=== PATIENT | female | born 1955 | race Caucasian/White ===

== ENCOUNTER → 2017-11-23 10:13 | Outpatient (CLI) | payer MEDICARE, SELFPAY ==
[2017-11-23 09:35] VITALS: BP 130/82; BMI 28.7
[2017-11-23 12:22] LABS: Hemoglobin A1c 5.8 % (4.2-6.3)
== END ==
PROVIDERS: Family Provider Internal Medicine; PCP Internal Medicine; Visit Provider Nurse Practitioner Family
DX: R73.9 Hyperglycemia, unspecified (principal)
CPT/HCPCS: 36415; 83036

== ENCOUNTER → 2017-11-25 12:10 | Outpatient (CLI) | payer MEDICARE, SELFPAY ==
[2017-11-23 09:35] VITALS: BP 130/82; BMI 28.7
--- NOTE | 2017-11-25 12:12 | US_ITS ---
STUDY: SUPERFICIAL ULTRASOUND - RIGHT FLANK. REASON FOR EXAM: Female, 62 years old. Palpable abnormality in the right flank. TECHNIQUE: A superficial ultrasound was performed with real-time and static gn-scale imaging. COMPARISON: None. FINDINGS: There is a 1.5 cm x 1.1 cm x 0.8 cm slightly echogenic well-defined nodule deep to the subcutaneous fat corresponding to the palpable abnormality. This most likely represents a small lipoma. US/Other Unlisted US Procedure IMPRESSION: The palpable abnormality most likely corresponds to a small lipoma. Electronically Signed: Tai Montana MD at 13:10 EST Tel [phone], Service support ,
== END ==
PROVIDERS: Family Provider Internal Medicine; PCP Internal Medicine; Visit Provider Nurse Practitioner Family
DX: R19.00 Intra-abdominal and pelvic swelling, mass and lump, unspecified site (principal)
CPT/HCPCS: 76999

== ENCOUNTER → 2018-01-20 09:34 | Outpatient (CLI) | payer MEDICARE, SELFPAY ==
--- NOTE | 2018-01-20 09:36 | CDU_ITS ---
Reason For Study: Carotid stenosis Rt. Velocities/BP Lt. Velocities/BP Prox CCA 69.2/14.7 cm/sec. Prox CCA 66.8/18.2 cm/sec. Mid CCA 66.8/19.3 cm/sec. Mid CCA 65.1/17.6 cm/sec. Dist CCA 55.1/15.2 cm/sec. Dist CCA 56.9/20.5 cm/sec. Prox ICA 63.3/19.9 cm/sec. Prox ICA 58.6/22.9 cm/sec. Mid ICA 57.0/20.7 cm/sec. Mid ICA 79.7/30.5 cm/sec. Dist ICA 45.2/19.1 cm/sec. Dist ICA 79.2/18.2 cm/sec. Rt. ICA/CCA = .95. Lt. ICA/CCA = 1.2. Prox ECA 87.3/14.5 cm/sec. Prox ECA 119.0/18.9 cm/sec. Rt. Vert. 49.8/16.4 cm/sec. Lt. Vert. 45.1/15.2 cm/sec. Right Extracranial There is intimal thickening but no significant atherosclerotic plaque noted in the right common carotid artery. There is heterogeneous, irregular atherosclerotic plaque noted in the right internal carotid artery. There is intimal thickening but no significant atherosclerotic plaque noted in the right external carotid artery. Antegrade flow is noted in the right vertebral artery. Left Extracranial There is intimal thickening but no significant atherosclerotic plaque noted in the left common carotid artery. There is heterogeneous, irregular atherosclerotic plaque noted in the left internal carotid artery. There is heterogeneous, irregular atherosclerotic plaque noted in the left external carotid artery. Antegrade flow is noted in the left vertebral artery. Procedure Carotid Duplex 36826. Exam performed in department. Interpretation Summary Mild (<50%) stenosis right extracranial internal carotid. Mild (<50%) stenosis left extracranial internal carotid. Flow within the vertebral arteries is antegrade bilaterally. Ordering Physician: REMI DESAI Referring Physician: Mayra Fallon Performed By: Tiki Shah RVT
--- NOTE | 2018-01-20 09:36 | ECHOCS_ITS ---
Reason For Study: CAD/ASHD Procedure This was a 2D Doppler, Color Flow transthoracic echocardiogram. Exam performed in department. Left Ventricle Moderate eccentric left ventricular hypertrophy. The estimated ejection fraction is 70 %. Stage 1 diastolic dysfunction. No regional wall motion abnormalities noted. Right Ventricle Normal size and thickness. ICD or pacer leads identified within the right ventricle. Normal systolic function. Atria Normal left atrium. Normal right atrium. Normal atrial septum. Mitral Valve The mitral valve is structurally normal. No prolapse or stenosis seen. Trivial mitral valve insufficiency. Tricuspid Valve Normal tricuspid valve. Mild (1+) tricuspid valve insufficiency. Right ventricular systolic pressure estimated to be 28 mmHg. Aortic Valve Peak aortic valve gradient 21 mmHg. Mean aortic valve gradient 12 mmHg. Bioprosthetic aortic valve. Pulmonic Valve Normal pulmonic valve. Trivial pulmonic valve insufficiency. Great Vessels Mildly dilated aortic root. Mild atherosclerosis of the aortic arch. Normal inferior vena cava. Inferior vena cava collapse with sniff. Pericardium/Pleural No pericardial effusion. Medication 22 gauge I.V. with prn adaptor inserted into right arm. Diluted definity 2ml given slow IV push to enhance endocardial definition. MMode/2D Measurements & Calculations LVIDd: 3.5 cm IVSd: 1.4 cm LVOT diam: 2.0 cm LVIDs: 2.1 cm LVPWd: 1.5 cm LVOT area: 3.0 cm2 RVDd: 2.8 cm FS: 38.3 % Ao root diam: 3.0 cm LAV(MOD-bp): 33.5 ml LA A4 area: 13.8 cm2 LAV(MOD-bp) Indexed: 20.6 ml/m2 LAV(MOD-sp2): 36.1 ml LAV(MOD-sp4): 31.4 ml RA A4 area: 9.0 cm2 Time Measurements MV dec time: 0.39 sec Doppler Measurements & Calculations MV E max les: 68.5 cm/sec Lat Peak E' Les: 9.2 cm/sec Med Peak E' Les: 5.0 cm/sec MV A max les: 101.9 cm/sec E/E' lat: 7.4 E/E' med: 13.6 MV E/A: 0.67 Ao V2 max: 224.5 cm/sec LV V1 max: 78.4 cm/sec SV(LVOT): 58.9 ml Ao max P.5 mmHg LV V1 max P.5 mmHg Ao V2 mean: 166.8 cm/sec LV V1 mean P.5 mmHg Ao mean P.4 mmHg LV V1 mean: 58.1 cm/sec Ao V2 VTI: 53.0 cm LV V1 VTI: 19.6 cm MINDI(I,D): 1.1 cm2 MINDI(V,D): 1.0 cm2 PA V2 max: 92.3 cm/sec TR max les: 243.4 cm/sec TR max P.7 mmHg Interpretation Summary The estimated ejection fraction is 70 %. Stage 1 diastolic dysfunction. Trivial mitral valve insufficiency. Mild (1+) tricuspid valve insufficiency. Right ventricular systolic pressure estimated to be 28 mmHg. Normal appearing bioprosthetic AVR with normal gradients. Compared to echo report dated 02/05/2011, no appreciable changes noted. Resting intracavitary gradient of 25 mm Hg. The study was technically difficult. Contrast injection was performed. Ordering Physician: REMI DESAI Referring Physician: LION SUAREZ Performed By: Taya Winter RDCS
== END ==
PROVIDERS: Family Provider Internal Medicine; PCP Internal Medicine; Visit Provider Internal Medicine Interventional Cardiology
DX: I25.10 Atherosclerotic heart disease of native coronary artery without angina pectoris (principal); E78.5 Hyperlipidemia, unspecified; I11.0 Hypertensive heart disease with heart failure; I50.9 Heart failure, unspecified; I65.23 Occlusion and stenosis of bilateral carotid arteries; I35.0 Nonrheumatic aortic (valve) stenosis; Z95.810 Presence of automatic (implantable) cardiac defibrillator
CPT/HCPCS: 93306; 93880; Q9957; A4216; C8929

== ENCOUNTER → 2018-06-27 09:28 | Outpatient (CLI) | payer MEDICARE, SELFPAY ==
[2018-06-27 10:25] LABS: Absolute Lymphocyte Count 2.72 X10^3/ul (0.83-4.51); Absolute Neutrophil Count 5.3 X10^3/uL (2.0-7.7); Basophil# 0.01 X10^3/uL; Basophil% 0.1 % (0-1); Eosinophil# 0.05 X10^3/uL; Eosinophils% 0.6 % (0-5); Hematocrit 42.2 % (37-47); Hemoglobin 13.8 g/dl (12.0-15.0); Lymphocyte # 2.72 X10^3/ul (4.0); Lymphocyte % 30.9 % (19-41); Mean Corp Hgb Conc 32.7 g/gl (32-36); Mean Corpuscular Hgb 28.5 pg (27.0-32.0); Mean Platelet Vol. 9.8 fl (6.2-12.0); Monocyte# 0.65 X10^3/uL; Monocyte% 7.4 % (0-10); Neutrophil # 5.34 X10^3/uL (2.7-7.7); Neutrophil % 60.8 % (47-70); Platelet Count 324 K/mm3 (150-450); RBC Distribution Width CV 13.6 % (11.6-14.6); RBC Distribution Width SD 43.2 fl (35.1-43.9); Red Blood Count 4.85 M/mm3 (4.2-5.4); White Blood Count 8.8 K/mm3 (4.4-11.0)
[2018-06-27 10:39] LABS: POSITIVE COUNT NO; POSITIVE DIFFERENTIAL NO; POSITIVE MORPHOLOGY NO
[2018-06-27 10:43] LABS: ALB/GLOB Ratio 1.2 RATIO (0.9-2.4); AST(SGOT) 10 U/L (15-37); Alanine Aminotransfer ALT/SGPT 19 U/L (13-56); Albumin, Serum 4.1 g/dL (3.2-5.0); Alkaline Phosphatase 75 U/L (45-117); Anion Gap 13 (5-15); BUN 16 mg/dL (7-18); BUN/Creat Ratio 20.6 RATIO (10-20); Calcium,Total 8.4 mg/dL (8.5-10.1); Chloride 99 mmol/L (98-107); Cholesterol 157 mg/dL (200); Creatinine, Serum 0.78 mg/dL (0.55-1.02); EST Glomerular Filtration Rate 79 mL/min (>60); Est Glom Filt Rate - Afr Amer 96 mL/min (>60); Globulin 3.3 g/dL (2.2-4.2); Glucose 112 mg/dL (74-106); High Density Lipoprotein 57 mg/dL; Potassium 3.3 mmol/L (3.5-5.1); Protein, Total 7.4 g/dL (6.4-8.2); Sodium Level 143 mmol/L (136-145); Triglycerides 164 mg/dL; Very Low Density Lipoprotein 33 mg/dL (5-40)
== END ==
PROVIDERS: Family Provider Internal Medicine; PCP Internal Medicine; Visit Provider Internal Medicine
DX: I25.10 Atherosclerotic heart disease of native coronary artery without angina pectoris (principal); I10 Essential (primary) hypertension
CPT/HCPCS: 36415; 80053; 80061; 85025

== ENCOUNTER → 2018-07-15 08:53 | Outpatient (CLI) | payer MEDICARE, SELFPAY ==
[2018-07-15 10:11] LABS: Anion Gap 8 (5-15); BUN 11 mg/dL (7-18); BUN/Creat Ratio 13.3 RATIO (10-20); Calcium,Total 8.6 mg/dL (8.5-10.1); Chloride 103 mmol/L (98-107); Creatinine, Serum 0.83 mg/dL (0.55-1.02); EST Glomerular Filtration Rate 74 mL/min (>60); Est Glom Filt Rate - Afr Amer 89 mL/min (>60); Glucose 124 mg/dL (74-106); Potassium 4.4 mmol/L (3.5-5.1); Sodium Level 142 mmol/L (136-145)
[2018-07-15 10:19] LABS: Hemoglobin A1c 6.2 % (4.2-6.3)
== END ==
PROVIDERS: Family Provider Internal Medicine; PCP Internal Medicine; Referring Provider Internal Medicine; Visit Provider Internal Medicine
DX: I10 Essential (primary) hypertension (principal); E87.6 Hypokalemia; R73.03 Prediabetes
CPT/HCPCS: 36415; 80048; 83036

== ENCOUNTER → 2018-12-12 09:02 | Outpatient (CLI) | payer MEDICARE, SELFPAY ==
[2018-11-14 09:52] VITALS: BMI 29.0
[2018-12-12 10:26] LABS: Anion Gap 7 (5-15); BUN 13 mg/dL (7-18); BUN/Creat Ratio 14.2 RATIO (10-20); Calcium,Total 8.7 mg/dL (8.5-10.1); Chloride 102 mmol/L (98-107); Creatinine, Serum 0.91 mg/dL (0.55-1.02); EST Glomerular Filtration Rate 66 mL/min (>60); Est Glom Filt Rate - Afr Amer 80 mL/min (>60); Glucose 105 mg/dL (74-106); Potassium 4.2 mmol/L (3.5-5.1); Sodium Level 136 mmol/L (136-145)
== END ==
PROVIDERS: Family Provider Internal Medicine; PCP Internal Medicine; Referring Provider Internal Medicine; Visit Provider Internal Medicine
DX: I10 Essential (primary) hypertension (principal)
CPT/HCPCS: 36415; 80048

== ENCOUNTER → 2018-12-19 09:55 | Outpatient (CLI) | payer MEDICARE, SELFPAY ==
[2018-12-14 13:50] VITALS: BMI 29.0
--- NOTE | 2018-12-19 09:59 | RAD_ITS ---
STUDY: X-RAY - LEFT SHOULDER REASON FOR EXAM: Female, 63 years old. Pain. TECHNIQUE: 4 view(s) of the shoulder. COMPARISON: None. FINDINGS: There is mild degenerative arthrosis of the glenohumeral articulation. There are degenerative changes of the acromioclavicular joint. Normal acromion. Normal humeral head and visualized proximal humerus. The soft tissue structures are unremarkable. There are sternotomy wires in place. There is a cardiac pacer device in place. RAD/Shoulder min 2 Views IMPRESSION: Degenerative changes. Electronically Signed: Caro Orosco MD at 20:54 EST Tel , Service support ,
== END ==
PROVIDERS: Family Provider Internal Medicine; PCP Internal Medicine; Referring Provider Internal Medicine; Visit Provider Internal Medicine
DX: M25.512 Pain in left shoulder (principal)
CPT/HCPCS: 73030

== ENCOUNTER 2019-01-03 08:30 | Outpatient (RCR) | payer MEDICARE, SELFPAY ==
[2018-12-14 13:50] VITALS: BMI 29.0
--- NOTE | 2018-12-27 09:32 | HP.PTEVAL_ITS ---
Patient's Visit Information ZORA MATUTE is a 63 year old F referred to Physical Therapy by Mayra Fallon MD with a diagnosis of PAIN LEFT SHOULDER,OTHER SHOULDER LESION. Date of Evaluation: 12/27/18 Physical Therapist: Miki Rooney PT, Cert MDT, OCS - Visit Plan Frequency: 2x /Week Duration: 8WEEKS Plan: PACEMAKER -NO ESTIM. INTIATED ROM-AROM/PROM/AROM/MANUAL THERAPY MOBS G-H JOINT GR 1-3 - Subjective Findings: This 63 y/o female presents to physical therapy with left soulder pain. Patient has had shoulder pain for 4 months incidous onset no mechanism of injury. Patient left shoulder pain grossly ache ocassionally ache. Patient affects ability to raise arm OH above 90 degrees impairs self hygine,housework . Patient symptoms refer to lateral deltoid. Patient pain affects sleeping. Denies parathesia/tingling. Seen DR x-rays OA. Provide MEDS. Patient no trama. Patient pain affects QOL and function.Patient has multiple comorbities to include PRECAUTION: PACEMAKER. SOCAIL: single. VOCATION: disablity - Pain Left Shoulder Pain Intensity (Out of 10): 7 Pain Intensity Range: 10 - Objective POSTURE: mild foward posture. PALPATION: tender AC. NEURO: intact. AROM: shoulder flexion 85 degrees,abduction 80 degrees with substitution. PROM: shoulder flexion /abd 95 degrees,ER 45 degrees,IR 60 degrees. ACCESSORY MOTION: MOD capsuar tightness. SCAPULAR-HUMERAL RYTHUM: < one to one. MMT: RTC 4-/5 pain with supraspiantous,deltoid 3/5 - Special Tests L Shoulder External Rotation Lag Test - RC Tear: Negative L Shoulder Supine Impingement Test - RC Tear: Negative L Shoulder Lift Off Test - Subscapular Tear: Negative L Shoulder Drop Sign - IS Test: Negative L Shoulder Empty Can - SS: Negative L Shoulder Belly Press - SupScap: Positive L Shoulder Neer - Impingement: Positive L Shoulder Harrison Jose - Impingement: Positive L Shoulder Shrug Sign - OA/Adhesive Capsulitis: Positive - Goals Goal 1:: Patient to be Independant with HEP Goal Time Frame: 6-8 Weeks Goal 2:: Patient to decrease shoulder pain by 50% or greater to improve function. Goal Time Frame: 6-8 Weeks Goal 3:: Patient to improve AROM shoulder flexion /abduction 140 degrees,ER 80 degrees for ADL'S above 90 degrees. Goal Time Frame: 6-8 Weeks Goal 4:: Patient to increase strength RTC 4/5 ,AND DELTOID 4-/5 to improve function Goal Time Frame: 6-8 Weeks Goal 5:: Patient to improve DASH quick score 5-8 points to improve QOL. Goal Time Frame: 6-8 Weeks - Rehabilitation Potential Physical Therapy Diagnosis: This patient has multiple comorbities cardiac with pacemaker along with poor ROM shoulder,decrease strength,pain impairs activities above 90 for ADL'S Rehabilitation Potential: Good - Anticipated Interventions Patient/Client Instruction: Educate patient on: Condition, Plan of Care For the Purpose of:: To decrease pain, To increase ROM, To improve muscle performance and motor function, To improve ability to perform ADL's, To increase tolerance to activity/condition/position, To improve performance and independence with ADL's, To improve ability of physical actions for h ome/community/work/leisure, To improve health of tissue, To decrease soft tissue restriction, To increase flexibility/ROM, To improve ability to perform tasks related to life management Therapeutic Exercise to Include: Strength training, Postural training, Flexibilty training, Passive ROM, Active ROM, Scapular Strength/Stabilization Comment: SHOULDER For the Purpose of:: To decrease pain, To increase ROM, To increase oxygenation perfusion, To improve ability to perform ADL's, To increase tolerance to activity/condition/position, To improve ability of physical actions for home/community/work/leisure, To improve health of tissue, To decrease soft tissue restriction, To assume or resume ADL's, To improve ability to perform tasks related to life management, To improve tolerance to ADL's Manual Therapy Techniques to Include: Mobilization, Passive ROM Comment: G-H GRADE1-3 For the Purpose of:: To decrease pain, To increase ROM, To improve nutrient delivery to tissue, To increase oxygenation perfusion, To improve health of tissue, To decrease soft tissue restriction, To increase flexibility/ROM Cryotherapy (ice pack, ice massage): Yes Thermo therapy (hot pack): Yes Ultrasound (thermal/non thermal): Yes For the Purpose of:: To decrease pain, To decrease swelling/inflammation, To increase ROM, To improve nutrient delivery to tissue, To increase oxygenation perfusion, To improve health of tissue, To decrease soft tissue restriction Thank you for the opportunity to evaluate your patient. For Medicare and Medicare HMO plans, please review the plan of care and approve it. It will need to be FAXED BACK to us at [phone] for Medicare purposes. For Medicare only, by signing this I certify the plan of care. Please let me know if there are questions or concerns regarding this plan of care. Physician Signature: Date:
--- NOTE | 2019-06-13 12:34 | HP.PT.NRP ---
HP - Discharge Summary (1) - Patient Information ZORA MATUTE was seen in my office for initial evaluation on 12/27/18. The following Plan of Care was established for this patient: Initial Frequency: 2x /Week Initial Duration: 8WEEKS - Anticipated Interventions Patient/Client Instruction: Educate patient on: Condition, Plan of Care For the Purpose of:: To decrease pain, To increase ROM, To improve muscle performance and motor function, To improve ability to perform ADL's, To increase tolerance to activity/condition/position, To improve performance and independence with ADL's, To improve ability of physical actions for home/community/work/leisure, To improve health of tissue, To decrease soft tissue restriction, To increase flexibility/ROM, To improve ability to perform tasks related to life management Therapeutic Exercise to Include: Strength training, Postural training, Flexibilty training, Passive ROM, Active ROM, Scapular Strength/Stabilization For the Purpose of:: To decrease pain, To increase ROM, To increase oxygenation perfusion, To improve ability to perform ADL's, To increase tolerance to activity/condition/position, To improve ability of physical actions for home/community/work/leisure, To improve health of tissue, To decrease soft tissue restriction, To assume or resume ADL's, To improve ability to perform tasks related to life management, To improve tolerance to ADL's Manual Therapy Techniques to Include: Mobilization, Passive ROM Comment: G-H GRADE1-3 For the Purpose of:: To decrease pain, To increase ROM, To improve nutrient delivery to tissue, To increase oxygenation perfusion, To improve health of tissue, To decrease soft tissue restriction, To increase flexibility/ROM Cryotherapy (ice pack, ice massage): Yes Thermo therapy (hot pack): Yes Ultrasound (thermal/non thermal): Yes For the Purpose of:: To decrease pain, To decrease swelling/inflammation, To increase ROM, To improve nutrient delivery to tissue, To increase oxygenation perfusion, To improve health of tissue, To decrease soft tissue restriction This patient was last seen in our office 01/03/19. Pertinent comments regarding their Physical therapy will appear below: Patient was seen for PT for left shoulder pain focusing on HEP for ROM ,patient progressed well,thus is d/c. At this point I will be discontinuing this patient from physical therapy. I would be happy to see this patient again in the future if found appropriate by the physician. Thank you! Miki Androsik, PT, Cert MDT, OCS
== END 2019-01-03 19:00 | disposition home or self-care (01) ==
LOC: PT 08:30
PROVIDERS: Family Provider Internal Medicine; PCP Internal Medicine; Referring Provider Internal Medicine; Visit Provider Internal Medicine
DX: M25.512 Pain in left shoulder (principal); M75.80 Other shoulder lesions, unspecified shoulder
CPT/HCPCS: 97110; 97140; 97162

== ENCOUNTER → 2019-01-31 08:41 | Outpatient (CLI) | payer MEDICARE, SELFPAY ==
[2018-12-14 13:50] VITALS: BMI 29.0
[2019-01-31 13:17] LABS: Anion Gap 3 (5-15); BUN 25 mg/dL (7-18); BUN/Creat Ratio 17.7 RATIO (10-20); Calcium,Total 8.5 mg/dL (8.5-10.1); Chloride 101 mmol/L (98-107); Creatinine, Serum 1.41 mg/dL (0.55-1.02); EST Glomerular Filtration Rate 40 mL/min (>60); Est Glom Filt Rate - Afr Amer 48 mL/min (>60); Glucose 96 mg/dL (74-106); Potassium 4.2 mmol/L (3.5-5.1); Sodium Level 134 mmol/L (136-145)
== END ==
PROVIDERS: Family Provider Internal Medicine; PCP Internal Medicine; Visit Provider Internal Medicine
DX: I10 Essential (primary) hypertension (principal); Z51.81 Encounter for therapeutic drug level monitoring
CPT/HCPCS: 36415; 80048

== ENCOUNTER → 2019-02-13 | Outpatient (CLI) | payer MEDICARE, SELFPAY ==
[2019-02-13 09:30] VITALS: BMI 29.0
[2019-02-13 13:01] LABS: Anion Gap 8 (5-15); BUN 26 mg/dL (7-18); BUN/Creat Ratio 15.6 RATIO (10-20); Chloride 99 mmol/L (98-107); Creatinine, Serum 1.67 mg/dL (0.55-1.02); EST Glomerular Filtration Rate 33 mL/min (>60); Est Glom Filt Rate - Afr Amer 40 mL/min (>60); Glucose 114 mg/dL (74-106); Sodium Level 135 mmol/L (136-145)
== END | disposition home or self-care (01) ==
LOC: BIMLAB 09:44
PROVIDERS: Family Provider Internal Medicine; PCP Internal Medicine; Visit Provider Internal Medicine
DX: N17.9 Acute kidney failure, unspecified (principal)
CPT/HCPCS: 36415; 80048

== ENCOUNTER → 2019-02-15 | Outpatient (CLI) | payer MEDICARE, SELFPAY ==
[2019-02-13 09:49] VITALS: BMI 29.0
[2019-02-15 12:00] LABS: Mucous, Urine 0 SEEN /hpf (<or=2+); Red Blood Cells-Urine 0 SEEN /hpf (0-5)
[2019-02-15 14:15] LABS: Color, Urine Yellow (Yellow); Glucose, Dipstick Normal (Normal); Ketone-Dipstick Negative (Negative); Leukocyte Esterase-Dipstick 25 /ul (Negative); Nitrite-Dipstick Negative (Negative); Occult Blood-Urine Negative /ul (Negative); Protein-Dipstick 15 mg/dl (Negative); Urine Bilirubin Dipstick Negative (Negative); Urine Clarity Sl. Cloudy (Clear); Urine Urobilinogen 1 mg/dl (Normal); Urine pH 6.5 (5.0 - 8.0)
[2019-02-15 14:25] LABS: Bacteria 1+ /hpf (None Seen); Squamous Epithelial Cells - UA 0-5 SEEN /hpf (5-10); White Blood Cells 0-5 SEEN /hpf (0-5)
[2019-02-15 14:38] LABS: Microalbumin,Random Urine 19.4 mg/L (NO RANGE EST.); Microalbumin:Creatinine Ratio 18.3 mg/g CRE (<30 mg/g CRE); Urine Sodium 48 mmol/L (Not Establ.)
[2019-02-15 14:39] LABS: Anion Gap 4 (5-15); BUN 18 mg/dL (7-18); BUN/Creat Ratio 14.5 RATIO (10-20); Calcium,Total 9.1 mg/dL (8.5-10.1); Chloride 100 mmol/L (98-107); Creatinine, Serum 1.24 mg/dL (0.55-1.02); EST Glomerular Filtration Rate 46 mL/min (>60); Est Glom Filt Rate - Afr Amer 56 mL/min (>60); Glucose 79 mg/dL (74-106); Potassium 3.9 mmol/L (3.5-5.1); Sodium Level 135 mmol/L (136-145)
== END | disposition home or self-care (01) ==
LOC: BIMLAB 11:59
PROVIDERS: Nurse Practitioner Family; Family Provider Internal Medicine; PCP Internal Medicine; Visit Provider Internal Medicine
DX: I10 Essential (primary) hypertension (principal); N17.9 Acute kidney failure, unspecified
CPT/HCPCS: 36415; 80048; 81001; 82043; 82570; 84300

== ENCOUNTER → 2019-02-24 | Outpatient (CLI) | payer MEDICARE, SELFPAY ==
[2019-02-13 09:49] VITALS: BMI 29.0
--- NOTE | 2019-02-24 08:41 | RDU_ITS ---
Reason For Study: GARRICK, HTN Right Renal Artery Left Renal Artery Right renal artery ostium 115/35 Left renal artery ostium 118/23 RSV/EDV. PSV/EDV. Right renal artery proximal 114/25 Left renal artery proximal PSV/EDV PSV/EDV. 207/67 . Right renal artery mid 125/32 Left renal artery mid 238/73 PSV/EDV. PSV/EDV . Right renal artery distal 102/29 Left renal artery distal 68/19 PSV/EDV. PSV/EDV. Right RAR 2.5. Left RAR 4.76. Right Renal Parenchyma Left Renal Parenchyma Upper Pole Medula 23/9 PSV/EDV. Left upper pole medulla 20/6 Right upper pole medulla EDR 0.39 . PSV/EDV . Right upper pole medulla R.I. Left upper pole medulla EDR 0.30 . 0.62 . Left upper pole medulla R.I. 0.68 . Upper [place] Cortx 17/6 PSV/EDV. UP Cortex 15/5 PSV/EDV. Right upper pole cortex EDR 0.35 . Left upper pole cortex EDR 0.33 . Right upper pole cortex R.I. 0.67 . Left upper pole cortex R.I. 0.65 . Right lower Pole medulla 30/10 Left lower Pole medulla 16/6 PSV/EDV . PSV/EDV . Right lower pole medulla EDR 0.33 . Left lower pole medulla EDR 0.38 . Right lower pole medulla R.I. Left lower pole medulla R.I. 0.61 . 0.67 . Lower Pole Cortx 15/6 PSV/EDV. Lower Pole Cortex 19/6 PSV/EDV. Left lower pole cortex EDR 0.40 . Right lower pole cortex EDR 0.32 . Left lower pole cortex R.I. 0.62 . Right lower pole cortex R.I. 0.66 . Left Renal Hilar Right Renal Hilar LT Hilar avg 64/18 PSV/EDV . Right Hilar avg 39/14 PSV/EDV. Left hilar acceleration time 90 Right hilar acceleration time 70 m/sec. m/sec. Left Renal Dimensions Right Renal Dimensions Left kidney size 10.66 cm . Right kidney size 10.07 cm . Left cortical dimension 1.31 cm . Right cortical dimension 1.26 cm . Aorta Proximal abdominal aorta 1.43cm x 1.49 cm . Proximal abdominal aorta peak systolic velocity is 50 cm/sec . Distal abdominal aorta 1.23cm x 1.23 cm . Distal abdominal aorta peak systolic velocity is 64 cm/sec . Interpretation Summary <60% stenosis right renal artery Right renal length 10.07cm 60-99% stenosis left renal artery Left renal length 10.66cm Normal aorta 1.43 x 1.49cm with normal flow rate. Normal renal resistivity indices suggesting normal renal parenchymal function--clinical correlation would be appropriate Ordering Physician: Mayra Fallon Referring Physician: Mayra Fallon Performed By: Essie Viera, RDCS, RVT
== END | disposition home or self-care (01) ==
LOC: CVS 08:40
PROVIDERS: Family Provider Internal Medicine; PCP Internal Medicine; Referring Provider Internal Medicine; Visit Provider Internal Medicine
DX: I10 Essential (primary) hypertension (principal); N17.9 Acute kidney failure, unspecified
CPT/HCPCS: 93975

== ENCOUNTER → 2019-03-17 | Outpatient (CLI) | payer MEDICARE, SELFPAY ==
[2019-02-13 09:49] VITALS: BMI 29.0
[2019-03-17 13:02] LABS: Anion Gap 9 (5-15); BUN 22 mg/dL (7-18); BUN/Creat Ratio 16.9 RATIO (10-20); Calcium,Total 8.9 mg/dL (8.5-10.1); Chloride 94 mmol/L (98-107); EST Glomerular Filtration Rate 44 mL/min (>60); Est Glom Filt Rate - Afr Amer 53 mL/min (>60); Glucose 111 mg/dL (74-106); Potassium 4.9 mmol/L (3.5-5.1); Sodium Level 131 mmol/L (136-145)
== END | disposition home or self-care (01) ==
LOC: BIMLAB 08:50
PROVIDERS: Family Provider Internal Medicine; PCP Internal Medicine; Visit Provider Internal Medicine
DX: N17.9 Acute kidney failure, unspecified (principal)
CPT/HCPCS: 36415; 80048

== ENCOUNTER → 2019-04-04 | Outpatient (CLI) | payer MEDICARE, SELFPAY ==
[2019-02-13 09:49] VITALS: BMI 29.0
[2019-04-04 12:34] LABS: Anion Gap 8 (5-15); BUN 25 mg/dL (7-18); BUN/Creat Ratio 16.8 RATIO (10-20); Calcium,Total 8.9 mg/dL (8.5-10.1); Chloride 94 mmol/L (98-107); Creatinine, Serum 1.49 mg/dL (0.55-1.02); EST Glomerular Filtration Rate 37 mL/min (>60); Est Glom Filt Rate - Afr Amer 45 mL/min (>60); Glucose 107 mg/dL (74-106); Potassium 4.9 mmol/L (3.5-5.1); Sodium Level 131 mmol/L (136-145)
== END | disposition home or self-care (01) ==
LOC: BIMLAB 08:46
PROVIDERS: Family Provider Internal Medicine; PCP Internal Medicine; Visit Provider Family Medicine
DX: R73.03 Prediabetes (principal)
CPT/HCPCS: 36415; 80048

== ENCOUNTER → 2019-05-17 | Outpatient (CLI) | payer MEDICARE, SELFPAY ==
[2019-05-17 13:19] VITALS: BMI 28.1
[2019-05-18 09:11] LABS: Bacteria 0 SEEN /hpf (None Seen); Mucous, Urine 0 SEEN /hpf (<or=2+); Red Blood Cells-Urine 0 SEEN /hpf (0-5)
[2019-05-18 12:52] LABS: Color, Urine Yellow (Yellow); Glucose, Dipstick Normal (Normal); Ketone-Dipstick Negative (Negative); Leukocyte Esterase-Dipstick Negative /ul (Negative); Nitrite-Dipstick Negative (Negative); Occult Blood-Urine Negative /ul (Negative); Protein-Dipstick Negative (Negative); Urine Bilirubin Dipstick Negative (Negative); Urine Clarity Clear (Clear); Urine Urobilinogen Normal (Normal); Urine pH 6.5 (5.0 - 8.0)
[2019-05-18 13:01] LABS: White Blood Cells 0-5 SEEN /hpf (0-5)
[2019-05-18 13:02] LABS: Squamous Epithelial Cells - UA 0-5 SEEN /hpf (5-10)
== END | disposition home or self-care (01) ==
LOC: BIMLAB 05-18 09:09
PROVIDERS: Family Provider Internal Medicine; PCP Internal Medicine; Visit Provider Nurse Practitioner Family
DX: M54.9 Dorsalgia, unspecified (principal)
CPT/HCPCS: 81001

== ENCOUNTER → 2019-05-23 | Outpatient (CLI) | payer MEDICARE, SELFPAY ==
[2019-05-23 09:51] VITALS: BMI 28.1
[2019-05-23 12:44] LABS: Hemoglobin A1c 5.7 % (4.2-6.3)
[2019-05-23 12:45] LABS: Anion Gap 8 (5-15); BUN 14 mg/dL (7-18); BUN/Creat Ratio 12.7 RATIO (10-20); Chloride 98 mmol/L (98-107); EST Glomerular Filtration Rate 53 mL/min (>60); Est Glom Filt Rate - Afr Amer 64 mL/min (>60); Glucose 88 mg/dL (74-106); Potassium 4.4 mmol/L (3.5-5.1); Sodium Level 133 mmol/L (136-145)
== END | disposition home or self-care (01) ==
LOC: BIMLAB 10:12
PROVIDERS: Nurse Practitioner Family; PCP Internal Medicine; Visit Provider Internal Medicine
DX: I10 Essential (primary) hypertension (principal); R73.03 Prediabetes
CPT/HCPCS: 36415; 80048; 83036

== ENCOUNTER → 2019-06-20 | Outpatient (CLI) | payer MEDICARE, SELFPAY ==
[2019-06-20 11:12] VITALS: BMI 27.5
[2019-06-20 12:35] LABS: Anion Gap 5 (5-15); BUN 23 mg/dL (7-18); BUN/Creat Ratio 17.8 RATIO (10-20); Calcium,Total 9.5 mg/dL (8.5-10.1); Chloride 98 mmol/L (98-107); Creatinine, Serum 1.29 mg/dL (0.55-1.02); EST Glomerular Filtration Rate 44 mL/min (>60); Est Glom Filt Rate - Afr Amer 53 mL/min (>60); Glucose 97 mg/dL (74-106); Potassium 4.4 mmol/L (3.5-5.1); Sodium Level 132 mmol/L (136-145)
== END | disposition home or self-care (01) ==
LOC: BIMLAB 11:23
PROVIDERS: PCP Internal Medicine; Visit Provider Internal Medicine
DX: I10 Essential (primary) hypertension (principal)
CPT/HCPCS: 36415; 80048

== ENCOUNTER → 2019-12-22 09:08 | Outpatient (CLI) | payer MEDICARE, MEDICAID, SELFPAY ==
[2019-12-22 08:57] VITALS: BMI 26.9
[2019-12-22 12:36] LABS: ALB/GLOB Ratio 1.1 RATIO (0.9-2.4); AST(SGOT) 15 U/L (15-37); Alanine Aminotransfer ALT/SGPT 19 U/L (13-56); Albumin, Serum 3.9 g/dL (3.2-5.0); Alkaline Phosphatase 79 U/L (45-117); Anion Gap 5 (5-15); BUN 14 mg/dL (7-18); BUN/Creat Ratio 14.2 RATIO (10-20); Calcium,Total 8.8 mg/dL (8.5-10.1); Chloride 106 mmol/L (98-107); Cholesterol 148 mg/dL (200); Creatinine, Serum 0.98 mg/dL (0.55-1.02); EST Glomerular Filtration Rate 60 mL/min (>60); Est Glom Filt Rate - Afr Amer 73 mL/min (>60); Globulin 3.5 g/dL (2.2-4.2); Glucose 94 mg/dL (74-106); High Density Lipoprotein 48 mg/dL; Potassium 4.1 mmol/L (3.5-5.1); Protein, Total 7.4 g/dL (6.4-8.2); Sodium Level 140 mmol/L (136-145); Triglycerides 143 mg/dL; Very Low Density Lipoprotein 29 mg/dL (5-40)
[2019-12-22 12:38] LABS: Absolute Lymphocyte Count 1.22 X10^3/uL (0.83-4.51); Absolute Neutrophil Count 3.3 X10^3/uL (2.0-7.7); Basophil# 0.03 X10^3/uL; Basophil% 0.6 % (0-1); Eosinophil# 0.14 X10^3/uL; Eosinophils% 2.8 % (0-5); Hematocrit 39.8 % (37-47); Hemoglobin 12.9 g/dL (12.0-15.0); Lymphocyte # 1.22 X10^3/ul (4.0); Lymphocyte % 24.1 % (19-41); Mean Corp Hgb Conc 32.4 g/dL (32-36); Mean Corpuscular Hgb 28.4 pg (27.0-32.0); Mean Corpuscular Volume 87.5 fL (81-99); Monocyte# 0.38 X10^3/uL; Monocyte% 7.5 % (0-10); NRBC Flagged by Analyzer 0 % (0-5); Neutrophil # 3.28 X10^3/uL (2.7-7.7); Neutrophil % 64.8 % (47-70); Platelet Count 254 K/mm3 (150-450); RBC Distribution Width CV 13.4 % (11.6-14.6); RBC Distribution Width SD 42.5 fl (35.1-43.9); Red Blood Count 4.55 M/mm3 (4.2-5.4); White Blood Count 5.1 K/mm3 (4.4-11.0)
== END ==
PROVIDERS: PCP Internal Medicine; Referring Provider Internal Medicine; Visit Provider Internal Medicine
DX: I10 Essential (primary) hypertension (principal); E78.5 Hyperlipidemia, unspecified; I25.10 Atherosclerotic heart disease of native coronary artery without angina pectoris; R73.03 Prediabetes
CPT/HCPCS: 36415; 80053; 80061; 83036; 85025

== ENCOUNTER → 2021-05-19 14:12 | Outpatient (CLI) | payer MEDICARE, SELFPAY ==
[2021-05-19 13:54] VITALS: BMI 26.9
[2021-05-19 15:06] LABS: Absolute Neutrophil Count 4.3 X10^3/uL (2.0-7.7); Basophil# 0.05 X10^3/uL; Basophil% 0.8 % (0-1); Eosinophil# 0.12 X10^3/uL; Eosinophils% 1.9 % (0-5); Hematocrit 39.2 % (37-47); Hemoglobin 12.9 g/dL (12.0-15.0); Lymphocyte % 24.8 % (19-41); Mean Corp Hgb Conc 32.9 g/dL (32-36); Mean Corpuscular Hgb 28.1 pg (27.0-32.0); Mean Corpuscular Volume 85.4 fL (81-99); Mean Platelet Vol. 9.7 fl (6.2-12.0); Monocyte# 0.39 X10^3/uL; NRBC Flagged by Analyzer 0 % (0-5); Neutrophil # 4.29 X10^3/uL (2.7-7.7); Neutrophil % 66.3 % (47-70); Platelet Count 251 K/mm3 (150-450); RBC Distribution Width CV 12.9 % (11.6-14.6); RBC Distribution Width SD 40.4 fl (35.1-43.9); Red Blood Count 4.59 M/mm3 (4.2-5.4); White Blood Count 6.5 K/mm3 (4.4-11.0)
[2021-05-19 16:02] LABS: ALB/GLOB Ratio 1.1 RATIO (0.9-2.4); AST(SGOT) 14 U/L (15-37); Alanine Aminotransfer ALT/SGPT 22 U/L (13-56); Alkaline Phosphatase 82 U/L (45-117); Anion Gap 4 (5-15); BUN 17 mg/dL (7-18); BUN/Creat Ratio 15.6 RATIO (10-20); Calcium,Total 8.3 mg/dL (8.5-10.1); Chloride 105 mmol/L (98-107); Cholesterol 158 mg/dL (200); Creatinine, Serum 1.09 mg/dL (0.55-1.02); EST Glomerular Filtration Rate 53 mL/min (>60); Est Glom Filt Rate - Afr Amer 64 mL/min (>60); Globulin 3.5 g/dL (2.2-4.2); Glucose 97 mg/dL (74-106); High Density Lipoprotein 44 mg/dL; Potassium 3.5 mmol/L (3.5-5.1); Protein, Total 7.5 g/dL (6.4-8.2); Sodium Level 137 mmol/L (136-145); Triglycerides 234 mg/dL; Very Low Density Lipoprotein 47 mg/dL (5-40)
== END ==
PROVIDERS: PCP Internal Medicine; Visit Provider Internal Medicine
DX: I10 Essential (primary) hypertension (principal)
CPT/HCPCS: 36415; 80053; 80061; 85025

== ENCOUNTER 2021-11-24 13:59 | Outpatient (CLI) | payer MEDICARE, MEDICAID, SELFPAY ==
[2021-11-24 15:15] LABS: Anion Gap 5 (5-15); BUN 14 mg/dL (7-18); BUN/Creat Ratio 12.1 RATIO (10-20); Calcium,Total 8.8 mg/dL (8.5-10.1); Chloride 103 mmol/L (98-107); Creatinine, Serum 1.16 mg/dL (0.55-1.02); EST Glomerular Filtration Rate 49 mL/min (>60); Est Glom Filt Rate - Afr Amer 60 mL/min (>60); Glucose 91 mg/dL (74-106); Potassium 3.9 mmol/L (3.5-5.1); Sodium Level 138 mmol/L (136-145)
[2021-11-24 15:18] LABS: Hemoglobin A1c 5.8 % (3.8-5.6)
== END 2021-11-24 23:59 | disposition home or self-care (01) ==
LOC: BIMLAB 14:00
PROVIDERS: PCP Internal Medicine; Referring Provider Internal Medicine; Visit Provider Internal Medicine
DX: I10 Essential (primary) hypertension (principal); R73.03 Prediabetes
CPT/HCPCS: 36415; 80048; 83036

== ENCOUNTER → 2022-05-27 | Outpatient (CLI) | payer MEDICARE, MEDICAID, SELFPAY ==
[2022-05-27 12:08] LABS: Absolute Lymphocyte Count 1.33 X10^3/uL (0.83-4.51); Absolute Neutrophil Count 4.2 X10^3/uL (2.0-7.7); Basophil# 0.06 X10^3/uL; Eosinophil# 0.14 X10^3/uL; Eosinophils% 2.3 % (0-5); Hematocrit 42.9 % (37-47); Hemoglobin 14.5 g/dL (12.0-15.0); Lymphocyte # 1.33 X10^3/ul (0.83-4.51); Lymphocyte % 21.4 % (19-41); Mean Corp Hgb Conc 33.8 g/dL (32-36); Mean Corpuscular Hgb 29.7 pg (27.0-32.0); Mean Corpuscular Volume 87.7 fL (81-99); Mean Platelet Vol. 9.7 fl (6.2-12.0); Monocyte# 0.42 X10^3/uL; Monocyte% 6.8 % (0-10); NRBC Flagged by Analyzer 0 % (0-5); Neutrophil # 4.24 X10^3/uL (2.7-7.7); Neutrophil % 68.2 % (47-70); Platelet Count 279 K/mm3 (150-450); RBC Distribution Width CV 13.1 % (11.6-14.6); RBC Distribution Width SD 42.1 fl (35.1-43.9); Red Blood Count 4.89 M/mm3 (4.2-5.4); White Blood Count 6.2 K/mm3 (4.4-11.0)
[2022-05-27 12:35] LABS: Hemoglobin A1c 5.9 % (3.8-5.6)
[2022-05-27 12:40] LABS: ALB/GLOB Ratio 1.2 RATIO (0.9-2.4); AST(SGOT) 15 U/L (15-37); Alanine Aminotransfer ALT/SGPT 22 U/L (13-56); Albumin, Serum 4.2 g/dL (3.2-5.0); Alkaline Phosphatase 77 U/L (45-117); Anion Gap 3 (5-15); BUN 18 mg/dL (7-18); BUN/Creat Ratio 16.1 RATIO (10-20); Calcium,Total 9.6 mg/dL (8.5-10.1); Chloride 102 mmol/L (98-107); Cholesterol 157 mg/dL (200); Creatinine, Serum 1.12 mg/dL (0.55-1.02); EST Glomerular Filtration Rate 51 mL/min (>60); Est Glom Filt Rate - Afr Amer 62 mL/min (>60); Globulin 3.6 g/dL (2.2-4.2); Glucose 108 mg/dL (74-106); High Density Lipoprotein 52 mg/dL; Potassium 4.9 mmol/L (3.5-5.1); Protein, Total 7.8 g/dL (6.4-8.2); Sodium Level 138 mmol/L (136-145); Triglycerides 195 mg/dL; Very Low Density Lipoprotein 39 mg/dL (5-40)
== END | disposition home or self-care (01) ==
LOC: BIMLAB 09:55
PROVIDERS: PCP Internal Medicine; Referring Provider Internal Medicine; Visit Provider Internal Medicine
DX: I10 Essential (primary) hypertension (principal); R73.03 Prediabetes
CPT/HCPCS: 36415; 80053; 80061; 83036; 85025

== ENCOUNTER → 2022-07-07 | Outpatient (CLI) | payer MEDICARE, MEDICAID, SELFPAY | END | disposition home or self-care (01) | LOC: LABSPEC 14:03 | PROVIDERS: PCP Internal Medicine; Visit Provider Nurse Practitioner Family | DX: U07.1 COVID-19 (principal); J02.9 Acute pharyngitis, unspecified | CPT/HCPCS: 87635; U0003; U0005 ==

== ENCOUNTER → 2022-12-25 | Outpatient (CLI) | payer MEDICARE, MEDICAID, SELFPAY ==
[2022-12-25 12:26] LABS: Absolute Lymphocyte Count 1.11 X10^3/uL (0.83-4.51); Absolute Neutrophil Count 3.8 X10^3/uL (2.0-7.7); Basophil# 0.06 X10^3/uL; Basophil% 1.1 % (0-1); Eosinophil# 0.16 X10^3/uL; Eosinophils% 2.9 % (0-5); Hematocrit 41.3 % (37-47); Hemoglobin 13.5 g/dL (12.0-15.0); Lymphocyte # 1.11 X10^3/ul (0.83-4.51); Lymphocyte % 20.3 % (19-41); Mean Corp Hgb Conc 32.7 g/dL (32-36); Mean Corpuscular Hgb 28.9 pg (27.0-32.0); Mean Corpuscular Volume 88.4 fL (81-99); Mean Platelet Vol. 9.9 fl (6.2-12.0); Monocyte# 0.34 X10^3/uL; Monocyte% 6.2 % (0-10); NRBC Flagged by Analyzer 0 % (0-5); Neutrophil # 3.79 X10^3/uL (2.7-7.7); Neutrophil % 69.1 % (47-70); Platelet Count 265 K/mm3 (150-450); RBC Distribution Width CV 13.5 % (11.6-14.6); RBC Distribution Width SD 43.8 fl (35.1-43.9); Red Blood Count 4.67 M/mm3 (4.2-5.4); White Blood Count 5.5 K/mm3 (4.4-11.0)
[2022-12-25 13:12] LABS: ALB/GLOB Ratio 1.2 RATIO (0.9-2.4); AST(SGOT) 21 U/L (15-37); Alanine Aminotransfer ALT/SGPT 27 U/L (13-56); Albumin, Serum 4.1 g/dL (3.2-5.0); Alkaline Phosphatase 85 U/L (45-117); Anion Gap 10 (5-15); BUN 13 mg/dL (7-18); BUN/Creat Ratio 11.6 RATIO (10-20); Calcium,Total 9.2 mg/dL (8.5-10.1); Chloride 101 mmol/L (98-107); Creatinine, Serum 1.12 mg/dL (0.55-1.02); EST Glomerular Filtration Rate 51 mL/min (>60); Est Glom Filt Rate - Afr Amer 62 mL/min (>60); Globulin 3.4 g/dL (2.2-4.2); Glucose 112 mg/dL (74-106); Potassium 4.3 mmol/L (3.5-5.1); Protein, Total 7.5 g/dL (6.4-8.2); Sodium Level 139 mmol/L (136-145); T4 Free Direct 0.86 ng/dL (0.76-1.46); Thyroid Stim Hormone (TSH) 1.67 uIU/mL (0.358-3.74)
== END | disposition home or self-care (01) ==
LOC: BIMLAB 08:58
PROVIDERS: PCP Internal Medicine; Referring Provider Internal Medicine; Visit Provider Internal Medicine
DX: I10 Essential (primary) hypertension (principal); R19.7 Diarrhea, unspecified
CPT/HCPCS: 36415; 80053; 84439; 84443; 85025

== ENCOUNTER → 2023-08-13 | Outpatient (CLI) | payer MEDICARE, MEDICAID, SELFPAY ==
[2023-08-13 12:14] LABS: Absolute Lymphocyte Count 1.13 X10^3/uL (0.83-4.51); Absolute Neutrophil Count 3.3 X10^3/uL (2.0-7.7); Basophil# 0.03 X10^3/uL; Basophil% 0.6 % (0-1); Eosinophil# 0.14 X10^3/uL; Eosinophils% 2.8 % (0-5); Hematocrit 40.7 % (37-47); Hemoglobin 12.9 g/dL (12.0-15.0); Lymphocyte # 1.13 X10^3/ul (0.83-4.51); Lymphocyte % 22.8 % (19-41); Mean Corp Hgb Conc 31.7 g/dL (32-36); Mean Corpuscular Hgb 28.4 pg (27.0-32.0); Mean Corpuscular Volume 89.6 fL (81-99); Mean Platelet Vol. 9.9 fl (6.2-12.0); Monocyte# 0.36 X10^3/uL; Monocyte% 7.3 % (0-10); NRBC Flagged by Analyzer 0 % (0-5); Neutrophil # 3.29 X10^3/uL (2.7-7.7); Neutrophil % 66.3 % (47-70); Platelet Count 258 K/mm3 (150-450); RBC Distribution Width CV 13.6 % (11.6-14.6); RBC Distribution Width SD 44.4 fl (35.1-43.9); Red Blood Count 4.54 M/mm3 (4.2-5.4)
[2023-08-13 12:51] LABS: ALB/GLOB Ratio 1.1 RATIO (0.9-2.4); AST(SGOT) 13 U/L (15-37); Alanine Aminotransfer ALT/SGPT 21 U/L (13-56); Albumin, Serum 3.9 g/dL (3.2-5.0); Alkaline Phosphatase 95 U/L (45-117); Anion Gap 5 (5-15); BUN 17 mg/dL (7-18); BUN/Creat Ratio 15.3 RATIO (10-20); Calcium,Total 8.6 mg/dL (8.5-10.1); Chloride 103 mmol/L (98-107); Cholesterol 140 mg/dL (200); Creatinine, Serum 1.11 mg/dL (0.55-1.02); EST Glomerular Filtration Rate 52 mL/min (>60); Est Glom Filt Rate - Afr Amer 63 mL/min (>60); Globulin 3.7 g/dL (2.2-4.2); Glucose 128 mg/dL (74-106); High Density Lipoprotein 44 mg/dL; Potassium 4.2 mmol/L (3.5-5.1); Protein, Total 7.6 g/dL (6.4-8.2); Sodium Level 137 mmol/L (136-145); Triglycerides 196 mg/dL; Very Low Density Lipoprotein 39 mg/dL (5-40)
== END | disposition home or self-care (01) ==
LOC: BIMLAB 09:31
PROVIDERS: PCP Internal Medicine; Referring Provider Internal Medicine; Visit Provider Internal Medicine
DX: I10 Essential (primary) hypertension (principal)
CPT/HCPCS: 36415; 80053; 80061; 85025

== ENCOUNTER 2023-11-25 08:58 | Outpatient (CLI) | payer MEDICARE, MEDICAID, SELFPAY ==
--- NOTE | 2023-11-25 08:59 | BI_ITS ---
MAMMOGRAPHY - BILATERAL DIAGNOSTIC REASON FOR EXAM: Female, 68 years old. Incidental finding of a right breast nodule on the CT scan of the chest. PERTINENT HISTORY: Sister with breast cancer. Mother with breast cancer. Sister with breast cancer. TECHNIQUE: Digital bilateral breast harsh (3D mammographic acquisition) in the CC and MLO projections. 2-D mediolateral oblique (MLO) and craniocaudad (CC) views of both breasts were obtained. An exaggerated craniocaudad view of the right breast was submitted as well. CAD: Full Field Digital Mammography with Computer Added Detection was performed. COMPARISON: No comparison mammograms available at this time. If any prior films become available, an addendum to this report can be generated. FINDINGS: Breast Composition: There are scattered areas of fibroglandular density. There is a 5.6 mm x 4.7 mm well-defined nodule in the deep central slightly lateral aspect of the right breast. Correlation with ultrasound is recommended. Fat-containing lymph nodes are seen in the right axilla. A battery pack of a pacemaker device is seen in the left axilla. No other significant abnormalities are identified. BI/DIAG MAMM W/CAD, BILAT IMPRESSION: 5.6 mm x 4.7 mm well-defined nodule in the deep central slightly lateral aspect of the right breast. Correlation with ultrasound is recommended. ASSESSMENT CATEGORY: BIRADS Category 0: Incomplete. Need additional imaging evaluation. A letter regarding these results will be sent to the patient by the facility within 30 days. Approximately 10% of breast cancers are not detected by mammography. A normal mammogram should not delay biopsy of a clinically suspicious abnormality. Electronically Signed: Tai Montana MD at 10:07 EST ,
--- NOTE | 2023-11-25 08:59 | US_ITS ---
STUDY: ULTRASOUND BREAST - RIGHT REASON FOR EXAM: Female, 68 years old. Right breast mass. TECHNIQUE: Axial and longitudinal images of the RIGHT breast were performed with a high resolution ultrasound transducer. # OF IMAGES: 70 COMPARISON: Comparison is made with prior mammogram done earlier in the day. FINDINGS: RIGHT Breast: There is a 2.4 cm x 1.9 cm x 1.4 cm hypoechoic irregular mass with posterior shadowing at the 7:00 position of the breast at 7 cm from nipple. There is also evidence of a 7 mm x 5 mm x 6 mm hypoechoic solid mass at the 7:00 position breast at 9 cm from the nipple. Several right axillary lymph nodes are seen. The largest measures 1.7 cm x 2.1 cm x 1.9 cm. This is heterogeneous in appearance. Biopsy recommended. US/Breast Limited Unilateral IMPRESSION: Suspicious right axillary lymph node. Suspicious nodular densities in the right breast as described. LADC recommended. ASSESSMENT CATEGORY: BIRADS Category 4: Suspicious - Biopsy Should Be Considered. A letter regarding these results will be sent to the patient by the facility within 30 days. Electronically Signed: Tai Montana MD at 15:00 EST ,
== END 2023-11-25 23:59 | disposition home or self-care (01) ==
LOC: OPUS 08:59
PROVIDERS: PCP Internal Medicine; Referring Provider Internal Medicine; Visit Provider Internal Medicine
DX: N63.13 Unspecified lump in the right breast, lower outer quadrant (principal); R59.0 Localized enlarged lymph nodes; R93.89 Abnormal findings on diagnostic imaging of other specified body structures; Z80.3 Family history of malignant neoplasm of breast
CPT/HCPCS: 76642; 77066

== ENCOUNTER → 2023-12-08 | Outpatient (CLI) | payer MEDICARE, MEDICAID, SELFPAY ==
--- NOTE | 2023-12-08 | IMM_PTH ---
PATHOLOGY RESULTS PATIENT: ZORA MATUTE LOC: [facility] U#:[id number] AGE/SX: 68/F ROOM: RE12/08/[address]: Dr. Cordelia Wolf MD : 1955 BED: DIS: 12/08/2023 SPEC #: [id number] RECD: 12/10/23 13:26 STATUS: TK REQ #: [id number] LOGAN: 12/08/23 00:[address]: Cordelia Wolf DEPT: IMMUNOHISTOCHEMISTRY RECD BY: Yessica Cage ENTERED: 12/10/23 13:29 SP TYPE: IMMUNO OTHR DR: Dr. Mayra Fallon MD Tissues: Right breast, NOS Axillary lymph node, NOS Right breast, NOS Procedures: CK8 (initial) CALPONIN-1 (add) CK5-6 (add) E-CAD (add) ER (add) HER2 BROOKE (add) KI-67 (add) MAMM (add) P53 (add) DE (add) Pankeratin (add) GATA3 (add) P40 (add) [facility] [address] [address] SPECIMEN INFORMATION: Tissue Source: A - Right breast mass, 8 o'clock, 7.0 cm from nipple, B - Right lymph node tissue, C - Right breast mass, 7 o'clock, 7.0 cm from nipple Clinical Info: Likely cancer with lymph node mets Specimen Number: [id number] A-C CPT code: 35046 x3, 60226 x16, 40214 x6 METHODOLOGY: Deparaffinized sections of prefer/formalin-fixed tissue or PAP/DQ stained slides are incubated with monoclonal/polyclonal antibodies/oligonucleotide probes. Localization is made via biotin free immunoperoxidase method. Appropriate controls are performed and reacted as expected. Results on target cell population are indicated in the following table: RESULTS: ANTIBODY / CLONE RESULT Block A E-Cad (ECH-6) positive CK8 (53tslsD87) positive Calponin-1 (YX277L) negative CK5-6 (D5 & 1684) negative P40 (BC28) negative P53 (DO-7) negative (null pattern) Ki-67 (30-9) positive, low, ~10% MORPHOMETRIC ANALYSIS ER (clone 6F11) 0% DE (clone 16/1E2) 0% Her-2Neu (clone CB11) 3+ Block B AE1-3 (AE1/AE3/PCK26) positive CK8 (63aeqgT03) positive GATA3 (L50-823) positive Mammaglobin (31A5) positive E-Cad (ECH-6) positive Block C E-Cad (ECH-6) positive CK8 (41eoheN48) positive Calponin-1 (HZ602I) negative CK5-6 (D5 & 1684) negative P40 (BC28) negative P53 (DO-7) negative (null pattern) Ki-67 (30-9) positive, low, ~20% MORPHOMETRIC ANALYSIS ER (clone 6F11) 20%, weak intensity DE (clone 16/1E2) 0 Her-2Neu (clone CB11) 3+ The prognostic test for HER2 is performed on formalin-fixed paraffin embedded tissue. A 3+ (positive) staining pattern is defined as intense, homogeneous, complete, circumferential membranous staining in >10% of contiguous tumor cells. A similar weak (2+) staining pattern is interpreted as equivocal. WENDY follow-up testing is recommended for all equivocal cases. Positivity/negativity for ER/DE is reported if > or < 1% of the tumor cells are immuno- reactive, respectively. The ASCO/CAP criteria is used for scoring. Reference: Journal of Clinical Oncology, 2013; 31:0420-5836 & 2010; 16:7365-7947. Ischemic time: Less than one hour. Duration of fixation: 28.5 Hrs; Sample Adequate: Yes. These assays have not been validated on decalcified tissues. Results should be interpreted with caution given the likelihood of false negativity on decalcified specimens or fixation greater than 72 hours. Alternative testing methods (FISH/dualISH for Her2; gene expression for ER) are recommended, if applicable. Please notify the laboratory if additional testing is required. These tests were developed and their performance characteristics determined by [facility]. They may not have been cleared or approved by the U.S. Food and Drug Administration. The FDA has determined that such clearance or approval is not necessary. The above immunohistochemical/dualISH markers are ordered and reviewed by the Pathologist. INTERPRETATION: A. Right breast mass, 8 o'clock, 7.0 cm from nipple, core biopsy: Invasive ductal carcinoma. Negative for estrogen receptors (unfavorable prognostic indicator). Negative for progesterone receptors (unfavorable prognostic indicator). Positive for overexpression of QIZ4tvl. B. Right lymph node tissue, core biopsy: Metastatic carcinoma (ductal carcinoma) consistent with breast primary. C. Right breast mass, 7 o'clock, 7.0 cm from nipple, core biopsy: Invasive ductal carcinoma. Positive for estrogen receptors (favorable prognostic indicator). Negative for progesterone receptors (unfavorable prognostic indicator). Positive for overexpression of EGO6pss. SJ:campbell 12/13/2023
--- NOTE | 2023-12-08 12:45 | BRBX_PTH ---
PATHOLOGY RESULTS PATIENT: ZORA MATUTE LOC: [facility] U#:[id number] AGE/SX: 68/F ROOM: RE12/08/[address]: Dr. Cordelia Wolf MD : 1955 BED: DIS: 12/08/2023 SPEC #: [id number] RECD: 12/09/23 07:07 STATUS: TK WEINER #: [id number] LOGAN: 12/08/23 12:[address]: Cordelia Wolf DEPT: SURGICAL PATHOLOGY RECD BY: Miri Page ENTERED: 12/09/23 07:10 SP TYPE: BREAST BX OTHR DR: Dr. Mayra Fallon MD Tissues: Breast, NOS LYMPH NODE BIOPSY Breast, NOS Procedures: Surgery Specimen Level IV HEADER OPERATION: Biopsy right breast mass x2 PRE-OP DIAGNOSIS: Likely cancer with lymph node mets TISSUE SUBMITTED: A - Right breast mass 7.0 cm from nipple, 8 o'clock, B - Right lymph node tissue, C - Right breast mass 7.0 cm from nipple, 7 o'clock MICROSCOPIC DIAGNOSIS A. Right breast mass, 8 o'clock, 7.0 cm from nipple, core biopsy: Invasive ductal carcinoma, nuclear grade 2 (1.0 cm in greatest length). See comment. B. Right lymph node tissue, core biopsy: Metastatic carcinoma (ductal carcinoma), consistent with breast primary. See comment. C. Right breast mass, 7 o'clock, 7.0 cm from nipple, core biopsy: Invasive ductal carcinoma, nuclear grade 2 (0.6 cm in greatest length). See comment. SJ:[email or web address] 12/10/2023 COMMENT A & C. Immunohistochemistry ([id number]) supports the above diagnosis. ER/NE/[id number] studies are being performed on sections of tumor and the results from this study will be reported separately ([id number]). B. Immunohistochemistry ([id number]) supports the above diagnosis. The tumor measures 0.4 cm in greatest length. Most of the tissue consists of inflamed fibrous tissue. No obvious lymph node tissue is identified. Case has been reviewed in consultation with Dr. Rai who concurs with the above diagnosis. IDC:AM MICROSCOPIC DESCRIPTION Slides are reviewed. GROSS DESCRIPTION A - Received in fixative is one container labeled with the patient's name and designated right breast 8 o'clock, 7.0 cm from nipple. The specimen consists of two elongated pieces of delacruz-yellow fibroadipose tissue measuring in aggregate 1.5 x 0.2 x 0.1 cm. The specimen is totally submitted in one cassette. B - Received in saline is one container labeled with the patient's name and designated right lymph node tissue. The specimen consists of multiple elongated fragments of delacruz soft tissue measuring in aggregate 1.5 x 1.0 x 0.1 cm. The entire specimen is submitted in one cassette. C - Received in fixative is one container labeled with the patient's name and designated right breast 7 cm from nipple, 7 o'clock. The specimen consists of multiple elongated fragments of delacruz-yellow fibroadipose measuring in aggregate 0.8 x 0.2 x 0.1 cm. The specimen is totally submitted in one cassette. / SJ:campbell 12/09/2023 TC:0 Ischemic Time: 1 minute Fixation Time: 28.5 hours CPT: 18323 x3
--- OUTSIDE RECORDS SUMMARY | 2023-12-08 17:34 | XMS RPT_ITS | CCD ---
Author Name Unknown Address [address] [place] [address] Organization [facility] Care Team Providers Care Marker Maker Name Role Phone MAYRA FALLON MD Primary Care Physician (01 14) Mayra Fallon MD Primary Care Provider 1(01 14) MAYRA FALLON Primary Care Unavailable KEYANNA SANCHEZ Referring Unavailable MAYRA FALLON Primary Care Unavailable Malgorzata Appiah Unavailable Unavailable MAYRA FALLON MD Primary Care Unavailab elma TURNER MD, DR SHERMAN Attending MAYRA Delaney MD Primary Care Unavailab REMI Agrawal MD Attending Unavailable MAYRA FALLON MD Primary Care Unavailab elma TURNER MD, DR SHERMAN Attending MAYRA Delaney MD Primary Care Unavailab VANESSA Estes MD Consulting Unavaillakshmi MARCOS MD, JUAN F Zepeda Attending Unavailable MAYRA FALLON MD Primary Care Unavailab SUERSH Rutledge MD Consulting Unavailable REMI PATEL MD Attending Unavailable PRIYA BANKS Attending U MAYRA Bettencourt MD Primary Care Unavailab MAYRA Jones MD Primary Care Unavailab elma PATEL MD, REMI Ibrahim Attending Unavailable Mayra Fallon MD Primary Care Prov ider Remi Patel MD Unavailable Ruel Lozano MD Unavailable RUEL LOZANO Referring Unavailable MAYRA FALLON Primary Care Unav ailable RUEL LOZANO Attending Unavailable MAYRA FALLON Primary Care Unav ailable RUEL LOZANO Admitting Unavailable RUEL LOZANO Attending Unavailable MAYRA FALLON Primary Care Unav ailable Medications Current Medications Medication Drug Class(es) Dates Sig (Normalized) Sig (Original) amLODIPine 10 mg oral tablet (9 sources) Dihydropyridine [employer] Haylee Start: 10-18-2023 take 1 tablet by mouth once daily amLODIPine (Norvasc) 10 mg tablet Take 1 tablet (10 mg) by mouth once daily. 0 10/18/2023 Active Completed/Discontinued Medications Medication Drug Class(es) Dates Sig (Normalized) Sig (Original) COMPOUNDED PRESCRIPTION (1 source) COMPOUNDED PRESC RIPTION Allergy injections once per week. Sees [facility]. 0 Active Problems Active Problems Problem Classification Problem Date Documented Da te Episodic/Chronic Aortic; peripheral; and visceral artery aneurysms (6 sources) Aneurysm; Translations: [Abdominal aneurysm without mention of rupture] Onset: 11-09-2008 11-09-2008 Chronic Cardiac dysrhythmias (20 sources) Atrial fibrillation; Translations: [Cardiac arrhythmia] Onset: 08-15-2013 06-04-2020 Chronic Past or Other Problems Problem Classification Problem Date Documented Da te Episodic/Chronic Congestive heart failure; nonhypertensive (8 sources) Congestive heart failure; Translations: [Heart failure, unspecified] Onset: 12-01-2023 Resolved: 12-01-2023 06-04-2020 Chronic Results Test Name Value Interpretation Reference Range Facil ity Vital Signs Date Time Vital Sign Value Performing Clinician Facility 12-02-2023 14:41-0500 Body height 152.4 cm Ruel Lozano MD Work Phone: [facility] 12-02-2023 14:41-0500 Body mass index (BMI) [Ratio] 29.88 kg/m2 Ruel Lozano MD Work Phone: [facility] 12-02-2023 14:41-0500 Body weight 69.4 kg Ruel Lozano MD Work Phone: [facility] 12-02-2023 14:41-0500 Diastolic blood pressure 73 mm[Hg] Ruel Lozano MD Work Phone: [facility] 12-02-2023 14:41-0500 Heart rate 60 /min Ruel Lozano MD Work Phone: [facility] 12-02-2023 14:41-0500 SaO2% (BldA) [Mass fraction] 94 % Ruel Lozano MD Work Phone: [facility] 12-02-2023 14:41-0500 Systolic blood pressure 125 mm[Hg] Ruel Lozano MD Work Phone: [facility] 07-05-2023 14:48-0400 Diastolic Blood Pressure Non-Invasive 76 1 JUAN F MARCOS MD [address] 07-05-2023 14:48-0400 Heart rate 60 /min JUAN F MARCOS MD [address] [place] [address] 07-05-2023 14:48-0400 Respiratory rate 16 /min JUAN F MARCOS MD [address] 07-05-2023 14:48-0400 Systolic Blood Pressure Non-Invasive 136 1 JUAN F MARCOS MD [address] 07-05-2023 14:20-0400 Respiratory rate 16 /min JUAN F MARCOS MD [address] 07-05-2023 13:48-0400 Diastolic Blood Pressure Non-Invasive 68 1 JUAN F MARCOS MD [address] 07-05-2023 13:48-0400 Heart rate 62 /min JUAN F MARCOS MD [address] 07-05-2023 13:48-0400 Respiratory rate 16 /min JUAN F MARCOS MD [facility] 07-05-2023 13:48-0400 Systolic Blood Pressure Non-Invasive 152 1 JUAN F MARCOS MD [address] [place] [address] 07-05-2023 13:35-0400 Diastolic Blood Pressure Non-Invasive 69 1 JUAN F MARCOS MD [address] [place] [address] 07-05-2023 13:35-0400 Heart rate 60 /min JUAN F MARCOS MD [address] [place] [address] 07-05-2023 13:35-0400 Systolic Blood Pressure Non-Invasive 176 1 JUAN F MARCOS MD [address] [place] [address] 07-05-2023 13:30-0400 Heart rate 60 /min JUAN F MARCOS MD [address] [place] [address] 07-05-2023 13:25-0400 Heart rate 60 /min JUAN F MARCOS MD [address] [place] [address] 07-05-2023 13:10-0400 Respiratory Rate - Anes 0 br/min JUAN F MARCOS MD [address] [place] [address] 07-05-2023 13:05-0400 Body temperature 97.52 [degF] JUAN F MARCOS MD [address] [place] [address] 07-05-2023 13:05-0400 Respiratory Rate - Anes 0 br/min JUAN F MARCOS MD [address] [place] [address] 07-05-2023 08:53-0400 Body weight 29.49 kg/m2 JUAN F MARCOS MD [address] [place] [address] 07-05-2023 08:44-0400 Body height 152.4 cm JUAN F MARCOS MD [address] [place] [address] 07-05-2023 08:44-0400 Body temperature 97.7 [degF] JUAN F MARCOS MD [address] [place] [address] 07-05-2023 08:44-0400 Body weight 68.5 kg JUAN F MARCOS MD [address] [place] [address] 07-05-2023 08:44-0400 Body weight 29.49 kg/m2 JUAN F MARCOS MD [facility] 07-05-2023 08:44-0400 Heart rate 58 /min JUAN F MARCOS MD [facility] 11-12-2022 11:49-0500 Body temperature 97.81 [degF] Keyanna Praisler-Wood GRADING MACHINE FEEDER.MANAGER PUBLIC Work Phone: [facility] 11-12-2022 11:49-0500 Body weight 67.77 kg Keyanna Praisler-Wood GRADING MACHINE FEEDER.MANAGER PUBLIC Work Phone: [facility] 11-12-2022 11:49-0500 Diastolic blood pressure 74 mm[Hg] Keyanna Praisler-Wood GRADING MACHINE FEEDER.MANAGER PUBLIC Work Phone: [facility] 11-12-2022 11:49-0500 Heart rate 60 /min Keyanna Praisler-Wood GRADING MACHINE FEEDER.MANAGER PUBLIC Work Phone: [facility] 11-12-2022 11:49-0500 Respiratory rate 18 /min Keyanna Praisler-Wood GRADING MACHINE FEEDER.MANAGER PUBLIC Work Phone: [facility] 11-12-2022 11:49-0500 SaO2% (BldA) [Mass fraction] 96 % Keyanna Praisler-Wood GRADING MACHINE FEEDER.MANAGER PUBLIC Work Phone: [facility] 11-12-2022 11:49-0500 Systolic blood pressure 124 mm[Hg] Keyanna Praisler-Wood GRADING MACHINE FEEDER.MANAGER PUBLIC Work Phone: [facility] Encounters Encounter Date Encounter Type Care Provider Facility Start: 12-04-2023 Evaluation and management of inpatient RUEL LOZANO [facility] Start: 12-02-2023 End: 12-03-2023 ambulatory RUEL LOZNAO [facility] Start: 12-02-2023 End: 12-02-2023 Office outpatient new 60 minutes Ruel Lozano MD Work Phone: [facility] [place] Procedures Date Procedure Procedure Detail Performing Clinician Start: 11-29-2023 CARD ECHOCARDIOGRAM NON BILL OUTSIDE STUDY ONLY RUEL LOZANO Start: 11-29-2023 History of coronary artery bypass grafting Status post coronary artery bypass grafting Ruel Lozano MD Work Phone: Start: 05-27-[address] TURNER MD Plan of Treatment Date Care Activity Detail Author Start: 01-17-2024 Subsequent hospital visit by physician 01/17/2024 Hospital Encounter [facility] [place] [address] [place] [address] [place] [address] [place] [address] [facility] [place] Start: 08-28-2023 Pneumococcal Vaccine: 65+ Years (2 - PCV) Pneumococcal Vaccine: 65+ Years (2 - PCV) [facility] Start: 10-18-2022 ADVANCE DIRECTIVE DISCUSSION ADVANCE DIRECTIVE DISCUSSION [facility] Start: 10-18-2022 DEPRESSION ASSESSMENT DEPRESSION ASSESSMENT [facility] Start: 06-02-2022 LIPID SCREEN LIPID SCREEN [facility] Start: 12-18-2021 COVID-19 VACCINE (4 - Booster for Pfizer series) COVID-19 VACCINE (4 - Booster for Pfizer series) [facility] Start: 03-23-2021 DTaP/Tdap/Td Vaccines (1 - Tdap) DTaP/Tdap/Td Vaccines (1 - Tdap) [facility] Start: 03-23-2021 Urine microalbumin profile DTAP,TDAP,TD (1 - Tdap) [facility] Start: 04-27-2019 DIABETES SCREEN DIABETES SCREEN [facility] Start: 2019 BONE DENSITY BONE DENSITY [facility] Start: 06-02-2018 Hepatitis B surface antibody level LDL CHOLESTEROL [facility] Start: 10-30-2017 Mammography MAMMOGRAM [facility] Start: 08-19-2013 PNEUMOCOCCAL: 65+ (2 - PCV) PNEUMOCOCCAL: 65+ (2 - PCV) [facility] Start: 01-27-2004 SHINGRIX VACCINE (1 of 2) SHINGRIX VACCINE (1 of 2) [facility] Start: 01-27-2004 Zoster Vaccines (1 of 2) Zoster Vaccines (1 of 2) [facility] Start: 1999 COLOGUARD (FIT-DNA) COLOGUARD (FIT-DNA) [facility] Start: 1999 Colonoscopy COLONOSCOPY [facility] Start: 1999 COLORECTAL CANCER SCREENING COLORECTAL CANCER SCREENING [facility] Start: [address] COLONOGRAPHY [facility] Start: 1999 FECAL OCCULT BLOOD FECAL OCCULT BLOOD [facility] Start: 1999 SIGMOIDOSCOPY SIGMOIDOSCOPY [facility] Start: 1994 Screening for malignant neoplasm of breast Mammogram [facility] Start: 01-27-1972 ANNUAL PCP TEAM CHRONIC DISEASE VISIT ANNUAL PCP TEAM CHRONIC DISEASE VISIT [facility] Start: 01-27-1972 Diabetes mellitus screening Diabetes Screening [facility] Start: 01-27-1972 HEPATITIS C SCREENING HEPATITIS C SCREENING [facility] Start: 01-27-1972 Hepatitis C screening Hepatitis C Screening [facility] Start: 1954 Lipid panel Lipid Panel [facility] Start: 1954 Medicare Annual Wellness Visit Medicare Annual Wellness Visit (AWV) [facility] Start: 1954 Screening for malignant neoplasm of colon [facility] Start: 1954 Screening for osteoporosis Bone Density Scan [facility] Rplcmt prost aortic valve open xcp homogrf/stent Replacement Aortic Valve and Aortic Root and Ascending Aorta Coronary artery disease of [place] artery of [place] heart with stable angina pectoris (CMS/HCC) [facility] [place] Immunizations Immunization Date Immunization Notes Care Provider Bhavik valerio 03-22-2021 tetanus and diphther ia toxoids, adsorbed, preservative free, for adult use (5 Lf of tetanus toxoid and 2 Lf of diphtheria toxoid) Keyanna Sanchez APRN.MANAGER PUBLIC Work Phone: [facility] Work Phone: 09-21-2016 influenza, injectabl e, quadrivalent, contains preservative Keyanna Sanchez APRN.MANAGER PUBLIC Work Phone: [facility] 08-22-2015 influenza, injectabl e, quadrivalent, contains preservative Keyanna Sanchez GRADING MACHINE FEEDER.MANAGER PUBLIC Work Phone: [facility] Work Phone: 08-15-2014 influenza, seasonal, injectable Keyanna Sanchez GRADING MACHINE FEEDER.MANAGER PUBLIC Work Phone: [facility] Work Phone: 08-15-2013 influenza virus vacc ine, unspecified formulation Keyanna Sanchez GRADING MACHINE FEEDER.MANAGER PUBLIC Work Phone: [facility] Work Phone: 08-19-2012 pneumococcal polysaccharide vaccine, 23 valent Keyanna Sanchez GRADING MACHINE FEEDER.MANAGER PUBLIC Work Phone: [facility] Work Phone: 07-18-2010 influenza virus vacc ine, unspecified formulation Keyanna Sanchez GRADING MACHINE FEEDER.MANAGER PUBLIC Work Phone: [facility] 07-15-2009 influenza virus vacc ine, unspecified formulation Keyanna Sanchez GRADING MACHINE FEEDER.MANAGER PUBLIC Work Phone: [facility] Work Phone: Payers Date Payer Category Payer Medicaid [employer] [id number] 2014-Present [phone] [address] [place] [id number] Medicaid [id number] 2014 Medicare [employer] MY[employer] MEDICARE [id number] 2014-Present [phone] [address] [place] [address] Medicare [id number] 2014 Medicare [id number] 2014 Unknown [employer] [place] [employer] [place] [id number] 2014-Present [address] [place] [address] [id number] 2014 Unknown [id number] 1954 Unknown [id number] 1954 Unknown [id number] 1954 Unknown [id number] 1954 Unknown [id number] 1954 Unknown [id number] 1954 Unknown [id number] 1954 Unknown [id number] 1954 Unknown [id number] 1954 Unknown [id number] 1954 Unknown [id number] 1954 Unknown [id number] Social History Date Type Detail Facility Start: 06-07-2020 End: 10-01-2023 Ex-smoker (finding) [facility] Sex Assigned At Female [facility] End: 02-18-2005 History of tobacco use Current smoker [facility] End: 02-18-2005 History of tobacco use Cigarette Smoker [facility] Start: 11-12-2022 End: 12-02-2023 Tobacco use and exposure Smokeless tobacco non-user [facility] Start: 11-12-2022 Alcohol intake Current non-dr 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 (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) [facility] Start: 1955 Sex Assigned At Not on file [facility] Start: 12-02-2023 Tobacco smoking status NHIS Never smoked tobacco [facility] Work Phone: Start: 12-02-2023 Alcohol intake Lifetime non-d isabella (finding) [facility] Work Phone: Start: 12-02-2023 History of Social function [facility] Work Phone: Start: 12-02-2023 Tobacco use panel [facility] Work Phone: Start: 11-22-2023 End: 12-02-2023 Exposure to SARS-CoV-2 (event) Not sure [facility] NEGATED: Highlighted rowStart: NINF History of tobacco use Passive smoker [facility] Work Phone: Functional Status Date Assessment Result Facility 07-05-2023 Functional Status Identification band [facility] 07-05-2023 Functional Status Room check performed [facility] 07-05-2023 Functional Status [facility] Mental Status Date Assessment Result Facility 07-05-2023 Mental Status Oriented x 4 [facility] 07-05-2023 Mental Status [facility] Clinical Notes 07-09-2014 to 12-02-2023 Patricia Emerson RN - 12/02/2023 2:00 PM EST Note Date & Type Note Facility 12-02-2023 History of Present illness Narrative Referral from Dr. Patel. Lizbeth comes to discuss treatment recommendations for perivalvular aortic valve insufficiency, cad status post cabg, dilated ascending aorta s/p repair abdominal aortic aneurysm. Past history of a fib, status post AICD, hld, htn, carotid aso past Cva. Experiencing dyspnea. Patricia Emerson RN documented in this encounter [facility] Work Phone: 11-04-2023 Note ORIGINAL EXAMINATION: CTA OF THE CHEST11/04/2023 3:56 pm CTA CHEST WITH CONTRAST TECHNIQUE: CTA of the chest was performed after the administration of intravenous contrast. Multiplanar reformatted images are provided for review. MIP images are provided for review. Automated exposure control, iterative reconstruction, and/or weight based adjustment of the mA/kV was utilized to reduce the radiation dose to as low as reasonably achievable. CTA of the thorax was acquired in the axial plane. Coronal and sagittal reformatted images were reviewed. Three dimensional reconstructions were created on a separate workstation. COMPARISON: None HISTORY: ORDERING SYSTEM PROVIDED HISTORY: Reason for Exam: Acending aortic anerysm. FINDINGS: There is aneurysmal dilatation of the ascending thoracic aorta measuring 4.9 cm in diameter. The remainder of the thoracic aorta has a normal caliber. There is no dissection. Aortic and coronary arterial calcifications are present. A prosthetic aortic valve is in place. There is no pericardial effusion. There are a couple of nodular densities in the posterior right breast measuring 1.2 x 0.9 cm (series 4, image 127) and 2.1 x 1.7 cm (image 136). There is an enlarged 2.2 cm right axillary lymph node. There is no mediastinal, hilar, or left axillary lymphadenopathy. There is no lung mass, nodule, or consolidation. The airways are unremarkable. There is no pleural effusion. There is a small sliding hiatal hernia. There is no acute abnormality in the imaged portion of the abdomen. There are no suspicious osseous lesions. IMPRESSION: 4.9 cm ascending aortic aneurysm. Nodular soft tissue densities in the right breast are concerning for neoplasm. Right axillary lymphadenopathy is concerning for metastatic disease. Interpreted by: Isaac Gonzalez Preliminary Report By: Isaac Gonzalez Electronically signed By Isaac Gonzalez Dictated Date: 11/04/2023 5:14:00 PM Prelim Date: 11/04/2023 5:21:23 PM Sign Date: 11/04/2023 5:21:23 PM [facility] + Plan note Future Appointments Appointment Date:10/29/2023 08:00:00 AM Scheduled Provider: Location:Echo Appointment Type:CV JOSHUA w/o Anesthesia Appointment Date:10/29/2023 09:00:00 AM Scheduled Provider: Location:Heart Lab Appointment Type:CV Procedure - Heart Lab/Hybrid OR Appointment Date:11/09/2023 02:30:00 PM Scheduled Provider: Location:[facility] Appointment Type:CV OV Appointment Date:12/22/2023 01:00:00 PM Scheduled Provider: Location:[facility] Appointment Type:CV Remote Procedure HM Appointment Date:09/05/2024 01:00:00 PM Scheduled Provider: Location:[facility] Appointment Type:CV Office Procedure ICD Appointment Date:09/05/2024 01:00:00 PM Scheduled Provider:JUD MALONEY Location:[facility] Appointment Type:CV OV [facility] 07-05-2023 Discharge summary Date of Service 07/05/2023 Discharge Diagnosis ICD generator battery depletion. Hospital Course This is a 68-year-old female with past medical history significant for ischemic cardiomyopathy status post cardiac resynchronization ICD that was noted to be at end of service. She underwent successful ICD generator replacement tolerating the procedure well. The patient will be discharged home to follow as an outpatient. Allergies NKA Procedures ICD generator replacement. 07/05/2023. Consults No qualifying data available. Physical Exam Vitals and Measurements T: 36.4 C (Skin) TMIN: 36.4 C (Skin) TMAX: 36.5 C (Oral) HR: 60 RR: 16 BP: 136/76 SpO2: 92% HT: 152.4 cm WT: 68.5 kg BMI: 29.49 Weight Dosing Weight: 68.5 kg (07/05/23) Physical Exam: General: well appearing, no acute distress Respiratory: normal chest wall expansion, CTA B, no r/r/w, no rubs Cardiovascular: RRR, no m/r/g, Normal S1 and S2 Abdomen: Soft, non-tender, non-distended, normal bowel sounds in all quadrants, no hepatosplenomegaly, no tympany Integumentary: warm, dry, and pink, with no rash, purpura, or petechia Neurological: 2+ patellar reflexes, Cranial Nerves II-XII grossly intact, no tics, normal sensation to pressure and light touch Code Status No qualifying data available. Admission Date 07/05/2023 Discharge Date 07/05/2023 Medications New Prescription amoxicillin-clavulanate (Augmentin 500 mg-125 mg oral tablet)1 tab(s) by mouth every 12 hours for 10 Days. Refills: 0. Unchanged amLODIPine (Norvasc 5 mg oral tablet)1 tab(s) by mouth two (2) times a day. Refills: 11. aspirin (aspirin 81 mg oral delayed release tablet)1 tab(s) by mouth every day. lisinopril (lisinopril 20 mg oral tablet)1 tab(s) by mouth every day. Refills: 11. melatonin (Melatonin 10 mg oral capsule)1 cap by mouth daily at bedtime as needed for insomnia. multivitamin with minerals (Calcium 600+D Plus Minerals oral tablet, chewable)2 tab(s) Chewed once a day. nitroGLYcerin (nitroglycerin 0.4 mg sublingual tablet)1 tab(s) under the tongue every 5 minutes. pantoprazole (Protonix 40 mg oral enteric coated tablet)1 tab(s) by mouth once a day. rosuvastatin (rosuvastatin 20 mg oral tablet)1 tab(s) by mouth every day. sertraline (sertraline 50 mg oral tablet)2 tab(s) by mouth every day. sotalol (Betapace 120 mg oral tablet)1 tab(s) by mouth two (2) times a day. traZODone (trazodone 100 mg oral tablet)0.5 tab(s) by mouth daily at bedtime. Follow Up Follow Up with JUAN F MARCOS MD When 09/22/2023 11:30 AM EST Why: This is your hospital follow up in the [facility]. Where: [address] [facility] [address] [place] [address]- [phone] Follow Up with JUAN F MARCOS MD When 07/23/2023 10:30 AM EDT Why: This is your incision check in the [facility]. Where: [address] [facility] [address] [place] [address]- [phone] Follow Up Appointments No qualifying data available. Follow Up Labs/Studies Discharge Labs No Follow-up Labs Discharge Studies No Follow-up Studies Discharge Diet No qualifying data available. Discharge Activity No qualifying data available. Condition on Discharge Good Discharge Disposition Home Digitally Signed by JUAN F MARCOS MD on 07/05/2023 04:32 PM [facility] 07-05-2023 Hospital Discharge instructions Patient Education 07/05/2023 14:10:09 Moderate Conscious Sedation, Adult, Care After Moderate Conscious Sedation, Adult, Care After These instructions provide you with information about caring for yourself after your procedure. Your health care provider may also give you more specific instructions. Your treatment has been planned according to current medical practices, but problems sometimes occur. Call your health care provider if you have any problems or questions after your procedure. What can I expect after the procedure? After your procedure, it is common: To feel sleepy for several hours. To feel clumsy and have poor balance for several hours. To have poor judgment for several hours. To vomit if you eat too soon. Follow these instructions at home: For at least 24 hours after the procedure: Do not: ?Participate in activities where you could fall or become injured. ?Drive. ?Use heavy machinery. ?Drink alcohol. ?Take sleeping pills or medicines that cause drowsiness. ?Make important decisions or sign legal documents. ?Take care of children on your own. Rest. Eating and drinking Follow the diet recommended by your health care provider. If you vomit: ?Drink water, juice, or soup when you can drink without vomiting. ?Make sure you have little or no nausea before eating solid foods. General instructions Have a responsible adult stay with you until you are awake and alert. Take [id number] and prescription medicines only as told by your health care provider. If you smoke, do not smoke without supervision. Keep all follow-up visits as told by your health care provider. This is important. Contact a health care provider if: You keep feeling nauseous or you keep vomiting. You feel light-headed. You develop a rash. You have a fever. Get help right away if: You have trouble breathing. This information is not intended to replace advice given to you by your health care provider. Make sure you discuss any questions you have with your health care provider. Document Released: 07/25/2014 Document Revised: 09/16/2018 Document Reviewed: 01/23/2017 [employer] Patient Education 2020 [employer]. 07/05/2023 14:10:05 3- Pacemaker/ICD generator replacement (07/2018) (CUSTOM) PACEMAKER/ICD GENERATOR REPLACEMENT Discharge Instructions WOUND CARE DO NOT place any ointments, creams, powders or lotions on the incision. Call your pacemaker/ICD doctor s office immediately if you have: ?Increased redness ?Drainage from the incision ?Opening of the incision ?Increased pain, warmth or swelling on or around the site ?Increased temperature above 100.5 Call if you experience dizziness, palpitations or a fast or slow heart rate If an Aquacel Ag surgical dressing has been applied: ?You may take a shower as long as the dressing is sealed well to your skin. ?You may remove the bandage in 7 days: To do this, press down on your skin with one hand and carefully lift an edge of the bandage with your other hand. Stretch the dressing to break the adhesive seal and gently pull it off. ?If the bandage becomes loose or falls off in less than 5 days, you will not be able to take any showers or baths. You must keep the incision dry for the first 5 days after your procedure. DO NOT clean the incision with any soap, water, peroxide or alcohol. Leave it dry and uncovered for 5 days, then you may shower using soap and water. Wear loose fitting clothes over the incisional site to avoid irritation until it is healed. If you do not have a dressing: DO NOT shower or get the incision wet for 5 days. DO NOT clean the incision with any soap, water, peroxide or alcohol. Leave it dry and uncovered for 5 days, then you may shower using soap and water. Wear loose fitting clothes over the incisional site to avoid irritation until it is healed. MEDICATIONS Take antibiotics before dental work as prescribed by your physician (if prescribed) Take medications as directed until prescription is finished Avoid alcohol while taking medications You may take Tylenol (acetaminophen) for incisional pain or discomfort. ACTIVITY Avoid activity that requires pushing or pulling for the first week. Please move your operation side arm freely after the first week. Document Released: 10/04/2006 Document Revised: 09/20/2013 Document Reviewed: 10/05/2014 ExitCare Patient Information 2015 [employer], [employer]. This information is not intended to replace advice given to you by your health care provider. Make sure you discuss any questions you have with your health care provider. Follow Up Care 06/14/2023 14:53:25 With:JUAN F MARCOS MD Address: [address] [place] [address]- [phone] When:07/23/2023 10:30:00 Comments:This is your [facility] check in the [facility]. With:JUAN F MARCOS MD Address: [address] [place] [address]- [phone] When:09/22/2023 11:30:00 Comments:This is your hospital follow up in the [facility]. [facility] 07-05-2023 Note ORIGINAL EXAMINATION: ONE XRAY VIEW OF THE CHEST 07/05/2023 2:28 pm COMPARISON: 07/20/2012 HISTORY: ORDERING SYSTEM PROVIDED HISTORY: Reason for Exam: Evaluate for pneumothorax/lead position post pacer/ICD insertion FINDINGS: The cardiomediastinal silhouette appears normal. The aorta is atherosclerotic. Prosthetic cardiac valve noted. Median sternotomy wires are present. The AICD leads project over the right atrium and right ventricle but exact lead placement cannot be confirmed on a single view. No focal consolidation, large effusion, vascular congestion, or pneumothorax is identified. IMPRESSION: No postprocedural pneumothorax. Interpreted by: Bere Valentin MD Preliminary Report By: Bere Valentin MD Electronically signed By Bere Valentin MD Dictated Date: 07/05/2023 3:04:44 PM Prelim Date: 07/05/2023 3:05:45 PM Sign Date: 07/05/2023 3:05:45 PM Ordering Provider: [facility] 07-05-2023 Summary of episode note Discharge Instructions Thank you for allowing [facility] to assist you with your healthcare needs. The following is important discharge information regarding your hospital visit. Your Care Team MAYRA FALLON MD What to do next Scheduled Follow-Up Appointments Appointment Type When With Where Contact InformationCV Incision Check 07/23/2023 10:30 AM EDT [facility] OV 09/06/2023 08:45 AM JUD LONG [facility] OV 09/06/2023 09:00 AM EST JOCELINE SKY PA-C [facility] CV Office Procedure ICD 09/22/2023 11:30 AM EST [facility] Follow Up Appointments Follow Up with JUAN F MARCOS MD When 09/22/2023 11:30 AM EST Why: This is your hospital follow up in the [facility]. Where: [address] [facility] [address]- [phone] Follow Up with JUAN F MARCOS MD When 07/23/2023 10:30 AM EDT Why: This is your incision check in the [facility]. Where: [address] [place] [address]- [phone] Allergies NKA Medications Please ask your primary doctor or pharmacist before taking any other medication not listed, including over the counter drugs, herbal medications, vitamins and or supplements as they may interact with your home medications. What How Much When Instructions Last Dose New amoxicillin-clavulanate (Augmentin 500 mg-125 mg oral tablet) 1 tab(s) by mouth Every 12 hours Duration: 10 Days Pickup at [facility] Unchanged amLODIPine (Norvasc 5 mg oral tablet) 1 tab(s) by mouth Two (2) times a day Unchanged aspirin (aspirin 81 mg oral delayed release tablet) 1 tab(s) by mouth Every day Unchanged lisinopril (lisinopril 20 mg oral tablet) 1 tab(s) by mouth Every day Unchanged melatonin (Melatonin 10 mg oral capsule) 1 cap by mouth Daily at bedtime as needed for for insomnia Unchanged multivitamin with minerals (Calcium 600+D Plus Minerals oral tablet, chewable) 2 tab(s) Chewed Once a day Unchanged nitroGLYcerin (nitroglycerin 0.4 mg sublingual tablet) 1 tab(s) under the tongue Every 5 minutes Unchanged pantoprazole (Protonix 40 mg oral enteric coated tablet) 1 tab(s) by mouth Once a day Unchanged rosuvastatin (rosuvastatin 20 mg oral tablet) 1 tab(s) by mouth Every day Unchanged sertraline (sertraline 50 mg oral tablet) 2 tab(s) by mouth Every day Unchanged sotalol (Betapace 120 mg oral tablet) 1 tab(s) by mouth Two (2) times a day Unchanged traZODone (trazodone 100 mg oral tablet) 0.5 tab(s) by mouth Daily at bedtime Pharmacy Information [facility]: [address] [place], [place] [id number] [phone] Please take this list to your next doctor s visit. Bring all medications you take, including over the counter medications, herbals and other supplements with you to your doctor s visit. Patients and families are reminded to discard old lists and to update any records with all medication providers or retail pharmacies. Medication Leaflets amoxicillin and clavulanate potassium (am OK i ZENAIDA in KLAV ue JEROD ate candy TAS ee um) Augmentin What is the most important information I should know about amoxicillin and clavulanate potassium? You should not use this medicine if you have severe kidney disease, if you have had liver problems or jaundice while taking amoxicillin and clavulanate potassium, or if you are allergic to any penicillin or cephalosporin antibiotic, such as Amoxil, Ceftin, Cefzil, Moxatag, Omnicef, and others. What is amoxicillin and clavulanate potassium? Amoxicillin is a penicillin antibiotic. Clavulanate potassium helps prevent certain bacteria from becoming resistant to amoxicillin. Amoxicillin and clavulanate potassium is a combination medicine used to treat many different infections caused by bacteria, such as sinusitis, pneumonia, ear infections, bronchitis, urinary tract infections, and infections of the skin. Amoxicillin and clavulanate potassium may also be used for purposes not listed in this medication guide. What should I discuss with my healthcare provider before taking amoxicillin and clavulanate potassium? You should not use this medicine if you are allergic to it, or if: you have severe kidney disease (or if you are on dialysis); you have had liver problems or jaundice while taking amoxicillin and clavulanate potassium; or you are allergic to any penicillin or cephalosporin antibiotic, such as Amoxil, Ceftin, Cefzil, Moxatag, Omnicef, and others. Tell your doctor if you have ever had: liver disease (hepatitis or jaundice); kidney disease; or mononucleosis. The liquid or chewable tablet may contain phenylalanine. Tell your doctor if you have phenylketonuria (PKU). Tell your doctor if you are or . Amoxicillin and clavulanate potassium can make control pills less effective. Ask your doctor about using a non-hormonal control (condom, diaphragm, cervical cap, or contraceptive sponge) to prevent . Do not give this medicine to a child without medical advice. How should I take amoxicillin and clavulanate potassium? Follow all directions on your prescription label and read all medication guides or instruction sheets. Use the medicine exactly as directed. Amoxicillin and clavulanate potassium may work best if you take it at the start of a meal. Take the medicine every 12 hours. Do not crush or chew the extended-release tablet. Swallow the pill whole, or break the pill in half and take both halves one at a time. Tell your doctor if you have trouble swallowing a whole or half pill. You must chew the chewable tablet before you swallow it. Shake the oral suspension (liquid) before you measure a dose. Use the dosing syringe provided, or use a medicine dose-measuring device (not a kitchen spoon). This medicine can affect the results of certain medical tests. Tell any doctor who treats you that you are using amoxicillin and clavulanate potassium. Use this medicine for the full prescribed length of time, even if your symptoms quickly improve. Skipping doses can increase your risk of infection that is resistant to medication. Amoxicillin and clavulanate potassium will not treat a viral infection such as the flu or a common cold. Store the tablets at room temperature away from moisture and heat. Store the liquid in the refrigerator. Throw away any unused liquid after 10 days. What happens if I miss a dose? Take the medicine as soon as you can, but skip the missed dose if it is almost time for your next dose. Do not take two doses at one time. What happens if I overdose? Seek emergency medical attention or call the Poison Help line at . Overdose can cause nausea, vomiting, stomach pain, diarrhea, skin rash, drowsiness, hyperactivity, and decreased urination. What should I avoid while taking amoxicillin and clavulanate potassium? Avoid taking this medicine together with or just after eating a high-fat meal. This will make it harder for your body to absorb the medication. Antibiotic medicines can cause diarrhea, which may be a sign of a new infection. If you have diarrhea that is watery or bloody, call your doctor before using anti-diarrhea medicine. What are the possible side effects of amoxicillin and clavulanate potassium? Get emergency medical help if you have signs of an allergic reaction (hives, difficult breathing, swelling in your face or throat) or a severe skin reaction (fever, sore throat, burning eyes, skin pain, red or purple skin rash with blistering and peeling). Stop using amoxicillin and clavulanate potassium and seek medical treatment if you have a serious drug reaction that can affect many parts of your body. Symptoms may include skin rash, fever, swollen glands, muscle aches, severe weakness, unusual bruising, or yellowing of your skin or eyes. Call your doctor at once if you have: severe stomach pain, diarrhea that is watery or bloody (even if it occurs months after your last dose); pale or yellowed skin, dark colored urine, fever, confusion or weakness; loss of appetite, upper stomach pain; little or no urination; or easy bruising or bleeding. Common side effects may include: nausea, vomiting; diarrhea; rash, itching; vaginal itching or discharge; or diaper rash. This is not a complete list of side effects and others may occur. Call your doctor for medical advice about side effects. You may report side effects to FDA at 7-543-MEE-4422. What other drugs will affect amoxicillin and clavulanate potassium? Tell your doctor about all your other medicines, especially: allopurinol; probenecid; or a blood thinner--warfarin, Coumadin, Jantoven. This list is not complete. Other drugs may affect amoxicillin and clavulanate potassium, including prescription and keye-tmf-nelurnm medicines, vitamins, and herbal products. Not all possible drug interactions are listed here. Where can I get more information? Your doctor or pharmacist can provide more information about amoxicillin and clavulanate potassium. Remember, keep this and all other medicines out of the reach of children, never share your medicines with others, and use this medication only for the indication prescribed. Every effort has been made to ensure that the information provided by [employer] is accurate, up-to-date, and complete, but no guarantee is made to that effect. Drug information contained herein may be time sensitive. [employer] information has been compiled for use by healthcare practitioners and consumers in the [place] and therefore [employer] does not warrant that uses outside of the [place] are appropriate, unless specifically indicated otherwise. [employer] drug information does not endorse drugs, diagnose patients or recommend therapy. [employer] drug information is an informational resource designed to assist licensed healthcare practitioners in caring for their patients and/or to serve consumers viewing this service as a supplement to, and not a substitute for, the expertise, skill, knowledge and judgment of healthcare practitioners. The absence of a warning for a given drug or drug combination in no way should be construed to indicate that the drug or drug combination is safe, effective or appropriate for any given patient. [employer] does not assume any responsibility for any aspect of healthcare administered with the aid of information [employer] provides. The information contained herein is not intended to cover all possible uses, directions, precautions, warnings, drug interactions, allergic reactions, or adverse effects. If you have questions about the drugs you are taking, check with your doctor, nurse or pharmacist. Copyright 5041-2896 [employer] Version: 14.. Revision Date: 07/24/2022. Education Materials Moderate Conscious Sedation, Adult, Care After These instructions provide you with information about caring for yourself after your procedure. Your health care provider may also give you more specific instructions. Your treatment has been planned according to current medical practices, but problems sometimes occur. Call your health care provider if you have any problems or questions after your procedure. What can I expect after the procedure? After your procedure, it is common: To feel sleepy for several hours. To feel clumsy and have poor balance for several hours. To have poor judgment for several hours. To vomit if you eat too soon. Follow these instructions at home: For at least 24 hours after the procedure: Do not: ? Participate in activities where you could fall or become injured. ? Drive. ? Use heavy machinery. ? Drink alcohol. ? Take sleeping pills or medicines that cause drowsiness. ? Make important decisions or sign legal documents. ? Take care of children on your own. Rest. Eating and drinking Follow the diet recommended by your health care provider. If you vomit: ? Drink water, juice, or soup when you can drink without vomiting. ? Make sure you have little or no nausea before eating solid foods. General instructions Have a responsible adult stay with you until you are awake and alert. Take pnjn-nxf-exjkhrh and prescription medicines only as told by your health care provider. If you smoke, do not smoke without supervision. Keep all follow-up visits as told by your health care provider. This is important. Contact a health care provider if: You keep feeling nauseous or you keep vomiting. You feel light-headed. You develop a rash. You have a fever. Get help right away if: You have trouble breathing. This information is not intended to replace advice given to you by your health care provider. Make sure you discuss any questions you have with your health care provider. Document Released: 07/25/2014 Document Revised: 09/16/2018 Document Reviewed: 01/23/2017 [employer] Patient Education 2020 [employer] PACEMAKER/ICD GENERATOR REPLACEMENT Discharge Instructions WOUND CARE DO NOT place any ointments, creams, powders or lotions on the incision. Call your pacemaker/ICD doctor s office immediately if you have: ? Increased redness ? Drainage from the incision ? Opening of the incision ? Increased pain, warmth or swelling on or around the site ? Increased temperature above 100.5 Call if you experience dizziness, palpitations or a fast or slow heart rate If an Aquacel Ag surgical dressing has been applied: ? You may take a shower as long as the dressing is sealed well to your skin. ? You may remove the bandage in 7 days: To do this, press down on your skin with one hand and carefully lift an edge of the bandage with your other hand. Stretch the dressing to break the adhesive seal and gently pull it off. ? If the bandage becomes loose or falls off in less than 5 days, you will not be able to take any showers or baths. You must keep the incision dry for the first 5 days after your procedure. DO NOT clean the incision with any soap, water, peroxide or alcohol. Leave it dry and uncovered for 5 days, then you may shower using soap and water. Wear loose fitting clothes over the incisional site to avoid irritation until it is healed. If you do not have a dressing: DO NOT shower or get the incision wet for 5 days. DO NOT clean the incision with any soap, water, peroxide or alcohol. Leave it dry and uncovered for 5 days, then you may shower using soap and water. Wear loose fitting clothes over the incisional site to avoid irritation until it is healed. MEDICATIONS Take antibiotics before dental work as prescribed by your physician (if prescribed) Take medications as directed until prescription is finished Avoid alcohol while taking medications You may take Tylenol (acetaminophen) for incisional pain or discomfort. ACTIVITY Avoid activity that requires pushing or pulling for the first week. Please move your operation side arm freely after the first week. Document Released: 10/04/2006 Document Revised: 09/20/2013 Document Reviewed: 10/05/2014 ExitCare Patient Information 2015 [employer]. This information is not intended to replace advice given to you by your health care provider. Make sure you discuss any questions you have with your health care provider. Additional Information VACCINATE! IT SAVES LIVES! Members of the community who have not yet received the COVID-19 vaccine and would like to receive it can visit one of [facility] vaccine clinics. There are many vaccine clinic locations within the [facility]. For locations and available times, please visit https://[email or web address].o ido.gov/. It is important to note that some COVID mobile vaccine clinics are held outdoors and may be canceled in rainy or stormy conditions. To learn more about pediatric vaccinations (ages 5-11), we invite you to visit the [facility] webpage. [email or web address] To learn more about the COVID-19 vaccine, we invite you to visit the CDC website for a list of frequently asked questions.https://www.cdc.gov/co ronavirus/2019-ncov/vaccines/faq .html [facility] Patient Portal Access Instructions: Stay connected with your healthcare team and access your personal medical information anytime with the [facility] Patient Portal. Please follow the directions below to create your [facility] account: 1.Access the email account you provided upon registration to the hospital/physician office.2.Look for an invitation email from [facility].3.Open the email and access the invitation link: Accept Invitation to [facility].4.Fill in the required monson to create your account. To access your account, visit [email or web address], [email or web address]. Click the blue button labeled Access Patient Portal and then log in with the username and password that you created in the steps above. You will be able to view your test results, lab results, a summary of your visits, upcoming appointments and more. There is also a convenient messaging option where you can send secure messages to your provider. In addition, you will have the ability to download any documents or summaries to your computer and/or send the information securely to a physician. Remember that your healthcare information is confidential, so carefully consider who you will allow to register on the [facility] Patient Portal for access to your information. You can also access the [facility] Patient Portal on the [employer] emre. Simply click on Patient Portal and then log into your account. If you would like to receive a full copy of your medical records, please contact the [facility] Medical Records Department by calling [phone], Wednesday through Wednesday between 8 a.m. and 4:30 p.m. HOW TO SAFELY DISPOSE OF PRESCRIPTION MEDICATIONS Please use one of the following methods to safely dispose of your unused medications. 1.Use a drug disposal kit: the drug disposal pouch allows you to safely discard your old and unused drugs. Ask your nurse to give you one when you are discharged.2.Visit a local take-back location: Many local pharmacies and police departments have programs that collect old and unwanted prescription drugs. Call your local pharmacy or go to http://[employer]/8Y1Hz9d to find one close to you.3.Make use of household items: Use cat litter or old coffee grounds to dispose medications if other options are not available. Mix your drugs with these household products, seal them in an airtight container and throw it into the garbage. Call [facility]: [phone] to be sure your drugs can be disposed of in this way. Some medicines may require a different approach.4.Never flush your medications down the toilet. IF YOU HAVE BEEN PRESCRIBED AN OPIOID FOR PAIN If you have been prescribed an opioid (such as hydrocodone, oxycodone or morphine), it is critical to understand the possible side effects and risks of opioid pain medications. Even when taken as directed, opioids can have several side effects including: Tolerance, meaning you might need to take more of a medication for the same pain relief. Nausea, vomiting and/or constipation. Sleepiness, dizziness, dry mouth, confusion, depression or itching. Physical dependence, meaning you have withdrawal symptoms when a medication is stopped, can develop within a few days. KNOW YOUR RESPONSIBILITIES It is important to know exactly how much and how often to take the opioid pain medications you are prescribed. Never take opioids in higher amounts or more often than prescribed. Do not combine opioids with alcohol or other drugs that cause drowsiness, such as benzodiazepines, also known as benzos, including diazepam and alprazolam, muscle relaxants or sleep aids. Never sell or share prescription opioids. This is illegal. Store opioids in a secure place and out of reach of others (including children, family, friends and visitors). The last page of this document has been signed and retained as a CHART COPY. Signatures Patient Education Materials Moderate Conscious Sedation, Adult, Care After 3- Pacemaker/ICD generator replacement (07/2018) (CUSTOM) Medication Leaflets amoxicillin and clavulanate potassium My discharge plan and instructions have been reviewed and explained to me and I,LIZBETH NIXON understand my current condition and have read and understand these discharge instructions. I have received a written copy of the plan/instructions. If I have questions, I am aware that I should contact my doctor. Patient/Home Visitor [employer] Signature: Date/Time: Relationship to Patient: Witness Name/Signature: Date/Time: [facility] 09-18-2023 Anesthesiology Consult note Patient: LIZBETH NIXON Age: 68 years Sex: Female : 1955 Associated Diagnoses: None Author: VANESSA BETTENCOURT MD Preoperative Information Greater than 8 hours Anesthesia history Patient's history: negative. Family's history: negative. Review of Systems Ear/Nose/Mouth/Throat: See Problem List. Respiratory: See Problem List. Cardiovascular: See Problem List. Gastrointestinal: See Problem List. Genitourinary: See Problem List. Endocrine: See Problem List. Musculoskeletal: See Problem List. Integumentary: See Problem List. Neurologic: See Problem List. Health Status Allergies: Allergic Reactions (Selected) NKA, Allergies (1) ActiveReaction NKANone Documented Current medications: (Selected) Inpatient Medications Ordered NS 1,000 mL: 20 mL/hr, Intravenous vancomycin IVPB: 1,250 mg, 250 mL, 200 mL/hr, IV Piggyback, PREOP pharm Prescriptions Prescribed Norvasc 5 mg oral tablet: 5 mg, 1 tab(s), Oral, BID, 60 tab(s), 11 Refill(s) lisinopril 20 mg oral tablet: 20 mg, 1 tab(s), Oral, Daily, 30 tab(s), 11 Refill(s) Documented Medications Documented Betapace 120 mg oral tablet: 120 mg, 1 tab(s), Oral, BID Calcium 600+D Plus Minerals oral tablet, chewable: 2 tab(s), Chewed, qDay, 0 Refill(s) Melatonin 10 mg oral capsule: 10 mg, 1 cap(s), Oral, qHS, PRN: for insomnia, 90 cap(s), 0 Refill(s) Protonix 40 mg oral enteric coated tablet: 40 mg, 1 tab(s), Oral, qDay, 60 tab(s), 0 Refill(s) aspirin 81 mg oral delayed release tablet: 81 mg, 1 tab(s), Oral, Daily, 0 Refill(s) nitroglycerin 0.4 mg sublingual tablet: 0.4 mg, 1 tab(s), Sublingual, q5min rosuvastatin 20 mg oral tablet: 20 mg, 1 tab(s), Oral, Daily, 0 Refill(s) sertraline 50 mg oral tablet: 100 mg, 2 tab(s), Oral, Daily, 0 Refill(s) trazodone 100 mg oral tablet: 50 mg, 0.5 tab(s), Oral, qHS, 0 Refill(s), Medications (2) Active Scheduled: (1) vancomycin PMX 1,250 mg 250 mL, IV Piggyback, PREOP pharm Continuous: (1) NS (0.9% nacl) 1,000 mL 1,000 mL, Intravenous, 20 mL/hr PRN: (0) Problem list: 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.) / SNOMED CT 527060427 / Confirmed AFIB / SNOMED CT 48263101 / Confirmed AICD (AUTOMATIC CARDIOVERTER/DEFIBRILLATOR) PRESENT / SNOMED CT 7248312683 / Confirmed BILATERAL CAROTID ARTERY STENOSIS / SNOMED CT 569230588459212 / Confirmed ARRHYTHMIA / SNOMED CT 8063088226 / Confirmed OTHER CHEST PAIN / SNOMED CT 57220099 / Confirmed CONGESTIVE HEART FAILURE / SNOMED CT 26026200 / Confirmed CAD IN [place] ARTERY / SNOMED CT 4514111336 / Confirmed HYPERTENSION, UNSPECIFIED / SNOMED CT 75076222 / Confirmed GERD (GASTROESOPHAGEAL REFLUX DISEASE) / SNOMED CT 219735153 / Confirmed S/P aortic valve replacement / SNOMED CT 6800044740 / Confirmed MIXED HYPERLIPIDEMIA / SNOMED CT 348110469 / Confirmed VT / SNOMED CT 947826812 / Confirmed TIA / SNOMED CT 941113639 / Confirmed Canceled: AORTIC STENOSIS / SNOMED CT 978940612, Active Problems (17) AFIB AICD (AUTOMATIC CARDIOVERTER/DEFIBRILLATOR) PRESENT ARRHYTHMIA BILATERAL CAROTID ARTERY STENOSIS CAD IN [place] ARTERY cardiac catheterization CONGESTIVE HEART FAILURE CVA (436.) GERD (GASTROESOPHAGEAL REFLUX DISEASE) HYPERTENSION, UNSPECIFIED MIXED HYPERLIPIDEMIA OTHER CHEST PAIN pre PTCA PTCA with stent S/P aortic valve replacement TIA VT Histories Past Medical History: No active or resolved past medical history items have been selected or recorded. Family History: Cancer Mother Sister Heart attack Father Coronary artery disease Father Sister Procedure history: Stress testing using pharmacologic-induced stress ([id number]) on 10/22/2022 at 67 Years. Echocardiogram ([id number]) on 10/01/2022 at 67 Years. Comments: 10/24/2022 13:48 Lisa Woody MA (ABR-OE) Summary: 1. Left ventricle: The cavity size is normal. Wall thickness is increased. Basal Septal Left Ventricular Hypertrophy Systolic function is normal. The estimated ejection fraction is 65-70%. Wall motion is normal; there are no regional wall motion abnormalities. Diastolic dysfunction is present. 2. Ventricular septum: Thickness is severely increased. 3. Aortic valve: A bioprosthetic valve is present. There is mild regurgitation. Aortic valve peak velocity 3.3 m/s, aortic valve mean pressure gradient 24 mmHg, acceleration time possibly greater than 100 ms. 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 4. Aortic root: The aortic root is dilated @ 4.2 cm. 5. Mitral valve: The annulus is mildly calcified. 6. Right ventricle: Systolic function is reduced. Recommendations: 1. As compared to the last echocardiogram aortic valve velocity appears to be higher and acceleration time appears to be >100 ms consider further evaluation for prosthetic aortic valve stenosis. 2. Severe left ventricular hypertrophy is noted. Consider appropriate differential diagnosis. Cardiac catheterisation ([id number]) in 2011 at 57 Years. Comments: 06/07/2020 8:57 Lsia Ward MA (ABR-OE) 03-30-11; 09-23-10 ptca/stent to follow; 03-10-10 Implantable defibrillator ([id number]) in 2010 at 56 Years. Comments: 06/07/2020 8:56 Lisa Ward MA (ABR-OE) FINAL DEVICE SETTINGS: Souleymane parameters are DDDR, 60-120 with an AV delay of 400/230 milliseconds. Tachy parameters are set as a two zone device. For heart rates between 140 to 180 beats per minute the patient will be treated with anti- tachy pacing, followed by 17 joules, followed by 26 joules, followed by 41 joules x 4. For heart rates above 180 the patient will be treated with 26 joules, followed by 36 joules, followed by 41 joules x 6. SYSTEM IMPLANTED: The pulse generator is a [employer] Teligen, model E110, serial #[id number]. The RA lead is a Guidant, model 4470, serial #[id number]. The RV lead is a Guidant, model 0184, serial #[id number]. PROCEDURES PERFORMED: Dual chamber ICD implantation. PTCA - Percutaneous transluminal coronary angioplasty ([id number]) on 09/23/2010 at 55 Years. Comments: 06/07/2020 8:54 Lisa Ward MA (ABR-OE) PERCUTANEOUS TRANSLUMINAL CORONARY ANGIOPLASTY AND STENT OF THE DISTAL RIGHT CORONARY ARTERY Balloons/Stents: 2.0 and 3.0 [place] balloon catheter; two 2.75 Promus stents one 15 mm in length and one 20 mm in length deployed in the right coronary artery----04-07-10-PERCUTANEOUS TRANSLUMINAL CORONARY ANGIOPLASTY AND STENT OF THE OSTIAL LEFT CIRCUMFLEX ARTERY 3.0 X 8 mm length Promus stent ----03-14-10-Please note that this was a very complex lesion secondary to the takeoff of the right coronary artery that was implanted very close to the prosthetic aorticvalve at the time of her surgical procedure 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 PROCEDURE(S) PERFORMED: PERCUTANEOUS TRANSLUMINAL CORONARY ANGIOPLASTY AND STENT OF THE RIGHT CORONARY ARTERY Catheters: 6 [place] JR4, 3 DRC, and AR1 guide catheters were used; the AR1 guide catheter was the catheter that set best and was the one used for the procedure; 0.014 inch s'port, Whisper and soft Asahi wire were used. Soft Asahi wire was the wire that was successful in getting able to canalize thevessel for placement of the wire and also for delivery of balloons and stents. Balloons: 2.5 [place] balloon catheter; 2.75 [place] Quantum balloon catheter and 2.5 X 15 mm length Promus stent CABG (Coronary artery bypass grafting) planned ([id number]) in 2004 at 50 Years. Comments: 06/07/2020 8:55 Lisa Ward MA (ABR-OE) In 2004 she had coronary artery bypass grafting, including FULLER to the LAD, SVG to the diagonal andSVG to the obtuse marginal. Also an aortic valve replacement using a Bovine bioprosthesis was done.A descending thoracic aortic aneurysm repair was also performed. All three of these procedures weredone during the same hospitalization at [facility] in 2004. The patient had intraoperative ventricular fibrillation, postoperative congestive heart failure with LVEF of 15%, requiring intra-aortic balloon pump. Thoracic aortic aneurysm without rupture ([id number]) in 2004 at 50 Years. Comments: 06/07/2020 8:57 Lisa Ward MA (ABR-OE) A descending thoracic aortic aneurysm repair was also performed. Tonsillectomy ([id number]). Hysterectomy ([id number]). AVR - Aortic valve replacement ([id number]). Comments: 06/07/2020 8:55 EDT - Lisa Tai MA (ABR-OE) aortic valve replacement using a Bovine bioprosthesis was done Social History Social & Psychosocial Habits Alcohol Comment: none - 06/07/2020 09:05 - Lisa Tai MA (ABR-OE) 07/05/2023 Use: Past Substance Abuse 07/05/2023 Use: Never Tobacco 07/05/2023 Tobacco Use: Former smoker, quit more Nutrition/Health 07/05/2023 Caffeine intake amount: tea - 3-4 cups/day . Physical Examination Vital Signs(last 24 hrs) Last Charted Temp Oral36.5 DegC (JUL 05 08:44) Resp Rate 18 br/min (JUL 05:44) SBPH 178mmHg (JUL 05 08:44) DBP84 mmHg (JUL 05 08:44) BMI29.49 (JUL 05 08:53) General: Alert and oriented. Airway: Normal temporomandibular joint mobility, Normal mouth, Normal throat, Normal neck range of motion, Trachea midline. Mallampati classification: II (soft palate, fauces, uvula visible). Head: Normocephalic. Dentition Evaluation: No teeth. Neck: Supple. Respiratory: Lungs are clear to auscultation, Respirations are non-labored. Cardiovascular: Normal rate, No murmur. Heart Sounds: Normal. Neurologic: Alert, Oriented. Review / Management Results review: Labs (Last four charted values) WBC 5.0(JUL 05) Hgb 13.3(JUL 05) Hct 39.2(JUL 05) Plt 258(JUL 05) PT 11.1(JUL 05) INR 1.0(JUL 05) . Assessment and Plan [place] Society of Anesthesiologists (ASA) physical status classification: Class III. Anesthetic Preoperative Plan Premedication: intravenous. Anesthetic technique: MAC. Induction: intravenously. Maintenance airway: Mask. Special techniques: Warming device. Special Monitoring. Postoperative pain management: Per surgeon. Risks discussed: nausea, vomiting, headache, sore throat, dental injury, hypotension, allergic reaction, serious complications, Heart Problems, Lung Problems, Stroke, Intraoperative Recall, . Informed consent: signed by patient. Notes: After completion of focused history and physical examination, anesthetic options with their inherent risks and benefits were discussed. Common minor and rare but serious or potentially life-threatening complications were included in this discussion(Specific items discussed: nausea, sore throat, dysphagia, heart problems, lung problems, strokes, heart attacks, intraoperative recall and ). All of the patient's questions were answered. The patient verbalizes understanding of the agreed upon anesthetic plan and agrees to proceed.. Beta Haylee: Beta Haylee Taken Within 24 Hrs. Digitally Signed by VANESSA BETTECNOURT MD on 07/05/2023 09:55 AM [id number]* Exam Date Time Procedure Performing Provider Status 05/27/23 11:06 AM Echocardiogram, Adult ([facility]OH) Auth (Verified) [facility] 2023 NoteHNO ID: [id number] Author: RT Irish(R) Service: ? Author Type: Software Engineer Mobile Type: Progress Notes Filed: 11/12/2022 12:41 PM Note Text: Radiology Service Progress Note PATIENT NAME: Lizbeth Nixon DATE OF SERVICE: November 12, 2022 TIME: 12:24 PM PATIENT IDENTITY VERIFICATION COMPLETED USING TWO (2) IDENTIFIERS: Name and Date of confirmed by patient verbally. FALL SCREENING: Has the patient had 2 falls in the last year or 1 fall with injury or currently using an Ambulatory Assistive Device (Walker, Cane, Wheelchair, Crutches, etc.)? No PATIENT GENDER DATA: Female. status: : No status: NO. PATIENT RELEVANT IMPLANT DATA REVIEWED: Yes RADIOLOGY DEPARTMENT: General X-ray: Exam(s) Completed: Upper Extremity X-Ray(s): Fingers/Thumb, left middle/3rd finger PERIPHERAL IV DATA: Not applicable SIGNED BY: RT Irish(R) November 12, 2022 12:24 [facility]2023 NoteHNO ID: [id number] Author: Keyanna Sanchez APRN.MANAGER PUBLIC Service: ? Author Type: Nurse Practitioner Type: Progress Notes Filed: 11/12/2022 5:47 PM Note Text: Subjective Lizbeth Nixon is a 67 year old female who presents for sudden onset, aching, 7/10 L middle finger pain. Notes that she went to bed last night with no pain or swelling of her finger and when she woke up her middle finger was swollen and hurt. Pain is made worse with movement and palpation of finger and is relieved with elevation of hand. Associated symptoms include swelling of the L middle finger and discolorations. Denies N/T, itching, rash, warmth or redness of affected area. Patient wears rings but denies any new rings. Denies recent or known trauma, or history of OA, RA. Review of Systems Constitutional: Negative for chills and fever. HENT: Negative for congestion and sore throat. Eyes: Negative for pain and discharge. Respiratory: Negative for cough. Cardiovascular: Negative for chest pain. Gastrointestinal: Negative for diarrhea, nausea and vomiting. Musculoskeletal: Positive for joint pain (L middle finger). Negative for falls. Skin: Negative for itching and rash. Neurological: Negative for tingling, sensory change and weakness. PAST MEDICAL HISTORY Diagnosis Date Acute, but ill-defined, cerebrovascular disease CAD (coronary artery disease) Congestive heart failure, unspecified Essential hypertension, benign Insomnia Other and unspecified hyperlipidemia PMH - PAST MEDICAL HISTORY OF 2004 aortic valve replacement, bioprosthetic Stroke (HCC) 2005,2006 PAST SURGICAL HISTORY Procedure Laterality Date BX BREAST PERC VACUUM/ROTN 07/25/07 LEFT CORONARY ARTERY BYP W/VEIN AND ARTERY GRAFT 3 VEIN 07-06-05 CABG, three grafts PAST SURGICAL HISTORY OF 03-31-11 ICD placement at [place] PAST SURGICAL HISTORY OF 03-30-11 Heart cath at [place] PERC TRANSL COR ANGIO 03-14-10,10,09-23-10 Percutaneous Transluminal Coronary Angio-2 stents [facility],PERC,DURING BREAST BX 07/25/07 LEFT RPLCMT PROST AORTIC VALVE OPEN XCP HOMOGRF/STENT 07-06-05 Aortic valve replacement SIMPLE INTRACRANIAL ARYSM CAROTID CIRCULATION 07-06-05 TONSILLECTOMY PRIMARY/SECONDARY Tonsillectomy TOTAL ABDOMINAL HYSTERECT W/WO RMVL TUBE OVARY 1992 Hysterectomy, JOSE (non-ca) ALLERGIES Patient has no known allergies. MEDICATIONS sertraline (ZOLOFT) 50 mg tablet Take 50 mg by mouth once daily. traZODone (DESYREL) 50 mg tablet Take 50 mg by mouth daily at bedtime. clopidogrel (PLAVIX) 75 mg tablet TAKE 1 TABLET BY MOUTH EVERY DAY amLODIPine (NORVASC) 10 mg tablet Take 1 tablet by mouth once daily. Melatonin 5 mg cap Take by mouth. aspirin, enteric coated (ECOTRIN LOW STRENGTH) 81 mg EC tablet Take 1 tablet by mouth once daily. ramelteon (ROZEREM) 8 mg tablet Take 1 tablet by mouth daily at bedtime. pantoprazole DR (PROTONIX) 40 mg tablet Take 1 tablet by mouth daily before breakfast. Take on empty stomach, 1/2 hr before meal. COMPOUNDED PRESCRIPTION Allergy injections once per week. Sees Cristina ENT. lisinopril (ZESTRIL, PRINIVIL) 40 mg tablet Take 1 tablet by mouth once daily. sotalol (BETAPACE) 120 mg tablet Take 1 tablet by mouth twice daily. nitroglycerin sublingual (NITROQUICK) 0.4 mg SL tablet Dissolve 1 tablet under the tongue as needed. IF NO PAIN RELIEF, CALL 911 spironolactone (ALDACTONE) 25 mg tablet Take 25 mg by mouth once daily. (Patient not taking: Reported on 11/12/2022) rosuvastatin (CRESTOR) 20 mg tablet Take 1 tablet by mouth daily at bedtime. (Patient not taking: Reported on 12/26/2018 ) cyclobenzaprine (FLEXERIL) 10 mg tablet Take 1 tablet by mouth three times daily as needed. (Patient not taking: Reported on 11/12/2022) hydrochlorothiazide (HYDRODIURIL, ESIDRIX) 25 mg tablet Take 1 tablet by mouth once daily. (Patient not taking: Reported on 11/12/2022) FAMILY HISTORY Problem Relation Age of Onset Cancer Mother lung Heart Mother Stroke Mother Heart Father Hypertension Father Breast Cancer Sister Cancer Sister lung Social History Tobacco Use Smoking status: Former Types: Cigarettes Quit date: 02/18/2005 Years since quittin.7 Smokeless tobacco: Never Substance Use Topics Alcohol use: No Drug use: No Objective BP 124/74 Pulse 60 Temp 36.6 ?C (97.8 ?F) (Tympanic) Resp 18 Wt 67.8 kg (149 lb 6.4 oz) SpO2 96% BMI 29.18 kg/m? Physical Exam Vitals reviewed. Constitutional: General: She is not in acute distress. Appearance: Normal appearance. Cardiovascular: Rate and Rhythm: Normal rate and regular rhythm. Pulses: Normal pulses. Heart sounds: Murmur heard. Pulmonary: Effort: Pulmonary effort is normal. Breath sounds: Normal breath sounds. Musculoskeletal: Right hand: Normal. Left hand: Swelling (from the MCP to DIP of the middle finger), tenderness (palmar side PIP, MCP) and bony tenderness (3rd metacarpal base an (more content not included)...[facility]2023 Instructions* Patient Instructions* Keyanna Sanchez APRN.CNP - 11/12/2022 1:19 PM EST ASSESSMENT/PLAN: 1. Pain of left middle finger - ICD9: 729.5, ICD10: M79.645 - XR DIGIT GENERAL 3V FRONTAL/LAT/OBL LEFT Radiologist FINDINGS: No acute fractures or subluxations are noted. The joint spaces are grossly preserved. The mineralization of the bones is normal. There is no significant soft tissue swelling. IMPRESSION: No acute radiographic abnormalities seen in the third digit. [employer]: ANDRESSA Transcribe Date/Time: Nov 12 2022 1:10P Dictated by : CICI RIVERA MD - suspect gout vs. Tendonitis - prednisone as prescribed - rest, ice, elevate - Follow-up with your PCP in 3-5 days if symptoms have not improved or sooner if symptoms worsen - Discussed red flags and need for immediate medical evaluation if any occur. - Discussed supportive care treatment with fluids, rest and analgesia. - Discussed expected course of illness Keyanna Sanchez APRN.CNP [facility] of Present illness Narrative* Keyanna Sanchez APRN.CNP - 11/12/2022 12:07 PM EST Subjective Lizbethbraxton Nixon is a 67 year old female who presents for sudden onset, aching, 7/10 L middle finger pain. Notes that she went to bed last night with no pain or swelling of her finger and when she woke up her middle finger was swollen and hurt. Pain is made worse with movement and palpation of finger and is relieved with elevation of hand. Associated symptoms include swelling of the L middle finger and discolorations. Denies N/T, itching, rash, warmth or redness of affected area. Patient wears rings but denies any new rings. Denies recent or known trauma, or history of OA, RA. Review of Systems Constitutional: Negative for chills and fever. HENT: Negative for congestion and sore throat. Eyes: Negative for pain and discharge. Respiratory: Negative for cough. Cardiovascular: Negative for chest pain. Gastrointestinal: Negative for diarrhea, nausea and vomiting. Musculoskeletal: Positive for joint pain (L middle finger). Negative for falls. Skin: Negative for itching and rash. Neurological: Negative for tingling, sensory change and weakness. PAST MEDICAL HISTORY Diagnosis Date Acute, but ill-defined, cerebrovascular disease CAD (coronary artery disease) Congestive heart failure, unspecified Essential hypertension, benign Insomnia Other and unspecified hyperlipidemia PMH - PAST MEDICAL HISTORY OF 2004 aortic valve replacement, bioprosthetic Stroke (HCC) 2005,2006 PAST SURGICAL HISTORY Procedure Laterality Date BX BREAST PERC VACUUM/ROTN 07/25/07 LEFT CORONARY ARTERY BYP W/VEIN & ARTERY GRAFT 3 VEIN 07-06-05 CABG, three grafts PAST SURGICAL HISTORY OF 03-31-11 ICD placement at [place] PAST SURGICAL HISTORY OF 03-30-11 Heart cath at [place] PERC TRANSL COR ANGIO 10,04-07-10,09-23-10 Percutaneous Transluminal Coronary Angio-2 stents [facility],PERC,DURING BREAST BX 07/25/07 LEFT RPLCMT PROST AORTIC VALVE OPEN XCP HOMOGRF/STENT 07-06-05 Aortic valve replacement SIMPLE INTRACRANIAL ARYSM CAROTID CIRCULATION 07-06-05 TONSILLECTOMY PRIMARY/SECONDARY <AGE 11 1969 Tonsillectomy TOTAL ABDOMINAL HYSTERECT W/WO RMVL TUBE OVARY 1992 Hysterectomy, JOSE (non-ca) ALLERGIES Patient has no known allergies. MEDICATIONS sertraline (ZOLOFT) 50 mg tablet Take 50 mg by mouth once daily. traZODone (DESYREL) 50 mg tablet Take 50 mg by mouth daily at bedtime. clopidogrel (PLAVIX) 75 mg tablet TAKE 1 TABLET BY MOUTH EVERY DAY amLODIPine (NORVASC) 10 mg tablet Take 1 tablet by mouth once daily. Melatonin 5 mg cap Take by mouth. aspirin, enteric coated (ECOTRIN LOW STRENGTH) 81 mg EC tablet Take 1 tablet by mouth once daily. ramelteon (ROZEREM) 8 mg tablet Take 1 tablet by mouth daily at bedtime. pantoprazole DR (PROTONIX) 40 mg tablet Take 1 tablet by mouth daily before breakfast. Take on empty stomach, 1/2 hr before meal. COMPOUNDED PRESCRIPTION Allergy injections once per week. Sees Cristina ENT. lisinopril (ZESTRIL, PRINIVIL) 40 mg tablet Take 1 tablet by mouth once daily. sotalol (BETAPACE) 120 mg tablet Take 1 tablet by mouth twice daily. nitroglycerin sublingual (NITROQUICK) 0.4 mg SL tablet Dissolve 1 tablet under the tongue as needed. IF NO PAIN RELIEF, CALL 911 spironolactone (ALDACTONE) 25 mg tablet Take 25 mg by mouth once daily. (Patient not taking: Reported on 11/12/2022) rosuvastatin (CRESTOR) 20 mg tablet Take 1 tablet by mouth daily at bedtime. (Patient not taking: Reported on 12/26/2018 ) cyclobenzaprine (FLEXERIL) 10 mg tablet Take 1 tablet by mouth three times daily as needed. (Patient not taking: Reported on 11/12/2022) hydrochlorothiazide (HYDRODIURIL, ESIDRIX) 25 mg tablet Take 1 tablet by mouth once daily. (Patientnot taking: Reported on 11/12/2022) FAMILY HISTORY Problem Relation Age of Onset Cancer Mother lung Heart Mother Stroke Mother Heart Father Hypertension Father Breast Cancer Sister Cancer Sister lung Social History Tobacco Use Smoking status: Former Types: Cigarettes Quit date: 02/18/2005 Years since quittin.7 Smokeless tobacco: Never Substance Use Topics Alcohol use: No Drug use: No Objective BP 124/74 Pulse 60 Temp 36.6 C (97.8 F) (Tympanic) Resp 18 Wt 67.8 kg (149 lb 6.4 oz) SpO2 96% BMI 29.18 kg/m Physical Exam Vitals reviewed. Constitutional: General: She is not in acute distress. Appearance: Normal appearance. Cardiovascular: Rate and Rhythm: Normal rate and regular rhythm. Pulses: Normal pulses. Heart sounds: Murmur heard. Pulmonary: Effort: Pulmonary effort is normal. Breath sounds: Normal breath sounds. Musculoskeletal: Right hand: Normal. Left hand: Swelling (from the MCP to DIP of the middle finger), tenderness (palmar side PIP, MCP) and bony tenderness (3rd metacarpal base and body) present. No lacerations. Decreased range of motion(middle finger). Decreased strength (middle finger) of finger abduction (middle finger). Normal sensation. Normal capillary refill. Normal pulse. Skin: General: Skin is warm and dry. Capillary Refill: Capillary refill takes less than 2 seconds. Findings: Bruising (L middle finger PIP) present. No erythema or rash. Neurological: General: No focal deficit present. Mental Status: She is alert and oriented to person, place, and time. Sensory: No sensory deficit. ASSESSMENT/PLAN: 1. Pain of left middle finger - ICD9: 729.5, ICD10: M79.645 - XR DIGIT GENERAL 3V FRONTAL/LAT/OBL LEFT Radiologist FINDINGS: No acute fractures or subluxations are noted. The joint spaces are grossly preserved. The mineralization of the bones is normal. There is no significant soft tissue swelling. IMPRESSION: No acute radiographic abnormalities seen in the third digit. [employer]: ANDRESSA Transcribe Date/Time: Nov 12 2022 1:10P Dictated by : CICI RIVERA MD - suspect gout vs. Tendonitis - prednisone as prescribed - rest, ice, elevate - Follow-up with your PCP in 3-5 days if symptoms have not improved or sooner if symptoms worsen - Discussed red flags and need for immediate medical evaluation if any occur. - Discussed supportive care treatment with fluids, rest and analgesia. - Discussed expected course of illness Ladonna Barron APRN- student TEACHING PROVIDER (Physician/PA/GRADING MACHINE FEEDER) NOTE OF PERSONAL INVOLVEMENT IN CARE: I have personally seen and examined the patient and performed the medical decision-making components. I have reviewed the Advanced Practice Registered Nurse (GRADING MACHINE FEEDER) Student's documentation and verified the findings in the note as written. Any additions or changes are noted in bold/italics. Signature: Keyanna Sanchez Date: 11/12/2022 Time: 5:46 PM Keyanna Sanchez APRN.MANAGER PUBLIC [facility] History of Past illness Narrative* Problem Noted Date Resolved Date Thoracic or lumbosacral neuritis or radiculitis, unspecified 07/09/2014 10/30/2016 Low back pain 06/28/2014 10/30/2016 Allergic rhinitis 03/17/2011 10/30/2016 Calcaneal spur 07/19/2009 10/30/2016 Plantar fasciitis 07/15/2009 10/30/2016 Sciatica 11/29/2007 12/30/2007 HYPERTENSION ACCELERATED, MALIGNANT 07/02/2007 07/22/2016 documented as of this encounter (statuses as of 11/12/2022) [facility] Future Appointments Appointment Date:10/23/2021 02:15:00 PM Scheduled Provider: Location:[facility] Appointment Type:CV Remote Procedure HM Appointment Date:03/05/2022 10:45:00 AM Scheduled Provider: Location:[facility] Appointment Type:CV OV [facility] Evaluation + Plan note Future Appointments Appointment Date:10/07/2022 08:45:00 AM Scheduled Provider: Location:[facility] Appointment Type:NM Myocardial Spect Rest/Stress Sherly Appointment Date:11/02/2022 02:30:00 PM Scheduled Provider: Location:[facility] Appointment Type:CV OV Appointment Date:12/18/2022 09:45:00 AM Scheduled Provider: Location:[facility] Appointment Type:CV Remote Procedure HM Appointment Date:01/07/2023 11:00:00 AM Scheduled Provider: Location:[facility] Appointment Type:CV Procedure - AOH Echo Appointment Date:01/14/2023 11:00:00 AM Scheduled Provider: Location:[facility] Appointment Type:CV OV Future Scheduled Tests Laboratory* Magnesium Level 09/21/22 * Thyroid Stimulating Hormone 09/21/22 * Complete Blood Count 09/21/22 * Lipid Profile 04/16/22 * Lipid Profile 09/21/22 * Complete Metabolic Panel 09/21/22 * N-Terminal proBNP 09/21/22 Radiology* NM Myocardial Spect Rest/Stress 10/07/22 [facility] Evaluation + Plan note Future Appointments Appointment Date:11/02/2022 02:30:00 PM Scheduled Provider: Location:[facility] Appointment Type:CV OV Appointment Date:12/18/2022 09:15:00 AM Scheduled Provider: Location:[facility] Appointment Type:CV Remote Procedure HM Appointment Date:01/07/2023 11:00:00 AM Scheduled Provider: Location:[facility] Appointment Type:CV Procedure - AOH Echo Appointment Date:01/14/2023 11:00:00 AM Scheduled Provider: Location:[facility] Appointment Type:CV OV Future Scheduled Tests Laboratory* Lipid Profile 04/16/22 [facility] Evaluation + Plan note Future Appointments Appointment Date:06/14/2023 01:45:00 PM Scheduled Provider:JOCELINE SKY PA-C Location:[facility] Appointment Type:CV OV Appointment Date:06/14/2023 02:30:00 PM Scheduled Provider:JUD MALONEY Location:[facility] Appointment Type:CV OV [facility] Evaluation + Plan note Future Appointments Appointment Date:07/23/2023 10:30:00 AM Scheduled Provider: Location:[facility] Appointment Type:CV Incision Check Appointment Date:09/06/2023 08:45:00 AM Scheduled Provider:JUD MALONEY Location:[facility] Appointment Type:CV OV Appointment Date:09/06/2023 09:00:00 AM Scheduled Provider:JOCELINE SKY PA-C Location:[facility] Appointment Type:CV OV Appointment Date:09/22/2023 11:30:00 AM Scheduled Provider: Location:[facility] Appointment Type:CV Office Procedure ICD Diagnostic Tests Pending * Blood Gas Panel (poc) 07/05/23 * Sodium (poc) 07/05/23 * Potassium (poc) 07/05/23 * Chloride (poc) 07/05/23 * Ca Ionized (poc) 07/05/23 * Hemoglobin (poc) 07/05/23 * Hematocrit (poc) 07/05/23 * Glucose (poc) 07/05/23 * Blood Gas Panel (poc) 07/05/23 * Sodium (poc) 07/05/23 * Potassium (poc) 07/05/23 * Chloride (poc) 07/05/23 * Ca Ionized (poc) 07/05/23 * Hemoglobin (poc) 07/05/23 * Hematocrit (poc) 07/05/23 * Blood Gas Panel (poc) 07/05/23 * Sodium (poc) 07/05/23 * Potassium (poc) 07/05/23 * Chloride (poc) 07/05/23 * Ca Ionized (poc) 07/05/23 * Hemoglobin (poc) 07/05/23 * Hematocrit (poc) 07/05/23 * Glucose (poc) 07/05/23 * Glucose (poc) 07/05/23 * Blood Gas Panel (poc) 07/05/23 * Sodium (poc) 07/05/23 * Potassium (poc) 07/05/23 * Chloride (poc) 07/05/23 * Ca Ionized (poc) 07/05/23 * Hemoglobin (poc) 07/05/23 * Hematocrit (poc) 07/05/23 * Glucose (poc) 07/05/23 * Blood Gas Panel (poc) 07/05/23 * Sodium (poc) 07/05/23 * Potassium (poc) 07/05/23 * Chloride (poc) 07/05/23 * Ca Ionized (poc) 07/05/23 * Hemoglobin (poc) 07/05/23 * Hematocrit (poc) 07/05/23 * Glucose (poc) 07/05/23 [facility] Evaluation + Plan note Future Appointments Appointment Date:11/09/2023 02:30:00 PM Scheduled Provider: Location:[facility] Appointment Type:CV OV Appointment Date:12/22/2023 01:00:00 PM Scheduled Provider: Location:[facility] Appointment Type:CV Remote Procedure HM Appointment Date:09/05/2024 01:00:00 PM Scheduled Provider: Location:[facility] Appointment Type:CV Office Procedure ICD Appointment Date:09/05/2024 01:00:00 PM Scheduled Provider:JUD MALONEY Location:[facility] Appointment Type:CV OV Future Scheduled Tests Radiology* CT Angiography Chest w/ Contrast 11/01/23 [facility] Evaluation note* Diagnosis Pain of left middle finger- Primary [facility] this encounter [facility] Diagnosis Aortic valve insufficiency, etiology of cardiac valve disease unspecified Ascending aorta dilation (CMS/HCC) Thoracic aneurysm without mention of rupture Coronary artery disease involving [place]over[place] coronary artery of cloverdale heart with other form of angina pectoris (CMS/HCC) Coronary artery disease of [place] artery of [place] heart with stable angina pectoris (CMS/HCC)- Primary documented in this encounter [facility] Work Phone: Hospital course Narrative No data available for this section [facility] Hospital Discharge instructions No data available for this section [facility] Progress note No data available for this section [facility] Reason for referral (narrative)* Diagnostic Procedure Only (Urgent) - Closed Specialty Diagnoses / Procedures Referred By Contac t Referred To Contact XR IMAGING Diagnoses Pain of left middle finger Procedures XR DIGIT GENERAL 3V FRONTAL/LAT/OBL LEFT RADEX FINGR MINIMUM 2 VIEWS Keyanna Sanchez APRN.CNP [address] [place] [address] Xr Imaging Referral ID Status Reason Start Date Expiration Date V isits Requested Visits Authorized [id number] Closed Auto-Generate d Referral 11/12/2022 12/12/2023 1 1 [facility] Summary Purpose Family History No Family History Records Found No data available for this section No data available for this section No data available for this section No data available for this section No Family History Records FoundNo Family History Records Found Advance Directives No Advanced Directives Records FoundNo Advanced Directives Records FoundNo Advanced Directives Records Found Additional Source Comments Care Team (unrecognized sect ion and content) Care Team Personnel Name: JUAN F MARCOS MD Position: P4 Physician - Cardiology Member Role: General Partner Address: Address: [address] [facility] [address] [facility] [place] [address]- Name: MAYRA FALLON MD Member Role: Primary Care Physician Address: Address: [address] [place] [id number]- [place] Care Team Related Persons Name: ARIANNE BEDOYA Care Team Personnel Name: JUAN F MARCOS MD Position: P4 Physician - Cardiology Member Role: General Partner Address: Address: [address] [facility] [address] [place] [address]- Name: MAYRA FALLON MD Member Role: Primary Care Physician Address: Address: [address] [place] [address]- Care Team Related Persons Name: ARIANNE BEDOYA Source Comments (unrecognize d section and content) In the event this informatio n is protected by the Federal Confidentiality of Alcohol and Drug Abuse Patient Records regulations: The Federal rules restrict any use of the information to criminally investigate or prosecute any alcohol or drug abuse patient.[facility] Reason for Visit (unrecogniz ed section and content) Care Teams (unrecognized sec tion and content) Marker Maker Relationship Specialty Start Date End Date Mayra Fallon MD [address] [facility] [place] [address] PCP - General 07/12/19 Remi Patel MD [address] [facility] [address] [place] [address] Referring Physician Interventional Cardiology 11/30/23 [place] [id number] Department [place] [address] Surgeon Cardiothoracic Surgery 11/30/23 INFORMATION SOURCE (unrecogn ized section and content) DATE CREATED AUTHOR AUTHOR'S ORGANIZ ATION 11/12/2023 [facility] ([place]) DATE CREATED AUTHOR AUTHOR'S ORGANNIRMAL ATION 12/06/2023 [facility] FOR RECORDS PERTAINING TO PATIENTS WHO ARE OR HAVE BEEN ENROLLED IN A CHEMICAL DEPENDENCY/SUBSTANCEABUSE PROGRAM, SOME INFORMATION MAY BE OMITTED. This clinical summary was aggregated from multiple sources. Caution should be exercised in using it in the provision of clinical care. This summary normalizes information from multiple sources, and as a consequence, information in this document may materially change the coding, format and clinical context of patient data. In addition, data may be omitted in some cases. CLINICAL DECISIONS SHOULD BE BASED ON THE PRIMARY CLINICAL RECORDS. [facility]. provides no warranty or guarantee of the accuracy or completeness of information in this document.
== END | disposition home or self-care (01) ==
LOC: LABSPEC 13:47
PROVIDERS: PCP Internal Medicine; Referring Provider Surgery; Visit Provider Surgery
DX: C50.511 Malignant neoplasm of lower-outer quadrant of right female breast (principal)
CPT/HCPCS: 88305; 88341; 88342

== ENCOUNTER → 2024-01-24 | Outpatient (CLI) | payer MEDICARE, MEDICAID, SELFPAY ==
--- NOTE | 2024-01-24 17:46 | CT_ITS ---
INDICATION: R/O S.C. COMPRESSION -- IV CONTRAST EXAMINATION: CT THORACIC SPINE - CT Spine Thoracic W/ Contrast Injection. Abnormal PET scan. History of left breast carcinoma. TECHNIQUE: Helically acquired images were obtained of the thoracic spine. 2D reformats were reviewed. A radiation dose optimization technique was used for this scan. IV Contrast dosage and agent: 100 mL of Isovue 300. COMPARISON: Comparison is made with PET scan of the body dated January 11, 2024. FINDINGS: VERTEBRAE: Heterogeneous appearance of the pedicle on the right side of the T8 vertebral body. This corresponds to the abnormal uptake in the PET scan. VERTEBRAL ALIGNMENT: Unremarkable. There is preservation of the normal thoracic kyphosis. DISCS: Multilevel disc space narrowing and spondylosis. VISUALIZED THORAX: Atherosclerotic plaque formation of the thoracic aorta. Coronary artery calcification. CT/Spine Thoracic WITH Contrast IMPRESSION: Heterogeneous appearance of the right pedicle of the T8 vertebra corresponding to the findings on the recent PET scan. Electronically Signed: Tai Montana MD at 9:00 EDT ,
--- NOTE | 2024-01-24 17:46 | CT_ITS ---
STUDY: CT CERVICAL SPINE WITH CONTRAST REASON FOR EXAM: Female, 68 years old. R/O S.C. COMPRESSION -- IV CONTRAST. History of a left breast cancer. RADIATION DOSAGE (If Supplied By Facility): CTDIvol = ( 20.30 ) mGy, DLP = ( 1040.18 ) mGycm TECHNIQUE: High resolution transaxial imaging was performed following intravenous administration of IV 100mL Isovue-300. Sagittal and coronal images were reconstructed. Individualized dose optimization techniques were used for this CT. COMPARISON: Comparison is made with prior PET scan dated January 11, 2024. FINDINGS: There is evidence of irregularity involving the midportion of the anterior ring of the C1 vertebrae corresponding to the PET scan findings. There are degenerative changes of the anterior atlantoaxial articulation. Normal odontoid process. There is straightening of the normal cervical lordosis. C2-3: Facet joint osteoarthritis and hypertrophy worse on the right side. Mild right neural foraminal stenosis. C3-4: Facet joint osteoarthritis and hypertrophy worse on the right side. No significant stenosis seen. C4-5: Normal endplates. Normal disc height and morphology. Normal central canal and intervertebral neuroforamina. C5-6: Moderate degree of disc space narrowing. Spondylosis. Uncovertebral arthrosis. Mild degree of bilateral neural foraminal stenosis. C6-7: Moderate degree of disc space narrowing. Spondylosis. Uncovertebral arthrosis. No significant neural foraminal stenosis seen. C7-T1: Normal endplates. Normal disc height and morphology. Normal central canal and intervertebral neuroforamina. Normal visualized soft tissue structures. CT/Spine Cervical WITH Contrast IMPRESSION: Multilevel degenerative changes, as described above. Irregularity involving the midportion of the anterior ring of the C1 vertebra corresponding to the PET scan findings. Metastatic deposit should be ruled out. Electronically Signed: Tai Montana MD at 8:54 EDT ,
== END | disposition home or self-care (01) ==
LOC: CT 17:40
PROVIDERS: PCP Internal Medicine; Referring Provider Internal Medicine Hematology & Oncology; Visit Provider Internal Medicine Hematology & Oncology
DX: C50.919 Malignant neoplasm of unspecified site of unspecified female breast (principal)
CPT/HCPCS: 72126; 72129; Q9967

== ENCOUNTER → 2024-03-06 | Outpatient (CLI) | payer MEDICARE, MEDICAID, SELFPAY ==
[2024-03-06 10:49] LABS: Bacteria 0 SEEN /hpf (None Seen); Mucous, Urine 0 SEEN /hpf (<or=2+); Red Blood Cells-Urine 0 SEEN /hpf (0-5); White Blood Cells 0 SEEN /hpf (0-5)
[2024-03-06 12:49] LABS: Color, Urine Straw (Yellow); Glucose, Dipstick Normal (Normal); Ketone-Dipstick Negative (Negative); Leukocyte Esterase-Dipstick 25 /ul (Negative); Nitrite-Dipstick Negative (Negative); Occult Blood-Urine Negative /ul (Negative); Protein-Dipstick 15 mg/dl (Negative); Urine Bilirubin Dipstick Negative (Negative); Urine Clarity Sl. Cloudy (Clear); Urine Urobilinogen Normal (Normal)
[2024-03-06 13:01] LABS: Squamous Epithelial Cells - UA 0-5 SEEN /hpf (5-10)
== END | disposition home or self-care (01) ==
LOC: LABSPEC 10:48
PROVIDERS: PCP Internal Medicine; Visit Provider Internal Medicine
DX: R39.15 Urgency of urination (principal)
CPT/HCPCS: 81001; 87086

== ENCOUNTER 2024-04-29 11:21 | Emergency (ER) | payer MEDICARE, MEDICAID, SELFPAY ==
[2024-04-29 11:23] VITALS: BP 125/99; PULSE 83; RESP 16; TEMP 36.6; O2SAT 92; BMI 28.9
[2024-04-29 11:33] VITALS: BP 125/99; PULSE 82; RESP 14; TEMP 36.6; O2SAT 92
--- NOTE | 2024-04-29 11:38 | EX.ED.DYSGE1 ---
HPI <GEORGIANA Donovan - Last Filed: 04/29/24 14:15> History of Present Illness Chief Complaint: Other, Pain/Inj Narrative Narrative: Patient is a 69-year-old female with history of breast cancer who is currently receiving treatment at [facility], last chemotherapy was greater than 2 weeks ago. Patient also has high blood pressure, atrial valve replacement, defibrillator, pacemaker, CAD who presents to the emergency department with right-sided shoulder blade pain. Patient states that started 4 days ago, she states she is now having difficulty lifting her arms, moving her neck, there is significant pain on palpation. She denies any fever chills nausea or vomiting. She states the pain is unbearable, she been using Tylenol at home is not helping. She denies any shortness of breath or chest pain. [facility] <GEORGIANA Donovan - Last Filed: 04/29/24 14:15> [facility] Medical History (Updated 04/29/24 @ 14:13 by GEORGIANA Donovan) Urinary urgency Metastasis to bone Regional lymph node metastasis present Invasive ductal carcinoma of breast Aortic valve regurgitation due to aortic dilation Breast nodule Abnormal findings on imaging test Breast mass, right Skin mole Left knee pain Anxiety and depression Diarrhea Major depressive disorder, recurrent Health care maintenance Flu vaccine need Skin tags, multiple acquired Left hand pain History of cyst of breast History of stroke Heart valve problem GERD (gastroesophageal reflux disease) Hyperlipemia Hypertension Home Medications ?Medication ?Instructions ?Recorded ?Last Taken ?Type aspirin 81 mg chewable tablet 81 mg PO ONCE 11/23/17 Unknown History melatonin 10 mg capsule 10 mg PO HS PRN 11/23/17 Unknown History calcium carbonate 600 mg PO BID 06/30/18 Unknown History cholecalciferol (vitamin D3) 50 2,000 unit PO DAILY 06/30/18 Unknown History mcg (2,000 unit) capsule nitroglycerin 0.4 mg sublingual See Rx Instructions .Route 06/03/23 Unknown Rx tablet .COMPLEX #75 tabs lisinopril 40 mg tablet 40 mg PO QDAY #90 tabs 09/22/23 Unknown Rx sertraline 100 mg tablet 100 mg PO QDAY #90 tabs 11/01/23 Unknown Rx amlodipine 10 mg tablet 10 mg PO QDAY #90 tabs 11/15/23 Unknown Rx mphiddhn-wxc-muhes acid 0.4 1 tab PO DAILY 11/24/23 Unknown History mg-lycopene 300 mcg-lutein 250 mcg tablet (Complete Multivitamin Adult 50 Plus) trazodone 100 mg tablet 100 mg PO QHS PRN insomnia #90 tabs 01/10/24 Unknown Rx pantoprazole 40 mg tablet,delayed 40 mg PO QDAY #90 tabs 03/03/24 Unknown Rx release rosuvastatin 20 mg tablet 20 mg PO DAILY #90 tabs 03/03/24 Unknown Rx sotalol 120 mg tablet (Betapace) 120 mg PO Q12H #180 tabs 03/03/24 Unknown Rx oxycodone-acetaminophen 5 mg-325 1 tab PO Q8H PRN pain 3 days #10 04/29/24 Unknown Rx mg tablet (Percocet) tabs Allergy/AdvReac Type Severity Reaction Status Date / Time No Known Allergies Allergy Verified 04/29/24 11:23 Family History Mother CVA (cerebral vascular accident) Breast cancer, Onset Age: 35 Father Heart disease Sister Breast cancer, Onset Age: 50 Heart disease Hypertension Cancer lung Surgical History History of hysterectomy Cardiac defibrillator in place 4 stents cardiac rythem pacemaker triple bypass, valve replacement, nad aneurysm repair History of tonsillectomy Social History Smoking Status: Former smoker Tobacco: How many years used: 20 how long ago did patient quit smokin alcohol intake: never substance use type: does not use what type of physical activity do you participate in: none ROS <GEORGIANA Donovan - Last Filed: 04/29/24 14:15> ROS ED ROS Narrative Constitutional: Negative for fever, chills, weight loss, weakness Eyes: Negative for vision loss, vision change, double vision ENT: Negative for any sore throat, ear pain, congestion Cardiovascular: Negative for any chest pain, tightness, palpitations Respiratory: Negative for any cough, sputum production, hemoptysis, dyspnea, dyspnea on exertion, orthopnea Gastrointestinal: Negative for any abdominal pain, nausea, vomiting, diarrhea, constipation, blood in stool, blood in vomit : Negative for any urinary frequency, dysuria, retention, blood in urine Muscle skeletal: Negative for any neck pain. Positive for right upper back pain, right shoulder blade pain Neurological: Negative for any headache, syncope, dizziness Skin: Negative for any rashes, itching, abrasions, lacerations Psychiatric: Negative for any depression, anxiety, stress, suicidal ideation, homicidal ideation Hematologic: Negative for any excessive bruising, easy bleeding EXAM <GEORGIANA Donovan - Last Filed: 04/29/24 14:15> Physical Exam Narrative Exam Narrative: Vital signs reviewed. HEET: Head normocephalic atraumatic, TMs clear bilaterally. Posterior pharynx is clear, moist mucous membranes. Nares clear bilaterally. Neck: Supple with no lymphadenopathy or tenderness. No signs of meningismus. Patient has no midline spinal tenderness, patient does have pain with flexion or extension and goes right to her right shoulder blade. Cardiac: Regular rate and rhythm no murmurs gallops or rubs, equal peripheral pulses bilaterally. Respiratory: Lungs clear to auscultation bilaterally. No chest tenderness. Abdomen: Soft, nontender, nondistended. No abdominal bruit or pulsatile masses. No hepatosplenomegaly Extremities: No peripheral edema, no signs of gross trauma or deformity. Active full range of motion of all extremities. Neuro: Cranial nerves II through XII intact, no focal neurological deficits. Skin: Clean dry and intact with no rash, purpura, petechiae, vesicles or pustules. Backs/flank: No CVA tenderness, no midline spinal tenderness, no deformity. Pain to the right trapezius muscle goes right to the superior right shoulder blade that is more midline. There is significant pain on palpation. Psych: Normal mood and affect. No SI, HI or acute psychosis. Const Vital Signs: 04/29/24 11:23 04/29/24 11:33 04/29/24 11:47 Temperature 97.8 F 97.8 F Temperature Source Temporal Temporal Pulse Rate 83 82 Respiratory Rate 16 14 Respiratory Effort Normal Non-Labored Respiratory Pattern Normal Blood Pressure 125/99 H 125/99 H Blood Pressure Mean 107 107 Pulse Ox 92 92 Oxygen Delivery Method Room Air Room Air 04/29/24 13:45 04/29/24 13:45 04/29/24 14:37 Temperature 97.1 F L 96 F L Temperature Source Temporal Pulse Rate 69 69 69 Respiratory Rate 12 12 14 Respiratory Effort Respiratory Pattern Blood Pressure 123/57 H 123/57 H 121/61 H Blood Pressure Mean 79 79 81 Pulse Ox 100 100 95 Oxygen Delivery Method Room Air Room Air <Estrada Watkins MD - Last Filed: 04/29/24 15:03> Physical Exam Const Vital Signs: 04/29/24 11:23 04/29/24 11:33 04/29/24 11:47 Temperature 97.8 F 97.8 F Temperature Source Temporal Temporal Pulse Rate 83 82 Respiratory Rate 16 14 Respiratory Effort Normal Non-Labored Respiratory Pattern Normal Blood Pressure 125/99 H 125/99 H Blood Pressure Mean 107 107 Pulse Ox 92 92 Oxygen Delivery Method Room Air Room Air 04/29/24 13:45 04/29/24 13:45 04/29/24 14:37 Temperature 97.1 F L 96 F L Temperature Source Temporal Pulse Rate 69 69 69 Respiratory Rate 12 12 14 Respiratory Effort Respiratory Pattern Blood Pressure 123/57 H 123/57 H 121/61 H Blood Pressure Mean 79 79 81 Pulse Ox 100 100 95 Oxygen Delivery Method Room Air Room Air MDM <GEORGIANA Donovan - Last Filed: 04/29/24 14:15> [facility] Lab Data Labs: Laboratory Results - last 24 hr 04/29/24 13:00 WBC 13.2 H RBC 3.85 L Hgb 10.8 L Hct 33.0 L MCV 85.7 MCH 28.1 MCHC 32.7 RDW Std Deviation 41.1 RDW Coeff of Margareth 14.2 Plt Count 329 MPV 10.2 Immature Gran % (Auto) 1.600 H Neut % (Auto) 77.7 H Lymph % (Auto) 7.1 L Turner % (Auto) 13.1 H Eos % (Auto) 0.1 Baso % (Auto) 0.4 Absolute Neuts (auto) 10.2 H Absolute Lymphs (auto) 0.93 Nucleated RBC % 0 Differential Comment SCANNED Diff Path Review May foll Sodium 131 L Potassium 4.1 Chloride 98 Carbon Dioxide 28.0 Anion Gap 5 BUN 13 Creatinine 0.93 Estim Creat Clear Calc 48.14 Est GFR (MDRD) Af Amer 77 Est GFR (MDRD) Non-Af 63 BUN/Creatinine Ratio 14.0 Glucose 115 H Calcium 8.9 Treatment and Re-Evaluation :: Differential diagnosis includes however is not limited to: Cervical strain, muscle spasm, spinal abscess, metastasis of cancer, Patient appears to be in mild distress secondary to pain in the right side of her neck, right shoulder blade. Patient's vital signs are stable, patient is appearing nontoxic. Physical examination is grossly with more muscle skeletal like presentation, patient does agree. Patient will be treated with IM morphine, oral Zofran. Patient be reevaluated. On reevaluation, the patient did not have any improvement after the IM dose of morphine. Patient received basic laboratory values including CBC, BMP, I will provide the patient with IV Dilaudid. Patient again will be reevaluated. On reevaluation, the patient was feeling much improved after the IV Dilaudid. Laboratory values showed a slight leukocytosis with a white blood count 13.2, hemoglobin 10.8, patient is usually between 14 and 13. Patient is 2 weeks postchemotherapy. Patient's chemistries showed a slight hyponatremia with sodium of 131, remainder was unremarkable. On reevaluation, the patient had much better range of motion, patient was given IV fluids. Patient be given a prescription for Percocet for home. She will need to follow-up closely outpatient. She is happy with the plan of care, instructed return for any worsening symptoms. Stable for discharge. <Estrada Watkins MD - Last Filed: 04/29/24 15:03> [facility] Narrative Medical decision making narrative: Dr. Watkins: I have personally performed a face to face assessment of the patient and have reviewed the KATHY Note. I performed a substantive portion of the visit including all aspects of the following. My celestin findings include: History is right trapezial pain, generalized weakness. No fall or injury. History of breast carcinoma on chemotherapy. Exam is afebrile. Vital signs noted. Positive reproducible right trapezial pain more posteriorly. Neurovascular intact distally right arm. Medical Decision Making: Patient given intramuscular morphine initially. Given her weakness, she states she had diarrhea recently. Check labs. White count slightly elevated at 13.2 in review of her laboratory work which I think is nonspecific, hemoglobin 10.8, platelet count normal at 329. Sodium is low at 131 with normal chloride of 98 and potassium normal at 4.1. Glucose appropriately elevated at 115 with normal anion gap of 5. IV Dilaudid. I do not feel she needs imaging. She feels improved after IV fluids. She will be written for analgesic and narcotic form. Follow-up primary care. Discharge. Other additions or changes: [None] History & Record Review Discussion w/independent historian: Patient Lab Data Attestation: I reviewed the patient's lab results. Labs: Laboratory Results - last 24 hr 04/29/24 13:00 WBC 13.2 H RBC 3.85 L Hgb 10.8 L Hct 33.0 L MCV 85.7 MCH 28.1 MCHC 32.7 RDW Std Deviation 41.1 RDW Coeff of Margareth 14.2 Plt Count 329 MPV 10.2 Immature Gran % (Auto) 1.600 H Neut % (Auto) 77.7 H Lymph % (Auto) 7.1 L Turner % (Auto) 13.1 H Eos % (Auto) 0.1 Baso % (Auto) 0.4 Absolute Neuts (auto) 10.2 H Absolute Lymphs (auto) 0.93 Nucleated RBC % 0 Differential Comment SCANNED Diff Path Review May foll Sodium 131 L Potassium 4.1 Chloride 98 Carbon Dioxide 28.0 Anion Gap 5 BUN 13 Creatinine 0.93 Estim Creat Clear Calc 48.14 Est GFR (MDRD) Af Amer 77 Est GFR (MDRD) Non-Af 63 BUN/Creatinine Ratio 14.0 Glucose 115 H Calcium 8.9 Discharge Plan Triage Chief Complaint: Other, Pain/Inj Other Complaint: Fatigue ED Midlevel Provider: Sriram Watts ED Provider: Estrada Watkins Dx/Rx/DC Orders Clinical Impression: Sprain of right trapezoid ligament, History of breast cancer, Acute hyponatremia Instructions: Treating?Strains and Sprains, ED Hyponatremia Prescriptions: New oxycodone-acetaminophen [Percocet] 5-325 mg tablet 1 tab PO Q8H PRN (Reason: pain) 3 Days Qty: 10 0RF No Action aspirin 81 mg tablet,chewable 81 mg PO ONCE melatonin 10 mg capsule 10 mg PO HS PRN calcium carbonate 600 mg calcium (1,500 mg) tablet 600 mg PO BID cholecalciferol (vitamin D3) 2,000 unit capsule 2,000 unit PO DAILY Complete MV Adult 50 Plus 0.4 mg-300 mcg- 250 mcg tablet 1 tab PO DAILY nitroglycerin 0.4 mg tablet, sublingual See Rx Instructions .ROUTE .COMPLEX Qty: 75 1RF Dose Instruction: DISSOLVE 1 TABLET UNDER TONGUE EVERY 5 MINUTES NEEDED FOR CHEST PAIN Rx Instructions: DISSOLVE 1 TABLET UNDER TONGUE EVERY 5 MINUTES NEEDED FOR CHEST PAIN lisinopril 40 mg tablet 40 mg PO QDAY Qty: 90 3RF sertraline 100 mg tablet 100 mg PO QDAY Qty: 90 2RF amlodipine 10 mg tablet 10 mg PO QDAY Qty: 90 3RF trazodone 100 mg tablet 100 mg PO QHS PRN (Reason: insomnia) Qty: 90 1RF sotalol [Betapace] 120 mg tablet 120 mg PO Q12H Qty: 180 3RF rosuvastatin 20 mg tablet 20 mg PO DAILY Qty: 90 3RF Rx Instructions: TAKE 1 TABLET BY MOUTH ONCE DAILY pantoprazole 40 mg tablet,delayed release (DR/EC) 40 mg PO QDAY Qty: 90 3RF Primary Care Provider: Mayra Fallon Referrals: Mayra Fallon MD [Primary Care Provider] - Activity Restrictions/Additional Instructions: Please use the Percocet as needed, continue to ice, heat, perform gentle stretching. Return for any worsening symptoms. Your sodium was 131 today, your white blood cell count was 13, follow-up outpatient. Print Language: Divehi Disposition Disposition: Home, Self Care Discharge Date/Time: 04/29/24 14:38
[2024-04-29] MEDS: Ondansetron ODT 4 MG Tablet PO (11:41)
[2024-04-29] MEDS: Morphine 4 MG/ML Syringe IM (11:41)
[2024-04-29] MEDS: HYDROmorphone 0.5 MG/0.5 ML SYRINGE IV (12:59)
[2024-04-29 13:14] LABS: Absolute Lymphocyte Count 0.93 X10^3/uL (0.83-4.51); Absolute Neutrophil Count 10.2 X10^3/uL (2.0-7.7); Basophil# 0.05 X10^3/uL; Basophil% 0.4 % (0-1); Eosinophil# 0.01 X10^3/uL; Eosinophils% 0.1 % (0-5); Hemoglobin 10.8 g/dL (12.0-15.0); Lymphocyte # 0.93 X10^3/ul (0.83-4.51); Lymphocyte % 7.1 % (19-41); Mean Corp Hgb Conc 32.7 g/dL (32-36); Mean Corpuscular Hgb 28.1 pg (27.0-32.0); Mean Corpuscular Volume 85.7 fL (81-99); Mean Platelet Vol. 10.2 fl (6.2-12.0); Monocyte# 1.72 X10^3/uL; Monocyte% 13.1 % (0-10); NRBC Flagged by Analyzer 0 % (0-5); Neutrophil # 10.23 X10^3/uL (2.7-7.7); Neutrophil % 77.7 % (47-70); POSITIVE DIFFERENTIAL YES; Platelet Count 329 K/mm3 (150-450); RBC Distribution Width CV 14.2 % (11.6-14.6); RBC Distribution Width SD 41.1 fl (35.1-43.9); Red Blood Count 3.85 M/mm3 (4.2-5.4); White Blood Count 13.2 K/mm3 (4.4-11.0)
[2024-04-29 13:15] LABS: Differential Indicated SCAN CRITERIA MET
[2024-04-29 13:21] LABS: Anion Gap 5 (5-15); BUN 13 mg/dL (7-18); Calcium,Total 8.9 mg/dL (8.5-10.1); Chloride 98 mmol/L (98-107); Creatinine, Serum 0.93 mg/dL (0.55-1.02); EST Glomerular Filtration Rate 63 mL/min (>60); Est Glom Filt Rate - Afr Amer 77 mL/min (>60); Estimated Creatinine Clearance 48.14 ml/min; Glucose 115 mg/dL (74-106); Potassium 4.1 mmol/L (3.5-5.1); Sodium Level 131 mmol/L (136-145)
[2024-04-29 13:36] LABS: Differential Comment SCANNED
[2024-04-29 13:45] VITALS: BP 123/57; PULSE 69; RESP 12; TEMP 36.2; O2SAT 100
[2024-04-29] MEDS: 0.9% Normal Saline (1000mL) 1,000 ML 999 ML IV (13:47)
--- NOTE | 2024-04-29 13:48 | ED.RN ---
Dr. Watkins confirms to give this patient his ordered dose of 1000ml; at same time of his order, Sriram Araiza ordered 500ml. [address] dennis
[2024-04-29 14:37] VITALS: BP 121/61; PULSE 69; RESP 14; TEMP 35.5; O2SAT 95
[2024-05-01 14:59] LABS: Pathologist Review Reviewed
== END 2024-04-29 14:38 | disposition home or self-care (01) ==
PROVIDERS: Nurse Practitioner; Emergency Provider Emergency Medicine; PCP Internal Medicine; Visit Provider Emergency Medicine
DX: R53.83 Other fatigue (principal); C50.919 Malignant neoplasm of unspecified site of unspecified female breast; I25.10 Atherosclerotic heart disease of native coronary artery without angina pectoris; M25.511 Pain in right shoulder; R53.1 Weakness; Z87.891 Personal history of nicotine dependence; E78.5 Hyperlipidemia, unspecified; I10 Essential (primary) hypertension; Z95.2 Presence of prosthetic heart valve; Z95.810 Presence of automatic (implantable) cardiac defibrillator; K21.9 Gastro-esophageal reflux disease without esophagitis
CPT/HCPCS: 80048; 85025; 96361; 96372; 96374; 99282; J7030

== ENCOUNTER 2024-06-04 09:05 | Inpatient (IN) | payer MEDICARE, MEDICAID, SELFPAY ==
[2024-06-04] VITALS (15 sets, daily range): BP systolic 79–124; BP diastolic 52–68; PULSE 99–144; RESP 16–28; TEMP 37–37.3; O2SAT 94–98
--- NOTE | 2024-06-04 09:31 | EKG12_ITS ---
Test Reason : Blood Pressure : / mmHG Vent. Rate : 106 BPM Atrial Rate : 106 BPM P-R Int : 184 ms QRS Dur : 096 ms QT Int : 380 ms P-R-T Axes : 077 -06 131 degrees QTc Int : 504 ms Sinus tachy[address] Nonspecific ST-T changes Abnormal ECG Confirmed by GHANSHYAM MURILLO, ЕЛЕНА ([id number]), fashion editor THAI LEE ([id number]) on 06/09/2024 6:48:17 AM Referred By: Confirmed By:UMAIR MORRISSEY MD
[2024-06-04] MEDS: 0.9% Normal Saline (1000mL) 1,000 ML 1000 ML IV (10:14)
--- NOTE | 2024-06-04 10:17 | EX.ED.DYSGE1 ---
HPI History of Present Illness Chief Complaint: Weakness Informant: patient Narrative Narrative: Patient is a 69-year-old female with history of metastatic breast cancer, currently undergoing chemotherapy (last chemo was 4 days ago), aortic valve repair with a prosthetic valve, coronary artery disease, hypertension, hyperlipidemia and GERD presenting with generalized weakness and not feeling good. She notes she has been feeling of the past few days. Is been lightheaded. Denies any associated fever. Denies any chest pain, shortness breath or cough. Denies any swelling of her legs. Denies any nausea vomiting, abdominal pain or change in her bowel movements. Does not report any blood in her stool. Denies any urinary symptoms. Thinks this might be associated with her chemo and her white blood cells being low but is not sure. Came in for further evaluation. States that she is due to have her aortic valve replaced routinely at some point. Notes she has had some mild rhinorrhea last few days. Lives at home with a friend but denies any sick contacts. [facility] Medical History Urinary urgency Metastasis to bone Regional lymph node metastasis present Invasive ductal carcinoma of breast Aortic valve regurgitation due to aortic dilation Breast nodule Abnormal findings on imaging test Breast mass, right Skin mole Left knee pain Anxiety and depression Diarrhea Major depressive disorder, recurrent Health care maintenance Flu vaccine need Skin tags, multiple acquired Left hand pain History of cyst of breast History of stroke Heart valve problem GERD (gastroesophageal reflux disease) Hyperlipemia Hypertension Home Medications ?Medication ?Instructions ?Recorded ?Last Taken ?Type aspirin 81 mg chewable tablet 81 mg PO DAILY 11/23/17 06/03/24 History melatonin 10 mg capsule 10 mg PO HS PRN sleep 11/23/17 06/03/24 History calcium carbonate 600 mg PO BID 06/30/18 06/03/24 History amlodipine 10 mg tablet 10 mg PO QDAY #90 tabs 05/11/24 06/03/24 Rx cyclobenzaprine 10 mg tablet 10 mg PO BID PRN muscle spasm #90 05/11/24 06/03/24 Rx tabs lisinopril 40 mg tablet 40 mg PO QDAY #90 tabs 05/11/24 06/03/24 Rx nitroglycerin 0.4 mg sublingual See Rx Instructions .Route 05/11/24 Unknown Rx tablet .COMPLEX #75 tabs pantoprazole 40 mg tablet,delayed 40 mg PO QDAY #90 tabs 05/11/24 06/03/24 Rx release rosuvastatin 20 mg tablet 20 mg PO DAILY #90 tabs 05/11/24 06/03/24 Rx sertraline 100 mg tablet 100 mg PO QDAY #90 tabs 05/11/24 06/03/24 Rx sotalol 120 mg tablet (Betapace) 120 mg PO Q12H #90 tabs 05/11/24 06/03/24 Rx trazodone 100 mg tablet 100 mg PO QHS PRN insomnia #90 tabs 05/11/24 06/03/24 Rx chlorhexidine gluconate 0.12 % 15 ml PO BID 06/04/24 Unknown History mouthwash clopidogrel 75 mg tablet 75 mg PO DAILY 06/04/24 06/03/24 History filgrastim-aafi 300 mcg/0.5 mL 300 mcg subcut DAILY CHEMO 06/04/24 06/03/24 History subcutaneous syringe (Nivestym) lidocaine-prilocaine 2.5 %-2.5 % 1 applic topical X1 06/04/24 06/03/24 History topical cream loratadine 10 mg tablet 10 mg PO DAILY 06/04/24 Unknown History olanzapine 2.5 mg tablet 2.5 mg PO QHS 06/04/24 06/03/24 History Allergy/AdvReac Type Severity Reaction Status Date / Time No Known Allergies Allergy Verified 06/04/24 09:08 Family History Mother CVA (cerebral vascular accident) Breast cancer, Onset Age: 35 Father Heart disease Sister Breast cancer, Onset Age: 50 Heart disease Hypertension Cancer lung Surgical History History of hysterectomy Cardiac defibrillator in place 4 stents cardiac rythem pacemaker triple bypass, valve replacement, nad aneurysm repair History of tonsillectomy Social History Smoking Status: Former smoker Tobacco: How many years used: 20 how long ago did patient quit smokin alcohol intake: never substance use type: does not use what type of physical activity do you participate in: none ROS ROS ED Constitutional Constitutional ED: Reports other Details: fatigue ; Denies chills or fever(s) ENT ENT ED: Reports rhinorrhea; Denies sore throat Cardiovascular Cardiovascular: Denies chest pain Respiratory/Chest Respiratory/Chest: Denies cough Gastrointestinal Gastrointestinal: Denies abdominal pain, constipation, diarrhea, nausea or vomiting Genitourinary Genitourinary ED: Denies dysuria or hematuria Musculoskeletal Musculoskeletal: Denies arthralgias or myalgias Integumentary Denies rash Neurologic Neurologic: Reports weakness; Denies headache(s) Hematologic/Lymphatic Hematologic/Lymphatic: Denies easy bruising EXAM Physical Exam Const Vital Signs: 06/04/24 09:09 06/04/24 09:09 06/04/24 09:14 Temperature 98.8 F 98.8 F Temperature Source Oral Oral Pulse Rate 120 H 118 H Respiratory Rate 18 16 Respiratory Effort Normal Respiratory Pattern Normal Blood Pressure 96/52 L 96/52 L Blood Pressure Mean 66 66 Blood Pressure Source Blood Pressure Position Blood Pressure Location Pulse Ox 96 95 Oxygen Delivery Method Room Air Room Air 06/04/24 09:30 06/04/24 11:05 06/04/24 13:00 Temperature Temperature Source Pulse Rate 112 H 115 H Respiratory Rate 18 18 Respiratory Effort Respiratory Pattern Blood Pressure 110/60 93/59 L 79/56 L Blood Pressure Mean 76 70 63 Blood Pressure Source Blood Pressure Position Blood Pressure Location Pulse Ox 96 96 Oxygen Delivery Method Room Air Room Air 06/04/24 13:27 06/04/24 13:42 06/04/24 14:42 Temperature 98.6 F 98.9 F 98.9 F Temperature Source Oral Oral Oral Pulse Rate 101 H 103 H 102 H Respiratory Rate 19 H 18 16 Respiratory Effort Respiratory Pattern Blood Pressure 100/65 102/59 L 94/68 Blood Pressure Mean 76 73 76 Blood Pressure Source Monitor Monitor Monitor Blood Pressure Position Semi-Fowlers Supine Blood Pressure Location Left Arm Left Arm Pulse Ox 96 98 96 Oxygen Delivery Method Room Air Room Air Room Air 06/04/24 15:39 Temperature 98.9 F Temperature Source Oral Pulse Rate 99 Respiratory Rate 24 H Respiratory Effort Respiratory Pattern Blood Pressure 104/59 L Blood Pressure Mean 74 Blood Pressure Source Monitor Blood Pressure Position Semi-Fowlers Blood Pressure Location Left Arm Pulse Ox 97 Oxygen Delivery Method Room Air Positive well nourished Constitutional Narrative: ill appearing General Appearance ED: NAD and pallor HEENT Reports moist mucous membranes Eyes PERRL and EOMs intact bilaterally General Eye ED: Negative for scleral icterus Neck supple Chest Wall inspection of chest normal Resp normal respiratory effort and clear to auscultation bilaterally Cardio regular rhythm Rate: tachycardic GI normal to inspection, nondistended, normoactive bowel sounds and non-tender GI Narrative: No stool in the rectal vault appreciated however because the sample was sent and negative for Hemoccult. Auscultation: normoactive bowel sounds Palpation: soft; Negative for tender Back/Spine no CVA tenderness Extremity normal to inspection Extremity Narrative: Tender palpation of the left proximal thigh. Patient states she been laying on it. No obvious deformity. Pain with attempted range of motion of the hip but more so from palpation of the thigh. Compartments himself's are soft. General Extremety ED: Negative for edema General Extremity: Negative for edema Neuro oriented x3 Sensorium / Orientation: alert Motor Exam: general weakness Psych mental status grossly normal Skin no rashes or lesions noted General Skin Exam: pallor MDM MDM MDM Narrative Medical decision making narrative: Patient evaluated for generalized weakness. She appears nontoxic but ill. Vital signs significant for soft blood pressure and tachycardic. No acute hypoxia. She would not complain of any particular symptoms just feeling weak. Differential includes neutropenic fever, infection, COVID-19, dehydration as well as decompensated cardiac process. Patient is given IV fluids in the ER. Will obtain a broad workup looking for cause of her symptoms and give IV fluids in the meantime. Clinically does not appear fluid overloaded. I do not appreciate any crackles in her lungs or edema. No obvious focal infectious symptoms on physical exam. EKG does show a strain pattern. High-sensitivity troponin is significantly elevated 771. Patient has multiple laboratory values including pancytopenia now with a hemoglobin of 6.9 and platelets of 18,000. I suspect this is chemo related. Her sister is now at the bedside who has her prior labs from 05/30 which showed hemoglobin of 7.8 and platelets of 155. Patient also has worsening hyponatremia with a sodium of 126 (was 133 5 days ago). Case initially discussed with her qualified craft worker electrician, Dr. Jung. We were able to determine that patient had her aortic valve replaced in 2004. See that she is now following with for all of her needs including chemotherapy. He is happy to see her in consult but questions if she would be better served at . She is thrombocytopenic with so we will defer any anticoagulation or antiplatelet therapy at this time. He agrees with likely this is a NSTEMI secondary to anemia and strain pattern and not an acute coronary syndrome. Patient is ordered 2 units of packed red blood cells as I suspect the anemia is worsening the NSTEMI. Spoke with the patient's oncologist, Dr. Vargas at . He accepts the patient up at main [facility]. Will discuss the case as well with cardiology to see if they would like her in the CVICU versus on the hematologic service. Shortly after the patient's blood was started patient had an episode of chest discomfort and lightheadedness. She was noticed to have a tachyarrhythmia on telemetry with demand pacing present. This subsequently resolved. Repeat EKG obtained which at this time actually showed improvement of her T wave changes. Spoke with cardiology who feels that admission to the heme-onc service is appropriate. Patient is excepted and wait on a bed. Is given fluid bolus as she started to have soft blood pressures again before the blood is started. Heart rate is improving and blood pressure is responding. Hemoccult obtained and pending with no obvious blood or melena on digital rectal exam. Patient is noted to have significant pain of her thighs. She states she has been laying around a lot. Will obtain an x-ray given that she denies any fall or trauma and also add on a CK level. CK level is significantly elevated at 904 which is consistent with rhabdomyolysis. I do not suspect compartment syndrome at this time. Patient is declining pain medicine. Repeat ice his knee troponin is still elevated but downtrending which is reassuring. Lab Data Attestation: I reviewed the patient's lab results. Labs: Laboratory Results - last 24 hr 06/04/24 06/04/24 06/04/24 10:14 11:11 11:40 WBC 10.6 RBC 2.33 L Hgb 6.9 L Hct 20.6 L MCV 88.4 MCH 29.6 MCHC 33.5 RDW Std Deviation 54.7 H RDW Coeff of Margareth 18.4 H Plt Count 18 L* MPV 10.7 Neut % (Auto) Not Reportable Absolute Neuts (auto) 10.6 H Absolute Lymphs (auto) 0.00 L Total Counted 100 Neutrophils % (Manual) 100 H Diff Path Review May foll Hypersegmented Neuts 1+ H Platelet Estimate MKD DEC Hypochromasia 1+ Anisocytosis 1+ Sodium 126 L Potassium 4.7 Chloride 93 L Carbon Dioxide 24.0 Anion Gap 9 BUN 41 H Creatinine 1.14 H Est GFR (MDRD) Af Amer 61 Est GFR (MDRD) Non-Af 50 L BUN/Creatinine Ratio 36.0 H Glucose 140 H Lactic Acid 1.2 Calcium 7.8 L Total Bilirubin 1.80 H AST 92 H ALT 116 H Alkaline Phosphatase 143 H Total Creatine Kinase Troponin I High Sens 771 H* B-Natriuretic Peptide 638.7 H Total Protein 6.0 L Albumin 2.6 L Globulin 3.4 Albumin/Globulin Ratio 0.8 L Urine Color Yellow Urine Clarity Sl. Cloudy Urine pH 5.0 Ur Specific [place] 1.020 Urine Protein 30 H Urine Glucose (UA) Normal Urine Ketones Negative Urine Occult Blood 250 H Urine Nitrite Negative Urine Bilirubin Negative Urine Urobilinogen 1 H Ur Leukocyte Esterase Negative Urine RBC 0 SEEN Urine WBC 0 SEEN Ur Squamous Epith Cells 0-5 SEEN Urine Bacteria 0 SEEN Fine Granular Casts 0-5 SEEN Urine Mucus 0 SEEN Blood Type B POSITIVE Antibody Screen NEGATIVE Crossmatch See Detail 06/04/24 12:45 WBC RBC Hgb Hct MCV MCH MCHC RDW Std Deviation RDW Coeff of Margareth Plt Count MPV Neut % (Auto) Absolute Neuts (auto) Absolute Lymphs (auto) Total Counted Neutrophils % (Manual) Diff Path Review Hypersegmented Neuts Platelet Estimate Hypochromasia Anisocytosis Sodium Potassium Chloride Carbon Dioxide Anion Gap BUN Creatinine Est GFR (MDRD) Af Amer Est GFR (MDRD) Non-Af BUN/Creatinine Ratio Glucose Lactic Acid Calcium Total Bilirubin AST ALT Alkaline Phosphatase Total Creatine Kinase 904 H Troponin I High Sens 686 H* B-Natriuretic Peptide Total Protein Albumin Globulin Albumin/Globulin Ratio Urine Color Urine Clarity Urine pH Ur Specific [place] Urine Protein Urine Glucose (UA) Urine Ketones Urine Occult Blood Urine Nitrite Urine Bilirubin Urine Urobilinogen Ur Leukocyte Esterase Urine RBC Urine WBC Ur Squamous Epith Cells Urine Bacteria Fine Granular Casts Urine Mucus Blood Type Antibody Screen Crossmatch Radiography Diagnostic Testing: Clinical Impression(s) from Imaging Studies Chest X-Ray 06/04/24 10:20 IMPRESSION: Stable chest with no acute or active cardiopulmonary disease. Electronically Signed: Toby Plata MD at 10:56 EDT Reading Location ID and State: [address] [place] [address] , Service support , Rhythm Strip Rhythm Strip: Sinus Tach Rate: 120 Ectopy: None EKG Initial EKG: Attestation: I personally reviewed and interpreted this EKG as follows: Interpretation: Sinus Tachycardia Comments: Sinus tachycardia at a rate of 120 bpm Normal axis Normal intervals No voltage criteria for LVH Slight ST depressions in 2, 1 and aVL as well as V4 through V6 with no reciprocal changes. Prior EKG tracings: not available for review Prior: No Prior Follow-up EKG: Attestation: I personally reviewed and interpreted this EKG as follows: Interpretation: Sinus Tachycardia Comments: Sinus tachycardia rate of 106 bpm with Normal axis Improvement of ST depressions in the lateral leads but T wave inversion still present Management Discussion w/another healthcare provider: Denitrator Operator Critical Care Time Critical Care Time: Yes Critical care time (excluding procedures): 30-74 minutes (55), Discussing w/Patient &/or Family/University Archivist, Discussing w/Consultants (Cardiology, hematology) and Arranging Admission or Transfer (Transferred to ) Discharge Plan Triage Chief Complaint: Weakness ED Provider: Angelica Ingram Dx/Rx/DC Orders Clinical Impression: Symptomatic anemia, Thrombocytopenia, Rhabdomyolysis, Debility, Non-ST elevation MA (NSTEMI) Prescriptions: No Action aspirin 81 mg tablet,chewable 81 mg PO DAILY melatonin 10 mg capsule 10 mg PO HS PRN (Reason: sleep) calcium carbonate 600 mg calcium (1,500 mg) tablet 600 mg PO BID rosuvastatin 20 mg tablet 20 mg PO DAILY Qty: 90 3RF Rx Instructions: TAKE 1 TABLET BY MOUTH ONCE DAILY pantoprazole 40 mg tablet,delayed release (DR/EC) 40 mg PO QDAY Qty: 90 3RF trazodone 100 mg tablet 100 mg PO QHS PRN (Reason: insomnia) Qty: 90 1RF sertraline 100 mg tablet 100 mg PO QDAY Qty: 90 2RF lisinopril 40 mg tablet 40 mg PO QDAY Qty: 90 3RF nitroglycerin 0.4 mg tablet, sublingual See Rx Instructions .ROUTE .COMPLEX Qty: 75 1RF Dose Instruction: DISSOLVE 1 TABLET UNDER TONGUE EVERY 5 MINUTES NEEDED FOR CHEST PAIN Rx Instructions: DISSOLVE 1 TABLET UNDER TONGUE EVERY 5 MINUTES NEEDED FOR CHEST PAIN amlodipine 10 mg tablet 10 mg PO QDAY Qty: 90 3RF sotalol [Betapace] 120 mg tablet 120 mg PO Q12H Qty: 90 3RF cyclobenzaprine 10 mg tablet 10 mg PO BID PRN (Reason: muscle spasm) Qty: 90 0RF Nivestym 300 mcg/0.5 mL syringe 300 mcg subcut DAILY Rx Instructions: //INJECT SUBCUTANEOUSLY FOR 4 DAYS STARTING 24 HOURS AFTER EACH CHEMO, LAST DOSE 06/03/24 WHICH WAS DOSE #3 olanzapine 2.5 mg tablet 2.5 mg PO QHS loratadine 10 mg tablet 10 mg PO DAILY Rx Instructions: TAKE DAY OF CHEMO, AND 5 DAYS AFTER lidocaine-prilocaine 2.5-2.5 % cream 1 applic topical X1 chlorhexidine gluconate 0.12 % mouthwash 15 ml PO BID Rx Instructions: TAKE NIGHT BEFORE AND MORNING OF SURGERY SCHEDULED IN JULY clopidogrel 75 mg tablet 75 mg PO DAILY Primary Care Provider: Mayra Fallon Referrals: Mayra Fallon MD [Primary Care Provider] - Print Language: Ukrainian Disposition Disposition: Acute Care Hospital Discharge Location: [facility]
--- NOTE | 2024-06-04 10:20 | RAD_ITS ---
STUDY: X-RAY CHEST REASON FOR EXAM: Female, 69 years old. Weakness. TECHNIQUE: Single frontal view of the chest. COMPARISON: February 16, 2012 FINDINGS: Right internal jugular catheter with tip projected over the mid-SVC. Stable cardiomegaly, sternotomy wires, changes of coronary artery bypass grafting, aortic tortuosity with calcification and prominent central pulmonary arteries Stable dual-lead cardiac pacer. No abnormality of the visualized soft tissue structures of the upper abdomen. RAD/Chest 1 View (Portable) IMPRESSION: Stable chest with no acute or active cardiopulmonary disease. Electronically Signed: Toby Plata MD at 10:56 EDT ,
[2024-06-04 10:27] LABS: Hematocrit 20.6 % (37-47); Hemoglobin 6.9 g/dL (12.0-15.0); Mean Corp Hgb Conc 33.5 g/dL (32-36); Mean Corpuscular Hgb 29.6 pg (27.0-32.0); Mean Corpuscular Volume 88.4 fL (81-99); Mean Platelet Vol. 10.7 fl (6.2-12.0); POSITIVE COUNT YES; POSITIVE DIFFERENTIAL YES; POSITIVE MORPHOLOGY YES; Platelet Count 18 K/mm3 (150-450); RBC Distribution Width CV 18.4 % (11.6-14.6); RBC Distribution Width SD 54.7 fl (35.1-43.9); Red Blood Count 2.33 M/mm3 (4.2-5.4); White Blood Count 10.6 K/mm3 (4.4-11.0)
[2024-06-04 10:48] LABS: Lactic Acid 1.2 mmol/L (0.4-1.9)
[2024-06-04 10:51] LABS: ALB/GLOB Ratio 0.8 RATIO (0.9-2.4); AST(SGOT) 92 U/L (15-37); Alanine Aminotransfer ALT/SGPT 116 U/L (13-56); Albumin, Serum 2.6 g/dL (3.2-5.0); Alkaline Phosphatase 143 U/L (45-117); Anion Gap 9 (5-15); BUN 41 mg/dL (7-18); Calcium,Total 7.8 mg/dL (8.5-10.1); Chloride 93 mmol/L (98-107); Creatinine, Serum 1.14 mg/dL (0.55-1.02); EST Glomerular Filtration Rate 50 mL/min (>60); Est Glom Filt Rate - Afr Amer 61 mL/min (>60); Globulin 3.4 g/dL (2.2-4.2); Glucose 140 mg/dL (74-106); Potassium 4.7 mmol/L (3.5-5.1); Sodium Level 126 mmol/L (136-145); Troponin-I HS 771 pg/mL (3.0-54.0)
[2024-06-04 10:59] LABS: BNP,B-Type NATRIURETIC PEPTIDE 638.7 pg/mL (0-100)
[2024-06-04 11:01] LABS: Differential Indicated MANUAL DIFF
[2024-06-04 11:03] LABS: Neutrophil-Segmented 100 % (47-70); Total Cells Counted 100 (MANUAL DIFF)
[2024-06-04 11:04] LABS: Anisocytosis 1+; Hypersegmented Neutrophils 1+; Hypochromasia 1+; Platelet Estimate MKD DEC (ADEQ)
[2024-06-04 11:05] LABS: Absolute Neutrophil Count 10.6 X10^3/uL (2.0-7.7)
[2024-06-04 11:15] LABS: Bacteria 0 SEEN /hpf (None Seen); Mucous, Urine 0 SEEN /hpf (<or=2+); Red Blood Cells-Urine 0 SEEN /hpf (0-5); White Blood Cells 0 SEEN /hpf (0-5)
[2024-06-04 11:16] LABS: Color, Urine Yellow (Yellow); Glucose, Dipstick Normal (Normal); Ketone-Dipstick Negative (Negative); Leukocyte Esterase-Dipstick Negative /ul (Negative); Nitrite-Dipstick Negative (Negative); Occult Blood-Urine 250 /ul (Negative); Protein-Dipstick 30 mg/dl (Negative); Urine Bilirubin Dipstick Negative (Negative); Urine Clarity Sl. Cloudy (Clear); Urine Urobilinogen 1 mg/dl (Normal)
[2024-06-04 11:23] LABS: Fine Granular Cast- Urine 0-5 SEEN /lpf (0-5); Squamous Epithelial Cells - UA 0-5 SEEN /hpf (5-10)
--- NOTE | 2024-06-04 11:28 | NURSING ---
This RN went into to get blood administration consent signed and blood band filled out and pts family had concerns about a blood transfusion with her need for the heart valve replacement. Dr. Ingram notified.
[2024-06-04] MEDS: 0.9% Normal Saline (1000mL) 1,000 ML 100 ML IV (12:34)
[2024-06-04] MEDS: 0.9% Normal Saline (500mL Bag) 500 ML 999 ML IV (12:59)
--- NOTE | 2024-06-04 14:00 | EKG12_ITS ---
Test Reason : Blood Pressure : / mmHG Vent. Rate : 120 BPM Atrial Rate : 120 BPM P-R Int : 154 ms QRS Dur : 094 ms QT Int : 340 ms P-R-T Axes : 012 -01 156 degrees QTc Int : 480 ms Sinus tachycardia Minimal voltage criteria for LVH, may be normal variant ( [place] product ) ST & T wave abnormality, consider inferolateral ischemia Abnormal ECG Confirmed by GHANSHYAM MURILLO, ЕЛЕНА ([id number]), editorial manager THAI LEE ([id number]) on 06/09/2024 6:48:31 AM Referred By: Confirmed By:UMAIR MORRISSEY MD
[2024-06-04 14:16] LABS: Troponin-I HS 686 pg/mL (3.0-54.0)
--- NOTE | 2024-06-04 16:15 | RAD_ITS ---
EXAM: XR LEFT HIP WITH PELVIS WHEN PERFORMED, 2 OR 3 VIEWS CLINICAL INDICATION: pain TECHNIQUE: Two or three views of the left hip with pelvis when performed. COMPARISON: No relevant prior studies available. FINDINGS: BONES/JOINTS: Unremarkable. No displaced fracture. No destructive or sclerotic lesions. Note that overlapping bowel shadows may however obscure fine detail. Sacroiliac joint is unremarkable. No widening of the pubic symphysis. The articular structures are unremarkable. SOFT TISSUES: Unremarkable. No soft tissue swelling or gas. RAD/HIP, UNI W/ Pelvis 2-3 Views IMPRESSION: No evidence of displaced pelvic or hip fracture. Electronically Signed: Axel Haque MD at 16:43 EDT ,
[2024-06-04 16:22] LABS: CPK Total, Creatine Kinase 904 U/L (26-192)
[2024-06-04] MEDS: fentaNYL 100 MCG/2 ML Ampul 50 MCG IV (16:50)
--- NOTE | 2024-06-04 17:33 | ED.RN ---
CALLED [facility] FOR UPDATE: WAITING ON BED @[id number]
--- NOTE | 2024-06-04 20:36 | ED.RN ---
patients family member in [facility] asking when we will admit her to [facility]. patient and family member informed our hospital policy is 6 hours from the time the transfer hospital accepted the patient. family informed the clock started at 5 pm and at 11 we will admit here if she still does not have a bed at
--- NOTE | 2024-06-04 23:40 | HP.PCM.HOS_ITS ---
[facility] - General General Date of Admission: 06/04/24 Date of Service: 06/04/24 Chief Complaint: Generalized weakness HPI Narrative ZORA NIXON, is a 69 F with a past medical history of essential hypertension, hyperlipidemia, history of tobacco abuse (quit 2004), history of invasive ductal breast cancer; metastatic to lymph nodes and bone on chemotherapy (last chemo ~5 days ago), history of CAD and aortic valve regurgitation due to aortic dilatation; s/p CABG x 3 with aortic valve replacement and aneurysm repair plus four subsequent coronary artery stents, history of arrhythmia; s/p PPM/AICD, history of CVA, borderline DM-2, depression with anxiety, history of hysterectomy, history of trigger finger of the Left hand, GERD, osteopenia and osteoarthritis; with cervicalgia who presents to [facility] ER complaining of generalized weakness. Ms. Nixon actually was initially evaluated in the ER at 10:17 AM on June 04, [address] Angelica Ingram with patient having lightheadedness, generalized weakness and not feeling well overall in addition to runny nose over the past few days. Her laboratory testing revealed significant anemia with hemoglobin of 6.9 g/dL present on admission complicated by critical thrombocytopenia with platelet count of 18K present on admission both suspected to be due to adverse drug reaction chemotherapy compounded by elevated troponin of 771 pg/mL consistent with suspected non-STEMI type II due to acute cardiac strain related to acutely increased demand from severe anemia causing elevated BNP of 683.7 pg/mL suspicious for acute CHF along with mild hyponatremia of 126 mmol/L present on admission and elevated total CK of 904 units/L consistent with suspected early rhabdomyolysis in addition to mild hyperbilirubinemia of 1.8 mg/dL with a mildly elevated LFTs. She was then transfused with 2 units of packed red blood cells in addition to maintenance IV fluids as she waited for a bed at a tertiary care center with no bed available at this time resulting in hospitalist service being contacted to admit this patient until such time a bed becomes available. She was then admitted to the PCU for ongoing care for a stay that is expected to extend beyond 2 midnights. [facility] Medical History (Updated 06/05/24 @ 04:[address] Leo Bello, ) Chronic pain Atrial fibrillation ICD (implantable cardioverter-defibrillator) in place Urinary urgency Metastasis to bone Regional lymph node metastasis present Invasive ductal carcinoma of breast Aortic valve regurgitation due to aortic dilation Breast nodule Abnormal findings on imaging test Breast mass, right Skin mole Left knee pain Anxiety and depression Diarrhea Major depressive disorder, recurrent Health care maintenance Flu vaccine need Skin tags, multiple acquired Left hand pain History of cyst of breast History of stroke Heart valve problem GERD (gastroesophageal reflux disease) Hyperlipemia Hypertension Home Medications ?Medication ?Instructions ?Recorded ?Last Taken ?Type aspirin 81 mg chewable tablet 81 mg PO DAILY 11/23/17 06/03/24 History melatonin 10 mg capsule 10 mg PO HS PRN sleep 11/23/17 06/03/24 History calcium carbonate 600 mg PO BID 06/30/18 06/03/24 History amlodipine 10 mg tablet 10 mg PO QDAY #90 tabs 05/11/24 06/03/24 Rx cyclobenzaprine 10 mg tablet 10 mg PO BID PRN muscle spasm #90 05/11/24 06/03/24 Rx tabs lisinopril 40 mg tablet 40 mg PO QDAY #90 tabs 05/11/24 06/03/24 Rx nitroglycerin 0.4 mg sublingual See Rx Instructions .Route 05/11/24 Unknown Rx tablet .COMPLEX #75 tabs pantoprazole 40 mg tablet,delayed 40 mg PO QDAY #90 tabs 05/11/24 06/03/24 Rx release rosuvastatin 20 mg tablet 20 mg PO DAILY #90 tabs 05/11/24 06/03/24 Rx sertraline 100 mg tablet 100 mg PO QDAY #90 tabs 05/11/24 06/03/24 Rx sotalol 120 mg tablet (Betapace) 120 mg PO Q12H #90 tabs 05/11/24 06/03/24 Rx trazodone 100 mg tablet 100 mg PO QHS PRN insomnia #90 tabs 05/11/24 06/03/24 Rx chlorhexidine gluconate 0.12 % 15 ml PO BID 06/04/24 Unknown History mouthwash clopidogrel 75 mg tablet 75 mg PO DAILY 06/04/24 06/03/24 History filgrastim-aafi 300 mcg/0.5 mL 300 mcg subcut DAILY CHEMO 06/04/24 06/03/24 History subcutaneous syringe (Nivestym) lidocaine-prilocaine 2.5 %-2.5 % 1 applic topical X1 06/04/24 06/03/24 History topical cream loratadine 10 mg tablet 10 mg PO DAILY 06/04/24 Unknown History olanzapine 2.5 mg tablet 2.5 mg PO QHS 06/04/24 06/03/24 History Allergy/AdvReac Type Severity Reaction Status Date / Time No Known Allergies Allergy Verified 06/04/24 09:08 Family History Mother CVA (cerebral vascular accident) Breast cancer, Onset Age: 35 Father Heart disease Sister Breast cancer, Onset Age: 50 Heart disease Hypertension Cancer lung Surgical History (Updated 06/05/24 @ 01:[address] Leo Bello DO) History of hysterectomy Cardiac defibrillator in place 4 stents cardiac rythem pacemaker triple bypass, valve replacement, nad aneurysm repair History of tonsillectomy Social History Smoking Status: Former smoker Tobacco: How many years used: 20 how long ago did patient quit smokin alcohol intake: never substance use type: does not use what type of physical activity do you participate in: none ROS ROS Narrative Review of systems: General: Patient admits to fatigue and generalized weakness but denies fever, chills or weight loss. HENT: Patient admits to runny nose but she denies headache, denies sore throat. EYES: Denies changes in vision or discharge from eyes. Resp: Denies cough, denies shortness of breath Cardiac: Denies chest pain, palpitations or heart racing. GI: Denies abdominal pain, denies changes in bowel, denies nausea or vomiting. : Denies changes in urination Extremity: Denies swelling Musculoskeletal: Feels somewhat generally weak and unwell but denies arthralgias or myalgias. Neuro: Patient admits to generalized weakness but denies headache, focal neurologic weakness or paresthesias. Heme: Denies any bleeding or bruising Skin: Denies rashes Psychiatric: No complaints voiced related to uncontrolled depression or anxiety. Endocrine: No polyuria, polydipsia or polyphagia. The rest of the 14 point ROS was negative except for positives in HPI. Vital Signs Vital Signs Vital Signs: 06/04/24 09:09 06/04/24 09:09 06/04/24 09:14 Temperature 98.8 F 98.8 F Temperature Source Oral Oral Pulse Rate 120 H 118 H Respiratory Rate 18 16 Respiratory Effort Normal Respiratory Pattern Normal Blood Pressure 96/52 L 96/52 L Blood Pressure Mean 66 66 Blood Pressure Source Blood Pressure Position Blood Pressure Location Pulse Ox 96 95 Oxygen Delivery Method Room Air Room Air 06/04/24 09:30 06/04/24 11:05 06/04/24 13:00 Temperature Temperature Source Pulse Rate 112 H 115 H Respiratory Rate 18 18 Respiratory Effort Respiratory Pattern Blood Pressure 110/60 93/59 L 79/56 L Blood Pressure Mean 76 70 63 Blood Pressure Source Blood Pressure Position Blood Pressure Location Pulse Ox 96 96 Oxygen Delivery Method Room Air Room Air 06/04/24 13:27 06/04/24 13:42 06/04/24 14:42 Temperature 98.6 F 98.9 F 98.9 F Temperature Source Oral Oral Oral Pulse Rate 101 H 103 H 102 H Respiratory Rate 19 H 18 16 Respiratory Effort Respiratory Pattern Blood Pressure 100/65 102/59 L 94/68 Blood Pressure Mean 76 73 76 Blood Pressure Source Monitor Monitor Monitor Blood Pressure Position Semi-Fowlers Supine Blood Pressure Location Left Arm Left Arm Pulse Ox 96 98 96 Oxygen Delivery Method Room Air Room Air Room Air 06/04/24 15:39 06/04/24 16:34 06/04/24 16:49 Temperature 98.9 F 98.9 F 99.1 F Temperature Source Oral Oral Temporal Pulse Rate 99 104 H 115 H Respiratory Rate 24 H 18 22 H Respiratory Effort Respiratory Pattern Blood Pressure 104/59 L 124/66 H 124/66 H Blood Pressure Mean 74 85 85 Blood Pressure Source Monitor Monitor Monitor Blood Pressure Position Semi-Fowlers Semi-Fowlers Blood Pressure Location Left Arm Left Arm Pulse Ox 97 95 95 Oxygen Delivery Method Room Air Room Air Room Air 06/04/24 17:49 06/04/24 18:47 06/04/24 19:00 Temperature 98.9 F 98.9 F Temperature Source Temporal Temporal Pulse Rate 114 H 120 H 144 H Respiratory Rate 24 H 20 H 28 H Respiratory Effort Respiratory Pattern Blood Pressure 115/64 115/59 L 121/62 H Blood Pressure Mean 81 77 81 Blood Pressure Source Monitor Monitor Blood Pressure Position Semi-Fowlers Semi-Fowlers Blood Pressure Location Left Arm Left Arm Pulse Ox 94 97 97 Oxygen Delivery Method Room Air Room Air 06/04/24 21:00 06/04/24 23:00 Temperature Temperature Source Pulse Rate 133 H 137 H Respiratory Rate 18 Respiratory Effort Respiratory Pattern Blood Pressure 114/63 105/53 L Blood Pressure Mean 80 70 Blood Pressure Source Blood Pressure Position Blood Pressure Location Pulse Ox 98 Oxygen Delivery Method Physical Exam Const alert, oriented x3 and no apparent distress General Appearance: cooperative HEENT normocephalic, head/scalp atraumatic, hearing grossly normal bilaterally and moist oral mucous membranes Eyes PERRL and EOMs intact bilaterally Neck no lymphadenopathy and supple Resp normal respiratory effort, no retractions, no use of accessory muscles and clear to auscultation bilaterally Cardio regular rate and regular rhythm GI normal to inspection, nondistended, normoactive bowel sounds, soft to palpation, non-tender and non-distended Extremity normal to inspection Extremity Narrative: Patient has tenderness to palpation of the proximal Left thigh with limited range of motion but compartments are soft. Skin Skin Narrative: Patient has signs of pallor but no evidence of rash, abscess or jaundice. Neuro oriented x3, CN's II-XII intact bilaterally, moves all extremities and no focal motor deficits Sensorium / Orientation: awake, alert, oriented to person, oriented to place and oriented to time Speech: speech normal Psych affect normal Results Medical Records Data Attestation: I reviewed the patient's medical records Lab / Micro Data Attestation: I reviewed the patient's lab results. 06/05/24 01:06 06/05/24 01:06 Labs: Laboratory Results - last 24 hr 06/04/24 10:14: WBC 10.6, RBC 2.33 L, Hgb 6.9 L, Hct 20.6 L, MCV 88.4, MCH 29.6, MCHC 33.5, RDW Std Deviation 54.7 H, RDW Coeff of Marg[place] 18.4 H, Plt Count 18 L*, MPV 10.7, Neut % (Auto) Not Reportable, Absolute Neuts (auto) 10.6 H, Absolute Lymphs (auto) 0.00 L, Total Counted 100, Neutrophils % (Manual) 100 H, Diff Path Review February, Hypersegmented Neuts 1+ H, Platelet Estimate MKD DEC, Hypochromasia 1+, Anisocytosis 1+, Sodium 126 L, Potassium 4.7, Chloride 93 L, Carbon Dioxide 24.0, Anion Gap 9, BUN 41 H, Creatinine 1.14 H, Est GFR (MDRD) Af Amer 61, Est GFR (MDRD) Non-Af 50 L, BUN/Creatinine Ratio 36.0 H, Glucose 140 H, Lactic Acid 1.2, Calcium 7.8 L, Total Bilirubin 1.80 H, AST 92 H, ALT 116 H, A lkaline Phosphatase 143 H, Troponin I High Sens 771 H*, B-Natriuretic Peptide 638.7 H, Total Protein 6.0 L, Albumin 2.6 L, Globulin 3.4, Albumin/Globulin Ratio 0.8 L 06/04/24 11:11: Urine Color Yellow, Urine Clarity Sl. Cloudy, Urine pH 5.0, Ur Specific [place] 1.020, Urine Protein 30 H, Urine Glucose (UA) Normal, Urine Ketones Negative, Urine Occult Blood 250 H, Urine Nitrite Negative, Urine Bilirubin Negative, Urine Urobilinogen 1 H, Ur Leukocyte Esterase Negative, Urine RBC 0 SEEN, Urine WBC 0 SEEN, Ur Squamous Epith Cells 0-5 SEEN, Urine Bacteria 0 SEEN, Fine Granular Casts 0-5 SEEN, Urine Mucus 0 SEEN 06/04/24 11:40: Blood Type B POSITIVE, Antibody Screen NEGATIVE, Crossmatch See Detail 06/04/24 12:45: Total Creatine Kinase 904 H, Troponin I High Sens 686 H* Micro: Microbiology 06/04/24 15:30 Stool Stool Occult Blood (MARBELLA) - Final Occult Blood Positive 06/04/24 10:33 Mucosa - Nose SARS-CoV-2, Influenza & RSV (PCR) - Final Rhythm Strip Rhythm Strip: Sinus Tach Rate: 120 Ectopy: None Imaging Radiology Impression Chest X-Ray 06/04/24 10:20 IMPRESSION: Stable chest with no acute or active cardiopulmonary disease. Electronically Signed: Toby Plata MD at 10:56 EDT , Hip/Pelvis X-Ray 06/04/24 16:15 IMPRESSION: No evidence of displaced pelvic or hip fracture. Electronically Signed: Axel Haque MD at 16:43 EDT , Assessment & Plan Assessment/Plan (1) Severe anemia: (2) Thrombocytopenia: (3) Adverse drug reaction: QUALIFIERS: Encounter type: initial encounter Qualified Code(s): T50.905A - Adverse effect of unspecified drugs, medicaments and biological substances, initial encounter (4) Non-ST elevation DE (NSTEMI): (5) CAD (coronary artery disease): QUALIFIERS: Associated angina: without angina Coronary Disease- Associated Artery/Lesion type: unspecified vessel or lesion type [place] vs. transplanted heart: [place] heart Qualified Code(s): I25.10 - Atherosclerotic heart disease of [place] coronary artery without angina pectoris (6) History of coronary artery bypass graft x 3: (7) Aortic valve regurgitation due to aortic dilation: (8) Hyponatremia: (9) Rhabdomyolysis: QUALIFIERS: Rhabdomyolysis type: non-traumatic Qualified Code(s): M62.82 - Rhabdomyolysis (10) Invasive ductal carcinoma of breast: QUALIFIERS: Laterality: right Qualified Code(s): C50.911 - Malignant neoplasm of unspecified site of right female breast (11) Hyperbilirubinemia: PLAN: Plan 1. Significant anemia with hemoglobin of 6.9 g/dL present on admission requiring transfusion - Admit to PCU until such time a bed becomes available at her tertiary care center. Recheck CBC to ensure improvement. Check iron studies, B12 and folate to evaluate for other potential reversible causes of anemia with no active signs of bleeding noted. Hemoglobin now improved to 9.3 g/dL after 2U PRBC's. 2. Critical thrombocytopenia with platelet count of 18K present on admission complicating #1 - Recheck of patient's platelet count has dropped to 7K with STAT transfusion of platelets ordered. 3. Adverse drug reaction chemotherapy likely causing marrow suppression leading to #1 & #2 - Hold chemotherapy until patient's anemia and thrombocytopenia have resolved. 4. Elevated troponin of 771 pg/mL consistent with suspected non-STEMI type II due to acute cardiac strain related to acutely increased demand from severe anemia causing elevated BNP of 683.7 pg/mL suspicious for acute CHF arising from #1 - #3 in the setting of a known history of CAD and aortic valve regurgitation due to aortic dilatation; s/p CABG x 3 with aortic valve replacement and aneurysm repair plus four subsequent coronary artery stents - Recheck troponin and BNP after transfusion to see if Lasix and/or repeated transfusion will be needed. Hold antiplatelets until platelet count and hemoglobin are normalized. 5. Mild hyperbilirubinemia of 1.8 mg/dL with a mildly elevated LFTs adding to the pathology of #1 - #4 - Check CT scan of the abdomen and pelvis to assess for possible pathologic changes. Check hepatitis profile. Check CMP daily to ensure continued stability. Minimize any potentially hepatotoxic agents. 6. Mild hyponatremia of 126 mmol/L present on admission adding to the complexity of #1 - #5 - Give normal saline IV fluid and recheck BMP to ensure improvement with serum sodium now increased to 127 mmol/L. 7. Total CK of 904 units/L consistent with suspected early nontraumatic rhabdomyolysis - Volume resuscitate and recheck total CK in a.m. to follow trend. 8. History of invasive ductal breast cancer; metastatic to lymph nodes and bone on chemotherapy (last chemo ~5 days ago) - Noted. Hold chemotherapy until above issues have been rectified. 9. Essential hypertension - Hold scheduled antihypertensives until further notice. 10. Hyperlipidemia - Resume statin and check Lipid Profile in light of #4. 11. History of tobacco abuse (quit 2004) - Noted. 12. History of arrhythmia; s/p PPM/AICD - Noted. 13. History of CVA - Noted. 14. Borderline DM-2 - Check HgbA1c to confirm status. 15. Depression with anxiety - Continue home regimen as previous. 16. History of hysterectomy - Noted. 17. History of trigger finger of the Left hand - Noted. 18. GERD - Give Protonix 40 mg IV BID in light of #1. Hemoccult stools. 19. Osteopenia - Stable. 20. Osteoarthritis; with cervicalgia - Give Tylenol prn. 21. DVT prophylaxis - Due to her critical thrombocytopenia outlined in #2 she will not be treated with heparin, heparinoids or even SCD's. Total time: Approximately 75 minutes. Charges/Coding Visit Charges Inpatient E&M: 22622 Init Hosp L3
[2024-06-05] VITALS (16 sets, daily range): BP systolic 83–114; BP diastolic 44–87; PULSE 72–119; RESP 16–26; TEMP 36.1–36.8; O2SAT 94–99; BMI 28.8; BMI 29.0; BMI 29.5
[2024-06-05 01:28] LABS: Hematocrit 27.2 % (37-47); Hemoglobin 9.3 g/dL (12.0-15.0); Mean Corp Hgb Conc 34.2 g/dL (32-36); Mean Corpuscular Hgb 28.4 pg (27.0-32.0); Mean Corpuscular Volume 83.2 fL (81-99); POSITIVE COUNT YES; POSITIVE DIFFERENTIAL YES; POSITIVE MORPHOLOGY YES; RBC Distribution Width SD 42.9 fl (35.1-43.9); Red Blood Count 3.27 M/mm3 (4.2-5.4); White Blood Count 4.8 K/mm3 (4.4-11.0)
[2024-06-05 01:38] LABS: Differential Indicated MANUAL DIFF
[2024-06-05 01:39] LABS: Platelet Count 7 K/mm3 (150-450)
[2024-06-05 01:44] LABS: Phosphorus 2.7 mg/dL (2.5-4.9)
[2024-06-05 01:45] LABS: ALB/GLOB Ratio 0.8 RATIO (0.9-2.4); AST(SGOT) 59 U/L (15-37); Alanine Aminotransfer ALT/SGPT 75 U/L (13-56); Albumin, Serum 2.4 g/dL (3.2-5.0); Alkaline Phosphatase 127 U/L (45-117); Anion Gap 8 (5-15); BUN 31 mg/dL (7-18); BUN/Creat Ratio 39.6 RATIO (10-20); Calcium,Total 7.7 mg/dL (8.5-10.1); Chloride 98 mmol/L (98-107); Creatinine, Serum 0.78 mg/dL (0.55-1.02); EST Glomerular Filtration Rate 77 mL/min (>60); Est Glom Filt Rate - Afr Amer 93 mL/min (>60); Globulin 3.1 g/dL (2.2-4.2); Glucose 131 mg/dL (74-106); Magnesium 1.9 mg/dL (1.6-2.6); Potassium 4.4 mmol/L (3.5-5.1); Protein, Total 5.5 g/dL (6.4-8.2); Sodium Level 127 mmol/L (136-145)
[2024-06-05 02:09] LABS: CPK Total, Creatine Kinase 1339 U/L (26-192)
[2024-06-05 02:17] LABS: BNP,B-Type NATRIURETIC PEPTIDE 1045.4 pg/mL (0-100)
[2024-06-05 02:19] LABS: Lymphocyte 4 % (19-41); Monocyte 1 % (0-10); Neutrophil-Segmented 95 % (47-70); Total Cells Counted 100 (MANUAL DIFF)
[2024-06-05 02:20] LABS: Platelet Estimate MKD DEC (ADEQ)
[2024-06-05 02:21] LABS: Anisocytosis 1+; Ovalocyte 1+
[2024-06-05 02:22] LABS: Absolute Lymphocyte Count 0.19 X10^3/uL (0.83-4.51); Absolute Neutrophil Count 4.5 X10^3/uL (2.0-7.7)
[2024-06-05] MEDS: 0.9% Normal Saline (1000mL) 1,000 ML 100 ML IV (02:56)
[2024-06-05] MEDS: Pantoprazole Sodium 40 MG in 0.9% Normal Saline (100mL MB+) 100 ML 330 MG IV ×3 (02:56→22:02)
[2024-06-05 03:02] LABS: Ferritin 1858 ng/mL (8-252); Iron 134 ug/dL (50-170); Iron Binding Capacity,Total 303 ug/dL (250-450); PERCENT IRON SATURATION 44.2 % (15.0-55.0)
[2024-06-05] MEDS: 0.9% Saline Lock 10 ML Syringe IV ×2 (03:28→15:57)
[2024-06-05] MEDS: Morphine 2 MG/ML Syringe IV (03:28)
--- NOTE | 2024-06-05 04:54 | CT_ITS ---
ACR Level 3 findings have been noted. An addendum which confirms receipt of the report will follow. EXAM: CT ABDOMEN AND PELVIS WITHOUT AND WITH INTRAVENOUS CONTRAST CLINICAL INDICATION: Hyperbilirubinemia and LFT''s increased. TECHNIQUE: Helically acquired images were obtained of the abdomen and pelvis without and with intravenous contrast. This CT exam was performed using one or more of the following dose reduction techniques: automated exposure control, adjustment of the mA and/or kV according to patient size, and/or use of iterative reconstruction technique. CONTRAST: IV 100mL Isovue-370 RADIATION DOSE: CTDIvol = 13.27 mGy, DLP = 2016.94 mGy-cm COMPARISON: PET/CT 01/11/2024 FINDINGS: LOWER THORAX: Unremarkable. Lung bases are clear. No cardiomegaly. No significant pericardial effusion. ABDOMEN: LIVER: Unremarkable. Homogeneous. No focal mass. GALLBLADDER AND BILE DUCTS: Small stone in the gallbladder. No gallbladder distention or wall edema. No intra- or extrahepatic biliary ductal dilation. PANCREAS: Unremarkable. No focal cystic or solid mass. SPLEEN: Unremarkable. Normal size without focal cystic or solid mass. ADRENALS: Unremarkable. No nodules. KIDNEYS AND URETERS: Unremarkable. Normal renal size and position. No hydronephrosis. STOMACH AND BOWEL: Unremarkable. No stomach or bowel distention. No focal inflammatory change. PELVIS: APPENDIX: The appendix is normal. BLADDER: Unremarkable. REPRODUCTIVE: Unremarkable as visualized. No mass. ABDOMEN and PELVIS: INTRAPERITONEAL SPACE: Unremarkable. No ascites or other fluid collection. No free air. BONES/JOINTS: Degenerative changes of the spine. No suspicious lytic or blastic abnormality. SOFT TISSUES: There is mild enlargement and increased density of the left psoas muscle with mild adjacent stranding in the retroperitoneum. It measures up to 4.3 x 3.7 cm in cross-section compared with 3.5 x 2.4 cm on the normal, right side. No discrete abdominal or pelvic wall hernia. VASCULATURE: Moderate atherosclerotic changes of the abdominal aorta but no dissection or dilation. LYMPH NODES: Unremarkable. No enlarged lymph nodes. CT/CT Abd/Pelvis W/WO Contrast IMPRESSION: 1. There is mild enlargement and increased density of the left psoas muscle with mild adjacent stranding in the retroperitoneum. This likely indicates a mild intramuscular hematoma. Correlate for coagulopathy or other predisposing factors. 2. No other acute abnormalities in the abdomen/pelvis. 3. Small stone in the gallbladder. Electronically Signed: Donald Rodriges MD at 6:40 EDT ,
--- NOTE | 2024-06-05 07:08 | PN.HOSP_ITS ---
Reason for Visit Reason for Visit: Diagnoses Malignant neoplasm of unspecified site of right female breast (06/05/24) Anemia, unspecified (06/05/24) Thrombocytopenia, unspecified (06/05/24) Other disorders of bilirubin metabolism (06/05/24) Hypo-osmolality and hyponatremia (06/05/24) Non-ST elevation (NSTEMI) myocardial infarction (06/05/24) Atherosclerotic heart disease of [place] coronary artery without angina pectoris (06/05/24) Nonrheumatic aortic (valve) insufficiency (06/05/24) Aortic ectasia, unspecified site (06/05/24) Rhabdomyolysis (06/05/24) Adverse effect of unspecified drugs, medicaments and biological substances, initial encounter (06/05/24) Presence of aortocoronary bypass graft (06/05/24) Subjective Subjective Patient since presentation with no acute events, still awaiting platelet transfusion, status post PRBC transfusion, hemoglobin has been stable fortunately. Patient notes lumbar discomfort as well as left lower extremity lateral thigh discomfort primarily with palpation attempts. Patient denies any lightheadedness or dizziness. Discussed plan of care which included awaiting transfer but until then involvement of surgery as well as GI with discussed positive guaiac with possible GI bleed component in addition to developing hematoma as etiology for acute on chronic anemia to which patient is amenable. Patient denies fevers, chills, nausea, emesis, abdominal pain, chest pain or dyspnea. Objective Data Objective Data Vital Signs: Vital Signs Temp Pulse Resp BP Pulse Ox O2 Del Method 98.3 F 111 H 18 114/70 97 Room Air 06/05/24 03:30 06/05/24 03:30 06/05/24 03:30 06/05/24 03:30 06/05/24 03:30 06/05/24 03:46 Oxygen Delivery Method Room Air Weight: 147 lb 11.355 oz Body Mass Index (BMI) 29.0 Intake & Output: Intake and Output for Last 24 Hours 06/03/24 06/04/24 06/05/24 23:59 23:59 23:59 Intake Total 2502 / 2502 110 / 110 Balance 2502 / 2502 110 / 110 Lab / Micro Data 06/05/24 13:30 06/05/24 01:06 Labs: Laboratory Results - last 24 hr 06/04/24 10:14: WBC 10.6, RBC 2.33 L, Hgb 6.9 L, Hct 20.6 L, MCV 88.4, MCH 29.6, MCHC 33.5, RDW Std Deviation 54.7 H, RDW Coeff of Margareth 18.4 H, Plt Count 18 L*, MPV 10.7, Neut % (Auto) Not Reportable, Absolute Neuts (auto) 10.6 H, Absolute Lymphs (auto) 0.00 L, Total Counted 100, Neutrophils % (Manual) 100 H, Diff Path Review February, Hypersegmented Neuts 1+ H, Platelet Estimate MKD DEC, Hypochromasia 1+, Anisocytosis 1+, Sodium 126 L, Potassium 4.7, Chloride 93 L, Carbon Dioxide 24.0, Anion Gap 9, BUN 41 H, Creatinine 1.14 H, Est GFR (MDRD) Af Amer 61, Est GFR (MDRD) Non-Af 50 L, BUN/Creatinine Ratio 36.0 H, Glucose 140 H, Lactic Acid 1.2, Calcium 7.8 L, Total Bilirubin 1.80 H, AST 92 H, ALT 116 H, A lkaline Phosphatase 143 H, Troponin I High Sens 771 H*, B-Natriuretic Peptide 638.7 H, Total Protein 6.0 L, Albumin 2.6 L, Globulin 3.4, Albumin/Globulin Ratio 0.8 L 06/04/24 11:11: Urine Color Yellow, Urine Clarity Sl. Cloudy, Urine pH 5.0, Ur Specific Gra[place] 1.020, Urine Protein 30 H, Urine Glucose (UA) Normal, Urine Ketones Negative, Urine Occult Blood 250 H, Urine Nitrite Negative, Urine Bilirubin Negative, Urine Urobilinogen 1 H, Ur Leukocyte Esterase Negative, Urine RBC 0 SEEN, Urine WBC 0 SEEN, Ur Squamous Epith Cells 0-5 SEEN, Urine Bacteria 0 SEEN, Fine Granular Casts 0-5 SEEN, Urine Mucus 0 SEEN 06/04/24 11:40: Blood Type B POSITIVE, Antibody Screen NEGATIVE, Crossmatch See Detail 06/04/24 12:45: Total Creatine Kinase 904 H, Troponin I High Sens 686 H* 06/05/24 01:06: WBC 4.8, RBC 3.27 L, Hgb 9.3 L, Hct 27.2 L, MCV 83.2 D, MCH 28.4, MCHC 34.2, RDW Std Deviation 42.9, RDW Coeff of Margareth 16.0 H, Plt Count 7 L* , Neut % (Auto) Not Reportable, Absolute Neuts (auto) 4.5, Absolute Lymphs (auto) 0.19 L, Total Counted 100, Neutrophils % (Manual) 95 H, Lymphocytes % (Manual) 4 L, Monocytes % (Manual) 1, Diff Path Review February, Platelet Estimate MKD DEC, Anisocytosis 1+, Ovalocytes 1+, D-Dimer Quant (PE/DVT) 2.50 H* , Sodium 127 L, Potassium 4.4, Chloride 98, Carbon Dioxide 21.0, Anion Gap 8, B UN 31 H, Creatinine 0.78, Est GFR (MDRD) Af Amer 93, Est GFR (MDRD) Non-Af 77, B UN/Creatinine Ratio 39.6 H, Glucose 131 H, Calcium 7.7 L, Phosphorus 2.7, Magnesium 1.9, Iron 134, TIBC 303, Iron Saturation 44.2, Ferritin 1858 H, Total Bilirubin 3.60 H, AST 59 H, ALT 75 H, Alkaline Phosphatase 127 H, Total Creatine Kinase 1339 H, B-Natriuretic Peptide 1045.4 H, Total Protein 5.5 L, Albumin 2.4 L, Globulin 3.1, Albumin/Globulin Ratio 0.8 L, Folate 5.50 Micro: Microbiology 06/04/24 15:30 Stool Stool Occult Blood (MARBELLA) - Final Occult Blood Positive 06/04/24 10:33 Mucosa - Nose SARS-CoV-2, Influenza & RSV (PCR) - Final Radiography Diagnostic Testing: Radiology Impression Chest X-Ray 06/04/24 10:20 IMPRESSION: Stable chest with no acute or active cardiopulmonary disease. Electronically Signed: Toby Plata MD at 10:56 EDT , Hip/Pelvis X-Ray 06/04/24 16:15 IMPRESSION: No evidence of displaced pelvic or hip fracture. Electronically Signed: Axel Haque MD at 16:43 EDT , Abdomen/Pelvis CT 06/05/24 04:54 IMPRESSION: 1. There is mild enlargement and increased density of the left psoas muscle with mild adjacent stranding in the retroperitoneum. This likely indicates a mild intramuscular hematoma. Correlate for coagulopathy or other predisposing factors. 2. No other acute abnormalities in the abdomen/pelvis. 3. Small stone in the gallbladder. Electronically Signed: Donald Rodriges MD at 6:40 EDT Reading Location ID and State: [facility] / ID Tel , Service support , ADDENDUM: 06/05/24 0653 IMPRESSION: 1. There is mild enlargement and increased density of the left psoas muscle with mild adjacent stranding in the retroperitoneum. This likely indicates a mild intramuscular hematoma. Correlate for coagulopathy or other predisposing factors. 2. No other acute abnormalities in the abdomen/pelvis. 3. Small stone in the gallbladder. N.B. : Renay Park RN, confirmed on 06/05/2024 06:46:59 (ET) that the healthcare facility has received the radiology report. Electronically Signed: Donald Rodriges MD at 6:40 EDT Reading Location ID and State: [facility] / ID Tel , Service support , Rhythm Strip Rhythm Strip: Sinus Tach Rate: 120 Ectopy: None Physical Exam Narrative Physical Examination: General: Awake, alert, oriented x 3 and cooperative, seated upright in the PCU bed, fatigued, notes discomfort primarily to the left lateral thigh at this time. Skin: Normal color, normal turgor, no icterus, no cyanosis except occasional staged ecchymoses, abrasion. HEENT: AT/NC, EOMI, PERRLA, mildly dry MM. Lungs: Mildly diminished, greater bases, proper effort, no rales, ronchi or wheezing. Heart: Regular rate and rhythm; no gallop, rub audible. Abdomen: Soft, obese, NTTP, ND, hyperactive BS. Extremities: No cyanosis, no clubbing, mild peripheral edema, discomfort to palpation left lateral thigh but no obvious induration, discoloration, soft to touch. Neurological: Patient awake, alert, oriented as noted, cognitive function intact; pupils equally reactive to light and accommodation, cranial nerves gross normal, moving all 4 extremities although limited given discomfort to left lower extremity but primarily with touch, strength moderately to severely globally decreased. Psychiatric: Affect appears fatigued, no acute evidence of depressive or anxiety feelings. Assessment & Plan Assessment/Plan (1) Nontraumatic psoas hematoma: PLAN: Plan The patient is a 69 yo F w/ PMHx: CKD stage III unclear subtype, HTN, HLD, Former tobacco use, Invasive ductal breast cancer metastatic to lymph nodes and bone on chemotherapy, CAD s/p CABG x 3 and PCI x 4, Valvular Heart Disease s/p AV replacement and also aneurysm repair, s/p PPM/AICD, Hx CVA, Borderline Diabetes mellitus type II, Anxiety and Depression, GERD who presents to the [facility] ED on 06/04/24 with history of generalized weakness and fatigue. #1. Acute on chronic normocytic anemia, likely multifactorial in addition to acute nontraumatic retroperitoneal bleed with intramuscular hematoma noted on CT imaging complicated by underlying severe acute thrombocytopenia possibly secondary to underlying chemotherapy and possible concurrent Acute GI bleed: Admission hemoglobin 6.9, prior to this 04/29/2024 hemoglobin 10.8 with baseline previous primarily 12-, MCV normocytic range, admission platelet 18, decrease now to 7 with prior to this 04/29/2024 329 possibly secondary to underlying chemotherapy, guaiac returned positive, admitted to PCU, maintained on monitor, administered 2 unit PRBC with improvement of hemoglobin to 9.3, CT abdomen and pelvis with mild enlargement increased density left psoas muscle with mild adjacent stranding in the retroperitoneum likely secondary to a mild intramuscular hematoma, small stone in the gallbladder and unfortunately inability to obtain platelets now complicated by noted retroperitoneal bleed and potentially GI bleed with positive guiac as noted, maintain on clears with IV Protonix with cycling of H&H, GI consulted. Patient awaiting transfer to tertiary facility, in the interim to be cautious will request surgery evaluation and consider ICU transfer if any clinical deterioration #2. Acute NSTEMI in the setting of CAD s/p CABG and PCI, likely secondary to demand secondary to acute presentation as noted with severe anemia: EKG in ED w/ no acute evidence of ischemia, CXR w/ no overt overload. Trop elevated, 771 upon presentation with BNP mildly elevated 683.7. Continue closely monitor given PRBC administration, judicious IV Lasix usage especially given bleed and concern for potential deterioration, given severe thrombocytopenia holding all antiplatelet therapy, continued on sotalol, lisinopril as well as statin therapy held. Magnesium 1.9. Will continue to cycle cardiac enzymes, echocardiogram requested although as noted awaiting tertiary facility transition. Cardiology had discussed case with ED upon her presentation. Will consider re-consultation if necessary, currently enzymes trending down and unable to be anticoagulated/take antiplt. #3. Acute Hyperbilirubinemia, transaminitis: Admission CMP with total bilirubin 1.80, AST/ALT 92/116, repeat 06/05/2024 CMP with total bilirubin 3.60, AST/ALT 59/75, alk phos 127, suspect likely involves with possibly #1, CT abdomen pelvis with no overt finding in the liver, GI consulted and will evaluation. #4. Acute Rhabdomyolysis: Admission TCK 904, increased to 1339, will continue judicious hydration given underlying history be cautious continue to trend TCK, renal function, liver function and monitor urine output. #5. Hyponatremia, possible hypovolemic component but unclear: Admission Na 126, continue judicious hydration, will continue to trend CMP and if not improving or worsens will investigate further, continue evaluation and treatment as noted above. #6. Chronic Kidney Disease Stage III, unclear subtype per GFR trending noted previously: Admission BUN/Cr 41/1.14, baseline renal function 0.7-1.1 repeat BMP in AM. #7. Invasive ductal breast cancer with metastasis to lymph nodes and bone: On chemotherapy, reportedly last chemotherapy 5 days prior to presentation which unfortunately may be related with above as noted #1, admission magnesium and phosphorus levels normal. #8. Valvular heart disease with concurrent history aneurysm: Status post bioprosthetic AVR and aneurysmal repair, 01/20/2018 echocardiogram with EF 70%, stage I diastolic dysfunction, trivial MVI, mild TVI, RVSP 28 mmHg, normal- appearing bioprosthetic AVR with normal gradients. BNP elevated, pending repeat echocardiogram given NSTEMI as noted above. Judicious hydration to be cautious in the interim. #9. Anxiety and depression: Given hyperbilirubinemia/transaminitis will hold zyprexa, sertraline and trazodone. #10. History CVA: Holding antiplts, cautiously continue HTN regimen as BP allows, holding statin. #11. Cardiac arrhythmia, PAF suspected: Status post PPM/AICD, continue sotalol. #12. Hyperlipidemia: Holding statin therapy given hyperbilirubinemia and transaminitis, resume once approved. #13. Hypertension: Given presentation and concerns for low normal pressure, acute on chronic anemia will hold oral regimen, add back as needed. #14. Former tobacco use: Encourage continued tobacco cessation. #15. DVT prophylaxis: SCDs. #16. CODE status: Patient AZEEM is her Sister Zuly and living will is currently in place. Discussed CODE status at length including difference between FULL code, DNR-CCA and DNR-CC status. Following discussions about the differences in these status, requested Full Code status. Advanced Care Planning Face to Face Time: 16 minutes. Charges/Coding Visit Charges Inpatient E&M: 42432 Subs Hosp L3 Procedures Hospitalists Procedures: 58672 Advncd Care Plan 30 Min
[2024-06-05 08:43] LABS: Vitamin B12 1430 pg/mL (211-911)
--- NOTE | 2024-06-05 09:33 | EX.PCM.CON.S ---
Assessment & Plan Assessment/Plan (1) Nontraumatic psoas hematoma: PLAN: I am seeing this patient in conjunction with Dr. Wolf. She will independently evaluate this patient. Patient is a 69 y/o F who was diagnosed with metastatic breast cancer in November and has been undergoing conjunctive chemotherapy and radiation at in [place]. Patient had progressively become weak over the weekend and had an increase in lower extremity pain. Patient has multiple other medical issues that are ongoing at this time. Patient came in anemic and has already received 2 units of PRBC. Her platelets are significantly decreased from the chemotherapy. Patient is currently awaiting a platelet transfusion at this time. There is concern for an upper GI bleed. Her troponin levels area elevated. Her BNP is 1045.4. She is currently awaiting transfer to [facility], however no beds are available. General surgery was consulted after a left psoas hematoma was identified on CT scan of the ab/pel. I have explained the finding to the patient, who voices understanding, however would like me to reach out to her sister, Zuly. I have spoke with Zuly and explained the current finding of the psoas hematoma. I have explained to the patient that conservative measures will be taken at this time. Patient is currently asymptomatic. No surgical intention is being recommended at this facility as she is too high risk secondary to all her other comorbidities. Additional imaging may be indicated during her hospitalization to monitor the progress/expansion of the hematoma. Patient seems anxious and overwhelmed upon examination. Patient has had the opportunity to ask and have questions answered. Thank you for allowing us to participate in this patient's care. HPI Consult Data Date of Consult: 06/05/24 HPI Narrative Reason for Consultation: Left lateral psoas intramuscular hematoma HPI Narrative: ZORA MATUTE, is a 69 F who presents with generalized weakness. Patient is a poor historian. She notes she was recently diagnosed with metastatic breast cancer in November of this year. She has been receiving chemotherapy treatment at [facility]. She notes her most recent treatment was last Wednesday. Patient states she is on a daily 81 mg. She relates a significant cardiac history. She is scheduled to have a valve replacement in July at [facility]. She notes along with the weakness that she is having increasing pain in the left lateral and right posterior thigh lower extremities. She is unsure why this may be occurring. She denies any side effects from her chemotherapy previously. She states her leg pain started 5 days ago. Patient states she is scheduled to undergo chemotherapy and radiation prior to proceeding with breast surgery. She denies any abdominal pain. She denies any change in bowel habits, nausea, vomiting. She notes lack of appetite. [facility] Medical History (Updated 06/05/24 @ 14:05 by Malgorzata HURD, PAAdairC) Chronic pain Atrial fibrillation ICD (implantable cardioverter-defibrillator) in place Urinary urgency Metastasis to bone Regional lymph node metastasis present Invasive ductal carcinoma of breast Aortic valve regurgitation due to aortic dilation Breast nodule Abnormal findings on imaging test Breast mass, right Skin mole Left knee pain Anxiety and depression Diarrhea Major depressive disorder, recurrent Health care maintenance Flu vaccine need Skin tags, multiple acquired Left hand pain History of cyst of breast History of stroke Heart valve problem GERD (gastroesophageal reflux disease) Hyperlipemia Hypertension Home Medications ?Medication ?Instructions ?Recorded ?Last Taken ?Type aspirin 81 mg chewable tablet 81 mg PO DAILY 11/23/17 06/03/24 History melatonin 10 mg capsule 10 mg PO HS PRN sleep 11/23/17 06/03/24 History calcium carbonate 600 mg PO BID 06/30/18 06/03/24 History amlodipine 10 mg tablet 10 mg PO QDAY #90 tabs 05/11/24 06/03/24 Rx cyclobenzaprine 10 mg tablet 10 mg PO BID PRN muscle spasm #90 05/11/24 06/03/24 Rx tabs lisinopril 40 mg tablet 40 mg PO QDAY #90 tabs 05/11/24 06/03/24 Rx nitroglycerin 0.4 mg sublingual See Rx Instructions .Route 05/11/24 Unknown Rx tablet .COMPLEX #75 tabs pantoprazole 40 mg tablet,delayed 40 mg PO QDAY #90 tabs 05/11/24 06/03/24 Rx release rosuvastatin 20 mg tablet 20 mg PO DAILY #90 tabs 05/11/24 06/03/24 Rx sertraline 100 mg tablet 100 mg PO QDAY #90 tabs 05/11/24 06/03/24 Rx sotalol 120 mg tablet (Betapace) 120 mg PO Q12H #90 tabs 05/11/24 06/03/24 Rx trazodone 100 mg tablet 100 mg PO QHS PRN insomnia #90 tabs 05/11/24 06/03/24 Rx chlorhexidine gluconate 0.12 % 15 ml PO BID 06/04/24 Unknown History mouthwash clopidogrel 75 mg tablet 75 mg PO DAILY 06/04/24 06/03/24 History filgrastim-aafi 300 mcg/0.5 mL 300 mcg subcut DAILY CHEMO 06/04/24 06/03/24 History subcutaneous syringe (Nivestym) lidocaine-prilocaine 2.5 %-2.5 % 1 applic topical X1 06/04/24 06/03/24 History topical cream loratadine 10 mg tablet 10 mg PO DAILY 06/04/24 Unknown History olanzapine 2.5 mg tablet 2.5 mg PO QHS 06/04/24 06/03/24 History Allergy/AdvReac Type Severity Reaction Status Date / Time No Known Allergies Allergy Verified 06/04/24 09:08 Family History Mother CVA (cerebral vascular accident) Breast cancer, Onset Age: 35 Father Heart disease Sister Breast cancer, Onset Age: 50 Heart disease Hypertension Cancer lung Surgical History (Updated 06/05/24 @ 01:[address] Leo Bello DO) History of hysterectomy Cardiac defibrillator in place 4 stents cardiac rythem pacemaker triple bypass, valve replacement, nad aneurysm repair History of tonsillectomy Social History Smoking Status: Former smoker Tobacco: How many years used: 20 how long ago did patient quit smokin alcohol intake: never substance use type: does not use what type of physical activity do you participate in: none ROS Constitutional Constitutional: Reports fatigue, malaise and poor appetite Eyes Eyes: Reports systems reviewed and no addt'l complaints, except as documented ENT HEENT: Reports systems reviewed and no addt'l complaints, except as documented Cardiovascular Cardiovascular: Reports systems reviewed and no addt'l complaints, except as documented Respiratory/Chest Respiratory/Chest: Reports systems reviewed and no addt'l complaints, except as documented Gastrointestinal Gastrointestinal: Reports systems reviewed and no addt'l complaints, except as documented Genitourinary Genitourinary: Reports systems reviewed and no addt'l complaints, except as documented Musculoskeletal Musculoskeletal: Reports systems reviewed and no addt'l complaints, except as documented Integumentary Integumentary: Reports systems reviewed and no addt'l complaints, except as documented Neurologic Neurologic: Reports systems reviewed and no addt'l complaints, except as documented Psychiatric Psychiatric: Reports systems reviewed and no addt'l complaints, except as documented Endocrine Endocrinology: Reports systems reviewed and no addt'l complaints, except as documented Hematologic/Lymphatic Hematologic/Lymphatic: Reports systems reviewed and no addt'l complaints, except as documented Allergic/Immunologic Allergic/Immunologic: Reports systems reviewed and no addt'l complaints, except as documented Physical Exam Const alert, oriented x3 and no apparent distress HEENT normocephalic and head/scalp atraumatic Eyes PERRL Neck full ROM Lymph Lymphatic: no lymphadenopathy noted Resp normal respiratory effort and clear to auscultation bilaterally Cardio regular rhythm Rate: tachycardic GI GI Narrative: Abdomen- soft, distended, Non-tender. Hypoactive bowel sounds. no CVA tenderness Back/Spine no CVA tenderness Extremity normal to inspection Skin no rashes or lesions noted Neuro no focal motor deficits and no sensory deficits noted Psych Mood & Affect: anxious Lab / Micro Data 06/05/24 13:30 06/05/24 01:06 Labs: Laboratory Results - last 24 hr 06/04/24 10:14: WBC 10.6, RBC 2.33 L, Hgb 6.9 L, Hct 20.6 L, MCV 88.4, MCH 29.6, MCHC 33.5, RDW Std Deviation 54.7 H, RDW Coeff of Margareth 18.4 H, Plt Count 18 L*, MPV 10.7, Neut % (Auto) Not Reportable, Absolute Neuts (auto) 10.6 H, Absolute Lymphs (auto) 0.00 L, Total Counted 100, Neutrophils % (Manual) 100 H, Diff Path Review May , Hypersegmented Neuts 1+ H, Platelet Estimate MKD DEC, Hypochromasia 1+, Anisocytosis 1+, Sodium 126 L, Potassium 4.7, Chloride 93 L, Carbon Dioxide 24.0, Anion Gap 9, BUN 41 H, Creatinine 1.14 H, Est GFR (MDRD) Af Amer 61, Est GFR (MDRD) Non-Af 50 L, BUN/Creatinine Ratio 36.0 H, Glucose 140 H, Lactic Acid 1.2, Calcium 7.8 L, Total Bilirubin 1.80 H, AST 92 H, ALT 116 H, Alkaline Phosphatase 143 H, Troponin I High Sens 771 H*, B-Natriuretic Peptide 638.7 H, Total Protein 6.0 L, Albumin 2.6 L, Globulin 3.4, Albumin/Globulin Ratio 0.8 L 06/04/24 11:11: Urine Color Yellow, Urine Clarity Sl. Cloudy, Urine pH 5.0, Ur Specific [place] 1.020, Urine Protein 30 H, Urine Glucose (UA) Normal, Urine Ketones Negative, Urine Occult Blood 250 H, Urine Nitrite Negative, Urine Bilirubin Negative, Urine Urobilinogen 1 H, Ur Leukocyte Esterase Negative, Urine RBC 0 SEEN, Urine WBC 0 SEEN, Ur Squamous Epith Cells 0-5 SEEN, Urine Bacteria 0 SEEN, Fine Granular Casts 0-5 SEEN, Urine Mucus 0 SEEN 06/04/24 11:40: Blood Type B POSITIVE, Antibody Screen NEGATIVE, Crossmatch See Detail 06/04/24 12:45: Total Creatine Kinase 904 H, Troponin I High Sens 686 H* 06/05/24 01:06: WBC 4.8, RBC 3.27 L, Hgb 9.3 L, Hct 27.2 L, MCV 83.2 D, MCH 28.4, MCHC 34.2, RDW Std Deviation 42.9, RDW Coeff of Margareth 16.0 H, Plt Count 7 L*, Neut % (Auto) Not Reportable, Absolute Neuts (auto) 4.5, Absolute Lymphs (auto) 0.19 L, Total Counted 100, Neutrophils % (Manual) 95 H, Lymphocytes % (Manual) 4 L, Monocytes % (Manual) 1, Diff Path Review February alex, Platelet Estimate MKD DEC, Anisocytosis 1+, Ovalocytes 1+, D-Dimer Quant (PE/DVT) 2.50 H*, Sodium 127 L, Potassium 4.4, Chloride 98, Carbon Dioxide 21.0, Anion Gap 8, BUN 31 H, Creatinine 0.78, Est GFR (MDRD) Af Amer 93, Est GFR (MDRD) Non-Af 77, BUN/Creatinine Ratio 39.6 H, Glucose 131 H, Calcium 7.7 L, Phosphorus 2.7, Magnesium 1.9, Iron 134, TIBC 303, Iron Saturation 44.2, Ferritin 1858 H, Total Bilirubin 3.60 H, AST 59 H, ALT 75 H, Alkaline Phosphatase 127 H, Total Creatine Kinase 1339 H, B-Natriuretic Peptide 1045.4 H, Total Protein 5.5 L, Albumin 2.4 L, Globulin 3.1, Albumin/Globulin Ratio 0.8 L, Vitamin B12 1430 H, Folate 5.50 Micro: Microbiology 06/04/24 15:30 Stool Stool Occult Blood (MARBELLA) - Final Occult Blood Positive 06/04/24 10:33 Mucosa - Nose SARS-CoV-2, Influenza & RSV (PCR) - Final Rhythm Strip Rhythm Strip: Sinus Tach Rate: 120 Ectopy: None Imaging Radiology Impression Chest X-Ray 06/04/24 10:20 IMPRESSION: Stable chest with no acute or active cardiopulmonary disease. Electronically Signed: Toby Plata MD at 10:56 EDT , Hip/Pelvis X-Ray 06/04/24 16:15 IMPRESSION: No evidence of displaced pelvic or hip fracture. Electronically Signed: Axel Haque MD at 16:43 EDT , Abdomen/Pelvis CT 06/05/24 04:54 IMPRESSION: 1. There is mild enlargement and increased density of the left psoas muscle with mild adjacent stranding in the retroperitoneum. This likely indicates a mild intramuscular hematoma. Correlate for coagulopathy or other predisposing factors. 2. No other acute abnormalities in the abdomen/pelvis. 3. Small stone in the gallbladder. Electronically Signed: Donald Rodriges MD at 6:40 EDT , ADDENDUM: 06/05/24 0653 IMPRESSION: 1. There is mild enlargement and increased density of the left psoas muscle with mild adjacent stranding in the retroperitoneum. This likely indicates a mild intramuscular hematoma. Correlate for coagulopathy or other predisposing factors. 2. No other acute abnormalities in the abdomen/pelvis. 3. Small stone in the gallbladder. N.B. : Renay Park RN, confirmed on 06/05/2024 06:46:59 (ET) that the healthcare facility has received the radiology report. Electronically Signed: Donald Rodriges MD at 6:40 EDT , Charges/Coding Visit Charges Office Visits / Consults: [id number] IP Consult L3
[2024-06-05 10:28] LABS: Hematocrit 25.2 % (37-47); Hemoglobin 8.7 g/dL (12.0-15.0); POSITIVE COUNT YES
[2024-06-05 10:33] LABS: Pathologist Review Reviewed
[2024-06-05] MEDS: Sotalol Hydrochloride 80 MG Tablet 120 MG PO ×2 (10:42→21:58)
[2024-06-05 13:37] LABS: Hematocrit 25.4 % (37-47); Hemoglobin 8.6 g/dL (12.0-15.0); POSITIVE COUNT YES
[2024-06-05] MEDS: Acetaminophen 325 MG Tablet 650 MG PO (13:58)
--- NOTE | 2024-06-05 15:17 | CASEMGMT ---
sand analyst: Call received from Dorothea Blackburn Location Worker who is available to assist with discharge planning needs once determined. Bere can be reached at [phone]. Evan Recinos RN [facility]
--- NOTE | 2024-06-05 17:38 | EX.PCM.CON.G ---
HPI Consult Data Date of Consult: 06/06/24 HPI Narrative Reason for Consultation: Increased LFTs, anemia and heme positive stools HPI Narrative: ZORA MATUTE, is a 69-year-old female with history of metastatic breast cancer, currently undergoing chemotherapy (last chemo was 5 days ago), aortic valve repair with a prosthetic valve, coronary artery disease, hypertension, hyperlipidemia and GERD presenting with generalized weakness and not feeling good. She notes she has been feeling of the past few days. She has been experiencing lightheadedness. She denies any associated fever, chest pain, shortness breath or cough. She also denies any swelling of her legs. She denies any nausea vomiting, abdominal pain or change in her bowel movements. Does not report any blood in her stool. Denies any urinary symptoms. Thinks this might be associated with her chemo and her white blood cells being low but is not sure. Came in for further evaluation. States that she is due to have her aortic valve replaced routinely at some point. Notes she has had some mild rhinorrhea last few days. Lives at home with a friend but denies any sick contacts. She has a medical history of essential hypertension, hyperlipidemia, history of tobacco abuse (quit 2004), history of invasive ductal breast cancer; metastatic to lymph nodes and bone on chemotherapy (last chemo ~5 days ago), history of CAD and aortic valve regurgitation due to aortic dilatation; s/p CABG x 3 with aortic valve replacement and aneurysm repair plus four subsequent coronary artery stents, history of arrhythmia; s/p PPM/AICD, history of CVA, borderline DM-2, depression with anxiety, history of hysterectomy, history of trigger finger of the Left hand, GERD, osteopenia and osteoarthritis Her laboratory testing revealed significant anemia with hemoglobin of 6.9 g/dL present on admission complicated by critical thrombocytopenia with platelet count of 18K which are currently down to 7k. It was suspected to be due to adverse drug reaction chemotherapy compounded by elevated troponin of 771 pg/mL consistent with suspected non-STEMI type II due to acute cardiac strain related to acutely increased demand from severe anemia. CK of 904 units/L consistent with suspected early rhabdomyolysis in addition to mild hyperbilirubinemia of 1.8 mg/dL with a mildly elevated LFTs. She was then transfused with 2 units of packed red blood cells in addition to maintenance IV fluids as she waited for a bed at a tertiary care center [facility] Medical History (Updated 06/05/24 @ 14:05 by Malgorzata HURD PASantana) Chronic pain Atrial fibrillation ICD (implantable cardioverter-defibrillator) in place Urinary urgency Metastasis to bone Regional lymph node metastasis present Invasive ductal carcinoma of breast Aortic valve regurgitation due to aortic dilation Breast nodule Abnormal findings on imaging test Breast mass, right Skin mole Left knee pain Anxiety and depression Diarrhea Major depressive disorder, recurrent Health care maintenance Flu vaccine need Skin tags, multiple acquired Left hand pain History of cyst of breast History of stroke Heart valve problem GERD (gastroesophageal reflux disease) Hyperlipemia Hypertension Home Medications ?Medication ?Instructions ?Recorded ?Last Taken ?Type aspirin 81 mg chewable tablet 81 mg PO DAILY 11/23/17 06/03/24 History melatonin 10 mg capsule 10 mg PO HS PRN sleep 11/23/17 06/03/24 History calcium carbonate 600 mg PO BID 06/30/18 06/03/24 History amlodipine 10 mg tablet 10 mg PO QDAY #90 tabs 05/11/24 06/03/24 Rx cyclobenzaprine 10 mg tablet 10 mg PO BID PRN muscle spasm #90 05/11/24 06/03/24 Rx tabs lisinopril 40 mg tablet 40 mg PO QDAY #90 tabs 05/11/24 06/03/24 Rx nitroglycerin 0.4 mg sublingual See Rx Instructions .Route 05/11/24 Unknown Rx tablet .COMPLEX #75 tabs pantoprazole 40 mg tablet,delayed 40 mg PO QDAY #90 tabs 05/11/24 06/03/24 Rx release rosuvastatin 20 mg tablet 20 mg PO DAILY #90 tabs 05/11/24 06/03/24 Rx sertraline 100 mg tablet 100 mg PO QDAY #90 tabs 05/11/24 06/03/24 Rx sotalol 120 mg tablet (Betapace) 120 mg PO Q12H #90 tabs 05/11/24 06/03/24 Rx trazodone 100 mg tablet 100 mg PO QHS PRN insomnia #90 tabs 05/11/24 06/03/24 Rx chlorhexidine gluconate 0.12 % 15 ml PO BID 06/04/24 Unknown History mouthwash clopidogrel 75 mg tablet 75 mg PO DAILY 06/04/24 06/03/24 History filgrastim-aafi 300 mcg/0.5 mL 300 mcg subcut DAILY CHEMO 06/04/24 06/03/24 History subcutaneous syringe (Nivestym) lidocaine-prilocaine 2.5 %-2.5 % 1 applic topical X1 06/04/24 06/03/24 History topical cream loratadine 10 mg tablet 10 mg PO DAILY 06/04/24 Unknown History olanzapine 2.5 mg tablet 2.5 mg PO QHS 06/04/24 06/03/24 History Allergy/AdvReac Type Severity Reaction Status Date / Time No Known Allergies Allergy Verified 06/04/24 09:08 Family History Mother CVA (cerebral vascular accident) Breast cancer, Onset Age: 35 Father Heart disease Sister Breast cancer, Onset Age: 50 Heart disease Hypertension Cancer lung Surgical History (Updated 06/05/24 @ 01:[address] Leo Bello DO) History of hysterectomy Cardiac defibrillator in place 4 stents cardiac rythem pacemaker triple bypass, valve replacement, nad aneurysm repair History of tonsillectomy Social History Smoking Status: Former smoker Tobacco: How many years used: 20 how long ago did patient quit smokin alcohol intake: never substance use type: does not use what type of physical activity do you participate in: none ROS Constitutional Constitutional: Reports fatigue, malaise and poor appetite Eyes Eyes: Reports systems reviewed and no addt'l complaints, except as documented ENT HEENT: Reports systems reviewed and no addt'l complaints, except as documented Cardiovascular Cardiovascular: Reports systems reviewed and no addt'l complaints, except as documented Respiratory/Chest Respiratory/Chest: Reports systems reviewed and no addt'l complaints, except as documented Gastrointestinal Gastrointestinal: Reports systems reviewed and no addt'l complaints, except as documented Genitourinary Genitourinary: Reports systems reviewed and no addt'l complaints, except as documented Musculoskeletal Musculoskeletal: Reports systems reviewed and no addt'l complaints, except as documented Integumentary Integumentary: Reports systems reviewed and no addt'l complaints, except as documented Neurologic Neurologic: Reports systems reviewed and no addt'l complaints, except as documented Psychiatric Psychiatric: Reports systems reviewed and no addt'l complaints, except as documented Endocrine Endocrinology: Reports systems reviewed and no addt'l complaints, except as documented Hematologic/Lymphatic Hematologic/Lymphatic: Reports systems reviewed and no addt'l complaints, except as documented Allergic/Immunologic Allergic/Immunologic: Reports systems reviewed and no addt'l complaints, except as documented Physical Exam Const alert, oriented x3 and no apparent distress HEENT normocephalic and head/scalp atraumatic Eyes PERRL Neck full ROM Lymph Lymphatic: no lymphadenopathy noted Resp normal respiratory effort and clear to auscultation bilaterally Cardio regular rhythm Rate: tachycardic GI GI Narrative: Abdomen- soft, distended, Non-tender. Hypoactive bowel sounds. no CVA tenderness Back/Spine no CVA tenderness Extremity normal to inspection Skin no rashes or lesions noted Neuro no focal motor deficits and no sensory deficits noted Psych Mood & Affect: anxious Lab / Micro Data 06/06/24 07:26 06/06/24 07:26 Labs: Laboratory Results - last 24 hr 06/04/24 10:14: Diff Path Review Reviewed 06/04/24 11:40: Crossmatch See Detail 06/05/24 01:06: WBC 4.8, RBC 3.27 L, Hgb 9.3 L, Hct 27.2 L, MCV 83.2 D, MCH 28.4, MCHC 34.2, RDW Std Deviation 42.9, RDW Coeff of Margareth 16.0 H, Plt Count 7 L*, Neut % (Auto) Not Reportable, Absolute Neuts (auto) 4.5, Absolute Lymphs (auto) 0.19 L, Total Counted 100, Neutrophils % (Manual) 95 H, Lymphocytes % (Manual) 4 L, Monocytes % (Manual) 1, Diff Path Review February foll, Platelet Estimate MKD DEC, Anisocytosis 1+, Ovalocytes 1+, D-Dimer Quant (PE/DVT) 2.50 H*, Sodium 127 L, Potassium 4.4, Chloride 98, Carbon Dioxide 21.0, Anion Gap 8, BUN 31 H, Creatinine 0.78, Est GFR (MDRD) Af Amer 93, Est GFR (MDRD) Non-Af 77, BUN/Creatinine Ratio 39.6 H, Glucose 131 H, Calcium 7.7 L, Phosphorus 2.7, Magnesium 1.9, Iron 134, TIBC 303, Iron Saturation 44.2, Ferritin 1858 H, Total Bilirubin 3.60 H, AST 59 H, ALT 75 H, Alkaline Phosphatase 127 H, Total Creatine Kinase 1339 H, B-Natriuretic Peptide 1045.4 H, Total Protein 5.5 L, Albumin 2.4 L, Globulin 3.1, Albumin/Globulin Ratio 0.8 L, Vitamin B12 1430 H, Folate 5.50 06/05/24 10:04: Hgb 8.7 L, Hct 25.2 L 06/05/24 13:30: Hgb 8.6 L, Hct 25.4 L Micro: Microbiology 06/04/24 15:30 Stool Stool Occult Blood (MARBELLA) - Final Occult Blood Positive Rhythm Strip Rhythm Strip: Sinus Tach Rate: 120 Ectopy: None Imaging Radiology Impression Abdomen/Pelvis CT 06/05/24 04:54 IMPRESSION: 1. There is mild enlargement and increased density of the left psoas muscle with mild adjacent stranding in the retroperitoneum. This likely indicates a mild intramuscular hematoma. Correlate for coagulopathy or other predisposing factors. 2. No other acute abnormalities in the abdomen/pelvis. 3. Small stone in the gallbladder. Electronically Signed: Donald Rodriges MD at 6:40 EDT Reading Location ID and State: [facility] / [place] Tel , Service support , ADDENDUM: 06/05/24 0653 IMPRESSION: 1. There is mild enlargement and increased density of the left psoas muscle with mild adjacent stranding in the retroperitoneum. This likely indicates a mild intramuscular hematoma. Correlate for coagulopathy or other predisposing factors. 2. No other acute abnormalities in the abdomen/pelvis. 3. Small stone in the gallbladder. N.B. : Renay Park RN, confirmed on 06/05/2024 06:46:59 (ET) that the healthcare facility has received the radiology report. Electronically Signed: Donald Rodriges MD at 6:40 EDT , Assessment & Plan Assessment/Plan (1) Severe anemia: (2) Thrombocytopenia: (3) Adverse drug reaction: QUALIFIERS: Encounter type: initial encounter Qualified Code(s): T50.905A - Adverse effect of unspecified drugs, medicaments and biological substances, initial encounter (4) Non-ST elevation IN (NSTEMI): (5) CAD (coronary artery disease): QUALIFIERS: Associated angina: without angina Coronary Disease-Associated Artery/Lesion type: unspecified vessel or lesion type [place] vs. transplanted heart: [place] heart Qualified Code(s): I25.10 - Atherosclerotic heart disease of [place] coronary artery without angina pectoris (6) History of coronary artery bypass graft x 3: (7) Aortic valve regurgitation due to aortic dilation: (8) Hyponatremia: (9) Rhabdomyolysis: QUALIFIERS: Rhabdomyolysis type: non-traumatic Qualified Code(s): M62.82 - Rhabdomyolysis (10) Invasive ductal carcinoma of breast: QUALIFIERS: Laterality: right Qualified Code(s): C50.911 - Malignant neoplasm of unspecified site of right female breast (11) Hyperbilirubinemia: PLAN: Plan 69-year-old woman unfortunate past medical history of breast cancer on chemotherapy who presents with fatigue and weakness and discovered to have Significant anemia with hemoglobin of 6.9 g/dL present on admission requiring transfusion. Current hemoglobin is at 8.6. She went up to 9.7 then went down to 8.7 and is currently at 8.6. She is Hemoccult positive. She is not hypotensive or tachycardic at this time. She does not seem to be in any distress. I do not think she needs endoscopic evaluation at this time. Continue to monitor hemoglobin.- Severe thrombocytopenia with platelet count of 18K and currently is down to 7K. No sign of spontaneous bleeding at this time. Guarded prognosis. Awaiting platelets for transfusion. Cholestatic hepatitis with jaundice-I think she most likely has chemotherapy induced liver injury causing cholestatic hepatitis with jaundice. Chemotherapy can cause liver injury,. It affects zone 3 of the liver which is responsible for metabolism of most medications. Typically is diagnosed with a liver biopsy. Since her platelet count is really low I do not think we should do lab work at this time for acute or chronic hepatitis as she is getting transferred. However if her labs keep going up today and tomorrow then we will need to check for worsening liver injury by checking viral studies and autoimmune workup. Hepatic steatosis:?Up to 85% of patients develop liver steatosis, which can indicate disturbed lipid metabolism.?This can lead to higher vulnerability to irreversible damage, especially during repeated chemotherapy.? SOS2:?Another form of chemotherapy-induced liver injury.? Pseudocirrhosis:?Can simulate long-term hepatic damage and cirrhosis.? Hepatic necrosis:?Can occur as a direct result of chemotherapy. Check INR, follow LFTs. She may benefit from N-acetylcysteine if she is going to be here for an extended period of time and if her LFTs keep going up. I will continue to follow. Charges/Coding Visit Charges Inpatient E&M: 83553 Init Hosp L3
[2024-06-05 18:20] LABS: Hematocrit 23.8 % (37-47); Hemoglobin 8.1 g/dL (12.0-15.0)
--- NOTE | 2024-06-05 23:29 | NURSING ---
Nurse to Nurse report given to Marko at with no questions. Pt stated she has talked to her family (a few of them) and updated that she was being transferred to around midnight. No concerns voiced.
[2024-06-06] MEDS: Acetaminophen 325 MG Tablet 650 MG PO (03:21)
[2024-06-06 04:17] VITALS: BP 96/52; PULSE 78; RESP 17; TEMP 36.6; O2SAT 96
[2024-06-06 04:21] VITALS: BMI 29.4
[2024-06-06 06:00] VITALS: BMI 29.4
[2024-06-06 06:47] VITALS: BP 98/58; PULSE 88; RESP 16; TEMP 36.8; O2SAT 94
--- NOTE | 2024-06-06 07:29 | DS.PCM_ITS ---
Providers Date of Admission: 06/05/24 Date of Discharge: 06/06/24 Primary Care Physician: Dr. Mayra Fallon MD Consultations 06/05/24 07:17 Consult: General Surgery Routine Consulting Provider: Dawson Sherman Reason for Consult: Retroperitoneal bleed EMERGENT Consult: No Notified: Yes Date Notified: 06/05/24 Time Notified: 07:17 Method of Notification: Text 06/05/24 07:31 Consult: Gastroenterology Routine Consulting Provider: [facility] Reason for Consult: Acute anemia, multifactorial, component GI bleed EMERGENT Consult: No MD Notified: Yes Date Notified: 06/05/24 Time Notified: 07:31 Method of Notification: Verbal Reason For Visit: SEVERE ANEMIA, CRITICAL THROMBOCYTOPENIA AND Diagnosis Discharge Diagnosis (1) Severe anemia: Status: Acute Code(s): D64.9 - Anemia, unspecified (2) Thrombocytopenia: Status: Acute Code(s): D69.6 - Thrombocytopenia, unspecified (3) Adverse drug reaction: Status: Acute Code(s): T50.905A - Adverse effect of unspecified drugs, medicaments and biological substances, initial encounter Qualifiers: Encounter type: initial encounter Qualified Code(s): T50.905A - Adverse effect of unspecified drugs, medicaments and biological substances, initial encounter (4) Non-ST elevation [place] (NSTEMI): Status: Acute Code(s): I21.4 - Non-ST elevation (NSTEMI) myocardial infarction (5) CAD (coronary artery disease): Status: Chronic Code(s): I25.10 - Atherosclerotic heart disease of [place] coronary artery without angina pectoris Qualifiers: Coronary Disease-Associated Artery/Lesion type: unspecified vessel or lesion type [place] vs. transplanted heart: [place] heart Associated angina: w ithout angina Qualified Code(s): I25.10 - Atherosclerotic heart disease of [place] coronary artery without angina pectoris (6) History of coronary artery bypass graft x 3: Status: Acute Code(s): Z95.1 - Presence of aortocoronary bypass graft (7) Aortic valve regurgitation due to aortic dilation: Status: Acute Code(s): I35.1 - Nonrheumatic aortic (valve) insufficiency; I77.819 - Aortic ectasia, unspecified site (8) Hyponatremia: Status: Acute Code(s): E87.1 - Hypo-osmolality and hyponatremia (9) Rhabdomyolysis: Status: Acute Code(s): M62.82 - Rhabdomyolysis Qualifiers: Rhabdomyolysis type: non-traumatic Qualified Code(s): M62.82 - Rhabdomyolysis (10) Invasive ductal carcinoma of breast: Status: Chronic Code(s): C50.919 - Malignant neoplasm of unspecified site of unspecified female breast Qualifiers: Laterality: right Qualified Code(s): C50.911 - Malignant neoplasm of unspecified site of right female breast (11) Hyperbilirubinemia: Status: Acute Code(s): E80.6 - Other disorders of bilirubin metabolism Plan DISCHARGE DIAGNOSES: #1. Acute on chronic normocytic anemia, likely multifactorial in addition to acute nontraumatic retroperitoneal bleed with intramuscular hematoma noted on CT imaging complicated by underlying severe acute thrombocytopenia possibly secondary to underlying chemotherapy and possible concurrent Acute GI bleed #2. Acute NSTEMI in the setting of CAD s/p CABG and PCI, likely secondary to demand secondary to acute presentation as noted with severe anemia #3. Acute Hyperbilirubinemia, transaminitis #4. Acute Rhabdomyolysis #5. Hyponatremia, possible hypovolemic component but unclear #6. Chronic Kidney Disease Stage III, unclear subtype per GFR trending noted previously #7. Invasive ductal breast cancer with metastasis to lymph nodes and bone #8. Valvular heart disease with concurrent history aneurysm #9. Anxiety and depression #10. History CVA #11. Cardiac arrhythmia, PAF suspected #12. Hyperlipidemia #13. Hypertension #14. Former tobacco use #15. CODE status: Patient AZEEM is her Sister Zuly and living will is currently in place. Full Code status. Medications at Discharge Home Medications aspirin 81 mg chewable tablet 81 mg PO DAILY 11/23/17 melatonin 10 mg capsule 10 mg PO HS PRN sleep 11/23/17 calcium carbonate 600 mg PO BID 06/30/18 amlodipine 10 mg tablet 10 mg PO QDAY #90 tabs 05/11/24 cyclobenzaprine 10 mg tablet 10 mg PO BID PRN muscle spasm #90 tabs 05/11/24 lisinopril 40 mg tablet 40 mg PO QDAY #90 tabs 05/11/24 nitroglycerin 0.4 mg sublingual tablet See Rx Instructions .Route .COMPLEX #75 tabs 05/11/24 pantoprazole 40 mg tablet,delayed release 40 mg PO QDAY #90 tabs 05/11/24 rosuvastatin 20 mg tablet 20 mg PO DAILY #90 tabs 05/11/24 sertraline 100 mg tablet 100 mg PO QDAY #90 tabs 05/11/24 sotalol 120 mg tablet (Betapace) 120 mg PO Q12H #90 tabs 05/11/24 trazodone 100 mg tablet 100 mg PO QHS PRN insomnia #90 tabs 05/11/24 chlorhexidine gluconate 0.12 % mouthwash 15 ml PO BID 06/04/24 clopidogrel 75 mg tablet 75 mg PO DAILY 06/04/24 filgrastim-aafi 300 mcg/0.5 mL subcutaneous syringe (Nivestym) 300 mcg subcut DAILY CHEMO 06/04/24 lidocaine-prilocaine 2.5 %-2.5 % topical cream 1 applic topical X1 06/04/24 loratadine 10 mg tablet 10 mg PO DAILY 06/04/24 olanzapine 2.5 mg tablet 2.5 mg PO QHS 06/04/24 Hospital Course Operations None Procedures 2-D Echocardiogram, Blood transfusion and EKG Summary of Care Provided Minutes Spent on Discharge: 35 Hospital Course: The patient is a 69 yo F w/ PMHx: CKD stage III unclear subtype, HTN, HLD, Former tobacco use, Invasive ductal breast cancer metastatic to lymph nodes and bone on chemotherapy, CAD s/p CABG x 3 and PCI x 4, Valvular Heart Disease s/p AV replacement and also aneurysm repair, s/p PPM/AICD, Hx CVA, Borderline Diabetes mellitus type II, Anxiety and Depression, GERD who presented to the [facility] ED on 06/04/24 with history of generalized weakness and fatigue. Given ED presentation patient transfer initiated to however no beds were initially available thus patient was temporarily admitted until bed obtained. Admission hemoglobin 6.9, prior to this 04/29/2024 hemoglobin 10.8 with baseline previous primarily 09-29, MCV normocytic range, admission platelet 18, decrease now to 7 with prior to this 04/29/2024 329 possibly secondary to underlying chemotherapy, guaiac returned positive, admitted to PCU, maintained on monitor, administered 2 unit PRBC with improvement of hemoglobin to 9.3, CT abdomen and pelvis with mild enlargement increased density left psoas muscle with mild adjacent stranding in the retroperitoneum likely secondary to a mild intramuscular hematoma, small stone in the gallbladder and unfortunately inability to obtain platelets quickly then complicated by noted retroperitoneal bleed and potentially GI bleed with positive guiac as noted. Patient was maintained on clears with IV Protonix with cycling of H&Hs, GI consulted to be cautious also. EKG in ED w/ no acute evidence of ischemia, CXR w/ no overt overload. Trop elevated, 771 upon presentation with BNP mildly elevated 683.7. Continue closely monitor given PRBC administration, judicious IV Lasix usage especially given bleed and concern for potential deterioration, given severe thrombocytopenia holding all antiplatelet therapy, continued on sotalol, lisinopril as well as statin therapy held. Magnesium 1.9. ECHO obtained with noted EF 70% inability to assess diastolic function, no significant valvular abnormalities. Admission CMP with total bilirubin 1.80, AST/ALT 92/116, repeat 06/05/2024 CMP with total bilirubin 3.60, AST/ALT 59/75, alk phos 127, suspected likely involves with possibly #1, CT abdomen pelvis with no overt finding in the liver, GI consulted and will evaluation. Admission TCK 904, increased to 1339, maintained on judicious hydration given underlying history be cautious with continued trending of TCK, renal function, liver function and monitored urine output. Admission Na 126, continued judicious hydration, continued to trend CMP. Once patient obtained bed at , transfer completed with patient in stable condition. Patient transferred with last Hgb check 8.1; however, transferred prior to 07/07/24 AM labs of note. Weight / BMI Weight Weight: 150 lb 9.211 oz Body Mass Index (BMI) 29.4 ABG / Lab / Microbiology Data 06/05/24 18:10 06/05/24 01:06 Laboratory: Laboratory Results - last 24 hr 06/04/24 10:14: Diff Path Review Reviewed 06/05/24 01:06: Vitamin B12 1430 H 06/05/24 10:04: Hgb 8.7 L, Hct 25.2 L 06/05/24 13:30: Hgb 8.6 L, Hct 25.4 L 06/05/24 18:10: Hgb 8.1 L, Hct 23.8 L Microbiology: Microbiology 06/04/24 15:30 Stool Stool Occult Blood (MARBELLA) - Final Occult Blood Positive 06/04/24 10:33 Mucosa - Nose SARS-CoV-2, Influenza & RSV (PCR) - Final Meaningful Use Info Meaningful Use Meaningful Use Diagnoses (Choose all that apply): None applicable Ischemic Stroke Statin Dosing Therapy Reference: STATIN DOSE THERAPY REFERENCE: * Patients > 75 years receive moderate or high dose statin therapy. * Patients 75 years or YOUNGER should receive HIGH intensity statin dose unless contraindicated. You will be required to document reason for non-treatment if statin daily dose does not meet guidelines. HIGH DOSE STATIN THERAPY DAILY Atorvastatin > than or = to 40 mg Rosuvastatin > than or = to 20 mg Amlodipine + Atorvastatin > than or = to 2.5/40 mg Ezetimibe + Simvastatin 10/80 mg Simvastatin 80mg Discharge Plan Admission Admit Date/Time: 06/05/24 01:04 Attending Provider: Tere Price Primary Care Provider: Mayra Fallon Consulting Providers: Leo Bello; Dawson Sherman Discharge Orders/Prescriptions Prescriptions: No Action aspirin 81 mg tablet,chewable 81 mg PO DAILY melatonin 10 mg capsule 10 mg PO HS PRN (Reason: sleep) calcium carbonate 600 mg calcium (1,500 mg) tablet 600 mg PO BID rosuvastatin 20 mg tablet 20 mg PO DAILY Qty: 90 3RF Rx Instructions: TAKE 1 TABLET BY MOUTH ONCE DAILY pantoprazole 40 mg tablet,delayed release (DR/EC) 40 mg PO QDAY Qty: 90 3RF trazodone 100 mg tablet 100 mg PO QHS PRN (Reason: insomnia) Qty: 90 1RF sertraline 100 mg tablet 100 mg PO QDAY Qty: 90 2RF lisinopril 40 mg tablet 40 mg PO QDAY Qty: 90 3RF nitroglycerin 0.4 mg tablet, sublingual See Rx Instructions .ROUTE .COMPLEX Qty: 75 1RF Dose Instruction: DISSOLVE 1 TABLET UNDER TONGUE EVERY 5 MINUTES NEEDED FOR CHEST PAIN Rx Instructions: DISSOLVE 1 TABLET UNDER TONGUE EVERY 5 MINUTES NEEDED FOR CHEST PAIN amlodipine 10 mg tablet 10 mg PO QDAY Qty: 90 3RF sotalol [Betapace] 120 mg tablet 120 mg PO Q12H Qty: 90 3RF cyclobenzaprine 10 mg tablet 10 mg PO BID PRN (Reason: muscle spasm) Qty: 90 0RF Nivestym 300 mcg/0.5 mL syringe 300 mcg subcut DAILY Rx Instructions: //INJECT SUBCUTANEOUSLY FOR 4 DAYS STARTING 24 HOURS AFTER EACH CHEMO, LAST DOSE 06/03/24 WHICH WAS DOSE #3 olanzapine 2.5 mg tablet 2.5 mg PO QHS loratadine 10 mg tablet 10 mg PO DAILY Rx Instructions: TAKE DAY OF CHEMO, AND 5 DAYS AFTER lidocaine-prilocaine 2.5-2.5 % cream 1 applic topical X1 chlorhexidine gluconate 0.12 % mouthwash 15 ml PO BID Rx Instructions: TAKE NIGHT BEFORE AND MORNING OF SURGERY SCHEDULED IN JULY clopidogrel 75 mg tablet 75 mg PO DAILY Referrals / Follow Up: Mayra Fallon MD [Primary Care Provider] - Disposition Disposition (needs filled in before D/C Order can be placed): Acute Care Hospital Charges/Coding Visit Charges Inpatient E&M: 65705 Disch Hosp >30min
--- NOTE | 2024-06-06 07:29 | NURSING ---
nurse to nurse update given to Marko at [facility].
[2024-06-06 08:00] LABS: Absolute Neutrophil Count 3.4 X10^3/uL (2.0-7.7); Basophil# 0.01 X10^3/uL; Basophil% 0.3 % (0-1); Eosinophil# 0.01 X10^3/uL; Eosinophils% 0.3 % (0-5); Hematocrit 22.9 % (37-47); Hemoglobin 7.7 g/dL (12.0-15.0); Lymphocyte % 5.5 % (19-41); Mean Corp Hgb Conc 33.6 g/dL (32-36); Mean Corpuscular Hgb 29.4 pg (27.0-32.0); Mean Corpuscular Volume 87.4 fL (81-99); Mean Platelet Vol. 10.1 fl (6.2-12.0); Monocyte# 0.03 X10^3/uL; Monocyte% 0.8 % (0-10); NRBC Flagged by Analyzer 0 % (0-5); Neutrophil # 3.36 X10^3/uL (2.7-7.7); POSITIVE COUNT YES; POSITIVE DIFFERENTIAL YES; POSITIVE MORPHOLOGY YES; RBC Distribution Width CV 16.4 % (11.6-14.6); RBC Distribution Width SD 48.3 fl (35.1-43.9); Red Blood Count 2.62 M/mm3 (4.2-5.4); White Blood Count 3.7 K/mm3 (4.4-11.0)
[2024-06-06 08:18] LABS: Differential Indicated SCAN CRITERIA MET; Platelet Count 27 K/mm3 (150-450)
[2024-06-06 08:22] LABS: ALB/GLOB Ratio 0.7 RATIO (0.9-2.4); AST(SGOT) 59 U/L (15-37); Alanine Aminotransfer ALT/SGPT 59 U/L (13-56); Albumin, Serum 2.1 g/dL (3.2-5.0); Alkaline Phosphatase 179 U/L (45-117); Anion Gap 8 (5-15); BUN 26 mg/dL (7-18); BUN/Creat Ratio 30.8 RATIO (10-20); Calcium,Total 8.1 mg/dL (8.5-10.1); Chloride 102 mmol/L (98-107); Cholesterol 92 mg/dL (200); Creatinine, Serum 0.84 mg/dL (0.55-1.02); EST Glomerular Filtration Rate 71 mL/min (>60); Est Glom Filt Rate - Afr Amer 86 mL/min (>60); Estimated Creatinine Clearance 53.73 ml/min; Globulin 3.1 g/dL (2.2-4.2); Glucose 98 mg/dL (74-106); High Density Lipoprotein 23 mg/dL; Potassium 3.9 mmol/L (3.5-5.1); Protein, Total 5.2 g/dL (6.4-8.2); Sodium Level 130 mmol/L (136-145); Triglycerides 87 mg/dL; Very Low Density Lipoprotein 17 mg/dL (5-40)
[2024-06-06 08:40] LABS: Pathologist Review Reviewed
[2024-06-06 09:15] LABS: Platelet Estimate MKD DEC (ADEQ)
[2024-06-06 10:09] LABS: HEPATITIS B SURFACE AG Negative (Negative); Hep C Antibodies Non Reactive (Non Reactive); Hepatitis A IgM Antibody Negative (Negative); Hepatitis B Core AB IgM Negative (Negative)
[2024-06-06 11:54] LABS: Pathologist Review Reviewed
== END 2024-06-06 07:23 | disposition short-term general hospital (02) | DRG 811 ==
LOC: ED 18:03 → PCU 06-05 05:06
PROVIDERS: Admitting Provider Internal Medicine; Emergency Provider Emergency Medicine; PCP Internal Medicine; Visit Provider Family Medicine
DX: D64.81 Anemia due to antineoplastic chemotherapy (principal); I21.A1 Myocardial infarction type 2; C79.51 Secondary malignant neoplasm of bone; M62.82 Rhabdomyolysis; C77.9 Secondary and unspecified malignant neoplasm of lymph node, unspecified; E87.1 Hypo-osmolality and hyponatremia; K92.2 Gastrointestinal hemorrhage, unspecified; D62 Acute posthemorrhagic anemia; D69.6 Thrombocytopenia, unspecified; N18.30 Chronic kidney disease, stage 3 unspecified; I35.1 Nonrheumatic aortic (valve) insufficiency; I12.9 Hypertensive chronic kidney disease with stage 1 through stage 4 chronic kidney disease, or unspecified chronic kidney disease; F32.A Depression, unspecified; I48.0 Paroxysmal atrial fibrillation; C50.911 Malignant neoplasm of unspecified site of right female breast; K21.9 Gastro-esophageal reflux disease without esophagitis; I25.10 Atherosclerotic heart disease of native coronary artery without angina pectoris; E78.5 Hyperlipidemia, unspecified; I25.2 Old myocardial infarction; M19.90 Unspecified osteoarthritis, unspecified site; F41.9 Anxiety disorder, unspecified; M85.80 Other specified disorders of bone density and structure, unspecified site; R73.03 Prediabetes; T45.1X5A Adverse effect of antineoplastic and immunosuppressive drugs, initial encounter; R74.01 Elevation of levels of liver transaminase levels; Z95.810 Presence of automatic (implantable) cardiac defibrillator; Z79.82 Long term (current) use of aspirin; Z79.899 Other long term (current) drug therapy; Z79.02 Long term (current) use of antithrombotics/antiplatelets; Z87.891 Personal history of nicotine dependence; Z95.5 Presence of coronary angioplasty implant and graft; Z95.1 Presence of aortocoronary bypass graft; Z86.73 Personal history of transient ischemic attack (TIA), and cerebral infarction without residual deficits
CPT/HCPCS: 36415; 36591; 71045; 73502; 74178; 80053; 80061; 80074; 81001; 82274; 82550; 82607; 82728; 82746; 83540; 83550; 83605; 83735; 83880; 84100; 84484; 85014; 85018; 85025; 85379; 86644; 86850; 86900; 86901; 86920; 86922; 86965; 87040; 87631; 93005; 93306; 94668; 97802; 99285; J7030; J7040; P9016; P9035; P9612; Q9957; Q9967; A4216; C8929

== ENCOUNTER 2024-09-24 14:59 | Emergency (ER) | payer MEDICARE, MEDICAID, SELFPAY ==
[2024-09-24 15:00] VITALS: BP 123/40; PULSE 66; RESP 19; TEMP 36.6; O2SAT 95; BMI 27.5
--- NOTE | 2024-09-24 15:12 | EDS_ITS ---
HPI History of Present Illness Chief Complaint: Upper Extremity Injury [facility] Medical History Nontraumatic psoas hematoma Hyperbilirubinemia Severe anemia Non-ST elevation [place] (NSTEMI) Rhabdomyolysis Thrombocytopenia CAD (coronary artery disease) Chronic pain Atrial fibrillation ICD (implantable cardioverter-defibrillator) in place Urinary urgency Metastasis to bone Regional lymph node metastasis present Invasive ductal carcinoma of breast Aortic valve regurgitation due to aortic dilation Breast nodule Abnormal findings on imaging test Breast mass, right Skin mole Left knee pain Anxiety and depression Diarrhea Major depressive disorder, recurrent Health care maintenance Flu vaccine need Skin tags, multiple acquired Left hand pain History of cyst of breast History of stroke Heart valve problem GERD (gastroesophageal reflux disease) Hyperlipemia Hypertension Home Medications ?Medication ?Instructions ?Recorded ?Last Taken ?Type aspirin 81 mg chewable tablet 81 mg PO DAILY 11/23/17 06/03/24 History melatonin 10 mg capsule 10 mg PO HS PRN sleep 11/23/17 06/03/24 History calcium carbonate 600 mg PO BID 06/30/18 06/03/24 History amlodipine 10 mg tablet 10 mg PO QDAY #90 tabs 05/11/24 06/03/24 Rx cyclobenzaprine 10 mg tablet 10 mg PO BID PRN muscle spasm #90 05/11/24 06/03/24 Rx tabs lisinopril 40 mg tablet 40 mg PO QDAY #90 tabs 05/11/24 06/03/24 Rx nitroglycerin 0.4 mg sublingual See Rx Instructions .Route 05/11/24 Unknown Rx tablet .COMPLEX #75 tabs pantoprazole 40 mg tablet,delayed 40 mg PO QDAY #90 tabs 05/11/24 06/03/24 Rx release rosuvastatin 20 mg tablet 20 mg PO DAILY #90 tabs 05/11/24 06/03/24 Rx sertraline 100 mg tablet 100 mg PO QDAY #90 tabs 05/11/24 06/03/24 Rx sotalol 120 mg tablet (Betapace) 120 mg PO Q12H #90 tabs 05/11/24 06/03/24 Rx trazodone 100 mg tablet 100 mg PO QHS PRN insomnia #90 tabs 05/11/24 06/03/24 Rx clopidogrel 75 mg tablet 75 mg PO DAILY 06/04/24 06/03/24 History olanzapine 2.5 mg tablet 2.5 mg PO QHS 06/04/24 06/03/24 History handicap placard #1 ea 09/01/24 Unknown Rx Allergy/AdvReac Type Severity Reaction Status Date / Time No Known Allergies Allergy Verified 09/01/24 09:42 Family History Mother CVA (cerebral vascular accident) Breast cancer, Onset Age: 35 Father Heart disease Sister Breast cancer, Onset Age: 50 Heart disease Hypertension Cancer lung Surgical History History of coronary artery bypass graft x 3 History of hysterectomy Cardiac defibrillator in place 4 stents cardiac rythem pacemaker triple bypass, valve replacement, nad aneurysm repair History of tonsillectomy Social History Smoking Status: Former smoker Tobacco: How many years used: 20 how long ago did patient quit smokin alcohol intake: never substance use type: does not use what type of physical activity do you participate in: none EXAM Physical Exam Const Vital Signs: 09/24/24 15:00 Temperature 97.9 F Temperature Source Oral Pulse Rate 66 Respiratory Rate 19 H Blood Pressure 123/40 H Blood Pressure Mean 67 Pulse Ox 95 Oxygen Delivery Method Room Air Discharge Plan Triage Chief Complaint: Upper Extremity Injury ED Provider: Juan Jose Lechuga Dx/Rx/DC Orders Prescriptions: No Action aspirin 81 mg tablet,chewable 81 mg PO DAILY melatonin 10 mg capsule 10 mg PO HS PRN (Reason: sleep) calcium carbonate 600 mg calcium (1,500 mg) tablet 600 mg PO BID rosuvastatin 20 mg tablet 20 mg PO DAILY Qty: 90 3RF Rx Instructions: TAKE 1 TABLET BY MOUTH ONCE DAILY pantoprazole 40 mg tablet,delayed release (DR/EC) 40 mg PO QDAY Qty: 90 3RF trazodone 100 mg tablet 100 mg PO QHS PRN (Reason: insomnia) Qty: 90 1RF sertraline 100 mg tablet 100 mg PO QDAY Qty: 90 2RF lisinopril 40 mg tablet 40 mg PO QDAY Qty: 90 3RF nitroglycerin 0.4 mg tablet, sublingual See Rx Instructions .ROUTE .COMPLEX Qty: 75 1RF Dose Instruction: DISSOLVE 1 TABLET UNDER TONGUE EVERY 5 MINUTES NEEDED FOR CHEST PAIN Rx Instructions: DISSOLVE 1 TABLET UNDER TONGUE EVERY 5 MINUTES NEEDED FOR CHEST PAIN amlodipine 10 mg tablet 10 mg PO QDAY Qty: 90 3RF sotalol [Betapace] 120 mg tablet 120 mg PO Q12H Qty: 90 3RF cyclobenzaprine 10 mg tablet 10 mg PO BID PRN (Reason: muscle spasm) Qty: 90 0RF (DME) handicap placard See Rx Instructions .Route .MEDSUPPLY Qty: 1 0RF Rx Instructions: placard for one year olanzapine 2.5 mg tablet 2.5 mg PO QHS clopidogrel 75 mg tablet 75 mg PO DAILY Primary Care Provider: Mayra Fallon Referrals: Mayra Fallon MD [Primary Care Provider] - Print Language: Korean
--- NOTE | 2024-09-24 15:26 | EDS_ITS ---
HPI History of Present Illness Chief Complaint: Upper Extremity Injury Informant: patient Onset/Context/Timing Onset: Today and Hours (1) Activity at onset: sudden Timing: Continuous Quality: Positive for Stabbing Location: Left Chest Worsened By: Nothing Relieved By: - (Palpation) Associated Symptoms: Positive for Lightheadedness; Negative for Nausea, Vomiting, Diaphoresis, Dyspnea, Cough, Fever, Acid Reflux or Palpitations Narrative Narrative: Patient presents with left chest pain that began approximately 1 hour prior to arrival. Patient states the pain is constant. Patient describes the pain as stabbing. Patient states the pain is over the left side of her chest. Patient states it radiates into her left axilla. Patient states nothing makes it worse. Patient states it feels better with palpation. Patient denies any paresthesias or weakness. Patient states she had recent bypass and valve replacement 2 months ago. CVD Risk Factors: Positive for Hypertension, Diabetes, Hypercholesterolemia and Family History 1' </=55; Negative for Smoking PE Risk Factors: Positive for Recent Travel/Surgery and Cancer; Negative for Recent Immobilization or Prior DVT or PE [facility] Medical History Nontraumatic psoas hematoma Hyperbilirubinemia Severe anemia Non-ST elevation MO (NSTEMI) Rhabdomyolysis Thrombocytopenia CAD (coronary artery disease) Chronic pain Atrial fibrillation ICD (implantable cardioverter-defibrillator) in place Urinary urgency Metastasis to bone Regional lymph node metastasis present Invasive ductal carcinoma of breast Aortic valve regurgitation due to aortic dilation Breast nodule Abnormal findings on imaging test Breast mass, right Skin mole Left knee pain Anxiety and depression Diarrhea Major depressive disorder, recurrent Health care maintenance Flu vaccine need Skin tags, multiple acquired Left hand pain History of cyst of breast History of stroke Heart valve problem GERD (gastroesophageal reflux disease) Hyperlipemia Hypertension Home Medications ?Medication ?Instructions ?Recorded ?Last Taken ?Type aspirin 81 mg chewable tablet 81 mg PO DAILY 11/23/17 06/03/24 History melatonin 10 mg capsule 10 mg PO HS PRN sleep 11/23/17 06/03/24 History calcium carbonate 600 mg PO BID 06/30/18 06/03/24 History amlodipine 10 mg tablet 10 mg PO QDAY #90 tabs 05/11/24 06/03/24 Rx cyclobenzaprine 10 mg tablet 10 mg PO BID PRN muscle spasm #90 05/11/24 06/03/24 Rx tabs lisinopril 40 mg tablet 40 mg PO QDAY #90 tabs 05/11/24 06/03/24 Rx nitroglycerin 0.4 mg sublingual See Rx Instructions .Route 05/11/24 Unknown Rx tablet .COMPLEX #75 tabs pantoprazole 40 mg tablet,delayed 40 mg PO QDAY #90 tabs 05/11/24 06/03/24 Rx release rosuvastatin 20 mg tablet 20 mg PO DAILY #90 tabs 05/11/24 06/03/24 Rx sertraline 100 mg tablet 100 mg PO QDAY #90 tabs 05/11/24 06/03/24 Rx sotalol 120 mg tablet (Betapace) 120 mg PO Q12H #90 tabs 05/11/24 06/03/24 Rx trazodone 100 mg tablet 100 mg PO QHS PRN insomnia #90 tabs 05/11/24 06/03/24 Rx clopidogrel 75 mg tablet 75 mg PO DAILY 06/04/24 06/03/24 History olanzapine 2.5 mg tablet 2.5 mg PO QHS 06/04/24 06/03/24 History handicap placard #1 ea 09/01/24 Unknown Rx amoxicillin 875 mg-potassium 875 mg PO Q12H #20 TABLETS 09/24/24 Unknown Rx clavulanate 125 mg tablet Allergy/AdvReac Type Severity Reaction Status Date / Time No Known Allergies Allergy Verified 09/01/24 09:42 Family History Mother CVA (cerebral vascular accident) Breast cancer, Onset Age: 35 Father Heart disease Sister Breast cancer, Onset Age: 50 Heart disease Hypertension Cancer lung Surgical History History of coronary artery bypass graft x 3 History of hysterectomy Cardiac defibrillator in place 4 stents cardiac rythem pacemaker triple bypass, valve replacement, nad aneurysm repair History of tonsillectomy Social History Smoking Status: Former smoker Tobacco: How many years used: 20 how long ago did patient quit smokin alcohol intake: never substance use type: does not use what type of physical activity do you participate in: none ROS ROS ED Constitutional Constitutional ED: Denies chills or fever(s) Eyes Eyes: Denies blurry vision or change in vision ENT ENT ED: Denies rhinorrhea or sore throat Cardiovascular Cardiovascular: Reports chest pain; Denies palpitations Respiratory/Chest Respiratory/Chest: Denies cough or dyspnea Gastrointestinal Gastrointestinal: Denies nausea or vomiting Genitourinary Genitourinary ED: Denies dysuria or hematuria Musculoskeletal Musculoskeletal: Denies back pain or neck pain Integumentary Denies abscess or rash Neurologic Neurologic: Denies headache(s) or weakness Allergic/Immunologic Allergic/Immunologic ED: Denies mouth swelling or urticaria EXAM Physical Exam Const Vital Signs: 09/24/24 15:00 09/24/24 15:50 09/24/24 16:00 Temperature 97.9 F Temperature Source Oral Pulse Rate 66 80 Respiratory Rate 19 H 16 Blood Pressure 123/40 H 128/89 H Blood Pressure Mean 67 100 Pulse Ox 95 95 Oxygen Delivery Method Room Air Room Air 09/24/24 17:00 09/24/24 19:00 09/24/24 19:45 Temperature 98.7 F Temperature Source Pulse Rate 60 64 65 Respiratory Rate 20 H 15 14 Blood Pressure 126/45 H 134/60 H 122/90 H Blood Pressure Mean 68 84 100 Pulse Ox 95 94 94 Oxygen Delivery Method Positive well nourished and well developed General Appearance ED: well developed and NAD HEENT Reports moist mucous membranes Neck supple and no JVD Chest Wall inspection of chest normal and palpation of chest normal Resp normal respiratory effort and clear to auscultation bilaterally Cardio regular rate and regular rhythm GI soft to palpation, non-tender and non-distended Back/Spine no CVA tenderness Extremity normal to inspection General Extremety ED: Negative for edema or tenderness General Extremity: Negative for edema Neuro oriented x3, CN's II-XII intact bilaterally and no sensory deficits noted Sensorium / Orientation: awake and alert Motor Exam: strength 5/5 throughout Psych mental status grossly normal Heart Score History: Slightly/Non-Suspicious ECG: Nonspecific Repolarization Age: >/= 65 years Risk Factors: >/= 3 Risk Factors or History of CAD Troponin: >1 - <3 Normal Limit Score: 6 MDM MDM MDM Narrative Medical decision making narrative: Differential diagnosis includes cardiac dysrhythmia, cardiac ischemia, pneumonia, pulmonary embolism, electrolyte abnormality, musculoskeletal pain, GERD, and anxiety. EKG will be obtained to assess for cardiac dysrhythmia and cardiac ischemia. CT of the chest will be obtained to assess for pulmonary embolism, pneumonia, and pneumothorax. CBC will be obtained to assess for leukocytosis and anemia. Basic metabolic profile will be obtained to assess for electrolyte abnormality and renal function. High-sensitivity troponin will be obtained to assess for cardiac ischemia. 2-hour repeat high-sensitivity troponin will be obtained to assess for ongoing cardiac ischemia. Lab Data Attestation: I reviewed the patient's lab results. Lab results narrative: CBC was reviewed. There is a mild anemia with a hemoglobin of 11.7 and hematocrit of 35.6. Basic metabolic profile was reviewed and was within normal limits. PT with INR and PTT were reviewed and were within normal limits. Initial high-sensitivity troponin was slightly elevated at 113. 2-hour repeat high-sensitivity troponin was reviewed and was 107. This is likely still elevated from the patient's recent surgery. Labs: Laboratory Results - last 24 hr 09/24/24 09/24/24 15:40 18:15 WBC 5.3 RBC 3.87 L Hgb 11.7 L Hct 35.6 L MCV 92.0 MCH 30.2 MCHC 32.9 RDW Std Deviation 44.9 H RDW Coeff of Margareth 13.2 Plt Count 164 MPV 9.1 Immature Gran % (Auto) 0.400 Neut % (Auto) 67.3 Lymph % (Auto) 23.1 [place] % (Auto) 6.2 Eos % (Auto) 2.6 Baso % (Auto) 0.4 Absolute Neuts (auto) 3.6 Absolute Lymphs (auto) 1.23 Nucleated RBC % 0 PT 13.1 INR 1.0 APTT 26.4 Sodium 139 Potassium 3.8 Chloride 102 Carbon Dioxide 32.0 Anion Gap 5 BUN 12 Creatinine 0.96 Estim Creat Clear Calc 45.54 Est GFR (MDRD) Af Amer 74 Est GFR (MDRD) Non-Af 61 BUN/Creatinine Ratio 12.5 Glucose 105 Calcium 8.9 Troponin I High Sens 113 H 107 H Radiography Diagnostic Testing: Clinical Impression(s) from Imaging Studies Chest CTA 09/24/24 15:33 IMPRESSION: 1. No evidence of acute pulmonary artery embolus. 2. There is a mass in the deep aspect of the right breast with associated clips or calcifications perhaps related to prior biopsy. Right axillary lymphadenopathy. Findings correlate with prior PET/CT. 3. Right lower lobe atelectasis or pneumonia and trace left lower lobe airspace disease which may also be atelectasis or pneumonia. 4. Cholelithiasis. No secondary signs of acute cholecystitis. Electronically Signed: King Serrano DO at 16:53 EST , CTA of the chest was obtained. There is no evidence of pulmonary embolism or ao rtic dissection. There is a right lower lobe atelectasis or pneumonia and trace left lower lobe atelectasis versus pneumonia. This was interpreted by the radiologist and was also dependently reviewed by myself. EKG Initial EKG: Attestation: I personally reviewed and interpreted this EKG as follows: Interpretation: No Acute Injury Pattern and Paced Comments: EKG was obtained. On my independent interpretation, shows an atrial paced rhythm with a rate of 60. WI interval was prolonged at 262 ms. QRS interval was normal at 94 ms. QTc interval was slightly prolonged at 526 ms. [place] was -2. There are no acute ST or T wave changes noted. Prior EKG tracings: available for review Prior: Unchanged (06/05/2024) Treatment and Re-Evaluation :: Patient was given aspirin here. Patient felt better on reevaluation. Patient denies any further chest pain. Patient was advised of her findings. Patient was advised that her troponin was slightly elevated but improved on repeat testing. Patient was advised that this is most likely from her recent surgery. Patient states she has an appointment with her emergency communications officer in 3 days. Patient was given a dose of Augmentin here. Patient was given a prescription for Augmentin. Patient was instructed to return if worse in any way. Patient and family understood and were agreeable with the plan. All questions were answered. Discharge Plan Triage Chief Complaint: Upper Extremity Injury ED Provider: Jesus Luu Dx/Rx/DC Orders Clinical Impression: Pneumonia, Chest pain Instructions: ED Pneumonia (Adult) Prescriptions: New amoxicillin-pot clavulanate 875-125 mg tablet 875 mg PO Q12H Qty: 20 0RF No Action aspirin 81 mg tablet,chewable 81 mg PO DAILY melatonin 10 mg capsule 10 mg PO HS PRN (Reason: sleep) calcium carbonate 600 mg calcium (1,500 mg) tablet 600 mg PO BID rosuvastatin 20 mg tablet 20 mg PO DAILY Qty: 90 3RF Rx Instructions: TAKE 1 TABLET BY MOUTH ONCE DAILY pantoprazole 40 mg tablet,delayed release (DR/EC) 40 mg PO QDAY Qty: 90 3RF trazodone 100 mg tablet 100 mg PO QHS PRN (Reason: insomnia) Qty: 90 1RF sertraline 100 mg tablet 100 mg PO QDAY Qty: 90 2RF lisinopril 40 mg tablet 40 mg PO QDAY Qty: 90 3RF nitroglycerin 0.4 mg tablet, sublingual See Rx Instructions .ROUTE .COMPLEX Qty: 75 1RF Dose Instruction: DISSOLVE 1 TABLET UNDER TONGUE EVERY 5 MINUTES NEEDED FOR CHEST PAIN Rx Instructions: DISSOLVE 1 TABLET UNDER TONGUE EVERY 5 MINUTES NEEDED FOR CHEST PAIN amlodipine 10 mg tablet 10 mg PO QDAY Qty: 90 3RF sotalol [Betapace] 120 mg tablet 120 mg PO Q12H Qty: 90 3RF cyclobenzaprine 10 mg tablet 10 mg PO BID PRN (Reason: muscle spasm) Qty: 90 0RF (DME) handicap placard See Rx Instructions .Route .MEDSUPPLY Qty: 1 0RF Rx Instructions: placard for one year olanzapine 2.5 mg tablet 2.5 mg PO QHS clopidogrel 75 mg tablet 75 mg PO DAILY Primary Care Provider: Mayra Fallon Referrals: Myara Fallon MD [Primary Care Provider] - 3-5 Days Print Language: Vietnamese Disposition Disposition: Home, Self Care Discharge Date/Time: 09/24/24 19:50
--- NOTE | 2024-09-24 15:33 | EKG12_ITS ---
Test Reason : GENERAL Blood Pressure : */* mmHG Vent. Rate : 60 BPM Atrial Rate : 60 BPM P-R Int : 262 ms QRS Dur : 94 ms QT Int : 526 ms P-R-T Axes : 70 -2 79 degrees QTcB Int : 526 ms Atrial-paced rhythm with prolonged AV conduction Prolonged QT Abnormal ECG Confirmed by NICHOLAS MURILLO, GEOVANI ([id number]), publication editor THAI LEE ([id number]) on 09/26/2024 8:04:15 AM Referred By: Confirmed By: GEOVANI PETERSON MD
--- NOTE | 2024-09-24 15:33 | CT_ITS ---
EXAM: CT ANGIOGRAPHY CHEST WITHOUT AND WITH INTRAVENOUS CONTRAST CLINICAL INDICATION: Chest pain TECHNIQUE: Helically acquired angiography images were obtained of the chest without and with intravenous contrast. This CT exam was performed using one or more of the following dose reduction techniques: automated exposure control, adjustment of the mA and/or kV according to patient size, and/or use of iterative reconstruction technique. MIP reconstructed images were created and reviewed. CONTRAST: IV 100mL Isovue-370 COMPARISON: PET/CT, 01/11/2024. FINDINGS: PULMONARY ARTERIES: No significant abnormality. Normal in caliber. No evidence of pulmonary embolism. AORTA: Atherosclerosis of the aorta and its branch vessels. Luminal irregularity without aneurysm or dissection. GREAT VESSELS OF AORTIC ARCH: No significant abnormality. Normal in caliber. No evidence of dissection. LUNGS AND PLEURAL SPACES: Right lower lobe atelectasis or pneumonia and trace left lower lobe airspace disease which may also be atelectasis or pneumonia. Likely scarring in the right anterior lung. No mass. No pleural effusion or thickening. HEART: Coronary artery calcifications. Status post CABG. Aortic valve replacement/repair. Heart size is normal. No pericardial effusion. MEDIASTINUM: No significant abnormality. No mediastinal or hilar adenopathy. Esophagus is unremarkable. No hiatal hernia. THYROID: No significant abnormality. No thyroid lesions. BONES/JOINTS: Median sternotomy. No suspicious lytic or blastic abnormality. SOFT TISSUES: There is a mass in the deep aspect of the right breast with associated clips or calcifications perhaps related to prior biopsy. LYMPH NODES: Asymmetrically enlarged right axillary lymphadenopathy. GALLBLADDER AND BILE DUCTS: Cholelithiasis. No secondary signs of acute cholecystitis. TUBES, LINES AND DEVICES: Left-sided cardiac device. Right-sided chest port. CT/CTA Chest W/WO Contrast IMPRESSION: 1. No evidence of acute pulmonary artery embolus. 2. There is a mass in the deep aspect of the right breast with associated clips or calcifications perhaps related to prior biopsy. Right axillary lymphadenopathy. Findings correlate with prior PET/CT. 3. Right lower lobe atelectasis or pneumonia and trace left lower lobe airspace disease which may also be atelectasis or pneumonia. 4. Cholelithiasis. No secondary signs of acute cholecystitis. Electronically Signed: King Serrano at 16:53 EST ,
[2024-09-24] MEDS: Aspirin 81 MG TAB.CHEW 324 MG PO (15:48)
[2024-09-24 15:50] VITALS: O2SAT 95
[2024-09-24 15:54] LABS: Absolute Lymphocyte Count 1.23 X10^3/uL (0.83-4.51); Absolute Neutrophil Count 3.6 X10^3/uL (2.0-7.7); Basophil# 0.02 X10^3/uL; Basophil% 0.4 % (0-1); Eosinophil# 0.14 X10^3/uL; Eosinophils% 2.6 % (0-5); Hematocrit 35.6 % (37-47); Hemoglobin 11.7 g/dL (12.0-15.0); Lymphocyte # 1.23 X10^3/ul (0.83-4.51); Lymphocyte % 23.1 % (19-41); Mean Corp Hgb Conc 32.9 g/dL (32-36); Mean Corpuscular Hgb 30.2 pg (27.0-32.0); Mean Platelet Vol. 9.1 fl (6.2-12.0); Monocyte# 0.33 X10^3/uL; Monocyte% 6.2 % (0-10); NRBC Flagged by Analyzer 0 % (0-5); Neutrophil # 3.59 X10^3/uL (2.7-7.7); Neutrophil % 67.3 % (47-70); Platelet Count 164 K/mm3 (150-450); RBC Distribution Width CV 13.2 % (11.6-14.6); RBC Distribution Width SD 44.9 fl (35.1-43.9); Red Blood Count 3.87 M/mm3 (4.2-5.4); White Blood Count 5.3 K/mm3 (4.4-11.0)
[2024-09-24 16:00] VITALS: BP 128/89; PULSE 80; RESP 16
[2024-09-24 16:00] LABS: Prothrombin Time (Protime)PT. 13.1 SECONDS (11.7-14.9)
[2024-09-24 16:01] LABS: Partial Thromboplast Time 26.4 Seconds (24.1-36.2)
[2024-09-24 16:11] LABS: Anion Gap 5 (5-15); BUN 12 mg/dL (7-18); BUN/Creat Ratio 12.5 RATIO (10-20); Calcium,Total 8.9 mg/dL (8.5-10.1); Chloride 102 mmol/L (98-107); Creatinine, Serum 0.96 mg/dL (0.55-1.02); EST Glomerular Filtration Rate 61 mL/min (>60); Est Glom Filt Rate - Afr Amer 74 mL/min (>60); Estimated Creatinine Clearance 45.54 ml/min; Glucose 105 mg/dL (74-106); Potassium 3.8 mmol/L (3.5-5.1); Sodium Level 139 mmol/L (136-145); Troponin-I HS (w/2H Reflex) 113 pg/mL (3.0-54.0)
[2024-09-24 17:00] VITALS: BP 126/45; PULSE 60; RESP 20; O2SAT 95
[2024-09-24 17:48] LABS: Reflex Troponin-HS? (from REC) Y
[2024-09-24 18:42] LABS: Troponin-I HS 107 pg/mL (3.0-54.0)
[2024-09-24 19:00] VITALS: BP 134/60; PULSE 64; RESP 15; O2SAT 94
[2024-09-24] MEDS: Amox/Clavulanate 875 MG Tablet PO (19:38)
[2024-09-24 19:45] VITALS: BP 122/90; PULSE 65; RESP 14; TEMP 37.1; O2SAT 94
== END 2024-09-24 19:50 | disposition home or self-care (01) ==
PROVIDERS: Emergency Provider Emergency Medicine; PCP Internal Medicine; Visit Provider Emergency Medicine
DX: J18.9 Pneumonia, unspecified organism (principal); I25.10 Atherosclerotic heart disease of native coronary artery without angina pectoris; R07.9 Chest pain, unspecified; I10 Essential (primary) hypertension; E78.5 Hyperlipidemia, unspecified; R79.89 Other specified abnormal findings of blood chemistry; Z87.891 Personal history of nicotine dependence; Z95.1 Presence of aortocoronary bypass graft; Z95.2 Presence of prosthetic heart valve; I25.2 Old myocardial infarction; Z95.810 Presence of automatic (implantable) cardiac defibrillator; Z79.82 Long term (current) use of aspirin; Z79.02 Long term (current) use of antithrombotics/antiplatelets; Z79.899 Other long term (current) drug therapy
CPT/HCPCS: 71275; 80048; 84484; 85025; 85610; 85730; 93005; 99285; Q9967; A4216

== ENCOUNTER 2024-12-08 17:01 | Inpatient (IN) | payer MEDICARE, MEDICAID, SELFPAY ==
[2024-12-08 17:03] VITALS: BP 108/57; PULSE 92; RESP 16; TEMP 36.6; O2SAT 93
--- NOTE | 2024-12-08 20:10 | EKG12_ITS ---
Test Reason : DYSRHYTHMIA Blood Pressure : */* mmHG Vent. Rate : 77 BPM Atrial Rate : 77 BPM P-R Int : 218 ms QRS Dur : 98 ms QT Int : 426 ms P-R-T Axes : 14 14 90 degrees QTcB Int : 482 ms Sinus rhythm with 1st degree A-V block Septal infarct , age undetermined Abnormal ECG Confirmed by Ellis Jung ([id number]), web content editor TIM HENRIQUEZ ([id number]) on 12/11/2024 9:56:36 AM Referred By: Confirmed By: Ellis Jung
--- NOTE | 2024-12-08 20:11 | CT_ITS ---
PROCEDURE: ABDOMEN/PELVIS W IV CONT ONLY REASON FOR EXAM: 69-year-old female, nausea and vomiting, diarrhea. TECHNIQUE: Abdomen and pelvis CT with intravenous contrast. No oral contrast. IV CONTRAST: Isovue-300 COMPARISON: CTA chest 12 824, CT abdomen pelvis 06/05/2024. FINDINGS: Lung bases: Prior median sternotomy, CABG and aortic valve replacement. Partially visualized cardiac pacer wires. The heart is normal in size. Bibasilar atelectasis. Liver: The liver is normal in size without focal hepatic mass. The major portal veins are patent. No biliary ductal dilation. Gallbladder: Stable cholelithiasis without gallbladder wall thickening or pericholecystic fluid. Spleen: Unremarkable. Pancreas: Unremarkable. Adrenals: Unremarkable. Kidneys: No hydronephrosis or nephrolithiasis. Incidental duplicated left renal collecting system. Bladder: Decompressed. Reproductive Organs: Prior hysterectomy. Bowel: Small hiatal hernia. The bowel loops are nondilated. Mild fluid distention of the large bowel loops. No ascites or free air. Normal appendix. Lymph nodes: No suspicious lymph node enlargement. Vasculature: Moderate mixed atherosclerotic plaque throughout the aortoiliac vessels. Bones/soft tissues: Chronic bilateral rib fracture deformities. New sclerotic lesion within the posterior superior iliac crest. Surgical clips/calcifications within the visualized right lower breast. CT/Abdomen/Pelvis W IV Cont ONLY IMPRESSION: 1. No acute abdominopelvic finding. 2. Mild fluid distention of the large bowel loops, which can be seen with enter itis. 3. New sclerotic lesion within the posterior superior iliac crest, likely a milka ign bone island, however given partial visualization of surgical clips/calcifications within the visualized right lowe r breast, correlation with history of breast cancer and prior bone imaging is recommended to evaluate for stability. One or more dose reduction techniques were used (e.g., Automated exposure contr ol, adjustment of the mA and/or kV according to patient size, use of iterative reconstruction technique). Reading Location: [id number]
[2024-12-08 20:15] VITALS: PULSE 78; RESP 23; O2SAT 94
--- NOTE | 2024-12-08 20:36 | EX.ED.DYSGE1 ---
HPI History of Present Illness Chief Complaint: General Illness Narrative Narrative: Chief complaint and HPI: Nausea, vomiting, diarrhea. 69-year-old female with history of metastatic breast cancer on chemotherapy, HTN, CAD on Plavix, HLD presents for evaluation of nausea, vomiting, diarrhea. Patient states that she follows with Dr. Davey with hematology/oncology. She states that she receives chemo every 2 weeks and then is off a week. She does not know what chemotherapy she receives. She states that her second week of chemotherapy was Wednesday and now she will be off for a week. She states since Wednesday she has had nausea, vomiting, diarrhea. All nonbloody. She denies any fever, chills, URI symptoms, chest pain, shortness of breath, abdominal pain, dysuria. She denies any sick contacts. Patient states that she has had decreased p.o. intake secondary to her symptoms. These are not typical chemotherapy symptoms for her. Review of systems: See HPI Medications: As listed on the chart Allergies: As listed on the chart PFSH: Per chart Vital signs: As listed on the chart. Reviewed. Physical exam: Gen: A&O x3, NAD Head: Normocephalic, atraumatic Eyes: No sclera icterus, conjunctiva clear ENT: Dry mucous membranes Neck: Trachea midline, No JVD CV: RRR, no murmurs, no peripheral edema Resp: Lungs CTA BL, no w/r/c GI: Abd soft, non-distended, non-tender, no r/r/g Musc: Full ROM, no deformity Skin: Warm, dry Neuro: Alert, oriented, grossly intact, sensation intact Psych: Cooperative, appropriate mood and affect [facility] Medical History Nontraumatic psoas hematoma Hyperbilirubinemia Severe anemia Non-ST elevation IN (NSTEMI) Rhabdomyolysis Thrombocytopenia CAD (coronary artery disease) Chronic pain Atrial fibrillation ICD (implantable cardioverter-defibrillator) in place Urinary urgency Metastasis to bone Regional lymph node metastasis present Invasive ductal carcinoma of breast Aortic valve regurgitation due to aortic dilation Breast nodule Abnormal findings on imaging test Breast mass, right Skin mole Left knee pain Anxiety and depression Diarrhea Major depressive disorder, recurrent Health care maintenance Flu vaccine need Skin tags, multiple acquired Left hand pain History of cyst of breast History of stroke Heart valve problem GERD (gastroesophageal reflux disease) Hyperlipemia Hypertension Home Medications ?Medication ?Instructions ?Recorded ?Last Taken ?Type aspirin 81 mg chewable tablet 81 mg PO DAILY 11/23/17 06/03/24 History melatonin 10 mg capsule 10 mg PO HS PRN sleep 11/23/17 06/03/24 History calcium carbonate 600 mg PO BID 06/30/18 06/03/24 History amlodipine 10 mg tablet 10 mg PO QDAY #90 tabs 05/11/24 06/03/24 Rx nitroglycerin 0.4 mg sublingual See Rx Instructions .Route 05/11/24 Unknown Rx tablet .COMPLEX #75 tabs rosuvastatin 20 mg tablet 20 mg PO DAILY #90 tabs 05/11/24 06/03/24 Rx sertraline 100 mg tablet 100 mg PO QDAY #90 tabs 05/11/24 06/03/24 Rx trazodone 100 mg tablet 100 mg PO QHS PRN insomnia #90 tabs 05/11/24 06/03/24 Rx handicap placard #1 ea 09/01/24 Unknown Rx cholecalciferol (vitamin D3) 50 50 mcg PO DAILY 12/08/24 Unknown History mcg (2,000 unit) capsule (Vitamin D3) lisinopril 5 mg tablet 5 mg PO DAILY 12/08/24 Unknown History pantoprazole 40 mg tablet,delayed 40 mg PO BID 12/08/24 Unknown History release sotalol 80 mg tablet (Betapace) 80 mg PO DAILY 12/08/24 Unknown History Allergy/AdvReac Type Severity Reaction Status Date / Time No Known Allergies Allergy Verified 12/08/24 17:05 Family History Mother CVA (cerebral vascular accident) Breast cancer, Onset Age: 35 Father Heart disease Sister Breast cancer, Onset Age: 50 Heart disease Hypertension Cancer lung Surgical History History of coronary artery bypass graft x 3 History of hysterectomy Cardiac defibrillator in place 4 stents cardiac rythem pacemaker triple bypass, valve replacement, nad aneurysm repair History of tonsillectomy Social History Smoking Status: Former smoker Tobacco: How many years used: 20 how long ago did patient quit smokin alcohol intake: never substance use type: does not use what type of physical activity do you participate in: none EXAM Physical Exam Const Vital Signs: 12/08/24 17:03 12/08/24 20:15 12/08/24 20:15 Temperature 98 F Temperature Source Oral Pulse Rate 92 78 Respiratory Rate 16 23 H Respiratory Effort Normal Respiratory Pattern Normal Blood Pressure 108/57 L Blood Pressure Mean 74 Pulse Ox 93 94 Oxygen Delivery Method Room Air Room Air 12/08/24 22:30 12/08/24 22:35 12/08/24 23:11 Temperature 98.4 F 98.5 F Temperature Source Oral Pulse Rate 69 71 76 Respiratory Rate 16 20 H 21 H Respiratory Effort Respiratory Pattern Blood Pressure 90/44 L 93/50 L 117/62 Blood Pressure Mean 59 64 80 Pulse Ox 93 91 94 Oxygen Delivery Method Room Air Room Air 12/08/24 23:39 12/09/24 00:00 Temperature 98.4 F 98.5 F Temperature Source Oral Oral Pulse Rate 78 74 Respiratory Rate 16 16 Respiratory Effort Respiratory Pattern Blood Pressure 101/50 L 105/50 L Blood Pressure Mean 67 68 Pulse Ox 93 94 Oxygen Delivery Method Room Air Room Air MDM MDM MDM Narrative Medical decision making narrative: 69-year-old female with history of metastatic breast cancer on chemotherapy, HTN, CAD on Plavix, HLD presents for evaluation of nausea, vomiting, diarrhea. Differential diagnosis includes but is not limited to dehydration, GARRICK, electrolyte abnormality, viral illness, UTI, intra-abdominal infection, chemotherapy side effect. On presentation, vitals are stable. Patient appears clinically dry. NS bolus and Zofran ordered for symptoms. Infectious workup ordered including stool studies. Although patient is not having any abdominal pain she is immunocompromised given her chemotherapy and therefore may not present with typical infectious symptoms of the abdomen therefore CT abdomen pelvis ordered. EKG and chest x-ray reviewed see below. CBC without leukocytosis or leukopenia. Patient has chronic anemia. Patient has thrombocytopenia with a platelet count of 27. No bleeding at this time. Platelets transfusion not needed. Her last platelet count in September was 164. She has had thrombocytopenia in the past due to her chemotherapy. CMP shows dehydration. Patient has hyponatremia of 129. Previous sodium in September was 139. On chart review patient has had hyponatremia in the past. She has mild hypokalemia of 3.4. Renal insufficiency with creatinine of 1.19. Creatinine Ramone was 0.96. No transaminitis. Lactic acid unremarkable. Lipase unremarkable. Troponin elevated at 56. Patient not having any chest pain. No ischemic changes on EKG. On chart review patient's baseline is in the 100s. UA positive for blood but negative for UTI. CT abdomen pelvis shows mild fluid distention of the large bowel loops which can be seen with enteritis. C. difficile negative. Other stool studies pending. COVID, flu, RSV negative. I do not suspect bacterial infection at this time. I suspect that her symptoms are likely secondary to viral etiology versus chemotherapy. Patient will warrant admission. Patient was updated of all the results and confirmed understanding the plan. Patient discussed with hospitalist who accepted admission. EKG: Interpreted by me/EM physician: EKG shows normal sinus rhythm with first-degree AV block. No acute ischemic changes. Heart rate 77 Diagnostic: Interpreted by me/EM physician: Without cardiomegaly, pneumothorax, pneumonia, effusion. Patient's right IJ chest port is in correct placement. Previous surgeries visualized. Impression: 1. Enteritis-viral versus chemotherapy-induced 2. Dehydration secondary to #1 3. Hyponatremia 4. Hypokalemia 5. Renal insufficiency 6. Thrombocytopenia 7. Chronic anemia Lab Data Labs: Laboratory Results - last 24 hr 12/08/24 12/08/24 20:34 23:00 WBC 6.5 RBC 3.05 L Hgb 9.0 L Hct 26.5 L MCV 86.9 MCH 29.5 MCHC 34.0 RDW Std Deviation 42.2 RDW Coeff of Marg[place] 13.3 Plt Count 27 L* MPV 9.9 Immature Gran % (Auto) 1.700 H Neut % (Auto) 90.3 H Lymph % (Auto) 7.3 L [place] % (Auto) 0.5 Eos % (Auto) 0.0 Baso % (Auto) 0.2 Absolute Neuts (auto) 5.9 Absolute Lymphs (auto) 0.48 L Nucleated RBC % 0 Differential Comment SEE COMMENTS Diff Path Review May foll Platelet Estimate MKD DEC RBC Morphology NORM C+C Hypochromasia 1+ Anisocytosis RARE Sodium 129 L Potassium 3.4 L Chloride 95 L Carbon Dioxide 25.0 Anion Gap 9 BUN 21 H Creatinine 1.19 H Est GFR (MDRD) Af Amer 58 L Est GFR (MDRD) Non-Af 48 L BUN/Creatinine Ratio 17.6 Glucose 90 Lactic Acid 0.7 Calcium 8.5 Phosphorus 3.9 Magnesium 2.1 Total Bilirubin 1.30 H AST 16 ALT 22 Alkaline Phosphatase 105 Troponin I High Sens 56 H Total Protein 6.7 Albumin 3.0 L Globulin 3.7 Albumin/Globulin Ratio 0.8 L Lipase 44 L Urine Color Yellow Urine Clarity Clear Urine pH 6.0 Ur Specific [place] 1.010 Urine Protein 30 H Urine Glucose (UA) Normal Urine Ketones Negative Urine Occult Blood 10 H Urine Nitrite Negative Urine Bilirubin Negative Urine Urobilinogen Normal Ur Leukocyte Esterase Negative Urine RBC 0 SEEN Urine WBC 0 SEEN Ur Squamous Epith Cells 0 SEEN Urine Bacteria 0 SEEN Urine Mucus 0 SEEN Radiography Diagnostic Testing: Clinical Impression(s) from Imaging Studies Abdomen/Pelvis CT 12/08/24 20:11 IMPRESSION: 1. No acute abdominopelvic finding. 2. Mild fluid distention of the large bowel loops, which can be seen with enteritis. 3. New sclerotic lesion within the posterior superior iliac crest, likely a benign bone island, however given partial visualization of surgical clips/calcifications within the visualized right lower breast, correlation with history of breast cancer and prior bone imaging is recommended to evaluate for stability. One or more dose reduction techniques were used (e.g., Automated exposure control, adjustment of the mA and/or kV according to patient size, use of iterative reconstruction technique). Reading Location: [facility] Chest X-Ray 12/08/24 21:20 IMPRESSION: NO SIGNIFICANT CHANGE SINCE THE PRIOR EXAM. Reading Location: [facility] Discharge Plan Disposition Disposition: Acute Care Hospital [facility] Discharge Date/Time: 12/09/24 00:17
[2024-12-08 20:47] LABS: Absolute Lymphocyte Count 0.48 X10^3/uL (0.83-4.51); Absolute Neutrophil Count 5.9 X10^3/uL (2.0-7.7); Basophil# 0.01 X10^3/uL; Basophil% 0.2 % (0-1); Hematocrit 26.5 % (37-47); Lymphocyte # 0.48 X10^3/ul (0.83-4.51); Lymphocyte % 7.3 % (19-41); Mean Corpuscular Hgb 29.5 pg (27.0-32.0); Mean Corpuscular Volume 86.9 fL (81-99); Mean Platelet Vol. 9.9 fl (6.2-12.0); Monocyte# 0.03 X10^3/uL; Monocyte% 0.5 % (0-10); NRBC Flagged by Analyzer 0 % (0-5); Neutrophil # 5.91 X10^3/uL (2.7-7.7); Neutrophil % 90.3 % (47-70); POSITIVE COUNT YES; POSITIVE DIFFERENTIAL YES; RBC Distribution Width CV 13.3 % (11.6-14.6); RBC Distribution Width SD 42.2 fl (35.1-43.9); Red Blood Count 3.05 M/mm3 (4.2-5.4); White Blood Count 6.5 K/mm3 (4.4-11.0)
[2024-12-08] MEDS: Ondansetron 4 MG/2 ML Vial IV (20:51)
[2024-12-08] MEDS: 0.9% Normal Saline (1000mL) 1,000 ML 1000 ML IV (20:51)
[2024-12-08 20:56] LABS: Differential Indicated SCAN CRITERIA MET; Platelet Count 27 K/mm3 (150-450)
[2024-12-08 21:07] LABS: ALB/GLOB Ratio 0.8 RATIO (0.9-2.4); AST(SGOT) 16 U/L (15-37); Alanine Aminotransfer ALT/SGPT 22 U/L (13-56); Alkaline Phosphatase 105 U/L (45-117); Anion Gap 9 (5-15); BUN 21 mg/dL (7-18); BUN/Creat Ratio 17.6 RATIO (10-20); Calcium,Total 8.5 mg/dL (8.5-10.1); Chloride 95 mmol/L (98-107); Creatinine, Serum 1.19 mg/dL (0.55-1.02); EST Glomerular Filtration Rate 48 mL/min (>60); Est Glom Filt Rate - Afr Amer 58 mL/min (>60); Globulin 3.7 g/dL (2.2-4.2); Glucose 90 mg/dL (74-106); Lipase 44 U/L (73-393); Potassium 3.4 mmol/L (3.5-5.1); Protein, Total 6.7 g/dL (6.4-8.2); Sodium Level 129 mmol/L (136-145); Troponin-I HS 56 pg/mL (3.0-54.0)
--- NOTE | 2024-12-08 21:20 | RAD_ITS ---
PROCEDURE: CHEST PA AND LATERAL REASON FOR EXAM: 69-year-old female, nausea and vomiting. Currently on chemotherapy. TECHNIQUE: Frontal and lateral views of the chest. COMPARISON: CTA chest 09/24/2024. FINDINGS: Right IJ chest port with tip terminating in the right atrium. Prior median sternotomy, aortic valve replacement and left chest wall ICD. The heart size is normal. The mediastinal contour is unremarkable. Stable right middle lobe atelectasis/volume loss, compatible with radiation fibrosis. No pleural effusion or pneumothorax. Degenerative changes are identified within the thoracic spine. RAD/Chest PA and Lateral IMPRESSION: NO SIGNIFICANT CHANGE SINCE THE PRIOR EXAM. Reading Location: [id number]
[2024-12-08 21:27] LABS: Lactic Acid 0.7 mmol/L (0.4-1.9)
[2024-12-08 21:31] LABS: Anisocytosis RARE; Differential Comment SEE COMMENTS; Hypochromasia 1+; Platelet Estimate MKD DEC (ADEQ); Red Cell Morphology NORM C+C NORMAL (NORM C&C)
[2024-12-08 22:30] VITALS: BP 90/44; PULSE 69; RESP 16; O2SAT 93
[2024-12-08 22:35] VITALS: BP 93/50; PULSE 71; RESP 20; TEMP 36.9; O2SAT 91
[2024-12-08 23:11] VITALS: BP 117/62; PULSE 76; RESP 21; TEMP 36.9; O2SAT 94
--- NOTE | 2024-12-08 23:11 | PCM.HP.STD ---
HPI - General General Date of Admission: 12/08/24 Date of Service: 12/08/24 Chief Complaint: N/V/D HPI Narrative The patient is a 69-year-old female with past medical history CAD status post CABG x 3, valvular heart disease status post AV replacement, anxiety and depression, hypertension, hyperlipidemia, GERD, history CVA, chronic anemia, intermittent chronic thrombocytopenia related with chemotherapy, CKD stage III unclear subtype, invasive ductal breast cancer with metastases to lymph nodes and bone, cardiac arrhythmia with suspected PAF, former tobacco use who presents to the [facility] ED on 12/08/2024 with history of persistent nausea, emesis and diarrhea on continued recent chemotherapy following with hematology/oncology Dr. Davey noted that she has chemotherapy every 2 weeks and then is off for another week but unclear specific type with her second week of chemotherapy the Wednesday prior to current presentation and since then persistent nausea, emesis and diarrhea noted to be nonbloody with no recent URI type symptoms or fever or chills nor any associated abdominal pain, dysuria but given ongoing and persistent with poor oral intake prompted ED evaluation to be cautious. She denies this having occurred previously with her chemotherapy. Workup in the ED included T98, heart rate 92, BP 108/57, respiratory rate 16, 93% on room air with most recent repeat vitals T98.4, heart rate 71, BP 93/50, respiratory rate 20, 91% room air, CBC with WC 6.5, hemoglobin 9, MCV 86.9, platelet 27 with increased immature granulocytes with lymphopenia, CMP with sodium 129, potassium 3.4, chloride 95, BUN/creatinine 21/1.19, GFR 48, lactic acid 0.7, T. bili 1.30 otherwise hepatic profile not marked appearing, lipase 44, troponin initial 56 with chronically elevated troponins noted with last 09/24/2024 troponin 107 at that time, chest x-ray with evidence of a right IJ port with the tip terminating in the right atrium, evidence prior median sternotomy, AV replacement and left chest wall ICD in place with stable right middle lobe atelectasis/volume loss compatible with radiation fibrosis with no acute findings noted, CT abdomen and pelvis with IV contrast only with no acute abdominal pelvic findings, mild fluid distention of the large bowel possibly seen with enteritis, new sclerotic lesion within the posterior superior iliac crest likely a benign bone island however given visualized surgical clip/calcifications within the right lower breast radiologist recommended correlation with history of breast cancer and prior bone imaging to evaluate for stability. In the ED patient ministered 1 L normal saline as well as Zofran 4 mg IV x 1. PFSH Medical History Nontraumatic psoas hematoma Hyperbilirubinemia Severe anemia Non-ST elevation MA (NSTEMI) Rhabdomyolysis Thrombocytopenia CAD (coronary artery disease) Chronic pain Atrial fibrillation ICD (implantable cardioverter-defibrillator) in place Urinary urgency Metastasis to bone Regional lymph node metastasis present Invasive ductal carcinoma of breast Aortic valve regurgitation due to aortic dilation Breast nodule Abnormal findings on imaging test Breast mass, right Skin mole Left knee pain Anxiety and depression Diarrhea Major depressive disorder, recurrent Health care maintenance Flu vaccine need Skin tags, multiple acquired Left hand pain History of cyst of breast History of stroke Heart valve problem GERD (gastroesophageal reflux disease) Hyperlipemia Hypertension Home Medications ?Medication ?Instructions ?Recorded ?Last Taken ?Type aspirin 81 mg chewable tablet 81 mg PO DAILY 11/23/17 06/03/24 History melatonin 10 mg capsule 10 mg PO HS PRN sleep 11/23/17 06/03/24 History calcium carbonate 600 mg PO BID 06/30/18 06/03/24 History amlodipine 10 mg tablet 10 mg PO QDAY #90 tabs 05/11/24 06/03/24 Rx nitroglycerin 0.4 mg sublingual See Rx Instructions .Route 05/11/24 Unknown Rx tablet .COMPLEX #75 tabs rosuvastatin 20 mg tablet 20 mg PO DAILY #90 tabs 05/11/24 06/03/24 Rx sertraline 100 mg tablet 100 mg PO QDAY #90 tabs 05/11/24 06/03/24 Rx trazodone 100 mg tablet 100 mg PO QHS PRN insomnia #90 tabs 05/11/24 06/03/24 Rx handicap placard #1 ea 09/01/24 Unknown Rx cholecalciferol (vitamin D3) 50 50 mcg PO DAILY 12/08/24 Unknown History mcg (2,000 unit) capsule (Vitamin D3) lisinopril 5 mg tablet 5 mg PO DAILY 12/08/24 Unknown History pantoprazole 40 mg tablet,delayed 40 mg PO BID 12/08/24 Unknown History release sotalol 80 mg tablet (Betapace) 80 mg PO DAILY 12/08/24 Unknown History Allergy/AdvReac Type Severity Reaction Status Date / Time No Known Allergies Allergy Verified 12/08/24 17:05 Family History Mother CVA (cerebral vascular accident) Breast cancer, Onset Age: 35 Father Heart disease Sister Breast cancer, Onset Age: 50 Heart disease Hypertension Cancer lung Surgical History History of coronary artery bypass graft x 3 History of hysterectomy Cardiac defibrillator in place 4 stents cardiac rythem pacemaker triple bypass, valve replacement, nad aneurysm repair History of tonsillectomy Social History (Updated 12/09/24 @ 02:[address] Tere Pirce MD) household members: none Smoking Status: Former smoker Tobacco: How many years used: 20 how long ago did patient quit smokin alcohol intake: never substance use type: does not use what type of physical activity do you participate in: none ROS ROS Narrative Admission Review of Systems: CONSTITUTIONAL: No weight loss, fever, chills, + weakness or fatigue. HEENT: Eyes: No visual loss, blurred vision, double vision or yellow sclerae. Ears, Nose, Throat: No hearing loss, sneezing, congestion, runny nose or sore throat. SKIN: No rash or itching, lesions, wounds. CARDIOVASCULAR: No chest pain, chest pressure or chest discomfort, palpitations, edema, orthopnea, syncopal events. RESPIRATORY: No shortness of breath, cough or sputum, wheezing, hemoptysis. GASTROINTESTINAL: + Significantly decreased appetite/anorexia, nausea, vomiting, diarrhea, occasional abdominal cramping. No abdominal pain, melena, BRBPR. GENITOURINARY: No dysuria, frequency, urgency or retention. NEUROLOGICAL: No headache, dizziness, syncope, paralysis, ataxia, numbness or tingling in the extremities, focal weakness, change in bowel or bladder control, seizure. MUSCULOSKELETAL: + muscle, back pain, joint pain or stiffness. HEMATOLOGIC: + Chronic anemia, easy bleeding/bruising. LYMPHATICS: No enlarged nodes. No history of splenectomy. PSYCHIATRIC: + History of anxiety and depression. ENDOCRINOLOGIC: No reports of sweating, cold or heat intolerance. No polyuria or polydipsia. ALLERGIES: No history of asthma, hives, eczema or rhinitis. Vital Signs Vital Signs Vital Signs: 12/08/24 17:03 12/08/24 20:15 12/08/24 20:15 Temperature 98 F Temperature Source Oral Pulse Rate 92 78 Respiratory Rate 16 23 H Respiratory Effort Normal Respiratory Pattern Normal Blood Pressure 108/57 L Blood Pressure Mean 74 Pulse Ox 93 94 Oxygen Delivery Method Room Air Room Air 12/08/24 22:30 12/08/24 22:35 Temperature 98.4 F Temperature Source Oral Pulse Rate 69 71 Respiratory Rate 16 20 H Respiratory Effort Respiratory Pattern Blood Pressure 90/44 L 93/50 L Blood Pressure Mean 59 64 Pulse Ox 93 91 Oxygen Delivery Method Room Air Room Air Physical Exam Narrative Physical Examination: General: Awake, alert, oriented x 3 and cooperative, seated upright in the ED bed, fatigued appearing. Skin: Normal color, normal turgor, no icterus, no cyanosis except occasional stage ecchymoses, abrasions. HEENT: AT/NC, EOMI, PERRLA, dry MM, no carotid bruits or JVD noted. Lungs: Diminished, greater bases, proper effort, no rales, ronchi or wheezing. Heart: Regular rate and rhythm; no gallop, rub audible, + SM. Abdomen: Soft, overweight, NTTP, no marked distention, hyperactive BS, no HSM. Extremities: No cyanosis, clubbing, or edema. Neurological: Patient awake, alert, oriented as noted,cognitive function intact; pupils equally reactive to light and accommodation, cranial nerves gross normal, moving all 4 extremities, no focal deficits, strength moderately globally decreased Psychiatric: Affect appears flat, fatigued, no acute evidence of depressive or anxiety feeling but does have underlying history s. Results Lab / Micro Data 12/08/24 20:34 12/08/24 20:34 Labs: Laboratory Results - last 24 hr 12/08/24 20:34: WBC 6.5, RBC 3.05 L, Hgb 9.0 L, Hct 26.5 L, MCV 86.9, MCH 29.5, MCHC 34.0, RDW Std Deviation 42.2, RDW Coeff of Margareth 13.3, Plt Count 27 L*, MPV 9.9, Immature Gran % (Auto) 1.700 H, Neut % (Auto) 90.3 H, Lymph % (Auto) 7.3 L, [place] % (Auto) 0.5, Eos % (Auto) 0.0, Baso % (Auto) 0.2, Absolute Neuts (auto) 5.9, Absolute Lymphs (auto) 0.48 L, Nucleated RBC % 0, Differential Comment SEE COMMENTS, Diff Path Review May foll, Platelet Estimate MKD DEC, RBC Morphology NORM C+C, Hypochromasia 1+, Anisocytosis RARE, Sodium 129 L, Potassium 3.4 L, Chloride 95 L, Carbon Dioxide 25.0, Anion Gap 9, BUN 21 H, Creatinine 1.19 H, Est GFR (MDRD) Af Amer 58 L, Est GFR (MDRD) Non-Af 48 L, BUN/Creatinine Ratio 17.6, Glucose 90, Lactic Acid 0.7, Calcium 8.5, Total Bilirubin 1.30 H, AST 16, ALT 22, Alkaline Phosphatase 105, Troponin I High Sens 56 H, Total Protein 6.7, Albumin 3.0 L, Globulin 3.7, Albumin/Globulin Ratio 0.8 L, Lipase 44 L Micro: Microbiology 12/08/24 21:00 Stool Clostridioides difficile (PCR) - Final 12/08/24 20:37 Mucosa - Nose SARS-CoV-2, Influenza & RSV (PCR) - Final Imaging Radiology Impression Abdomen/Pelvis CT 12/08/24 20:11 IMPRESSION: 1. No acute abdominopelvic finding. 2. Mild fluid distention of the large bowel loops, which can be seen with enteritis. 3. New sclerotic lesion within the posterior superior iliac crest, likely a benign bone island, however given partial visualization of surgical clips/calcifications within the visualized right lower breast, correlation with history of breast cancer and prior bone imaging is recommended to evaluate for stability. One or more dose reduction techniques were used (e.g., Automated exposure control, adjustment of the mA and/or kV according to patient size, use of iterative reconstruction technique). Reading Location: [facility] Chest X-Ray 12/08/24 21:20 IMPRESSION: NO SIGNIFICANT CHANGE SINCE THE PRIOR EXAM. Reading Location: [facility] Assessment & Plan Assessment/Plan (1) Gastroenteritis: PLAN: Plan The patient is a 69-year-old female with past medical history CAD status post CABG x 3, valvular heart disease status post AV replacement, anxiety and depression, hypertension, hyperlipidemia, GERD, history CVA, chronic anemia, intermittent chronic thrombocytopenia related with chemotherapy, CKD stage III unclear subtype, invasive ductal breast cancer with metastases to lymph nodes and bone, cardiac arrhythmia with suspected PAF, former tobacco use who presents to the [facility] ED on 12/08/2024 with history of persistent nausea, emesis and diarrhea on continued recent chemotherapy following with hematology/oncology Dr. Davey noted that she has chemotherapy every 2 weeks and then is off for another week but unclear specific type with her second week of chemotherapy the Wednesday prior to current presentation and since then persistent nausea, emesis and diarrhea noted to be nonbloody with no recent URI type symptoms or fever or chills nor any associated abdominal pain, dysuria but given ongoing and persistent with poor oral intake prompted ED evaluation to be cautious. #1. Persistent N/V/D, possible acute gastroenteritis however could certainly be chemotherapy induced but uncertain as she has not had this reaction prior: Will admit to medical surgical floor given stable vital signs, pending c diff, stool cx per ED request, will plan repeat a.m. CBC. Will not start antibiotics at this time given unclear source pending stool studies as may be viral gastroenteritis. Anti-emetics, pain regimen PRN. Procalcitonin requested. If enteric/C. difficile with no obvious bacterial source then will initiate loperamide. #2. Hyponatremia, hypochloremia, suspected hypovolemic associated: Admission CMP with sodium 129, chloride 95, will continue judicious hydration, repeat CMP in AM. #3. Acute thrombocytopenia on chronic: Admission platelet 27, previous to this 09/24/2024 had improved to 164, but 06/06/2024 platelets at that time had similarly been 27 likely secondary to ongoing chemotherapy, will continue to closely monitor with repeat CBC in AM. Will temporally hold aspirin therapy. #4. Hypokalemia: Admission K+ 3.4, magnesium level requested, supplementation given, repeat level in AM. #5. Invasive ductal breast cancer with metastasis to lymph nodes and bone: On chemotherapy, last chemotherapy the Wednesday prior to current presentation, will request magnesium and phosphorus levels, follow-up with oncology outpatient although earlier follow-up recommended given current presentation. #6. Chronic normocytic anemia: Admission hemoglobin 9.0, baseline has vacillated, most recent previous to this 09/24/2024 hemoglobin 11.7 at that time but ongoing chemotherapy, will continue to trend CBC. #7. Chronic indeterminate cardiac enzyme: Patient with troponin 56, EKG with sinus rhythm with first-degree AV block with no acute evidence of ischemia, chest x-ray stable with chronic changes with no acute cardiopulmonary findings, will maintain on telemetry to be cautious and given history will cycle enzymes, magnesium level requested. #8. Chronic Kidney Disease Stage III, unclear subtype per GFR trending: Admission BUN/Cr 21/1.19, GFR 48, baseline renal function primarily 0.7-0.9, repeat BMP in AM. #9. CAD: S/p CABG and PCI, temporally holding platelets given significant thrombocytopenia, maintained on sotalol given underlying history of PAF, continued on statin therapy, not on IZZY inhibitor/ARB. #10. Valvular heart disease with concurrent history aneurysm: Status post bioprosthetic AVR and aneurysmal repair, 06/05/2024 echocardiogram with EF 70%, stable appearing aortic valve apparatus. #11. Anxiety and depression: We will continue patient home trazodone and sertraline regimen. #12. History CVA: Temporarily holding antiplatelets given significant thrombocytopenia, temporally holding amlodipine as noted, continued on statin therapy. #13. Cardiac arrhythmia, PAF suspected: Status post PPM/AICD, continue sotalol, not chronically anticoagulated. #14. Hyperlipidemia: We will continue patient on statin therapy. #15. Hypertension: Will temporally hold amlodipine given low normal BP upon presentation likely with GI losses, add back once appropriate. #16. Former tobacco use: Encourage continued tobacco cessation. #17. DVT prophylaxis: SCDs. #18. CODE status: Patient AZEEM is her Sister Zuly and living will is currently in place. Discussed CODE status at length including difference between FULL code, DNR-CCA and DNR-CC status. Following discussions about the differences in these status, requested Full Code status. Advanced Care Planning Face to Face Time: 16 minutes. Charges/Coding Visit Charges Inpatient E&M: 91511 Init Hosp L3 Procedures Hospitalists Procedures: 53162 Advncd Care Plan 30 Min
[2024-12-08 23:18] LABS: Bacteria 0 SEEN /hpf (None Seen); Mucous, Urine 0 SEEN /hpf (<or=2+); Squamous Epithelial Cells - UA 0 SEEN /hpf (5-10); White Blood Cells 0 SEEN /hpf (0-5)
[2024-12-08 23:19] LABS: Color, Urine Yellow (Yellow); Glucose, Dipstick Normal (Normal); Ketone-Dipstick Negative (Negative); Leukocyte Esterase-Dipstick Negative /ul (Negative); Nitrite-Dipstick Negative (Negative); Occult Blood-Urine 10 /ul (Negative); Protein-Dipstick 30 mg/dl (Negative); Urine Bilirubin Dipstick Negative (Negative); Urine Clarity Clear (Clear); Urine Urobilinogen Normal (Normal)
[2024-12-08 23:39] VITALS: BP 101/50; PULSE 78; RESP 16; TEMP 36.9; O2SAT 93
[2024-12-08 23:41] LABS: Red Blood Cells-Urine 0 SEEN /hpf (0-5)
[2024-12-08 23:57] LABS: Magnesium 2.1 mg/dL (1.6-2.6); Phosphorus 3.9 mg/dL (2.5-4.9)
[2024-12-09] VITALS: BP 105/50; PULSE 74; RESP 16; TEMP 36.9; O2SAT 94
[2024-12-09 00:45] VITALS: BMI 25.5
[2024-12-09 01:00] VITALS: BP 108/60; PULSE 74; RESP 18; TEMP 36.7; O2SAT 95
[2024-12-09] MEDS: 0.9% Normal Saline (1000mL) 1,000 ML 100 ML IV (01:06)
[2024-12-09] MEDS: Potassium Chloride Oral Tablet 20 MEQ 40 MEQ PO (01:12)
[2024-12-09] MEDS: Menthol/Lanolin/Calamine/Znox 113 GM Tube 1 APPLIC TOPICAL ×3 (01:38→21:07)
[2024-12-09] MEDS: Pantoprazole Sodium 40 MG in 0.9% Normal Saline (100mL MB+) 100 ML 330 MG IV ×3 (01:38→21:08)
[2024-12-09 02:08] LABS: Troponin-I HS 52 pg/mL (3.0-54.0)
[2024-12-09 03:02] LABS: Procalcitonin 1.49 ng/mL (0.00-0.09)
[2024-12-09 04:00] VITALS: BP 104/58; PULSE 85; RESP 18; TEMP 36.7; O2SAT 95
[2024-12-09 04:37] LABS: Troponin-I HS 53 pg/mL (3.0-54.0)
--- NOTE | 2024-12-09 07:20 | PCM.PN.HOSP ---
Reason for Visit Reason for Visit: Diagnoses Noninfective gastroenteritis and colitis, unspecified (12/08/24) Objective Data Objective Data Vital Signs: Vital Signs Temp Pulse Resp BP Pulse Ox O2 Del Method 98.0 F 85 18 104/58 L 95 Room Air 12/09/24 04:00 12/09/24 04:00 12/09/24 04:00 12/09/24 04:00 12/09/24 04:00 12/09/24 04:00 Oxygen Delivery Method Room Air Weight: 130 lb 1.164 oz Body Mass Index (BMI) 25.5 Intake & Output: Intake and Output for Last 24 Hours 12/07/24 12/08/24 12/09/24 23:59 23:59 23:59 Intake Total 1000 / 1000 450 / 450 Output Total 50 / 50 Balance 1000 / 1000 400 / 400 Lab / Micro Data 12/09/24 07:50 12/09/24 07:50 Labs: Laboratory Results - last 24 hr 12/08/24 20:34: WBC 6.5, RBC 3.05 L, Hgb 9.0 L, Hct 26.5 L, MCV 86.9, MCH 29.5, MCHC 34.0, RDW Std Deviation 42.2, RDW Coeff of Margareth 13.3, Plt Count 27 L*, MPV 9.9, Immature Gran % (Auto) 1.700 H, Neut % (Auto) 90.3 H, Lymph % (Auto) 7.3 L, [place] % (Auto) 0.5, Eos % (Auto) 0.0, Baso % (Auto) 0.2, Absolute Neuts (auto) 5.9, Absolute Lymphs (auto) 0.48 L, Nucleated RBC % 0, Differential Comment SEE COMMENTS, Diff Path Review May foll, Platelet Estimate MKD DEC, RBC Morphology NORM C+C, Hypochromasia 1+, Anisocytosis RARE, Sodium 129 L, Potassium 3.4 L, Chloride 95 L, Carbon Dioxide 25.0, Anion Gap 9, BUN 21 H, Creatinine 1.19 H, Est GFR (MDRD) Af Amer 58 L, Est GFR (MDRD) Non-Af 48 L, BUN/Creatinine Ratio 17.6, Glucose 90, Lactic Acid 0.7, Calcium 8.5, Phosphorus 3.9, Magnesium 2.1, Total Bilirubin 1.30 H, AST 16, ALT 22, Alkaline Phosphatase 105, Troponin I High Sens 56 H, Total Protein 6.7, Albumin 3.0 L, Globulin 3.7, Albumin/Globulin Ratio 0.8 L, Lipase 44 L 12/08/24 23:00: Urine Color Yellow, Urine Clarity Clear, Urine pH 6.0, Ur Specific [place] 1.010, Urine Protein 30 H, Urine Glucose (UA) Normal, Urine Ketones Negative, Urine Occult Blood 10 H, Urine Nitrite Negative, Urine Bilirubin Negative, Urine Urobilinogen Normal, Ur Leukocyte Esterase Negative, Urine RBC 0 SEEN, Urine WBC 0 SEEN, Ur Squamous Epith Cells 0 SEEN, Urine Bacteria 0 SEEN, Urine Mucus 0 SEEN 12/09/24 01:17: Procalcitonin 1.49 H 12/09/24 01:44: Troponin I High Sens 52 12/09/24 03:50: Troponin I High Sens 53 Micro: Microbiology 12/08/24 21:00 Stool Enteric Bacteriology - Final 12/08/24 21:00 Stool Clostridioides difficile (PCR) - Final 12/08/24 20:37 Mucosa - Nose SARS-CoV-2, Influenza & RSV (PCR) - Final Radiography Diagnostic Testing: Radiology Impression Abdomen/Pelvis CT 12/08/24 20:11 IMPRESSION: 1. No acute abdominopelvic finding. 2. Mild fluid distention of the large bowel loops, which can be seen with enteritis. 3. New sclerotic lesion within the posterior superior iliac crest, likely a benign bone island, however given partial visualization of surgical clips/calcifications within the visualized right lower breast, correlation with history of breast cancer and prior bone imaging is recommended to evaluate for stability. One or more dose reduction techniques were used (e.g., Automated exposure control, adjustment of the mA and/or kV according to patient size, use of iterative reconstruction technique). Reading [facility] Chest X-Ray 12/08/24 21:20 IMPRESSION: NO SIGNIFICANT CHANGE SINCE THE PRIOR EXAM. Reading Location: [facility] Physical Exam Narrative Seen and examined. Has diarrhea. Nausea and vomiting better. No fever. She describes diarrhea as clear, watery without blood or mucus. She states she might have 2024 loose bowel movement yesterday. 3 times since morning today. Physical exam General: Alert, Oriented x3, Cooperative HEENT: Atraumatic, PERRLA, EOMI, Normocephalic Oral: Oral mucosa dry. No Gingival or Mucosal Lesions/ Ulcerations Neck: Supple, No JVD, Negative Carotid Bruits Chest wall/Lungs: Air entry diminished in bilateral lung bases. No crepitation/rhonchi Cardiovascular: Regular rate, Regular Rhythm, Normal S1, Normal S2, No M/G/R Abdomen: Bowel Sounds hyperactive, Soft, Non Tender, Non-Distended. : No dysuria. No renal angle tenderness. No suprapubic tenderness. Extremities: No edema, Capillary Refill Less than 3 Seconds Skin: No rashes, No breakdown Musculoskeletal: No Tenderness to Palpation of Joints or Extremities Neurological: Cranial nerves II-XII grossly intact, DTR 2+/4. No acute focal neurological deficit. Psych/Mental Status: Normal Affect, Appropriate. Assessment & Plan Assessment/Plan (1) Gastroenteritis: PLAN: Plan The patient is a 69-year-old female was admitted with complaint of nausea, vomiting and diarrhea after chemo on last 12/06/2024, oncologist, Dr. Davey. The patient had similar reaction after receiving chemo on previous occasion. Denies abdominal pain dysuria. Was diagnosed CA breast about 18 months ago. Her regimen is 3 chemo, first week, 1 chemo second week and off third week 1. Nausea vomiting and diarrhea, gastroenteritis/mucositis from chemotherapy: Patient is being admitted in PCU admit/patient. IV fluid rehydration. Stool for enteric pathogen panel and C. difficile negative. Continue IV fluid rehydration. #2. Hyponatremia, hypochloremia, suspected hypovolemic associated: Admission CMP with sodium 129, chloride 95, continue IV fluid normal saline. #3. Acute thrombocytopenia on chronic: Admission platelet 27, previous to this 09/24/2024 had improved to 164, but 06/06/2024 platelets 27 K, likely secondary to ongoing chemotherapy, hold platelet or other antiplatelet agent. 12/09: Platelet count 24,000. Monitor CBC. #4. Hypokalemia: Admission K+ 3.4,, repeat is normal 4.6. Serum magnesium 2.1. #5. Invasive ductal breast cancer with metastasis to lymph nodes and bone: On chemotherapy, last chemotherapy the Wednesday prior to current presentation, will request magnesium and phosphorus levels, follow-up with oncology outpatient although earlier follow-up recommended given current presentation. #6. Chronic normocytic anemia: Admission hemoglobin 9.0, repeat hemoglobin 9.1 #7. Chronic indeterminate cardiac enzyme: Patient with troponin 56, EKG with sinus rhythm with first-degree AV block with no acute evidence of ischemia, chest x-ray shows chronic changes with no acute cardiopulmonary findings, troponins are indeterminate range 53 and 57. ACS ruled out. #8. Chronic Kidney Disease Stage IIIa: Admission BUN/Cr 21/1.19, GFR 48, baseline renal function primarily 0.7-0.9, monitor kidney, Glucose low, hypoglycemia 66. Continue Accu-Cheks every 6 [place] for hypoglycemia. Patient on hypoglycemia protocol. #9. CAD: S/p CABG and PCI, temporally holding antiplatelet agent given significant thrombocytopenia, maintained on sotalol given underlying history of PAF, continued on statin therapy, not on IZZY inhibitor/ARB. #10. Valvular heart disease with concurrent history aneurysm: Status post bioprosthetic AVR and aneurysmal repair, 06/05/2024 echocardiogram with EF 70%, stable appearing aortic valve apparatus. #11. Anxiety and depression: continue patient home trazodone and sertraline regimen. #12. History CVA: Temporarily holding antiplatelets given significant thrombocytopenia, temporally holding amlodipine as noted, continued on statin therapy. #13. Cardiac arrhythmia, PAF suspected: Status post PPM/AICD, continue sotalol, not chronically anticoagulated. #14. Hyperlipidemia: continue patient on statin therapy. #15. Hypertension: Hold amlodipine #16. Former tobacco use: Encourage continued tobacco cessation. #17. DVT prophylaxis: SCDs. #18. CODE status: Patient AZEEM is her Sister Zuly and living will is currently in place. Discussed CODE status at length including difference between FULL code, DNR-CCA and DNR-CC status. Following discussions about the differences in these status, requested Full Code status. Advanced Care Planning Face to Face Time: 16 minutes. Charges/Coding Visit Charges Inpatient E&M: 15092 Subs Hosp L2
[2024-12-09 08:23] LABS: Absolute Lymphocyte Count 0.38 X10^3/uL (0.83-4.51); Absolute Neutrophil Count 4.1 X10^3/uL (2.0-7.7); Basophil# 0.01 X10^3/uL; Basophil% 0.2 % (0-1); Eosinophil# 0.01 X10^3/uL; Eosinophils% 0.2 % (0-5); Hematocrit 27.9 % (37-47); Hemoglobin 9.1 g/dL (12.0-15.0); Lymphocyte # 0.38 X10^3/ul (0.83-4.51); Lymphocyte % 8.3 % (19-41); Mean Corp Hgb Conc 32.6 g/dL (32-36); Mean Corpuscular Hgb 29.1 pg (27.0-32.0); Mean Corpuscular Volume 89.1 fL (81-99); Mean Platelet Vol. 10.3 fl (6.2-12.0); Monocyte# 0.02 X10^3/uL; Monocyte% 0.4 % (0-10); NRBC Flagged by Analyzer 0 % (0-5); Neutrophil # 4.12 X10^3/uL (2.7-7.7); Neutrophil % 89.6 % (47-70); POSITIVE COUNT YES; POSITIVE DIFFERENTIAL YES; RBC Distribution Width CV 13.4 % (11.6-14.6); RBC Distribution Width SD 44.2 fl (35.1-43.9); Red Blood Count 3.13 M/mm3 (4.2-5.4); White Blood Count 4.6 K/mm3 (4.4-11.0)
[2024-12-09 08:45] LABS: Platelet Count 24 K/mm3 (150-450)
[2024-12-09 09:02] VITALS: BP 112/59; PULSE 81; RESP 16; TEMP 36.9; O2SAT 98
[2024-12-09 09:05] LABS: ALB/GLOB Ratio 0.8 RATIO (0.9-2.4); AST(SGOT) 16 U/L (15-37); Alanine Aminotransfer ALT/SGPT 20 U/L (13-56); Alkaline Phosphatase 111 U/L (45-117); Anion Gap 10 (5-15); BUN 21 mg/dL (7-18); BUN/Creat Ratio 21.8 RATIO (10-20); Calcium,Total 8.7 mg/dL (8.5-10.1); Chloride 104 mmol/L (98-107); Creatinine, Serum 0.96 mg/dL (0.55-1.02); EST Glomerular Filtration Rate 61 mL/min (>60); Est Glom Filt Rate - Afr Amer 73 mL/min (>60); Estimated Creatinine Clearance 43.82 ml/min; Glucose 66 mg/dL (74-106); Potassium 4.6 mmol/L (3.5-5.1); Sodium Level 135 mmol/L (136-145); Troponin-I HS 57 pg/mL (3.0-54.0)
[2024-12-09] MEDS: Sertraline 100 MG Tablet PO (09:10)
[2024-12-09] MEDS: Sotalol Hydrochloride 80 MG Tablet PO (09:10)
[2024-12-09 09:21] LABS: Ovalocyte 1+; Platelet Estimate MKD DEC (ADEQ)
--- NOTE | 2024-12-09 09:41 | CASEMGMT ---
GABRIEL CM in to discuss HERNANDEZ form with patient. RN CM explained HERNANDEZ form, patient voiced understanding. Pt signed form and filed in chart. Pt provided with a copy of signed HERNANDEZ form. Patient had no further questions or concerns at this time.
--- NOTE | 2024-12-09 09:52 | CASEMGMT ---
GABRIEL CM into pt room, Pt states I at baseline and has family support. Denies any DC needs at this time.
[2024-12-09 14:17] VITALS: BP 132/60; PULSE 89; RESP 16; TEMP 36.1; O2SAT 92
[2024-12-09] MEDS: Loperamide 2 MG Capsule PO ×2 (14:22→21:08)
[2024-12-09] MEDS: Acetaminophen 325 MG Tablet 650 MG PO (14:22)
[2024-12-09] MEDS: KCl 20MEQ in D5NS 20 MEQ/1,000 ML IV.SOLN. 100 MEQ IV (16:07)
[2024-12-09 16:27] LABS: Bedside Glucose 94 mg/dL (74-106)
[2024-12-09] MEDS: Lidocaine 5% Patch 1 PATCH TOPICAL (17:33)
[2024-12-09 20:30] VITALS: BP 125/88; PULSE 87; RESP 18; TEMP 37.1; O2SAT 93
[2024-12-09] MEDS: Atorvastatin Calcium 40 MG Tablet PO (21:09)
[2024-12-09] MEDS: traZODone 100 MG Tablet PO (21:12)
[2024-12-09 23:27] LABS: Bedside Glucose 113 mg/dL (74-106)
[2024-12-10] VITALS (10 sets, daily range): BP systolic 113–144; BP diastolic 52–68; PULSE 83–114; RESP 16–18; TEMP 36.7–38.5; O2SAT 87–100; BMI 27.1
[2024-12-10] MEDS: KCl 20MEQ in D5NS 20 MEQ/1,000 ML IV.SOLN. 100 MEQ IV (02:09)
[2024-12-10] MEDS: Acetaminophen 325 MG Tablet 650 MG PO ×2 (03:17→18:05)
[2024-12-10 06:11] LABS: Bedside Glucose 147 mg/dL (74-106)
[2024-12-10] MEDS: Sertraline 100 MG Tablet PO (09:22)
[2024-12-10] MEDS: Sotalol Hydrochloride 80 MG Tablet PO (09:22)
[2024-12-10] MEDS: Pantoprazole Sodium 40 MG in 0.9% Normal Saline (100mL MB+) 100 ML 330 MG IV ×2 (09:24→22:26)
[2024-12-10] MEDS: Piperacil/Tazobactam 3.375 GM in 0.9% Normal Saline (50mL MB+) 50 ML IV ×2 (09:36→14:56)
--- NOTE | 2024-12-10 14:47 | PN.HOSP_ITS ---
Reason for Visit Reason for Visit: Diagnoses Noninfective gastroenteritis and colitis, unspecified (12/10/24) Objective Data Objective Data Vital Signs: Vital Signs Temp Pulse Resp BP Pulse Ox O2 Del Method O2 Flow Rate 98.0 F 83 16 113/52 L 94 Room Air 2 12/10/24 08:35 12/10/24 08:35 12/10/24 08:35 12/10/24 08:35 12/10/24 09:00 12/10/24 09:00 12/10/24 08:35 Oxygen Flow Rate (L/min) 2 Oxygen Delivery Method Room Air Weight: 138 lb 7.205 oz Body Mass Index (BMI) 27.1 Intake & Output: Intake and Output for Last 24 Hours 12/08/24 12/09/24 12/10/24 23:59 23:59 23:59 Intake Total 1000 / 1000 1780 / 2080 2510 / 2510 Output Total 50 / 50 Balance 1000 / 1000 1730 / 2030 2510 / 2510 Lab / Micro Data 12/09/24 07:50 12/09/24 07:50 Labs: Laboratory Results - last 24 hr 12/09/24 16:06: POC Glucose 94 12/09/24 23:10: POC Glucose 113 H 12/10/24 05:53: POC Glucose 147 H Micro: Microbiology 12/08/24 21:00 Stool Enteric Bacteriology - Final 12/08/24 21:00 Stool Clostridioides difficile (PCR) - Final 12/08/24 20:37 Mucosa - Nose SARS-CoV-2, Influenza & RSV (PCR) - Final Physical Exam Narrative Seen and examined. Patient had one-time low-grade fever 100.3 Fahrenheit. Diarrhea slightly better, she had about 6-7 times low-volume. Denies abdominal cramps. She describes diarrhea as clear, watery without blood or mucus. Physical exam General: Alert, Oriented x3, Cooperative HEENT: Atraumatic, PERRLA, EOMI, Normocephalic Oral: Oral mucosa dry. No Gingival or Mucosal Lesions/ Ulcerations Neck: Supple, No JVD, Negative Carotid Bruits Chest wall/Lungs: Air entry diminished in bilateral lung bases. No crepitation/rhonchi Cardiovascular: Regular rate, Regular Rhythm, Normal S1, Normal S2, No M/G/R Abdomen: Bowel Sounds hyperactive, Soft, Non Tender, Non-Distended. : No dysuria. No renal angle tenderness. No suprapubic tenderness. Extremities: No edema, Capillary Refill Less than 3 Seconds Skin: No rashes, No breakdown Musculoskeletal: No Tenderness to Palpation of Joints or Extremities Neurological: Cranial nerves II-XII grossly intact, DTR 2+/4. No acute focal neurological deficit. Psych/Mental Status: Normal Affect, Appropriate. Assessment & Plan Assessment/Plan (1) Gastroenteritis: PLAN: Plan The patient is a 69-year-old female was admitted with complaint of nausea, vomiting and diarrhea after chemo on last 12/06/2024, oncologist, Dr. Davey. The patient had similar reaction after receiving chemo on previous occasion. Denies abdominal pain dysuria. Was diagnosed CA breast about 18 months ago. Her regimen is 3 chemo, first week, 1 chemo second week and off third week 1. Nausea vomiting and diarrhea, gastroenteritis/mucositis from chemotherapy: Patient is being admitted in PCU admit/patient. IV fluid rehydration. Stool for enteric pathogen panel and C. difficile negative. Continue IV fluid rehydration. 12/10: Patient had fever. With suspicion of mucositis and any fever, blood culture ordered. Empirically started on IV Zosyn to cover gram-negative and anaerobes. Enteric pathogen panel and C. difficile are negative. Triple PCR for SARS-CoV-2, flu and RSV are negative #2. Hyponatremia, hypochloremia, suspected hypovolemic associated: Admission CMP with sodium 129, chloride 95, continue IV fluid normal saline. Microbiology Past 72 Hours 12/08/24 21:00 Stool Enteric Bacteriology - Final 12/08/24 21:00 Stool Clostridioides difficile (PCR) - Final 12/08/24 20:37 Mucosa - Nose SARS-CoV-2, Influenza & RSV (PCR) - Final Laboratory Results 12/09/24 16:06: POC Glucose 94 12/09/24 23:10: POC Glucose 113 H 12/10/24 05:53: POC Glucose 147 H #3. Acute thrombocytopenia on chronic: Admission platelet 27, previous to this 09/24/2024 had improved to 164, but 06/06/2024 platelets 27 K, likely secondary to ongoing chemotherapy, hold platelet or other antiplatelet agent. 12/09: Platelet count 24,000. Monitor CBC. #4. Hypokalemia: Admission K+ 3.4,, repeat is normal 4.6. Serum magnesium 2.1. Blood sugars are normal therefore [place]uc[place] discontinued. No hypoglycemia. Patient oral intake increased. #5. Invasive ductal breast cancer with metastasis to lymph nodes and bone: On chemotherapy, last chemotherapy the Wednesday prior to current presentation, will request magnesium and phosphorus levels, follow-up with oncology outpatient although earlier follow-up recommended given current presentation. #6. Chronic normocytic anemia: Admission hemoglobin 9.0, repeat hemoglobin 9.1 #7. Chronic indeterminate cardiac enzyme: Patient with troponin 56, EKG with sinus rhythm with first-degree AV block with no acute evidence of ischemia, chest x-ray shows chronic changes with no acute cardiopulmonary findings, troponins are indeterminate range 53 and 57. ACS ruled out. #8. Chronic Kidney Disease Stage IIIa: Admission BUN/Cr 21/1.19, GFR 48, baseline renal function primarily 0.7-0.9, monitor kidney, Glucose low, hypoglycemia 66. Continue Accu-Cheks every 6 [place] for hypoglycemia. Patient on hypoglycemia protocol. #9. CAD: S/p CABG and PCI, temporally holding antiplatelet agent given significant thrombocytopenia, maintained on sotalol given underlying history of PAF, continued on statin therapy, not on IZZY inhibitor/ARB. #10. Valvular heart disease with concurrent history aneurysm: Status post bioprosthetic AVR and aneurysmal repair, 06/05/2024 echocardiogram with EF 70%, stable appearing aortic valve apparatus. #11. Anxiety and depression: continue patient home trazodone and sertraline regimen. #12. History CVA: Temporarily holding antiplatelets given significant thrombocytopenia, temporally holding amlodipine as noted, continued on statin therapy. #13. Cardiac arrhythmia, PAF suspected: Status post PPM/AICD, continue sotalol, not chronically anticoagulated. #14. Hyperlipidemia: continue patient on statin therapy. #15. Hypertension: Hold amlodipine #16. Former tobacco use: Encourage continued tobacco cessation. #17. DVT prophylaxis: SCDs. #18. CODE status: Patient AZEEM is her Sister Zuly and living will is currently in place. Discussed CODE status at length including difference between FULL code, DNR-CCA and DNR-CC status. Following discussions about the differences in these status, requested Full Code status. Advanced Care Planning Face to Face Time: 16 minutes. Charges/Coding Visit Charges Inpatient E&M: 03155 Subs Hosp L2
[2024-12-10] MEDS: Lidocaine 5% Patch 1 PATCH TOPICAL (14:59)
[2024-12-10 16:24] LABS: Absolute Lymphocyte Count 0.19 X10^3/uL (0.83-4.51); Absolute Neutrophil Count 0.6 X10^3/uL (2.0-7.7); Eosinophil# 0.02 X10^3/uL; Eosinophils% 2.1 % (0-5); Hemoglobin 8.7 g/dL (12.0-15.0); Lymphocyte # 0.19 X10^3/ul (0.83-4.51); Lymphocyte % 19.8 % (19-41); Mean Corp Hgb Conc 33.5 g/dL (32-36); Mean Corpuscular Hgb 29.5 pg (27.0-32.0); Mean Corpuscular Volume 88.1 fL (81-99); Mean Platelet Vol. 9.2 fl (6.2-12.0); Monocyte# 0.01 X10^3/uL; NRBC Flagged by Analyzer 0 % (0-5); Neutrophil # 0.58 X10^3/uL (2.7-7.7); Neutrophil % 60.4 % (47-70); POSITIVE COUNT YES; POSITIVE DIFFERENTIAL YES; POSITIVE MORPHOLOGY YES; RBC Distribution Width CV 13.6 % (11.6-14.6); RBC Distribution Width SD 44.1 fl (35.1-43.9); Red Blood Count 2.95 M/mm3 (4.2-5.4)
[2024-12-10 16:27] LABS: Differential Indicated SCAN CRITERIA MET; Platelet Count 13 K/mm3 (150-450)
[2024-12-10 16:33] LABS: Anion Gap 5 (5-15); BUN 10 mg/dL (7-18); Calcium,Total 8.2 mg/dL (8.5-10.1); Chloride 105 mmol/L (98-107); Creatinine, Serum 0.71 mg/dL (0.55-1.02); EST Glomerular Filtration Rate 86 mL/min (>60); Est Glom Filt Rate - Afr Amer 104 mL/min (>60); Estimated Creatinine Clearance 54.15 ml/min; Glucose 102 mg/dL (74-106); Potassium 3.7 mmol/L (3.5-5.1); Sodium Level 136 mmol/L (136-145)
[2024-12-10] MEDS: TBO-FILGRASTIM 480 MCG/0.8 ML ML SC (17:02)
[2024-12-10 17:04] LABS: Platelet Estimate MOD DEC (ADEQ)
[2024-12-10] MEDS: levoFLOXacin IV 500 MG/100 ML BAG 100 MG IV (18:23)
[2024-12-10] MEDS: Lactobacillis Acidophilus 1 CAP PO ×2 (18:23→22:26)
[2024-12-10] MEDS: metroNIDAZOLE 500 MG/100 ML BAG 100 MG IV (19:57)
[2024-12-10] MEDS: traZODone 100 MG Tablet PO (22:25)
[2024-12-10] MEDS: Atorvastatin Calcium 40 MG Tablet PO (22:25)
[2024-12-11] VITALS (13 sets, daily range): BP systolic 110–150; BP diastolic 57–78; PULSE 83–93; RESP 16–18; TEMP 36.2–37.1; O2SAT 93–100; BMI 27.1
[2024-12-11] MEDS: metroNIDAZOLE 500 MG/100 ML BAG 100 MG IV (05:59)
[2024-12-11 06:51] LABS: Hematocrit 25.1 % (37-47); Hemoglobin 8.3 g/dL (12.0-15.0); Mean Corp Hgb Conc 33.1 g/dL (32-36); Mean Corpuscular Hgb 29.2 pg (27.0-32.0); Mean Corpuscular Volume 88.4 fL (81-99); Mean Platelet Vol. 10.3 fl (6.2-12.0); POSITIVE COUNT YES; POSITIVE DIFFERENTIAL YES; POSITIVE MORPHOLOGY YES; RBC Distribution Width CV 13.5 % (11.6-14.6); RBC Distribution Width SD 44.1 fl (35.1-43.9); Red Blood Count 2.84 M/mm3 (4.2-5.4)
[2024-12-11 07:00] LABS: White Blood Count 1.2 K/mm3 (4.4-11.0)
[2024-12-11 07:01] LABS: Platelet Count 8 K/mm3 (150-450)
[2024-12-11 07:23] LABS: AST(SGOT) 23 U/L (15-37); Alanine Aminotransfer ALT/SGPT 18 U/L (13-56); Albumin, Serum 2.4 g/dL (3.2-5.0); Alkaline Phosphatase 107 U/L (45-117); Anion Gap 7 (5-15); BUN 8 mg/dL (7-18); BUN/Creat Ratio 13.1 RATIO (10-20); Bilirubin, Direct 0.34 mg/dL (0.00-0.30); Calcium,Total 8.4 mg/dL (8.5-10.1); Chloride 104 mmol/L (98-107); Creatinine, Serum 0.61 mg/dL (0.55-1.02); EST Glomerular Filtration Rate 103 mL/min (>60); Est Glom Filt Rate - Afr Amer 124 mL/min (>60); Estimated Creatinine Clearance 54.15 ml/min; Globulin 3.5 g/dL (2.2-4.2); Glucose 86 mg/dL (74-106); Potassium 3.5 mmol/L (3.5-5.1); Protein, Total 5.9 g/dL (6.4-8.2); Sodium Level 136 mmol/L (136-145)
[2024-12-11 07:47] LABS: Absolute Neutrophil Count 0.9 X10^3/uL (2.0-7.7); Eosinophils% 0.9 % (0-5); Neutrophil # 0.86 X10^3/uL (2.7-7.7); Neutrophil % 74.1 % (47-70)
[2024-12-11 07:48] LABS: Absolute Lymphocyte Count 0.22 X10^3/uL (0.83-4.51); Eosinophil# 0.01 X10^3/uL; Lymphocyte # 0.22 X10^3/ul (0.83-4.51); Platelet Estimate MKD DEC (ADEQ); Red Cell Morphology NORM C+C NORMAL (NORM C&C)
[2024-12-11] MEDS: Pantoprazole Sodium 40 MG in 0.9% Normal Saline (100mL MB+) 100 ML 330 MG IV ×2 (08:39→21:37)
[2024-12-11] MEDS: Lactobacillis Acidophilus 1 CAP PO ×4 (08:40→20:49)
[2024-12-11] MEDS: Sotalol Hydrochloride 80 MG Tablet PO (08:41)
[2024-12-11] MEDS: Sertraline 100 MG Tablet PO (08:41)
[2024-12-11] MEDS: 0.9% Normal Saline (100mL Bag) 100 ML 15 ML IV (09:53)
[2024-12-11] MEDS: Piperacil/Tazobactam 3.375 GM in 0.9% Normal Saline (50mL MB+) 50 ML IV ×3 (09:53→21:36)
[2024-12-11] MEDS: Vancomycin HCl 1,500 MG in 0.9% Normal Saline (500mL Bag) 500 ML 250 MG IV (10:47)
--- NOTE | 2024-12-11 11:07 | NURSING ---
per [facility], [facility] not [facility] any [facility]T to be released at this time. They perhaps will have some available around 1300.
--- NOTE | 2024-12-11 11:08 | PCM.CONS.GEN ---
Assessment & Plan Assessment/Plan (1) Neutropenic fever: PLAN: Bcx sent yesterday. Stool panel neg. Port in place. Will change to vanc/zosyn for broader coverage. Will follow, thank you (2) Breast cancer metastasized to axillary lymph node: HPI Consult Data Date of Consult: 12/11/24 HPI Narrative Reason for Consultation: fever HPI Narrative: ZORA MATUTE, is a 69 F with h/o CAD, CABG, AV replacement, metastatic breast cancer on chemo, presented 12/08 to ED with several days n/v/d (starting 12/06). No sick contacts. No mouth sores. No blood in stool. No issues with R chest port. Came to ED, admitted, had neg stool studies. Put on levaquin/flagyl, had fever and chills last night. No abd pain. Full ROS performed and neg except as noted above. [facility] Medical History Nontraumatic psoas hematoma Hyperbilirubinemia Severe anemia Non-ST elevation [place] (NSTEMI) Rhabdomyolysis Thrombocytopenia CAD (coronary artery disease) Chronic pain Atrial fibrillation ICD (implantable cardioverter-defibrillator) in place Urinary urgency Metastasis to bone Regional lymph node metastasis present Invasive ductal carcinoma of breast Aortic valve regurgitation due to aortic dilation Breast nodule Abnormal findings on imaging test Breast mass, right Skin mole Left knee pain Anxiety and depression Diarrhea Major depressive disorder, recurrent Health care maintenance Flu vaccine need Skin tags, multiple acquired Left hand pain History of cyst of breast History of stroke Heart valve problem GERD (gastroesophageal reflux disease) Hyperlipemia Hypertension Home Medications ?Medication ?Instructions ?Recorded ?Last Taken ?Type aspirin 81 mg chewable tablet 81 mg PO DAILY 11/23/17 06/03/24 History melatonin 10 mg capsule 10 mg PO HS PRN sleep 11/23/17 06/03/24 History calcium carbonate 600 mg PO BID 06/30/18 06/03/24 History amlodipine 10 mg tablet 10 mg PO QDAY #90 tabs 05/11/24 06/03/24 Rx nitroglycerin 0.4 mg sublingual See Rx Instructions .Route 05/11/24 Unknown Rx tablet .COMPLEX #75 tabs rosuvastatin 20 mg tablet 20 mg PO DAILY #90 tabs 05/11/24 06/03/24 Rx sertraline 100 mg tablet 100 mg PO QDAY #90 tabs 05/11/24 06/03/24 Rx trazodone 100 mg tablet 100 mg PO QHS PRN insomnia #90 tabs 05/11/24 06/03/24 Rx handicap placard #1 ea 09/01/24 Unknown Rx cholecalciferol (vitamin D3) 50 50 mcg PO DAILY 12/08/24 Unknown History mcg (2,000 unit) capsule (Vitamin D3) lisinopril 5 mg tablet 5 mg PO DAILY 12/08/24 Unknown History pantoprazole 40 mg tablet,delayed 40 mg PO BID 12/08/24 Unknown History release sotalol 80 mg tablet (Betapace) 80 mg PO DAILY 12/08/24 Unknown History Allergy/AdvReac Type Severity Reaction Status Date / Time No Known Allergies Allergy Verified 12/08/24 17:05 Family History Mother CVA (cerebral vascular accident) Breast cancer, Onset Age: 35 Father Heart disease Sister Breast cancer, Onset Age: 50 Heart disease Hypertension Cancer lung Surgical History History of coronary artery bypass graft x 3 History of hysterectomy Cardiac defibrillator in place 4 stents cardiac rythem pacemaker triple bypass, valve replacement, nad aneurysm repair History of tonsillectomy Social History (Updated 12/09/24 @ 02:[address] Tere Price MD) household members: none Smoking Status: Former smoker Tobacco: How many years used: 20 how long ago did patient quit smokin alcohol intake: never substance use type: does not use what type of physical activity do you participate in: none Physical Exam Const alert, oriented x3 and no apparent distress General Appearance: cooperative HEENT normocephalic and head/scalp atraumatic HEENT Narrative: no thrush Eyes PERRL and EOMs intact bilaterally Neck supple and No nodes Resp normal air movement and clear to auscultation bilaterally Cardio regular rate and regular rhythm Heart Sounds: murmur GI soft to palpation, non-tender and non-distended Extremity General Extremity: Negative for edema Skin Skin Narrative: R chest port. Faint lacy rash on RUE. Neuro CN's II-XII intact bilaterally Lab / Micro Data Attestation: I reviewed the patient's lab results. 12/11/24 06:05 12/11/24 06:05 Labs: Laboratory Results - last 24 hr 12/10/24 16:07: WBC 1.0 L*, RBC 2.95 L, Hgb 8.7 L, Hct 26.0 L, MCV 88.1, MCH 29.5, MCHC 33.5, RDW Std Deviation 44.1 H, RDW Coeff of Margareth 13.6, Plt Count 13 L*, MPV 9.2, Immature Gran % (Auto) 16.700 H, Neut % (Auto) 60.4, Lymph % (Auto) 19.8, [place] % (Auto) 1.0, Eos % (Auto) 2.1, Baso % (Auto) 0.0, Absolute Neuts (auto) 0.6 L, Absolute Lymphs (auto) 0.19 L, Nucleated RBC % 0, Diff Path Review February alex, Platelet Estimate MOD DEC, Sodium 136, Potassium 3.7, Chloride 105, Carbon Dioxide 26.0, Anion Gap 5, BUN 10, Creatinine 0.71, Estim Creat Clear Calc 54.15, Est GFR (MDRD) Af Amer 104, Est GFR (MDRD) Non-Af 86, BUN/Creatinine Ratio 14.0, Glucose 102, Calcium 8.2 L 12/11/24 06:05: WBC 1.2 L*, RBC 2.84 L, Hgb 8.3 L, Hct 25.1 L, MCV 88.4, MCH 29.2, MCHC 33.1, RDW Std Deviation 44.1 H, RDW Coeff of Margareth 13.5, Plt Count 8 L*, MPV 10.3, Immature Gran % (Auto) 6.000 H, Neut % (Auto) 74.1 H, Lymph % (Auto) 19.0, [place] % (Auto) 0.0, Eos % (Auto) 0.9, Baso % (Auto) 0.0, Absolute Neuts (auto) 0.9 L, Absolute Lymphs (auto) 0.22 L, Diff Path Review February alex, Platelet Estimate MKD DEC, RBC Morphology NORM C+C, Sodium 136, Potassium 3.5, Chloride 104, Carbon Dioxide 25.0, Anion Gap 7, BUN 8, Creatinine 0.61, Estim Creat Clear Calc 54.15, Est GFR (MDRD) Af Amer 124, Est GFR (MDRD) Non-Af 103, BUN/Creatinine Ratio 13.1, Glucose 86, Calcium 8.4 L, Total Bilirubin 0.80, Direct Bilirubin 0.34 H, AST 23, ALT 18, Alkaline Phosphatase 107, Total Protein 5.9 L, Albumin 2.4 L, Globulin 3.5 12/11/24 08:40: Blood Type B POSITIVE
--- NOTE | 2024-12-11 11:20 | CASEMGMT ---
GABRIEL ULLOA Assessment: Face to Face with pt for initial transition planning/care coordination assessment. GABRIEL ULLOA introduced self and role at [facility], pt voices understanding and consents to assessment. Pt is A&O x4 and answers all questions appropriately at this time. Pt is sitting up in bed in no distress. Care providers, pharmacy, and demographics verified/updated. Strata: 3 Admitting Dx: N/V/D PCP: Leeanne Specialists: Petar, Oncology; Jayro, Cardiology Preferred Pharmacy: [facility] Insurance: [employer], [employer] Prescription Benefit: yes LNOK: Sister, Zuly; Niece, Nubia Living Arrangements: Pt lives with 3 friends in a ranch home ADLs: I at baseline Transportation: Pt drives self and denies concerns with transportation. DME: [facility], W/C HHC/SNF: Denies Hx of. Pt states no concerns with going home at time of dc. GABRIEL ULLOA discussed possible need for O2 at time of DC, provided verbal list of O2 providers. Pt chose [facility] as DME provider of choice if O2 needed at time of DC. GABRIEL ULLOA discussed possible need for IV antibiotics at DC, pt states she has a friend that is able to help if IV antibiotics are needed. Pt states no further concerns/needs. CM to follow. Advised pt to ask CM if any further question/concerns/needs arise, voices understanding. Pt Goal: Home Plan: Home, Follow ID, follow for O2 needs. Carmen RIOS CM
--- NOTE | 2024-12-11 12:09 | PCM.RX.CS ---
Consult Antibiotic Management Pharmacy has been consulted to manage selected antibiotic: Vancomycin Type of Intervention Type of Consult: New start Suspected Infection Suspected Infection: Other (Neutropenic fever) Prior Doses of Antibiotics Prior Doses of Antibiotics Received/Current Regimen: Received 1500mg (~25mg/kg) as initial dose 12.11.24 @1047. Labs Labs: Sodium 136 mmol/L (136-145) 12/11/24 06:05 Potassium 3.5 mmol/L (3.5-5.1) 12/11/24 06:05 Chloride 104 mmol/L (98-107) 12/11/24 06:05 Carbon Dioxide 25.0 mmol/L (21.0-32.0) 12/11/24 06:05 Anion Gap 7 (5-15) 12/11/24 06:05 BUN 8 mg/dL (7-18) 12/11/24 06:05 Creatinine 0.61 mg/dL (0.55-1.02) 12/11/24 06:05 Est GFR (MDRD) Af Amer 124 mL/min (>60) 12/11/24 06:05 Est GFR (MDRD) Non-Af 103 mL/min (>60) 12/11/24 06:05 BUN/Creatinine Ratio 13.1 RATIO (10-20) 12/11/24 06:05 Glucose 86 mg/dL (74-106) 12/11/24 06:05 Microbiology Microbiology: Microbiology 12/08/24 21:00 Stool Enteric Bacteriology - Final 12/08/24 21:00 Stool Clostridioides difficile (PCR) - Final 12/08/24 20:37 Mucosa - Nose SARS-CoV-2, Influenza & RSV (PCR) - Final Dosing Weight Weight used for dosin.8 kg Estimated Creatinine Clearance Estimated Creatinine Clearance: 54 ml/min Goal Trough Goal Trough: 15-20 mcg/mL Pharmacy Plan for Drug Dosing Pharmacy Plan for Drug Dosing: Recommend beginning 500mg iv q12h starting 12hrs after initial 1500mg dose. Trough level before 4th total dose. Pharmacy Service will continue to monitor and adjust dosing as required. Follow-Up Labs Follow-Up Labs: Trough: Vancomycin (12.12.23 @2230)
[2024-12-11 14:06] LABS: Pathologist Review Reviewed
[2024-12-11 14:07] LABS: Pathologist Review Reviewed
--- NOTE | 2024-12-11 14:29 | CHAPLAIN ---
Type of Pastoral Visit _x__ Initial Visit ___ Follow-up Visit ___ On-call Visit ___ General Patient Visit ___ Spiritual Assessment ___ Family Conference ___ Bereavement ___ Rapid Response ___ Code Blue ___ Other (describe below) Pastoral Care Referral From _x__ Patient ___ Family ___ Nurse ___ Physician ___ Water Pump Servicer ___ Box Worker ___ Other (describe below) Sacrament/Intervention _x__ Active listening ___ Anointing ___ Adventist ___ Bereavement ___ Communion ___ Katherine exploration ___ ___ Life review _x__ Prayer ___ Reconciliation ___ Sacrament of Sick _x__ Supportive presence ___ Wedding ___ Other (describe below) Pastoral Comments patient reports on her reason for coming to the hospital and the subsequent discovery of other needs; pt is taking chemo treatments and had heart surgery last fall; pt is asked about her coping and what is helpful in her life; pt reports that she understands that she is not in control of things and that she just lets God handle it; pt reports on her katherine as a resource but is not affiliated with a hindu group; prayer is welcomed for support today
[2024-12-11 15:32] LABS: Pathologist Review Reviewed
[2024-12-11 15:33] LABS: Pathologist Review Reviewed
--- NOTE | 2024-12-11 17:46 | NURSING ---
rate per policy/ rollerclamp. no IVAC
[2024-12-11] MEDS: 0.9% Saline Lock 10 ML Syringe IV (17:48)
--- NOTE | 2024-12-11 18:02 | NURSING ---
roller clamp wide open
[2024-12-11] MEDS: 0.9% Normal Saline (100mL Bag) 100 ML IV (18:05)
--- NOTE | 2024-12-11 18:24 | NURSING ---
PLT done infusing- just flushing tubing with NS flush bag wide open
--- NOTE | 2024-12-11 18:35 | PCM.PN.HOSP ---
Reason for Visit Reason for Visit: Diagnoses Malignant neoplasm of unspecified site of unspecified female breast (12/10/24) Secondary and unspecified malignant neoplasm of axilla and upper limb lymph nodes (12/10/24) Neutropenia, unspecified (12/10/24) Noninfective gastroenteritis and colitis, unspecified (12/10/24) Fever presenting with conditions classified elsewhere (12/10/24) Subjective Subjective Patient was seen and examined today, her platelet count was below 10,000, I talked with oncology today and they recommended transfusion of platelets which I ordered. I also received a text from infectious diseases requesting that antibiotic coverage to be changed to vancomycin and Zosyn. It appears that the patient's oncologist is currently in [place], she is no longer seeing oncology in [place]. Objective Data Objective Data Vital Signs: Vital Signs Temp Pulse Resp BP Pulse Ox O2 Del Method O2 Flow Rate 98.1 F 87 18 133/66 H 98 Nasal Cannula 2 12/11/24 18:23 12/11/24 18:23 12/11/24 18:23 12/11/24 18:23 12/11/24 18:23 12/11/24 18:23 12/11/24 18:23 Oxygen Flow Rate (L/min) 2 Oxygen Delivery Method Nasal Cannula Weight: 62.8 kg Body Mass Index (BMI) 27.1 Intake & Output: Intake and Output for Last 24 Hours 12/09/24 12/10/24 12/11/24 23:59 23:59 23:59 Intake Total 1780 / 2080 2893.33 / 2953.33 1541.33 / 1541.33 Output Total 50 / 50 Balance 1730 / 2029 2893.33 / 2953.33 1541.33 / 1541.33 Lab / Micro Data 12/12/24 05:22 12/12/24 05:22 Labs: Laboratory Results - last 24 hr 12/08/24 20:34: Diff Path Review Reviewed 12/09/24 07:50: Diff Path Review Reviewed 12/10/24 16:07: Diff Path Review Reviewed 12/11/24 06:05: WBC 1.2 L*, RBC 2.84 L, Hgb 8.3 L, Hct 25.1 L, MCV 88.4, MCH 29.2, MCHC 33.1, RDW Std Deviation 44.1 H, RDW Coeff of Margareth 13.5, Plt Count 8 L*, MPV 10.3, Immature Gran % (Auto) 6.000 H, Neut % (Auto) 74.1 H, Lymph % (Auto) 19.0, [place] % (Auto) 0.0, Eos % (Auto) 0.9, Baso % (Auto) 0.0, Absolute Neuts (auto) 0.9 L, Absolute Lymphs (auto) 0.22 L, Diff Path Review Reviewed, Platelet Estimate MKD DEC, RBC Morphology NORM C+C, Sodium 136, Potassium 3.5, Chloride 104, Carbon Dioxide 25.0, Anion Gap 7, BUN 8, Creatinine 0.61, Estim Creat Clear Calc 54.15, Est GFR (MDRD) Af Amer 124, Est GFR (MDRD) Non-Af 103, BUN/Creatinine Ratio 13.1, Glucose 86, Calcium 8.4 L, Total Bilirubin 0.80, Direct Bilirubin 0.34 H, AST 23, ALT 18, Alkaline Phosphatase 107, Total Protein 5.9 L, Albumin 2.4 L, Globulin 3.5 12/11/24 08:40: Blood Type B POSITIVE Micro: Microbiology 12/08/24 21:00 Stool Enteric Bacteriology - Final 12/08/24 21:00 Stool Clostridioides difficile (PCR) - Final 12/08/24 20:37 Mucosa - Nose SARS-CoV-2, Influenza & RSV (PCR) - Final Physical Exam Const alert, oriented x3, no apparent distress and average body habitus General Appearance: cooperative, well kempt and well developed Orientation / Consciousness: awake, oriented to person, oriented to place and oriented to time HEENT normocephalic, head/scalp atraumatic and moist oral mucous membranes Eyes PERRL, EOMs intact bilaterally and conjunctivae normal Neck supple, no JVD, thyroid normal and no carotid bruits General: trachea midline Resp normal respiratory effort, no retractions, no use of accessory muscles and clear to auscultation bilaterally Auscultation: Negative for rales, rhonchi or wheezes Cardio regular rate, regular rhythm, S1 normal heart sound, S2 normal heart sound, no rub and no gallops Cardio Narrative: There is a 2/6 systolic murmur noted at the apex and left sternal border GI normal to inspection, nondistended, normoactive bowel sounds, soft to palpation, non-tender and non-distended Extremity no clubbing, cyanosis or edema Skin no rashes or lesions noted General Skin Exam: no breakdown Neuro oriented x3, CN's II-XII intact bilaterally, moves all extremities, no focal motor deficits and no sensory deficits noted Sensorium / Orientation: awake and alert Speech: speech normal Psych affect normal Assessment & Plan Assessment/Plan (1) Neutropenic fever: PLAN: Plan 1. Neutropenic fever-again patient's antibiotics were adjusted today by infectious diseases, patient was given an infusion of platelets today, CBC will be repeated tomorrow #2 pancytopenia-Labs will be monitored, again patient was given a platelet infusion today #3 metastatic breast cancer-complicates care, management, recovery, and prognosis #4 hypoxia-secondary to atelectasis and radiation fibrosis-continue to monitor pulse ox, it does not appear that the patient has an identifiable pneumonia. Total clinical time spent by myself addressing the patient's medical issues, reviewing all of her data, and collaborating with patient's care team: 35 minutes Charges/Coding Visit Charges Inpatient E&M: 27911 Subs Hosp L2
[2024-12-11] MEDS: Atorvastatin Calcium 40 MG Tablet PO (20:49)
[2024-12-11] MEDS: traZODone 100 MG Tablet PO (20:49)
[2024-12-11] MEDS: Vancomycin IV 500 MG/100 ML BAG 100 MG IV (23:36)
[2024-12-12] VITALS (14 sets, daily range): BP systolic 125–145; BP diastolic 59–63; PULSE 80–96; RESP 14–16; TEMP 36.3–37.3; O2SAT 87–100; BMI 27.1
[2024-12-12 06:12] LABS: Absolute Lymphocyte Count 0.33 X10^3/uL (0.83-4.51); Absolute Neutrophil Count 1.6 X10^3/uL (2.0-7.7); Basophil# 0.03 X10^3/uL; Basophil% 1.5 % (0-1); Eosinophil# 0.01 X10^3/uL; Eosinophils% 0.5 % (0-5); Hemoglobin 8.5 g/dL (12.0-15.0); Lymphocyte # 0.33 X10^3/ul (0.83-4.51); Lymphocyte % 16.9 % (19-41); Mean Corp Hgb Conc 32.7 g/dL (32-36); Mean Corpuscular Volume 88.7 fL (81-99); Mean Platelet Vol. 10.6 fl (6.2-12.0); Monocyte# 0.02 X10^3/uL; NRBC Flagged by Analyzer 0 % (0-5); Neutrophil # 1.55 X10^3/uL (2.7-7.7); Neutrophil % 79.6 % (47-70); POSITIVE COUNT YES; POSITIVE DIFFERENTIAL YES; POSITIVE MORPHOLOGY YES; RBC Distribution Width CV 13.5 % (11.6-14.6); RBC Distribution Width SD 44.3 fl (35.1-43.9); Red Blood Count 2.93 M/mm3 (4.2-5.4)
[2024-12-12] MEDS: Piperacil/Tazobactam 3.375 GM in 0.9% Normal Saline (50mL MB+) 50 ML IV ×3 (06:13→22:26)
[2024-12-12 06:41] LABS: Differential Indicated SCAN CRITERIA MET; Platelet Count 14 K/mm3 (150-450)
[2024-12-12 06:45] LABS: Anion Gap 8 (5-15); BUN 7 mg/dL (7-18); Calcium,Total 8.2 mg/dL (8.5-10.1); Chloride 102 mmol/L (98-107); Creatinine, Serum 0.58 mg/dL (0.55-1.02); EST Glomerular Filtration Rate 109 mL/min (>60); Est Glom Filt Rate - Afr Amer 131 mL/min (>60); Estimated Creatinine Clearance 54.23 ml/min; Glucose 86 mg/dL (74-106); Potassium 3.1 mmol/L (3.5-5.1); Sodium Level 136 mmol/L (136-145)
[2024-12-12 08:08] LABS: Platelet Estimate MKD DEC (ADEQ)
[2024-12-12] MEDS: 0.9% Saline Lock 10 ML Syringe IV (08:44)
[2024-12-12] MEDS: Pantoprazole Sodium 40 MG in 0.9% Normal Saline (100mL MB+) 100 ML 330 MG IV ×2 (08:44→21:55)
[2024-12-12] MEDS: Lactobacillis Acidophilus 1 CAP PO ×4 (08:44→21:49)
[2024-12-12] MEDS: Sertraline 100 MG Tablet PO (08:44)
[2024-12-12] MEDS: Sotalol Hydrochloride 80 MG Tablet PO (08:52)
[2024-12-12] MEDS: Vancomycin IV 500 MG/100 ML BAG 100 MG IV (10:35)
[2024-12-12 11:52] LABS: Pathologist Review Reviewed
[2024-12-12] MEDS: Potassium Chloride Oral Tablet 20 MEQ 40 MEQ PO (14:49)
--- NOTE | 2024-12-12 17:44 | PCM.PN.HOSP ---
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 Patient's platelet count today was 14,000, absolute neutrophil count was 1600. Objective Data Objective Data Vital Signs: Vital Signs Temp Pulse Resp BP Pulse Ox O2 Del Method O2 Flow Rate 98.1 F 80 16 125/59 H 94 Nasal Cannula 2 12/12/24 14:48 12/12/24 14:48 12/12/24 14:48 12/12/24 14:48 12/12/24 15:45 12/12/24 15:45 12/12/24 15:45 Oxygen Flow Rate (L/min) 2 Oxygen Delivery Method Nasal Cannula Weight: 63 kg Body Mass Index (BMI) 27.1 Intake & Output: Intake and Output for Last 24 Hours 12/10/24 12/11/24 12/12/24 23:59 23:59 23:59 Intake Total 2893.33 / 2953.33 2050.00 / 2050.00 1260 / 1260 Balance 2893.33 / 2953.33 2050. / 2050.00 1260 / 1260 Lab / Micro Data 12/12/24 05:22 12/12/24 05:22 Labs: Laboratory Results - last 24 hr 12/12/24 05:22: WBC 2.0 L, RBC 2.93 L, Hgb 8.5 L, Hct 26.0 L, MCV 88.7, MCH 29.0, MCHC 32.7, RDW Std Deviation 44.3 H, RDW Coeff of Margareth 13.5, Plt Count 14 L*, MPV 10.6, Immature Gran % (Auto) 0.500, Neut % (Auto) 79.6 H, Lymph % (Auto) 16.9 L, [place] % (Auto) 1.0, Eos % (Auto) 0.5, Baso % (Auto) 1.5 H, Absolute Neuts (auto) 1.6 L, Absolute Lymphs (auto) 0.33 L, Nucleated RBC % 0, Differential Comment COMMENT, Diff Path Review Reviewed, Platelet Estimate MKD DEC, Sodium 136, Potassium 3.1 L, Chloride 102, Carbon Dioxide 26.0, Anion Gap 8, BUN 7, Creatinine 0.58, Estim Creat Clear Calc 54.23, Est GFR (MDRD) Af Amer 131, Est GFR (MDRD) Non-Af 109, BUN/Creatinine Ratio 12.0, Glucose 86, Calcium 8.2 L Micro: Microbiology 12/08/24 21:00 Stool Ova and Parasites - Final 12/10/24 08:20 Blood Culture (Wb) - Anticubital Right Blood Culture - Preliminary No growth in 48 hours. 12/10/24 08:15 Blood Culture (Wb) - Anticubital Left Blood Culture - Preliminary No growth in 48 hours. 12/08/24 21:00 Stool Enteric Bacteriology - Final 12/08/24 21:00 Stool Clostridioides difficile (PCR) - Final 12/08/24 20:37 Mucosa - Nose SARS-CoV-2, Influenza & RSV (PCR) - Final Physical Exam Narrative alert, oriented x3, no apparent distress and average body habitus General Appearance: cooperative, well kempt and well developed Orientation / Consciousness: awake, oriented to person, oriented to place and oriented to time HEENT normocephalic, head/scalp atraumatic and moist oral mucous membranes Eyes PERRL, EOMs intact bilaterally and conjunctivae normal Neck supple, no JVD, thyroid normal and no carotid bruits General: trachea midline Resp normal respiratory effort, no retractions, no use of accessory muscles and clear to auscultation bilaterally Auscultation: Negative for rales, rhonchi or wheezes Cardio regular rate, regular rhythm, S1 normal heart sound, S2 normal heart sound, no rub and no gallops Cardio Narrative: There is a 2/6 systolic murmur noted at the apex and left sternal border GI normal to inspection, nondistended, normoactive bowel sounds, soft to palpation, non-tender and non-distended Extremity no clubbing, cyanosis or edema Skin no rashes or lesions noted General Skin Exam: no breakdown Neuro oriented x3, CN's II-XII intact bilaterally, moves all extremities, no focal motor deficits and no sensory deficits noted Sensorium / Orientation: awake and alert Speech: speech normal Psych affect normal Assessment & Plan Assessment/Plan (1) Neutropenic fever: PLAN: Plan 1. 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 #5 hypokalemia-patient was given potassium supplementation today, BMP will be rechecked tomorrow Total clinical time spent by myself addressing the patient's medical issues, reviewing all of her data, and collaborating with patient's care team: 35 minutes Charges/Coding Visit Charges Inpatient E&M: 23873 Subs Hosp L2
[2024-12-12] MEDS: Vancomycin Trough/Random Due 1 LAB MC (21:38)
[2024-12-12] MEDS: traZODone 100 MG Tablet PO (21:49)
[2024-12-12] MEDS: Atorvastatin Calcium 40 MG Tablet PO (21:49)
[2024-12-12 23:12] LABS: Vancomycin, Trough Level 7.6 ug/mL (5.0-15.0)
[2024-12-13] VITALS (7 sets, daily range): BP systolic 132–166; BP diastolic 58–72; PULSE 79–101; RESP 16–18; TEMP 36.4–37.3; O2SAT 87–98; BMI 27.1
--- NOTE | 2024-12-13 00:27 | PCM.RX.CS ---
Consult Antibiotic Management Pharmacy has been consulted to manage selected antibiotic: Vancomycin Type of Intervention Type of Consult: Follow-up Labs Labs: Sodium 136 mmol/L (136-145) 12/12/24 05:22 Potassium 3.1 mmol/L (3.5-5.1) L 12/12/24 05:22 Chloride 102 mmol/L (98-107) 12/12/24 05:22 Carbon Dioxide 26.0 mmol/L (21.0-32.0) 12/12/24 05:22 Anion Gap 8 (5-15) 12/12/24 05:22 BUN 7 mg/dL (7-18) 12/12/24 05:22 Creatinine 0.58 mg/dL (0.55-1.02) 12/12/24 05:22 Est GFR (MDRD) Af Amer 131 mL/min (>60) 12/12/24 05:22 Est GFR (MDRD) Non-Af 109 mL/min (>60) 12/12/24 05:22 BUN/Creatinine Ratio 12.0 RATIO (10-20) 12/12/24 05:22 Glucose 86 mg/dL (74-106) 12/12/24 05:22 Vancomycin Trough 7.6 ug/mL (5.0-15.0) 12/12/24 22:38 Microbiology Microbiology: Microbiology 12/08/24 21:00 Stool Ova and Parasites - Final 12/10/24 08:20 Blood Culture (Wb) - Anticubital Right Blood Culture - Preliminary No growth in 48 hours. 12/10/24 08:15 Blood Culture (Wb) - Anticubital Left Blood Culture - Preliminary No growth in 48 hours. 12/08/24 21:00 Stool Enteric Bacteriology - Final 12/08/24 21:00 Stool Clostridioides difficile (PCR) - Final 12/08/24 20:37 Mucosa - Nose SARS-CoV-2, Influenza & RSV (PCR) - Final Goal Trough Goal Trough: 15-20 mcg/mL Pharmacy Plan for Drug Dosing Pharmacy Plan for Drug Dosing: Pharmacy Service will continue to monitor and adjust dosing as required. TROUGH 7.6 @ 12 HOURS. INCREASE TO 1GM Q12H AND FOLLOW UP TROUGH PRIOR TO 4TH DOSE Follow-Up Labs Follow-Up Labs: Trough: Vancomycin Date/Time Labs Ordered Labs to be done on [date and time ordered]: 12/14 @ 1130
[2024-12-13] MEDS: Vancomycin IV 1,000 MG/200 ML BAG 200 MG IV ×2 (01:44→12:00)
[2024-12-13 05:54] LABS: Absolute Lymphocyte Count 0.34 X10^3/uL (0.83-4.51); Absolute Neutrophil Count 1.4 X10^3/uL (2.0-7.7); Basophil# 0.01 X10^3/uL; Basophil% 0.6 % (0-1); Hematocrit 23.3 % (37-47); Hemoglobin 7.8 g/dL (12.0-15.0); Lymphocyte # 0.34 X10^3/ul (0.83-4.51); Mean Corp Hgb Conc 33.5 g/dL (32-36); Mean Corpuscular Hgb 29.5 pg (27.0-32.0); Mean Corpuscular Volume 88.3 fL (81-99); Mean Platelet Vol. 9.3 fl (6.2-12.0); Monocyte# 0.06 X10^3/uL; Monocyte% 3.4 % (0-10); NRBC Flagged by Analyzer 0 % (0-5); Neutrophil # 1.37 X10^3/uL (2.7-7.7); Neutrophil % 76.4 % (47-70); POSITIVE COUNT YES; POSITIVE DIFFERENTIAL YES; POSITIVE MORPHOLOGY YES; RBC Distribution Width CV 13.6 % (11.6-14.6); RBC Distribution Width SD 43.8 fl (35.1-43.9); Red Blood Count 2.64 M/mm3 (4.2-5.4); White Blood Count 1.8 K/mm3 (4.4-11.0)
[2024-12-13 06:02] LABS: Differential Indicated SCAN CRITERIA MET; Platelet Count 7 K/mm3 (150-450)
[2024-12-13] MEDS: Piperacil/Tazobactam 3.375 GM in 0.9% Normal Saline (50mL MB+) 50 ML IV ×2 (06:02→14:21)
[2024-12-13 06:24] LABS: Anion Gap 10 (5-15); BUN 7 mg/dL (4-19); BUN/Creat Ratio 11.6 RATIO (10-20); Calcium 7.8 mg/dL (7.6-11.0); Carbon Dioxide 27.4 mmol/L (22.0-29.0); Chloride 98 mmol/L (96-108); Creatinine, Serum 0.6 mg/dL (0.6-1.0); EST Glomerular Filtration Rate 98 (>60); Estimated Creatinine Clearance 54.19 ml/min; Glucose 96 mg/dL (70-99); Potassium 3.4 mmol/L (3.3-5.1); Sodium Level 136 mmol/L (133-145)
[2024-12-13 07:53] LABS: Platelet Estimate MKD DEC (ADEQ)
[2024-12-13] MEDS: Sotalol Hydrochloride 80 MG Tablet PO (09:28)
[2024-12-13] MEDS: Pantoprazole Sodium 40 MG in 0.9% Normal Saline (100mL MB+) 100 ML 330 MG IV ×2 (09:28→21:51)
[2024-12-13] MEDS: Sertraline 100 MG Tablet PO (09:28)
[2024-12-13] MEDS: Lidocaine 5% Patch 1 PATCH TOPICAL (09:29)
[2024-12-13] MEDS: Lactobacillis Acidophilus 1 CAP PO ×4 (09:29→21:51)
[2024-12-13 13:36] LABS: Pathologist Review Reviewed
--- NOTE | 2024-12-13 14:18 | PCM.PN.ID ---
Physical Exam Narrative Feeling better, no fever, no abd pain, no n/v/d, no cough Const alert and no apparent distress General Appearance: cooperative Resp normal air movement and clear to auscultation bilaterally Cardio regular rate and regular rhythm GI soft to palpation, non-tender and non-distended Skin no rashes or lesions noted ID ID: Route of nutrition/ use of supplements: [] Nutritional Intake: [] IV Site: [] Jay Catheter: [] Assessment & Plan Assessment/Plan (1) Neutropenic fever: PLAN: Stool panel neg. Port in place. On vanc/zosyn. Fever and neutropenia resolved. Ok for home with 3 days po augmentin 875mg bid. Will follow prn (2) Breast cancer metastasized to axillary lymph node:
--- NOTE | 2024-12-13 17:28 | PCM.PN.HOSP ---
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 Patient requires oxygen on ambulation, I have decided to recheck the patient's CBC in the morning to see if she requires more platelets. I talked to her oncologist (Dr. Marcelo Davey) by phone today and went over her medical care with him. Objective Data Objective Data Vital Signs: Vital Signs Temp Pulse Resp BP Pulse Ox O2 Del Method O2 Flow Rate 97.7 F L 79 16 150/62 H 94 Room Air 2 12/13/24 15:46 12/13/24 15:46 12/13/24 15:46 12/13/24 15:46 12/13/24 15:46 12/13/24 15:46 12/13/24 09:00 Oxygen Flow Rate (L/min) 2 Oxygen Delivery Method Room Air Weight: 62.9 kg Body Mass Index (BMI) 27.1 Intake & Output: Intake and Output for Last 24 Hours 12/11/24 12/12/24 12/13/24 23:59 23:59 23:59 Intake Total / 1420 / 1420 850 / 850 Balance 1420 / 1420 850 / 850 Lab / Micro Data 12/13/24 05:44 12/13/24 05:44 Labs: Laboratory Results - last 24 hr 12/12/24 22:38: Vancomycin Trough 7.6 12/13/24 05:44: WBC 1.8 L, RBC 2.64 L, Hgb 7.8 L, Hct 23.3 L, MCV 88.3, MCH 29.5, MCHC 33.5, RDW Std Deviation 43.8, RDW Coeff of Margareth 13.6, Plt Count 7 L*, MPV 9.3, Immature Gran % (Auto) 0.600, Neut % (Auto) 76.4 H, Lymph % (Auto) 19.0, [place] % (Auto) 3.4, Eos % (Auto) 0.0, Baso % (Auto) 0.6, Absolute Neuts (auto) 1.4 L, Absolute Lymphs (auto) 0.34 L, Nucleated RBC % 0, Diff Path Review Reviewed, Platelet Estimate MKD DEC, Sodium 136, Potassium 3.4, Chloride Direct 98, Carbon Dioxide 27.4, Anion Gap 10, BUN 7, Creatinine 0.6, Estim Creat Clear Calc 54.19, Est GFR (MDRD) Non-Af 98, BUN/Creatinine Ratio 11.6, Glucose 96, Calcium 7.8 Micro: Microbiology 12/08/24 21:00 Stool Ova and Parasites - Final 12/10/24 08:20 Blood Culture (Wb) - Anticubital Right Blood Culture - Preliminary No growth in 48 hours. 12/10/24 08:15 Blood Culture (Wb) - Anticubital Left Blood Culture - Preliminary No growth in 48 hours. 12/08/24 21:00 Stool Enteric Bacteriology - Final 12/08/24 21:00 Stool Clostridioides difficile (PCR) - Final 12/08/24 20:37 Mucosa - Nose SARS-CoV-2, Influenza & RSV (PCR) - Final Physical Exam Narrative alert, oriented x3, no apparent distress and average body habitus General Appearance: cooperative, well kempt and well developed Orientation / Consciousness: awake, oriented to person, oriented to place and oriented to time HEENT normocephalic, head/scalp atraumatic and moist oral mucous membranes Eyes PERRL, EOMs intact bilaterally and conjunctivae normal Neck supple, no JVD, thyroid normal and no carotid bruits General: trachea midline Resp normal respiratory effort, no retractions, no use of accessory muscles and clear to auscultation bilaterally Auscultation: Negative for rales, rhonchi or wheezes Cardio regular rate, regular rhythm, S1 normal heart sound, S2 normal heart sound, no rub and no gallops Cardio Narrative: There is a 2/6 systolic murmur noted at the apex and left sternal border GI normal to inspection, nondistended, normoactive bowel sounds, soft to palpation, non-tender and non-distended Extremity no clubbing, cyanosis or edema Skin no rashes or lesions noted General Skin Exam: no breakdown Neuro oriented x3, CN's II-XII intact bilaterally, moves all extremities, no focal motor deficits and no sensory deficits noted Sensorium / Orientation: awake and alert Speech: speech normal Psych affect normal Assessment & Plan Assessment/Plan (1) Neutropenic fever: PLAN: Plan 1. 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 Patient will need a walking pulse oximeter tomorrow #5 hypokalemia-corrected at this time Total clinical time spent by myself addressing the patient's medical issues, reviewing all of her data, and collaborating with patient's care team: 35 minutes Charges/Coding Visit Charges Inpatient E&M: 57576 Subs Hosp L2
[2024-12-13] MEDS: Amox/Clavulanate 875 MG Tablet PO (21:51)
[2024-12-13] MEDS: Atorvastatin Calcium 40 MG Tablet PO (21:51)
[2024-12-13] MEDS: 0.9% Saline Lock 10 ML Syringe IV (21:57)
[2024-12-13] MEDS: traZODone 100 MG Tablet PO (22:00)
[2024-12-14] VITALS (7 sets, daily range): BP systolic 139–158; BP diastolic 65–83; PULSE 87–96; RESP 18; TEMP 36.5–36.9; O2SAT 90–97; BMI 26.3
[2024-12-14 05:13] LABS: Absolute Lymphocyte Count 0.54 X10^3/uL (0.83-4.51); Absolute Neutrophil Count 0.8 X10^3/uL (2.0-7.7); Eosinophil# 0.01 X10^3/uL; Eosinophils% 0.7 % (0-5); Hemoglobin 8.7 g/dL (12.0-15.0); Lymphocyte # 0.54 X10^3/ul (0.83-4.51); Lymphocyte % 37.8 % (19-41); Mean Corp Hgb Conc 33.5 g/dL (32-36); Mean Corpuscular Hgb 28.9 pg (27.0-32.0); Mean Corpuscular Volume 86.4 fL (81-99); Monocyte# 0.09 X10^3/uL; Monocyte% 6.3 % (0-10); NRBC Flagged by Analyzer 0 % (0-5); Neutrophil # 0.78 X10^3/uL (2.7-7.7); Neutrophil % 54.5 % (47-70); POSITIVE COUNT YES; POSITIVE DIFFERENTIAL YES; POSITIVE MORPHOLOGY YES; RBC Distribution Width CV 13.3 % (11.6-14.6); RBC Distribution Width SD 42.4 fl (35.1-43.9); Red Blood Count 3.01 M/mm3 (4.2-5.4)
[2024-12-14 05:23] LABS: Platelet Count 18 K/mm3 (150-450); White Blood Count 1.4 K/mm3 (4.4-11.0)
[2024-12-14] MEDS: Lactobacillis Acidophilus 1 CAP PO ×4 (08:59→21:59)
[2024-12-14] MEDS: Sotalol Hydrochloride 80 MG Tablet PO (08:59)
[2024-12-14] MEDS: Sertraline 100 MG Tablet PO (08:59)
[2024-12-14] MEDS: Pantoprazole Sodium 40 MG in 0.9% Normal Saline (100mL MB+) 100 ML 330 MG IV ×2 (09:00→21:57)
[2024-12-14] MEDS: Ondansetron 4 MG/2 ML Vial IV (09:10)
--- NOTE | 2024-12-14 18:52 | PN.HOSP_ITS ---
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 Davey) did not recommend Granix, recommended checking the patient's CBC tomorrow morning. Patient was not able to take Augmentin because it bothers her stomach. Objective Data Objective Data Vital Signs: Vital Signs Temp Pulse Resp BP Pulse Ox O2 Del Method O2 Flow Rate 97.7 F L 87 18 139/65 H 92 Room Air 2 12/14/24 15:24 12/14/24 15:24 12/14/24 15:24 12/14/24 15:24 12/14/24 15:24 12/14/24 15:24 12/13/24 09:00 Oxygen Flow Rate (L/min) 2 Oxygen Delivery Method Room Air Weight: 61.1 kg Body Mass Index (BMI) 26.3 Intake & Output: Intake and Output for Last 24 Hours 12/12/24 12/13/24 12/14/24 23:59 23:59 23:59 Intake Total 1420 / 1420 1010 / 1010 970 / 970 Balance 1420 / 1420 1010 / 1010 970 / 970 Lab / Micro Data 12/14/24 04:36 12/13/24 05:44 Labs: Laboratory Results - last 24 hr 12/14/24 04:36: WBC 1.4 L*, RBC 3.01 L, Hgb 8.7 L, Hct 26.0 L, MCV 86.4, MCH 28.9, MCHC 33.5, RDW Std Deviation 42.4, RDW Coeff of Margareth 13.3, Plt Count 18 L*, MPV 11.0, Immature Gran % (Auto) 0.700, Neut % (Auto) 54.5, Lymph % (Auto) 37.8, [place] % (Auto) 6.3, Eos % (Auto) 0.7, Baso % (Auto) 0.0, Absolute Neuts (auto) 0.8 L, Absolute Lymphs (auto) 0.54 L, Nucleated RBC % 0, Differential Comment , Diff Path Review May foll Micro: Microbiology 12/08/24 21:00 Stool Ova and Parasites - Final 12/10/24 08:20 Blood Culture (Wb) - Anticubital Right Blood Culture - Preliminary No growth in 48 hours. 12/10/24 08:15 Blood Culture (Wb) - Anticubital Left Blood Culture - Preliminary No growth in 48 hours. 12/08/24 21:00 Stool Enteric Bacteriology - Final 12/08/24 21:00 Stool Clostridioides difficile (PCR) - Final 12/08/24 20:37 Mucosa - Nose SARS-CoV-2, Influenza & RSV (PCR) - Final Physical Exam Narrative alert, oriented x3, no apparent distress and average body habitus General Appearance: cooperative, well kempt and well developed Orientation / Consciousness: awake, oriented to person, oriented to place and oriented to time HEENT normocephalic, head/scalp atraumatic and moist oral mucous membranes Eyes PERRL, EOMs intact bilaterally and conjunctivae normal Neck supple, no JVD, thyroid normal and no carotid bruits General: trachea midline Resp normal respiratory effort, no retractions, no use of accessory muscles and clear to auscultation bilaterally Auscultation: Negative for rales, rhonchi or wheezes Cardio regular rate, regular rhythm, S1 normal heart sound, S2 normal heart sound, no rub and no gallops Cardio Narrative: There is a 2/6 systolic murmur noted at the apex and left sternal border GI normal to inspection, nondistended, normoactive bowel sounds, soft to palpation, non-tender and non-distended Extremity no clubbing, cyanosis or edema Skin no rashes or lesions noted General Skin Exam: no breakdown Neuro oriented x3, CN's II-XII intact bilaterally, moves all extremities, no focal motor deficits and no sensory deficits noted Sensorium / Orientation: awake and alert Speech: speech normal Psych affect normal Assessment & Plan Assessment/Plan (1) Neutropenic fever: PLAN: Plan 1. 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 Patient will need a walking pulse oximeter tomorrow #5 hypokalemia-corrected at this time Total clinical time spent by myself addressing the patient's medical issues, reviewing all of her data, and collaborating with patient's care team: 35 minutes Charges/Coding Visit Charges Inpatient E&M: 48751 Subs Hosp L2
[2024-12-14] MEDS: 0.9% Saline Lock 10 ML Syringe IV (21:57)
[2024-12-14] MEDS: Cefdinir 300 MG Capsule PO (21:59)
[2024-12-14] MEDS: Atorvastatin Calcium 40 MG Tablet PO (21:59)
[2024-12-14] MEDS: traZODone 100 MG Tablet PO (22:01)
[2024-12-15] VITALS (7 sets, daily range): BP systolic 122–149; BP diastolic 45–86; PULSE 80–94; RESP 16–18; TEMP 36.4–36.9; O2SAT 92–96; BMI 26.4
[2024-12-15 05:33] LABS: Absolute Lymphocyte Count 0.58 X10^3/uL (0.83-4.51); Absolute Neutrophil Count 0.4 X10^3/uL (2.0-7.7); Eosinophil# 0.01 X10^3/uL; Eosinophils% 0.8 % (0-5); Hematocrit 25.4 % (37-47); Hemoglobin 8.6 g/dL (12.0-15.0); Lymphocyte # 0.58 X10^3/ul (0.83-4.51); Lymphocyte % 49.2 % (19-41); Mean Corp Hgb Conc 33.9 g/dL (32-36); Mean Corpuscular Hgb 29.2 pg (27.0-32.0); Mean Corpuscular Volume 86.1 fL (81-99); Mean Platelet Vol. 13.6 fl (6.2-12.0); Monocyte# 0.23 X10^3/uL; Monocyte% 19.5 % (0-10); NRBC Flagged by Analyzer 0 % (0-5); Neutrophil # 0.36 X10^3/uL (2.7-7.7); Neutrophil % 30.5 % (47-70); POSITIVE COUNT YES; POSITIVE DIFFERENTIAL YES; POSITIVE MORPHOLOGY YES; RBC Distribution Width CV 13.2 % (11.6-14.6); RBC Distribution Width SD 41.5 fl (35.1-43.9); Red Blood Count 2.95 M/mm3 (4.2-5.4)
[2024-12-15 05:44] LABS: Differential Indicated SCAN CRITERIA MET; Platelet Count 15 K/mm3 (150-450); White Blood Count 1.2 K/mm3 (4.4-11.0)
[2024-12-15] MEDS: Lactobacillis Acidophilus 1 CAP PO ×2 (09:15→13:52)
[2024-12-15] MEDS: Cefdinir 300 MG Capsule PO (09:15)
[2024-12-15] MEDS: Sertraline 100 MG Tablet PO (09:15)
[2024-12-15] MEDS: 0.9% Saline Lock 10 ML Syringe IV (09:15)
[2024-12-15] MEDS: Sotalol Hydrochloride 80 MG Tablet PO (09:15)
[2024-12-15] MEDS: Pantoprazole Sodium 40 MG in 0.9% Normal Saline (100mL MB+) 100 ML 330 MG IV (09:15)
[2024-12-15 09:26] LABS: Pathologist Review Reviewed
[2024-12-15 09:33] LABS: Ovalocyte 1+; Platelet Estimate MKD DEC (ADEQ); Reactive Lymphocyte 2+
[2024-12-15 09:34] LABS: Polychromasia 1+
--- NOTE | 2024-12-15 13:57 | DCINST_ITS ---
Discharge Instructions Diet Discharge Diet: No restrictions DC O2, CPAP, BIPAP needs Home O2 Discharge instructions: No Dressing / Incision Discharge Activity: Return to Normal Activity Weight Bearing Status: Full weight bearing Follow Up Care Test Results: Test results from this visit will be discussed in further detail at your follow- up appointment, if applicable. Discharge Plan Admission Admit Date/Time: 12/10/24 12:12 Primary Reason for Your Visit: Neutropenic fever, pancytopenia Attending Provider: Guillaume Spring Primary Care Provider: Mayra Fallon Consulting Providers: Tere Price; Siva Subramanian; Gerson Renae Instructions Additional Instructions / Restrictions: Follow-up with your oncologist on Wednesday or Wednesday of next week to have a repeat CBC drawn Discharge Orders/Prescriptions Prescriptions: New cefdinir 300 mg Capsule 300 mg PO Q12 Qty: 7 0RF Continued aspirin 81 mg tablet,chewable 81 mg PO DAILY melatonin 10 mg capsule 10 mg PO HS PRN (Reason: sleep) calcium carbonate 600 mg calcium (1,500 mg) tablet 600 mg PO BID rosuvastatin 20 mg tablet 20 mg PO DAILY Qty: 90 3RF Rx Instructions: TAKE 1 TABLET BY MOUTH ONCE DAILY trazodone 100 mg tablet 100 mg PO QHS PRN (Reason: insomnia) Qty: 90 1RF sertraline 100 mg tablet 100 mg PO QDAY Qty: 90 2RF nitroglycerin 0.4 mg tablet, sublingual See Rx Instructions .ROUTE .COMPLEX Qty: 75 1RF Dose Instruction: DISSOLVE 1 TABLET UNDER TONGUE EVERY 5 MINUTES NEEDED FOR CHEST PAIN Rx Instructions: DISSOLVE 1 TABLET UNDER TONGUE EVERY 5 MINUTES NEEDED FOR CHEST PAIN amlodipine 10 mg tablet 10 mg PO QDAY Qty: 90 3RF (DME) handicap placard See Rx Instructions .Route .MEDSUPPLY Qty: 1 0RF Rx Instructions: placard for one year lisinopril 5 mg tablet 5 mg PO DAILY cholecalciferol (vitamin D3) [Vitamin D3] 50 mcg (2,000 unit) capsule 50 mcg PO DAILY sotalol [Betapace] 80 mg tablet 80 mg PO DAILY pantoprazole 40 mg tablet,delayed release (DR/EC) 40 mg PO BID Referrals / Follow Up: Mayra Fallon MD [Primary Care Provider] - Within 2 Weeks Disposition Disposition (needs filled in before D/C Order can be placed): Home, Self Care
--- NOTE | 2024-12-15 14:03 | PCM.DC.SUM ---
Providers Date of Admission: 12/10/24 Date of Discharge: 12/15/24 Primary Care Physician: Dr. Mayra Fallon MD Consultations 12/10/24 16:40 Consult: Infectious Disease Routine Consulting Provider: Siva Subramanian Reason for Consult: low grade fever, 100.3F, 1 TIME, ANC and plt low, had 2 doses of zosyn, D/C EMERGENT Consult: No MD Notified: Yes Date Notified: 12/10/24 Time Notified: 16:40 Method of Notification: Text Reason For Visit: N/V/D Diagnosis Discharge Diagnosis (1) Neutropenic fever: Status: Acute Code(s): D70.9 - Neutropenia, unspecified; R50.81 - Fever presenting with conditions classified elsewhere Plan 1. 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 Patient will need a walking pulse oximeter tomorrow #5 hypokalemia-corrected at this time #6 nausea, vomiting, and diarrhea secondary to chemotherapy Total clinical time spent by myself addressing the patient's medical issues, reviewing all of her data, and collaborating with patient's care team: 35 minutes Medications at Discharge Home Medications aspirin 81 mg chewable tablet 81 mg PO DAILY 11/23/17 melatonin 10 mg capsule 10 mg PO HS PRN sleep 11/23/17 calcium carbonate 600 mg PO BID 06/30/18 amlodipine 10 mg tablet 10 mg PO QDAY #90 tabs 05/11/24 nitroglycerin 0.4 mg sublingual tablet See Rx Instructions .Route .COMPLEX #75 tabs 05/11/24 rosuvastatin 20 mg tablet 20 mg PO DAILY #90 tabs 05/11/24 sertraline 100 mg tablet 100 mg PO QDAY #90 tabs 05/11/24 trazodone 100 mg tablet 100 mg PO QHS PRN insomnia #90 tabs 05/11/24 handicap placard #1 ea 09/01/24 cholecalciferol (vitamin D3) 50 mcg (2,000 unit) capsule (Vitamin D3) 50 mcg PO DAILY 12/08/24 lisinopril 5 mg tablet 5 mg PO DAILY 12/08/24 pantoprazole 40 mg tablet,delayed release 40 mg PO BID 12/08/24 sotalol 80 mg tablet (Betapace) 80 mg PO DAILY 12/08/24 cefdinir 300 mg capsule 300 mg PO Q12 #7 caps 12/15/24 Hospital Course Operations None Procedures None Summary of Care Provided Minutes Spent on Discharge: 31 Hospital Course: This 69-year-old white female was seen in the emergency room at [facility] with complaints of nausea and vomiting and diarrhea. Patient was undergoing chemotherapy for breast cancer. Workup in the emergency room included a CBC which showed a normal white blood cell count, hemoglobin was 9, platelet count was 27,000, sodium was low at 129, potassium was low at 3.4, creatinine was elevated at 1.19 and BUN was elevated at 21. Patient's urinalysis was unremarkable. Patient was admitted to PCU for persistent nausea vomiting and diarrhea, she was treated with IV fluids and labs were monitored. Within 48 hours, patient became pancytopenic and ran a temperature necessitating placing the patient on IV antibiotics. She was also seen in consultation by infectious diseases. Patient underwent platelet transfusions while hospitalized due to low platelet count, I had several discussions with the patient's oncologist who recommended not giving the patient Granix. Patient's symptoms resolved. On 12/15/2024, patient was seen and examined: On examination she appeared in good health and spirits, she does not appear to be in any distress. Vital signs as documented. Skin warm and dry and without overt rashes. Neck without JVD, thyroid appears normal, trachea is midline, neck is supple. Lungs clear, normal air movement was noted. Heart exam notable for regular rhythm, normal sounds and absence of murmurs, rubs or gallops. Abdomen unremarkable and without evidence of organomegaly, masses, or abdominal aortic enlargement, bowel sounds are present in all 4 quadrants, no abdominal tenderness was noted. Extremities nonedematous, no cyanosis was noted, no clubbing was noted. Neuro: Cranial nerves II through XII are grossly intact, no focal motor deficits were noted, sensation to light touch and pinprick is intact, motor exam 5/5 throughout. Psych: Patient is alert and oriented x3, she does not appear anxious or depressed, she does not appear agitated. Patient appeared stable for discharge home on 12/15/2024. Weight / BMI Weight Weight: 61.3 kg Body Mass Index (BMI) 26.4 ABG / Lab / Microbiology Data 12/15/24 04:36 12/13/24 05:44 Laboratory: Laboratory Results - last 24 hr 12/14/24 04:36: Diff Path Review Reviewed 12/15/24 04:36: WBC 1.2 L*, RBC 2.95 L, Hgb 8.6 L, Hct 25.4 L, MCV 86.1, MCH 29.2, MCHC 33.9, RDW Std Deviation 41.5, RDW Coeff of Margareth 13.2, Plt Count 15 L*, MPV 13.6 H, Immature Gran % (Auto) 0.000, Neut % (Auto) 30.5 L, Lymph % (Auto) 49.2 H, [place] % (Auto) 19.5 H, Eos % (Auto) 0.8, Baso % (Auto) 0.0, Absolute Neuts (auto) 0.4 L, Absolute Lymphs (auto) 0.58 L, Nucleated RBC % 0, Diff Path Review May foll, Reactive Lymphocytes 2+, Platelet Estimate MKD DEC, Polychromasia 1+, Ovalocytes 1+ 12/15/24 06:20: Blood Type B POSITIVE Microbiology: Microbiology 12/10/24 08:20 Blood Culture (Wb) - Anticubital Right Blood Culture - Final No growth in 5 days. 12/10/24 08:15 Blood Culture (Wb) - Anticubital Left Blood Culture - Final No growth in 5 days. 12/08/24 21:00 Stool Ova and Parasites - Final 12/08/24 21:00 Stool Enteric Bacteriology - Final 12/08/24 21:00 Stool Clostridioides difficile (PCR) - Final 12/08/24 20:37 Mucosa - Nose SARS-CoV-2, Influenza & RSV (PCR) - Final D/C Instructions Discharge Diet: No restrictions Weight Bearing Status: Full weight bearing DC O2, CPAP, BIPAP Needs Home O2 Discharge instructions: No Meaningful Use Info Meaningful Use Meaningful Use Diagnoses (Choose all that apply): None applicable Ischemic Stroke Statin Dosing Therapy Reference: STATIN DOSE THERAPY REFERENCE: * Patients > 75 years receive moderate or high dose statin therapy. * Patients 75 years or YOUNGER should receive HIGH intensity statin dose unless contraindicated. You will be required to document reason for non-treatment if statin daily dose does not meet guidelines. HIGH DOSE STATIN THERAPY DAILY Atorvastatin > than or = to 40 mg Rosuvastatin > than or = to 20 mg Amlodipine + Atorvastatin > than or = to 2.5/40 mg Ezetimibe + Simvastatin 10/80 mg Simvastatin 80mg Discharge Plan Admission Admit Date/Time: 12/10/24 12:12 Primary Reason for Your Visit: Neutropenic fever, pancytopenia Attending Provider: Guillaume Spring Primary Care Provider: Mayra Fallon Consulting Providers: Tere Price; Siva Subramanian; Gerson Renae Instructions Additional Instructions / Restrictions: Follow-up with your oncologist on Wednesday or Wednesday of next week to have a repeat CBC drawn Discharge Orders/Prescriptions Prescriptions: New cefdinir 300 mg Capsule 300 mg PO Q12 Qty: 7 0RF Continued aspirin 81 mg tablet,chewable 81 mg PO DAILY melatonin 10 mg capsule 10 mg PO HS PRN (Reason: sleep) calcium carbonate 600 mg calcium (1,500 mg) tablet 600 mg PO BID rosuvastatin 20 mg tablet 20 mg PO DAILY Qty: 90 3RF Rx Instructions: TAKE 1 TABLET BY MOUTH ONCE DAILY trazodone 100 mg tablet 100 mg PO QHS PRN (Reason: insomnia) Qty: 90 1RF sertraline 100 mg tablet 100 mg PO QDAY Qty: 90 2RF nitroglycerin 0.4 mg tablet, sublingual See Rx Instructions .ROUTE .COMPLEX Qty: 75 1RF Dose Instruction: DISSOLVE 1 TABLET UNDER TONGUE EVERY 5 MINUTES NEEDED FOR CHEST PAIN Rx Instructions: DISSOLVE 1 TABLET UNDER TONGUE EVERY 5 MINUTES NEEDED FOR CHEST PAIN amlodipine 10 mg tablet 10 mg PO QDAY Qty: 90 3RF (DME) handicap placard See Rx Instructions .Route .MEDSUPPLY Qty: 1 0RF Rx Instructions: placard for one year lisinopril 5 mg tablet 5 mg PO DAILY cholecalciferol (vitamin D3) [Vitamin D3] 50 mcg (2,000 unit) capsule 50 mcg PO DAILY sotalol [Betapace] 80 mg tablet 80 mg PO DAILY pantoprazole 40 mg tablet,delayed release (DR/EC) 40 mg PO BID Referrals / Follow Up: Mayra Fallon MD [Primary Care Provider] - 12/22/24 11:00 am (Appointment is with VANNESSA Ruiz) Disposition Disposition (needs filled in before D/C Order can be placed): Home, Self Care Charges/Coding Visit Charges Inpatient E&M: 35426 Disch Hosp >30min
[2025-01-01 10:35] LABS: Pathologist Review Reviewed
== END 2024-12-15 15:42 | disposition home or self-care (01) | DRG 809 ==
LOC: ED 12-09 00:12 → PCU 12-09 01:20
PROVIDERS: Internal Medicine; Admitting Provider Family Medicine; Emergency Provider Surgery; PCP Internal Medicine; Visit Provider Internal Medicine
DX: D61.810 Antineoplastic chemotherapy induced pancytopenia (principal); K52.1 Toxic gastroenteritis and colitis; E87.1 Hypo-osmolality and hyponatremia; C79.51 Secondary malignant neoplasm of bone; C77.3 Secondary and unspecified malignant neoplasm of axilla and upper limb lymph nodes; J70.1 Chronic and other pulmonary manifestations due to radiation; J98.11 Atelectasis; D70.9 Neutropenia, unspecified; K12.32 Oral mucositis (ulcerative) due to other drugs; I48.0 Paroxysmal atrial fibrillation; E86.0 Dehydration; N18.31 Chronic kidney disease, stage 3a; I12.9 Hypertensive chronic kidney disease with stage 1 through stage 4 chronic kidney disease, or unspecified chronic kidney disease; Z95.3 Presence of xenogenic heart valve; C50.919 Malignant neoplasm of unspecified site of unspecified female breast; E87.6 Hypokalemia; E87.8 Other disorders of electrolyte and fluid balance, not elsewhere classified; E78.5 Hyperlipidemia, unspecified; I25.10 Atherosclerotic heart disease of native coronary artery without angina pectoris; K21.9 Gastro-esophageal reflux disease without esophagitis; R09.02 Hypoxemia; R50.81 Fever presenting with conditions classified elsewhere; G89.29 Other chronic pain; T45.1X5A Adverse effect of antineoplastic and immunosuppressive drugs, initial encounter; Z11.52 Encounter for screening for COVID-19; Z79.82 Long term (current) use of aspirin; Z79.02 Long term (current) use of antithrombotics/antiplatelets; Z87.891 Personal history of nicotine dependence; Z92.21 Personal history of antineoplastic chemotherapy; Z95.1 Presence of aortocoronary bypass graft; Z95.810 Presence of automatic (implantable) cardiac defibrillator; Z86.73 Personal history of transient ischemic attack (TIA), and cerebral infarction without residual deficits
CPT/HCPCS: 36415; 36591; 71046; 74177; 80048; 80053; 80076; 80202; 81001; 82962; 83605; 83690; 83735; 84100; 84145; 84484; 85025; 86900; 86901; 86965; 87040; 87177; 87209; 87493; 87506; 87631; 93005; 94668; 99285; P9035; Q9967; A4216; J1447; J2405

== ENCOUNTER → 2024-12-22 | Outpatient (CLI) | payer MEDICARE, MEDICAID, SELFPAY ==
[2024-12-22 15:40] LABS: Absolute Lymphocyte Count 1.29 X10^3/uL (0.83-4.51); Absolute Neutrophil Count 1.8 X10^3/uL (2.0-7.7); Basophil# 0.01 X10^3/uL; Basophil% 0.3 % (0-1); Eosinophil# 0.08 X10^3/uL; Eosinophils% 2.1 % (0-5); Hemoglobin 10.6 g/dL (12.0-15.0); Lymphocyte # 1.29 X10^3/ul (0.83-4.51); Lymphocyte % 33.7 % (19-41); Mean Corp Hgb Conc 32.1 g/dL (32-36); Mean Corpuscular Volume 90.4 fL (81-99); Mean Platelet Vol. 10.1 fl (6.2-12.0); Monocyte# 0.63 X10^3/uL; Monocyte% 16.4 % (0-10); NRBC Flagged by Analyzer 0 % (0-5); Neutrophil # 1.79 X10^3/uL (2.7-7.7); Neutrophil % 46.7 % (47-70); Platelet Count 266 K/mm3 (150-450); RBC Distribution Width CV 14.5 % (11.6-14.6); RBC Distribution Width SD 45.1 fl (35.1-43.9); Red Blood Count 3.65 M/mm3 (4.2-5.4); White Blood Count 3.8 K/mm3 (4.4-11.0)
[2024-12-22 16:19] LABS: ALB/GLOB Ratio 1.3 RATIO (0.9-2.4); AST(SGOT) 37 U/L (<=31); Alanine Aminotransfer ALT/SGPT 39 U/L (<=34); Albumin, Serum 4.1 g/dL (3.4-4.8); Alkaline Phosphatase 211 U/L (35-104); Anion Gap 12 (5-15); BUN 7 mg/dL (4-19); BUN/Creat Ratio 10.7 RATIO (10-20); Calcium,Total 8.9 mg/dL (7.6-11.0); Carbon Dioxide 29.9 mmol/L (21.0-32.0); Chloride 97 mmol/L (98-108); EST Glomerular Filtration Rate 93 (>60); Globulin 3.2 g/dL (2.2-4.2); Glucose 102 mg/dL (70-99); Potassium 3.6 mmol/L (3.3-5.1); Protein, Total 7.3 g/dL (5.9-8.4); Sodium Level 138 mmol/L (133-145); Total Bilirubin 0.41 mg/dL (0.00-1.30)
== END | disposition home or self-care (01) ==
LOC: BIMLAB 11:51
PROVIDERS: Physician Assistant; PCP Internal Medicine; Referring Provider Internal Medicine; Visit Provider Internal Medicine
DX: D61.818 Other pancytopenia (principal); I10 Essential (primary) hypertension
CPT/HCPCS: 36415; 80053; 85025

== ENCOUNTER → 2025-02-06 | Outpatient (CLI) | payer MEDICARE, MEDICAID, SELFPAY ==
[2025-02-06 16:02] LABS: Hematocrit 29.3 % (37-47); Hemoglobin 9.9 g/dL (12.0-15.0); Mean Corp Hgb Conc 33.8 g/dL (32-36); Mean Corpuscular Hgb 30.8 pg (27.0-32.0); Mean Corpuscular Volume 91.3 fL (81-99); Mean Platelet Vol. 10.1 fl (6.2-12.0); POSITIVE COUNT YES; Platelet Count 91 K/mm3 (150-450); RBC Distribution Width CV 15.2 % (11.6-14.6); RBC Distribution Width SD 51.4 fl (35.1-43.9); Red Blood Count 3.21 M/mm3 (4.2-5.4); White Blood Count 3.3 K/mm3 (4.4-11.0)
[2025-02-06 16:56] LABS: Erythrocyte Sedimentation Rate 19 mm/hr (0-30)
[2025-02-06 17:16] LABS: Scan Indicated on CBC? Y/N YES- FLAGS NOTED
[2025-02-08 14:08] LABS: ANTINUCLEAR ANTIBODIES DIRECT Positive (Negative); Anti-Centromere B Ab <0.2 AI (0.0-0.9); Anti-Chromatin <0.2 AI (0.0-0.9); Anti-Jo <0.2 AI (0.0-0.9); Anti-Scleroderma-70 AB <0.2 AI (0.0-0.9); Anti-dsDNA Ab <1 IU/mL (0-9); RNP Ab <0.2 AI (0.0-0.9); SJOGREN'S Anti-SS-A test 5.3 AI (0.0-0.9); SJOGREN'S Anti-SS-B test 0.4 AI (0.0-0.9); Smith Ab <0.2 AI (0.0-0.9)
[2025-02-08 15:08] LABS: Cytoplasmic Ab (C-ANCA) <1:20 titer (Neg:<1:20); Perinuclear Ab (P-ANCA) <1:20 titer (Neg:<1:20)
== END | disposition home or self-care (01) ==
LOC: BIMLAB 13:44
PROVIDERS: PCP Internal Medicine; Referring Provider Physician Assistant; Visit Provider Physician Assistant
DX: I77.6 Arteritis, unspecified (principal); D61.818 Other pancytopenia
CPT/HCPCS: 36415; 85027; 85652; 86037; 86038; 86140; 86225; 86235

== ENCOUNTER 2025-04-18 16:20 | Emergency (ER) | payer MEDICARE, MEDICAID, SELFPAY ==
[2025-04-18 16:20] VITALS: BP 122/55; PULSE 92; RESP 18; TEMP 36.4; O2SAT 97; BMI 22.8
[2025-04-18 17:11] LABS: Hematocrit 28.0 % (37-47); Hemoglobin 9.6 g/dL (12.0-15.0); Immature Granulocytes Count 0.030 X10^3/uL (0.0-0.0); Mean Corp Hgb Conc 34.3 g/dL (32-36); Mean Corpuscular Volume 92.1 fL (81-99); Mean Platelet Vol. 10.4 fl (6.2-12.0); NRBC Flagged by Analyzer 0 % (0-5); Platelet Count 121 K/mm3 (150-450); RBC Distribution Width CV 14.6 % (11.6-14.6); RBC Distribution Width SD 48.8 fl (35.1-43.9); Red Blood Count 3.04 M/mm3 (4.2-5.4); White Blood Count 7.2 K/mm3 (4.4-11.0)
[2025-04-18 18:06] VITALS: BP 109/54; BP 122/63; BP 127/57; PULSE 64; PULSE 67; PULSE 77
--- NOTE | 2025-04-18 18:06 | CT_ITS ---
PROCEDURE: BRAIN/HEAD WITHOUT CONTRAST 04/18/2025 REASON FOR EXAM: DIZZINESS, HISTORY OF PRIOR CEREBELLAR STROKE TECHNIQUE: BRAIN/HEAD WITHOUT CONTRAST Coronal and Sagittal reconstruction series were provided. One or more dose reduction techniques were used (e.g., Automated exposure control, adjustment of the mA and/or kV according to patient size, use of iterative reconstruction technique. RADIATION DOSE SUMMARY: CTDlvol: 44.99 mGy DLP: 12.98 mGycm COMPARISON: None. FINDINGS: Mild global parenchymal atrophy. Chronic microvascular ischemia. Right occipital lobe encephalomalacia. No evidence of acute hemorrhage or infarction. No extra-axial blood or fluid collections. The paranasal sinuses and mastoid air cells are clear. The calvarial vault and skull base are intact. CT/Brain/Head without Contrast IMPRESSION: No acute intracranial abnormalities. Chronic and ancillary findings as above. Reading Location: [place] [id number]
[2025-04-18 18:07] LABS: AST(SGOT) 48 U/L (<=31); Alanine Aminotransfer ALT/SGPT 40 U/L (<=34); Albumin, Serum 3.7 g/dL (3.4-4.8); Alkaline Phosphatase 180 U/L (35-104); Anion Gap 10 (5-15); BUN 9 mg/dL (4-19); BUN/Creat Ratio 12.5 RATIO (10-20); Calcium,Total 8.6 mg/dL (7.6-11.0); Carbon Dioxide 24.4 mmol/L (21.0-32.0); Chloride 92 mmol/L (98-108); Estimated Creatinine Clearance 46.33 ml/min (50-250); Globulin 2.8 g/dL (2.2-4.2); Glucose 110 mg/dL (70-99); Potassium 3.7 mmol/L (3.3-5.1)
[2025-04-18 18:20] VITALS: BP 133/66; PULSE 67; RESP 21; O2SAT 97
--- NOTE | 2025-04-18 19:29 | EX.ED.DYSGE1 ---
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 She receives chemo every other week. She presents because of dizziness. Without prompting she is instead lightheaded. Upon further questioning there is a component where she feels her balance is off and she does not describe vertigo with her or the room spinning. She does have altered vision left eye due to prior stroke. She stated she was concerned she may have had a TIA. She is not on aspirin. She denies change in her vision from prior. She denies double vision. Presently she has no symptoms. She denies headache. Denies trouble with speech or swallowing. She denies numbness, tingling, weakness in her upper or lower extremities. Patient was seen on February 06 and diagnosed with vasculitis. This was involving the anterior aspect of her lower extremities. There was no obvious rash noted per the PA. Patient was seen April 05 by nurse practitioner Claudia Rubio. She was seen for dizziness. She states it was worse the 2 days prior to her visit and this has been an ongoing issue for months. Review of systems indicated positive for headache under the ENT portion. She documented no blurred vision however patient states this is chronic. No cerebellar testing was done at that time. Discharge summary authored by was admitted November of this year. She was admitted for neutropenic fever. Discharge summary authored by Dr. Guillaume Spring was reviewed. Prior similar symptoms: Yes Recent Illness/Hospitalization: Yes [facility] Medical History Neutropenic fever Gastroenteritis Breast cancer metastasized to axillary lymph node Nontraumatic psoas hematoma Hyperbilirubinemia Severe anemia Non-ST elevation VT (NSTEMI) Rhabdomyolysis Thrombocytopenia CAD (coronary artery disease) Chronic pain Atrial fibrillation ICD (implantable cardioverter-defibrillator) in place Urinary urgency Metastasis to bone Regional lymph node metastasis present Invasive ductal carcinoma of breast Aortic valve regurgitation due to aortic dilation Breast nodule Abnormal findings on imaging test Breast mass, right Skin mole Left knee pain Anxiety and depression Diarrhea Major depressive disorder, recurrent Health care maintenance Flu vaccine need Skin tags, multiple acquired Left hand pain History of cyst of breast History of stroke Heart valve problem GERD (gastroesophageal reflux disease) Hyperlipemia Hypertension Home Medications ?Medication ?Instructions ?Recorded ?Last Taken ?Type aspirin 81 mg chewable tablet 81 mg PO DAILY 11/23/17 06/03/24 History melatonin 10 mg capsule 10 mg PO HS PRN sleep 11/23/17 06/03/24 History calcium carbonate 600 mg PO BID 06/30/18 06/03/24 History amlodipine 10 mg tablet 10 mg PO QDAY #90 tabs 05/11/24 06/03/24 Rx nitroglycerin 0.4 mg sublingual See Rx Instructions .Route 05/11/24 Unknown Rx tablet .COMPLEX #75 tabs rosuvastatin 20 mg tablet 20 mg PO DAILY #90 tabs 05/11/24 06/03/24 Rx sertraline 100 mg tablet 100 mg PO QDAY #90 tabs 05/11/24 06/03/24 Rx handicap placard #1 ea 09/01/24 Unknown Rx cholecalciferol (vitamin D3) 50 50 mcg PO DAILY 12/08/24 Unknown History mcg (2,000 unit) capsule (Vitamin D3) pantoprazole 40 mg tablet,delayed 40 mg PO BID 12/08/24 Unknown History release sotalol 80 mg tablet (Betapace) 80 mg PO DAILY 12/08/24 Unknown History cephalexin 500 mg capsule 500 mg PO Q12H #14 caps 02/06/25 Unknown Rx prednisone 10 mg tablet 10 mg PO DIRECTED #30 tabs 02/06/25 Unknown Rx trazodone 100 mg tablet 100 mg PO QHS PRN insomnia #90 tabs 02/19/25 Unknown Rx lisinopril 40 mg tablet 40 mg PO DAILY 04/18/25 Unknown History Allergy/AdvReac Type Severity Reaction Status Date / Time No Known Allergies Allergy Verified 04/18/25 16:22 Family History Mother CVA (cerebral vascular accident) Breast cancer, Onset Age: 35 Father Heart disease Sister Breast cancer, Onset Age: 50 Heart disease Hypertension Cancer lung Surgical History History of coronary artery bypass graft x 3 History of hysterectomy Cardiac defibrillator in place 4 stents cardiac rythem pacemaker triple bypass, valve replacement, nad aneurysm repair History of tonsillectomy Social History household members: none Smoking Status: Former smoker Tobacco: How many years used: 20 how long ago did patient quit smokin alcohol intake: never substance use type: does not use what type of physical activity do you participate in: none ROS ROS ED Constitutional Constitutional ED: Denies chills, fever(s), subjective, sweats or weight loss Eyes Eyes: Reports blurry vision left (Chronic per patient); Denies change in vision or diplopia ENT ENT ED: Denies ear pain, rhinorrhea or sore throat Cardiovascular Cardiovascular: Denies chest pain, orthopnea, palpitations, paroxysmal nocturnal dyspnea or racing heartbeat Respiratory/Chest Respiratory/Chest: Denies cough, dyspnea, dyspnea on exertion, orthopnea or paroxysmal nocturnal dyspnea Gastrointestinal Gastrointestinal: Reports nausea, vomiting and other Details: Vomited 3 times on Wednesday. No coffee grounds or hematemesis. ; Denies abdominal pain, constipation, diarrhea or melena Genitourinary Genitourinary ED: Denies dysuria, hematuria or urinary frequency Musculoskeletal Musculoskeletal: Denies arthralgias, back pain or myalgias Integumentary Denies abscess, Abrasions or rash Neurologic Neurologic: Denies headache(s), paresthesias or weakness Psychiatric Psychiatric: Denies anxiety or depression Endocrine Endocrinology: Denies cold intolerance or heat intolerance Hematologic/Lymphatic Hematologic/Lymphatic: Reports systems reviewed and no addt'l complaints, except as documented EXAM Physical Exam Const Vital Signs: 04/18/25 16:20 04/18/25 17:20 04/18/25 18:06 Temperature 97.5 F L Temperature Source Temporal Pulse Rate 92 Pulse Rate [Lying] 64 Pulse Rate [Sitting (for 1 minute prior to obtaining)] 67 Pulse Rate [Standing (for 1 minute prior to obtaining)] 77 Respiratory Rate 18 Respiratory Effort Normal Non-Labored Respiratory Depth Normal Respiratory Pattern Normal Blood Pressure 122/55 H Blood Pressure [Lying] 122/63 H Blood Pressure [Sitting (for 1 minute prior to obtaining)] 127/57 H Blood Pressure [Standing (for 1 minute prior to obtaining)] 109/54 L Blood Pressure Mean 77 Blood Pressure Mean [Lying] 82 Blood Pressure Mean [Sitting (for 1 minute prior to obtaining)] 80 Blood Pressure Mean [Standing (for 1 minute prior to obtaining)] 72 Pulse Ox 97 Oxygen Delivery Method Room Air Room Air 04/18/25 18:20 04/18/25 20:16 Temperature Temperature Source Pulse Rate 67 70 Pulse Rate [Lying] Pulse Rate [Sitting (for 1 minute prior to obtaining)] Pulse Rate [Standing (for 1 minute prior to obtaining)] Respiratory Rate 21 H 16 Respiratory Effort Respiratory Depth Respiratory Pattern Blood Pressure 133/66 H 133/63 H Blood Pressure [Lying] Blood Pressure [Sitting (for 1 minute prior to obtaining)] Blood Pressure [Standing (for 1 minute prior to obtaining)] Blood Pressure Mean 88 86 Blood Pressure Mean [Lying] Blood Pressure Mean [Sitting (for 1 minute prior to obtaining)] Blood Pressure Mean [Standing (for 1 minute prior to obtaining)] Pulse Ox 97 98 Oxygen Delivery Method Room Air Room Air Orthostatic vital signs were normal. Positive well nourished and well developed General Appearance ED: well developed and NAD; Negative for cyanotic, diaphoretic or pallor HEENT Reports moist mucous membranes HEENT Narrative: Ears normal. TMs normal. Nares patent. Uvula midline. No deviation tongue or protrusion. Eyes PERRL and EOMs intact bilaterally General Eye ED: Yes pale conjunctiva; Negative for scleral icterus Neck no lymphadenopathy, supple and no JVD Resp normal respiratory effort and clear to auscultation bilaterally Cardio regular rate, regular rhythm, S1 normal heart sound, S2 normal heart sound and no murmurs GI normal to inspection, nondistended, normoactive bowel sounds, non-tender, non-distended and no masses; Negative for hepatosplenomegaly Back/Spine no CVA tenderness Extremity normal to inspection General Extremety ED: Negative for edema or tenderness General Extremity: Negative for edema Neuro oriented x3, CN's II-XII intact bilaterally and no sensory deficits noted Neuro Narrative: There is no dysmetria. There is no nystagmus. She does have blurred vision left eye. Sensorium / Orientation: alert Motor Exam: strength 5/5 throughout Skin no rashes or lesions noted, no wounds and skin turgor normal General Skin Exam: Negative for elasticity normal, jaundice or pallor MDM MDM MDM Narrative Medical decision making narrative: Patient with dizziness for months this may represent orthostatic hypotension, autonomic dysfunction, doubt TIA since and only lasts seconds up to a minute at most. Since patient appears pale will obtain H&H and compare to prior. Lab Data Lab results narrative: CBC reveals an H&H of 9.6 and 28.0. This is approximately her baseline. Electrolyte panel is remarkable for hyponatremia and hypochloremia. Her BUN and creatinine are unremarkable. Glucose is slightly elevated. Prior electrolyte panel was obtained December 22, 2024. That time her sodium was 138. Labs: Laboratory Results - last 24 hr 04/18/25 17:02 WBC 7.2 RBC 3.04 L Hgb 9.6 L Hct 28.0 L MCV 92.1 MCH 31.6 MCHC 34.3 RDW Std Deviation 48.8 H RDW Coeff of Margareth 14.6 Plt Count 121 L MPV 10.4 Immature Gran % (Auto) 0.400 Neut % (Auto) 76.0 H Lymph % (Auto) 17.7 L [place] % (Auto) 4.8 Eos % (Auto) 1.0 Baso % (Auto) 0.1 Absolute Neuts (auto) 5.5 Absolute Lymphs (auto) 1.28 Nucleated RBC % 0 Sodium 127 L Potassium 3.7 Chloride 92 L Carbon Dioxide 24.4 Anion Gap 10 BUN 9 Creatinine 0.73 Estim Creat Clear Calc 46.33 L Est GFR (MDRD) Non-Af 88 BUN/Creatinine Ratio 12.5 Glucose 110 H Calcium 8.6 Total Bilirubin 0.49 AST 48 H ALT 40 H Alkaline Phosphatase 180 H Total Protein 6.5 Albumin 3.7 Globulin 2.8 Albumin/Globulin Ratio 1.3 Radiography Diagnostic Testing: Clinical Impression(s) from Imaging Studies Brain CT 04/18/25 18:06 IMPRESSION: No acute intracranial abnormalities. Chronic and ancillary findings as above. Reading Location: [place] [address] report was read. Treatment and Re-Evaluation :: Patient was informed of her results. Patient was informed the cause of her dizziness is unknown. Since has been going on for months we will discharge to home. Discharge Plan Triage Chief Complaint: Shortness of Breath ED Provider: Benito Jefferson Dx/Rx/DC Orders Clinical Impression: Dizziness, nonspecific, Hypertension, Hyperlipemia, Borderline type 2 diabetes mellitus, Breast mass, right, Light-headedness, Anemia Instructions: ED Dizziness, Uncertain Cause Prescriptions: No Action aspirin 81 mg tablet,chewable 81 mg PO DAILY melatonin 10 mg capsule 10 mg PO HS PRN (Reason: sleep) calcium carbonate 600 mg calcium (1,500 mg) tablet 600 mg PO BID rosuvastatin 20 mg tablet 20 mg PO DAILY Qty: 90 3RF Rx Instructions: TAKE 1 TABLET BY MOUTH ONCE DAILY sertraline 100 mg tablet 100 mg PO QDAY Qty: 90 2RF nitroglycerin 0.4 mg tablet, sublingual See Rx Instructions .ROUTE .COMPLEX Qty: 75 1RF Dose Instruction: DISSOLVE 1 TABLET UNDER TONGUE EVERY 5 MINUTES NEEDED FOR CHEST PAIN Rx Instructions: DISSOLVE 1 TABLET UNDER TONGUE EVERY 5 MINUTES NEEDED FOR CHEST PAIN amlodipine 10 mg tablet 10 mg PO QDAY Qty: 90 3RF (DME) handicap placard See Rx Instructions .Route .MEDSUPPLY Qty: 1 0RF Rx Instructions: placard for one year prednisone 10 mg tablet 10 mg PO DIRECTED Qty: 30 0RF Rx Instructions: see taper instructions: 5 tabs x 2 days, 4 tabs x 2 days, 3 tabs x 2 days, 2 tabs x 2 days, 1 tab x 2 days. cephalexin 500 mg capsule 500 mg PO Q12H Qty: 14 0RF cholecalciferol (vitamin D3) [Vitamin D3] 50 mcg (2,000 unit) capsule 50 mcg PO DAILY sotalol [Betapace] 80 mg tablet 80 mg PO DAILY pantoprazole 40 mg tablet,delayed release (DR/EC) 40 mg PO BID lisinopril 40 mg tablet 40 mg PO DAILY trazodone 100 mg tablet 100 mg PO QHS PRN (Reason: insomnia) Qty: 90 1RF Primary Care Provider: Mayra Fallon Referrals: Mayra Fallon MD [Primary Care Provider] - 1 Week Print Language: Frisian Disposition Disposition: Home, Self Care
[2025-04-18 20:16] VITALS: BP 133/63; PULSE 70; RESP 16; O2SAT 98
[2025-04-18 21:57] VITALS: BP 133/63; PULSE 70; RESP 16; TEMP 36.7; O2SAT 98
== END 2025-04-18 21:57 | disposition home or self-care (01) ==
PROVIDERS: Emergency Provider Emergency Medicine; PCP Internal Medicine; Referring Provider Emergency Medicine; Visit Provider Emergency Medicine
DX: R42 Dizziness and giddiness (principal); R06.02 Shortness of breath; I25.10 Atherosclerotic heart disease of native coronary artery without angina pectoris; N63.10 Unspecified lump in the right breast, unspecified quadrant; I10 Essential (primary) hypertension; E78.5 Hyperlipidemia, unspecified; D69.6 Thrombocytopenia, unspecified; D64.9 Anemia, unspecified; R73.03 Prediabetes; I69.398 Other sequelae of cerebral infarction; H53.8 Other visual disturbances; E87.8 Other disorders of electrolyte and fluid balance, not elsewhere classified; E87.1 Hypo-osmolality and hyponatremia; Z79.82 Long term (current) use of aspirin; Z79.899 Other long term (current) drug therapy; Z87.891 Personal history of nicotine dependence; Z85.3 Personal history of malignant neoplasm of breast; Z95.810 Presence of automatic (implantable) cardiac defibrillator; Z95.1 Presence of aortocoronary bypass graft
CPT/HCPCS: 36591; 70450; 80053; 85025; 99285; A4216

== ENCOUNTER 2025-08-27 13:36 | Inpatient (IN) | payer MEDICARE, MEDICAID, SELFPAY ==
[2025-08-27] VITALS (35 sets, daily range): BP systolic 104–165; BP diastolic 54–130; PULSE 62–82; RESP 16–28; TEMP 36.1–36.8; O2SAT 66–98; BMI 23.4; BMI 22.6
--- NOTE | 2025-08-27 14:03 | RAD_ITS ---
PROCEDURE: CHEST 1 VIEW (PORTABLE) 08/27/2025 REASON FOR EXAM: DYSPNEA TECHNIQUE: Frontal view of the chest. COMPARISON: 12/08/24 FINDINGS: Right chest port, left chest pacer, cardiac valve repairs, and median sternotomy wires. Mild pulmonary edema. no focal consolidation. Trace right base effusion. No pneumothorax, Stable mild cardiomegaly. No acute fractures. RAD/Chest 1 View (Portable) IMPRESSION: Mild pulmonary edema. no focal consolidation. Trace right base effusion. Mild cardiomegaly. Reading Location: [facility]
--- NOTE | 2025-08-27 14:03 | EKG12_ITS ---
Test Reason : Blood Pressure : */* mmHG Vent. Rate : 63 BPM Atrial Rate : 258 BPM P-R Int : * ms QRS Dur : 96 ms QT Int : 460 ms P-R-T Axes : -4 5 96 degrees QTcB Int : 470 ms Normal sinus rhythm Cannot rule out Septal infarct , age undetermined Abnormal ECG Confirmed by Ellis Jung ([id number]), acquisition editor TIM HENRIQUEZ ([id number]) on 08/29/2025 10:50:08 AM Referred By: Confirmed By: Ellis Jung
--- NOTE | 2025-08-27 14:04 | EX.ED.DYSGE1 ---
HPI History of Present Illness Chief Complaint: Chest Pain Detail of Chief Complaint: Shortness of breath Informant: patient Narrative Narrative: Patient presents to the emergency department complaint shortness of breath that started last evening. She describes some chest heaviness and pressure when she lays flat. Denies fever or cough. She has history of prior CABG and history of coronary artery disease. Currently being treated for metastatic breast cancer and her last chemo was about 2 weeks ago. She has history of A-fib and is currently not anticoagulated. No history of PE or DVT. [facility] Medical History Breast cancer Anorexia Neutropenic fever Gastroenteritis Breast cancer metastasized to axillary lymph node Nontraumatic psoas hematoma Hyperbilirubinemia Severe anemia Non-ST elevation OR (NSTEMI) Rhabdomyolysis Thrombocytopenia CAD (coronary artery disease) Chronic pain Atrial fibrillation ICD (implantable cardioverter-defibrillator) in place Urinary urgency Metastasis to bone Regional lymph node metastasis present Invasive ductal carcinoma of breast Aortic valve regurgitation due to aortic dilation Breast nodule Abnormal findings on imaging test Breast mass, right Skin mole Left knee pain Anxiety and depression Diarrhea Major depressive disorder, recurrent Health care maintenance Flu vaccine need Skin tags, multiple acquired Left hand pain History of cyst of breast History of stroke Heart valve problem GERD (gastroesophageal reflux disease) Hyperlipemia Hypertension Home Medications ?Medication ?Instructions ?Recorded ?Last Taken ?Type aspirin 81 mg chewable tablet 81 mg PO DAILY 11/23/17 08/27/25 History melatonin 10 mg capsule 10 mg PO HS PRN sleep 11/23/17 08/26/25 History calcium carbonate 600 mg PO BID 06/30/18 08/27/25 History nitroglycerin 0.4 mg sublingual See Rx Instructions .Route 05/11/24 Unknown Rx tablet .COMPLEX #75 tabs handicap placard #1 ea 09/01/24 Unknown Rx cholecalciferol (vitamin D3) 50 50 mcg PO DAILY 12/08/24 08/27/25 History mcg (2,000 unit) capsule (Vitamin D3) sotalol 80 mg tablet (Betapace) 80 mg PO DAILY 12/08/24 08/27/25 History sertraline 100 mg tablet 100 mg PO QDAY #90 tabs 04/30/25 08/27/25 Rx amlodipine 10 mg tablet 10 mg PO QDAY #90 tabs 05/07/25 08/27/25 Rx rosuvastatin 20 mg tablet 20 mg PO DAILY #90 tabs 05/07/25 08/26/25 Rx Handicap Placard #1 ea 07/13/25 Unknown Rx trazodone 100 mg tablet 100 mg PO QHS PRN insomnia #90 tabs 07/30/25 08/26/25 Rx cyclobenzaprine 10 mg tablet 10 mg PO Q12H PRN PRN muscle spasm 08/27/25 Unknown History lisinopril 5 mg tablet 5 mg PO DAILY 08/27/25 08/27/25 History pantoprazole 40 mg tablet,delayed 40 mg PO DAILY 08/27/25 08/27/25 History release Allergy/AdvReac Type Severity Reaction Status Date / Time No Known Allergies Allergy Verified 08/27/25 13:38 Family History Mother CVA (cerebral vascular accident) Breast cancer, Onset Age: 35 Father Heart disease Sister Breast cancer, Onset Age: 50 Heart disease Hypertension Cancer lung Surgical History History of coronary artery bypass graft x 3 History of hysterectomy Cardiac defibrillator in place 4 stents cardiac rythem pacemaker triple bypass, valve replacement, nad aneurysm repair History of tonsillectomy Social History household members: none Smoking Status: Former smoker Tobacco: How many years used: 20 how long ago did patient quit smokin alcohol intake: never substance use type: does not use what type of physical activity do you participate in: none ROS ROS ED Review of Systems ROS Unobtainable: other Constitutional Constitutional ED: Reports lethargy; Denies chills, fever(s), sweats or weight loss Eyes Eyes: Denies blurry vision, change in vision or diplopia ENT ENT ED: Denies rhinorrhea or sore throat Cardiovascular Cardiovascular: Reports chest pain, orthopnea and racing heartbeat Respiratory/Chest Respiratory/Chest: Reports cough, dyspnea, dyspnea on exertion and orthopnea; Denies sputum Gastrointestinal Gastrointestinal: Denies abdominal pain, diarrhea, nausea or vomiting Genitourinary Genitourinary ED: Denies dysuria, hematuria or urinary frequency Musculoskeletal Musculoskeletal: Denies arthralgias, back pain, myalgias or neck pain Integumentary Denies abscess, Abrasions or rash Neurologic Neurologic: Denies headache(s) or weakness Psychiatric Psychiatric: Denies anxiety, depression or suicidal thoughts Endocrine Endocrinology: Denies polydipsia, polyphagia or polyuria Hematologic/Lymphatic Hematologic/Lymphatic: Denies easy bleeding, easy bruising or lymphadenopathy Allergic/Immunologic Allergic/Immunologic ED: Denies mouth swelling, tongue swelling or urticaria EXAM Physical Exam Const Vital Signs: 08/27/25 13:39 08/27/25 13:43 08/27/25 13:51 Temperature 96.9 F L Temperature Source Temporal Pulse Rate 82 Respiratory Rate 24 H Respiratory Effort Short of Breath Labored Respiratory Pattern Blood Pressure 156/72 H Blood Pressure Mean 100 Pulse Ox 66 98 Oxygen Delivery Method Room Air Nasal Cannula Oxygen Flow Rate (L/min) 4 08/27/25 14:08 08/27/25 14:10 08/27/25 14:10 Temperature Temperature Source Pulse Rate 67 Respiratory Rate 16 Respiratory Effort Respiratory Pattern Normal Blood Pressure Blood Pressure Mean Pulse Ox 95 98 Oxygen Delivery Method Nasal Cannula Nasal Cannula Oxygen Flow Rate (L/min) 3 2 08/27/25 14:12 08/27/25 14:30 08/27/25 14:30 Temperature Temperature Source Pulse Rate 76 70 Respiratory Rate 20 H 16 Respiratory Effort Respiratory Pattern Blood Pressure 106/71 141/93 H 136/75 H Blood Pressure Mean 82 109 92 Pulse Ox 93 92 93 Oxygen Delivery Method Nasal Cannula Oxygen Flow Rate (L/min) 3 08/27/25 14:45 08/27/25 15:00 08/27/25 15:15 Temperature Temperature Source Pulse Rate Respiratory Rate Respiratory Effort Respiratory Pattern Blood Pressure 141/93 H 104/78 Blood Pressure Mean 107 86 Pulse Ox 91 93 91 Oxygen Delivery Method Oxygen Flow Rate (L/min) 08/27/25 15:30 08/27/25 15:45 08/27/25 15:52 Temperature Temperature Source Pulse Rate Respiratory Rate Respiratory Effort Respiratory Pattern Blood Pressure 137/54 H Blood Pressure Mean 79 Pulse Ox 93 94 95 Oxygen Delivery Method Oxygen Flow Rate (L/min) 08/27/25 16:00 Temperature Temperature Source Pulse Rate 62 Respiratory Rate 17 Respiratory Effort Respiratory Pattern Blood Pressure 142/61 H Blood Pressure Mean 85 Pulse Ox 91 Oxygen Delivery Method Oxygen Flow Rate (L/min) Positive well nourished and well developed General Appearance ED: well developed and NAD HEENT Reports TM's clear and moist mucous membranes normocephalic and atraumatic; Negative for trauma or tenderness Tympanic Membrane ED: Yes TM's clear Eyes PERRL and EOMs intact bilaterally General Eye ED: Negative for pale conjunctiva or scleral icterus Neck no lymphadenopathy, supple and no JVD General: Negative for tenderness Chest Wall inspection of chest normal and palpation of chest normal Chest: Negative for tenderness Resp No normal respiratory effort and No clear to auscultation bilaterally Resp Narrative: Mild tachypnea. Slightly diminished breath sounds bilaterally with some faint expiratory wheezes bilaterally. Effort and Inspection: Negative for respiratory distress or pain with movement Auscultation: Negative for rhonchi, wheezes or diminished lung sounds Cardio regular rate, regular rhythm, S1 normal heart sound, S2 normal heart sound and no murmurs Peripheral Pulses: pulses 2+ throughout GI normal to inspection, nondistended, normoactive bowel sounds, soft to palpation, non-tender, non-distended and no masses Back/Spine no CVA tenderness and no thoracic nor lumbar tenderness Extremity normal to inspection General Extremety ED: Negative for edema General Extremity: Negative for edema Neuro oriented x3, CN's II-XII intact bilaterally, no sensory deficits noted and gait normal Sensorium / Orientation: awake, alert, oriented to person, oriented to place and oriented to time Motor Exam: strength 5/5 throughout and strength abnormal Psych mental status grossly normal Skin no rashes or lesions noted and no wounds MDM MDM MDM Narrative Medical decision making narrative: Patient presents for chest pain and shortness of breath with hypoxemia. She has history of cancer. In the differential would be pneumonia versus PE versus acute coronary syndrome or other. EKG obtained arrival showed a atrial flutter with variable block with rate of 63 bpm. CBC with differential obtained showed a white count of 5.1 with hemoglobin 9.3 and platelet count of 143. Chemistries unremarkable. Troponin was normal at 6. BT ENGRAVER PANTOGRAPH was normal at 546. D-dimer was elevated at 2.28. CTA of chest was ordered to rule out PE. Care of patient turned over to evening physician awaiting CTA results and final disposition. Patient was feeling markedly improved on oxygen. Lab Data Attestation: I reviewed the patient's lab results. Labs: Laboratory Results - last 24 hr 11/10/25 11/10/25 11/10/25 13:49 13:49 14:35 WBC Cancelled 5.1 Corrected WBC Cancelled RBC Cancelled 2.74 L Hgb Cancelled 9.3 L Hct Cancelled 28.1 L MCV Cancelled 102.6 H MCH Cancelled 33.9 H MCHC Cancelled 33.1 RDW Std Deviation Cancelled 66.5 H RDW Coeff of Margareth Cancelled 17.5 H Plt Count Cancelled 143 L MPV Cancelled 10.1 Immature Gran % (Auto) Cancelled 0.200 Neut % (Auto) Cancelled 69.3 Lymph % (Auto) Cancelled 19.7 [place] % (Auto) Cancelled 9.0 Eos % (Auto) Cancelled 1.4 Baso % (Auto) Cancelled 0.4 Absolute Neuts (auto) Cancelled 3.6 Absolute Lymphs (auto) Cancelled 1.01 Total Counted Cancelled Neutrophils % (Manual) Cancelled Band Neutrophils % Cancelled Lymphocytes % (Manual) Cancelled Monocytes % (Manual) Cancelled Eosinophils % (Manual) Cancelled Basophils % (Manual) Cancelled Metamyelocytes % Cancelled Myelocytes % Cancelled Promyelocytes % Cancelled Blast Cells % Cancelled Plasma Cell % (Manual) Cancelled Other Cells % Cancelled Nucleated RBC % Cancelled 0 Nucleated RBCs/100 WBC Cancelled Differential Comment Cancelled Diff Path Review Cancelled Hypersegmented Neuts Cancelled Atypical Lymphocytes Cancelled Reactive Lymphocytes Cancelled Smudge Cells Cancelled Toxic Granulation Cancelled Toxic Vacuolation Cancelled Dohle Bodies Cancelled Nancy Rods Cancelled Platelet Estimate Cancelled Plt Morphology Comment Cancelled RBC Morphology Cancelled Cancelled Polychromasia Cancelled Hypochromasia Cancelled Basophilic Stippling Cancelled Anisocytosis Cancelled 1+ Microcytosis Cancelled Macrocytosis Cancelled Spherocytes Cancelled Sickle Cells Cancelled Target Cells Cancelled Tear Drop Cells Cancelled Ovalocytes Cancelled Stomatocytes Cancelled Tenorio-Braman Bodies Cancelled [place] Cells Cancelled Bite Cells Cancelled Crenated Cell Cancelled Acanthocytes (Spur) Cancelled Rouleaux Cancelled Schistocytes Cancelled D-Dimer Quant (PE/DVT) Cancelled Sodium 135 Potassium 4.3 Chloride 99 Carbon Dioxide 26.4 Anion Gap 10 BUN 14 Creatinine 0.76 Estim Creat Clear Calc 46.33 L Est GFR (MDRD) Non-Af 84 BUN/Creatinine Ratio 18.5 Glucose 113 H Calcium 8.5 Troponin T High Sens 6 Troponin T Hi Sens 2 Hr NT pro BNP II 546 08/27/25 08/27/25 14:40 16:01 WBC Corrected WBC RBC Hgb Hct MCV MCH MCHC RDW Std Deviation RDW Coeff of Margareth Plt Count MPV Immature Gran % (Auto) Neut % (Auto) Lymph % (Auto) [place] % (Auto) Eos % (Auto) Baso % (Auto) Absolute Neuts (auto) Absolute Lymphs (auto) Total Counted Neutrophils % (Manual) Band Neutrophils % Lymphocytes % (Manual) Monocytes % (Manual) Eosinophils % (Manual) Basophils % (Manual) Metamyelocytes % Myelocytes % Promyelocytes % Blast Cells % Plasma Cell % (Manual) Other Cells % Nucleated RBC % Nucleated RBCs/100 WBC Differential Comment Diff Path Review Hypersegmented Neuts Atypical Lymphocytes Reactive Lymphocytes Smudge Cells Toxic Granulation Toxic Vacuolation Dohle Bodies Nancy Rods Platelet Estimate Plt Morphology Comment RBC Morphology Polychromasia Hypochromasia Basophilic Stippling Anisocytosis Microcytosis Macrocytosis Spherocytes Sickle Cells Target Cells Tear Drop Cells Ovalocytes Stomatocytes Tenorio-Braman Bodies [place] Cells Bite Cells Crenated Cell Acanthocytes (Spur) Rouleaux Schistocytes D-Dimer Quant (PE/DVT) 2.28 H* Sodium Potassium Chloride Carbon Dioxide Anion Gap BUN Creatinine Estim Creat Clear Calc Est GFR (MDRD) Non-Af BUN/Creatinine Ratio Glucose Calcium Troponin T High Sens Troponin T Hi Sens 2 Hr 9 NT pro BNP II Radiography Diagnostic Testing: Clinical Impression(s) from Imaging Studies Chest X-Ray 08/27/25 14:03 IMPRESSION: Mild pulmonary edema. no focal consolidation. Trace right base effusion. Mild cardiomegaly. Reading Location: [facility] Discharge Plan Triage Chief Complaint: Chest Pain ED Provider: Giacomo Worley Dx/Rx/DC Orders Clinical Impression: Chest pain, Hypoxemia Prescriptions: No Action aspirin 81 mg tablet,chewable 81 mg PO DAILY melatonin 10 mg capsule 10 mg PO HS PRN (Reason: sleep) calcium carbonate 600 mg calcium (1,500 mg) tablet 600 mg PO BID nitroglycerin 0.4 mg tablet, sublingual See Rx Instructions .ROUTE .COMPLEX Qty: 75 1RF Dose Instruction: DISSOLVE 1 TABLET UNDER TONGUE EVERY 5 MINUTES NEEDED FOR CHEST PAIN Rx Instructions: DISSOLVE 1 TABLET UNDER TONGUE EVERY 5 MINUTES NEEDED FOR CHEST PAIN (DME) handicap placard See Rx Instructions .Route .MEDSUPPLY Qty: 1 0RF Rx Instructions: placard for one year cholecalciferol (vitamin D3) [Vitamin D3] 50 mcg (2,000 unit) capsule 50 mcg PO DAILY sotalol [Betapace] 80 mg tablet 80 mg PO DAILY cyclobenzaprine 10 mg tablet 10 mg PO Q12H PRN PRN (Reason: muscle spasm) lisinopril 5 mg tablet 5 mg PO DAILY pantoprazole 40 mg tablet,delayed release (DR/EC) 40 mg PO DAILY sertraline 100 mg tablet 100 mg PO QDAY Qty: 90 1RF amlodipine 10 mg tablet 10 mg PO QDAY Qty: 90 1RF rosuvastatin 20 mg tablet 20 mg PO DAILY Qty: 90 1RF Rx Instructions: TAKE 1 TABLET BY MOUTH ONCE DAILY (DME) Handicap Placard See Rx Instructions .ROUTE .MEDSUPPLY Qty: 1 0RF Rx Instructions: As directed, length of time 10 years trazodone 100 mg tablet 100 mg PO QHS PRN (Reason: insomnia) Qty: 90 1RF Primary Care Provider: Mayra Fallon Referrals: Mayra Fallon MD [Primary Care Provider, Internal Medicine] Print Language: [place]
[2025-08-27 14:53] LABS: Anion Gap 10 (5-15); BUN 14 mg/dL (4-19); BUN/Creat Ratio 18.5 RATIO (10-20); Calcium,Total 8.5 mg/dL (7.6-11.0); Carbon Dioxide 26.4 mmol/L (21.0-32.0); Chloride 99 mmol/L (98-108); Estimated Creatinine Clearance 46.33 ml/min (50-250); Glucose 113 mg/dL (70-99); Potassium 4.3 mmol/L (3.3-5.1); Troponin T High Sensitivity 6 ng/L (<=14)
[2025-08-27 15:07] LABS: Hematocrit 28.1 % (37-47); Hemoglobin 9.3 g/dL (12.0-15.0); Immature Granulocytes Count 0.010 X10^3/uL (0.0-0.0); Mean Corp Hgb Conc 33.1 g/dL (32-36); Mean Corpuscular Volume 102.6 fL (81-99); Mean Platelet Vol. 10.1 fl (6.2-12.0); NRBC Flagged by Analyzer 0 % (0-5); POSITIVE MORPHOLOGY YES; Platelet Count 143 K/mm3 (150-450); RBC Distribution Width CV 17.5 % (11.6-14.6); RBC Distribution Width SD 66.5 fl (35.1-43.9); Red Blood Count 2.74 M/mm3 (4.2-5.4); White Blood Count 5.1 K/mm3 (4.4-11.0)
[2025-08-27 15:10] LABS: Differential Indicated SCAN CRITERIA MET
[2025-08-27 15:36] LABS: Anisocytosis 1+
[2025-08-27 15:58] LABS: Pro- Brain NATRIURETIC PEPTIDE 546 pg/mL (<=900)
[2025-08-27 16:20] LABS: D-Dimer Quantitative (DVT/PE) 2.28 FEU/ug/m (0.27-0.49)
[2025-08-27 16:30] LABS: Troponin T High Sens 2 HR 9 ng/L (<=14)
--- NOTE | 2025-08-27 17:00 | CT_ITS ---
PROCEDURE: CTA CHEST W/WO CONTRAST 08/27/2025 REASON FOR EXAM: CHEST PAIN, DYSPNEA TECHNIQUE: Procedure Code: [id number] Modality: CT Procedure: CTA CHEST W/WO CONTRAST Multiplanar Sagittal and Coronal images were obtained. CONTRAST: 100 mL of Isovue 370 One or more dose reduction techniques were used (e.g., Automated exposure control, adjustment of the mA and/or kV according to patient size, use of iterative reconstruction technique). RADIATION DOSE SUMMARY: DLP: 798 mGycm COMPARISON: 09/24/24 CTA chest FINDINGS: PULMONARY ARTERIES: No evidence of pulmonary embolism. LUNGS AND PLEURA: Moderate pulmonary edema and moderate bibasilar pleural effusions. Bibasilar consolidations may reflect compressive atelectasis vs pneumonia. No mass or nodule. No pneumothorax. MEDIASTINUM: Mediastinal lymphadenopathy measuring up to 2.8 x 1.9 cm at the retroaortic region. The heart shows no acute findings. Extensive coronary atherosclerosis. The aorta shows no acute findings. Extensive thoracic aortic atherosclerosis. the pulmonary trunk, and branches of the vessels in the mediastinum are within normal limits. SUPRACLAVICULAR AND AXILLARY: No abnormalities seen in these regions. No mass or significant lymphadenopathy. UPPER ABDOMEN: The visualized upper abdomen is unremarkable. BONES AND SOFT TISSUES: The ribs are unremarkable. Median sternotomy wires. T3 and T8 vertebral body sclerotic lesions may reflect osseous metastatic disease or hematopoietic disease. Flatted to likely stable size of right breast mass measuring 3.4 x 0.8 cm with central calcification. CT/CTA Chest W/WO Contrast IMPRESSION: No acute pulmonary emboli. Moderate pulmonary edema and moderate bibasilar pleural effusions. Bibasilar c onsolidations may reflect compressive atelectasis vs pneumonia. T3 and T8 vertebral body sclerotic lesions may reflect osseous metastatic disea se or hematopoietic disease, increased compared to 09/24/24. Flatted to likely stable size of right breast mass measuring 3.4 x 0.8 cm with central calcification. Mediastinal lymphadenopathy. Reading Location: [facility]
[2025-08-27 19:30] LABS: Troponin T High Sens 4 HR 7 ng/L (<=14)
--- NOTE | 2025-08-27 20:14 | PCM.HP.STD ---
[facility] - General General Date of Admission: 08/27/25 Date of Service: 08/27/25 Chief Complaint: Shortness of breath HPI Narrative ZORA MATUTE, is a 70 F who presents to the emergency room with chief complaint of shortness of breath that began last evening. Patient has significant past medical history of breast cancer and history of CABG with history of coronary artery disease. Patient is being treated for her metastatic breast cancer and her last chemotherapy was 2 weeks ago. She also has a history of atrial fibrillation and is not currently being anticoagulated. Patient was hypoxic on room air with an oxygen saturation in the 60s and is currently satting in the low to mid 90s at 3 L of nasal cannula. Laboratory studies reveal sodium 135 potassium 4.3, chloride 99, bicarb 26.4, BUN 14, creatinine 0.76, glucose 113, white blood cell count 5.1, hemoglobin 9.3, hematocrit 28.1, platelets 143, D-dimer 2.28 and BN TP 546, troponin 9, 7. CT angiogram of chest is negative for PE but shows bilateral pleural effusions. Right breast mass persists at 3.4 cm x 0.8 cm along with T3 and T8 sclerotic lesions that are possibly metastatic disease. Patient now denies any chest pain and is resting comfortably but requiring oxygen to maintain her saturation greater than 90% and therefore will be admitted for further management of her hypoxia. [facility] Medical History Breast cancer Anorexia Neutropenic fever Gastroenteritis Breast cancer metastasized to axillary lymph node Nontraumatic psoas hematoma Hyperbilirubinemia Severe anemia Non-ST elevation [place] (NSTEMI) Rhabdomyolysis Thrombocytopenia CAD (coronary artery disease) Chronic pain Atrial fibrillation ICD (implantable cardioverter-defibrillator) in place Urinary urgency Metastasis to bone Regional lymph node metastasis present Invasive ductal carcinoma of breast Aortic valve regurgitation due to aortic dilation Breast nodule Abnormal findings on imaging test Breast mass, right Skin mole Left knee pain Anxiety and depression Diarrhea Major depressive disorder, recurrent Health care maintenance Flu vaccine need Skin tags, multiple acquired Left hand pain History of cyst of breast History of stroke Heart valve problem GERD (gastroesophageal reflux disease) Hyperlipemia Hypertension Home Medications ?Medication ?Instructions ?Recorded ?Last Taken ?Type aspirin 81 mg chewable tablet 81 mg PO DAILY 11/23/17 08/27/25 History melatonin 10 mg capsule 10 mg PO HS PRN sleep 11/23/17 08/26/25 History calcium carbonate 600 mg PO BID 06/30/18 08/27/25 History nitroglycerin 0.4 mg sublingual See Rx Instructions .Route 05/11/24 Unknown Rx tablet .COMPLEX #75 tabs handicap placard #1 ea 09/01/24 Unknown Rx cholecalciferol (vitamin D3) 50 50 mcg PO DAILY 12/08/24 08/27/25 History mcg (2,000 unit) capsule (Vitamin D3) sotalol 80 mg tablet (Betapace) 80 mg PO DAILY 12/08/24 08/27/25 History sertraline 100 mg tablet 100 mg PO QDAY #90 tabs 04/30/25 08/27/25 Rx amlodipine 10 mg tablet 10 mg PO QDAY #90 tabs 05/07/25 08/27/25 Rx rosuvastatin 20 mg tablet 20 mg PO DAILY #90 tabs 05/07/25 08/26/25 Rx Handicap Placard #1 ea 07/13/25 Unknown Rx trazodone 100 mg tablet 100 mg PO QHS PRN insomnia #90 tabs 07/30/25 08/26/25 Rx cyclobenzaprine 10 mg tablet 10 mg PO Q12H PRN PRN muscle spasm 08/27/25 Unknown History lisinopril 5 mg tablet 5 mg PO DAILY 08/27/25 08/27/25 History pantoprazole 40 mg tablet,delayed 40 mg PO DAILY 08/27/25 08/27/25 History release Allergy/AdvReac Type Severity Reaction Status Date / Time No Known Allergies Allergy Verified 08/27/25 13:38 Family History Mother CVA (cerebral vascular accident) Breast cancer, Onset Age: 35 Father Heart disease Sister Breast cancer, Onset Age: 50 Heart disease Hypertension Cancer lung Surgical History History of coronary artery bypass graft x 3 History of hysterectomy Cardiac defibrillator in place 4 stents cardiac rythem pacemaker triple bypass, valve replacement, nad aneurysm repair History of tonsillectomy Social History household members: none Smoking Status: Former smoker Tobacco: How many years used: 20 how long ago did patient quit smokin alcohol intake: never substance use type: does not use what type of physical activity do you participate in: none ROS Constitutional Constitutional: Reports weakness; Denies chills or fever(s) Eyes Eyes: Denies blurry vision ENT HEENT: Denies abnormal hearing, epistaxis or headache(s) Cardiovascular Cardiovascular: Denies chest pain, edema or palpitations Respiratory/Chest Respiratory/Chest: Reports shortness of breath at rest; Denies wheezing Gastrointestinal Gastrointestinal: Denies abdominal pain, diarrhea, nausea or vomiting Genitourinary Genitourinary: Denies dysuria Musculoskeletal Musculoskeletal: Denies back pain Integumentary Integumentary: Denies dry skin, jaundice, rash or wounds Neurologic Neurologic: Denies abnormal gait Psychiatric Psychiatric: Denies anxiety Hematologic/Lymphatic Hematologic/Lymphatic: Reports anemia Vital Signs Vital Signs Vital Signs: 08/27/25 13:39 08/27/25 13:43 08/27/25 13:51 Temperature 96.9 F L Temperature Source Temporal Pulse Rate 82 Respiratory Rate 24 H Respiratory Effort Short of Breath Labored Respiratory Pattern Blood Pressure 156/72 H Blood Pressure Mean 100 Pulse Ox 66 98 Oxygen Delivery Method Room Air Nasal Cannula Oxygen Flow Rate (L/min) 4 08/27/25 14:08 08/27/25 14:10 08/27/25 14:10 Temperature Temperature Source Pulse Rate 67 Respiratory Rate 16 Respiratory Effort Respiratory Pattern Normal Blood Pressure Blood Pressure Mean Pulse Ox 95 98 Oxygen Delivery Method Nasal Cannula Nasal Cannula Oxygen Flow Rate (L/min) 3 2 08/27/25 14:12 08/27/25 14:30 08/27/25 14:30 Temperature Temperature Source Pulse Rate 76 70 Respiratory Rate 20 H 16 Respiratory Effort Respiratory Pattern Blood Pressure 106/71 141/93 H 136/75 H Blood Pressure Mean 82 109 92 Pulse Ox 93 92 93 Oxygen Delivery Method Nasal Cannula Oxygen Flow Rate (L/min) 3 08/27/25 14:45 08/27/25 15:00 08/27/25 15:15 Temperature Temperature Source Pulse Rate Respiratory Rate Respiratory Effort Respiratory Pattern Blood Pressure 141/93 H 104/78 Blood Pressure Mean 107 86 Pulse Ox 91 93 91 Oxygen Delivery Method Oxygen Flow Rate (L/min) 08/27/25 15:30 08/27/25 15:45 08/27/25 15:52 Temperature Temperature Source Pulse Rate Respiratory Rate Respiratory Effort Respiratory Pattern Blood Pressure 137/54 H Blood Pressure Mean 79 Pulse Ox 93 94 95 Oxygen Delivery Method Oxygen Flow Rate (L/min) 08/27/25 16:00 08/27/25 16:15 08/27/25 16:30 Temperature Temperature Source Pulse Rate 62 Respiratory Rate 17 Respiratory Effort Respiratory Pattern Blood Pressure 142/61 H 151/57 H 150/108 H Blood Pressure Mean 85 86 122 Pulse Ox 91 91 94 Oxygen Delivery Method Oxygen Flow Rate (L/min) 08/27/25 16:45 08/27/25 16:45 08/27/25 17:00 Temperature Temperature Source Pulse Rate Respiratory Rate Respiratory Effort Respiratory Pattern Blood Pressure 146/65 H 146/65 H 133/115 H Blood Pressure Mean 89 89 123 Pulse Ox 91 96 Oxygen Delivery Method Oxygen Flow Rate (L/min) 08/27/25 17:00 08/27/25 17:15 08/27/25 17:30 Temperature Temperature Source Pulse Rate 63 Respiratory Rate 16 Respiratory Effort Respiratory Pattern Blood Pressure 133/115 H 132/67 H 130/87 H Blood Pressure Mean 123 79 101 Pulse Ox 86 93 Oxygen Delivery Method Oxygen Flow Rate (L/min) 08/27/25 17:30 08/27/25 17:45 08/27/25 18:00 Temperature Temperature Source Pulse Rate 66 Respiratory Rate 23 H Respiratory Effort Respiratory Pattern Blood Pressure 130/87 H 147/130 H 147/97 H Blood Pressure Mean 102 137 113 Pulse Ox 93 94 92 Oxygen Delivery Method Oxygen Flow Rate (L/min) 08/27/25 18:00 08/27/25 18:15 08/27/25 18:27 Temperature Temperature Source Pulse Rate 68 68 Respiratory Rate 17 19 H Respiratory Effort Respiratory Pattern Blood Pressure 147/97 H Blood Pressure Mean 114 Pulse Ox 92 85 92 Oxygen Delivery Method Oxygen Flow Rate (L/min) 08/27/25 18:30 08/27/25 18:45 08/27/25 19:00 Temperature Temperature Source Pulse Rate 66 65 76 Respiratory Rate 22 H 19 H 28 H Respiratory Effort Respiratory Pattern Blood Pressure 165/70 H 165/70 H Blood Pressure Mean 97 101 Pulse Ox 92 90 94 Oxygen Delivery Method Oxygen Flow Rate (L/min) 08/27/25 19:15 08/27/25 19:30 08/27/25 19:30 Temperature Temperature Source Pulse Rate 68 77 Respiratory Rate 22 H 23 H Respiratory Effort Respiratory Pattern Blood Pressure 151/63 H 156/87 H Blood Pressure Mean 88 110 Pulse Ox 93 Oxygen Delivery Method Oxygen Flow Rate (L/min) 08/27/25 19:45 08/27/25 20:00 08/27/25 20:04 Temperature 98.3 F Temperature Source Pulse Rate 70 68 68 Respiratory Rate 21 H 25 H 25 H Respiratory Effort Respiratory Pattern Blood Pressure 153/81 H 153/81 H Blood Pressure Mean 97 105 Pulse Ox 92 91 91 Oxygen Delivery Method Oxygen Flow Rate (L/min) Weight Weight: 116 lb Body Mass Index (BMI) 23.4 Physical Exam Const oriented x3 General Appearance: cooperative and well developed HEENT normocephalic and head/scalp atraumatic Eyes PERRL and EOMs intact bilaterally Neck no lymphadenopathy Lymph Lymphatic: no lymphadenopathy noted Resp normal respiratory effort, normal air movement and clear to auscultation bilaterally Auscultation: Negative for rales, rhonchi or wheezes Cardio regular rate, regular rhythm, S1 normal heart sound, S2 normal heart sound and no murmurs Rhythm: Negative for abnormal rhythm GI normal to inspection, nondistended, normoactive bowel sounds Extremity normal capillary refill General Extremity: Negative for edema Skin General Skin Exam: no breakdown Neuro no focal motor deficits and no sensory deficits noted Psych thought process normal, cooperative and affect normal Results Lab / Micro Data 08/27/25 14:35 08/27/25 13:49 Labs: Laboratory Results - last 24 hr 08/27/25 13:49: WBC Cancelled, Corrected WBC Cancelled, RBC Cancelled, Hgb Cancelled, Hct Cancelled, MCV Cancelled, MCH Cancelled, MCHC Cancelled, RDW Std Deviation Cancelled, RDW Coeff of Margareth Cancelled, Plt Count Cancelled, MPV Cancelled, Immature Gran % (Auto) Cancelled, Neut % (Auto) Cancelled, Lymph % (Auto) Cancelled, [place] % (Auto) Cancelled, Eos % (Auto) Cancelled, Baso % (Auto) Cancelled, Absolute Neuts (auto) Cancelled, Absolute Lymphs (auto) Cancelled, Total Counted Cancelled, Neutrophils % (Manual) Cancelled, Band Neutrophils % Cancelled, Lymphocytes % (Manual) Cancelled, Monocytes % (Manual) Cancelled, Eosinophils % (Manual) Cancelled, Basophils % (Manual) Cancelled, Metamyelocytes % Cancelled, Myelocytes % Cancelled, Promyelocytes % Cancelled, Blast Cells % Cancelled, Plasma Cell % (Manual) Cancelled, Other Cells % Cancelled, Nucleated RBC % Cancelled, Nucleated RBCs/100 WBC Cancelled, Differential Comment Cancelled, Diff Path Review Cancelled, Hypersegmented Neuts Cancelled, Atypical Lymphocytes Cancelled, Reactive Lymphocytes Cancelled, Smudge Cells Cancelled, Toxic Granulation Cancelled, Toxic Vacuolation Cancelled, Dohle Bodies Cancelled, Nancy Rods Cancelled, Platelet Estimate Cancelled, Plt Morphology Comment Cancelled, RBC Morphology Cancelled 08/27/25 13:49: RBC Morphology Cancelled, Polychromasia Cancelled, Hypochromasia Cancelled, Basophilic Stippling Cancelled, Anisocytosis Cancelled, Microcytosis Cancelled, Macrocytosis Cancelled, Spherocytes Cancelled, Sickle Cells Cancelled, Target Cells Cancelled, Tear Drop Cells Cancelled, Ovalocytes Cancelled, Stomatocytes Cancelled, [place] Bodies Cancelled, [place] Cells Cancelled, Bite Cells Cancelled, Crenated Cell Cancelled, Acanthocytes (Spur) Cancelled, Rouleaux Cancelled, Schistocytes Cancelled, D-Dimer Quant (PE/DVT) Cancelled, Sodium 135, Potassium 4.3, Chloride 99, Carbon Dioxide 26.4, Anion Gap 10, BUN 14, Creatinine 0.76, Estim Creat Clear Calc 46.33 L, Est GFR (MDRD) Non-Af 84, BUN/Creatinine Ratio 18.5, Glucose 113 H, Calcium 8.5, Troponin T High Sens 6, NT pro BNP II 546 08/27/25 14:35: WBC 5.1, RBC 2.74 L, Hgb 9.3 L, Hct 28.1 L, MCV 102.6 H, MCH 33.9 H, MCHC 33.1, RDW Std Deviation 66.5 H, RDW Coeff of Margareth 17.5 H, Plt Count 143 L, MPV 10.1, Immature Gran % (Auto) 0.200, Neut % (Auto) 69.3, Lymph % (Auto) 19.7, [place] % (Auto) 9.0, Eos % (Auto) 1.4, Baso % (Auto) 0.4, Absolute Neuts (auto) 3.6, Absolute Lymphs (auto) 1.01, Nucleated RBC % 0, Anisocytosis 1+ 08/27/25 14:40: D-Dimer Quant (PE/DVT) 2.28 H* 08/27/25 16:01: Troponin T Hi Sens 2 Hr 9 08/27/25 18:44: Troponin T Hi Sens 4Hr 7 Imaging Radiology Impression Chest X-Ray 08/27/25 14:03 IMPRESSION: Mild pulmonary edema. no focal consolidation. Trace right base effusion. Mild cardiomegaly. Reading Location: [facility] Chest CTA 08/27/25 17:00 IMPRESSION: No acute pulmonary emboli. Moderate pulmonary edema and moderate bibasilar pleural effusions. Bibasilar consolidations may reflect compressive atelectasis vs pneumonia. T3 and T8 vertebral body sclerotic lesions may reflect osseous metastatic disease or hematopoietic disease, increased compared to 09/24/24. Flatted to likely stable size of right breast mass measuring 3.4 x 0.8 cm with central calcification. Mediastinal lymphadenopathy. Reading Location: [facility] Assessment & Plan Assessment/Plan (1) Hypoxemia: (2) Breast cancer: QUALIFIERS: Breast location: unspecified site of breast Estrogen receptor status: unspecified Patient sex: female Laterality: unspecified laterality Qualified Code(s): C50.919 - Malignant neoplasm of unspecified site of unspecified female breast (3) Fatigue: QUALIFIERS: Fatigue type: unspecified Qualified Code(s): R53.83 - Other fatigue (4) History of open heart surgery: PLAN: Plan 1. Hypoxemia?admit patient to progressive care unit, maintain oxygen saturation on nasal cannula to above 90%. Possibilities for pleural effusions include malignancy and/or congestive heart failure. Will continue Lasix initiated in the emergency room. Will order echocardiogram to evaluate cardiac function and and ascertain ejection fraction. Tomorrow will attempt to try to wean oxygen down as patient can tolerate. Repeat CBC BMP in the a.m. 2. Breast cancer?patient has ongoing chemotherapy every 2 weeks from oncology 3. CODE STATUS?full verified with patient 4. DVT prophylaxis?low molecular weight heparin Charges/Coding Visit Charges Inpatient E&M: 69176 Init Hosp L2
--- OUTSIDE RECORDS SUMMARY | 2025-08-27 20:38 | XMS RPT_ITS | CCD ---
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 Daniela Fallon Primary Care Provider 1(33 0) Dr. Daniela Fallon Attending Provider 1(330)2 Dr. Daniela Fallon Referring Provider 1(330)2 Dr. Daniela Fallon Primary Care Provider 1(33 0) Dr. Daniela Fallon Attending Provider 1(330)2 Dr. Daniela Fallon Referring Provider 1(330)2 Dr. Daniela Fallon Primary Care Provider 1(33 0) Dr. Daniela Fallon Attending Provider 1(330)2 Dr. Daniela Fallon Referring Provider 1(330)2 Kath TILE AND MARBLE INSTALLER, TILE AND MARBLE INSTALLER-C Guillaume Attending Provider 1(330) Daniela Fallon MD Primary Care Provider 1(01 14) DANIELA FALLON Primary Care Unavailable KEYANNA SANCHEZ Referring Unavailable DANIELA FALLON Primary Care Unavailable Dr. Daniela Fallon Primary Care Provider 1(33 0) Dr. Daniela Fallon Referring Provider 1(330)2 Kath TILE AND MARBLE INSTALLER, TILE AND MARBLE INSTALLER-C Guillaume Attending Provider 1(330) Dr. Daniela Fallon Attending Provider 1(330)2 Mlagorzata Appiah Unavailable Unavailable Dr. Daniela Fallon Primary Care Provider 1(33 0) Leeanne, Dr. Nunez Attending Provider 1(330)2 Leeanne, Dr. Nunez Referring Provider 1(330)2 Leeanne, Dr. Nunez Primary Care Provider 1(33 0) Dr. Daniela Fallon Attending Provider 1(330)2 Leeanne, Dr. uNnez Referring Provider 1(330)2 Daniela Fallon MD Primary Care Prov ider Jorge MURILLO, Remi Lipscomb Unavailable Ruel Lozano MD Unavailable Dr. Daniela Fallon Primary Care Provider 1(33 0) Leeanne, Dr. Nunez Attending Provider 1(330)2 Leeanne, Dr. Nunez Referring Provider 1(330)2 [facility] Attending Provider Dr. Julianna Diaz Attending Provider Marcelo Davey MD Unavailable ROBBIE TURNER MD, DR SHERMAN Attending [facility] DANIELA FALLON MD Primary Care Unavailab REMI Agrawal MD Attending Unavailable DANIELA FALLON MD Primary Care Unavailab elma VÁSQUEZ MD, SURESH Consulting Unavailable JUAN F MARCOS MD Attending Unavailable DANIELA AFLLON MD Primary Care Unavailab VANESSA Estes MD Consulting Unavailabl e DR LANE OSBORN MD Attending [facility] Work Phone: NM Whole body Bone Viewson 0 02-23-2024 No evidence of osseo us metastatic disease. Degenerative changes as described above. I personally reviewed the images/study and I agree with the findings as stated. This study was interpreted at [facility], [place], [place]. MACRO: None Signed by: Luis Manuel Parrish 02/23/2024 3:29 PM Dictation workstation: [id number] MMODAL Interpreted By: Luis Manuel Koch and Bartolomei Aguilar Christopher STUDY: NM BONE WHOLE BODY; 02/23/2024 12:52 pm INDICATION: Signs/Symptoms:abnorma lity noted on PET in neck. h/o breast cancer. evaluate for metastatic dz. COMPARISON: CT spine thoracic 01/24/2024. ACCESSION NUMBER(S): [id number] ORDERING CLINICIAN: MARCELO DAVEY TECHNIQUE: DIVISION OF NUCLEAR MEDICINE BONE SCAN, WHOLE BODY plus REGIONAL VIEWS The patient received an intravenous dose of 27.5 mCi of Tc-99m MDP. Anterior and posterior images of the skeleton from skull vertex to feet were then acquired. Additional regional skeletal images were also obtained. FINDINGS: There is no focal increased radiotracer uptake to suggest osseous metastatic disease. Expected, excreted activity is noted in the kidneys and bladder. Increased radiotracer uptake is seen in the bilateral hands/elbow/knee/ankle s, most consistent with an arthritic/degenerative pattern. MMODAL Luis Manuel Parrish MD - 02/23/2024 Interpreted By: Luis Manuel Parrish and Bartolomei Aguilar Christopher STUDY: NM BONE WHOLE BODY; 02/23/2024 12:52 pm INDICATION: Signs/Symptoms:abnorma lity noted on PET in neck. h/o breast cancer. evaluate for metastatic dz. COMPARISON: CT spine thoracic 01/24/2024. ACCESSION NUMBER(S): [id number] ORDERING CLINICIAN: MARCELO DAVEY TECHNIQUE: DIVISION OF NUCLEAR MEDICINE BONE SCAN, WHOLE BODY plus REGIONAL VIEWS The patient received an intravenous dose of 27.5 mCi of Tc-99m MDP. Anterior and posterior images of the skeleton from skull vertex to feet were then acquired. Additional regional skeletal images were also obtained. FINDINGS: There is no focal increased radiotracer uptake to suggest osseous metastatic disease. Expected, excreted activity is noted in the kidneys and bladder. Increased radiotracer uptake is seen in the bilateral hands/elbow/knee/ankle s, most consistent with an arthritic/degenerative pattern. IMPRESSION: No evidence of osseous metastatic disease. Degenerative changes as described above. I personally reviewed the images/study and I agree with the findings as stated. This study was interpreted at [facility], [place], [place]. MACRO: None Signed by: Luis Manuel Parrish 02/23/2024 3:29 PM Dictation workstation: [id number] [facility] Work Phone: Radiology Study observation (narrative) [facility] Work Phone: NM Whole body Bone ViewsOrde red By: Luis Manuel Parrish on 02-23-2024 [facility] Work Phone: US Guidance for localization of Breast - righton 02-22-2024 Status post ultrasou nd guided core needle biopsy of a right breast mass followed by tissue marker placement. Pathology is pending. POST PROCEDURE MAMMOGRAM FOR MARKER PLACEMENT. MACRO: None Signed by: Rosalee Estevez 02/22/2024 11:00 AM Dictation workstation: [id number] [facility] Interpreted By: Rosalee Estevez, STUDY: BI US GUIDED BREAST LOCALIZATION AND BIOPSY RIGHT; 02/22/2024 9:20 am ACCESSION NUMBER(S): [id number] ORDERING CLINICIAN: AMLGORZATA CLIFFORD INDICATION: Patient presents for an ultrasound-guided biopsy of a right breast mass FINDINGS: PREPROCEDURAL CONSULTATION: The history and physical exam pertinent to the procedure were reviewed and no updates were made. The procedure was explained to the patient including the risks, benefits, and alternatives. Medications were discussed, including any prior use of blood thinning medications by the patient. Patient allergies were reviewed. The risks, including but not limited to infection and bleeding, were reviewed by the performing physician and the patient agreed to undergo the procedure. Prior to the procedure, an audible timeout was done to verify patient identification, site and type of procedure. Dr. Estevez, a radiology nurse and an medical technologist clinical were present. PROCEDURE: Scanning of the right breast redemonstrated the mass of concern in the 6 o'clock position, 4 cm from the nipple. The right breast was marked under ultrasound guidance and cleansed. 20 mL of buffered 1% lidocaine was injected subcutaneously and then into the deeper tissues surrounding the mass. A small incision was made. 1 tissue core specimen was then obtained with a 12-gauge spring-loaded biopsy needle. The needle was bent due to the stiffness of the mass and the sample was limited. An additional 12 gauge spring-loaded biopsy needle was used. 1 tissue core specimen was obtained. The needle was bent due the stiffness of the mass in the sample was limited. An additional 14 gauge spring-loaded biopsy needle was used and a sample was not able to be obtained. Decision was made to use a [employer] 9 gauge vacuum assisted device. 2 samples were obtained and there was minimal (less than 10 mL) bleeding. A barrel Hydromark tissue marker was then placed into the biopsy site. Hemostasis was achieved with manual compression. The patient tolerated the procedure without difficulty. The postbiopsy mammogram was not obtained given the deep location. The patient experienced no complications during the procedure. Home-going/follow-up instructions were reviewed with the patient before she left the department. [facility] Rosalee Estevez M D - 02/22/2024 Interpreted By: Rosalee Estevez, STUDY: BI US GUIDED BREAST LOCALIZATION AND BIOPSY RIGHT; 02/22/2024 9:20 am ACCESSION NUMBER(S): [id number] ORDERING CLINICIAN: MALGORZATA CLIFFORD INDICATION: Patient presents for an ultrasound-guided biopsy of a right breast mass FINDINGS: PREPROCEDURAL CONSULTATION: The history and physical exam pertinent to the procedure were reviewed and no updates were made. The procedure was explained to the patient including the risks, benefits, and alternatives. Medications were discussed, including any prior use of blood thinning medications by the patient. Patient allergies were reviewed. The risks, including but not limited to infection and bleeding, were reviewed by the performing physician and the patient agreed to undergo the procedure. Prior to the procedure, an audible timeout was done to verify patient identification, site and type of procedure. Dr. Estevez, a radiology nurse and an medical technologist clinical were present. PROCEDURE: Scanning of the right breast redemonstrated the mass of concern in the 6 o'clock position, 4 cm from the nipple. The right breast was marked under ultrasound guidance and cleansed. 20 mL of buffered 1% lidocaine was injected subcutaneously and then into the deeper tissues surrounding the mass. A small incision was made. 1 tissue core specimen was then obtained with a 12-gauge spring-loaded biopsy needle. The needle was bent due to the stiffness of the mass and the sample was limited. An additional 12 gauge spring-loaded biopsy needle was used. 1 tissue core specimen was obtained. The needle was bent due the stiffness of the mass in the sample was limited. An additional 14 gauge spring-loaded biopsy needle was used and a sample was not able to be obtained. Decision was made to use a [employer] 9 gauge vacuum assisted device. 2 samples were obtained and there was minimal (less than 10 mL) bleeding. A barrel Hydromark tissue marker was then placed into the biopsy site. Hemostasis was achieved with manual compression. The patient tolerated the procedure without difficulty. The postbiopsy mammogram was not obtained given the deep location. The patient experienced no complications during the procedure. Home-going/follow-up instructions were reviewed with the patient before she left the department. IMPRESSION: Status post ultrasound guided core needle biopsy of a right breast mass followed by tissue marker placement. Pathology is pending. POST PROCEDURE MAMMOGRAM FOR MARKER PLACEMENT. MACRO: None Signed by: Rosalee Estevez 02/22/2024 11:00 AM Dictation workstation: [id number] [facility] Work Phone: Radiology Study observation (narrative) [facility] Work Phone: US Guidance for localization of Breast - rightOrdered By: Rosalee Estevez on 02-22-2024 [facility] Work Phone: TRANSTHORACIC ECHO (TTE) [facility] ITEDon 02-11-2024 TRANSTHORACIC ECHO (TTE) LIMITED [facility] [address], [address], [place] [address] TRANSTHORACIC ECHOCARDIOGRAM REPORT Patient Name: LIZBETH Lewis Physician: [id number] Vikram Schofield MD Study Date: 02/11/2024 Ordering Provider: [id number] MARCELO DAVEY MRN/PID: [id number] Fellow: Nurse: Date of /Age: 401/26/1955 / 69 years 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 CPT Code: Echo Limited-38675; Myocardial Strain Imaging-33559; Doppler Limited-13576 Study Detail: The following Echo studies were performed: 2D, M-Mode, Doppler and color flow. PHYSICIAN INTERPRETATION: Left Ventricle: The left ventricular systolic function is mildly decreased, with an estimated ejection fraction of 45-50%. There is global hypokinesis of the left ventricle with minor regional variations. The left ventricular cavity size is normal. There is moderate concentric left ventricular hypertrophy. Left Ventricular Global Longitudinal Strain - -12.4 %. Left ventricular diastolic filling was not assessed. Left Atrium: The left atrium was not assessed. Right Ventricle: The right ventricle is normal in size. There is low normal right ventricular systolic function. A device is visualized in the right ventricle. Right Atrium: The right atrium is upper limits of normal in size. There is a device visualized in the right atrium. Aortic Valve: The aortic valve appears abnormal. There is moderate aortic valve cusp calcification. There is moderate aortic valve thickening. There is mild aortic valve regurgitation. Aortic valve appears degenerative. Gradients were not assed with current study. Consider repeat evaluation for thorough evaluation. Mitral Valve: The mitral valve is mildly thickened. There is mild mitral annular calcification. There is trace mitral valve regurgitation. Tricuspid Valve: The tricuspid valve is structurally normal. There is trace tricuspid regurgitation. Pulmonic Valve: The pulmonic valve is structurally normal. There is trace pulmonic valve regurgitation. Pericardium: There is a trivial pericardial effusion. Aorta: The aortic root is normal. There is mild dilatation of the ascending aorta. There is no dilatation of the aortic root. In comparison to the previous echocardiogram(s): There are no prior studies on this patient for comparison purposes. CONCLUSIONS: 1. Left ventricular systolic function is mildly decreased with a 45-50% estimated ejection fraction. 2. There is global hypokinesis of the left ventricle with minor regional variations. 3. Left Ventricular Global Longitudinal Strain - -12.4 %. 4. There is moderate concentric left ventricular hypertrophy. 5. There is low normal right ventricular systolic function. 6. Aortic valve appears abnormal. 7. Aortic valve appears degenerative. Gradients were not assed with current study. Consider repeat evaluation for thorough evaluation. 8. Mild aortic valve regurgitation. QUANTITATIVE DATA SUMMARY: 2D MEASUREMENTS: Normal Ranges: IVSd: 1.90 cm (0.6-1.1cm) LVPWd: 1.70 cm (0.6-1.1cm) LVIDd: 3.60 cm (3.9-5.9cm) LVIDs: 2.10 cm LV Mass Index: 163.5 g/m2 LV % FS 41.7 % AORTA MEASUREMENTS: Normal Ranges: Asc Ao, d: 3.70 cm (2.1-3.4cm) LV SYSTOLIC FUNCTION BY 2D PLANIMETRY (MOD): Normal Ranges: EF-A4C View: 49.9 % (>=55%) EF-A2C View: 42.8 % EF-Biplane: 46.4 % Global Longitudinal Strain (GLS): -12.4 % [id number] Vikram Schofield MD Electronically signed on 02/13/2024 at 8:16:41 PM Final Normal [facility] CBC W Auto Differential pane l (Bld)on 02-09-2024 Basophils (Bld) [#/Vol] 0.06 10*3/uL [facility] Basophils/100 WBC (Bld) 0.8 % 0.0 - 2.0 % [facility] Eosinophils (Bld) [#/Vol] 0.20 10*3/uL [facility] Eosinophils/100 WBC (Bld) 2.8 % 0.0 - 6.0 % [facility] Erythrocyte distribution width (RBC) [Ratio] 13.1 % 11.5 - 14.5 % [facility] Hematocrit (Bld) [Volume fraction] 44.7 % 36.0 - 46.0 % [facility] Hemoglobin (Bld) [Mass/Vol] 14.5 g/dL 12.0 - 16.0 g/dL [facility] Immature granulocytes (Bld) [#/Vol] 0.02 10*3/uL [facility] Immature granulocytes/100 WBC (Bld) 0.3 % 0.0 - 0.9 % [facility] Comment on above: Immature Granulocyte Count (IG) includes promyelocytes, myelocytes and metamyelocytes but does not include bands. Percent differential counts (%) should be interpreted in the context of the absolute cell counts (cells/UL). Lymphocytes (Bld) [#/Vol] 1.63 10*3/uL [facility] Lymphocytes/100 WBC (Bld) 22.6 % 13 .0 - 44.0 % [facility] MCH (RBC) [Entitic mass] 28.3 pg 26. 0 - 34.0 pg [facility] MCHC (RBC) [Mass/Vol] 32.4 g/dL 32.0 - 36.0 g/dL [facility] MCV (RBC) [Entitic vol] 87 fL 80 - 100 fL [facility] Monocytes (Bld) [#/Vol] 0.39 10*3/uL [facility] Monocytes/100 WBC (Bld) 5.4 % 2.0 - 10.0 % [facility] Neutrophils (Bld) [#/Vol] 4.90 10*3/uL [facility] Comment on above: Percent differential counts (%) should be interpreted in the context of the absolute cell counts (cells/uL). Neutrophils/100 WBC (Bld) 68.1 % 40 .0 - 80.0 % [facility] Nucleated RBC/100 WBC (Bld) [Ratio] 0.0 % [facility] Platelets (Bld) [#/Vol] 279 10*3/uL [facility] RBC (Bld) [#/Vol] 5.12 10*6/uL [facility] WBC (Bld) [#/Vol] 7.2 10*3/uL [facility] Comprehensive metabolic 2000 panelon 02-09-2024 Albumin BCP dye [Mass/Vol] 5.2 g/dL High 3.4 - 5.0 g/dL [facility] ALP [Catalytic activity/Vol] 90 U/L 33 - 136 U/L [facility] ALT With P-5'-P [Catalytic activity/Vol] 11 U/L 7 - 45 U/L [facility] Comment on above: Patients treated wit h Sulfasalazine may generate falsely decreased results for ALT. Anion gap [Moles/Vol] 15 mmol/L 10 - 2 0 mmol/L [facility] AST With P-5'-P [Catalytic activity/Vol] 14 U/L 9 - 39 U/L [facility] Bilirubin [Mass/Vol] 0.6 mg/dL 0.0 - 1 .2 mg/dL [facility] Calcium [Mass/Vol] 9.6 mg/dL 8.6 - 10. 3 mg/dL [facility] Chloride [Moles/Vol] 98 mmol/L 98 - 10 7 mmol/L [facility] CO2 [Moles/Vol] 32 mmol/L 21 - 32 mmol/L [facility] Creatinine [Mass/Vol] 1.06 mg/dL High 0.50 - 1.05 mg/dL [facility] GFR/1.73 sq M.predicted among non-blacks MDRD (S/P/Bld) [Vol rate/Area] 57 mL/min/{1.73_m2} Low - PINF [facility] Comment on above: Calculations of jose a mated GFR are performed using the 2020 CKD-EPI Study Refit equation without the race variable for the IDMS-Traceable creatinine methods. https://jasn.asnjournals.org/content//ASN.20 15126731 Glucose [Mass/Vol] 102 mg/dL High 74 - 99 mg/dL [facility] Interpretation and review of laboratory results Abnormal [facility] Potassium [Moles/Vol] 4.9 mmol/L 3.5 - 5.3 mmol/L [facility] Protein [Mass/Vol] 8.0 g/dL 6.4 - 8.2 g/dL [facility] Sodium [Moles/Vol] 140 mmol/L 136 - 145 mmol/L [facility] Urea nitrogen [Mass/Vol] 18 mg/dL 6 - 23 mg/d L [facility] DBT Breast - bilateral diagn osticon 02-09-2024 Radiology Study observation (narrative) [facility] Work Phone: No Panel InformationOrdered By: Eugenia Bob on 02-09-2024 Interpretation and review of laboratory results Abnormal [facility] Work Phone: [facility] Work Phone: No Panel Informationon 02-08 1. Biopsy-proven malignant right breast masses at 7 o'clock and 8 o'clock positions associated with biopsy-proven malignant right axillary lymphadenopathy. The dominant mass likely abuts the chest wall musculature although evaluation of possible muscular involvement is limited on this exam. 2. Additional right breast mass at 6 o'clock position is highly suggestive of an additional focus of disease. Ultrasound-guided biopsy is recommended to confirm extent of disease. 3. No mammographic or targeted sonographic evidence of malignancy in the left breast. Dr. Eugenia Bob discussed the findings and recommendations with the patient and her referring breast surgical oncologist, Dr. Clifford at the time of the exam. A pre-procedure form was filled out. BI-RADS CATEGORY: BI-RADS CATEGORY: 5 Highly Suggestive of Malignancy. Recommendation: Surgical Consultation and Biopsy. Recommended Date: Immediate. Laterality: Right. For any future breast imaging appointments, please call [phone] MACRO: None Signed by: Eugenia Bob 02/09/2024 10:18 PM Dictation workstation: [id number] [facility]AL Interpreted By: Eugenia Bob, STUDY: BI MAMMO BILATERAL DIAGNOSTIC TOMOSYNTHESIS; BI US BREAST LIMITED BILATERAL; 02/09/2024 2:47 pm; 02/09/2024 3:29 pm ACCESSION NUMBER(S): [id number]; [id number] ORDERING CLINICIAN: MALGORZATA CLIFFORD INDICATION: Recent diagnosis of multifocal invasive ductal carcinoma at outside facility. Patient with right breast masses and abnormal right axillary lymph nodes noted on chest CT angiography performed as part of workup for open heart surgery. Patient underwent ultrasound-guided biopsy of a mass at 8 o'clock, 7 cm from the nipple and a mass at 7 o'clock, 7 cm from the nipple both showing invasive ductal carcinoma and a right axillary lymph node biopsy showing metastatic lymphadenopathy. Patient has a strong family history of breast cancer with mother and sister diagnosed with breast cancer. COMPARISON: PET-CT dated 01/11/2024, mammogram 11/25/2023. FINDINGS: MAMMOGRAPHY: 2D and tomosynthesis images were reviewed at 1 mm slice thickness. Per technologist, best possible images were obtained. Visualization of the left axilla is limited due to overlying cardiac device. Density: There are areas of scattered fibroglandular tissue. There is an small oval mass associated with a ribbon shaped biopsy marker clip in lower outer right breast at posterior depth best seen on the MLO view. The mass is not well visualized on the CC view due to posterior location. This corresponds with the smaller most lateral mass seen on outside facility PET-CT and reported biopsy-proven malignancy at 7 o'clock, 7 cm from the nipple. The dominant biopsy-proven malignant mass in the right breast seen on PET-CT and reported biopsied mass at 8 o'clock, 7 cm from the nipple is not visualized mammographically due to posterior location. An additional FDG avid mass in central lower right breast at posterior depth seen on PET-CT and the mass seen on today's ultrasound exam at 6 o'clock is not visualized mammographically. A focal asymmetry with questionable architectural distortion was initially questioned in upper-outer quadrant of the left breast at middle depth which resolved on additional mammographic views. A biopsy tissue marker is seen in upper outer left breast at posterior depth. No suspicious masses or calcifications are identified in the left breast. ULTRASOUND: Targeted ultrasound with elastography was performed by a registered wireline supervisor in the bilateral breast and right axilla. There is an irregular spiculated hypoechoic mass with anti parallel orientation and posterior shadowing containing echogenic foci of calcifications and associated with a biopsy clip in the right breast at 8 o'clock, 7 cm from the nipple measuring 2.6 x 1.7 x 2.1 cm. The mass is stiff on elastography and likely abuts the chest wall musculature, although muscular involvement can not be evaluated due to posterior location and shadowing from the mass. This finding corresponds with the dominant mass on PET-CT and biopsy-proven malignancy. Approximately 1.2 cm from the dominant mass, and located more superficially, there is an additional irregular spiculated hypoechoic mass in anti parallel orientation associated with a biopsy clip at 7 o'clock, 7 cm from the nipple measuring 0.8 x 0.7 x 0.6 cm. No internal vascularity is identified. The mass is soft on elastography. This corresponds with the mass seen on mammogram and the smallest most lateral mass seen on PET-CT and biopsy-proven malignancy. There is an additional irregular spiculated hypoechoic stiff mass in the right breast at 5-6 o'clock position, 4 cm from the nipple, measuring 1.5 x 0.9 x 1.3 cm. The mass is located in the posterior depth in likely abuts the chest wall, although possible chest wall involvement can not be accurately evaluated. This mass is located approximately 3.5 cm medial to the dominant mass and corresponds to the most medial mass seen on PET-CT. This mass is not visualized mammographically due to posterior location. On PET-CT, these 3 masses span an area of approximately 8.5 cm in transverse dimension. On scanning of the upper-outer quadrant of the left breast, no focal sonographic abnormalities are identified to correspond with the questioned focal asymmetry. On scanning of the right axilla, a 1.3 x 1.3 x 1.2 cm abnormal rounded level I axillary lymph node is identified with irregular borders and effaced fatty hilum containing a biopsy clip, corresponding to biopsy-proven metastatic lymphadenopathy. Three additional abnormal level II and II right axillary lymph nodes with irregular borders are identified in the right axilla. [facility] Eugenia Bob MD - 02/09/2024 Interpreted By: Eugenia Bob, STUDY: BI MAMMO BILATERAL DIAGNOSTIC TOMOSYNTHESIS; BI US BREAST LIMITED BILATERAL; 02/09/2024 2:47 pm; 02/09/2024 3:29 pm ACCESSION NUMBER(S): [id number]; [id number] ORDERING CLINICIAN: MALGORZATA CLIFFORD INDICATION: Recent diagnosis of multifocal invasive ductal carcinoma at outside facility. Patient with right breast masses and abnormal right axillary lymph nodes noted on chest CT angiography performed as part of workup for open heart surgery. Patient underwent ultrasound-guided biopsy of a mass at 8 o'clock, 7 cm from the nipple and a mass at 7 o'clock, 7 cm from the nipple both showing invasive ductal carcinoma and a right axillary lymph node biopsy showing metastatic lymphadenopathy. Patient has a strong family history of breast cancer with mother and sister diagnosed with breast cancer. COMPARISON: PET-CT dated 01/11/2024, mammogram 11/25/2023. FINDINGS: MAMMOGRAPHY: 2D and tomosynthesis images were reviewed at 1 mm slice thickness. Per technologist, best possible images were obtained. Visualization of the left axilla is limited due to overlying cardiac device. Density: There are areas of scattered fibroglandular tissue. There is an small oval mass associated with a ribbon shaped biopsy marker clip in lower outer right breast at posterior depth best seen on the MLO view. The mass is not well visualized on the CC view due to posterior location. This corresponds with the smaller most lateral mass seen on outside facility PET-CT and reported biopsy-proven malignancy at 7 o'clock, 7 cm from the nipple. The dominant biopsy-proven malignant mass in the right breast seen on PET-CT and reported biopsied mass at 8 o'clock, 7 cm from the nipple is not visualized mammographically due to posterior location. An additional FDG avid mass in central lower right breast at posterior depth seen on PET-CT and the mass seen on today's ultrasound exam at 6 o'clock is not visualized mammographically. A focal asymmetry with questionable architectural distortion was initially questioned in upper-outer quadrant of the left breast at middle depth which resolved on additional mammographic views. A biopsy tissue marker is seen in upper outer left breast at posterior depth. No suspicious masses or calcifications are identified in the left breast. ULTRASOUND: Targeted ultrasound with elastography was performed by a registered wireline supervisor in the bilateral breast and right axilla. There is an irregular spiculated hypoechoic mass with anti parallel orientation and posterior shadowing containing echogenic foci of calcifications and associated with a biopsy clip in the right breast at 8 o'clock, 7 cm from the nipple measuring 2.6 x 1.7 x 2.1 cm. The mass is stiff on elastography and likely abuts the chest wall musculature, although muscular involvement can not be evaluated due to posterior location and shadowing from the mass. This finding corresponds with the dominant mass on PET-CT and biopsy-proven malignancy. Approximately 1.2 cm from the dominant mass, and located more superficially, there is an additional irregular spiculated hypoechoic mass in anti parallel orientation associated with a biopsy clip at 7 o'clock, 7 cm from the nipple measuring 0.8 x 0.7 x 0.6 cm. No internal vascularity is identified. The mass is soft on elastography. This corresponds with the mass seen on mammogram and the smallest most lateral mass seen on PET-CT and biopsy-proven malignancy. There is an additional irregular spiculated hypoechoic stiff mass in the right breast at 5-6 o'clock position, 4 cm from the nipple, measuring 1.5 x 0.9 x 1.3 cm. The mass is located in the posterior depth in likely abuts the chest wall, although possible chest wall involvement can not be accurately evaluated. This mass is located approximately 3.5 cm medial to the dominant mass and corresponds to the most medial mass seen on PET-CT. This mass is not visualized mammographically due to posterior location. On PET-CT, these 3 masses span an area of approximately 8.5 cm in transverse dimension. On scanning of the upper-outer quadrant of the left breast, no focal sonographic abnormalities are identified to correspond with the questioned focal asymmetry. On scanning of the right axilla, a 1.3 x 1.3 x 1.2 cm abnormal rounded level I axillary lymph node is identified with irregular borders and effaced fatty hilum containing a biopsy clip, corresponding to biopsy-proven metastatic lymphadenopathy. Three additional abnormal level II and II right axillary lymph nodes with irregular borders are identified in the right axilla. IMPRESSION: 1. Biopsy-proven malignant right breast masses at 7 o'clock and 8 o'clock positions associated with biopsy-proven malignant right (more content not included)... [facility] Work Phone: Interpretation and review of laboratory results Normal [facility] PT Coag (PPP) [Time]on 02-08 INR Coag (PPP) [Relative time] 1.0 {INR} 0.9 - 1.1 [facility] Protime-INRon 02-09-2024 PT Coag (PPP) [Time] 11.0 s [facility] US Breast - bilateral limite don 02-09-2024 Radiology Study observation (narrative) [facility] Work Phone: aPTTon 02-09-2024 aPTT Coag (PPP) [Time] 33 s [facility] aPTT Coag (PPP) [Time]on The APTT is no longe r used for monitoring Unfractionated Heparin Therapy. For monitoring Heparin Therapy, use the Heparin Assay. [facility] Absolute lymphocyte countOrd ered By: Julianna Diaz on 01-04-2024 Lymphocytes Auto (Unsp spec) [#/Vol] 1.56 10*3/uL 0.83-4.51 [facility] Automated lymphocyte count a s percentage of total leukocytesOrdered By: Julianna oJe on 01-04-2024 Lymphocytes/100 WBC Auto (Unsp spec) 23.4 % 19-41 [facility] Basophil percentageOrdered B y: Josesitoblanca Diaz on 01-04-2024 Basophils/100 WBC (Bld) 0.6 % 0-1 [facility] Bilirubin [Mass/Vol] 0.50 mg/dL 0.20-1.00 [facility] Comment on above: For patients on eltr ombopag therapy, use of Dimension Windber TBIL is not recommended. Chloride [Moles/Vol] 101 mmol/L 98-107 [facility] Eosinophils/100 WBC (Bld) 2.4 % 0-5 [facility] Glucose [Mass/Vol] 93 mg/dL 74-106 [facility] Hemoglobin (Bld) [Mass/Vol] 13.0 g/dL 12.0-15.0 [facility] Monocytes/100 WBC (Bld) 6.4 % 0-10 W [facility] Neutrophils (Bld) [#/Vol] 4.5 10*3/uL 2.0-7.7 [facility] Neutrophils/100 WBC (Bld) 66.9 % 47-70 [facility] Potassium [Moles/Vol] 4.1 mmol/L 3.5-5.1 [facility] Protein [Mass/Vol] 8.4 g/dL 6.4-8.2 [facility] Sodium [Moles/Vol] 140 mmol/L 136-145 [facility] WBC (Bld) [#/Vol] 6.7 10*3/uL 4.4-11.0 [facility] Determination of erythrocyte mean corpuscular volume (MCV)Ordered By: Josesitoblanca Diaz on 01-04-2024 MCV (RBC) [Entitic vol] 87.7 fL 81-99 [facility] Erythrocyte distribution wid th ratioOrdered By: Julianna Diaz on 01-04-2024 Erythrocyte distribution width (RBC) [Ratio] 13.3 % 11.6-14.6 [facility] Erythrocyte distribution wid th standard deviationOrdered By: [facility] Diaz on 01-04-2024 Erythrocyte distribution width (RBC) [Entitic vol] 42.5 fL 35.1-43.9 [facility] Hematocrit Auto (Bld) [Volum e fraction]Ordered By: [facility] Diaz on 01-04-2024 Hematocrit (Bld) [Volume fraction] 40.8 % 37-47 [facility] Immature granulocytes/100 WB C Auto (Bld)Ordered By: [facility] Joe on 01-04-2024 Immature granulocytes/100 WBC (Bld) 0.300 % 0.0-0.9 [facility] Comment on above: IG% - Immature Granu locytes (promyelocytes, myelocytes and metamyelocytes) > 1% indicates that a LEFT SHIFT is Present. Laboratory - Chemistry and C hemistry - challengeOrdered By: [facility] Joe on 01-04-2024 Albumin/Globulin [Mass ratio] 1.1 {ratio} 0.9-2.4 [facility] ALP [Catalytic activity/Vol] 97 U/L 45-117 [facility] ALT [Catalytic activity/Vol] 22 U/L 13-56 [facility] CO2 [Moles/Vol] 33.0 mmol/L 21.0-32.0 [facility] Globulin (S) [Mass/Vol] 4.0 g/dL 2.2-4.2 [facility] Urea nitrogen/Creatinine [Mass ratio] 11.9 mg/mg 10-20 [facility] Laboratory - Hematology and Cell countsOrdered By: [facility] Joe on 01-04-2024 MCH (RBC) [Entitic mass] 28.0 pg 27.0-32.0 [facility] MCHC (RBC) [Mass/Vol] 31.9 g/dL 32-36 [facility] Nucleated RBC/100 WBC (Bld) [Ratio] 0 % 0-5 [facility] Platelet mean volume (Bld) [Entitic vol] 9.5 fL 6.2-12.0 [facility] Platelets (Bld) [#/Vol] 258 10*3/uL 150-450 [facility] No Panel InformationOrdered By: Julianna Diaz on 01-04-2024 Miscellaneous Test Comment SEE SCANNED REPORT [facility] Estimated GFR (MDRD) Amer 64 mL/min >60 [facility] Comment on above: GFR Calc Estimated GFR (MDRD) Non-Af Amer 53 mL/min >60 [facility] Comment on above: Non- GFR Calc RBC Auto (Bld) [#/Vol]Ordere d By: Julianna Diaz on 01-04-2024 RBC (Bld) [#/Vol] 4.65 10*6/uL 4.2-5.4 [facility] Serum or plasma calcium robert urement (mass/volume)Ordered By: Julianna Diaz on 01-04-2024 Calcium [Mass/Vol] 8.9 mg/dL 8.5-10.1 [facility] Serum or plasma creatinine m easurement (mass/volume)Ordered By: Julianna Diaz on 01-04-2024 Creatinine [Mass/Vol] 1.09 mg/dL 0.55-1.02 [facility] Comment on above: The validity of the calculated GFR & GFRAA in patients over 70 years has not been determined. Clinical correlation is essential. Serum or plasma urea nitroge n measurement (mass/volume)Ordered By: Julianna Diaz on 01-04-2024 Urea nitrogen [Mass/Vol] 13 mg/dL 7-18 [facility] Thin prep Papanicolaou smear with manual screeningOrdered By: Julianna Diaz on 01-04-2024 Thin prep Papanicolaou smear with manual screening 4.4 g/dL 3.2-5.0 [facility] Thin prep Papanicolaou smear with manual screening 16 U/L 15-37 [facility] Thin prep Papanicolaou smear with manual screening 6 5-15 [facility] Laboratory - Hematology and Cell countson 11-24-2023 HbA1c (Bld) [Mass fraction] 5.9 % 4.2-6.3 [facility] [address] ANGIOGRAPHY CHEST W/CONTR Holly 11-04-2023 CT ANGIOGRAPHY CHEST W/CONTRAST ORIGINAL EXAMINATION: CTA OF THE CHEST11/04/2023 3:56 [...] Date: 11/04/2023 5:21:23 PM Ordering Provider: REMI Shah [facility] ([place]) .Auto Diffon 10-26-2023 Basophil, Absolute 0.1 10 3/mcL Normal 0.0-0.2 [facility] ([place]) Comment on above: Performed By: #### P RO, ADIFF, CBC, ANEU, GFR, BMP #### [address] [place], [place] [address] Basophils/100 WBC (Bld) 1.2 % Normal 0.0-2.5 [facility] ([place]) Comment on above: Performed By: #### P RO, ADIFF, CBC, ANEU, GFR, BMP #### [address] [address] Eosinophil, Absolute 0.1 10 3/mcL Normal 0.0-0.4 [facility] ([place]) Comment on above: Performed By: #### P RO, ADIFF, CBC, ANEU, GFR, BMP #### [address] [address] Eosinophils/100 WBC (Bld) 2.4 % Normal 0.0-7.0 [facility] ([place] Comment on above: Performed By: #### P RO, ADIFF, CBC, ANEU, GFR, BMP #### [address] [address] Lymphocyte, Absolute 1.3 10 3/mcL Normal 0.8-3.9 [facility] ([place] Comment on above: Performed By: #### P RO, ADIFF, CBC, ANEU, GFR, BMP #### [address] [address] Lymphocytes/100 WBC (Bld) 22.1 % Normal 10.0-50.0 [facility] ([place] Comment on above: Performed By: #### P RO, ADIFF, CBC, ANEU, GFR, BMP #### [address] [address] Monocyte, Absolute 0.3 10 3/mcL Normal 0.2-1.0 [facility] ([place] Comment on above: Performed By: #### P RO, ADIFF, CBC, ANEU, GFR, BMP #### [address] [address] Monocytes/100 WBC (Bld) 5.8 % Normal 1.7-13.0 A [facility] ([place]) Comment on above: Performed By: #### P RO, ADIFF, CBC, ANEU, GFR, BMP #### [address] [address] Neutrophils/100 WBC (Bld) 68.5 % Normal 37.0-80.0 [facility] ([place] Comment on above: Performed By: #### P RO, ADIFF, CBC, ANEU, GFR, BMP #### [address] [address] .GFRon 10-26-2023 GFR 62 ml/min/1.73sqm Normal [facility] ([place]) Comment on above: Result Comment: GFR Population mean for , Non- Americans Ages 20-29 = 116 mL/min/1.73 sq.m. Ages 30-39 = 107 mL/min/1.73 sq.m. Ages 40-49 = 99 mL/min/1.73 sq.m. Ages 50-59 = 93 mL/min/1.73 sq.m. Ages 60-69 = 85 mL/min/1.73 sq.m. Ages 70+ = 75 mL/min/1.73 sq.m. Chronic Kidney Disease: Less than 60 mL/min/1.73 square meters End Stage Renal Disease: Less than 15 mL/min/1.73 square meters Performed By: #### G FR, PRO, CMP, ADIFF, ANEU, CBC #### [address] [address] GFR Non- 51 ml/min/1.73sqm Normal [facility] ([place] Comment on above: Result Comment: GFR Population mean for , Non- Americans Ages 20-29 = 116 mL/min/1.73 sq.m. Ages 30-39 = 107 mL/min/1.73 sq.m. Ages 40-49 = 99 mL/min/1.73 sq.m. Ages 50-59 = 93 mL/min/1.73 sq.m. Ages 60-69 = 85 mL/min/1.73 sq.m. Ages 70+ = 75 mL/min/1.73 sq.m. Chronic Kidney Disease: Less than 60 mL/min/1.73 square meters End Stage Renal Disease: Less than 15 mL/min/1.73 square meters Performed By: #### G FR, PRO, CMP, ADIFF, ANEU, CBC #### [address] [address] .NEUABSon 10-26-2023 Neutrophil, Absolute 4.1 10 3/mcL Normal 2.9-6.2 [facility] ([place]) Comment on above: Performed By: #### P RO, ADIFF, CBC, ANEU, GFR, BMP #### [address] [address] BMPon 10-26-2023 BUN/Creatinine Ratio 13 ratio Normal 7-27 [facility] ([place] Comment on above: Performed By: #### P RO, ADIFF, CBC, ANEU, GFR, BMP #### [address] [address] Calcium [Mass/Vol] 8.6 mg/dL Normal 8.4-10.2 [facility] ([place]) Comment on above: Performed By: #### P RO, ADIFF, CBC, ANEU, GFR, BMP #### [address] [address] Chloride [Moles/Vol] 103 mmol/L Normal 98-107 [facility] ([place] Comment on above: Performed By: #### P RO, ADIFF, CBC, ANEU, GFR, BMP #### [address] [address] CO2 [Moles/Vol] 32 mmol/L High 23-31 [facility] ([place] Comment on above: Performed By: #### P RO, ADIFF, CBC, ANEU, GFR, BMP #### [address] [address] Creatinine [Mass/Vol] 1.07 mg/dL High 0.55-1.02 [facility] ([place] Comment on above: Performed By: #### P RO, ADIFF, CBC, ANEU, GFR, BMP #### [address] [address] Electrolyte Balance 8.0 mEq/L Normal 4.0-15.0 [facility] ([place]) Comment on above: Performed By: #### P RO, ADIFF, CBC, ANEU, GFR, BMP #### [address] [address] Glucose [Mass/Vol] 120 mg/dL High 80-115 [facility] ([place] Comment on above: Performed By: #### P RO, ADIFF, CBC, ANEU, GFR, BMP #### [address] [address] Potassium [Moles/Vol] 4.5 mmol/L Normal 3.5-5.1 [facility] ([place] Comment on above: Performed By: #### P RO, ADIFF, CBC, ANEU, GFR, BMP #### [address] [address] Sodium [Moles/Vol] 143 mmol/L Normal 136-145 [facility] ([place] Comment on above: Performed By: #### P RO, ADIFF, CBC, ANEU, GFR, BMP #### [address] [address] Urea nitrogen [Mass/Vol] 14 mg/dL Normal 7-18 [facility] ([place] Comment on above: Performed By: #### P RO, ADIFF, CBC, ANEU, GFR, BMP #### [address] [address] CBCon 10-26-2023 Erythrocyte distribution width (RBC) [Ratio] 13.6 % Normal 11.5-14.5 [facility] ([place] Comment on above: Performed By: #### P RO, ADIFF, CBC, ANEU, GFR, BMP #### [address] [address] Hematocrit (Bld) [Volume fraction] 39.1 % Normal 37.0-47.0 [facility] ([place] Comment on above: Performed By: #### P RO, ADIFF, CBC, ANEU, GFR, BMP #### [address] [address] Hgb 13.3 G/dL Normal 12.0-16.0 [facility] ([place] Comment on above: Performed By: #### P RO, ADIFF, CBC, ANEU, GFR, BMP #### [address] [address] MCH (RBC) [Entitic mass] 29.1 pg Normal 27.0-31.2 [facility] ([place] Comment on above: Performed By: #### P RO, ADIFF, CBC, ANEU, GFR, BMP #### [address] [address] MCHC 34.0 G/dL Normal 33.0-37.0 [facility] ([place] Comment on above: Performed By: #### P RO, ADIFF, CBC, ANEU, GFR, BMP #### [place] [address] MCV (RBC) [Entitic vol] 85.6 fL Normal 80.0-94.0 A [facility] ([place]) Comment on above: Performed By: #### P RO, ADIFF, CBC, ANEU, GFR, BMP #### [place] [address] Platelet 245 10 3/mcL Normal 130-400 [facility] ([place] Comment on above: Performed By: #### P RO, ADIFF, CBC, ANEU, GFR, BMP #### [place] [address] Platelet mean volume (Bld) [Entitic vol] 7.8 fL Normal 7.4-10.4 [facility] ([place] Comment on above: Performed By: #### P RO, ADIFF, CBC, ANEU, GFR, BMP #### [place] [id number] RBC 4.57 10 6/mcL Normal 4.20-5.40 [facility] ([place] Comment on above: Performed By: #### P RO, ADIFF, CBC, ANEU, GFR, BMP #### [place] [phone] WBC 6.0 10 3/mcL Normal 4.6-10.8 [facility] ([place] Comment on above: Performed By: #### P RO, ADIFF, CBC, ANEU, GFR, BMP #### [place] [phone] LABORATORYOrdered By: SYSTEM SYSTEM on 10-26-2023 Basophil, Absolute 0.1 103/mcL Normal 0.0 - 0.2 10^3/mcL AO Workflow SS Basophils/100 WBC (Bld) 1.2 % Normal 0.0 - 2.5 % AO Workflow SS Calcium [Mass/Vol] 8.6 mg/dL Normal 8.4 - 10. 2 mg/dL AO ADM SS Chloride [Moles/Vol] 103 mmol/L Normal 98 - 10 7 mmol/L AO ADM SS CO2 [Moles/Vol] 32 mmol/L High 23 - 31 mmol/L AO ADM SS Creatinine [Mass/Vol] 1.07 mg/dL High 0.55 - 1.02 mg/dL AO ADM SS Electrolyte Balance 8.0 mEq/L Normal 4.0 - 15 .0 mEq/L AO ADM SS Eosinophil, Absolute 0.1 103/mcL Normal 0.0 - 0 .4 10^3/mcL AO Workflow SS Eosinophils/100 WBC (Bld) 2.4 % Normal 0.0 - 7.0 % AO Workflow SS Erythrocyte distribution width (RBC) [Ratio] 13.6 % Normal 11.5 - 14.5 % AO Workflow SS GFR/1.73 sq M.predicted among blacks MDRD (S/P/Bld) [Vol rate/Area] 62 ml/min/1.73sqm Invalid Interpretation Code AO Chemistry S Comment on above: Interpretive Data: GFR Population mean for , Non- Americans Ages 20-29 = 116 mL/min/1.73 sq.m. Ages 30-39 = 107 mL/min/1.73 sq.m. Ages 40-49 = 99 mL/min/1.73 sq.m. Ages 50-59 = 93 mL/min/1.73 sq.m. Ages 60-69 = 85 mL/min/1.73 sq.m. Ages 70+ = 75 mL/min/1.73 sq.m. Chronic Kidney Disease: Less than 60 mL/min/1.73 square meters End Stage Renal Disease: Less than 15 mL/min/1.73 square meters GFR/1.73 sq M.predicted among non-blacks MDRD (S/P/Bld) [Vol rate/Area] 51 ml/min/1.73sqm Invalid Interpretation Code AO Chemistry S Comment on above: Interpretive Data: GFR Population mean for , Non- Americans Ages 20-29 = 116 mL/min/1.73 sq.m. Ages 30-39 = 107 mL/min/1.73 sq.m. Ages 40-49 = 99 mL/min/1.73 sq.m. Ages 50-59 = 93 mL/min/1.73 sq.m. Ages 60-69 = 85 mL/min/1.73 sq.m. Ages 70+ = 75 mL/min/1.73 sq.m. Chronic Kidney Disease: Less than 60 mL/min/1.73 square meters End Stage Renal Disease: Less than 15 mL/min/1.73 square meters Glucose [Mass/Vol] 120 mg/dL High 80 - 115 mg/dL AO ADM SS Hematocrit (Bld) [Volume fraction] 39.1 % Normal 37.0 - 47.0 % AO Workflow SS Hemoglobin (Bld) [Mass/Vol] 13.3 G/dL Normal 12.0 - 16.0 G/dL AO Workflow SS Lymphocyte, Absolute 1.3 103/mcL Normal 0.8 - 3 .9 10^3/mcL AO Workflow SS Lymphocytes/100 WBC (Bld) 22.1 % Normal 10 .0 - 50.0 % AO Workflow SS MCH (RBC) [Entitic mass] 29.1 pg Normal 27. 0 - 31.2 pg AO Workflow SS MCHC 34.0 G/dL Normal 33.0 - 37.0 G/dL AO Workflow SS MCV (RBC) [Entitic vol] 85.6 fL Normal 80.0 - 94.0 fL AO Workflow SS Monocyte, Absolute 0.3 103/mcL Normal 0.2 - 1.0 10^3/mcL AO Workflow SS Monocytes/100 WBC (Bld) 5.8 % Normal 1.7 - 13.0 % AO Workflow SS Neutrophil, Absolute 4.1 103/mcL Normal 2.9 - 6 .2 10^3/mcL AO Workflow SS Neutrophils/100 WBC (Bld) 68.5 % Normal 37 .0 - 80.0 % AO Workflow SS Platelet mean volume (Bld) [Entitic vol] 7.8 fL Normal 7.4 - 10.4 fL AO Workflow SS Platelets (Bld) [#/Vol] 245 103/mcL Normal 130 - 400 10^3/mcL AO Workflow SS Potassium [Moles/Vol] 4.5 mmol/L Normal 3.5 - 5.1 mmol/L AO ADM SS RBC (Bld) [#/Vol] 4.57 106/mcL Normal 4.20 - 5.4 0 10^6/mcL AO Workflow SS Sodium [Moles/Vol] 143 mmol/L Normal 136 - 145 mmol/L AO ADM SS Urea nitrogen [Mass/Vol] 14 mg/dL Normal 7 - 18 mg/d L AO ADM SS Urea nitrogen/Creatinine [Mass ratio] 13 ratio Normal 7 - 27 ratio AO ADM SS WBC (Bld) [#/Vol] 6.0 103/mcL Normal 4.6 - 10.8 10^3/mcL AO Workflow SS LABORATORYOrdered By: David Kan on 10-26-2023 INR Coag (PPP) [Relative time] 0.9 {INR} Invalid Interpretation Code AO [facility] SS Comment on above: Interpretive Data: Melecio mchugh [employer] (CHEST, 1991, 102:[id number]) recommended therapeutic range for oral anticoagulant therapy is: LOW RISK: Prophylaxis of venous thrombosis INR: 2.0-3.0 Treatment of pulmonary embolism 2.0-3.0 Prevention of systemic embolism 2.0-3.0 HIGH RISK: Mechanical prosthetic valves 2.5-3.5 PT Coag (PPP) [Time] 10.5 s Normal 9.0 - 1 4.2 seconds AO [facility] SS PROon 10-26-2023 PT Coag (PPP) [Time] 10.5 s Normal 9.0-14.2 [facility] ([place]) Comment on above: Performed By: #### G FR, PRO, CMP, ADIFF, ANEU, CBC #### [address] [address] PT International Ratio 0.9 Normal [facility] ([place]) Comment on above: Result Comment: [employer] (CHEST, 1991, 102:[id number]) recommended therapeutic range for oral anticoagulant therapy is: LOW RISK: Prophylaxis of venous thrombosis INR: 2.0-3.0 Treatment of pulmonary embolism 2.0-3.0 Prevention of systemic embolism 2.0-3.0 HIGH RISK: Mechanical prosthetic valves 2.5-3.5 Performed By: #### G FR, PRO, CMP, ADIFF, ANEU, CBC #### [place] [address] Absolute lymphocyte countOrd ered By: Daniela Fallon on 08-13-2023 Lymphocytes Auto (Unsp spec) [#/Vol] 1.13 10*3/uL 0.83-4.51 [facility] Basophil percentageOrdered B y: Daniela Fallon on 08-13-2023 Basophils/100 WBC (Bld) 0.6 % 0-1 W [facility] Bilirubin [Mass/Vol] 1.00 mg/dL 0.20-1.00 [facility] Comment on above: For patients on eltr ombopag therapy, use of Dimension Windber TBIL is not recommended. Chloride [Moles/Vol] 103 mmol/L 98-107 [facility] Cholesterol [Mass/Vol] 140 mg/dL <200 [facility] Comment on above: <200 mg/dL Desirable 200-240 mg/dL Borderline >240 mg/dL High Risk Eosinophils/100 WBC (Bld) 2.8 % 0-5 [facility] Glucose [Mass/Vol] 128 mg/dL 74-106 [facility] Comment on above: Fasting Glucose resu lt greater than or equal to 126 mg/dL suggests DIABETES MELLITUS per A.D.A. criteria. Neutrophils (Bld) [#/Vol] 3.3 10*3/uL 2.0-7.7 [facility] Neutrophils/100 WBC (Bld) 66.3 % 47-70 [facility] Potassium [Moles/Vol] 4.2 mmol/L 3.5-5.1 [facility] Protein [Mass/Vol] 7.6 g/dL 6.4-8.2 [facility] Sodium [Moles/Vol] 137 mmol/L 136-145 [facility] Triglyceride [Mass/Vol] 196 mg/dL <199 [facility] Comment on above: The drugs N-Acetylcy steine and Metamizole may falsely depress this assay.Serum Triglycerides Reference Interval Normal <150 mg/dL Borderline high 150 - 199 mg/dL High 200 - 499 mg/dL Very High > or = 500 mg/dL WBC (Bld) [#/Vol] 5.0 10*3/uL 4.4-11.0 [facility] Blood erythrocytes count (nu mber/volume)Ordered By: Daniela Fallon on 08-13-2023 RBC (Bld) [#/Vol] 4.54 10*6/uL 4.2-5.4 [facility] Blood hemoglobin measurement (mass/volume)Ordered By: Daniela Fallon on 08-13-2023 Hemoglobin (Bld) [Mass/Vol] 12.9 g/dL 12.0-15.0 [facility] Blood lymphocytes/100 leukoc ytesOrdered By: [facility] Fallon on 08-13-2023 Lymphocytes/100 WBC (Bld) 22.8 % 19-41 [facility] Blood monocytes/100 leukocyt esOrdered By: sallymarthaderik Fallon on 08-13-2023 Monocytes/100 WBC (Bld) 7.3 % 0-10 [facility] Blood platelet mean volumeOr dered By: Daniela Fallon on 08-13-2023 Platelet mean volume (Bld) [Entitic vol] 9.9 fL 6.2-12.0 [facility] Determination of erythrocyte mean corpuscular volume (MCV)Ordered By: Daniela Fallon on 08-13-2023 MCV (RBC) [Entitic vol] 89.6 fL 81-99 [facility] Hematocrit Auto (Bld) [Volum e fraction]Ordered By: Daniela Fallon on 08-13-2023 Hematocrit (Bld) [Volume fraction] 40.7 % 37-47 [facility] Laboratory - Chemistry and C hemistry - challengeOrdered By: vicki Fallon on 08-13-2023 ALP [Catalytic activity/Vol] 95 U/L 45-117 [facility] ALT [Catalytic activity/Vol] 21 U/L 13-56 [facility] CO2 [Moles/Vol] 29.0 mmol/L 21.0-32.0 [facility] Globulin (S) [Mass/Vol] 3.7 g/dL 2.2-4.2 [facility] Urea nitrogen/Creatinine [Mass ratio] 15.3 mg/mg 10-20 [facility] Laboratory - Hematology and Cell countsOrdered By: Daniela Fallon on 08-13-2023 Erythrocyte distribution width (RBC) [Entitic vol] 44.4 fL 35.1-43.9 [facility] Erythrocyte distribution width (RBC) [Ratio] 13.6 % 11.6-14.6 [facility] Immature granulocytes/100 WBC (Bld) 0.200 % 0.0-0.9 [facility] Comment on above: IG% - Immature Granu locytes (promyelocytes, myelocytes and metamyelocytes) > 1% indicates that a LEFT SHIFT is Present. MCH (RBC) [Entitic mass] 28.4 pg 27.0-32.0 [facility] Nucleated RBC/100 WBC (Bld) [Ratio] 0 % 0-5 [facility] Laboratory - Hematology and Cell countson 08-13-2023 HbA1c (Bld) [Mass fraction] 5.8 % 4.2-6.3 [facility] MCHC Auto (RBC) [Mass/Vol]Or dered By: Daniela Fallon on 08-13-2023 MCHC (RBC) [Mass/Vol] 31.7 g/dL 32-36 [facility] No Panel InformationOrdered By: Daniela Fallon on 08-13-2023 Estimated GFR (MDRD) Amer 63 mL/min >60 [facility] Comment on above: GFR Calc Estimated GFR (MDRD) Non-Af Amer 52 mL/min >60 [facility] Comment on above: Non- GFR Calc Platelets bldOrdered By: Moncho Fallon on 08-13-2023 Platelets (Bld) [#/Vol] 258 10*3/uL 150-450 [facility] Serum or plasma albumin robert urement (mass/volume)Ordered By: Daniela Fallon on 08-13-2023 Albumin [Mass/Vol] 3.9 g/dL 3.2-5.0 [facility] Serum or plasma albumin/glob ulin mass ratioOrdered By: Daniela Fallon on 08-13-2023 Albumin/Globulin [Mass ratio] 1.1 {ratio} 0.9-2.4 [facility] Serum or plasma calcium robert urement (mass/volume)Ordered By: Daniela Fallon on 08-13-2023 Calcium [Mass/Vol] 8.6 mg/dL 8.5-10.1 [facility] Serum or plasma cholesterol in HDL measurement (mass/volume)Ordered By: Daniela Fallon on 08-13-2023 Cholesterol in HDL [Mass/Vol] 44 mg/dL >40 [facility] Comment on above: The drugs N-Acetylcy steine and Metamizole may falsely depress this assay. Reference Range HDL <40 mg/dL Low HDL Cholesterol HDL >or= 60 mg/dL High HDL Cholesterol Serum or plasma cholesterol in VLDL measurement (mass/volume)Ordered By: Daniela Fallon on 08-13-2023 Cholesterol in VLDL [Mass/Vol] 39 mg/dL 5-40 [facility] Serum or plasma creatinine m easurement (mass/volume)Ordered By: Daniela Fallon on 08-13-2023 Creatinine [Mass/Vol] 1.11 mg/dL 0.55-1.02 [facility] Comment on above: The validity of the calculated GFR & GFRAA in patients over 70 years has not been determined. Clinical correlation is essential. Serum or plasma low density lipoprotein (LDL) cholesterol measurement (mass/volume)Ordered By: Daniela Fallon on 08-13-2023 Cholesterol in LDL [Mass/Vol] 57 mg/dL 0-130 [facility] Serum or plasma urea nitroge n measurement (mass/volume)Ordered By: Daniela Fallon on 08-13-2023 Urea nitrogen [Mass/Vol] 17 mg/dL 7-18 [facility] Thin prep Papanicolaou smear with manual screeningOrdered By: Daniela Fallon on 08-13-2023 Thin prep Papanicolaou smear with manual screening 13 U/L 15-37 [facility] Thin prep Papanicolaou smear with manual screening 5 5-15 [facility] .Auto Diffon 07-05-2023 Basophil, Absolute 0.0 10 3/mcL Normal 0.0-0.3 [facility] ([place]) Comment on above: Performed By: #### G FR, PRO, CMP, ADIFF, ANEU, CBC #### [address] [address] Basophils/100 WBC (Bld) 0.9 % Normal 0.0-2.5 A [facility] ([place]) Comment on above: Performed By: #### G FR, PRO, CMP, ADIFF, ANEU, CBC #### [address] [address] Eosinophil, Absolute 0.1 10 3/mcL Normal 0.0-0.7 [facility] ([place]) Comment on above: Performed By: #### G FR, PRO, CMP, ADIFF, ANEU, CBC #### [address] [address] Eosinophils/100 WBC (Bld) 2.6 % Normal 0.0-6.0 [facility] ([place]) Comment on above: Performed By: #### G FR, PRO, CMP, ADIFF, ANEU, CBC #### [address] [address] Lymphocyte, Absolute 1.1 10 3/mcL Normal 0.9-4.3 [facility] ([place]) Comment on above: Performed By: #### G FR, PRO, CMP, ADIFF, ANEU, CBC #### [address] [address] Lymphocytes/100 WBC (Bld) 22.3 % Normal 20.0-40.0 [facility] ([place] Comment on above: Performed By: #### G FR, PRO, CMP, ADIFF, ANEU, CBC #### [address] [address] Monocyte, Absolute 0.3 10 3/mcL Normal 0.1-1.4 [facility] ([place]) Comment on above: Performed By: #### G FR, PRO, CMP, ADIFF, ANEU, CBC #### [address] [address] Monocytes/100 WBC (Bld) 6.4 % Normal 2.0-13.0 A [facility] ([place]) Comment on above: Performed By: #### G FR, PRO, CMP, ADIFF, ANEU, CBC #### [address] [address] Neutrophils/100 WBC (Bld) 67.8 % Normal 50.0-75.0 [facility] ([place] Comment on above: Performed By: #### G FR, PRO, CMP, ADIFF, ANEU, CBC #### [address] [address] .GFRon 07-05-2023 GFR >60 Normal [facility] ([place]) Comment on above: Result Comment: GFR Population mean for , Non- Americans Ages 20-29 = 116 mL/min/1.73 sq.m. Ages 30-39 = 107 mL/min/1.73 sq.m. Ages 40-49 = 99 mL/min/1.73 sq.m. Ages 50-59 = 93 mL/min/1.73 sq.m. Ages 60-69 = 85 mL/min/1.73 sq.m. Ages 70+ = 75 mL/min/1.73 sq.m. Chronic Kidney Disease: Less than 60 mL/min/1.73 square meters End Stage Renal Disease: Less than 15 mL/min/1.73 square meters Performed By: #### G FR, PRO, CMP, ADIFF, ANEU, CBC #### [address] [address] GFR Non- 58 ml/min/1.73sqm Normal [facility] ([place]) Comment on above: Result Comment: GFR Population mean for , Non- Americans Ages 20-29 = 116 mL/min/1.73 sq.m. Ages 30-39 = 107 mL/min/1.73 sq.m. Ages 40-49 = 99 mL/min/1.73 sq.m. Ages 50-59 = 93 mL/min/1.73 sq.m. Ages 60-69 = 85 mL/min/1.73 sq.m. Ages 70+ = 75 mL/min/1.73 sq.m. Chronic Kidney Disease: Less than 60 mL/min/1.73 square meters End Stage Renal Disease: Less than 15 mL/min/1.73 square meters Performed By: #### G FR, PRO, CMP, ADIFF, ANEU, CBC #### [place] [id number] .NEUABSon 07-05-2023 Neutrophil, Absolute 3.4 10 3/mcL Normal 2.3-8.1 [facility] ([place]) Comment on above: Performed By: #### G FR, PRO, CMP, ADIFF, ANEU, CBC #### [place] [id number] CBCon 07-05-2023 Erythrocyte distribution width (RBC) [Ratio] 13.8 % Normal 11.5-15.5 [facility] ([place] Comment on above: Performed By: #### G FR, PRO, CMP, ADIFF, ANEU, CBC #### [place] [address] Hematocrit (Bld) [Volume fraction] 39.2 % Normal 34.0-46.0 [facility] ([place] Comment on above: Performed By: #### G FR, PRO, CMP, ADIFF, ANEU, CBC #### [place] [address] Hgb 13.3 G/dL Normal 12.0-16.0 [facility] ([place] Comment on above: Performed By: #### G FR, PRO, CMP, ADIFF, ANEU, CBC #### [place] [address] MCH (RBC) [Entitic mass] 29.3 pg Normal 27.0-33.0 [facility] ([place] Comment on above: Performed By: #### G FR, PRO, CMP, ADIFF, ANEU, CBC #### [place] [address] MCHC 33.9 G/dL Normal 32.0-36.0 [facility] ([place] Comment on above: Performed By: #### G FR, PRO, CMP, ADIFF, ANEU, CBC #### [place] [address] MCV (RBC) [Entitic vol] 86.4 fL Normal 80.0-99.0 A [facility] ([place]) Comment on above: Performed By: #### G FR, PRO, CMP, ADIFF, ANEU, CBC #### [place] [address] Platelet 258 10 3/mcL Normal 150-450 [facility] ([place] Comment on above: Performed By: #### G FR, PRO, CMP, ADIFF, ANEU, CBC #### [place] [address] Platelet mean volume (Bld) [Entitic vol] 7.8 fL Normal 6.6-10.5 [facility] ([place] Comment on above: Performed By: #### G FR, PRO, CMP, ADIFF, ANEU, CBC #### [place] [id number] RBC 4.54 10 6/mcL Normal 4.10-5.30 [facility] ([place] Comment on above: Performed By: #### G FR, PRO, CMP, ADIFF, ANEU, CBC #### [place] [address] WBC 5.0 10 3/mcL Normal 4.5-10.8 [facility] ([place] Comment on above: Performed By: #### G FR, PRO, CMP, ADIFF, ANEU, CBC #### [place] [address] CMPon 07-05-2023 Albumin Level 4.4 G/dL Normal 3.2-4.8 [facility] ([place] Comment on above: Performed By: #### G FR, PRO, CMP, ADIFF, ANEU, CBC #### [place] [address] Albumin/Globulin [Mass ratio] 1.5 {ratio} Normal 0.9-1.6 [facility] ([place] Comment on above: Performed By: #### G FR, PRO, CMP, ADIFF, ANEU, CBC #### [place] [address] ALP [Catalytic activity/Vol] 96 U/L Normal 38-126 [facility] ([place] Comment on above: Performed By: #### G FR, PRO, CMP, ADIFF, ANEU, CBC #### [address] [address] ALT [Catalytic activity/Vol] 13 U/L Normal 10-49 [facility] ([place] Comment on above: Performed By: #### G FR, PRO, CMP, ADIFF, ANEU, CBC #### [address] [address] AST [Catalytic activity/Vol] 14 U/L Normal 8-34 [facility] ([place] Comment on above: Performed By: #### G FR, PRO, CMP, ADIFF, ANEU, CBC #### [address] [address] Bili Total 0.50 mg/dL Normal 0.20-1.20 [facility] ([place]) Comment on above: Result Comment: Use of this assay is not recommended for patients undergoing treatment with eltrombopag due to the potential for falsely elevated results. Performed By: #### G FR, PRO, CMP, ADIFF, ANEU, CBC #### [place] [id number] BUN/Creatinine Ratio 15.8 ratio Normal 10.0-22.0 [facility] ([place]) Comment on above: Performed By: #### G FR, PRO, CMP, ADIFF, ANEU, CBC #### [address] [address] Calcium [Mass/Vol] 9.2 mg/dL Normal 8.7-10.4 [facility] ([place]) Comment on above: Performed By: #### G FR, PRO, CMP, ADIFF, ANEU, CBC #### [address] [address] Chloride [Moles/Vol] 103 mmol/L Normal 98-110 [facility] ([place]) Comment on above: Performed By: #### G FR, PRO, CMP, ADIFF, ANEU, CBC #### [address] [address] CO2 [Moles/Vol] 29 mmol/L Normal 22-32 [facility] ([place] Comment on above: Performed By: #### G FR, PRO, CMP, ADIFF, ANEU, CBC #### [address] [address] Creatinine [Mass/Vol] 0.95 mg/dL Normal 0.50-1.20 [facility] ([place]) Comment on above: Performed By: #### G FR, PRO, CMP, ADIFF, ANEU, CBC #### [address] [address] Electrolyte Balance 8.0 mEq/L Normal 4.0-15.0 [facility] ([place]) Comment on above: Performed By: #### G FR, PRO, CMP, ADIFF, ANEU, CBC #### [place] [id number] Globulin 2.9 G/dL Normal 1.5-3.8 [facility] ([place] Comment on above: Performed By: #### G FR, PRO, CMP, ADIFF, ANEU, CBC #### [place] [id number] Glucose [Mass/Vol] 116 mg/dL High 82-115 [facility] ([place] Comment on above: Performed By: #### G FR, PRO, CMP, ADIFF, ANEU, CBC #### [place] [id number] Potassium [Moles/Vol] 4.3 mmol/L Normal 3.5-5.0 [facility] ([place]) Comment on above: Result Comment: Spec imen slightly hemolyzed. Performed By: #### G FR, PRO, CMP, ADIFF, ANEU, CBC #### [place] [id number] Sodium [Moles/Vol] 140 mmol/L Normal 136-145 [facility] ([place] Comment on above: Performed By: #### G FR, PRO, CMP, ADIFF, ANEU, CBC #### [place] [id number] Total Protein 7.3 G/dL Normal 5.7-8.2 [facility] ([place]) Comment on above: Result Comment: No te - New Reference Range in effect 20 Performed By: #### G FR, PRO, CMP, ADIFF, ANEU, CBC #### [place] [id number] [place] [address] Urea nitrogen [Mass/Vol] 15.0 mg/dL Normal 8.0-22.0 [facility] ([place] Comment on above: Performed By: #### G FR, PRO, CMP, ADIFF, ANEU, CBC #### [place] [id number] [place] [address] LABORATORYOrdered By: SYSTEM SYSTEM on 07-05-2023 Albumin BCP dye [Mass/Vol] 4.4 G/dL Invalid Interpretation Code 3.2 - 4.8 G/dL ADM SS Albumin/Globulin [Mass ratio] 1.5 {ratio} Invalid Interpretation Code 0.9 - 1.6 ratio AH ADM SS ALP [Catalytic activity/Vol] 96 U/L Invalid Interpretation Code 38 - 126 U/L AH ADM SS ALT No additional P-5'-P [Catalytic activity/Vol] 13 U/L Invalid Interpretation Code 10 - 49 U/L AH ADM SS AST [Catalytic activity/Vol] 14 U/L Invalid Interpretation Code 8 - 34 U/L AH ADM SS Basophils (Bld) [#/Vol] 0.0 103/mcL Invalid Interpretation Code 0.0 - 0.3 10^3/mcL AH Workflow SS Basophils/100 WBC (Bld) 0.9 % Invalid Interpretation Code 0.0 - 2.5 % Workflow SS Bilirubin [Mass/Vol] 0.50 mg/dL Invalid Interpretation Code 0.20 - 1.20 mg/dL AH ADM SS Comment on above: Interpretive Data: U se of this assay is not recommended for patients undergoing treatment with eltrombopag due to the potential for falsely elevated results. Calcium [Mass/Vol] 9.2 mg/dL Invalid Interpretation Code 8.7 - 10.4 mg/dL AH ADM SS Chloride [Moles/Vol] 103 mmol/L Invalid Interpretation Code 98 - 110 mEq/L AH ADM SS CO2 [Moles/Vol] 29 mmol/L Invalid Interpretation Code 22 - 32 mEq/L AH ADM SS Creatinine [Mass/Vol] 0.95 mg/dL Invalid Interpretation Code 0.50 - 1.20 mg/dL AH ADM SS Electrolyte Balance 8.0 mEq/L Invalid Interpretation Code 4.0 - 15.0 mEq/L AH ADM SS Eosinophils (Bld) [#/Vol] 0.1 103/mcL Invali d Interpretation Code 0.0 - 0.7 10^3/mcL Workflow SS Eosinophils/100 WBC (Bld) 2.6 % Invali d Interpretation Code 0.0 - 6.0 % Workflow SS Erythrocyte distribution width (RBC) [Ratio] 13.8 % Invalid Interpretation Code 11.5 - 15.5 % Workflow SS GFR/1.73 sq M.predicted among blacks MDRD (S/P/Bld) [Vol rate/Area] ml/min/1.73sqm Invalid Interpretation Code Chemistry S Comment on above: Interpretive Data: GFR Population mean for , Non- Americans Ages 20-29 = 116 mL/min/1.73 sq.m. Ages 30-39 = 107 mL/min/1.73 sq.m. Ages 40-49 = 99 mL/min/1.73 sq.m. Ages 50-59 = 93 mL/min/1.73 sq.m. Ages 60-69 = 85 mL/min/1.73 sq.m. Ages 70+ = 75 mL/min/1.73 sq.m. Chronic Kidney Disease: Less than 60 mL/min/1.73 square meters End Stage Renal Disease: Less than 15 mL/min/1.73 square meters GFR/1.73 sq M.predicted among non-blacks MDRD (S/P/Bld) [Vol rate/Area] 58 ml/min/1.73sqm Invalid Interpretation Code Chemistry S Comment on above: Interpretive Data: GFR Population mean for , Non- Americans Ages 20-29 = 116 mL/min/1.73 sq.m. Ages 30-39 = 107 mL/min/1.73 sq.m. Ages 40-49 = 99 mL/min/1.73 sq.m. Ages 50-59 = 93 mL/min/1.73 sq.m. Ages 60-69 = 85 mL/min/1.73 sq.m. Ages 70+ = 75 mL/min/1.73 sq.m. Chronic Kidney Disease: Less than 60 mL/min/1.73 square meters End Stage Renal Disease: Less than 15 mL/min/1.73 square meters Globulin 2.9 G/dL Invalid Interpretation Code 1.5 - 3.8 G/dL ADM SS Glucose [Mass/Vol] 116 mg/dL Invalid Interpretation Code 82 - 115 mg/dL ADM SS Hematocrit (Bld) [Volume fraction] 39.2 % Invalid Interpretation Code 34.0 - 46.0 % AH Workflow SS Hemoglobin (Bld) [Mass/Vol] 13.3 G/dL Invalid Interpretation Code 12.0 - 16.0 G/dL AH Workflow SS Lymphocytes (Bld) [#/Vol] 1.1 103/mcL Invali d Interpretation Code 0.9 - 4.3 10^3/mcL AH Workflow SS Lymphocytes/100 WBC (Bld) 22.3 % Invali d Interpretation Code 20.0 - 40.0 % AH Workflow SS MCH (RBC) [Entitic mass] 29.3 pg Invalid Interpretation Code 27.0 - 33.0 pg AH Workflow SS MCHC 33.9 G/dL Invalid Interpretation Code 32.0 - 36.0 G/dL AH Workflow SS MCV (RBC) [Entitic vol] 86.4 fL Invalid Interpretation Code 80.0 - 99.0 fL AH Workflow SS Monocytes (Bld) [#/Vol] 0.3 103/mcL Invalid Interpretation Code 0.1 - 1.4 10^3/mcL Workflow SS Monocytes/100 WBC (Bld) 6.4 % Invalid Interpretation Code 2.0 - 13.0 % AH Workflow SS Neutrophils (Bld) [#/Vol] 3.4 103/mcL Invali d Interpretation Code 2.3 - 8.1 10^3/mcL Workflow SS Neutrophils/100 WBC (Bld) 67.8 % Invali d Interpretation Code 50.0 - 75.0 % Workflow SS Platelet mean volume (Bld) [Entitic vol] 7.8 fL Invalid Interpretation Code 6.6 - 10.5 fL Workflow SS Platelets (Bld) [#/Vol] 258 103/mcL Invalid Interpretation Code 150 - 450 10^3/mcL Workflow SS Potassium [Moles/Vol] 4.3 mmol/L Invalid Interpretation Code 3.5 - 5.0 mEq/L ADM SS Comment on above: Result Comment: Spec imen slightly hemolyzed. Protein [Mass/Vol] 7.3 G/dL Invalid Interpretation Code 5.7 - 8.2 G/dL ADM SS Comment on above: Interpretive Data: * *Note - New Reference Range in effect 20 RBC (Bld) [#/Vol] 4.54 106/mcL Invalid Interpretation Code 4.10 - 5.30 10^6/mcL AH Workflow SS Sodium [Moles/Vol] 140 mmol/L Invalid Interpretation Code 136 - 145 mEq/L AH ADM SS Urea nitrogen [Mass/Vol] 15.0 mg/dL Invalid Interpretation Code 8.0 - 22.0 mg/dL AH ADM SS Urea nitrogen/Creatinine [Mass ratio] 15.8 ratio Invalid Interpretation Code 10.0 - 22.0 ratio AH ADM SS WBC (Bld) [#/Vol] 5.0 103/mcL Invalid Interpretation Code 4.5 - 10.8 10^3/mcL Workflow SS LABORATORYOrdered By: Mele Acosta on 07-05-2023 PT Coag (PPP) [Time] 11.1 s Invalid Interpretation Code 9.0 - 14.2 seconds [facility] Comment on above: Interpretive Data: E ffective 05/01/08, Protime results may be affected by some antibiotics (i.e. Ciprofloxacin, Azithromycin, Bactrim) which may potentiate the action of oral anticoagulants, with further increases in Protime/INR. PT International Ratio 1.0 ratio Invalid Interpretation Code HemMS[facility] Comment on above: Interpretive Data: Melecio mchugh [employer] (CHEST, 1991, 102:[id number]) recommended therapeutic range for oral anticoagulant therapy is: LOW RISK: Prophylaxis of venous thrombosis INR: 2.0-3.0 Treatment of pulmonary embolism 2.0-3.0 Prevention of systemic embolism 2.0-3.0 HIGH RISK: Mechanical prosthetic valves 2.5-3.5 PROon 07-05-2023 INR Coag (PPP) [Relative time] 1.0 {INR} Normal [facility] ([place]) Comment on above: Result Comment: [employer] (CHEST, 1991, [id number]) recommended therapeutic range for oral anticoagulant therapy is: LOW RISK: Prophylaxis of venous thrombosis INR: 2.0-3.0 Treatment of pulmonary embolism 2.0-3.0 Prevention of systemic embolism 2.0-3.0 HIGH RISK: Mechanical prosthetic valves 2.5-3.5 Performed By: #### G FR, PRO, CMP, ADIFF, ANEU, CBC #### [facility] [address] [place] [address] PT Coag (PPP) [Time] 11.1 s Normal 9.0-14.2 [facility] ([place]) Comment on above: Result Comment: Effe ctive 05/01/08, Protime results may be affected by some antibiotics (i.e. Ciprofloxacin, Azithromycin, Bactrim) which may potentiate the action of oral anticoagulants, with further increases in Protime/INR. Performed By: #### G FR, PRO, CMP, ADIFF, ANEU, CBC #### [facility] [address] [place] [id number] XR CHEST 1 VIEWon 07-05-2023 XR CHEST 1 VIEW ORIGINAL EXAMINATION: ONE XRAY VIEW OF THE [...] 07/05/2023 3:05:45 PM Ordering Provider: JUAN F Shah [facility] ([place]) Absolute lymphocyte countOrd ered By: Dr. Fallon on 12-25-2022 Lymphocytes Auto (Unsp spec) [#/Vol] 1.11 10*3/uL 0.83-4.51 [facility] Basophil percentageOrdered B y: Dr. Fallon on 12-25-2022 Basophils/100 WBC (Bld) 1.1 % 0-1 [facility] Bilirubin [Mass/Vol] 0.50 mg/dL 0.20-1.00 [facility] Comment on above: For patients on eltr ombopag therapy, use of Dimension [employer] TBIL is not recommended. Chloride [Moles/Vol] 101 mmol/L 98-107 [facility] Eosinophils/100 WBC (Bld) 2.9 % 0-5 [facility] Glucose [Mass/Vol] 112 mg/dL 74-106 [facility] Comment on above: Fasting Glucose resu lt from 100 to 125 mg/dL suggests IMPAIRED HOMEOSTASIS per A.D.A. criteria. Neutrophils (Bld) [#/Vol] 3.8 10*3/uL 2.0-7.7 [facility] Neutrophils/100 WBC (Bld) 69.1 % 47-70 [facility] Potassium [Moles/Vol] 4.3 mmol/L 3.5-5.1 [facility] Protein [Mass/Vol] 7.5 g/dL 6.4-8.2 [facility] Sodium [Moles/Vol] 139 mmol/L 136-145 [facility] WBC (Bld) [#/Vol] 5.5 10*3/uL 4.4-11.0 [facility] Blood erythrocytes count (nu mber/volume)Ordered By: Dr. Fallon on 12-25-2022 RBC (Bld) [#/Vol] 4.67 10*6/uL 4.2-5.4 [facility] Blood hemoglobin measurement (mass/volume)Ordered By: Dr. Fallon on 12-25-2022 Hemoglobin (Bld) [Mass/Vol] 13.5 g/dL 12.0-15.0 [facility] Blood lymphocytes/100 leukoc ytesOrdered By: Dr. Fallon on 12-25-2022 Lymphocytes/100 WBC (Bld) 20.3 % 19-41 [facility] Blood monocytes/100 leukocyt esOrdered By: Dr. Fallon on 12-25-2022 Monocytes/100 WBC (Bld) 6.2 % 0-[address] [facility] Blood platelet mean volumeOr dered By: Dr. Fallon on 12-25-2022 Platelet mean volume (Bld) [Entitic vol] 9.9 fL 6.2-12.0 [facility] Determination of erythrocyte mean corpuscular volume (MCV)Ordered By: Dr. Fallon on 12-25-2022 MCV (RBC) [Entitic vol] 88.4 fL 81-99 [facility] Hematocrit Auto (Bld) [Volum e fraction]Ordered By: Dr. Fallon on 12-25-2022 Hematocrit (Bld) [Volume fraction] 41.3 % 37-47 [facility] Laboratory - Chemistry and C hemistry - challengeOrdered By: Dr. Fallon on 12-25-2022 ALP [Catalytic activity/Vol] 85 U/L 45-117 [facility] ALT [Catalytic activity/Vol] 27 U/L 13-56 [facility] CO2 [Moles/Vol] 28.0 mmol/L 21.0-32.0 [facility] Free T4 [Mass/Vol] 0.86 ng/dL 0.76-1.46 [facility] Globulin (S) [Mass/Vol] 3.4 g/dL 2.2-4.2 [facility] Urea nitrogen/Creatinine [Mass ratio] 11.6 mg/mg 10-20 [facility] Laboratory - Hematology and Cell countsOrdered By: Dr. Fallon on 12-25-2022 Erythrocyte distribution width (RBC) [Entitic vol] 43.8 fL 35.1-43.9 [facility] Erythrocyte distribution width (RBC) [Ratio] 13.5 % 11.6-14.6 [facility] Immature granulocytes/100 WBC (Bld) 0.400 % 0.0-0.9 [facility] Comment on above: IG% - Immature Granu locytes (promyelocytes, myelocytes and metamyelocytes) > 1% indicates that a LEFT SHIFT is Present. MCH (RBC) [Entitic mass] 28.9 pg 27.0-32.0 [facility] Nucleated RBC/100 WBC (Bld) [Ratio] 0 % 0-5 [facility] Laboratory - Hematology and Cell countson 12-25-2022 HbA1c (Bld) [Mass fraction] 5.6 % 4.2-6.3 [facility] MCHC Auto (RBC) [Mass/Vol]Or dered By: Dr. Fallon on 12-25-2022 MCHC (RBC) [Mass/Vol] 32.7 g/dL 32-36 [facility] No Panel InformationOrdered By: Dr. Fallon on 12-25-2022 Estimated GFR (MDRD) Amer 62 mL/min >60 [facility] Comment on above: GFR Calc Estimated GFR (MDRD) Non-Af Amer 51 mL/min >60 [facility] Comment on above: Non- GFR Calc Thyroid Stimulating Hormone (TSH) 1.67 uIU/mL 0.358-3.74 [facility] Platelets bldOrdered By: Dr. Fallon on 12-25-2022 Platelets (Bld) [#/Vol] 265 10*3/uL 150-450 [facility] Serum or plasma albumin robert urement (mass/volume)Ordered By: Dr. Fallon on 12-25-2022 Albumin [Mass/Vol] 4.1 g/dL 3.2-5.0 [facility] Serum or plasma albumin/glob ulin mass ratioOrdered By: Dr. Fallon on 12-25-2022 Albumin/Globulin [Mass ratio] 1.2 {ratio} 0.9-2.4 [facility] Serum or plasma calcium robert urement (mass/volume)Ordered By: Dr. Fallon on 12-25-2022 Calcium [Mass/Vol] 9.2 mg/dL 8.5-10.1 [facility] Serum or plasma creatinine m easurement (mass/volume)Ordered By: Dr. Fallon on 12-25-2022 Creatinine [Mass/Vol] 1.12 mg/dL 0.55-1.02 [facility] Comment on above: The validity of the calculated GFR & GFRAA in patients over 70 years has not been determined. Clinical correlation is essential. Serum or plasma urea nitroge n measurement (mass/volume)Ordered By: Dr. Fallon on 12-25-2022 Urea nitrogen [Mass/Vol] 13 mg/dL 7-18 [facility] Thin prep Papanicolaou smear with manual screeningOrdered By: Dr. Fallon on 12-25-2022 Thin prep Papanicolaou smear with manual screening 21 U/L 15-37 [facility] Thin prep Papanicolaou smear with manual screening 10 5-15 [facility] CNOVon 11-12-2022 CNOV Office Visit (WSTR ) LIZBETH NIXON ([id number]) 1955 F Date Time Provider Department 11/12/22 11:45 AM KEYANNA SANCHEZ RUST During your visit today, we recorded the following information about you: Temperature Pulse Respiration Blood pressure 97.8 degrees 60/minute 18/minute 124/74 Weight 67.8 kg Keyanna Sanchez APRN.C[employer]OM STOCK MAKER 11/12/2022 5:47 PM Signed Subjective Lizbeth Zepeda Hussain is a 67 year old female who [...] SURGICAL HISTORY OF 03-31-11 ICD placement at [place] PAST SURGICAL HISTORY OF 03-30-11 Heart cath at [place] PERC TRANSL COR ANGIO 03-14-10,04-07-10, 0 Percutaneous Transluminal Coronary Angio-2 stents PLCMT LOCALZTN CLIP,PERC,DURING BREAST BX 07/25/07 LEFT RPLCMT [...] regular rhythm. Pulses: Normal pulses. Heart sounds: Mu (more content not included)... Normal [facility] XR DIGIT 3V FRONTAL/LAT/OBL LTon 11-12-2022 XR DIGIT 3V FRONTAL/LAT/OBL LT * * *Final Report* * * DATE OF EXAM: Nov 12 2022 12:40PM [id number] - XR DIGIT 3V FRONTAL/LAT/OBL LT / PROCEDURE REASON: Pain of left middle finger * * * * Physician Interpretation * * * * EXAM TITLE: XR DIGIT 3V FRONTAL/LAT/OBL LT EXAM DATE/TIME: 11/12/2022 12:40 PM COMPARISON: None. CLINICAL INDICATION/HISTORY: Pain. TECHNIQUE: PA, lateral and oblique views of the third digit of the left hand are presented. FINDINGS: No acute fractures or subluxations are noted. The joint spaces are grossly preserved. The mineralization of the bones is normal. There is no significant soft tissue swelling. IMPRESSION: No acute radiographic abnormalities seen in the third digit. Paintless Dent Repair Technician: ANDRESSA Transcribe Date/Time: Nov 12 2022 1:10P Dictated by : CICI RIVERA MD This examination was interpreted and the report reviewed and electronically signed by: CICI RIVERA MD on Nov 12 2022 1:12PM EST [id number] Normal [facility] XR DIGIT GENERAL 3V FRONTAL/ LAT/OBL LEFTon 11-12-2022 [facility] XR Finger - left AP and Late ral and obliqueon 11-12-2022 IMPRESSION: No acute radiographic abnormalities seen in the third digit. Paintless Dent Repair Technician: ANDRESSA Transcribe Date/Time: Nov 12 2022 1:10P Dictated by : CICI RIVERA MD This examination was interpreted and the report reviewed and electronically signed by: CICI RIVERA MD on Nov 12 2022 1:12PM [facility] DIVISION OF RADIOLOGY * * *Final Report* * * DATE OF EXAM: Nov 12 2022 12:40PM [id number] [id number] - XR DIGIT 3V FRONTAL/LAT/OBL LT / PROCEDURE REASON: Pain of left middle finger * * * * Physician Interpretation * * * * EXAM TITLE: XR DIGIT 3V FRONTAL/LAT/OBL LT EXAM DATE/TIME: 11/12/2022 12:40 PM COMPARISON: None. CLINICAL INDICATION/HISTORY: Pain. TECHNIQUE: PA, lateral and oblique views of the third digit of the left hand are presented. FINDINGS: No acute fractures or subluxations are noted. The joint spaces are grossly preserved. The mineralization of the bones is normal. There is no significant soft tissue swelling. DIVISION [facility] RADIOLOGY [facility] * * *Final Report* * * DATE OF EXAM: Nov 12 2022 12:40PM [id number] [id number] - XR DIGIT 3V FRONTAL/LAT/OBL LT / PROCEDURE REASON: Pain of left middle finger * * * * Physician Interpretation * * * * EXAM TITLE: XR DIGIT 3V FRONTAL/LAT/OBL LT EXAM DATE/TIME: 11/12/2022 12:40 PM COMPARISON: None. CLINICAL INDICATION/HISTORY: Pain. TECHNIQUE: PA, lateral and oblique views of the third digit of the left hand are presented. FINDINGS: No acute fractures or subluxations are noted. The joint spaces are grossly preserved. The mineralization of the bones is normal. There is no significant soft tissue swelling. IMPRESSION IMPRESSION: No acute radiographic abnormalities seen in the third digit. Paintless Dent Repair Technician: ANDRESSA Transcribe Date/Time: Nov 12 2022 1:10P Dictated by : CICI RIVERA MD This examination was interpreted and the report reviewed and electronically signed by: CICI RIVERA MD on Nov 12 2022 1:12PM EST [facility] Radiology Study observation (narrative) Opal traore [facility] XR Finger - left AP and Late ral and obliqueOrdered By: Ccf Provider on 11-12-2022 [facility] LABORATORYOrdered By: SYSTEM SYSTEM on 10-22-2022 Albumin BCP dye [Mass/Vol] 4.8 G/dL Invalid Interpretation Code 3.4 - 4.8 G/dL AO ADM SS Albumin/Globulin [Mass ratio] 1.4 {ratio} Invalid Interpretation Code 1.1 - 2.5 ratio AO ADM SS ALP [Catalytic activity/Vol] 92 U/L Invalid Interpretation Code 40 - 135 U/L AO ADM SS ALT With P-5'-P [Catalytic activity/Vol] 25 U/L Invalid Interpretation Code 14 - 59 U/L AO ADM SS AST With P-5'-P [Catalytic activity/Vol] 19 U/L Invalid Interpretation Code 10 - 40 U/L AO ADM SS Bilirubin [Mass/Vol] 0.7 mg/dL Invalid Interpretation Code 0.2 - 1.0 mg/dL AO ADM SS Calcium [Mass/Vol] 9.9 mg/dL Invalid Interpretation Code 8.4 - 10.2 mg/dL AO ADM SS Chloride [Moles/Vol] 100 mmol/L Invalid Interpretation Code 98 - 107 mmol/L AO ADM SS CO2 [Moles/Vol] 31 mmol/L Invalid Interpretation Code 23 - 31 mmol/L AO ADM SS Creatinine [Mass/Vol] 1.02 mg/dL Invalid Interpretation Code 0.55 - 1.02 mg/dL AO ADM SS Electrolyte Balance 8.0 mEq/L Invalid Interpretation Code 4.0 - 15.0 mEq/L AO ADM SS GFR 65 ml/min/1.73sqm Invalid Interpretation Code AO Chemistry S GFR Non- 54 ml/min/1.73sqm Inval id Interpretation Code AO Chemistry S Globulin 3.4 G/dL Invalid Interpretation Code AO ADM SS Glucose [Mass/Vol] 99 mg/dL Invalid Interpretation Code 80 - 115 mg/dL AO ADM SS Magnesium [Mass/Vol] 2.4 mg/dL Invalid Interpretation Code 1.8 - 2.4 mg/dL AO ADM SS Natriuretic peptide.B prohormone N-Terminal [Mass/Vol] 338 pg/mL Invalid Interpretation Code 0 - 125 pg/mL AO ADM SS Potassium [Moles/Vol] 5.1 mmol/L Invalid Interpretation Code 3.5 - 5.1 mmol/L AO ADM SS Protein [Mass/Vol] 8.2 G/dL Invalid Interpretation Code 6.4 - 8.2 G/dL AO ADM SS Sodium [Moles/Vol] 139 mmol/L Invalid Interpretation Code 136 - 145 mmol/L AO ADM SS TSH Qn 1.17 m[IU]/L Invalid Interpretation Code 0.36 - 3.74 mcIU/mL AO ADM SS Urea nitrogen [Mass/Vol] 16 mg/dL Invalid Interpretation Code 7 - 18 mg/dL AO ADM SS Urea nitrogen/Creatinine [Mass ratio] 16 ratio Invalid Interpretation Code 7 - 27 ratio AO ADM SS LABORATORYOrdered By: Ericka Harper on 10-22-2022 Basophil, Absolute 0.0 103/mcL Invalid Interpretation Code 0.0 - 0.2 10^3/mcL AO Workflow SS Basophils/100 WBC (Bld) 0.7 % Invalid Interpretation Code 0.0 - 2.5 % AO Workflow SS Eosinophil, Absolute 0.1 103/mcL Invalid Interpretation Code 0.0 - 0.4 10^3/mcL AO Workflow SS Eosinophils/100 WBC (Bld) 2.2 % Invali d Interpretation Code 0.0 - 7.0 % AO Workflow SS Erythrocyte distribution width (RBC) [Ratio] 13.7 % Invalid Interpretation Code 11.5 - 14.5 % AO Workflow SS Hematocrit (Bld) [Volume fraction] 43.3 % Invalid Interpretation Code 37.0 - 47.0 % AO Workflow SS Hemoglobin (Bld) [Mass/Vol] 14.6 G/dL Invalid Interpretation Code 12.0 - 16.0 G/dL AO Workflow SS Lymphocyte, Absolute 1.2 103/mcL Invalid Interpretation Code 0.8 - 3.9 10^3/mcL AO Workflow SS Lymphocytes/100 WBC (Bld) 22.9 % Invali d Interpretation Code 10.0 - 50.0 % AO Workflow SS MCH (RBC) [Entitic mass] 28.8 pg Invalid Interpretation Code 27.0 - 31.2 pg AO Workflow SS MCHC 33.6 G/dL Invalid Interpretation Code 33.0 - 37.0 G/dL AO Workflow SS MCV (RBC) [Entitic vol] 85.7 fL Invalid Interpretation Code 80.0 - 94.0 fL AO Workflow SS Monocyte, Absolute 0.3 103/mcL Invalid Interpretation Code 0.2 - 1.0 10^3/mcL AO Workflow SS Monocytes/100 WBC (Bld) 5.7 % Invalid Interpretation Code 1.7 - 13.0 % AO Workflow SS Neutrophil, Absolute 3.6 103/mcL Invalid Interpretation Code 2.9 - 6.2 10^3/mcL AO Workflow SS Neutrophils/100 WBC (Bld) 68.5 % Invali d Interpretation Code 37.0 - 80.0 % AO Workflow SS Platelet mean volume (Bld) [Entitic vol] 7.7 fL Invalid Interpretation Code 7.4 - 10.4 fL AO Workflow SS Platelets (Bld) [#/Vol] 281 103/mcL Invalid Interpretation Code 130 - 400 10^3/mcL AO Workflow SS RBC (Bld) [#/Vol] 5.05 106/mcL Invalid Interpretation Code 4.20 - 5.40 10^6/mcL AO Workflow SS WBC (Bld) [#/Vol] 5.3 103/mcL Invalid Interpretation Code 4.6 - 10.8 10^3/mcL AO Workflow SS LABORATORYOrdered By: Julia Farr on 10-22-2022 Cholesterol [Mass/Vol] 190 mg/dL Invalid Interpretation Code 0 - 200 mg/dL AO ADM SS Cholesterol in HDL [Mass/Vol] 52 mg/dL Invalid Interpretation Code 40 - 60 mg/dL AO ADM SS Cholesterol in LDL [Mass/Vol] 96 mg/dL Invalid Interpretation Code 0 - 130 mg/dL AO ADM SS Triglyceride [Mass/Vol] 211 mg/dL Invalid Interpretation Code 0 - 150 mg/dL AO ADM SS Laboratory - Microbiology an d Antimicrobial susceptibilityon 07-07-2022 SARS-CoV-2 (COVID-19) RNA JULISSA+probe Ql (Unsp spec) Detected Not Detect [facility] Work Phone: Comment on above: Normal Reference Ran ge: Not DetectedMethod:(RT-PCR) real-time reverse transcriptase PCRLuminex ELSY Instrument*The Food and Drug Administration (FDA) has issued an Emergency Use Authorization (EAU) for the ELSY SARS-CoV-2 Assay for the rapid detection of the virus that causes COVID-19. This test has been validated, but the FDAs independent review of this validation is pending.*Negative results do not preclude infection and should not be used as the sole basis for treatment or patient management. Optimum specimen types and timing for peak viral levels during infections caused by SARS-CoV-2 have not been determined. Collection of multiple specimens from the same patient may be necessary to detect the virus. The possibility of a false negative result should be considered if the patient has clinical presentation or has had recent exposure. Absolute lymphocyte counton 05-27-2022 Lymphocytes Auto (Unsp spec) [#/Vol] 1.33 10*3/uL 0.83-4.51 [facility] Work Phone: Basophil percentageon 2021 Basophils/100 WBC (Bld) 1.0 % 0-1 [facility] Work Phone: Bilirubin [Mass/Vol] 0.70 mg/dL 0.20-1.00 [facility] Work Phone: Comment on above: For patients on eltr ombopag therapy, use of Dimension Windber TBIL is not recommended. Chloride [Moles/Vol] 102 mmol/L 98-107 [facility] Work Phone: Cholesterol [Mass/Vol] 157 mg/dL <200 [facility] Work Phone: Comment on above: <200 mg/dL Desirable 200-240 mg/dL Borderline >240 mg/dL High Risk Eosinophils/100 WBC (Bld) 2.3 % 0-5 [facility] Work Phone: Glucose [Mass/Vol] 108 mg/dL 74-106 [facility] Work Phone: Comment on above: Fasting Glucose resu lt from 100 to 125 mg/dL suggests IMPAIRED HOMEOSTASIS per A.D.A. criteria. Neutrophils (Bld) [#/Vol] 4.2 10*3/uL 2.0-7.7 [facility] Work Phone: [phone] Neutrophils/100 WBC (Bld) 68.2 % 47-70 [facility] Work Phone: Potassium [Moles/Vol] 4.9 mmol/L 3.5-5.1 [facility] Work Phone: Protein [Mass/Vol] 7.8 g/dL 6.4-8.2 [facility] Work Phone: Sodium [Moles/Vol] 138 mmol/L 136-145 [facility] Work Phone: Triglyceride [Mass/Vol] 195 mg/dL <199 [facility] Work Phone: Comment on above: The drugs N-Acetylcy steine and Metamizole may falsely depress this assay.Serum Triglycerides Reference Interval Normal <150 mg/dL Borderline high 150 - 199 mg/dL High 200 - 499 mg/dL Very High > or = 500 mg/dL WBC (Bld) [#/Vol] 6.2 10*3/uL 4.4-11.0 [facility] Work Phone: Blood erythrocytes count (nu mber/volume)on 05-27-2022 RBC (Bld) [#/Vol] 4.89 10*6/uL 4.2-5.4 [facility] Work Phone: Blood hemoglobin measurement (mass/volume)on 05-27-2022 Hemoglobin (Bld) [Mass/Vol] 14.5 g/dL 12.0-15.0 [facility] Work Phone: Blood lymphocytes/100 leukoc yteson 05-27-2022 Lymphocytes/100 WBC (Bld) 21.4 % 19-41 [facility] Work Phone: Blood monocytes/100 leukocyt eson 05-27-2022 Monocytes/100 WBC (Bld) 6.8 % 0-10 [facility] Work Phone: Blood platelet mean volumeon 05-27-2022 Platelet mean volume (Bld) [Entitic vol] 9.7 fL 6.2-12.0 [facility] Work Phone: Determination of erythrocyte mean corpuscular volume (MCV)on 05-27-2022 MCV (RBC) [Entitic vol] 87.7 fL 81-99 [facility] Work Phone: Hematocrit Auto (Bld) [Volum e fraction]on 05-27-2022 Hematocrit (Bld) [Volume fraction] 42.9 % 37-47 [facility] Work Phone: Laboratory - Chemistry and C hemistry - challengeon 05-27-2022 ALP [Catalytic activity/Vol] 77 U/L 45-117 [facility] Work Phone: ALT [Catalytic activity/Vol] 22 U/L 13-56 [facility] Work Phone: CO2 [Moles/Vol] 33.0 mmol/L 21.0-32.0 [facility] Work Phone: Globulin (S) [Mass/Vol] 3.6 g/dL 2.2-4.2 [facility] Work Phone: Urea nitrogen/Creatinine [Mass ratio] 16.1 mg/mg 10-20 [facility] Work Phone: Laboratory - Hematology and Cell countson 05-27-2022 Erythrocyte distribution width (RBC) [Entitic vol] 42.1 fL 35.1-43.9 [facility] Work Phone: Erythrocyte distribution width (RBC) [Ratio] 13.1 % 11.6-14.6 [facility] Work Phone: Immature granulocytes/100 WBC (Bld) 0.300 % 0.0-0.9 [facility] Work Phone: Comment on above: IG% - Immature Granu locytes (promyelocytes, myelocytes and metamyelocytes) > 1% indicates that a LEFT SHIFT is Present. MCH (RBC) [Entitic mass] 29.7 pg 27.0-32.0 [facility] Work Phone: Nucleated RBC/100 WBC (Bld) [Ratio] 0 % 0-5 [facility] Work Phone: MCHC Auto (RBC) [Mass/Vol]on 05-27-2022 MCHC (RBC) [Mass/Vol] 33.8 g/dL 32-36 [facility] Work Phone: No Panel Informationon 05-27 Estimated GFR (MDRD) Amer 62 mL/min >60 [facility] Work Phone: Comment on above: GFR Calc Estimated GFR (MDRD) Non-Af Amer 51 mL/min >60 [facility] Work Phone: Comment on above: Non- GFR Calc Platelets bldon 05-27-2022 Platelets (Bld) [#/Vol] 279 10*3/uL 150-450 [facility] Work Phone: Serum or plasma albumin robert urement (mass/volume)on 05-27-2022 Albumin [Mass/Vol] 4.2 g/dL 3.2-5.0 [facility] Work Phone: Serum or plasma albumin/glob ulin mass ratioon 05-27-2022 Albumin/Globulin [Mass ratio] 1.2 {ratio} 0.9-2.4 [facility] Work Phone: Serum or plasma calcium robert urement (mass/volume)on 05-27-2022 Calcium [Mass/Vol] 9.6 mg/dL 8.5-10.1 [facility] Work Phone: Serum or plasma cholesterol in HDL measurement (mass/volume)on 05-27-2022 Cholesterol in HDL [Mass/Vol] 52 mg/dL >40 [facility] Work Phone: Comment on above: The drugs N-Acetylcy steine and Metamizole may falsely depress this assay. Reference Range HDL <40 mg/dL Low HDL Cholesterol HDL >or= 60 mg/dL High HDL Cholesterol Serum or plasma cholesterol in VLDL measurement (mass/volume)on 05-27-2022 Cholesterol in VLDL [Mass/Vol] 39 mg/dL 5-40 [facility] Work Phone: Serum or plasma creatinine m easurement (mass/volume)on 05-27-2022 Creatinine [Mass/Vol] 1.12 mg/dL 0.55-1.02 [facility] Work Phone: Comment on above: The validity of the calculated GFR & GFRAA in patients over 70 years has not been determined. Clinical correlation is essential. Serum or plasma low density lipoprotein (LDL) cholesterol measurement (mass/volume)on 05-27-2022 Cholesterol in LDL [Mass/Vol] 66 mg/dL 0-130 [facility] Work Phone: Serum or plasma urea nitroge n measurement (mass/volume)on 05-27-2022 Urea nitrogen [Mass/Vol] 18 mg/dL 7-18 [facility] Work Phone: Thin prep Papanicolaou smear with manual screeningon 05-27-2022 Thin prep Papanicolaou smear with manual screening 15 U/L 15-37 [facility] Work Phone: Thin prep Papanicolaou smear with manual screening 3 5-15 [facility] Work Phone: Whole blood hemoglobin A1c/t otal hemoglobin ratio (mass fraction)on 05-27-2022 HbA1c (Bld) [Mass fraction] 5.9 % 3.8-5.6 [facility] Work Phone: Comment on above: Normal < 5.7 % Predi abetic 5.7 - 6.4 % Diabetic >or= 6.5 % Please note range changes. Laboratory - Hematology and Cell countson 02-24-2022 HbA1c (Bld) [Mass fraction] 5.8 % 4.2-6.3 [facility] Work Phone: Basophil percentageon 2021 Chloride [Moles/Vol] 103 mmol/L 98-[address] [facility] Work Phone: Glucose [Mass/Vol] 91 mg/dL 74-106 [facility] Work Phone: Potassium [Moles/Vol] 3.9 mmol/L 3.5-5.1 [facility] Work Phone: Sodium [Moles/Vol] 138 mmol/L 136-145 [facility] Work [facility]: Laboratory - Chemistry and C hemistry - challengeon 11-24-2021 CO2 [Moles/Vol] 30.0 mmol/L 21.0-32.0 [facility] Work Phone: Urea nitrogen/Creatinine [Mass ratio] 12.1 mg/mg 10-20 [facility] Work Phone: No Panel Informationon 11-24 Estimated GFR (MDRD) Amer 60 mL/min >60 [facility] Work Phone: Comment on above: GFR Calc Estimated GFR (MDRD) Non-Af Amer 49 mL/min >60 [facility] Work Phone: Comment on above: Non- GFR Calc Serum or plasma calcium robert urement (mass/volume)on 11-24-2021 Calcium [Mass/Vol] 8.8 mg/dL 8.5-10.1 [facility] Work Phone: Serum or plasma creatinine m easurement (mass/volume)on 11-24-2021 Creatinine [Mass/Vol] 1.16 mg/dL 0.55-1.02 [facility] Work Phone: Comment on above: The validity of the calculated GFR & GFRAA in patients over 70 years has not been determined. Clinical correlation is essential. Serum or plasma urea nitroge n measurement (mass/volume)on 11-24-2021 Urea nitrogen [Mass/Vol] 14 mg/dL 7-18 [facility] Work Phone: Thin prep Papanicolaou smear with manual screeningon 11-24-2021 Thin prep Papanicolaou smear with manual screening 5 5-15 [facility] Work Phone: Whole blood hemoglobin A1c/t otal hemoglobin ratio (mass fraction)on 11-24-2021 HbA1c (Bld) [Mass fraction] 5.8 % 3.8-5.6 [facility] Work Phone: Comment on above: Normal < 5.7 % Predi abetic 5.7 - 6.4 % Diabetic >or= 6.5 % Please note range changes. LABORATORYOrdered By: Jose Zheng on 09-26-2021 Basophil, Absolute 0.00 103/mcL Invalid Interpretation Code 0.00 - 0.19 10^3/mcL AO Auto Heme SS Basophils/100 WBC (Bld) 0.6 % Invalid Interpretation Code 0.0 - 2.5 % AO Auto Heme SS Calcium [Mass/Vol] 9.4 mg/dL Invalid Interpretation Code 8.4 - 10.2 mg/dL AO ADM SS Chloride [Moles/Vol] 101 mmol/L Invalid Interpretation Code 98 - 107 mmol/L AO ADM SS CO2 [Moles/Vol] 32 mmol/L Invalid Interpretation Code 23 - 31 mmol/L AO ADM SS Creatinine [Mass/Vol] 1.07 mg/dL Invalid Interpretation Code 0.55 - 1.02 mg/dL AO ADM SS Electrolyte Balance 9.0 mEq/L Invalid Interpretation Code AO ADM SS Eosinophil, Absolute 0.10 103/mcL Invalid Interpretation Code 0.00 - 0.40 10^3/mcL AO Auto Heme SS Eosinophils/100 WBC (Bld) 1.9 % Invali d Interpretation Code 0.0 - 7.0 % AO Auto Heme SS Erythrocyte distribution width (RBC) [Ratio] 13.8 % Invalid Interpretation Code 11.5 - 14.5 % AO Auto Heme SS Glucose [Mass/Vol] 103 mg/dL Invalid Interpretation Code 80 - 115 mg/dL AO ADM SS Hematocrit (Bld) [Volume fraction] 39.2 % Invalid Interpretation Code 37.0 - 47.0 % AO Auto Heme SS Hemoglobin (Bld) [Mass/Vol] 13.2 G/dL Invalid Interpretation Code 12.0 - 16.0 G/dL AO Auto Heme SS Lymphocyte, Absolute 1.60 103/mcL Invalid Interpretation Code 0.77 - 3.85 10^3/mcL AO Auto Heme SS Lymphocytes/100 WBC (Bld) 27.6 % Invali d Interpretation Code 10.0 - 50.0 % AO Auto Heme SS Magnesium [Mass/Vol] 2.2 mg/dL Invalid Interpretation Code 1.8 - 2.4 mg/dL AO ADM SS MCH (RBC) [Entitic mass] 29.0 pg Invalid Interpretation Code 27.0 - 31.2 pg AO Auto Heme SS MCHC (RBC) [Mass/Vol] 33.7 G/dL Invalid Interpretation Code 33.0 - 37.0 G/dL AO Auto Heme SS MCV (RBC) [Entitic vol] 86.1 fL Invalid Interpretation Code 80.0 - 94.0 fL AO Auto Heme SS Monocyte, Absolute 0.30 103/mcL Invalid Interpretation Code 0.15 - 1.00 10^3/mcL AO Auto Heme SS Monocytes/100 WBC (Bld) 5.3 % Invalid Interpretation Code 1.7 - 13.0 % AO Auto Heme SS Neutrophil, Absolute 3.80 103/mcL Invalid Interpretation Code 2.85 - 6.16 10^3/mcL AO Auto Heme SS Neutrophils/100 WBC (Bld) 64.6 % Invali d Interpretation Code 37.0 - 80.0 % AO Auto Heme SS Platelet mean volume (Bld) [Entitic vol] 8.0 fL Invalid Interpretation Code 7.4 - 10.4 fL AO Auto Heme SS Platelets (Bld) [#/Vol] 286 103/mcL Invalid Interpretation Code 130 - 400 10^3/mcL AO Auto Heme SS Potassium [Moles/Vol] 4.2 mmol/L Invalid Interpretation Code 3.5 - 5.1 mmol/L AO ADM SS RBC (Bld) [#/Vol] 4.55 106/mcL Invalid Interpretation Code 4.20 - 5.40 10^6/mcL AO Auto Heme SS Sodium [Moles/Vol] 142 mmol/L Invalid Interpretation Code 136 - 145 mmol/L AO ADM SS TSH Qn 1.05 m[IU]/L Invalid Interpretation Code 0.36 - 3.74 mcIU/mL AO ADM SS Urea nitrogen [Mass/Vol] 15 mg/dL Invalid Interpretation Code 7 - 18 mg/dL AO ADM SS Urea nitrogen/Creatinine [Mass ratio] 14 ratio Invalid Interpretation Code 7 - 27 ratio AO ADM SS WBC (Bld) [#/Vol] 5.90 103/mcL Invalid Interpretation Code 4.60 - 10.80 10^3/mcL AO Auto Heme SS LABORATORYOrdered By: SYSTEM SYSTEM on 09-26-2021 GFR 62 ml/min/1.73sqm Invalid Interpretation Code AO Chemistry S GFR Non- 51 ml/min/1.73sqm Inval id Interpretation Code AO Chemistry S Laboratory - Hematology and Cell countson 08-18-2021 HbA1c (Bld) [Mass fraction] 5.9 % [facility] Work Phone: Vital Signs Date Time Vital Sign Value Performing Clinician Facility 08-07-2025 14:52-0400 Body height 152.[address] Daniela Fallon MD Work Phone: [facility] 08-07-2025 14:52-0400 Body mass index (BMI) [Ratio] 22 kg/m2 Dr. Daniela Fallon MD Work Phone: [facility] 08-07-2025 14:52-0400 Body temperature 97 [degF] Dr. Daniela Fallon MD Work Phone: [facility] 08-07-2025 14:52-0400 Body weight 51.[address] Daniela Fallon MD Work Phone: [facility] 08-07-2025 14:52-0400 Heart rate 65 /min Dr. Daniela Fallon MD Work Phone: [facility] 08-07-2025 14:52-0400 Respiratory rate 16 /min Dr. Daniela Fallon MD Work Phone: [facility] 08-07-2025 14:52-0400 SaO2% (BldA) [Mass fraction] 92 % Dr. Daniela Fallon MD Work Phone: [facility] 07-31-2025 11:27-0400 Body mass index (BMI) [Ratio] 21.87 kg/m2 Neli Cox [employer] PROJECTIONIST-[employer]ER Work Phone: [facility] 07-31-2025 11:27-0400 Body temperature 96.8 [degF] Neli Cox [employer] PROJECTIONIST-[employer]ER Work Phone: [facility] 07-31-2025 11:27-0400 Body weight 50 kg Neli Cox [employer] PROJECTIONIST-[employer] Work Phone: [facility] 07-31-2025 11:27-0400 Diastolic blood pressure 68 mm[Hg] Neli Cox [employer]URE PROJECTIONIST-[employer]KER Work Phone: [facility] 07-31-2025 11:27-0400 Heart rate 60 /min Neli Cox [employer] PROJECTIONIST-[employer] Work Phone: [facility] 07-31-2025 11:27-0400 Respiratory rate 19 /min Neli Cox [employer] PROJECTIONIST-[employer] Work Phone: [facility] 07-31-2025 11:27-0400 SaO2% (BldA) [Mass fraction] 95 % Neli Cox [employer] PROJECTIONIST-[employer] Work Phone: [facility] 07-31-2025 11:27-0400 Systolic blood pressure 147 mm[Hg] Neli Cox [employer]URE PROJECTIONIST-[employer]ER Work Phone: [facility] 07-13-2025 10:04-0400 Body height 152.[address] Daniela Fallon MD Work Phone: [facility] 07-13-2025 10:04-0400 Body mass index (BMI) [Ratio] 22.1 kg/m2 Dr. Daniela Fallon MD Work Phone: [facility] 07-13-2025 10:04-0400 Body temperature 96.5 [degF] Dr. Daniela Fallon MD Work Phone: [facility] 07-13-2025 10:04-0400 Body weight 51.[address] Daniela Fallon MD Work Phone: [facility] 07-13-2025 10:04-0400 Diastolic blood pressure 72 mm[Hg] Dr. Daniela Fallon MD Work Phone: [facility] 07-13-2025 10:04-0400 Heart rate 78 /min Dr. Daniela Fallon MD Work Phone: [facility] 07-13-2025 10:04-0400 Respiratory rate 16 /min Dr. Daniela Fallon MD Work Phone: [facility] 07-13-2025 10:04-0400 SaO2% (BldA) [Mass fraction] 94 % Dr. Daniela Fallon MD Work Phone: [facility] 07-13-2025 10:04-0400 Systolic blood pressure 128 mm[Hg] Dr. Daniela Fallon MD Work Phone: [facility] 06-27-2025 09:54-0400 Body mass index (BMI) [Ratio] 22.88 kg/m2 Marcelo Davey MD Work Phone: [facility] 06-27-2025 09:54-0400 Body temperature 97.81 [degF] Marcelo Davey MD Work Phone: [facility] 06-27-2025 09:54-0400 Body weight 52.3 kg Marcelo Davey MD Work Phone: [facility] 06-27-2025 09:54-0400 Diastolic blood pressure 67 mm[Hg] Marcelo Davey MD Work Phone: [facility] 06-27-2025 09:54-0400 Heart rate 68 /min Marcelo Davey MD Work Phone: [facility] 06-27-2025 09:54-0400 Respiratory rate 18 /min Marcelo Davey MD Work Phone: [facility] 06-27-2025 09:54-0400 SaO2% (BldA) [Mass fraction] 97 % Marcelo Davey MD Work Phone: [facility] 06-27-2025 09:54-0400 Systolic blood pressure 148 mm[Hg] Marcelo Davey MD Work Phone: [facility] 05-16-2025 09:16-0400 Body mass index (BMI) [Ratio] 22.82 kg/m2 Neli Cox APRN-C[employer]OM STOCK MAKER Work Phone: [facility] 05-16-2025 09:16-0400 Body temperature 97.5 [degF] Neli Cox APRN-C[employer]OM ST[employer] MAKER Work Phone: [facility] 05-16-2025 09:16-0400 Body weight 52.16 kg Neli Cox [employer] PROJECTIONIST-[employer]ER Work Phone: [facility] 05-16-2025 09:16-0400 Diastolic blood pressure 73 mm[Hg] Neli Cox [employer] PROJECTIONIST-[employer] Work Phone: [facility] 05-16-2025 09:16-0400 Heart rate 64 /min Neli Cox [employer] PROJECTIONIST-[employer] Work Phone: [facility] 05-16-2025 09:16-0400 SaO2% (BldA) [Mass fraction] 94 % Neli Cox [employer] PROJECTIONIST-[employer] Work Phone: [facility] 05-16-2025 09:16-0400 Systolic blood pressure 133 mm[Hg] Neli Cox [employer] PROJECTIONIST-[employer]ER Work Phone: [facility] 05-03-2025 09:35-0400 Body mass index (BMI) [Ratio] 22.94 kg/m2 Yany Page [employer] PROJECTIONIST-[employer]KER Work Phone: [facility] 05-03-2025 09:35-0400 Body temperature 97.3 [degF] Yany Page [employer] PROJECTIONIST-[employer]ER Work Phone: [facility] 05-03-2025 09:35-0400 Body weight 52.44 kg Yany Page [employer] PROJECTIONIST-[employer]ER Work Phone: [facility] 05-03-2025 09:35-0400 Diastolic blood pressure 64 mm[Hg] Yany Page [employer] PROJECTIONIST-[employer]ER Work Phone: [facility] 05-03-2025 09:35-0400 Heart rate 71 /min Yany Page [employer] PROJECTIONIST-[employer] Work Phone: [facility] 05-03-2025 09:35-0400 Respiratory rate 16 /min Yany Page [employer] PROJECTIONIST-[employer]ER Work Phone: [facility] 05-03-2025 09:35-0400 SaO2% (BldA) [Mass fraction] 96 % Yany Page [employer] PROJECTIONIST-[employer]ER Work Phone: [facility] 05-03-2025 09:35-0400 Systolic blood pressure 122 mm[Hg] Yany Page [employer]URE PROJECTIONIST-[employer]KER Work Phone: [facility] 04-18-2025 21:57-0400 Body temperature 98 [degF] Dr. Daniela Fallon MD Work Phone: [facility] 04-18-2025 21:57-0400 Diastolic blood pressure 63 mm[Hg] Dr. Daniela Fallon MD Work Phone: [facility] 04-18-2025 21:57-0400 Heart rate 70 /min Dr. Daniela Fallon MD Work Phone: [facility] 04-18-2025 21:57-0400 Respiratory rate 16 /min Dr. Daniela Fallon MD Work Phone: [facility] 04-18-2025 21:57-0400 SaO2% (BldA) [Mass fraction] 98 % Dr. Daniela Fallon MD Work Phone: [facility] 04-18-2025 21:57-0400 Systolic blood pressure 133 mm[Hg] Dr. Daniela Fallon MD Work Phone: [facility] 04-18-2025 16:20-0400 Body height 152.[address] Daniela Fallon MD Work Phone: [facility] 04-18-2025 16:20-0400 Body mass index (BMI) [Ratio] 22.8 kg/m2 Dr. Daniela Fallon MD Work Phone: [facility] 04-18-2025 16:20-0400 Body weight 53.[address] Daniela Fallon MD Work Phone: [facility] 04-05-2025 14:27-0400 Body height 152.[address] Daniela Fallon MD Work Phone: [facility] 04-05-2025 14:27-0400 Body mass index (BMI) [Ratio] 23.6 kg/m2 Dr. Daniela Fallon MD Work Phone: [facility] 04-05-2025 14:27-0400 Body temperature 96.6 [degF] Dr. Daniela Fallon MD Work Phone: [facility] 04-05-2025 14:27-0400 Body weight 54.[address] Daniela Fallon MD Work Phone: [facility] 04-05-2025 14:27-0400 Diastolic blood pressure 58 mm[Hg] Dr. Daniela Fallon MD Work Phone: [facility] 04-05-2025 14:27-0400 Heart rate 81 /min Dr. Daniela Fallon MD Work Phone: [facility] 04-05-2025 14:27-0400 Respiratory rate 12 /min Dr. Daniela Fallon MD Work Phone: [facility] 04-05-2025 14:27-0400 SaO2% (BldA) [Mass fraction] 95 % Dr. Daniela Fallon MD Work Phone: [facility] 04-05-2025 14:27-0400 Systolic blood pressure 104 mm[Hg] Dr. Daniela Fallon MD Work Phone: [facility] 03-28-2025 10:23-0400 Body height 151.9 cm Marcelo Davey MD Work Phone: [facility] 03-28-2025 10:23-0400 Body mass index (BMI) [Ratio] 23.45 kg/m2 Marcelo Davey MD Work Phone: [facility] 03-28-2025 10:23-0400 Body temperature 97.2 [degF] Marcelo Davey MD Work Phone: [facility] 03-28-2025 10:23-0400 Body weight 54.1 kg Marcelo Davey MD Work Phone: [facility] 03-28-2025 10:23-0400 Diastolic blood pressure 69 mm[Hg] Marcelo Davey MD Work Phone: [facility] 03-28-2025 10:23-0400 Heart rate 61 /min Marcelo aDvey MD Work Phone: [facility] 03-28-2025 10:23-0400 SaO2% (BldA) [Mass fraction] 94 % Marcelo Davey MD Work Phone: [facility] 03-28-2025 10:23-0400 Systolic blood pressure 157 mm[Hg] Marcelo Davey MD Work Phone: [facility] 02-14-2025 10:30-0400 Body mass index (BMI) [Ratio] 25.04 kg/m2 Neli Cox [employer] PROJECTIONIST-[employer]KER Work Phone: [facility] 02-14-2025 10:30-0400 Body temperature 97.5 [degF] Neli Cox [employer] PROJECTIONIST-[employer] Work Phone: [facility] 02-14-2025 10:30-0400 Body weight 57.24 kg Neli Cox [employer] PROJECTIONIST-[employer] Work Phone: [facility] 02-14-2025 10:30-0400 Diastolic blood pressure 75 mm[Hg] Neli oCx [employer] PROJECTIONIST-[employer]KER Work Phone: [facility] 02-14-2025 10:30-0400 Heart rate 62 /min Neli Cox [employer] PROJECTIONIST-[employer] Work Phone: [facility] 02-14-2025 10:30-0400 SaO2% (BldA) [Mass fraction] 96 % Neli Cox APRN-CUSTOM STOCK MAKER Work Phone: [facility] 02-14-2025 10:30-0400 Systolic blood pressure 135 mm[Hg] Neli Cox [employer] PROJECTIONIST-[employer] Work Phone: [facility] 02-06-2025 13:04-0400 Body height 152.[address] Daniela Fallon MD Work Phone: [facility] 02-06-2025 13:04-0400 Body mass index (BMI) [Ratio] 24.4 kg/m2 Dr. Daniela Fallon MD Work Phone: [facility] 02-06-2025 13:04-0400 Body temperature 97.6 [degF] Dr. Daniela Fallon MD Work Phone: [facility] 02-06-2025 13:04-0400 Body weight 56.[address] Daniela Fallon MD Work Phone: [facility] 02-06-2025 13:04-0400 Diastolic blood pressure 62 mm[Hg] Dr. Daniela Fallon MD Work Phone: [facility] 02-06-2025 13:04-0400 Heart rate 74 /min Dr. Daniela Fallon MD Work Phone: [facility] 02-06-2025 13:04-0400 Respiratory rate 14 /min Dr. Daniela Fallon MD Work Phone: [facility] 02-06-2025 13:04-0400 SaO2% (BldA) [Mass fraction] 96 % Dr. Daniela Fallon MD Work Phone: [facility] 02-06-2025 13:04-0400 Systolic blood pressure 114 mm[Hg] Dr. Daniela Fallon MD Work Phone: [facility] 01-03-2025 08:58-0400 Body mass index (BMI) [Ratio] 24 kg/m2 Marcelo Davey MD Work Phone: [facility] 01-03-2025 08:58-0400 Body temperature 96.8 [degF] Marcelo Davey MD Work Phone: [facility] 01-03-2025 08:58-0400 Body weight 55.95 kg Marcelo Davey MD Work Phone: [facility] 01-03-2025 08:58-0400 Diastolic blood pressure 67 mm[Hg] Marcelo Davey MD Work Phone: [facility] 01-03-2025 08:58-0400 Heart rate 64 /min Marcelo Davey MD Work Phone: [facility] 01-03-2025 08:58-0400 SaO2% (BldA) [Mass fraction] 95 % Marcelo Davey MD Work Phone: [facility] 01-03-2025 08:58-0400 Systolic blood pressure 138 mm[Hg] Marcelo Davey MD Work Phone: [facility] 12-22-2024 10:43-0500 Body height 152.[address] Daniela Fallon MD Work Phone: [facility] 12-22-2024 10:43-0500 Body mass index (BMI) [Ratio] 25.2 kg/m2 Dr. Daniela Fallon MD Work Phone: [facility] 12-22-2024 10:43-0500 Body temperature 97.5 [degF] Dr. Daniela Fallon MD Work Phone: [facility] 12-22-2024 10:43-0500 Body weight 58.[address] Daniela Fallon MD Work Phone: [facility] 12-22-2024 10:43-0500 Diastolic blood pressure 64 mm[Hg] Dr. Daniela Fallon MD Work Phone: [facility] 12-22-2024 10:43-0500 Heart rate 67 /min Dr. Daniela Fallon MD Work Phone: [facility] 12-22-2024 10:43-0500 Respiratory rate 12 /min Dr. Daniela Fallon MD Work Phone: [facility] 12-22-2024 10:43-0500 SaO2% (BldA) [Mass fraction] 92 % Dr. Daniela Fallon MD Work Phone: [facility] 12-22-2024 10:43-0500 Systolic blood pressure 118 mm[Hg] Dr. Daniela Fallon MD Work Phone: [facility] 12-15-2024 13:43-0500 Body temperature 97.6 [degF] Dr. Daniela Fallon MD Work Phone: [facility] 12-15-2024 13:43-0500 Diastolic blood pressure 45 mm[Hg] Dr. Daniela Fallon MD Work Phone: [facility] 12-15-2024 13:43-0500 Heart rate 80 /min Dr. Daniela Fallon MD Work Phone: [facility] 12-15-2024 13:43-0500 Respiratory rate 16 /min Dr. Daniela Fallon MD Work Phone: [facility] 12-15-2024 13:43-0500 SaO2% (BldA) [Mass fraction] 96 % Dr. Daniela Fallon MD Work Phone: [facility] 12-15-2024 13:43-0500 Systolic blood pressure 149 mm[Hg] Dr. Daniela Fallon MD Work Phone: [facility] 12-15-2024 03:51-0500 Body mass index (BMI) [Ratio] 26.4 kg/m2 Dr. Daniela Fallon MD Work Phone: [facility] 12-15-2024 03:51-0500 Body weight 61.[address] Daniela Fallon MD Work Phone: [facility] 12-13-2024 09:00-0500 Inhaled oxygen flow rate 2 L/min Dr. Daniela Fallon MD Work Phone: [facility] 09-27-2024 11:23-0500 Body mass index (BMI) [Ratio] 26.56 kg/m2 Cindy Bae MD Work Phone: [facility] 09-27-2024 11:23-0500 Body temperature 95.5 [degF] Cindy Bae MD Work Phone: [facility] 09-27-2024 11:23-0500 Body weight 61.69 kg Cindy Bae MD Work Phone: [facility] 09-27-2024 11:23-0500 Diastolic blood pressure 74 mm[Hg] Cindy Bae MD Work Phone: [facility] 09-27-2024 11:23-0500 Heart rate 59 /min Cindy Bae MD Work Phone: [facility] 09-27-2024 11:23-0500 Respiratory rate 18 /min Cindy Bae MD Work Phone: [facility] 09-27-2024 11:23-0500 SaO2% (BldA) [Mass fraction] 95 % Cindy Bae MD Work Phone: [facility] 09-27-2024 11:23-0500 Systolic blood pressure 121 mm[Hg] Cindy Bae MD Work Phone: [facility] 09-24-2024 19:45-0500 Body temperature 98.7 [degF] Dr. Daniela Fallon MD Work Phone: [facility] 09-24-2024 19:45-0500 Diastolic blood pressure 90 mm[Hg] Dr. Daniela Fallon MD Work Phone: [facility] 09-24-2024 19:45-0500 Heart rate 65 /min Dr. Daniela Fallon MD Work Phone: [facility] 09-24-2024 19:45-0500 Respiratory rate 14 /min Dr. Daniela Fallon MD Work Phone: [facility] 09-24-2024 19:45-0500 SaO2% (BldA) [Mass fraction] 94 % Dr. Daniela Fallon MD Work Phone: [facility] 09-24-2024 19:45-0500 Systolic blood pressure 122 mm[Hg] Dr. Daniela Fallon MD Work Phone: [facility] 09-24-2024 15:00-0500 Body mass index (BMI) [Ratio] 27.5 kg/m2 Dr. Daniela Fallon MD Work Phone: [facility] 09-24-2024 15:00-0500 Body weight [address] Daniela Fallon MD Work Phone: [facility] 09-20-2024 10:29-0500 Body mass index (BMI) [Ratio] 26.16 kg/m2 Marcelo Davey MD Work Phone: [facility] 09-20-2024 10:29-0500 Body temperature 97.81 [degF] Marcelo Davey MD Work Phone: [facility] 09-20-2024 10:29-0500 Body weight 60.75 kg Marcelo Davey MD Work Phone: [facility] 09-20-2024 10:29-0500 Diastolic blood pressure 73 mm[Hg] Marcelo Davey MD Work Phone: [facility] 09-20-2024 10:29-0500 Heart rate 69 /min Marcelo Davey MD Work Phone: [facility] 09-20-2024 10:29-0500 Systolic blood pressure 145 mm[Hg] Marcelo Davey MD Work Phone: [facility] 08-09-2024 10:00-0400 Body temperature 95.5 [degF] Ruel Lozano MD Work Phone: [facility] 08-09-2024 10:00-0400 Diastolic blood pressure 67 mm[Hg] Ruel Lozano MD Work Phone: [facility] 08-09-2024 10:00-0400 Heart rate 84 /min Ruel Lozano MD Work Phone: [facility] 08-09-2024 10:00-0400 Respiratory rate 17 /min Ruel Lozano MD Work Phone: [facility] 08-09-2024 10:00-0400 SaO2% (BldA) [Mass fraction] 95 % Ruel Lozano MD Work Phone: [facility] 08-09-2024 10:00-0400 Systolic blood pressure 134 mm[Hg] Ruel Lozano MD Work Phone: [facility] 08-09-2024 01:10-0400 Body mass index (BMI) [Ratio] 26.74 kg/m2 Ruel Lozano MD Work Phone: [facility] 08-09-2024 01:10-0400 Body weight 62.1 kg Ruel Lozano MD Work Phone: [facility] 08-03-2024 15:14-0400 Body temperature 37 Ruel Lozano MD Work Phone: [facility] 08-03-2024 15:14-0400 SaO2% (BldA) [Mass fraction] 99 % Ruel Lozano MD Work Phone: [facility] 08-03-2024 04:53-0400 Body temperature 37 Ruel Lozano MD Work Phone: [facility] 08-03-2024 04:53-0400 SaO2% (BldA) [Mass fraction] 100 % Ruel Lozano MD Work Phone: [facility] 08-03-2024 03:34-0400 Body temperature 37 Ruel Lozano MD Work Phone: [facility] 08-03-2024 03:34-0400 SaO2% (BldA) [Mass fraction] 100 % Ruel Lozano MD Work Phone: [facility] 08-02-2024 17:16-0400 Body temperature 37 Ruel Lozano MD Work Phone: [facility] 08-02-2024 17:16-0400 SaO2% (BldA) [Mass fraction] 99 % Ruel Lozano MD Work Phone: [facility] 08-02-2024 15:06-0400 Body temperature 37 Ruel Lozano MD Work Phone: [facility] 08-02-2024 15:06-0400 SaO2% (BldA) [Mass fraction] 99 % Ruel Lozano MD Work Phone: [facility] 08-02-2024 12:29-0400 Body temperature 37 Ruel Lozano MD Work Phone: [facility] 08-02-2024 12:29-0400 SaO2% (BldA) [Mass fraction] 97 % Ruel Lozano MD Work Phone: [facility] 08-02-2024 11:10-0400 Body temperature 37 Ruel Lozano MD Work Phone: [facility] 08-02-2024 11:10-0400 SaO2% (BldA) [Mass fraction] 99 % Ruel Lozano MD Work Phone: [facility] 08-02-2024 10:19-0400 Body temperature 37 Ruel Lozano MD Work Phone: [facility] 08-02-2024 10:19-0400 SaO2% (BldA) [Mass fraction] 98 % Ruel Lozano MD Work Phone: [facility] 08-02-2024 08:31-0400 Body temperature 37 Ruel Lozano MD Work Phone: [facility] 08-02-2024 08:31-0400 SaO2% (BldA) [Mass fraction] 99 % Ruel Lozano MD Work Phone: [facility] 08-02-2024 06:28-0400 Body temperature 37 Ruel Lozano MD Work Phone: [facility] 08-02-2024 06:28-0400 SaO2% (BldA) [Mass fraction] 94 % Ruel Lozano MD Work Phone: [facility] 08-02-2024 06:20-0400 Body temperature 37 Ruel Lozano MD Work Phone: [facility] 08-02-2024 06:18-0400 Body temperature 37 Ruel Lozano MD Work Phone: [facility] 08-02-2024 00:44-0400 Body temperature 37 Ruel Lozano MD Work Phone: [facility] 08-02-2024 00:28-0400 Body temperature 37 Ruel Lozano MD Work Phone: [facility] 08-02-2024 00:28-0400 SaO2% (BldA) [Mass fraction] 95 % Ruel Lozano MD Work Phone: [facility] 08-01-2024 23:01-0400 Body temperature 37 Ruel Lozano MD Work Phone: [facility] 08-01-2024 23:01-0400 SaO2% (BldA) [Mass fraction] 95 % Ruel Lozano MD Work Phone: [facility] 08-01-2024 21:09-0400 Body temperature 37 Ruel Lozano MD Work Phone: [facility] 08-01-2024 21:09-0400 SaO2% (BldA) [Mass fraction] 97 % Ruel Lozano MD Work Phone: [facility] 08-01-2024 18:06-0400 Body temperature 37 Ruel Lozano MD Work Phone: [facility] 08-01-2024 18:06-0400 SaO2% (BldA) [Mass fraction] 97 % Ruel Lozano MD Work Phone: [facility] 08-01-2024 17:36-0400 Body temperature 37 Ruel Lozano MD Work Phone: [facility] 08-01-2024 17:36-0400 SaO2% (BldA) [Mass fraction] 95 % Ruel Lozano MD Work Phone: [facility] 08-01-2024 15:02-0400 Body temperature 37 Ruel Lozano MD Work Phone: [facility] 08-01-2024 15:02-0400 SaO2% (BldA) [Mass fraction] 100 % Ruel Lozano MD Work Phone: [facility] 08-01-2024 13:18-0400 Body temperature 37.0 [facility] Comment on above: NOTE: Patient Results are Not Corrected for Temperature 08-01-2024 13:18-0400 SaO2% (BldA) [Mass fraction] 100 % [facility] 08-01-2024 05:50-0400 Body height 152.4 cm Ruel Lozano MD Work Phone: [facility] 07-07-2024 10:45-0400 Body height 152.4 cm Ruel Lozano MD Work Phone: [facility] 07-07-2024 10:45-0400 Body mass index (BMI) [Ratio] 28.28 kg/m2 Ruel Lozano MD Work Phone: [facility] 07-07-2024 10:45-0400 Body weight 65.68 kg Ruel Lozano MD Work Phone: [facility] 07-07-2024 10:45-0400 Diastolic blood pressure 81 mm[Hg] Ruel Lozano MD Work Phone: [facility] 07-07-2024 10:45-0400 Heart rate 67 /min Ruel Lozano MD Work Phone: [facility] 07-07-2024 10:45-0400 SaO2% (BldA) [Mass fraction] 93 % Ruel Lozano MD Work Phone: [facility] 07-07-2024 10:45-0400 Systolic blood pressure 142 mm[Hg] Reul Lozano MD Work Phone: [facility] 06-28-2024 11:50-0400 Body mass index (BMI) [Ratio] 27.8 kg/m2 Cindy Bae MD Work Phone: [facility] 06-28-2024 11:50-0400 Body temperature 97.2 [degF] Cindy Bae MD Work Phone: [facility] 06-28-2024 11:50-0400 Body weight 64.82 kg Cindy Bae MD Work Phone: [facility] 06-28-2024 11:50-0400 Diastolic blood pressure 73 mm[Hg] Cindy Bae MD Work Phone: [facility] 06-28-2024 11:50-0400 Heart rate 67 /min Cindy Bae MD Work Phone: [facility] 06-28-2024 11:50-0400 Respiratory rate 16 /min Cindy Bae MD Work Phone: [facility] 06-28-2024 11:50-0400 SaO2% (BldA) [Mass fraction] 97 % Cindy Bae MD Work Phone: [facility] 06-28-2024 11:50-0400 Systolic blood pressure 122 mm[Hg] Cindy Bae MD Work Phone: [facility] 06-28-2024 10:25-0400 Body mass index (BMI) [Ratio] 27.85 kg/m2 Marcelo Davey MD Work Phone: [facility] 06-28-2024 10:25-0400 Body temperature 97.9 [degF] Marcelo Davey MD Work Phone: [facility] 06-28-2024 10:25-0400 Body weight 64.95 kg Marcelo Davey MD Work Phone: [facility] 06-28-2024 10:25-0400 Diastolic blood pressure 72 mm[Hg] Marcelo Davey MD Work Phone: [facility] 06-28-2024 10:25-0400 Heart rate 63 /min Marcelo Davey MD Work Phone: [facility] 06-28-2024 10:25-0400 Systolic blood pressure 115 mm[Hg] Marcelo Davey MD Work Phone: [facility] 04-30-2024 19:56-0400 Diastolic blood pressure 64 mm[Hg] Tk Nicole MD Work Phone: [facility] 04-30-2024 19:56-0400 Heart rate 63 /min Tk Nicole MD Work Phone: [facility] 04-30-2024 19:56-0400 Respiratory rate 16 /min Tk Nicole MD Work Phone: [facility] 04-30-2024 19:56-0400 SaO2% (BldA) [Mass fraction] 96 % Tk Nicole MD Work Phone: [facility] 04-30-2024 19:56-0400 Systolic blood pressure 143 mm[Hg] Tk Nicole MD Work Phone: [facility] 04-30-2024 13:22-0400 Body height 152.4 cm Tk Nicole MD Work Phone: [facility] 04-30-2024 13:22-0400 Body mass index (BMI) [Ratio] 28.51 kg/m2 Tk Nicole MD Work Phone: [facility] 04-30-2024 13:22-0400 Body temperature 98.2 [degF] Tk Nicole MD Work Phone: [facility] 04-30-2024 13:22-0400 Body weight 66.22 kg Tk Nicole MD Work Phone: [facility] 04-19-2024 09:13-0400 Body mass index (BMI) [Ratio] 29.29 kg/m2 Neli Cox [employer] PROJECTIONIST-[employer] Work Phone: [facility] 04-19-2024 09:13-0400 Body weight 68.3 kg Neli Cox [employer] PROJECTIONIST-[employer] Work Phone: [facility] 04-19-2024 09:13-0400 Diastolic blood pressure 59 mm[Hg] Neli Cox [employer] PROJECTIONIST-[employer] Work Phone: [facility] 04-19-2024 09:13-0400 Heart rate 60 /min Neli Cox [employer] PROJECTIONIST-[employer] Work Phone: [facility] 04-19-2024 09:13-0400 Systolic blood pressure 128 mm[Hg] Neli Cox [employer] PROJECTIONIST-[employer] Work Phone: [facility] 03-29-2024 10:09-0400 Body mass index (BMI) [Ratio] 29.72 kg/m2 Marcelo Davey MD Work Phone: [facility] 03-29-2024 10:09-0400 Body temperature 97.7 [degF] Marcelo Davey MD Work Phone: [facility] 03-29-2024 10:09-0400 Body weight 69.31 kg Marcelo Davey MD Work Phone: [facility] 03-29-2024 10:09-0400 Diastolic blood pressure 75 mm[Hg] Marcelo Davey MD Work Phone: [facility] 03-29-2024 10:09-0400 Heart rate 60 /min Marcelo Davey MD Work Phone: [facility] 03-29-2024 10:09-0400 SaO2% (BldA) [Mass fraction] 94 % Marcelo Davey MD Work Phone: [facility] 03-29-2024 10:09-0400 Systolic blood pressure 160 mm[Hg] Marcelo Davey MD Work Phone: [facility] 03-08-2024 13:28-0400 Diastolic blood pressure 78 mm[Hg] Cindy Bae MD Work Phone: [facility] 03-08-2024 13:28-0400 Heart rate 95 /min Cindy Bae MD Work Phone: [facility] 03-08-2024 13:28-0400 Systolic blood pressure 136 mm[Hg] Cindy Bae MD Work Phone: [facility] 03-08-2024 11:35-0400 Body mass index (BMI) [Ratio] 29.76 kg/m2 Marcelo Davey MD Work Phone: [facility] 03-08-2024 11:35-0400 Body weight 69.4 kg Marcelo Davey MD Work Phone: [facility] 03-08-2024 11:35-0400 Diastolic blood pressure 78 mm[Hg] Marcelo Davey MD Work Phone: [facility] 03-08-2024 11:35-0400 Heart rate 62 /min Marcelo Davey MD Work Phone: [facility] 03-08-2024 11:35-0400 Systolic blood pressure 136 mm[Hg] Marcelo Davey MD Work Phone: [facility] 03-02-2024 12:15-0400 Diastolic blood pressure 76 mm[Hg] [address] 03-02-2024 12:15-0400 Heart rate 61 /min [address] 03-02-2024 12:15-0400 Respiratory rate 16 /min [address] 03-02-2024 12:15-0400 SaO2% (BldA) [Mass fraction] 93 % [address] 03-02-2024 12:15-0400 Systolic blood pressure 133 mm[Hg] [address] 03-02-2024 11:25-0400 Body temperature 97.9 [degF] [address] 02-09-2024 11:35-0400 Body height 152.7 cm Marcelo Davey MD Work Phone: [facility] 02-09-2024 11:35-0400 Body mass index (BMI) [Ratio] 29.88 kg/m2 Marcelo Davey MD Work Phone: [facility] 02-09-2024 11:35-0400 Body temperature 98.01 [degF] Marcelo Davey MD Work Phone: [facility] 02-09-2024 11:35-0400 Body weight 69.67 kg Marcelo Davey MD Work Phone: [facility] 02-09-2024 11:35-0400 Diastolic blood pressure 78 mm[Hg] Marcelo Davey MD Work Phone: [facility] 02-09-2024 11:35-0400 Heart rate 60 /min Marcelo Davey MD Work Phone: [facility] 02-09-2024 11:35-0400 SaO2% (BldA) [Mass fraction] 95 % Marcelo Davey MD Work Phone: [facility] 02-09-2024 11:35-0400 Systolic blood pressure 150 mm[Hg] Marcelo Davey MD Work Phone: [facility] 02-09-2024 11:30-0400 Body height 152.7 cm Malgorzata Clifford MD Work Phone: [facility] 02-09-2024 11:30-0400 Body mass index (BMI) [Ratio] 29.88 kg/m2 Malgorzata Clifford MD Work Phone: [facility] 02-09-2024 11:30-0400 Body temperature 98.01 [degF] Malogrzata Clifford MD Work Phone: [facility] 02-09-2024 11:30-0400 Body weight 69.67 kg Malgorzata Clifford MD Work Phone: [facility] 02-09-2024 11:30-0400 Diastolic blood pressure 78 mm[Hg] Malgorzata Clifford MD Work Phone: [facility] 02-09-2024 11:30-0400 Heart rate 60 /min Malgorzata Clifford MD Work Phone: [facility] 02-09-2024 11:30-0400 SaO2% (BldA) [Mass fraction] 95 % Malgorzata Clifford MD Work Phone: [facility] 02-09-2024 11:30-0400 Systolic blood pressure 150 mm[Hg] Malgorzata Clifford MD Work Phone: [facility] 01-27-2024 11:26-0400 Body weight 69.[address] Daniela Fallon Work Phone: [facility] 01-04-2024 12:54-0400 Body height 152.[address] Daniela Fallon Work Phone: [facility] 01-04-2024 12:54-0400 Body mass index (BMI) [Ratio] 30.3 kg/m2 Dr. Daniela Fallon Work Phone: [facility] 01-04-2024 12:54-0400 Body temperature 97.9 [degF] Dr. Daniela Fallon Work Phone: [facility] 01-04-2024 12:54-0400 Body weight 70.[address] Daniela Fallon Work Phone: [facility] 01-04-2024 12:54-0400 Diastolic blood pressure 75 mm[Hg] Dr. Daniela Fallon Work Phone: [facility] 01-04-2024 12:54-0400 Heart rate 59 /min Dr. Daniela Fallon Work Phone: [facility] 01-04-2024 12:54-0400 Respiratory rate 18 /min Dr. Daniela Fallon Work Phone: [facility] 01-04-2024 12:54-0400 SaO2% (BldA) [Mass fraction] 95 % Dr. Daniela Fallno Work Phone: [facility] 01-04-2024 12:54-0400 Systolic blood pressure 137 mm[Hg] Dr. Daniela Fallon Work Phone: [facility] 12-08-2023 12:32-0500 Body temperature 97 [degF] Dr. Daniela Fallon Work Phone: [facility] 12-08-2023 12:32-0500 Diastolic blood pressure 69 mm[Hg] Dr. Daniela Fallon Work Phone: [facility] 12-08-2023 12:32-0500 Heart rate 60 /min Dr. Daniela Fallon Work Phone: [facility] 12-08-2023 12:32-0500 Respiratory rate 17 /min Dr. Daniela Fallon Work Phone: [facility] 12-08-2023 12:32-0500 SaO2% (BldA) [Mass fraction] 95 % Dr. Daniela Fallon Work Phone: [facility] 12-08-2023 12:32-0500 Systolic blood pressure 141 mm[Hg] Dr. Daniela Fallon Work Phone: [facility] 12-02-2023 14:41-0500 Body height 152.4 cm Ruel Lozano MD Work Phone: [facility] 12-02-2023 14:41-0500 Body mass index (BMI) [Ratio] 29.88 kg/m2 Ruel Lozano MD Work Phone: [facility] 12-02-2023 14:41-0500 Body weight 69.4 kg Ruel Lozano MD Work Phone: [facility] 12-02-2023 14:41-0500 Diastolic blood pressure 73 mm[Hg] Ruel Lozano MD Work Phone: [facility] 12-02-2023 14:41-0500 Heart rate 60 /min uRel Lozano MD Work Phone: [facility] 12-02-2023 14:41-0500 SaO2% (BldA) [Mass fraction] 94 % Ruel Lozano MD Work Phone: [facility] 12-02-2023 14:41-0500 Systolic blood pressure 125 mm[Hg] Ruel Lozano MD Work Phone: [facility] 11-24-2023 08:01-0500 Body height 152.[address] Daniela Fallon Work Phone: [facility] 11-24-2023 08:01-0500 Body mass index (BMI) [Ratio] 29.7 kg/m2 Dr. Daniela Fallon Work Phone: [facility] 11-24-2023 08:01-0500 Body temperature 97.8 [degF] Dr. Daniela Fallon Work Phone: [facility] 11-24-2023 08:01-0500 Body weight 68.[address] Daniela Fallon Work Phone: [facility] 11-24-2023 08:01-0500 Diastolic blood pressure 90 mm[Hg] Dr. Daniela Fallon Work Phone: [facility] 11-24-2023 08:01-0500 Heart rate 68 /min Dr. Daniela Fallon Work Phone: [facility] 11-24-2023 08:01-0500 SaO2% (BldA) [Mass fraction] 98 % Dr. Daniela Fallon Work Phone: [facility] 11-24-2023 08:01-0500 Systolic blood pressure 144 mm[Hg] Dr. Daniela Fallon Work Phone: [facility] 08-13-2023 09:14-0400 Body height 152.[address] Daniela Fallon Work Phone: [facility] 08-13-2023 09:14-0400 Body mass index (BMI) [Ratio] 29.9 kg/m2 Dr. Daniela Fallon Work Phone: [facility] 08-13-2023 09:14-0400 Body temperature 98.2 [degF] Dr. Daniela Fallon Work Phone: [facility] 08-13-2023 09:14-0400 Body weight 69.[address] Daniela Fallon Work Phone: [facility] 08-13-2023 09:14-0400 Diastolic blood pressure 84 mm[Hg] Dr. Daniela Fallon Work Phone: [facility] 08-13-2023 09:14-0400 Heart rate 69 /min Dr. Daniela Fallon Work Phone: [facility] 08-13-2023 09:14-0400 Respiratory rate 16 /min Dr. Daniela Fallon Work Phone: [facility] 08-13-2023 09:14-0400 SaO2% (BldA) [Mass fraction] 96 % Dr. Daniela Fallon Work Phone: [facility] 08-13-2023 09:14-0400 Systolic blood pressure 130 mm[Hg] Dr. Daniela Fallon Work Phone: [facility] 07-05-2023 14:48-0400 Diastolic Blood Pressure Non-Invasive 76 1 JUAN F MARCOS MD [address] [place] [address] 07-05-2023 14:48-0400 Heart rate 60 /min JUAN F MARCOS MD [address] [place] [address] 07-05-2023 14:48-0400 Respiratory rate 16 /min JUAN F MARCOS MD [address] [place] [address] 07-05-2023 14:48-0400 Systolic Blood Pressure Non-Invasive 136 1 JUAN F MARCOS MD [address] [place] [address] 07-05-2023 14:20-0400 Respiratory rate 16 /min JUAN F MARCOS MD [address] [place] [address] 07-05-2023 13:48-0400 Diastolic Blood Pressure Non-Invasive 68 1 JUAN F MARCOS MD [address] [place] [address] 07-05-2023 13:48-0400 Heart rate 62 /min JUAN F MARCOS MD [address] [place] [address] 07-05-2023 13:48-0400 Respiratory rate 16 /min JUAN F MARCOS MD [address] [place] [address] 07-05-2023 13:48-0400 Systolic Blood Pressure Non-Invasive 152 1 JUAN F MARCOS MD [address] [place] [address] 07-05-2023 13:35-0400 Diastolic Blood Pressure Non-Invasive 69 1 JUAN F MARCOS MD [address] [place] [address] 07-05-2023 13:35-0400 Heart rate 60 /min JUAN F MARCOS MD [address] [place] [address] 07-05-2023 13:35-0400 Systolic Blood Pressure Non-Invasive 176 1 JUAN F MARCOS MD [address] [place] [address] 07-05-2023 13:30-0400 Heart rate 60 /min JUAN F AMRCOS MD [address] [place] [address] 07-05-2023 13:25-0400 Heart rate 60 /min JUAN F MARCOS MD [address] [place] [address] 07-05-2023 13:10-0400 Respiratory Rate - Anes 0 br/min JUAN F MARCOS MD [address] [place] [address] 07-05-2023 13:05-0400 Body temperature 97.52 [degF] JUAN F MARCOS MD [address] [place] [address] 07-05-2023 13:05-0400 Respiratory Rate - Anes 0 br/min JUAN F MARCOS MD [address] [place] [address] 07-05-2023 08:53-0400 Body weight 29.49 kg/m2 JUAN F MARCOS MD [address] [place] [address] 07-05-2023 08:44-0400 Body height 152.4 cm JUAN F MARCOS MD [address] [place] [address] 07-05-2023 08:44-0400 Body temperature 97.7 [degF] JUAN F MARCOS MD [address] [place] [address] 07-05-2023 08:44-0400 Body weight 68.5 kg JUAN F MARCOS MD [facility] 07-05-2023 08:44-0400 Body weight 29.49 kg/m2 JUAN F MARCOS MD [facility] 07-05-2023 08:44-0400 Heart rate 58 /min JUAN F MARCOS MD [facility] 12-25-2022 08:37-0500 Body height 152.[address] Daniela Fallon Work Phone: [facility] 12-25-2022 08:37-0500 Body mass index (BMI) [Ratio] 28.3 kg/m2 Dr. Daniela Fallon Work Phone: [facility] 12-25-2022 08:37-0500 Body temperature 96.5 [degF] Dr. Daniela Fallon Work Phone: [facility] 12-25-2022 08:37-0500 Body weight 65.[address] Daniela Fallon Work Phone: [facility] 12-25-2022 08:37-0500 Diastolic blood pressure 84 mm[Hg] Dr. Daniela Fallon Work Phone: [facility] 12-25-2022 08:37-0500 Heart rate 96 /min Dr. Daniela Fallon Work Phone: [facility] 12-25-2022 08:37-0500 Respiratory rate 16 /min Dr. Daniela Fallon Work Phone: [facility] 12-25-2022 08:37-0500 SaO2% (BldA) [Mass fraction] 96 % Dr. Daniela Fallon Work Phone: [facility] 12-25-2022 08:37-0500 Systolic blood pressure 130 mm[Hg] Dr. Daniela Fallon Work Phone: [facility] 11-12-2022 11:49-0500 Body temperature 97.81 [degF] Keyanna Praisler-Wood [employer]URE PROJECTIONIST.CUSTOM STOCK MAKER Work Phone: [facility] 11-12-2022 11:49-0500 Body weight 67.77 kg Keyanna Praisler-Wood [employer]URE PROJECTIONIST.CUSTOM STOCK MAKER Work Phone: [facility] 11-12-2022 11:49-0500 Diastolic blood pressure 74 mm[Hg] Keyanna Praisler-Wood [employer]URE PROJECTIONIST.CUSTOM STOCK MAKER Work Phone: [facility] 11-12-2022 11:49-0500 Heart rate 60 /min Keyanna Praisler-Wood [employer]URE PROJECTIONIST.CUSTOM STOCK MAKER Work Phone: [facility] 11-12-2022 11:49-0500 Respiratory rate 18 /min Keyanna Praisler-Wood [employer]URE PROJECTIONIST.CUSTOM STOCK MAKER Work Phone: [facility] 11-12-2022 11:49-0500 SaO2% (BldA) [Mass fraction] 96 % Keyanna Praisler-Wood [employer]URE PROJECTIONIST.CUSTOM STOCK MAKER Work Phone: [facility] 11-12-2022 11:49-0500 Systolic blood pressure 124 mm[Hg] Keyanna Praisler-Wood [employer]URE PROJECTIONIST.CUSTOM STOCK MAKER Work Phone: [facility] 10-27-2022 08:51-0500 Body mass index (BMI) [Ratio] 28.1 kg/m2 Dr. Daniela Fallon Work Phone: [facility] 10-27-2022 08:51-0500 Body temperature 98.1 [degF] Dr. Daniela Fallon Work Phone: [facility] 10-27-2022 08:51-0500 Body weight 65.[address] Daniela Fallon Work Phone: [facility] 10-27-2022 08:51-0500 Diastolic blood pressure 72 mm[Hg] Dr. Daniela Fallon Work Phone: [facility] 10-27-2022 08:51-0500 Heart rate 71 /min Dr. Daniela Fallon Work Phone: [facility] 10-27-2022 08:51-0500 Respiratory rate 16 /min Dr. Daniela Fallon Work Phone: [facility] 10-27-2022 08:51-0500 SaO2% (BldA) [Mass fraction] 96 % Dr. Daniela Fallon Work Phone: [facility] 10-27-2022 08:51-0500 Systolic blood pressure 120 mm[Hg] Dr. Daniela Fallon Work Phone: [facility] 09-15-2022 08:22-0500 Body temperature 96.1 [degF] Dr. Daniela Fallon Work Phone: [facility] 09-15-2022 08:22-0500 Body weight 66.[address] Daniela Fallon Work Phone: [facility] 09-15-2022 08:22-0500 Diastolic blood pressure 88 mm[Hg] Dr. Daniela Fallon Work Phone: [facility] 09-15-2022 08:22-0500 Heart rate 66 /min Dr. Daniela Fallon Work Phone: [facility] 09-15-2022 08:22-0500 Respiratory rate 18 /min Dr. Daniela Fallon Work Phone: [facility] 09-15-2022 08:22-0500 SaO2% (BldA) [Mass fraction] 96 % Dr. Daniela Fallon Work Phone: [facility] 09-15-2022 08:22-0500 Systolic blood pressure 138 mm[Hg] Dr. Daniela Fallon Work Phone: [facility] 07-07-2022 13:15-0400 Body height 152.[address] Daniela Fallon Work Phone: [facility] Work Phone: 07-07-2022 13:15-0400 Body temperature 95.6 [degF] Dr. Daniela Fallon Work Phone: [facility] Work Phone: 07-07-2022 13:15-0400 Diastolic blood pressure 80 mm[Hg] Dr. Daniela Fallon Work Phone: [facility] Work Phone: 07-07-2022 13:15-0400 Heart rate 89 /min Dr. Daniela Fallon Work Phone: [facility] Work Phone: 07-07-2022 13:15-0400 Respiratory rate 18 /min Dr. Daniela Fallon Work Phone: [facility] Work Phone: 07-07-2022 13:15-0400 SaO2% (BldA) [Mass fraction] 96 % Dr. Daniela Fallon Work Phone: [facility] Work Phone: 07-07-2022 13:15-0400 Systolic blood pressure 144 mm[Hg] Dr. Daniela Fallon Work Phone: [facility] Work Phone: 05-27-2022 09:23-0400 Body height 152.[address] Daniela Fallon Work Phone: [facility] Work Phone: 05-27-2022 09:23-0400 Body mass index (BMI) [Ratio] 28.7 kg/m2 Dr. Daniela Fallon Work Phone: [facility] Work Phone: 05-27-2022 09:23-0400 Body temperature 96.6 [degF] Dr. Daniela Fallon Work Phone: [facility] Work Phone: 05-27-2022 09:23-0400 Body weight 66.[address] Daniela Fallon Work Phone: [facility] Work Phone: 05-27-2022 09:23-0400 Diastolic blood pressure 70 mm[Hg] Dr. Daniela Fallon Work Phone: [facility] Work Phone: 05-27-2022 09:23-0400 Heart rate 68 /min Dr. Daniela Fallon Work Phone: [facility] Work Phone: 05-27-2022 09:23-0400 Respiratory rate 18 /min Dr. Daniela Fallon Work Phone: [facility] Work Phone: 05-27-2022 09:23-0400 SaO2% (BldA) [Mass fraction] 96 % Dr. Daniela Fallon Work Phone: [facility] Work Phone: 05-27-2022 09:23-0400 Systolic blood pressure 110 mm[Hg] Dr. Daniela Fallon Work Phone: [facility] Work Phone: 02-24-2022 09:46-0400 Body mass index (BMI) [Ratio] 29.7 kg/m2 Dr. Daniela Fallon Work Phone: [facility] Work Phone: 02-24-2022 09:46-0400 Body temperature 97.9 [degF] Dr. Daniela Fallon Work Phone: [facility] Work Phone: 02-24-2022 09:46-0400 Body weight 68.[address] Daniela Fallon Work Phone: [facility] Work Phone: 02-24-2022 09:46-0400 Diastolic blood pressure 78 mm[Hg] Dr. Daniela Fallon Work Phone: [facility] Work Phone: 02-24-2022 09:46-0400 Heart rate 60 /min Dr. Daniela Fallon Work Phone: [facility] Work Phone: 02-24-2022 09:46-0400 Respiratory rate 14 /min Dr. Daniela Fallon Work Phone: [facility] Work Phone: 02-24-2022 09:46-0400 SaO2% (BldA) [Mass fraction] 96 % Dr. Daniela Fallon Work Phone: [facility] Work Phone: 02-24-2022 09:46-0400 Systolic blood pressure 142 mm[Hg] Dr. Daniela Fallon Work Phone: [facility] Work Phone: 11-24-2021 13:44-0500 Body height 152.[address] Daniela Fallon Work Phone: [facility] Work Phone: 11-24-2021 13:44-0500 Body mass index (BMI) [Ratio] 29.7 kg/m2 Dr. Daniela Fallon Work Phone: [facility] Work Phone: 11-24-2021 13:44-0500 Body temperature 95.4 [degF] Dr. Daniela Fallon Work Phone: [facility] Work Phone: 11-24-2021 13:44-0500 Body weight 68.[address] Daniela Fallon Work Phone: [facility] Work Phone: 11-24-2021 13:44-0500 Diastolic blood pressure 86 mm[Hg] Dr. Daniela Fallon Work Phone: [facility] Work Phone: 11-24-2021 13:44-0500 Heart rate 78 /min Dr. Daniela Fallon Work Phone: [facility] Work Phone: 11-24-2021 13:44-0500 Respiratory rate 16 /min Dr. Daniela Fallon Work Phone: [facility] Work Phone: 11-24-2021 13:44-0500 SaO2% (BldA) [Mass fraction] 95 % Dr. Daniela Fallon Work Phone: [facility] Work Phone: 11-24-2021 13:44-0500 Systolic blood pressure 130 mm[Hg] Dr. Daniela Fallon Work Phone: [facility] Work Phone: 08-18-2021 15:14-0400 Body temperature 97.8 [degF] Dr. Daniela Fallon Work Phone: [facility] Work Phone: 08-18-2021 15:14-0400 Body weight 69.[address] Daniela Fallon Work Phone: [facility] Work Phone: 08-18-2021 15:14-0400 Diastolic blood pressure 98 mm[Hg] Dr. Daniela Fallon Work Phone: [facility] Work Phone: 08-18-2021 15:14-0400 Heart rate 77 /min Dr. Daniela Fallon Work Phone: [facility] Work Phone: 08-18-2021 15:14-0400 Respiratory rate 16 /min Dr. Daniela Fallon Work Phone: [facility] Work Phone: 08-18-2021 15:14-0400 SaO2% (BldA) [Mass fraction] 97 % Dr. Daniela Fallon Work Phone: [facility] Work Phone: 08-18-2021 15:14-0400 Systolic blood pressure 152 mm[Hg] Dr. Daniela Fallon Work Phone: [facility] Work Phone: 05-19-2021 14:54-0400 Body mass index (BMI) [Ratio] 26.9 kg/m2 Dr. Daniela Fallon Work Phone: [facility] Work Phone: Encounters Encounter Date Encounter Type Care Provider Facility Start: 08-10-2025 End: 08-10-2025 ambulatory [facility] Start: 08-09-2025 End: 08-09-2025 ambulatory [facility] Start: 08-07-2025 End: 08-07-2025 Patient encounter procedure Claudia STONER -[facility] Work Phone: Start: 08-07-2025 End: 08[facility] Start: 07-31-2025 End: 07-31-2025 Office outpatient visit 40 minutes Neli Cox [employer] PROJECTIONIST-CUSTOM STOCK MAKER Work Phone: [facility] Comment on above: Malignant neoplasm o f lower-outer quadrant of right breast of female, estrogen receptor negative; Encounter for antineoplastic chemotherapy; Chemotherapy-induced neutropenia; Chemotherapy-induced nausea; Chemotherapy-induced fatigue; Malignant neoplasm of areola of breast in female, estrogen receptor negative, unspecified laterality (Multi); Poor balance; Abnormality of gait and mobility; Difficulty maintaining weight loss Start: 07-31-2025 End: 07-31-2025 ambulatory NELI COX [facility] Start: 07-18-2025 End: 07-18-2025 ambulatory [facility] Start: 07-17-2025 End: 07-17-2025 ambulatory [facility] Start: 07-16-2025 ambulatory DANIELA FALLON MD F acility:[facility] Start: 07-13-2025 End: 07-13-[address] Daniela Fallon MD -[facility] Work Phone: Start: 07-13-2025 End: 07-13-[address] Daniela Fallon MD Work Phone: -[facility] Start: 06-28-2025 End: 06-28-2025 ambulatory [facility] Start: 06-27-2025 End: 06-27-2025 ambulatory [facility] Start: 06-27-2025 End: 06-27-2025 Office outpatient visit 40 minutes Marcelo Davey MD Work Phone: [facility] Comment on above: Malignant neoplasm o f areola of breast in female, estrogen receptor negative, unspecified laterality (Primary Dx); Chemotherapy-induced nausea; Malignant neoplasm of lower-outer quadrant of right breast of female, estrogen receptor negative; Encounter for antineoplastic chemotherapy; Chemotherapy-induced fatigue Start: 06-26-2025 End: 06-26-2025 ambulatory [facility] Start: 06-21-2025 End: 06-21-2025 Subsequent hospital visit by physician Jennyfer Sanches 1 [facility] Comment on above: Malignant neoplasm o f lower-outer quadrant of right breast of female, estrogen receptor negative; Encounter for antineoplastic chemotherapy; Malignant neoplasm of areola of breast in female, estrogen receptor negative, unspecified laterality Start: 06-21-2025 End: 06-21-2025 ambulatory NELI COX [facility] Start: 06-20-2025 End: 06-20-2025 ambulatory NELI COX [facility] Start: 06-06-2025 End: 06-06-2025 ambulatory [facility] Start: 06-05-2025 End: 06-05-2025 ambulatory [facility] Start: 05-17-2025 End: 05-17-2025 ambulatory [facility] Start: 05-16-2025 End: 05-16-2025 ambulatory NELI Nagel [facility] Start: 05-16-2025 End: 05-16-2025 Office outpatient visit 40 minutes Neli R Kenny [employer]URE PROJECTIONIST-C[employer]OM STOCK MAKER Work Phone: [facility] Comment on above: Chemotherapy-induced nausea; Malignant neoplasm of lower-outer quadrant of right breast of female, estrogen receptor negative; Encounter for antineoplastic chemotherapy; Chemotherapy-induced fatigue; Malignant neoplasm of areola of breast in female, estrogen receptor negative, unspecified laterality Start: 05-15-2025 End: 05-15-2025 ambulatory NELI COX [facility] Start: 05-03-2025 End: 05-03-2025 Office outpatient new 30 minutes Yany Page [employer]URE PROJECTIONIST-CUSTOM STOCK MAKER Work Phone: [facility] Comment on above: Encounter for monito ring cardiotoxic drug therapy (Primary Dx) Start: 05-03-2025 End: 05-03-2025 ambulatory YANY PAGE [facility] Start: 04-26-2025 End: 04-26-2025 Subsequent hospital visit by physician [facility] Comment on above: Malignant neoplasm o f areola of breast in female, estrogen receptor negative, unspecified laterality; Status post administration of cardiotoxic chemotherapy; Aortic valve stenosis, etiology of cardiac valve disease unspecified Start: 04-26-2025 End: 04-26-2025 ambulatory [facility] Start: 04-25-2025 End: 04-25-2025 [facility] Start: 04-24-2025 End: 04-24-2025 ambulatory MARCELO Ibrahim [facility] Start: 04-18-2025 End: 04-18-2025 Emergency department patient visit Dr. Daniela Fallon MD Work Phone: -Emergency Department Work Phone: Start: 04-05-2025 End: 04-05-2025 Patient encounter procedure Claudia Rubio [employer] -[facility] Work Phone: Start: 04-05-2025 End: 04-05-[address] Daniela Fallon MD Work Phone: [facility] Work Phone: Start: 04-04-2025 End: 04-04-2025 ambulatory MARCELO Ibrahim [facility] Start: 04-03-2025 End: 04-03-2025 ambulatory NELI Nagel [facility] Start: 03-28-2025 End: 03-28-2025 ambulatory MARCELO [facility] Start: 03-28-2025 End: 03-28-2025 Office outpatient visit 40 minutes Marcelo Davey MD Work Phone: [facility] Comment on above: Malignant neoplasm o f areola of breast in female, estrogen receptor negative, unspecified laterality (Primary Dx); Malignant neoplasm of lower-outer quadrant of right breast of female, estrogen receptor negative; Encounter for antineoplastic chemotherapy Start: 03-21-2025 End: 03-21-2025 Subsequent hospital visit by physician Jennyfer Sanches 1 [facility] Comment on above: Malignant neoplasm o f areola of breast in female, estrogen receptor negative, unspecified laterality; Malignant neoplasm of lower-outer quadrant of right breast of female, estrogen receptor negative; Encounter for antineoplastic chemotherapy Start: 03-21-2025 End: 03-21-2025 ambulatory NELI Nagel [facility] Start: 03-20-2025 End: 03-20-2025 ambulatory [facility] Start: 03-14-2025 End: 03-14-2025 [facility] Start: 03-08-2025 End: 03-08-2025 ambulatory NELI Robe KENNY [facility] Start: 02-21-2025 End: 02-21-2025 ambulatory [facility] Start: 02-20-2025 End: 02-20-2025 ambulatory NELI R COX [facility] Start: 02-14-2025 End: 02-14-2025 Office outpatient visit 40 minutes Nelialyce Cox [employer]URE PROJECTIONIST-CUSTOM STOCK MAKER Work Phone: [facility] Comment on above: Malignant neoplasm o f areola of breast in female, estrogen receptor negative, unspecified laterality; Malignant neoplasm of lower-outer quadrant of right breast of female, estrogen receptor negative; Encounter for antineoplastic chemotherapy Start: 02-14-2025 End: 02-14-2025 ambulatory NELI COX [facility] Start: 02-06-2025 End: 02-06-2025 Patient encounter procedure Aaron HURD [facility] Work Phone: Start: 02-06-2025 End: 02-06-[address] Daniela Fallon MD Work Phone: [facility] Work Phone: Start: 02-06-2025 End: 02-06-2025 ambulatory Aaron HURD Facility:[facility] Start: 01-31-2025 End: 01-31-2025 ambulatory [facility] Start: 01-29-2025 End: 01-29-2025 ambulatory [facility] Start: 01-10-2025 End: 01-10-2025 ambulatory [facility] Start: 01-08-2025 End: 01-08-2025 ambulatory [facility] Start: 01-03-2025 End: 01-03-2025 Office outpatient visit 40 minutes Marcelo Davey MD Work Phone: [facility] Comment on above: Malignant neoplasm o f areola of breast in female, estrogen receptor negative, unspecified laterality (Primary Dx); Status post administration of cardiotoxic chemotherapy; Aortic valve stenosis, etiology of cardiac valve disease unspecified Start: 01-03-2025 End: 01-03-2025 ambulatory MARCELO Ibrahim PETAR [facility] Start: 01-01-2025 End: 01-01-2025 ambulatory NELI Nagel [facility] Start: 12-22-2024 End: 12-22-[address] Daniela Fallon MD Work Phone: [facility] Work Phone: Start: 12-22-2024 End: 12-22-[address] Daniela Fallon MD -Laboratory, [place] Start: 12-22-2024 End: 12-22-2024 Patient encounter procedure Aaron HURD [facility] Work Phone: Start: 12-22-2024 End: 12-22-2024 ambulatory [facility] Start: 12-22-2024 End: 12-22-2024 ambulatory [facility] Facility:[facility] Start: 12-18-2024 End: 12-18-2024 ambulatory [facility] Start: 12-15-2024 Non-patient / Non-visit Dr. Migdalia Spring [facility] Work Phone: Start: 12-14-2024 Non-patient / Non-visit Dr. Migdalia Spring [facility] Work Phone: Start: 12-13-2024 Non-patient / Non-visit Dr. Migdalia Spring [facility] Work Phone: Start: 12-12-2024 Non-patient / Non-visit Dr. Migdalia Spring [facility] Work Phone: Start: 12-11-2024 Non-patient / Non-visit Dr. Migdalia Spring [facility] Work Phone: Start: 12-10-2024 Non-patient / Non-visit Dr. Gerson Renae MD [facility] Work Phone: Start: 12-10-2024 ambulatory Tere Price Facility :[facility] Start: 12-10-2024 End: 12-15-2024 Evaluation and management of inpatient Dr. Guillaume [facility] Work Phone: Start: 12-09-2024 Non-patient / Non-visit Dr. Gerson Renae MD -[facility] Work Phone: Start: 12-08-2024 ambulatory Tere Nick [place] [facility] Start: 12-08-2024 Non-patient / Non-visit Dr. Tere Price MD [facility] Work Phone: Start: 12-06-2024 End: 12-06-2024 ambulatory MARCELO [facility] Start: 12-05-2024 End: 12-05-2024 [facility] Start: 11-30-2024 End: 11-30-2024 ambulatory [facility] Start: 11-29-2024 End: 11-29-2024 ambulatory [facility] Start: 11-29-2024 End: 11-29-2024 ambulatory [facility] Start: 11-08-2024 End: 11-08-2024 Office outpatient visit 40 minutes Marcelo Davey MD Work Phone: [facility] Comment on above: Carcinoma of breast, estrogen receptor positive, stage 3, unspecified laterality (Multi) (Primary Dx); Malignant neoplasm of lower-outer quadrant of right breast of female, estrogen receptor negative Start: 11-08-2024 End: 11-08-2024 ambulatory [facility] Start: 10-30-2024 End: 10-30-2024 ambulatory [facility] Start: 10-26-2024 End: 10-26-2024 Subsequent hospital visit by physician Frankie Grewal Mobile Admin [facility] Comment on above: Arrived Start: 10-26-2024 End: 10-26-2024 [facility] Start: 10-12-2024 End: 10-12-2024 [facility] Start: 10-09-2024 End: 10-09-2024 [facility] Start: 09-27-2024 End: 09-27-2024 Office outpatient visit 40 minutes Cindy Bae MD Work Phone: [facility] Comment on above: Status post coronary artery bypass grafting (Primary Dx); Cardiomyopathy, ischemic; Chronic diastolic heart failure; Aortic valve stenosis, etiology of cardiac valve disease unspecified Start: 09-27-2024 End: 09-27-2024 ambulatory [facility] Start: 09-24-2024 End: 09-24-2024 Emergency department patient visit Dr. Jesus Luu DO -Emergency Department Work Phone: Start: 09-20-2024 End: 09-20-2024 Subsequent hospital visit by physician Frankie Grande 2 [facility] Comment on above: Carcinoma of breast, estrogen receptor positive, stage 3, unspecified laterality (Multi); Malignant neoplasm of lower-outer quadrant of right breast of female, estrogen receptor negative Start: 09-20-2024 End: 09-20-2024 [facility] Start: 09-20-2024 End: 09-20-2024 Office outpatient visit 40 minutes Marcelo Davey MD Work Phone: [facility] Comment on above: Carcinoma of breast, estrogen receptor positive, stage 3, unspecified laterality (Multi) (Primary Dx); Malignant neoplasm of lower-outer quadrant of right breast of female, estrogen receptor negative Start: 09-20-2024 End: 09-20-2024 [facility] Start: 09-19-2024 End: 09-19-2024 Subsequent hospital visit by physician Med Echo/Stress [facility] Comment on above: Status post aortic v alve replacement Start: 09-19-2024 End: 09-19-2024 ambulatory RUEL LOZANO [facility] Start: 09-04-2024 End: 09-04-2024 ambulatory DANIELA FALLON [facility] Start: 09-01-2024 End: 09-01-2024 ambulatory Aaron HURD Facility:[facility] Start: 08-01-2024 End: 08-01-2024 Subsequent hospital visit by physician Frankie Malave Or Anest[facility] Comment on above: Arrived Start: 08-01-2024 End: 08-09-2024 Evaluation and management of inpatient Ruel Lozano MD Work Phone: [facility] [place] 3 Start: 07-26-2024 End: 07-26-2024 Patient encounter status [facility] Work Phone: Start: 07-26-2024 End: 07-26-2024 Subsequent hospital visit by physician Mando Lopez [facility] Comment on above: Aneurysm of ascendin g aorta without rupture ([facility]-HCC); Paroxysmal atrial fibrillation (Multi); Bilateral carotid artery stenosis; Other specified symptoms and signs involving the circulatory and respiratory systems; Encounter for other preprocedural examination Start: 07-26-2024 End: 07-26-2024 ambulatory [facility] Start: 07-26-2024 End: 07-26-2024 Encounter for other preprocedural examination [facility] Start: 07-17-2024 End: 07-17-2024 Subsequent hospital visit by physician Outside Study [facility] Comment on above: Arrived Start: 07-07-2024 End: 07-07-2024 Office outpatient visit 25 minutes Ruel Lozano MD Work Phone: [facility] Comment on above: Aortic valve stenosi s, etiology of cardiac valve disease unspecified; Aneurysm of ascending aorta without rupture ([facility]-HCC); Coronary artery disease of [place] artery of [place] heart with stable angina pectoris ([facility]-HCC) Start: 07-03-2024 End: 07-03-2024 Subsequent hospital visit by physician Outside Study [facility] Comment on above: Arrived Start: 06-28-2024 End: 06-28-2024 Office outpatient visit 40 minutes Cindy Bae MD Work Phone: [facility] Comment on above: Cardiomyopathy, isch emic; Chronic diastolic heart failure (Multi); Aortic valve stenosis, etiology of cardiac valve disease unspecified Start: 06-28-2024 End: 06-28-2024 Office outpatient visit 40 minutes Marcelo Davey MD Work Phone: [facility] Comment on above: Aortic valve disorde r (Primary Dx); Carcinoma of breast, estrogen receptor positive, stage 3, unspecified laterality (Multi); Malignant neoplasm of lower-outer quadrant of right breast of female, estrogen receptor negative (Multi); Encounter for antineoplastic chemotherapy; Chemotherapy-induced fatigue Start: 06-12-2024 End: 06-12-2024 Office outpatient visit 15 minutes Neli Cox [employer]ION PI[employer]URE PROJECTIONIST-CUSTOM STOCK MAKER Work Phone: [facility] Comment on above: Aortic valve disorde r (Primary Dx); Neck pain; Carcinoma of breast, estrogen receptor positive, stage 3, unspecified laterality (Multi); Malignant neoplasm of lower-outer quadrant of right breast of female, estrogen receptor negative (Multi) Start: 05-29-2024 End: 05-29-2024 Subsequent hospital visit by physician Outside Study [facility] Comment on above: Arrived Start: 04-30-2024 End: 04-30-2024 Emergency department patient visit Tk Nicole MD Work Phone: [facility] Comment on above: Neck pain (Primary D x) Start: 04-19-2024 End: 04-19-2024 Office outpatient visit 40 minutes Neli Cox MOTION PICTURE PROJECTIONIST-CUSTOM STOCK MAKER Work Phone: [facility] Comment on above: Malignant neoplasm o f lower-outer quadrant of right breast of female, estrogen receptor negative (Multi) (Primary Dx); Encounter for antineoplastic chemotherapy; Carcinoma of breast, estrogen receptor positive, stage 3, unspecified laterality (Multi); Chemotherapy-induced neutropenia (CMS-HCC); Chemotherapy-induced nausea; Chemotherapy-induced fatigue Start: 04-19-2024 End: 04-19-2024 Subsequent hospital visit by physician adwoa X-Ray 2 [facility] Comment on above: ICD (implantable car dioverter-defibrillator) in place Start: 03-29-2024 End: 03-29-2024 Office outpatient visit 40 minutes Marcelo Davey MD Work Phone: [facility] Comment on above: Carcinoma of breast, estrogen receptor positive, stage 3, unspecified laterality (Multi) (Primary Dx); Ascending aorta dilation (CMS-HCC); Aortic valve disorder; Encounter for antineoplastic chemotherapy Start: 03-20-2024 End: 03-20-2024 ambulatory CINDY BAE Facility:B Start: 03-20-2024 End: 03-20-2024 Patient encounter procedure CINDY BAE [facility] Start: 03-17-2024 End: 03-17-2024 Subsequent hospital visit by physician Bhavesh Echo/Stress [facility] Comment on above: Cardiomyopathy, isch emic; Chronic diastolic heart failure (Multi); Aortic valve stenosis, etiology of cardiac valve disease unspecified Start: 03-14-2024 End: 03-14-2024 Subsequent hospital visit by physician [facility] Breast Ultrasound [address] [facility] Comment on above: Malignant neoplasm o f lower-outer quadrant of right breast of female, estrogen receptor negative (Multi) Malignant neoplasm o f lower-outer quadrant of right female breast (Multi); Estrogen receptor negative status (ER-) Start: 03-08-2024 End: 03-08-2024 Office outpatient new 60 minutes Cindy Bae MD Work Phone: [facility] Comment on above: Cardiomyopathy, isch emic (Primary Dx); Chronic diastolic heart failure (Multi); Aortic valve stenosis, etiology of cardiac valve disease unspecified; Aneurysm of ascending aorta without rupture ([facility]-HCC); Other cardiomyopathy (Multi) Start: 03-08-2024 End: 03-08-2024 Office outpatient visit 40 minutes Marcelo Davey MD Work Phone: [facility] Comment on above: Aortic valve stenosi s, etiology of cardiac valve disease unspecified (Primary Dx); Carcinoma of breast, estrogen receptor positive, stage 3, unspecified laterality (Multi); Other specified disorders of breast; Encounter for monitoring cardiotoxic drug therapy; Cardiotoxicity (Multi) Start: 03-02-2024 End: 03-02-2024 Subsequent hospital visit by physician Gokul Navarrete MD Work Phone: [facility] Comment on above: Carcinoma of breast, estrogen receptor positive, stage 3, unspecified laterality (Multi) Start: 02-23-2024 End: 02-23-2024 Subsequent hospital visit by physician Frankie Grew[address] [facility] Comment on above: Arrived Carcinoma of breast, estrogen receptor positive, stage 3, unspecified laterality (Multi) Start: 02-22-2024 End: 02-22-2024 Subsequent hospital visit by physician Frankie Grande 5 [facility] Comment on above: Malignant neoplasm o f lower-outer quadrant of right breast of female, estrogen receptor negative (Multi) (Primary Dx); Abnormal mammogram Start: 02-11-2024 End: 02-11-2024 Subsequent hospital visit by physician Mando Ureña [facility] Comment on above: Carcinoma of breast, estrogen receptor positive, stage 3, unspecified laterality (Multi); Cardiotoxicity (Multi) Start: 02-11-2024 End: 02-11-2024 ambulatory MARCELO Ibrahim DAVEY [facility] Start: 02-09-2024 End: 02-09-2024 Subsequent hospital visit by physician Frankie Burger Breast Ultrasound 5 [facility] Comment on above: Invasive ductal carc inoma of breast, female, right (Multi); Malignant neoplasm of overlapping sites of right female breast (Multi) Start: 02-09-2024 End: 02-09-2024 Subsequent hospital visit by physician Frankie Grande 5 [facility] Comment on above: Invasive ductal carc inoma of breast, female, right (Multi); Malignant neoplasm of overlapping sites of right female breast (Multi) Start: 02-09-2024 End: 02-09-2024 Office outpatient new 60 minutes Malgorzata Clifford MD Work Phone: [facility] Comment on above: Abnormal mammogram Carcinoma of breast, estrogen receptor positive, stage 3, unspecified laterality (Multi) (Primary Dx); Other specified disorders of breast; Encounter for monitoring cardiotoxic drug therapy; Cardiotoxicity (Multi); Aortic valve disorder Start: 02-07-2024 End: 02-07-2024 Subsequent hospital visit by physician Rad External Film [facility] Comment on above: Arrived Start: 01-24-2024 End: 01-24-[address] Daniela Fallon Work Phone: [facility] Work Phone: Start: 01-24-2024 End: 01-24-[address] Daniela Fallon Work Phone: [facility] Work Phone: Start: 01-11-[address] Mandi Fallon Work Phone: [facility] Start: 01-04-2024 End: 01-04-[address] Daniela Fallon Work Phone: [facility] Work Phone: Start: 12-24-2023 End: 12-24-2023 ambulatory RUEL LOZANO MD Facility:B Start: 12-24-2023 End: 12-24-2023 Patient encounter procedure RUEL LOZANO MD [facility] Start: 12-20-2023 Non-patient / Non-visit Dr. Cedric Fallon Work Phone: [facility] Start: 12-08-2023 End: 12-08-[address] Daniela Fallon Work Phone: [facility]Labor[facility], Specimen Work Phone: Start: 12-08-2023 End: 12-08-[address] Daniela Fallon Work Phone: [facility] Work Phone: Start: 12-02-2023 End: 12-02-2023 Office outpatient new 60 minutes Ruel Lozano MD Work Phone: [facility] Comment on above: Aortic valve insuffi ciency, etiology of cardiac valve disease unspecified; Ascending aorta dilation (CMS/HCC); Coronary artery disease involving [place] coronary artery of [place] heart with other form of angina pectoris (CMS/HCC) Start: 11-25-2023 End: 11-25-[address] Daniela Fallon Work Phone: [facility] Work Phone: Start: 11-25-2023 End: 11-25-[address] Daniela Fallon Work Phone: [facility] Work Phone: Start: 11-24-2023 End: 11-24-[address] Daniela Fallon Work Phone: [facility] Work Phone: Start: 11-04-2023 End: 11-04-2023 ambulatory REMI DESAI MD Facility:B Start: 11-04-2023 End: 11-04-2023 Patient encounter procedure REMI DESAI MD [facility] Start: 10-29-2023 End: 10-29-2023 ambulatory REMI DESAI MD Facility:A Start: 10-26-[address] TURNER MD Facility:A Start: 10-26-2023 End: 10-26-[address] TURNER MD Facility:B Start: 10-26-2023 End: 10-26-[address] TURNER MD [facility] Start: 08-13-2023 End: 08-13-[address] Daniela Fallon Work Phone: [facility] Work Phone: Start: 08-13-2023 End: 08-13-[address] Daniela Fallon Work Phone: [facility] Work Phone: Start: 07-05-2023 End: 07-05-2023 ambulatory JUAN F MARCOS MD Facility:A Start: 07-05-2023 End: 07-05-2023 SAME DAY STAY JUAN F MARCOS MD [facility] Start: 05-27-2023 End: 05-27-2023 ambulatory REMI DESAI MD Facility:B Start: 05-27-2023 End: 05-27-2023 Patient encounter procedure REMI DESAI MD [facility] Start: 12-25-2022 End: 12-25-[address] Daniela Fallon Work Phone: [facility] Work Phone: Start: 12-25-2022 End: 12-25-[address] Daniela Fallon Work Phone: [facility] Start: 11-12-2022 End: 11-12-2022 ambulatory DANIELA FALLON Facility:[facility] Start: 11-12-2022 End: 11-12-2022 Subsequent hospital visit by physician Ginny [facility] Work Phone: Radiology Comment on above: Pain of left middle finger [M79.645] Start: 11-12-2022 End: 11-12-2022 Patient encounter procedure Keyanna BhaktaTeddy PRASAD Work Phone: [facility] Comment on above: Pain of left middle finger (Primary Dx) Start: 10-27-2022 End: 10-27-[address] Daniela Fallon Work Phone: [facility] Start: 10-22-2022 End: 10-22-2022 Patient encounter procedure JOCELINE TINEO PA-C [facility] Start: 10-01-2022 End: 10-01-2022 Patient encounter procedure JOCELINE TINEO PA-C [facility] Start: 09-15-2022 End: 09-15-[address] Daniela Fallon Work Phone: [facility] Start: 08-28-[address] Kd Fallon Work Phone: [facility] Start: 07-07-2022 End: 07-07-[address] Daniela Fallon Work Phone: [facility] Work Phone: Start: 07-07-2022 End: 07-07-[address] Daniela Fallon Work Phone: [facility] Start: 05-27-2022 End: 05-27-[address] Daniela Fallon Work Phone: [facility] Start: 02-24-2022 End: 02-24-[address] Daniela Fallon Work Phone: [facility] Start: 11-24-2021 End: 11-24-[address] Daniela Fallon Work Phone: [facility] Start: 09-26-2021 End: 09-26-2021 Patient encounter procedure JOCELINE TINEO PA-C [facility] Start: 08-18-2021 End: 08-18-[address] Daniela Fallon Work Phone: [facility] Procedures Date Procedure Procedure Detail Performing Clinician Start: 04-18-2025 CT of head without contrast Dr. Daniela Fallon MD Work Phone: Start: 04-18-[address] Daniela Fallon MD Work Phone: Start: 02-06-[address] Daniela Flalon MD Work Phone: Start: 02-06-[address] Daniela bonds MD Work Phone: Comment on above: The atypical pANCA pattern has been obse rved in asignificant percentage of patients with ulcerative colitis,primary sclerosing cholangitis and autoimmune hepatitis.Performed at: [address] [id number] Director: Lizandro Borrego PhD, Phone: [phone] Start: 02-06-2025 Antibody to centromere measurement Dr. Daniela Fallon MD Work Phone: Start: 02-06-2025 Antibody to extractable nuclear antigen measurement Dr. Daniela Fallon MD Work Phone: Start: 02-06-2025 Antibody to MAYDA-[address] Daniela Fallon MD Work Phone: Start: 02-06-2025 Antibody to lupus La protein measurement Dr. Daniela Fallon MD Work Phone: Start: 02-06-2025 Antibody to SS-A measurement Dr. Daniela Fallon MD Work Phone: Start: 02-06-[address] Daniela damico MD Work Phone: Start: 02-06-2025 [employer] antibody measurement Dr. Daniela damico MD Work Phone: Start: 12-15-[address] Daniela Fallon MD Work Phone: Start: 12-13-[address] Daniela Fallon MD Work Phone: Start: 12-12-2024 Measurement of renal function Dr. Daniela Fallon MD Work Phone: Comment on above: GFR Calc Start: 12-10-[address] Daniela Fallon MD Work Phone: Start: 12-08-2024 End: 12-08-2024 Urnls dip stick/tablet reagent auto microscopy Dr. Daniela Fallon MD Work Phone: Start: 12-08-2024 X-ray of chest, PA and lateral views Dr. Daniela Fallon MD Work Phone: Start: 12-08-2024 Assay of phosphorus inorganic Dr. Daniela Fallon MD Work Phone: Start: 12-08-2024 Computed tomography of abdomen and pelvis with intravenous contrast Dr. Daniela Fallon MD Work Phone: Start: 12-08-[address] Daniela Fallon MD Work Phone: Start: 12-08-[address] Daniela Fallon MD Work Phone: Start: 12-08-[address] [place] parasites identification [address]. Daniela Fallon MD Work Phone: Start: 12-08-2024 SARS-CoV-2, Influenza & RSV (PCR) Dr. Daniela Fallon MD Work Phone: Start: 10-26-[address] attenuation skull base mid-thigh Marcelo Davey MD Work Phone: Start: 09-27-2024 Ecg routine ecg w/least 12 lds trcg only w/o i&r Cindy Bae MD Work Phone: Start: 09-24-2024 CT angiography of chest with contrast Dr. Daniela Fallon MD Work Phone: Start: 09-20-2024 Us breast uni real time with image limited Marcelo Davey MD Work Phone: Start: 09-20-2024 End: 09-20-2024 Digital breast tomosynthesis unilateral Marcelo Davey MD Work Phone: Start: 08-09-2024 Renal function panel Awa Dang MOTION PICTURE PROJECTIONIST-C TILE AND MARBLE INSTALLER Work Phone: Start: 08-08-2024 Renal function panel Daniela Adames Val adams MOTION PICTURE PROJECTIONIST-CUSTOM STOCK MAKER Work Phone: Start: 08-08-2024 Glucose quantitative blood xcpt reagent strip Ruel Lozano MD Work Phone: Start: 08-08-2024 End: 08-08-2024 Renal function panel Awa Dang MOTION PICTURE PROJECTIONIST-C TILE AND MARBLE INSTALLER Work Phone: Start: 08-08-2024 PULSE OXIMETRY, SPOT Awa Dang MOTION PICTURE PROJECTIONIST-C TILE AND MARBLE INSTALLER Work Phone: Start: 08-08-2024 Glucose quantitative blood xcpt reagent strip Ruel Lozano MD Work Phone: Start: 08-08-2024 Radiologic exam swallow function contrast study Awa Dang MOTION PICTURE PROJECTIONIST-CUSTOM STOCK MAKER Work Phone: Start: 08-08-2024 PULSE OXIMETRY, SPOT Awa C Zeager MOTION PICTURE PROJECTIONIST-C TILE AND MARBLE INSTALLER Work Phone: Start: 08-08-2024 Glucose quantitative blood xcpt reagent strip Ruel Lozano MD Work Phone: Start: 08-08-2024 Glucose quantitative blood xcpt reagent strip Ruel Lozano MD Work Phone: Start: 08-08-2024 PULSE OXIMETRY, SPOT Awa C Zeager MOTION PICTURE PROJECTIONIST-C TILE AND MARBLE INSTALLER Work Phone: Start: 08-08-2024 Glucose quantitative blood xcpt reagent strip Ruel Lozano MD Work Phone: Start: 08-08-2024 PULSE OXIMETRY, SPOT Awa C Zeager MOTION PICTURE PROJECTIONIST-C TILE AND MARBLE INSTALLER Work Phone: Start: 08-07-2024 PULSE OXIMETRY, SPOT Awa C Zeager MOTION PICTURE PROJECTIONIST-C TILE AND MARBLE INSTALLER Work Phone: Start: 08-07-2024 Glucose quantitative blood xcpt reagent strip Ruel Lozano MD Work Phone: Start: 08-07-2024 PULSE OXIMETRY, SPOT Awa C Zeager MOTION PICTURE PROJECTIONIST-C TILE AND MARBLE INSTALLER Work Phone: Start: 08-07-2024 Renal function panel Awa C Zeager MOTION PICTURE PROJECTIONIST-C TILE AND MARBLE INSTALLER Work Phone: Start: 08-07-2024 Echo tthrc r-t 2d w/wom-mode compl spec&colr d Daniela Campbell MOTION PICTURE PROJECTIONIST-CUSTOM STOCK MAKER Work Phone: Start: 08-07-2024 Glucose quantitative blood xcpt reagent strip Ruel Lozano MD Work Phone: Start: 08-07-2024 PULSE OXIMETRY, SPOT Awa C Zeager MOTION PICTURE PROJECTIONIST-C TILE AND MARBLE INSTALLER Work Phone: Start: 08-07-2024 Glucose quantitative blood xcpt reagent strip Ruel Lozano MD Work Phone: Start: 08-07-2024 PULSE OXIMETRY, SPOT Awa C Zeager MOTION PICTURE PROJECTIONIST-C TILE AND MARBLE INSTALLER Work Phone: Start: 08-07-2024 Renal function panel Awa C Zeager MOTION PICTURE PROJECTIONIST-C TILE AND MARBLE INSTALLER Work Phone: Start: 08-07-2024 Radiologic exam chest single view Awa Zhou Zeager MOTION PICTURE PROJECTIONIST-CUSTOM STOCK MAKER Work Phone: Start: 08-07-2024 PULSE OXIMETRY, SPOT Awa C Zeager MOTION PICTURE PROJECTIONIST-C TILE AND MARBLE INSTALLER Work Phone: Start: 08-07-2024 Glucose quantitative blood xcpt reagent strip Ruel Lozano MD Work Phone: Start: 08-07-2024 PULSE OXIMETRY, SPOT Awa C Zeager MOTION PICTURE PROJECTIONIST-C TILE AND MARBLE INSTALLER Work Phone: Start: 08-06-2024 PULSE OXIMETRY, SPOT Awa C Zeager MOTION PICTURE PROJECTIONIST-C TILE AND MARBLE INSTALLER Work Phone: Start: 08-06-2024 AIRWAY CLEARANCE TECHNIQUES Awa C Zeager MOTION PICTURE PROJECTIONIST-CUSTOM STOCK MAKER Work Phone: Start: 08-06-2024 Glucose quantitative blood xcpt reagent strip Ruel Lozano MD Work Phone: Start: 08-06-2024 Glucose quantitative blood xcpt reagent strip Ruel Lozano MD Work Phone: Start: 08-06-2024 Glucose quantitative blood xcpt reagent strip Ruel Lozano MD Work Phone: Start: 08-06-2024 Renal function panel Awa Epperson Zeager MOTION PICTURE PROJECTIONIST-C TILE AND MARBLE INSTALLER Work Phone: Start: 08-06-2024 Radiologic exam chest 2 views Daniela Barrowduane Campbell MOTION PICTURE PROJECTIONIST-CUSTOM STOCK MAKER Work Phone: Start: 08-06-2024 PULSE OXIMETRY, SPOT Awa C Zeager MOTION PICTURE PROJECTIONIST-C TILE AND MARBLE INSTALLER Work Phone: Start: 08-06-2024 PULSE OXIMETRY, SPOT Awa C Zeager MOTION PICTURE PROJECTIONIST-C TILE AND MARBLE INSTALLER Work Phone: Start: 08-05-2024 Glucose quantitative blood xcpt reagent strip Ruel Lozano MD Work Phone: Start: 08-05-2024 PULSE OXIMETRY, SPOT Awa C Zeager MOTION PICTURE PROJECTIONIST-C TILE AND MARBLE INSTALLER Work Phone: Start: 08-05-2024 AIRWAY CLEARANCE TECHNIQUES Awa C Zeager MOTION PICTURE PROJECTIONIST-CUSTOM STOCK MAKER Work Phone: Start: 08-05-2024 Glucose quantitative blood xcpt reagent strip Ruel Lozano MD Work Phone: Start: 08-05-2024 PULSE OXIMETRY, SPOT Awa C Zeager MOTION PICTURE PROJECTIONIST-C TILE AND MARBLE INSTALLER Work Phone: Start: 08-05-2024 Glucose quantitative blood xcpt reagent strip Ruel Lozano MD Work Phone: Start: 08-05-2024 PULSE OXIMETRY, SPOT Awa C Zeager MOTION PICTURE PROJECTIONIST-C TILE AND MARBLE INSTALLER Work Phone: Start: 08-05-2024 PULSE OXIMETRY, SPOT Awa C Zeager MOTION PICTURE PROJECTIONIST-C TILE AND MARBLE INSTALLER Work Phone: Start: 08-05-2024 AIRWAY CLEARANCE TECHNIQUES Awa C Zeager MOTION PICTURE PROJECTIONIST-CUSTOM STOCK MAKER Work Phone: Start: 08-05-2024 Renal function panel Awa C Zeager MOTION PICTURE PROJECTIONIST-C TILE AND MARBLE INSTALLER Work Phone: Start: 08-05-2024 Radiologic exam chest single view Awa C Zeager MOTION PICTURE PROJECTIONIST-CUSTOM STOCK MAKER Work Phone: Start: 08-05-2024 PULSE OXIMETRY, SPOT Awa C Zeager MOTION PICTURE PROJECTIONIST-C TILE AND MARBLE INSTALLER Work Phone: Start: 08-05-2024 PULSE OXIMETRY, SPOT Awa C Zeager MOTION PICTURE PROJECTIONIST-C TILE AND MARBLE INSTALLER Work Phone: Start: 08-04-2024 Glucose quantitative blood xcpt reagent strip Ruel Lozano MD Work Phone: Start: 08-04-2024 Glucose quantitative blood xcpt reagent strip Ruel Lozano MD Work Phone: Start: 08-04-2024 PULSE OXIMETRY, SPOT Awa C Zeager MOTION PICTURE PROJECTIONIST-C TILE AND MARBLE INSTALLER Work Phone: Start: 08-04-2024 AIRWAY CLEARANCE TECHNIQUES Awa Zhou Laurence MOTION PICTURE PROJECTIONIST-CUSTOM STOCK MAKER Work Phone: Start: 08-04-2024 PULSE OXIMETRY, SPOT Awa Epperson Laurence MOTION PICTURE PROJECTIONIST-C TILE AND MARBLE INSTALLER Work Phone: Start: 08-04-2024 Glucose quantitative blood xcpt reagent strip Ruel Lozano MD Work Phone: Start: 08-04-2024 Glucose quantitative blood xcpt reagent strip Ruel Lozano MD Work Phone: Start: 08-04-2024 Blood typing serologic rh (d) Kerry R Head MOTION PICTURE PROJECTIONIST-CUSTOM STOCK MAKER Work Phone: Start: 08-04-2024 Glucose quantitative blood xcpt reagent strip Ruel Lozano MD Work Phone: Start: 08-04-2024 AIRWAY CLEARANCE TECHNIQUES Awa Zhou Laurence MOTION PICTURE PROJECTIONIST-CUSTOM STOCK MAKER Work Phone: Start: 08-04-2024 Glucose quantitative blood xcpt reagent strip Ruel Lozano MD Work Phone: Start: 08-04-2024 Radiologic exam chest single view Awa Dang MOTION PICTURE PROJECTIONIST-CUSTOM STOCK MAKER Work Phone: Start: 08-04-2024 Renal function panel Maggie Hanna MOTION PICTURE PROJECTIONIST-CUSTOM STOCK MAKER Work Phone: Start: 08-04-2024 Glucose quantitative blood xcpt reagent strip Ruel Lozano MD Work Phone: Start: 08-03-2024 Glucose quantitative blood xcpt reagent strip Ruel Lozano MD Work Phone: Start: 08-03-2024 Glucose quantitative blood xcpt reagent strip Ruel Lozano MD Work Phone: Start: 08-03-2024 Chloride bld Maggie Hanna MOTION PICTURE PROJECTIONIST-CUSTOM STOCK MAKER Work Phone: Start: 08-03-2024 Glucose quantitative blood xcpt reagent strip Ruel Lozano MD Work Phone: Start: 08-03-2024 Radiologic exam abdomen 1 view Maggie D Bouchahine MOTION PICTURE PROJECTIONIST-CUSTOM STOCK MAKER Work Phone: Start: 08-03-2024 Radiologic exam chest single view Awa Dang MOTION PICTURE PROJECTIONIST-CUSTOM STOCK MAKER Work Phone: Start: 08-03-2024 Glucose quantitative blood xcpt reagent strip Ruel Lozano MD Work Phone: Start: 08-03-2024 Chloride louisa dockery MD Work Phone: Start: 08-03-2024 End: 08-03-2024 Renal function panel Maggie Sloanahine MOTION PICTURE PROJECTIONIST-CUSTOM STOCK MAKER Work Phone: Start: 08-03-2024 Glucose quantitative blood xcpt reagent strip Ruel Lozano MD Work Phone: Start: 08-02-2024 Glucose quantitative blood xcpt reagent strip Ruel Lozano MD Work Phone: Start: 08-02-2024 End: 08-02-2024 Chloride bld Maggie D Bouchahine MOTION PICTURE PROJECTIONIST-CUSTOM STOCK MAKER Work Phone: Start: 08-02-2024 Radiologic exam chest single view Raquel Jurado PA-C Work Phone: Start: 08-02-2024 End: 08-02-2024 Chloride louisa dockery MD Work Phone: Start: 08-02-2024 End: 08-02-2024 Chloride bld Maggie D Bouchahine MOTION PICTURE PROJECTIONIST-CUSTOM STOCK MAKER Work Phone: Start: 08-02-2024 Chloride bld Maggie D Bouchahine MOTION PICTURE PROJECTIONIST-CUSTOM STOCK MAKER Work Phone: Start: 08-02-2024 End: 08-02-2024 Chloride bld Maggie D Bouchahine MOTION PICTURE PROJECTIONIST-CUSTOM STOCK MAKER Work Phone: Start: 08-02-2024 End: 08-02-2024 Chloride louisa dockery MD Work Phone: Start: 08-02-2024 Radiologic exam chest single view Robert Herring MD Work Phone: Start: 08-02-2024 Ecg routine ecg w/least 12 lds trcg only w/o i&r Maggie D Bouchahine MOTION PICTURE PROJECTIONIST-CUSTOM STOCK MAKER Work Phone: Start: 08-02-2024 End: 08-02-2024 Renal function panel Robert angel MD Work Phone: Start: 08-01-2024 EXTUBATION Isaac Vicente MD Work Phone: Start: 08-01-2024 Chloride bld Maggie D Bouchahine MOTION PICTURE PROJECTIONIST-CUSTOM STOCK MAKER Work Phone: Start: 08-01-2024 Chloride bld Maggie D Bouchahine MOTION PICTURE PROJECTIONIST-CUSTOM STOCK MAKER Work Phone: Start: 08-01-2024 Glucose quantitative blood xcpt reagent strip Ruel Lozano MD Work Phone: Start: 08-01-2024 End: 08-01-2024 Chloride bld Maggie D Bouchahine MOTION PICTURE PROJECTIONIST-CUSTOM STOCK MAKER Work Phone: Start: 08-01-2024 Radiologic exam chest single view Maggie D Bouchahine MOTION PICTURE PROJECTIONIST-CUSTOM STOCK MAKER Work Phone: Start: 08-01-2024 Tamera-px dev eval & prog sing/dual/multi lead dfb Maggie D Bouchahine MOTION PICTURE PROJECTIONIST-CUSTOM STOCK MAKER Work Phone: Start: 08-01-2024 End: 08-01-2024 Chloride bld Maggie D Bouchahine MOTION PICTURE PROJECTIONIST-CUSTOM STOCK MAKER Work Phone: Start: 08-01-2024 PULSE OXIMETRY, CONTINUOUS Maggie D Bouchahine MOTION PICTURE PROJECTIONIST-CUSTOM STOCK MAKER Work Phone: Start: 08-01-2024 End: 08-01-2024 Coagulation time activated Interface Unspecifiedprovider Work Phone: Start: 08-01-2024 End: 08-01-2024 Coagulation time activated Interface Unspecifiedprovider Work Phone: Start: 08-01-2024 End: 08-01-2024 TRANSFUSE RED BLOOD CELLS Erik Kumar Start: 08-01-2024 End: 08-01-2024 Coagulation time activated Interface Unspecifiedprovider Work Phone: Start: 08-01-2024 PREPARE PLASMA Leticia Pressley CAA Work Phone: Start: 08-01-2024 PREPARE PLATELETS Leticia Dockery Lapmeagan CAA Work Phone: Start: 08-01-2024 End: 08-01-2024 Coagulation time activated Interface Unspecifiedprovider Work Phone: Start: 08-01-2024 Tamera-px dev eval & prog sing/dual/multi lead dfb Damon Khan MD Work Phone: Start: 08-01-2024 End: 08-01-2024 Coagulation time activated Interface Unspecifiedprovider Work Phone: Start: 08-01-2024 PREPARE RBC Leticia ROONEY Work Phone: Start: 08-01-2024 ANESTHESIA INTRAOPERATIVE JIM Tyrone Thomas MD Work Phone: Start: 08-01-2024 End: 08-01-2024 As-aort grf w/card byp f/aortic ds oth/thn dsj Ruel Lozano MD Work Phone: Start: 08-01-2024 End: 08-01-2024 Rplcmt prost aortic valve open xcp homogrf/stent Ruel Lozano MD Work Phone: Start: 08-01-2024 Blood typing serologic rh (d) Ruel Lozano MD Work Phone: Start: 07-26-2024 Duplex scan extracranial art compl bi study Mojairoiva Mendoza MOTION PICTURE PROJECTIONIST-CUSTOM STOCK MAKER Work Phone: Start: 07-17-2024 CARD ECHOCARDIOGRAM NON BILL OUTSIDE STUDY ONLY Ruel Lozano MD Work Phone: Start: 07-17-2024 CATH AND OR EP TEST NON BILL OUTSIDE STUDY ONLY Ruel Lozano MD Work Phone: Start: 07-03-2024 CARD ECHOCARDIOGRAM NON BILL OUTSIDE STUDY ONLY Ruel Lozano MD Work Phone: Start: 07-03-2024 CATH AND OR EP TEST NON BILL OUTSIDE STUDY ONLY Ruel Lozano MD Work Phone: Start: 05-29-2024 CATH AND OR EP TEST NON BILL OUTSIDE STUDY ONLY Ruel Lozano MD Work Phone: Start: 04-30-2024 Ct cervical spine w/o contrast material Tk Nicole MD Work Phone: Start: 04-30-2024 Comprehensive metabolic panel Tk Nicole MD Work Phone: Start: 03-14-2024 Diagnostic mammography computer-aided detcj uni Malgorzata Clifford MD Work Phone: Start: 03-14-2024 End: 03-14-2024 Perq breast loc device placemt each les us image Malgorzata Clifford MD Work Phone: Start: 03-08-2024 Ecg routine ecg w/least 12 lds trcg only w/o i&r Cindy Bae MD Work Phone: Start: 03-02-2024 Guidance for placement of CV catheter with port in Chest Marcelo Davey MD Work Phone: Start: 03-02-2024 PULSE OXIMETRY, SPOT Jamison Leon APRN-CUSTOM STOCK MAKER, DNP Work Phone: Start: 02-23-2024 Bone &/joint imaging whole body Marcelo Davey MD Work Phone: Start: 02-22-2024 Bx breast w/device 1st lesion ultrasound guid Malgorzata Clifford MD Work Phone: Start: 02-11-2024 TRANSTHORACIC ECHO (TTE) LIMITED MARCELO DAVEY Start: 02-09-2024 Ultrasound elastography ea addl taget lesion Malgorzata Clifford MD Work Phone: Start: 02-09-2024 End: 02-09-2024 Diagnostic mammography computer-aided detcj bi Malgorzata Clifford MD Work Phone: Start: 01-24-2024 Computerized axial tomography of cervical spine with contrast Dr. Daniela Fallon Work Phone: Start: 01-24-2024 CT of thoracic spine with contrast Dr. Daniela Fallon Work Phone: Start: 01-11-2024 Positron emission tomography with computed tomography Dr. Daniela Fallon Work Phone: Start: 11-29-2023 History of coronary artery bypass grafting Status post coronary artery bypass grafting Ruel Lozano MD Work Phone: Start: 11-25-[address] Daniela mchugh Work Phone: Start: 11-25-[address] Daniela Fallon Work Phone: Start: 05-27-[address] CLAROS MD Comment on above: Summary: 1. Left ventricle: The cavity size is normal. Wall thickness is mildly increased. Basal Septal Left Ventricular Hypertrophy Mild Mid Cavitary Obstruction Present Systolic function is normal. The estimated ejection fraction is 55-60%. Wall motion is normal; there are no regional wall motion abnormalities. Grade II diastolic dysfunction. 2. Ventricular septum: Thickness is severely increased. at basal septum 2.1cm 3. Aortic valve: A bioprosthetic valve is present. Cusp separation is reduced. Concerining for aortic valve stenosis. There is mild regurgitation. The mean systolic gradient is 22 mm Hg. The LVOT to aortic valve VTI ratio is 0.28. The valve area by VTI is 0.8 cm . AT most likely >100. 4. Ascending aorta: The proximal ascending aorta is moderately dilated and 45.0 mm diameter. 5. Mitral valve: The annulus is mildly to moderately calcified. 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 Left atrium: The atrium is mildly dilated. 7. Right ventricle: Systolic function is mildly reduced. The RV systolic pressure by Doppler is 35 mm Hg. 8. Right atrium: The estimated right atrial pressure is 3 mm Hg. Recommendations: Suggest JIM. Start: 11-12-2022 Radex fingr minimum 2 views Keyanna Sanchez APRN.CUSTOM STOCK MAKER Work Phone: Start: 10-22-2022 Cardiovascular stress test using pharmacologic stress agent REMI DESAI MD Start: 10-01-2022 Echocardiography REMI DESAI MD Comment on above: Summary: 1. Left ventricle: The cavity size [...] hypertrophy is noted. Consider appropriate differential diagnosis. Start: 05-27-2017 Lipid 1996 panel - Serum or Plasma Rad Film Start: 10-30-2016 Mammography Keyanna Sanchez APRN.CUSTOM STOCK MAKER Work Phone: Start: 10-18-2011 Cardiac catheterization JOCELINE TINEO PA-C Comment on above: 03-30-11; 09-23-10 ptca/stent to follow; Start: 10-18-2010 Implantable defibrillator, device (physical object) JOCELINE TINEO PA-C Comment on above: FINAL DEVICE SETTINGS: Souleymane parameters are DDDR, 60-120 with an AV delay of 400/230 milliseconds. Tachy parameters are set as a two zone device. For heart rates between 140 to 180 beats per minute the patient will be treated with anti-tachy pacing, followed by 17 joules, followed by 26 joules, followed by 41 joules x 4. For heart rates above 180 the patient will be treated with 26 joules, followed by 36 joules, followed by 41 joules x 6. SYSTEM IMPLANTED: The pulse generator is a [employer] Teligen, model E110, serial #[id number]. The RA lead is a Guidant, model 4470, serial #[id number]. The RV lead is a Guidant, model 0184, serial #[id number]. PROCEDURES PERFORMED: Dual chamber ICD implantation. 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 PROCEDURE(S) PERFORMED: PERCUTANEOUS TRANSLUMINAL CORONARY ANGIOPLASTY AND STENT OF THE RIGHT CORONARY ARTERY Catheters: 6 Thai JR4, 3 DRC, and AR1 guide catheters were used; the AR1 guide catheter was the catheter that set best and was the one used for the procedure; 0.014 inch s'port, Whisper and soft Asahi wire were used. Soft Asahi wire was the wire that was successful in getting able to canalize the vessel for placement of the wire and also for delivery of balloons and stents. Balloons: 2.5 Jessamine balloon catheter; 2.75 NC Quantum balloon catheter and 2.5 X 15 mm length Promus stent Start: 10-18-2004 Coronary artery bypass graft operation planned [employer] PA-C Comment on above: In 2004 she had coronary artery bypass g rafting, including FULLER to the LAD, SVG to the diagonal and SVG to the obtuse marginal. Also an aortic valve replacement using a Bovine bioprosthesis was done. A descending thoracic aortic aneurysm repair was also performed. All three of these procedures were done during the same hospitalization at [facility] in 2004. The patient had intraoperative ventricular fibrillation, postoperative congestive heart failure with LVEF of 15%, requiring intra-aortic balloon pump. Start: 10-18-2004 Thoracic aortic aneurysm without rupture (disorder) [employer] PA-C Comment on above: A descending thoracic aortic aneurysm re pair was also performed. History of coronary artery bypass grafting Ruel Lozano MD Work Phone: History of coronary artery bypass grafting S/P CABG (coronary artery bypass graft) Ruel Lozano MD Work Phone: History of coronary artery bypass grafting Status post coronary artery bypass grafting Cindy Bae MD Work Phone: History of coronary artery bypass grafting History of coronary artery bypass graft x 3 Dr. Daniela Fallon MD Work Phone: Hysterectomy [facility] Repair of aortic ane urysm using bifurcation graft REMI DESAI MD Replacement of aorti c valve [employer] PA-C Comment on above: aortic valve replacement using a Bovine bioprosthesis was done Tonsillectomy [employer] PA- C Plan of Treatment Date Care Activity Detail Author Start: 2029 RSV Vaccine (1 - 1-dose 75+ series) RSV Vaccine (1 - 1-dose 75+ series) [facility] Start: 07-17-2026 Creatinine measurement Creatinine Level [facility] Start: 07-17-2026 Diabetes mellitus screening Diabetes Screening [facility] Start: 07-17-2026 Potassium measurement Potassium Level [facility] Start: 06-26-2026 Creatinine measurement Creatinine Level [facility] Start: 06-26-2026 Diabetes mellitus screening Diabetes Screening [facility] Start: 06-26-2026 Potassium measurement Potassium Level [facility] Start: 06-05-2026 Creatinine measurement Creatinine Level [facility] Start: 06-05-2026 Diabetes mellitus screening Diabetes Screening [facility] Start: 06-05-2026 Potassium measurement Potassium Level [facility] Start: 05-15-2026 Creatinine measurement Creatinine Level [facility] Start: 05-15-2026 Diabetes mellitus screening Diabetes Screening [facility] Start: 05-15-2026 Potassium measurement Potassium Level [facility] Start: 04-26-2026 Echocardiography Echocardiogram [facility] Start: 04-24-2026 Creatinine measurement Creatinine Level [facility] Start: 04-24-2026 Diabetes mellitus screening Diabetes Screening [facility] Start: 04-24-2026 Potassium measurement Potassium Level [facility] Start: 03-08-2026 Creatinine measurement Creatinine Level [facility] Start: 03-08-2026 Potassium measurement Potassium Level [facility] Start: 01-29-2026 Creatinine measurement Creatinine Level [facility] Start: 01-29-2026 Potassium measurement Potassium Level [facility] Start: 01-01-2026 Creatinine measurement Creatinine Level [facility] Start: 01-01-2026 Potassium measurement Potassium Level [facility] Start: 10-09-2025 Creatinine measurement Creatinine Level [facility] Start: 10-09-2025 Potassium measurement Potassium Level [facility] Start: 09-20-2025 Screening for malignant neoplasm of breast Mammogram [facility] Start: 09-20-2025 End: 09-20-2025 ambulatory 09/20/2025 9:00 AM EST Infusion [facility] [address] [place] [id number] [facility] Start: 09-19-2025 End: 09-19-2026 Cancer Ag 27-29 [Units/volume] in Serum or Plasma Cancer Antigen 27-29 Lab Routine Malignant neoplasm of areola of breast in female, estrogen receptor negative, unspecified laterality (Multi) Expected: 09/19/2025, Expires: 09/19/2026 [facility] Work Phone: Comment on above: Expected: 09/19/2025, Expires: Start: 09-19-2025 End: 09-19-2026 CBC W Auto Differential panel - Blood CBC and Auto Differential Lab Routine Malignant neoplasm of areola of breast in female, estrogen receptor negative, unspecified laterality (Multi) Expected: 09/19/2025, Expires: 09/19/2026 [facility] Work Phone: Comment on above: Expected: 09/19/2025, Expires: Start: 09-19-2025 End: 09-19-2026 Comprehensive metabolic 2000 panel - Serum or Plasma Comprehensive Metabolic Panel Lab Routine Malignant neoplasm of areola of breast in female, estrogen receptor negative, unspecified laterality (Multi) Expected: 09/19/2025, Expires: 09/19/2026 [facility] Work Phone: Comment on above: Expected: 09/19/2025, Expires: Start: 09-19-2025 Echocardiography Echocardiogram [facility] Start: 09-19-2025 End: 09-19-2025 Patient encounter procedure 09/19/2025 11:00 AM EST Office Visit [facility] [address] [place] [id number] [place] [address] [place], [place] [id number] [facility] Start: 09-17-2025 End: 09-17-2025 ambulatory 09/17/2025 2:30 PM EST Infusion [facility] [address] [place] [id number] [facility] Start: 09-11-2025 End: 09-11-2025 Patient encounter procedure 09/11/2025 1:30 PM EST Appointment [facility] [address] [place] [address] [facility] Start: 09-11-2025 End: 09-11-2025 Patient encounter procedure 09/11/2025 10:45 AM EST Appointment [facility] [address] [place] [address] [facility] Start: 09-10-2025 End: 07-31-2026 CT Chest and Abdomen and Pelvis W contrast IV CT chest abdomen pelvis w IV contrast Imaging Routine Malignant neoplasm of lower-outer quadrant of right breast of female, estrogen receptor negative Encounter for antineoplastic chemotherapy Malignant neoplasm of areola of breast in female, estrogen receptor negative, unspecified laterality (Multi) Difficulty maintaining weight loss Expected: 09/10/2025, Expires: 07/31/2026 [facility] Work Phone: Comment on above: Expected: 09/10/2025, Expires: Start: 09-10-2025 End: 07-31-2026 CT Neck W contrast IV CT soft tissue neck w IV contrast Imaging Routine Malignant neoplasm of lower-outer quadrant of right breast of female, estrogen receptor negative Encounter for antineoplastic chemotherapy Malignant neoplasm of areola of breast in female, estrogen receptor negative, unspecified laterality (Multi) Difficulty maintaining weight loss Expected: 09/10/2025, Expires: 07/31/2026 [facility] Work Phone: Comment on above: Expected: 09/10/2025, Expires: Start: 08-29-2025 End: 08-29-2026 Cancer Ag 27-29 [Units/volume] in Serum or Plasma Cancer Antigen 27-29 Lab Routine Malignant neoplasm of areola of breast in female, estrogen receptor negative, unspecified laterality (Multi) Expected: 08/29/2025, Expires: 08/29/2026 [facility] Work Phone: Comment on above: Expected: 08/29/2025, Expires: Start: 08-29-2025 End: 08-29-2026 CBC W Auto Differential panel - Blood CBC and Auto Differential Lab Routine Malignant neoplasm of areola of breast in female, estrogen receptor negative, unspecified laterality (Multi) Expected: 08/29/2025, Expires: 08/29/2026 [facility] Service Area Work Phone: Comment on above: Expected: 08/29/2025, Expires: Start: 08-29-2025 End: 08-29-2026 Comprehensive metabolic 2000 panel - Serum or Plasma Comprehensive Metabolic Panel Lab Routine Malignant neoplasm of areola of breast in female, estrogen receptor negative, unspecified laterality (Multi) Expected: 08/29/2025, Expires: 08/29/2026 [facility] Work Phone: Comment on above: Expected: 08/29/2025, Expires: Start: 08-29-2025 End: 08-29-2025 ambulatory 08/29/2025 9:00 AM EST Infusion [facility] [address] [facility] [address] [place] [address] [facility] Start: 08-28-2025 End: 08-28-2025 ambulatory 08/28/2025 1:00 PM EST Infusion [facility] [address] [facility] [address] [place] [address] [facility] Start: 08-16-2025 Creatinine measurement Creatinine Level [facility] Start: 08-16-2025 Potassium measurement Potassium Level [facility] Start: 08-10-2025 End: 08-10-2025 ambulatory 08/10/2025 10:30 AM EDT Infusion [facility] [address] [place] [address] [facility] Start: 08-09-2025 End: 08-09-2026 Cancer Ag 27-29 [Units/volume] in Serum or Plasma Cancer Antigen 27-29 Lab Routine Malignant neoplasm of areola of breast in female, estrogen receptor negative, unspecified laterality Expected: 08/09/2025, Expires: 08/09/2026 [facility] Work Phone: Comment on above: Expected: 08/09/2025, Expires: Start: 08-09-2025 End: 08-09-2026 CBC W Auto Differential panel - Blood CBC and Auto Differential Lab Routine Malignant neoplasm of areola of breast in female, estrogen receptor negative, unspecified laterality Expected: 08/09/2025, Expires: 08/09/2026 [facility] Work Phone: Comment on above: Expected: 08/09/2025, Expires: Start: 08-09-2025 End: 08-09-2026 Comprehensive metabolic 2000 panel - Serum or Plasma Comprehensive Metabolic Panel Lab Routine Malignant neoplasm of areola of breast in female, estrogen receptor negative, unspecified laterality Expected: 08/09/2025, Expires: 08/09/2026 [facility] Work Phone: Comment on above: Expected: 08/09/2025, Expires: Start: 08-09-2025 Creatinine measurement [facility] Start: 08-09-2025 Potassium measurement [facility] Start: 08-09-2025 End: 08-09-2025 Patient encounter procedure [facility] Start: 08-08-2025 Diabetes mellitus screening [facility] Start: 08-08-2025 End: 08-08-2025 Patient encounter procedure 08/08/2025 8:00 AM EDT Office Visit [facility] [address] [facility] [address] [place] [address] Neli Cox, MOTION PICTURE PROJECTIONIST-CUSTOM STOCK MAKER [address] [place] [address] [facility] Start: 08-07-2025 Echocardiography Echocardiogram [facility] Start: 08-07-2025 [facility] Start: 08-07-2025 End: 08-07-2025 ambulatory 08/07/2025 1:00 PM EDT Infusion [facility] [address] [facility] [address] [place] [address] [facility] Start: 08-03-2025 End: 05-03-2027 US Heart Transthoracic Transthoracic Echo Limited Echocardiography Routine Encounter for monitoring cardiotoxic drug therapy Expected: 08/03/2025 (Approximate), Expires: 05/03/2027 [facility] Service Area Work Phone: Comment on above: Expected: 08/03/2025 (Approximate), Expi res: 05/03/2027 Start: 08-03-2025 End: 08-03-2025 Patient encounter procedure 08/03/2025 9:00 AM EDT Appointment [facility] [address] [address] [facility] Start: 08-02-2025 Diabetes mellitus screening Diabetes Screening [facility] Start: 08-01-2025 Creatinine measurement Creatinine Level [facility] Start: 08-01-2025 Hemoglobin A1c measurement [facility] Start: 08-01-2025 Potassium measurement Potassium Level [facility] Start: 07-31-2025 End: 07-31-2026 MR Brain WO and W contrast IV MR brain w and wo IV contrast Imaging STAT Malignant neoplasm of lower-outer quadrant of right breast of female, estrogen receptor negative Poor balance Abnormality of gait and mobility Expected: 07/31/2025, Expires: 07/31/2026 [facility] Work Phone: Comment on above: Expected: 07/31/2025, Expires: Start: 07-24-2025 Creatinine measurement Creatinine Level [facility] Start: 07-24-2025 Potassium measurement Potassium Level [facility] Start: 07-19-2025 End: 07-19-2026 Cancer Ag 27-29 [Units/volume] in Serum or Plasma Cancer Antigen 27-29 Lab Routine Malignant neoplasm of areola of breast in female, estrogen receptor negative, unspecified laterality Expected: 07/19/2025, Expires: 07/19/2026 [facility] Work Phone: Comment on above: Expected: 07/19/2025, Expires: Start: 07-19-2025 End: 07-19-2026 CBC W Auto Differential panel - Blood CBC and Auto Differential Lab Routine Malignant neoplasm of areola of breast in female, estrogen receptor negative, unspecified laterality Expected: 07/19/2025, Expires: 07/19/2026 [facility] Service Area Work Phone: Comment on above: Expected: 07/19/2025, Expires: Start: 07-19-2025 End: 07-19-2026 Comprehensive metabolic 2000 panel - Serum or Plasma Comprehensive Metabolic Panel Lab Routine Malignant neoplasm of areola of breast in female, estrogen receptor negative, unspecified laterality Expected: 07/19/2025, Expires: 07/19/2026 [facility] Work Phone: Comment on above: Expected: 07/19/2025, Expires: Start: 07-04-2025 End: 07-04-2025 Patient encounter procedure 07/04/2025 10:00 AM EDT Office Visit [facility] [address] [place] [phone] Vira Azul, MOTION PICTURE PROJECTIONIST-CUSTOM STOCK MAKER [address] [place], [place] [id number] [facility] Start: 06-28-2025 End: 06-28-2026 Cancer Ag 27-29 [Units/volume] in Serum or Plasma Cancer Antigen 27-29 Lab Routine Malignant neoplasm of areola of breast in female, estrogen receptor negative, unspecified laterality Expected: 06/28/2025, Expires: 06/28/2026 [facility] Work Phone: Comment on above: Expected: 06/28/2025, Expires: Start: 06-28-2025 End: 06-28-2026 CBC W Auto Differential panel - Blood CBC and Auto Differential Lab Routine Malignant neoplasm of areola of breast in female, estrogen receptor negative, unspecified laterality Expected: 06/28/2025, Expires: 06/28/2026 [facility] Work Phone: Comment on above: Expected: 06/28/2025, Expires: Start: 06-28-2025 End: 06-28-2026 Comprehensive metabolic 2000 panel - Serum or Plasma Comprehensive Metabolic Panel Lab Routine Malignant neoplasm of areola of breast in female, estrogen receptor negative, unspecified laterality Expected: 06/28/2025, Expires: 06/28/2026 [facility] Work Phone: Comment on above: Expected: 06/28/2025, Expires: Start: 06-28-2025 End: 06-28-2025 ambulatory 06/28/2025 9:00 AM EDT Infusion [facility] [address] [facility] [address] [place] [address] [facility] Start: 06-27-2025 End: 06-27-2025 Patient encounter procedure 06/27/2025 9:40 AM EDT Office Visit [facility] [address] [facility] [address] [place] [phone] [place] [address] [place], [place] [phone] [facility] Start: 06-26-2025 End: 06-26-2025 ambulatory 06/26/2025 3:00 PM EDT Infusion [facility] [address] [facility] [address] [place] [phone] [facility] Start: 06-23-2025 Creatinine measurement Creatinine Level [facility] Start: 06-23-2025 Potassium measurement Potassium Level [facility] Start: 06-21-2025 End: 05-16-2026 CT Chest and Abdomen and Pelvis W contrast IV [facility] Work Phone: Comment on above: Expected: 06/21/2025 (Approximate), Expi res: 05/16/2026 Once for 1 Occurrenc es starting 06/21/2025 until 06/21/2025 Start: 06-18-2025 Influenza vaccination [facility] Start: 06-08-2025 Creatinine measurement Creatinine Level [facility] Start: 06-08-2025 Potassium measurement Potassium Level [facility] Start: 06-06-2025 End: 06-06-2026 Cancer Ag 27-29 [Units/volume] in Serum or Plasma Cancer Antigen 27-29 Lab Routine Malignant neoplasm of areola of breast in female, estrogen receptor negative, unspecified laterality Expected: 06/06/2025, Expires: 06/06/2026 [facility] Work Phone: Comment on above: Expected: 06/06/2025, Expires: Start: 06-06-2025 End: 06-06-2026 CBC W Auto Differential panel - Blood CBC and Auto Differential Lab Routine Malignant neoplasm of areola of breast in female, estrogen receptor negative, unspecified laterality Expected: 06/06/2025, Expires: 06/06/2026 [facility] Service Area Work Phone: Comment on above: Expected: 06/06/2025, Expires: Start: 06-06-2025 End: 06-06-2026 Comprehensive metabolic 2000 panel - Serum or Plasma Comprehensive Metabolic Panel Lab Routine Malignant neoplasm of areola of breast in female, estrogen receptor negative, unspecified laterality Expected: 06/06/2025, Expires: 06/06/2026 [facility] Work Phone: Comment on above: Expected: 06/06/2025, Expires: Start: 05-23-2025 Creatinine measurement Creatinine Level [facility] Start: 05-23-2025 Potassium measurement Potassium Level [facility] Start: 05-17-2025 End: 05-17-2025 ambulatory 05/17/2025 9:00 AM EDT Infusion [facility] [address] [facility] [address] [place] [address] [facility] Start: 05-16-2025 End: 05-16-2025 Patient encounter procedure 05/16/2025 9:00 AM EDT Office Visit [facility] [address] [place] [phone] Neli Cox, MOTION PICTURE PROJECTIONIST-CUSTOM STOCK MAKER [address] [place] [address] [facility] Start: 05-15-2025 End: 05-15-2025 ambulatory 05/15/2025 2:30 PM EDT Infusion [facility] [address] [place] [address] [facility] Start: 05-03-2025 End: 05-03-2025 Patient encounter procedure 05/03/2025 9:30 AM EDT Office Visit [facility] [address] [place] [phone] Yany Page, MOTION PICTURE PROJECTIONIST-CUSTOM STOCK MAKER [address] Department of Medicine-Cardiovascular Medicine/[place] [address] [facility] Start: 04-30-2025 Creatinine measurement Creatinine Level [facility] Start: 04-30-2025 Potassium measurement Potassium Level [facility] Start: 04-25-2025 End: 04-25-2026 Cancer Ag 27-29 [Units/volume] in Serum or Plasma Cancer Antigen 27-29 Lab Routine Malignant neoplasm of areola of breast in female, estrogen receptor negative, unspecified laterality Expected: 04/25/2025, Expires: 04/25/2026 [facility] Service Area Work Phone: Comment on above: Expected: 04/25/2025, Expires: Start: 04-25-2025 End: 04-25-2026 CBC W Auto Differential panel - Blood CBC and Auto Differential Lab Routine Malignant neoplasm of areola of breast in female, estrogen receptor negative, unspecified laterality Expected: 04/25/2025, Expires: 04/25/2026 [facility] Work Phone: Comment on above: Expected: 04/25/2025, Expires: Start: 04-25-2025 End: 04-25-2026 Comprehensive metabolic 2000 panel - Serum or Plasma Comprehensive Metabolic Panel Lab Routine Malignant neoplasm of areola of breast in female, estrogen receptor negative, unspecified laterality Expected: 04/25/2025, Expires: 04/25/2026 [facility] Work Phone: Comment on above: Expected: 04/25/2025, Expires: Start: 04-25-2025 End: 04-25-2025 ambulatory 04/25/2025 9:00 AM EDT Infusion [facility] [address] [facility] [address] [place] [phone] [facility] Start: 04-24-2025 End: 04-24-2025 ambulatory 04/24/2025 1:30 PM EDT Infusion [facility] [address] [facility] [address] [place] [phone] [facility] Start: 04-19-2025 Creatinine measurement Creatinine Level [facility] Start: 04-19-2025 Potassium measurement Potassium Level [facility] Start: 04-18-2025 [facility] Start: 04-18-2025 End: 04-18-2025 Patient encounter procedure 04/18/2025 10:30 AM EDT Office Visit [facility] [address] [place] [phone] [place] [address] [place] [address] [facility] Start: 04-05-2025 End: 04-05-2025 Patient encounter procedure 04/05/2025 9:00 AM EDT Appointment [facility] [address] [place] [phone] [facility] Start: 04-04-2025 End: 04-04-2026 Cancer Ag 27-29 [Units/volume] in Serum or Plasma Cancer Antigen 27-29 Lab Routine Malignant neoplasm of areola of breast in female, estrogen receptor negative, unspecified laterality Expected: 04/04/2025, Expires: 04/04/2026 [facility] Work Phone: Comment on above: Expected: 04/04/2025, Expires: Start: 04-04-2025 End: 04-04-2026 CBC W Auto Differential panel - Blood CBC and Auto Differential Lab Routine Malignant neoplasm of areola of breast in female, estrogen receptor negative, unspecified laterality Expected: 04/04/2025, Expires: 04/04/2026 [facility] Work Phone: Comment on above: Expected: 04/04/2025, Expires: Start: 04-04-2025 End: 04-04-2026 Comprehensive metabolic 2000 panel - Serum or Plasma Comprehensive Metabolic Panel Lab Routine Malignant neoplasm of areola of breast in female, estrogen receptor negative, unspecified laterality Expected: 04/04/2025, Expires: 04/04/2026 [facility] Work Phone: Comment on above: Expected: 04/04/2025, Expires: Start: 04-04-2025 End: 04-04-2025 ambulatory 04/04/2025 9:00 AM EDT Infusion [facility] [address] [facility] [address] [place] [phone] [facility] Start: 04-03-2025 End: 04-03-2025 ambulatory 04/03/2025 10:00 AM EDT Infusion [facility] [address] [facility] [address] [place] [address] [facility] Start: 03-29-2025 Creatinine measurement Creatinine Level [facility] Start: 03-29-2025 Potassium measurement Potassium Level [facility] Start: 03-28-2025 End: 03-28-2025 Patient encounter procedure 03/28/2025 10:20 AM EDT Office Visit [facility] [address] [place] [phone] [place] [address] [place] [address] [facility] Start: 03-21-2025 End: 02-14-2026 CT Chest and Abdomen and Pelvis W contrast IV [facility] Work Phone: Comment on above: Expected: 03/21/2025 (Approximate), Expi res: 02/14/2026 Once for 1 Occurrenc es starting 03/21/2025 until 03/21/2025 Start: 03-17-2025 Echocardiography Echocardiogram [facility] Start: 03-14-2025 End: 03-14-2026 Cancer Ag 27-29 [Units/volume] in Serum or Plasma Cancer Antigen 27-29 Lab Routine Malignant neoplasm of areola of breast in female, estrogen receptor negative, unspecified laterality Expected: 03/14/2025, Expires: 03/14/2026 [facility] Work Phone: Comment on above: Expected: 03/14/2025, Expires: 6 Start: 03-14-2025 End: 03-14-2026 CBC W Auto Differential panel - Blood CBC and Auto Differential Lab Routine Malignant neoplasm of areola of breast in female, estrogen receptor negative, unspecified laterality Expected: 03/14/2025, Expires: 03/14/2026 [facility] Work Phone: Comment on above: Expected: 03/14/2025, Expires: Start: 03-14-2025 End: 03-14-2026 Comprehensive metabolic 2000 panel - Serum or Plasma Comprehensive Metabolic Panel Lab Routine Malignant neoplasm of areola of breast in female, estrogen receptor negative, unspecified laterality Expected: 03/14/2025, Expires: 03/14/2026 [facility] Work Phone: Comment on above: Expected: 03/14/2025, Expires: Start: 03-08-2025 End: 03-08-2025 Patient encounter procedure 03/08/2025 11:30 AM EDT Office Visit [facility] [address] [place] [address] Yany Page, MOTION PICTURE PROJECTIONIST-CUSTOM STOCK MAKER [address] [address] Department of Medicine-Cardiovascular Medicine/[place] [address] [facility] Start: 02-27-2025 End: 02-27-2025 Patient encounter procedure 02/27/2025 9:00 AM EDT Appointment [facility] [address] [place] [phone] [facility] Start: 02-21-2025 End: 02-21-2026 Cancer Ag 27-29 [Units/volume] in Serum or Plasma Cancer Antigen 27-29 Lab Routine Malignant neoplasm of areola of breast in female, estrogen receptor negative, unspecified laterality Expected: 02/21/2025, Expires: 02/21/2026 [facility] Work Phone: Comment on above: Expected: 02/21/2025, Expires: Start: 02-21-2025 End: 02-21-2026 CBC W Auto Differential panel - Blood CBC and Auto Differential Lab Routine Malignant neoplasm of areola of breast in female, estrogen receptor negative, unspecified laterality Expected: 02/21/2025, Expires: 02/21/2026 [facility] Work Phone: Comment on above: Expected: 02/21/2025, Expires: Start: 02-21-2025 End: 02-21-2026 Comprehensive metabolic 2000 panel - Serum or Plasma Comprehensive Metabolic Panel Lab Routine Malignant neoplasm of areola of breast in female, estrogen receptor negative, unspecified laterality Expected: 02/21/2025, Expires: 02/21/2026 [facility] Service Area Work Phone: Comment on above: Expected: 02/21/2025, Expires: Start: 02-14-2025 End: 02-14-2025 Patient encounter procedure 02/14/2025 10:30 AM EDT Office Visit [facility] [address] [place] [phone] Neli Cox, MOTION PICTURE PROJECTIONIST-CUSTOM STOCK MAKER [address] [place] [address] [facility] Start: 02-10-2025 Echocardiography Echocardiogram [facility] Start: 02-08-2025 Creatinine measurement Creatinine Level [facility] Start: 02-08-2025 Potassium measurement Potassium Level [facility] Start: 02-08-2025 Screening for malignant neoplasm of breast [facility] Start: 01-31-2025 End: 01-31-2025 ambulatory 01/31/2025 9:00 AM EDT Infusion [facility] [address] [place] [phone] [facility] Start: 01-29-2025 End: 01-29-2025 ambulatory 01/29/2025 10:00 AM EDT Infusion [facility] [address] [facility] [address] [place] [address] [facility] Start: 01-25-2025 End: 01-04-2027 Onco-Echo Limited (Strain And 3D) Onco-Echo Limited (Strain And 3D) Echocardiography Routine Malignant neoplasm of areola of breast in female, estrogen receptor negative, unspecified laterality Status post administration of cardiotoxic chemotherapy Aortic valve stenosis, etiology of cardiac valve disease unspecified Expected: 01/25/2025 (Approximate), Expires: 01/04/2027 [facility] Work Phone: Comment on above: Expected: 01/25/2025 (Approximate), Expi res: 01/04/2027 Start: 01-10-2025 End: 01-10-2025 ambulatory 01/10/2025 10:30 AM EDT Infusion [facility] [address] [facility] [address] [place] [address] [facility] Start: 01-09-2025 End: 01-09-2026 CBC W Auto Differential panel - Blood CBC and Auto Differential Lab Routine Malignant neoplasm of areola of breast in female, estrogen receptor negative, unspecified laterality Expected: 01/09/2025, Expires: 01/09/2026 [facility] Service Area Work Phone: Comment on above: Expected: 01/09/2025, Expires: Start: 01-09-2025 End: 01-09-2026 Comprehensive metabolic 2000 panel - Serum or Plasma Comprehensive Metabolic Panel Lab Routine Malignant neoplasm of areola of breast in female, estrogen receptor negative, unspecified laterality Expected: 01/09/2025, Expires: 01/09/2026 [facility] Work Phone: Comment on above: Expected: 01/09/2025, Expires: Start: 01-08-2025 End: 01-08-2025 ambulatory 01/08/2025 3:30 PM EDT Infusion [facility] [address] [facility] [address] [place] [address] [facility] Start: 12-30-2024 Creatinine measurement Creatinine Level [facility] Start: 12-30-2024 Potassium measurement Potassium Level [facility] Start: 12-21-2024 End: 12-21-2024 Patient encounter procedure [facility] Start: 12-19-2024 End: 12-19-2025 CBC W Auto Differential panel - Blood CBC and Auto Differential Lab Routine Carcinoma of breast, estrogen receptor positive, stage 3, unspecified laterality (Multi) Expected: 12/19/2024, Expires: 12/19/2025 [facility] Work Phone: Comment on above: Expected: 12/19/2024, Expires: Start: 12-19-2024 End: 12-19-2024 Patient encounter procedure 12/19/2024 9:00 AM EST Appointment [facility] [address] [place] [address] [facility] Start: 12-15-2024 Patient discharge [facility] Start: 12-15-2024 Administration of blood product [facility] Start: 12-14-2024 Incentive spirometry [facility] Start: 12-14-2024 [facility] Start: 12-13-2024 End: 12-13-2024 Patient encounter procedure 12/13/2024 10:40 AM EST Office Visit [facility] [address] [place] [address] [place] [address] [place] [address] [facility] Start: 12-13-2024 Administration of blood product [facility] Start: 12-13-2024 Administration of blood product [facility] Start: 12-11-2024 Venous catheter care management [facility] Start: 12-11-2024 Following clinical pathway protocol [facility] Start: 12-11-2024 Transfusion of blood product [facility] Start: 12-11-2024 End: 12-11-2024 Administration of blood product [facility] Start: 12-10-2024 [facility] Start: 12-10-2024 Consultation [facility] Start: 12-10-2024 [facility] Start: 12-10-2024 Admission procedure [facility] Start: 12-09-2024 End: 12-09-2024 [facility] Start: 12-09-2024 Care regimes management [facility] Start: 12-09-2024 Notification of physician [facility] Start: 12-09-2024 Application of intermittent pneumatic compression device [facility] Start: 12-09-2024 Assessment of risk of venous thromboembolism [facility] Start: 12-09-2024 Inhalation therapy procedure [facility] Start: 12-09-2024 Insertion of catheter into peripheral vein [facility] Start: 12-09-2024 Introduction of urinary catheter [facility] Start: 12-09-2024 Measuring intake and output [facility] Start: 12-09-2024 Oxygen therapy [facility] Start: 12-09-2024 Providing care according to standard [facility] Start: 12-09-2024 Provision of activity privileges [facility] Start: 12-09-2024 Referral to service [facility] Start: 12-09-2024 [facility] Start: 12-08-2024 Admission procedure [facility] Start: 11-28-2024 End: 11-28-2025 CBC W Auto Differential panel - Blood CBC and Auto Differential Lab Routine Carcinoma of breast, estrogen receptor positive, stage 3, unspecified laterality (Multi) Expected: 11/28/2024, Expires: 11/28/2025 [facility] Service Area Work Phone: Comment on above: Expected: 11/28/2024, Expires: Start: 11-28-2024 End: 11-28-2024 ambulatory 11/28/2024 1:00 PM EST Infusion [facility] [address] [facility] [address] [place] [address] [facility] Start: 11-28-2024 End: 11-28-2024 Patient encounter procedure 11/28/2024 9:00 AM EST Appointment [facility] [address] [facility] [address] [place] [address] [facility] Start: 11-24-2024 End: 11-24-2024 Patient encounter procedure 11/24/2024 10:00 AM EST Office Visit [facility] [place] [address] [place] [address] [place] [address] Department [place] [address] [facility] Start: 11-01-2024 End: 11-01-2024 Patient encounter procedure 11/01/2024 10:00 AM EST Office Visit [facility] [address] [place] [address] [place] [address] [place] [address] [facility] Start: 10-30-2024 End: 10-30-2024 ambulatory 10/30/2024 2:00 PM EST Infusion [facility] [address] [place] [address] [facility] Start: 10-12-2024 End: 10-12-2024 Patient encounter procedure [facility] Start: 10-09-2024 End: 10-09-2024 ambulatory 10/09/2024 10:30 AM EST Infusion [facility] [address] [place] [phone] [facility] Start: 10-04-2024 End: 10-04-2025 Hepatitis B virus core Ab [Presence] in Serum Hepatitis B Core Antibody, Total Lab Routine Carcinoma of breast, estrogen receptor positive, stage 3, unspecified laterality (Multi) Expected: 10/04/2024, Expires: 10/04/2025 [facility] Work Phone: Comment on above: Expected: 10/04/2024, Expires: Start: 10-04-2024 End: 10-04-2025 Hepatitis B virus surface Ab [Units/volume] in Serum Hepatitis B surface antibody Lab Routine Carcinoma of breast, estrogen receptor positive, stage 3, unspecified laterality (Multi) Expected: 10/04/2024, Expires: 10/04/2025 [facility] Work Phone: Comment on above: Expected: 10/04/2024, Expires: Start: 10-04-2024 End: 10-04-2025 Hepatitis B virus surface Ag [Presence] in Serum or Plasma by Immunoassay Hepatitis B surface antigen Lab Routine Carcinoma of breast, estrogen receptor positive, stage 3, unspecified laterality (Multi) Expected: 10/04/2024, Expires: 10/04/2025 [facility] Work Phone: Comment on above: Expected: 10/04/2024, Expires: 5 Start: 09-29-2024 End: 09-29-[address] [facility] [place] Start: 09-27-2024 End: 12-26-2024 Onco-Echo Limited (Strain and 3D) Onco-Echo Limited (Strain and 3D) Echocardiography Routine Cardiomyopathy, ischemic Chronic diastolic heart failure Aortic valve stenosis, etiology of cardiac valve disease unspecified Status post coronary artery bypass grafting Expected: 09/27/2024, Expires: 12/26/2024 [facility] Service Area Work Phone: Comment on above: Expected: 09/27/2024, Expires: Start: 09-27-2024 End: 09-27-2024 ambulatory [facility] Start: 09-27-2024 End: 09-27-2024 Patient encounter procedure 09/27/2024 11:45 AM EST Office Visit [facility] [address] [place] [address] Cindy Bae MD [address] [place] [address] [address] Level, [address] [place] [address] [facility] Start: 09-24-2024 [facility] Start: 09-24-2024 [facility] Start: 09-20-2024 End: 09-20-2025 PET+CT Bone from skull base to mid-thigh W 18F-NaF IV NM PET CT bone skull base to mid thigh Imaging Routine Carcinoma of breast, estrogen receptor positive, stage 3, unspecified laterality (Multi) Malignant neoplasm of lower-outer quadrant of right breast of female, estrogen receptor negative Expected: 09/20/2024, Expires: 09/20/2025 [facility] Area Work Phone: Comment on above: Expected: 09/20/2024, Expires: Start: 09-20-2024 End: 09-20-2024 ambulatory [facility] Start: 09-20-2024 End: 09-20-2024 Patient encounter procedure 09/20/2024 10:20 AM EST Office Visit [facility] [address] [place] [address] [place] [address] [place] [address] [facility] Start: 09-04-2024 End: 09-04-[address] [facility] [place] Start: 08-15-2024 End: 09-08-2024 CBC panel - Blood by Automated count [facility] Work Phone: Start: 08-15-2024 End: 08-08-2025 Magnesium [Mass/volume] in Serum or Plasma [facility] Work Phone: Start: 08-15-2024 End: 09-08-2024 Renal function 2000 panel - Serum or Plasma [facility] Work Phone: Start: 08-01-2024 End: 08-01-2024 Admission to same day surgery center 08/01/2024 6:45 AM EDT - 08/01/2024 3:[address] [facility] [address] [place] [address] [place] [address] Department [place] [address] Mitral Valve Replacement/CABG [95036 (CPT )] [facility] [place] Comment on above: Mitral Valve Replacement/CABG [10231 (CP T )] Start: 08-01-2024 End: 08-01-2024 As-aort grf w/card byp f/aortic ds oth/thn dsj Repair Ascending Aorta Aneurysm of ascending [place] without rupture [place] 08/01/2024 6:45 AM EDT Virtual [facility] [place] Start: 08-01-2024 End: 08-01-2024 Coronary artery byp w/vein & artery graft 1 vein Mitral Valve Replacement/CABG Aneurysm of ascending aorta without rupture [place] 08/01/2024 6:45 AM EDT Virtual [facility] [place] Start: 08-01-2024 End: 08-01-2024 Rplcmt prost aortic valve open xcp homogrf/stent Replacement Aortic Valve Aneurysm of ascending aorta without rupture [place] 08/01/2024 6:45 AM EDT Virtual [facility] [place] Start: 08-01-2024 Subsequent hospital visit by physician 08/01/2024 5:15 AM EDT Hospital Encounter [facility] [address] [place] [address] [place] [address] Department [place] [address] [facility] [place] Start: 07-24-2024 End: 07-24-2024 Admission to establishment 07/24/2024 8:30 AM EDT Pre-Admission Testing [facility] [address] [place] [address] [facility] Start: 07-17-2024 End: 07-17-2024 Clinical Support 07/17/2024 11:30 AM EDT Clinical Support [facility] [address] [place] [address] [facility] Start: 07-12-2024 End: 07-12-2024 ambulatory 07/12/2024 9:00 AM EDT Infusion [facility] [address] [place] [phone] [facility] Start: 07-11-2024 End: 07-11-2024 ambulatory 07/11/2024 2:00 PM EDT Infusion [facility] [address] [place] [phone] [facility] Start: 07-07-2024 End: 07-07-2024 Patient encounter procedure 07/07/2024 10:30 AM EDT Office Visit [facility] [place] [address] [place] [address] [place] [address] [place] [address] Department [place] [address] [facility] Start: 07-06-2024 End: 07-06-2024 Patient encounter procedure 07/06/2024 1:20 PM EDT Office Visit [facility] [address] [facility] [address] [place] [address] [place] [address] [place] [address] [facility] Start: 07-05-2024 End: 07-05-2024 ambulatory 07/05/2024 9:00 AM EDT Infusion [facility] [address] [place] [phone] [facility] Start: 07-04-2024 End: 07-04-2024 ambulatory 07/04/2024 2:00 PM EDT Infusion [facility] [address] [place] [address] [facility] Start: 06-28-2024 End: 06-28-2024 Patient encounter procedure 06/28/2024 11:45 AM EDT Office Visit [facility] [address] [place] [phone] Cindy Bae MD [address], [address] [place] [address] [facility] Start: 06-28-2024 End: 06-28-2024 Patient encounter procedure 06/28/2024 10:40 AM EDT Office Visit [facility] [address] [facility] [address] [place] [address] [place] [address] [place] [address] [facility] Start: 06-21-2024 End: 06-21-2024 ambulatory 06/21/2024 9:00 AM EDT Infusion [facility] [address] [facility] [address] [place] [address] [facility] Start: 06-21-2024 End: 06-21-2024 Home visit 06/21/2024 9:00 AM EDT Home Care Visit [facility] [address] [place] [address] Celia Dang, PT [facility] Start: 06-20-2024 End: 06-20-2024 ambulatory 06/20/2024 3:00 PM EDT Infusion [facility] [address] [facility] [address] [place] [address] [facility] Start: 06-18-2024 Covid-19 Vaccine ( season) Covid-19 Vaccine () [facility] Start: 06-18-2024 COVID-19 Vaccine () COVID-19 Vaccine () [facility] Start: 06-18-2024 COVID-19 Vaccine () COVID-19 Vaccine () [facility] Start: 06-18-2024 Influenza vaccination [facility] Start: 06-18-2024 [facility] Start: 06-15-2024 End: 06-12-2025 CBC W Auto Differential panel - Blood CBC and Auto Differential Lab Routine Carcinoma of breast, estrogen receptor positive, stage 3, unspecified laterality (Multi) Malignant neoplasm of lower-outer quadrant of right breast of female, estrogen receptor negative (Multi) Expected: 06/15/2024 (Approximate), Expires: 06/12/2025 [facility] Work Phone: Comment on above: Expected: 06/15/2024 (Approximate), Expi res: 06/12/2025 Start: 06-15-2024 End: 06-12-2025 Comprehensive metabolic 2000 panel - Serum or Plasma Comprehensive Metabolic Panel Lab Routine Carcinoma of breast, estrogen receptor positive, stage 3, unspecified laterality (Multi) Malignant neoplasm of lower-outer quadrant of right breast of female, estrogen receptor negative (Multi) Expected: 06/15/2024 (Approximate), Expires: 06/12/2025 [facility] Service Area Work Phone: Comment on above: Expected: 06/15/2024 (Approximate), Expi res: 06/12/2025 Start: 06-14-2024 End: 06-14-2025 Basic metabolic 2000 panel - Serum or Plasma Basic Metabolic Panel Lab Routine Carcinoma of breast, estrogen receptor positive, stage 3, unspecified laterality (Multi) Expected: 06/14/2024, Expires: 06/14/2025 [facility] Work Phone: Comment on above: Expected: 06/14/2024, Expires: Start: 06-14-2024 End: 06-14-2025 CBC W Auto Differential panel - Blood CBC and Auto Differential Lab Routine Carcinoma of breast, estrogen receptor positive, stage 3, unspecified laterality (Multi) Expected: 06/14/2024, Expires: 06/14/2025 [facility] Work Phone: Comment on above: Expected: 06/14/2024, Expires: Start: 06-14-2024 End: 06-14-2024 ambulatory 06/14/2024 9:00 AM EDT Infusion [facility] [address] [facility] [address] [place] [address] [facility] Start: 06-14-2024 End: 06-14-2024 Home visit 06/14/2024 9:00 AM EDT Home Care Visit [facility] [address] [place] [address] Leo Nelson PTA [facility] Start: 06-13-2024 End: 06-13-2024 ambulatory 06/13/2024 2:00 PM EDT Infusion [facility] [address] [facility] [address] [place] [address] [facility] Start: 06-07-2024 End: 06-07-2025 CBC W Auto Differential panel - Blood CBC and Auto Differential Lab Routine Carcinoma of breast, estrogen receptor positive, stage 3, unspecified laterality (Multi) Expected: 06/07/2024, Expires: 06/07/2025 [facility] Work Phone: Comment on above: Expected: 06/07/2024, Expires: Start: 06-07-2024 End: 06-07-2025 Comprehensive metabolic 2000 panel - Serum or Plasma Comprehensive metabolic panel Lab Routine Carcinoma of breast, estrogen receptor positive, stage 3, unspecified laterality (Multi) Expected: 06/07/2024, Expires: 06/07/2025 [facility] Work Phone: Comment on above: Expected: 06/07/2024, Expires: Start: 06-07-2024 End: 06-07-2024 ambulatory 06/07/2024 9:30 AM EDT Infusion [facility] [address] [place] [address] [facility] Start: 06-07-2024 End: 06-07-2024 Patient encounter procedure 06/07/2024 8:30 AM EDT Office Visit [facility] [address] [place] [address] Neli Cox, MOTION PICTURE PROJECTIONIST-CUSTOM STOCK MAKER [address] [place] [address] [facility] Start: 06-06-2024 End: 06-06-2024 Patient encounter procedure 06/06/2024 11:00 AM EDT Office Visit [facility] [address] [place] [address] Neli Cox, MOTION PICTURE PROJECTIONIST-CUSTOM STOCK MAKER [address] [place] [address] [facility] Start: 05-31-2024 End: 05-31-2024 ambulatory 05/31/2024 9:00 AM EDT Infusion [facility] [address] [facility] [address] [place] [address] [facility] Start: 05-30-2024 End: 05-30-2024 ambulatory 05/30/2024 2:00 PM EDT Infusion [facility] [address] [facility] [address] [place] [address] [facility] Start: 05-24-2024 End: 05-24-2025 Basic metabolic 2000 panel - Serum or Plasma Basic Metabolic Panel Lab Routine Carcinoma of breast, estrogen receptor positive, stage 3, unspecified laterality (Multi) Expected: 05/24/2024, Expires: 05/24/2025 [facility] Work Phone: Comment on above: Expected: 05/24/2024, Expires: Start: 05-24-2024 End: 05-24-2025 CBC W Auto Differential panel - Blood CBC and Auto Differential Lab Routine Carcinoma of breast, estrogen receptor positive, stage 3, unspecified laterality (Multi) Expected: 05/24/2024, Expires: 05/24/2025 [facility] Work Phone: Comment on above: Expected: 05/24/2024, Expires: Start: 05-24-2024 End: 05-24-2024 ambulatory 05/24/2024 9:00 AM EDT Infusion [facility] [address] [facility] [address] [place] [address] [facility] Start: 05-23-2024 End: 05-23-2024 ambulatory 05/23/2024 2:00 PM EDT Infusion [facility] [address] [facility] [address] [place] [address] [facility] Start: 05-17-2024 End: 05-17-2025 CBC W Auto Differential panel - Blood CBC and Auto Differential Lab Routine Carcinoma of breast, estrogen receptor positive, stage 3, unspecified laterality (Multi) Expected: 05/17/2024, Expires: 05/17/2025 [facility] Service Area Work Phone: Comment on above: Expected: 05/17/2024, Expires: Start: 05-17-2024 End: 05-17-2025 Comprehensive metabolic 2000 panel - Serum or Plasma Comprehensive metabolic panel Lab Routine Carcinoma of breast, estrogen receptor positive, stage 3, unspecified laterality (Multi) Expected: 05/17/2024, Expires: 05/17/2025 [facility] Work Phone: Comment on above: Expected: 05/17/2024, Expires: Start: 05-17-2024 End: 05-17-2024 Telemedicine consultation with patient 05/17/2024 10:00 AM EDT Telemedicine [facility] [address] [place] [address] [place] [address] [place] [address] [facility] Start: 05-17-2024 End: 05-17-2024 ambulatory 05/17/2024 9:00 AM EDT Infusion [facility] [address] [facility] 5 [place] [address] [facility] Start: 05-16-2024 End: 05-16-2024 Patient encounter procedure 05/16/2024 9:30 AM EDT Office Visit [facility] [address] [facility] [address] [place] [address] [place] [address] [facility] Department of [place] [address] [facility] Start: 05-10-2024 End: 05-10-2024 ambulatory 05/10/2024 9:00 AM EDT Infusion [facility] [address] [facility] 5 [place] [address] [facility] Start: 05-09-2024 End: 05-09-2024 ambulatory 05/09/2024 2:00 PM EDT Infusion [facility] [address] [facility] 5 [place] [address] [facility] Start: 05-03-2024 End: 05-03-2024 ambulatory 05/03/2024 9:00 AM EDT Infusion [facility] [address] [facility] 5 [place] [address] [facility] Start: 05-02-2024 End: 05-02-2024 ambulatory 05/02/2024 3:30 PM EDT Infusion [facility] [address] [facility] 5 [place] [address] [facility] Start: 04-26-2024 End: 04-26-2025 Basic metabolic 2000 panel - Serum or Plasma Basic Metabolic Panel Lab Routine Carcinoma of breast, estrogen receptor positive, stage 3, unspecified laterality (Multi) Expected: 04/26/2024, Expires: 04/26/2025 [facility] Work Phone: Comment on above: Expected: 04/26/2024, Expires: Start: 04-26-2024 End: 04-26-2025 CBC W Auto Differential panel - Blood CBC and Auto Differential Lab Routine Carcinoma of breast, estrogen receptor positive, stage 3, unspecified laterality (Multi) Expected: 04/26/2024, Expires: 04/26/2025 [facility] Work Phone: Comment on above: Expected: 04/26/2024, Expires: Start: 04-26-2024 End: 04-26-2025 Comprehensive metabolic 2000 panel - Serum or Plasma Comprehensive metabolic panel Lab Routine Carcinoma of breast, estrogen receptor positive, stage 3, unspecified laterality (Multi) Expected: 04/26/2024, Expires: 04/26/2025 [facility] Work Phone: Comment on above: Expected: 04/26/2024, Expires: Start: 04-26-2024 End: 04-26-2024 ambulatory 04/26/2024 9:00 AM EDT Infusion [facility] [address] [address] [facility] Start: 04-25-2024 End: 04-19-2025 CBC W Auto Differential panel - Blood CBC and Auto Differential Lab Routine Malignant neoplasm of lower-outer quadrant of right breast of female, estrogen receptor negative (Multi) Expected: 04/25/2024 (Approximate), Expires: 04/19/2025 [facility] Work Phone: Comment on above: Expected: 04/25/2024 (Approximate), Expi res: 04/19/2025 Start: 04-25-2024 End: 04-19-2025 Comprehensive metabolic 2000 panel - Serum or Plasma Comprehensive Metabolic Panel Lab Routine Malignant neoplasm of lower-outer quadrant of right breast of female, estrogen receptor negative (Multi) Expected: 04/25/2024 (Approximate), Expires: 04/19/2025 [facility] Work Phone: Comment on above: Expected: 04/25/2024 (Approximate), Expi res: 04/19/2025 Start: 04-21-2024 End: 04-21-2024 ambulatory 04/21/2024 2:00 PM EDT Infusion [facility] [address] [place] [phone] [facility] Start: 04-21-2024 End: 04-19-2025 CBC W Auto Differential panel - Blood CBC and Auto Differential Lab STAT Malignant neoplasm of lower-outer quadrant of right breast of female, estrogen receptor negative (Multi) Expected: 04/21/2024 (Approximate), Expires: 04/19/2025 [facility] Work Phone: Comment on above: Expected: 04/21/2024 (Approximate), Expi res: 04/19/2025 Start: 04-19-2024 End: 04-19-2025 CBC W Auto Differential panel - Blood CBC and Auto Differential Lab Routine Carcinoma of breast, estrogen receptor positive, stage 3, unspecified laterality (Multi) Expected: 04/19/2024, Expires: 04/19/2025 [facility] Service Area Work Phone: Comment on above: Expected: 04/19/2024, Expires: Start: 04-19-2024 End: 04-19-2025 Comprehensive metabolic 2000 panel - Serum or Plasma Comprehensive metabolic panel Lab Routine Carcinoma of breast, estrogen receptor positive, stage 3, unspecified laterality (Multi) Expected: 04/19/2024, Expires: 04/19/2025 [facility] Work Phone: Comment on above: Expected: 04/19/2024, Expires: Start: 04-19-2024 End: 04-19-2024 ambulatory 04/19/2024 11:00 AM EDT Infusion [facility] [address] [place] [address] [facility] Start: 04-19-2024 End: 04-19-2024 Patient encounter procedure 04/19/2024 9:30 AM EDT Office Visit [facility] [address] [place] [address] Neli Cox, MOTION PI[employer]URE PROJECTIONIST-CUSTOM STOCK MAKER [address] [place] [address] [facility] Start: 04-12-2024 End: 04-12-2024 Patient encounter procedure 04/12/2024 9:45 AM EDT Office Visit [facility] [address] [place] [address] Cindy Bae MD [address] [place], [place] [address], [address] [place] [address] [facility] Start: 04-05-2024 End: 04-05-2024 ambulatory 04/05/2024 1:00 PM EDT Infusion [facility] [address] [place] [address] [facility] Start: 03-24-2024 End: 03-24-2024 Patient encounter procedure 03/24/2024 1:30 PM EDT Appointment [facility] [address] [place] [address] [facility] Start: 03-17-2024 End: 03-17-2024 Patient encounter procedure 03/17/2024 1:00 PM EDT Appointment [facility] [address] [place] [address] [facility] Start: 03-14-2024 End: 03-14-[address] [facility] Start: 03-08-2024 End: 03-08-2025 Natriuretic peptide B [Mass/volume] in Blood B-Type Natriuretic Peptide Lab Routine Cardiomyopathy, ischemic Other cardiomyopathy (Multi) Expected: 03/08/2024 (Approximate), Expires: 03/08/2025 [facility] Service Area Work Phone: Comment on above: Expected: 03/08/2024 (Approximate), Expi res: 03/08/2025 Start: 03-08-2024 End: 03-08-2025 Troponin I.cardiac panel - Serum or Plasma by High sensitivity method Troponin I, High Sensitivity Lab Routine Cardiomyopathy, ischemic Expected: 03/08/2024 (Approximate), Expires: 03/08/2025 [facility] Work Phone: Comment on above: Expected: 03/08/2024 (Approximate), Expi res: 03/08/2025 Start: 03-08-2024 End: 03-08-2025 [facility] Transthoracic Transthoracic Echo (TTE) Complete Echocardiography Routine Cardiomyopathy, ischemic Chronic diastolic heart failure (Multi) Aortic valve stenosis, etiology of cardiac valve disease unspecified Expected: 03/08/2024, Expires: 03/08/2025 [facility] Work Phone: Comment on above: Expected: 03/08/2024, Expires: Start: 03-08-2024 End: 03-08-2024 Patient encounter procedure [facility] Start: 03-02-2024 End: 03-02-2024 Patient encounter procedure [facility] Start: 02-23-2024 End: 02-23-2024 Patient encounter procedure [facility] Start: 02-22-2024 End: 02-22-2024 Patient encounter procedure [facility] Start: 02-11-2024 End: 02-11-2024 Patient encounter procedure 02/11/2024 11:00 AM EDT Appointment [facility] [address] [place] [address] [facility] Start: 02-09-2024 End: 02-08-2025 Guidance for placement of CV catheter with port in Chest IR CVC port placement Imaging STAT Carcinoma of breast, estrogen receptor positive, stage 3, unspecified laterality (Multi) Expected: 02/09/2024 (Approximate), Expires: 02/08/2025 [facility] Work Phone: Comment on above: Expected: 02/09/2024 (Approximate), Expi res: 02/08/2025 Start: 02-09-2024 End: 04-10-2025 MG Guidance for needle localization of Breast - right BI breast right core needle biopsy Imaging Routine Abnormal mammogram Expected: 02/09/2024, Expires: 04/10/2025 [facility] Service Area Work Phone: Comment on above: Expected: 02/09/2024, Expires: Start: 02-09-2024 End: 02-08-2025 NM Whole body Bone Views NM bone whole body Imaging Routine Carcinoma of breast, estrogen receptor positive, stage 3, unspecified laterality (Multi) Expected: 02/09/2024 (Approximate), Expires: 02/08/2025 [facility] Work Phone: Comment on above: Expected: 02/09/2024 (Approximate), Expi res: 02/08/2025 Start: 02-09-2024 End: 02-08-2026 US Heart Transthoracic Transthoracic Echo Limited Echocardiography STAT Carcinoma of breast, estrogen receptor positive, stage 3, unspecified laterality (Multi) Cardiotoxicity (Multi) Expected: 02/09/2024 (Approximate), Expires: 02/08/2026 [facility] Area Work Phone: Comment on above: Expected: 02/09/2024 (Approximate), Expi res: 02/08/2026 Start: 02-09-2024 End: 02-09-2024 Patient encounter procedure [facility] Start: 01-22-2024 COVID-19 Vaccine () COVID-19 Vaccine () [facility] Start: 01-17-2024 Subsequent hospital visit by physician 01/17/[address] [facility] [place] [address] [place] [address] [place] [address] Department of Surgery-Cardiac [place] [id number] [facility] [place] Start: 12-20-2023 Patient referral [facility] Work Phone: Start: 12-09-2023 Patient referral [facility] Work Phone: Start: 12-03-2023 Patient referral [facility] Work Phone: Start: 11-17-2023 COVID-19 Vaccine () COVID-19 Vaccine () [facility] Start: 10-18-2023 Advance Directive Discussion Advance Directive Discussion [facility] Start: 10-13-2023 COVID-19 Vaccine (2 - Pfizer risk series) COVID-19 Vaccine (2 - Pfizer risk series) [facility] Start: 08-28-2023 Pneumococcal Vaccine: 65+ (2 of 2 - PCV) Pneumococcal Vaccine: 65+ (2 of 2 - PCV) [facility] Start: 08-28-2023 Pneumococcal Vaccine: 65+ Years (2 - PCV) Pneumococcal Vaccine: 65+ Years (2 - PCV) [facility] Start: 08-28-2023 Pneumococcal Vaccine: 65+ Years (2 of 2 - PCV) Pneumococcal Vaccine: 65+ Years (2 of 2 - PCV) [facility] Start: 10-18-2022 ADVANCE DIRECTIVE DISCUSSION ADVANCE DIRECTIVE DISCUSSION [facility] Start: 10-18-2022 DEPRESSION ASSESSMENT DEPRESSION ASSESSMENT [facility] Start: 06-02-2022 LIPID SCREEN LIPID SCREEN [facility] Start: 05-27-2022 Lipid panel [facility] Start: 12-18-2021 COVID-19 VACCINE (4 - Booster for Pfizer series) COVID-19 VACCINE (4 - Booster for Pfizer series) [facility] Start: 03-23-2021 DTaP/Tdap/Td Vaccines (1 - Tdap) DTaP/Tdap/Td Vaccines (1 - Tdap) [facility] Start: 03-23-2021 Urine microalbumin profile [facility] Start: 03-23-2021 [facility] Start: 04-27-2019 DIABETES SCREEN DIABETES SCREEN [facility] Start: 04-27-2019 Diabetes Screening Diabetes Screening [facility] Start: 2019 BONE DENSITY BONE DENSITY [facility] Start: 2019 Screening for osteoporosis [facility] Start: 06-02-2018 Hepatitis B surface antibody level LDL CHOLESTEROL [facility] Start: 05-27-2018 Hepatitis B surface antibody level LDL Cholesterol [facility] Start: 10-30-2017 Mammography MAMMOGRAM [facility] Start: 10-30-2017 Screening for malignant neoplasm of breast Mammogram Screening [facility] Start: 2014 RSV High Risk: (Elderly (60+) or Population) (1 - Risk 60-74 years 1-dose series) RSV High Risk: (Elderly (60+) or Population) (1 - Risk 60-74 years 1-dose series) [facility] Start: 2014 RSV patients and/or patients aged 60+ years (1 - 1-dose 60+ series) RSV patients and/or patients aged 60+ years (1 - 1-dose 60+ series) [facility] Start: 2014 [facility] Start: 08-19-2013 PNEUMOCOCCAL: 65+ (2 - PCV) PNEUMOCOCCAL: 65+ (2 - PCV) [facility] Start: 01-27-2004 SHINGRIX VACCINE (1 of 2) SHINGRIX VACCINE (1 of 2) [facility] Start: 01-27-2004 Zoster Vaccines (1 of 2) Zoster Vaccines (1 of 2) [facility] Start: 1999 COLOGUARD (FIT-DNA) COLOGUARD (FIT-DNA) [facility] Start: 1999 Colonoscopy COLONOSCOPY [facility] Start: 1999 COLORECTAL CANCER SCREENING COLORECTAL CANCER SCREENING [facility] Start: [address] COLONOGRAPHY [facility] Start: 1999 FECAL OCCULT BLOOD FECAL OCCULT BLOOD [facility] Start: 1999 Screening for malignant neoplasm of colon [facility] Start: 1999 SIGMOIDOSCOPY SIGMOIDOSCOPY [facility] Start: 1994 Screening for malignant neoplasm of breast Mammogram [facility] Start: 1973 Zoster Vaccines (1 of 2) Zoster Vaccines (1 of 2) [facility] Start: 1973 [facility] Start: 01-27-1972 ANNUAL PCP TEAM CHRONIC DISEASE VISIT ANNUAL PCP TEAM CHRONIC DISEASE VISIT [facility] Start: 01-27-1972 Anxiety Screening Anxiety Screening [facility] Start: 01-27-1972 Depression Screening Depression Screening [facility] Start: 01-27-1972 Diabetes mellitus screening Diabetes Screening [facility] Start: 01-27-1972 HEPATITIS C SCREENING HEPATITIS C SCREENING [facility] Start: 01-27-1972 Hepatitis C screening [facility] Start: 1955 MMR Vaccines (1 of 1 - Standard series) MMR Vaccines (1 of 1 - Standard series) [facility] Start: 1954 Annual wellness visit [facility] Start: 1954 Echocardiography Echocardiogram [facility] Start: 1954 Hemoglobin A1c measurement Diabetes: [facility] Start: 1954 Lipid panel Lipid Panel [facility] Start: 1954 Medicare Annual Wellness Visit [facility] Start: 1954 Screening for malignant neoplasm of colon [facility] Start: 1954 Screening for osteoporosis [facility] Airway Clearance Techniques Device/modality: EzPap [facility] Work Phone: Cardiac device check - Inpatient [facility] Work Phone: Cardiac device check - Surgery [facility] Work Phone: CBC panel - Blood by Automated count [facility] Work Phone: Complete blood count [facility] End: 08-01-2024 Determination of physical activity tolerance [facility] Work Phone: Electrocardiogram 12 -lead PRN for arrhythmia [facility] Work Phone: End: 08-04-2024 Encourage deep breathing and coughing [facility] Work Phone: End: 08-04-2024 Incentive spirometry Instruct [facility] Work Phone: Lactoferrin [Presenc e] in Stool by Immunoassay [facility] Magnesium [Mass/volu me] in Serum or Plasma [facility] Work Phone: Patient Education [facility] Work Phone: Patient referral [facility] Work Phone: Positron emission tomography with computed tomography [facility] Protein measurement [facility] Pulse oximetry, spot [facility] Work Phone: Renal function 2000 panel - Serum or Plasma [facility] Work Phone: RF videography Hypop harynx and Esophagus Views for swallowing function W speech and W barium contrast PO [facility] Work Phone: Rplcmt prost aortic valve open xcp homogrf/stent Replacement Aortic Valve and Aortic Root and Ascending Aorta Coronary artery disease of [place] artery of [place] heart with stable angina pectoris ([facility] [place] End: 02-07-2024 Study Interpretation of outside study [facility] Service [facility] Work Phone: Comment on above: Once for 1 Occurrences starting 02/07/20 until 02/07/2024 Surgical pathology study [facility] Work Phone: Comment on above: Release Upon Ordering for 1 Occurrences starting 02/22/2024, 1 completed Surgical pathology study [facility] Work Phone: End: 08-04-2024 Urinalysis complete panel - Urine [facility] Work Phone: End: 02-11-[address] [facility] Work Phone: Comment on above: Once for 1 Occurrences starting 02/11/20 until 02/11/2024 End: 03-17-[address] [facility] Work Phone: Comment on above: Once for 1 Occurrences starting 03/17/20 until 03/17/2024 End: 09-19-2024 Heart Transthoracic [facility] Area Work Phone: Comment on above: Once for 1 Occurrences starting 09/19/20 24 until 09/19/2024 End: 04-26-2025 US Heart Transthoracic [facility] Service Area Work Phone: Comment on above: Once for 1 Occurrences starting 04/26/20 25 until 04/26/2025 End: 04-19-2024 XR Chest 2 Views [facility] Work Phone: Comment on above: Once for 1 Occurrences starting 04/19/20 24 until 04/19/2024 Immunizations Immunization Date Immunization Notes Care Provider Fa [facility] 07-13-2025 Seasonal trivalent influenza vaccine, adjuvanted, preservative free Dr. Daniela Fallon MD Work Phone: [facility] 09-22-2023 Flu vaccine, quadrivalent, high-dose, preservative free, age 65y+ (FLUZONE) Neli Cox MOTION PICTURE PROJECTIONIST-CUSTOM STOCK MAKER Work Phone: [facility] Work Phone: 09-22-2023 influenza virus vacc ine, unspecified formulation Neli Cox MOTION PICTURE PROJECTIONIST-CUSTOM STOCK MAKER Work Phone: [facility] Work Phone: 08-28-2022 influenza, injectabl e, quadrivalent, preservative free Dr. Daniela Fallon Work Phone: [facility] 08-28-2022 influenza, seasonal, injectable Dr. Daniela Fallon Work Phone: [facility] 08-28-2022 pneumococcal polysaccharide vaccine, [address] Daniela Fallon Work Phone: [facility] 08-28-2022 influenza virus vacc ine, unspecified formulation Xr [place] Work Phone: [facility] 10-23-2021 Covid (Pfizer) Dr. Daniela Fallon Work Phone: [facility] 03-22-2021 tetanus and diphther ia toxoids, adsorbed, preservative free, for adult use (5 Lf of tetanus toxoid and 2 Lf of diphtheria toxoid) Keyanna Sanchez APRN.CUSTOM STOCK MAKER Work Phone: [facility] Work Phone: 03-20-2021 Covid (Pfizer) Dr. Daniela Fallon Work Phone: [facility] 02-27-2021 Covid (Pfizer) Dr. Daniela Fallon Work Phone: [facility] 07-16-2020 Fluad Quad [id number](65yr up)(PF) 60 mcg (15 mcg x 4)/0.5mL IM syringe (flu vac Dr. Daniela Fallon Work Phone: [facility] Work Phone: 07-16-2020 influenza, injectabl e, quadrivalent, preservative free Dr. Daniela Fallon Work Phone: [facility] 07-16-2020 influenza, seasonal, injectable Dr. Daniela Fallon Work Phone: [facility] 07-16-2020 influenza, seasonal, injectable, preservative free Dr. Daniela Fallon Work Phone: [facility] Work Phone: 09-22-2019 pneumococcal conjuga te vaccine, [address] Daniela Fallon Work Phone: [facility] 09-22-2019 pneumococcal vaccine , unspecified formulation Dr. Daniela Fallon Work Phone: [facility] Work Phone: 06-27-2019 influenza, high dose seasonal, preservative-free Neli Cox MOTION PICTURE PROJECTIONIST-CUSTOM STOCK MAKER Work Phone: [facility] Work Phone: 08-26-2017 influenza, injectabl e, madin tayler canine kidney, preservative free Neli Cox MOTION PICTURE PROJECTIONIST-CUSTOM STOCK MAKER Work Phone: [facility] Work Phone: 09-21-2016 influenza, injectabl e, quadrivalent, contains preservative Keyanna Richardson-Osmel MOTION PICTURE PROJECTIONIST.[facility] Work Phone: [facility] 08-22-2015 influenza, injectabl e, quadrivalent, contains preservative Keyanna Richardson-Osmel MOTION PICTURE PROJECTIONIST.[facility] Work Phone: [facility] Work Phone: 08-15-2014 influenza, seasonal, injectable Keyanna Prajohnnie-Osmel MOTION PICTURE PROJECTIONIST.[facility] Work Phone: [facility] Work Phone: 08-15-2013 influenza virus vacc ine, unspecified formulation Keyanna Sanchez MOTION PICTURE PROJECTIONIST.[facility] Work Phone: [facility] Work Phone: 08-19-2012 pneumococcal polysaccharide vaccine, 23 valent Keyanna Sanchez MOTION PICTURE PROJECTIONIST.[facility] Work Phone: [facility] Work Phone: 07-18-2010 influenza virus vacc ine, unspecified formulation Keyanna Sanchez MOTION PICTURE PROJECTIONIST.[facility] Work Phone: [facility] 07-15-2009 influenza virus vacc ine, unspecified formulation Keyanna Sanchez MOTION PICTURE PROJECTIONIST.[facility] Work Phone: [facility] Work Phone: Payers Date Payer Category Payer Self-pay [id number] 2014 Medicaid [employer] [facility] [place] [id number] 2014-Present [phone] [address] [place] [address] Medicaid [id number] 2014 Medicare [employer] ARE [facility] [id number] 2014-Present [phone] [address] [place] [address] Medicare [id number] 2014 Dual Eligibility Medicare/Medicaid Organization [id number] 2014 Unknown [id number]. 1.13.647.2 .7.3.435777.315 2014 Unknown [id number] 2007 Unknown [id number] 1954 Unknown [id number] 2.0.1.136989.3.579.2 .1954 Unknown [id number] 2.840.1.441380.3.579.2 1954 Unknown [id number] .840.1.431351.3.579.2 1954 Unknown [id number] .840.1.214371.3.579.2 1954 Unknown [id number] .0.1.377775.3.579.2 .1954 Unknown [id number] 2.840.1.635695.3.579.2 .1954 Unknown [id number] 2.16840.1.673162.3.579.2 1954 Unknown [id number] 2.840.1.050326.3.579.2 .1954 Unknown [id number] 2.840.1.582175.3.579.2 1954 Unknown [id number] 2.16.840.1.211676.3.579.2 .1246 1954 Unknown [id number] 2.16.840.1.407024.3.579.2 .1246 1954 Unknown [id number] 2.16.840.1.342232.3.579.2 .1241 1954 Unknown [id number] 2.16.840.1.826969.3.579.2 .1241 1954 Unknown [id number] 2.16.840.1.198557.3.579.2 .1244 1954 Unknown [id number] 2..840.1.009598.3.579.2 .1244 1954 Unknown [id number] 2..840.1.997887.3.579.2 .1244 1954 Unknown [id number] 2.840.1.665001.3.579.2 .1244 1954 Unknown [id number] 2..840.1.767340.3.579.2 .1244 1954 Unknown [id number] 2.16.840.1.345653.3.579.2 .1244 1954 Unknown [id number] 2.840.1.029019.3.579.2 .1244 1954 Unknown [id number] 2.16.840.1.278024.3.579.2 .1244 1954 Unknown [id number] 2.16.840.1.489884.3.579.2 .1244 1954 Unknown [id number] 2.16.840.1.874140.3.579.2 .1244 1954 Unknown [id number] 2.16.840.1.434985.3.579.2 .1244 1954 Unknown [id number] 2.16.840.1.799690.3.579.2 .1244 1954 Unknown [id number] 2.16.840.1.214775.3.579.2 .1244 1954 Unknown [id number] 2.16.840.1.121723.3.579.2 .1244 1954 Unknown [id number] 2.16.840.1.220236.3.579.2 .1244 1954 Unknown [id number] 2.16.840.1.382415.3.579.2 .1244 1954 Unknown [id number] 2.840.1.865222.3.579.2 .1244 1954 Unknown [id number] 2.840.1.996326.3.579.2 .1244 1954 Unknown [id number] 2.840.1.338410.3.579.2 .1244 1954 Unknown [id number] 2.840.1.895609.3.579.2 .1244 1954 Unknown [id number] 2.840.1.040302.3.579.2 .1244 1954 Unknown [id number] 2.840.1.404268.3.579.2 .1244 1954 Unknown [id number] 2.840.1.492587.3.579.2 .1244 1954 Unknown [id number] 2.840.1.461060.3.579.2 .1244 1954 Unknown [id number] 2.840.1.643567.3.579.2 .1244 1954 Unknown [id number] 2.16840.1.190417.3.579.2 .1244 1954 Unknown [id number] 2.16840.1.090363.3.579.2 .1244 1954 Unknown [id number] 2.16.840.1.554001.3.579.2 .1244 1954 Unknown [id number] 2.16.840.1.471880.3.579.2 .1244 1954 Unknown [id number] 2.16.840.1.350902.3.579.2 .1244 1954 Unknown [id number] 2.16.840.1.348217.3.579.2 .1244 1954 Unknown [id number] 2.16.840.1.865677.3.579.2 .1244 1954 Unknown [id number] 2.16.840.1.884295.3.579.2 .1244 1954 Unknown [id number] 2.840.1.007427.3.579.2 .1244 1954 Unknown [id number] 2.16840.1.888938.3.579.2 .1244 1954 Unknown [id number] 2.840.1.597649.3.579.2 .1244 1954 Unknown [id number] 2.16.840.1.699864.3.579.2 .1244 1954 Unknown [id number] 2.840.1.795025.3.579.2 .1244 1954 Unknown [id number] 2.16.840.1.983311.3.579.2 .1244 1954 Unknown [id number] 2.16840.1.514090.3.579.2 .1244 1954 Unknown [id number] 2.16840.1.905756.3.579.2 .1244 1954 Unknown [id number] 2.16.840.1.319931.3.579.2 .1244 1954 Unknown [id number] 2..840.1.263177.3.579.2 .1244 1954 Unknown [id number] 2..840.1.863860.3.579.2 .1244 1954 Unknown [id number] 2.840.1.946426.3.579.2 .1244 1954 Unknown [id number] 2.840.1.971763.3.579.2 .1244 1954 Unknown [id number] 2.840.1.882540.3.579.2 .1244 1954 Unknown [id number] 2.840.1.378026.3.579.2 .1244 1954 Unknown [id number] 2.0.1.396087.3.579.2 .1244 1954 Unknown [id number] 2.840.1.834950.3.579.2 .1244 1954 Unknown [id number] 2.840.1.415047.3.579.2 .1244 1954 Unknown [id number] 2.840.1.873033.3.579.2 .1245 Unknown [id number] 2.840.1.742751.3.579.2 .462 Unknown [id number] 2.840.1.411679.3.579.2 .462 Unknown [id number] 2.840.1.222857.3.579.2 .462 Unknown [id number] 2.840.1.245394.3.579.2 .462 Unknown [id number] 2.840.1.832347.3.579.2 .462 Unknown [id number] 2.840.1.559112.3.579.2 .462 Unknown [id number] 2.16.840.1.863576.3.579.2 .462 Unknown [id number] 2.16.840.1.958322.3.579.2 .462 Unknown [id number] 2.16.840.1.423760.3.579.2 .462 Unknown [id number] 2.16.840.1.407888.3.579.2 .462 Unknown [id number] 2.16.840.1.571107.3.579.2 .462 Unknown [id number] 2.16.840.1.115447.3.579.2 .462 Unknown [id number] 2.16.840.1.794059.3.579.2 .462 Unknown [id number] 2.16.840.1.882792.3.579.2 .462 Unknown [id number] 2.16.840.1.662703.3.579.2 .462 Unknown [id number] 2.16.840.1.515613.3.579.2 .462 Unknown [id number] 2.16.840.1.093413.3.579.2 .462 Unknown [id number] 2.16.840.1.260496.3.579.2 .462 Unknown [id number] 2.16.840.1.476846.3.579.2 .462 Social History Date Type Detail Facility Start: 06-07-2020 End: 04-18-2025 Ex-smoker (finding) [facility] Start: 1955 Sex Assigned At Female [facility] Start: 11-24-2021 End: 01-04-2024 Tobacco smoking status NYIS Unknown if ever smoked [facility] Start: 04-02-2021 None [facility] Start: 04-02-2021 Non-smoker [facility] Start: 10-18-1972 End: 02-18-2005 History of tobacco use Current smoker [facility] Start: 10-18-1972 End: 02-18-2005 History of tobacco use Cigarette Smoker [facility] Start: 11-12-2022 End: 04-30-2025 Tobacco use and exposure Smokeless tobacco non-user 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 Start: 1955 Sex Assigned At Not on file [facility] Start: 12-02-2023 Tobacco smoking status NHIS Never smoked tobacco [facility] Work Phone: Start: 12-02-2023 End: 02-14-2025 Alcohol intake Lifetime non-drinker (finding) [facility] Work Phone: Start: 12-02-2023 End: 08-04-2024 History of Social function [facility] Start: 12-02-2023 End: 08-04-2024 Tobacco use panel [facility] Start: 11-22-2023 End: 03-28-2025 Exposure to SARS-CoV-2 (event) Not sure [facility] Start: 09-11-2022 National Score (1-100), lower number is lower risk Not on file [facility] How often do you feel lonely or isolated from those around you [[facility] Assessment] Never [facility] Work Phone: In the past 12 months, was there a time when you were not able to pay the mortgage or rent on time? No [facility] Work Phone: Start: 01-02-2025 End: 02-09-2025 Sex Female (finding) [facility] Start: 05-03-2025 End: 06-27-2025 Alcoholic beverage intake Ex-drinker (finding) [facility] Work Phone: Start: 04-30-2025 Alcohol Comment Occasionally o n holidays [facility] Work Phone: NEGATED: Highlighted rowStart: NINF History of tobacco use Passive smoker [facility] Work Phone: Medical Equipment Procedure Code Equipment Code Equipment Origin al Text Equipment Identifier Dates [id number] Start: 01-17-2024 [id number] Start: 08-01-2024 Graft, Vascular, Impregnated, Woven, Gelweave, 8 Mm X 15 Cm - [id number] Start: 08-01-2024 [id number] Start: 08-01-2024 [id number] Start: 08-01-2024 Goals Date Patient Goal Desired Activity /State Functional Status Date Assessment Result Facility 07-31-2025 [facility] Work Phone: 07-31-2025 Functional status 147/68 [facility] Work Phone: 07-31-2025 Vital signs 60 07/31/2025 11 :27 AM Johnny Toscano MA [facility] Work Phone: 05-16-2025 Patient Health Questionnaire 2 item (PHQ-2) [Reported] [facility] Work Phone: 02-14-2025 Patient Health Questionnaire 2 item (PHQ-2) [Reported] [facility] Work Phone: 12-15-2024 Functional status [facility] Work Phone: 07-05-2023 Functional Status Identification band [facility] 07-05-2023 Functional Status Room check performed [facility] 07-05-2023 Functional Status [facility] Mental Status Date Assessment Result Facility 12-15-2024 Cognitive function Voice/Name [facility] Work Phone: 07-05-2023 Mental Status Oriented x 4 [facility] 07-05-2023 Mental Status [facility] Clinical Notes 07-09-2014 to 08-07-2025 Note Date & Type Note Facility 08-07-2025 Progress note [facility] 08-07-2025 Progress note Note Date/Time August 07, 2025 4:12pm [facility] Internal Medicine [address] [address] [place] [address] OFFICE VISIT Date of Service: 08/07/25 MR#: [id number] Acct: [id number] Name: LIZBETH NIXON Rep #: [id number] : 1955 Provider: GEORGIANA Rubio Age/Sex: 70/F [place] [facility] Status: Signed Intake Vital Signs 07/13/25 10:04 08/07/25 14:52 Height 5 ft 5 ft Weight: 113 lb 4 oz 113 lb BMI 22.1 22.0 BP 128/72 H Blood Pressure Location Lt brachial Position Sitting Respiration 16 16 Pulse 78 65 Pulse Source Monitor Monitor Temp 96.5 F L 97 F L Temp Source Temporal Temporal Pulse Oximetry (%) 94 92 Oxygen Delivery Method room air room air Intake Visit Reasons: Fall Chief Complaint: fu from fall House Worker General Required: No Accompanied by: Self Is patient in pain?: No Allergies No Known Allergies Allergy (Verified 08/07/25 14:48) Medications ?Medication ?Instructions ?Recorded ?Confirmed ?Type aspirin 81 mg chewable tablet 81 mg PO DAILY 11/23/17 08/07/25 History melatonin 10 mg capsule 10 mg PO HS PRN sleep 08/07/25 History calcium carbonate 600 mg PO BID 06/30/1808/07 History nitroglycerin 0.4 mg sublingual See Rx Instructions .R oute 05/11/24 08/07/25 Rx tablet .COMPLEX #75 tabs handicap placard #1 ea 09/01/24 08/07/25 Rx cholecalciferol (vitamin D3) 50 50 mcg PO DAILY 08/07/25 History mcg (2,000 unit) capsule (Vitamin D3) sotalol 80 mg tablet (Betapace) 80 mg PO DAILY 5 08/07/25 History sertraline 100 mg tablet 100 mg PO QDAY #90 tabs 04/1708/07/25 Rx amlodipine 10 mg tablet 10 mg PO QDAY #90 tabs 05/0708/07/25 Rx lisinopril 40 mg tablet 40 mg PO DAILY #90 tabs 04/1808/07/25 Rx pantoprazole 40 mg tablet,delayed 40 mg PO BID #180 ta bs 05/07/25 08/07/25 Rx release rosuvastatin 20 mg tablet 20 mg PO DAILY #90 tabs 04/1808/07/25 Rx Handicap Placard #1 ea 07/13/25 08/07/25 Rx trazodone 100 mg tablet 100 mg PO QHS PRN insomnia # 90 tabs 07/30/25 08/07/25 Rx mupirocin 2 % topical ointment 1 applic topical BID #1 5 grams 08/07/25 08/07/25 Rx (Centany) Have you fallen in the past year?: Yes Nurse's Note: left and right arm skin tears stings at times PFSH Medical History Breast cancer Anorexia Neutropenic fever Gastroenteritis Breast cancer metastasized to axillary lymph node Nontraumatic psoas hematoma Hyperbilirubinemia Severe anemia Non-ST elevation DE (NSTEMI) Rhabdomyolysis Thrombocytopenia CAD (coronary artery disease) Chronic pain Atrial fibrillation ICD (implantable cardioverter-defibrillator) in place Urinary urgency Metastasis to bone Regional lymph node metastasis present Invasive ductal carcinoma of breast Aortic valve regurgitation due to aortic dilation Breast nodule Abnormal findings on imaging test Breast mass, right Skin mole Left knee pain Anxiety and depression Diarrhea Major depressive disorder, recurrent Health care maintenance Flu vaccine need Skin tags, multiple acquired Left hand pain History of cyst of breast History of stroke Heart valve problem GERD (gastroesophageal reflux disease) Hyperlipemia Hypertension Surgical History History of coronary artery bypass graft x 3 History of hysterectomy Cardiac defibrillator in place 4 stents cardiac rythem pacemaker triple bypass, valve replacement, nad aneurysm repair History of tonsillectomy Family History Mother CVA (cerebral vascular accident) Breast cancer, Onset Age: 35 Father Heart disease Sister Breast cancer, Onset Age: 50 Heart disease Hypertension Cancer lung Social History household members: none Smoking Status: Former smoker Tobacco: How many years used: 20 how long ago did patient quit smokin alcohol intake: never substance use type: does not use what type of physical activity do you participate in: none HPI HPI Chief Complaint: fu from fall Details: LIZBETH NIXON, is a 70 F who presents to the office today for evaluation of skin tears after fall. Patient states a couple days ago she fell when she tripped over a bag of dog food. She denies lightheadedness or dizziness or unsteady footing as cause of fall. She states she reached out as she was falling and herskin on her arms which is very thin developed skin tears on both forearms. She has been using Neosporin as well as gauze and Ejnnifer wrap dressings. She states she has a friend that is a JOURNAL BOX INSPECTOR that comes and checks on them. She has had no fever or chills. Denies any drainage from wounds states her friend tried as best as possible to flatten the skin back out to cover the tears. She denies any excessive bleeding from these wounds. ROS Const Constitutional: No body ache, excessive sweating, fatigue, fever(s), frequent falls, headache(s), snoring, weakness, weight change, sleep problems or change in appetite Eyes Eyes: No blurry vision, change in vision, eye pain or Light sensitivity ENT ENT: No abnormal hearing, ear or mastoid pain, tinnitus, nasal congestion, headache(s), neck pain or sore throat Resp Respiratory: No cough, shortness of breath, snoring or wheezing Cardio Cardiology: No chest pain at rest, chest pain with exertion, excessive sweating,shortness of breath, dyspnea on exertion, lightheadedness, orthopnea or palpitations Gastro GI: No abdominal pain, change in bowel habits, constipation, cramping, diarrhea,nausea/dyspepsia or vomiting Genitourinary-Female: No burning urination, painful urination, urinary incontinence, urinary frequency, blood in urine, abnormal periods or pelvic pain Musc Musculoskeletal: No abnormal gait, joint pain, back pain, limited range of motion, neck pain, numbness, stiffness, tingling or Arthritis Skin Skin: No dry skin, redness, lesions, itchy eyes, rash or wounds Neuro Neurology: No abnormal gait, abnormal hearing, abnormal speech, dizziness, weakness, frequent falls, headache(s), memory loss, numbness or tingling Psych Psychiatric: No anxiety, No change in appetite, No depression, No memory loss and No Thoughts of harming yourself/Others Endo Endocrine: No cold intolerance, excessive sweating, fatigue, flushing, heat intolerance, increased thirst/drinking, increased hunger or weight change Aller/Imm Allergy/Immunologic: No itchy eyes, seasonal allergy symptoms, hives or wheezing Jose/Lymp Hematologic/Lymphatic: No easy bleeding, easy bruising or enlarged lymph nodes Exam Const General: cooperative, no acute distress and well developed Nutritional Appearance: well nourished Orientation: alert and oriented x3 HENMT Head: normal to inspection and normocephalic Eyes General: appearance normal, both eyes and all related structures Neck Neck: normal visual inspection and trachea midline Chest Chest palpation & inspection: normal inspection of the chest Resp Effort & Inspection: normal respiratory effort, able to speak in complete sentences and symmetric chest movement Auscultation: Bilateral: Clear to Auscultation Cardio Palpation: normal PMI Rate: regular rate Rhythm: regular rhythm Heart Sounds: S1 normal and S2 normal Skin Trauma: laceration left forearm Other: Patient with multiple skin tears to bilateral forearms with various degree of open areas of skin. 1 area on the right upper forearm with small amount of bleeding. No increased redness warmth or edema to areas noted. No purulent drainage noted areas of skin appear pink and healing. Neuro General: patient alert and patient oriented x3 Cognition: normal cognition Speech: speech normal Extrem General: normal to inspection and capillary refill normal Coding Level of Care Code Established Pt Off vis,est,level 2 Patient Type Established History Expanded Problem Focused Exam Expanded Problem Focused Medical Decision Making Low Complexity Diagnoses Skin tear of forearm without complication, unspecified laterality, initial encounter S51.819A Encounter type: initial encounter Laterality: unspecified laterality Time Spent (min) 25 Assessment and Plan Assessment and Plan (1) Skin tear of forearm without complication: Status: Acute Qualifiers: Encounter type: initial encounter Laterality: unspecified laterality Qualified Code(s): S51.819A - Laceration without foreign body of unspecified forearm, initial encounter Plan: Bilateral skin tears discussed wound care and signs symptoms of infection to watch for. Did apply nonstick dressing and will use antibiotic ointment coveredwith gauze to allow healing return to office for any concerns. Medications: New mupirocin 2% (Centany) 1 applic topical BID 15 grams 0RF Plan Details Follow Up: As needed Clinical Quality Measures Falls Risk Screening/Assistive Devices Have you fallen in the past year?: Yes 08/09/25 1120 <Electronically signed by Claudia doll TILE AND MARBLE INSTALLER-C> Date _ Claudia Rubio TILE AND MARBLE INSTALLER-C Cosigner Signature: Date (if applicable) CC: ~ [employer] Work Phone: [phone] 344-748610-14-2025 History of Present illness Narrative* Neli Cox, NEFTAL[employer]-CUSTOM STOCK MAKER - 07/31/2025 11:30 AM EDT Images from the original note were not included. Breast Medical Oncology Clinic Location: [facility] BREAST CANCER DIAGNOSIS Malignant neoplasm of lower-outer quadrant of right breast of female, estrogen receptor negative, Clinical: Stage IIB (cT2(m), cN1(f), cM0, G3, ER-, WV-, HER2+) Malignant neoplasm of lower-outer quadrant of right breast of female, estrogen receptor negative, Pathologic: Stage IV (cM1, ER-, WV-, HER2+) ONCOLOGIC HISTORY S/p 3 cycles of dose reduced gemcitabine/carboplatin days 1 and 8 q21 days from 03/30/24 to 05/31/24 Trastuzumab single agent 10/09/24 and 10/30/24 : Incidentally found breast cancer after chest CT for heart surgery work up (she has aortic valve disease) found breast mass and axillary adenopathy in the right breast. Biopsy of both revealed HER2+, ER/WV- breast cancer. Other outside staging workup raised the possibility of oligo bone metastases however the data was unconvincing. Outside PET/CT vaguely showed two areas in the upper spine but MRI suggests that this could be degenerative disease. Bone scan was definitely negative for bone mets. Cardio-oncology advised against Her2 mAB therapy as she has little cardiac reserve until able to complete aortic valve repair first. Was on gem/carbo with clinical response in breast March-May 2024 She came back post cardiac surgery on 08/02/24. Restaging at that time revealed re-growth ofbreast mass and more obvious FDG uptake in spine. Cleared by Cards for gemcitabine/trastuzumab/pertuzumab CURRENT THERAPY Gemcitabine/trastuzumab/pertuzumab since 11/30/24, changed to day 1 only after Cycle One which was aday 1 and Day 8 due profound neutropenia and thrombocytopenia HISTORY OF PRESENT ILLNESS Lizbeth Nixon is a 70 y.o. woman with IV breast cancer here for treatment follow up. Today I have reviewed with the patient I will be conducting a clinical physical breast exam. Patient has declined a second medical professional today during the exam as a chapperone. She is accompanied today by alex Caruso. She has continued on current regimen every 3 weeks. She continues to cancel and refuse supportive oncology referral. She continues to struggle with poor appetite and weight gain struggles. No nausea or vomiting and normal bowels and denies any diarrhea but reports drive to eat and taste is poor. She works to on adequate hydration but is unsure if she is getting 2 liters per day but likely closer to 48 oz. She reports more fatigue this past week, lasted a few days (48oz) after her last treatment. She additionally struggles with gait and some worsening of balance issues. She denies any severe headaches.She continues with ADL's . She reports baseline Left eye vision issues due to prior strokes and denies any issues in the right eye. She reports she is sleeping well. She denies any chest pain or breathing issues, no exertional sob or cough. She denies any new or unexplained bone aches or pains She denies any skin lesions or masses, oral sores lesions or infections. She denies any pains in the right breast- no masses. Review of Systems ROS 14 points performed, See HPI for exceptions Past Medical History: has a past medical history of Anxiety, Aortic valve insufficiency, Arrhythmia, Arthritis, Ascending aorta dilatation, Ascending aorta dilation, Breast cancer (Multi), Cerebral vascular accident (Multi), CHF (congestive heart failure) (Multi), Congestive heart failure (Multi) (0 12/01/2023), Coronary artery disease, Depression, Dizziness, GERD (gastroesophageal reflux disease),HOCM (hypertrophic obstructive cardiomyopathy) (Multi) (12/01/2023), transfusion of platelets, Hyperlipidemia, Hypertension, Illness, unspecified (05/13/2024), Irregular heart beat, Joint pain, Occlusion and stenosis of bilateral carotid arteries (12/01/2023), Old myocardial infarction, Other chestpain (12/01/2023), Presence of combination internal cardiac defibrillator (ICD) and pacemaker, Rhabdomyolysis (06/05/2024), Shortness of breath, Thrombocytopenia (06/05/2024), TIA (transient ischemic attack), Urgency of urination (03/15/2024), and Vision loss. Surgical History: has a past surgical history that includes Other surgical history (07/20/2019); Other surgical history (07/24/2019); Tonsillectomy; Hysterectomy; Cardiac catheterization; Coronary stent placement; Breast biopsy; Coronary artery bypass graft (2004); Insert / replace / remove pacemaker (2010); Aortic valve replacement (2004); Cardiac valve replacement; and Abdominal aortic aneurysmrepair (2004). Social History: reports that she quit smoking about 20 years ago. Her smoking use included cigarettes. She started smoking about 52 years ago. She has a 64 pack-year smoking history. She has never been exposed to tobacco smoke. She has never used smokeless tobacco. She reports that she does not currently use alcohol. She reports that she does not use drugs. Family History: Family History Problem Relation Name Age of Onset Breast cancer Mother Cancer Mother colon and breast Heart disease Father Breast cancer Sister Cancer Sister breast Family Oncology History: Cancer-related family history includes Breast cancer in her mother and sister; Cancer in her mother and sister. OBJECTIVE VS / Pain: BP 147/68 (BP Location: Right arm, Patient Position: Sitting, BP Cuff Size: Small infant) Pulse 60 Temp 36 C (96.8 F) (Temporal) Resp 19 Wt 50 kg (110 lb 3.7 oz) LMP (LMP Unknown) SpO2 95% BMI 21.87 kg/m BSA: 1.45 meters squared Pain Scale: 2 Performance Status: The ECOG performance scale today is ECO- Restricted in physically strenuous activity. Carries out light duty. Physical Exam Constitutional: thin, awake/alert/oriented x4, no distress, alert and cooperative EYES: Sclera clear ENMT: mucous membranes moist, no apparent injury, no lesions seen Head/Neck: Neck supple, no apparent injury, thyroid without mass or tenderness, No JVD, trachea midline, no bruits Respiratory / Thoracic: Patent airways, clear to all lobes, normal breath sounds with good chest expansion, thorax symmetric. Cardiovascular: Regular, rate and rhythm, Audible aortic valve replacement., 2+ equal pulses of theextremities, normal auscultated S 1and S 2. Palpable AICD/ Pacer Left upper chest wall GI: Nondistended, soft, non-tender, no rebound tenderness or guarding, no masses palpable, no organomegaly, +BS, no bruits Musculoskeletal: ROM intact, no joint swelling, no spinal tenderness Extremities: normal extremities, no cyanosis edema, contusions or wounds, no clubbing Neurological: alert and oriented x4, intact senses, motor, response and reflexes, normal strength Breast: No palpable masses in bilateral breasts Lymphatic: No cervical, supraclavicular, infraclavicular or axillary lymphadenopathy Psychological: Appropriate and talkative mood and behavior Skin: Warm and dry, no lesions, no rashes, no jaundice Diagnostic Results TRANSTHORACIC ECHOCARDIOGRAM REPORT Patient Name: LIZBETH Lewis Physician: [id number] Crow Feldman MD Study Date: 04/26/2025 Ordering Provider: [id number] MARCELO DAVEY MRN/PID: [id number] Fellow: Nurse: Date of /Age: 401/26/1955 [employer] Pay Technician: ALEJANDRA Hurley RDCS Gender assigned at F Additional Staff: : Height: 149.86 cm Admit Date: Weight: 52.16 kg Admission Status: Observation - STAT BSA / BMI: 1.46 m2 / 23.23 kg/m2 Blood Pressure: 98/44 mmHg Department Location: [facility] Study Type: TRANSTHORACIC ECHO (TTE) LIMITED Diagnosis/ICD: Nonrheumatic aortic (valve) stenosis-I35.0 Indication: S/p cardiotoxic chemotherapy CPT Code: Echo Limited-96306; Doppler Limited-63591; Color Doppler-56403 Patient History: Pertinent History: #21 Avalus Ultra AVR and #28 Hemiarch graft; A-fib, HLD, HTN, 2V CABG, aortic stenosis, breast CA, chemotherapy, ischemic cardiomyopathy. Study Detail: The following Echo studies were performed: 2D, M-Mode, Doppler and color flow. PHYSICIAN INTERPRETATION: Left Ventricle: Left ventricular ejection fraction is normal by visual estimate at 60-65%. There are no regional left ventricular wall motion abnormalities. The left ventricular cavity size is normal. There is normal septal and normal posterior left ventricular wall thickness. There is left ventricular concentric remodeling. Spectral Doppler shows a Grade II (pseudonormal pattern) of left ventricular diastolic filling with an elevated left atrial pressure. Left Atrium: The left atrium is mildly dilated. Right Ventricle: The right ventricle is normal in size. There is normal right ventricular global systolic function. Right Atrium: The right atrium is normal in size. Aortic Valve: There is a prosthetic aortic valve present. The aortic valve area by VTI is 1.18 cm with a peak velocity of 1.99 m/s. The peak and mean gradients are 14 mmHg and 10 mmHg, respectively with a dimensionless index of 0.63. There is no evidence of aortic valve regurgitation. Well seated bioprosthetic AVR with a peak gradient of 16mmHg. Mitral Valve: The mitral valve is normal in structure. There is trace to mild mitral valve regurgitation. The E Vmax is 1.31 m/s. Tricuspid Valve: The tricuspid valve is structurally normal. There is moderate tricuspid regurgitation. The Doppler estimated right ventricular systolic pressure (RVSP) is mildly elevated at 34 mmHg. Pulmonic Valve: The pulmonic valve is structurally normal. There is mild pulmonic valve regurgitation. Pericardium: There is no pericardial effusion noted. Aorta: The aortic root is normal. CONCLUSIONS: 1. Left ventricular ejection fraction is normal by visual estimate at 60-65%. 2. Spectral Doppler shows a Grade II (pseudonormal pattern) of left ventricular diastolic filling with an elevated left atrial pressure. 3. The left atrium is mildly dilated. 4. Moderate tricuspid regurgitation visualized. 5. The Doppler estimated RVSP is mildly elevated at 34 mmHg. 6. Well seated bioprosthetic AVR with a peak gradient of 16mmHg. === 06/21/25 === CT CHEST ABDOMEN PELVIS W IV CONTRAST - Impression - BREAST CANCER RESTAGING SCAN: 1. When compared to prior CT from 03/21/2025, no evidence of new or worsening metastatic disease. Otherwise, multiple prominent right axillary and right retropectoral lymph nodes, which are similar to prior CT, which demonstrated hypermetabolic activity and appears slightly larger in size on PET from 10/26/2024. Stable appearance of soft tissue density within the right deep lateral breast soft tissues, with a biopsy clip in place, corresponding to hypermetabolic lesion seen on prior PET. 2. Multiple sclerotic lesions are again seen within the ribs and predominantly thoracic vertebral bodies, left iliac wing, as described above, which appear less sclerotic when compared to CT from 03/21/2025, which demonstrated hypermetabolic activity on recent PET. A PET-CT can be obtained for better evaluation of extent of osseous metastatic disease. 3. Slightly worsened subpleural nodularity within the naqpb-luuizsz-klej-left lower lobes, could represent interstitial changes. No suspicious lung nodules. Recommend continued attention on follow-up. 4. Cholelithiasis, with stable mild intra and extrahepatic biliary dilatation. Recommend correlation with LFTs. I personally reviewed the images/study and I agree with the findings as stated. This study was interpreted at [facility], [place], [place]. MACRO: None Signed by: Esteban Andrade 06/23/2025 2:33 PM Dictation workstation: [id number] LABORATORY/PATHOLOGY DATA Infusion on 07/17/2025 Component Date Value Ref Range Status WBC 07/17/2025 4.7 4.4 - 11.3 x10*3/uL Final RBC 07/17/2025 2.94 (L) 4.00 - 5.20 x10*6/uL Final Hemoglobin 07/17/2025 9.7 (L) 12.0 - 16.0 g/dL Final Hematocrit 07/17/2025 29.5 (L) 36.0 - 46.0 % Final MCV 07/17/2025 100 80 - 100 fL Final MCH 07/17/2025 33.0 26.0 - 34.0 pg Final MCHC 07/17/2025 32.9 32.0 - 36.0 g/dL Final RDW 07/17/2025 16.2 (H) 11.5 - 14.5 % Final Platelets 07/17/2025 140 (L) 150 - 450 x10*3/uL Final Neutrophils % 07/17/2025 64.5 40.0 - 80.0 % Final Immature Granulocytes %, Automated 07/17/2025 0.4 0.0 - 0.9 % Final Lymphocytes % 07/17/2025 23.8 13.0 - 44.0 % Final Monocytes % 07/17/2025 9.4 2.0 - 10.0 % Final Eosinophils % 07/17/2025 1.7 0.0 - 6.0 % Final Basophils % 07/17/2025 0.2 0.0 - 2.0 % Final Neutrophils Absolute 07/17/2025 3.00 1.60 - 5.50 x10*3/uL Final Immature Granulocytes Absolute, Au* 07/17/2025 0.02 0.00 - 0.50 x10*3/uL Final Lymphocytes Absolute 07/17/2025 1.11 0.80 - 3.00 x10*3/uL Final Monocytes Absolute 07/17/2025 0.44 0.05 - 0.80 x10*3/uL Final Eosinophils Absolute 07/17/2025 0.08 0.00 - 0.40 x10*3/uL Final Basophils Absolute 07/17/2025 0.01 0.00 - 0.10 x10*3/uL Final Glucose 07/17/2025 147 (H) 74 - 99 mg/dL Final Sodium 07/17/2025 140 136 - 145 mmol/L Final Potassium 07/17/2025 3.2 (L) 3.5 - 5.3 mmol/L Final Chloride 07/17/2025 102 98 - 107 mmol/L Final Bicarbonate 07/17/2025 31 21 - 32 mmol/L Final Anion Gap 07/17/2025 10 10 - 20 mmol/L Final Urea Nitrogen 07/17/2025 13 6 - 23 mg/dL Final Creatinine 07/17/2025 0.70 0.50 - 1.05 mg/dL Final eGFR 07/17/2025 >90 >60 mL/min/1.73m*2 Final Calcium 07/17/2025 8.0 (L) 8.6 - 10.6 mg/dL Final Albumin 07/17/2025 3.6 3.4 - 5.0 g/dL Final Alkaline Phosphatase 07/17/2025 121 33 - 136 U/L Final Total Protein 07/17/2025 5.8 (L) 6.4 - 8.2 g/dL Final AST 07/17/2025 21 9 - 39 U/L Final Bilirubin, Total 07/17/2025 0.7 0.0 - 1.2 mg/dL Final ALT 07/17/2025 12 7 - 45 U/L Final CA 27.29 07/17/2025 30.5 0.0 - 38.6 U/mL Final Infusion on 06/26/2025 Component Date Value Ref Range Status WBC 06/26/2025 5.2 4.4 - 11.3 x10*3/uL Final RBC 06/26/2025 3.13 (L) 4.00 - 5.20 x10*6/uL Final Hemoglobin 06/26/2025 10.1 (L) 12.0 - 16.0 g/dL Final Hematocrit 06/26/2025 31.3 (L) 36.0 - 46.0 % Final MCV 06/26/2025 100 80 - 100 fL Final MCH 06/26/2025 32.3 26.0 - 34.0 pg Final MCHC 06/26/2025 32.3 32.0 - 36.0 g/dL Final RDW 06/26/2025 16.6 (H) 11.5 - 14.5 % Final Platelets 06/26/2025 164 150 - 450 x10*3/uL Final Neutrophils % 06/26/2025 63.0 40.0 - 80.0 % Final Immature Granulocytes %, Automated 06/26/2025 0.2 0.0 - 0.9 % Final Lymphocytes % 06/26/2025 25.9 13.0 - 44.0 % Final Monocytes % 06/26/2025 8.6 2.0 - 10.0 % Final Eosinophils % 06/26/2025 1.7 0.0 - 6.0 % Final Basophils % 06/26/2025 0.6 0.0 - 2.0 % Final Neutrophils Absolute 06/26/2025 3.29 1.60 - 5.50 x10*3/uL Final Immature Granulocytes Absolute, Au* 06/26/2025 0.01 0.00 - 0.50 x10*3/uL Final Lymphocytes Absolute 06/26/2025 1.35 0.80 - 3.00 x10*3/uL Final Monocytes Absolute 06/26/2025 0.45 0.05 - 0.80 x10*3/uL Final Eosinophils Absolute 06/26/2025 0.09 0.00 - 0.40 x10*3/uL Final Basophils Absolute 06/26/2025 0.03 0.00 - 0.10 x10*3/uL Final Glucose 06/26/2025 100 (H) 74 - 99 mg/dL Final Sodium 06/26/2025 139 136 - 145 mmol/L Final Potassium 06/26/2025 3.7 3.5 - 5.3 mmol/L Final Chloride 06/26/2025 103 98 - 107 mmol/L Final Bicarbonate 06/26/2025 30 21 - 32 mmol/L Final Anion Gap 06/26/2025 10 10 - 20 mmol/L Final Urea Nitrogen 06/26/2025 12 6 - 23 mg/dL Final Creatinine 06/26/2025 0.71 0.50 - 1.05 mg/dL Final eGFR 06/26/2025 >90 >60 mL/min/1.73m*2 Final Calcium 06/26/2025 8.2 (L) 8.6 - 10.6 mg/dL Final Albumin 06/26/2025 3.6 3.4 - 5.0 g/dL Final Alkaline Phosphatase 06/26/2025 113 33 - 136 U/L Final Total Protein 06/26/2025 6.0 (L) 6.4 - 8.2 g/dL Final AST 06/26/2025 23 9 - 39 U/L Final Bilirubin, Total 06/26/2025 0.5 0.0 - 1.2 mg/dL Final ALT 06/26/2025 14 7 - 45 U/L Final CA 27.29 06/26/2025 35.8 0.0 - 38.6 U/mL Final IMPRESSION/PLAN [id number] HER2+/ER-/WV- right sided breast cancer. Jun 2025 CT scans show stable disease. RTC in 6-7wks with Dr Marcelo Davey with repeat staging CT scans Has established with onco cardiology- Yany Page CNP. No clinical symptoms of heart failure. Due to HER2+ IV and worsening of ambulation and balance, orders placed for stat brain MRI. We have reviewed once resulted I will reach out with results. No evidence of any drug related intolerances or toxicities. Will continue with current regimen. Decreased appetite/wt loss. Family asking for appetite stimulator. Continued lengthy discussion to complte referral with supportive oncology, active orders and can be scheduled by family. At least 46 minutes of direct consultation was spent with the patient today reviewing her cancer care plan, cancer features, educating and answering questions regarding ongoing follow up, greater than 50% in counseling and coordination of care Thank you for the opportunity to be involved your care. We discussed the clinical significance of diagnosis, goals of care and treatment plan in detail. Please do not hesitate to reach out with any questions. Neli Cox MSN, MOTION PICTURE PROJECTIONIST, SENIOR QUALITY ASSURANCE SPECIALIST-C [facility] Division of Medical Oncology- Breast Collaborating Physician Dr. Marcelo Davey [facility] [place] [address] Available via Secure Chat Confidential Peer Review Document- Pantographer Privilege Privileged Pursuant to [place] Revised Code Section 2305.24, .25, .251 & .252 documented in this [facility] Work Phone: [phone]) 192-773510-14-2025 Instructions* Patient Instructions* WILEY Carlson - 07/31/2025 11:30 AM EDT Please complete referral to supportive oncology team- We placed this referral March 2025 due to weight loss and poor appetite issues Given worsening of balance and mobility with Metastatic breast cancer we will proceed with Brain MRI Dr Marcelo Davey follow up with repeat Scans 6-7 weeks Onco cardiology follow up 08/09/25 with repeat ECHO 08/03/25 Please call [phone] with any questions or concerns prior to your next office visit. documented in this [facility] Work Phone: 1(677) 426-742009-26-2025 Evaluation note* Diagnosis Onset Date Resolution Status Admit Date Anorexia acute June 9:50am Flu vaccine need acute Septembe r 2024 9:50am Anxiety and depression chronic Se ptember 2024 9:50am Breast cancer chronic June 192024 9:50am Hyperlipemia chronic July 132024 9:50am Hypertension chronic July 132024 9:50am Insomnia chronic June 9:50am Skin tear of forearm without complication acute August 07 2:45pm [facility] Work Phone: 1(314) 387-693509-26-2025 [facility] Internal Medicine [address] [place] [address] OFFICE VISIT Date of Service: 07/13/25 MR#: [id number] Acct: [id number] Name: LIZBETH NIXON Rep #: [id number] : 1955 Provider: Dr. 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 General Required: No Accompanied by: Self Is patient in pain?: No Allergies No Known Allergies Allergy (Verified 07/13/25 10:01) Medications ?Medication ?Instructions ?Recorded ?Confirmed ?Type aspirin 81 mg chewable tablet 81 mg PO DAILY 11/23/17 07/13/25 History melatonin 10 mg capsule 10 mg PO HS PRN sleep 07/13/25 History calcium carbonate 600 mg PO BID 06/30/1807/13 History nitroglycerin 0.4 mg sublingual See Rx Instructions .R oute 05/11/24 07/13/25 Rx tablet .COMPLEX #75 tabs handicap placard #1 ea 09/01/24 07/13/25 Rx cholecalciferol (vitamin D3) 50 50 mcg PO DAILY 07/13/25 History mcg (2,000 unit) capsule (Vitamin D3) sotalol 80 mg tablet (Betapace) 80 mg PO DAILY 5 07/13/25 History trazodone 100 mg tablet 100 mg PO QHS PRN insomnia # 90 tabs 02/19/25 07/13/25 Rx sertraline 100 mg tablet 100 mg PO QDAY #90 tabs 04/1707/13/25 Rx amlodipine 10 mg tablet 10 mg PO QDAY #90 tabs 05/0707/13/25 Rx lisinopril 40 mg tablet 40 mg PO DAILY #90 tabs 04/1807/13/25 Rx pantoprazole 40 mg tablet,delayed 40 mg PO BID #180 ta bs 05/07/25 07/13/25 Rx release rosuvastatin 20 mg tablet 20 mg PO DAILY #90 tabs 04/1807/13/25 Rx Have you fallen in the past year?: No Nurse's Note: yearly visit flu shot request [facility] Medical History (Updated 07/13/25 @ 11:[address] Daniela Fallon MD) Breast cancer Anorexia Neutropenic fever Gastroenteritis Breast cancer metastasized to axillary lymph node Nontraumatic psoas hematoma Hyperbilirubinemia Severe anemia Non-ST elevation DE (NSTEMI) Rhabdomyolysis Thrombocytopenia CAD (coronary artery disease) Chronic pain Atrial fibrillation ICD (implantable cardioverter-defibrillator) in place Urinary urgency Metastasis to bone Regional lymph node metastasis present Invasive ductal carcinoma of breast Aortic valve regurgitation due to aortic dilation Breast nodule Abnormal findings on imaging test Breast mass, right Skin mole Left knee pain Anxiety and depression Diarrhea Major depressive disorder, recurrent Health care maintenance Flu vaccine need Skin tags, multiple acquired Left hand pain History of cyst of breast History of stroke Heart valve problem GERD (gastroesophageal reflux disease) Hyperlipemia Hypertension Surgical History History of coronary artery bypass graft x 3 History of hysterectomy Cardiac defibrillator in place 4 stents cardiac rythem pacemaker triple bypass, valve replacement, nad aneurysm repair History of tonsillectomy Family History Mother CVA (cerebral vascular accident) Breast cancer, Onset Age: 35 Father Heart disease Sister Breast cancer, Onset Age: 50 Heart disease Hypertension Cancer lung Social History household members: none Smoking Status: Former smoker Tobacco: How many years used: 20 how long ago did patient quit smokin alcohol intake: never substance use type: does not use what type of physical activity do you participate in: none HPI HPI Chief Complaint: Follow-up chronic conditions Details: LIZBETH NIXON, is a 70-year-old female presenting for follow-up of her chronic conditions. The patient is undergoing chemotherapy for breast cancer which has metastasized to the bone. Following which, has had significant weight loss over the past year, with her Body Mass Index (BMI) decreasing from 30 to 22. The patient attributed her weight loss to chemotherapy-induced reduced appetite and taste changes, which make most foods unpalatable. She had an appointment scheduled [facility] but had to cancel due to illness. Sheplans to reschedule In terms of mood, the patient experiences intermittent depression but feels thather current dose ofZoloft is beneficial. She is also on trazodone 100 mg nightly as needed which she takes for insomnia as well. For the most part, it is somewhat helpful. Has some periods of difficulty initiating sleep. History of hypertension, blood pressure today at 128/72 mmHg. Taking amlodipineand lisinopril as prescribed. She continues follow-up with her court bailiff andoncology-court bailiff as well. No chest pain, palpitations or significant shortness of breath reported at this time. Other chronic medical conditions are stable. Attestation: Documentation on this patient encounter was supported using ambient scribe technology/ voice AI technology. The patient consented to recording for the purpose of documenting the encounter. Provider reviewed content of the generatednote prior to signature. ROS Const Constitutional: No body ache, excessive sweating, fatigue, fever(s), frequent falls, headache(s), snoring, weakness, weight change, sleep problems or change in appetite Eyes Eyes: No blurry vision, change in vision, discharge, vision loss, dry eyes, eye pain or Light sensitivity ENT ENT: No abnormal hearing, ear or mastoid pain, tinnitus, nasal congestion, headache(s), neck pain or sore throat Resp Respiratory: No cough, shortness of breath, snoring or wheezing Cardio Cardiology: No chest pain at rest, chest pain with exertion, excessive sweating,shortness of breath, dyspnea on exertion, lightheadedness, orthopnea or palpitations Gastro GI: No abdominal pain, change in bowel habits, constipation, cramping, diarrhea,nausea/dyspepsia orvomiting Genitourinary-Female: No burning urination, painful urination, urinary incontinence, urinary frequency, blood in urine, abnormal periods or pelvic pain Musc Musculoskeletal: No abnormal gait, joint pain, back pain, limited range of motion, neck pain, numbness, stiffness, tingling or Arthritis Skin Skin: No dry skin, redness, lesions, itchy eyes, rash or wounds Neuro Neurology: No abnormal gait, abnormal hearing, abnormal speech, dizziness, weakness, frequent falls, headache(s), memory loss, numbness or tingling Psych Psychiatric: No anxiety, No change in appetite, No depression, No memory loss and No Thoughts of harming yourself/Others Endo Endocrine: No cold intolerance, excessive sweating, fatigue, flushing, heat intolerance, increased thirst/drinking, increased hunger or weight change Aller/Imm Allergy/Immunologic: No itchy eyes, seasonal allergy symptoms, hives or wheezing Jose/Lymp Hematologic/Lymphatic: No easy bleeding, easy bruising or enlarged lymph nodes Exam Const General: cooperative, comfortable and no acute distress Orientation: alert, awake and oriented x3 HENMT Head: normal to inspection, normocephalic and atraumatic Ears: hearing grossly normal bilaterally Neck Neck: normal visual inspection, full ROM and supple Resp Effort & Inspection: normal respiratory effort and able to speak in complete sentences Auscultation: Bilateral: Clear to Auscultation Cardio Rate: regular rate Rhythm: regular rhythm Heart Sounds: S1 normal, S2 normal and murmur GI Palpation: soft (Nontender, no palpable organomegaly.) Neuro General: patient alert, patient awake, patient oriented x3, moves all extremities and CN's II-XI intact bilaterally Extrem General: no clubbing, cyanosis or edema Psych Appearance: grossly normal Mental Status: mental status grossly normal Mood: congruent mood Affect: normal affect Immunizations Fluad 65yr up(PF)45 mcg(15 mcgx3)/0.5 mL intramuscular syringe Performing Provider: Daniela Fallon MD Performing Location: [facility] Administered by: Cami Cardoso on 07/13/25 10:23 Dose Route Admin Location Dispensed Lot Number Expiration Date Pack age NDC NDC [employer] 45 mcg IM Right Arm (SQ) 0.5 mL [id number] 02/12/26 [id number] [employer]. VIS Given Date VIS Provided VIS Publication Date 07/13/25 Single Vaccine 24 Eligibility Eligibility Date Funding Source Not Applicable Administration Comments: injection given sesar patient tolerated well Coding Level of Care Code Off vis,est,level 4 Diagnoses Anorexia R63.0 Malignant neoplasm of female breast, unspecified estrogen receptor status, unspecified laterality, unspecified site of breast C50.919 Breast location: unspecified site of breast Estrogen receptor status: unspecified Patient sex: female Laterality: unspecified laterality Anxiety and depression F41.9; F32.A Insomnia, unspecified type G47.00 Insomnia type: unspecified Primary hypertension I10 Hypertension type: primary hypertension Hyperlipemia E78.5 Flu vaccine need Z23 Assessment and Plan Assessment and Plan (1) Anorexia: Status: Acute Plan: While her BMI is within range, she is down from a BMI of 30 and does endorse poor appetite. Plans to reschedule with the dietitian, I agree with this. Discussed the use of protein supplements like Ensure or Premier to provide additional calories and nutrients. Suggested trying different supplement types to find a palatable option. (2) Breast cancer: Status: Chronic Qualifiers: Breast location: unspecified site of breast Estrogen receptor status: unspecified Patient sex: female Laterality: unspecified laterality Qualified Code(s): C50.919 - Malignant neoplasm of unspecifiedsite of unspecified female breast Plan: Metastatic. Following up with oncology/radiation oncology. Continue current management. Will reviewrecords. (3) Anxiety and depression: Status: Chronic Plan: Overall, doing okay on Zoloft at current dose. Continue Zoloft 100 mg daily. (4) Insomnia: Status: Chronic Qualifiers: Insomnia type: unspecified Qualified Code(s): G47.00 - Insomnia, unspecified Plan: Continue trazodone as needed. Sleep hygiene and other supportive measures are also recommended. (5) Hypertension: Status: Chronic Qualifiers: Hypertension type: primary hypertension Qualified Code(s): I10 - Essential (primary) hypertension Plan: Good control. Blood pressure today as above. Continue amlodipine 10 mg daily, lisinopril 40 mg daily, dietary and lifestyle modifications. (6) Hyperlipemia: Status: Chronic Plan: Continue rosuvastatin 20 mg daily, dietary and lifestyle modifications. (7) Flu vaccine need: Status: Acute Plan: Flu vaccine given. This note was generated with Tivraation software. It may contain incorrectwords, spelling, and punctuation that were not noted in checking the note beforesigning. Orders: Orders Influenza Immunization Today Z23 - Encounter for immunization Patient Instructions: - Reschedule your dietitian appointment and discuss nutritional options. - Try various protein supplements with your meals and see what you like. - Continue using amlodipine and lisinopril as prescribed for blood pressure management. - Take Zoloft and trazodone as discussed; monitor your mood and sleep quality. - Keep all healthcare follow-ups, including cardiology and oncology appointments. - Seek medical attention if you experience any concerning symptoms such as severe weight loss, worsening mood, or new or worsening numbness. Clinical Quality Measures Falls Risk Screening/Assistive Devices Have you fallen in the past year?: No 07/13/25 1311 yvonne MURILLO> Date _ Daniela Fallon MD Cosigner Signature: Date (if applicable) CC: ~ [facility]09-10-2025 History of Present illness Narrative* Marcelo Davey MD - 06/27/2025 9:40 AM EDT Images from the original note were not included. Breast Medical Oncology Clinic Location: [facility] BREAST CANCER DIAGNOSIS Malignant neoplasm of lower-outer quadrant of right breast of female, estrogen receptor negative, Clinical: Stage IIB (cT2(m), cN1(f), cM0, G3, ER-, WV-, HER2+) Malignant neoplasm of lower-outer quadrant of right breast of female, estrogen receptor negative, Pathologic: Stage IV (cM1, ER-, WV-, HER2+) ONCOLOGIC HISTORY S/p 3 cycles of dose reduced gemcitabine/carboplatin days 1 and 8 q21 days from 03/30/24 to 05/31/24 Trastuzumab single agent 10/09/24 and 10/30/24 CURRENT THERAPY Gemcitabine/trastuzumab/pertuzumab since 11/30/24 HISTORY OF PRESENT ILLNESS Lizbeth Nixon is a 70 y.o. woman with incidentally found breast cancer after chest CT for heart surgery work up (she has aortic valve disease) found breast mass and axillary adenopathy in the right breast. Biopsy of both revealed HER2+, ER/WV- breast cancer. Other outside staging workup raised the possibility of oligo bone metastases however the data was unconvincing. Outside PET/CT vaguely showed two areas in the upper spine but MRI suggests that this could be degenerative disease. Bone scan was definitely negative for bone mets. Cardio- oncology advised against Her2 mAB therapy as she has little cardiac reserve and will need to have aortic valve repair first. She has been on gem/carbo with clinical response in breast. She came back post cardiac surgery on 08/02/24. Restaging at that timerevealed re-growth of breast mass and more obvious FDG uptake in spine. After cleared by cardiology patient received gemcitabine/trastuzumab/pertuzumab on 11/30/24. CT scans show response. No issues after we eliminated day 8 gemcitabine. Since last visit gaining some weight. CT scans show stable disease. Review of Systems Constitutional: Positive for appetite change and fatigue. Negative for chills, diaphoresis and unexpected weight change (wt loss). HENT: Negative. Negative for hearing loss and lump/mass. Eyes: Negative. Negative for eye problems and icterus. Respiratory: Negative. Negative for chest tightness, cough, hemoptysis, shortness of breath and wheezing. Cardiovascular: Negative. Negative for chest pain, leg swelling and palpitations. Gastrointestinal: Negative for abdominal distention, abdominal pain, blood in stool, constipation, diarrhea and nausea. Endocrine: Negative for hot flashes. Genitourinary: Negative for bladder incontinence, difficulty urinating, dyspareunia, dysuria, frequency and hematuria. Musculoskeletal: Positive for arthralgias and back pain. Negative for gait problem and myalgias. Skin: Negative for rash. Neurological: Negative for dizziness, extremity weakness, gait problem, headaches, numbness and seizures. Hematological: Negative for adenopathy. Does not bruise/bleed easily. Psychiatric/Behavioral: Negative for confusion, depression and sleep disturbance. The patient is not nervous/anxious. All other systems reviewed and are negative. Past Medical History: has a past medical history of Anxiety, Aortic valve insufficiency, Arrhythmia, Arthritis, Ascending aorta dilatation, Ascending aorta dilation, Breast cancer, Cerebral vascular accident (Multi), CHF (congestive heart failure), Congestive heart failure (12/01/2023), Coronary art franklin disease, Depression, Dizziness, GERD (gastroesophageal reflux disease), HOCM (hypertrophic obstructive cardiomyopathy) (Multi) (12/01/2023), transfusion of platelets, Hyperlipidemia, Hypertension, Illness, unspecified (05/13/2024), Irregular heart beat, Joint pain, Occlusion and stenosis of bilateral carotid arteries (12/01/2023), Old myocardial infarction, Other chest pain (12/01/2023), Presence of combination internal cardiac defibrillator (ICD) and pacemaker, Rhabdomyolysis (06/05/2024),Shortness of breath, Thrombocytopenia (06/05/2024), TIA (transient ischemic attack), Urgency of urination (03/15/2024), and Vision loss. Surgical History: has a past surgical history that includes Other surgical history (07/20/2019); Other surgical history (07/24/2019); Tonsillectomy; Hysterectomy; Cardiac catheterization; Coronary stent placement; Breast biopsy; Coronary artery bypass graft (2004); Insert / replace / remove pacemaker (2010); Aortic valve replacement (2004); Cardiac valve replacement; and Abdominal aortic aneurysmrepair (2004). Social History: reports that she quit smoking about 20 years ago. Her smoking use included cigarettes. She started smoking about 52 years ago. She has a 64 pack-year smoking history. She has never been exposed to tobacco smoke. She has never used smokeless tobacco. She reports that she does not currently use alcohol. She reports that she does not use drugs. Family History: Family History Problem Relation Name Age of Onset Breast cancer Mother Cancer Mother colon and breast Heart disease Father Breast cancer Sister Cancer Sister breast Family Oncology History: Cancer-related family history includes Breast cancer in her mother and sister; Cancer in her mother and sister. OBJECTIVE VS / Pain: BP 148/67 (BP Location: Right arm, Patient Position: Sitting, BP Cuff Size: Adult) Pulse 68 Temp 36.6 C (97.8 F) (Temporal) Resp 18 Wt 52.3 kg (115 lb 4.8 oz) LMP (LMP Unknown) SpO2 97% BMI 22.88 kg/m BSA: 1.48 meters squared Pain Scale: 2 Performance Status: The ECOG performance scale today is ECO- Restricted in physically strenuous activity. Carries out light duty. Physical Exam Vitals reviewed. Constitutional: General: She is not in acute distress. Appearance: She is not ill-appearing, toxic-appearing or diaphoretic. HENT: Nose: No congestion or rhinorrhea. Mouth/Throat: Pharynx: No posterior oropharyngeal erythema. Cardiovascular: Rate and Rhythm: Normal rate and regular rhythm. Pulses: Normal pulses. Heart sounds: Normal heart sounds. No murmur (+loud aortic murmur) heard. No gallop. Pulmonary: Breath sounds: Normal breath sounds. Abdominal: General: There is no distension. Palpations: There is no mass. Tenderness: There is no abdominal tenderness. Musculoskeletal: General: No swelling. Cervical back: No rigidity. Right lower leg: No edema. Left lower leg: No edema. Lymphadenopathy: Cervical: No cervical adenopathy. Skin: General: Skin is warm. Coloration: Skin is not cyanotic. Findings: No bruising, ecchymosis or erythema. Neurological: General: No focal deficit present. Mental Status: She is oriented to person, place, and time. Cranial Nerves: Cranial nerves 2-12 are intact. Motor: Motor function is intact. Psychiatric: Attention and Perception: Attention and perception normal. Mood and Affect: Mood and affect normal. Behavior: Behavior normal. Thought Content: Thought content normal. Judgment: Judgment normal. Diagnostic Results TRANSTHORACIC ECHOCARDIOGRAM REPORT Patient Name: LIZBETH NIXON Reading Physician: [id number] Crow Feldman MD Study Date: 04/26/2025 Ordering Provider: [id number] MARCELO DAVEY MRN/PID: [id number] Fellow: Nurse: Date of /Age: 401/26/1955 [employer] Pay Technician: Frandy ismon RDCS, RCS Gender assigned at F Additional Staff: : Height: 149.86 cm Admit Date: Weight: 52.16 kg Admission Status: Observation - STAT BSA / BMI: 1.46 m2 / 23.23 kg/m2 Blood Pressure: 98/44 mmHg Department Location: [facility] Study Type: TRANSTHORACIC ECHO (TTE) LIMITED Diagnosis/ICD: Nonrheumatic aortic (valve) stenosis-I35.0 Indication: S/p cardiotoxic chemotherapy CPT Code: Echo Limited-70258; Doppler Limited-77033; Color Doppler-50381 Patient History: Pertinent History: #21 Avalus Ultra AVR and #28 Hemiarch graft; A-fib, HLD, HTN, 2V CABG, aortic stenosis, breast CA, chemotherapy, ischemic cardiomyopathy. Study Detail: The following Echo studies were performed: 2D, M-Mode, Doppler and color flow. PHYSICIAN INTERPRETATION: Left Ventricle: Left ventricular ejection fraction is normal by visual estimate at 60-65%. There are no regional left ventricular wall motion abnormalities. The left ventricular cavity size is normal. There is normal septal and normal posterior left ventricular wall thickness. There is left ventricular concentric remodeling. Spectral Doppler shows a Grade II (pseudonormal pattern) of left ventricular diastolic filling with an elevated left atrial pressure. Left Atrium: The left atrium is mildly dilated. Right Ventricle: The right ventricle is normal in size. There is normal right ventricular global systolic function. Right Atrium: The right atrium is normal in size. Aortic Valve: There is a prosthetic aortic valve present. The aortic valve area by VTI is 1.18 cm with a peak velocity of 1.99 m/s. The peak and mean gradients are 14 mmHg and 10 mmHg, respectively with a dimensionless index of 0.63. There is no evidence of aortic valve regurgitation. Well seated bioprosthetic AVR with a peak gradient of 16mmHg. Mitral Valve: The mitral valve is normal in structure. There is trace to mild mitral valve regurgitation. The E Vmax is 1.31 m/s. Tricuspid Valve: The tricuspid valve is structurally normal. There is moderate tricuspid regurgitation. The Doppler estimated right ventricular systolic pressure (RVSP) is mildly elevated at 34 mmHg. Pulmonic Valve: The pulmonic valve is structurally normal. There is mild pulmonic valve regurgitation. Pericardium: There is no pericardial effusion noted. Aorta: The aortic root is normal. CONCLUSIONS: 1. Left ventricular ejection fraction is normal by visual estimate at 60-65%. 2. Spectral Doppler shows a Grade II (pseudonormal pattern) of left ventricular diastolic filling with an elevated left atrial pressure. 3. The left atrium is mildly dilated. 4. Moderate tricuspid regurgitation visualized. 5. The Doppler estimated RVSP is mildly elevated at 34 mmHg. 6. Well seated bioprosthetic AVR with a peak gradient of 16mmHg. === 06/21/25 === CT CHEST ABDOMEN PELVIS W IV CONTRAST - Impression - BREAST CANCER RESTAGING SCAN: 1. When compared to prior CT from 03/21/2025, no evidence of new or worsening metastatic disease. Otherwise, multiple prominent right axillary and right retropectoral lymph nodes, which are similar to prior CT, which demonstrated hypermetabolic activity and appears slightly larger in size on PET from 10/26/2024. Stable appearance of soft tissue density within the right deep lateral breast soft tissues, with a biopsy clip in place, corresponding to hypermetabolic lesion seen on prior PET. 2. Multiple sclerotic lesions are again seen within the ribs and predominantly thoracic vertebral bodies, left iliac wing, as described above, which appear less sclerotic when compared to CT from 03/21/2025, which demonstrated hypermetabolic activity on recent PET. A PET-CT can be obtained for better evaluation of extent of osseous metastatic disease. 3. Slightly worsened subpleural nodularity within the xppst-kejjgvm-hzyn-left lower lobes, could represent interstitial changes. No suspicious lung nodules. Recommend continued attention on follow-up. 4. Cholelithiasis, with stable mild intra and extrahepatic biliary dilatation. Recommend correlation with LFTs. I personally reviewed the images/study and I agree with the findings as stated. This study was interpreted at [facility], [place], [place]. MACRO: None Signed by: Esteban Andrade 06/23/2025 2:33 PM Dictation workstation: [id number] LABORATORY/PATHOLOGY DATA Infusion on 06/26/2025 Component Date Value Ref Range Status WBC 06/26/2025 5.2 4.4 - 11.3 x10*3/uL Final RBC 06/26/2025 3.13 (L) 4.00 - 5.20 x10*6/uL Final Hemoglobin 06/26/2025 10.1 (L) 12.0 - 16.0 g/dL Final Hematocrit 06/26/2025 31.3 (L) 36.0 - 46.0 % Final MCV 06/26/2025 100 80 - 100 fL Final MCH 06/26/2025 32.3 26.0 - 34.0 pg Final MCHC 06/26/2025 32.3 32.0 - 36.0 g/dL Final RDW 06/26/2025 16.6 (H) 11.5 - 14.5 % Final Platelets 06/26/2025 164 150 - 450 x10*3/uL Final Neutrophils % 06/26/2025 63.0 40.0 - 80.0 % Final Immature Granulocytes %, Automated 06/26/2025 0.2 0.0 - 0.9 % Final Lymphocytes % 06/26/2025 25.9 13.0 - 44.0 % Final Monocytes % 06/26/2025 8.6 2.0 - 10.0 % Final Eosinophils % 06/26/2025 1.7 0.0 - 6.0 % Final Basophils % 06/26/2025 0.6 0.0 - 2.0 % Final Neutrophils Absolute 06/26/2025 3.29 1.60 - 5.50 x10*3/uL Final Immature Granulocytes Absolute, Au* 06/26/2025 0.01 0.00 - 0.50 x10*3/uL Final Lymphocytes Absolute 06/26/2025 1.35 0.80 - 3.00 x10*3/uL Final Monocytes Absolute 06/26/2025 0.45 0.05 - 0.80 x10*3/uL Final Eosinophils Absolute 06/26/2025 0.09 0.00 - 0.40 x10*3/uL Final Basophils Absolute 06/26/2025 0.03 0.00 - 0.10 x10*3/uL Final Glucose 06/26/2025 100 (H) 74 - 99 mg/dL Final Sodium 06/26/2025 139 136 - 145 mmol/L Final Potassium 06/26/2025 3.7 3.5 - 5.3 mmol/L Final Chloride 06/26/2025 103 98 - 107 mmol/L Final Bicarbonate 06/26/2025 30 21 - 32 mmol/L Final Anion Gap 06/26/2025 10 10 - 20 mmol/L Final Urea Nitrogen 06/26/2025 12 6 - 23 mg/dL Final Creatinine 06/26/2025 0.71 0.50 - 1.05 mg/dL Final eGFR 06/26/2025 >90 >60 mL/min/1.73m*2 Final Calcium 06/26/2025 8.2 (L) 8.6 - 10.6 mg/dL Final Albumin 06/26/2025 3.6 3.4 - 5.0 g/dL Final Alkaline Phosphatase 06/26/2025 113 33 - 136 U/L Final Total Protein 06/26/2025 6.0 (L) 6.4 - 8.2 g/dL Final AST 06/26/2025 23 9 - 39 U/L Final Bilirubin, Total 06/26/2025 0.5 0.0 - 1.2 mg/dL Final ALT 06/26/2025 14 7 - 45 U/L Final CA 27.29 06/26/2025 35.8 0.0 - 38.6 U/mL Final Infusion on 06/05/2025 Component Date Value Ref Range Status WBC 06/05/2025 4.4 4.4 - 11.3 x10*3/uL Final nRBC 06/05/2025 Final RBC 06/05/2025 3.25 (L) 4.00 - 5.20 x10*6/uL Final Hemoglobin 06/05/2025 10.4 (L) 12.0 - 16.0 g/dL Final Hematocrit 06/05/2025 32.0 (L) 36.0 - 46.0 % Final MCV 06/05/2025 99 80 - 100 fL Final MCH 06/05/2025 32.0 26.0 - 34.0 pg Final MCHC 06/05/2025 32.5 32.0 - 36.0 g/dL Final RDW 06/05/2025 17.1 (H) 11.5 - 14.5 % Final Platelets 06/05/2025 193 150 - 450 x10*3/uL Final Neutrophils % 06/05/2025 59.7 40.0 - 80.0 % Final Immature Granulocytes %, Automated 06/05/2025 0.2 0.0 - 0.9 % Final Lymphocytes % 06/05/2025 26.1 13.0 - 44.0 % Final Monocytes % 06/05/2025 11.7 2.0 - 10.0 % Final Eosinophils % 06/05/2025 2.1 0.0 - 6.0 % Final Basophils % 06/05/2025 0.2 0.0 - 2.0 % Final Neutrophils Absolute 06/05/2025 2.60 1.60 - 5.50 x10*3/uL Final Immature Granulocytes Absolute, Au* 06/05/2025 0.01 0.00 - 0.50 x10*3/uL Final Lymphocytes Absolute 06/05/2025 1.14 0.80 - 3.00 x10*3/uL Final Monocytes Absolute 06/05/2025 0.51 0.05 - 0.80 x10*3/uL Final Eosinophils Absolute 06/05/2025 0.09 0.00 - 0.40 x10*3/uL Final Basophils Absolute 06/05/2025 0.01 0.00 - 0.10 x10*3/uL Final Glucose 06/05/2025 91 74 - 99 mg/dL Final Sodium 06/05/2025 139 136 - 145 mmol/L Final Potassium 06/05/2025 4.5 3.5 - 5.3 mmol/L Final Chloride 06/05/2025 101 98 - 107 mmol/L Final Bicarbonate 06/05/2025 29 21 - 32 mmol/L Final Anion Gap 06/05/2025 14 10 - 20 mmol/L Final Urea Nitrogen 06/05/2025 12 6 - 23 mg/dL Final Creatinine 06/05/2025 0.76 0.50 - 1.05 mg/dL Final eGFR 06/05/2025 84 >60 mL/min/1.73m*2 Final Calcium 06/05/2025 8.4 (L) 8.6 - 10.6 mg/dL Final Albumin 06/05/2025 3.6 3.4 - 5.0 g/dL Final Alkaline Phosphatase 06/05/2025 129 33 - 136 U/L Final Total Protein 06/05/2025 6.2 (L) 6.4 - 8.2 g/dL Final AST 06/05/2025 29 9 - 39 U/L Final Bilirubin, Total 06/05/2025 0.6 0.0 - 1.2 mg/dL Final ALT 06/05/2025 21 7 - 45 U/L Final CA 27.29 06/05/2025 50.9 (H) 0.0 - 38.6 U/mL Final IMPRESSION/PLAN [id number] HER2+/ER-/WV- right sided breast cancer. CT scans show stable disease. RTC in 6 wks with neli and [address] scans Decreased appetite/wt loss. Family asking for appetite stimulator. Will refer to supportive oncology I personally spent over half of a total 35 minutes face to face with the patient and family in counseling and discussion and/or coordination of care as described above. Marcelo Davey MD Director of Breast Cancer Medical Oncology Research Program [facility] [employer] environmental communications specialist [address] [place] [address] [email or web address] documented in this [facility] Work Phone: [phone]) 589-402109-10-2025 Instructions* Patient Instructions* Pearl Mason RN - 06/27/2025 9:40 AM EDT Please call us at [phone] then follow the prompts. You may also contact your nurse or doctor with non-urgent issues by sending a MyChart message. Reminders Medicine refills: call or send a MyChart message to request medicine refills at least 5 to 7 days before you run out. Labs: You will need labs drawn with a nurse, through your mediport. See My Chart for appointment details. 6 wk follow-up with Neli Durbin chemo/herceptin/perjeta Repeat CT scans in [address] Davey documented in this [facility] Work Phone: 1(380) 938-347407-30-2025 History of Present illness Narrative* Neli Cox APRN-CUSTOM STOCK MAKER - 05/16/2025 9:00 AM EDT Images from the original note were not included. Breast Medical Oncology Clinic Location: [facility] BREAST CANCER DIAGNOSIS Malignant neoplasm of lower-outer quadrant of right breast of female, estrogen receptor negative, Clinical: Stage IIB (cT2(m), cN1(f), cM0, G3, ER-, WV-, HER2+) Malignant neoplasm of lower-outer quadrant of right breast of female, estrogen receptor negative, Pathologic: Stage IV (cM1, ER-, WV-, HER2+) ONCOLOGIC HISTORY Dose reduced gemcitabine/carboplatin days 1 and 8 q21 days from 03/30/24 to 05/31/24 Trastuzumab single agent 10/09/24 and 10/30/24 : Incidentally found breast cancer after chest CT for heart surgery work up (she has aortic valve disease) found breast mass and axillary adenopathy in the right breast. Biopsy of both revealed HER2+, ER/WV- breast cancer. Other outside staging workup raised the possibility of oligo bone metastases however the data was unconvincing. Outside PET/CT vaguely showed two areas in the upper spine but MRI suggests that this could be degenerative disease. Bone scan was definitely negative for bone mets. Cardio-oncology advised against Her2 mAB therapy as she has little cardiac reserve until able to complete aortic valve repair first. Was on gem/carbo with clinical response in breast March-May 2024 She came back post cardiac surgery on 08/02/24. Restaging at that time revealed re-growth ofbreast mass and more obvious FDG uptake in spine. Cleared by Cards for gemcitabine/trastuzumab/pertuzumab CURRENT THERAPY Gemcitabine/trastuzumab/pertuzumab since , changed to day 1 only after Cycle One which was a day 1 and Day 8 due profound neutropenia and thrombocytopenia HISTORY OF PRESENT ILLNESS Lizbeth Nixon is a 70 y.o. woman with IV breast cancer here for treatment follow up. Today I have reviewed with the patient I will be conducting a clinical physical breast exam. Patient has declined a second medical professional today during the exam as a chapperone. She is accompanied today by samuel Delacruz. She has continued on current regimen every 3 weeks. She feels well and feels this treatment is tolerable. She reports fatigue is stable and is manageable. She is able to complete ADL's . She reports she is sleeping well. She reports continued lower appetite but weight has stabilized at 111-112 LBS.No nausea or vomiting and normal bowels and denies any diarrhea She denies any chest pain or breathing issues, no exertional sob or cough. She denies any vision changes but is very sun sensitive. She denies any headache issues, dizziness.She reports baseline issue with intermittent balance issues. She denies any falls. She denies any new or unexplained bone aches or pains She denies any skin lesions or masses, oral sores lesions or infections. She denies any pains in the right breast- no masses. Review of Systems ROS 14 points performed, See HPI for exceptions Past Medical History: has a past medical history of Anxiety, Aortic valve insufficiency, Arrhythmia, Arthritis, Ascending aorta dilatation, Ascending aorta dilation, Breast cancer, Cerebral vascular accident (Multi), CHF (congestive heart failure), Congestive heart failure (12/01/2023), Coronary art franklin disease, Depression, Dizziness, GERD (gastroesophageal reflux disease), HOCM (hypertrophic obstructive cardiomyopathy) (Multi) (12/01/2023), transfusion of platelets, Hyperlipidemia, Hypertension, Illness, unspecified (05/13/2024), Irregular heart beat, Joint pain, Occlusion and stenosis of bilateral carotid arteries (12/01/2023), Old myocardial infarction, Other chest pain (12/01/2023), Presence of combination internal cardiac defibrillator (ICD) and pacemaker, Rhabdomyolysis (06/05/2024),Shortness of breath, Thrombocytopenia (06/05/2024), TIA (transient ischemic attack), Urgency of urination (03/15/2024), and Vision loss. Surgical History: has a past surgical history that includes Other surgical history (07/20/2019); Other surgical history (07/24/2019); Tonsillectomy; Hysterectomy; Cardiac catheterization; Coronary stent placement; Breast biopsy; Coronary artery bypass graft (2004); Insert / replace / remove pacemaker (2010); Aortic valve replacement (2004); Cardiac valve replacement; and Abdominal aortic aneurysmrepair (2004). Social History: reports that she quit smoking about 20 years ago. Her smoking use included cigarettes. She started smoking about 52 years ago. She has a 64 pack-year smoking history. She has never been exposed to tobacco smoke. She has never used smokeless tobacco. She reports that she does not currently use alcohol. She reports that she does not use drugs. Family History: Family History Problem Relation Name Age of Onset Breast cancer Mother Cancer Mother colon and breast Heart disease Father Breast cancer Sister Cancer Sister breast Family Oncology History: Cancer-related family history includes Breast cancer in her mother and sister; Cancer in her mother and sister. OBJECTIVE VS / Pain: BP 133/73 (BP Location: Right arm, Patient Position: Sitting, BP Cuff Size: Small adult) Pulse 64 Temp 36.4 C (97.5 F) (Temporal) Wt 52.2 kg (115 lb) LMP (LMP Unknown) SpO2 94% BMI 22.82 kg/m BSA: 1.48 meters squared Pain Scale: 0 Performance Status: The ECOG performance scale today is ECO- Restricted in physically strenuous activity. Carries out light duty. Physical Exam Constitutional: Well developed, awake/alert/oriented x4, no distress, alert and cooperative EYES: Sclera clear ENMT: mucous membranes moist, no apparent injury, no lesions seen Head/Neck: Neck supple, no apparent injury, thyroid without mass or tenderness, No JVD, trachea midline, no bruits Respiratory / Thoracic: Patent airways, clear to all lobes, normal breath sounds with good chest expansion, thorax symmetric. Cardiovascular: Regular, rate and rhythm, Audible aortic valve replacement., 2+ equal pulses of theextremities, normal auscultated S 1and S 2. Palpable AICD/ Pacer Left upper chest wall GI: Nondistended, soft, non-tender, no rebound tenderness or guarding, no masses palpable, no organomegaly, +BS, no bruits Musculoskeletal: ROM intact, no joint swelling, normal strength, no spinal tenderness Extremities: normal extremities, no cyanosis edema, contusions or wounds, no clubbing Neurological: alert and oriented x4, intact senses, motor, response and reflexes, normal strength Breast: No palpable masses in bilateral breasts Lymphatic: No cervical, supraclavicular, infraclavicular or axillary lymphadenopathy Psychological: Appropriate and talkative mood and behavior Skin: Warm and dry, no lesions, no rashes, no jaundice Diagnostic Results === 03/21/25 === CT CHEST ABDOMEN PELVIS W IV CONTRAST - Impression - CHEST: 1. No new or worsening metastatic disease is detected. 2. Previously seen hypermetabolic right axillary adenopathy is less conspicuous on the current examination, however direct comparison is limited due to differences in modalities. 3. Soft tissue density within the right deep lateral breast soft tissues measuring up to 3.4 x 1.2 cm appears to correlate to region of previously seen hypermetabolic focus on comparison exam 10/26/2024. Repeat PET-CT may be obtained for assessment of the metabolic activity within this lesion. Redemonstration of similar appearing osseous metastatic disease. ABDOMEN-PELVIS: 1. No new subdiaphragmatic metastatic disease. Signed by: Renny Reveles 03/22/2025 10:56 AM Dictation workstation: [id number] TRANSTHORACIC ECHOCARDIOGRAM REPORT Patient Name: LIZBETH Lewis Physician: [id number] Crow Feldman MD Study Date: 04/26/2025 Ordering Provider: [id number] MARCELO DAVEY MRN/PID: [id number] Fellow: Nurse: Date of /Age: 401/26/1955 / [employer] Pay Technician: Frnady Leova years RDCS, RCS Gender assigned at F Additional Staff: : Height: 149.86 cm Admit Date: Weight: 52.16 kg Admission Status: Observation - STAT BSA / BMI: 1.46 m2 / 23.23 kg/m2 Blood Pressure: 98/44 mmHg Department Location: [facility] Study Type: TRANSTHORACIC ECHO (TTE) LIMITED Diagnosis/ICD: Nonrheumatic aortic (valve) stenosis-I35.0 Indication: S/p cardiotoxic chemotherapy CPT Code: Echo Limited-04252; Doppler Limited-31534; Color Doppler-59215 Patient History: Pertinent History: #21 Avalus Ultra AVR and #28 Hemiarch graft; A-fib, HLD, HTN, 2V CABG, aortic stenosis, breast CA, chemotherapy, ischemic cardiomyopathy. Study Detail: The following Echo studies were performed: 2D, M-Mode, Doppler and color flow. PHYSICIAN INTERPRETATION: Left Ventricle: Left ventricular ejection fraction is normal by visual estimate at 60-65%. There are no regional left ventricular wall motion abnormalities. The left ventricular cavity size is normal. There is normal septal and normal posterior left ventricular wall thickness. There is left ventricular concentric remodeling. Spectral Doppler shows a Grade II (pseudonormal pattern) of left ventricular diastolic filling with an elevated left atrial pressure. Left Atrium: The left atrium is mildly dilated. Right Ventricle: The right ventricle is normal in size. There is normal right ventricular global systolic function. Right Atrium: The right atrium is normal in size. Aortic Valve: There is a prosthetic aortic valve present. The aortic valve area by VTI is 1.18 cm with a peak velocity of 1.99 m/s. The peak and mean gradients are 14 mmHg and 10 mmHg, respectively with a dimensionless index of 0.63. There is no evidence of aortic valve regurgitation. Well seated bioprosthetic AVR with a peak gradient of 16mmHg. Mitral Valve: The mitral valve is normal in structure. There is trace to mild mitral valve regurgitation. The E Vmax is 1.31 m/s. Tricuspid Valve: The tricuspid valve is structurally normal. There is moderate tricuspid regurgitation. The Doppler estimated right ventricular systolic pressure (RVSP) is mildly elevated at 34 mmHg. Pulmonic Valve: The pulmonic valve is structurally normal. There is mild pulmonic valve regurgitation. Pericardium: There is no pericardial effusion noted. Aorta: The aortic root is normal. CONCLUSIONS: 1. Left ventricular ejection fraction is normal by visual estimate at 60-65%. 2. Spectral Doppler shows a Grade II (pseudonormal pattern) of left ventricular diastolic filling with an elevated left atrial pressure. 3. The left atrium is mildly dilated. 4. Moderate tricuspid regurgitation visualized. 5. The Doppler estimated RVSP is mildly elevated at 34 mmHg. 6. Well seated bioprosthetic AVR with a peak gradient of 16mmHg. LABORATORY/PATHOLOGY DATA Lab Results Component Value Date WBC 4.5 05/15/2025 HGB 9.3 (L) 05/15/2025 HCT 28.6 (L) 05/15/2025 MCV 97 05/15/2025 PLT 213 05/15/2025 Chemistry Lab Results Component Value Date/Time NA 134 (L) 04/24/2025 1340 K 3.9 04/24/2025 1340 CL 97 (L) 04/24/2025 1340 CO2 30 04/24/2025 1340 BUN 13 04/24/2025 1340 CREATININE 0.66 04/24/2025 1340 Lab Results Component Value Date/Time CALCIUM 8.2 (L) 04/24/2025 1340 ALKPHOS 126 04/24/2025 1340 AST 26 04/24/2025 1340 ALT 21 04/24/2025 1340 BILITOT 0.4 04/24/2025 1340 Lab Results Component Value Date LABCA2 27.0 04/24/2025 LABCA2 28.4 04/03/2025 LABCA2 28.9 03/08/2025 LABCA2 28.3 02/20/2025 LABCA2 37.3 01/01/2025 IMPRESSION/PLAN [id number] HER2+/ER-/WV- right sided breast cancer. Post aortic valve repair surgery she is a candidate for her2 therapy. Previously discussed with Dr Bae in onco cards who has recommended that it is safe to proceed but she would require Q3 month echos. Insurance denied q3 month echos. Has established with onco cardiology- Yany Page CNP. No clinical symptoms of heart failure. No evidence of any drug related intolerances or toxicities. She is doing well and has good energy without any concerning side effects. Will continue with current regimen. March 2025 CT scans show response to treatment. RTC in 6 wks with repeat restaging CT and Davey Visit. Decreased appetite/wt loss. Family asking for appetite stimulator. Have again referred to supportive oncology March 2025 and patient has not completed referral. Thorough discussion today expectation of completing this referral. Weight has stabilized At least 30 minutes of direct consultation was spent with the patient today reviewing her cancer care plan, cancer features, educating and answering questions regarding ongoing follow up, greater than 50% in counseling and coordination of care Thank you for the opportunity to be involved your care. We discussed the clinical significance of diagnosis, goals of care and treatment plan in detail. Please do not hesitate to reach out with any questions. Neli Cox MSN, MOTION PICTURE PROJECTIONIST, SENIOR QUALITY ASSURANCE SPECIALIST-C [facility] Division of Medical Oncology- Breast Collaborating Physician Dr. Marcelo Davey [facility] [place] [address] Available via Secure Chat Confidential Peer Review Document- Pantographer Privilege Privileged Pursuant to [place] Revised Code Section 2305.24, .25, .251 & .252 [facility] Work Phone: 1([phone]) 252-445707-30-2025 Instructions* Patient Instructions* WILEY Carlson - 05/16/2025 9:00 AM EDT Please complete referral to supportive oncology team- We placed this referral March 2025 due to weight loss and poor appetite issues Dr Marcelo Davey follow up with repeat Scans in 6 weeks on 06/27/25 Labs are stable to complete treatment tomorrow 05/17/25. Please schedule treatments 06/06- and 06/[address] Davey visit Onco cardiology follow up 08/09/25 with repeat ECHO 08/03/25 Please call [phone] with any questions or concerns prior to your next office visit. [facility] Work Phone: [phone]) [phone] History of Present illness Narrative* WILEY Pimentel - 05/03/2025 9:30 AM EDT CARDIO-ONCOLOGY PROGRESS NOTE Name: Lizbeth Nixon : 1955 Date of Service: 05/03/25 Medical Oncologist: Marcelo Davey MD CHIEF COMPLAINT: Lizbeth Nixon is a 70 y.o. female who presents to clinic for continued monitoring while on cardiotoxic chemotherapy. New patient visit for me today HPI: Oncology History: -03/30-05/31/24: 3 cycles carbo/gem for ER/WV-, HER2+ B breast cancer metastatic to bone -11/30/24-present: [place]/[facility] Cardiology History: -2004: Single-vessel CABG with bioprosthetic aortic valve replacement, aortic aneurysm repair -2010: AICD placement -08/03/24: CABG x 2, redo aortic valve replacement, ascending aorta replacement INTERVAL HISTORY: -No dizziness, lightheadedness, presyncope -No dyspnea, orthopnea, PND -No CP or palpitations -No edema -Appetite poor, losing weight. Oncology team aware ROS: -Negative except as described in interval history PROBLEM LIST: Problem List[1] PAST SURGICAL HISTORY: Surgical History[2] MEDICATIONS: Medications Ordered Prior to Encounter[3] ALLERGIES: Allergies[4] SOCIAL HISTORY: Social History[5] FAMILY HISTORY: Family History[6] VITAL SIGNS: BP 122/64 Pulse 71 Temp 36.3 C (97.3 F) (Temporal) Resp 16 Wt 52.4 kg (115 lb 9.6 oz) LMP(LMP Unknown) SpO2 96% BMI 22.94 kg/m Body mass index is 22.94 kg/m . LABS: Lab Results Component Value Date GLUCOSE 87 04/24/2025 CALCIUM 8.2 (L) 04/24/2025 NA 134 (L) 04/24/2025 K 3.9 04/24/2025 CO2 30 04/24/2025 CL 97 (L) 04/24/2025 BUN 13 04/24/2025 CREATININE 0.66 04/24/2025 Lab Results Component Value Date WBC 4.5 04/24/2025 HGB 9.8 (L) 04/24/2025 HCT 29.4 (L) 04/24/2025 MCV 96 04/24/2025 PLT 203 04/24/2025 No results found for: CHOL No results found for: HDL No results found for: LDLCALC No results found for: TRIG No components found for: CHOLHDL ECHO: EKG: No results found. However, due to the size of the patient record, not all encounters were searched.Please check Results Review for a complete set of results. PHYSICAL EXAM: General: Well-developed, well-nourished, NAD Skin: No rash, jaundice, or lesions HEENT: Normocephalic, atraumatic. Sclerae anicteric. MMMI Cardiovascular: HRRR. No murmur, gallop, or rub. No cyanosis or clubbing. No JVD. No edema Lungs: CTAB Musculoskeletal: Full ROM grossly intact Neurological: A&O x 4 Psychiatric: Mood and affect appropriate ASSESSMENT/PLAN: #ICM #Encounter for monitoring cardiotoxic cancer treatment -Echocardiogram last week shows preserved LVEF 60-65%, moderate TR, well-seated AVR -Patient warm and dry on exam -Repeat echo in 3 months #S/p ICD -Sotalol management per EP at OSH. Records not visible in EMR #CAD: #S/p CABG -Continue rosuvastatin 20 mg daily, ASA 81 mg daily #HTN: -Well-controlled on amlodipine 10 mg daily, lisinopril 5 mg daily #Metastatic breast cancer: -Stable disease per recent imaging -Management per Dr. Davey 40 minutes spent on [id number] and [id number]-face patient care Yany Page, MOTION PICTURE PROJECTIONIST-CUSTOM STOCK MAKER [1] Patient Active Problem List Diagnosis Implantable cardioverter-defibrillator (ICD) in situ Gastroesophageal reflux disease History of aortic valve replacement Status post coronary artery bypass grafting Ascending aorta dilation Atrial fibrillation (Multi) Dyspnea on exertion Heart valve disease Arteriosclerosis of coronary artery Congestive heart failure Hypertrophic obstructive cardiomyopathy (Multi) Mixed hyperlipidemia Insomnia Lumbar spondylosis Cardiac arrhythmia Aneurysm of abdominal vessel Abnormal radiographic examination History of cerebrovascular accident Cerebrovascular accident (CVA) (Multi) Hypertension Chest pain Coronary artery disease of [place] artery of [place] heart with stable angina pectoris Malignant neoplasm of lower-outer quadrant of right breast of female, estrogen receptor negative Breast cancer in female Acute pharyngitis Aortic valve stenosis Axillary lymphadenopathy Diarrhea Headache Inflammatory dermatosis Knee pain Mass of breast Mixed anxiety depressive disorder Osteoarthritis Osteopenia Pain of hand Shoulder pain Thumb pain Pigmented skin lesion Prediabetes Recurrent major depressive disorder Regional lymph node metastasis present (Multi) Bilateral carotid artery stenosis Acute ill-defined cerebrovascular disease Urgency of urination Encounter for antineoplastic chemotherapy Chemotherapy-induced neutropenia Chemotherapy-induced nausea Chemotherapy-induced fatigue Encounter for antineoplastic chemotherapy Anemia Aneurysm of ascending aorta without rupture Ascending aortic aneurysm, unspecified whether ruptured [2] Past Surgical History: Procedure Laterality Date ABDOMINAL AORTIC ANEURYSM REPAIR 2005 AORTIC VALVE REPLACEMENT 2005 BREAST BIOPSY CARDIAC CATHETERIZATION CARDIAC VALVE REPLACEMENT CORONARY ARTERY BYPASS GRAFT 2004 CORONARY STENT PLACEMENT x4 HYSTERECTOMY INSERT / REPLACE / REMOVE PACEMAKER 2010 OTHER SURGICAL HISTORY 07/20/2019 Cardioverter defibrillator insertion OTHER SURGICAL HISTORY 07/24/2019 Arterial stent placement TONSILLECTOMY [3] Current Outpatient Medications on File Prior to Visit Medication Sig Dispense Refill acetaminophen (Tylenol) 325 mg tablet Take 2 tablets (650 mg) by mouth every 6 hours if needed (formild to moderate pain). amLODIPine (Norvasc) 10 mg tablet Take 1 tablet (10 mg) by mouth early in the morning.. aspirin 81 mg EC tablet Take 1 tablet (81 mg) by mouth once daily. calcium carbonate 600 mg calcium (1,500 mg) tablet Take 600 mg by mouth once daily. cyclobenzaprine (Flexeril) 10 mg tablet Take 1 tablet (10 mg) by mouth every 12 hours. 30 tablet 1 lidocaine-prilocaine (Emla) 2.5-2.5 % cream Apply 1 Application topically 1 time if needed. lisinopril 5 mg tablet Take 1 tablet (5 mg) by mouth early in the morning.. melatonin 10 mg tablet Take 1 tablet (10 mg) by mouth as needed at bedtime. multivitamin with minerals tablet Take 1 tablet by mouth once daily. OLANZapine (ZyPREXA) 2.5 mg tablet Take 1 tablet (2.5 mg) by mouth once daily at bedtime. 30 tablet1 ondansetron (Zofran) 8 mg tablet Take 1 tablet (8 mg) by mouth every 8 hours if needed. pantoprazole (ProtoNix) 40 mg EC tablet Take 1 tablet (40 mg) by mouth once daily in the morning. Take before meals. rosuvastatin (Crestor) 20 mg tablet Take 1 tablet (20 mg) by mouth once daily. sertraline (Zoloft) 100 mg tablet Take 1 tablet (100 mg) by mouth once daily. sotalol (Betapace) 80 mg tablet Take 1 tablet (80 mg) by mouth every 12 hours. traZODone (Desyrel) 100 mg tablet Take 1 tablet (100 mg) by mouth as needed at bedtime for sleep. No current facility-administered medications on file prior to visit. [4] Allergies Allergen Reactions Grass Pollen Other House Dust Mite Other [5] Social History Tobacco Use Smoking status: Former Current packs/day: 0.00 Average packs/day: 2.0 packs/day for 32.0 years (64.0 ttl pk-yrs) Types: Cigarettes Start date: 10/18/1972 Quit date: 2004 Years since quittin.5 Passive exposure: Never Smokeless tobacco: Never Vaping Use Vaping status: Never Used Substance Use Topics Alcohol use: Not Currently Comment: Occasionally on holidays Drug use: Never [6] Family History Problem Relation Name Age of Onset Breast cancer Mother Cancer Mother colon and breast Heart disease Father Breast cancer Sister Cancer Sister breast documented in this [facility] Work Phone: [phone] 176-743107-17-2025 Instructions* Patient Instructions* WILEY Pimentel - 05/03/2025 9:30 AM EDT It was a pleasure meeting you today. Here is our plan: --Repeat echocardiogram and return visit in 3 months documented in this [facility] Work Phone: 1(101) 581-788807-02-2025 Discharge summary [facility] Medical Records Department [address] [place] [address] Emergency Department Summary 04/18/25 MR#: [id number] Acct: [id number] Name: LIZBETH NIXON Rep #:[id number] : 1955 70 From: Benito Jefferson MD PCP: Dr. Daniela Fallon MD Status:R EG ER Location: ED HPI History of Present Illness Chief Complaint: Shortness of Breath Detail of Chief Complaint: Patient is here because of dizziness which she defines as lightheadedness Informant: patient Onset/Context/Timing Onset: Today and Month(s) Context: Sudden Onset Timing: Intermittent (Up to a minute) Quality: Lightheadedness and unsteadiness Location: Uncertain Current Severity: Gone Maximum Severity: Moderate Worsened by: Nothing specific Relieved by: Nothing Associated Symptoms Associated Symptoms: Patient had 2 prior strokes that affected the vision of theleft eye Narrative Narrative: Patient is a 70-year-old woman with history of breast cancer. She receives chemo every other week. She presents because of dizziness. Without prompting she is instead lightheaded. Upon further questioning there is a component whereshe feels her balance is off and she does not describe vertigo with her or the room spinning. She does have altered vision left eye due to prior stroke. She stated she was concerned she may have had a TIA. She is not on aspirin. She denies change in her vision from prior. She denies double vision. Presently she has no symptoms. She denies headache. Denies trouble with speech or swallowing. She denies numbness, tingling, weakness in her upper or lower extremities. Patient was seen on February 06 and diagnosed with vasculitis. This was involving the anterior aspect of her lower extremities. There was no obvious rash noted per the PA. Patient was seen April 05 by nurse practitioner Claudia Rubio. She was seen for dizziness. She states it was worse the 2 days prior to her visit and this has been an ongoing issue for months. [employer] systems indicated positive for headache under the ENT portion. She documented no blurred vision however patient states this is chronic. No cerebellar testing was done at that time. Discharge summary authored by was admitted November of this year. She was admitted for neutropenic fever. Dischargesummary authored by Dr. Guillaume Spring was reviewed. Prior similar symptoms: Yes Recent Illness/Hospitalization: [facility] Medical History Neutropenic fever Gastroenteritis Breast cancer metastasized to axillary lymph node Nontraumatic psoas hematoma Hyperbilirubinemia Severe anemia Non-ST elevation DE (NSTEMI) Rhabdomyolysis Thrombocytopenia CAD (coronary artery disease) Chronic pain Atrial fibrillation ICD (implantable cardioverter-defibrillator) in place Urinary urgency Metastasis to bone Regional lymph node metastasis present Invasive ductal carcinoma of breast Aortic valve regurgitation due to aortic dilation Breast nodule Abnormal findings on imaging test Breast mass, right Skin mole Left knee pain Anxiety and depression Diarrhea Major depressive disorder, recurrent Health care maintenance Flu vaccine need Skin tags, multiple acquired Left hand pain History of cyst of breast History of stroke Heart valve problem GERD (gastroesophageal reflux disease) Hyperlipemia Hypertension Home Medications ?Medication ?Instructions ?Recorded ?Last Taken ?Type aspirin 81 mg chewable tablet 81 mg PO DAILY 11/23/17 06/03/24 History melatonin 10 mg capsule 10 mg PO HS PRN sleep 06/03/24 History calcium carbonate 600 mg PO BID 06/30/1806/03 History amlodipine 10 mg tablet 10 mg PO QDAY #90 tabs 05/1106/03/24 Rx nitroglycerin 0.4 mg sublingual See Rx Instructions .R oute 05/11/24 Unknown Rx tablet .COMPLEX #75 tabs rosuvastatin 20 mg tablet 20 mg PO DAILY #90 tabs 04/1806/03/24 Rx sertraline 100 mg tablet 100 mg PO QDAY #90 tabs 04/1806/03/24 Rx handicap placard #1 ea 09/01/24 Unknown Rx cholecalciferol (vitamin D3) 50 50 mcg PO DAILY Unknown History mcg (2,000 unit) capsule (Vitamin D3) pantoprazole 40 mg tablet,delayed 40 mg PO BID 5 Unknown History release sotalol 80 mg tablet (Betapace) 80 mg PO DAILY 5 Unknown History cephalexin 500 mg capsule 500 mg PO Q12H #14 caps 01/17 12/12 Unknown Rx prednisone 10 mg tablet 10 mg PO DIRECTED #30 tab s 02/06/25 Unknown Rx trazodone 100 mg tablet 100 mg PO QHS PRN insomnia # 90 tabs 02/19/25 Unknown Rx lisinopril 40 mg tablet 40 mg PO DAILY 04/18/25 Unkn own History Allergy/AdvReac Type Severity Reaction Status Date / Time No Known Allergies Allergy Verified 04/18/25 16:22 Family History Mother CVA (cerebral vascular accident) Breast cancer, Onset Age: 35 Father Heart disease Sister Breast cancer, Onset Age: 50 Heart disease Hypertension Cancer lung Surgical History History of coronary artery bypass graft x 3 History of hysterectomy Cardiac defibrillator in place 4 stents cardiac rythem pacemaker triple bypass, valve replacement, nad aneurysm repair History of tonsillectomy Social History household members: none Smoking Status: Former smoker Tobacco: How many years used: 20 how long ago did patient quit smokin alcohol intake: never substance use type: does not use what type of physical activity do you participate in: none ROS ROS ED Constitutional Constitutional ED: Denies chills, fever(s), subjective, sweats or weight loss Eyes Eyes: Reports blurry vision left (Chronic per patient); Denies change in vision or diplopia ENT ENT ED: Denies ear pain, rhinorrhea or sore throat Cardiovascular Cardiovascular: Denies chest pain, orthopnea, palpitations, paroxysmal nocturnaldyspnea or racing heartbeat Respiratory/Chest Respiratory/Chest: Denies cough, dyspnea, dyspnea on exertion, orthopnea or paroxysmal nocturnal dyspnea Gastrointestinal Gastrointestinal: Reports nausea, vomiting and other Details: Vomited 3 times onSunday. No coffee grounds or hematemesis. ; Denies abdominal pain, constipation, diarrhea or melena Genitourinary Genitourinary ED: Denies dysuria, hematuria or urinary frequency Musculoskeletal Musculoskeletal: Denies arthralgias, back pain or myalgias Integumentary Denies abscess, Abrasions or rash Neurologic Neurologic: Denies headache(s), paresthesias or weakness Psychiatric Psychiatric: Denies anxiety or depression Endocrine Endocrinology: Denies cold intolerance or heat intolerance Hematologic/Lymphatic Hematologic/Lymphatic: Reports systems reviewed and no addt'l complaints, exceptas documented EXAM Physical Exam Const Vital Signs: 04/18/25 16:20 04/18/25 17:20 04/18/25 18:06 Temperature 97.5 F L Temperature Source Temporal Pulse Rate 92 Pulse Rate [Lying] 64 Pulse Rate [Sitting (for 1 minute prior to obtaining)] 67 Pulse Rate [Standing (for 1 minute prior to obtaining)] 77 Respiratory Rate 18 Respiratory Effort Normal Non-Labored Respiratory Depth Normal Respiratory Pattern Normal Blood Pressure 122/55 H Blood Pressure [Lying] 122/63 H Blood Pressure [Sitting (for 1 minute prior to obtaining)] 127/57 H Blood Pressure [Standing (for 1 minute prior to obtaining)] 109/54 L Blood Pressure Mean 77 Blood Pressure Mean [Lying] 82 Blood Pressure Mean [Sitting (for 1 minute prior to obtaining)] 80 Blood Pressure Mean [Standing (for 1 minute prior to obtaining)] 72 Pulse Ox 97 Oxygen Delivery Method Room Air Room Air 04/18/25 18:20 04/18/25 20:16 Temperature Temperature Source Pulse Rate 67 70 Pulse Rate [Lying] Pulse Rate [Sitting (for 1 minute prior to obtaining)] Pulse Rate [Standing (for 1 minute prior to obtaining)] Respiratory Rate 21 H 16 Respiratory Effort Respiratory Depth Respiratory Pattern Blood Pressure 133/66 H 133/63 H Blood Pressure [Lying] Blood Pressure [Sitting (for 1 minute prior to obtaining)] Blood Pressure [Standing (for 1 minute prior to obtaining)] Blood Pressure Mean 88 86 Blood Pressure Mean [Lying] Blood Pressure Mean [Sitting (for 1 minute prior to obtaining)] Blood Pressure Mean [Standing (for 1 minute prior to obtaining)] Pulse Ox 97 98 Oxygen Delivery Method Room Air Room Air Orthostatic vital signs were normal. Positive well nourished and well developed General Appearance ED: well developed and NAD; Negative for cyanotic, diaphoretic or pallor HEENT Reports moist mucous membranes HEENT Narrative: Ears normal. TMs normal. Nares patent. Uvula midline. No deviation tongue orprotrusion. Eyes PERRL and EOMs intact bilaterally General Eye ED: Yes pale conjunctiva; Negative for scleral icterus Neck no lymphadenopathy, supple and no JVD Resp normal respiratory effort and clear to auscultation bilaterally Cardio regular rate, regular rhythm, S1 normal heart sound, S2 normal heart sound and no murmurs GI normal to inspection, nondistended, normoactive bowel sounds, non-tender, non- distended and no masses; Negative for hepatosplenomegaly Back/Spine no CVA tenderness Extremity normal to inspection General Extremety ED: Negative for edema or tenderness General Extremity: Negative for edema Neuro oriented x3, CN's II-XII intact bilaterally and no sensory deficits noted Neuro Narrative: There is no dysmetria. There is no nystagmus. She does have blurred vision left eye. Sensorium / Orientation: alert Motor Exam: strength 5/5 throughout Skin no rashes or lesions noted, no wounds and skin turgor normal General Skin Exam: Negative for elasticity normal, jaundice or pallor MDM MDM MDM Narrative Medical decision making narrative: Patient with dizziness for months this may represent orthostatic hypotension, autonomic dysfunction, doubt TIA since and only lasts seconds up to a minute at most. Since patient appears pale will obtain H&H and compare to prior. Lab Data Lab results narrative: CBC reveals an H&H of 9.6 and 28.0. This is approximately her baseline. Electrolyte panel is remarkable for hyponatremia and hypochloremia. Her BUN andcreatinine are unremarkable. Glucose is slightly elevated. Prior electrolyte panel was obtained December 22, 2024. That time her sodium was 138. Labs: Laboratory Results - last 24 hr 04/18/25 17:02 WBC 7.2 RBC 3.04 L Hgb 9.6 L Hct 28.0 L MCV 92.1 MCH 31.6 MCHC 34.3 RDW Std Deviation 48.8 H RDW Coeff of Margareth 14.6 Plt Count 121 L MPV 10.4 Immature Gran % (Auto) 0.400 Neut % (Auto) 76.0 H Lymph % (Auto) 17.7 L [place] % (Auto) 4.8 Eos % (Auto) 1.0 Baso % (Auto) 0.1 Absolute Neuts (auto) 5.5 Absolute Lymphs (auto) 1.28 Nucleated RBC % 0 Sodium 127 L Potassium 3.7 Chloride 92 L Carbon Dioxide 24.4 Anion Gap 10 BUN 9 Creatinine 0.73 Estim Creat Clear Calc 46.33 L Est GFR (MDRD) Non-Af 88 BUN/Creatinine Ratio 12.5 Glucose 110 H Calcium 8.6 Total Bilirubin 0.49 AST 48 H ALT 40 H Alkaline Phosphatase 180 H Total Protein 6.5 Albumin 3.7 Globulin 2.8 Albumin/Globulin Ratio 1.3 Radiography Diagnostic Testing: Clinical Impression(s) from Imaging Studies Brain CT 04/18/25 18:06 IMPRESSION: No acute intracranial abnormalities. Chronic and ancillary findings as above. Reading Location: [place] [address] report was read. Treatment and Re-Evaluation :: Patient was informed of her results. Patient was informed the cause of her dizziness is unknown. Since has been going on for months we will discharge to home. Discharge Plan Triage Chief Complaint: Shortness of Breath ED Provider: Benito Jefferson Dx/Rx/DC Orders Clinical Impression: Dizziness, nonspecific, Hypertension, Hyperlipemia, Borderline type 2 diabetes mellitus, Breast mass, right, Light-headedness, Anemia Instructions: ED Dizziness, Uncertain Cause Prescriptions: No Action aspirin 81 mg tablet,chewable 81 mg PO DAILY melatonin 10 mg capsule 10 mg PO HS PRN (Reason: sleep) calcium carbonate 600 mg calcium (1,500 mg) tablet 600 mg PO BID rosuvastatin 20 mg tablet 20 mg PO DAILY Qty: 90 3RF Rx Instructions: TAKE 1 TABLET BY MOUTH ONCE DAILY sertraline 100 mg tablet 100 mg PO QDAY Qty: 90 2RF nitroglycerin 0.4 mg tablet, sublingual See Rx Instructions .ROUTE .COMPLEX Qty: 75 1RF Dose Instruction: DISSOLVE 1 TABLET UNDER TONGUE EVERY 5 MINUTES NEEDED FOR CHEST PAIN Rx Instructions: DISSOLVE 1 TABLET UNDER TONGUE EVERY 5 MINUTES NEEDED FOR CHEST PAIN amlodipine 10 mg tablet 10 mg PO QDAY Qty: 90 3RF (DME) handicap placard See Rx Instructions .Route .MEDSUPPLY Qty: 1 0RF Rx Instructions: placard for one year prednisone 10 mg tablet 10 mg PO DIRECTED Qty: 30 0RF Rx Instructions: see taper instructions: 5 tabs x 2 days, 4 tabs x 2 days, 3 tabs x 2 days, 2 tabs x 2 days, 1 tab x2 days. cephalexin 500 mg capsule 500 mg PO Q12H Qty: 14 0RF cholecalciferol (vitamin D3) [Vitamin D3] 50 mcg (2,000 unit) capsule 50 mcg PO DAILY sotalol [Betapace] 80 mg tablet 80 mg PO DAILY pantoprazole 40 mg tablet,delayed release (DR/EC) 40 mg PO BID lisinopril 40 mg tablet 40 mg PO DAILY trazodone 100 mg tablet 100 mg PO QHS PRN (Reason: insomnia) Qty: 90 1RF Primary Care Provider: Daniela Fallon Referrals: Daniela Fallon MD [Primary Care Provider] - 1 Week Print Language: Yoruba Disposition Disposition: Home, Self Care What to do if you have Problems For any increased pain, shortness of breath, bleeding, nausea or vomiting, chestpain, or any unexpected problems, contact your Primary Care Provider. Call [facility] ([phone]) or report tothe closest Emergency Room. Call 911 if necessary. 04/18/252144 Cosigner Signature (if applicable): CC: Dr. Daniela Fallon MD ~ Signed [facility]07-02-2025 Radiology Diagnostic study note [facility] Imaging Services [address] [place], [place] [address] Brain/Head without Contrast MR#: [id number] Acct: [id number] Name: LIZBETH NIXON Rep #: [id number] : 1955 F 70 From: Prince Mejia MD PCP: Dr. Daniela Fallon MD Status: R ER Study:Brain/Head without Contrast Date of Exa m: 04/18/25 Exam# [id number] Ordering Dr: Adelaide Jefferson MD PROCEDURE: BRAIN/HEAD WITHOUT CONTRAST 04/18/2025 REASON FOR EXAM: DIZZINESS, HISTORY OF PRIOR CEREBELLAR STROKE TECHNIQUE: BRAIN/HEAD WITHOUT CONTRAST Coronal and Sagittal reconstruction series were provided. One or more dose reduction techniques were used (e.g., Automated exposure control, adjustment of the mA and/or kV according to patient size, use of iterative reconstruction technique. RADIATION DOSE SUMMARY: CTDlvol: 44.99 mGy DLP: 12.98 mGycm COMPARISON: None. FINDINGS: Mild global parenchymal atrophy. Chronic microvascular ischemia. Right occipital lobe encephalomalacia. No evidence of acute hemorrhage or infarction. No extra-axial blood or fluid collections. The paranasal sinuses and mastoid air cells are clear. The calvarial vault and skull base are intact. CT/Brain/Head without Contrast IMPRESSION: No acute intracranial abnormalities. Chronic and ancillary findings as above. Reading Location: [id number] CC: Dr. Daniela Fallon MD; Dr. 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 Daniela Fallon MD Status:R EG ER Location: ED HPI History of Present Illness Chief Complaint: Shortness of Breath Detail of Chief Complaint: Patient is here because of dizziness which she defines as lightheadedness Informant: patient Onset/Context/Timing Onset: Today and Month(s) Context: Sudden Onset Timing: Intermittent (Up to a minute) Quality: Lightheadedness and unsteadiness Location: Uncertain Current Severity: Gone Maximum Severity: Moderate Worsened by: Nothing specific Relieved by: Nothing Associated Symptoms Associated Symptoms: Patient had 2 prior strokes that affected the vision of theleft eye Narrative Narrative: Patient is a 70-year-old woman with history of breast cancer. She receives chemo every other week. She presents because of dizziness. Without prompting she is instead lightheaded. Upon further questioning there is a component whereshe feels her balance is off and she does not describe vertigo with her or the room spinning. She does have altered vision left eye due to prior stroke. She stated she was concerned she may have had a TIA. She is not on aspirin. She denies change in her vision from prior. She denies double vision. Presently she has no symptoms. She denies headache. Denies trouble with speech or swallowing. She denies numbness, tingling, weakness in her upper or lower extremities. Patient was seen on February 06 and diagnosed with vasculitis. This was involving the anterior aspect of her lower extremities. There was no obvious rash noted per the PA. Patient was seen April 05 by nurse practitioner Claudia Rubio. She was seen for dizziness. She states it was worse the 2 days prior to her visit and this has been an ongoing issue for months. Review of systems indicated positive for headache under the ENT portion. She documented no blurred vision however patient states this is chronic. No cerebellar testing was done at that time. Discharge summary authored by was admitted November of this year. She was admitted for neutropenic fever. Discharge summary authored by Dr. Guillaume Spring was reviewed. Prior similar symptoms: Yes Recent Illness/Hospitalization: Yes [facility] Medical History Neutropenic fever Gastroenteritis Breast cancer metastasized to axillary lymph node Nontraumatic psoas hematoma Hyperbilirubinemia Severe anemia Non-ST elevation DE (NSTEMI) Rhabdomyolysis Thrombocytopenia CAD (coronary artery disease) Chronic pain Atrial fibrillation ICD (implantable cardioverter-defibrillator) in place Urinary urgency Metastasis to bone Regional lymph node metastasis present Invasive ductal carcinoma of breast Aortic valve regurgitation due to aortic dilation Breast nodule Abnormal findings on imaging test Breast mass, right Skin mole Left knee pain Anxiety and depression Diarrhea Major depressive disorder, recurrent Health care maintenance Flu vaccine need Skin tags, multiple acquired Left hand pain History of cyst of breast History of stroke Heart valve problem GERD (gastroesophageal reflux disease) Hyperlipemia Hypertension Home Medications ?Medication ?Instructions ?Recorded ?Last Taken ?Type aspirin 81 mg chewable tablet 81 mg PO DAILY 11/23/17 06/03/24 History melatonin 10 mg capsule 10 mg PO HS PRN sleep 06/03/24 History calcium carbonate 600 mg PO BID 06/30/1806/03 History amlodipine 10 mg tablet 10 mg PO QDAY #90 tabs 05/1106/03/24 Rx nitroglycerin 0.4 mg sublingual See Rx Instructions .R oute 05/11/24 Unknown Rx tablet .COMPLEX #75 tabs rosuvastatin 20 mg tablet 20 mg PO DAILY #90 tabs 04/1806/03/24 Rx sertraline 100 mg tablet 100 mg PO QDAY #90 tabs 04/1806/03/24 Rx handicap placard #1 ea 09/01/24 Unknown Rx cholecalciferol (vitamin D3) 50 50 mcg PO DAILY Unknown History mcg (2,000 unit) capsule (Vitamin D3) pantoprazole 40 mg tablet,delayed 40 mg PO BID 5 Unknown History release sotalol 80 mg tablet (Betapace) 80 mg PO DAILY 5 Unknown History cephalexin 500 mg capsule 500 mg PO Q12H #14 caps 01/17 12/12 Unknown Rx prednisone 10 mg tablet 10 mg PO DIRECTED #30 tab s 02/06/25 Unknown Rx trazodone 100 mg tablet 100 mg PO QHS PRN insomnia # 90 tabs 02/19/25 Unknown Rx lisinopril 40 mg tablet 40 mg PO DAILY 04/18/25 Unkn own History Allergy/AdvReac Type Severity Reaction Status Date / Time No Known Allergies Allergy Verified 04/18/25 16:22 Family History Mother CVA (cerebral vascular accident) Breast cancer, Onset Age: 35 Father Heart disease Sister Breast cancer, Onset Age: 50 Heart disease Hypertension Cancer lung Surgical History History of coronary artery bypass graft x 3 History of hysterectomy Cardiac defibrillator in place 4 stents cardiac rythem pacemaker triple bypass, valve replacement, nad aneurysm repair History of tonsillectomy Social History household members: none Smoking Status: Former smoker Tobacco: How many years used: 20 how long ago did patient quit smokin alcohol intake: never substance use type: does not use what type of physical activity do you participate in: none ROS ROS ED Constitutional Constitutional ED: Denies chills, fever(s), subjective, sweats or weight loss Eyes Eyes: Reports blurry vision left (Chronic per patient); Denies change in vision or diplopia ENT ENT ED: Denies ear pain, rhinorrhea or sore throat Cardiovascular Cardiovascular: Denies chest pain, orthopnea, palpitations, paroxysmal nocturnaldyspnea or racing heartbeat Respiratory/Chest Respiratory/Chest: Denies cough, dyspnea, dyspnea on exertion, orthopnea or paroxysmal nocturnal dyspnea Gastrointestinal Gastrointestinal: Reports nausea, vomiting and other Details: Vomited 3 times onSunday. No coffee grounds or hematemesis. ; Denies abdominal pain, constipation, diarrhea or melena Genitourinary Genitourinary ED: Denies dysuria, hematuria or urinary frequency Musculoskeletal Musculoskeletal: Denies arthralgias, back pain or myalgias Integumentary Denies abscess, Abrasions or rash Neurologic Neurologic: Denies headache(s), paresthesias or weakness Psychiatric Psychiatric: Denies anxiety or depression Endocrine Endocrinology: Denies cold intolerance or heat intolerance Hematologic/Lymphatic Hematologic/Lymphatic: Reports systems reviewed and no addt'l complaints, exceptas documented EXAM Physical Exam Const Vital Signs: 04/18/25 16:20 04/18/25 17:20 04/18/25 18:06 Temperature 97.5 F L Temperature Source Temporal Pulse Rate 92 Pulse Rate [Lying] 64 Pulse Rate [Sitting (for 1 minute prior to obtaining)] 67 Pulse Rate [Standing (for 1 minute prior to obtaining)] 77 Respiratory Rate 18 Respiratory Effort Normal Non-Labored Respiratory Depth Normal Respiratory Pattern Normal Blood Pressure 122/55 H Blood Pressure [Lying] 122/63 H Blood Pressure [Sitting (for 1 minute prior to obtaining)] 127/57 H Blood Pressure [Standing (for 1 minute prior to obtaining)] 109/54 L Blood Pressure Mean 77 Blood Pressure Mean [Lying] 82 Blood Pressure Mean [Sitting (for 1 minute prior to obtaining)] 80 Blood Pressure Mean [Standing (for 1 minute prior to obtaining)] 72 Pulse Ox 97 Oxygen Delivery Method Room Air Room Air 04/18/25 18:20 04/18/25 20:16 Temperature Temperature Source Pulse Rate 67 70 Pulse Rate [Lying] Pulse Rate [Sitting (for 1 minute prior to obtaining)] Pulse Rate [Standing (for 1 minute prior to obtaining)] Respiratory Rate 21 H 16 Respiratory Effort Respiratory Depth Respiratory Pattern Blood Pressure 133/66 H 133/63 H Blood Pressure [Lying] Blood Pressure [Sitting (for 1 minute prior to obtaining)] Blood Pressure [Standing (for 1 minute prior to obtaining)] Blood Pressure Mean 88 86 Blood Pressure Mean [Lying] Blood Pressure Mean [Sitting (for 1 minute prior to obtaining)] Blood Pressure Mean [Standing (for 1 minute prior to obtaining)] Pulse Ox 97 98 Oxygen Delivery Method Room Air Room Air Orthostatic vital signs were normal. Positive well nourished and well developed General Appearance ED: well developed and NAD; Negative for cyanotic, diaphoretic or pallor HEENT Reports moist mucous membranes HEENT Narrative: Ears normal. TMs normal. Nares patent. Uvula midline. No deviation tongue orprotrusion. Eyes PERRL and EOMs intact bilaterally General Eye ED: Yes pale conjunctiva; Negative for scleral icterus Neck no lymphadenopathy, supple and no JVD Resp normal respiratory effort and clear to auscultation bilaterally Cardio regular rate, regular rhythm, S1 normal heart sound, S2 normal heart sound and no murmurs GI normal to inspection, nondistended, normoactive bowel sounds, non-tender, non-distended and no masses; Negative for hepatosplenomegaly Back/Spine no CVA tenderness Extremity normal to inspection General Extremety ED: Negative for edema or tenderness General Extremity: Negative for edema Neuro oriented x3, CN's II-XII intact bilaterally and no sensory deficits noted Neuro Narrative: There is no dysmetria. There is no nystagmus. She does have blurred vision left eye. Sensorium / Orientation: alert Motor Exam: strength 5/5 throughout Skin no rashes or lesions noted, no wounds and skin turgor normal General Skin Exam: Negative for elasticity normal, jaundice or pallor MDM MDM MDM Narrative Medical decision making narrative: Patient with dizziness for months this may represent orthostatic hypotension, autonomic dysfunction, doubt TIA since and only lasts seconds up to a minute at most. Since patient appears pale will obtain H&H and compare to prior. Lab Data Lab results narrative: CBC reveals an H&H of 9.6 and 28.0. This is approximately her baseline. Electrolyte panel is remarkable for hyponatremia and hypochloremia. Her BUN andcreatinine are unremarkable. Glucose is slightly elevated. Prior electrolyte panel was obtained December 22, 2024. That time her sodium was 138. Labs: Laboratory Results - last 24 hr 04/18/25 17:02 WBC 7.2 RBC 3.04 L Hgb 9.6 L Hct 28.0 L MCV 92.1 MCH 31.6 MCHC 34.3 RDW Std Deviation 48.8 H RDW Coeff of Margareth 14.6 Plt Count 121 L MPV 10.4 Immature Gran % (Auto) 0.400 Neut % (Auto) 76.0 H Lymph % (Auto) 17.7 L [place] % (Auto) 4.8 Eos % (Auto) 1.0 Baso % (Auto) 0.1 Absolute Neuts (auto) 5.5 Absolute Lymphs (auto) 1.28 Nucleated RBC % 0 Sodium 127 L Potassium 3.7 Chloride 92 L Carbon Dioxide 24.4 Anion Gap 10 BUN 9 Creatinine 0.73 Estim Creat Clear Calc 46.33 L Est GFR (MDRD) Non-Af 88 BUN/Creatinine Ratio 12.5 Glucose 110 H Calcium 8.6 Total Bilirubin 0.49 AST 48 H ALT 40 H Alkaline Phosphatase 180 H Total Protein 6.5 Albumin 3.7 Globulin 2.8 Albumin/Globulin Ratio 1.3 Radiography Diagnostic Testing: Clinical Impression(s) from Imaging Studies Brain CT 04/18/25 18:06 IMPRESSION: No acute intracranial abnormalities. Chronic and ancillary findings as above. Reading Location: [place] [address] report was read. Treatment and Re-Evaluation :: Patient was informed of her results. Patient was informed the cause of her dizziness is unknown. Since has been going on for months we will discharge to home. Discharge Plan Triage Chief Complaint: Shortness of Breath ED Provider: Benito Jefferson Dx/Rx/DC Orders Clinical Impression: Dizziness, nonspecific, Hypertension, Hyperlipemia, Borderline type 2 diabetes mellitus, Breast mass, right, Light-headedness, Anemia Instructions: ED Dizziness, Uncertain Cause Prescriptions: No Action aspirin 81 mg tablet,chewable 81 mg PO DAILY melatonin 10 mg capsule 10 mg PO HS PRN (Reason: sleep) calcium carbonate 600 mg calcium (1,500 mg) tablet 600 mg PO BID rosuvastatin 20 mg tablet 20 mg PO DAILY Qty: 90 3RF Rx Instructions: TAKE 1 TABLET BY MOUTH ONCE DAILY sertraline 100 mg tablet 100 mg PO QDAY Qty: 90 2RF nitroglycerin 0.4 mg tablet, sublingual See Rx Instructions .ROUTE .COMPLEX Qty: 75 1RF Dose Instruction: DISSOLVE 1 TABLET UNDER TONGUE EVERY 5 MINUTES NEEDED FOR CHEST PAIN Rx Instructions: DISSOLVE 1 TABLET UNDER TONGUE EVERY 5 MINUTES NEEDED FOR CHEST PAIN amlodipine 10 mg tablet 10 mg PO QDAY Qty: 90 3RF (DME) handicap placard See Rx Instructions .Route .MEDSUPPLY Qty: 1 0RF Rx Instructions: placard for one year prednisone 10 mg tablet 10 mg PO DIRECTED Qty: 30 0RF Rx Instructions: see taper instructions: 5 tabs x 2 days, 4 tabs x 2 days, 3 tabs x 2 days, 2 tabs x 2 days, 1 tab x 2 days. cephalexin 500 mg capsule 500 mg PO Q12H Qty: 14 0RF cholecalciferol (vitamin D3) [Vitamin D3] 50 mcg (2,000 unit) capsule 50 mcg PO DAILY sotalol [Betapace] 80 mg tablet 80 mg PO DAILY pantoprazole 40 mg tablet,delayed release (DR/EC) 40 mg PO BID lisinopril 40 mg tablet 40 mg PO DAILY trazodone 100 mg tablet 100 mg PO QHS PRN (Reason: insomnia) Qty: 90 1RF Primary Care Provider: Daniela Fallon Referrals: Daniela Fallon MD [Primary Care Provider] - 1 Week Print Language: Yoruba Disposition Disposition: Home, Self Care What to do if you have Problems For any increased pain, shortness of breath, bleeding, nausea or vomiting, chestpain, or any unexpected problems, contact your Primary Care Provider. Call [facility] ([phone]) or report to the closest Emergency Room. Call 911 if necessary. 04/18/252144 <Electronically signed by Benito Jefferson MD> Cosigner Signature (if applicable): CC: Dr. Daniela Fallon MD ~ Signed [facility] Work Phone: [phone] 592-784806-19-2025 Evaluation note* Diagnosis Onset Date Resolution Status Admit Date Dizziness acute April 05 2:20pm Fatigue acute April 05 2:20pm Anorexia acute June 9:50am Flu vaccine need acute 2024 9:50am Anxiety and depression chronic Se ptember 2024 9:50am Breast cancer chronic June 192024 9:50am Hyperlipemia chronic July 132024 9:50am Hypertension chronic July 132024 9:50am Insomnia chronic June 9:50am [employer] Work Phone: [phone] 381-249706-11-2025 History of Present illness Narrative* Marcelo Davey MD - 03/28/2025 10:20 AM EDT Images from the original note were not included. [facility] Location: [facility] BREAST CANCER DIAGNOSIS Malignant neoplasm of lower-outer quadrant of right breast of female, estrogen receptor negative, Clinical: Stage IIB (cT2(m), cN1(f), cM0, G3, ER-, WV-, HER2+) Malignant neoplasm of lower-outer quadrant of right breast of female, estrogen receptor negative, Pathologic: Stage IV (cM1, ER-, WV-, HER2+) ONCOLOGIC HISTORY S/p 3 cycles of dose reduced gemcitabine/carboplatin days 1 and 8 q21 days from 03/30/24 to 05/31/24 Trastuzumab single agent 10/09/24 and 10/30/24 CURRENT THERAPY emcitabine/trastuzumab/pertuzumab since 11/30/24 HISTORY OF PRESENT ILLNESS Lizbeth Nixon is a 70 y.o. woman with incidentally found breast cancer after chest CT for heart surgery work up (she has aortic valve disease) found breast mass and axillary adenopathy in the right breast. Biopsy of both revealed HER2+, ER/WV- breast cancer. Other outside staging workup raised the possibility of oligo bone metastases however the data was unconvincing. Outside PET/CT vaguely showed two areas in the upper spine but MRI suggests that this could be degenerative disease. Bone scan was definitely negative for bone mets. Cardio- oncology advised against Her2 mAB therapy as she has little cardiac reserve and will need to have aortic valve repair first. She has been on gem/carbo with clinical response in breast. She came back post cardiac surgery on 08/02/24. Restaging at that timerevealed re-growth of breast mass and more obvious FDG uptake in spine. After cleared by cardiology patient received gemcitabine/trastuzumab/pertuzumab on 11/30/24. CT scans show response. No issues after we eliminated day 8 gemcitabine. Main issue is wt loss and decreasein appetite. Review of Systems Constitutional: Positive for appetite change, fatigue and unexpected weight change (wt loss). Negative for chills and diaphoresis. HENT: Negative. Negative for hearing loss and lump/mass. Eyes: Negative. Negative for eye problems and icterus. Respiratory: Negative. Negative for chest tightness, cough, hemoptysis, shortness of breath and wheezing. Cardiovascular: Negative. Negative for chest pain, leg swelling and palpitations. Gastrointestinal: Negative for abdominal distention, abdominal pain, blood in stool, constipation, diarrhea and nausea. Endocrine: Negative for hot flashes. Genitourinary: Negative for bladder incontinence, difficulty urinating, dyspareunia, dysuria, frequency and hematuria. Musculoskeletal: Positive for arthralgias and back pain. Negative for gait problem and myalgias. Skin: Negative for rash. Neurological: Negative for dizziness, extremity weakness, gait problem, headaches, numbness and seizures. Hematological: Negative for adenopathy. Does not bruise/bleed easily. Psychiatric/Behavioral: Negative for confusion, depression and sleep disturbance. The patient is not nervous/anxious. All other systems reviewed and are negative. Past Medical History: has a past medical history of Anxiety, Aortic valve insufficiency, Arrhythmia, Arthritis, Ascending aorta dilatation, Ascending aorta dilation, Breast cancer, Cerebral vascular accident (Multi), CHF (congestive heart failure), Congestive heart failure (12/01/2023), Coronary art franklin disease, Depression, Dizziness, GERD (gastroesophageal reflux disease), HOCM (hypertrophic obstructive cardiomyopathy) (Multi) (12/01/2023), transfusion of platelets, Hyperlipidemia, Hypertension, Illness, unspecified (05/13/2024), Irregular heart beat, Joint pain, Occlusion and stenosis of bilateral carotid arteries (12/01/2023), Old myocardial infarction, Other chest pain (12/01/2023), Presence of combination internal cardiac defibrillator (ICD) and pacemaker, Rhabdomyolysis (06/05/2024),Shortness of breath, Thrombocytopenia (06/05/2024), TIA (transient ischemic attack), Urgency of urination (03/15/2024), and Vision loss. Surgical History: has a past surgical history that includes Other surgical history (07/20/2019); Other surgical history (07/24/2019); Tonsillectomy; Hysterectomy; Cardiac catheterization; Coronary stent placement; Breast biopsy; Coronary artery bypass graft (2004); Insert / replace / remove pacemaker (2010); Aortic valve replacement (2004); Cardiac valve replacement; and Abdominal aortic aneurysmrepair (2004). Social History: reports that she quit smoking about 20 years ago. Her smoking use included cigarettes. She has never been exposed to tobacco smoke. She has never used smokeless tobacco. She reports that she does not drink alcohol and does not use drugs. Family History: Family History Problem Relation Name Age of Onset Breast cancer Mother Cancer Mother colon and breast Heart disease Father Breast cancer Sister Cancer Sister breast Family Oncology History: Cancer-related family history includes Breast cancer in her mother and sister; Cancer in her mother and sister. OBJECTIVE VS / Pain: BP 157/69 (BP Location: Right arm, Patient Position: Sitting, BP Cuff Size: Small adult) Pulse 61 Temp 36.2 C (97.2 F) (Temporal) Ht 1.519 m (4' 11.8) Wt 54.1 kg (119 lb 4.3 oz) LMP (LMP Unknown) SpO2 94% BMI 23.45 kg/m BSA: 1.51 meters squared Pain Scale: 2 Performance Status: The ECOG performance scale today is ECO- Restricted in physically strenuous activity. Carries out light duty. Physical Exam Vitals reviewed. Constitutional: General: She is not in acute distress. Appearance: She is not ill-appearing, toxic-appearing or diaphoretic. HENT: Nose: No congestion or rhinorrhea. Mouth/Throat: Pharynx: No posterior oropharyngeal erythema. Cardiovascular: Rate and Rhythm: Normal rate and regular rhythm. Pulses: Normal pulses. Heart sounds: Normal heart sounds. No murmur (+loud aortic murmur) heard. No gallop. Pulmonary: Breath sounds: Normal breath sounds. Abdominal: General: There is no distension. Palpations: There is no mass. Tenderness: There is no abdominal tenderness. Musculoskeletal: General: No swelling. Cervical back: No rigidity. Right lower leg: No edema. Left lower leg: No edema. Lymphadenopathy: Cervical: No cervical adenopathy. Skin: General: Skin is warm. Coloration: Skin is not cyanotic. Findings: No bruising, ecchymosis or erythema. Neurological: General: No focal deficit present. Mental Status: She is oriented to person, place, and time. Cranial Nerves: Cranial nerves 2-12 are intact. Motor: Motor function is intact. Psychiatric: Attention and Perception: Attention and perception normal. Mood and Affect: Mood and affect normal. Behavior: Behavior normal. Thought Content: Thought content normal. Judgment: Judgment normal. Diagnostic Results === 03/21/25 === CT CHEST ABDOMEN PELVIS W IV CONTRAST - Impression - CHEST: 1. No new or worsening metastatic disease is detected. 2. Previously seen hypermetabolic right axillary adenopathy is less conspicuous on the current examination, however direct comparison is limited due to differences in modalities. 3. Soft tissue density within the right deep lateral breast soft tissues measuring up to 3.4 x 1.2 cm appears to correlate to region of previously seen hypermetabolic focus on comparison exam 10/26/2024. Repeat PET-CT may be obtained for assessment of the metabolic activity within this lesion. Redemonstration of similar appearing osseous metastatic disease. ABDOMEN-PELVIS: 1. No new subdiaphragmatic metastatic disease. Signed by: Renny Reveles 03/22/2025 10:56 AM Dictation workstation: [id number] [facility], [address] [place] [address], [address] [address] and TRANSTHORACIC ECHOCARDIOGRAM REPORT Patient Name: LIZBETH Zepeda HUSSAIN Lewis Physician: [id number] Vikram Schofield MD Study Date: 09/19/2024 Ordering Provider: [id number] RUEL LOZANO MRN/PID: [id number] Fellow: Nurse: Yany De Jesus RN Date of /Age: 401/26/1955 [employer] Pay Technician: Estefania De La Rosa RDCS years Gender assigned at F Additional Staff: : Height: 152.40 cm Admit Date: Weight: 61.69 kg Admission Status: Outpatient BSA / BMI: 1.58 m2 / 26.56 kg/m2 Blood Pressure: 134/67 mmHg Department Location: [facility] Study Type: TRANSTHORACIC ECHO (TTE) COMPLETE Diagnosis/ICD: Presence of prosthetic heart valve-Z95.2 Indication: AVR CPT Code: Echo Complete w Full Doppler-[id number] Patient History: Pertinent History: A-Fib, Hyperlipidemia and HTN. CABG X 2,,AVR #21mm Avalus ultra (08/01/24),Dilated ascending aorta,Adryan arch graft #28mm,Breast CA,Chemotherapy. Study Detail: The following Echo studies were performed: 2D, M-Mode, Doppler and color flow. Technically challenging study due to body habitus. Definity used as a contrast agent for endocardial border definition. Total contrast used for this procedure was 2 mL via IV push. Patient has a pacemaker. PHYSICIAN INTERPRETATION: Left Ventricle: The left ventricular systolic function is normal, with a visually estimated ejection fraction of 65-70%. There are no regional left ventricular wall motion abnormalities. The left ventricular cavity size is normal. There is moderately increased septal and mildly increased posterior left ventricular wall thickness. There is left ventricular concentric remodeling. Spectral Doppler shows a Grade I (impaired relaxation pattern) of left ventricular diastolic filling with normal left atrial filling pressure. Left Atrium: The left atrium is normal in size. Right Ventricle: The right ventricle is upper limits of normal in size. There is low normal right ventricular systolic function. A device is visualized in the right ventricle. Right Atrium: The right atrium is normal in size. There is a device visualized in the right atrium. Aortic Valve: There is a prosthetic aortic valve present. The aortic valve dimensionless index is 0.71. There is a Medtronic bioprosthetic type aortic valve bioprosthesis with a 21 mm reported size. Echo findings are consistent with normal aortic valve prosthesis structure and function. There is noevidence of aortic valve regurgitation. The peak instantaneous gradient of the aortic valve is 17 mmHg. The mean gradient of the aortic valve is 9 mmHg. Mitral Valve: The mitral valve is mildly thickened. There is mild to moderate mitral annular calcification. There is trace mitral valve regurgitation. Tricuspid Valve: The tricuspid valve is structurally normal. There is mild tricuspid regurgitation.The Doppler estimated RVSP is within normal limits at 27.2 mmHg. Pulmonic Valve: The pulmonic valve is structurally normal. There is mild pulmonic valve regurgitation. Pericardium: Trivial pericardial effusion. Aorta: The aortic root is normal. There is no dilatation of the aortic root. Systemic Veins: The inferior vena cava appears small in size. In comparison to the previous echocardiogram(s): Compared with study dated 08/07/2024, no significant change. CONCLUSIONS: 1. The left ventricular systolic function is normal, with a visually estimated ejection fraction of65-70%. 2. Spectral Doppler shows a Grade I (impaired relaxation pattern) of left ventricular diastolic filling with normal left atrial filling pressure. 3. There is moderately increased septal thickness. 4. Right ventricular systolic pressure is within normal limits. 5. There is a Medtronic bioprosthetic type aortic valve bioprosthesis with a 21 mm reported size. 6. Echo findings are consistent with normal aortic valve prosthesis structure and function. 7. There is low normal right ventricular systolic function. QUANTITATIVE DATA SUMMARY: 2D MEASUREMENTS: Normal Ranges: LAs: 4.67 cm (2.7-4.0cm) IVSd: 1.36 cm (0.6-1.1cm) LVPWd: 1.05 cm (0.6-1.1cm) LVIDd: 3.09 cm (3.9-5.9cm) LVIDs: 2.09 cm LV Mass Index: 72 g/m2 LVEDV Index: 56 ml/m2 LV % FS 32.3 % LA VOLUME: Normal Ranges: LA Vol A4C: 43.1 ml (22+/-6mL/m2) LA Vol A2C: 35.4 ml LA Vol BP: 43.0 ml LA Vol Index A4C: 27.2 ml/m2 LA Vol Index A2C: 22.4 ml/m2 LA Vol Index BP: 27.2 ml/m2 LA Area A4C: 17.0 cm2 LA Area A2C: 14.0 cm2 LA Major Hobson A4C: 5.7 cm LA Major Hobson A2C: 4.7 cm LA Volume Index: 27.0 ml/m2 LA Vol A4C: 41.2 ml LA Vol A2C: 34.7 ml LA Vol Index BSA: 24.0 ml/m2 RA VOLUME BY A/L METHOD: Normal Ranges: RA Vol A4C: 21.8 ml (8.3-19.5ml) RA Vol Index A4C: 13.8 ml/m2 RA Area A4C: 10.0 cm2 RA Major Hobson A4C: 3.9 cm M-MODE MEASUREMENTS: Normal Ranges: Ao Root: 2.60 cm (2.0-3.7cm) LAs: 4.70 cm (2.7-4.0cm) AORTA MEASUREMENTS: Normal Ranges: Asc Ao, d: 3.00 cm (2.1-3.4cm) LV SYSTOLIC FUNCTION BY 2D PLANIMETRY (MOD): Normal Ranges: EF-A4C View: 64 % (>=55%) EF-A2C View: 65 % EF-Biplane: 65 % EF-Visual: 68 % LV EF Reported: 68 % LV DIASTOLIC FUNCTION: Normal Ranges: MV Peak E: 1.01 m/s (0.7-1.2 m/s) MV Peak A: 1.24 m/s (0.42-0.7 m/s) E/A Ratio: 0.81 (1.0-2.2) MV e' 0.074 m/s (>8.0) MV lateral e' 0.10 m/s MV medial e' 0.05 m/s MV A Dur: 161.75 msec E/e' Ratio: 13.73 (<8.0) PulmV Sys Vaughn: 35.06 cm/s PulmV Rios Vaughn: 41.13 cm/s PulmV S/D Vaughn: 0.85 PulmV A Revs Vaughn: 25.89 cm/s PulmV A Revs Dur: 148.43 msec MITRAL VALVE: Normal Ranges: MV DT: 229 msec (150-240msec) AORTIC VALVE: Normal Ranges: AoV Vmax: 2.06 m/s (<=1.7m/s) AoV Peak P.1 mmHg (<20mmHg) AoV Mean P.7 mmHg (1.7-11.5mmHg) LVOT Max Vaughn: 1.34 m/s (<=1.1m/s) AoV VTI: 43.23 cm (18-25cm) LVOT VTI: 30.83 cm LVOT Diameter: 1.82 cm (1.8-2.4cm) AoV Area, VTI: 1.85 cm2 (2.5-5.5cm2) AoV Area,Vmax: 1.68 cm2 (2.5-4.5cm2) AoV Dimensionless Index: 0.71 RIGHT VENTRICLE: RV Basal 3.30 cm RV Mid 2.40 cm RV Major 5.6 cm TAPSE: 12.3 mm RV s' 0.08 m/s TRICUSPID VALVE/RVSP: Normal Ranges: Peak TR Velocity: 2.46 m/s RV Syst Pressure: 27 mmHg (< 30mmHg) IVC Diam: 1.10 cm PULMONIC VALVE: Normal Ranges: PV Accel Time: 89 msec (>120ms) PV Max Vaughn: 1.1 m/s (0.6-0.9m/s) PV Max P.6 mmHg Pulmonary Veins: PulmV A Revs Dur: 148.43 msec PulmV A Revs Vaughn: 25.89 cm/s PulmV Rios Vaughn: 41.13 cm/s PulmV S/D Vaughn: 0.85 PulmV Sys Vaughn: 35.06 cm/s LABORATORY/PATHOLOGY DATA Infusion on 03/08/2025 Component Date Value Ref Range Status Glucose 03/08/2025 98 74 - 99 mg/dL Final Sodium 03/08/2025 139 136 - 145 mmol/L Final Potassium 03/08/2025 3.6 3.5 - 5.3 mmol/L Final Chloride 03/08/2025 102 98 - 107 mmol/L Final Bicarbonate 03/08/2025 31 21 - 32 mmol/L Final Anion Gap 03/08/2025 10 10 - 20 mmol/L Final Urea Nitrogen 03/08/2025 10 6 - 23 mg/dL Final Creatinine 03/08/2025 0.79 0.50 - 1.05 mg/dL Final eGFR 03/08/2025 80 >60 mL/min/1.73m*2 Final Calcium 03/08/2025 8.5 (L) 8.6 - 10.6 mg/dL Final Albumin 03/08/2025 4.1 3.4 - 5.0 g/dL Final Alkaline Phosphatase 03/08/2025 96 33 - 136 U/L Final Total Protein 03/08/2025 6.2 (L) 6.4 - 8.2 g/dL Final AST 03/08/2025 30 9 - 39 U/L Final Bilirubin, Total 03/08/2025 0.4 0.0 - 1.2 mg/dL Final ALT 03/08/2025 31 7 - 45 U/L Final WBC 03/08/2025 4.3 (L) 4.4 - 11.3 x10*3/uL Final nRBC 03/08/2025 Final RBC 03/08/2025 3.16 (L) 4.00 - 5.20 x10*6/uL Final Hemoglobin 03/08/2025 10.2 (L) 12.0 - 16.0 g/dL Final Hematocrit 03/08/2025 30.0 (L) 36.0 - 46.0 % Final MCV 03/08/2025 95 80 - 100 fL Final MCH 03/08/2025 32.3 26.0 - 34.0 pg Final MCHC 03/08/2025 34.0 32.0 - 36.0 g/dL Final RDW 03/08/2025 16.1 (H) 11.5 - 14.5 % Final Platelets 03/08/2025 161 150 - 450 x10*3/uL Final Neutrophils % 03/08/2025 64.7 40.0 - 80.0 % Final Immature Granulocytes %, Automated 03/08/2025 0.0 0.0 - 0.9 % Final Lymphocytes % 03/08/2025 25.2 13.0 - 44.0 % Final Monocytes % 03/08/2025 8.2 2.0 - 10.0 % Final Eosinophils % 03/08/2025 1.9 0.0 - 6.0 % Final Basophils % 03/08/2025 0.0 0.0 - 2.0 % Final Neutrophils Absolute 03/08/2025 2.78 1.60 - 5.50 x10*3/uL Final Immature Granulocytes Absolute, Au* 03/08/2025 0.00 0.00 - 0.50 x10*3/uL Final Lymphocytes Absolute 03/08/2025 1.08 0.80 - 3.00 x10*3/uL Final Monocytes Absolute 03/08/2025 0.35 0.05 - 0.80 x10*3/uL Final Eosinophils Absolute 03/08/2025 0.08 0.00 - 0.40 x10*3/uL Final Basophils Absolute 03/08/2025 0.00 0.00 - 0.10 x10*3/uL Final CA 27.29 03/08/2025 28.9 0.0 - 38.6 U/mL Final Infusion on 02/20/2025 Component Date Value Ref Range Status Glucose 02/20/2025 90 74 - 99 mg/dL Final Sodium 02/20/2025 139 136 - 145 mmol/L Final Potassium 02/20/2025 3.9 3.5 - 5.3 mmol/L Final Chloride 02/20/2025 102 98 - 107 mmol/L Final Bicarbonate 02/20/2025 29 21 - 32 mmol/L Final Anion Gap 02/20/2025 12 10 - 20 mmol/L Final Urea Nitrogen 02/20/2025 10 6 - 23 mg/dL Final Creatinine 02/20/2025 0.82 0.50 - 1.05 mg/dL Final eGFR 02/20/2025 77 >60 mL/min/1.73m*2 Final Calcium 02/20/2025 8.4 (L) 8.6 - 10.6 mg/dL Final Albumin 02/20/2025 4.1 3.4 - 5.0 g/dL Final Alkaline Phosphatase 02/20/2025 106 33 - 136 U/L Final Total Protein 02/20/2025 6.3 (L) 6.4 - 8.2 g/dL Final AST 02/20/2025 33 9 - 39 U/L Final Bilirubin, Total 02/20/2025 0.5 0.0 - 1.2 mg/dL Final ALT 02/20/2025 30 7 - 45 U/L Final WBC 02/20/2025 4.3 (L) 4.4 - 11.3 x10*3/uL Final nRBC 02/20/2025 Final RBC 02/20/2025 3.48 (L) 4.00 - 5.20 x10*6/uL Final Hemoglobin 02/20/2025 10.7 (L) 12.0 - 16.0 g/dL Final Hematocrit 02/20/2025 32.7 (L) 36.0 - 46.0 % Final MCV 02/20/2025 94 80 - 100 fL Final MCH 02/20/2025 30.7 26.0 - 34.0 pg Final MCHC 02/20/2025 32.7 32.0 - 36.0 g/dL Final RDW 02/20/2025 16.5 (H) 11.5 - 14.5 % Final Platelets 02/20/2025 181 150 - 450 x10*3/uL Final Neutrophils % 02/20/2025 54.6 40.0 - 80.0 % Final Immature Granulocytes %, Automated 02/20/2025 0.2 0.0 - 0.9 % Final Lymphocytes % 02/20/2025 33.3 13.0 - 44.0 % Final Monocytes % 02/20/2025 8.6 2.0 - 10.0 % Final Eosinophils % 02/20/2025 2.8 0.0 - 6.0 % Final Basophils % 02/20/2025 0.5 0.0 - 2.0 % Final Neutrophils Absolute 02/20/2025 2.36 1.60 - 5.50 x10*3/uL Final Immature Granulocytes Absolute, Au* 02/20/2025 0.01 0.00 - 0.50 x10*3/uL Final Lymphocytes Absolute 02/20/2025 1.44 0.80 - 3.00 x10*3/uL Final Monocytes Absolute 02/20/2025 0.37 0.05 - 0.80 x10*3/uL Final Eosinophils Absolute 02/20/2025 0.12 0.00 - 0.40 x10*3/uL Final Basophils Absolute 02/20/2025 0.02 0.00 - 0.10 x10*3/uL Final CA 27.29 02/20/2025 28.3 0.0 - 38.6 U/mL Final Outside pathology report reviewed. IMPRESSION/PLAN [id number] HER2+/ER-/WV- right sided breast cancer. Post aortic valve repair surgery she is a candidate for her2 therapy. I have discussed with Dr Bae who has recommended that it is safe to proceed but she would require Q3 month echos. Insurance denied q3 month echos. Seeing cardiology soon. No clinical symptoms of heart failure. CT scans show response to treatment. RTC in 6 wks Decreased appetite/wt loss. Family asking for appetite stimulator. Will refer to supportive oncology I personally spent over half of a total 35 minutes face to face with the patient and family in counseling and discussion and/or coordination of care as described above. Marcelo Davey MD Director of Breast Cancer Medical Oncology Research Program [facility] environmental communications specialist [facility] [place] [id number] [place] [address] [address], [address] [place] [id number] [email or web address] documented in this [facility] Work Phone: [phone]) 252-823206-11-2025 Instructions* Patient Instructions* Marcelo Davey MD - 03/28/2025 10:20 AM EDT Follow-up in about 6 wks with neli Referral for supportive oncology for appetite improvment Continue present treatments documented in this encounterUn[facility]y Hospital Work Phone: 1(595) 895-741704-30-2025 History of Present illness Narrative* Neli Cox APRN-KATELIN - 02/14/2025 10:30 AM EDT Images from the original note were not included. Breast Medical Oncology Clinic Location: [facility] BREAST CANCER DIAGNOSIS Malignant neoplasm of lower-outer quadrant of right breast of female, estrogen receptor negative, Clinical: Stage IIB (cT2(m), cN1(f), cM0, G3, ER-, WV-, HER2+) Malignant neoplasm of lower-outer quadrant of right breast of female, estrogen receptor negative, Pathologic: Stage IV (cM1, ER-, WV-, HER2+) ONCOLOGIC HISTORY S/p 3 cycles of dose reduced gemcitabine/carboplatin days 1 and 8 q21 days from 03/30/24 to 05/31/24 Trastuzumab single agent 10/09/24 and 10/30/24 Incidentally found breast cancer after chest CT for heart surgery work up (she has aortic valve disease) found breast mass and axillary adenopathy in the right breast. Biopsy of both revealed HER2+, ER/WV- breast cancer. Other outside staging workup raised the possibility of oligo bone metastases however the data was unconvincing. Outside PET/CT vaguely showed two areas in the upper spine but MRIsuggests that this could be degenerative disease. Bone scan was definitely negative for bone mets. Cardio-oncology advised against Her2 mAB therapy as she has little cardiac reserve until able to complete aortic valve repair first. Was on gem/carbo with clinical response in breast March-May 2024 Shecame back post cardiac surgery on 08/02/24. Restaging at that time revealed re-growth of breast mass and more obvious FDG uptake in spine. Cleared by Cards for gemcitabine/trastuzumab/pertuzumab CURRENT THERAPY gemcitabine/trastuzumab/pertuzumab since 11/30/24 HISTORY OF PRESENT ILLNESS Lizbeth Nixon is a 70 y.o. woman with IV breast cancer here for treatment follow up. Today I have reviewed with the patient I will be conducting a clinical physical breast exam. Patient has declined a second medical professional today during the exam as a chapperone. She is accompanied today by alex Caruso. She has continued on current regimen every 3 weeks. She feels well and feels this treatment is tolerable. She reports fatigue is stable and is manageable. She is able to complete ADL's . She reports she is sleeping well. She reports stable appetite and weight. No nausea and normal bowels. She denies any chest pain or breathing issues, no exertional sob or cough. She denies any vision changes or headache issues, dizziness. She reports baseline issue with intermittent balance issues. She denies any falls. She denies any new or unexplained bone aches or pains She denies any skin lesions or masses, oral sores lesions or infections. She denies any pains in the right breast- no masses. She denies any issues with sleep Review of Systems ROS 14 points performed, See HPI for exceptions Past Medical History: has a past medical history of Anxiety, Aortic valve insufficiency, Arrhythmia, Arthritis, Ascending aorta dilatation, Ascending aorta dilation, Breast cancer (Multi), Cerebral vascular accident (Multi), CHF (congestive heart failure), Congestive heart failure (12/01/2023), Coronary artery disease, Depression, Dizziness, GERD (gastroesophageal reflux disease), HOCM (hypertrophic obstructive cardiomyopathy) (Multi) (12/01/2023), transfusion of platelets, Hyperlipidemia, Hypertension, Illness, unspecified (05/13/2024), Irregular heart beat, Joint pain, Occlusion and stenosis of bilateral carotid arteries (12/01/2023), Old myocardial infarction, Other chest pain (12/01/2023), Presence of combination internal cardiac defibrillator (ICD) and pacemaker, Rhabdomyolysis (06/05/2024), Shortness of breath, Thrombocytopenia (CMS-HCC) (06/05/2024), TIA (transient ischemic attack), Urgency of urination (03/15/2024), and Vision loss. Surgical History: has a past surgical history that includes Other surgical history (07/20/2019); Other surgical history (07/24/2019); Tonsillectomy; Hysterectomy; Cardiac catheterization; Coronary stent placement; Breast biopsy; Coronary artery bypass graft (2004); Insert / replace / remove pacemaker (2010); Aortic valve replacement (2004); Cardiac valve replacement; and Abdominal aortic aneurysmrepair (2004). Social History: reports that she quit smoking about 20 years ago. Her smoking use included cigarettes. She has never been exposed to tobacco smoke. She has never used smokeless tobacco. She reports that she does not drink alcohol and does not use drugs. Family History: Family History Problem Relation Name Age of Onset Breast cancer Mother Cancer Mother colon and breast Heart disease Father Breast cancer Sister Cancer Sister breast Family Oncology History: Cancer-related family history includes Breast cancer in her mother and sister; Cancer in her mother and sister. OBJECTIVE VS / Pain: BP 135/75 (BP Location: Right arm, Patient Position: Sitting, BP Cuff Size: Small adult) Pulse 62 Temp 36.4 C (97.5 F) (Temporal) Wt 57.2 kg (126 lb 3.2 oz) LMP (LMP Unknown) SpO2 96% BMI 25.04 kg/m BSA: 1.55 meters squared Pain Scale: 2 Performance Status: The ECOG performance scale today is ECO- Restricted in physically strenuous activity. Carries out light duty. Physical Exam Constitutional: Well developed, awake/alert/oriented x4, no distress, alert and cooperative EYES: Sclera clear ENMT: mucous membranes moist, no apparent injury, no lesions seen Head/Neck: Neck supple, no apparent injury, thyroid without mass or tenderness, No JVD, trachea midline, no bruits Respiratory / Thoracic: Patent airways, clear to all lobes, normal breath sounds with good chest expansion, thorax symmetric. Cardiovascular: Regular, rate and rhythm, Audible aortic valve replacement., 2+ equal pulses of theextremities, normal auscultated S 1and S 2. Palpable AICD/ Pacer Left upper chest wall GI: Nondistended, soft, non-tender, no rebound tenderness or guarding, no masses palpable, no organomegaly, +BS, no bruits Musculoskeletal: ROM intact, no joint swelling, normal strength, no spinal tenderness Extremities: normal extremities, no cyanosis edema, contusions or wounds, no clubbing Neurological: alert and oriented x4, intact senses, motor, response and reflexes, normal strength Breast: No palpable masses in bilateral breasts Lymphatic: No cervical, supraclavicular, infraclavicular or axillary lymphadenopathy Psychological: Appropriate and talkative mood and behavior Skin: Warm and dry, no lesions, no rashes, no jaundice Diagnostic Results [facility], [address] [place] [address], [address], [place] [address] and TRANSTHORACIC ECHOCARDIOGRAM REPORT Patient Name: LIZBETH Lewis Physician: [id number] Vikram Schofield MD Study Date: 09/19/2024 Ordering Provider: [id number] RUEL LOZANO MRN/PID: [id number] Fellow: Nurse: Yany De Jesus RN Date of /Age: 401/26/1955 [employer] Pay Technician: Estefania De La Rosa RDCS years Gender assigned at Additional Staff: : Height: 152.40 cm Admit Date: Weight: 61.69 kg Admission Status: Outpatient BSA / BMI: 1.58 m2 / 26.56 kg/m2 Blood Pressure: 134/67 mmHg Department Location: [facility] Study Type: TRANSTHORACIC ECHO (TTE) COMPLETE Diagnosis/ICD: Presence of prosthetic heart valve-Z95.2 Indication: AVR CPT Code: Echo Complete w Full Doppler-19095 Patient History: Pertinent History: A-Fib, Hyperlipidemia and HTN. CABG X 2,,AVR #21mm Avalus ultra (08/01/24),Dilated ascending aorta,Adryan arch graft #28mm,Breast CA,Chemotherapy. Study Detail: The following Echo studies were performed: 2D, M-Mode, Doppler and color flow. Technically challenging study due to body habitus. Definity used as a contrast agent for endocardial border definition. Total contrast used for this procedure was 2 mL via IV push. Patient has a pacemaker. PHYSICIAN INTERPRETATION: Left Ventricle: The left ventricular systolic function is normal, with a visually estimated ejection fraction of 65-70%. There are no regional left ventricular wall motion abnormalities. The left ventricular cavity size is normal. There is moderately increased septal and mildly increased posterior left ventricular wall thickness. There is left ventricular concentric remodeling. Spectral Doppler shows a Grade I (impaired relaxation pattern) of left ventricular diastolic filling with normal left atrial filling pressure. Left Atrium: The left atrium is normal in size. Right Ventricle: The right ventricle is upper limits of normal in size. There is low normal right ventricular systolic function. A device is visualized in the right ventricle. Right Atrium: The right atrium is normal in size. There is a device visualized in the right atrium. Aortic Valve: There is a prosthetic aortic valve present. The aortic valve dimensionless index is 0.71. There is a Medtronic bioprosthetic type aortic valve bioprosthesis with a 21 mm reported size. Echo findings are consistent with normal aortic valve prosthesis structure and function. There is noevidence of aortic valve regurgitation. The peak instantaneous gradient of the aortic valve is 17 mmHg. The mean gradient of the aortic valve is 9 mmHg. Mitral Valve: The mitral valve is mildly thickened. There is mild to moderate mitral annular calcification. There is trace mitral valve regurgitation. Tricuspid Valve: The tricuspid valve is structurally normal. There is mild tricuspid regurgitation.The Doppler estimated RVSP is within normal limits at 27.2 mmHg. Pulmonic Valve: The pulmonic valve is structurally normal. There is mild pulmonic valve regurgitation. Pericardium: Trivial pericardial effusion. Aorta: The aortic root is normal. There is no dilatation of the aortic root. Systemic Veins: The inferior vena cava appears small in size. In comparison to the previous echocardiogram(s): Compared with study dated 08/07/2024, no significant change. CONCLUSIONS: 1. The left ventricular systolic function is normal, with a visually estimated ejection fraction of65-70%. 2. Spectral Doppler shows a Grade I (impaired relaxation pattern) of left ventricular diastolic filling with normal left atrial filling pressure. 3. There is moderately increased septal thickness. 4. Right ventricular systolic pressure is within normal limits. 5. There is a Medtronic bioprosthetic type aortic valve bioprosthesis with a 21 mm reported size. 6. Echo findings are consistent with normal aortic valve prosthesis structure and function. 7. There is low normal right ventricular systolic function. QUANTITATIVE DATA SUMMARY: 2D MEASUREMENTS: Normal Ranges: LAs: 4.67 cm (2.7-4.0cm) IVSd: 1.36 cm (0.6-1.1cm) LVPWd: 1.05 cm (0.6-1.1cm) LVIDd: 3.09 cm (3.9-5.9cm) LVIDs: 2.09 cm LV Mass Index: 72 g/m2 LVEDV Index: 56 ml/m2 LV % FS 32.3 % LA VOLUME: Normal Ranges: LA Vol A4C: 43.1 ml (22+/-6mL/m2) LA Vol A2C: 35.4 ml LA Vol BP: 43.0 ml LA Vol Index A4C: 27.2 ml/m2 LA Vol Index A2C: 22.4 ml/m2 LA Vol Index BP: 27.2 ml/m2 LA Area A4C: 17.0 cm2 LA Area A2C: 14.0 cm2 LA Major Hobson A4C: 5.7 cm LA Major Hobson A2C: 4.7 cm LA Volume Index: 27.0 ml/m2 LA Vol A4C: 41.2 ml LA Vol A2C: 34.7 ml LA Vol Index BSA: 24.0 ml/m2 RA VOLUME BY A/L METHOD: Normal Ranges: RA Vol A4C: 21.8 ml (8.3-19.5ml) RA Vol Index A4C: 13.8 ml/m2 RA Area A4C: 10.0 cm2 RA Major Hobson A4C: 3.9 cm M-MODE MEASUREMENTS: Normal Ranges: Ao Root: 2.60 cm (2.0-3.7cm) LAs: 4.70 cm (2.7-4.0cm) AORTA MEASUREMENTS: Normal Ranges: Asc Ao, d: 3.00 cm (2.1-3.4cm) LV SYSTOLIC FUNCTION BY 2D PLANIMETRY (MOD): Normal Ranges: EF-A4C View: 64 % (>=55%) EF-A2C View: 65 % EF-Biplane: 65 % EF-Visual: 68 % LV EF Reported: 68 % LV DIASTOLIC FUNCTION: Normal Ranges: MV Peak E: 1.01 m/s (0.7-1.2 m/s) MV Peak A: 1.24 m/s (0.42-0.7 m/s) E/A Ratio: 0.81 (1.0-2.2) MV e' 0.074 m/s (>8.0) MV lateral e' 0.10 m/s MV medial e' 0.05 m/s MV A Dur: 161.75 msec E/e' Ratio: 13.73 (<8.0) PulmV Sys Vaughn: 35.06 cm/s PulmV Rios Vaughn: 41.13 cm/s PulmV S/D Vaughn: 0.85 PulmV A Revs Vaughn: 25.89 cm/s PulmV A Revs Dur: 148.43 msec MITRAL VALVE: Normal Ranges: MV DT: 229 msec (150-240msec) AORTIC VALVE: Normal Ranges: AoV Vmax: 2.06 m/s (<=1.7m/s) AoV Peak P.1 mmHg (<20mmHg) AoV Mean P.7 mmHg (1.7-11.5mmHg) LVOT Max Vaughn: 1.34 m/s (<=1.1m/s) AoV VTI: 43.23 cm (18-25cm) LVOT VTI: 30.83 cm LVOT Diameter: 1.82 cm (1.8-2.4cm) AoV Area, VTI: 1.85 cm2 (2.5-5.5cm2) AoV Area,Vmax: 1.68 cm2 (2.5-4.5cm2) AoV Dimensionless Index: 0.71 RIGHT VENTRICLE: RV Basal 3.30 cm RV Mid 2.40 cm RV Major 5.6 cm TAPSE: 12.3 mm RV s' 0.08 m/s TRICUSPID VALVE/RVSP: Normal Ranges: Peak TR Velocity: 2.46 m/s RV Syst Pressure: 27 mmHg (< 30mmHg) IVC Diam: 1.10 cm PULMONIC VALVE: Normal Ranges: PV Accel Time: 89 msec (>120ms) PV Max Vaughn: 1.1 m/s (0.6-0.9m/s) PV Max P.6 mmHg Pulmonary Veins: PulmV A Revs Dur: 148.43 msec PulmV A Revs Vaughn: 25.89 cm/s PulmV Rios Vaughn: 41.13 cm/s PulmV S/D Vaughn: 0.85 PulmV Sys Vaughn: 35.06 cm/s I MAMMO RIGHT DIAGNOSTIC TOMOSYNTHESIS; BI US BREAST LIMITED RIGHT; 09/20/2024 1:50 pm; 09/20/2024 2:16 pm ACCESSION NUMBER(S): [id number]; [id number] ORDERING CLINICIAN: MARCELO DAVEY INDICATION: Multifocal right breast cancer with preoperative chemotherapy terminated May 2024. Mag seed placement within 3 right breast masses and right axillary lymph node performed 03/14/2024. Preoperative evaluation. ,C50.919 Malignant neoplasm of unspecified site of unspecified female breast,Z17.0 Estrogen receptor positive status (ER+),C50.511 Malignant neoplasm of lower-outer quadrant of right female breast,Z17.1 Estrogen receptor negative status (ER-) COMPARISON: Right mammograms 03/14/2024, 02/09/2024, 11/25/2023. Right breast ultrasound 02/09/2024 with Mag seed placement 03/14/2024 FINDINGS: MAMMOGRAPHY: 2D and tomosynthesis images were reviewed at 1 mm slice thickness. Density: There are scattered areas of fibroglandular density. A partially visualized mass with associated tissue marker and Mag seed is identified in the deep central right breast at the level of the pectoralis muscle, seen only on the MLO view. No suspicious masses or calcifications are identified. The 3 biopsy-proven sites of malignancy are posteriorly located and not included in the mammographic field of view. A MediPort overlies the right axilla. A single low-lying prominent axillary lymph node is visualized. Additional benign-appearing right axillary lymph nodes are visualized. ULTRASOUND: Targeted ultrasound was performed of the lower outer right breast and right axilla by a registered wireline supervisor with elastography. The biopsy-proven malignancy at the 8 o'clock position of the right breast 7 cm from the nipple measures 1.7 x 1.5 x 1.6 cm (previously 2.1 x 2.4 by 1.8 cm). There is an internal biopsy clip and Mag seed. The biopsy-proven malignancy at the 7 o'clock position of the right breast 7 cm from the nipple measures 0.7 x 0.6 x 0.5 cm (previously 0.8 x 0.7 x 0.6 cm). The associated Mag seed is not well seen. The biopsy-proven malignancy at the 6 o'clock position 4 cm from the nipple measures 1.2 x 0.8 x 0.9 cm (previously 1.5 x 0.9 x 1.3 cm). The associated tissue marker and Mag seed are visualized. Biopsied right axillary lymph node remains stable when accounting for differences in scanning, measuring 1.3 by 1.6 x 1.3 cm. The associated tissue marker and Mag seed are visualized. There is a hypoechoic tract extending to the skin surface consistent with post biopsy change. IMPRESSION: Multifocal breast cancer with either interval decrease in size or stability compared with pre biopsy imaging 02/09/2024. Mag seed placement has already been performed. BI-RADS CATEGORY: BI-RADS CATEGORY: 6 Known Biopsy-Proven Malignancy. Recommendation: Immediate Follow-up. Recommended Date: Immediate. Laterality: Right. For any future breast imaging appointments, please call [phone] ([phone]). LABORATORY/PATHOLOGY DATA Infusion on 01/29/2025 Component Date Value Ref Range Status Glucose 01/29/2025 93 74 - 99 mg/dL Final Sodium 01/29/2025 141 136 - 145 mmol/L Final Potassium 01/29/2025 3.7 3.5 - 5.3 mmol/L Final Chloride 01/29/2025 101 98 - 107 mmol/L Final Bicarbonate 01/29/2025 31 21 - 32 mmol/L Final Anion Gap 01/29/2025 13 10 - 20 mmol/L Final Urea Nitrogen 01/29/2025 12 6 - 23 mg/dL Final Creatinine 01/29/2025 0.75 0.50 - 1.05 mg/dL Final eGFR 01/29/2025 85 >60 mL/min/1.73m*2 Final Calcium 01/29/2025 8.8 8.6 - 10.6 mg/dL Final Albumin 01/29/2025 4.3 3.4 - 5.0 g/dL Final Alkaline Phosphatase 01/29/2025 99 33 - 136 U/L Final Total Protein 01/29/2025 6.6 6.4 - 8.2 g/dL Final AST 01/29/2025 24 9 - 39 U/L Final Bilirubin, Total 01/29/2025 0.4 0.0 - 1.2 mg/dL Final ALT 01/29/2025 19 7 - 45 U/L Final WBC 01/29/2025 3.4 (L) 4.4 - 11.3 x10*3/uL Final nRBC 01/29/2025 Final RBC 01/29/2025 3.61 (L) 4.00 - 5.20 x10*6/uL Final Hemoglobin 01/29/2025 10.9 (L) 12.0 - 16.0 g/dL Final Hematocrit 01/29/2025 33.2 (L) 36.0 - 46.0 % Final MCV 01/29/2025 92 80 - 100 fL Final MCH 01/29/2025 30.2 26.0 - 34.0 pg Final MCHC 01/29/2025 32.8 32.0 - 36.0 g/dL Final RDW 01/29/2025 16.7 (H) 11.5 - 14.5 % Final Platelets 01/29/2025 178 150 - 450 x10*3/uL Final Neutrophils % 01/29/2025 53.9 40.0 - 80.0 % Final Immature Granulocytes %, Automated 01/29/2025 0.3 0.0 - 0.9 % Final Lymphocytes % 01/29/2025 32.8 13.0 - 44.0 % Final Monocytes % 01/29/2025 8.3 2.0 - 10.0 % Final Eosinophils % 01/29/2025 4.4 0.0 - 6.0 % Final Basophils % 01/29/2025 0.3 0.0 - 2.0 % Final Neutrophils Absolute 01/29/2025 1.82 1.60 - 5.50 x10*3/uL Final Immature Granulocytes Absolute, Au* 01/29/2025 0.01 0.00 - 0.50 x10*3/uL Final Lymphocytes Absolute 01/29/2025 1.11 0.80 - 3.00 x10*3/uL Final Monocytes Absolute 01/29/2025 0.28 0.05 - 0.80 x10*3/uL Final Eosinophils Absolute 01/29/2025 0.15 0.00 - 0.40 x10*3/uL Final Basophils Absolute 01/29/2025 0.01 0.00 - 0.10 x10*3/uL Final Infusion on 01/08/2025 Component Date Value Ref Range Status WBC 01/08/2025 4.9 4.4 - 11.3 x10*3/uL Final nRBC 01/08/2025 Final RBC 01/08/2025 3.48 (L) 4.00 - 5.20 x10*6/uL Final Hemoglobin 01/08/2025 10.4 (L) 12.0 - 16.0 g/dL Final Hematocrit 01/08/2025 31.8 (L) 36.0 - 46.0 % Final MCV 01/08/2025 91 80 - 100 fL Final MCH 01/08/2025 29.9 26.0 - 34.0 pg Final MCHC 01/08/2025 32.7 32.0 - 36.0 g/dL Final RDW 01/08/2025 15.6 (H) 11.5 - 14.5 % Final Platelets 01/08/2025 157 150 - 450 x10*3/uL Final Neutrophils % 01/08/2025 58.6 40.0 - 80.0 % Final Immature Granulocytes %, Automated 01/08/2025 0.2 0.0 - 0.9 % Final Lymphocytes % 01/08/2025 30.7 13.0 - 44.0 % Final Monocytes % 01/08/2025 7.2 2.0 - 10.0 % Final Eosinophils % 01/08/2025 2.9 0.0 - 6.0 % Final Basophils % 01/08/2025 0.4 0.0 - 2.0 % Final Neutrophils Absolute 01/08/2025 2.85 1.20 - 7.70 x10*3/uL Final Immature Granulocytes Absolute, Au* 01/08/2025 0.01 0.00 - 0.70 x10*3/uL Final Lymphocytes Absolute 01/08/2025 1.49 1.20 - 4.80 x10*3/uL Final Monocytes Absolute 01/08/2025 0.35 0.10 - 1.00 x10*3/uL Final Eosinophils Absolute 01/08/2025 0.14 0.00 - 0.70 x10*3/uL Final Basophils Absolute 01/08/2025 0.02 0.00 - 0.10 x10*3/uL Final Glucose 01/08/2025 83 74 - 99 mg/dL Final Sodium 01/08/2025 139 136 - 145 mmol/L Final Potassium 01/08/2025 3.9 3.5 - 5.3 mmol/L Final Chloride 01/08/2025 100 98 - 107 mmol/L Final Bicarbonate 01/08/2025 27 21 - 32 mmol/L Final Anion Gap 01/08/2025 16 10 - 20 mmol/L Final Urea Nitrogen 01/08/2025 10 6 - 23 mg/dL Final Creatinine 01/08/2025 0.82 0.50 - 1.05 mg/dL Final eGFR 01/08/2025 77 >60 mL/min/1.73m*2 Final Calcium 01/08/2025 8.5 (L) 8.6 - 10.6 mg/dL Final Albumin 01/08/2025 4.2 3.4 - 5.0 g/dL Final Alkaline Phosphatase 01/08/2025 115 33 - 136 U/L Final Total Protein 01/08/2025 6.7 6.4 - 8.2 g/dL Final AST 01/08/2025 17 9 - 39 U/L Final Bilirubin, Total 01/08/2025 0.4 0.0 - 1.2 mg/dL Final ALT 01/08/2025 14 7 - 45 U/L Final Outside pathology report reviewed. IMPRESSION/PLAN [id number] HER2+/ER-/WV- right sided breast cancer. Post aortic valve repair surgery she is a candidate for her2 therapy. Previous discussion with Dr Bae who has recommended that it is safe to proceed but she would require Q3 month echos. Given the severe thrombocytopenia/neutropenia with day 1 and 8 gemcitabine did eliminate day 8 and give dosereduced gemcitabine only on day 1 with trastuzumab/pertuzumab. No evidence of any drug related intolerances or toxicities. She is doing well and has good energy without any concerning side effects. Will continue with current regimen. Planned repeat ECHO scheduled for 02/27/25. RTC in 5-[address] Order placed for Scan, port apts 1-2 days prior to each treatment and prior to restaging CT. Follow up with Dr Marcelo Davey 03/28/25 At least 30 minutes of direct consultation was spent with the patient today reviewing her cancer care plan, cancer features, educating and answering questions regarding ongoing follow up, greater than 50% in counseling and coordination of care Thank you for the opportunity to be involved your care. We discussed the clinical significance of diagnosis, goals of care and treatment plan in detail. Please do not hesitate to reach out with any questions. Neli Cox MSN, MOTION PICTURE PROJECTIONIST, SENIOR QUALITY ASSURANCE SPECIALIST-C [facility] Division of Medical Oncology- Breast Collaborating Physician Dr. Marcelo Davey Team [facility] [place] [address] Available via Secure Chat Confidential Peer Review Document- Pantographer Privilege Privileged Pursuant to [place] Revised Code Section 2305.24, .25, .251 & .252 documented in this [facility] Work Phone: [phone]) 311-360404-30-2025 Instructions* Patient Instructions* WILEY Carlson - 02/14/2025 10:30 AM EDT Planned repeat ECHO scheduled for 02/27/25 and Onco cardiology follow up 03/08/25 with Elizabeth Page CNP Continue treatment every 3 weeks- Week of 02/19, 03/12, April 02. I have added port apts prior to each therapy RTC in 5-6 weeks with restaging CT- complete this Early March 23 or after with follow up Dr Davey on 03/28/25. Please call [phone] with any questions or concerns prior to your next office visit. documented in this [facility] Work Phone: [phone] 607-931803-19-2025 History of Present illness Narrative* Marcelo Davey MD - 01/03/2025 9:20 AM EDT Images from the original note were not included. Breast [facility] Oncology Clinic Location: Virtual BREAST CANCER DIAGNOSIS Malignant neoplasm of lower-outer quadrant of right breast of female, estrogen receptor negative, Clinical: Stage IIB (cT2(m), cN1(f), cM0, G3, ER-, WV-, HER2+) Malignant neoplasm of lower-outer quadrant of right breast of female, estrogen receptor negative, Pathologic: Stage IV (cM1, ER-, WV-, HER2+) ONCOLOGIC HISTORY S/p 3 cycles of dose reduced gemcitabine/carboplatin days 1 and 8 q21 days from 03/30/24 to 05/31/24 Trastuzumab single agent 10/09/24 and 10/30/24 CURRENT THERAPY emcitabine/trastuzumab/pertuzumab since 11/30/24 HISTORY OF PRESENT ILLNESS Lizbeth Nixon is a 69 y.o. woman with incidentally found breast cancer after chest CT for heart surgery work up (she has aortic valve disease) found breast mass and axillary adenopathy in the right breast. Biopsy of both revealed HER2+, ER/WV- breast cancer. Other outside staging workup raised the possibility of oligo bone metastases however the data was unconvincing. Outside PET/CT vaguely showed two areas in the upper spine but MRI suggests that this could be degenerative disease. Bone scan was definitely negative for bone mets. Cardio- oncology advised against Her2 mAB therapy as she has little cardiac reserve and will need to have aortic valve repair first. She has been on gem/carbo with clinical response in breast. She came back post cardiac surgery on 08/02/24. Restaging at that timerevealed re-growth of breast mass and more obvious FDG uptake in spine. After cleared by cardiology patient received gemcitabine/trastuzumab/pertuzumab on 11/30/24. She ended up in hospital about 2 wks ago with profound neutropenia and thrombocytopenia. She's back to baseline now and feels well. Review of Systems Constitutional: Positive for fatigue. Negative for appetite change, chills and diaphoresis. HENT: Negative. Negative for hearing loss and lump/mass. Eyes: Negative. Negative for eye problems and icterus. Respiratory: Negative. Negative for chest tightness, cough, hemoptysis, shortness of breath and wheezing. Cardiovascular: Negative. Negative for chest pain, leg swelling and palpitations. Gastrointestinal: Negative for abdominal distention, abdominal pain, blood in stool, constipation, diarrhea and nausea. Endocrine: Negative for hot flashes. Genitourinary: Negative for bladder incontinence, difficulty urinating, dyspareunia, dysuria, frequency and hematuria. Musculoskeletal: Positive for arthralgias and back pain. Negative for gait problem and myalgias. Skin: Negative for rash. Neurological: Negative for dizziness, extremity weakness, gait problem, headaches, numbness and seizures. Hematological: Negative for adenopathy. Does not bruise/bleed easily. Psychiatric/Behavioral: Negative for confusion, depression and sleep disturbance. The patient is not nervous/anxious. All other systems reviewed and are negative. Past Medical History: has a past medical history of Anxiety, Aortic valve insufficiency, Arrhythmia, Arthritis, Ascending aorta dilatation (CMS-HCC), Ascending aorta dilation (CMS-HCC), Breast cancer(Multi), Cerebral vascular accident (Multi), CHF (congestive heart failure), Congestive heart failure (12/01/2023), Coronary artery disease, Depression, Dizziness, GERD (gastroesophageal reflux disease), HOCM (hypertrophic obstructive cardiomyopathy) (Multi) (12/01/2023), transfusion of platelets, Hyperlipidemia, Hypertension, Illness, unspecified (05/13/2024), Irregular heart beat, Joint pain, Occlusion and stenosis of bilateral carotid arteries (12/01/2023), Old myocardial infarction, Other chest pain (12/01/2023), Presence of combination internal cardiac defibrillator (ICD) and pacemaker, Rhabdomyolysis (06/05/2024), Shortness of breath, Thrombocytopenia (CMS-HCC) (06/05/2024), TIA (transient ischemic attack), Urgency of urination (03/15/2024), and Vision loss. Surgical History: has a past surgical history that includes Other surgical history (07/20/2019); Other surgical history (07/24/2019); Tonsillectomy; Hysterectomy; Cardiac catheterization; Coronary stent placement; Breast biopsy; Coronary artery bypass graft (2004); Insert / replace / remove pacemaker (2010); Aortic valve replacement (2004); Cardiac valve replacement; and Abdominal aortic aneurysmrepair (2004). Social History: reports that she quit smoking about 20 years ago. Her smoking use included cigarettes. She has never been exposed to tobacco smoke. She has never used smokeless tobacco. She reports that she does not drink alcohol and does not use drugs. Family History: Family History Problem Relation Name Age of Onset Breast cancer Mother Cancer Mother colon and breast Heart disease Father Breast cancer Sister Cancer Sister breast Family Oncology History: Cancer-related family history includes Breast cancer in her mother and sister; Cancer in her mother and sister. OBJECTIVE VS / Pain: BP 138/67 (BP Location: Right arm, Patient Position: Sitting, BP Cuff Size: Adult) Pulse 64 Temp 36 C (96.8 F) (Temporal) Wt 56 kg (123 lb 5.6 oz) LMP (LMP Unknown) SpO2 95% BMI 24.00 kg/m BSA: 1.54 meters squared Pain Scale: 2 Performance Status: The ECOG performance scale today is ECO- Restricted in physically strenuous activity. Carries out light duty. Physical Exam Vitals reviewed. Cardiovascular: Rate and Rhythm: Normal rate. Heart sounds: No murmur (+loud aortic murmur) heard. Neurological: General: No focal deficit present. Mental Status: She is oriented to person, place, and time. Diagnostic Results [facility], [address] [place] [address], [address], [place], [place] [address] and TRANSTHORACIC ECHOCARDIOGRAM REPORT Patient Name: LIZBETH Lewis Physician: [id number] Vikram Schofield MD Study Date: 09/19/2024 Ordering Provider: [id number] RUEL LOZANO MRN/PID: [id number] Fellow: Nurse: Yany De Jesus RN Date of /Age: 401/26/1955 [employer] Pay Technician: Estefania De La Rosa RDCS years Gender assigned at F Additional Staff: : Height: 152.40 cm Admit Date: Weight: 61.69 kg Admission Status: Outpatient BSA / BMI: 1.58 m2 / 26.56 kg/m2 Blood Pressure: 134/67 mmHg Department Location: [facility] Study Type: TRANSTHORACIC ECHO (TTE) COMPLETE Diagnosis/ICD: Presence of prosthetic heart valve-Z95.2 Indication: AVR CPT Code: Echo Complete w Full Doppler-[id number] Patient History: Pertinent History: A-Fib, Hyperlipidemia and HTN. CABG X 2,,AVR #21mm Avalus ultra (08/01/24),Dilated ascending aorta,Adryan arch graft #28mm,Breast CA,Chemotherapy. Study Detail: The following Echo studies were performed: 2D, M-Mode, Doppler and color flow. Technically challenging study due to body habitus. Definity used as a contrast agent for endocardial border definition. Total contrast used for this procedure was 2 mL via IV push. Patient has a pacemaker. PHYSICIAN INTERPRETATION: Left Ventricle: The left ventricular systolic function is normal, with a visually estimated ejection fraction of 65-70%. There are no regional left ventricular wall motion abnormalities. The left ventricular cavity size is normal. There is moderately increased septal and mildly increased posterior left ventricular wall thickness. There is left ventricular concentric remodeling. Spectral Doppler shows a Grade I (impaired relaxation pattern) of left ventricular diastolic filling with normal left atrial filling pressure. Left Atrium: The left atrium is normal in size. Right Ventricle: The right ventricle is upper limits of normal in size. There is low normal right ventricular systolic function. A device is visualized in the right ventricle. Right Atrium: The right atrium is normal in size. There is a device visualized in the right atrium. Aortic Valve: There is a prosthetic aortic valve present. The aortic valve dimensionless index is 0.71. There is a Medtronic bioprosthetic type aortic valve bioprosthesis with a 21 mm reported size. Echo findings are consistent with normal aortic valve prosthesis structure and function. There is noevidence of aortic valve regurgitation. The peak instantaneous gradient of the aortic valve is 17 mmHg. The mean gradient of the aortic valve is 9 mmHg. Mitral Valve: The mitral valve is mildly thickened. There is mild to moderate mitral annular calcification. There is trace mitral valve regurgitation. Tricuspid Valve: The tricuspid valve is structurally normal. There is mild tricuspid regurgitation.The Doppler estimated RVSP is within normal limits at 27.2 mmHg. Pulmonic Valve: The pulmonic valve is structurally normal. There is mild pulmonic valve regurgitation. Pericardium: Trivial pericardial effusion. Aorta: The aortic root is normal. There is no dilatation of the aortic root. Systemic Veins: The inferior vena cava appears small in size. In comparison to the previous echocardiogram(s): Compared with study dated 08/07/2024, no significant change. CONCLUSIONS: 1. The left ventricular systolic function is normal, with a visually estimated ejection fraction of65-70%. 2. Spectral Doppler shows a Grade I (impaired relaxation pattern) of left ventricular diastolic filling with normal left atrial filling pressure. 3. There is moderately increased septal thickness. 4. Right ventricular systolic pressure is within normal limits. 5. There is a Medtronic bioprosthetic type aortic valve bioprosthesis with a 21 mm reported size. 6. Echo findings are consistent with normal aortic valve prosthesis structure and function. 7. There is low normal right ventricular systolic function. QUANTITATIVE DATA SUMMARY: 2D MEASUREMENTS: Normal Ranges: LAs: 4.67 cm (2.7-4.0cm) IVSd: 1.36 cm (0.6-1.1cm) LVPWd: 1.05 cm (0.6-1.1cm) LVIDd: 3.09 cm (3.9-5.9cm) LVIDs: 2.09 cm LV Mass Index: 72 g/m2 LVEDV Index: 56 ml/m2 LV % FS 32.3 % LA VOLUME: Normal Ranges: LA Vol A4C: 43.1 ml (22+/-6mL/m2) LA Vol A2C: 35.4 ml LA Vol BP: 43.0 ml LA Vol Index A4C: 27.2 ml/m2 LA Vol Index A2C: 22.4 ml/m2 LA Vol Index BP: 27.2 ml/m2 LA Area A4C: 17.0 cm2 LA Area A2C: 14.0 cm2 LA Major Hobson A4C: 5.7 cm LA Major Hobson A2C: 4.7 cm LA Volume Index: 27.0 ml/m2 LA Vol A4C: 41.2 ml LA Vol A2C: 34.7 ml LA Vol Index BSA: 24.0 ml/m2 RA VOLUME BY A/L METHOD: Normal Ranges: RA Vol A4C: 21.8 ml (8.3-19.5ml) RA Vol Index A4C: 13.8 ml/m2 RA Area A4C: 10.0 cm2 RA Major Hobson A4C: 3.9 cm M-MODE MEASUREMENTS: Normal Ranges: Ao Root: 2.60 cm (2.0-3.7cm) LAs: 4.70 cm (2.7-4.0cm) AORTA MEASUREMENTS: Normal Ranges: Asc Ao, d: 3.00 cm (2.1-3.4cm) LV SYSTOLIC FUNCTION BY 2D PLANIMETRY (MOD): Normal Ranges: EF-A4C View: 64 % (>=55%) EF-A2C View: 65 % EF-Biplane: 65 % EF-Visual: 68 % LV EF Reported: 68 % LV DIASTOLIC FUNCTION: Normal Ranges: MV Peak E: 1.01 m/s (0.7-1.2 m/s) MV Peak A: 1.24 m/s (0.42-0.7 m/s) E/A Ratio: 0.81 (1.0-2.2) MV e' 0.074 m/s (>8.0) MV lateral e' 0.10 m/s MV medial e' 0.05 m/s MV A Dur: 161.75 msec E/e' Ratio: 13.73 (<8.0) PulmV Sys Vaughn: 35.06 cm/s PulmV Rios Vaughn: 41.13 cm/s PulmV S/D Vaughn: 0.85 PulmV A Revs Vaughn: 25.89 cm/s PulmV A Revs Dur: 148.43 msec MITRAL VALVE: Normal Ranges: MV DT: 229 msec (150-240msec) AORTIC VALVE: Normal Ranges: AoV Vmax: 2.06 m/s (<=1.7m/s) AoV Peak P.1 mmHg (<20mmHg) AoV Mean P.7 mmHg (1.7-11.5mmHg) LVOT Max Vaughn: 1.34 m/s (<=1.1m/s) AoV VTI: 43.23 cm (18-25cm) LVOT VTI: 30.83 cm LVOT Diameter: 1.82 cm (1.8-2.4cm) AoV Area, VTI: 1.85 cm2 (2.5-5.5cm2) AoV Area,Vmax: 1.68 cm2 (2.5-4.5cm2) AoV Dimensionless Index: 0.71 RIGHT VENTRICLE: RV Basal 3.30 cm RV Mid 2.40 cm RV Major 5.6 cm TAPSE: 12.3 mm RV s' 0.08 m/s TRICUSPID VALVE/RVSP: Normal Ranges: Peak TR Velocity: 2.46 m/s RV Syst Pressure: 27 mmHg (< 30mmHg) IVC Diam: 1.10 cm PULMONIC VALVE: Normal Ranges: PV Accel Time: 89 msec (>120ms) PV Max Vaughn: 1.1 m/s (0.6-0.9m/s) PV Max P.6 mmHg Pulmonary Veins: PulmV A Revs Dur: 148.43 msec PulmV A Revs Vaughn: 25.89 cm/s PulmV Rios Vaughn: 41.13 cm/s PulmV S/D Vaughn: 0.85 PulmV Sys Vaughn: 35.06 cm/s I MAMMO RIGHT DIAGNOSTIC TOMOSYNTHESIS; BI US BREAST LIMITED RIGHT; 09/20/2024 1:50 pm; 09/20/2024 2:16 pm ACCESSION NUMBER(S): [id number]; [id number] ORDERING CLINICIAN: MARCELO DAVEY INDICATION: Multifocal right breast cancer with preoperative chemotherapy terminated May 2024. Mag seed placement within 3 right breast masses and right axillary lymph node performed 03/14/2024. Preoperative evaluation. ,C50.919 Malignant neoplasm of unspecified site of unspecified female breast,Z17.0 Estrogen receptor positive status (ER+),C50.511 Malignant neoplasm of lower-outer quadrant of right female breast,Z17.1 Estrogen receptor negative status (ER-) COMPARISON: Right mammograms 03/14/2024, 02/09/2024, 11/25/2023. Right breast ultrasound 02/09/2024 with Mag seed placement 03/14/2024 FINDINGS: MAMMOGRAPHY: 2D and tomosynthesis images were reviewed at 1 mm slice thickness. Density: There are scattered areas of fibroglandular density. A partially visualized mass with associated tissue marker and Mag seed is identified in the deep central right breast at the level of the pectoralis muscle, seen only on the MLO view. No suspicious masses or calcifications are identified. The 3 biopsy-proven sites of malignancy are posteriorly located and not included in the mammographic field of view. A MediPort overlies the right axilla. A single low-lying prominent axillary lymph node is visualized. Additional benign-appearing right axillary lymph nodes are visualized. ULTRASOUND: Targeted ultrasound was performed of the lower outer right breast and right axilla by a registered wireline supervisor with elastography. The biopsy-proven malignancy at the 8 o'clock position of the right breast 7 cm from the nipple measures 1.7 x 1.5 x 1.6 cm (previously 2.1 x 2.4 by 1.8 cm). There is an internal biopsy clip and Mag seed. The biopsy-proven malignancy at the 7 o'clock position of the right breast 7 cm from the nipple measures 0.7 x 0.6 x 0.5 cm (previously 0.8 x 0.7 x 0.6 cm). The associated Mag seed is not well seen. The biopsy-proven malignancy at the 6 o'clock position 4 cm from the nipple measures 1.2 x 0.8 x 0.9 cm (previously 1.5 x 0.9 x 1.3 cm). The associated tissue marker and Mag seed are visualized. Biopsied right axillary lymph node remains stable when accounting for differences in scanning, measuring 1.3 by 1.6 x 1.3 cm. The associated tissue marker and Mag seed are visualized. There is a hypoechoic tract extending to the skin surface consistent with post biopsy change. IMPRESSION: Multifocal breast cancer with either interval decrease in size or stability compared with pre biopsy imaging 02/09/2024. Mag seed placement has already been performed. BI-RADS CATEGORY: BI-RADS CATEGORY: 6 Known Biopsy-Proven Malignancy. Recommendation: Immediate Follow-up. Recommended Date: Immediate. Laterality: Right. For any future breast imaging appointments, please call [phone] ([phone]). LABORATORY/PATHOLOGY DATA Lab on 01/01/2025 Component Date Value Ref Range Status ABO TYPE 01/01/2025 B Final Rh TYPE 01/01/2025 POS Final ANTIBODY SCREEN 01/01/2025 NEG Final Glucose 01/01/2025 102 (H) 74 - 99 mg/dL Final Sodium 01/01/2025 136 136 - 145 mmol/L Final Potassium 01/01/2025 4.2 3.5 - 5.3 mmol/L Final Chloride 01/01/2025 95 (L) 98 - 107 mmol/L Final Bicarbonate 01/01/2025 30 21 - 32 mmol/L Final Anion Gap 01/01/2025 15 10 - 20 mmol/L Final Urea Nitrogen 01/01/2025 8 6 - 23 mg/dL Final Creatinine 01/01/2025 0.85 0.50 - 1.05 mg/dL Final eGFR 01/01/2025 74 >60 mL/min/1.73m*2 Final Calcium 01/01/2025 9.4 8.6 - 10.6 mg/dL Final Albumin 01/01/2025 4.7 3.4 - 5.0 g/dL Final Alkaline Phosphatase 01/01/2025 158 (H) 33 - 136 U/L Final Total Protein 01/01/2025 7.5 6.4 - 8.2 g/dL Final AST 01/01/2025 24 9 - 39 U/L Final Bilirubin, Total 01/01/2025 0.5 0.0 - 1.2 mg/dL Final ALT 01/01/2025 19 7 - 45 U/L Final WBC 01/01/2025 5.6 4.4 - 11.3 x10*3/uL Final nRBC 01/01/2025 Final RBC 01/01/2025 4.17 4.00 - 5.20 x10*6/uL Final Hemoglobin 01/01/2025 12.2 12.0 - 16.0 g/dL Final Hematocrit 01/01/2025 37.8 36.0 - 46.0 % Final MCV 01/01/2025 91 80 - 100 fL Final MCH 01/01/2025 29.3 26.0 - 34.0 pg Final MCHC 01/01/2025 32.3 32.0 - 36.0 g/dL Final RDW 01/01/2025 15.5 (H) 11.5 - 14.5 % Final Platelets 01/01/2025 206 150 - 450 x10*3/uL Final Neutrophils % 01/01/2025 65.5 40.0 - 80.0 % Final Immature Granulocytes %, Automated 01/01/2025 0.4 0.0 - 0.9 % Final Lymphocytes % 01/01/2025 22.4 13.0 - 44.0 % Final Monocytes % 01/01/2025 9.4 2.0 - 10.0 % Final Eosinophils % 01/01/2025 1.8 0.0 - 6.0 % Final Basophils % 01/01/2025 0.5 0.0 - 2.0 % Final Neutrophils Absolute 01/01/2025 3.69 1.20 - 7.70 x10*3/uL Final Immature Granulocytes Absolute, Au* 01/01/2025 0.02 0.00 - 0.70 x10*3/uL Final Lymphocytes Absolute 01/01/2025 1.26 1.20 - 4.80 x10*3/uL Final Monocytes Absolute 01/01/2025 0.53 0.10 - 1.00 x10*3/uL Final Eosinophils Absolute 01/01/2025 0.10 0.00 - 0.70 x10*3/uL Final Basophils Absolute 01/01/2025 0.03 0.00 - 0.10 x10*3/uL Final CA 27.29 01/01/2025 37.3 0.0 - 38.6 U/mL Final Lab on 12/18/2024 Component Date Value Ref Range Status WBC 12/18/2024 2.2 (L) 4.4 - 11.3 x10*3/uL Final nRBC 12/18/2024 Final RBC 12/18/2024 3.39 (L) 4.00 - 5.20 x10*6/uL Final Hemoglobin 12/18/2024 9.9 (L) 12.0 - 16.0 g/dL Final Hematocrit 12/18/2024 30.0 (L) 36.0 - 46.0 % Final MCV 12/18/2024 89 80 - 100 fL Final MCH 12/18/2024 29.2 26.0 - 34.0 pg Final MCHC 12/18/2024 33.0 32.0 - 36.0 g/dL Final RDW 12/18/2024 13.4 11.5 - 14.5 % Final Platelets 12/18/2024 95 (L) 150 - 450 x10*3/uL Final Neutrophils % 12/18/2024 19.5 40.0 - 80.0 % Final Immature Granulocytes %, Automated 12/18/2024 0.9 0.0 - 0.9 % Final Lymphocytes % 12/18/2024 46.5 13.0 - 44.0 % Final Monocytes % 12/18/2024 32.1 2.0 - 10.0 % Final Eosinophils % 12/18/2024 0.5 0.0 - 6.0 % Final Basophils % 12/18/2024 0.5 0.0 - 2.0 % Final Neutrophils Absolute 12/18/2024 0.42 (L) 1.20 - 7.70 x10*3/uL Final Immature Granulocytes Absolute, Au* 12/18/2024 0.02 0.00 - 0.70 x10*3/uL Final Lymphocytes Absolute 12/18/2024 1.00 (L) 1.20 - 4.80 x10*3/uL Final Monocytes Absolute 12/18/2024 0.69 0.10 - 1.00 x10*3/uL Final Eosinophils Absolute 12/18/2024 0.01 0.00 - 0.70 x10*3/uL Final Basophils Absolute 12/18/2024 0.01 0.00 - 0.10 x10*3/uL Final Lab on 12/05/2024 Component Date Value Ref Range Status WBC 12/05/2024 5.2 4.4 - 11.3 x10*3/uL Final nRBC 12/05/2024 Final RBC 12/05/2024 4.28 4.00 - 5.20 x10*6/uL Final Hemoglobin 12/05/2024 12.5 12.0 - 16.0 g/dL Final Hematocrit 12/05/2024 38.2 36.0 - 46.0 % Final MCV 12/05/2024 89 80 - 100 fL Final MCH 12/05/2024 29.2 26.0 - 34.0 pg Final MCHC 12/05/2024 32.7 32.0 - 36.0 g/dL Final RDW 12/05/2024 13.4 11.5 - 14.5 % Final Platelets 12/05/2024 91 (L) 150 - 450 x10*3/uL Final Neutrophils % 12/05/2024 74.9 40.0 - 80.0 % Final Immature Granulocytes %, Automated 12/05/2024 0.2 0.0 - 0.9 % Final Lymphocytes % 12/05/2024 22.1 13.0 - 44.0 % Final Monocytes % 12/05/2024 1.3 2.0 - 10.0 % Final Eosinophils % 12/05/2024 1.3 0.0 - 6.0 % Final Basophils % 12/05/2024 0.2 0.0 - 2.0 % Final Neutrophils Absolute 12/05/2024 3.92 1.20 - 7.70 x10*3/uL Final Immature Granulocytes Absolute, Au* 12/05/2024 0.01 0.00 - 0.70 x10*3/uL Final Lymphocytes Absolute 12/05/2024 1.16 (L) 1.20 - 4.80 x10*3/uL Final Monocytes Absolute 12/05/2024 0.07 (L) 0.10 - 1.00 x10*3/uL Final Eosinophils Absolute 12/05/2024 0.07 0.00 - 0.70 x10*3/uL Final Basophils Absolute 12/05/2024 0.01 0.00 - 0.10 x10*3/uL Final Infusion on 11/30/2024 Component Date Value Ref Range Status Glucose 11/30/2024 66 (L) 74 - 99 mg/dL Final Sodium 11/30/2024 141 136 - 145 mmol/L Final Potassium 11/30/2024 3.9 3.5 - 5.3 mmol/L Final Chloride 11/30/2024 101 98 - 107 mmol/L Final Bicarbonate 11/30/2024 30 21 - 32 mmol/L Final Anion Gap 11/30/2024 14 10 - 20 mmol/L Final Urea Nitrogen 11/30/2024 15 6 - 23 mg/dL Final Creatinine 11/30/2024 0.89 0.50 - 1.05 mg/dL Final eGFR 11/30/2024 70 >60 mL/min/1.73m*2 Final Calcium 11/30/2024 8.8 8.6 - 10.6 mg/dL Final Albumin 11/30/2024 4.5 3.4 - 5.0 g/dL Final Alkaline Phosphatase 11/30/2024 96 33 - 136 U/L Final Total Protein 11/30/2024 6.9 6.4 - 8.2 g/dL Final AST 11/30/2024 16 9 - 39 U/L Final Bilirubin, Total 11/30/2024 0.4 0.0 - 1.2 mg/dL Final ALT 11/30/2024 10 7 - 45 U/L Final Lab on 11/29/2024 Component Date Value Ref Range Status WBC 11/29/2024 4.3 (L) 4.4 - 11.3 x10*3/uL Final nRBC 11/29/2024 0.0 0.0 - 0.0 /100 WBCs Final RBC 11/29/2024 4.34 4.00 - 5.20 x10*6/uL Final Hemoglobin 11/29/2024 12.6 12.0 - 16.0 g/dL Final Hematocrit 11/29/2024 38.8 36.0 - 46.0 % Final MCV 11/29/2024 89 80 - 100 fL Final MCH 11/29/2024 29.0 26.0 - 34.0 pg Final MCHC 11/29/2024 32.5 32.0 - 36.0 g/dL Final RDW 11/29/2024 13.6 11.5 - 14.5 % Final Platelets 11/29/2024 135 (L) 150 - 450 x10*3/uL Final Neutrophils % 11/29/2024 63.4 40.0 - 80.0 % Final Immature Granulocytes %, Automated 11/29/2024 0.2 0.0 - 0.9 % Final Lymphocytes % 11/29/2024 27.0 13.0 - 44.0 % Final Monocytes % 11/29/2024 6.1 2.0 - 10.0 % Final Eosinophils % 11/29/2024 2.6 0.0 - 6.0 % Final Basophils % 11/29/2024 0.7 0.0 - 2.0 % Final Neutrophils Absolute 11/29/2024 2.72 1.20 - 7.70 x10*3/uL Final Immature Granulocytes Absolute, Au* 11/29/2024 0.01 0.00 - 0.70 x10*3/uL Final Lymphocytes Absolute 11/29/2024 1.16 (L) 1.20 - 4.80 x10*3/uL Final Monocytes Absolute 11/29/2024 0.26 0.10 - 1.00 x10*3/uL Final Eosinophils Absolute 11/29/2024 0.11 0.00 - 0.70 x10*3/uL Final Basophils Absolute 11/29/2024 0.03 0.00 - 0.10 x10*3/uL Final Outside pathology report reviewed. IMPRESSION/PLAN [id number] HER2+/ER-/WV- right sided breast cancer. Post aortic valve repair surgery she is a candidate for her2 therapy. I have discussed with Dr Bae who has recommended that it is safe to proceed but she would require Q3 month echos. Given the severe thrombocytopenia/neutropenia with day 1 and 8gemcitabine will eliminate day 8 and give dose reduced gemcitabine only on day 1 with trastuzumab/pertuzumab. RTC in 6 wks with neli cox. Plan on repeating CT scans in 9-12 wks from now. [facility] schedule repeat echocardiogram I personally spent over half of a total 35 minutes face to face with the patient and family in counseling and discussion and/or coordination of care as described above. Marcelo Davey MD Director of Breast Cancer Medical Oncology Research Program [facility] environmental communications specialist [facility] [address], [address] [place] [address] [email or web address] documented in this [facility] Work Phone: 1(418) 856-632603-19-2025 Instructions* Patient Instructions* Pearl Mason RN - 01/03/2025 9:20 AM EDT Please call us at [phone] option 5 then option 2 with any questions or concerns. You may also contact your nurse or doctor with non-urgent issues by sending a MyChart message. Reminders Medicine refills: call or send a MyChart message to request medicine refills at least 5 to 7 days before you run out. Labs: You will need labs drawn with a nurse, through your mediport. See My Chart for appointment details. 1-2 days prior to treatment at [place] [facility] doing Day 1 of treatments of the chemotherapy. We to schedule C3 for 01-09-2025 and C4 for 01-30-2025 with PORT labs 1-3 days prior documented in this [facility] Work Phone: [phone]) 311-186603-07-2025 Evaluation note* Diagnosis Onset Date Resolution Status Admit Date Pancytopenia acute December 22 10:37am Nausea and vomiting resolved December 22, 2024 10:37am Vasculitis acute February 06 12:52pm Dizziness acute April 05 2:20pm Fatigue acute April 05 2:20pm [facility] Work Phone: 1(164) 348-857202-28-2025 [facility] Medical Records Department [address] [place] [address] Discharge Summary 12/15/24 1403 MR#: [id number] Acct: [id number] Name: LIZBETH NIXON Rep #: [id number] : 1955 69 From: Guillaume Spring DO PCP: Dr. Daniela Fallon MD Status:DIS IN Location: [facility] [id number] Providers Date of Admission: 12/10/24 Date of Discharge: 12/15/24 Primary Care Physician: Dr. Daniela Fallon MD Consultations 12/10/24 16:40 Consult: Infectious Disease Routine Consulting Provider: Siva Subramanian Reason for Consult: low grade fever, 100.3F, 1 TIME, ANC and plt low, had 2 doses of zosyn, D/C EMERGENT Consult: No MD Notified: Yes Date Notified: 12/10/24 Time Notified: 16:40 Method of Notification: Text Reason For Visit: N/V/D Diagnosis Discharge Diagnosis (1) Neutropenic fever: Status: Acute Code(s): D70.9 - Neutropenia, unspecified; R50.81 - Fever presenting with conditions classified elsewhere Plan 1. 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 Patient will need a walking pulse oximeter tomorrow #5 hypokalemia-corrected at this time #6 nausea, vomiting, and diarrhea secondary to chemotherapy Total clinical time spent by myself addressing the patient's medical issues, reviewing all of her data, and collaborating with patient's care team: 35 minutes Medications at Discharge Home Medications aspirin 81 mg chewable tablet 81 mg PO DAILY 11/23/17 melatonin 10 mg capsule 10 mg PO HS PRN sleep 11/23/17 calcium carbonate 600 mg PO BID 06/30/18 amlodipine 10 mg tablet 10 mg PO QDAY #90 tabs 05/11/24 nitroglycerin 0.4 mg sublingual tablet See Rx Instructions .Route .COMPLEX #75 tabs 05/11/24 rosuvastatin 20 mg tablet 20 mg PO DAILY #90 tabs 05/11/24 sertraline 100 mg tablet 100 mg PO QDAY #90 tabs 05/11/24 trazodone 100 mg tablet 100 mg PO QHS PRN insomnia #90 tabs 05/11/24 handicap placard #1 ea 09/01/24 cholecalciferol (vitamin D3) 50 mcg (2,000 unit) capsule (Vitamin D3) 50 mcg PO DAILY 12/08/24 lisinopril 5 mg tablet 5 mg PO DAILY 12/08/24 pantoprazole 40 mg tablet,delayed release 40 mg PO BID 12/08/24 sotalol 80 mg tablet (Betapace) 80 mg PO DAILY 12/08/24 cefdinir 300 mg capsule 300 mg PO Q12 #7 caps 12/15/24 Hospital Course Operations None Procedures None Summary of Care Provided Minutes Spent on Discharge: 31 Hospital Course: This 69-year-old white female was seen in the emergency room at [facility] with complaints of nausea and vomiting and diarrhea. Patient was undergoing chemotherapy for breast cancer. Workup in the emergency room included a CBC which showed a normal white blood cell count, hemoglobin was 9, platelet count was 27,000, sodium was low at 129, potassium was low at 3.4, creatinine was elevated at 1.19 and BUN was elevated at 21. Patient's urinalysis was unremarkable. Patient was admitted to PCU for persistent nausea vomiting and diarrhea, she was treated with IV fluids and labs were monitored. Within 48 hours, patient became pancytopenic and ran a temperature necessitating placing the patient on IV antibiotics. She was also seen in consultation by infectious diseases. Patient underwent platelet transfusions while hospitalized due to low platelet count, I had several discussions with the patient's oncologist who recommended not giving the patient Granix. Patient's symptoms resolved. On 12/15/2024, patient was seen and examined: On examination she appeared in good health and spirits, she does not appear to be in any distress. Vital signs as documented. Skin warm and dry and without overt rashes. Neck without JVD, thyroid appears normal, trachea is midline, neck is supple. Lungs clear, normal air movement was noted. Heart exam notable for regular rhythm, normal sounds and absence of murmurs, rubs or gallops. Abdomen unremarkable and without evidence of organomegaly, masses, or abdominal aortic enlargement, bowel sounds are present in all 4 quadrants, no abdominal tenderness was noted. Extremities nonedematous, no cyanosis was noted, no clubbing was noted. Neuro: Cranial nerves II through XII are grossly intact, no focal motor deficits were noted, sensation to light touch and pinprick is intact, motor exam 5/5 throughout. Psych: Patient is alert and oriented x3, she does not appear anxious or depressed, she does not appear agitated. Patient appeared stable for discharge home on 12/15/2024. Weight / BMI Weight Weight: 61.3 kg Body Mass Index (BMI) 26.4 ABG (more content not included)...[facility]02-23-2025 Evaluation note* Diagnosis Onset Date Resolution Status Admit Date Breast cancer metastasized t o axillary lymph node inactive November 12:12pm Gastroenteritis inactive December 10, 2024 12:12pm Neutropenic fever inactive 2024 12:12pm Pancytopenia acute December 22 10:37am Nausea and vomiting resolved December 22, 2024 10:37am [facility] Work Phone: 1(851) 140-897502-23-2025 Evaluation note* Diagnosis Onset Date Resolution Status Admit Date Breast cancer metastasized t o axillary lymph node inactive November 12:12pm Gastroenteritis inactive December 10, 2024 12:12pm Neutropenic fever inactive 2024 12:12pm Pancytopenia acute December 22 10:37am Nausea and vomiting resolved December 22, 2024 10:37am Vasculitis acute February 06 12:52pm [facility] Work Phone: 1(305) 690-652101-22-2025 History of Present illness Narrative* Marcelo Davey MD - 11/08/2024 9:20 AM EST Images from the original note were not included. Breast [facility] Oncology Clinic Location: Virtual BREAST CANCER DIAGNOSIS Malignant neoplasm of lower-outer quadrant of right breast of female, estrogen receptor negative, Clinical: Stage IIB (cT2(m), cN1(f), cM0, G3, ER-, WV-, HER2+) Malignant neoplasm of lower-outer quadrant of right breast of female, estrogen receptor negative, Pathologic: Stage IV (cM1, ER-, WV-, HER2+) S/p 3 cycles of dose reduced gemcitabine/carboplatin days 1 and 8 q21 days CURRENT THERAPY Trastuzumab q3 wks HISTORY OF PRESENT ILLNESS Lizbeth Nixon is a 69 y.o. woman with incidentally found breast cancer after chest CT for heart surgery work up (she has aortic valve disease) found breast mass and axillary adenopathy in the right breast. Biopsy of both revealed HER2+, ER/WV- breast cancer. Other outside staging workup raised the possibility of oligo bone metastases however the data was unconvincing. Outside PET/CT vaguely showed two areas in the upper spine but MRI suggests that this could be degenerative disease. Bone scan was definitely negative for bone mets. Cardio- oncology advised against Her2 mAB therapy as she has little cardiac reserve and will need to have aortic valve repair first. She has been on gem/carbo with clinical response in breast. She had cardiac surgery on 08/02/24. Doing amazingly well post-surgery and is abck to her functional baseline. Feels as if mass in breast is a bit bigger. We recently repeated PET/CT scan which definitively shows active disease not only in the breast but in the spine. So she has stage IV HER2+ breast cancer. Tolerating trastuzumab well. Back pain is same as always. No worsening. Review of Systems Constitutional: Positive for fatigue. Negative for appetite change, chills and diaphoresis. HENT: Negative. Negative for hearing loss and lump/mass. Eyes: Negative. Negative for eye problems and icterus. Respiratory: Negative. Negative for chest tightness, cough, hemoptysis, shortness of breath and wheezing. Cardiovascular: Negative. Negative for chest pain, leg swelling and palpitations. Gastrointestinal: Negative for abdominal distention, abdominal pain, blood in stool, constipation, diarrhea and nausea. Endocrine: Negative for hot flashes. Genitourinary: Negative for bladder incontinence, difficulty urinating, dyspareunia, dysuria, frequency and hematuria. Musculoskeletal: Positive for arthralgias and back pain. Negative for gait problem and myalgias. Skin: Negative for rash. Neurological: Negative for dizziness, extremity weakness, gait problem, headaches, numbness and seizures. Hematological: Negative for adenopathy. Does not bruise/bleed easily. Psychiatric/Behavioral: Negative for confusion, depression and sleep disturbance. The patient is not nervous/anxious. All other systems reviewed and are negative. Past Medical History: has a past medical history of Anxiety, Aortic valve insufficiency, Arrhythmia, Arthritis, Ascending aorta dilatation (CMS-HCC), Ascending aorta dilation (CMS-HCC), Breast cancer(Multi), Cerebral vascular accident (Multi), CHF (congestive heart failure), Congestive heart failure (12/01/2023), Coronary artery disease, Depression, Dizziness, GERD (gastroesophageal reflux disease), HOCM (hypertrophic obstructive cardiomyopathy) (Multi) (12/01/2023), transfusion of platelets, Hyperlipidemia, Hypertension, Irregular heart beat, Joint pain, Occlusion and stenosis of bilateral carotid arteries (12/01/2023), Old myocardial infarction, Other chest pain (12/01/2023), Presence ofcombination internal cardiac defibrillator (ICD) and pacemaker, Shortness of breath, TIA (transientischemic attack), and Vision loss. Surgical History: has a past surgical history that includes Other surgical history (07/20/2019); Other surgical history (07/24/2019); Tonsillectomy; Hysterectomy; Cardiac catheterization; Coronary stent placement; Breast biopsy; Coronary artery bypass graft (2004); Insert / replace / remove pacemaker (2010); Aortic valve replacement (2004); Cardiac valve replacement; and Abdominal aortic aneurysmrepair (2004). Social History: reports that she quit smoking about 20 years ago. Her smoking use included cigarettes. She has never been exposed to tobacco smoke. She has never used smokeless tobacco. She reports that she does not drink alcohol and does not use drugs. Family History: Family History Problem Relation Name Age of Onset Breast cancer Mother Cancer Mother colon and breast Heart disease Father Breast cancer Sister Cancer Sister breast Family Oncology History: Cancer-related family history includes Breast cancer in her mother and sister; Cancer in her mother and sister. OBJECTIVE VS / Pain: LMP (LMP Unknown) BSA: There is no height or weight on file to calculate BSA. Pain Scale: 2 Performance Status: The ECOG performance scale today is ECO- Restricted in physically strenuous activity. Carries out light duty. Physical Exam Vitals reviewed. Cardiovascular: Rate and Rhythm: Normal rate. Heart sounds: No murmur (+loud aortic murmur) heard. Neurological: General: No focal deficit present. Mental Status: She is alert and oriented to person, place, and time. Cranial Nerves: No cranial nerve deficit. Diagnostic Results [facility], [address] [place] [address], [address], [place], [place] [address] and TRANSTHORACIC ECHOCARDIOGRAM REPORT Patient Name: LIZBETH NIXON Reading Physician: [id number] Virkam Schofield MD Study Date: 09/19/2024 Ordering Provider: [id number] RUEL LOZANO MRN/PID: [id number] Fellow: Nurse: Yany De Jesus RN Date of /Age: 401/26/1955 [employer] Pay Technician: Estefania De La Rosa RDCS years Gender assigned at F Additional Staff: : Height: 152.40 cm Admit Date: Weight: 61.69 kg Admission Status: Outpatient BSA / BMI: 1.58 m2 / 26.56 kg/m2 Blood Pressure: 134/67 mmHg Department Location: [facility] Study Type: TRANSTHORACIC ECHO (TTE) COMPLETE Diagnosis/ICD: Presence of prosthetic heart valve-Z95.2 Indication: AVR CPT Code: Echo Complete w Full Doppler-[id number] Patient History: Pertinent History: A-Fib, Hyperlipidemia and HTN. CABG X 2,,AVR #21mm Avalus ultra (08/01/24),Dilated ascending aorta,Adryan arch graft #28mm,Breast CA,Chemotherapy. Study Detail: The following Echo studies were performed: 2D, M-Mode, Doppler and color flow. Technically challenging study due to body habitus. Definity used as a contrast agent for endocardial border definition. Total contrast used for this procedure was 2 mL via IV push. Patient has a pacemaker. PHYSICIAN INTERPRETATION: Left Ventricle: The left ventricular systolic function is normal, with a visually estimated ejection fraction of 65-70%. There are no regional left ventricular wall motion abnormalities. The left ventricular cavity size is normal. There is moderately increased septal and mildly increased posterior left ventricular wall thickness. There is left ventricular concentric remodeling. Spectral Doppler shows a Grade I (impaired relaxation pattern) of left ventricular diastolic filling with normal left atrial filling pressure. Left Atrium: The left atrium is normal in size. Right Ventricle: The right ventricle is upper limits of normal in size. There is low normal right ventricular systolic function. A device is visualized in the right ventricle. Right Atrium: The right atrium is normal in size. There is a device visualized in the right atrium. Aortic Valve: There is a prosthetic aortic valve present. The aortic valve dimensionless index is 0.71. There is a Medtronic bioprosthetic type aortic valve bioprosthesis with a 21 mm reported size. Echo findings are consistent with normal aortic valve prosthesis structure and function. There is noevidence of aortic valve regurgitation. The peak instantaneous gradient of the aortic valve is 17 mmHg. The mean gradient of the aortic valve is 9 mmHg. Mitral Valve: The mitral valve is mildly thickened. There is mild to moderate mitral annular calcification. There is trace mitral valve regurgitation. Tricuspid Valve: The tricuspid valve is structurally normal. There is mild tricuspid regurgitation.The Doppler estimated RVSP is within normal limits at 27.2 mmHg. Pulmonic Valve: The pulmonic valve is structurally normal. There is mild pulmonic valve regurgitation. Pericardium: Trivial pericardial effusion. Aorta: The aortic root is normal. There is no dilatation of the aortic root. Systemic Veins: The inferior vena cava appears small in size. In comparison to the previous echocardiogram(s): Compared with study dated 08/07/2024, no significant change. CONCLUSIONS: 1. The left ventricular systolic function is normal, with a visually estimated ejection fraction of65-70%. 2. Spectral Doppler shows a Grade I (impaired relaxation pattern) of left ventricular diastolic filling with normal left atrial filling pressure. 3. There is moderately increased septal thickness. 4. Right ventricular systolic pressure is within normal limits. 5. There is a Medtronic bioprosthetic type aortic valve bioprosthesis with a 21 mm reported size. 6. Echo findings are consistent with normal aortic valve prosthesis structure and function. 7. There is low normal right ventricular systolic function. QUANTITATIVE DATA SUMMARY: 2D MEASUREMENTS: Normal Ranges: LAs: 4.67 cm (2.7-4.0cm) IVSd: 1.36 cm (0.6-1.1cm) LVPWd: 1.05 cm (0.6-1.1cm) LVIDd: 3.09 cm (3.9-5.9cm) LVIDs: 2.09 cm LV Mass Index: 72 g/m2 LVEDV Index: 56 ml/m2 LV % FS 32.3 % LA VOLUME: Normal Ranges: LA Vol A4C: 43.1 ml (22+/-6mL/m2) LA Vol A2C: 35.4 ml LA Vol BP: 43.0 ml LA Vol Index A4C: 27.2 ml/m2 LA Vol Index A2C: 22.4 ml/m2 LA Vol Index BP: 27.2 ml/m2 LA Area A4C: 17.0 cm2 LA Area A2C: 14.0 cm2 LA Major Hobson A4C: 5.7 cm LA Major Hobson A2C: 4.7 cm LA Volume Index: 27.0 ml/m2 LA Vol A4C: 41.2 ml LA Vol A2C: 34.7 ml LA Vol Index BSA: 24.0 ml/m2 RA VOLUME BY A/L METHOD: Normal Ranges: RA Vol A4C: 21.8 ml (8.3-19.5ml) RA Vol Index A4C: 13.8 ml/m2 RA Area A4C: 10.0 cm2 RA Major Hobson A4C: 3.9 cm M-MODE MEASUREMENTS: Normal Ranges: Ao Root: 2.60 cm (2.0-3.7cm) LAs: 4.70 cm (2.7-4.0cm) AORTA MEASUREMENTS: Normal Ranges: Asc Ao, d: 3.00 cm (2.1-3.4cm) LV SYSTOLIC FUNCTION BY 2D PLANIMETRY (MOD): Normal Ranges: EF-A4C View: 64 % (>=55%) EF-A2C View: 65 % EF-Biplane: 65 % EF-Visual: 68 % LV EF Reported: 68 % LV DIASTOLIC FUNCTION: Normal Ranges: MV Peak E: 1.01 m/s (0.7-1.2 m/s) MV Peak A: 1.24 m/s (0.42-0.7 m/s) E/A Ratio: 0.81 (1.0-2.2) MV e' 0.074 m/s (>8.0) MV lateral e' 0.10 m/s MV medial e' 0.05 m/s MV A Dur: 161.75 msec E/e' Ratio: 13.73 (<8.0) PulmV Sys Vaughn: 35.06 cm/s PulmV Rios Vaughn: 41.13 cm/s PulmV S/D Vaughn: 0.85 PulmV A Revs Vaughn: 25.89 cm/s PulmV A Revs Dur: 148.43 msec MITRAL VALVE: Normal Ranges: MV DT: 229 msec (150-240msec) AORTIC VALVE: Normal Ranges: AoV Vmax: 2.06 m/s (<=1.7m/s) AoV Peak P.1 mmHg (<20mmHg) AoV Mean P.7 mmHg (1.7-11.5mmHg) LVOT Max Vaughn: 1.34 m/s (<=1.1m/s) AoV VTI: 43.23 cm (18-25cm) LVOT VTI: 30.83 cm LVOT Diameter: 1.82 cm (1.8-2.4cm) AoV Area, VTI: 1.85 cm2 (2.5-5.5cm2) AoV Area,Vmax: 1.68 cm2 (2.5-4.5cm2) AoV Dimensionless Index: 0.71 RIGHT VENTRICLE: RV Basal 3.30 cm RV Mid 2.40 cm RV Major 5.6 cm TAPSE: 12.3 mm RV s' 0.08 m/s TRICUSPID VALVE/RVSP: Normal Ranges: Peak TR Velocity: 2.46 m/s RV Syst Pressure: 27 mmHg (< 30mmHg) IVC Diam: 1.10 cm PULMONIC VALVE: Normal Ranges: PV Accel Time: 89 msec (>120ms) PV Max Vaughn: 1.1 m/s (0.6-0.9m/s) PV Max P.6 mmHg Pulmonary Veins: PulmV A Revs Dur: 148.43 msec PulmV A Revs Vaughn: 25.89 cm/s PulmV Rios Vaughn: 41.13 cm/s PulmV S/D Vaughn: 0.85 PulmV Sys Vaughn: 35.06 cm/s I MAMMO RIGHT DIAGNOSTIC TOMOSYNTHESIS; BI US BREAST LIMITED RIGHT; 09/20/2024 1:50 pm; 09/20/2024 2:16 pm ACCESSION NUMBER(S): [id number]; [id number] ORDERING CLINICIAN: MARCELO DAVEY INDICATION: Multifocal right breast cancer with preoperative chemotherapy terminated May 2024. Mag seed placement within 3 right breast masses and right axillary lymph node performed 03/14/2024. Preoperative evaluation. ,C50.919 Malignant neoplasm of unspecified site of unspecified female breast,Z17.0 Estrogen receptor positive status (ER+),C50.511 Malignant neoplasm of lower-outer quadrant of right female breast,Z17.1 Estrogen receptor negative status (ER-) COMPARISON: Right mammograms 03/14/2024, 02/09/2024, 11/25/2023. Right breast ultrasound 02/09/2024 with Mag seed placement 03/14/2024 FINDINGS: MAMMOGRAPHY: 2D and tomosynthesis images were reviewed at 1 mm slice thickness. Density: There are scattered areas of fibroglandular density. A partially visualized mass with associated tissue marker and Mag seed is identified in the deep central right breast at the level of the pectoralis muscle, seen only on the MLO view. No suspicious masses or calcifications are identified. The 3 biopsy-proven sites of malignancy are posteriorly located and not included in the mammographic field of view. A MediPort overlies the right axilla. A single low-lying prominent axillary lymph node is visualized. Additional benign-appearing right axillary lymph nodes are visualized. ULTRASOUND: Targeted ultrasound was performed of the lower outer right breast and right axilla by a registered wireline supervisor with elastography. The biopsy-proven malignancy at the 8 o'clock position of the right breast 7 cm from the nipple measures 1.7 x 1.5 x 1.6 cm (previously 2.1 x 2.4 by 1.8 cm). There is an internal biopsy clip and Mag seed. The biopsy-proven malignancy at the 7 o'clock position of the right breast 7 cm from the nipple measures 0.7 x 0.6 x 0.5 cm (previously 0.8 x 0.7 x 0.6 cm). The associated Mag seed is not well seen. The biopsy-proven malignancy at the 6 o'clock position 4 cm from the nipple measures 1.2 x 0.8 x 0.9 cm (previously 1.5 x 0.9 x 1.3 cm). The associated tissue marker and Mag seed are visualized. Biopsied right axillary lymph node remains stable when accounting for differences in scanning, measuring 1.3 by 1.6 x 1.3 cm. The associated tissue marker and Mag seed are visualized. There is a hypoechoic tract extending to the skin surface consistent with post biopsy change. IMPRESSION: Multifocal breast cancer with either interval decrease in size or stability compared with pre biopsy imaging 02/09/2024. Mag seed placement has already been performed. BI-RADS CATEGORY: BI-RADS CATEGORY: 6 Known Biopsy-Proven Malignancy. Recommendation: Immediate Follow-up. Recommended Date: Immediate. Laterality: Right. For any future breast imaging appointments, please call [phone]). === 10/12/24 === NM PET CT SKULL BASE TO MID THIGH - Impression - 1. Multiple mildly hypermetabolic soft tissue masses within the right breast, compatible with patient's known breast cancer. 2. Numerous mildly hypermetabolic right axillary and subpectoral lymph nodes, compatible with known nesha metastases. 3. Numerous hypermetabolic activity throughout the axial skeleton as detailed above, consistent with osseous metastatic disease. 4. No FDG avid lymphadenopathy within the abdomen or pelvis. I personally reviewed the images/study and I agree with the findings as stated by Dr. Devonte Major M.D. This study was interpreted at [place], [place]. MACRO: None. Signed by: Luis Manuel Parrish 10/26/2024 2:52 PM Dictation workstation: [id number] LABORATORY/PATHOLOGY DATA Infusion on 10/09/2024 Component Date Value Ref Range Status Glucose 10/09/2024 85 74 - 99 mg/dL Final Sodium 10/09/2024 141 136 - 145 mmol/L Final Potassium 10/09/2024 3.7 3.5 - 5.3 mmol/L Final Chloride 10/09/2024 103 98 - 107 mmol/L Final Bicarbonate 10/09/2024 30 21 - 32 mmol/L Final Anion Gap 10/09/2024 12 10 - 20 mmol/L Final Urea Nitrogen 10/09/2024 11 6 - 23 mg/dL Final Creatinine 10/09/2024 0.83 0.50 - 1.05 mg/dL Final eGFR 10/09/2024 76 >60 mL/min/1.73m*2 Final Calcium 10/09/2024 8.9 8.6 - 10.6 mg/dL Final Hepatitis B Surface AG 10/09/2024 Nonreactive Nonreactive Final Hepatitis B Core AB- Total 10/09/2024 Nonreactive Nonreactive Final Hepatitis B Surface AB 10/09/2024 59.8 (H) <10.0 mIU/mL Final Outside pathology report reviewed. IMPRESSION/PLAN [id number] HER2+/ER-/WV- right sided breast cancer. Post aortic valve repair surgery she is a candidate for trastuzumab. I have discussed with Dr Bae who has recommended that it is safe to proceed but she would require Q3 month echos. Breast cancer appears stable based on breast imaging from today. We discussed the clinical significance of diagnosis, goals of care and treatment plan in detail. Given she has definitive metastatic disease in spine, surgery is not an option. Will add pertuzumab and gemcitabine to trastuzumab as 1st line metastatic therapy. Will repeat PET/CT after 3 cycles. I personally spent over half of a total 35 minutes virtually with the patient in counseling and discussion and/or coordination of care as described above. Marcelo Davey MD Director of Breast Cancer Medical Oncology Research Program [facility] environmental communications specialist [facility] [address], [address] [place] [address] [email or web address] documented in this [facility] Work Phone: 1(266) 439-904612-11-2024 History of Present illness Narrative* Cindy Bae MD - 09/27/2024 11:45 AM EST Images from the original note were not included. Subjective Lizbethbraxton Nixon is a 69 y.o. female Cancer Diagnosis: Breast Treatment: Plan for Cumulative Dose: Radiation: Risk Factors: Aortic valve insufficiency, arrythmia, CVA, CHF, HOCM, HTN, HLD, DE, CADs/p CABG/Stent, Pacer TIA Social Hx: Former Smoker Family Hx: Father heart disease Echo 02/11/2024 EF 45-50% Briefly patient is a 69-year-old female with a medical history of dual-chamber [employer] ICD (implanted 2010), generator replacement June 2023. Coronary artery disease status post CABG, aortic valve replacement and aortic aneurysm repair. There is an echocardiogram from outside hospital dated May 27, 2023 showing preserved left ventricular ejection fraction 55-60%, with severe LVH. There is concern for bioprosthetic aortic valve stenosis with mean systolic gradient 22 mmHg, dimensionless index 0.28 and calculated effective orifice area 0.8 cm . CTA showed dilated aorta at 4.9 cm. Cardiac catheterization (unclear date) noted in her outside court bailiff chart with documented all grafts down except FULLER- LAD, in-stent restenosisof RCA and markedly enlarged aorta. From the standpoint of her cancer-she has right-sided breast cancer with possible use of HER2/harman inhibitors. Cardiac history is as follows: -Ischemic heart disease: Status post CABG in 2004. One-vessel CABG performed with aortic valve replacement (bioprosthetic)/aortic aneurysm repair. Likely underlying bicuspid aortic valve -Aortic aneurysm/aortic valve replacement as detailed above. Most recent CTA October 2023 notes dimensions of 4.9 cm. Most recent echocardiogram as scanned in above -Status post ICD as primary prevention. Was shocked post ICD placement and has been on sotalol since. Underwent replacement of ascending aorta, redo aortic valve replacement, CABG x 2 with vein graft-PDA, vein [id number] SVG with Dr. Lozano August 03, 2024. Now that her cardiac disease has been treated the intent is to pursue HER2/harman targeted therapy with trastuzumab. Most recent echocardiogram September 19, 2024 shows preserved biventricular function and stable hemodynamics of the aortic valve. Evaluated at the emergency room for cough/shortness of breath. Diagnosed with pneumonia and discharged on Augmentin. Since then symptoms are somewhat better but she still has a dry cough at night Review of Systems A comprehensive review of systems was negative. Past Medical History: Diagnosis Date Anxiety Aortic valve insufficiency perivalvular aortic valve insufficiency- scheduled for surgery with Dr. Lozano. Arrhythmia Ventricular tachycardia Arthritis Ascending aorta dilatation (CMS-HCC) 05/2024-Dilated ascending aorta measuring up to 4.8 cm within the mid ascending aorta Ascending aorta dilation (CMS-HCC) s/p repair abdominal aortic aneurysm Breast cancer (Multi) Right Breast-S/p 3 cycles of gem/carbo with clinical response in breast Cerebral vascular accident (Multi) CVA x2-no deficits CHF (congestive heart failure) Congestive heart failure 12/01/2023 diastolic LVEF 70% BY 02/2012 STRESS NYHA CLASS II Coronary artery disease s/p CABG x3 Depression Dizziness GERD (gastroesophageal reflux disease) controlled with protonix HOCM (hypertrophic obstructive cardiomyopathy) (Multi) 12/01/2023 Hx of transfusion of platelets Transfused 05/2024 Hyperlipidemia Hypertension Irregular heart beat A-Fib s/p AICD Joint pain Occlusion and stenosis of bilateral carotid arteries 12/01/2023 Old myocardial infarction Other chest pain 12/01/2023 Presence of combination internal cardiac defibrillator (ICD) and pacemaker 03/2024 Last device check--generator replacement 06/2023 Shortness of breath ROBERT TIA (transient ischemic attack) Vision loss CVA in left eye, wears glasses Past Surgical History: Procedure Laterality Date ABDOMINAL AORTIC ANEURYSM REPAIR 2004 AORTIC VALVE REPLACEMENT 2004 BREAST BIOPSY CARDIAC CATHETERIZATION CARDIAC VALVE REPLACEMENT CORONARY ARTERY BYPASS GRAFT 2004 CORONARY STENT PLACEMENT x4 HYSTERECTOMY INSERT / REPLACE / REMOVE PACEMAKER 2010 OTHER SURGICAL HISTORY 07/20/2019 Cardioverter defibrillator insertion OTHER SURGICAL HISTORY 07/24/2019 Arterial stent placement TONSILLECTOMY Allergies Allergen Reactions Grass Pollen Other House Dust Mite Other Family History Problem Relation Name Age of Onset Breast cancer Mother Cancer Mother colon and breast Heart disease Father Breast cancer Sister Cancer Sister breast Objective Visit Vitals BP 121/74 (BP Location: Right arm, Patient Position: Sitting, BP Cuff Size: Adult) Pulse 59 Temp 35.3 C (95.5 F) (Core) Resp 18 Wt 61.7 kg (136 lb) LMP (LMP Unknown) SpO2 95% BMI 26.56 kg/m OB Status Postmenopausal Smoking Status Former BSA 1.62 m General: awake, alert and oriented. No acute distress. Skin: Skin is warm, dry and intact without rashes or lesions. Appropriate color for ethnicity. Nailbeds pink with no cyanosis or clubbing HEENT: normocephalic, atraumatic; conjunctivae are clear without exudates or hemorrhage. Sclera is non-icteric. Eyelids are normal in appearance without swelling or lesions. Hearing intact. Nares arepatent bilaterally. Moist mucous membranes. Cardiovascular: Regular. Harsh systolic murmur; no gallops, or rubs are auscultated. S1 and S2 are heard and are of normal intensity. No JVD, no carotid bruits Respiratory: Thorax symmetric. CTAB, breath sounds vesicular. No crackles, wheezes or ronchi. Gastrointestinal: soft, non-distended, BS + x 4 Genitourinary: exam deferred Musculoskeletal: moves all extremities Extremities: pulses palpable bilaterally; no swelling or erythema; no edema Neurological: alert & oriented x 3; no focal deficits Psychiatric: appropriate mood and affect Current Outpatient Medications Medication Instructions acetaminophen (TYLENOL) 650 mg, oral, Every 6 hours PRN amLODIPine (Norvasc) 10 mg tablet 1 tablet, Daily (629) aspirin 81 mg, Daily RT calcium carbonate 600 mg, Daily cyclobenzaprine (FLEXERIL) 10 mg, oral, 3 times daily PRN docusate sodium (COLACE) 100 mg, oral, 2 times daily PRN lidocaine-prilocaine (Emla) 2.5-2.5 % cream 1 Application, Once PRN Procedure lisinopril 40 mg tablet 1 tablet, Daily (629) melatonin 10 mg, Nightly PRN metoprolol tartrate (LOPRESSOR) 50 mg, oral, 2 times daily multivitamin with minerals tablet 1 tablet, oral, Daily OLANZapine (ZYPREXA) 2.5 mg, oral, Nightly ondansetron (ZOFRAN) 8 mg, Every 8 hours PRN pantoprazole (PROTONIX) 40 mg, Daily before breakfast polyethylene glycol (GLYCOLAX, MIRALAX) 17 g, oral, Daily PRN rosuvastatin (CRESTOR) 20 mg, Daily sertraline (ZOLOFT) 100 mg, Daily traZODone (DESYREL) 100 mg, Nightly PRN Lab Review Lab Results Component Value Date HGB 8.9 (L) 08/16/2024 HGB 9.8 (L) 08/09/2024 HGB 10.1 (L) 08/08/2024 PLT 172 08/16/2024 WBC 6.9 08/16/2024 NA 137 08/16/2024 K 5.3 08/16/2024 CREATININE 0.86 08/16/2024 CREATININE 0.65 08/09/2024 CREATININE 0.67 08/08/2024 BUN 16 08/16/2024 CALCIUM 8.2 (L) 08/16/2024 INR 1.5 (H) 08/01/2024 BNP 799 (H) 06/06/2024 TROPHS 45 (H) 03/08/2024 Assessment/Plan Cardiac issues are as follows: Ischemic cardiomyopathy with normal ejection fraction -Current medical therapy includes lisinopril 5 mg, sotalol 120 mg twice daily -On aspirin 81 mg, rosuvastatin 20 mg -Most recent cardiac catheterization notes patent FULLER-LAD. Bioprosthetic valve stenosis/regurgitation -Is now status post bioprosthetic valve replacement with most recent echocardiogram showing stable hemodynamics of the bioprosthetic aortic valve -Underwent ascending aortic replacement with Dr. Lozano on 08/03/2024 Intent to use cardiotoxic chemotherapy -Plan is to do HER2/harman targeted therapy History of ICD placement with prior ventricular tachycardia -Currently on sotalol 120 mg twice daily Plan: -While she is on HER2/harman targeted therapy will recommend surveillance echocardiograms every 3 months. Okay to start treatment at this point appears warm and dry on exam -Continue aspirin/statin given history of ischemic cardiomyopathy -QTc in clinic today appears to be 500 ms. Follows with EP at [place]. Recommend checking with themabout recommendations with sotalol dosing -Will refer to cardiac rehab given recent valvular replacement. -RTC 3 months w/ echo Cindy Bae MD Advanced Heart Failure/Transplant Cardiology Cardio-Oncology [facility] Work Phone: 1(711) 348-536412-11-2024 Instructions* Patient Instructions* Katrin Rodriguez RN - 09/27/2024 11:45 AM EST Cardiac rehab referral Echo and follow up with Yany Page CNP in 3 months [facility] Work Phone: 1(965) 539-576512-04-2024 History of Present illness Narrative* Marcelo Davey MD - 09/20/2024 10:20 AM EST Images from the original note were not included. Breast [facility] Oncology Clinic Location: Virtual BREAST CANCER DIAGNOSIS Malignant neoplasm of lower-outer quadrant of right breast of female, estrogen receptor negative, Clinical: Stage IIB (cT2(m), cN1(f), cM0, G3, ER-, WV-, HER2+) CURRENT THERAPY S/p 3 cycles of dose reduced gemcitabine/carboplatin days 1 and 8 q21 days HISTORY OF PRESENT ILLNESS Lizbeth Nixon is a 69 y.o. woman with incidentally found breast cancer after chest CT for heart surgery work up (she has aortic valve disease) found breast mass and axillary adenopathy in the right breast. Biopsy of both revealed HER2+, ER/WV- breast cancer. Other outside staging workup raised the possibility of oligo bone metastases however the data was unconvincing. Outside PET/CT vaguely showed two areas in the upper spine but MRI suggests that this could be degenerative disease. Bone scan was definitely negative for bone mets. Cardio- oncology advised against Her2 mAB therapy as she has little cardiac reserve and will need to have aortic valve repair first. She has been on gem/carbo with clinical response in breast. She comes back post cardiac surgery which was on 08/02/24. Doing amazingly well post-surgery and isabck to her functional baseline. Feels as if mass in breast is a bit bigger. She feels what seems to her to be 2 different masses now. Review of Systems Constitutional: Positive for fatigue. Negative for appetite change, chills and diaphoresis. HENT: Negative. Negative for hearing loss and lump/mass. Eyes: Negative. Negative for eye problems and icterus. Respiratory: Negative. Negative for chest tightness, cough, hemoptysis, shortness of breath and wheezing. Cardiovascular: Negative. Negative for chest pain, leg swelling and palpitations. Gastrointestinal: Negative for abdominal distention, abdominal pain, blood in stool, constipation, diarrhea and nausea. Endocrine: Negative for hot flashes. Genitourinary: Negative for bladder incontinence, difficulty urinating, dyspareunia, dysuria, frequency and hematuria. Musculoskeletal: Positive for arthralgias and back pain. Negative for gait problem and myalgias. Skin: Negative for rash. Neurological: Negative for dizziness, extremity weakness, gait problem, headaches, numbness and seizures. Hematological: Negative for adenopathy. Does not bruise/bleed easily. Psychiatric/Behavioral: Negative for confusion, depression and sleep disturbance. The patient is not nervous/anxious. All other systems reviewed and are negative. Past Medical History: has a past medical history of Anxiety, Aortic valve insufficiency, Arrhythmia, Arthritis, Ascending aorta dilatation (CMS-HCC), Ascending aorta dilation (CMS-HCC), Breast cancer(Multi), Cerebral vascular accident (Multi), CHF (congestive heart failure), Congestive heart failure (12/01/2023), Coronary artery disease, Depression, Dizziness, GERD (gastroesophageal reflux disease), HOCM (hypertrophic obstructive cardiomyopathy) (Multi) (12/01/2023), transfusion of platelets, Hyperlipidemia, Hypertension, Irregular heart beat, Joint pain, Occlusion and stenosis of bilateral carotid arteries (12/01/2023), Old myocardial infarction, Other chest pain (12/01/2023), Presence ofcombination internal cardiac defibrillator (ICD) and pacemaker, Shortness of breath, TIA (transientischemic attack), and Vision loss. Surgical History: has a past surgical history that includes Other surgical history (07/20/2019); Other surgical history (07/24/2019); Tonsillectomy; Hysterectomy; Cardiac catheterization; Coronary stent placement; Breast biopsy; Coronary artery bypass graft (2004); Insert / replace / remove pacemaker (2010); Aortic valve replacement (2004); Cardiac valve replacement; and Abdominal aortic aneurysmrepair (2004). Social History: reports that she quit smoking about 19 years ago. Her smoking use included cigarettes. She has never been exposed to tobacco smoke. She has never used smokeless tobacco. She reports that she does not drink alcohol and does not use drugs. Family History: Family History Problem Relation Name Age of Onset Breast cancer Mother Cancer Mother colon and breast Heart disease Father Breast cancer Sister Cancer Sister breast Family Oncology History: Cancer-related family history includes Breast cancer in her mother and sister; Cancer in her mother and sister. OBJECTIVE VS / Pain: BP 145/73 (BP Location: Right arm, Patient Position: Sitting, BP Cuff Size: Small adult) Pulse 69 Temp 36.6 C (97.8 F) (Temporal) Wt 60.7 kg (133 lb 14.9 oz) LMP (LMP Unknown) BMI 26.16 kg/m BSA: 1.6 meters squared Pain Scale: 2 Performance Status: The ECOG performance scale today is ECO- Restricted in physically strenuous activity. Carries out light duty. Physical Exam Vitals reviewed. Cardiovascular: Rate and Rhythm: Normal rate. Heart sounds: No murmur (+loud aortic murmur) heard. Neurological: General: No focal deficit present. Mental Status: She is oriented to person, place, and time. Diagnostic Results [facility], [address], [address], [place], [place] [address] and TRANSTHORACIC ECHOCARDIOGRAM REPORT Patient Name: LIZBETH NIXON Reading Physician: [id number] Vikram Schofield MD Study Date: 09/19/2024 Ordering Provider: [id number] RUEL LOZANO MRN/PID: [id number] Fellow: Nurse: Yany De Jesus RN Date of /Age: 401/26/1955 [employer] Pay Technician: Estefania De La Rosa RDCS years Gender assigned at F Additional Staff: : Height: 152.40 cm Admit Date: Weight: 61.69 kg Admission Status: Outpatient BSA / BMI: 1.58 m2 / 26.56 kg/m2 Blood Pressure: 134/67 mmHg Department Location: [facility] Study Type: TRANSTHORACIC ECHO (TTE) COMPLETE Diagnosis/ICD: Presence of prosthetic heart valve-Z95.2 Indication: AVR CPT Code: Echo Complete w Full Doppler-[id number] Patient History: Pertinent History: A-Fib, Hyperlipidemia and HTN. CABG X 2,,AVR #21mm Avalus ultra (08/01/24),Dilated ascending aorta,Adryan arch graft #28mm,Breast CA,Chemotherapy. Study Detail: The following Echo studies were performed: 2D, M-Mode, Doppler and color flow. Technically challenging study due to body habitus. Definity used as a contrast agent for endocardial border definition. Total contrast used for this procedure was 2 mL via IV push. Patient has a pacemaker. PHYSICIAN INTERPRETATION: Left Ventricle: The left ventricular systolic function is normal, with a visually estimated ejection fraction of 65-70%. There are no regional left ventricular wall motion abnormalities. The left ventricular cavity size is normal. There is moderately increased septal and mildly increased posterior left ventricular wall thickness. There is left ventricular concentric remodeling. Spectral Doppler shows a Grade I (impaired relaxation pattern) of left ventricular diastolic filling with normal left atrial filling pressure. Left Atrium: The left atrium is normal in size. Right Ventricle: The right ventricle is upper limits of normal in size. There is low normal right ventricular systolic function. A device is visualized in the right ventricle. Right Atrium: The right atrium is normal in size. There is a device visualized in the right atrium. Aortic Valve: There is a prosthetic aortic valve present. The aortic valve dimensionless index is 0.71. There is a Medtronic bioprosthetic type aortic valve bioprosthesis with a 21 mm reported size. Echo findings are consistent with normal aortic valve prosthesis structure and function. There is noevidence of aortic valve regurgitation. The peak instantaneous gradient of the aortic valve is 17 mmHg. The mean gradient of the aortic valve is 9 mmHg. Mitral Valve: The mitral valve is mildly thickened. There is mild to moderate mitral annular calcification. There is trace mitral valve regurgitation. Tricuspid Valve: The tricuspid valve is structurally normal. There is mild tricuspid regurgitation.The Doppler estimated RVSP is within normal limits at 27.2 mmHg. Pulmonic Valve: The pulmonic valve is structurally normal. There is mild pulmonic valve regurgitation. Pericardium: Trivial pericardial effusion. Aorta: The aortic root is normal. There is no dilatation of the aortic root. Systemic Veins: The inferior vena cava appears small in size. In comparison to the previous echocardiogram(s): Compared with study dated 08/07/2024, no significant change. CONCLUSIONS: 1. The left ventricular systolic function is normal, with a visually estimated ejection fraction of65-70%. 2. Spectral Doppler shows a Grade I (impaired relaxation pattern) of left ventricular diastolic filling with normal left atrial filling pressure. 3. There is moderately increased septal thickness. 4. Right ventricular systolic pressure is within normal limits. 5. There is a Medtronic bioprosthetic type aortic valve bioprosthesis with a 21 mm reported size. 6. Echo findings are consistent with normal aortic valve prosthesis structure and function. 7. There is low normal right ventricular systolic function. QUANTITATIVE DATA SUMMARY: 2D MEASUREMENTS: Normal Ranges: LAs: 4.67 cm (2.7-4.0cm) IVSd: 1.36 cm (0.6-1.1cm) LVPWd: 1.05 cm (0.6-1.1cm) LVIDd: 3.09 cm (3.9-5.9cm) LVIDs: 2.09 cm LV Mass Index: 72 g/m2 LVEDV Index: 56 ml/m2 LV % FS 32.3 % LA VOLUME: Normal Ranges: LA Vol A4C: 43.1 ml (22+/-6mL/m2) LA Vol A2C: 35.4 ml LA Vol BP: 43.0 ml LA Vol Index A4C: 27.2 ml/m2 LA Vol Index A2C: 22.4 ml/m2 LA Vol Index BP: 27.2 ml/m2 LA Area A4C: 17.0 cm2 LA Area A2C: 14.0 cm2 LA Major Hobson A4C: 5.7 cm LA Major Hobson A2C: 4.7 cm LA Volume Index: 27.0 ml/m2 LA Vol A4C: 41.2 ml LA Vol A2C: 34.7 ml LA Vol Index BSA: 24.0 ml/m2 RA VOLUME BY A/L METHOD: Normal Ranges: RA Vol A4C: 21.8 ml (8.3-19.5ml) RA Vol Index A4C: 13.8 ml/m2 RA Area A4C: 10.0 cm2 RA Major Hobson A4C: 3.9 cm M-MODE MEASUREMENTS: Normal Ranges: Ao Root: 2.60 cm (2.0-3.7cm) LAs: 4.70 cm (2.7-4.0cm) AORTA MEASUREMENTS: Normal Ranges: Asc Ao, d: 3.00 cm (2.1-3.4cm) LV SYSTOLIC FUNCTION BY 2D PLANIMETRY (MOD): Normal Ranges: EF-A4C View: 64 % (>=55%) EF-A2C View: 65 % EF-Biplane: 65 % EF-Visual: 68 % LV EF Reported: 68 % LV DIASTOLIC FUNCTION: Normal Ranges: MV Peak E: 1.01 m/s (0.7-1.2 m/s) MV Peak A: 1.24 m/s (0.42-0.7 m/s) E/A Ratio: 0.81 (1.0-2.2) MV e' 0.074 m/s (>8.0) MV lateral e' 0.10 m/s MV medial e' 0.05 m/s MV A Dur: 161.75 msec E/e' Ratio: 13.73 (<8.0) PulmV Sys Vaughn: 35.06 cm/s PulmV Rios Vaughn: 41.13 cm/s PulmV S/D Vaughn: 0.85 PulmV A Revs Vaughn: 25.89 cm/s PulmV A Revs Dur: 148.43 msec MITRAL VALVE: Normal Ranges: MV DT: 229 msec (150-240msec) AORTIC VALVE: Normal Ranges: AoV Vmax: 2.06 m/s (<=1.7m/s) AoV Peak P.1 mmHg (<20mmHg) AoV Mean P.7 mmHg (1.7-11.5mmHg) LVOT Max Vaughn: 1.34 m/s (<=1.1m/s) AoV VTI: 43.23 cm (18-25cm) LVOT VTI: 30.83 cm LVOT Diameter: 1.82 cm (1.8-2.4cm) AoV Area, VTI: 1.85 cm2 (2.5-5.5cm2) AoV Area,Vmax: 1.68 cm2 (2.5-4.5cm2) AoV Dimensionless Index: 0.71 RIGHT VENTRICLE: RV Basal 3.30 cm RV Mid 2.40 cm RV Major 5.6 cm TAPSE: 12.3 mm RV s' 0.08 m/s TRICUSPID VALVE/RVSP: Normal Ranges: Peak TR Velocity: 2.46 m/s RV Syst Pressure: 27 mmHg (< 30mmHg) IVC Diam: 1.10 cm PULMONIC VALVE: Normal Ranges: PV Accel Time: 89 msec (>120ms) PV Max Vaughn: 1.1 m/s (0.6-0.9m/s) PV Max P.6 mmHg Pulmonary Veins: PulmV A Revs Dur: 148.43 msec PulmV A Revs Vaughn: 25.89 cm/s PulmV Rios Vaughn: 41.13 cm/s PulmV S/D Vaughn: 0.85 PulmV Sys Vaughn: 35.06 cm/s I MAMMO RIGHT DIAGNOSTIC TOMOSYNTHESIS; BI US BREAST LIMITED RIGHT; 09/20/2024 1:50 pm; 09/20/2024 2:16 pm ACCESSION NUMBER(S): [id number]; [id number] ORDERING CLINICIAN: MARCELO DAVEY INDICATION: Multifocal right breast cancer with preoperative chemotherapy terminated May 2024. Mag seed placement within 3 right breast masses and right axillary lymph node performed 03/14/2024. Preoperative evaluation. ,C50.919 Malignant neoplasm of unspecified site of unspecified female breast,Z17.0 Estrogen receptor positive status (ER+),C50.511 Malignant neoplasm of lower-outer quadrant of right female breast,Z17.1 Estrogen receptor negative status (ER-) COMPARISON: Right mammograms 03/14/2024, 02/09/2024, 11/25/2023. Right breast ultrasound 02/09/2024 with Mag seed placement 03/14/2024 FINDINGS: MAMMOGRAPHY: 2D and tomosynthesis images were reviewed at 1 mm slice thickness. Density: There are scattered areas of fibroglandular density. A partially visualized mass with associated tissue marker and Mag seed is identified in the deep central right breast at the level of the pectoralis muscle, seen only on the MLO view. No suspicious masses or calcifications are identified. The 3 biopsy-proven sites of malignancy are posteriorly located and not included in the mammographic field of view. A MediPort overlies the right axilla. A single low-lying prominent axillary lymph node is visualized. Additional benign-appearing right axillary lymph nodes are visualized. ULTRASOUND: Targeted ultrasound was performed of the lower outer right breast and right axilla by a registered wireline supervisor with elastography. The biopsy-proven malignancy at the 8 o'clock position of the right breast 7 cm from the nipple measures 1.7 x 1.5 x 1.6 cm (previously 2.1 x 2.4 by 1.8 cm). There is an internal biopsy clip and Mag seed. The biopsy-proven malignancy at the 7 o'clock position of the right breast 7 cm from the nipple measures 0.7 x 0.6 x 0.5 cm (previously 0.8 x 0.7 x 0.6 cm). The associated Mag seed is not well seen. The biopsy-proven malignancy at the 6 o'clock position 4 cm from the nipple measures 1.2 x 0.8 x 0.9 cm (previously 1.5 x 0.9 x 1.3 cm). The associated tissue marker and Mag seed are visualized. Biopsied right axillary lymph node remains stable when accounting for differences in scanning, measuring 1.3 by 1.6 x 1.3 cm. The associated tissue marker and Mag seed are visualized. There is a hypoechoic tract extending to the skin surface consistent with post biopsy change. IMPRESSION: Multifocal breast cancer with either interval decrease in size or stability compared with pre biopsy imaging 02/09/2024. Mag seed placement has already been performed. BI-RADS CATEGORY: BI-RADS CATEGORY: 6 Known Biopsy-Proven Malignancy. Recommendation: Immediate Follow-up. Recommended Date: Immediate. Laterality: Right. For any future breast imaging appointments, please call [phone] ([phone]). LABORATORY/PATHOLOGY DATA Hospital Outpatient Visit on 09/19/2024 Component Date Value Ref Range Status AV pk vaughn 09/19/2024 2.06 m/s Final AV mn grad 09/19/2024 9 mmHg Final LVOT diam 09/19/2024 1.82 cm Final MV E/A ratio 09/19/2024 0.81 Final LA vol index A/L 09/19/2024 27.2 ml/m2 Final Tricuspid annular plane systolic e* 09/19/2024 1.2 cm Final LV EF 09/19/2024 68 % Final RV free wall pk S' 09/19/2024 8.00 cm/s Final LVIDd 09/19/2024 3.09 cm Final RVSP 09/19/2024 27.2 mmHg Final Aortic Valve Area by Continuity of* 09/19/2024 1.85 cm2 Final Aortic Valve Area by Continuity of* 09/19/2024 1.68 cm2 Final AV pk grad 09/19/2024 17 mmHg Final LV A4C EF 09/19/2024 63.5 Final Lab on 08/16/2024 Component Date Value Ref Range Status WBC 08/16/2024 6.9 4.4 - 11.3 x10*3/uL Final nRBC 08/16/2024 Final RBC 08/16/2024 2.79 (L) 4.00 - 5.20 x10*6/uL Final Hemoglobin 08/16/2024 8.9 (L) 12.0 - 16.0 g/dL Final Hematocrit 08/16/2024 26.8 (L) 36.0 - 46.0 % Final MCV 08/16/2024 96 80 - 100 fL Final MCH 08/16/2024 31.9 26.0 - 34.0 pg Final MCHC 08/16/2024 33.2 32.0 - 36.0 g/dL Final RDW 08/16/2024 13.4 11.5 - 14.5 % Final Platelets 08/16/2024 172 150 - 450 x10*3/uL Final Glucose 08/16/2024 99 74 - 99 mg/dL Final Sodium 08/16/2024 137 136 - 145 mmol/L Final Potassium 08/16/2024 5.3 3.5 - 5.3 mmol/L Final Chloride 08/16/2024 99 98 - 107 mmol/L Final Bicarbonate 08/16/2024 27 21 - 32 mmol/L Final Anion Gap 08/16/2024 16 10 - 20 mmol/L Final Urea Nitrogen 08/16/2024 16 6 - 23 mg/dL Final Creatinine 08/16/2024 0.86 0.50 - 1.05 mg/dL Final eGFR 08/16/2024 73 >60 mL/min/1.73m*2 Final Calcium 08/16/2024 8.2 (L) 8.6 - 10.6 mg/dL Final Phosphorus 08/16/2024 4.1 2.5 - 4.9 mg/dL Final Albumin 08/16/2024 3.8 3.4 - 5.0 g/dL Final Magnesium 08/16/2024 2.44 (H) 1.60 - 2.40 mg/dL Final Outside pathology report reviewed. IMPRESSION/PLAN [id number] HER2+/ER-/WV- right sided breast cancer. Post aortic valve repair surgery she is a candidate for trastuzumab. I have discussed with Dr Bae who has recommended that it is safe to proceed but she would require Q3 month echos. Breast cancer appears stable based on breast imaging from today. We discussed the clinical significance of diagnosis, goals of care and treatment plan in detail. Plan is to re-stage the patient with a PET/CT given prior abnormalities noted on CT. I will plan on starting her on neoadjuvant trastuzumab in the next 2-3 wks and will get her reconnected with Dr Wagoner breast surgery if she doesn't have any evidence of distant metastases. I personally spent over half of a total 35 minutes face to face with the patient in counseling and discussion and/or coordination of care as described above. Marcelo Davey MD Director of Breast Cancer Medical Oncology Research Program [facility] environmental communications specialist [address] [place] [address] [email or web address] documented in this encounterUnCorey Hospital Work Phone: 1(168) 799-227812-04-2024 Instructions* Patient Instructions* Pearl Mason RN - 09/20/2024 10:20 AM EST Please call us at [phone] option 5 then option 2 with any questions or concerns. Please get mammogram, breast ultrasound, and pet ct first. Herceptin to start in the next 2 weeks. Follow up with Dr. Davey November 01 [facility] labs and flush to be schedule as soon as possible documented in this encounterUnCorey Hospital Work Phone: 1(852) 936-308010-23-2024 History of Present illness Narrative* Rosa Rey RN - 08/09/2024 12:14 PM EDT 08/09/24 1213 Discharge Planning Expected Discharge Disposition Home H ([facility]) [facility] was notified of patient's plan to discharge home today. They confirmed start of care in 24-48 hours. * Yeny Barrera PTA - 08/09/2024 11:58 AM EDT Physical Therapy Therapy Communication Note Patient Name: Lizbeth Nixon Department: [place] [address] Room: [address] [place] [address] Today's Date: 08/09/2024 Discipline: Physical Therapy Missed Visit Reason: Missed Visit Reason: Patient refused (Pt declining therapy at this time. Plan for D/C to home later today, pt reports no PT concerns prior to D/C) Missed Time: Attempt 1155 Comment: Cosigned by Sonya Queen, PT at 08/09/2024 12:07 PM EDT * Awa Dang, MOTION PICTURE PROJECTIONIST-CUSTOM STOCK MAKER - 08/09/2024 10:26 AM EDT CARDIAC SURGERY DAILY PROGRESS NOTE Lizbeth Nixon is a 69 year old female with a PMH significant for CABG and AVR in 2004, hysterectomy, breast cancer s/p chemo (mediport), 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 She presents s/p redo sternotomy, CABG x 2 (SVG-PDA and SVG-SVG previous graft), AVR bioprosthetic and ascending Aorta/Adryan- Arch w/ Dr. Lozano on 08/01. 08/01/2024 OPERATION: by Ruel Lozano REDO Replacement Aortic Valve w/21mm Avalus Ultra, REDO Cabg x 2 w/Right Saphenous Vein, Open Saphenous Vein [place], SVG - PDA, SVG to left sided SVG, REDO Median Sternotomy, Right Femoral Arterial and Venous Exploration Replacement of Ascending Aorta w/28mm x 8mm Ante-Roberto Gelweave, Hypothermic Circulatory Arrest, Retrograde Cereberal Perfusion Echo Pre/Post: normal BIV, moderate LVH Chest Tubes/Drains: RPL, LPL, MS Temporary wires location/setting: V wires CTICU course: uneventful Transferred to the floor 08/04 Interval History: No issues overnight SUBJECTIVE: Tolerating diet. Happy to be going home. Objective BP 134/67 Pulse 84 Temp 35.3 C (95.5 F) Resp 17 Ht 1.524 m (5') Wt 62.1 kg (136 lb 14.4 oz) LMP (LMP Unknown) SpO2 95% BMI 26.74 kg/m 0-10 (Numeric) Pain Score: 7 3 Day Weight Change: -0.816 kg (-1 lb 12.8 oz) per day Intake and Output Intake/Output Summary (Last 24 hours) at 08/09/2024 1026 Last data filed at 08/09/2024 1000 Gross per 24 hour Intake 240 ml Output 176 ml Net 64 ml Physical Exam Physical Exam Vitals and nursing note reviewed. Constitutional: Comments: Awake no distress, alert and cooperative. Up in chair HENT: Head: Normocephalic. Comments: no apparent injury, no lesions seen Mouth/Throat: Mouth: Mucous membranes are moist. Eyes: Conjunctiva/sclera: Conjunctivae normal. Neck: Comments: trachea midline Cardiovascular: Rate and Rhythm: Normal rate and regular rhythm. Pulses: Normal pulses. Comments: NSR Rate 70s-80s Epicardial wires pulled 08/08 Pulmonary: Effort: Pulmonary effort is normal. Comments: diminished Room air Sternum stable Abdominal: General: Bowel sounds are normal. Palpations: Abdomen is soft. Comments: + postop BM Genitourinary: Comments: Voids independently Musculoskeletal: General: Normal range of motion. Cervical back: Neck supple. Skin: General: Skin is warm and dry. Capillary Refill: Capillary refill takes less than 2 seconds. Comments: Midsternal, GALE, well approx. w/ derma miller, NO s/s infection erythema, oozing or hematoma Neurological: General: No focal deficit present. Mental Status: She is alert and oriented to person, place, and time. Psychiatric: Mood and Affect: Mood normal. Behavior: Behavior normal. Medications Scheduled medications acetaminophen, 650 mg, oral, q6h aspirin, 81 mg, oral, Daily atorvastatin, 80 mg, oral, Nightly furosemide, 20 mg, oral, Daily heparin (porcine), 5,000 Units, subcutaneous, q8h iron polysaccharides, 150 mg, oral, Daily lidocaine, 2 patch, transdermal, Daily lisinopril, 2.5 mg, oral, Daily melatonin, 10 mg, oral, Nightly metoprolol tartrate, 50 mg, oral, BID multivitamin with minerals, 1 tablet, oral, Daily pantoprazole, 40 mg, oral, Daily before breakfast polyethylene glycol, 17 g, oral, BID sennosides-docusate sodium, 2 tablet, oral, BID sertraline, 100 mg, oral, Daily Continuous medications PRN medications PRN medications: diclofenac sodium, naloxone, [DISCONTINUED] ondansetron OR ondansetron, oxyCODONE, oxygen Labs Results for orders placed or performed during the hospital encounter of 08/01/24 (from the past 24 hours) POCT GLUCOSE Result Value Ref Range POCT Glucose 103 (H) 74 - 99 mg/dL POCT GLUCOSE Result Value Ref Range POCT Glucose 94 74 - 99 mg/dL POCT GLUCOSE Result Value Ref Range POCT Glucose 142 (H) 74 - 99 mg/dL Magnesium Result Value Ref Range Magnesium 2.22 1.60 - 2.40 mg/dL CBC Result Value Ref Range WBC 8.0 4.4 - 11.3 x10*3/uL nRBC 0.0 0.0 - 0.0 /100 WBCs RBC 3.14 (L) 4.00 - 5.20 x10*6/uL Hemoglobin 10.1 (L) 12.0 - 16.0 g/dL Hematocrit 30.2 (L) 36.0 - 46.0 % MCV 96 80 - 100 fL MCH 32.2 26.0 - 34.0 pg MCHC 33.4 32.0 - 36.0 g/dL RDW 13.5 11.5 - 14.5 % Platelets 128 (L) 150 - 450 x10*3/uL Renal Function Panel Result Value Ref Range Glucose 100 (H) 74 - 99 mg/dL Sodium 133 (L) 136 - 145 mmol/L Potassium 5.3 3.5 - 5.3 mmol/L Chloride 94 (L) 98 - 107 mmol/L Bicarbonate 29 21 - 32 mmol/L Anion Gap 15 10 - 20 mmol/L Urea Nitrogen 19 6 - 23 mg/dL Creatinine 0.62 0.50 - 1.05 mg/dL eGFR >90 >60 mL/min/1.73m*2 Calcium 9.3 8.6 - 10.6 mg/dL Phosphorus 5.3 (H) 2.5 - 4.9 mg/dL Albumin 4.1 3.4 - 5.0 g/dL POCT GLUCOSE Result Value Ref Range POCT Glucose 137 (H) 74 - 99 mg/dL Renal function panel Result Value Ref Range Glucose 110 (H) 74 - 99 mg/dL Sodium 134 (L) 136 - 145 mmol/L Potassium 4.3 3.5 - 5.3 mmol/L Chloride 91 (L) 98 - 107 mmol/L Bicarbonate 32 21 - 32 mmol/L Anion Gap 15 10 - 20 mmol/L Urea Nitrogen 18 6 - 23 mg/dL Creatinine 0.67 0.50 - 1.05 mg/dL eGFR >90 >60 mL/min/1.73m*2 Calcium 9.4 8.6 - 10.6 mg/dL Phosphorus 5.6 (H) 2.5 - 4.9 mg/dL Albumin 4.2 3.4 - 5.0 g/dL Magnesium Result Value Ref Range Magnesium 2.23 1.60 - 2.40 mg/dL CBC Result Value Ref Range WBC 7.4 4.4 - 11.3 x10*3/uL nRBC 0.0 0.0 - 0.0 /100 WBCs RBC 3.13 (L) 4.00 - 5.20 x10*6/uL Hemoglobin 9.8 (L) 12.0 - 16.0 g/dL Hematocrit 28.8 (L) 36.0 - 46.0 % MCV 92 80 - 100 fL MCH 31.3 26.0 - 34.0 pg MCHC 34.0 32.0 - 36.0 g/dL RDW 13.5 11.5 - 14.5 % Platelets 140 (L) 150 - 450 x10*3/uL Renal Function Panel Result Value Ref Range Glucose 76 74 - 99 mg/dL Sodium 134 (L) 136 - 145 mmol/L Potassium 4.2 3.5 - 5.3 mmol/L Chloride 92 (L) 98 - 107 mmol/L Bicarbonate 30 21 - 32 mmol/L Anion Gap 16 10 - 20 mmol/L Urea Nitrogen 19 6 - 23 mg/dL Creatinine 0.65 0.50 - 1.05 mg/dL eGFR >90 >60 mL/min/1.73m*2 Calcium 9.0 8.6 - 10.6 mg/dL Phosphorus 5.7 (H) 2.5 - 4.9 mg/dL Albumin 3.8 3.4 - 5.0 g/dL IMAGING/ DIAGNOSTIC TESTING: I have personally reviewed the following test result(s): TRANSTHORACIC ECHOCARDIOGRAM REPORT 08/07/24 CONCLUSIONS: 1. Poorly visualized anatomical structures due to suboptimal image quality. 2. Left ventricular ejection fraction is normal, by visual estimate at 70-75%. 3. Spectral Doppler shows a pseudonormal pattern of left ventricular diastolic filling. 4. There are elevated left atrial and left ventricular end diastolic pressures. 5. Abnormal septal motion consistent with post-operative status. 6. There are intracavitary gradients due to hyperdynamic LV. 7. Unable to determine right ventricular systolic function. 8. The left atrium is mild to moderately dilated. 9. Normal gradients for a prosthetic aortic valve. 10. There is a bioprosthetic aortic valve. 11. Compared with study dated 08/01/2024, no significant change. XR chest 2 views 08/06/2024 Impression 1. Nzner-wjwywze-tpea-left basilar opacities which most likely represent atelectasis. 2. Small right and probable trace left pleural effusions. No pneumothorax. 3. Medical devices as above. IMPRESSION & PLAN: POD # 8 s/p Redo sternotomy, CABG x 2 (SVG-PDA and SVG-SVG previous graft), AVR, Ascending aorta and adryan arch replacement 08/[address] Lozano - Increase activity/ ambulation; PT/OT - Encourage IS, C/DB; respiratory therapy; wean O2 as brittany - Cardiac rehab referral - Continue cardiac meds: ASA, BB, statin - Pain and anticonstipation meds - 2v CXR 08/06 - Postop echo completed 08/07 - Removed epicardial wires 08/08 - Tele until discharge - Optimize nutrition and electrolytes Rhythm: home sotalol 120 mg BID AICD/PPM. Hcx of ventricular tachycardia and persistent AFIB - Tele: SR 70s-80s - Continue BB - PPM DDDr 60-120; device interrogated on on 08/04 back on Home setting - Adjust medications as tolerated - holdng home sotalol Acute Blood Loss Anemia Recent Labs 08/09/24 0628 08/08/24 1223 08/07/24 0656 08/06/24 0744 08/05/24 0628 08/04/24 0238 08/03/24 1500 HGB 9.8* 10.1* 9.4* 9.7* 9.5* 9.1* 10.1* HCT 28.8* 30.2* 28.0* 30.4* 29.8* 26.9* 30.9* - MV, PO Iron x1mo - Daily labs, transfuse as indicated Thrombocytopenia- improved Recent Labs 08/09/24 0628 08/08/24 1223 08/07/24 0656 08/06/24 0744 08/05/24 0628 08/04/2423708/03/24 1500 PLT 140* 128* 93* 81* 66* 52* 58* - Etiology likely postop/CPB related - Continue to trend with daily CBCs Volume/Electrolyte Status: Preop wt Weight: 65.1 kg (143 lb 8.3 oz) Chronic diastolic heart failurewith EF 70 % , HOCM Vitals: 08/09/24 0110 Weight: 62.1 kg (136 lb 14.4 oz) - Weight: 62.1, 63.4, 64, 64.5, 64.5 kg - Adjust diuresis as needed for postop cardiac surgery hypervolemia - Replete electrolytes for hypokalemia/hypomagnesemia/hypophosphatemia as needed K replaced - Daily weights and strict I&Os - Daily RFP while admitted Leukocytosis- resolved Recent Labs 08/09/24 0628 08/08/24 1223 08/07/24 0656 08/06/24 0744 08/05/24 0628 08/04/2423708/03/24 1500 WBC 7.4 8.0 6.1 5.6 5.8 8.5 12.1* Temp (36hrs), Av.1 C (97 F), Min:35.3 C (95.5 F), Max:36.9 C (98.4 F) - aggressive pulmonary hygiene - monitor for s/s infection - likely atelectasis/ postoperative in etiology - daily CBC to follow Post op dysphagia - Speech consulted - dobhoff placed in ICU - NPO, Continue TF as tolerated - 7-10 ice chips/hr. allowed after oral care for safe swallow stimulation, pleasure and to reduce build-up of colonized bacteria within the oropharynx. 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); Bilateral carotid stenosis - Serial neuro and pain assessments - continue ASA Hypertension: home meds norvasc 10mg daily, lisinopril 40mg daily Systolic (24hrs), Av , Min:122 , Max:150 - continue BB - resumed low dose lisinopril 08/05; increase as tolerated Hyperlipidemia: home rosuvastatin 20mg daily No results found for: CHOL, HDL, VLDL, TRIG, NHDL -continue statin -follow up lipid panel with PCP/ cardio as appropriate GERD: home pantoprazole 40mg daily - Cont PPI - Avoid taking pills on an empty stomach - Eat small frequent meals - eat sitting up in the chair - avoid acidic foods Anxiety/Depression: home sertraline 100mg daily, trazodone 100mg at bedtime for sleep, olanzapine 2.5 mg daily at bedtime - continue home medications - offer support - sleep/ wake cycle hygiene - control pain with PRN meds - Continue home sertraline 100 mg daily - Hold home olanzapine, trazodone, OA - PT/OT - Hot and cold packs - Acetaminophen - No NSAIDs for 3 months after cardiac surgery; if NSAIDs needed after 3 months, clear use with court bailiff before starting OARRS reviewed on 08/07/2024 Recent scripts: 05/17/24, Medication: Oxycodone-Acetaminophen 5-325 , Qty: 20, Days supply: 7, prescribed by Amber MURILLO 05/13/24, Medication: Oxycodone-Acetaminophen 5-325 , Qty: 9, Days supply: 30, prescribed by [facility] 04/30/24, Medication: Oxycodone-Acetaminophen 5-325 , Qty: 10, Days supply: 4, prescribed by Jesus Luu VTE Prophylaxis: SCDs/TEDs, ambulation, SQ heparin Code Status: Full Code Dispo - PT/OT recs Home - Would benefit from homecare RN for cardiac surgery carepath - Anticipate discharge today 08/09 - Will continue to assess discharge needs WILEY Reynolds Cardiac Surgery [facility] Team 08/09/2024 10:26 AM * Georgette AlmeidaPT - 08/08/2024 2:54 PM EDT Physical Therapy Therapy Communication Note Patient Name: Lizbeth Nixon Department: [place] [address] Room: [address] [place] [address] Today's Date: 08/08/2024 Discipline: Physical Therapy Missed Visit Reason: Missed Visit Reason: (1452- Pt on bed rest for 1 hour following removal of epicardial wires. Will re-attempt as appropriate.) Missed Time: Attempt Cosigned by Kailey Glasgow PT at 08/08/2024 2:55 PM EDT * Shawna Casanova, WATER LEAK REPAIRER - 08/08/2024 9:23 AM EDT Speech-Language Pathology Inpatient Modified Barium Swallow Study Patient Name: Lizbeth Nixon : 1955 Today's Date: 08/08/24 Start Time: 0815 Stop Time: 0845 Time Calculation (min): 30 Modified Barium Swallow Study completed. Informed verbal consent obtained prior to completion of exam. Trials of thin liquids, mildly thick liquids, puree and regular solids were given. WATER LEAK REPAIRER: Shawna Casanova WATER LEAK REPAIRER Contact info: [employer] Reason for Referral: C/f aspiration/oropharyngeal dysphagia Patient Hx: This is a 69 year old female with a PMH significant for CABG and AVR in 2004, hysterectomy, breast cancer s/p chemo (mediport), 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 She presents s/p redo sternotomy, CABG x 2 and AVR bioprosthetic w/ Dr. Lozano. Respiratory Status: room air Current diet: NPO w/ alternate means nutrition/hydration Pain: Pain Scale: 0-10 Rating: no pain reported DIET RECOMMENDATIONS: Regular diet/Thin liquids -upright at 90 degrees for all PO intake -maintain upright position for at least 20-30 minutes post PO intake -small bites/single sips -slow rate of oral intake -pills via pt preference -if pt demonstrates any change/decline in medical/mental/respiratory status please make NPO and alert WATER LEAK REPAIRER WATER LEAK REPAIRER PLAN: Skilled WATER LEAK REPAIRER Services: No further skilled WATER LEAK REPAIRER intervention is warranted for dysphagia at this time. Discussed POC: patient Discussed Risks/Benefits: Yes Patient/Caregiver Agreeable: Yes Short term goals established: Pt will tolerate least restrictive diet with no overt clinical s/s aspiration 100% of the time. Start Date: 08/03/24 End Date: 08/17/24 Status: Discontinued Education Provided: Results and recommendations per MBSS, with video review; recommendations and POC at this time. Verbal understanding and agreement given on all accounts. Treatment Provided Today: WATER LEAK REPAIRER provided extensive education and training to pt/pt family regarding anatomy/physiology of swallow function, risk factors of aspiration/aspiration pna & how to mitigate factors, diet modifications, and the use of compensatory swallow strategies to promote pt safety upon PO intake. Additional Medical Consults Suggested: N/A Mechanics of the Swallow Summary: ORAL PHASE: Lip Closure - Intact Tongue Control During Bolus Hold - Intact Bolus prep/mastication - Intact Bolus transport/lingual motion - Intact Oral residue - Intact PHARYNGEAL PHASE: Initiation of pharyngeal swallow - Intact Soft palate elevation - Intact Laryngeal elevation - Intact Anterior hyoid excursion - Intact Epiglottic movement - Intact Laryngeal vestibule closure - Intact Pharyngeal stripping wave - Intact Pharyngoesophageal segment opening - Intact Tongue base retraction - Intact Pharyngeal residue - Intact ESOPHAGEAL PHASE: Esophageal clearance - Not tested WATER LEAK REPAIRER Impressions with Severity Rating: Pt with functional/age appropriate oropharyngeal swallow function. Adequate bolus formation, control and A-P transit across consistencies tested. Timely swallow onset with adequate laryngeal elevation/anterior pull visualized throughout exam. Inconsistent trace transient penetration viewed with thin and mildly thick liquids. Penetrated material fully clears the laryngeal vestibule with the remainder of the swallow; suspect penetration is functional/age- appropriate for this patient. No significant amounts of pharyngeal residue viewed across tested consistencies. WATER LEAK REPAIRER recommends initiation of Regular diet/Thin liquids. See additional PO intake guidelines outlined above. If pt demonstrates any change/decline in medical/mental/respiratory status please make NPO and alert WATER LEAK REPAIRER. No need for continued skilled WATER LEAK REPAIRER services at this time. Will complete order and sign off. MD and nursing aware. Please re-consult when/if indicated. Extensive education/treatment provided to pt after exam complete re: review of images in PACS, diet recommendations/safe swallow guidelines and dysphagia POC. OUTCOME MEASURES: Functional Oral Intake Scale Functional Oral Intake Scale: Level 7 total oral diet with no restrictions Rosenbek's Penetration Aspiration Scale Thin Liquids: 2. PENETRATION that CLEARS - contrast enter airway, above vocal cords, no residue [place] Thick Liquids: 2. PENETRATION that CLEARS - contrast enter airway, above vocal cords, no residue Puree: 1. NO ASPIRATION & NO PENETRATION - no aspiration, contrast does not enter airway Solids: 1. NO ASPIRATION & NO PENETRATION - no aspiration, contrast does not enter airway * Daniela Campbell, NEFTALI-CUSTOM STOCK MAKER - 08/08/2024 8:27 AM EDT CARDIAC SURGERY DAILY PROGRESS NOTE Lizbeth Nixon is a 69 year old female with a PMH significant for CABG and AVR in 2004, hysterectomy, breast cancer s/p chemo (mediport), 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 She presents s/p redo sternotomy, CABG x 2 (SVG-PDA and SVG-SVG previous graft), AVR bioprosthetic and ascending Aorta/Adryan- Arch w/ Dr. Lozano on 08/01. 08/01/2024 OPERATION: by Ruel Lozano REDO Replacement Aortic Valve w/21mm Avalus Ultra, REDO Cabg x 2 w/Right Saphenous Vein, Open Saphenous Vein [place], SVG - PDA, SVG to left sided SVG, REDO Median Sternotomy, Right Femoral Arterial and Venous Exploration Replacement of Ascending Aorta w/28mm x 8mm Ante-Roberto Gelweave, Hypothermic Circulatory Arrest, Retrograde Cereberal Perfusion Echo Pre/Post: normal BIV, moderate LVH Chest Tubes/Drains: RPL, LPL, MS Temporary wires location/setting: V wires CTICU course: uneventful Transferred to the floor 08/04 Interval History: No issues overnight SUBJECTIVE: Feeling very good asking about when she cn go home Objective BP 136/62 (BP Location: Right arm, Patient Position: Sitting) Pulse 85 Temp 36.9 C (98.4 F) (Temporal) Resp 18 Ht 1.524 m (5') Wt 63.4 kg (139 lb 11.2 oz) LMP (LMP Unknown) SpO2 93% BMI 27.28 kg/m 0-10 (Numeric) Pain Score: 0 - No pain [place]-Major FACES Pain Rating: Hurts little more 3 Day Weight Change: -0.544 kg (-1 lb 3.2 oz) per day Intake and Output Intake/Output Summary (Last 24 hours) at 08/08/2024 0827 Last data filed at 08/07/2024 2304 Gross per 24 hour Intake 400 ml Output -- Net 400 ml Physical Exam Physical Exam Vitals and nursing note reviewed. Constitutional: Comments: Awake no distress, alert and cooperative. Laying in bed HENT: Head: Comments: no apparent injury, no lesions seen Mouth/Throat: Mouth: Mucous membranes are dry. Eyes: Conjunctiva/sclera: Conjunctivae normal. Neck: Comments: trachea midline Cardiovascular: Rate and Rhythm: Normal rate and regular rhythm. Pulses: Normal pulses. Comments: NSR Rate 70 AV pacer wires capped Pulmonary: Effort: Pulmonary effort is normal. Comments: diminished breath sounds bilaterally on the bases Oxygen On 2 LNC Sternum stable Abdominal: General: Bowel sounds are normal. Palpations: Abdomen is soft. Comments: + postop BM Genitourinary: Comments: Voids independently Musculoskeletal: General: Normal range of motion. Cervical back: Neck supple. Comments: GARCÍA, deconditioning Skin: General: Skin is warm and dry. Capillary Refill: Capillary refill takes less than 2 seconds. Comments: Midsternal, CAPTAIN/AIRLINE PILOT, well approx. w/ derma miller, NO s/s infection erythema, oozing or hematoma Neurological: General: No focal deficit present. Mental Status: She is alert and oriented to person, place, and time. Psychiatric: Mood and Affect: Mood normal. Behavior: Behavior normal. Medications Scheduled medications acetaminophen, 650 mg, oral, q6h aspirin, 81 mg, oral, Daily atorvastatin, 80 mg, oral, Nightly heparin (porcine), 5,000 Units, subcutaneous, q8h insulin lispro, 0-10 Units, subcutaneous, TID iron polysaccharides, 150 mg, oral, Daily lidocaine, 2 patch, transdermal, Daily lisinopril, 2.5 mg, oral, Daily melatonin, 10 mg, oral, Nightly metoprolol tartrate, 50 mg, oral, BID multivitamin with minerals, 1 tablet, oral, Daily pantoprazole, 40 mg, oral, Daily before breakfast polyethylene glycol, 17 g, oral, BID sennosides-docusate sodium, 2 tablet, oral, BID sertraline, 100 mg, oral, Daily Continuous medications PRN medications PRN medications: dextrose, dextrose, diclofenac sodium, glucagon, glucagon, naloxone, [DISCONTINUED] ondansetron OR ondansetron, oxyCODONE, oxygen Labs Results for orders placed or performed during the hospital encounter of 08/01/24 (from the past 24 hours) POCT GLUCOSE Result Value Ref Range POCT Glucose 123 (H) 74 - 99 mg/dL POCT GLUCOSE Result Value Ref Range POCT Glucose 124 (H) 74 - 99 mg/dL Transthoracic Echo (TTE) Complete Result Value Ref Range AV pk vaughn 2.13 m/s AV mn grad 9.0 mmHg LVOT diam 1.70 cm MV E/A ratio 0.87 LV EF 73 % LVIDd 4.10 cm RVSP 33.0 mmHg Aortic Valve Area by Continuity of VTI 1.45 cm2 Aortic Valve Area by Continuity of Peak Velocity 1.33 cm2 AV pk grad 18.1 mmHg LV A4C EF 59.6 Renal Function Panel Result Value Ref Range Glucose 129 (H) 74 - 99 mg/dL Sodium 132 (L) 136 - 145 mmol/L Potassium 4.5 3.5 - 5.3 mmol/L Chloride 93 (L) 98 - 107 mmol/L Bicarbonate 31 21 - 32 mmol/L Anion Gap 13 10 - 20 mmol/L Urea Nitrogen 19 6 - 23 mg/dL Creatinine 0.63 0.50 - 1.05 mg/dL eGFR >90 >60 mL/min/1.73m*2 Calcium 9.0 8.6 - 10.6 mg/dL Phosphorus 4.9 2.5 - 4.9 mg/dL Albumin 4.0 3.4 - 5.0 g/dL POCT GLUCOSE Result Value Ref Range POCT Glucose 126 (H) 74 - 99 mg/dL POCT GLUCOSE Result Value Ref Range POCT Glucose 134 (H) 74 - 99 mg/dL POCT GLUCOSE Result Value Ref Range POCT Glucose 121 (H) 74 - 99 mg/dL POCT GLUCOSE Result Value Ref Range POCT Glucose 147 (H) 74 - 99 mg/dL TRANSTHORACIC ECHOCARDIOGRAM REPORT 08/07/24 IMAGING/ DIAGNOSTIC TESTING: PHYSICIAN INTERPRETATION: Left Ventricle: Left ventricular ejection fraction is normal, by visual estimate at 70-75%. There are no regional left ventricular wall motion abnormalities. The left ventricular cavity size is normal. Abnormal (paradoxical) septal motion consistent with post-operative status. Spectral Doppler shows a pseudonormal pattern of left ventricular diastolic filling. There are elevated left atrial and left ventricular end diastolic pressures. There are intracavitary gradients due to hyperdynamic LV. Left Atrium: The left atrium is mild to moderately dilated. Right Ventricle: The right ventricle is normal in size. Unable to determine right ventricular systolic function. Right Atrium: The right atrium was not well visualized. Aortic Valve: There is a prosthetic aortic valve present. The aortic valve dimensionless index is 0.64. There is a bioprosthetic aortic valve. There is no evidence of aortic valve regurgitation. The peak instantaneous gradient of the aortic valve is 18.1 mmHg. The mean gradient of the aortic valve is 9.0 mmHg. Normal gradients for a prosthetic aortic valve. Mitral Valve: The mitral valve is normal in structure. There is mild mitral annular calcification. There is trace mitral valve regurgitation. Tricuspid Valve: The tricuspid valve is structurally normal. There is trace tricuspid regurgitation. Pulmonic Valve: The pulmonic valve is structurally normal. There is physiologic pulmonic valve regurgitation. Pericardium: Trivial pericardial effusion. Aorta: The aortic root is normal. In comparison to the previous echocardiogram(s): Compared with study dated 08/01/2024, no significant change. CONCLUSIONS: 1. Poorly visualized anatomical structures due to suboptimal image quality. 2. Left ventricular ejection fraction is normal, by visual estimate at 70-75%. 3. Spectral Doppler shows a pseudonormal pattern of left ventricular diastolic filling. 4. There are elevated left atrial and left ventricular end diastolic pressures. 5. Abnormal septal motion consistent with post-operative status. 6. There are intracavitary gradients due to hyperdynamic LV. 7. Unable to determine right ventricular systolic function. 8. The left atrium is mild to moderately dilated. 9. Normal gradients for a prosthetic aortic valve. 10. There is a bioprosthetic aortic valve. 11. Compared with study dated 08/01/2024, no significant change. I have personally reviewed the following test result(s): XR chest 2 views 08/06/2024 Impression 1. Qsjrm-kufvtty-fbyc-left basilar opacities which most likely represent atelectasis. 2. Small right and probable trace left pleural effusions. No pneumothorax. 3. Medical devices as above. IMPRESSION & PLAN: POD # 6 s/p Redo sternotomy, CABG x 2 (SVG-PDA and SVG-SVG previous graft), AVR, Ascending aorta and adryan arch replacement 08/[address] Lozano - Increase activity/ ambulation; PT/OT - Encourage IS, C/DB; respiratory therapy; wean O2 as brittany - Cardiac rehab referral - Continue cardiac meds: ASA, BB, statin - Pain and anticonstipation meds - 2v CXR 08/06 - Postop echo completed 08/07 - Remove epicardial wires prior to discharge - Tele until discharge - Optimize nutrition and electrolytes Rhythm: home sotalol 120 mg BID AICD/PPM. Hcx of ventricular tachycardia and persistent AFIB - Tele: SR 70s-80s - Continue BB - PPM DDDr 60-120; device interrogated on on 08/04 back on Home setting - Adjust medications as tolerated - holdng home sotalol Acute Blood Loss Anemia Recent Labs 08/07/24 0656 08/06/24 0744 08/05/24 0628 08/04/24 0238 08/03/24 1500 08/03/24 0258 08/02/24 1221 HGB 9.4* 9.7* 9.5* 9.1* 10.1* 9.0* 10.6* HCT 28.0* 30.4* 29.8* 26.9* 30.9* 25.5* 30.7* - MV, PO Iron x1mo - Daily labs, transfuse as indicated Thrombocytopenia- improving Recent Labs 08/07/24 0656 08/06/24 0744 08/05/24 0628 08/04/24 0238 08/03/24 1500 08/03/24 0258 08/02/24 1221 PLT 93* 81* 66* 52* 58* 44* 62* - Etiology likely postop/CPB related - Continue to trend with daily CBCs Volume/Electrolyte Status: Preop wt Weight: 65.1 kg (143 lb 8.3 oz) Chronic diastolic heart failurewith EF 70 % , HOCM Vitals: 08/08/24 0503 Weight: 63.4 kg (139 lb 11.2 oz) - Weight: 63.4, 64, 64.5, 64.5 kg - Adjust diuresis as needed for postop cardiac surgery hypervolemia - Replete electrolytes for hypokalemia/hypomagnesemia/hypophosphatemia as needed K replaced - Daily weights and strict I&Os - Daily RFP while admitted Leukocytosis Recent Labs 08/07/24 0656 08/06/24 0744 08/05/24 0628 08/04/24 0238 08/03/24 1500 08/03/24 0258 08/02/24 1221 WBC 6.1 5.6 5.8 8.5 12.1* 10.6 18.5* Temp (36hrs), Av.5 C (97.7 F), Min:36.1 C (97 F), Max:36.9 C (98.4 F) - aggressive pulmonary hygiene - monitor for s/s infection - likely atelectasis/ postoperative in etiology - daily CBC to follow Post op dysphagia - Speech consulted - dobhoff placed in ICU - NPO, Continue TF as tolerated - 7-10 ice chips/hr. allowed after oral care for safe swallow stimulation, pleasure and to reduce build-up of colonized bacteria within the oropharynx. 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 ( wears glasses); Bilateral carotid stenosis - Serial neuro and pain assessments - continue ASA Hypertension: home meds norvasc 10mg daily, lisinopril 40mg daily Systolic (24hrs), Av , Min:128 , Max:137 - continue BB - resumed low dose lisinopril 08/05 Hyperlipidemia: home rosuvastatin 20mg daily No results found for: CHOL, HDL, VLDL, TRIG, NHDL -continue statin -follow up lipid panel with PCP/ cardio as appropriate GERD: home pantoprazole 40mg daily - Cont PPI - Avoid taking pills on an empty stomach - Eat small frequent meals - eat sitting up in the chair - avoid acidic foods Anxiety/Depression: home sertraline 100mg daily, trazodone 100mg at bedtime for sleep, olanzapine 2.5 mg daily at bedtime - continue home medications - offer support - sleep/ wake cycle hygiene - control pain with PRN meds - Continue home sertraline 100 mg daily - Hold home olanzapine, trazodone, OA - PT/OT - Hot and cold packs - Acetaminophen - No NSAIDs for 3 months after cardiac surgery; if NSAIDs needed after 3 months, clear use with court bailiff before starting OAR[place] reviewed on 08/07/2024 Recent scripts: 05/17/24, Medication: Oxycodone-Acetaminophen 5-325 , Qty: 20, Days supply: 7, prescribed by Amber MURILLO 05/13/24, Medication: Oxycodone-Acetaminophen 5-325 , Qty: 9, Days supply: 30, prescribed by [facility] 04/30/24, Medication: Oxycodone-Acetaminophen 5-325 , Qty: 10, Days supply: 4, prescribed by Jesus Luu VTE Prophylaxis: SCDs/TEDs, ambulation, SQ heparin Code Status: Full Code Dispo - PT/OT recs Home - Would benefit from homecare RN for cardiac surgery carepath - Anticipate discharge. 08/09. - Will continue to assess discharge needs WILEY Cyr Cardiac Surgery [facility] Team 08/08/2024 8:27 AM * Rosa Rey RN - 08/07/2024 1:20 PM EDT 08/07/24 1320 Discharge Planning Expected Discharge Disposition Home H ([facility]) Does the patient need discharge transport arranged? No Met with patient and introduced myself as Volcanologist and member of the discharge planning team. Pt is s/p redo AVR and redo CABG x2. She plans to return home at time of discharge with 3 friends. She prefers to use [facility]. Pending swallow eval tomorrow. outpatient coordinator will continue to follow for home going needs. 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 She presents s/p redo sternotomy, CABG x 2 (SVG-PDA and SVG-SVG previous graft), AVR bioprosthetic and ascending Aorta/Adryan- Arch w/ Dr. Lozano on 08/01. 08/01/2024 OPERATION: by Ruel Lozano REDO Replacement Aortic Valve w/21mm Avalus Ultra, REDO Cabg x 2 w/Right Saphenous Vein, Open Saphenous Vein [place], SVG - PDA, SVG to left sided SVG, REDO Median Sternotomy, Right Femoral Arterial and Venous Exploration Replacement of Ascending Aorta w/28mm x 8mm Ante-Roberto Gelweave, Hypothermic Circulatory Arrest, Retrograde Cereberal Perfusion Echo Pre/Post: normal BIV, moderate LVH Chest Tubes/Drains: RPL, LPL, MS Temporary wires location/setting: V wires CTICU course: uneventful Transferred to the floor 08/04 Interval History: No issues overnight SUBJECTIVE: Asking about when dobhoff can be removed Objective BP 131/64 (BP Location: Right arm, Patient Position: Sitting) Pulse 95 Temp 36.6 C (97.9 F) (Temporal) Resp 18 Ht 1.524 m (5') Wt 64 kg (141 lb) LMP (LMP Unknown) SpO2 94% BMI 27.54 kg/m 0-10 (Numeric) Pain Score: 8 3 Day Weight Change: Unable to Calculate Intake and Output Intake/Output Summary (Last 24 hours) at 08/07/2024 1255 Last data filed at 08/07/2024 0601 Gross per 24 hour Intake 1150 ml Output 0 ml Net 1150 ml Physical Exam Physical Exam Vitals and nursing note reviewed. Constitutional: Comments: Awake no distress, alert and cooperative. Laying in bed HENT: Head: Comments: no apparent injury, no lesions seen Mouth/Throat: Mouth: Mucous membranes are dry. Eyes: Conjunctiva/sclera: Conjunctivae normal. Neck: Comments: trachea midline Cardiovascular: Rate and Rhythm: Normal rate and regular rhythm. Pulses: Normal pulses. Comments: NSR Rate 70 AV pacer wires capped Pulmonary: Effort: Pulmonary effort is normal. Comments: diminished breath sounds bilaterally on the bases Oxygen On 2 LNC Sternum stable Abdominal: General: Bowel sounds are normal. Palpations: Abdomen is soft. Comments: + postop BM Genitourinary: Comments: Voids independently Musculoskeletal: General: Normal range of motion. Cervical back: Neck supple. Comments: GARCÍA, deconditioning Skin: General: Skin is warm and dry. Capillary Refill: Capillary refill takes less than 2 seconds. Comments: Midsternal, GALE, well approx. w/ derma miller, NO s/s infection erythema, oozing or hematoma Neurological: General: No focal deficit present. Mental Status: She is alert and oriented to person, place, and time. Psychiatric: Mood and Affect: Mood normal. Behavior: Behavior normal. Medications Scheduled medications acetaminophen, 650 mg, oral, q6h aspirin, 81 mg, oral, Daily atorvastatin, 80 mg, oral, Nightly heparin (porcine), 5,000 Units, subcutaneous, q8h insulin lispro, 0-10 Units, subcutaneous, TID lidocaine, 2 patch, transdermal, Daily lisinopril, 2.5 mg, oral, Daily melatonin, 10 mg, oral, Nightly metoprolol tartrate, 50 mg, oral, BID pantoprazole, 40 mg, oral, Daily before breakfast polyethylene glycol, 17 g, oral, BID sennosides-docusate sodium, 2 tablet, oral, BID sertraline, 100 mg, oral, Daily Continuous medications PRN medications PRN medications: dextrose, dextrose, glucagon, glucagon, naloxone, [DISCONTINUED] ondansetron OR ondansetron, oxyCODONE, oxygen Labs Results for orders placed or performed during the hospital encounter of 08/01/24 (from the past 24 hours) POCT GLUCOSE Result Value Ref Range POCT Glucose 127 (H) 74 - 99 mg/dL POCT GLUCOSE Result Value Ref Range POCT Glucose 123 (H) 74 - 99 mg/dL Magnesium Result Value Ref Range Magnesium 2.04 1.60 - 2.40 mg/dL CBC Result Value Ref Range WBC 6.1 4.4 - 11.3 x10*3/uL nRBC 0.0 0.0 - 0.0 /100 WBCs RBC 3.03 (L) 4.00 - 5.20 x10*6/uL Hemoglobin 9.4 (L) 12.0 - 16.0 g/dL Hematocrit 28.0 (L) 36.0 - 46.0 % MCV 92 80 - 100 fL MCH 31.0 26.0 - 34.0 pg MCHC 33.6 32.0 - 36.0 g/dL RDW 13.7 11.5 - 14.5 % Platelets 93 (L) 150 - 450 x10*3/uL Renal Function Panel Result Value Ref Range Glucose 127 (H) 74 - 99 mg/dL Sodium 134 (L) 136 - 145 mmol/L Potassium 5.8 (H) 3.5 - 5.3 mmol/L Chloride 95 (L) 98 - 107 mmol/L Bicarbonate 33 (H) 21 - 32 mmol/L Anion Gap 12 10 - 20 mmol/L Urea Nitrogen 20 6 - 23 mg/dL Creatinine 0.69 0.50 - 1.05 mg/dL eGFR >90 >60 mL/min/1.73m*2 Calcium 9.0 8.6 - 10.6 mg/dL Phosphorus 5.4 (H) 2.5 - 4.9 mg/dL Albumin 3.8 3.4 - 5.0 g/dL POCT GLUCOSE Result Value Ref Range POCT Glucose 123 (H) 74 - 99 mg/dL POCT GLUCOSE Result Value Ref Range POCT Glucose 124 (H) 74 - 99 mg/dL IMAGING/ DIAGNOSTIC TESTING: I have personally reviewed the following test result(s): XR chest 2 views 08/06/2024 Impression 1. Odyav-ntzekyl-feem-left basilar opacities which most likely represent atelectasis. 2. Small right and probable trace left pleural effusions. No pneumothorax. 3. Medical devices as above. IMPRESSION & PLAN: POD # 6 s/p Redo sternotomy, CABG x 2 (SVG-PDA and SVG-SVG previous graft), AVR, Ascending aorta and adryan arch replacement 08/[address] Lozano - Increase activity/ ambulation; PT/OT - Encourage IS, C/DB; respiratory therapy; wean O2 as brittany - Cardiac rehab referral - Continue cardiac meds: ASA, BB, statin - Pain and anticonstipation meds - 2v CXR 08/06 - Postop echo ordered and pending - Remove epicardial wires prior to discharge - Tele until discharge - Optimize nutrition and electrolytes Rhythm: home sotalol 120 mg BID AICD/PPM. Hcx of ventricular tachycardia and persistent AFIB - Tele: SR 70s-80s - Continue BB - PPM DDDr 60-120; device requested interrogation on 08/05 to confirm back to home setting prior todischarge - Adjust medications as tolerated - holdng home sotalol Acute Blood Loss Anemia Recent Labs 08/07/24 0656 08/06/24 0744 08/05/24 0628 08/04/24 0238 08/03/24 1500 08/03/24 0258 08/02/24 1221 HGB 9.4* 9.7* 9.5* 9.1* 10.1* 9.0* 10.6* HCT 28.0* 30.4* 29.8* 26.9* 30.9* 25.5* 30.7* - MV, PO Iron x1mo - Daily labs, transfuse as indicated Thrombocytopenia- improving Recent Labs 08/07/24 0656 08/06/24 0744 08/05/24 0628 08/04/24 0238 08/03/24 1500 08/03/24 0258 08/02/24 1221 PLT 93* 81* 66* 52* 58* 44* 62* - Etiology likely postop/CPB related - Continue to trend with daily CBCs Volume/Electrolyte Status: Preop wt Weight: 65.1 kg (143 lb 8.3 oz) Chronic diastolic heart failurewith EF 70 % , HOCM Vitals: 08/07/24 0201 Weight: 64 kg (141 lb) - Weight: 64, 64.5, 64.5 kg - Adjust diuresis as needed for postop cardiac surgery hypervolemia - Replete electrolytes for hypokalemia/hypomagnesemia/hypophosphatemia as needed K replaced - Daily weights and strict I&Os - Daily RFP while admitted Leukocytosis Recent Labs 08/07/24 0656 08/06/24 0744 08/05/24 0628 08/04/24 0238 08/03/24 1500 08/03/24 0258 08/02/24 1221 WBC 6.1 5.6 5.8 8.5 12.1* 10.6 18.5* Temp (36hrs), Av.2 C (97.2 F), Min:35.9 C (96.6 F), Max:36.6 C (97.9 F) - aggressive pulmonary hygiene - monitor for s/s infection - likely atelectasis/ postoperative in etiology - daily CBC to follow Post op dysphagia - Speech consulted - dobhoff placed in ICU - NPO, Continue TF as tolerated - 7-10 ice chips/hr. allowed after oral care for safe swallow stimulation, pleasure and to reduce build-up of colonized bacteria within the oropharynx. - SSI every 6 hrs for TF Hx breast cancer s/p 3cycles of gem/carbo with clinical response 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 ( wears glasses); Bilateral carotid stenosis - Serial neuro and pain assessments - continue ASA Hypertension: home meds norvasc 10mg daily, lisinopril 40mg daily Systolic (24hrs), Av , Min:131 , Max:155 - continue BB - resumed low dose lisinopril 08/05 Hyperlipidemia: home rosuvastatin 20mg daily No results found for: CHOL, HDL, VLDL, TRIG, NHDL -continue statin -follow up lipid panel with PCP/ cardio as appropriate GERD: home pantoprazole 40mg daily - Cont PPI - Avoid taking pills on an empty stomach - Eat small frequent meals - eat sitting up in the chair - avoid acidic foods Anxiety/Depression: home sertraline 100mg daily, trazodone 100mg at bedtime for sleep, olanzapine 2.5 mg daily at bedtime - continue home medications - offer support - sleep/ wake cycle hygiene - control pain with PRN meds - Continue home sertraline 100 mg daily - Hold home olanzapine, trazodone, OA - PT/OT - Hot and cold packs - Acetaminophen - No NSAIDs for 3 months after cardiac surgery; if NSAIDs needed after 3 months, clear use with court bailiff before starting OAR[place] reviewed on 08/07/2024 Recent scripts: 05/17/24, Medication: Oxycodone-Acetaminophen 5-325 , Qty: 20, Days supply: 7, prescribed by Amber MURILLO 05/13/24, Medication: Oxycodone-Acetaminophen 5-325 , Qty: 9, Days supply: 30, prescribed by [facility] 04/30/24, Medication: Oxycodone-Acetaminophen 5-325 , Qty: 10, Days supply: 4, prescribed by Jesus Luu VTE Prophylaxis: SCDs/TEDs, ambulation, SQ heparin Code Status: Full Code Dispo - PT/OT recs Home - Would benefit from homecare RN for cardiac surgery carepath - Anticipate discharge mid to end of week pending [employer] evaluation/ dobhoff plan, weaning O2, postop imaging, device check - Will continue to assess discharge needs WILEY Reynolds Cardiac Surgery 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 She presents s/p redo sternotomy, CABG x 2 (SVG-PDA and SVG-SVG previous graft), AVR bioprosthetic and ascending Aorta/Adryan- Arch w/ Dr. Lozano on 08/01. 08/01/2024 OPERATION: by Ruel Lozano REDO Replacement Aortic Valve w/21mm Avalus Ultra, REDO Cabg x 2 w/Right Saphenous Vein, Open Saphenous Vein [place], SVG - PDA, SVG to left sided SVG, REDO Median Sternotomy, Right Femoral Arterial and Venous Exploration Replacement of Ascending Aorta w/28mm x 8mm Ante-Roberto Gelweave, Hypothermic Circulatory Arrest, Retrograde Cereberal Perfusion Echo Pre/Post: normal BIV, moderate LVH Chest Tubes/Drains: RPL, LPL, MS Temporary wires location/setting: V wires CTICU course: uneventful Transferred to the floor 08/04 Interval History: No issues overnight SUBJECTIVE: Pain , feeling tired Objective BP 152/70 (BP Location: Left arm, Patient Position: Lying) Pulse 76 Temp 36.2 C (97.2 F) (Temporal) Resp 17 Ht 1.524 m (5') Wt 64.5 kg (142 lb 4.8 oz) LMP (LMP Unknown) SpO2 97% BMI 27.79 kg/m 0-10 (Numeric) Pain Score: 8 3 Day Weight Change: Unable to Calculate Intake and Output Intake/Output Summary (Last 24 hours) at 08/06/2024 1418 Last data filed at 08/05/2024 2100 Gross per 24 hour Intake 520 ml Output -- Net 520 ml Physical Exam Physical Exam Vitals and nursing note reviewed. Constitutional: Appearance: Normal appearance. Comments: Awake no distress, alert and cooperative. Laying in bed HENT: Head: Normocephalic and atraumatic. Comments: no apparent injury, no lesions seen Eyes: Conjunctiva/sclera: Conjunctivae normal. Neck: Comments: trachea midline Cardiovascular: Rate and Rhythm: Normal rate and regular rhythm. Pulses: Normal pulses. Heart sounds: Normal heart sounds. Comments: NSR Rate 70 AV pacer wires capped Pulmonary: Effort: Pulmonary effort is normal. Comments: diminished breath sounds bilaterally on the bases Oxygen On 2 LNC Sternum stable Abdominal: General: Bowel sounds are normal. Palpations: Abdomen is soft. Comments: Hypoactive BS, +BM Genitourinary: Comments: Voids independently Musculoskeletal: General: Normal range of motion. Cervical back: Neck supple. Comments: GARCÍA, deconditioning Skin: General: Skin is warm and dry. Capillary Refill: Capillary refill takes less than 2 seconds. Comments: Midsternal, GALE, well approx. w/ derma miller, NO s/s infection erythema, oozing or hematoma Neurological: General: No focal deficit present. Mental Status: She is alert and oriented to person, place, and time. Psychiatric: Mood and Affect: Mood normal. Behavior: Behavior normal. Medications Scheduled medications acetaminophen, 650 mg, oral, q6h aspirin, 81 mg, oral, Daily atorvastatin, 80 mg, oral, Nightly heparin (porcine), 5,000 Units, subcutaneous, q8h insulin lispro, 0-10 Units, subcutaneous, TID lidocaine, 2 patch, transdermal, Daily lisinopril, 2.5 mg, oral, Daily melatonin, 10 mg, oral, Nightly metoprolol tartrate, 50 mg, oral, BID pantoprazole, 40 mg, oral, Daily before breakfast polyethylene glycol, 17 g, oral, BID sennosides-docusate sodium, 2 tablet, oral, BID sertraline, 100 mg, oral, Daily Continuous medications PRN medications PRN medications: dextrose, dextrose, glucagon, glucagon, naloxone, [DISCONTINUED] ondansetron OR ondansetron, oxyCODONE, oxygen Labs Results for orders placed or performed during the hospital encounter of 08/01/24 (from the past 24 hours) POCT GLUCOSE Result Value Ref Range POCT Glucose 128 (H) 74 - 99 mg/dL POCT GLUCOSE Result Value Ref Range POCT Glucose 98 74 - 99 mg/dL Magnesium Result Value Ref Range Magnesium 2.08 1.60 - 2.40 mg/dL CBC Result Value Ref Range WBC 5.6 4.4 - 11.3 x10*3/uL nRBC 0.0 0.0 - 0.0 /100 WBCs RBC 3.04 (L) 4.00 - 5.20 x10*6/uL Hemoglobin 9.7 (L) 12.0 - 16.0 g/dL Hematocrit 30.4 (L) 36.0 - 46.0 % MCV 100 80 - 100 fL MCH 31.9 26.0 - 34.0 pg MCHC 31.9 (L) 32.0 - 36.0 g/dL RDW 14.3 11.5 - 14.5 % Platelets 81 (L) 150 - 450 x10*3/uL Renal Function Panel Result Value Ref Range Glucose 96 74 - 99 mg/dL Sodium 136 136 - 145 mmol/L Potassium 5.1 3.5 - 5.3 mmol/L Chloride 99 98 - 107 mmol/L Bicarbonate 31 21 - 32 mmol/L Anion Gap 11 10 - 20 mmol/L Urea Nitrogen 23 6 - 23 mg/dL Creatinine 0.69 0.50 - 1.05 mg/dL eGFR >90 >60 mL/min/1.73m*2 Calcium 8.8 8.6 - 10.6 mg/dL Phosphorus 4.2 2.5 - 4.9 mg/dL Albumin 3.8 3.4 - 5.0 g/dL POCT GLUCOSE Result Value Ref Range POCT Glucose 111 (H) 74 - 99 mg/dL POCT GLUCOSE Result Value Ref Range POCT Glucose 116 (H) 74 - 99 mg/dL IMAGING/ DIAGNOSTIC TESTING: I have personally reviewed the following test result(s): XR CHEST 1 VIEW; 08/05/2024 4:55 am FINDINGS: AP radiograph of the chest was provided. Left chest wall pacer/ICD device and lead tips are in similar position. Enteric tube tip projects over the proximal duodenum. Right chest wall medication port catheter tip projects over the right atrium. Status post median sternotomy with aortic valve replacement. Interval removal of the bilateral chest tubes and mediastinal drain. CARDIOMEDIASTINAL SILHOUETTE: Cardiomediastinal silhouette is stable in size and configuration. Prominent calcifications in the aortic arch. LUNGS: Low lung volumes with perihilar bronchovascular crowding and linear bibasilar opacities that are most consistent with atelectasis. Trace blunting of the right costophrenic angle. Left costophrenic angle is not well evaluated secondary to ICD device. No evidence of pneumothorax. ABDOMEN: No remarkable upper abdominal findings. BONES: No acute osseous changes. IMPRESSION: 1. Low lung volumes with bibasilar atelectasis and small right pleural effusion. No evidence of pneumothorax status post chest tube removal. 2. Additional medical devices as above. IMPRESSION & PLAN: POD # 5 s/p Redo sternotomy, CABG x 2 (SVG-PDA and SVG-SVG previous graft), AVR, Ascending aorta and adryan arch replacement 08/[address] Lozano - Increase activity/ ambulation; PT/OT - Encourage IS, C/DB; respiratory therapy; wean O2 as brittany - Cardiac rehab referral - Continue cardiac meds: ASA, BB, statin - Pain and anticonstipation meds - 2v CXR 08/06 - Postop echo ordered on 08/05 - CUT epicardial wires prior to discharge - Tele until discharge - Optimize nutrition and electrolytes Rhythm AICD/PPM. Hcx of ventricular tachycardia and persistent AFIB - Tele: NSR - Continue BB - PPM DDDr 60-120. ; device requested interrogation on 08/05 - Adjust medications as tolerated Acute Blood Loss Anemia Recent Labs 08/06/24 0744 08/05/24 0628 08/04/24 0238 08/03/24 1500 08/03/24 0258 08/02/24 1221 08/02/24 0004 HGB 9.7* 9.5* 9.1* 10.1* 9.0* 10.6* 11.3* HCT 30.4* 29.8* 26.9* 30.9* 25.5* 30.7* 30.6* - MV, PO Iron x1mo - Daily labs, transfuse as indicated Thrombocytopenia Recent Labs 08/06/24 0744 08/05/24 0628 08/04/24 0238 08/03/24 1500 08/03/24 0258 08/02/24 1221 08/02/24 0004 PLT 81* 66* 52* 58* 44* 62* 141* - Etiology likely postop/CPB related - Continue to trend with daily CBCs Volume/Electrolyte Status: Preop wt Weight: 65.1 kg (143 lb 8.3 oz) Acute on chronic diastolic heart failure with EF 70 % , HCOM -Follow up with HF team after discharge -consider evaluation for LifeVest Vitals: 08/06/24 0412 Weight: 64.5 kg (142 lb 4.8 oz) - Weight: 64.5, 64.5 kg - Adjust diuresis as needed for postop cardiac surgery hypervolemia - Replete electrolytes for hypokalemia/hypomagnesemia/hypophosphatemia as needed K replaced - Daily weights and strict I&Os - Daily RFP while admitted Leukocytosis Recent Labs 08/06/24 0744 08/05/24 0628 08/04/24 0238 08/03/24 1500 08/03/24 0258 08/02/24 1221 08/02/24 0004 WBC 5.6 5.8 8.5 12.1* 10.6 18.5* 14.7* Temp (36hrs), Av.9 C (96.7 F), Min:35.8 C (96.4 F), Max:36.2 C (97.2 F) - aggressive pulmonary hygiene - monitor for s/s infection - likely atelectasis/ postoperative in etiology - daily CBC to follow Post op dysphagia - Speech consulted - Copack in placed - NPO, Continue to advance TFs as tolerated -5-7 ice chips/hr allowed after oral care for safe swallow stimulation, pleasure and to reduce build-up of colonized bacteria within the oropharynx - SSI every 6 hrs for TF Breats cancer s/p 3cycles of gem/carbo with clinical response 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 ( wears glasses) Bilateral carotid stenosis - Serial neuro and pain assessments - continue ASA Hypertension Systolic (24hrs), Av , Min:120 , Max:152 - continue BB -Consider ACEis/ ARBS once bp stable Hyperlipidemia: No results found for: CHOL, HDL, VLDL, TRIG, NHDL -continue statin -follow up lipid panel with PCP/ cardio as appropriate GERD - Cont PPI - Avoid taking pills on an empty stomach - Eat small frequent meals - eat sitting up in the chair - avoid acidic foods Anxiety/Depression - continue home medications - offer support - sleep/ wake cycle hygiene - control pain with PRN meds - Continue home sertraline 100 mg daily - Hold home olanzapine, trazodone, OA - PT/OT - Hot and cold packs - Acetaminophen - No NSAIDs for 3 months after cardiac surgery; if NSAIDs needed after 3 months, clear use with court bailiff before starting OARRS reviewed on 05/17/2024 Rx summary: 0 narcotics, 0 buprenorphine, 0 sedatives, 0 stimulants Recent scripts: Date: 05/17/24, Medication: Oxycodone-Acetaminophen 5-325 , Qty: 20, Days supply: 7, prescribed by Marcelo Davey MD VTE Prophylaxis: SCDs/TEDs, ambulation, SQ heparin Code Status: Full Code Dispo - PT/OT recs Home - Would benefit from homecare RN for cardiac surgery carepath - Anticipate discharge Not ready - Will continue to assess discharge needs WILEY Cyr Cardiac Surgery 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 She presents s/p redo sternotomy, CABG x 2 (SVG-PDA and SVG-SVG previous graft), AVR bioprosthetic and ascending Aorta/Adryan- Arch w/ Dr. Lozano on 08/01. 08/03/2024 OPERATION: by Ruel Lozano REDO Replacement Aortic Valve w/21mm Avalus Ultra, REDO Cabg x 2 w/Right Saphenous Vein, Open Saphenous Vein [place], SVG - PDA, SVG to left sided SVG, REDO Median Sternotomy, Right Femoral Arterial and Venous Exploration Replacement of Ascending Aorta w/28mm x 8mm Ante-Roberto Gelweave, Hypothermic Circulatory Arrest, Retrograde Cereberal Perfusion Echo Pre/Post: normal BIV, moderate LVH Chest Tubes/Drains: RPL, LPL, MS Temporary wires location/setting: V wires CTICU course: uneventful Transferred to the floor 08/04 Interval History: No issues overnight SUBJECTIVE: Pain , feeling tired Objective BP 138/62 (BP Location: Right arm, Patient Position: Lying) Pulse 85 Temp 36.2 C (97.2 F) (Temporal) Resp 19 Ht 1.524 m (5') Wt 64.5 kg (142 lb 4.8 oz) LMP (LMP Unknown) SpO2 96% BMI 27.79 kg/m 0-10 (Numeric) Pain Score: 2 3 Day Weight Change: Unable to Calculate Intake and Output Intake/Output Summary (Last 24 hours) at 08/05/2024 0831 Last data filed at 08/04/2024 2100 Gross per 24 hour Intake 280 ml Output 860 ml Net -580 ml Physical Exam Physical Exam Vitals and nursing note reviewed. Constitutional: Appearance: Normal appearance. Comments: Awake no distress, alert and cooperative. Laying in bed HENT: Head: Normocephalic and atraumatic. Comments: no apparent injury, no lesions seen Eyes: Conjunctiva/sclera: Conjunctivae normal. Neck: Comments: trachea midline Cardiovascular: Rate and Rhythm: Normal rate and regular rhythm. Pulses: Normal pulses. Heart sounds: Normal heart sounds. Comments: NSR Rate 70 AV pacer wires capped Pulmonary: Effort: Pulmonary effort is normal. Comments: diminished breath sounds bilaterally on the bases Oxygen On 2 LNC Sternum stable Abdominal: General: Bowel sounds are normal. Palpations: Abdomen is soft. Comments: Hypoactive BS, +BM Genitourinary: Comments: Voids independently Musculoskeletal: General: Normal range of motion. Cervical back: Neck supple. Comments: GARCÍA, deconditioning Skin: General: Skin is warm and dry. Capillary Refill: Capillary refill takes less than 2 seconds. Comments: Midsternal, CAPTAIN/AIRLINE PILOT, well approx. w/ derma miller, NO s/s infection erythema, oozing or hematoma Neurological: General: No focal deficit present. Mental Status: She is alert and oriented to person, place, and time. Psychiatric: Mood and Affect: Mood normal. Behavior: Behavior normal. Medications Scheduled medications acetaminophen, 650 mg, oral, q6h aspirin, 81 mg, oral, Daily atorvastatin, 80 mg, oral, Nightly heparin (porcine), 5,000 Units, subcutaneous, q8h insulin lispro, 0-5 Units, subcutaneous, q6h lidocaine, 1 patch, transdermal, Daily melatonin, 10 mg, oral, Nightly metoprolol tartrate, 25 mg, oral, BID pantoprazole, 40 mg, oral, Daily before breakfast polyethylene glycol, 17 g, oral, BID sennosides-docusate sodium, 2 tablet, oral, BID sertraline, 100 mg, oral, Daily Continuous medications PRN medications PRN medications: dextrose OR glucagon, hydrALAZINE, [Held by provider] HYDROmorphone, naloxone,[DISCONTINUED] ondansetron OR ondansetron, oxyCODONE, oxygen Labs Results for orders placed or performed during the hospital encounter of 08/01/24 (from the past 24 hours) Type and screen Result Value Ref Range ABO TYPE B Rh TYPE POS ANTIBODY SCREEN NEG POCT GLUCOSE Result Value Ref Range POCT Glucose 111 (H) 74 - 99 mg/dL POCT GLUCOSE Result Value Ref Range POCT Glucose 115 (H) 74 - 99 mg/dL POCT GLUCOSE Result Value Ref Range POCT Glucose 127 (H) 74 - 99 mg/dL POCT GLUCOSE Result Value Ref Range POCT Glucose 145 (H) 74 - 99 mg/dL Magnesium Result Value Ref Range Magnesium 2.02 1.60 - 2.40 mg/dL CBC Result Value Ref Range WBC 5.8 4.4 - 11.3 x10*3/uL nRBC 0.0 0.0 - 0.0 /100 WBCs RBC 3.07 (L) 4.00 - 5.20 x10*6/uL Hemoglobin 9.5 (L) 12.0 - 16.0 g/dL Hematocrit 29.8 (L) 36.0 - 46.0 % MCV 97 80 - 100 fL MCH 30.9 26.0 - 34.0 pg MCHC 31.9 (L) 32.0 - 36.0 g/dL RDW 14.7 (H) 11.5 - 14.5 % Platelets 66 (L) 150 - 450 x10*3/uL Renal Function Panel Result Value Ref Range Glucose 145 (H) 74 - 99 mg/dL Sodium 139 136 - 145 mmol/L Potassium 3.5 3.5 - 5.3 mmol/L Chloride 97 (L) 98 - 107 mmol/L Bicarbonate 31 21 - 32 mmol/L Anion Gap 15 10 - 20 mmol/L Urea Nitrogen 26 (H) 6 - 23 mg/dL Creatinine 0.63 0.50 - 1.05 mg/dL eGFR >90 >60 mL/min/1.73m*2 Calcium 8.6 8.6 - 10.6 mg/dL Phosphorus 3.4 2.5 - 4.9 mg/dL Albumin 3.4 3.4 - 5.0 g/dL IMAGING/ DIAGNOSTIC TESTING: I have personally reviewed the following test result(s): XR CHEST 1 VIEW; 08/05/2024 4:55 am FINDINGS: AP radiograph of the chest was provided. Left chest wall pacer/ICD device and lead tips are in similar position. Enteric tube tip projects over the proximal duodenum. Right chest wall medication port catheter tip projects over the right atrium. Status post median sternotomy with aortic valve replacement. Interval removal of the bilateral chest tubes and mediastinal drain. CARDIOMEDIASTINAL SILHOUETTE: Cardiomediastinal silhouette is stable in size and configuration. Prominent calcifications in the aortic arch. LUNGS: Low lung volumes with perihilar bronchovascular crowding and linear bibasilar opacities that are most consistent with atelectasis. Trace blunting of the right costophrenic angle. Left costophrenic angle is not well evaluated secondary to ICD device. No evidence of pneumothorax. ABDOMEN: No remarkable upper abdominal findings. BONES: No acute osseous changes. IMPRESSION: 1. Low lung volumes with bibasilar atelectasis and small right pleural effusion. No evidence of pneumothorax status post chest tube removal. 2. Additional medical devices as above. IMPRESSION & PLAN: POD # 2 s/p Redo sternotomy, CABG x 2 (SVG-PDA and SVG-SVG previous graft), AVR, Ascending aorta and adryan arch replacement 08/[address] Lozano - Increase activity/ ambulation; PT/OT - Encourage IS, C/DB; respiratory therapy; wean O2 as brittany - Cardiac rehab referral - Continue cardiac meds: ASA, BB, statin - Pain and anticonstipation meds - 2v CXR 08/06 - Postop echo ordered on 08/05 - CUT epicardial wires prior to discharge - Tele until discharge - Optimize nutrition and electrolytes Rhythm AICD/PPM. Hcx of ventricular tachycardia and persistent AFIB - Tele: NSR - Continue BB - PPM DDDr 60-120. ; device requested interrogation on 08/05 - Adjust medications as tolerated Acute Blood Loss Anemia Recent Labs 08/05/24 0628 08/04/24 0238 08/03/24 1500 08/03/24 0258 08/02/24 1221 08/02/24 0004 08/01/24 1452 HGB 9.5* 9.1* 10.1* 9.0* 10.6* 11.3* 11.9* HCT 29.8* 26.9* 30.9* 25.5* 30.7* 30.6* 33.3* - MV, PO Iron x1mo - Daily labs, transfuse as indicated Thrombocytopenia Recent Labs 08/05/2462708/04/24 0238 08/03/24 1500 08/03/24 0258 08/02/24 1221 08/02/24 0004 08/01/24 1452 PLT 66* 52* 58* 44* 62* 141* 51* - Etiology likely postop/CPB related - Continue to trend with daily CBCs Volume/Electrolyte Status: Preop wt Weight: 65.1 kg (143 lb 8.3 oz) Acute on chronic diastolic heart failure with EF 70 % , HCOM -Follow up with HF team after discharge -consider evaluation for LifeVest Vitals: 08/05/24 0317 Weight: 64.5 kg (142 lb 4.8 oz) - Weight: 64.5 kg - Adjust diuresis as needed for postop cardiac surgery hypervolemia - Replete electrolytes for hypokalemia/hypomagnesemia/hypophosphatemia as needed K replaced - Daily weights and strict I&Os - Daily RFP while admitted Leukocytosis Recent Labs 08/05/24 0628 08/04/24 0238 08/03/24 1500 08/03/24 0258 08/02/24 1221 08/02/24 0004 08/01/24 1452 WBC 5.8 8.5 12.1* 10.6 18.5* 14.7* 12.7* Temp (36hrs), Av.3 C (97.4 F), Min:36 C (96.8 F), Max:36.8 C (98.2 F) - aggressive pulmonary hygiene - monitor for s/s infection - likely atelectasis/ postoperative in etiology - daily CBC to follow Post op dysphagia - Speech consulted - Copack in placed - NPO, Continue to advance TFs as tolerated -5-7 ice chips/hr allowed after oral care for safe swallow stimulation, pleasure and to reduce build-up of colonized bacteria within the oropharynx - SSI every 6 hrs for TF Breats cancer s/p 3cycles of gem/carbo with clinical response 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 ( wears glasses) Bilateral carotid stenosis - Serial neuro and pain assessments - continue ASA Hypertension Systolic (24hrs), Av , Min:100 , Max:145 - continue BB -Consider ACEis/ ARBS once bp stable Hyperlipidemia: No results found for: CHOL, HDL, VLDL, TRIG, NHDL -continue statin -follow up lipid panel with PCP/ cardio as appropriate GERD - Cont PPI - Avoid taking pills on an empty stomach - Eat small frequent meals - eat sitting up in the chair - avoid acidic foods Anxiety/Depression - continue home medications - offer support - sleep/ wake cycle hygiene - control pain with PRN meds - Continue home sertraline 100 mg daily - Hold home olanzapine, trazodone, OA - PT/OT - Hot and cold packs - Acetaminophen - No NSAIDs for 3 months after cardiac surgery; if NSAIDs needed after 3 months, clear use with court bailiff before starting OARRS reviewed on 05/17/2024 Rx summary: 0 narcotics, 0 buprenorphine, 0 sedatives, 0 stimulants Recent scripts: Date: 05/17/24, Medication: Oxycodone-Acetaminophen 5-325 , Qty: 20, Days supply: 7, prescribed by Marcelo Davey MD VTE Prophylaxis: SCDs/TEDs, ambulation, SQ heparin Code Status: Full Code Dispo - PT/OT recs Home - Would benefit from homecare RN for cardiac surgery carepath - Anticipate discharge Not ready - Will continue to assess discharge needs WILEY Cyr Cardiac Surgery [facility]ATH[facility] Team 08/05/2024 8:31 AM * PARUL Perez - 08/04/2024 12:53 PM EDT 08/04/24 1246 Discharge Planning Living Arrangements Family members (Lives in home of friend Carole Em with her adult daughter, Jasmin. Two other tenants (room rental)who are friend: Jamie Tian (age 38) and Christopher Perez (age 24)) Support Systems Children;Friends/neighbors Assistance Needed IPTA / no ADs - has a walker if needed / drives / retired Type of Residence Private residence Number of Stairs to Enter Residence 0 Number of Stairs Within Residence 0 Do you have animals or pets at home? Yes Type of Animals or Pets 4 dogs Who is requesting discharge planning? Provider Home or Post Acute Services In home services Type of Home Care Services Home nursing visits;Home OT;Home PT Expected Discharge Disposition Home H ([address]) Does the patient need discharge transport arranged? No Financial Resource Strain How hard is it for you to pay for the very basics like food, housing, medical care, and heating? Not hard Housing Stability In the last 12 months, was there a time when you were not able to pay the mortgage or rent on time?N In the past 12 months, how many times have you moved where you were living? 0 At any time in the past 12 months, were you homeless or living in a senior living (including now)? N Transportation Needs In the past 12 months, has lack of transportation kept you from medical appointments or from getting medications? no In the past 12 months, has lack of transportation kept you from meetings, work, or from getting things needed for daily living? No Patient Choice Provider Choice list and CMS website (https://medicare.gov/care-compare#search) for post-acute Quality and Resource Measure Data were provided and reviewed with: Patient Patient / Family choosing to utilize agency / facility established prior to hospitalization No Met with patient for DC/SDOH assessments. Verified EPIc info of address / PCP / and pharmacy. Reviewed [facility] loc as a service, right to choice and list to choose. Patient wants [facility] agency arranged frompast admit in May which is [facility]. Vanesa Alvarado (PARUL, GROVE WORKER) * MARTHA Mcmahan - 08/04/2024 10:57 AM EDT Speech-Language Pathology Adult Inpatient Swallow Treatment Patient Name: Lizbeth Nixon Today's Date: 08/04/2024 Start Time: 820 Stop Time: 0853 Time Calculation (min): 32 Impression: Swallow treatment completed to determine readiness for PO intake. Pt with similar clinical presentation when compared to initial evaluation completed 08/03. DHT in place. Decreased O2 requirement. Continued weak wet nonproductive volitional cough. Pt stated she has not been given ice chips as per WATER LEAK REPAIRER recommendation. Pt unable to complete 3oz. Water challenge to r/o silent aspiration 2/2 frequent pausing, inability to coordinate breathing/swallowing, weak wet nonproductive coughing and increasedwork of breathing. WATER LEAK REPAIRER and pt discussed desire for PO intake, pt reported even if I could eat I wouldn't b/c nothing tastes right. She reported understanding for the need of alternate means nutrition/hydration. WATER LEAK REPAIRER will continue to follow up to determine readiness for PO intake vs need for instrumental swallow assessment. Pt in agreement with dysphagia POC. WATER LEAK REPAIRER continues to recommend NPO with frequent aggressive oral care. 7-10 ice chips/hr. allowed after oral care for safe swallow stimulation, pleasure and to reduce build-up of colonized bacteria within the oropharynx. Nursing aware of recommendations. Recommendations: NPO with frequent aggressive oral care -7-10 ice chips/hr. allowed after oral care for safe swallow stimulation, pleasure and to reduce build-up of colonized bacteria within the oropharynx. Goal: Pt will tolerate least restrictive diet with no overt clinical s/s aspiration 100% of the time. Start Date: 08/03/24 End Date: 08/17/24 Status: Progressing Plan: WATER LEAK REPAIRER Services Indicated: Yes Frequency: 2x week Discussed POC with patient WATER LEAK REPAIRER - OK to Discharge Pain: 0-10 0 = No pain. Inpatient Education: Extensive education provided to patient regarding current swallow function, recommendations/results, and POC. Consultations/Referrals/Coordination of Services: N/A * Geovanny Bolton MD - 08/04/2024 10:38 AM EDT Lizbeth Nixon is a 69 y.o. female on day 3 of admission presenting with Aneurysm of ascending aortawithout rupture ([facility]). Subjective Patient discussed in morning handover, patient examined and chart reviewed. Meds, labs and radiology reviewed during rapid and full interdisciplinary rounds this morning. Surgeon: Marta DOS: 08/01 Procedure: Redo-sternotomy, CABG x 2 (SVG-PDA and SVG-SVG previous graft), AVR bioprosthetic and ascending Aorta/Adryan- Arch. Airway: grade I - full view of glottis EF: 55-60% with normal RV function FULL CODE Is patient candidate for Emergency Re-sternotomy? Yes; Exp POD #10 - August 11 2024 HPI: Followed as an outpatient. Patient endorsed progressive shortness of breath and dizziness. 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 Furthermore, patient is undergoing treatment for breast cancer and they are unable to continue her therapy until hercardiac issues are addressed. PMH: CABG and AVR in 2004 Afib s/p PPM and AICD CVA x 2 w/o deficits, carotid stenosis Dyslipidemia HOCM/LVH HTN Hysterectomy Breast cancer s/p chemo (mediport), GERD Post-op: - Failed bedside swallow assessment. WATER LEAK REPAIRER recommends PO with ice chips. Dobhoff placed Overnight: No new issues overnight. Objective Last Recorded Vitals Blood pressure 127/58, pulse 74, temperature 36 C (96.8 F), temperature source Temporal, resp. rate15, height 1.524 m (5'), weight 65.1 kg (143 lb 8.3 oz), SpO2 97%. Intake/Output last 3 Shifts: I/O last 3 completed shifts: In: 1225.7 (18.8 mL/kg) [I.V.:26.2 (0.4 mL/kg); NG/GT:330; IV Piggyback:869.5] Out: 3783 (58.1 mL/kg) [Urine:3353 (1.4 mL/kg/hr); Chest Tube:430] Weight: 65.1 kg Physical Exam Eyes: Pupils: Pupils are equal, round, and reactive to light. Cardiovascular: Rate and Rhythm: Normal rate. Rhythm irregularly irregular. Comments: Lines: Pulmonary: Effort: Pulmonary effort is normal. Breath sounds: Decreased breath sounds (to bases bilaterally) present. Abdominal: Palpations: Abdomen is soft. Tenderness: There is no abdominal tenderness. There is no guarding or rebound. Skin: Comments: No issues at present Neurological: Mental Status: She is alert. Comments: CAM-ICU: negative RASS: 0 Assessment/Plan Principal Problem: Aneurysm of ascending aorta without rupture ([facility]) Active Problems: Ascending aortic aneurysm, unspecified whether ruptured ([facility]) ICU Liberation Bundle: A-Analgesia: Tylenol and opioids at lowest effective dose B-SBT: passed and extubated C-RASS Target: 0 D-CAM: negative E-Mobilization Plan: OOBTC and ambulate today F - Family Last Update: to be update by the team Daily Checklist: HOB > 30 degrees: extubated Feeding: p.o. intake Thromboprophylaxis: Heparin and SCDs Ulcer Prophylaxis: PPI Glucose Control: Target 110-180; < 180 achieved; no hypoglycemia Line to removed: discontinue chest tubes and invasive monitoring Bowel Care: Bowel regime ordered De-escalation of Antibiotics: Completed routine anti-microbial prophylaxis Issues/Plan: Thrombocytopenia (existed pre-operative); observation for now. ASA 81mg daily initiated On enteral feeds; will need WATER LEAK REPAIRER follow-up ASA and statin; re-assess other home cardiac med Psych: start home sertraline 100 mg daily; hold home olanzapine, trazodone, flexeril DISPO: transfer to matos today I spent 39 minutes in the professional and overall care of this patient. I have personally identified and managed all complex care issues to prevent aforementioned clinicaldeterioration. Clinical care time is spent at bedside and/or the immediate area and has included, but is not limited to, the review of diagnostic tests, labs, radiographs, serial assessments of hemodynamics, respiratory status, ventilatory management, and family updates. Time spent in procedures and teaching are reported separately. Geovanny Bolton MD * Kerry Bruce, MOTION PICTURE PROJECTIONIST-CUSTOM STOCK MAKER - 08/04/2024 7:01 AM EDT CTICU Progress Note Lizbeth Nixon/[id number] Admit Date: 08/01/2024 Hospital Length of Stay: 3 ICU Length of Stay: 2d 16h CT SURGEON: Dr. Lozano SUBJECTIVE: Tolerating weaning FiO2, down to 2L NC from 6L NC. MEDICATIONS Infusions: Scheduled: acetaminophen, 975 mg, q6h aspirin, 81 mg, Daily atorvastatin, 80 mg, Nightly [Held by provider] heparin, 5,000 Units, q8h insulin lispro, 0-15 Units, q4h lidocaine, 1 patch, Daily metoprolol tartrate, 25 mg, BID oxygen, , Continuous - Inhalation pantoprazole, 40 mg, Daily before breakfast Or pantoprazole, 40 mg, Daily before breakfast polyethylene glycol, 17 g, BID sertraline, 100 mg, Daily PRN: alteplase, 2 mg, PRN calcium gluconate, 1 g, q6h PRN calcium gluconate, 2 g, q6h PRN dextrose, 25 g, q15 min PRN Or glucagon, 1 mg, q15 min PRN hydrALAZINE, 10 mg, q4h PRN [Held by provider] HYDROmorphone, 0.2 mg, q4h PRN magnesium sulfate, 2 g, q6h PRN naloxone, 0.2 mg, q5 min PRN ondansetron, 4 mg, q8h PRN Or ondansetron, 4 mg, q8h PRN oxyCODONE, 5 mg, q6h PRN oxygen, , Continuous PRN - O2/gases potassium chloride, 20 mEq, q6h PRN potassium chloride, 40 mEq, q6h PRN PHYSICAL EXAM: Visit Vitals BP (!) 127/47 Pulse 78 Temp 36.8 C (98.2 F) (Temporal) Resp (!) 27 Ht 1.524 m (5') Wt 65.1 kg (143 lb 8.3 oz) LMP (LMP Unknown) SpO2 90% BMI 28.03 kg/m OB Status Postmenopausal Smoking Status Former BSA 1.66 m Wt Readings from Last 5 Encounters: 08/01/24 65.1 kg (143 lb 8.3 oz) 07/24/24 66.2 kg (145 lb 15.1 oz) 07/07/24 65.7 kg (144 lb 12.8 oz) 06/28/24 64.8 kg (142 lb 14.4 oz) 06/28/24 64.9 kg (143 lb 3 oz) INTAKE/OUTPUT: I/O last 3 completed shifts: In: 1195.7 (18.4 mL/kg) [I.V.:26.2 (0.4 mL/kg); NG/GT:300; IV Piggyback:869.5] Out: 3723 (57.2 mL/kg) [Urine:3293 (1.4 mL/kg/hr); Chest Tube:430] Weight: 65.1 kg Vent settings: FiO2 (%): [40 %-60 %] 44 % Physical Exam: - CONSTITUTION: Critically ill female lying in bed in CTICU on airvo. - NEUROLOGIC: AOx3 and CAM (-). Follows commands and moves all extremities. - CARDIOVASCULAR: NSR rate in 70-80s. VVI @ 50. - RESPIRATORY: 2L NC. Diminished bases, poor inspiratory volumes. RPL, LPL, and MS chest tubes to suction with minimal serosanguinous output and no air leaks noted. - GI: Abdomen soft, distended, nontender. - : Jay in place with clear, yellow urine. - EXTREMITIES: Warm. Radial pulses +2 and DP pulses +1. - SKIN: Warm and clean. All wounds clean and dressed appropriately. - PSYCHIATRIC: Calm and cooperative. Daily Risk Screen Intubated: No Central line: Removing Jay: Removing Invasive Hemodynamics: Most Recent Range Past 24hrs BP (Art) 145/57 Arterial Line BP 1 Min: 94/89 Max: 163/66 MAP(Art) 87 mmHg Arterial Line MAP 1 (mmHg) Min: 66 mmHg Max: 102 mmHg Assessment/Plan Assessment:This is a 69 year old female with a PMH significant for CABG and AVR in 2004, hysterectomy, breast cancer s/p chemo (mediport), 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 She presents s/p redo sternotomy, CABG x 2 (SVG-PDA and SVG-SVG previous graft), AVR bioprosthetic and ascending Aorta/Adryan- Arch w/ Dr. Lozano on 08/01. Plan: NEURO: PMH of Anxiety, CVA x 2 (no deficits). Aox2 and CAM (+). Follows commands and moves all extremities. Acute post operative pain, well controlled. Reportedly sleeping okay. OOB to chair. --> - Serial neuro and pain assessments - Continue extra strength tylenol 975mg q 6hr - Lidocaine patches - PT Consult, OOB to chair as tolerated, chair position if not tolerated - CAM ICU score qshift - Sleep/wake cycle hygiene - Continue home sertraline 100 mg daily - Hold home olanzapine, trazodone, flexeril CV: Patient has a history of HOCM, afib, LVH, HTN, HPL, AVR/CABG 2004 and AICD/PPM. Now s/p Redo sternotomy, CABG x 2 (SVG-PDA and SVG-SVG previous graft), AVR, Ascending aorta and adryan arch replacement with deep hypothermic circulatory arrest with retrograde perfusion w/ Dr. Lozano on 08/01. AICD. PPM DDDr 60-120. Pre/Post EF: normal BIV. V epicardial wires set VVI @ 50. --> - Maintain goal MAP 70-85 - Continue metoprolol 25 mg BID - Maintain epicardial wires set VVI @ 50 - PRN hydral for MAP > 85 - Continue Aspirin 81 mg daily - Continue atorvastatin 80mg daily - Hold home amlodipine, lisinopril, sotalol - See for diuresis PULM: No history of pulmonary disease. Extubated 08/01. 2-4L NC, IS ~ 500 ml. Chest tubes RPL, LPL,MS with serosanguinous output and no air leaks noted. CXR with low lung volumes, small bilateral pleural effusions, atelectasis, and acute non-cardiogenic pulmonary edema. --> - Daily CXR - Wean FiO2 maintaining SpO2 >92% - IS q1h and OOB to chair - Remove Chest tubes to wall suction - Start bronchial hygiene TID GI: PMH of GERD. Failed bedside swallow assessment. WATER LEAK REPAIRER recommends PO with ice chips. Dobhoff placed 08/03. No post op BM. --> - Continue PPI - NPO, Continue to advance TFs as tolerated -5-7 ice chips/hr allowed after oral care for safe swallow stimulation, pleasure and to reduce build-up of colonized bacteria within the oropharynx - Start Colace/senna BID and miralax BID - Suppository : CSA-GARRICK Risk Score low. No history of renal disease, baseline creatinine 1.02. Creatinine stable post-op. Jay in place and making adequate UOP. Last 24 hours -1.5L. --> - Remove jay catheter - Goal -1L -> Lasix 20 mg - RFP daily - Replete electrolytes per CTICU protocol ENDO: No significant PMHx. Stress hyperglycemia appropriately controlled on current regimen. --> - Maintain BG <180 - SSI #1 q 4hr HEME: History of new diagnosis of breast CA. Acute blood loss anemia stable and thrombocytopenia stable ~ 50s. No s/s of bleeding/coagulopathy. --> - CBC daily - Continue aspirin daily - Resume SQH - SCDs for DVT prophylaxis. - Last type and screen: 08/01 -> Send Oncology: -hx of breast cancer s/p 3cycles of gem/carbo with clinical response ID: Afebrile, no current indications of infection. MRSA 07/24 negative.--> - Trend temp q4h - Periop cefazolin x 48hrs Skin: No active skin issues. - preventative Mepilex dressings in place on sacrum and heels - change preventative Mepilex weekly or more frequently as indicated (when moist/soiled) - every shift skin assessment per nursing and weekly ICU skin rounds - moisture barrier to be applied with tamera care - active skin problems addressed with nursing on daily rounds Proph: SCDs PPI SUBQ G: Line Left IJ MAC w Minimac placed 08/01 - Remove Left brachial a-line placed 08/01 - Remove Mediport-not accessed Jay 08/01 - Remove F: Family: will update at bedside postoperatively. A,B,C,D,E,F,G: reviewed I personally spent 40 minutes of critical care time directly and personally managing the patient exclusive of separately billable procedures. Dispo: CTICU care for now, tower 3 this afternoon CTICU TEAM PHONE [phone] * Renay Phelan DO - 08/03/2024 6:30 PM EDT CTICU Attending Note Patient seen, evaluated, and discussed with the KATHY and fellow. I have personally obtained celestin components of the history and physical and have performed my own medical decision making. 69 year old female with history of bicuspid aortic valve and CAD s/p AVR/CABG now s/p redo AVR/CABGx2 with ascending aorta and hemiarch replacement with 15 minutes of circ arrest with Dr. Lozano. Arrived to CTICU on epinephrine and norepinephrine infusions. Reportedly normal biventricular function. Requiring BiPAP post-extubation for hypercarbia and somnolence. Neuro: History of CVA without residual deficit, history of carotid stenosis. Pain control. PT/OT, goal out of bed. Delirium precautions. More awake today. Interactive when prompted. Will aim for greater awakening during daytime to prevent delirium. CV: History of bicuspid AV s/p AVR, CAD s/p CABG, HOCM, afib, hypertension, hyperlipidemia with AVR/CABG in 2004. Now s/p re-do AVR/CABGx2 with asc. aorta replacement and hemiarch under circ arrest x15 minutes. Normal function biventricularly reported. AICD and PPM in place. Epicardial wires VVI backup. Add beta eun low dose today. Pulm: Weaning from BiPAP today; breaks with AirVo as needed and wean FiO2 as tolerated. Monitor closely. Monitor chest tube output - remove when able. : Monitor urine output and optimize electrolytes. Diurese. GI: History of GERD. Failed swallow evaluation, will continue to reassess. Start tube feeds. Heme: Acute blood loss anemia and acute post-op thrombocytopenia in setting of recent thrombocytopenia prior to hospitalization. Monitor for transfusion indications. SCDs for DVT prophylaxis. Aspirin. Holding SQH with thrombocytopenia. ID: Perioperative antibiotics. Stable leukocytosis, likely reactive - monitor. Endo: Glycemic control with SSI. Oncology: History of breast cancer with chemo via right chest mediport. Dispo: Continue CTICU. This critically ill patient continues to be at risk for clinically significant deterioration / failure due to the above mentioned dysfunctional, unstable organ systems. I have personally identified and managed all complex critical care issues to prevent aforementioned clinical deterioration. Critical care time is spent at bedside and/or the immediate area and has included, but is not limited to, the review of diagnostic tests, labs, radiographs, serial assessments of hemodynamics, respiratory status, ventilatory management, review of consult team recommendations, and family updates. Time spent in procedures and teaching are reported separately. Critical Care Time: 32 minutes. * Sonya Queen, PT - 08/03/2024 4:00 PM EDT Physical Therapy Physical Therapy Evaluation & Treatment Patient Name: Lizbeth Nixon Department: [facility] [place] [id number] CR NONV1 Room: Today's Date: 08/03/2024 Time Calculation Start Time: 1307 Stop Time: 1341 Time Calculation (min): 34 min Assessment/Plan PT Assessment PT Assessment Results: Decreased strength, Decreased endurance, Impaired balance, Decreased mobility, Pain Rehab Prognosis: Good Barriers to Discharge: Medical acuity Evaluation/Treatment Tolerance: Patient tolerated treatment well Medical Staff Made Aware: Yes End of Session Communication: Bedside nurse Assessment Comment: Pt performed bed mobility and functional transfers with min A this date; pt will continue to benefit from skilled PT to improve functional mobility. End of Session Patient Position: Up in chair, Alarm off, not on at start of session IP OR SWING BED PT PLAN Inpatient or Swing Bed: Inpatient PT Plan Treatment/Interventions: Bed mobility, Transfer training, Gait training, Balance training, Strengthening, Endurance training, Therapeutic activity, Therapeutic exercise PT Plan: Ongoing PT PT Frequency: 3 times per week PT Discharge Recommendations: Low intensity level of continued care Equipment Recommended upon Discharge: Wheeled walker PT Recommended Transfer Status: Assist x1 PT - OK to Discharge: Yes Subjective General Visit Information: General Reason for Referral: She presents s/p redo sternotomy, CABG x 2 and AVR bioprosthetic w/ Dr. Lozano. 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 Prior to Session Communication: Bedside nurse Patient Position Received: Bed, 3 rail up, Alarm off, not on at start of session Preferred Learning Style: auditory, verbal, visual General Comment: Pt awake and willing to participate in PT evaluation. (Lines: Airvo- 40L, 40% FiO2; A line, jay, 3 chest tubes) Home Living: Home Living Type of Home: House Lives With: Friends Home Adaptive Equipment: None Home Layout: One level Home Access: Ramped entrance Bathroom Shower/Tub: Walk-in shower Bathroom Equipment: Shower chair with back Home Living Comments: Pt lives with multiple friends Prior Level of Function: Prior Function Per Pt/Caregiver Report Level of [place]: Independent with ADLs and functional transfers Receives Help From: Friends ADL Assistance: Independent Homemaking Assistance: Independent Ambulatory Assistance: Independent Vocational: Retired Prior Function Comments: Drives, no falls; pt is the only person who drives at home Precautions: Precautions Hearing/Visual Limitations: Reported that she usually wears glasses Medical Precautions: Cardiac precautions, Fall precautions, Chest tube, Oxygen therapy device and L/min Precautions Comment: MAP 70-85, SpO2>92%; VVI @ 50 Vital Signs 08/03/24 1307 Vital Signs Vitals Session Pre PT Heart Rate 83 Heart Rate Source Monitor SpO2 96 % BP (!) 134/48 BP Method Arterial line Patient Position Lying 08/03/24 1341 Vital Signs Vitals Session Post PT Heart Rate 88 Heart Rate Source Monitor SpO2 91 % BP 138/62 BP Method Arterial line Patient Position Sitting Objective Pain: Pain Assessment Pain Assessment: 0-10 0-10 (Numeric) Pain Score: 4 Pain Type: Surgical pain Pain Location: Chest Pain Interventions: Repositioned, Ambulation/increased activity Response to Interventions: Pt resting in recliner chair at end of session Cognition: Cognition Overall Cognitive Status: Within Functional Limits Orientation Level: Oriented X4 Cognition Comments: Pt CAM (-) and A&Ox4 however presented with some confusion including repeatedly asking who PT was throughout session and perseverating on question of whether she was dying Insight: Mild General Assessments: Activity Tolerance Endurance: Tolerates 10 - 20 min exercise with multiple rests Early Mobility/Exercise Safety Screen: Proceed with mobilization - No exclusion criteria met Activity Tolerance Comments: Vitals stable throughout session Sensation Light Touch: No apparent deficits Strength Strength Comments: Grossly at least 3/5 based on functional mobility; Bilat knee ext 4+/5 Strength Strength Comments: Grossly at least 3/5 based on functional mobility; Bilat knee ext 4+/5 Perception Inattention/Neglect: Appears intact Initiation: Appears intact Motor Planning: Appears intact Perseveration: Perseverates during conversation (Repetitive questioning throughout session of whether she was dying or not) Coordination Movements are Fluid and Coordinated: Yes Postural Control Postural Control: Within Functional Limits Static Sitting Balance Static Sitting-Balance Support: Feet supported, Bilateral upper extremity supported Static Sitting-Level of Assistance: Close supervision Static Standing Balance Static Standing-Balance Support: Bilateral upper extremity supported Static Standing-Level of Assistance: Contact guard Functional Assessments: Bed Mobility Bed Mobility: Yes Bed Mobility 1 Bed Mobility 1: Supine to sitting Level of Assistance 1: Minimum assistance Bed Mobility Comments 1: Min A for trunk elevation to seated Transfers Transfer: Yes Transfer 1 Transfer From 1: Sit to, Stand to Transfer to 1: Stand, Sit Technique 1: Sit to stand, Stand to sit Transfer Level of Assistance 1: Arm in arm assistance, Minimum assistance Trials/Comments 1: Min A for hip elevation to stand and controlled descent to sit Transfers 2 Transfer From 2: Bed to Transfer to 2: Chair with arms Technique 2: Stand pivot Transfer Level of Assistance 2: Minimum assistance, Arm in arm assistance Trials/Comments 2: Min A for balance Ambulation/Gait Training Ambulation/Gait Training Performed: No (Mobility limited due to presence of Airvo) Extremity/Trunk Assessments: Cervical Spine Cervical Spine: Within Functional Limits Lumbar Spine Lumbar Spine : Within Functional Limits RLE RLE : Within Functional Limits LLE LLE : Within Functional Limits Treatments: Therapeutic Activity Therapeutic Activity Performed: Yes Therapeutic Activity 1: Increased time for advanced ICU line management required for functional mobility Therapeutic Activity 2: Pt sat EOB for ~7 minutes with SBA for safety Therapeutic Activity 3: Pt performed incentive spirometer x 5 during session; education provided onsignificance and use Outcome Measures: [facility] Basic Mobility Turning from your back to your side while in a flat bed without using bedrails: A little Moving from lying on your back to sitting on the side of a flat bed without using bedrails: A little Moving to and from bed to chair (including a wheelchair): A little Standing up from a chair using your arms (e.g. wheelchair or bedside chair): A little To walk in hospital room: A lot Climbing 3-5 steps with railing: Total Basic Mobility - Total Score: 15 FSS-ICU Ambulation: Walks <50 feet with any assistance x1 or walks any distance with assistance x2 people Rolling: Minimal assistance (performs 75% or more of task) Sitting: Supervision or set-up only Transfer [id number]: Minimal assistance (performs 75% or more of task) Transfer [id number]: Minimal assistance (performs 75% or more of task) Total Score: 18 Early Mobility/Exercise Safety Screen: Proceed with mobilization - No exclusion criteria met ICU Mobility Scale: Transferring bed to chair [5] Encounter Problems Encounter Problems (Active) Balance Pt will demonstrate improved sitting/standing static/dynamic balance activities without LOB via score of 24/28 on the [place] for increase in safety prior to DC. (Progressing) Start: 08/03/24 Expected End: 08/17/24 Mobility Pt will tolerate >15 minutes of upright standing activity without seated rest breaks with no changes in vital signs for improved functional mobility. (Progressing) Start: 08/03/24 Expected End: 08/17/24 Pt will ambulate >50ft with appropriate form, CGA or less, LRAD, and no LOB for safe DC. (Progressing) Start: 08/03/24 Expected End: 08/17/24 PT Transfers Pt will perform bed mobility and sit<>stand transfers with CGA and use of LRAD to safely DC. (Progressing) Start: 08/03/24 Expected End: 08/17/24 Education Documentation Body Mechanics, taught by Sonya Queen PT at 08/03/2024 3:59 PM. Learner: Patient Readiness: Acceptance Method: Explanation Response: Verbalizes Understanding Precautions, taught by Sonya Queen PT at 08/03/2024 3:59 PM. Learner: Patient Readiness: Acceptance Method: Explanation Response: Verbalizes Understanding Mobility Training, taught by Sonya Queen PT at 08/03/2024 3:59 PM. Learner: Patient Readiness: Acceptance Method: Explanation Response: Verbalizes Understanding Education Comments No comments found. 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 She presents s/p redo sternotomy, CABG x 2 and AVR bioprosthetic w/ Dr. Lozano. Assessment: Clinical bedside swallow evaluation completed. A&Ox4. Unremarkable oral motor examination. Significantly weak wet nonproductive volitional cough demonstrated prior to PO trials. O2 via airvo; baseline no O2 needs. Given ice chips and tsp sips of water with intermittent wet throat clearing noted. Given straw sips with weak wet nonproductive coughing and increased work of breathing. Pt unable to consume consecutive sips via cup or straw despite max cues/attempts; suspect r/t decreased abilityto coordinate breathing/swallowing. No further trials given 2/2 severity/risk of aspiration. WATER LEAK REPAIRER recommends NPO with frequent aggressive oral care. 5-7 ice chips/hr. allowed after oral care for safe swallow stimulation, pleasure and to reduce build-up of colonized bacteria within the oropharynx. Will follow up next date, AM, to determine readiness for PO intake vs need/readiness for instrumental swallow assessment; pending overall improvement in respiratory status. Defer oral medication administration to medical team via risk/benefit analysis. MD and nursing aware of recommendations. Extensive education provided to pt re: swallow function, NPO recommendation and dysphagia POC. Recommendations: NPO with frequent aggressive oral care -5-7 ice chips/hr. allowed after oral care for safe swallow stimulation, pleasure and to reduce build-up of colonized bacteria within the oropharynx. Goal: Pt will tolerate least restrictive diet with no overt clinical s/s aspiration 100% of the time. Start Date: 08/03/24 End Date: 08/17/24 Status: Goal Initiated this date Plan: WATER LEAK REPAIRER Services Indicated: Yes Frequency: 2x week Discussed POC with patient WATER LEAK REPAIRER - OK to Discharge Pain: 0-10 0 = No pain. Inpatient Education: Extensive education provided to patient regarding current swallow function, recommendations/results, and POC. Consultations/Referrals/Coordination of Services: N/A * Raquel Jurado PA-C - 08/03/2024 8:20 AM EDT CTICU Progress Note Lizbeth Nixon/[id number] Admit Date: 08/01/2024 Hospital Length of Stay: 2 ICU Length of Stay: 1d 17h CT SURGEON: SUBJECTIVE: Started on low dose precedex for pain. Respiratory acidosis resolved. MEDICATIONS Infusions: Scheduled: acetaminophen, 1,000 mg, q6h MISHA acetaminophen, 975 mg, q6h aspirin, 81 mg, Daily atorvastatin, 80 mg, Nightly [Held by provider] heparin, 5,000 Units, q8h insulin lispro, 0-15 Units, q4h lidocaine, 1 patch, Daily lidocaine, 1 patch, Daily metoprolol tartrate, 12.5 mg, BID oxygen, , Continuous - Inhalation pantoprazole, 40 mg, Daily before breakfast Or pantoprazole, 40 mg, Daily before breakfast polyethylene glycol, 17 g, BID sertraline, 100 mg, Daily PRN: alteplase, 2 mg, PRN calcium gluconate, 1 g, q6h PRN calcium gluconate, 2 g, q6h PRN dextrose, 25 g, q15 min PRN Or glucagon, 1 mg, q15 min PRN [Held by provider] HYDROmorphone, 0.2 mg, q4h PRN magnesium sulfate, 2 g, q6h PRN naloxone, 0.2 mg, q5 min PRN ondansetron, 4 mg, q8h PRN Or ondansetron, 4 mg, q8h PRN oxyCODONE, 5 mg, q6h PRN potassium chloride, 20 mEq, q6h PRN potassium chloride, 40 mEq, q6h PRN PHYSICAL EXAM: Visit Vitals BP 126/77 Comment: 148/84 Pulse 69 Temp 36.3 C (97.3 F) (Temporal) Resp 13 Ht 1.524 m (5') Wt 65.1 kg (143 lb 8.3 oz) LMP (LMP Unknown) SpO2 98% BMI 28.03 kg/m OB Status Postmenopausal Smoking Status Former BSA 1.66 m Wt Readings from Last 5 Encounters: 08/01/24 65.1 kg (143 lb 8.3 oz) 07/24/24 66.2 kg (145 lb 15.1 oz) 07/07/24 65.7 kg (144 lb 12.8 oz) 06/28/24 64.8 kg (142 lb 14.4 oz) 06/28/24 64.9 kg (143 lb 3 oz) INTAKE/OUTPUT: I/O last 3 completed shifts: In: 2520.6 (38.7 mL/kg) [I.V.:469.5 (7.2 mL/kg); IV Piggyback:2050.1] Out: 4195 (64.4 mL/kg) [Urine:3475 (1.5 mL/kg/hr); Chest Tube:720] Weight: 65.1 kg Vent settings: FiO2 (%): [50 %-70 %] 60 % S RR: [12-18] 18 WV SUP: [7 cm H20] 7 cm H20 Physical Exam: - CONSTITUTION: Critically ill female lying in bed in CTICU on airvo. - NEUROLOGIC: AOx2 and CAM (+). Follows commands and moves all extremities. - CARDIOVASCULAR: NSR rate in 70-80s. MAP in 80-90s. VVI @ 50. - RESPIRATORY: On airvo 60L/60%. Equal rise/fall of chest. RPL, LPL, and MS chest tubes to suction with serosanguinous output and no air leaks noted. - GI: Abdomen soft, distended, nontender. - : Jay in place with clear, yellow urine. - EXTREMITIES: Warm. Radial pulses +2 and DP pulses +1. - SKIN: Warm and clean. All wounds clean and dressed appropriately. - PSYCHIATRIC: Calm and cooperative. Daily Risk Screen Intubated: No Central line: Yes, for parenteral medication administration Jay: Yes, for accurate I/O in critically ill Images: XR CHEST 1 VIEW 08/03/2024 8:32 am IMPRESSION: 1. Left IJ central venous catheter is projecting over the expected location of the superior intercostal vein when correlating with findings on CT from 11/04/2023. Again recommend correlation with function. 2. Unchanged appearance of the lungs with persistent bibasilar pleural effusion and atelectasis/infiltrate. 3. Other medical devices and postsurgical changes as described above. 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 She presents s/p redo sternotomy, CABG x 2 and AVR bioprosthetic w/ Dr. Lozano. Plan: NEURO: PMH of Anxiety, CVA x 2 (no deficits). Aox2 and CAM (+). Follows commands and moves all extremities. Acute post operative pain. Given one time dose of dilaudid and 500mg robaxin for pain. --> - Serial neuro and pain assessments - Continue extra strength tylenol (975mg) - If patient remains more awake and alert and still in pain, then will start PO robaxin - Lidocaine patches - PT Consult, OOB to chair as tolerated, chair position if not tolerated - CAM ICU score qshift - Sleep/wake cycle hygiene - Hold home olanzapine, sertraline, trazodone, flexeril CV: Patient has a history of HOCM, afib, LVH, HTN, HPL, AVR/CABG 2004. Is now status post Redo sternotomy, AVR, Ascending aorta and adryan arch replacement with deep hypothermic circulatory arrest withretrograde perfusion w/ Dr. Lozano. AICD. PPM DDDr 60-120. Pre/Post EF: normal BIV. V epicardial wires set VVI @ 50. Hypertensive this morning with SBP 150-160s.--> - Maintain goal MAP 70-85 - ABG and VBG as needed - Start 12.5mg metoprolol BID - Maintain epicardial wires set VVI @ 50 - PRN hydral for MAP > 85 - Continue ASA - Start atorvastatin 80mg daily - Hold home amlodipine, lisinopril, sotalol PULM: No history of pulmonary disease. Extubated 08/01. Currently on airvo 60L/60% with SpO2 96%. Chest tubes RPL, LPL, MS with serosanguinous output and no air leaks noted. --> - Daily CXR - CPAP PRN - CPAP nightly - Wean FiO2 maintaining SpO2 >92% - Goal to wean off airvo to HFNC - IS q1h and OOB to chair - Chest tubes to wall suction - Plan to remove chest tubes if there is no dump of fluid when OOB tochair GI: PMH of [place]. Failed bedside swallow assessment. WATER LEAK REPAIRER recommends PO with ice chips. Dobhoff placed 08/03. --> - Continue PPI - NPO -5-7 ice chips/hr allowed after oral care for safe swallow stimulation, pleasure and to reduce build-up of colonized bacteria within the oropharynx - Colace/senna BID and miralax BID : CSA-GARRICK Risk Score low. No history of renal disease, baseline creatinine 1.02. Creatinine stable post-op. Jay in place and making adequate UOP. Net - 2.7L for 24hrs. Ordered 20mg lasix. --> - Continue jay catheter for strict I/Os. - Goal UOP 0.5ml/kg/hr - Goal -1L for shift - RFP as clinically indicated - Replete electrolytes per CTICU protocol ENDO: No significant PMHx. Stress hyperglycemia appropriately controlled on current regimen. --> - Maintain BG <180 - Insulin per CTICU protocol HEME: Acute blood loss anemia and thrombocytopenia. Plt started at 144 08/02 and currently 44. No s/s of bleeding/coagulopathy. --> - Monitor drain output volume and characteristics - CBC, coags, and fibrinogen post op and as clinically indicated - Continue ASA - HOLD SQH - SCDs for DVT prophylaxis. - Last type and screen: 08/01 Oncology: -hx of breast cancer s/p 3cycles of gem/carbo with clinical response ID: Afebrile, no current indications of infection. MRSA 07/24 negative.--> - Trend temp q4h - Periop cefazolin x 48hrs Skin: No active skin issues. - preventative Mepilex dressings in place on sacrum and heels - change preventative Mepilex weekly or more frequently as indicated (when moist/soiled) - every shift skin assessment per nursing and weekly ICU skin rounds - moisture barrier to be applied with tamera care - active skin problems addressed with nursing on daily rounds Proph: SCDs PPI G: Line Left IJ MAC w Minimac placed 08/01 - Plan to remove today Left brachial a-line placed 08/01 Mediport-not accessed Jay 08/01 F: Family: will update at bedside postoperatively. A,B,C,D,E,F,G: reviewed I personally spent 40 minutes of critical care time directly and personally managing the patient exclusive of separately billable procedures. Dispo: CTICU care for now. CTICU TEAM PHONE [phone] * Renay Flores [place], - 08/02/2024 7:43 PM EDT CTICU Attending Note Patient seen, evaluated, and discussed with the KATHY and fellow. I have personally obtained celestin components of the history and physical and have performed my own medical decision making. 69 year old female with history of bicuspid aortic valve and CAD s/p AVR/CABG now s/p redo AVR/CABGx2 with ascending aorta and hemiarch replacement with 15 minutes of circ arrest with Dr. Lozano. Arrived to CTICU on epinephrine and norepinephrine infusions. Reportedly normal biventricular function. Requiring BiPAP post-extubation for hypercarbia and somnolence. Neuro: History of CVA without residual deficit, history of carotid stenosis. Pain control. PT/OT, goal out of bed. Delirium precautions. CAM+ today. Somnolent but cooperative when prompted. Will aim for greater awakening during daytime to prevent delirium. CV: History of bicuspid AV s/p AVR, CAD s/p CABG, HOCM, afib, hypertension, hyperlipidemia with AVR/CABG in 2004. Now s/p re-do AVR/CABGx2 with asc. Aorta replacement and hemiarch under circ arrest x15 minutes. Vasoactive infusions weaned off. Normal function biventricularly reported. AICD and PPM in place. Epicardial wires VVI backup. Pulm: Extubated but with hypercarbic respiratory acidosis, BiPAP today; breaks with AirVo as needed. Monitor closely. Monitor chest tube output. : Monitor urine output and optimize electrolytes. Goal even fluid balance to assist with respiratory status. GI: History of GERD. Failed swallow; formal evaluation when appropriate - NPO for now. Heme: Acute blood loss anemia and thrombocytopenia; worsening thrombocytopenia today. Monitor for transfusion indication. SCDs for DVT prophylaxis. Aspirin. Holding SQH with worsening thrombocytopenia today. ID: Perioperative antibiotics. Increasing leukocytosis, possibly reactive - monitor. Endo: Glycemic control with SSI. Oncology: History of breast cancer with chemo via right chest mediport. Dispo: Continue CTICU. This critically ill patient continues to be at risk for clinically significant deterioration / failure due to the above mentioned dysfunctional, unstable organ systems. I have personally identified and managed all complex critical care issues to prevent aforementioned clinical deterioration. Critical care time is spent at bedside and/or the immediate area and has included, but is not limited to, the review of diagnostic tests, labs, radiographs, serial assessments of hemodynamics, respiratory status, ventilatory management, review of consult team recommendations, and family updates. Time spent in procedures and teaching are reported separately. Critical Care Time: 33 minutes. * Mike Smith-OT - 08/02/2024 3:20 PM EDT Occupational Therapy Evaluation Patient Name: Lizbeth Nixon Today's Date: 08/03/2024 Room: Time Calculation Start Time: 1314 Stop Time: 1338 Time Calculation (min): 24 min Assessment IP OT Assessment OT Assessment: Pt willing to engage in OT session. Pt limited by fatigue and weakness. Would benefit from continued skilled therapy to increase endurance and strength for safety and to increase functional potential Prognosis: Good Barriers to Discharge: Other (Comment) (Medical acuity) Evaluation/Treatment Tolerance: Patient limited by fatigue Medical Staff Made Aware: Yes End of Session Communication: Bedside nurse End of Session Patient Position: Bed, 3 rail up, Alarm off, not on at start of session Plan: Inpatient Plan Treatment Interventions: ADL retraining, Functional transfer training, Endurance training, Neuromuscular reeducation, Compensatory technique education OT Frequency: 3 times per week OT Discharge Recommendations: Other (Comment) (TBD on oxygen support needed) Equipment Recommended upon Discharge: Wheeled walker OT Recommended Transfer Status: Moderate assist OT - OK to Discharge: Yes OT Assessment OT Assessment Results: Decreased ADL status, Decreased endurance, Decreased functional mobility, Decreased trunk control for functional activities Prognosis: Good Barriers to Discharge: Other (Comment) (Medical acuity) Evaluation/Treatment Tolerance: Patient limited by fatigue Medical Staff Made Aware: Yes Subjective Current Problem: 1. Ascending [place], unspecified [place] [place] Anesthesia Intraoperative Transesophageal Echocardiogram Anesthesia Intraoperative Transesophageal Echocardiogram 2. 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 Aortic valve stenosis, etiology of cardiac valve disease unspecified Anesthesia Intraoperative Transesophageal Echocardiogram Anesthesia Intraoperative Transesophageal Echocardiogram 4. Nonrheumatic aortic valve stenosis Cardiac device check - Surgery Cardiac device check - Surgery 5. Coronary artery disease of [place] artery of [place] heart [place] stable angina pectoris [place] [place] Cardiac device check - Surgery Cardiac device check - Surgery 6. Implantable cardioverter-defibrillator (ICD) in situ Cardiac device check - Inpatient Cardiac device check - Inpatient 7. Nonrheumatic aortic valve disorder, unspecified Anesthesia Intraoperative Transesophageal Echocardiogram General: Reason for Referral: s/p redo sternotomy, CABG x 2 and AVR bioprosthetic, on BiPAP Past Medical History Relevant to Rehab: CABG and AVR in 2004, hysterectomy, breast cancer s/p chemo(mediport), CVA x 2 w/o deficits, carotid stenosis, afib s/p PPM and AICD Prior to Session Communication: Bedside nurse, Physician Patient Position Received: Bed, 3 rail up, Alarm off, not on at start of session Family/Caregiver Present: No General Comment: Pt with eyes closed at start of session, increased arousal during session. Pt engaged in bed mobility, sitting EOB, and standing with min- mod A x2. Pt asking for a drink d/t dry mouth consistently throughout session, verbalized understanding on limitations. (BiPAP: RR 16, O2 70%. VVI@50) Precautions: Medical Precautions: Fall precautions, Oxygen therapy device and L/min Precautions Comment: MAP 70-85, SpO2>92% Vital Signs: Vital Signs (Past 2hrs) Date/Time Vitals Session Patient Position Pulse Resp SpO2 BP MAP (mmHg) 08/03/24 1200 -- -- 81 19 98 % -- -- 08/03/24 1220 -- -- -- -- 99 % -- -- Pain: Pain Assessment Pain Assessment: 0-10 0-10 (Numeric) Pain Score: 0 - No pain Lines/Tubes/Drains: CVC 08/01/24 Triple lumen Left Internal jugular (Active) Number of days: 2 Introducer 08/01/24 Internal jugular Left (Active) Number of days: 2 Arterial Line 08/01/24 Left Brachial (Active) Number of days: 2 Implantable Port 03/30/24 Right Chest Single lumen port (Active) Number of days: 126 Urethral Catheter Temperature probe 14 Fr. (Active) Number of days: 2 Chest Tube Left Pleural (Active) Number of days: 1 Chest Tube Right Pleural (Active) Number of days: 1 Chest Tube 1 Mediastinal (Active) Number of days: 1 NG/OG/Feeding Tube Right nostril (Active) Number of days: 0 Objective Cognition: Overall Cognitive Status: Within Functional Limits Orientation Level: Oriented X4 Insight: Mild (Pt verbalized understanding to reason for NPO, however, continued to ask) Impulsive: Within functional limits Home Living: Type of Home: House Lives With: Friends (One friend) Home Layout: Able to live on main level with bedroom/bathroom, One level Home Living Comments: Limited information optained from pt d/t fatigue Prior Function: Level of [place]: Independent with ADLs and functional transfers, Independent with homemaking with ambulation Receives Help From: Friends (Friend she lives with) ADL Assistance: Independent Homemaking Assistance: Independent Ambulatory Assistance: Independent IADL History: ADL: Eating Assistance: Minimal Eating Deficit: Setup, Supervision/safety, Increased time to complete Grooming Assistance: Minimal Grooming Deficit: Setup, Supervision/safety, Increased time to complete Bathing Assistance: Moderate Bathing Deficit: Steadying, Setup, Supervision/safety, Increased time to complete , Right lower legincluding foot, Left lower leg including foot UE Dressing Assistance: Minimal UE Dressing Deficit: Steadying, Setup, Verbal cueing, Supervision/safety, Increased time to complete LE Dressing Assistance: Moderate LE Dressing Deficit: Steadying, Verbal cueing, Supervision/safety, Increased time to complete, Tie shoes, Don/doff R sock, Don/doff L sock, Thread RLE into pants, Thread LLE into pants, Thread RLE into underwear, Thread LLE into underwear, Pull up over hips, Fasteners, Don/doff R shoe, Don/doff L shoe Toileting Assistance with Device: Moderate Toileting Deficit: Steadying, Supervison/safety, Increased time to complete, Clothing management up, Clothing management down Activity Tolerance: Endurance: Tolerates 10 - 20 min exercise with multiple rests Early Mobility/Exercise Safety Screen: Proceed with mobilization - No exclusion criteria met Balance: Static Sitting Balance Static Sitting-Balance Support: No upper extremity supported Static Sitting-Level of Assistance: Close supervision Static Sitting-Comment/Number of Minutes: Intermittent CGA for returning to midline, hand placement Bed Mobility/Transfers: Bed Mobility Bed Mobility: Yes Bed Mobility 1 Bed Mobility 1: Supine to sitting Level of Assistance 1: Minimum assistance, Minimal verbal cues Bed Mobility Comments 1: Pt engaged in bed mobility with min A for trunk elevation, cues for initiation Bed Mobility 2 Bed Mobility 2: Sitting to supine Level of Assistance 2: Moderate assistance, +2 Bed Mobility Comments 2: Mod A x2 d/t pt fatigue following activity. Use of draw sheet Functional Mobility Functional Mobility Performed: Yes Functional Mobility 1 Surface 1: Level tile Assistance 1: Minimum assistance, Arm in arm assistance (Min x2) Comments 1: Pt took x3 side steps L to head of bed with min A x2 for arm-in-arm support. Noted dizziness and Transfers Transfer: Yes Transfer 1 Transfer From 1: Sit to, Stand to Transfer to 1: Stand, Sit Technique 1: Sit to stand, Stand to sit Transfer Level of Assistance 1: Moderate assistance, +2 Trials/Comments 1: Mod A for initiation, verbal cues for posture IADL's: Vision: and Vision - Complex Assessment Ocular Range of Motion: Within Functional Limits Sensation: Light Touch: No apparent deficits Strength: Strength Comments: BUE WFL as observed in use during mobility Perception: Inattention/Neglect: Appears intact Coordination: Movements are Fluid and Coordinated: Yes Hand Function: Hand Function Gross Grasp: Functional Extremities: , , , and Outcome Measures: [facility] Daily Activity Putting on and taking off regular lower body clothing: A lot Bathing (including washing, rinsing, drying): A lot Putting on and taking off regular upper body clothing: A little Toileting, which includes using toilet, bedpan or urinal: A lot Taking care of personal grooming such as brushing teeth: A little Eating Meals: A little Daily Activity - Total Score: 15 ICU Mobility Screen Early Mobility/Exercise Safety Screen: Proceed with mobilization - No exclusion criteria met, Education Documentation Body Mechanics, taught by FAUZIA Smith at 08/02/2024 3:32 PM. Learner: Patient Readiness: Acceptance Method: Explanation Response: Verbalizes Understanding Education Comments No comments found. Goals: Encounter Problems Encounter Problems (Active) ADLs Pt will demonstrate increased independence by completing LB dressing seated at EOB with min A Start: 08/02/24 Expected End: 08/16/24 Pt will demonstrate increased independence by completing UB dressing seated at EOB with SBA Start: 08/02/24 Expected End: 08/16/24 COGNITION/SAFETY Pt will complete self-care task using energy conservation strategies with min cues in order to increase ADL independence Start: 08/02/24 Expected End: 08/16/24 EXERCISE/STRENGTHENING Pt will increase endurance to tolerate 15 min of activity with no more than 1 rest break in order to increase ability to engage in ADL completion. Start: 08/02/24 Expected End: 08/16/24 MOBILITY Pt will demonstrate increased independence by completing functional mobility across room for ADL engagement with min A Start: 08/02/24 Expected End: 08/16/24 08/03/24 at 1:08 PM FAUZIA SMITH Rehab Office: [phone] Cosigned by Claudia aRo OT at 08/03/2024 1:43 PM EDT * Claudia Rao OT - 08/02/2024 11:23 AM EDT Occupational Therapy Therapy Communication Note Patient Name: Lzibeth Nixon Department: [facility] [place] [id number] CR NONV1 Room: Today's Date: 08/02/2024 Discipline: Occupational Therapy Missed Visit Reason: Missed Visit Reason: (Pt with increased respiratory needs, currently on Bipap.No OT at this time.) Missed Time: Attempt * Kailey Glasgow, PT - 08/02/2024 11:18 AM EDT Physical Therapy Therapy Communication Note Patient Name: Lizbeth Nixon Department: [place] [id number] CR NONV1 Room: Today's Date: 08/02/2024 Discipline: Physical Therapy Missed Visit Reason: Missed Visit Reason: (1016. Pt with increased respiratory needs. Will reattempt as appropriate.) Missed Time: Attempt Comment: * Raquel Jurado PA-C - 08/02/2024 8:09 AM EDT CTICU Progress Note Lizbeth Zepeda Hussain/[id number] Admit Date: 08/01/2024 Hospital Length of Stay: 1 ICU Length of Stay: 17h CT SURGEON: SUBJECTIVE: Extubated. Respiratory acidosis requiring BiPAP. Increased pain, give one time dose of robaxin. Epi weaned off. Failed swallow. MEDICATIONS Infusions: lactated Ringer's, Last Rate: 20 mL/hr (08/02/24 0700) lactated Ringer's, Last Rate: 5 mL/hr (08/02/24 0700) Scheduled: acetaminophen, 975 mg, q6h albumin human, 12.5 g, Once aspirin, 81 mg, Daily atorvastatin, 80 mg, Nightly calcium gluconate, 1 g, Once calcium gluconate, 1 g, Once ceFAZolin, 2 g, q8h hydrALAZINE, 10 mg, TID HYDROmorphone, 0.2 mg, Once insulin lispro, 0-15 Units, q4h lactated Ringer's, 500 mL, Once lidocaine, 1 patch, Daily oxygen, , Continuous - Inhalation pantoprazole, 40 mg, Daily before breakfast Or pantoprazole, 40 mg, Daily before breakfast polyethylene glycol, 17 g, BID sertraline, 100 mg, Daily PRN: alteplase, 2 mg, PRN calcium gluconate, 1 g, q6h PRN calcium gluconate, 2 g, q6h PRN dextrose, 25 g, q15 min PRN Or glucagon, 1 mg, q15 min PRN HYDROmorphone, 0.2 mg, q4h PRN magnesium sulfate, 2 g, q6h PRN naloxone, 0.2 mg, q5 min PRN ondansetron, 4 mg, q8h PRN Or ondansetron, 4 mg, q8h PRN oxyCODONE, 10 mg, q4h PRN oxyCODONE, 5 mg, q4h PRN potassium chloride, 20 mEq, q6h PRN potassium chloride, 40 mEq, q6h PRN PHYSICAL EXAM: Visit Vitals BP 143/60 Pulse 75 Temp 37.1 C (98.8 F) (Bladder) Resp 13 Ht 1.524 m (5') Wt 65.1 kg (143 lb 8.3 oz) LMP (LMP Unknown) SpO2 94% BMI 28.03 kg/m OB Status Postmenopausal Smoking Status Former BSA 1.66 m Wt Readings from Last 5 Encounters: 08/01/24 65.1 kg (143 lb 8.3 oz) 07/24/24 66.2 kg (145 lb 15.1 oz) 07/07/24 65.7 kg (144 lb 12.8 oz) 06/28/24 64.8 kg (142 lb 14.4 oz) 06/28/24 64.9 kg (143 lb 3 oz) INTAKE/OUTPUT: I/O last 3 completed shifts: In: 6248.1 (96 mL/kg) [I.V.:528.4 (8.1 mL/kg); Blood:1768; IV Piggyback:3951.7] Out: 4155 (63.8 mL/kg) [Urine:3085 (1.3 mL/kg/hr); Blood:500; Chest Tube:570] Weight: 65.1 kg Vent settings: Vent Mode: Pressure support FiO2 (%): [40 %-80 %] 70 % S RR: [12-18] 12 S VT: [380 mL] 380 mL PEEP/CPAP (cm H2O): [5 cm H20-8 cm H20] 5 cm H20 WV SUP: [5 cm H20-8 cm H20] 5 cm H20 MAP (cm H2O): [11-14] 11 Physical Exam: - CONSTITUTION: Critically ill female lying in bed in CTICU on BiPAP. - NEUROLOGIC: AO x1 and CAM (+). Follows commands and moves all extremities. - CARDIOVASCULAR: Paced VVI - RESPIRATORY: On BiPAP 09/21. Respiratory acidosis. Equal rise/fall of chest. - GI: Abdomen soft, distended, nontender. - : Jay in place with clear, yellow urine. - EXTREMITIES: Warm. Radial pulses +2 and DP pulses +1. - SKIN: Warm and clean. All wounds clean and dressed appropriately. - PSYCHIATRIC: Calm and cooperative. Daily Risk Screen Intubated: No Central line: Yes, for parenteral medication administration Jay: Yes, for accurate I/O in critically ill Images: XR CHEST 1 VIEW 08/02/2024 4:51 am IMPRESSION: 1. Similar appearance of increased pulmonary edema with small pleural effusions suggestive of continued volume overload. 2. Medical devices as detailed above. Endotracheal and enteric tubes have been removed in the interim. 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 She presents s/p redo sternotomy, CABG x 2 and AVR bioprosthetic w/ Dr. Lozano. Plan: NEURO: PMH of Anxiety, CVA x 2 (no deficits). Aox2 and CAM (+). Follows commands and moves all extremities. Acute post operative pain for which patient received one time dose of robaxin overnight. --> - Serial neuro and pain assessments - Increase scheduled Tylenol to extra strength (975mg) - PRN oxycodone - PRN dilaudid for pain - Lidocaine patches - PT Consult, OOB to chair as tolerated, chair position if not tolerated - CAM ICU score qshift - Sleep/wake cycle hygiene - Hold home olanzapine, sertraline, trazodone, flexeril CV: Patient has a history of HOCM, afib, LVH, HTN, HPL, AVR/CABG 2004. Is now status post Redo sternotomy, AVR, Ascending aorta and adryan arch replacement with deep hypothermic circulatory arrest withretrograde perfusion w/ Dr. Lozano. AICD. PPM DDDr 60-120. Pre/Post EF: normal BIV. Weaned off epi overnight. V epicardial wires set VVI @ 50. MAP in 80s. Briefly became hypotensive this morning MAP in the 50s and received 500mL LR. --> - Maintain goal MAP 70-85 - ABG and VBG as needed - Volume resuscitate as clinically indicated - Maintain epicardial wires set VVI @ 50 - PRN hydral for MAP > 85 - Continue ASA - Start atorvastatin 80mg daily - Hold home amlodipine, lisinopril, sotalol PULM: No history of pulmonary disease. Extubated overnight. Placed on BiPAP for respiratory acidosis as a result of hypercarbia. Currently BiPAP 70% 09/21. Chest tubes RPL, LPL, MS with serosanguinousoutput and no air leaks noted. --> - Daily CXR - Utilize BiPAP - Wean FiO2 maintaining SpO2 >92%. - IS q1h and OOB to chair - Chest tubes to wall suction. GI: PMH of Gerd. Failed bedside swallow assessment. --> - Continue PPI - NPO - WATER LEAK REPAIRER consult - Colace/senna BID and miralax BID : CSA-GARRICK Risk Score low. No history of renal disease, baseline creatinine 1.02. Creatinine stable post-op. Jay in place and making adequate UOP. --> - Continue jay catheter for strict I/Os. - Goal UOP 0.5ml/kg/hr - RFP as clinically indicated - Replete electrolytes per CTICU protocol ENDO: No significant PMHx. Stress hyperglycemia appropriately controlled on current regimen. --> - Maintain BG <180 - Insulin per CTICU protocol HEME: Acute blood loss anemia and thrombocytopenia. No s/s of bleeding/coagulopathy. --> - Monitor drain output volume and characteristics - CBC, coags, and fibrinogen post op and as clinically indicated - Continue ASA - Start SQH q8h - SCDs for DVT prophylaxis. - Last type and screen: 08/01 Oncology: -hx of breast cancer s/p 3cycles of gem/carbo with clinical response ID: Afebrile, no current indications of infection. MRSA 07/24 negative.--> - Trend temp q4h - Periop cefazolin x 48hrs Skin: No active skin issues. - preventative Mepilex dressings in place on sacrum and heels - change preventative Mepilex weekly or more frequently as indicated (when moist/soiled) - every shift skin assessment per nursing and weekly ICU skin rounds - moisture barrier to be applied with tamera care - active skin problems addressed with nursing on daily rounds Proph: SCDs PPI SQH G: Line Left IJ MAC w Minimac placed 08/01 Left brachial a-line placed 08/01 Mediport-not accessed Jay 08/01 F: Family: will update at bedside postoperatively. A,B,C,D,E,F,G: reviewed I personally spent 40 minutes of critical care time directly and personally managing the patient exclusive of separately billable procedures. Dispo: CTICU care for now. CTICU TEAM PHONE [phone] * Renay Phelan, - 08/01/2024 6:48 PM EDT Patient seen, evaluated, and discussed with the KATHY and fellow. I have personally obtained celestin components of the history and physical and have performed my own medical decision making. 69 year old female with history of bicuspid aortic valve and CAD s/p AVR/CABG now s/p redo AVR/CABGx2 with ascending aorta and hemiarch replacement with 15 minutes of circ arrest with Dr. Lozano. Arrived to CTICU on epinephrine and norepinephrine infusions. Reportedly normal biventricular function. Neuro: Reverse neuromuscular blockade and wean sedation for neuro exam when appropriate. History ofCVA without residual deficit, history of carotid stenosis. Pain control. PT/OT when extubated. Delirium precautions. CV: History of bicuspid AV s/p AVR, CAD s/p CABG, HOCM, afib, hypertension, hyperlipidemia with AVR/CABG in 2004. Now s/p re-do AVR/CABGx2 with asc. Aorta replacement and hemiarch under circ arrest x15 minutes. Arrived on epinephrine and norepinephrine, wean as able. Normal function biventricularlyreported. AICD and PPM in place, device nurse consulted for interrogation. Epicardial wires VVI backup. Pulm: Intubated post-op and on ventilator. Wean to CPAP and extubation as appropriate. Monitor chest tube output. : Monitor urine output and optimize electrolytes. GI: NPO, PPI. History of GERD. Heme: Acute blood loss anemia and thrombocytopenia. Monitor for transfusion indication. SCDs for DVT prophylaxis. Aspirin within 6 hrs per protocol. Anticipate SQH POD1. ID: Perioperative antibiotics. Endo: Glycemic control with SSI. Oncology: History of breast cancer with chemo via right chest mediport. Dispo: Admit to CTICU. This critically ill patient continues to be at risk for clinically significant deterioration / failure due to the above mentioned dysfunctional, unstable organ systems. I have personally identified and managed all complex critical care issues to prevent aforementioned clinical deterioration. Critical care time is spent at bedside and/or the immediate area and has included, but is not limited to, the review of diagnostic tests, labs, radiographs, serial assessments of hemodynamics, respiratory status, ventilatory management, review of consult team recommendations, and family updates. Time spent in procedures and teaching are reported separately. Critical Care Time: 38 minutes. * iMki Weeks RPh - 07/31/2024 4:05 PM EDT Pharmacy Medication History Review Lizbeth Nixon is a 69 y.o. female who is planned to be admitted for Aneurysm of ascending aorta without rupture ([facility] [place] Pharmacy called the patient prior to their scheduled procedure and reviewed the patient's [id number] medications for accuracy. Medications ADDED: none Medications CHANGED: none Medications REMOVED: none Please review updated prior to admission medication list and comments regarding how patient may be taking medications differently by going to Admission tab --> Admission Orders --> Admit Orders/ Review prior to admission medications. Preferred pharmacy and allergies to be confirmed with patient by nursing the day of procedure. Sources used to complete the med history include out patient fill history, OARRS, and patient interview who was a great historian. Below are additional concerns with the patient's LABORATORY IMMUNOLOGIST list. none Miki Weeks RPh Meds Ambulatory [facility] Please reach out via Secure Chat for questions documented in this 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 She presents s/p redo sternotomy, CABG x 2 (SVG-PDA and SVG-SVG previous graft), AVR bioprosthetic and ascending Aorta/Adryan- Arch w/ Dr. Lozano on 08/01. 08/01/2024 OPERATION: by Ruel Lozano REDO Replacement Aortic Valve w/21mm Avalus Ultra, REDO Cabg x 2 w/Right Saphenous Vein, Open Saphenous Vein [place], SVG - PDA, SVG to left sided SVG, REDO Median Sternotomy, Right Femoral Arterial and Venous Exploration Replacement of Ascending Aorta w/28mm x 8mm Ante-Roberto Gelweave, Hypothermic Circulatory Arrest, Retrograde Cereberal Perfusion Echo Pre/Post: normal BIV, moderate LVH Chest Tubes/Drains: RPL, LPL, MS Temporary wires location/setting: V wires CTICU course: uneventful Transferred to the floor 08/04 Floor Course: - Patient was diuresed for fluid volume overload post cardiac surgery; Preop weight: Weight: 65.1 kg (143 lb 8.3 oz)kg, discharge wt: 62.1 kg BP 125/71 (BP Location: Right arm, Patient Position: Sitting) Pulse 87 Temp 36.1 C (97 F) (Temporal) Resp 18 Ht 1.524 m (5') Wt 63.4 kg (139 lb 11.2 oz) LMP (LMP Unknown) SpO2 93% BMI27.28 kg/m - On ASA, statin, BB, by discharge - Epicardial wires pulled on 08/08 - telemetry at discharge SR 70s-80s - PPM DDDr 60-120; device interrogated on on 08/04 back on Home setting Chronic diastolic heart failure with EF 70 % , HOCM Post op dysphagia Speech consulted; 08/08 Passed MBS per Speech Ok to resumed regular diet no restriction; tolerating diet at discharge 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 ( wears glasses); Bilateral carotid stenosis Serial neuro and pain assessments, continue ASA Hypertension: home meds norvasc 10mg daily, lisinopril 40mg daily. Resumed low dose lisinopril 08/05, holding home norvasc Hyperlipidemia: home rosuvastatin 20mg daily GERD: home pantoprazole 40mg daily Anxiety/Depression: home sertraline 100mg daily, trazodone 100mg at bedtime for sleep, olanzapine 2.5 mg daily at bedtime OA PT/OT OARRS reviewed on 08/07/2024 Recent scripts: 05/17/24, Medication: Oxycodone-Acetaminophen 5-325 , Qty: 20, Days supply: 7, prescribed by Amber MURILLO 05/13/24, Medication: Oxycodone-Acetaminophen 5-325 , Qty: 9, Days supply: 30, prescribed by [facility] 04/30/24, Medication: Oxycodone-Acetaminophen 5-325 , Qty: 10, Days supply: 4, prescribed by Jesus Luu - 2v CXR done 08/06 - Postop echo done 08/07 - Cardiac rehab referral was placed - PT recs home and low intensity therapy - Anticipate discharge to home with homecare Discharged on 08/09; POD # 8 s/p Redo sternotomy, CABG x 2 (SVG-PDA and SVG-SVG previous graft), AVR, Ascending aorta and adryan arch replacement 08/[address] Lozano On day of discharge, vital signs were stable and no acute distress was noted. All questions were answered. After VS and labs were reviewed it was determined the patient was stable for discharge. Hospital day of discharge management- spent >30 minutes coordinating the discharge and counseling/educating patient and family regarding discharge instructions. Past Medical History: Diagnosis Date Anxiety Aortic valve insufficiency perivalvular aortic valve insufficiency- scheduled for surgery with Dr. Lozano. Arrhythmia Ventricular tachycardia Arthritis Ascending aorta dilatation (CMS-HCC) 05/2024-Dilated ascending aorta measuring up to 4.8 cm within the mid ascending aorta Ascending aorta dilation (CMS-HCC) s/p repair abdominal aortic aneurysm Breast cancer (Multi) Right Breast-S/p 3 cycles of gem/carbo with clinical response in breast Cerebral vascular accident (Multi) CVA x2-no deficits CHF (congestive heart failure) Congestive heart failure 12/01/2023 diastolic LVEF 70% BY 02/2012 STRESS NYHA CLASS II Coronary artery disease s/p CABG x3 Depression Dizziness GERD (gastroesophageal reflux disease) controlled with protonix HOCM (hypertrophic obstructive cardiomyopathy) (Multi) 12/01/2023 Hx of transfusion of platelets Transfused 05/2024 Hyperlipidemia Hypertension Irregular heart beat A-Fib s/p AICD Joint pain Occlusion and stenosis of bilateral carotid arteries 12/01/2023 Old myocardial infarction Other chest pain 12/01/2023 Presence of combination internal cardiac defibrillator (ICD) and pacemaker 03/2024 Last device check--generator replacement 06/2023 Shortness of breath ROBERT TIA (transient ischemic attack) Vision loss CVA in left eye, wears glasses Surgical History Past Surgical History: Procedure Laterality Date ABDOMINAL AORTIC ANEURYSM REPAIR 2005 AORTIC VALVE REPLACEMENT 2005 BREAST BIOPSY CARDIAC CATHETERIZATION CARDIAC VALVE REPLACEMENT CORONARY ARTERY BYPASS GRAFT 2005 CORONARY STENT PLACEMENT x4 HYSTERECTOMY INSERT / REPLACE / REMOVE PACEMAKER 2010 OTHER SURGICAL HISTORY 07/20/2019 Cardioverter defibrillator insertion OTHER SURGICAL HISTORY 07/24/2019 Arterial stent placement TONSILLECTOMY Prescriptions Prior to Admission Medications Prior to Admission Medication Sig Dispense Refill Last Dose amLODIPine (Norvasc) 10 mg tablet Take 0.5 tablets (5 mg) by mouth once daily. aspirin 81 mg EC tablet Take 1 tablet (81 mg) by mouth once daily. calcium carbonate 600 mg calcium (1,500 mg) tablet Take 600 mg by mouth once daily. chlorhexidine (Hibiclens) 4 % external liquid Use as directed daily preoperatively chlorhexidine (Peridex) 0.12 % solution Swish and spit with 15ml of solution the night before and morning of surgery. Do not swallow. cyclobenzaprine (Flexeril) 10 mg tablet Take 1 tablet (10 mg) by mouth 3 times a day as needed for muscle spasms (Pain). lisinopril 40 mg tablet Take 1 tablet (40 mg) by mouth once daily. melatonin 10 mg tablet Take 1 tablet (10 mg) by mouth as needed at bedtime. pantoprazole (ProtoNix) 40 mg EC tablet Take 1 tablet (40 mg) by mouth once daily in the morning. Take before meals. rosuvastatin (Crestor) 20 mg tablet Take 1 tablet (20 mg) by mouth once daily. sertraline (Zoloft) 100 mg tablet Take 1 tablet (100 mg) by mouth once daily. sotalol (Betapace) 120 mg tablet Take 1 tablet (120 mg) by mouth every 12 hours. traZODone (Desyrel) 100 mg tablet Take 1 tablet (100 mg) by mouth as needed at bedtime for sleep. loratadine (Claritin) 10 mg tablet Take 1 tablet (10 mg) by mouth once daily. To be taken the day of chemotherapy and for 5 days following each infusion nitroglycerin (Nitrostat) 0.[address] 1 tablet (0.4 mg) under the tongue every 5 minutesif needed for chest pain. OLANZapine (ZyPREXA) 2.5 mg tablet Take 1 tablet (2.5 mg) by mouth once daily at bedtime Allergies: Grass pollen and House dust mite Social History Tobacco Use Smoking status: Former Current packs/day: 0.00 Types: Cigarettes Quit date: 2004 Years since quittin. Passive exposure: Never Smokeless tobacco: Never Vaping Use Vaping status: Never Used Substance Use Topics Alcohol use: Never Drug use: Never Pertinent Physical Exam At Time of Discharge Physical Exam Please see progress note of 08/09/2024 for physical exam Home Medications Medication List START taking these medications acetaminophen 325 mg tablet; Commonly known as: Tylenol; Take 2 tablets (650 mg) by mouth every 6 hours if needed (for mild to moderate pain). docusate sodium 100 mg capsule; Commonly known as: Colace; Take 1 capsule (100 mg) by mouth 2 times a day as needed for constipation. iron polysaccharides 150 mg iron capsule; Commonly known as: Nu-Iron,Niferex; Take 1 capsule (150 mg) by mouth once daily. metoprolol tartrate 50 mg tablet; Commonly known as: Lopressor; Take 1 tablet by mouth 2 times a day. multivitamin with minerals tablet; Take 1 tablet by mouth once daily.; Start taking on: August 10, 2024 oxyCODONE-acetaminophen 5-325 mg tablet; Commonly known as: Percocet; Take 1 tablet by mouth every 6 hours if needed for severe pain (7 - 10) for up to 3 days. polyethylene glycol 17 gram packet; Commonly known as: Glycolax, Miralax; Take 17 g by mouth once daily as needed (constipation). CHANGE how you take these medications lisinopril 5 mg tablet; Take 1 tablet (5 mg) by mouth once daily.; Start taking on: August 10, 2024; What changed: medication strength, how much to take CONTINUE taking these medications aspirin 81 mg EC tablet calcium carbonate 600 mg calcium (1,500 mg) tablet cyclobenzaprine 10 mg tablet; Commonly known as: Flexeril; Take 1 tablet (10 mg) by mouth 3 times a day as needed for muscle spasms (Pain). loratadine 10 mg tablet; Commonly known as: Claritin; Take 1 tablet (10 mg) by mouth once daily. To be taken the day of chemotherapy and for 5 days following each infusion melatonin 10 mg tablet OLANZapine 2.5 mg tablet; Commonly known as: ZyPREXA; Take 1 tablet (2.5 mg) by mouth once daily at bedtime. pantoprazole 40 mg EC tablet; Commonly known as: ProtoNix rosuvastatin 20 mg tablet; Commonly known as: Crestor sertraline 100 mg tablet; Commonly known as: Zoloft traZODone 100 mg tablet; Commonly known as: Desyrel STOP taking these medications amLODIPine 10 mg tablet; Commonly known as: Norvasc chlorhexidine 0.12 % solution; Commonly known as: Peridex chlorhexidine 4 % external liquid; Commonly known as: Hibiclens nitroglycerin 0.4 mg SL tablet; Commonly known as: Nitrostat sotalol 120 mg tablet; Commonly known as: Betapace Outpatient Follow-Up Future Appointments Date Time Provider Department Center 09/04/2024 2:00 PM [facility] [place] [id number] NURSE [id number] [facility] 09/20/2024 10:20 AM Marcelo Davey MD [id number] [facility] 09/27/2024 11:45 AM Cindy Bae MD [id number] [facility] 09/29/2024 9:00 AM Ruel Lozano MD [id number] Academic WILEY Reynolds documented in this [facility] Work Phone: [phone] 542-796010-22-2024 Miscellaneous Notes* Significant Event - WILEY Cyr - 08/08/2024 3:20 PM EDT Epicardial Wires 2 ventricular epicardial wires pulled without difficulty. Patient tolerated well. Bedrest for 1 hour with VS as per pacer wire removal guidelines. WILEY Cyr Cardiac Surgery KATHY 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 She presents s/p redo sternotomy, CABG x 2 (SVG-PDA and SVG-SVG previous graft), AVR bioprosthetic and ascending Aorta/Adryan- Arch w/ Dr. Lozano on 08/01. 08/01/2024 OPERATION: by Ruel Lozano REDO Replacement Aortic Valve w/21mm Avalus Ultra, REDO Cabg x 2 w/Right Saphenous Vein, Open Saphenous Vein [place], SVG - PDA, SVG to left sided SVG, REDO Median Sternotomy, Right Femoral Arterial and Venous Exploration Replacement of Ascending Aorta w/28mm x 8mm Ante-Roberto Gelweave, Hypothermic Circulatory Arrest, Retrograde Cereberal Perfusion Echo Pre/Post: normal BIV, moderate LVH Chest Tubes/Drains: RPL, LPL, MS Temporary wires location/setting: V wires CTICU course: uneventful Transferred to the floor 08/04 Floor Course: - Patient was diuresed for fluid volume overload post cardiac surgery; Preop weight: Weight: 65.1 kg (143 lb 8.3 oz)kg, discharge wt: 62.1 kg BP 125/71 (BP Location: Right arm, Patient Position: Sitting) Pulse 87 Temp 36.1 C (97 F) (Temporal) Resp 18 Ht 1.524 m (5') Wt 63.4 kg (139 lb 11.2 oz) LMP (LMP Unknown) SpO2 93% BMI27.28 kg/m - On ASA, statin, BB, by discharge - Epicardial wires pulled on 08/08 - telemetry at discharge SR 70s-80s - PPM DDDr 60-120; device interrogated on on 08/04 back on Home setting Chronic diastolic heart failure with EF 70 % , HOCM Post op dysphagia Speech consulted; 08/08 Passed MBS per Speech Ok to resumed regular diet no restriction; tolerating diet at discharge 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 ( wears glasses); Bilateral carotid stenosis Serial neuro and pain assessments, continue ASA Hypertension: home meds norvasc 10mg daily, lisinopril 40mg daily. Resumed low dose lisinopril 08/05, holding home norvasc Hyperlipidemia: home rosuvastatin 20mg daily GERD: home pantoprazole 40mg daily Anxiety/Depression: home sertraline 100mg daily, trazodone 100mg at bedtime for sleep, olanzapine 2.5 mg daily at bedtime OA PT/OT OARRS reviewed on 08/07/2024 Recent scripts: 05/17/24, Medication: Oxycodone-Acetaminophen 5-325 , Qty: 20, Days supply: 7, prescribed by Amber MURILLO 05/13/24, Medication: Oxycodone-Acetaminophen 5-325 , Qty: 9, Days supply: 30, prescribed by [facility] 04/30/24, Medication: Oxycodone-Acetaminophen 5-325 , Qty: 10, Days supply: 4, prescribed by Jesus Luu - 2v CXR done 08/06 - Postop echo done 08/07 - Cardiac rehab referral was placed - PT recs home and low intensity therapy - Anticipate discharge to home with homecare Discharged on 08/09; POD # 8 s/p Redo sternotomy, CABG x 2 (SVG-PDA and SVG-SVG previous graft), AVR, Ascending aorta and adryan arch replacement 08/[address] Lozano On day of discharge, vital signs were stable and no acute distress was noted. All questions were answered. After VS and labs were reviewed it was determined the patient was stable for discharge. Hospital day of discharge management- spent >30 minutes coordinating the discharge and counseling/educating patient and family regarding discharge instructions. Past Medical History: Diagnosis Date Anxiety Aortic valve insufficiency perivalvular aortic valve insufficiency- scheduled for surgery with Dr. Lozano. Arrhythmia Ventricular tachycardia Arthritis Ascending aorta dilatation (CMS-HCC) 05/2024-Dilated ascending aorta measuring up to 4.8 cm within the mid ascending aorta Ascending aorta dilation ([facility]-HCC) s/p repair abdominal aortic aneurysm Breast cancer (Multi) Right Breast-S/p 3 cycles of gem/carbo with clinical response in breast Cerebral vascular accident (Multi) CVA x2-no deficits CHF (congestive heart failure) Congestive heart failure 12/01/2023 diastolic LVEF 70% BY 02/2012 STRESS NYHA CLASS II Coronary artery disease s/p CABG x3 Depression Dizziness GERD (gastroesophageal reflux disease) controlled with protonix HOCM (hypertrophic obstructive cardiomyopathy) (Multi) 12/01/2023 Hx of transfusion of platelets Transfused 05/2024 Hyperlipidemia Hypertension Irregular heart beat A-Fib s/p AICD Joint pain Occlusion and stenosis of bilateral carotid arteries 12/01/2023 Old myocardial infarction Other chest pain 12/01/2023 Presence of combination internal cardiac defibrillator (ICD) and pacemaker 03/2024 Last device check--generator replacement 06/2023 Shortness of breath ROBERT TIA (transient ischemic attack) Vision loss CVA in left eye, wears glasses Surgical History Past Surgical History: Procedure Laterality Date ABDOMINAL AORTIC ANEURYSM REPAIR 2004 AORTIC VALVE REPLACEMENT 2004 BREAST BIOPSY CARDIAC CATHETERIZATION CARDIAC VALVE REPLACEMENT CORONARY ARTERY BYPASS GRAFT 2004 CORONARY STENT PLACEMENT x4 HYSTERECTOMY INSERT / REPLACE / REMOVE PACEMAKER 2010 OTHER SURGICAL HISTORY 07/20/2019 Cardioverter defibrillator insertion OTHER SURGICAL HISTORY 07/24/2019 Arterial stent placement TONSILLECTOMY Prescriptions Prior to Admission Medications Prior to Admission Medication Sig Dispense Refill Last Dose amLODIPine (Norvasc) 10 mg tablet Take 0.5 tablets (5 mg) by mouth once daily. aspirin 81 mg EC tablet Take 1 tablet (81 mg) by mouth once daily. calcium carbonate 600 mg calcium (1,500 mg) tablet Take 600 mg by mouth once daily. chlorhexidine (Hibiclens) 4 % external liquid Use as directed daily preoperatively chlorhexidine (Peridex) 0.12 % solution Swish and spit with 15ml of solution the night before and morning of surgery. Do not swallow. cyclobenzaprine (Flexeril) 10 mg tablet Take 1 tablet (10 mg) by mouth 3 times a day as needed for muscle spasms (Pain). lisinopril 40 mg tablet Take 1 tablet (40 mg) by mouth once daily. melatonin 10 mg tablet Take 1 tablet (10 mg) by mouth as needed at bedtime. pantoprazole (ProtoNix) 40 mg EC tablet Take 1 tablet (40 mg) by mouth once daily in the morning. Take before meals. rosuvastatin (Crestor) 20 mg tablet Take 1 tablet (20 mg) by mouth once daily. sertraline (Zoloft) 100 mg tablet Take 1 tablet (100 mg) by mouth once daily. sotalol (Betapace) 120 mg tablet Take 1 tablet (120 mg) by mouth every 12 hours. traZODone (Desyrel) 100 mg tablet Take 1 tablet (100 mg) by mouth as needed at bedtime for sleep. loratadine (Claritin) 10 mg tablet Take 1 tablet (10 mg) by mouth once daily. To be taken the day of chemotherapy and for 5 days following each infusion nitroglycerin (Nitrostat) 0.[address] 1 tablet (0.4 mg) under the tongue every 5 minutesif needed for chest pain. OLANZapine (ZyPREXA) 2.5 mg tablet Take 1 tablet (2.5 mg) by mouth once daily at bedtime Allergies: Grass pollen and House dust mite Social History Tobacco Use Smoking status: Former Current packs/day: 0.00 Types: Cigarettes Quit date: 2004 Years since quittin.8 Passive exposure: Never Smokeless tobacco: Never Vaping Use Vaping status: Never Used Substance Use Topics Alcohol use: Never Drug use: Never * Care Plan - Soco Lima RN - 08/08/2024 9:36 AM EDT The patient's goals for the shift include The clinical goals for the shift include pt will remain HDS. * Care Plan - Ghislaine Petersen RN - 08/07/2024 10:26 PM EDT The patient's goals for the shift include rest and pain management. The clinical goals for the shift include Pt will remain HDS throughout shift * Documentation Clarification Note - Raquel Jurado PA-C - 08/06/2024 7:02 AM EDT PATIENT: LIZBETH NIXON : 1955 ADMIT DATE: 08/01/2024 5:28 AM DISCH DATE: RESPONDING PROVIDER #: [id number] PROVIDER RESPONSE TEXT: Acute respiratory acidosis CDI QUERY TEXT: Clarification Instruction: Based on your assessment of the patient and the clinical information, please provide the requested documentation by clicking on the appropriate radio button and enter any additional information if prompted. Question: Is there a diagnosis indicative of the clinical information When answering this query, please exercise your independent professional judgment. The fact that a question is being asked, does not imply that any particular answer is desired or expected. 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 She presents s/p redo sternotomy, CABG x 2 and AVR bioprosthetic w/ Dr. Lozano from 08/02 PN Clinical Indicators: 08/02 attending PN Extubated but with hypercarbic respiratory acidosis, BiPAPtoday; breaks with AirVo as needed 08/02 PN Respiratory acidosis requiring BiPAP. Extubated overnight. Placed on BiPAP for respiratory acidosis as a result of hypercarbia. Currently BiPAP 70% 09/21 08/02 06:20 ABG 7.26, 58, 71, 26.0 08/02 08:21 ABG 7.30, 56, 108, 27.6 08/02 12:20 ABG 7.28, 60, 78, 28.2 Treatment: O2 supplementation with Bipap and Airvo after extubated. Monitor ABG. Monitor respiratory status. Risk Factors: Surgery 08/01. Former smoker. Options provided: -- Acute respiratory acidosis -- Acute Hypercapnic Respiratory Failure -- Acute Pulmonary Insufficiency following surgery which was clinically significant altering or extending post-operative care -- Other - I will add my own diagnosis -- Refer to Clinical Documentation Reviewer Query created by: Elza Pinto on 08/03/2024 6:05 PM Electronically signed by: RAQUEL JURADO PA-C 08/06/2024 7:02 AM * Care Plan - Donald Rdz RN - 08/05/2024 2:54 PM EDT The clinical goals for the shift include Pt will remain Hemodynamically stable and free of falls throughout shift * Care Plan - Ghislaine Petersen RN - 08/05/2024 4:22 AM EDT The patient's goals for the shift include rest. The clinical goals for the shift include Pt will remain HDS throughout shift * Care Plan - Devonte Leonard RN - 08/03/2024 11:38 PM EDT Problem: Skin Goal: Decreased wound size/increased tissue granulation at next dressing change Outcome: Progressing Goal: Participates in plan/prevention/treatment measures Outcome: Progressing Goal: Prevent/manage excess moisture Outcome: Progressing Goal: Prevent/minimize sheer/friction injuries Outcome: Progressing Goal: Promote/optimize nutrition Outcome: Progressing Goal: Promote skin healing Outcome: Progressing * Op Note - Ruel Lozano MD - 08/03/2024 11:53 AM EDT REDO Replacement Aortic Valve w/21mm Avalus Ultra, REDO Cabg x 2 w/Right Saphenous Vein, Open Saphenous Vein [place], SVG - PDA, SVG to left sided SVG, REDO Median Sternotomy, Right Femoral Arterial and Venous Exploration, Replacement of Ascending Aorta w/28mm x 8mm Ante-Roberto Gelweave, Hypothermic Ci rculatory Arrest, Retrograde Cereberal Perfusion Operative Note Date: 08/01/2024 OR Location: [facility] OR Name: Lizbeth Nixon, : 1955, Age: 69 y.o., , Sex: female Diagnosis Pre-op Diagnosis * Aneurysm of ascending aorta without rupture (CMS-HCC) [I71.21] Post-op Diagnosis * Aneurysm of ascending aorta without rupture (CMS-HCC) [I71.21] Procedures REDO Replacement Aortic Valve w/21mm Avalus Ultra, REDO Cabg x 2 w/Right Saphenous Vein, Open Saphenous Vein [place], SVG - PDA, SVG to left sided SVG, REDO Median Sternotomy, Right Femoral Arterial and Venous Exploration [id number] - [place] RPLCMT PROST AORTIC VALVE OPEN XCP HOMOGRF/STENT Replacement of Ascending Aorta w/28mm x 8mm Ante-Roberto Gelweave, Hypothermic Circulatory Arrest, Retrograde Cereberal Perfusion [id number] - [place] -AORT GRF W/CARD BYP F/AORTIC DS OTH/THN DSJ Surgeons * Reul Lozano - Primary Resident/Fellow/Other Electrician Bus: Surgeons and Role: * No surgeons found with a matching role * Procedure Summary Anesthesia: General ASA: IV Anesthesia Staff: Anesthesiologist: Damon Khan MD C-AA: NEVIN Moon Commercial Fisherman: Erik Kumar Estimated Blood Loss: 500 mL Intra-op Medications: Administrations occurring from 0645 to 1540 on 08/01/24: Medication Name Total Dose heparin 1,000 unit/mL injection 1,000 Units sodium chloride 0.9 % irrigation solution 2,000 mL microfibril. collagen hemostat (Ultrafoam) sponge sponge 1 each vancomycin (Vancocin) vial for injection 4 g gentamicin (Garamycin) injection 80 mg albumin human bottle 5% 750 mL calcium chloride 100 mg/mL syringe 1.5 g ceFAZolin (Ancef) vial 1 g 4 g dexmedeTOMIDine 4 mcg/mL in 100 mL NS infusion 172.74 mcg electrolyte-A (Plasmalyte-A) solution Cannot be calculated electrolyte-A (Plasmalyte-A) Cannot be calculated EPINEPHrine (Adrenalin) 4 mg in 0.9% sodium chloride 250 mL (16 mcg/mL) infusion (premix) 0.2 mg EPINEPHrine (Adrenalin) 4 mg in dextrose 5% 250 mL (16 mcg/mL) infusion (premix) 0.07 mg fentaNYL (Sublimaze) injection 50 mcg/mL 300 mcg fibrinogen concentrate (Riastap) injection 1,121 mg heparin injection 1,000 units/mL 26,000 Units insulin regular (HumuLIN R,NovoLIN R) 100 Units in sodium chloride 0.9% 100 mL (1 Units/mL) infusion 3.1 Units insulin regular (HumuLIN R,NovoLIN R) injection 3 Units lactated Ringer's infusion 5.67 mL lactated Ringer's infusion 1.5 mL lidocaine (cardiac) injection 2% prefilled syringe 100 mg lidocaine (Xylocaine) injection 2 % 40 mg magnesium sulfate 50 % injection 2 g mannitol 20 % IV 180 mL methadone (Dolophine) injection 10 mg midazolam PF (Versed) injection 1 mg/mL 2 mg norepinephrine (Levophed) 8 mg in dextrose 5% 250 mL (0.032 mg/mL) infusion (premix) Cannot be calculated norepinephrine (Levophed) 8 mg in sodium chloride 0.9% 250 mL (0.032 mg/mL) infusion (premix) 0.37 mg norepinephrine (Levophed) 16 mcg/mL syringe for Anesthesia 180 mcg phenylephrine (Armando-Synephrine) injection 200 mcg phenylephrine 40 mcg/mL syringe 10 mL 40 mcg propofol (Diprivan) infusion 65.1 mg propofol (Diprivan) injection 10 mg/mL 265.93 mg protamine injection 310 mg rocuronium (ZeMuron) 50 mg/5 mL injection 150 mg sodium bicarbonate injection 1 mEq/mL 150 mEq sugammadex (Bridion) 200 mg/2 mL injection 200 mg tranexamic acid (Cyklokapron) 6,250 mg in sodium chloride 0.9% 312.5 mL (20 mg/mL) infusion 1,976.27 mg vancomycin (Vancocin) 1,000 mg in dextrose 5% 250 mL IV 1 g Intraprocedure I/O Totals None Specimen: ID Type Source Tests Collected by Time 1 : EXPLANTED AORTIC VALVE Tissue HEART VALVE-AORTIC SURGICAL PATHOLOGY EXAM Ruel Lozano MD 08/01/2024 1140 2 : ASCENDING AORTA Tissue AORTA SURGICAL PATHOLOGY EXAM Ruel Lozano MD 08/01/2024 1110 Staff: Carbon Sequestration Plant Manager: Malika Scrub Person: Shakir Carbon Sequestration Plant Manager: Nicole Drains and/or Catheters: Chest Tube Left Pleural (Active) Function -20 cm H2O 08/03/24 0000 Chest Tube Air Leak No 08/03/24 0000 Patency Intervention Tip/tilt 08/03/24 Drainage Description Serosanguineous 08/03/24 Dressing Status Clean;Dry;Occlusive 08/03/24 0400 Site Assessment Clean;Dry;Intact 08/03/24 040 Surrounding Skin Dry;Intact 08/03/24 0000 Output (mL) 0 mL 08/03/24 0700 Chest Tube Right Pleural (Active) Function -20 cm H2O 08/03/24 0000 Chest Tube Air Leak No 08/03/24 Patency Intervention Tip/tilt 08/02/241999 Drainage Description Serosanguineous 08/03/24 Dressing Status Clean;Dry;Occlusive 08/03/24 0400 Site Assessment Clean;Dry;Intact 08/03/24 040 Surrounding Skin Dry;Intact 08/03/24 0000 Output (mL) 20 mL 08/03/24 0700 Chest Tube 1 Mediastinal (Active) Function -20 cm H2O 08/03/24 0000 Chest Tube Air Leak No 08/03/24 0000 Patency Intervention Tip/tilt 08/02/241999 Drainage Description Serosanguineous 08/03/24 Dressing Status Clean;Dry;Occlusive 08/03/24 0400 Site Assessment Clean;Dry;Intact 08/03/24 0400 Surrounding Skin Dry;Intact 08/03/24 0000 Output (mL) 10 mL 08/03/24 0700 Urethral Catheter Temperature probe 14 Fr. (Active) Site Assessment Clean;Skin intact 08/03/24 0015 Collection Container Standard drainage bag 08/02/241999 Securement Method Securing device (Describe) 08/02/241999 Reason for Continuing Urinary Catheterization accurate hourly measurement of urine volume in a critically ill patient that cannot be assessed by other volumes and urine collection strategies 000 Output (mL) 51 mL 08/03/24 1100 [REMOVED] External Urinary Catheter Female (Removed) Tourniquet Times: Implants: Implants Type Name Action Serial No. Implant GRAFT, VASCULAR, IMPREGNATED, WOVEN, GELWEAVE, 8 MM X 15 CM - [id number] - [id number] Used, Not Implanted [id number] Implant PATCH, VASCULAR, MESH, LOW POROSITY, 6 X 6 IN, EPTFE - [id number] Implanted Other Cardiac Implant GRAFT, SNGL BRANCH 28MM - [id number] Implanted [id number] Heart Valve Repair VALVE, AORTIC AVALUS ULTRA, 21MM - [id number] - [id number] Implanted [id number] Other Cardiac Implant PATCH, TACHOSIL, 4.8CM X 4.8CM, ABSORABLE FIBRIN SEALANT - SN/A - [id number] Used, Not Implanted N/A Findings: There were dense pericardial adhesions. The ascending aorta was dilated. The aortic arch was calcified. The bioprosthetic aortic valve leaflets were calcified. The left ventricle and heart were of normal size and demonstrated normal function. The right coronary artery was diffusely diseased however we were able to find a location distally that was suitable for grafting. Indications: Lizbeth Nixon is an 69 y.o. female who is having surgery for Aneurysm of ascending aorta without rupture ([facility] [place]) [I71.21]. The patient has a history of aortic valve replacement and coronary artery bypass grafting. The patient now presents with symptomatic bioprosthetic stenosis and regurgitation, and ascending aortic aneurysm of 5 cm, and coronary artery disease involving her rightcoronary artery. Her previous vein grafts appear on catheterization to be occluded, however she hasa patent left internal thoracic artery to the LAD. The patient was referred for redo aortic valve replacement, replacement of her ascending aorta, and coronary artery bypass grafting. Procedure Details: A redo median sternotomy was performed. Saphenous vein was harvested from her leg. The adhesions along the right side of the heart and aorta were dissected free. The ascending aorta was aneurysmal and the arch. I felt it would be best to cannulate the ascending aorta. The patientwas heparinized. The ascending aorta, SVC, and IVC were individually cannulated for cardiopulmonarybypass and antegrade and retrograde cardioplegia cannulas were placed. The patient was placed on cardiopulmonary bypass and her temperature was cooled to 20 C. When her heart fibrillated aortic cross-clamp was applied just below the aortic cannula and the heart was arrested and protected with cold b lood cardioplegia. The aorta was transected at the sinotubular junction and the old bioprosthetic aortic valve along with all suture and pledget material were carefully removed. The left ventricle and aortic root were then copiously irrigated to remove any debris. At this time the patient had reached 20 C. She was placed in Trendelenburg position and a period of hypothermic circulatory arrest with retrograde cerebral perfusion was begun. The aorta was transected at the underside of the aortic arch. We performed a limited aortic endarterectomy so we could sew graft to the underside of the aortic arch. A 28 mm Gelweave graft was then sewn to the underside of the aortic arch with a running 4-0 Prolene suture. A strip of felt was used as a washer. Theaorticgraftwasthencannulatedforcardiopulmonarybypass systemic perfusion was slowly restarted, aortic arch and head vessels were de-aired, and then the graft was clamped. Systemic perfusion was brought back up to normal and the patient was warmed. Retrograde cerebral perfusion at this time was stopped. The aortic valve was then we replaced with a bovine pericardial aortic valve. It was sutured in place with pledgeted 2-0 sutures. The pledgets were placed on the ventricular side and the valve seated well. The coronary ostia were without ob struction. The Gelweave graft was then sewn to the ascending aorta at the sinotubular junction witha running 4-0 Prolene stitch. A strip of felt was used as a washer. A length of saphenous vein graft was used to bypass the distal right coronary artery. A second length of saphenous vein graft was used to bypass a patent saphenous vein graft going to the left side of the heart. Both distal anastomoses were constructed with running 7-0 suture and prior to completing the anastomoses they were probed and found to be widely patent. The proximal anastomoses of the 2 saphenous vein grafts were then constructed to the ascending aorta with running 6-0 Prolene suture. The heart and ascending aorta were de-aired and aortic cross-clamp was removed. When the patient's heart was completely recovered and thoroughly de-aired, the patient was weaned from cardiopulmonary bypass without difficulty. At this time the patient's temperature was normothermic. Intraoperative transesophageal echocardiography de monstrated similar ventricular function and a well-functioning bovine pericardial aortic valve. Allcannulas were removed and the heparin effect was reversed with protamine. Hemostasis was obtained, mediastinal and pleural chest tubes were placed, right ventricular pacemaker wires were placed on the diaphragmatic surface of the RV, and the wounds were closed in the standard fashion. The patient tolerated the procedure well and was brought to the intensive care unit in stable condition. To sponge counts, instrument counts, and needle counts reported correct by the circulating nurse. The specimen sent to pathology included the ascending aorta and the bioprosthetic aortic valve and the calciumfrom the endarterectomy of the aortic arch. The estimated blood loss was 500 cc. I performed the procedure. Complications: None; patient tolerated the procedure well. Disposition: ICU - intubated and hemodynamically stable. Condition: stable Additional Details: None Attending Attestation: I performed the procedure. Ruel Lozano * Care Plan - Devonte Leonard RN - 08/03/2024 1:42 AM EDT Problem: Skin Goal: Decreased wound size/increased tissue granulation at next dressing change Outcome: Progressing Flowsheets (Taken 08/02/2024 0230) Decreased wound size/increased tissue granulation at next dressing change: Promote sleep for wound healing Protective dressings over bony prominences Goal: Participates in plan/prevention/treatment measures Outcome: Progressing Flowsheets (Taken 08/02/2024 0230) Participates in plan/prevention/treatment measures: Discuss with provider PT/OT consult Increase activity/out of bed for meals Goal: Prevent/manage excess moisture Outcome: Progressing Flowsheets (Taken 08/02/2024229) Prevent/manage excess moisture: Cleanse incontinence/protect with barrier cream Moisturize dry skin Goal: Prevent/minimize sheer/friction injuries Outcome: Progressing Flowsheets (Taken 08/02/2024229) Prevent/minimize sheer/friction injuries: Complete micro-shifts as needed if patient unable. Adjust patient position to relieve pressure points, not a full turn HOB 30 degrees or less Turn/reposition every 2 hours/use positioning/transfer devices Goal: Promote/optimize nutrition Outcome: Progressing Flowsheets (Taken 08/02/2024229) Promote/optimize nutrition: Consume > 50% meals/supplements Discuss with provider if NPO > 2 days Monitor/record intake including meals Offer water/supplements/favorite foods Goal: Promote skin healing Outcome: Progressing Flowsheets (Taken 08/02/2024229) Promote skin healing: Assess skin/pad under line(s)/device(s) Rotate device position/do not position patient on device Turn/reposition every 2 hours/use positioning/transfer devices * Care Plan - Devonte Leonard RN - 08/02/2024 2:31 AM EDT Problem: Skin Goal: Decreased wound size/increased tissue granulation at next dressing change Outcome: Progressing Flowsheets (Taken 08/02/2024229) Decreased wound size/increased tissue granulation at next dressing change: Promote sleep for wound healing Protective dressings over bony prominences Goal: Participates in plan/prevention/treatment measures Outcome: Progressing Flowsheets (Taken 08/02/2024229) Participates in plan/prevention/treatment measures: Discuss with provider PT/OT consult Increase activity/out of bed for meals Goal: Prevent/manage excess moisture Outcome: Progressing Flowsheets (Taken 08/02/2024229) Prevent/manage excess moisture: Cleanse incontinence/protect with barrier cream Moisturize dry skin Goal: Prevent/minimize sheer/friction injuries Outcome: Progressing Flowsheets (Taken 08/02/2024229) Prevent/minimize sheer/friction injuries: Complete micro-shifts as needed if patient unable. Adjust patient position to relieve pressure points, not a full turn HOB 30 degrees or less Turn/reposition every 2 hours/use positioning/transfer devices Goal: Promote/optimize nutrition Outcome: Progressing Flowsheets (Taken 08/02/2024 0230) Promote/optimize nutrition: Consume > 50% meals/supplements Discuss with provider if NPO > 2 days Monitor/record intake including meals Offer water/supplements/favorite foods Goal: Promote skin healing Outcome: Progressing Flowsheets (Taken 08/02/2024 0230) Promote skin healing: Assess skin/pad under line(s)/device(s) Rotate device position/do not position patient on device Turn/reposition every 2 hours/use positioning/transfer devices * Significant Event - Jerrod Epperson RRT - 08/01/2024 10:10 PM EDT 08/01/247 Daily Screen Total RSBI (S) 47.48 Weaning Parameters Weaning Vital Capacity (S) 441 mL Negative Inspiratory Force (NIF) (S) -27 Spontaneous Minute Volume (MV) (S) 5.39 Weaning Tidal Volume (S) 337 mL Respiratory Depth/Rhythm (S) (rr 16) Respiratory Effort (S) Unlabored (RR 16) * Brief Op Note - Ellis Mccrary SA - 08/01/2024 8:36 AM EDT Date: 08/01/2024 OR Location: [facility] OR Name: Lizbeth Nixon, : 1955, Age: 69 y.o., , Sex: female Redo Median Sternotomy Right Femoral Artery and Right Femoral Vein Exploration CABG x 2 with Right Open Saphenous Vein [place] (SVG-PDA and SVG-SVG Left sided Graft from previoussurgery) Aortic Valve Replacement with a 21 mm BIOPROSTHETIC Avalus Ultra Valve Ascending Aorta and Adryan-Arch Replacement with a 28 x 8 mm Gelweave Graft under Deep Hypothermic Circulatory Arrest with Retrograde Cerebral Perfusion Chest Tubes/Drains: Chest tube x 3 (One Left Pleural, One Mediastinal, and One Right Pleural) Temporary Pacing Wires: Ventricular Pacing Wires Placed -Settings: VVI at 80 bpm @ 10 mA Permanent pacer/ICD: Yes -Intra-op/ Postoperative settings: AICD is off Sternotomy performed by: Marta MURILLO Conduit Harvested by: Emmett SHELDON Sternal Wires placed by: Emmett SHELDON Leg/Groin Closure/Cutdown performed by: Emmett SHELDON Cardio Pulmonary Bypass Time: 173 minutes Cross-clamp Time: 132 minutes Circulatory Arrest: Yes Time: 15 minutes Is patient candidate for Emergency Re-sternotomy? Yes -If yes, POD #10 is - August 11 2024 Diagnosis Pre-op Diagnosis * Aneurysm of ascending aorta without rupture (CMS-HCC) [I71.21] Post-op Diagnosis * Aneurysm of ascending aorta without rupture (CMS-HCC) [I71.21] Procedures Replacement Aortic Valve 16738 - [place] RPLCMT PROST AORTIC VALVE OPEN XCP HOMOGRF/STENT Replacement of Ascending Aorta w/28mm x 8mm Ante-Roberto Gelweave, Hypothermic Circulatory Arrest, Retrograde Cereberal Perfusion 66591 - [place] -AORT GRF W/CARD BYP F/AORTIC DS OTH/THN DSJ Surgeons * Ruel Lozano - Primary Resident/Fellow/Other Electrician Bus: Emmett HURD Procedure Summary Anesthesia: Anesthesia type not filed in the log. ASA: IV Anesthesia Staff: Anesthesiologist: Damon Khan MD C-AA: NEVIN Moon Commercial Fisherman: Erik Kumar Estimated Blood Loss: 500 mL Intra-op Medications: Administrations occurring from 0645 to 1540 on 08/01/24: Medication Name Total Dose microfibril. collagen hemostat (Ultrafoam) sponge sponge 1 each vancomycin (Vancocin) vial for injection 4 g gentamicin (Garamycin) injection 80 mg Anesthesia Record Intraprocedure I/O Totals Intake PRBC 700.00 mL Dexmedetomidine 0.00 mL The total shown is the total volume documented since Anesthesia Start was filed. Norepinephrine Drip 0.00 mL The total shown is the total volume documented since Anesthesia Start was filed. Tranexamic Acid 0.00 mL The total shown is the total volume documented since Anesthesia Start was filed. Insulin Drip 0.00 mL The total shown is the total volume documented since Anesthesia Start was filed. Epinephrine Drip 0.00 mL The total shown is the total volume documented since Anesthesia Start was filed. vancomycin (Vancocin) 1,000 mg in dextrose 5% 250 mL IV 270.00 mL Cell Saver 718 mL Total Intake 1688 mL Output Urine 1600 mL Total Output 1600 mL Net Net Volume 88 mL Specimen: ID Type Source Tests Collected by Time 1 : EXPLANTED AORTIC VALVE Tissue HEART VALVE-AORTIC SURGICAL PATHOLOGY EXAM Ruel Lozano MD 08/01/2024 1140 2 : ASCENDING AORTA Tissue AORTA SURGICAL PATHOLOGY EXAM Ruel Lozano MD 08/01/2024 1110 Staff: Carbon Sequestration Plant Manager: Malika Scrub Person: Shakir Carbon Sequestration Plant Manager: Nicole Findings: Aortic Stenosis, CAD, Ascending Aortic Aneurysm Complications: None; patient tolerated the procedure well. Disposition: ICU - intubated and hemodynamically stable. Condition: stable Specimens Collected: ID Type Source Tests Collected by Time 1 : EXPLANTED AORTIC VALVE Tissue HEART VALVE-AORTIC SURGICAL PATHOLOGY EXAM Ruel Lozano MD 08/01/2024 1140 2 : ASCENDING AORTA Tissue AORTA SURGICAL PATHOLOGY EXAM Ruel Lozano MD 08/01/2024 1110 Attending Attestation: I was present and scrubbed for the entire procedure. Ruel Lozano Cosigned by Ruel Lozano MD at 08/03/2024 12:03 PM EDT documented in this [facility] Work Phone: 1(192) 303-874410-22-2024 Hospital Discharge instructions* Discharge Instructions* Daniela Campbell, NEFTALI-CUSTOM STOCK MAKER - 08/08/2024 3:07 PM EDT Don't forget to Keep Your Move in the Tube!! Please refer to the Move in the Tube handout. -- Load bearing activities can be completed if you are staying in the tube. If you are attempting load bearing activities, let pain be your guide with when trying an activity out of the tube . If an activity hurts or is uncomfortable go back to doing it while you stay in the tube . There is no timelimit to stay in the tube . -- Non-load bearing activities, which are your activities of daily living, can be completed with your arms out of the tube as long as you remain pain free. Some activities of daily living examples are dressing, personal care, showering, washing hair, and toilet hygiene. Don't forget to KEEP YOUR MOVE IN THE TUBE and think of a Onelia castillo! IMPORTANT Prevention of Infective Endocarditis (Heart Infections) After Cardiac Surgery: Infective endocarditis occurs when bacteria enters the bloodstream and then attaches to the heart. Patients with a new heart valve, repaired heart valve, or graft used to repair/replace their aorta are at higher risk for developing this because of the prosthetic (man-made) medical material in theirheart. Endocarditis is rare but when you undergo certain medical or dental procedures, as listed below, it can give bacteria an opportunity to enter the blood and cause this type of infection. To prevent this, preventative antibiotics taken before these procedures are required. Antibiotics are always required PRIOR to the following: - Dental work with gingival, periapical, or other gingival perforation (such as tooth extractions, dental abscess drainage, and dental cleanings) - Respiratory procedures with incisions or biopsies - Cardiac or vascular procedures to place or replace prosthetic material (such as heart valves, stents, etc.) Antibiotics are required in the following situations ONLY if an infection is already present: - Skin or soft tissue procedures with infected tissue - Gastrointestinal procedures with GI infections - Urinary or genital procedure with acute genitourinary infections Antibiotic examples you should expect to be prescribed: - Amoxicillin or Ampicillin are usually the first choice - Cephalexin, Clindamycin, or Vancomycin may be used if you are unable to tolerate/allergic to Amoxicillin or Ampicillin - Amoxicillin or Ampicillin (if allergic, use Vancomycin) will cover for enterococcus if you have aknown acute biliary tract infection - Specific antibiotics for a known organism should be used when treating an active infection Please notify your dentist/primary physician/court bailiff PRIOR to these types of procedures to obtain the proper antibiotics and prevent a serious infection in your heart. When in doubt, always ask! Additionally, good oral hygiene (routine brushing, flossing, and dental care) and prompt treatment of other infections (such as UTIs and skin infections) are equally as important to prevent endocarditis!! Additional Post-Operative Instructions: - Remember to use your Incentive spirometer 10x/hr while awake. Remember to cough and deep breath. - No NSAIDs (common kymt-mvf-kcvphex NSAIDs are ibuprofen/Motrin/Advil, naproxen/Naprosyn/Aleve) for 3 months after cardiac surgery; if NSAIDs needed after 3 months, clear use with court bailiff before starting. Your home medications may have changed after surgery. Carefully compare this list with your prescription bottles at home and set aside any medications you are told to not take so you do not confuse them. Do not dispose of any medications until your follow-up, since your doctors may restart some at your follow-up appointments. It is important to bring a complete, current list of your medications to any medical appointments or hospitalizations. For any questions about your discharge, please call the cardiac surgery office at [phone] documented in this [facility] Work Phone: [phone]) 563-847110-17-2024 Consult note* Marlee Guzman RDN, MK - 08/03/2024 1:05 PM EDTAssociated Order(s): IP CONSULT TO NUTRITION SERVICES Nutrition Initial Assessment: Nutrition Assessment Reason for Assessment: Provider consult order, Tube feeding recommendations Patient is a 69 y.o. female s/p redo sternotomy, CABG x 2 and AVR bioprosthetic w/ Dr. Lozano. PMH significant for CABG and AVR in 2004, hysterectomy, breast cancer s/p chemo (mediport), CVA x 2w/o deficits, carotid stenosis, afib s/p PPM and AICD. Nutrition History: Food and Nutrient History: Patient briefly opened eyes upon visit then fell back to sleep. WATER LEAK REPAIRER evaluation 08/03 recommended NPO. Vitamin/Herbal Supplement Use: Calcium Food Allergies: None GI Symptoms: None Oral Problems: Swallowing difficulty Anthropometrics: Height: 152.4 cm (5') Weight: 65.1 kg (143 lb 8.3 oz) BMI (Calculated): 28.03 IBW/kg (Dietitian Calculated): 45.5 kg Percent of IBW: 143 % Adjusted Body Weight (kg): 50 kg Weight History: Wt Readings from Last 101 Encounters: 08/01/24 65.1 kg (143 lb 8.3 oz) 07/24/24 66.2 kg (145 lb 15.1 oz) 07/07/24 65.7 kg (144 lb 12.8 oz) 06/28/24 64.8 kg (142 lb 14.4 oz) 06/28/24 64.9 kg (143 lb 3 oz) 05/31/24 66.4 kg (146 lb 6.2 oz) 05/30/24 66.4 kg (146 lb 6.2 oz) 05/24/24 66.7 kg (147 lb 2.5 oz) 05/23/24 67.2 kg (148 lb 2.4 oz) 05/16/24 66.8 kg (147 lb 4.3 oz) 05/10/24 65.9 kg (145 lb 2.8 oz) 05/09/24 66.9 kg (147 lb 7.8 oz) 05/03/24 67.6 kg (149 lb 0.5 oz) 05/02/24 67.9 kg (149 lb 12.8 oz) 04/30/24 66.2 kg (146 lb) 04/24/24 67.8 kg (149 lb 5.8 oz) 04/19/24 68.3 kg (150 lb 9.2 oz) 05/19/24 67.6 kg (149 lb) 04/05/24 68.6 kg (151 lb 5.5 oz) 03/30/24 69.2 kg (152 lb 7.2 oz) 03/29/24 69.3 kg (152 lb 12.8 oz) 03/08/24 69.4 kg (153 lb) 02/09/24 69.7 kg (153 lb 9.6 oz) 02/09/24 69.7 kg (153 lb 9.6 oz) 12/31/23 68.6 kg (151 lb 3.8 oz) 12/02/23 69.4 kg (153 lb) Weight Change %: Weight History / % Weight Change: 08/01/24) 65.1kg, 06/28/24) 64.9kg, 05/02/24) 67.9kg, 02/09/24) 69.7kg Significant Weight Loss: No Nutrition Focused Physical Exam Findings: Generally adequately nourished appearing. Subcutaneous Fat Loss: Orbital Fat Pads: Well nourished (slightly bulging fat pads) Buccal Fat Pads: Well nourished (full, rounded cheeks) Triceps: Defer (DOUG) Muscle Wasting: Temporalis: Mild-Moderate (slight depression) (mild) Pectoralis (Clavicular Region): Defer (DOUG) Deltoid/Trapezius: Mild-Moderate (slight protrusion of acromion process) (mild) Interosseous: Mild-Moderate (slightly depressed area between thumb and forefinger) Trapezius/Infraspinatus/Supraspinatus (Scapular Region): Defer Quadriceps: Mild-Moderate (mild depression on inner and outer thigh) Gastrocnemius: Defer (SCD'd) Edema: RUE +1 Physical Findings: Hair: (loss) Eyes: (closed) Mouth: (closed) Nails: Negative Skin: Positive (chest tubes) Nutrition Significant Labs: CBC Trend: Results from last 7 days Lab Units 08/03/2425708/02/24122008/02/24 0004 08/01/24 1452 WBC AUTO x10*3/uL 10.6 18.5* 14.7* 12.7* RBC AUTO x10*6/uL 2.81* 3.37* 3.30* 3.88* HEMOGLOBIN g/dL 9.0* 10.6* 11.3* 11.9* HEMATOCRIT % 25.5* 30.7* 30.6* 33.3* MCV fL 91 91 93 86 PLATELETS AUTO x10*3/uL 44* 62* 141* 51* , Renal Lab Trend: Results from last 7 days Lab Units 08/03/24 0258 08/02/24 1221 08/02/24 0004 08/01/24 1452 POTASSIUM mmol/L 3.8 4.5 4.3 4.5 PHOSPHORUS mg/dL 4.1 5.8* 4.8 3.5 SODIUM mmol/L 142 145 145 146* MAGNESIUM mg/dL 2.07 2.52* 2.69* 3.62* EGFR mL/min/1.73m*2 69 65 63 >90 BUN mg/dL 18 15 14 11 CREATININE mg/dL 0.90 0.95 0.97 0.68 Nutrition Specific Medications: Scheduled medications acetaminophen, 975 mg, oral, q6h aspirin, 81 mg, oral, Daily atorvastatin, 80 mg, oral, Nightly [Held by provider] heparin, 5,000 Units, subcutaneous, q8h insulin lispro, 0-15 Units, subcutaneous, q4h lidocaine, 1 patch, transdermal, Daily metoprolol tartrate, 12.5 mg, oral, BID oxygen, , inhalation, Continuous - Inhalation pantoprazole, 40 mg, oral, Daily before breakfast Or pantoprazole, 40 mg, intravenous, Daily before breakfast polyethylene glycol, 17 g, oral, BID sertraline, 100 mg, oral, Daily I/O: ; Dietary Orders (From admission, onward) Start Ordered 08/03/24 1421 Enteral feeding with NPO Isosource 1.5; 10 Diet effective now Question Answer Comment Tube feeding formula: Isosource 1.5 Tube feeding cyclic rate (mL/hr): 08/03/24 1421 08/01/24 1443 Oral nutritional supplements - Nic Until discontinued Comments: Twice a day. Question Answer Comment Deliver with Breakfast Deliver with Lunch Select supplement: Nic 08/01/24 1442 Estimated Needs: Total Energy Estimated Needs (kCal): 1400 kCal Method for Estimating Needs: 28kcal/kg/adj wt Total Protein Estimated Needs (g): 70 g Method for Estimating Needs: 1.35g/kg Nutrition Diagnosis Nutrition Diagnosis Patient has Nutrition Diagnosis: Yes Diagnosis Status (1): New Nutrition Diagnosis 1: Increased nutrient needs Related to (1): increased metabolic demand As Evidenced by (1): surgery Nutrition Interventions/Recommendations Nutrition Prescription: Individualized Nutrition Prescription Provided for : Recommend: 1) For enteral nutrition recommend Isosource 1.5 @ 10-20ml/hr, increase by 10ml every 8hrs as tolerated/per provider discretion to goal of 40ml/hr to provide 1440kcal, 65g protein and 733ml H20. Additional fluid management per ICU service discretion. Nutrition Monitoring and Evaluation Food/Nutrient Related History Monitoring Monitoring and Evaluation Plan: Enteral and parenteral nutrition intake Criteria: Tf tolerance Biochemical Data, Medical Tests and Procedures Monitoring and Evaluation Plan: Electrolyte/renal panel Criteria: WNL Nutrition Focused Physical Findings Monitoring and Evaluation Plan: Skin Criteria: Promote healing Time Spent (min): 60 minutes [facility] Phone: 1(882) 792-956010-17-2024 Procedure note* Raquel Jurado PA-C - 08/03/2024 11:13 AM EDT Small bore feeding tube placed using the Cortrak machine. Tube passed easily and appears ... on Cortrak. No evidence of respiratory compromise. Bridled in place. KUB ordered to confirm placement. [facility] Work Phone: [phone]) 336-292910-15-2024 History and physical note* WILEY Zapata - 08/01/2024 2:46 PM EDT CTICU History & Physical Subjective HPI: This is a 69 year old female with a PMH significant for CABG and AVR in 2004, hysterectomy, breast cancer s/p chemo (mediport), 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 She presents s/p redo sternotomy, CABG x 2 and AVR bioprosthetic w/ Dr. Lozano. Cardiac Testing: TTE: 03/17/2024 CONCLUSIONS: 1. Left ventricular systolic function is normal with a 60-65% estimated ejection fraction. 2. Abnormal septal motion consistent with RV pacemaker. 3. Spectral Doppler shows an impaired relaxation pattern of left ventricular diastolic filling. 4. There is moderate concentric left ventricular hypertrophy. 5. Well seated bioprosthetic AVR with mild AI and moderate to severe bioprosthetic . 6. Mild aortic valve regurgitation. 7. The thoracic aorta is mildly dilated measuring 4cm. Carotid Artery Duplex 07/26/24 CONCLUSIONS: Right Carotid: Findings are consistent with less than 50% stenosis of the right proximal internal carotid artery. Right external carotid artery appears patent with no evidence of stenosis. The right vertebral artery is patent with antegrade flow. There are elevated velocities in the right subclavian artery that are suggestive of disease. Left Carotid: Findings are consistent with less than 50% stenosis of the left proximal internal carotid artery. Left external carotid artery appears patent with no evidence of stenosis. The left vertebral artery is patent with antegrade flow. No evidence of hemodynamically significant stenosis in the left subclavian artery. LHC: Multivessel disease Procedure/Surgeon: Dr. Lozano Redo Median Sternotomy Right Femoral Artery and Right Femoral Vein Exploration CABG x 2 with Right Open Saphenous Vein [place] (SVG-PDA and SVG-SVG [facility] Aortic Valve Replacement with a 21 mm BIOPROSTHETIC Avalus Ultra Valve Ascending Aorta and Adryan-Arch Replacement with a 28 x 8 mm Gelweave Graft under Deep Hypothermic Circulatory Arrest with Retrograde Cerebral Perfusion Frontliner/Anesthesia: Dr. Khan Out of OR Time (document on ventilator card): 1500 OR Course/Issues: No issues CPB time: 173mins Cross clamp time: 132mins Circ arrest time: 15mins Echo Pre/Post: normal BIV, moderate LVH Chest Tubes/Drains: RPL, LPL, MS Temporary wires location/setting: V wires Fluids Crystalloid: 1800cc Colloid: 750cc Cellsaver: 1068cc Products: 2prbc EBL: 500cc UOP: 1600cc Anesthesia Intubation: grade I airway mac 3 Intravenous Access: LIJ cvc, right chest mediport AICD: Yes-turned on after OR PPM: Yes DDDr 60-120 Regional anesthesia: N/A TOF/ reversal given: Yes Antibiotic time: ancef 12:14, vanc 0840 Temperature on admission to ICU: 36.3C Past Medical History: Diagnosis Date Anxiety Aortic valve insufficiency perivalvular aortic valve insufficiency- scheduled for surgery with Dr. Lozano. Arrhythmia Ventricular tachycardia Arthritis Ascending aorta dilatation (CMS-HCC) 05/2024-Dilated ascending aorta measuring up to 4.8 cm within the mid ascending aorta Ascending aorta dilation (CMS-HCC) s/p repair abdominal aortic aneurysm Breast cancer (Multi) Right Breast-S/p 3 cycles of gem/carbo with clinical response in breast Cerebral vascular accident (Multi) CVA x2-no deficits CHF (congestive heart failure) Congestive heart failure 12/01/2023 diastolic LVEF 70% BY 02/2012 STRESS NYHA CLASS II Coronary artery disease s/p CABG x3 Depression Dizziness GERD (gastroesophageal reflux disease) controlled with protonix HOCM (hypertrophic obstructive cardiomyopathy) (Multi) 12/01/2023 Hx of transfusion of platelets Transfused 05/2024 Hyperlipidemia Hypertension Irregular heart beat A-Fib s/p AICD Joint pain Occlusion and stenosis of bilateral carotid arteries 12/01/2023 Old myocardial infarction Other chest pain 12/01/2023 Presence of combination internal cardiac defibrillator (ICD) and pacemaker 03/2024 Last device check--generator replacement 06/2023 Shortness of breath ROBERT TIA (transient ischemic attack) Vision loss CVA in left eye, wears glasses Past Surgical History: Procedure Laterality Date ABDOMINAL AORTIC ANEURYSM REPAIR 2005 AORTIC VALVE REPLACEMENT 2005 BREAST BIOPSY CARDIAC CATHETERIZATION CARDIAC VALVE REPLACEMENT CORONARY ARTERY BYPASS GRAFT 2005 CORONARY STENT PLACEMENT x4 HYSTERECTOMY INSERT / REPLACE / REMOVE PACEMAKER 2010 OTHER SURGICAL HISTORY 07/20/2019 Cardioverter defibrillator insertion OTHER SURGICAL HISTORY 07/24/2019 Arterial stent placement TONSILLECTOMY Medications Prior to Admission Medication Sig Dispense Refill Last Dose amLODIPine (Norvasc) 10 mg tablet Take 0.5 tablets (5 mg) by mouth once daily. 07/31/2024 aspirin 81 mg EC tablet Take 1 tablet (81 mg) by mouth once daily. 07/31/2024 calcium carbonate 600 mg calcium (1,500 mg) tablet Take 600 mg by mouth once daily. Past Week chlorhexidine (Hibiclens) 4 % external liquid Use as directed daily preoperatively 473 mL 0 08/01/2024 chlorhexidine (Peridex) 0.12 % solution Swish and spit with 15ml of solution the night before and morning of surgery. Do not swallow. 15 mL 0 08/01/2024 cyclobenzaprine (Flexeril) 10 mg tablet Take 1 tablet (10 mg) by mouth 3 times a day as needed for muscle spasms (Pain). 30 tablet 1 07/31/2024 lisinopril 40 mg tablet Take 1 tablet (40 mg) by mouth once daily. Past Week melatonin 10 mg tablet Take 1 tablet (10 mg) by mouth as needed at bedtime. 07/31/2024 pantoprazole (ProtoNix) 40 mg EC tablet Take 1 tablet (40 mg) by mouth once daily in the morning. Take before meals. 07/31/2024 rosuvastatin (Crestor) 20 mg tablet Take 1 tablet (20 mg) by mouth once daily. 07/31/2024 sertraline (Zoloft) 100 mg tablet Take 1 tablet (100 mg) by mouth once daily. 07/31/2024 sotalol (Betapace) 120 mg tablet Take 1 tablet (120 mg) by mouth every 12 hours. 07/31/2024 traZODone (Desyrel) 100 mg tablet Take 1 tablet (100 mg) by mouth as needed at bedtime for sleep. 07/31/2024 loratadine (Claritin) 10 mg tablet Take 1 tablet (10 mg) by mouth once daily. To be taken the day of chemotherapy and for 5 days following each infusion 30 tablet 3 nitroglycerin (Nitrostat) 0.[address] 1 tablet (0.4 mg) under the tongue every 5 minutesif needed for chest pain. More than a month OLANZapine (ZyPREXA) 2.5 mg tablet Take 1 tablet (2.5 mg) by mouth once daily at bedtime. 30 tablet1 Grass pollen and House dust mite Social History Tobacco Use Smoking status: Former Current packs/day: 0.00 Types: Cigarettes Quit date: 2004 Years since quittin.8 Passive exposure: Never Smokeless tobacco: Never Vaping Use Vaping status: Never Used Substance Use Topics Alcohol use: Never Drug use: Never Family History Problem Relation Name Age of Onset Cancer Mother colon and breast Heart disease Father Cancer Sister breast Review of Systems: DOUG emerging from anesthesia Objective Vitals: Most Recent: Vitals: 08/01/24 0550 BP: (!) 138/93 Pulse: 84 Resp: 18 Temp: 36 C (96.8 F) SpO2: 94% 24hr Min/Max: Temp Min: 36 C (96.8 F) Max: 36 C (96.8 F) Pulse Min: 84 Max: 84 BP Min: 138/93 Max: 138/93 Resp Min: 18 Max: 18 SpO2 Min: 94 % Max: 94 % I/O: No intake/output data recorded. LDA: CVC 08/01/24 Double lumen Left Internal jugular (Active) Placement Date/Time: 08/01/24 (c) 9948 Hand Hygiene Performed Prior to CVC Insertion: Yes Site Prep: Chlorhexidine Site Prep Agent has Completely Dried Before Insertion: Yes All 5 Sterile Barriers Used (Gloves, Gown, Cap, Mask, Large Sterile Mary... Number of days: 0 Arterial Line 08/01/24 Left Brachial (Active) Placement Date/Time: 08/01/24 (c) 0153 Size: 20 G Orientation: Left Location: Brachial Securement Method: Transparent dressing Patient Tolerance: Tolerated well Number of days: 0 Implantable Port 03/30/24 Right Chest Single lumen port (Active) Placement Date/Time: 03/30/24 1013 Hand Hygiene Completed: Yes Orientation: Right Implantable Port Location: Chest Port Type: Single lumen port Number of days: 124 ETT 7.5 mm (Active) Placement Date/Time: 08/01/24 (c) 0750 Mask Ventilation: Vent by mask + OA or adjuvant +/- NMBA Technique: Direct laryngoscopy ETT Type: ETT - single Single Lumen Tube Size: 7.5 mm Cuffed: Yes Laryngoscope: Haydee Blade Size: 3 Location: O... Number of days: 0 Urethral Catheter Temperature probe 14 Fr. (Active) Placement Date/Time: 08/01/24 0803 Placed by: Tino Contreras Hand Hygiene Completed: Yes Catheter Type: Temperature probe Tube Size (Fr.): 14 Fr. Catheter Balloon Size: 10 mL Urine Returned: Yes Number of days: 0 Physical Exam: - CONSTITUTION: Elderly female in icu bed, intubated and sedated - NEUROLOGIC: Pupils equal and reactive. Doug still sedated - CARDIOVASCULAR: Sinus rhythm 80's. V wires backed up - RESPIRATORY: Crackles, intubated - GI: Soft nondistended - : clear yellow urine in jay - EXTREMITIES: warm, pulses palpable - SKIN: warm - PSYCHIATRIC: DOUG Lab Review:reviewed No lab exists for component: LABALBU Results from last 7 days Lab Units 08/01/24 1417 POCT PH, ARTERIAL pH 7.33* POCT PCO2, ARTERIAL mm Hg 50* POCT PO2, ARTERIAL mm Hg 97* POCT HCO3 CALCULATED, ARTERIAL mmol/L 26.4* POCT BASE EXCESS, ARTERIAL mmol/L -0.1 Most recent labs and imaging reviewed. 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 She presents s/p redo sternotomy, CABG x 2 and AVR bioprosthetic w/ Dr. Lozano. Plan: NEURO: PMH of Anxiety, CVA x 2 (no deficits). Patient is intubated and sedated on propofol infusion. Acute post operative pain. --> - Serial neuro and pain assessments - Continue propofol until NMB reversal, then daily sedation vacation at minimum - NMB reversal when normothermic and hemodynamically stable. - Scheduled Tylenol - PRN oxycodone - PRN dilaudid for pain - PT Consult, OOB to chair as tolerated, chair position if not tolerated - CAM ICU score qshift - Sleep/wake cycle hygiene - Hold home olanzapine, sertraline, trazodone, flexeril CV: Patient has a history of HOCM, afib, LVH, HTN, HPL, AVR/CABG 2004. Is now status post Redo sternotomy, AVR, Ascending aorta and adryan arch replacement with deep hypothermic circulatory arrest withretrograde perfusion w/ Dr. Lozano. AICD. PPM DDDr 60-120. Pre/Post EF: normal BIV. Arrived to CTICUon epi and levo. V epicardial wires set VVI @ 50.--> - Maintain goal MAP 70-85 - Mixed venous and CI Q4H - Volume resuscitate as clinically indicated - Maintain epicardial wires set VVI @ 50 - If CABG is 2/2 STEMI/unstable angina, will receive Plavix POD2 - ASA 6hrs postop - Start statin - Hold home amlodipine, lisinopril, sotalol PULM: No history of pulmonary disease. Currently intubated on ventilator. Chest tubes RPL, LPL, MS.--> - F/u post op CXR - Once reversed, wean ventilator settings towards CPAP & extubation - Wean FiO2 maintaining SpO2 >92%. - IS q1h and OOB to chair when extubated - Chest tubes to wall suction. GI: PMH of Gerd. OG in place.--> - Continue PPI - NPO, will perform bedside swallow eval post extubation - Colace/senna BID and miralax BID : CSA-GARRICK Risk Score low. No history of renal disease, baseline creatinine 1.02. Creatinine stable post-op. Jay in place and making adequate UOP. --> - Continue jay catheter for strict I/Os. - Goal UOP 0.5ml/kg/hr - RFP as clinically indicated - Replete electrolytes per CTICU protocol ENDO: PMH of n/a. A1C pending--> - Maintain BG <180, insulin per CTICU protocol HEME: Acute blood loss anemia and thrombocytopenia.--> - Monitor drain output volume and characteristics - CBC, coags, and fibrinogen post op and as clinically indicated - Start ASA 6hrs post-op for CABG - If CABG is 2/2 STEMI/unstable angina, will receive Plavix POD2 - SQH tomorrow - SCDs for DVT prophylaxis. - Last type and screen: 08/01 Oncology: -hx of breast cancer s/p 3cycles of gem/carbo with clinical response ID: Afebrile, no current indications of infection. MRSA 07/24.--> - Trend temp q4h - Periop cefazolin x 48hrs Skin: No active skin issues. - preventative Mepilex dressings in place on sacrum and heels - change preventative Mepilex weekly or more frequently as indicated (when moist/soiled) - every shift skin assessment per nursing and weekly ICU skin rounds - moisture barrier to be applied with tamera care - active skin problems addressed with nursing on daily rounds Proph: SCDs PPI G: Line Left IJ MAC w [place]ac placed 08/01 Left brachial a-line placed 08/01 Mediport-not accessed Jay 08/01 F: Family: will update at bedside postoperatively. The indications and risks/benefits of non-violent/non self-destructive restraints were discussed. A,B,C,D,E,F,G: reviewed I personally spent 60 minutes of critical care time directly and personally managing the patient exclusive of separately billable procedures. Dispo: CTICU care for now. CTICU TEAM PHONE [phone] * Ruel Lozano MD - 08/01/2024 6:56 AM EDT H&P reviewed. The patient was examined and there are no changes to the H&P. Source Note - WILEY Biggs - 07/24/2024 8:30 AM EDT Images from the original note were not included. CPM/PAT Evaluation Name: Lizbeth Nixon (Lizbeth Nixon) /Age: 401/26/1955/69 y.o. Visit Type: In-Person Chief Complaint: preop eval HPI The patient is a 69 year old female with history of perivalvular aortic valve insufficiency, CAD status post CABG, dilated ascending aorta s/p repair abdominal aortic aneurysm, afib, s/p AICD, hypertension, hyperlipidemia, CVA, carotid artery stenosis. She has noted perivalvular leak on recent imaging as well as multi vessel CAD, dilated aortic root. She notes some ongoing sob. She denies fever, chills, n/v, abdominal pain, chest pain or syncope. She presents today for perioperative evaluation in anticipation Mitral Valve Replacement/CABG, Replacement Aortic Valve Repair, Ascending Aorta on 08/01/[address] Lozano. Past Medical History: Diagnosis Date Anxiety Aortic valve insufficiency perivalvular aortic valve insufficiency- scheduled for surgery with Dr. Lozano. Arrhythmia Ventricular tachycardia Arthritis Ascending aorta dilatation (CMS-HCC) 05/2024-Dilated ascending aorta measuring up to 4.8 cm within the mid ascending aorta Ascending aorta dilation (CMS-HCC) s/p repair abdominal aortic aneurysm Breast cancer (Multi) Right Breast-S/p 3 cycles of gem/carbo with clinical response in breast Cerebral vascular accident (Multi) CVA x2-no deficits CHF (congestive heart failure) Congestive heart failure 12/01/2023 diastolic LVEF 70% BY 02/2012 STRESS NYHA CLASS II Coronary artery disease s/p CABG x3 Depression Dizziness GERD (gastroesophageal reflux disease) controlled with protonix HOCM (hypertrophic obstructive cardiomyopathy) (Multi) 12/01/2023 Hx of transfusion of platelets Transfused 05/2024 Hyperlipidemia Hypertension Irregular heart beat A-Fib s/p AICD Joint pain Occlusion and stenosis of bilateral carotid arteries 12/01/2023 Old myocardial infarction Other chest pain 12/01/2023 Presence of combination internal cardiac defibrillator (ICD) and pacemaker 03/2024 Last device check--generator replacement 06/2023 Shortness of breath ROBERT TIA (transient ischemic attack) Vision loss CVA in left eye, wears glasses Past Surgical History: Procedure Laterality Date ABDOMINAL AORTIC ANEURYSM REPAIR 2004 AORTIC VALVE REPLACEMENT 2004 BREAST BIOPSY CARDIAC CATHETERIZATION CARDIAC VALVE REPLACEMENT CORONARY ARTERY BYPASS GRAFT 2004 CORONARY STENT PLACEMENT x4 HYSTERECTOMY INSERT / REPLACE / REMOVE PACEMAKER 2010 OTHER SURGICAL HISTORY 07/20/2019 Cardioverter defibrillator insertion OTHER SURGICAL HISTORY 07/24/2019 Arterial stent placement TONSILLECTOMY Patient Sexual activity questions deferred to the physician. Family History Problem Relation Name Age of Onset Cancer Mother colon and breast Heart disease Father Cancer Sister breast Allergies Allergen Reactions Grass Pollen Other House Dust Mite Other Prior to Admission medications Medication Sig Start Date End Date Taking? Authorizing Provider amLODIPine (Norvasc) 10 mg tablet Take 0.5 tablets (5 mg) by mouth once daily. 10/18/23 Historical Provider, aspirin 81 mg EC tablet Take 1 tablet (81 mg) by mouth once daily. 01/19/17 Historical Provider, calcium carbonate 600 mg calcium (1,500 mg) tablet Take 600 mg by mouth once daily. 06/30/18 Historical Provider, chlorhexidine (Hibiclens) 4 % external liquid Use as directed daily preoperatively 12/31/23 WILEY Biggs chlorhexidine (Peridex) 0.12 % solution Swish and spit with 15ml of solution the night before and morning of surgery. Do not swallow. 12/31/23 WILEY Biggs cyclobenzaprine (Flexeril) 10 mg tablet Take 1 tablet (10 mg) by mouth 3 times a day as needed for muscle spasms (Pain). 07/04/24 WILYE Carlson lidocaine-prilocaine (Emla) 2.5-2.5 % cream Apply 1 Application topically 1 time for 1 dose. 07/19/24 07/19/24 Marcelo Davey MD lisinopril 40 mg tablet Take 1 tablet (40 mg) by mouth once daily. Historical Provider, loratadine (Claritin) 10 mg tablet Take 1 tablet (10 mg) by mouth once daily. To be taken the day of chemotherapy and for 5 days following each infusion 04/26/24 05/26/24 WILEY Carlson melatonin 10 mg tablet Take 1 tablet (10 mg) by mouth as needed at bedtime. Historical Provider, nitroglycerin (Nitrostat) 0.[address] 1 tablet (0.4 mg) under the tongue every 5 minutesif needed for chest pain. 06/03/23 Historical Provider, OLANZapine (ZyPREXA) 2.5 mg tablet Take 1 tablet (2.5 mg) by mouth once daily at bedtime. 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 Take before meals. Historical Provider, rosuvastatin (Crestor) 20 mg tablet Take 1 tablet (20 mg) by mouth once daily. Historical Provider, sertraline (Zoloft) 100 mg tablet Take 1 tablet (100 mg) by mouth once daily. 11/02/23 Historical Provider, sotalol (Betapace) 120 mg tablet Take 1 tablet (120 mg) by mouth every 12 hours. Historical Provider, traZODone (Desyrel) 100 mg tablet Take 1 tablet (100 mg) by mouth as needed at bedtime for sleep. 11/10/23 Historical Provider, lidocaine-prilocaine (Emla) 2.5-2.5 % cream Apply 1 Application topically 1 time. 03/30/24 07/19/24 Historical Provider, MD LEIVA ROS: Constitutional: neg Neuro/Psych: neg Eyes: neg use of corrective lenses Ears: neg Nose: neg Mouth: neg Throat: neg Neck: Limited ROM neg neck pain neck stiffness Cardio: neg Respiratory: neg Endocrine: neg GI: neg : neg Musculoskeletal: arthralgias myalgias Hematologic: neg Skin: neg Physical Exam Vitals reviewed. Constitutional: Appearance: Normal appearance. HENT: Head: Normocephalic and atraumatic. Nose: Nose normal. Mouth/Throat: Mouth: Mucous membranes are moist. Pharynx: Oropharynx is clear. Eyes: Extraocular Movements: Extraocular movements intact. Conjunctiva/sclera: Conjunctivae normal. Pupils: Pupils are equal, round, and reactive to light. Neck: Comments: Limited ROM Cardiovascular: Rate and Rhythm: Normal rate and regular rhythm. Pulses: Normal pulses. Heart sounds: Normal heart sounds. Pulmonary: Effort: Pulmonary effort is normal. Breath sounds: Normal breath sounds. Musculoskeletal: General: Normal range of motion. Cervical back: Rigidity present. Skin: General: Skin is warm and dry. Neurological: General: No focal deficit present. Mental Status: She is alert and oriented to person, place, and time. Psychiatric: Mood and Affect: Mood normal. Behavior: Behavior normal. PAT AIRWAY: Airway: Mallampati:: III TM distance:: >3 FB Neck ROM:: Limited upper dentures and lower dentures Visit Vitals BP 110/63 Pulse 67 Temp 36 C (96.8 F) Ht 1.524 m (5') Wt 66.2 kg (145 lb 15.1 oz) LMP (LMP Unknown) SpO2 96% BMI 28.50 kg/m OB Status Postmenopausal Smoking Status Former BSA 1.67 m DASI Risk Score Flowsheet Row Pre-Admission Testing from 07/24/[address] [facility] Pre-Admission Testing from 12/31/[address] [facility] Can you take care of yourself (eat, dress, bathe, or use toilet)? 2.75 filed at 07/24/202442 2.75 filed at 12/31/2023 1030 Can you walk indoors, such as around your house? 1.75 filed at 07/24/202442 1.75 filed at 12/31/2023 1030 Can you walk a block or two on level ground? 2.75 filed at 07/24/202442 2.75 filed at 030 Can you climb a flight of stairs or walk up a hill? 5.5 filed at 07/24/202442 5.5 filed at 12/31/2023 1030 Can you run a short distance? 0 filed at 07/24/202442 8 filed at 12/31/2023 1030 Can you do light work around the house like dusting or washing dishes? 2.7 filed at 07/24/2024 49464.7 filed at 12/31/2023 1030 Can you do moderate work around the house like vacuuming, sweeping floors or carrying groceries? 3.5 filed at 07/24/202442 3.5 filed at 12/31/2023 1030 Can you do heavy work around the house like scrubbing floors or lifting and moving heavy furniture?0 filed at 07/24/2024 0842 8 filed at 12/31/2023 1030 Can you do yard work like raking leaves, weeding or pushing a mower? 0 filed at 07/24/2024 0842 0 filed at 12/31/2023 1030 Can you have sexual relations? 5.25 filed at 07/24/2024 0842 0 filed at 12/31/2023 1030 Can you participate in moderate recreational activities like golf, bowling, dancing, doubles tennisor throwing a baseball or football? 0 filed at 07/24/2024 0842 0 filed at 12/31/2023 1030 Can you participate in strenous sports like swimming, singles tennis, football, basketball, or skiing? 0 filed at 07/24/2024 0842 0 filed at 12/31/2023 1030 DASI SCORE 24.2 filed at 07/24/2024 0842 34.95 filed at 12/31/2023 1030 METS Score (Will be calculated only when all the questions are answered) 5.7 filed at 07/24/2024 0842 7 filed at 12/31/2023 1030 Caprini DVT Assessment Flowsheet Row Pre-Admission Testing from 07/24/[address] [facility] Admission (Discharged) from 06/06/20[facility] in [facility] 4 with Aaron Bray MD DVT Score 9 filed at 07/24/2024 0844 5 filed at 06/06/2024 0931 Medical Factors Present cancer, chemotherapy, or previous malignancy filed at 07/24/2024 0844 -- Surgical Factors Major surgery planned, lasting over 3 hours filed at 07/24/2024 0844 -- BMI 30 or less filed at 07/24/2024 0844 30 or less filed at 06/06/2024 0931 RETIRED: Current Status -- Present cancer or chemotherapy filed at 06/06/2024 0931 RETIRED: Age -- 60-75 years filed at 06/06/2024 0931 Modified Frailty Index Flowsheet Row Pre-Admission Testing from 07/24/[address] [facility] Pre-Admission Testing from 12/31/2023 in [facility] Non-independent functional status (problems with dressing, bathing, personal grooming, or cooking) 0 filed at 07/24/2024 0845 0 filed at 12/31/2023 1253 History of diabetes mellitus 0 filed at 07/24/2024 0845 0 filed at 12/31/2023 1253 History of COPD 0 filed at 07/24/2024 0845 0 filed at 12/31/2023 1253 History of CHF 0.0909 filed at 07/24/2024 0845 0.0909 filed at 12/31/2023 1253 History of DE 0.0909 filed at 07/24/2024 0845 0.0909 filed at 12/31/2023 1253 History of Percutaneous Coronary Intervention, Cardiac Surgery, or Angina 0.0909 filed at 07/24/2024 0845 0.0909 filed at 12/31/2023 1253 Hypertension requiring the use of medication 0.0909 filed at 07/24/2024 0845 0.0909 filed at 12/31/2023 1253 Peripheral vascular disease 0 filed at 07/24/2024 0845 0 filed at 12/31/2023 1253 Impaired sensorium (cognitive impairement or loss, clouding, or delirium) 0 filed at 07/24/2024 0845 0 filed at 12/31/2023 1253 TIA or CVA withouy residual deficit 0 filed at 07/24/2024 0845 0 filed at 12/31/2023 1253 Cerebrovascular accident with deficit 0 filed at 07/24/2024 0845 0 filed at 12/31/2023 1253 Modified Frailty Index Calculator .[id number] filed at 07/24/2024 0845 .[id number] filed at 12/31/2023 1253 CHADS2 Stroke Risk Current as of 25 minutes ago 8.5% 3 to 100%: High Risk 2 to < 3%: Medium Risk 0 to < 2%: Low Risk Last Change: This score determines the patient's risk of having a stroke if the patient has atrial fibrillation. Points Metrics 1 Has Congestive Heart Failure: Yes Patients with congestive heart failure get 1 point. Current as of 25 minutes ago 1 Has Hypertension: Yes Patients with hypertension get 1 point. Current as of 25 minutes ago 0 Age: 69 Patients who are 75 years of age or older get 1 point. Current as of 25 minutes ago 0 Has Diabetes: No Patients with diabetes get 1 point. Current as of 25 minutes ago 2 Had Stroke: Yes Had TIA: Yes Had Thromboembolism: No Patients who have had a stroke, TIA, or thromboembolism get 2 points. Current as of 25 minutes ago Revised Cardiac Risk Index Flowsheet Row Pre-Admission Testing from 07/24/[address] [facility] Pre-Admission Testing from 12/31/[address] [facility] High-Risk Surgery (Intraperitoneal, Intrathoracic,Suprainguinal vascular) 1 filed at 07/24/2024 0845 1 filed at 12/31/2023 1252 History of ischemic heart disease (History of DE, History of positive exercuse test, Current chest paint considered due to myocardial ischemia, Use of nitrate therapy, ECG with pathological Q Waves) 1 filed at 07/24/2024 0845 1 filed at 12/31/2023 1252 History of congestive heart failure (pulmonary edemia, bilateral rales or S3 gallop, Paroxysmal nocturnal dyspnea, CXR showing pulmonary vascular redistribution) 1 filed at 07/24/2024 0845 1 filed at12/31/2023 1252 History of cerebrovascular disease (Prior TIA or stroke) 1 filed at 07/24/2024 0845 1 filed at 12/31/2023 1252 Pre-operative insulin treatment 0 filed at 07/24/2024 0845 0 filed at 12/31/2023 1252 Pre-operative creatinine>2 mg/dl 0 filed at 07/24/2024 0845 0 filed at 12/31/2023 1252 Revised Cardiac Risk Calculator 4 filed at 07/24/2024 0845 4 filed at 12/31/2023 1252 Apfel Simplified Score Flowsheet Row Pre-Admission Testing from 07/24/[address] [facility] Pre-Admission Testing from 12/31/[address] [facility] Smoking status 1 filed at 07/24/2024 0845 1 filed at 12/31/2023 1252 History of motion sickness or PONV 0 filed at 07/24/2024 0845 0 filed at 12/31/2023 1252 Use of postoperative opioids 1 filed at 07/24/2024 0845 1 filed at 12/31/2023 1252 Gender - Female 1=Yes filed at 07/24/2024 0845 -- Apfel Simplified Score Calculator 3 filed at 07/24/2024 0845 3 filed at 12/31/2023 1252 Risk Analysis Index Results This Encounter No data found in the last 10 encounters. Stop Bang Score Flowsheet Row Pre-Admission Testing from 07/24/[address] [facility] Pre-Admission Testing from 12/31/[address] [facility] Do you snore loudly? 0 filed at 07/24/2024 0841 0 filed at 12/31/2023 1029 Do you often feel tired or fatigued after your sleep? 0 filed at 07/24/2024 0841 0 filed at 12/31/2023 1029 Has anyone ever observed you stop breathing in your sleep? 0 filed at 07/24/2024 0841 0 filed at 12/31/2023 1029 Do you have or are you being treated for high blood pressure? 1 filed at 07/24/2024 0841 1 filed at12/31/2023 1029 Recent BMI (Calculated) 28.3 filed at 07/24/2024 0841 29.9 filed at 12/31/2023 1029 Is BMI greater than 35 kg/m2? 0=No filed at 07/24/2024 0841 0=No filed at 12/31/2023 1029 Age older than 50 years old? 1=Yes filed at 07/24/2024 0841 1=Yes filed at 12/31/2023 1029 Is your neck circumference greater than 17 inches (Male) or 16 inches (Female)? 0 filed at 07/24/2024 0841 0 filed at 12/31/2023 1029 Gender - Male 0=No filed at 07/24/2024 0841 0=No filed at 12/31/2023 1029 STOP-BANG Total Score 2 filed at 07/24/2024 0841 2 filed at 12/31/2023 1029 Recent Results (from the past 168 hour(s)) CBC and Auto Differential Collection Time: 07/24/24 9:02 AM Result Value Ref Range WBC 5.5 4.4 - 11.3 x10*3/uL nRBC 0.0 0.0 - 0.0 /100 WBCs RBC 3.89 (L) 4.00 - 5.20 x10*6/uL Hemoglobin 12.5 12.0 - 16.0 g/dL Hematocrit 37.5 36.0 - 46.0 % MCV 96 80 - 100 fL MCH 32.1 26.0 - 34.0 pg MCHC 33.3 32.0 - 36.0 g/dL RDW 14.8 (H) 11.5 - 14.5 % Platelets 169 150 - 450 x10*3/uL Neutrophils % 48.4 40.0 - 80.0 % Immature Granulocytes %, Automated 0.2 0.0 - 0.9 % Lymphocytes % 35.2 13.0 - 44.0 % Monocytes % 9.7 2.0 - 10.0 % Eosinophils % 6.0 0.0 - 6.0 % Basophils % 0.5 0.0 - 2.0 % Neutrophils Absolute 2.65 1.20 - 7.70 x10*3/uL Immature Granulocytes Absolute, Automated 0.01 0.00 - 0.70 x10*3/uL Lymphocytes Absolute 1.93 1.20 - 4.80 x10*3/uL Monocytes Absolute 0.53 0.10 - 1.00 x10*3/uL Eosinophils Absolute 0.33 0.00 - 0.70 x10*3/uL Basophils Absolute 0.03 0.00 - 0.10 x10*3/uL Comprehensive Metabolic Panel Collection Time: 07/24/24 9:02 AM Result Value Ref Range Glucose 102 (H) 74 - 99 mg/dL Sodium 140 136 - 145 mmol/L Potassium 4.6 3.5 - 5.3 mmol/L Chloride 100 98 - 107 mmol/L Bicarbonate 32 21 - 32 mmol/L Anion Gap 13 10 - 20 mmol/L Urea Nitrogen 13 6 - 23 mg/dL Creatinine 1.02 0.50 - 1.05 mg/dL eGFR 59 (L) >60 mL/min/1.73m*2 Calcium 9.1 8.6 - 10.6 mg/dL Albumin 4.5 3.4 - 5.0 g/dL Alkaline Phosphatase 94 33 - 136 U/L Total Protein 7.0 6.4 - 8.2 g/dL AST 17 9 - 39 U/L Bilirubin, Total 0.6 0.0 - 1.2 mg/dL ALT 10 7 - 45 U/L Coagulation Screen Collection Time: 07/24/24 9:02 AM Result Value Ref Range Protime 11.2 9.8 - 12.8 seconds INR 1.0 0.9 - 1.1 aPTT 31 27 - 38 seconds Type And Screen Collection Time: 07/24/24 9:02 AM Result Value Ref Range ABO TYPE B Rh TYPE POS ANTIBODY SCREEN NEG Staphylococcus aureus/MRSA colonization, Culture Collection Time: 07/24/24 9:02 AM Specimen: Anterior Nares; Swab Result Value Ref Range Staph/MRSA Screen Culture No Staphylococcus aureus isolated Diagnostic Results Carotid Artery Duplex 07/26/24 CONCLUSIONS: Right Carotid: Findings are consistent with less than 50% stenosis of the right proximal internal carotid artery. Right external carotid artery appears patent with no evidence of stenosis. The right vertebral artery is patent with antegrade flow. There are elevated velocities in the right subclavian artery that are suggestive of disease. Left Carotid: Findings are consistent with less than 50% stenosis of the left proximal internal carotid artery. Left external carotid artery appears patent with no evidence of stenosis. The left vertebral artery is patent with antegrade flow. No evidence of hemodynamically significant stenosis in the left subclavian artery. EKG 06/06/24 Normal sinus rhythm Minimal voltage criteria for LVH, may be normal variant Anterolateral infarct , age undetermined Abnormal ECG TRANSTHORACIC ECHO (TTE) 02/11/24 CONCLUSIONS: 1. Left ventricular systolic function is mildly decreased with a 45-50% estimated ejection fraction. 2. There is global hypokinesis of the left ventricle with minor regional variations. 3. Left Ventricular Global Longitudinal Strain - -12.4 %. 4. There is moderate concentric left ventricular hypertrophy. 5. There is low normal right ventricular systolic function. 6. Aortic valve appears abnormal. 7. Aortic valve appears degenerative. Gradients were not assed with current study. Consider repeat evaluation for thorough evaluation. 8. Mild aortic valve regurgitation. Assessment and Plan: Anesthesia: The patient denies problems with anesthesia in the past such as PONV, prolonged sedation, awareness, dental damage, aspiration, cardiac arrest, difficult intubation, or unexpected hospital admissions. Cardiovascular The patient has history of aortic valve replacement, perivalvular aortic valve insufficiency, CAD s/p CABG 2004 and PCI 2009, dilated ascending aorta s/p repair abdominal aortic aneurysm (MRA angiogram performed May 2024 noted ascending aortic aneurysm with the dimension measuring 4.8 cm), afib,Ischemic cardiomyopathy s/p AICD-dual chamber [employer] ICD implanted in 2010. Please consider evaluation of device on day of surgery. Hypertension, hyperlipidemia, carotid artery stenosis. Currently on aspirin, rosuvastatin- continue as prescribed in the perioperative period, plavix-instructed to hold 7 days prior to surgery. Scheduled with Dr. Lozano on 08/01/24 She is scheduled for cardiac surgery. Preoperative evaluation is complete pending results of labs, urine, nares, carotid duplex. Cardiology Evaluation The patient follows with cardiology, Dr. Cindy Bae. Patient was last seen 06/28/24. Per note Plan: -For the bioprosthetic valve stenosis with concurrent aneurysm: Surgical aortic valve replacement/aneurysm repair appears to be the best course forward. Has an upcoming appointment with CV surgery todiscuss the same -Once her valvular issues have been treated: Can consider further surgery for breast cancer/cardiotoxic chemotherapy -RTC 3 months RCRI The patient meets 3 or more RCRI criteria and therefore is at high risk (15%) for major adverse cardiac complications. METS The patient's functional capacity capacity is greater than 4 METS. LEBRON score which indicates a 0.8% risk of intraoperative or 30-day postoperative MACE (major adverse cardiac event). Pulmonary No significant findings on chart review or clinical presentation and evaluation. The patient is at increased risk of perioperative pulmonary complications secondary to thoracic surgery, advanced age greater than 60. The patient has a stop bang score of 2, which places patient at low risk for having AMAURY. ARISCAT 50, High, 42.1% risk of in-hospital postoperative pulmonary complications PRODIGY 19, high risk of respiratory depression episode. Patient given PI sheet for preoperative deep breathing exercises. Neuro: The patient has history of CVA currently on aspirin therapy. Last duplex study 08/15/14 with 20-39%LICA. Repeat duplex study ordered. The patient is at increased risk for postoperative delirium secondary to age 65 or older, polypharmacy. The patient is at increased risk for perioperative stroke sec ondary to prior CVA/TIA, a-fib, cardiac disease, hypertension , carotid stenosis, increased age, hyperlipidemia, female gender, general anesthesia, operative time >2.5 hours, cardiac or emergency surgery. Handouts for preoperative brain exercises given to patient. HEENT/Airway No diagnoses, significant findings on chart review, clinical presentation, or evaluation. No documented or reported history of airway difficulty. Endocrine No diagnoses or significant findings on chart review or clinical presentation and evaluation. Gastrointestinal The patient has GERD managed on pantoprazole. No current GI complaints. Eat 10- 0, self-perceived oropharyngeal dysphagia scale (0-40) Genitourinary No diagnoses or significant findings on chart review or clinical presentation and evaluation. Renal No renal diagnoses or significant findings on chart review or clinical presentation and evaluation.The patient is scheduled for coronary revascularization surgery which places patient at higher riskof perioperative renal complications. The patient has specific risk factors associated with increased risk of perioperative renal complications related to age greater than 55, hypertension, cerebrovascular disease. DPS 2-3 medium risk for perioperative acute kidney injury. Preventative measures include preoperative hydration. Hematology/Oncology The patient has history of chemotherapy induced anemia, thrombocytopenia s/p transfusion 05/2024, right breast invasive ductal carcinoma multifocal, stage IIB or IV diagnosed 11/25/23 incidentally during work up for heart surgery. This was delayed for treatment with low dose carbo/gem. CBC obtained. Oncology: Dr. Petar RANDOLPH 06/28/24 Per note, she isn't a candidate for standard HER2 therapy as per cardio-oncology and due to recent admission due to chemotherapy despite low dose carbo/gem will suspend chemotherapy for now. She's currently not a candidate for breast surgery given severe aortic stenosis and will need cardiac surgery before breast surgery or her2 therapy. I will see her back in about 4-6 weeks post cardiac surgery. Caprini score 9, high risk of perioperative VTE. Patient instructed to ambulate as soon as possible postoperatively to decrease thromboembolic risk.Initiate mechanical DVT prophylaxis as soon as possible and initiate chemical prophylaxis when deemed safe from a bleeding standpoint post surgery. Transfusion Evaluation A type and screen was obtained given the likelihood for perioperative transfusion of blood or bloodproducts. Plan for repeat T&S 72 hours prior to surgery r/t recent transfusion. Musculoskeletal The patient has joint pain, neck and back. Uses oral analgesics and flexeril. Instructed to hold NSAIDs 7 days prior to surgery. ID No diagnoses or significant findings on chart review or clinical presentation and evaluation. MRSA screening obtained. Prescriptions and instructions given for Hibiclens and Peridex. -Preoperative medication instructions were provided and reviewed with the patient. Any additional testing or evaluation was explained to the patient. NPO Instructions were discussed, and the patient's questions were answered prior to conclusion of this encounter. Patient verbalized understanding ofpreoperative instructions. After Visit Summary [facility]. [facility] [phone]) 707-688609-20-2024 History of Present illness Narrative* Ruel Lozano MD - 07/07/2024 10:30 AM EDT Lizbeth return to discuss treatment recommendations for prosthetic aortic stenosis, dilated ascending aorta and in stent coronary stenosis/ Echo showing aortic valve pk gradient 50.7/31.7 DI 0.26. mri measuring ascending aorta 4.8 also showing cholelithiasis. Last catheterization showed 90% in stent rca stenosis. Undergoing chemotherapy for breast cancer. Past history of 2004 avr cabg, htn, hld, carotid aso, past cva, a fib s/p aicd, tia/cva, repair abdominal aortic aneurysm with bifurcating graft. Patient comes to clinic to discuss treatment options for dilated ascending aorta, paravalvular AI and 8. Prosthetic aortic valve stenosis, and coronary artery disease. Patient is status post coronaryartery bypass grafting in the past. Patient now complains of shortness of breath and dizziness. Echo cardiography demonstrates prosthetic aortic valve stenosis with periprosthetic aortic insufficiency. In addition patient has dilated ascending aorta to 4.9 cm and severe coronary stenosis of her right coronary artery. In addition patient is undergoing treatment for breast cancer and they are unableto continue her therapy until her heart problems are fixed. Recommend redo median sternotomy, redo replacement of aortic valve with tissue valve, replacement of ascending aorta with Gelweave graft, and coronary artery bypass grafting x 1 with reverse saphenous vein graft to the right coronary artery. May need axillary artery cannulation as well as femoral vein cannulation. Risks, benefits, and alternatives discussed with patient, who wishes to proceed. documented in this [facility] Work Phone: [phone]) 434-645609-11-2024 History of Present illness Narrative* Cindy Bae MD - 06/28/2024 11:45 AM EDT Images from the original note were not included. Subjective Lizbeth Nixon is a 69 y.o. female Cancer Diagnosis: Breast Treatment: Plan for Cumulative Dose: Radiation: Risk Factors: Aortic valve insufficiency, arrythmia, CVA, CHF, HOCM, HTN, HLD, DE, CADs/p CABG/Stent, Pacer TIA Social Hx: Former Smoker Family Hx: Father heart disease Echo 02/11/2024 EF 45-50% Briefly patient is a 69-year-old female with a medical history of dual-chamber [employer] ICD (implanted 2010), generator replacement June 2023. Coronary artery disease status post CABG, aortic valve replacement and aortic aneurysm repair. There is an echocardiogram from outside hospital dated May 27, 2023 showing preserved left ventricular ejection fraction 55-60%, with severe LVH. There is concern for bioprosthetic aortic valve stenosis with mean systolic gradient 22 mmHg, dimensionless index 0.28 and calculated effective orifice area 0.8 cm . CTA showed dilated aorta at 4.9 cm. Cardiac catheterization (unclear date) noted in her outside court bailiff chart with documented all grafts down except FULLER- LAD, in-stent restenosisof RCA and markedly enlarged aorta. From the standpoint of her cancer-she has right-sided breast cancer with possible use of HER2/harman inhibitors. Cardiac history is as follows: -Ischemic heart disease: Status post CABG in 2004. One-vessel CABG performed with aortic valve replacement (bioprosthetic)/aortic aneurysm repair. Likely underlying bicuspid aortic valve -Aortic aneurysm/aortic valve replacement as detailed above. Most recent CTA October 2023 notes dimensions of 4.9 cm. Most recent echocardiogram as scanned in above -Status post ICD as primary prevention. Was shocked post ICD placement and has been on sotalol since. Since her last appointment the patient denies any exertional limitations. She does note occasional shortness of breath with exertion and chest heaviness towards the end of the day the changes with changing position. Denies any orthopnea/PND. Does not appear to have any lower extremity edema. Scheduled for open surgical aortic valve replacement +/- aneurysm repair August 01, 2024. Review of Systems A comprehensive review of systems was negative. Past Medical History: Diagnosis Date Anxiety Aortic valve insufficiency perivalvular aortic valve insufficiency- scheduled for surgery with Dr. Lozano. [place]rhythmia [place] [place] s/p repair abdominal aortic aneurysm Breast cancer (Multi) 11/2023 Right Breast- Have not seen the provider yet Cerebral vascular accident (Multi) 2009 no deficits x2 CHF (congestive heart failure) ([facility]) Congestive heart failure ([facility]) 12/01/2023 diastolic LVEF 70% BY 02/2012 STRESS NYHA CLASS II Coronary artery disease s/p cabgx 3 Depression Dizziness GERD (gastroesophageal reflux disease) controlle with protonix HOCM (hypertrophic obstructive cardiomyopathy) (Multi) 12/01/2023 Hyperlipidemia Hypertension Irregular heart beat afib s/p AICD Lumbosacral neuritis 06/28/2014 Occlusion and stenosis of bilateral carotid arteries 12/01/2023 Old myocardial infarction Other chest pain 12/01/2023 Presence of combination internal cardiac defibrillator (ICD) and pacemaker 2010 generator replacement completed 06/2023 Shortness of breath ROBERT TIA (transient ischemic attack) Vision loss stroke in left, wears glasses Past Surgical History: Procedure Laterality Date ABDOMINAL AORTIC ANEURYSM REPAIR 2004 AORTIC VALVE REPLACEMENT 2005 BREAST BIOPSY CARDIAC CATHETERIZATION CARDIAC VALVE REPLACEMENT CORONARY ARTERY BYPASS GRAFT 2004 CORONARY STENT PLACEMENT x4 HYSTERECTOMY INSERT / REPLACE / REMOVE PACEMAKER 2010 OTHER SURGICAL HISTORY 07/20/2019 Cardioverter defibrillator insertion OTHER SURGICAL HISTORY 07/24/2019 Arterial stent placement TONSILLECTOMY Allergies Allergen Reactions Grass Pollen Other House Dust Mite Other Family History Problem Relation Name Age of Onset Cancer Mother colon and breast Heart disease Father Cancer Sister breast Objective Visit Vitals BP 122/73 Pulse 67 Temp 36.2 C (97.2 F) (Core) Resp 16 Wt 64.8 kg (142 lb 14.4 oz) LMP (LMP Unknown) SpO2 97% BMI 27.80 kg/m OB Status Postmenopausal Smoking Status Former BSA 1.66 m General: awake, alert and oriented. No acute distress. Skin: Skin is warm, dry and intact without rashes or lesions. Appropriate color for ethnicity. Nailbeds pink with no cyanosis or clubbing HEENT: normocephalic, atraumatic; conjunctivae are clear without exudates or hemorrhage. Sclera is non-icteric. Eyelids are normal in appearance without swelling or lesions. Hearing intact. Nares arepatent bilaterally. Moist mucous membranes. Cardiovascular: Regular. Harsh systolic murmur; no gallops, or rubs are auscultated. S1 and S2 are heard and are of normal intensity. No JVD, no carotid bruits Respiratory: Thorax symmetric. CTAB, breath sounds vesicular. No crackles, wheezes or ronchi. Gastrointestinal: soft, non-distended, BS + x 4 Genitourinary: exam deferred Musculoskeletal: moves all extremities Extremities: pulses palpable bilaterally; no swelling or erythema; no edema Neurological: alert & oriented x 3; no focal deficits Psychiatric: appropriate mood and affect Current Outpatient Medications Medication Instructions amLODIPine (NORVASC) 5 mg, oral, Daily aspirin 81 mg, oral, Daily RT calcium carbonate 600 mg, oral, Daily chlorhexidine (Hibiclens) 4 % external liquid Use as directed daily preoperatively chlorhexidine (Peridex) 0.12 % solution Swish and spit with 15ml of solution the night before and morning of surgery. Do not swallow. cyclobenzaprine (FLEXERIL) 10 mg, oral, 3 times daily PRN lidocaine-prilocaine (Emla) 2.5-2.5 % cream 1 Application, Topical, Once lisinopril 40 mg, oral, Daily loratadine (CLARITIN) 10 mg, oral, Daily, To be taken the day of chemotherapy and for 5 days following each infusion melatonin 10 mg, oral, Nightly PRN nitroglycerin (NITROSTAT) 0.4 mg, sublingual, Every 5 min PRN OLANZapine (ZYPREXA) 2.5 mg, oral, Nightly ondansetron (ZOFRAN) 8 mg, oral, Every 8 hours PRN pantoprazole (PROTONIX) 40 mg, oral, Daily before breakfast rosuvastatin (CRESTOR) 20 mg, oral, Daily sertraline (ZOLOFT) 100 mg, oral, Daily sotalol (BETAPACE) 120 mg, oral, Every 12 hours traZODone (DESYREL) 100 mg, oral, Nightly PRN Lab Review Lab Results Component Value Date HGB 9.2 (L) 06/23/2024 HGB 8.1 (L) 06/16/2024 HGB 8.0 (L) 06/09/2024 PLT 127 (L) 06/23/2024 WBC 3.9 (L) 06/23/2024 NA 139 06/23/2024 K 4.6 06/23/2024 CREATININE 0.83 06/23/2024 CREATININE 0.74 06/16/2024 CREATININE 0.74 06/16/2024 BUN 14 06/23/2024 CALCIUM 8.7 06/23/2024 INR 1.2 (H) 06/06/2024 BNP 799 (H) 06/06/2024 TROPHS 45 (H) 03/08/2024 Assessment/Plan Cardiac issues are as follows: Ischemic cardiomyopathy with normal ejection fraction -Current medical therapy includes lisinopril 40 mg, sotalol 120 mg twice daily -On aspirin 81 mg, rosuvastatin 20 mg -Most recent cardiac catheterization notes patent FULLER-LAD. Bioprosthetic valve stenosis/regurgitation -Most recent echocardiogram performed February 2024 notes moderate-severe bioprosthetic aortic stenosis/valve stenosis with mild regurgitation. -MRA angiogram performed May 2024 noted ascending aortic aneurysm with the dimension measuring 4.8 cm Intent to use cardiotoxic chemotherapy -Patient has limited reserve. Her underlying obstructive CAD, at least moderate degree of bioprosthetic valve stenosis puts her at very high risk. -at present the risk from cardiotoxicity from trastuzumab appears to be prohibitively high Plan: -For the bioprosthetic valve stenosis with concurrent aneurysm: Surgical aortic valve replacement/aneurysm repair appears to be the best course forward. Has an upcoming appointment with CV surgery todiscuss the same -Once her valvular issues have been treated: Can consider further surgery for breast cancer/cardiotoxic chemotherapy -RTC 3 months Cindy Bae MD Advanced Heart Failure/Transplant Cardiology Cardio-Oncology [facility] documented in this [facility] Work Phone: [phone]) 347-600709-11-2024 Instructions* Patient Instructions* Katrin Rodriguez RN - 06/28/2024 11:45 AM EDT Follow up with Dr. Bae in 3 months documented in this [facility] Work Phone: [phone]) 693-751309-11-2024 History of Present illness Narrative* Marcelo Davey MD - 06/28/2024 10:40 AM EDT Images from the original note were not included. Breast Medical Oncology Clinic Location: Virtual BREAST CANCER DIAGNOSIS Malignant neoplasm of lower-outer quadrant of right breast of female, estrogen receptor negative (Multi), Clinical: Stage IIB (cT2(m), cN1(f), cM0, G3, ER-, WV-, HER2+) CURRENT THERAPY S/p 3 cycles of dose reduced gemcitabine/carboplatin days 1 and 8 q21 days HISTORY OF PRESENT ILLNESS Lizbeth Nixon is a 69 y.o. woman with incidentally found breast cancer after chest CT for heart surgery work up (she has aortic valve disease) found breast mass and axillary adenopathy in the right breast. Biopsy of both revealed HER2+, ER/WV- breast cancer. Other outside staging workup raised the possibility of oligo bone metastases however the data was unconvincing. Outside PET/CT vaguely showed two areas in the upper spine but MRI suggests that this could be degenerative disease. Bone scan was definitely negative for bone mets. Cardio- oncology advised against Her2 mAB therapy as she has little cardiac reserve and will need to have aortic valve repair first. She has been on gem/carbo with clinical response in breast. Here for visit. She was hospitalized for severe anemia and cardiac ischemia. Feeling better now. Scheduled later this week to see cardiology and tentative cardiac surgerynext month. Still with significant fatigue. Review of Systems Constitutional: Positive for fatigue. Negative for appetite change, chills and diaphoresis. HENT: Negative. Negative for hearing loss and lump/mass. Eyes: Negative. Negative for eye problems and icterus. Respiratory: Negative. Negative for chest tightness, cough, hemoptysis, shortness of breath and wheezing. Cardiovascular: Negative. Negative for chest pain, leg swelling and palpitations. Gastrointestinal: Negative for abdominal distention, abdominal pain, blood in stool, constipation, diarrhea and nausea. Endocrine: Negative for hot flashes. Genitourinary: Negative for bladder incontinence, difficulty urinating, dyspareunia, dysuria, frequency and hematuria. Musculoskeletal: Negative for arthralgias, back pain, gait problem and myalgias. Skin: Negative for rash. Neurological: Negative for dizziness, extremity weakness, gait problem, headaches, numbness and seizures. Hematological: Negative for adenopathy. Does not bruise/bleed easily. Psychiatric/Behavioral: Negative for confusion, depression and sleep disturbance. The patient is not nervous/anxious. All other systems reviewed and are negative. Past Medical History: has a past medical history of Anxiety, Aortic valve insufficiency, Arrhythmia, [place] [place]) (11/2023), Cerebral vascular accident ([facility]) (2009), CHF (congestive heart failure) ([facility]), Congestive heart failure ([facility]) (12/01/2023),Coronary artery disease, Depression, Dizziness, GERD (gastroesophageal reflux disease), HOCM (hypertrophic obstructive cardiomyopathy) ([facility]) (12/01/2023), Hyperlipidemia, Hypertension, Irregular heart beat, Lumbosacral neuritis (06/28/2014), Occlusion and stenosis of bilateral carotid arteries (12/01/2023), Old myocardial infarction, Other chest pain (12/01/2023), Presence of combination internal cardiac defibrillator (ICD) and pacemaker (2010), Shortness of breath, TIA (transient ischemic attack), and Vision loss. Surgical History: has a past surgical history that includes Other surgical history (07/20/2019); Other surgical history (07/24/2019); Tonsillectomy; Hysterectomy; Cardiac catheterization; Coronary stent placement; Breast biopsy; Coronary artery bypass graft (2004); Insert / replace / remove pacemaker (2010); Aortic valve replacement (2004); Cardiac valve replacement; and Abdominal aortic aneurysmrepair (2004). Social History: reports that she quit smoking about 19 years ago. Her smoking use included cigarettes. She has never been exposed to tobacco smoke. She has never used smokeless tobacco. She reports that she does not drink alcohol and does not use drugs. Family History: Family History Problem Relation Name Age of Onset Cancer Mother colon and breast Heart disease Father Cancer Sister breast Family Oncology History: Cancer-related family history includes Cancer in her mother and sister. OBJECTIVE VS / Pain: BP 115/72 (BP Location: Right arm, Patient Position: Sitting, BP Cuff Size: Large adult) Pulse 63 Temp 36.6 C (97.9 F) (Temporal) Wt 64.9 kg (143 lb 3 oz) LMP (LMP Unknown) BMI 27.85 kg/m BSA: 1.66 meters squared Pain Scale: 2 Performance Status: The ECOG performance scale today is ECO- Restricted in physically strenuous activity. Carries out light duty. Physical Exam Vitals reviewed. Cardiovascular: Rate and Rhythm: Normal rate. Heart sounds: Murmur (+loud aortic murmur) heard. Neurological: General: No focal deficit present. Mental Status: She is oriented to person, place, and time. Diagnostic Results TRANSTHORACIC ECHOCARDIOGRAM REPORT Patient Name: LIZBETH Lewis Physician: [id number] Vikram Scohfield MD Study Date: 02/11/2024 Ordering Provider: [id number] MARCELO DAVEY MRN/PID: [id number] Fellow: Nurse: Date of /Age: 401/26/1955 / 69 years 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 CPT Code: Echo Limited-73904; Myocardial Strain Imaging-48711; Doppler Limited-46335 Study Detail: The following Echo studies were performed: 2D, M-Mode, Doppler and color flow. PHYSICIAN INTERPRETATION: Left Ventricle: The left ventricular systolic function is mildly decreased, with an estimated ejection fraction of 45-50%. There is global hypokinesis of the left ventricle with minor regional variations. The left ventricular cavity size is normal. There is moderate concentric left ventricular hypertrophy. Left Ventricular Global Longitudinal Strain - -12.4 %. Left ventricular diastolic filling was not assessed. Left Atrium: The left atrium was not assessed. Right Ventricle: The right ventricle is normal in size. There is low normal right ventricular systolic function. A device is visualized in the right ventricle. Right Atrium: The right atrium is upper limits of normal in size. There is a device visualized in the right atrium. Aortic Valve: The aortic valve appears abnormal. There is moderate aortic valve cusp calcification.There is moderate aortic valve thickening. There is mild aortic valve regurgitation. Aortic valve appears degenerative. Gradients were not assed with current study. Consider repeat evaluation for thorough evaluation. Mitral Valve: The mitral valve is mildly thickened. There is mild mitral annular calcification. There is trace mitral valve regurgitation. Tricuspid Valve: The tricuspid valve is structurally normal. There is trace tricuspid regurgitation. Pulmonic Valve: The pulmonic valve is structurally normal. There is trace pulmonic valve regurgitation. Pericardium: There is a trivial pericardial effusion. Aorta: The aortic root is normal. There is mild dilatation of the ascending aorta. There is no dilatation of the aortic root. In comparison to the previous echocardiogram(s): There are no prior studies on this patient for comparison purposes. CONCLUSIONS: 1. Left ventricular systolic function is mildly decreased with a 45-50% estimated ejection fraction. 2. There is global hypokinesis of the left ventricle with minor regional variations. 3. Left Ventricular Global Longitudinal Strain - -12.4 %. 4. There is moderate concentric left ventricular hypertrophy. 5. There is low normal right ventricular systolic function. 6. Aortic valve appears abnormal. 7. Aortic valve appears degenerative. Gradients were not assed with current study. Consider repeat evaluation for thorough evaluation. 8. Mild aortic valve regurgitation. QUANTITATIVE DATA SUMMARY: 2D MEASUREMENTS: Normal Ranges: IVSd: 1.90 cm (0.6-1.1cm) LVPWd: 1.70 cm (0.6-1.1cm) LVIDd: 3.60 cm (3.9-5.9cm) LVIDs: 2.10 cm LV Mass Index: 163.5 g/m2 LV % FS 41.7 % AORTA MEASUREMENTS: Normal Ranges: Asc Ao, d: 3.70 cm (2.1-3.4cm) LV SYSTOLIC FUNCTION BY 2D PLANIMETRY (MOD): Normal Ranges: EF-A4C View: 49.9 % (>=55%) EF-A2C View: 42.8 % EF-Biplane: 46.4 % Global Longitudinal Strain (GLS): -12.4 % === 05/08/24 === NM BONE WHOLE BODY - Impression - No evidence of osseous metastatic disease. Degenerative changes as described above. I personally reviewed the images/study and I agree with the findings as stated. This study was interpreted at [facility], [place], [place]. MACRO: None Signed by: Luis Manuel Parrish 02/23/2024 3:29 PM Dictation workstation: [id number] LABORATORY/PATHOLOGY DATA Lab on 06/23/2024 Component Date Value Ref Range Status Glucose 06/23/2024 115 (H) 74 - 99 mg/dL Final Sodium 06/23/2024 139 136 - 145 mmol/L Final Potassium 06/23/2024 4.6 3.5 - 5.3 mmol/L Final Chloride 06/23/2024 102 98 - 107 mmol/L Final Bicarbonate 06/23/2024 28 21 - 32 mmol/L Final Anion Gap 06/23/2024 14 10 - 20 mmol/L Final Urea Nitrogen 06/23/2024 14 6 - 23 mg/dL Final Creatinine 06/23/2024 0.83 0.50 - 1.05 mg/dL Final eGFR 06/23/2024 76 >60 mL/min/1.73m*2 Final Calcium 06/23/2024 8.7 8.6 - 10.6 mg/dL Final Albumin 06/23/2024 4.2 3.4 - 5.0 g/dL Final Alkaline Phosphatase 06/23/2024 185 (H) 33 - 136 U/L Final Total Protein 06/23/2024 6.6 6.4 - 8.2 g/dL Final AST 06/23/2024 26 9 - 39 U/L Final Bilirubin, Total 06/23/2024 0.8 0.0 - 1.2 mg/dL Final ALT 06/23/2024 23 7 - 45 U/L Final WBC 06/23/2024 3.9 (L) 4.4 - 11.3 x10*3/uL Final nRBC 06/23/2024 Final RBC 06/23/2024 3.00 (L) 4.00 - 5.20 x10*6/uL Final Hemoglobin 06/23/2024 9.2 (L) 12.0 - 16.0 g/dL Final Hematocrit 06/23/2024 28.6 (L) 36.0 - 46.0 % Final MCV 06/23/2024 95 80 - 100 fL Final MCH 06/23/2024 30.7 26.0 - 34.0 pg Final MCHC 06/23/2024 32.2 32.0 - 36.0 g/dL Final RDW 06/23/2024 21.7 (H) 11.5 - 14.5 % Final Platelets 06/23/2024 127 (L) 150 - 450 x10*3/uL Final Neutrophils % 06/23/2024 36.3 40.0 - 80.0 % Final Immature Granulocytes %, Automated 06/23/2024 0.3 0.0 - 0.9 % Final Lymphocytes % 06/23/2024 43.0 13.0 - 44.0 % Final Monocytes % 06/23/2024 19.1 2.0 - 10.0 % Final Eosinophils % 06/23/2024 1.0 0.0 - 6.0 % Final Basophils % 06/23/2024 0.3 0.0 - 2.0 % Final Neutrophils Absolute 06/23/2024 1.43 1.20 - 7.70 x10*3/uL Final Immature Granulocytes Absolute, Au* 06/23/2024 0.01 0.00 - 0.70 x10*3/uL Final Lymphocytes Absolute 06/23/2024 1.69 1.20 - 4.80 x10*3/uL Final Monocytes Absolute 06/23/2024 0.75 0.10 - 1.00 x10*3/uL Final Eosinophils Absolute 06/23/2024 0.04 0.00 - 0.70 x10*3/uL Final Basophils Absolute 06/23/2024 0.01 0.00 - 0.10 x10*3/uL Final Lab on 06/16/2024 Component Date Value Ref Range Status WBC 06/16/2024 3.6 (L) 4.4 - 11.3 x10*3/uL Final nRBC 06/16/2024 Final RBC 06/16/2024 2.69 (L) 4.00 - 5.20 x10*6/uL Final Hemoglobin 06/16/2024 8.1 (L) 12.0 - 16.0 g/dL Final Hematocrit 06/16/2024 24.4 (L) 36.0 - 46.0 % Final MCV 06/16/2024 91 80 - 100 fL Final MCH 06/16/2024 30.1 26.0 - 34.0 pg Final MCHC 06/16/2024 33.2 32.0 - 36.0 g/dL Final RDW 06/16/2024 18.3 (H) 11.5 - 14.5 % Final Platelets 06/16/2024 81 (L) 150 - 450 x10*3/uL Final Immature Granulocytes %, Automated 06/16/2024 4.4 (H) 0.0 - 0.9 % Final Immature Granulocytes Absolute, Au* 06/16/2024 0.16 0.00 - 0.70 x10*3/uL Final Glucose 06/16/2024 85 74 - 99 mg/dL Final Sodium 06/16/2024 139 136 - 145 mmol/L Final Potassium 06/16/2024 4.9 3.5 - 5.3 mmol/L Final Chloride 06/16/2024 99 98 - 107 mmol/L Final Bicarbonate 06/16/2024 32 21 - 32 mmol/L Final Anion Gap 06/16/2024 13 10 - 20 mmol/L Final Urea Nitrogen 06/16/2024 9 6 - 23 mg/dL Final Creatinine 06/16/2024 0.74 0.50 - 1.05 mg/dL Final eGFR 06/16/2024 87 >60 mL/min/1.73m*2 Final Calcium 06/16/2024 8.5 (L) 8.6 - 10.6 mg/dL Final Albumin 06/16/2024 3.8 3.4 - 5.0 g/dL Final Alkaline Phosphatase 06/16/2024 241 (H) 33 - 136 U/L Final Total Protein 06/16/2024 6.2 (L) 6.4 - 8.2 g/dL Final AST 06/16/2024 34 9 - 39 U/L Final Bilirubin, Total 06/16/2024 1.1 0.0 - 1.2 mg/dL Final ALT 06/16/2024 47 (H) 7 - 45 U/L Final Glucose 06/16/2024 85 74 - 99 mg/dL Final Sodium 06/16/2024 139 136 - 145 mmol/L Final Potassium 06/16/2024 4.9 3.5 - 5.3 mmol/L Final Chloride 06/16/2024 99 98 - 107 mmol/L Final Bicarbonate 06/16/2024 32 21 - 32 mmol/L Final Anion Gap 06/16/2024 13 10 - 20 mmol/L Final Urea Nitrogen 06/16/2024 9 6 - 23 mg/dL Final Creatinine 06/16/2024 0.74 0.50 - 1.05 mg/dL Final eGFR 06/16/2024 87 >60 mL/min/1.73m*2 Final Calcium 06/16/2024 8.5 (L) 8.6 - 10.6 mg/dL Final Neutrophils %, Manual 06/16/2024 43.0 40.0 - 80.0 % Final Lymphocytes %, Manual 06/16/2024 23.0 13.0 - 44.0 % Final Monocytes %, Manual 06/16/2024 30.0 2.0 - 10.0 % Final Eosinophils %, Manual 06/16/2024 1.0 0.0 - 6.0 % Final Basophils %, Manual 06/16/2024 0.0 0.0 - 2.0 % Final Atypical Lymphocytes %, Manual 06/16/2024 2.0 0.0 - 2.0 % Final Metamyelocytes %, Manual 06/16/2024 1.0 0.0 - 0.0 % Final Seg Neutrophils Absolute, Manual 06/16/2024 1.55 1.20 - 7.00 x10*3/uL Final Lymphocytes Absolute, Manual 06/16/2024 0.83 (L) 1.20 - 4.80 x10*3/uL Final Monocytes Absolute, Manual 06/16/2024 1.08 (H) 0.10 - 1.00 x10*3/uL Final Eosinophils Absolute, Manual 06/16/2024 0.04 0.00 - 0.70 x10*3/uL Final Basophils Absolute, Manual 06/16/2024 0.00 0.00 - 0.10 x10*3/uL Final Atypical Lymphs Absolute, Manual 06/16/2024 0.07 0.00 - 0.50 x10*3/uL Final Metamyelocytes Absolute, Manual 06/16/2024 0.04 0.00 - 0.00 x10*3/uL Final Total Cells Counted 06/16/2024 100 Final Manual nRBC per 100 Cells 06/16/2024 1.0 (H) 0.0 - 0.0 % Final RBC Morphology 06/16/2024 See Below Final Polychromasia 06/16/2024 Mild Final No results displayed because visit has over 200 results. Infusion on 05/30/2024 Component Date Value Ref Range Status WBC 05/30/2024 10.7 4.4 - 11.3 x10*3/uL Final nRBC 05/30/2024 Final RBC 05/30/2024 2.63 (L) 4.00 - 5.20 x10*6/uL Final Hemoglobin 05/30/2024 7.8 (L) 12.0 - 16.0 g/dL Final Hematocrit 05/30/2024 23.8 (L) 36.0 - 46.0 % Final MCV 05/30/2024 91 80 - 100 fL Final MCH 05/30/2024 29.7 26.0 - 34.0 pg Final MCHC 05/30/2024 32.8 32.0 - 36.0 g/dL Final RDW 05/30/2024 17.2 (H) 11.5 - 14.5 % Final Platelets 05/30/2024 155 150 - 450 x10*3/uL Final Neutrophils % 05/30/2024 86.9 40.0 - 80.0 % Final Immature Granulocytes %, Automated 05/30/2024 0.3 0.0 - 0.9 % Final Lymphocytes % 05/30/2024 8.1 13.0 - 44.0 % Final Monocytes % 05/30/2024 3.5 2.0 - 10.0 % Final Eosinophils % 05/30/2024 1.1 0.0 - 6.0 % Final Basophils % 05/30/2024 0.1 0.0 - 2.0 % Final Neutrophils Absolute 05/30/2024 9.30 (H) 1.20 - 7.70 x10*3/uL Final Immature Granulocytes Absolute, Au* 05/30/2024 0.03 0.00 - 0.70 x10*3/uL Final Lymphocytes Absolute 05/30/2024 0.87 (L) 1.20 - 4.80 x10*3/uL Final Monocytes Absolute 05/30/2024 0.37 0.10 - 1.00 x10*3/uL Final Eosinophils Absolute 05/30/2024 0.12 0.00 - 0.70 x10*3/uL Final Basophils Absolute 05/30/2024 0.01 0.00 - 0.10 x10*3/uL Final Glucose 05/30/2024 109 (H) 74 - 99 mg/dL Final Sodium 05/30/2024 133 (L) 136 - 145 mmol/L Final Potassium 05/30/2024 4.3 3.5 - 5.3 mmol/L Final Chloride 05/30/2024 96 (L) 98 - 107 mmol/L Final Bicarbonate 05/30/2024 32 21 - 32 mmol/L Final Anion Gap 05/30/2024 9 (L) 10 - 20 mmol/L Final Urea Nitrogen 05/30/2024 19 6 - 23 mg/dL Final Creatinine 05/30/2024 1.02 0.50 - 1.05 mg/dL Final eGFR 05/30/2024 59 (L) >60 mL/min/1.73m*2 Final Calcium 05/30/2024 8.0 (L) 8.6 - 10.6 mg/dL Final ABO TYPE 05/30/2024 B Final Rh TYPE 05/30/2024 POS Final ANTIBODY SCREEN 05/30/2024 NEG Final Ferritin 05/30/2024 674 (H) 8 - 150 ng/mL Final Iron 05/30/2024 191 (H) 35 - 150 ug/dL Final UIBC 05/30/2024 161 110 - 370 ug/dL Final TIBC 05/30/2024 352 240 - 445 ug/dL Final % Saturation 05/30/2024 54 (H) 25 - 45 % Final Folate, Serum 05/30/2024 5.0 (L) >5.0 ng/mL Final Vitamin B12 05/30/2024 1,099 (H) 211 - 911 pg/mL Final Infusion on 05/23/2024 Component Date Value Ref Range Status WBC 05/23/2024 3.8 (L) 4.4 - 11.3 x10*3/uL Final nRBC 05/23/2024 Final RBC 05/23/2024 2.70 (L) 4.00 - 5.20 x10*6/uL Final Hemoglobin 05/23/2024 7.9 (L) 12.0 - 16.0 g/dL Final Hematocrit 05/23/2024 24.1 (L) 36.0 - 46.0 % Final MCV 05/23/2024 89 80 - 100 fL Final MCH 05/23/2024 29.3 26.0 - 34.0 pg Final MCHC 05/23/2024 32.8 32.0 - 36.0 g/dL Final RDW 05/23/2024 14.3 11.5 - 14.5 % Final Platelets 05/23/2024 107 (L) 150 - 450 x10*3/uL Final Neutrophils % 05/23/2024 61.2 40.0 - 80.0 % Final Immature Granulocytes %, Automated 05/23/2024 0.3 0.0 - 0.9 % Final Lymphocytes % 05/23/2024 23.2 13.0 - 44.0 % Final Monocytes % 05/23/2024 12.4 2.0 - 10.0 % Final Eosinophils % 05/23/2024 2.4 0.0 - 6.0 % Final Basophils % 05/23/2024 0.5 0.0 - 2.0 % Final Neutrophils Absolute 05/23/2024 2.32 1.20 - 7.70 x10*3/uL Final Immature Granulocytes Absolute, Au* 05/23/2024 0.01 0.00 - 0.70 x10*3/uL Final Lymphocytes Absolute 05/23/2024 0.88 (L) 1.20 - 4.80 x10*3/uL Final Monocytes Absolute 05/23/2024 0.47 0.10 - 1.00 x10*3/uL Final Eosinophils Absolute 05/23/2024 0.09 0.00 - 0.70 x10*3/uL Final Basophils Absolute 05/23/2024 0.02 0.00 - 0.10 x10*3/uL Final Glucose 05/23/2024 107 (H) 74 - 99 mg/dL Final Sodium 05/23/2024 134 (L) 136 - 145 mmol/L Final Potassium 05/23/2024 4.5 3.5 - 5.3 mmol/L Final Chloride 05/23/2024 98 98 - 107 mmol/L Final Bicarbonate 05/23/2024 26 21 - 32 mmol/L Final Anion Gap 05/23/2024 15 10 - 20 mmol/L Final Urea Nitrogen 05/23/2024 20 6 - 23 mg/dL Final Creatinine 05/23/2024 1.01 0.50 - 1.05 mg/dL Final eGFR 05/23/2024 60 (L) >60 mL/min/1.73m*2 Final Calcium 05/23/2024 8.2 (L) 8.6 - 10.6 mg/dL Final Albumin 05/23/2024 3.8 3.4 - 5.0 g/dL Final Alkaline Phosphatase 05/23/2024 133 33 - 136 U/L Final Total Protein 05/23/2024 6.2 (L) 6.4 - 8.2 g/dL Final AST 05/23/2024 29 9 - 39 U/L Final Bilirubin, Total 05/23/2024 0.4 0.0 - 1.2 mg/dL Final ALT 05/23/2024 34 7 - 45 U/L Final Hospital Outpatient Visit on 05/19/2024 Component Date Value Ref Range Status BSA 05/19/2024 1.69 m2 In process Hospital Outpatient Visit on 05/19/2024 Component Date Value Ref Range Status BSA 05/19/2024 1.69 m2 In process Outside pathology report reviewed. IMPRESSION/PLAN [id number] HER2+/ER-/WV- right sided breast cancer. Since she isn't a candidate for standard HER2 therapy as per cardio-oncology and due to recent admission due to chemotherapy despite low dose carbo/gem will suspend chemotherapy for now. She's currently not a candidate for breast surgery given severeaortic stenosis and will need cardiac surgery before breast surgery or her2 therapy. I will see her back in about 4-6 weeks post cardiac surgery. We discussed the clinical significance of diagnosis, goals of care and treatment plan in detail. I personally spent over half of a total 35 minutes face to face with the patient in counseling and discussion and/or coordination of care as described above. Marcelo Davey MD Director of Breast Cancer Medical Oncology Research Program [facility] environmental communications specialist [address] [place] [address] [email or web address] in this [facility] Work Phone: 1(920) 850-448209-11-2024 Instructions* Patient Instructions* Pearl Mason RN - 06/28/2024 10:40 AM EDT Please call us at [phone] option 5 then option 2 with any questions or concerns Follow-up with me after heart surgery, Probably in about 2-3 months No further chemo for now Thanks [facility] Work Phone: 1(408) 421-261308-26-2024 History of Present illness Narrative* Neli Cox APRN-KATELIN - 06/12/2024 2:30 PM EDT Images from the original note were not included. Breast Medical Oncology Clinic Location: Virtual BREAST CANCER DIAGNOSIS Malignant neoplasm of lower-outer quadrant of right breast of female, estrogen receptor negative (Multi), Clinical: Stage IIB (cT2(m), cN1(f), cM0, G3, ER-, WV-, HER2+) Prior THERAPY dose reduced gemcitabine/carboplatin days 1 and 8 q21 days HISTORY OF PRESENT ILLNESS Lizbeth Nixon is a 69 y.o. woman with incidentally found breast cancer after chest CT for heart surgery work up (she has aortic valve disease) found breast mass and axillary adenopathy in the right breast. Biopsy of both revealed HER2+, ER/WV- breast cancer. Other outside staging workup raised the possibility of oligo bone metastases however the data was unconvincing. Outside PET/CT vaguely showed two areas in the upper spine but MRI suggests that this could be degenerative disease. Bone scan was definitely negative for bone mets. Cardio- oncology advised against Her2 mAB therapy as she has little cardiac reserve and will need to have aortic valve repair first. She has been on gem/carbo with clinical response in breast. Here for virtual visit given recent hospitalization. She meets today virtually today to discuss with next steps. Apt held in collaboration with Dr Marcelo Davey. Pt reports feeling well, is wondering if she can have more chemo. She denies any new concerns in the right breast and reports resolve of stabbing pains in the right breast as this has stopped since after the chemo began. She denies any current breathing issues. Reports swelling in feet and ankles which is new since coming home from the hospital. She denies any new fever or chills or illness. Reports chronic neck boneaches. Reports scant dried nasal bleeding with nose wiping. Review of Systems Constitutional: Positive for fatigue. Negative for appetite change, chills and diaphoresis. HENT: Negative. Negative for hearing loss and lump/mass. Eyes: Negative. Negative for eye problems and icterus. Respiratory: Negative. Negative for chest tightness, cough, hemoptysis, shortness of breath and wheezing. Cardiovascular: Negative. Negative for chest pain, leg swelling and palpitations. Gastrointestinal: Negative for abdominal distention, abdominal pain, blood in stool, constipation, diarrhea and nausea. Endocrine: Negative for hot flashes. Genitourinary: Negative for bladder incontinence, difficulty urinating, dyspareunia, dysuria, frequency and hematuria. Musculoskeletal: Negative for arthralgias, back pain, gait problem and myalgias. Skin: Negative for rash. Neurological: Negative for dizziness, extremity weakness, gait problem, headaches, numbness and seizures. Hematological: Negative for adenopathy. Does not bruise/bleed easily. Psychiatric/Behavioral: Negative for confusion, depression and sleep disturbance. The patient is not nervous/anxious. All other systems reviewed and are negative. Past Medical History: has a past medical history of Anxiety, Aortic valve insufficiency, Arrhythmia, Ascending aorta dilation ([facility]), Breast cancer (Multi) (11/2023), Cerebral vascular accident (Multi) (2009), CHF (congestive heart failure) (Multi), Congestive heart failure (Multi) (12/01/2023),Coronary artery disease, Depression, Dizziness, GERD (gastroesophageal reflux disease), HOCM (hypertrophic obstructive cardiomyopathy) (Multi) (12/01/2023), Hyperlipidemia, Hypertension, Irregular heart beat, Lumbosacral neuritis (06/28/2014), Occlusion and stenosis of bilateral carotid arteries (12/01/2023), Old myocardial infarction, Other chest pain (12/01/2023), Presence of combination internal cardiac defibrillator (ICD) and pacemaker (2010), Shortness of breath, TIA (transient ischemic attack), and Vision loss. Surgical History: has a past surgical history that includes Other surgical history (07/20/2019); Other surgical history (07/24/2019); Tonsillectomy; Hysterectomy; Cardiac catheterization; Coronary stent placement; Breast biopsy; Coronary artery bypass graft (2004); Insert / replace / remove pacemaker (2010); Aortic valve replacement (2004); Cardiac valve replacement; and Abdominal aortic aneurysmrepair (2004). Social History: reports that she quit smoking about 19 years ago. Her smoking use included cigarettes. She has never been exposed to tobacco smoke. She has never used smokeless tobacco. She reports that she does not drink alcohol and does not use drugs. Family History: Family History Problem Relation Name Age of Onset Cancer Mother colon and breast Heart disease Father Cancer Sister breast Family Oncology History: Cancer-related family history includes Cancer in her mother and sister. OBJECTIVE VS / Pain: LMP (LMP Unknown) None today with virtual visit BSA: There is no height or weight on file to calculate BSA. Pain Scale: 2 Performance Status: The ECOG performance scale today is ECO- Restricted in physically strenuous activity. Carries out light duty. Physical Exam Vitals reviewed. Neurological: General: No focal deficit present. Mental Status: She is oriented to person, place, and time. Diagnostic Results TRANSTHORACIC ECHOCARDIOGRAM REPORT Patient Name: LIZBETH Lewis Physician: [id number] Vikram Schofield MD Study Date: 02/11/2024 Ordering Provider: [id number] MARCELO DAVEY MRN/PID: [id number] Fellow: Nurse: Date of /Age: 401/26/1955 / 69 years 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 CPT Code: Echo Limited-21911; Myocardial Strain Imaging-23693; Doppler Limited-61210 Study Detail: The following Echo studies were performed: 2D, M-Mode, Doppler and color flow. PHYSICIAN INTERPRETATION: Left Ventricle: The left ventricular systolic function is mildly decreased, with an estimated ejection fraction of 45-50%. There is global hypokinesis of the left ventricle with minor regional variations. The left ventricular cavity size is normal. There is moderate concentric left ventricular hypertrophy. Left Ventricular Global Longitudinal Strain - -12.4 %. Left ventricular diastolic filling was not assessed. Left Atrium: The left atrium was not assessed. Right Ventricle: The right ventricle is normal in size. There is low normal right ventricular systolic function. A device is visualized in the right ventricle. Right Atrium: The right atrium is upper limits of normal in size. There is a device visualized in the right atrium. Aortic Valve: The aortic valve appears abnormal. There is moderate aortic valve cusp calcification.There is moderate aortic valve thickening. There is mild aortic valve regurgitation. Aortic valve appears degenerative. Gradients were not assed with current study. Consider repeat evaluation for thorough evaluation. Mitral Valve: The mitral valve is mildly thickened. There is mild mitral annular calcification. There is trace mitral valve regurgitation. Tricuspid Valve: The tricuspid valve is structurally normal. There is trace tricuspid regurgitation. Pulmonic Valve: The pulmonic valve is structurally normal. There is trace pulmonic valve regurgitation. Pericardium: There is a trivial pericardial effusion. Aorta: The aortic root is normal. There is mild dilatation of the ascending aorta. There is no dilatation of the aortic root. In comparison to the previous echocardiogram(s): There are no prior studies on this patient for comparison purposes. CONCLUSIONS: 1. Left ventricular systolic function is mildly decreased with a 45-50% estimated ejection fraction. 2. There is global hypokinesis of the left ventricle with minor regional variations. 3. Left Ventricular Global Longitudinal Strain - -12.4 %. 4. There is moderate concentric left ventricular hypertrophy. 5. There is low normal right ventricular systolic function. 6. Aortic valve appears abnormal. 7. Aortic valve appears degenerative. Gradients were not assed with current study. Consider repeat evaluation for thorough evaluation. 8. Mild aortic valve regurgitation. QUANTITATIVE DATA SUMMARY: 2D MEASUREMENTS: Normal Ranges: IVSd: 1.90 cm (0.6-1.1cm) LVPWd: 1.70 cm (0.6-1.1cm) LVIDd: 3.60 cm (3.9-5.9cm) LVIDs: 2.10 cm LV Mass Index: 163.5 g/m2 LV % FS 41.7 % AORTA MEASUREMENTS: Normal Ranges: Asc Ao, d: 3.70 cm (2.1-3.4cm) LV SYSTOLIC FUNCTION BY 2D PLANIMETRY (MOD): Normal Ranges: EF-A4C View: 49.9 % (>=55%) EF-A2C View: 42.8 % EF-Biplane: 46.4 % Global Longitudinal Strain (GLS): -12.4 % === 02/23/24 === NM BONE WHOLE BODY - Impression - No evidence of osseous metastatic disease. Degenerative changes as described above. I personally reviewed the images/study and I agree with the findings as stated. This study was interpreted at [facility], [place], [place]. MACRO: None Signed by: Luis Manuel Parrish 02/23/2024 3:29 PM Dictation workstation: [id number] LABORATORY/PATHOLOGY DATA Lab Results Component Value Date WBC 2.4 (L) 06/09/2024 HGB 8.0 (L) 06/09/2024 HCT 23.6 (L) 06/09/2024 MCV 85 06/09/2024 PLT 34 (LL) 06/09/2024 Chemistry Lab Results Component Value Date/Time NA 135 (L) 06/08/2024 0616 K 3.8 06/08/2024 0616 CL 101 06/08/2024 0616 CO2 22 06/08/2024 0616 BUN 27 (H) 06/08/2024 0616 CREATININE 0.76 06/08/2024 0616 Lab Results Component Value Date/Time CALCIUM 7.5 (L) 06/08/2024 0616 ALKPHOS 318 (H) 06/07/20242008 AST 69 (H) 06/07/20242008 ALT 54 (H) 06/07/20242008 BILITOT 1.5 (H) 06/07/20242008 , Outside pathology report reviewed. IMPRESSION/PLAN [id number] HER2+/ER-/WV- right sided breast cancer. Not a candidate for standard HER2 therapy as per cardio-oncology was treated with low dose carbo/gem, clinical response. Is not a candidate for breast surgery given severe aortic stenosis - planned cardiac surgery with Dr Lozano in Fall 2023. Given recent worsening of condition will hold chemo as discussed today with Dr Marcelo Davey. She is agreeable to this plan. Repeat labs later this week towatch anemia and low platelet count. RTC 06/28/24 Dr Marcelo Davey At least 17 minutes of virtual consultation was spent with the patient today reviewing her cancer care plan, educating and answering questions regarding ongoing follow up, greater than 50% in counseling and coordination of care Thank you for the opportunity to be involved your care. We discussed the clinical significance of diagnosis, goals of care and treatment plan in detail. Please do not hesitate to reach out with any questions. Neli Cox MSN, MOTION PICTURE PROJECTIONIST, SENIOR QUALITY ASSURANCE SPECIALIST-C Formerly [facility] Division of Medical Oncology- Breast Collaborating Physician Dr. Marcelo Davey Team Nurse Partners Snehal Holloway, Alex[place] [address] Available via Secure Chat Confidential Peer Review Document- Pantographer Privilege Privileged Pursuant to [place] Revised Code Section 2305.24, .25, .251 & .252 documented in this encounterUn[facility] Work Phone: 1(683) 829-905507-14-2024 Emergency department Note* Sneha Gant RN - 04/30/2024 12:28 PM EDT Pt c/o right neck and shoulder pain/stiffness for the past 5 days. Pt states it hurts to turn her head. Pt states she was evaluated in ED and given pain meds. Pt is currently receiving chemo for breast CA. documented in this encounterUn[facility]y Hospital Work Phone: 1(921) 291-537407-14-2024 Emergency department Triage note* Sneha Gonsales RN - 04/30/2024 12:28 PM EDT Pt c/o right neck and shoulder pain/stiffness for the past 5 days. Pt states it hurts to turn her head. Pt states she was evaluated in ED and given pain meds. Pt is currently receiving chemo for breast CA. [facility] Work Phone: 1(315) 518-761707-03-2024 History of Present illness Narrative* WILEY Carlson - 04/19/2024 9:30 AM EDT Images from the original note were not included. Breast Medical Oncology Clinic Location: [facility] BREAST CANCER DIAGNOSIS Malignant neoplasm of lower-outer quadrant of right breast of female, estrogen receptor negative (Multi), Clinical: Stage IIB (cT2(m), cN1(f), cM0, G3, ER-, WV-, HER2+) CURRENT THERAPY Neoadjuvant gemcitabine/carboplatin days 1 and 8 q21 days initiated 03/30/24 HISTORY OF PRESENT ILLNESS Lizbeth Nixon is a 69 y.o. woman with incidentally found breast cancer after chest CT for heart surgery work up (she has aortic valve disease) found breast mass and axillary adenopathy in the right breast. Biopsy of both revealed HER2+, ER/WV- breast cancer. Other outside staging workup raised the possibility of oligo bone metastases however the data was unconvincing. Outside PET/CT vaguely showed two areas in the upper spine but MRI suggests that this could be degenerative disease. Bone scan was definitely negative for bone mets. Cardio- oncology advised against Her2 mAB therapy as she has little cardiac reserve and will need to have aortic valve repair first. Was initiated on neoadjuvant ge m/carbo 03/30/24. Lizbeth presents today for breast cancer treatment follow up. She reports the chemo is generally going well- has had some nausea which responded well to zofran. She reports some mild constipation and will get good relief with Miralax. She reports a normal appetite and denies any weight loss or taste disturbances. She reports a few days after each infusion she will have a stiff and sore neck- this will last for 3-4 days. She is using ice and rotating tylenol and ibuprofen. She is avoiding driving during these days if her stiff neck. Otherwise She denies any new or unexplained bone aches or pains She denies any chest pain. She reports her baseline shortness of breath feels is worse since starting chemo- is walking daily up to her mail box and this will make her feel winded for 10-15 min and then will resolve with rest. She denies any cough, fever or chills. She denies any vision changes, dizziness or loss of balance, no falls, no neuropathy. She reports astable headache on the days of stiff neck She denies any skin lesions or masses, oral sores lesions or infections. She has not been able to ever feel the right mass so she is unsure if it has changed. She has not been doing oral rinses but does not have an issues with oral cavity soreness. She has baseline issues with sleep prior to her breast cancer dx- has been on nightly melatonin or trazodone for her sleep. She feels her fatigue is stable. Review of systems ROS 14 points performed, See HPI for exceptions Past Medical History: has a past medical history of Anxiety, Aortic valve insufficiency, Arrhythmia, Ascending aorta dilation ([facility]), Breast cancer (Multi) (11/2023), Cerebral vascular accident (Multi) (2009), CHF (congestive heart failure) (Multi), Congestive heart failure (Multi) (12/01/2023),Coronary artery disease, Depression, Dizziness, GERD (gastroesophageal reflux disease), HOCM (hypertrophic obstructive cardiomyopathy) (Multi) (12/01/2023), Hyperlipidemia, Hypertension, Irregular heart beat, Lumbosacral neuritis (06/28/2014), Occlusion and stenosis of bilateral carotid arteries (12/01/2023), Old myocardial infarction, Other chest pain (12/01/2023), Presence of combination internal cardiac defibrillator (ICD) and pacemaker (2010), Shortness of breath, TIA (transient ischemic attack), and Vision loss. Surgical History: has a past surgical history that includes Other surgical history (07/20/2019); Other surgical history (07/24/2019); Tonsillectomy; Hysterectomy; Cardiac catheterization; Coronary stent placement; Breast biopsy; Coronary artery bypass graft (2004); Insert / replace / remove pacemaker (2010); Aortic valve replacement (2004); Cardiac valve replacement; and Abdominal aortic aneurysmrepair (2004). Social History: reports that she quit smoking about 19 years ago. Her smoking use included cigarettes. She has never been exposed to tobacco smoke. She has never used smokeless tobacco. She reports that she does not drink alcohol and does not use drugs. Family History: Family History Problem Relation Name Age of Onset Cancer Mother colon and breast Heart disease Father Cancer Sister breast Family Oncology History: Cancer-related family history includes Cancer in her mother and sister. OBJECTIVE VS / Pain: BP 128/59 (BP Location: Left arm, Patient Position: Sitting, BP Cuff Size: Adult) Pulse 60 Wt 68.3 kg (150 lb 9.2 oz) LMP (LMP Unknown) BMI 29.29 kg/m BSA: 1.7 meters squared Pain Scale: 2 Performance Status: The ECOG performance scale today is ECO- Restricted in physically strenuous activity. Carries out light duty. Physical Exam Constitutional: Well developed, awake/alert/oriented x4, no distress, alert and cooperative EYES: Sclera clear ENMT: mucous membranes moist, no apparent injury, no lesions seen Head/Neck: Neck supple, no apparent injury, thyroid without mass or tenderness, No JVD, trachea midline, no bruits Respiratory / Thoracic: Patent airways, clear to all lobes, normal breath sounds with good chest expansion, thorax symmetric. Cardiovascular: Regular, rate and rhythm, no murmurs, 2+ equal pulses of the extremities, normal auscultated S 1and S 2 GI: Nondistended, soft, non-tender, no rebound tenderness or guarding, no masses palpable, no organomegaly, +BS, no bruits Musculoskeletal: ROM intact, no joint swelling, normal strength, no spinal tenderness Extremities: normal extremities, no cyanosis edema, contusions or wounds, no clubbing Neurological: alert and oriented x4, intact senses, motor, response and reflexes, normal strength Breast: right breast mass 7:00 7cm FN unable to palpate breast mass Lymphatic: No cervical, supraclavicular, infraclavicular or axillary lymphadenopathy Psychological: Appropriate and talkative mood and behavior Skin: Warm and dry, no lesions, no rashes, no jaundice Diagnostic Results TRANSTHORACIC ECHOCARDIOGRAM REPORT Patient Name: LIZBETH Lewis Physician: [id number] Vikram Schofield MD Study Date: 02/11/2024 Ordering Provider: [id number] MARCELO DAVEY MRN/PID: [id number] Fellow: Nurse: Date of /Age: 401/26/1955 / 69 years 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 CPT Code: Echo Limited-96702; Myocardial Strain Imaging-10983; Doppler Limited-19499 Study Detail: The following Echo studies were performed: 2D, M-Mode, Doppler and color flow. PHYSICIAN INTERPRETATION: Left Ventricle: The left ventricular systolic function is mildly decreased, with an estimated ejection fraction of 45-50%. There is global hypokinesis of the left ventricle with minor regional variations. The left ventricular cavity size is normal. There is moderate concentric left ventricular hypertrophy. Left Ventricular Global Longitudinal Strain - -12.4 %. Left ventricular diastolic filling was not assessed. Left Atrium: The left atrium was not assessed. Right Ventricle: The right ventricle is normal in size. There is low normal right ventricular systolic function. A device is visualized in the right ventricle. Right Atrium: The right atrium is upper limits of normal in size. There is a device visualized in the right atrium. Aortic Valve: The aortic valve appears abnormal. There is moderate aortic valve cusp calcification.There is moderate aortic valve thickening. There is mild aortic valve regurgitation. Aortic valve appears degenerative. Gradients were not assed with current study. Consider repeat evaluation for thorough evaluation. Mitral Valve: The mitral valve is mildly thickened. There is mild mitral annular calcification. There is trace mitral valve regurgitation. Tricuspid Valve: The tricuspid valve is structurally normal. There is trace tricuspid regurgitation. Pulmonic Valve: The pulmonic valve is structurally normal. There is trace pulmonic valve regurgitation. Pericardium: There is a trivial pericardial effusion. Aorta: The aortic root is normal. There is mild dilatation of the ascending aorta. There is no dilatation of the aortic root. In comparison to the previous echocardiogram(s): There are no prior studies on this patient for comparison purposes. CONCLUSIONS: 1. Left ventricular systolic function is mildly decreased with a 45-50% estimated ejection fraction. 2. There is global hypokinesis of the left ventricle with minor regional variations. 3. Left Ventricular Global Longitudinal Strain - -12.4 %. 4. There is moderate concentric left ventricular hypertrophy. 5. There is low normal right ventricular systolic function. 6. Aortic valve appears abnormal. 7. Aortic valve appears degenerative. Gradients were not assed with current study. Consider repeat evaluation for thorough evaluation. 8. Mild aortic valve regurgitation. QUANTITATIVE DATA SUMMARY: 2D MEASUREMENTS: Normal Ranges: IVSd: 1.90 cm (0.6-1.1cm) LVPWd: 1.70 cm (0.6-1.1cm) LVIDd: 3.60 cm (3.9-5.9cm) LVIDs: 2.10 cm LV Mass Index: 163.5 g/m2 LV % FS 41.7 % AORTA MEASUREMENTS: Normal Ranges: Asc Ao, d: 3.70 cm (2.1-3.4cm) LV SYSTOLIC FUNCTION BY 2D PLANIMETRY (MOD): Normal Ranges: EF-A4C View: 49.9 % (>=55%) EF-A2C View: 42.8 % EF-Biplane: 46.4 % Global Longitudinal Strain (GLS): -12.4 % === 02/23/24 === NM BONE WHOLE BODY - Impression - No evidence of osseous metastatic disease. Degenerative changes as described above. I personally reviewed the images/study and I agree with the findings as stated. This study was interpreted at [facility], [place], [place]. MACRO: None Signed by: Luis Manuel Parrish 02/23/2024 3:29 PM Dictation workstation: [id number] LABORATORY/PATHOLOGY DATA Lab on 04/19/2024 Component Date Value Ref Range Status WBC 04/19/2024 1.0 (LL) 4.4 - 11.3 x10*3/uL Final nRBC 04/19/2024 0.0 0.0 - 0.0 /100 WBCs Final RBC 04/19/2024 3.83 (L) 4.00 - 5.20 x10*6/uL Final Hemoglobin 04/19/2024 10.7 (L) 12.0 - 16.0 g/dL Final Hematocrit 04/19/2024 33.5 (L) 36.0 - 46.0 % Final MCV 04/19/2024 88 80 - 100 fL Final MCH 04/19/2024 27.9 26.0 - 34.0 pg Final MCHC 04/19/2024 31.9 (L) 32.0 - 36.0 g/dL Final RDW 04/19/2024 12.8 11.5 - 14.5 % Final Platelets 04/19/2024 280 150 - 450 x10*3/uL Final Neutrophils % 04/19/2024 2.8 40.0 - 80.0 % Final Immature Granulocytes %, Automated 04/19/2024 1.0 (H) 0.0 - 0.9 % Final Lymphocytes % 04/19/2024 76.0 13.0 - 44.0 % Final Monocytes % 04/19/2024 18.3 2.0 - 10.0 % Final Eosinophils % 04/19/2024 1.9 0.0 - 6.0 % Final Basophils % 04/19/2024 0.0 0.0 - 2.0 % Final Neutrophils Absolute 04/19/2024 0.03 (L) 1.20 - 7.70 x10*3/uL Final Immature Granulocytes Absolute, Au* 04/19/2024 0.01 0.00 - 0.70 x10*3/uL Final Lymphocytes Absolute 04/19/2024 0.79 (L) 1.20 - 4.80 x10*3/uL Final Monocytes Absolute 04/19/2024 0.19 0.10 - 1.00 x10*3/uL Final Eosinophils Absolute 04/19/2024 0.02 0.00 - 0.70 x10*3/uL Final Basophils Absolute 04/19/2024 0.00 0.00 - 0.10 x10*3/uL Final Glucose 04/19/2024 112 (H) 74 - 99 mg/dL Final Sodium 04/19/2024 138 136 - 145 mmol/L Final Potassium 04/19/2024 4.9 3.5 - 5.3 mmol/L Final Chloride 04/19/2024 100 98 - 107 mmol/L Final Bicarbonate 04/19/2024 30 21 - 32 mmol/L Final Anion Gap 04/19/2024 13 10 - 20 mmol/L Final Urea Nitrogen 04/19/2024 16 6 - 23 mg/dL Final Creatinine 04/19/2024 1.22 (H) 0.50 - 1.05 mg/dL Final eGFR 04/19/2024 48 (L) >60 mL/min/1.73m*2 Final Calcium 04/19/2024 8.9 8.6 - 10.3 mg/dL Final Albumin 04/19/2024 4.0 3.4 - 5.0 g/dL Final Alkaline Phosphatase 04/19/2024 82 33 - 136 U/L Final Total Protein 04/19/2024 6.6 6.4 - 8.2 g/dL Final AST 04/19/2024 33 9 - 39 U/L Final Bilirubin, Total 04/19/2024 0.3 0.0 - 1.2 mg/dL Final ALT 04/19/2024 41 7 - 45 U/L Final Glucose 04/19/2024 112 (H) 74 - 99 mg/dL Final Sodium 04/19/2024 138 136 - 145 mmol/L Final Potassium 04/19/2024 4.9 3.5 - 5.3 mmol/L Final Chloride 04/19/2024 100 98 - 107 mmol/L Final Bicarbonate 04/19/2024 30 21 - 32 mmol/L Final Anion Gap 04/19/2024 13 10 - 20 mmol/L Final Urea Nitrogen 04/19/2024 16 6 - 23 mg/dL Final Creatinine 04/19/2024 1.22 (H) 0.50 - 1.05 mg/dL Final eGFR 04/19/2024 48 (L) >60 mL/min/1.73m*2 Final Calcium 04/19/2024 8.9 8.6 - 10.3 mg/dL Final RBC Morphology 04/19/2024 No significant RBC morphology present Final Infusion on 04/05/2024 Component Date Value Ref Range Status WBC 04/05/2024 2.8 (L) 4.4 - 11.3 x10*3/uL Final nRBC 04/05/2024 Final RBC 04/05/2024 4.18 4.00 - 5.20 x10*6/uL Final Hemoglobin 04/05/2024 11.9 (L) 12.0 - 16.0 g/dL Final Hematocrit 04/05/2024 36.2 36.0 - 46.0 % Final MCV 04/05/2024 87 80 - 100 fL Final MCH 04/05/2024 28.5 26.0 - 34.0 pg Final MCHC 04/05/2024 32.9 32.0 - 36.0 g/dL Final RDW 04/05/2024 12.7 11.5 - 14.5 % Final Platelets 04/05/2024 125 (L) 150 - 450 x10*3/uL Final Neutrophils % 04/05/2024 67.7 40.0 - 80.0 % Final Immature Granulocytes %, Automated 04/05/2024 0.0 0.0 - 0.9 % Final Lymphocytes % 04/05/2024 27.6 13.0 - 44.0 % Final Monocytes % 04/05/2024 1.8 2.0 - 10.0 % Final Eosinophils % 04/05/2024 2.5 0.0 - 6.0 % Final Basophils % 04/05/2024 0.4 0.0 - 2.0 % Final Neutrophils Absolute 04/05/2024 1.89 1.20 - 7.70 x10*3/uL Final Immature Granulocytes Absolute, Au* 04/05/2024 0.00 0.00 - 0.70 x10*3/uL Final Lymphocytes Absolute 04/05/2024 0.77 (L) 1.20 - 4.80 x10*3/uL Final Monocytes Absolute 04/05/2024 0.05 (L) 0.10 - 1.00 x10*3/uL Final Eosinophils Absolute 04/05/2024 0.07 0.00 - 0.70 x10*3/uL Final Basophils Absolute 04/05/2024 0.01 0.00 - 0.10 x10*3/uL Final Glucose 04/05/2024 93 74 - 99 mg/dL Final Sodium 04/05/2024 136 136 - 145 mmol/L Final Potassium 04/05/2024 4.8 3.5 - 5.3 mmol/L Final Chloride 04/05/2024 99 98 - 107 mmol/L Final Bicarbonate 04/05/2024 27 21 - 32 mmol/L Final Anion Gap 04/05/2024 15 10 - 20 mmol/L Final Urea Nitrogen 04/05/2024 24 (H) 6 - 23 mg/dL Final Creatinine 04/05/2024 1.08 (H) 0.50 - 1.05 mg/dL Final eGFR 04/05/2024 55 (L) >60 mL/min/1.73m*2 Final Calcium 04/05/2024 8.7 8.6 - 10.6 mg/dL Final Albumin 04/05/2024 4.5 3.4 - 5.0 g/dL Final Alkaline Phosphatase 04/05/2024 75 33 - 136 U/L Final Total Protein 04/05/2024 6.9 6.4 - 8.2 g/dL Final AST 04/05/2024 15 9 - 39 U/L Final Bilirubin, Total 04/05/2024 0.5 0.0 - 1.2 mg/dL Final ALT 04/05/2024 14 7 - 45 U/L Final Lab on 03/29/2024 Component Date Value Ref Range Status WBC 03/29/2024 5.1 4.4 - 11.3 x10*3/uL Final nRBC 03/29/2024 0.0 0.0 - 0.0 /100 WBCs Final RBC 03/29/2024 4.74 4.00 - 5.20 x10*6/uL Final Hemoglobin 03/29/2024 13.3 12.0 - 16.0 g/dL Final Hematocrit 03/29/2024 42.0 36.0 - 46.0 % Final MCV 03/29/2024 89 80 - 100 fL Final MCH 03/29/2024 28.1 26.0 - 34.0 pg Final MCHC 03/29/2024 31.7 (L) 32.0 - 36.0 g/dL Final RDW 03/29/2024 13.4 11.5 - 14.5 % Final Platelets 03/29/2024 251 150 - 450 x10*3/uL Final Neutrophils % 03/29/2024 60.3 40.0 - 80.0 % Final Immature Granulocytes %, Automated 03/29/2024 0.2 0.0 - 0.9 % Final Lymphocytes % 03/29/2024 29.2 13.0 - 44.0 % Final Monocytes % 03/29/2024 6.4 2.0 - 10.0 % Final Eosinophils % 03/29/2024 3.1 0.0 - 6.0 % Final Basophils % 03/29/2024 0.8 0.0 - 2.0 % Final Neutrophils Absolute 03/29/2024 3.09 1.20 - 7.70 x10*3/uL Final Immature Granulocytes Absolute, Au* 03/29/2024 0.01 0.00 - 0.70 x10*3/uL Final Lymphocytes Absolute 03/29/2024 1.50 1.20 - 4.80 x10*3/uL Final Monocytes Absolute 03/29/2024 0.33 0.10 - 1.00 x10*3/uL Final Eosinophils Absolute 03/29/2024 0.16 0.00 - 0.70 x10*3/uL Final Basophils Absolute 03/29/2024 0.04 0.00 - 0.10 x10*3/uL Final Glucose 03/29/2024 113 (H) 74 - 99 mg/dL Final Sodium 03/29/2024 142 136 - 145 mmol/L Final Potassium 03/29/2024 5.6 (H) 3.5 - 5.3 mmol/L Final Chloride 03/29/2024 104 98 - 107 mmol/L Final Bicarbonate 03/29/2024 31 21 - 32 mmol/L Final Anion Gap 03/29/2024 13 10 - 20 mmol/L Final Urea Nitrogen 03/29/2024 16 6 - 23 mg/dL Final Creatinine 03/29/2024 1.10 (H) 0.50 - 1.05 mg/dL Final eGFR 03/29/2024 54 (L) >60 mL/min/1.73m*2 Final Calcium 03/29/2024 9.2 8.6 - 10.3 mg/dL Final Albumin 03/29/2024 4.8 3.4 - 5.0 g/dL Final Alkaline Phosphatase 03/29/2024 84 33 - 136 U/L Final Total Protein 03/29/2024 7.3 6.4 - 8.2 g/dL Final AST 03/29/2024 17 9 - 39 U/L Final Bilirubin, Total 03/29/2024 0.5 0.0 - 1.2 mg/dL Final ALT 03/29/2024 13 7 - 45 U/L Final Hepatitis B Surface AG 03/29/2024 Nonreactive Nonreactive Final Hepatitis B Surface AB 03/29/2024 60.2 (H) <10.0 mIU/mL Final Glucose 03/29/2024 113 (H) 74 - 99 mg/dL Final Sodium 03/29/2024 142 136 - 145 mmol/L Final Potassium 03/29/2024 5.6 (H) 3.5 - 5.3 mmol/L Final Chloride 03/29/2024 104 98 - 107 mmol/L Final Bicarbonate 03/29/2024 31 21 - 32 mmol/L Final Anion Gap 03/29/2024 13 10 - 20 mmol/L Final Urea Nitrogen 03/29/2024 16 6 - 23 mg/dL Final Creatinine 03/29/2024 1.10 (H) 0.50 - 1.05 mg/dL Final eGFR 03/29/2024 54 (L) >60 mL/min/1.73m*2 Final Calcium 03/29/2024 9.2 8.6 - 10.3 mg/dL Final Hospital Outpatient Visit on 03/17/2024 Component Date Value Ref Range Status AV pk vaughn 03/17/2024 3.56 m/s Final AV mn grad 03/17/2024 31.7 mmHg Final LV Biplane EF 03/17/2024 61 % Final MV avg E/e' ratio 03/17/2024 12.49 Final MV E/A ratio 03/17/2024 0.62 Final LA vol index A/L 03/17/2024 35.5 ml/m2 Final Tricuspid annular plane systolic e* 03/17/2024 1.5 cm Final RV free wall pk S' 03/17/2024 4.34 cm/s Final RVSP 03/17/2024 23.1 mmHg Final AV pk grad 03/17/2024 50.7 mmHg Final LV A4C EF 03/17/2024 60.5 Final Outside pathology report reviewed. IMPRESSION/PLAN [id number] HER2+/ER-/WV- right sided breast cancer. Is not a candidate for standard HER2 therapy as per cardio-oncology. Was initiated on low dose carbo/gem 03/30/24. Not a candidate for breast surgery given severe aortic stenosis and will need cardiacsurgery before breast surgery or her2 therapy. Is tolerating chemotherapy well, no major intolerances with exception Grade 1 fatigue and Grade 1 nausea. Labs today with profound Grade 4 neutropenia. Plan to hold chemo today for 1 week. Orders placed for x1 dose of filgrastim + new plan for self injecting of filgrastim x 4 days post each infusion. Drug education completed with our team nurse Snehal Holloway RN. Planned repeat labs in 48 hrs and prior tonext chemotherapy on 04/26. Reviewed with Dr Marcelo Davey and in agreement with this plan and treatment course. Will plan to alternate 1 virtual visit with 1 regular visit. Next follow up around 05/17/24. We discussed the clinical significance of diagnosis, goals of care and treatment plan in detail. At least 35 minutes of direct consultation was spent with the patient today reviewing her cancer care plan, educating and answering questions regarding ongoing follow up, greater than 50% in counseling and coordination of care Neli Cox MSN, MOTION PICTURE PROJECTIONIST, SENIOR QUALITY ASSURANCE SPECIALIST-C [facility] Division of Medical Oncology- Breast Collaborating Physician Dr. Marcelo Davey Team Nurse Partners Snehal Holloway, Alexs[place] [address] Available via Secure Chat Confidential Peer Review Document- Pantographer Privilege Privileged Pursuant to [place] Revised Code Section 2305.24, .25, .251 & .252 documented in this encounterMercy Hospital Work Phone: [phone]) 517-764307-03-2024 Instructions* Patient Instructions* WILEY Carlson - 04/19/2024 9:30 AM EDT Cycle 2 day 1 today on hold for low white count- will plan to get back on schedule on 04/26 and or day 8 at [place]. Planned C3 on 05/17 and day 8 05/24 at [place]. Virtual please on 05/17. Planned C4 on 06/07 at [place] with in person visit prior, day 8 at [place] on 06/14 Breast surgery follow up with Dr Clifford on 05/16/24 Please call [phone] with any questions or concerns prior to your next office visit. documented in this encounterMercy Hospital Work Phone: 1(298) 857-927006-12-2024 History of Present illness Narrative* Marcelo Davey MD - 03/29/2024 10:40 AM EDT Images from the original note were not included. Breast Medical Oncology Clinic Location: [facility] BREAST CANCER DIAGNOSIS Malignant neoplasm of lower-outer quadrant of right breast of female, estrogen receptor negative (Multi), Clinical: Stage IIB (cT2(m), cN1(f), cM0, G3, ER-, WV-, HER2+) CURRENT THERAPY C1 D minus 1 gemcitabine/carboplatin days 1 and 8 q21 days HISTORY OF PRESENT ILLNESS Lizbeth Nixon is a 69 y.o. woman with incidentally found breast cancer after chest CT for heart surgery work up (she has aortic valve disease) found breast mass and axillary adenopathy in the right breast. Biopsy of both revealed HER2+, ER/WV- breast cancer. Other outside staging workup raised the possibility of oligo bone metastases however the data was unconvincing. Outside PET/CT vaguely showed two areas in the upper spine but MRI suggests that this could be degenerative disease. Bone scan was definitely negative for bone mets. Cardio- oncology advised against Her2 mAB therapy as she has little cardiac reserve and will need to have aortic valve repair first. Here to discuss alternate plans for neoadjuvant gem/carbo given patient high risk for surgery because of heart issue. Review of Systems Constitutional: Positive for fatigue. Negative for appetite change, chills and diaphoresis. HENT: Negative. Negative for hearing loss and lump/mass. Eyes: Negative. Negative for eye problems and icterus. Respiratory: Negative. Negative for chest tightness, cough, hemoptysis, shortness of breath and wheezing. Cardiovascular: Negative. Negative for chest pain, leg swelling and palpitations. Gastrointestinal: Positive for abdominal distention. Negative for abdominal pain, blood in stool, constipation, diarrhea and nausea. Endocrine: Negative for hot flashes. Genitourinary: Negative for bladder incontinence, difficulty urinating, dyspareunia, dysuria, frequency and hematuria. Musculoskeletal: Negative for arthralgias, back pain, gait problem and myalgias. Skin: Negative for rash. Neurological: Negative for dizziness, extremity weakness, gait problem, headaches, numbness and seizures. Hematological: Negative for adenopathy. Does not bruise/bleed easily. Psychiatric/Behavioral: Negative for confusion, depression and sleep disturbance. The patient is not nervous/anxious. All other systems reviewed and are negative. Past Medical History: has a past medical history of Anxiety, Aortic valve insufficiency, Arrhythmia, Ascending aorta dilation ([facility]), Breast cancer (Multi) (11/2023), Cerebral vascular accident (Multi) (2009), CHF (congestive heart failure) (Multi), Congestive heart failure (Multi) (12/01/2023),Coronary artery disease, Depression, Dizziness, GERD (gastroesophageal reflux disease), HOCM (hypertrophic obstructive cardiomyopathy) (Multi) (12/01/2023), Hyperlipidemia, Hypertension, Irregular heart beat, Lumbosacral neuritis (06/28/2014), Occlusion and stenosis of bilateral carotid arteries (12/01/2023), Old myocardial infarction, Other chest pain (12/01/2023), Presence of combination internal cardiac defibrillator (ICD) and pacemaker (2010), Shortness of breath, TIA (transient ischemic attack), and Vision loss. Surgical History: has a past surgical history that includes Other surgical history (07/20/2019); Other surgical history (07/24/2019); Tonsillectomy; Hysterectomy; Cardiac catheterization; Coronary stent placement; Breast biopsy; Coronary artery bypass graft (2004); Insert / replace / remove pacemaker (2010); Aortic valve replacement (2004); Cardiac valve replacement; and Abdominal aortic aneurysmrepair (2004). Social History: reports that she quit smoking about 19 years ago. Her smoking use included cigarettes. She has never been exposed to tobacco smoke. She has never used smokeless tobacco. She reports that she does not drink alcohol and does not use drugs. Family History: Family History Problem Relation Name Age of Onset Cancer Mother colon and breast Heart disease Father Cancer Sister breast Family Oncology History: Cancer-related family history includes Cancer in her mother and sister. OBJECTIVE VS / Pain: BP 160/75 Pulse 60 Temp 36.5 C (97.7 F) Wt 69.3 kg (152 lb 12.8 oz) LMP (LMP Unknown) SpO2 94% BMI 29.72 kg/m BSA: 1.71 meters squared Pain Scale: 2 Performance Status: The ECOG performance scale today is ECO- Restricted in physically strenuous activity. Carries out light duty. Physical Exam Constitutional: General: She is not in acute distress. Appearance: She is not ill-appearing, toxic-appearing or diaphoretic. HENT: Nose: No congestion or rhinorrhea. Mouth/Throat: Pharynx: No posterior oropharyngeal erythema. Cardiovascular: Rate and Rhythm: Normal rate and regular rhythm. Pulses: Normal pulses. Heart sounds: Murmur (systolic murmur c/w aortic stenosis) heard. Systolic murmur is present with a grade of 4/6. No gallop. Pulmonary: Breath sounds: Normal breath sounds. Chest: Abdominal: General: There is no distension. Palpations: There is no mass. Tenderness: There is no abdominal tenderness. Musculoskeletal: General: No swelling. Cervical back: No rigidity. Right lower leg: No edema. Left lower leg: No edema. Lymphadenopathy: Cervical: No cervical adenopathy. Skin: General: Skin is warm. Coloration: Skin is not cyanotic. Findings: No bruising, ecchymosis or erythema. Neurological: General: No focal deficit present. Mental Status: She is oriented to person, place, and time. Cranial Nerves: Cranial nerves 2-12 are intact. Motor: Motor function is intact. Psychiatric: Attention and Perception: Attention and perception normal. Mood and Affect: Mood and affect normal. Behavior: Behavior normal. Thought Content: Thought content normal. Judgment: Judgment normal. 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 CPT Code: Echo Limited-90135; Myocardial Strain Imaging-13981; Doppler Limited-79122 Study Detail: The following Echo studies were performed: 2D, M-Mode, Doppler and color flow. PHYSICIAN INTERPRETATION: Left Ventricle: The left ventricular systolic function is mildly decreased, with an estimated ejection fraction of 45-50%. There is global hypokinesis of the left ventricle with minor regional variations. The left ventricular cavity size is normal. There is moderate concentric left ventricular hypertrophy. Left Ventricular Global Longitudinal Strain - -12.4 %. Left ventricular diastolic filling was not assessed. Left Atrium: The left atrium was not assessed. Right Ventricle: The right ventricle is normal in size. There is low normal right ventricular systolic function. A device is visualized in the right ventricle. Right Atrium: The right atrium is upper limits of normal in size. There is a device visualized in the right atrium. Aortic Valve: The aortic valve appears abnormal. There is moderate aortic valve cusp calcification.There is moderate aortic valve thickening. There is mild aortic valve regurgitation. Aortic valve appears degenerative. Gradients were not assed with current study. Consider repeat evaluation for thorough evaluation. Mitral Valve: The mitral valve is mildly thickened. There is mild mitral annular calcification. There is trace mitral valve regurgitation. Tricuspid Valve: The tricuspid valve is structurally normal. There is trace tricuspid regurgitation. Pulmonic Valve: The pulmonic valve is structurally normal. There is trace pulmonic valve regurgitation. Pericardium: There is a trivial pericardial effusion. Aorta: The aortic root is normal. There is mild dilatation of the ascending aorta. There is no dilatation of the aortic root. In comparison to the previous echocardiogram(s): There are no prior studies on this patient for comparison purposes. CONCLUSIONS: 1. Left ventricular systolic function is mildly decreased with a 45-50% estimated ejection fraction. 2. There is global hypokinesis of the left ventricle with minor regional variations. 3. Left Ventricular Global Longitudinal Strain - -12.4 %. 4. There is moderate concentric left ventricular hypertrophy. 5. There is low normal right ventricular systolic function. 6. Aortic valve appears abnormal. 7. Aortic valve appears degenerative. Gradients were not assed with current study. Consider repeat evaluation for thorough evaluation. 8. Mild aortic valve regurgitation. QUANTITATIVE DATA SUMMARY: 2D MEASUREMENTS: Normal Ranges: IVSd: 1.90 cm (0.6-1.1cm) LVPWd: 1.70 cm (0.6-1.1cm) LVIDd: 3.60 cm (3.9-5.9cm) LVIDs: 2.10 cm LV Mass Index: 163.5 g/m2 LV % FS 41.7 % AORTA MEASUREMENTS: Normal Ranges: Asc Ao, d: 3.70 cm (2.1-3.4cm) LV SYSTOLIC FUNCTION BY 2D PLANIMETRY (MOD): Normal Ranges: EF-A4C View: 49.9 % (>=55%) EF-A2C View: 42.8 % EF-Biplane: 46.4 % Global Longitudinal Strain (GLS): -12.4 % === 02/23/24 === NM BONE WHOLE BODY - Impression - No evidence of osseous metastatic disease. Degenerative changes as described above. I personally reviewed the images/study and I agree with the findings as stated. This study was interpreted at [facility], [place], [place]. MACRO: None Signed by: Luis Manuel Parrish 02/23/2024 3:29 PM Dictation workstation: [id number] LABORATORY/PATHOLOGY DATA Lab on 03/29/2024 Component Date Value Ref Range Status WBC 03/29/2024 5.1 4.4 - 11.3 x10*3/uL Final nRBC 03/29/2024 0.0 0.0 - 0.0 /100 WBCs Final RBC 03/29/2024 4.74 4.00 - 5.20 x10*6/uL Final Hemoglobin 03/29/2024 13.3 12.0 - 16.0 g/dL Final Hematocrit 03/29/2024 42.0 36.0 - 46.0 % Final MCV 03/29/2024 89 80 - 100 fL Final MCH 03/29/2024 28.1 26.0 - 34.0 pg Final MCHC 03/29/2024 31.7 (L) 32.0 - 36.0 g/dL Final RDW 03/29/2024 13.4 11.5 - 14.5 % Final Platelets 03/29/2024 251 150 - 450 x10*3/uL Final Neutrophils % 03/29/2024 60.3 40.0 - 80.0 % Final Immature Granulocytes %, Automated 03/29/2024 0.2 0.0 - 0.9 % Final Lymphocytes % 03/29/2024 29.2 13.0 - 44.0 % Final Monocytes % 03/29/2024 6.4 2.0 - 10.0 % Final Eosinophils % 03/29/2024 3.1 0.0 - 6.0 % Final Basophils % 03/29/2024 0.8 0.0 - 2.0 % Final Neutrophils Absolute 03/29/2024 3.09 1.20 - 7.70 x10*3/uL Final Immature Granulocytes Absolute, Au* 03/29/2024 0.01 0.00 - 0.70 x10*3/uL Final Lymphocytes Absolute 03/29/2024 1.50 1.20 - 4.80 x10*3/uL Final Monocytes Absolute 03/29/2024 0.33 0.10 - 1.00 x10*3/uL Final Eosinophils Absolute 03/29/2024 0.16 0.00 - 0.70 x10*3/uL Final Basophils Absolute 03/29/2024 0.04 0.00 - 0.10 x10*3/uL Final Glucose 03/29/2024 113 (H) 74 - 99 mg/dL Final Sodium 03/29/2024 142 136 - 145 mmol/L Final Potassium 03/29/2024 5.6 (H) 3.5 - 5.3 mmol/L Final Chloride 03/29/2024 104 98 - 107 mmol/L Final Bicarbonate 03/29/2024 31 21 - 32 mmol/L Final Anion Gap 03/29/2024 13 10 - 20 mmol/L Final Urea Nitrogen 03/29/2024 16 6 - 23 mg/dL Final Creatinine 03/29/2024 1.10 (H) 0.50 - 1.05 mg/dL Final eGFR 03/29/2024 54 (L) >60 mL/min/1.73m*2 Final Calcium 03/29/2024 9.2 8.6 - 10.3 mg/dL Final Albumin 03/29/2024 4.8 3.4 - 5.0 g/dL Final Alkaline Phosphatase 03/29/2024 84 33 - 136 U/L Final Total Protein 03/29/2024 7.3 6.4 - 8.2 g/dL Final AST 03/29/2024 17 9 - 39 U/L Final Bilirubin, Total 03/29/2024 0.5 0.0 - 1.2 mg/dL Final ALT 03/29/2024 13 7 - 45 U/L Final Hepatitis B Surface AG 03/29/2024 Nonreactive Nonreactive Final Hepatitis B Surface AB 03/29/2024 60.2 (H) <10.0 mIU/mL Final Glucose 03/29/2024 113 (H) 74 - 99 mg/dL Final Sodium 03/29/2024 142 136 - 145 mmol/L Final Potassium 03/29/2024 5.6 (H) 3.5 - 5.3 mmol/L Final Chloride 03/29/2024 104 98 - 107 mmol/L Final Bicarbonate 03/29/2024 31 21 - 32 mmol/L Final Anion Gap 03/29/2024 13 10 - 20 mmol/L Final Urea Nitrogen 03/29/2024 16 6 - 23 mg/dL Final Creatinine 03/29/2024 1.10 (H) 0.50 - 1.05 mg/dL Final eGFR 03/29/2024 54 (L) >60 mL/min/1.73m*2 Final Calcium 03/29/2024 9.2 8.6 - 10.3 mg/dL Final Hospital Outpatient Visit on 03/17/2024 Component Date Value Ref Range Status AV pk vaughn 03/17/2024 3.56 m/s Final AV mn grad 03/17/2024 31.7 mmHg Final LV Biplane EF 03/17/2024 61 % Final MV avg E/e' ratio 03/17/2024 12.49 Final MV E/A ratio 03/17/2024 0.62 Final LA vol index A/L 03/17/2024 35.5 ml/m2 Final Tricuspid annular plane systolic e* 03/17/2024 1.5 cm Final RV free wall pk S' 03/17/2024 4.34 cm/s Final RVSP 03/17/2024 23.1 mmHg Final AV pk grad 03/17/2024 50.7 mmHg Final LV A4C EF 03/17/2024 60.5 Final Lab on 03/08/2024 Component Date Value Ref Range Status BNP 03/08/2024 100 (H) 0 - 99 pg/mL Final Troponin I, High Sensitivity 03/08/2024 45 (H) 0 - 34 ng/L Final Hospital Outpatient Visit on 02/22/2024 Component Date Value Ref Range Status Case Report 02/22/2024 Final Value:Surgical Pathology Case: [id number] Authorizing Provider: Malgorzata Clifford MD Collected: 02/22/2024 0947 Ordering Location: [facility] Received: 02/22/2024 1527 Center Pathologist: Magda Mariano MD Specimen: BREAST CORE BIOPSY RIGHT, RIGHT BREAST 6:00 4 CM FN FINAL DIAGNOSIS 02/22/2024 Final Value:This result contains rich text formatting which cannot be displayed here. 02/22/2024 Final Value:This result contains rich text formatting which cannot be displayed here. Addendum 02/22/2024 Final Value:This result contains rich text formatting which cannot be displayed here. Clinical History 02/22/2024 Final Value:This result contains rich text formatting which cannot be displayed here. Gross Description 02/22/2024 Final Value:This result contains rich text formatting which cannot be displayed here. Disclaimer 02/22/2024 Final Value:This result contains rich text formatting which cannot be displayed here. Lab Requisition on 02/18/2024 Component Date Value Ref Range Status Case Report 02/18/2024 Final Value:Surgical Pathology Report Case: [id number] Authorizing Provider: Peter Rai DO Collected: 02/18/2024 0834 Ordering Location: [facility] Received: 02/18/2024 0830 [place] Pathologist: Magda Mariano MD Specimens: A) - OUTSIDE BLOCK(S)/SLIDE(S), RIGHT BREAST B) - OUTSIDE SLIDES , PARTS AFTER A, RIGHT LYMPH C) - OUTSIDE SLIDES , PARTS AFTER A, RIGHT BREAST FINAL DIAGNOSIS 02/18/2024 Final Value:This result contains rich text formatting which cannot be displayed here. 02/18/2024 Final Value:This result contains rich text formatting which cannot be displayed here. Disclaimer 02/18/2024 Final Value:This result contains rich text formatting which cannot be displayed here. Gross Description 02/18/2024 Final Value:This result contains rich text formatting which cannot be displayed here. Outside pathology report reviewed. IMPRESSION/PLAN [id number] HER2+/ER-/WV- right sided breast cancer. Since she isn't a candidate for standard HER2 therapy as per cardio-oncology we will give low dose carbo/gem. She's currently not a candidate for breast surgery given severe aortic stenosis and will need cardiac surgery before breast surgery or her2 therapy. Proceed with chemotherapy tomorrow at [place]. RTC in 3 wks to see Neli cox. If does well with chemotherapy we can alternate 1 virtual visit with 1 regular visit. I could potentially see her in 6 wks as a virtual visit. She has been given scripts for zoffran and emla cream We discussed the clinical significance of diagnosis, goals of care and treatment plan in detail. I personally spent over half of a total 60 minutes face to face with the patient in counseling and discussion and/or coordination of care as described above. Marcelo Davey MD Director of Breast Cancer Medical Oncology Research Program [facility] environmental communications specialist [address] [place] [address] [email or web address] documented in this encounterUnCorey Hospital Work Phone: 1(126) 307-441206-12-2024 Instructions* Patient Instructions* Marcelo Davey MD - 03/29/2024 10:40 AM EDT Start chemo tomorrow Follow-up in 3 wks with neli documented in this encounterMercy Hospital Work Phone: 1(411) 165-748605-28-2024 Hospital Discharge instructions* Discharge Instructions* MILDRED Gamboa - 03/14/2024 11:00 AM EDT Post procedure care reviewed with patient, ok to resume normal activity with no restrictions. Patient verbalized understanding and will follow up surgery as planned. Surgery not scheduled at this time per patient . documented in this [facility] Work Phone: 1(614) 134-709105-22-2024 History of Present illness Narrative* Cindy Bae MD - 03/08/2024 1:00 PM EDT Images from the original note were not included. Subjective Lizbeth Nixon is a 69 y.o. female Cancer Diagnosis: Breast Treatment: Plan for Cumulative Dose: Radiation: Risk Factors: Aortic valve insufficiency, arrythmia, CVA, CHF, HOCM, HTN, HLD, DE, CADs/p CABG/Stent, Pacer TIA Social Hx: Former Smoker Family Hx: Father heart disease Echo 02/11/2024 EF 45-50% Briefly patient is a 69-year-old female with a medical history of dual-chamber [employer] ICD (implanted 2010), generator replacement June 2023. Coronary artery disease status post CABG, aortic valve replacement and aortic aneurysm repair. There is an echocardiogram from outside hospital dated May 27, 2023 showing preserved left ventricular ejection fraction 55-60%, with severe LVH. There is concern for bioprosthetic aortic valve stenosis with mean systolic gradient 22 mmHg, dimensionless index 0.28 and calculated effective orifice area 0.8 cm . CTA showed dilated aorta at 4.9 cm. Cardiac catheterization (unclear date) noted in her outside court bailiff chart with documented all grafts down except FULLER- LAD, in-stent restenosisof RCA and markedly enlarged aorta. From the standpoint of her cancer-she has right-sided breast cancer with possible use of HER2/harman inhibitors. Cardiac history is as follows: -Ischemic heart disease: Status post CABG in 2004. One-vessel CABG performed with aortic valve replacement (bioprosthetic)/aortic aneurysm repair. Likely underlying bicuspid aortic valve -Aortic aneurysm/aortic valve replacement as detailed above. Most recent CTA October 2023 notes dimensions of 4.9 cm. Most recent echocardiogram as scanned in above -Status post ICD as primary prevention. Was shocked post ICD placement and has been on sotalol since. EKG performed in clinic today shows atrial paced rhythm with T wave abnormalities suggestive oflateral ischemia. QTc appears prolonged Patient currently does not note any decline in her exercise capacity. Can walk on level ground without any limitations. Denies any chest discomfort or shortness of breath. Denies any orthopnea/PND. Does not appear to have any lower extremity edema Review of Systems A comprehensive review of systems was negative. Past Medical History: Diagnosis Date Anxiety Aortic valve insufficiency perivalvular aortic valve insufficiency- scheduled for surgery with Dr. Lozano. Arrhythmia [place] Ascending aorta dilation ([facility]) s/p repair abdominal aortic aneurysm Breast cancer ([facility]) 11/2023 Right Breast- Have not seen the provider yet Cerebral vascular accident ([facility]) 2009 no deficits x2 CHF (congestive heart failure) ([facility]) Congestive heart failure ([facility]) 12/01/2023 diastolic LVEF 70% BY 02/2012 STRESS NYHA CLASS II Coronary artery disease s/p cabgx 3 Depression Dizziness GERD (gastroesophageal reflux disease) controlle with protonix HOCM (hypertrophic obstructive cardiomyopathy) ([facility]) 12/01/2023 Hyperlipidemia Hypertension Irregular heart beat afib s/p AICD Lumbosacral neuritis 06/28/2014 Occlusion and stenosis of bilateral carotid arteries 12/01/2023 Old myocardial infarction Other chest pain 12/01/2023 Presence of combination internal cardiac defibrillator (ICD) and pacemaker 2010 generator replacement completed 06/2023 Shortness of breath ROBERT TIA (transient ischemic attack) Vision loss stroke in left, wears glasses Past Surgical History: Procedure Laterality Date ABDOMINAL AORTIC ANEURYSM REPAIR 2005 AORTIC VALVE REPLACEMENT 2005 BREAST BIOPSY CARDIAC CATHETERIZATION CARDIAC VALVE REPLACEMENT CORONARY ARTERY BYPASS GRAFT 2005 CORONARY STENT PLACEMENT x4 HYSTERECTOMY INSERT / REPLACE / REMOVE PACEMAKER 2010 OTHER SURGICAL HISTORY 07/20/2019 Cardioverter defibrillator insertion OTHER SURGICAL HISTORY 07/24/2019 Arterial stent placement TONSILLECTOMY Allergies Allergen Reactions Grass Pollen Other House Dust Mite Other Family History Problem Relation Name Age of Onset Cancer Mother colon and breast Heart disease Father Cancer Sister breast Objective Visit Vitals BP 136/78 Pulse 95 LMP (LMP Unknown) OB Status Postmenopausal Smoking Status Former General: awake, alert and oriented. No acute distress. Skin: Skin is warm, dry and intact without rashes or lesions. Appropriate color for ethnicity. Nailbeds pink with no cyanosis or clubbing HEENT: normocephalic, atraumatic; conjunctivae are clear without exudates or hemorrhage. Sclera is non-icteric. Eyelids are normal in appearance without swelling or lesions. Hearing intact. Nares arepatent bilaterally. Moist mucous membranes. Cardiovascular: Regular. Harsh systolic murmur; no gallops, or rubs are auscultated. S1 and S2 are heard and are of normal intensity. No JVD, no carotid bruits Respiratory: Thorax symmetric. CTAB, breath sounds vesicular. No crackles, wheezes or ronchi. Gastrointestinal: soft, non-distended, BS + x 4 Genitourinary: exam deferred Musculoskeletal: moves all extremities Extremities: pulses palpable bilaterally; no swelling or erythema; no edema Neurological: alert & oriented x 3; no focal deficits Psychiatric: appropriate mood and affect Current Outpatient Medications Medication Instructions amLODIPine (NORVASC) 5 mg, oral, Daily aspirin 81 mg, oral, Daily RT calcium carbonate 600 mg calcium (1,500 mg) tablet oral chlorhexidine (Hibiclens) 4 % external liquid Use as directed daily preoperatively chlorhexidine (Peridex) 0.12 % solution Swish and spit with 15ml of solution the night before and morning of surgery. Do not swallow. clopidogrel (PLAVIX) 75 mg, oral, Daily lisinopril 40 mg, oral, Daily melatonin 10 mg, oral, Nightly PRN nitroglycerin (NITROSTAT) 0.4 mg, sublingual, Every 5 min PRN pantoprazole (PROTONIX) 40 mg, oral, Daily before breakfast rosuvastatin (CRESTOR) 20 mg, oral, Daily sertraline (ZOLOFT) 100 mg, oral, Daily sotalol (BETAPACE) 120 mg, oral, Every 12 hours traZODone (DESYREL) 100 mg, oral, Nightly PRN Lab Review Lab Results Component Value Date HGB 14.5 02/09/2024 HGB 13.4 12/31/2023 PLT 279 02/09/2024 WBC 7.2 02/09/2024 NA 140 02/09/2024 K 4.9 02/09/2024 CREATININE 1.06 (H) 02/09/2024 CREATININE 1.12 (H) 12/31/2023 BUN 18 02/09/2024 CALCIUM 9.6 02/09/2024 INR 1.0 02/09/2024 Assessment/Plan Cardiac issues are as follows: Ischemic cardiomyopathy with low normal ejection fraction -Current medical therapy includes lisinopril 40 mg, sotalol 120 mg twice daily -On aspirin 81 mg, rosuvastatin 20 mg -Most recent cardiac catheterization notes patent FULLER-LAD. Bioprosthetic valve stenosis -No complete analysis/interrogation of aortic valve on most recent echocardiogram. Will get a complete transthoracic echocardiogram with Definity to further assess ejection fraction and valvular gradients -Given dimensions of ascending aorta, underlying CAD and at least some degree of bioprosthetic valve stenosis as is evidenced from color Doppler-there is a plan to pursue valve replacement/aneurysm repair and one-vessel CABG in the future Intent to use cardiotoxic chemotherapy -Patient has limited reserve. Her underlying obstructive CAD, at least moderate degree of bioprosthetic valve stenosis puts her at very high risk. -Will get biomarkers (high-sensitivity troponin, BNP) and a complete echocardiogram. However at present the risk from cardiotoxicity from trastuzumab appears to be prohibitively high. Will discuss with oncology further options regarding the same. Plan: -Biomarkers high sensitive troponin/BNP, complete echocardiogram -RTC 6 weeks Cindy Bae MD Advanced Heart Failure/Transplant Cardiology Cardio-Oncology [facility] Work Phone: [phone]) 716-742305-22-2024 Instructions* Patient Instructions* Katrin Rodriguez RN - 03/08/2024 1:00 PM EDT Repeat echocardiogram Labs Follow up in 6 weeks documented in [facility] Work Phone: 1(857) 394-454705-22-2024 History of Present illness Narrative* Marcelo Davey MD - 03/08/2024 11:20 AM EDT Images from the original note were not included. Breast Medical Oncology Clinic Location: [facility] BREAST CANCER DIAGNOSIS Malignant neoplasm of lower-outer quadrant of right breast of female, estrogen receptor negative (Multi), Clinical: Stage IIB (cT2(m), cN1(f), cM0, G3, ER-, WV-, HER2+) HISTORY OF PRESENT ILLNESS Lizbeth Nixon is a 69 y.o. woman with incidentally found breast cancer after chest CT for heart surgery work up (she has aortic valve disease) found breast mass and axillary adenopathy in the right breast. Biopsy of both revealed HER2+, ER/WV- breast cancer. Other outside staging workup raised the possibility of oligo bone metastases however the data isn't very convincing. Outside PET/CT showed two areas in the upper spine but MRI suggests that this could be degenerative disease. Here for follow-up. She's scheduled to see cardiology later today. Bone scan negative for bone mets. No new issues. Had port placed also. Review of Systems Constitutional: Positive for fatigue. Negative for appetite change, chills and diaphoresis. HENT: Negative. Negative for hearing loss and lump/mass. Eyes: Negative. Negative for eye problems and icterus. Respiratory: Negative. Negative for chest tightness, cough, hemoptysis, shortness of breath and wheezing. Cardiovascular: Negative. Negative for chest pain, leg swelling and palpitations. Gastrointestinal: Positive for abdominal distention. Negative for abdominal pain, blood in stool, constipation, diarrhea and nausea. Endocrine: Negative for hot flashes. Genitourinary: Negative for bladder incontinence, difficulty urinating, dyspareunia, dysuria, frequency and hematuria. Musculoskeletal: Negative for arthralgias, back pain, gait problem and myalgias. Skin: Negative for rash. Neurological: Negative for dizziness, extremity weakness, gait problem, headaches, numbness and seizures. Hematological: Negative for adenopathy. Does not bruise/bleed easily. Psychiatric/Behavioral: Negative for confusion, depression and sleep disturbance. The patient is not nervous/anxious. All other systems reviewed and are negative. Past Medical History: has a past medical history of Anxiety, Aortic valve insufficiency, Arrhythmia, Ascending aorta dilation ([facility]), Breast cancer (Multi) (11/2023), Cerebral vascular accident (Multi) (2009), CHF (congestive heart failure) (Multi), Congestive heart failure (Multi) (12/01/2023),Coronary artery disease, Depression, Dizziness, GERD (gastroesophageal reflux disease), HOCM (hypertrophic obstructive cardiomyopathy) (Multi) (12/01/2023), Hyperlipidemia, Hypertension, Irregular heart beat, Lumbosacral neuritis (06/28/2014), Occlusion and stenosis of bilateral carotid arteries (12/01/2023), Old myocardial infarction, Other chest pain (12/01/2023), Presence of combination internal cardiac defibrillator (ICD) and pacemaker (2010), Shortness of breath, TIA (transient ischemic attack), and Vision loss. Surgical History: has a past surgical history that includes Other surgical history (07/20/2019); Other surgical history (07/24/2019); Tonsillectomy; Hysterectomy; Cardiac catheterization; Coronary stent placement; Breast biopsy; Coronary artery bypass graft (2004); Insert / replace / remove pacemaker (2010); Aortic valve replacement (2004); Cardiac valve replacement; and Abdominal aortic aneurysmrepair (2004). Social History: reports that she quit smoking about 19 years ago. Her smoking use included cigarettes. She has never been exposed to tobacco smoke. She has never used smokeless tobacco. She reports that she does not drink alcohol and does not use drugs. Family History: Family History Problem Relation Name Age of Onset Cancer Mother colon and breast Heart disease Father Cancer Sister breast Family Oncology History: Cancer-related family history includes Cancer in her mother and sister. OBJECTIVE VS / Pain: BP 136/78 (BP Location: Left arm, Patient Position: Sitting, BP Cuff Size: Adult) Pulse 62 Wt 69.4 kg (153 lb) LMP (LMP Unknown) BMI 29.76 kg/m BSA: 1.72 meters squared Pain Scale: 2 Performance Status: The ECOG performance scale today is ECO- Restricted in physically strenuous activity. Carries out light duty. Physical Exam Constitutional: General: She is not in acute distress. Appearance: She is not ill-appearing, toxic-appearing or diaphoretic. HENT: Nose: No congestion or rhinorrhea. Mouth/Throat: Pharynx: No posterior oropharyngeal erythema. Cardiovascular: Rate and Rhythm: Normal rate and regular rhythm. Pulses: Normal pulses. Heart sounds: Murmur (systolic murmur c/w aortic stenosis) heard. Systolic murmur is present with a grade of 4/6. No gallop. Pulmonary: Breath sounds: Normal breath sounds. Chest: Abdominal: General: There is no distension. Palpations: There is no mass. Tenderness: There is no abdominal tenderness. Musculoskeletal: General: No swelling. Cervical back: No rigidity. Right lower leg: No edema. Left lower leg: No edema. Lymphadenopathy: Cervical: No cervical adenopathy. Skin: General: Skin is warm. Coloration: Skin is not cyanotic. Findings: No bruising, ecchymosis or erythema. Neurological: General: No focal deficit present. Mental Status: She is oriented to person, place, and time. Cranial Nerves: Cranial nerves 2-12 are intact. Motor: Motor function is intact. Psychiatric: Attention and Perception: Attention and perception normal. Mood and Affect: Mood and affect normal. Behavior: Behavior normal. Thought Content: Thought content normal. Judgment: Judgment normal. 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 CPT Code: Echo Limited-60550; Myocardial Strain Imaging-55951; Doppler Limited-59479 Study Detail: The following Echo studies were performed: 2D, M-Mode, Doppler and color flow. PHYSICIAN INTERPRETATION: Left Ventricle: The left ventricular systolic function is mildly decreased, with an estimated ejection fraction of 45-50%. There is global hypokinesis of the left ventricle with minor regional variations. The left ventricular cavity size is normal. There is moderate concentric left ventricular hypertrophy. Left Ventricular Global Longitudinal Strain - -12.4 %. Left ventricular diastolic filling was not assessed. Left Atrium: The left atrium was not assessed. Right Ventricle: The right ventricle is normal in size. There is low normal right ventricular systolic function. A device is visualized in the right ventricle. Right Atrium: The right atrium is upper limits of normal in size. There is a device visualized in the right atrium. Aortic Valve: The aortic valve appears abnormal. There is moderate aortic valve cusp calcification.There is moderate aortic valve thickening. There is mild aortic valve regurgitation. Aortic valve appears degenerative. Gradients were not assed with current study. Consider repeat evaluation for thorough evaluation. Mitral Valve: The mitral valve is mildly thickened. There is mild mitral annular calcification. There is trace mitral valve regurgitation. Tricuspid Valve: The tricuspid valve is structurally normal. There is trace tricuspid regurgitation. Pulmonic Valve: The pulmonic valve is structurally normal. There is trace pulmonic valve regurgitation. Pericardium: There is a trivial pericardial effusion. Aorta: The aortic root is normal. There is mild dilatation of the ascending aorta. There is no dilatation of the aortic root. In comparison to the previous echocardiogram(s): There are no prior studies on this patient for comparison purposes. CONCLUSIONS: 1. Left ventricular systolic function is mildly decreased with a 45-50% estimated ejection fraction. 2. There is global hypokinesis of the left ventricle with minor regional variations. 3. Left Ventricular Global Longitudinal Strain - -12.4 %. 4. There is moderate concentric left ventricular hypertrophy. 5. There is low normal right ventricular systolic function. 6. Aortic valve appears abnormal. 7. Aortic valve appears degenerative. Gradients were not assed with current study. Consider repeat evaluation for thorough evaluation. 8. Mild aortic valve regurgitation. QUANTITATIVE DATA SUMMARY: 2D MEASUREMENTS: Normal Ranges: IVSd: 1.90 cm (0.6-1.1cm) LVPWd: 1.70 cm (0.6-1.1cm) LVIDd: 3.60 cm (3.9-5.9cm) LVIDs: 2.10 cm LV Mass Index: 163.5 g/m2 LV % FS 41.7 % AORTA MEASUREMENTS: Normal Ranges: Asc Ao, d: 3.70 cm (2.1-3.4cm) LV SYSTOLIC FUNCTION BY 2D PLANIMETRY (MOD): Normal Ranges: EF-A4C View: 49.9 % (>=55%) EF-A2C View: 42.8 % EF-Biplane: 46.4 % Global Longitudinal Strain (GLS): -12.4 % === 02/23/24 === NM BONE WHOLE BODY - Impression - No evidence of osseous metastatic disease. Degenerative changes as described above. I personally reviewed the images/study and I agree with the findings as stated. This study was interpreted at [facility], [place], [place]. MACRO: None Signed by: Luis Manuel Parrish 02/23/2024 3:29 PM Dictation workstation: [id number] LABORATORY/PATHOLOGY DATA Lab on 03/08/2024 Component Date Value Ref Range Status BNP 03/08/2024 100 (H) 0 - 99 pg/mL Final Troponin I, High Sensitivity 03/08/2024 45 (H) 0 - 34 ng/L Final Hospital Outpatient Visit on 02/22/2024 Component Date Value Ref Range Status Case Report 02/22/2024 Final Value:Surgical Pathology Case: [id number] Authorizing Provider: Malgorzata Clifford MD Collected: 02/22/2024 0947 Ordering Location: [facility] Received: 02/22/2024 1527 Center Pathologist: Magda Mariano MD Specimen: BREAST CORE BIOPSY RIGHT, RIGHT BREAST 6:00 4 CM FN FINAL DIAGNOSIS 02/22/2024 Final Value:This result contains rich text formatting which cannot be displayed here. 02/22/2024 Final Value:This result contains rich text formatting which cannot be displayed here. Addendum 02/22/2024 Final Value:This result contains rich text formatting which cannot be displayed here. Clinical History 02/22/2024 Final Value:This result contains rich text formatting which cannot be displayed here. Gross Description 02/22/2024 Final Value:This result contains rich text formatting which cannot be displayed here. Disclaimer 02/22/2024 Final Value:This result contains rich text formatting which cannot be displayed here. Lab Requisition on 02/18/2024 Component Date Value Ref Range Status Case Report 02/18/2024 Final Value:Surgical Pathology Report Case: [id number] Authorizing Provider: Peter Rai DO Collected: 02/18/2024 0834 Ordering Location: [facility] Received: 02/18/2024 0830 Center Pathologist: Magda Mariano MD Specimens: A) - OUTSIDE BLOCK(S)/SLIDE(S), RIGHT BREAST B) - OUTSIDE SLIDES , PARTS AFTER A, RIGHT LYMPH C) - OUTSIDE SLIDES , PARTS AFTER A, RIGHT BREAST FINAL DIAGNOSIS 02/18/2024 Final Value:This result contains rich text formatting which cannot be displayed here. 02/18/2024 Final Value:This result contains rich text formatting which cannot be displayed here. Disclaimer 02/18/2024 Final Value:This result contains rich text formatting which cannot be displayed here. Gross Description 02/18/2024 Final Value:This result contains rich text formatting which cannot be displayed here. Hospital Outpatient Visit on 02/11/2024 Component Date Value Ref Range Status LV Biplane EF 02/11/2024 46 % Final LV GLS 02/11/2024 -12.4 % Final LVIDd 02/11/2024 3.60 cm Final LV A4C EF 02/11/2024 49.9 Final Lab on 02/09/2024 Component Date Value Ref Range Status aPTT 02/09/2024 33 27 - 38 seconds Final Protime 02/09/2024 11.0 9.8 - 12.8 seconds Final INR 02/09/2024 1.0 0.9 - 1.1 Final WBC 02/09/2024 7.2 4.4 - 11.3 x10*3/uL Final nRBC 02/09/2024 0.0 0.0 - 0.0 /100 WBCs Final RBC 02/09/2024 5.12 4.00 - 5.20 x10*6/uL Final Hemoglobin 02/09/2024 14.5 12.0 - 16.0 g/dL Final Hematocrit 02/09/2024 44.7 36.0 - 46.0 % Final MCV 02/09/2024 87 80 - 100 fL Final MCH 02/09/2024 28.3 26.0 - 34.0 pg Final MCHC 02/09/2024 32.4 32.0 - 36.0 g/dL Final RDW 02/09/2024 13.1 11.5 - 14.5 % Final Platelets 02/09/2024 279 150 - 450 x10*3/uL Final Neutrophils % 02/09/2024 68.1 40.0 - 80.0 % Final Immature Granulocytes %, Automated 02/09/2024 0.3 0.0 - 0.9 % Final Lymphocytes % 02/09/2024 22.6 13.0 - 44.0 % Final Monocytes % 02/09/2024 5.4 2.0 - 10.0 % Final Eosinophils % 02/09/2024 2.8 0.0 - 6.0 % Final Basophils % 02/09/2024 0.8 0.0 - 2.0 % Final Neutrophils Absolute 02/09/2024 4.90 1.20 - 7.70 x10*3/uL Final Immature Granulocytes Absolute, Au* 02/09/2024 0.02 0.00 - 0.70 x10*3/uL Final Lymphocytes Absolute 02/09/2024 1.63 1.20 - 4.80 x10*3/uL Final Monocytes Absolute 02/09/2024 0.39 0.10 - 1.00 x10*3/uL Final Eosinophils Absolute 02/09/2024 0.20 0.00 - 0.70 x10*3/uL Final Basophils Absolute 02/09/2024 0.06 0.00 - 0.10 x10*3/uL Final Glucose 02/09/2024 102 (H) 74 - 99 mg/dL Final Sodium 02/09/2024 140 136 - 145 mmol/L Final Potassium 02/09/2024 4.9 3.5 - 5.3 mmol/L Final Chloride 02/09/2024 98 98 - 107 mmol/L Final Bicarbonate 02/09/2024 32 21 - 32 mmol/L Final Anion Gap 02/09/2024 15 10 - 20 mmol/L Final Urea Nitrogen 02/09/2024 18 6 - 23 mg/dL Final Creatinine 02/09/2024 1.06 (H) 0.50 - 1.05 mg/dL Final eGFR 02/09/2024 57 (L) >60 mL/min/1.73m*2 Final Calcium 02/09/2024 9.6 8.6 - 10.3 mg/dL Final Albumin 02/09/2024 5.2 (H) 3.4 - 5.0 g/dL Final Alkaline Phosphatase 02/09/2024 90 33 - 136 U/L Final Total Protein 02/09/2024 8.0 6.4 - 8.2 g/dL Final AST 02/09/2024 14 9 - 39 U/L Final Bilirubin, Total 02/09/2024 0.6 0.0 - 1.2 mg/dL Final ALT 02/09/2024 11 7 - 45 U/L Final Outside pathology report reviewed. IMPRESSION/PLAN [id number] HER2+/ER-/WV- right sided breast cancer. Will await cardiology recs regarding if safe to give her-2 therapy. If not a candidate will give low dose carbo/gem as she's not a candidate for breast surgery given severe aortic stenosis and may need cardiac surgery before breast surgery or her2 therapy. We discussed the clinical significance of diagnosis, goals of care and treatment plan in detail. I personally spent over half of a total 60 minutes face to face with the patient in counseling and discussion and/or coordination of care as described above. Marcelo Davey MD Director of Breast Cancer Medical Oncology Research Program [facility] environmental communications specialist [address], [address] [place] [address] [email or web address] documented in this encounterUnCorey Hospital Work Phone: [phone]) 842-732805-22-2024 Instructions* Patient Instructions* Marcelo Davey MD - 03/08/2024 11:20 AM EDT We will schedule chemo at [place] once we get clearance from the court bailiff documented in this encounterUnCorey Hospital Work Phone: [phone]) 944-673305-16-2024 Hospital Discharge instructions* Discharge Instructions* WILEY Webster, DNP - 03/02/2024 10:48 AM EDT What is a Central Venous Access Port? Patient and Family Education What is a Central Venous Access Port? A central venous access port is a small device made up of 2 parts: ? The port, which is a hollow metal or plastic disk with a rubber center and ? The tube (also called a catheter) that connects to the port. The catheter is threaded through a vein that leads to your heart. A doctor places the port under the skin in the chest near the collarbone, or in the arm. The port feels like a small bump. Once your port site heals it should not hurt. A port provides easy access to a vein. A port is useful if you need frequent intravenous (IV) treatments, medicines, blood tests or blood products. A port can stay in for months or years if it is cared for correctly and working as it should. A port may also be called a Mediport, Power Port or Port-a-cath. Before your Port is Placed: ? If you take any medicine that thins your blood or helps prevent clots, talk with your doctor. Before your port is placed, ask your doctor if your dose of these medicines needs to be changed to help prevent bleeding problems. If your doctor tells you to stop taking these medicines, ask him or her when you should restart them. If your port placement is cancelled, call your doctor and ask if you need to restart your medicine or change your dose. These medicines include, but are not limited to: Warfarin (Coumadin), Lovenox (enoxaparin), Eliquis (apixaban), Plavix (clopidogrel), Pradaxa (dabigatran) and Xarelto (rivaroxaban). ? Do not eat or drink anything 8 hours before your port placement. If you have been told to take certain medicines, take them with a sip of water. ? Take your daily medicines, especially any cardiac (heart), high blood pressure, seizure, and antibiotic medicines. If you take insulin for diabetes, ask your doctor how to adjust your insulin dose the morning of your port placement. Be sure to tell your doctor that you have to fast for 8 hours before the port is placed. ? Talk with your doctor, nurse or dietitian before taking probiotics. Ask if it s safe for you to take them when you have a central line. Some patients should avoid taking certain probiotics because they may increase their chance of getting an infection. The Day your Port is Placed: ? A doctor in Radiology will place your port. The port placement takes about 60 to 90 minutes but plan on being here for 3 to 4 hours. This allows time for your check-in and recovery. ? A staff member will talk with you about the procedure, ask you questions and help answer your questions. For women: Tell your doctor or technologist if there is any chance you are . ? You will be asked to change into a hospital gown for the procedure. You must remove necklaces and earrings because they can get in the way during your port placement. An IV will be placed in your arm and you will be asked to lay on a cart. Once we are ready, we will take you to the procedure room. A family member may stay in our waiting room while your port is placed. In the Procedure Room: You will get medicine through your IV to help you relax. While the port is placed, some people fall asleep and some are awake but feel very relaxed. We will wash the area where the port is being placed with a germ killing solution. This solution helps lower your chances of getting an infection. Next, the doctor injects a numbing medicine into your skin, around the port site. Once your skin is numb, the doctor makes 2 small incisions (cuts) to place the port under your skin. The incisions are closed with skin glue or sutures and paper Band-Aids called steri-strips. A gauze bandage is then placed over the port site. After the Port is Placed: ? You will be taken to the recovery area. We will check your pulse and blood pressure often and check your port site for bleeding and swelling. Some bruising is normal. If you see bleeding, apply pressure with your fingertips and call your nurse right away. If you feel swelling or more pain at the site, call your nurse. ? You may have some soreness where your port is placed but it should improve each day as the site heals. The incisions used to place the port are small and should heal in 10 to 14 days. ? Once healed, you do not need to have a dressing over the site unless the port has a needle in it. If You go Home After Your Port is Placed: ? You must have someone drive you home. We cannot let you drive or travel home alone in a cab or on a bus. Do not drive for 24 hours after your port is placed. ? Someone should stay with you through the night. ? Resume your routine normal diet. You may resume your normal medicines but if you take blood-thinning medicine, ask your doctor when you should start taking it again. ? Rest until morning. ? Lifting your arm on the same side of the mediport should be restricted to 10- 15 pounds or less for 1 week. ? Avoid pushing, pulling, straining, or any strenuous activities. ? You may climb stairs. ? You may return to work when you feel you are ready at any point after surgery. If you are not able to contact your doctor, go to the nearest Emergency Room. Caring for Your Incisions: ? Remove the gauze dressing after 48 hours. You do not need to replace it. Don t try to peel off the surgical glue or steri-strips. Let them fall off on their own, which often happens after 2 weeks. ? Do not let your incisions get wet until they are fully healed, which often takes 10 to 14 days. When you shower, cover your incisions with a dressing made from plastic wrap (like Saran wrap or Glad Press n Seal) or a plastic bag and tape to keep the area dry. After you shower, remove the plastic wrap and pat the incisions dry. Don t swim or soak in a tub or Jacuzzi until your incisions are fully healed. ? Do not get your port site wet if it has a needle in it. Follow the steps above to make sure your port site is covered with plastic wrap or a plastic bag when you shower. ? Look at your incisions each day. Call your doctor right away if you have any of the signs of infection that are listed on the next page. Caring for Your Port: -A trained nurse must use a special non-coring needle, called a Petersen needle, each time they access your port. The needle is placed through your skin and into the rubber center of the port. -You will likely feel slight pricking when your nurse inserts the needle. The needle stays in place for your treatments and can be removed afterwards. -Your port needs to be flushed every 4 to 6 weeks to help prevent blood clots from forming in the catheter. If blood clots form and cause a blockage, your port may need to be removed. Your nurse will flush your port with saline. If needed, they may also flush it with a blood thinning medicine called heparin. -Port flushes are done right before the needle is taken out. Some patients are taught how to do these flushes at home. If you need to flush your port at home, your nurse will show you how. If your port is not being used at least once every 4 to 6 weeks, talk with your doctor or nurse about scheduling port flushes. Sedation: If you received medication for sedation, it will be active in your body for approximately 24 hours. So you may feel a little sleepy. Therefore, for the next 24 hours: ? DO NOT drive a car, operate machinery or power tools. It is recommended that a responsible adult be with you for the first 24 hours. ? DO NOT drink any alcoholic beverages or take any non-prescriptive medications that contain alcohol. ? DO NOT make any important decisions or sign any legal/important documents. When to Call Your Doctor: ? Redness, swelling or drainage near the port or over the port site. ? Drainage from the port site. ? Shake or chills. ? Temperature of 100.4 F (38 C) or higher. ? Pain, warm or soreness at the port site. ? Swelling of your arm, check at the port site. ? Also call if the port has been moved ? If you have any questions about your port. How to Reach your Doctor: Call [phone] with problems or questions This info is a general resource. It is not meant to replace your health care provider s advice. Ask your doctor or health care team any questions. Always follow their instructions. documented in this [facility] Work Phone: [phone] History and physical note* WILEY Webster DNP - 03/02/2024 10:00 AM EDT History Of Present Illness Lizbeth Nixon is a 69 y.o. female presenting with hx of right breast CA, here for mediport placement. PMH includes aortic valve replacement, CAD s/p CABG, ascending aorta dilation, HLD, GERD, CVA Past Medical History She has a past medical history of Anxiety, Aortic valve insufficiency, Arrhythmia, [place] [place] Breast cancer (Multi) (11/2023), Cerebral vascular accident (Multi) (2009), CHF (congestive heart failure) [facility]), Congestive heart failure (Multi) (12/01/2023), Coronary artery disease, Depression, Dizziness, GERD (gastroesophageal reflux disease), HOCM (hypertrophic obstructive cardiomyopathy) ([facility]) (12/01/2023), Hyperlipidemia, Hypertension, Irregular heart beat, Lumbosacral neuritis (06/28/2014), Occlusion and stenosis of bilateral carotid arteries (12/01/2023), Old myocardial infarction, Other chest pain (12/01/2023), Presence of combination internal cardiac defibrillator (ICD) and pacemaker (2010), Shortness of breath, TIA (transient ischemic attack), and Vision loss. Surgical History She has a past surgical history that includes Other surgical history (07/20/2019); Other surgical history (07/24/2019); Tonsillectomy; Hysterectomy; Cardiac catheterization; Coronary stent placement;Breast biopsy; Coronary artery bypass graft (2004); Insert / replace / remove pacemaker (2010); Aortic valve replacement (2004); Cardiac valve replacement; and Abdominal aortic aneurysm repair (2004). Social History She reports that she quit smoking about 19 years ago. Her smoking use included cigarettes. She has never been exposed to tobacco smoke. She has never used smokeless tobacco. She reports that she doesnot drink alcohol and does not use drugs. Family History Family History Problem Relation Name Age of Onset Cancer Mother colon and breast Heart disease Father Cancer Sister breast Allergies Grass pollen and House dust mite Home Medications Current Outpatient Medications on File Prior to Encounter Medication Sig Dispense Refill amLODIPine (Norvasc) 10 mg tablet Take 1 tablet (10 mg) by mouth once daily. aspirin 81 mg EC tablet Take 1 tablet (81 mg) by mouth once daily. calcium carbonate 600 mg calcium (1,500 mg) tablet Take by mouth. clopidogrel (Plavix) 75 mg tablet Take 1 tablet (75 mg) by mouth once daily. lisinopril 40 mg tablet Take 1 tablet (40 mg) by mouth once daily. melatonin 10 mg tablet Take 1 tablet (10 mg) by mouth as needed at bedtime. nitroglycerin (Nitrostat) 0.[address] 1 tablet (0.4 mg) under the tongue every 5 minutesif needed for chest pain. pantoprazole (ProtoNix) 40 mg EC tablet Take 1 tablet (40 mg) by mouth once daily in the morning. Take before meals. rosuvastatin (Crestor) 20 mg tablet Take 1 tablet (20 mg) by mouth once daily. sertraline (Zoloft) 100 mg tablet Take 1 tablet (100 mg) by mouth once daily. sotalol (Betapace) 120 mg tablet Take 1 tablet (120 mg) by mouth every 12 hours. traZODone (Desyrel) 100 mg tablet Take 1 tablet (100 mg) by mouth as needed at bedtime for sleep. chlorhexidine (Hibiclens) 4 % external liquid Use as directed daily preoperatively (Patient not taking: Reported on 03/02/2024) 473 mL 0 chlorhexidine (Peridex) 0.12 % solution Swish and spit with 15ml of solution the night before and morning of surgery. Do not swallow. (Patient not taking: Reported on 02/22/2024) 15 mL 0 No current facility-administered medications on file prior to encounter. Inpatient Medications: Scheduled medications Medication Dose Route Frequency PRN medications Medication Continuous Medications Medication Dose Last Rate sodium chloride 0.9% 75 mL/hr Review of Systems Constitutional: Negative. HENT: Negative. Eyes: Negative. Respiratory: Negative. Cardiovascular: Negative. Gastrointestinal: Negative. Endocrine: Negative. Genitourinary: Negative. Musculoskeletal: Negative. Skin: Negative. Allergic/Immunologic: Negative. Neurological: Negative. Hematological: Negative. Psychiatric/Behavioral: Negative. Physical Exam Constitutional: General: She is awake. She is not in acute distress. Appearance: She is not ill-appearing. Cardiovascular: Rate and Rhythm: Normal rate and regular rhythm. Pulses: Radial pulses are 2+ on the right side and 2+ on the left side. Dorsalis pedis pulses are 1+ on the right side and 1+ on the left side. Heart sounds: Murmur heard. Systolic murmur is present with a grade of 3/6. Pulmonary: Effort: Pulmonary effort is normal. Breath sounds: Normal breath sounds and air entry. Abdominal: General: Bowel sounds are normal. Palpations: Abdomen is soft. Tenderness: There is no abdominal tenderness. Musculoskeletal: Right lower leg: No edema. Left lower leg: No edema. Skin: General: Skin is warm and dry. Neurological: General: No focal deficit present. Mental Status: She is alert and oriented to person, place, and time. GCS: GCS eye subscore is 4. GCS verbal subscore is 5. GCS motor subscore is 6. Psychiatric: Mood and Affect: Mood normal. Behavior: Behavior is cooperative. Sedation Plan ASA 3 Mallampati class: II. Last Recorded Vitals Blood pressure 178/74, pulse 60, temperature 36.6 C (97.9 F), temperature source Temporal, resp. rate 14, SpO2 95%. Vitals from the Past 24 Hours Heart Rate: [60] Temp: [36.6 C (97.9 F)] Resp: [14] BP: (178)/(74) SpO2: [95 %] Relevant Results Labs CBC: Recent Labs 02/09/24 1610 12/31/23 1055 WBC 7.2 5.9 HGB 14.5 13.4 HCT 44.7 41.2 PLT 279 259 MCV 87 86 BMP/CMP: Recent Labs 02/09/24 1610 12/31/23 1055 NA 140 139 K 4.9 4.6 CL 98 100 BUN 18 17 CREATININE 1.06* 1.12* CO2 32 29 CALCIUM 9.6 9.5 PROT 8.0 -- BILITOT 0.6 -- ALKPHOS 90 -- ALT 11 -- AST 14 -- GLUCOSE 102* 98 Lipid Panel: No results for input(s): CHOL, HDL, CHHDL, LDL, VLDL, TRIG, NHDL in the last 57207 hours. Cardiac No lab exists for component: CK, CKMBP Hemoglobin A1C: No results for input(s): HGBA1C in the last 33024 hours. TSH/ Free T4: No results for input(s): TSH, FREET4 in the last 01291 hours. Iron: No results for input(s): FERRITIN, TIBC, IRONSAT, BNP in the last 73059 hours. Coag: ABO: No results found for: ABO Past Cardiology Tests (Last 3 Years): EKG: No results for input(s): ATRRATE, VENTRATE, PRINT, QRSDUR, QTCFRED, QTCCALCB in the last 53291 hours.No results found for this or any previous visit (from the past 4464 hour(s)). Echo: Echocardiogram: No results found for this or any previous visit from the past 1800 days. Ejection Fractions: No results found for: EF Cath: Coronary Angiography: No results found for this or any previous visit from the past 1800 days. Right Heart Cath: No results found for this or any previous visit from the past 1800 days. Stress Test: Nuclear:No results found for this or any previous visit from the past 1800 days. Metabolic Stress: No results found for this or any previous visit from the past 1800 days. Cardiac Imaging: Cardiac Scoring: No results found for this or any previous visit from the past 1800 days. Cardiac MRI: No results found for this or any previous visit from the past 1800 days. Assessment/Plan Assessment/Plan Active Problems: There are no active Hospital Problems. hx of right breast CA -mediport placement with Dr. Navarrete on 03/02/24 I spent 30 minutes in the professional and overall care of this patient. WILEY Webster DNP [facility] Work Phone: [phone] History and physical note* WILEY Webster DNP - 03/02/2024 10:00 AM EDT History Of Present Illness Lizbeth Nixon is a 69 y.o. female presenting with hx of right breast CA, here for mediport placement. PMH includes aortic valve replacement, CAD s/p CABG, ascending aorta dilation, HLD, GERD, CVA Past Medical History She has a past medical history of Anxiety, Aortic valve insufficiency, Arrhythmia, [facility] [place] Breast cancer (Multi) (11/2023), Cerebral vascular accident (Multi) (2009), CHF (congestive heart failure) (Multi), Congestive heart failure (Multi) (12/01/2023), Coronary artery disease, Depression, Dizziness, GERD (gastroesophageal reflux disease), HOCM (hypertrophic obstructive cardiomyopathy) (Multi) (12/01/2023), Hyperlipidemia, Hypertension, Irregular heart beat, Lumbosacral neuritis (06/28/2014), Occlusion and stenosis of bilateral carotid arteries (12/01/2023), Old myocardial infarction, Other chest pain (12/01/2023), Presence of combination internal cardiac defibrillator (ICD) and pacemaker (2010), Shortness of breath, TIA (transient ischemic attack), and Vision loss. Surgical History She has a past surgical history that includes Other surgical history (07/20/2019); Other surgical history (07/24/2019); Tonsillectomy; Hysterectomy; Cardiac catheterization; Coronary stent placement;Breast biopsy; Coronary artery bypass graft (2004); Insert / replace / remove pacemaker (2010); Aortic valve replacement (2004); Cardiac valve replacement; and Abdominal aortic aneurysm repair (2004). Social History She reports that she quit smoking about 19 years ago. Her smoking use included cigarettes. She has never been exposed to tobacco smoke. She has never used smokeless tobacco. She reports that she doesnot drink alcohol and does not use drugs. Family History Family History Problem Relation Name Age of Onset Cancer Mother colon and breast Heart disease Father Cancer Sister breast Allergies Grass pollen and House dust mite Home Medications Current Outpatient Medications on File Prior to Encounter Medication Sig Dispense Refill amLODIPine (Norvasc) 10 mg tablet Take 1 tablet (10 mg) by mouth once daily. aspirin 81 mg EC tablet Take 1 tablet (81 mg) by mouth once daily. calcium carbonate 600 mg calcium (1,500 mg) tablet Take by mouth. clopidogrel (Plavix) 75 mg tablet Take 1 tablet (75 mg) by mouth once daily. lisinopril 40 mg tablet Take 1 tablet (40 mg) by mouth once daily. melatonin 10 mg tablet Take 1 tablet (10 mg) by mouth as needed at bedtime. nitroglycerin (Nitrostat) 0.[address] 1 tablet (0.4 mg) under the tongue every 5 minutesif needed for chest pain. pantoprazole (ProtoNix) 40 mg EC tablet Take 1 tablet (40 mg) by mouth once daily in the morning. Take before meals. rosuvastatin (Crestor) 20 mg tablet Take 1 tablet (20 mg) by mouth once daily. sertraline (Zoloft) 100 mg tablet Take 1 tablet (100 mg) by mouth once daily. sotalol (Betapace) 120 mg tablet Take 1 tablet (120 mg) by mouth every 12 hours. traZODone (Desyrel) 100 mg tablet Take 1 tablet (100 mg) by mouth as needed at bedtime for sleep. chlorhexidine (Hibiclens) 4 % external liquid Use as directed daily preoperatively (Patient not taking: Reported on 03/02/2024) 473 mL 0 chlorhexidine (Peridex) 0.12 % solution Swish and spit with 15ml of solution the night before and morning of surgery. Do not swallow. (Patient not taking: Reported on 02/22/2024) 15 mL 0 No current facility-administered medications on file prior to encounter. Inpatient Medications: Scheduled medications Medication Dose Route Frequency PRN medications Medication Continuous Medications Medication Dose Last Rate sodium chloride 0.9% 75 mL/hr Review of Systems Constitutional: Negative. HENT: Negative. Eyes: Negative. Respiratory: Negative. Cardiovascular: Negative. Gastrointestinal: Negative. Endocrine: Negative. Genitourinary: Negative. Musculoskeletal: Negative. Skin: Negative. Allergic/Immunologic: Negative. Neurological: Negative. Hematological: Negative. Psychiatric/Behavioral: Negative. Physical Exam Constitutional: General: She is awake. She is not in acute distress. Appearance: She is not ill-appearing. Cardiovascular: Rate and Rhythm: Normal rate and regular rhythm. Pulses: Radial pulses are 2+ on the right side and 2+ on the left side. Dorsalis pedis pulses are 1+ on the right side and 1+ on the left side. Heart sounds: Murmur heard. Systolic murmur is present with a grade of 3/6. Pulmonary: Effort: Pulmonary effort is normal. Breath sounds: Normal breath sounds and air entry. Abdominal: General: Bowel sounds are normal. Palpations: Abdomen is soft. Tenderness: There is no abdominal tenderness. Musculoskeletal: Right lower leg: No edema. Left lower leg: No edema. Skin: General: Skin is warm and dry. Neurological: General: No focal deficit present. Mental Status: She is alert and oriented to person, place, and time. GCS: GCS eye subscore is 4. GCS verbal subscore is 5. GCS motor subscore is 6. Psychiatric: Mood and Affect: Mood normal. Behavior: Behavior is cooperative. Sedation Plan ASA 3 Mallampati class: II. Last Recorded Vitals Blood pressure 178/74, pulse 60, temperature 36.6 C (97.9 F), temperature source Temporal, resp. rate 14, SpO2 95%. Vitals from the Past 24 Hours Heart Rate: [60] Temp: [36.6 C (97.9 F)] Resp: [14] BP: (178)/(74) SpO2: [95 %] Relevant Results Labs CBC: Recent Labs 02/09/24 1610 12/31/23 1055 WBC 7.2 5.9 HGB 14.5 13.4 HCT 44.7 41.2 PLT 279 259 MCV 87 86 BMP/CMP: Recent Labs 02/09/24 1610 12/31/23 1055 NA 140 139 K 4.9 4.6 CL 98 100 BUN 18 17 CREATININE 1.06* 1.12* CO2 32 29 CALCIUM 9.6 9.5 PROT 8.0 -- BILITOT 0.6 -- ALKPHOS 90 -- ALT 11 -- AST 14 -- GLUCOSE 102* 98 Lipid Panel: No results for input(s): CHOL, HDL, CHHDL, LDL, VLDL, TRIG, NHDL in the last 41465 hours. Cardiac No lab exists for component: CK, CKMBP Hemoglobin A1C: No results for input(s): HGBA1C in the last 06413 hours. TSH/ Free T4: No results for input(s): TSH, FREET4 in the last 35974 hours. Iron: No results for input(s): FERRITIN, TIBC, IRONSAT, BNP in the last 01636 hours. Coag: ABO: No results found for: ABO Past Cardiology Tests (Last 3 Years): EKG: No results for input(s): ATRRATE, VENTRATE, PRINT, QRSDUR, QTCFRED, QTCCALCB in the last 57837 hours.No results found for this or any previous visit (from the past 4464 hour(s)). Echo: Echocardiogram: No results found for this or any previous visit from the past 1800 days. Ejection Fractions: No results found for: EF Cath: Coronary Angiography: No results found for this or any previous visit from the past 1800 days. Right Heart Cath: No results found for this or any previous visit from the past 1800 days. Stress Test: Nuclear:No results found for this or any previous visit from the past 1800 days. Metabolic Stress: No results found for this or any previous visit from the past 1800 days. Cardiac Imaging: Cardiac Scoring: No results found for this or any previous visit from the past 1800 days. Cardiac MRI: No results found for this or any previous visit from the past 1800 days. Assessment/Plan Assessment/Plan Active Problems: There are no active Hospital Problems. hx of right breast CA -mediport placement with Dr. Navarrete on 03/02/24 I spent 30 minutes in the professional and overall care of this patient. WILEY Webster DNP [facility] Work Phone: [phone] 694-872705-16-2024 Miscellaneous Notes* Post-Procedure Note - Gokul Navarrete MD - 03/02/2024 10:00 AM EDT Interventional Radiology Brief Postprocedure Note Attending: Gokul Navarrete MD Electrician Bus: none Diagnosis: need for IV chemo Description of procedure: Successful placement of a right chest port via the right EJ vein. Right side was selected despite right breast CA due to the left ICD. The port catheter tip position was confirmed with fluoroscopy and the port is ready to use. Anesthesia: Moderate sedation Complications: None Estimated Blood Loss: minimal Medications (Filter: Administrations occurring from 1515 to 1515 on 03/02/24) As of 03/02/24 1515 None No specimens collected See detailed result report with images in PACS. The patient tolerated the procedure well without incident or complication and is in stable condition. [facility] Work Phone: [phone] Note* Post-Procedure Note - Gokul Navarrete MD - 03/02/2024 10:00 AM EDT Interventional Radiology Brief Postprocedure Note Attending: Gokul Navarrete MD Electrician Bus: none Diagnosis: need for IV chemo Description of procedure: Successful placement of a right chest port via the right EJ vein. Right side was selected despite right breast CA due to the left ICD. The port catheter tip position was confirmed with fluoroscopy and the port is ready to use. Anesthesia: Moderate sedation Complications: None Estimated Blood Loss: minimal Medications (Filter: Administrations occurring from 1515 to 1515 on 03/02/24) As of 03/02/24 1515 None No specimens collected See detailed result report with images in PACS. The patient tolerated the procedure well without incident or complication and is in stable condition. [facility] Work Phone: [phone]) 474-640605-07-2024 Hospital Discharge instructions* Discharge Instructions* Sapphire Diaz RN - 02/22/2024 10:54 AM EDT 1040 AFTER THE TEST A steri-strip and bandage will be placed over the incision. You may shower after 24 hours. Remove bandage after 24 hours. Remove bandage after the shower. Leave the steri-strips in place to fall off on their own. If after 1 week the steri- strips are still on, you may remove them. Avoid swimming or soaking in tub for 3 days. You may have mild discomfort at the test site. If needed, you may take Tylenol (Acetaminophen) for pain. Please avoid taking NSAIDs, Motrin, Advil, Aleve, or ibuprofen for 24 hours following the biopsy. After 24 hours you may resume NSAIDSs. If you take aspirin, Plavix, Coumadin, Xarelto or Eliquis please tell us. If these medications werestopped by your provider, please ask them when to resume. You may have some tenderness, bruising or slight bleeding at the site. Please apply ice packs to the site for 15 minutes on and 15 minutes off for a 2 hour minimum. Most people can return to their usual routine after the procedure. Avoid Strenuous activity for 24 hours. Sleep in a bra the night after your biopsy. Continue to do so for comfort. Call your provider if you have any of the following symptoms : Fever Increased pain Increased bleeding Redness Increased swelling Yellowish drainage Your provider will get the biopsy results within 5 - 7 days. Call your provider with any questions. Patient education brochure and pain/comfort measures have been reviewed. Phone number provided to contact [facility] if problems arise. Patient verbalized understanding of home going instructions. DC home in care of sister at 1040 documented in this [facility] Work Phone: [phone]) 752-680104-24-2024 History of Present illness Narrative* Marcelo Davey MD - 02/09/2024 12:00 PM EDT Images from the original note were not included. [facility] Location: [facility] BREAST CANCER DIAGNOSIS Malignant neoplasm of lower-outer quadrant of right breast of female, estrogen receptor negative (Multi), Clinical: Stage IIB (cT2(m), cN1(f), cM0, G3, ER-, WV-, HER2+) HISTORY OF PRESENT ILLNESS Lizbeth Nixon is a 69 y.o. woman with incidentally found breast cancer after chest CT for heart surgery work up (she has aortic valve disease) found breast mass and axillary adenopathy in the right breast. Biopsy of both revealed HER2+, ER/WV- breast cancer. Other outside staging workup raised the possibility of oligo bone metastases however the data isn't very convincing. Outside PET/CT showed two areas in the upper spine but MRI suggests that this could be degenerative disease. Review of Systems Constitutional: Positive for fatigue. Negative for appetite change, chills and diaphoresis. HENT: Negative. Negative for hearing loss and lump/mass. Eyes: Negative. Negative for eye problems and icterus. Respiratory: Negative. Negative for chest tightness, cough, hemoptysis, shortness of breath and wheezing. Cardiovascular: Negative. Negative for chest pain, leg swelling and palpitations. Gastrointestinal: Positive for abdominal distention. Negative for abdominal pain, blood in stool, constipation, diarrhea and nausea. Endocrine: Negative for hot flashes. Genitourinary: Negative for bladder incontinence, difficulty urinating, dyspareunia, dysuria, frequency and hematuria. Musculoskeletal: Negative for arthralgias, back pain, gait problem and myalgias. Skin: Negative for rash. Neurological: Negative for dizziness, extremity weakness, gait problem, headaches, numbness and seizures. Hematological: Negative for adenopathy. Does not bruise/bleed easily. Psychiatric/Behavioral: Negative for confusion, depression and sleep disturbance. The patient is not nervous/anxious. All other systems reviewed and are negative. Past Medical History: has a past medical history of Anxiety, Aortic valve insufficiency, Arrhythmia, [place] [place] (11/2023), Cerebral vascular accident ([facility]) (2009), CHF (congestive heart failure) ([facility]), Congestive heart failure ([facility]) (12/01/2023),Coronary artery disease, Depression, Dizziness, GERD (gastroesophageal reflux disease), HOCM (hypertrophic obstructive cardiomyopathy) ([facility]) (12/01/2023), Hyperlipidemia, Hypertension, Irregular heart beat, Lumbosacral neuritis (06/28/2014), Occlusion and stenosis of bilateral carotid arteries (12/01/2023), Old myocardial infarction, Other chest pain (12/01/2023), Presence of combination internal cardiac defibrillator (ICD) and pacemaker (2010), Shortness of breath, TIA (transient ischemic attack), and Vision loss. Surgical History: has a past surgical history that includes Other surgical history (07/20/2019); Other surgical history (07/24/2019); Tonsillectomy; Hysterectomy; Cardiac catheterization; Coronary stent placement; Breast biopsy; Coronary artery bypass graft; Insert / replace / remove pacemaker (2010); Aortic valve replacement (2004); Cardiac valve replacement; and Abdominal aortic aneurysm repair. Social History: reports that she quit smoking about 19 years ago. Her smoking use included cigarettes. She has never been exposed to tobacco smoke. She has never used smokeless tobacco. She reports that she does not drink alcohol and does not use drugs. Family History: Family History Problem Relation Name Age of Onset Cancer Mother colon and breast Heart disease Father Cancer Sister breast Family Oncology History: Cancer-related family history includes Cancer in her mother and sister. OBJECTIVE VS / Pain: BP 150/78 Pulse 60 Temp 36.7 C (98 F) Ht (S) 1.527 m (5' 0.12) Wt 69.7 kg (153 lb 9.6 oz) LMP (LMP Unknown) SpO2 95% BMI 29.88 kg/m BSA: 1.72 meters squared Pain Scale: 2 Performance Status: The ECOG performance scale today is ECO- Restricted in physically strenuous activity. Carries out light duty. Physical Exam Constitutional: General: She is not in acute distress. Appearance: She is not ill-appearing, toxic-appearing or diaphoretic. HENT: Nose: No congestion or rhinorrhea. Mouth/Throat: Pharynx: No posterior oropharyngeal erythema. Cardiovascular: Rate and Rhythm: Normal rate and regular rhythm. Pulses: Normal pulses. Heart sounds: Murmur (systolic murmur c/w aortic stenosis) heard. Systolic murmur is present with a grade of 4/6. No gallop. Pulmonary: Breath sounds: Normal breath sounds. Chest: Abdominal: General: There is no distension. Palpations: There is no mass. Tenderness: There is no abdominal tenderness. Musculoskeletal: General: No swelling. Cervical back: No rigidity. Right lower leg: No edema. Left lower leg: No edema. Lymphadenopathy: Cervical: No cervical adenopathy. Skin: General: Skin is warm. Coloration: Skin is not cyanotic. Findings: No bruising, ecchymosis or erythema. Neurological: General: No focal deficit present. Mental Status: She is oriented to person, place, and time. Cranial Nerves: Cranial nerves 2-12 are intact. Motor: Motor function is intact. Psychiatric: Attention and Perception: Attention and perception normal. Mood and Affect: Mood and affect normal. Behavior: Behavior normal. Thought Content: Thought content normal. Judgment: Judgment normal. Diagnostic Results BI mammo bilateral diagnostic tomosynthesis 02/09/2024 BI US breast limited bilateral 02/09/2024 Narrative Interpreted By: Eugenia Bob, STUDY: BI MAMMO BILATERAL DIAGNOSTIC TOMOSYNTHESIS; BI US BREAST LIMITED BILATERAL; 02/09/2024 2:47 pm; 02/09/2024 3:29 pm ACCESSION NUMBER(S): [id number]; [id number] ORDERING CLINICIAN: MALGORZATA CLIFFORD INDICATION: Recent diagnosis of multifocal invasive ductal carcinoma at outside facility. Patient with right breast masses and abnormal right axillary lymph nodes noted on chest CT angiography performed as part of workup for open heart surgery. Patient underwent ultrasound-guided biopsy of a mass at 8 o'clock, 7 cm from the nipple and a mass at 7 o'clock, 7 cm from the nipple both showing invasive ductal carcinoma and a right axillary lymph node biopsy showing metastatic lymphadenopathy. Patient has a strong family history of breast cancer with mother and sister diagnosed with breast cancer. COMPARISON: PET-CT dated 01/11/2024, mammogram 11/25/2023. FINDINGS: MAMMOGRAPHY: 2D and tomosynthesis images were reviewed at 1 mm slice thickness. Per technologist, best possible images were obtained. Visualization of the left axilla is limited due to overlying cardiac device. Density: There are areas of scattered fibroglandular tissue. There is an small oval mass associated with a ribbon shaped biopsy marker clip in lower outer right breast at posterior depth best seen on the MLO view. The mass is not well visualized on the CC view due to posterior location. This corresponds with the smaller most lateral mass seen on outside facility PET-CT and reported biopsy-proven malignancy at 7 o'clock, 7 cm from the nipple. The dominant biopsy-proven malignant mass in the right breast seen on PET-CT and reported biopsied mass at 8 o'clock, 7 cm from the nipple is not visualized mammographically due to posterior location. An additional FDG avid mass in central lower right breast at posterior depth seen on PET-CT and the mass seen on today's ultrasound exam at 6 o'clock is not visualized mammographically. A focal asymmetry with questionable architectural distortion was initially questioned in upper-outer quadrant of the left breast at middle depth which resolved on additional mammographic views. A biopsy tissue marker is seen in upper outer left breast at posterior depth. No suspicious masses or calcifications are identified in the left breast. ULTRASOUND: Targeted ultrasound with elastography was performed by a registered wireline supervisor in the bilateral breast and right axilla. There is an irregular spiculated hypoechoic mass with anti parallel orientation and posterior shadowing containing echogenic foci of calcifications and associated with a biopsy clip in the right breast at 8 o'clock, 7 cm from the nipple measuring 2.6 x 1.7 x 2.1 cm. The mass is stiff on elastography and likely abuts the chest wall musculature, although muscular involvement can not be evaluated due to posterior location and shadowing from the mass. This finding corresponds with the dominant mass on PET-CT and biopsy-proven malignancy. Approximately 1.2 cm from the dominant mass, and located more superficially, there is an additional irregular spiculated hypoechoic mass in anti parallel orientation associated with a biopsy clip at 7 o'clock, 7 cm from the nipple measuring 0.8 x 0.7 x 0.6 cm. No internal vascularity is identified. The mass is soft on elastography. This corresponds with the mass seen on mammogram and the smallest most lateral mass seen on PET-CT and biopsy-proven malignancy. There is an additional irregular spiculated hypoechoic stiff mass in the right breast at 5-6 o'clock position, 4 cm from the nipple, measuring 1.5 x 0.9 x 1.3 cm. The mass is located in the posterior depth in likely abuts the chest wall, although possible chest wall involvement can not be accurately evaluated. This mass is located approximately 3.5 cm medial to the dominant mass and corresponds to the most medial mass seen on PET-CT. This mass is not visualized mammographically due to posterior location. On PET-CT, these 3 masses span an area of approximately 8.5 cm in transverse dimension. On scanning of the upper-outer quadrant of the left breast, no focal sonographic abnormalities are identified to correspond with the questioned focal asymmetry. On scanning of the right axilla, a 1.3 x 1.3 x 1.2 cm abnormal rounded level I axillary lymph node is identified with irregular borders and effaced fatty hilum containing a biopsy clip, corresponding to biopsy-proven metastatic lymphadenopathy. Three additional abnormal level II and II right axillary lymph nodes with irregular borders are identified in the right axilla. Impression 1. Biopsy-proven malignant right breast masses at 7 o'clock and 8 o'clock positions associated with biopsy-proven malignant right axillary lymphadenopathy. The dominant mass likely abuts the chest wall musculature although evaluation of possible muscular involvement is limited on this exam. 2. Additional right breast mass at 6 o'clock position is highly suggestive of an additional focus of disease. Ultrasound-guided biopsy is recommended to confirm extent of disease. 3. No mammographic or targeted sonographic evidence of malignancy in the left breast. Dr. Eugenia Bob discussed the findings and recommendations with the patient and her referring breast surgical oncologist, Dr. Clifford at the time of the exam. A pre-procedure form was filled out. BI-RADS CATEGORY: BI-RADS CATEGORY: 5 Highly Suggestive of Malignancy. Recommendation: Surgical Consultation and Biopsy. Recommended Date: Immediate. Laterality: Right. For any future breast imaging appointments, please call [phone] ([phone]). MACRO: None Signed by: Eugenia Bob 02/09/2024 10:18 PM Dictation workstation: [id number] No images are attached to the encounter. LABORATORY/PATHOLOGY DATA Lab on 02/09/2024 Component Date Value Ref Range Status aPTT 02/09/2024 33 27 - 38 seconds Final Protime 02/09/2024 11.0 9.8 - 12.8 seconds Final INR 02/09/2024 1.0 0.9 - 1.1 Final WBC 02/09/2024 7.2 4.4 - 11.3 x10*3/uL Final nRBC 02/09/2024 0.0 0.0 - 0.0 /100 WBCs Final RBC 02/09/2024 5.12 4.00 - 5.20 x10*6/uL Final Hemoglobin 02/09/2024 14.5 12.0 - 16.0 g/dL Final Hematocrit 02/09/2024 44.7 36.0 - 46.0 % Final MCV 02/09/2024 87 80 - 100 fL Final MCH 02/09/2024 28.3 26.0 - 34.0 pg Final MCHC 02/09/2024 32.4 32.0 - 36.0 g/dL Final RDW 02/09/2024 13.1 11.5 - 14.5 % Final Platelets 02/09/2024 279 150 - 450 x10*3/uL Final Neutrophils % 02/09/2024 68.1 40.0 - 80.0 % Final Immature Granulocytes %, Automated 02/09/2024 0.3 0.0 - 0.9 % Final Lymphocytes % 02/09/2024 22.6 13.0 - 44.0 % Final Monocytes % 02/09/2024 5.4 2.0 - 10.0 % Final Eosinophils % 02/09/2024 2.8 0.0 - 6.0 % Final Basophils % 02/09/2024 0.8 0.0 - 2.0 % Final Neutrophils Absolute 02/09/2024 4.90 1.20 - 7.70 x10*3/uL Final Immature Granulocytes Absolute, Au* 02/09/2024 0.02 0.00 - 0.70 x10*3/uL Final Lymphocytes Absolute 02/09/2024 1.63 1.20 - 4.80 x10*3/uL Final Monocytes Absolute 02/09/2024 0.39 0.10 - 1.00 x10*3/uL Final Eosinophils Absolute 02/09/2024 0.20 0.00 - 0.70 x10*3/uL Final Basophils Absolute 02/09/2024 0.06 0.00 - 0.10 x10*3/uL Final Glucose 02/09/2024 102 (H) 74 - 99 mg/dL Final Sodium 02/09/2024 140 136 - 145 mmol/L Final Potassium 02/09/2024 4.9 3.5 - 5.3 mmol/L Final Chloride 02/09/2024 98 98 - 107 mmol/L Final Bicarbonate 02/09/2024 32 21 - 32 mmol/L Final Anion Gap 02/09/2024 15 10 - 20 mmol/L Final Urea Nitrogen 02/09/2024 18 6 - 23 mg/dL Final Creatinine 02/09/2024 1.06 (H) 0.50 - 1.05 mg/dL Final eGFR 02/09/2024 57 (L) >60 mL/min/1.73m*2 Final Calcium 02/09/2024 9.6 8.6 - 10.3 mg/dL Final Albumin 02/09/2024 5.2 (H) 3.4 - 5.0 g/dL Final Alkaline Phosphatase 02/09/2024 90 33 - 136 U/L Final Total Protein 02/09/2024 8.0 6.4 - 8.2 g/dL Final AST 02/09/2024 14 9 - 39 U/L Final Bilirubin, Total 02/09/2024 0.6 0.0 - 1.2 mg/dL Final ALT 02/09/2024 11 7 - 45 U/L Final Pre-Admission Testing on 12/31/2023 Component Date Value Ref Range Status WBC 12/31/2023 5.9 4.4 - 11.3 x10*3/uL Final nRBC 12/31/2023 0.0 0.0 - 0.0 /100 WBCs Final RBC 12/31/2023 4.78 4.00 - 5.20 x10*6/uL Final Hemoglobin 12/31/2023 13.4 12.0 - 16.0 g/dL Final Hematocrit 12/31/2023 41.2 36.0 - 46.0 % Final MCV 12/31/2023 86 80 - 100 fL Final MCH 12/31/2023 28.0 26.0 - 34.0 pg Final MCHC 12/31/2023 32.5 32.0 - 36.0 g/dL Final RDW 12/31/2023 13.0 11.5 - 14.5 % Final Platelets 12/31/2023 259 150 - 450 x10*3/uL Final Glucose 12/31/2023 98 74 - 99 mg/dL Final Sodium 12/31/2023 139 136 - 145 mmol/L Final Potassium 12/31/2023 4.6 3.5 - 5.3 mmol/L Final Chloride 12/31/2023 100 98 - 107 mmol/L Final Bicarbonate 12/31/2023 29 21 - 32 mmol/L Final Anion Gap 12/31/2023 15 10 - 20 mmol/L Final Urea Nitrogen 12/31/2023 17 6 - 23 mg/dL Final Creatinine 12/31/2023 1.12 (H) 0.50 - 1.05 mg/dL Final eGFR 12/31/2023 53 (L) >60 mL/min/1.73m*2 Final Calcium 12/31/2023 9.5 8.6 - 10.6 mg/dL Final ABO TYPE 12/31/2023 B Final Rh TYPE 12/31/2023 POS Final ANTIBODY SCREEN 12/31/2023 NEG Final Protime 12/31/2023 11.1 9.8 - 12.8 seconds Final INR 12/31/2023 1.0 0.9 - 1.1 Final aPTT 12/31/2023 32 27 - 38 seconds Final Staph/MRSA Screen Culture 12/31/2023 No Staphylococcus aureus isolated Final Color, Urine 12/31/2023 Light-Yellow Light-Yellow, Yellow, Dark-Yellow Final Appearance, Urine 12/31/2023 Clear Clear Final Specific [place], Urine 12/31/2023 1.014 1.005 - 1.035 Final pH, Urine 12/31/2023 6.0 5.0, 5.5, 6.0, 6.5, 7.0, 7.5, 8.0 Final Protein, Urine 12/31/2023 NEGATIVE NEGATIVE, 10 (TRACE), 20 (TRACE) mg/dL Final Glucose, Urine 12/31/2023 Normal Normal mg/dL Final Blood, Urine 12/31/2023 NEGATIVE NEGATIVE Final Ketones, Urine 12/31/2023 NEGATIVE NEGATIVE mg/dL Final Bilirubin, Urine 12/31/2023 NEGATIVE NEGATIVE Final Urobilinogen, Urine 12/31/2023 Normal Normal mg/dL Final Nitrite, Urine 12/31/2023 NEGATIVE NEGATIVE Final Leukocyte Esterase, Urine 12/31/2023 NEGATIVE NEGATIVE Final Extra Tube 12/31/2023 Hold for add-ons. Final Outside pathology report reviewed. IMPRESSION/PLAN [id number] HER2+/ER-/WV- right sided breast cancer. We discussed my recommendation to have port placedsince best systemic therapy option would be IV regardless if stage 2 vs stage 4 HER2+ disease. I would like to order bone scan to further evaluate the two areas in upper spine which were + by PET butMRI spine was not very convincing and showed more non-specific results. She has no baseline neuropathy. My plan would be based on bone scan results either curative intent with dose reduced chemo appropriate for her age and PS (docetaxel/carboplatin) with trastuzumab/pertuzumab OR paclitaxel/trastuzumab/pertuzumab if bone scan results are definitive for metastatic disease. Will also order an echoca rdiogram. I will see her back in about 3 wks to start chemotherapy. We discussed the clinical significance of diagnosis, goals of care and treatment plan in detail. I personally spent over half of a total 60 minutes face to face with the patient in counseling and discussion and/or coordination of care as described above. Marcelo Davey MD Director of Breast Cancer Medical Oncology Research Program [facility] environmental communications specialist [facility] [address], [address] [place] [id number] [email or web address] documented in this encounterUnCorey Hospital Work Phone: 1(991) 809-856104-24-2024 Instructions* Patient Instructions* Marcelo Davey MD - 02/09/2024 12:00 PM EDT Bone scan, echocardiogram, port placement, bloodwork I will call you with results and then plan the chemotherapy later documented in this encounterUnCorey Hospital Work Phone: [phone]) 384-624204-24-2024 History of Present illness Narrative* Malgorzata Clifford MD - 02/09/2024 11:30 AM EDT Subjective Diagnosis date: 11/25/2023 right breast invasive ductal carcinoma multifocal, grade 3, ER 0%, WV 0%, HER2 3+, cT2(m)N1, stage IIB or IV Cancer Staging Malignant neoplasm of lower-outer quadrant of right breast of female, estrogen receptor negative (Multi) Staging form: Breast, AJCC 8th Edition - Clinical stage from 11/25/2023: Stage IIB - Signed by Malgorzata Clifford MD on 02/10/2024 cT2 cN1 cM0 Kory grade: G3 ER Status: Negative WV Status: Negative HER2 Status: Positive Lizbeth Nixon is a 69 y.o. female who was self-referred for evaluation of a right breast cancer. She presents to the [facility] for treatment recommendations. This was first discovered onchest CT on work up for heart surgery. She has not had a mammogram in many years. She has a historyof a left excisional biopsy in the . She proceeded to have diagnostic imaging demonstrating at8 and 7 o'clock positions there is a 2.6 and 0.8 cm irregular, nonparallel spiculated masses. Both area underwent US-guided core biopsy revealing a diagnosis of invasive ductal carcinoma. One axillary lymph node also was biopsied and positive. She denies skin changes or nipple discharge. She has a family history of breast cancer in her mom and sister. She had staging scans performed at her referring facility which had concerns for bone only disease and she was given a stage IV diagnosis. She isbeing seen today for a second opinion. BREAST IMAGING: It was difficult to obtain images and reports from the referring center, so images were obtained today after this visit. 02/09/2024 bilateral diagnostic mammogram and targeted US. There is an small oval mass associated with a ribbon shaped biopsy marker clip in lower outer right breast at posterior depth best seen on the MLO view. The mass is not well visualized on the CC view due to posterior location. This corresponds with the smaller most lateral mass seen on outside facility PET-CT and reported biopsy- proven malignancy at 7 o'clock, 7 cm from the nipple. The dominant biopsy-proven malignant mass in the right breast seen on PET-CT and reported biopsied mass at 8 o'clock, 7 cm from the nipple is not visualizedmammographically due to posterior location. An additional FDG avid mass in central lower right breast at posterior depth seen on PET-CT and the mass seen on today's ultrasound exam at 6 o'clock is not visualized mammographically. A focal asymmetry with questionable architectural distortion was initially questioned in upper-outer quadrant of the left breast at middle depth which resolved on additional mammographic views. A biopsy tissue marker is seen in upper outer left breast at posterior depth. No suspicious masses or calcifications are identified in the left breast. ULTRASOUND: Targeted ultrasound with elastography was performed by a registered wireline supervisor in the bilateral breast and right axilla. There is an irregular spiculated hypoechoic mass with anti parallel orientation and posterior shadowing containing echogenic foci of calcifications and associated witha biopsy clip in the right breast at 8 o'clock, 7 cm from the nipple measuring 2.6 cm. The mass is stiff on elastography and likely abuts the chest wall musculature, although muscular involvement cannot be evaluated due to posterior location and shadowing from the mass. This finding corresponds with the dominant mass on PET-CT and biopsy-proven malignancy. Approximately 1.2 cm from the dominant mass, and located more superficially, there is an additional irregular spiculated hypoechoic mass inanti parallel orientation associated with a biopsy clip at 7 o'clock, 7 cm from the nipple measuring 0.8 cm. No internal vascularity is identified. The mass is soft on elastography. This corresponds w ith the mass seen on mammogram and the smallest most lateral mass seen on PET-CT and biopsy-proven malignancy. There is an additional irregular spiculated hypoechoic stiff mass in the right breast at5-6 o'clock position, 4 cm from the nipple, measuring 1.5 cm. The mass is located in the posterior depth in likely abuts the chest wall, although possible chest wall involvement can not be accuratelyevaluated. This mass is located approximately 3.5 cm medial to the dominant mass and corresponds tothe most medial mass seen on PET-CT. This mass is not visualized mammographically due to posterior location. On PET-CT, these 3 masses span an area of approximately 8.5 cm in transverse dimension. Onscanning of the upper-outer quadrant of the left breast, no focal sonographic abnormalities are identified to correspond with the questioned focal asymmetry. On scanning of the right axilla, a 1.3 cmabnormal rounded level I axillary lymph node is identified with irregular borders and effaced fatty hilum containing a biopsy clip, corresponding to biopsy-proven metastatic lymphadenopathy. Three additional abnormal level II and II right axillary lymph nodes with irregular borders are identified in the right axilla. BREAST PROCEDURE: 11/25/23 right breast, 8:00 and 7:00 8cm from nipple, ultrasound-guided core biopsyand axillary lymph node US-biopsy REPRODUCTIVE HEALTH: menarche at 11, post-menopausal LMP at age 34 s/p hyst, , with no hormoneexposure such as control pills or post menopausal estrogen MEDICAL HISTORY: 4.9cm ascending aortic aneurysm, CHF, h/o CAD s/p CABG and sents, atrial fibrillation, pacemaker/defibrillator on left side, h/o CVA without residual deficits, hypertension FAMILY CANCER HISTORY: breast cancer in mom at age 35 and sister at age 50 MEDICAL ONCOLOGY: Dr. Davey RADIATION ONCOLOGY: referral post op if indicated GENETICS: meets NCCN criteria Cancer-related family history includes Cancer in her mother and sister. Review of Systems Constitutional: Negative. HENT: Negative. Eyes: Negative. Respiratory: Negative. Cardiovascular: Negative. Gastrointestinal: Negative. Endocrine: Negative. Genitourinary: Negative. Musculoskeletal: Negative. Skin: Negative. Neurological: Negative. Hematological: Negative. Psychiatric/Behavioral: Negative. Objective Visit Vitals BP 150/78 Pulse 60 Temp 36.7 C (98 F) Ht 1.527 m (5' 0.12) Wt 69.7 kg (153 lb 9.6 oz) LMP (LMP Unknown) SpO2 95% BMI 29.88 kg/m OB Status Postmenopausal Smoking Status Former BSA 1.72 m Breast: Exam performed in sitting and supine positions. cup size: D RIGHT BREAST EXAM: Breast: flattening in the far posterior LOQ with underlying 2cm palpable mass Skin Erythema: no Attachment of Overlying Skin: no Peau d' orange: no Chest Wall Attachment: no Nipple Inversion: no Nipple Discharge: no LEFT BREAST EXAM: Breast: no discrete mass, well healed UIQ excisional biopsy scar, AICD in the upper outer breast Skin Erythema: no Peau d' orange: no Nipple Inversion: no Nipple Discharge: no RIGHT NESHA BASIN EXAM: Axillary: positive, biopsied lymph node is palpable Infraclavicular: negative Supraclavicular: negative LEFT NESHA BASIN EXAM: Axillary: negative Infraclavicular: negative Supraclavicular: negative General: Appears older than stated age. Patient is in no acute distress. HEENT: Conjunctivae are well colored and sclerae nonicteric. Neck is supple, trachea midline. No lymphadenopathy or thyromegaly. Chest: Respiratory rate and effort normal. No cough. CV: regular rate and rhythm. Abdomen: Abdomen is obese, non-tender to palpation. Extremities: Extremities are atraumatic. There is no edema. Full ROM. Neurologic: Neurologically intact. Alert and oriented. Imaging Images from bilateral diagnostic mammogram and ultrasound were reviewed with breast imaging after today's visit and results including need for additional biopsy were discussed with Ms. Nixon. Assessment and Plan The natural history and evolution of breast cancer were discussed with Ms. Nixon and her sisters,including the difference between in-situ and invasive carcinoma, and the distinction between local and systemic disease and local and systemic therapy. For local treatment options, I explained the risks and benefits of breast conservation and mastectomy, including the fact that survival rates are equal with these two approaches. If breast conservation is elected, I explained the need for free margins, the possibility of re-excision to achieve free margins, and the need for post-operative radiotherapy. The approach to nesha staging was also described, including the technique, risks and benefits of sentinel node dissection, the possible need for axillary dissection, and the long-term sequelaeof this procedure including lymphedema risks. With regard to systemic therapy, final recommendationare usually made following receipt of final surgical pathology. After an explanation of the standard sequence of local and systemic therapy, I suggested that Ms. Nixon consider the option of neoadjuvant chemotherapy. The rationale for this, and the risks and benefits were explained in full. Given the size of her tumor, the possibility of reducing tumor size with pre-operative treatment will give her a cosmetic advantage. She was also informed about the importance of the prognostic information that can be obtain ed from neoadjuvant therapy, and the opportunity to downstage her axilla. She is seeing Dr. Davey after this visit to discuss this option. He has also ordered NM bone scan to work up the findings of oligometastatic disease on PET v. Degenerative changes. Ms. Nixon meets NCCN criteria for genetic testing. I discussed the purpose of obtaining this information would be to help us determine the risk of future breast cancers, but it does not tell us anything about the behavior of the cancer she has today. She understands approximately 5-10% of all breast cancers have a genetic component, so the most likely outcome from testing would be negative for a pathogenic variant. This should be informative for her family but does not need to impact our surgical treatment. The indications, risks, and benefits of MRI evaluation were discussed, including the greater sensitivity of MRI at the cost of a high false positive rate, leading to additional imaging procedures andpossible unnecessary biopsy. Unfortunately Ms. Nixon cannot have MRI because of her implanted device. Therefore, we made plans to repeat her diagnostic imaging today to thoroughly assess her right breast for additional disease beyond the two known sites at 7:00 and 8:00. From a surgery standpoint, Ms. Nixon is not a good surgery candidate with her competing co-morbidities. We should try to limit her time under anesthesia and perhaps breast conservation would be a better an excellent candidate for lumpectomy, and this would be her preferred approach. Because we found the third mass at 5-6:00, I am recommending US guided biopsy of that third site so it can be marked in case she has an excellent treatment response to NAC. Referral will be placed to radiation oncology post op. Following this discussion, where all of the patient's questions were answered, we agreed to proceedwith neoadjuvant chemotherapy with Dr. Davey and NM bone scan to confirm stage. If not stage IV, anticipate breast surgery after completion of neoadjuvant chemotherapy. Malgorzata Clifford MD [facility] Work Phone: 1(929) 934-877803-08-2024 Note* Exam Date Time Procedure Performing Provider Status 12/24/23 1:40 PM VL Vein Mapping US/D oppler Both Legs-CV Auth (Verified) [facility] 03-08-2024 Note* Exam Date Time Procedure Performing Provider Status 12/24/23 1:33 PM VL Radial Mapping Study Au th (Verified) [facility] 03-08-2024 Note* Exam Date Time Procedure Performing Provider Status 12/24/23 12:28 PM VL Arterial Dopplers Both Arms/PVR - CV Auth (Verified) [facility] 02-15-2024 History of Present illness Narrative* Patricia Emerson RN - 12/02/2023 2:00 PM EST Referral from Dr. Desai. Lizbeth comes to discuss treatment recommendations for perivalvular aorticvalve insufficiency, cad status post cabg, dilated ascending aorta s/p repair abdominal aortic aneurysm. Past history of a fib, status post AICD, hld, htn, carotid aso past Cva. Experiencing dyspnea.Patricia Emerson RN documented in [facility]Mer[facility] Work Phone: 1(724) 834-620301-18-2024 Note ORIGINAL EXAMINATION: CTA OF THE CHEST11/04/2023 [...] Sign Date: 11/04/2023 5:21:23 PM Ordering Provider: [facility]01-01-2024 Evaluation + Plan note Future Appointments Appointment Date:10/29/2023 08:00:00 AM Scheduled Provider: Location:Echo Appointment Type:CV JIM w/o Anesthesia Appointment Date:10/29/2023 09:00:00 AM Scheduled [...] Provider:JUD MALONEY Location:[facility] Appointment Type:CV OV [facility] 09-18-2023 Discharge summary Date of Service 07/05/2023 Discharge [...] Nerves II-XII grossly intact, no tics, normal sensationto pressure and light touch Code Status No [...] in the [facility]. Where: [address] [facility] [address] [place] [address]- [phone] Follow Up with JUAN F MARCOS MD When 07/23/2023 10:30 AM EDT Why: This is your incision check in the [facility]. Where: [address] [facility] [address] [place] [address]- [phone] Follow Up Appointments No qualifying data available. Follow Up Labs/Studies Discharge Labs No Follow-up Labs Discharge Studies No Follow-up Studies Discharge Diet No qualifying data available. Discharge Activity No qualifying data available. Condition on Discharge Good Discharge Disposition Home Digitally Signed by JUAN F MARCOS MD on 07/05/2023 04:32 PM [id number] Discharge instructions Patient Education 07/05/2023 14:10:09 Moderate Conscious Sedation, Adult, Care After Moderate Conscious Sedation, Adult, Care After These instructions provide you with information about caring for yourself after your procedure. Your health care provider may also give you more specific instructions. Your treatment has been plannedaccording to current medical practices, but problems sometimes [...] until you are awake and alert. Take jwhv-tzm-syhpbjc and prescription medicines only as told by [...] 07/25/2014 Document Revised: 09/16/2018 Document Reviewed: 01/23/2017 [employer] Patient Education 2020 [employer]. 07/05/2023 14:10:05 3- Pacemaker/ICD generator replacement (07/2018) [...] Document Reviewed: 10/05/2014 ExitCare Patient Information 2015 AddressReport. This information is not intended to replace advicegiven to you by your health care provider. Make sure you discuss any questions you have with your health care provider. Follow Up Care 06/14/2023 14:53:25 With:JUAN F MARCOS MD Address: [address] [place] [address] [address] [facility] [place] [address]- [phone] When:07/23/2023 10:30:00 Comments:This is your incision check in the Device Clinic. With:JUAN F MARCOS MD Address: [address] [facility] [address] [place] [address]- [phone] When:09/22/2023 11:30:00 Comments:This is your hospital follow up in the Device Clinic. [facility] 09-18-2023 Note ORIGINAL EXAMINATION: ONE XRAY VIEW OF [...] Sign Date: 07/05/2023 3:05:45 PM Ordering Provider: [facility]09-18-2023 Summary of episode note Discharge Instructions Thank you for allowing [facility] to assist you with your healthcare needs. The following is importantdischarge information regarding your hospital visit. Your Care Team DANIELA FALLON MD What to do next Scheduled Follow-Up Appointments Appointment Type When With Where Contact InformationCV Incision Check 07/23/2023 10:30 AM EDT [facility] CV OV 09/06/2023 08:45 AM JUD LONG [facility] CV OV 09/06/2023 09:00 AM JOCELINE DICKINSON PA-C [facility] CV Office Procedure ICD 09/22/2023 11:30 AM EST [facility] Follow Up Appointments Follow Up with JUAN F MARCOS MD When 09/22/2023 11:30 AM EST Why: This is your hospital follow up in the Device Clinic. Where: [address] [facility] [address] [place] [address]- [phone] Follow Up with JUAN F MARCOS MD When 07/23/2023 10:30 AM EDT Why: This is your incision check in the Device Clinic. Where: [address] [facility] [address] [place] [address]- [phone] Allergies NKA Medications Please ask your primary doctor or pharmacist before taking any other medication not listed, including over the counter drugs, herbal medications, vitamins and or supplements as they may interact withyour home medications. What How Much When Instructions Last Dose New amoxicillin-clavulanate (Augmentin 500 mg-125 mg oraltablet) 1 tab(s) by mouth Every 12 hours Duration: 10 Days Pickup at [facility] Unchanged amLODIPine (Norvasc 5 mg oral [...] by mouth Daily at bedtime Pharmacy Information [facility]: [address] [place] [id number] [phone] Please take this list to your next [...] pill whole, or break the pill in halfand take both halves one at a time. Tell your doctor if you have trouble swallowing a whole or halfpill. You must chew the chewable tablet before [...] body. Symptoms may include skin rash, fever, swollenglands, muscle aches, severe weakness, unusual bruising, or [...] may report side effects to FDA at [phone]-KKC-[phone]. What other drugs will affect amoxicillin and clavulanate potassium? Tell your doctor about all your other medicines, especially: allopurinol; probenecid; or a blood thinner--warfarin, Coumadin, Jantoven. This list is not complete. Other drugs may affect amoxicillin and clavulanate potassium, including prescription and hlal-muh-arwdigm medicines, vitamins, and herbal products. Not all [...] to ensure that the information provided by [employer]. ('[employer]') is accurate, up-to-date, and complete, but no guarantee is made to that effect. Drug information contained herein may be time sensitive. [employer] information has been compiled for use by healthcare practitioners and consumers in the [place] and therefore [employer] does not warrant that uses outside of the [place] are appropriate, unless specifically indicated otherwise. [employer] drug information does not endorse drugs, diagnose patients or recommend therapy. [employer] drug information isan informational resource designed to assist licensed healthcare practitioners in caring for their p atients and/or to serve consumers viewing this service as a supplement to, and not a substitute for, the expertise, skill, knowledge and judgment of healthcare practitioners. The absence of a warningfor a given drug or drug combination in no way should be construed to indicate that the drug or drug combination is safe, effective or appropriate for any given patient. [employer] does not assume any responsibility for any aspect of healthcare administered with the aid of information [employer] provides. The information contained herein is not intended to cover all possible uses, directions, precautions, warnings, drug interactions, allergic reactions, or adverse effects. If you have questions about the drugs you are taking, check with your doctor, nurse or pharmacist. Copyright 3146-2722 [employer]. Version: 14.. Revision Date: 07/24/2022. Education Materials Moderate Conscious Sedation, Adult, Care After These instructions provide you with information about caring for yourself after your procedure. Your health care provider may also give you more specific instructions. Your treatment has been plannedaccording to current medical practices, but problems sometimes [...] until you are awake and alert. Take sysk-ftb-wspaoip and prescription medicines only as told by [...] 07/25/2014 Document Revised: 09/16/2018 Document Reviewed: 01/23/2017 [employer] Patient Education 2020 [employer]. PACEMAKER/ICD GENERATOR REPLACEMENT Discharge Instructions WOUND CARE [...] Stretch the dressing to break the adhesive sealand gently pull it off. ? If the [...] Document Reviewed: 10/05/2014 ExitCare Patient Information 2015 [employer] [facility]. This information is not intended to replace advicegiven to you by your health care provider. Make sure you discuss any questions you have with your health care provider. Additional Information VACCINATE! IT SAVES LIVES! Members of the community who have not yet received the COVID-19 vaccine and would like to receive it can visit one of [facility] vaccine clinics. There are many vaccine clinic locations within the [facility]. For locations and available times, please visit [email or web address].[place].gov/. It is important to note that some COVID mobile vaccine clinics are held outdoors and may be canceled in rainy or stormy conditions. To learn more about pediatric vaccinations (ages 5-11), we invite you to visit the [facility] webpage. [email or web address].[email or web address]/pages/[email or web address]-Ikeqz-Trclmslqiho-Ymvvzunpiy-Rskvo-Uxd stions.htmlTo learn more about the COVID-19 vaccine, we invite you to visit the CDC website for a list of frequently asked questions.https://www.cdc.gov/coronavirus/2019-ncov/vaccines/faq.html [employer] Patient Portal Access Instructions: Stay connected with your healthcare team and access your personal medical information anytime with the [employer] Patient Portal. Please follow the directions below to create your [employer] account: 1.Access the email account you provided upon registration to the hospital/physician office.2.Look for an invitation email from [facility].3.Open the email and access the invitation link: AcceptInvitation to [employer].4.Fill in the required monson to create your account. To access your account, visit [employer]. Click the blue button labeled Access Patient Portal and then log in with the username and password that you created in the steps above. You will be able to view your test results, lab results, a summary of your visits, upcoming appointments and more. There is also a convenient messaging option where you can send secure messages to your p radhavider. In addition, you will have the ability to download any documents or summaries to your computer and/or send the information securely to a physician. Remember that your healthcare information is confidential, so carefully consider who you will allowto register on the [facility] Patient Portal for access to your information. You can also access the [place] One[facility] Patient Portal on the [place] Anywhere kathy. Simply click on Patient Portal and then log into your account. If you would like to receive a full copy of your medical records, please contact the [facility] Medical Records Department by calling [phone], Wednesday through Wednesday between 8 a.m. and 4:30 p.m. HOW TO SAFELY DISPOSE OF PRESCRIPTION MEDICATIONS Please use one of the following methods to safely dispose of your unused medications. 1.Use a drug disposal kit: the drug disposal pouch allows you to safely discard your old and unuseddrugs. Ask your nurse to give you one when you are discharged.2.Visit a local take-back location: Many local pharmacies and police departments have programs that collect old and unwanted prescriptiondrugs. Call your local pharmacy or go to http://[email or web address]/1G7Qs9u to find one close to you.3.Make use of household items: Use cat litter or old coffee grounds to dispose medications if other options arenot available. Mix your drugs with these household products, seal them in an airtight container andthrow it into the garbage. Call [facility]: [phone] to be sure your drugs can be [...] aware that I should contact my doctor. 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/Metal Slitter Signature: Date/Time: Relationship to Patient: Witness Name/Signature: Date/Time: [id number] Note* Exam Date Time Procedure Performing Provider Status 07/05/23 12:00 PM ICD Generator Change Aut h (Verified) [facility] 09-18-2023 Anesthesiology Consult note Patient: LIZBETH NIXON [...] list: 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.) / SNOMED CT 183322332 / Confirmed AFIB / SNOMED CT 10553174 / Confirmed AICD (AUTOMATIC CARDIOVERTER/DEFIBRILLATOR) PRESENT / SNOMED CT 1401273746 / Confirmed BILATERAL CAROTID ARTERY STENOSIS / SNOMED CT 195952738847410 / Confirmed ARRHYTHMIA / SNOMED CT 3008311741 / Confirmed OTHER CHEST PAIN / SNOMED CT 73466562 / Confirmed CONGESTIVE HEART FAILURE / SNOMED CT 51007273 / Confirmed 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 / SNOMED CT 5665337597 / Confirmed HYPERTENSION, UNSPECIFIED / SNOMED CT 05169175 / Confirmed GERD (GASTROESOPHAGEAL REFLUX DISEASE) / SNOMED CT 127691300 / Confirmed S/P aortic valve replacement / SNOMED CT 9881689644 / Confirmed MIXED HYPERLIPIDEMIA / SNOMED CT 801576945 / Confirmed VT / SNOMED CT 746583762 / Confirmed TIA / SNOMED CT 935659923 / Confirmed Canceled: AORTIC STENOSIS / SNOMED CT 185911175, Active Problems (17) AFIB AICD (AUTOMATIC CARDIOVERTER/DEFIBRILLATOR) PRESENT ARRHYTHMIA BILATERAL CAROTID ARTERY STENOSIS 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 Echocardiogram ([id number]) on 10/01/2022 at 67 Years. Comments: 10/24/2022 [...] noted. Consider appropriate differential diagnosis. Cardiac catheterisation ([id number]) in 2011 at 57 Years. Comments: 06/07/2020 8:57 Lisa Ward MA (ABR-OE) 03-30-11; 09-23-10 ptca/stent to follow; 03-10-10 Implantable defibrillator ([id number]) in 2010 at 56 Years. Comments: 06/07/2020 [...] SYSTEM IMPLANTED: The pulse generator is a [employer] Teligen, model E110, serial #[id number]. The RA lead is a Guidant, model 4470, serial #[id number]. The RV lead is a Guidant, model 0184, serial #[id number]. PROCEDURES PERFORMED: Dual chamber ICD implantation. PTCA - Percutaneous transluminal coronary angioplasty ([id number]) on 09/23/2010 at 55 Years. Comments: 06/07/2020 8:54 Lisa Ward MA (ABR-OE) PERCUTANEOUS TRANSLUMINAL CORONARY ANGIOPLASTY AND STENT OF THE DISTAL RIGHT CORONARY ARTERY Balloons/Stents: 2.0 and 3.0 Jessamine balloon catheter; two 2.75 Promus stents one [...] OF THE RIGHT CORONARY ARTERY Catheters: 6 Thai JR4, 3 DRC, and AR1 guide catheters [...] delivery of balloons and stents. Balloons: 2.5 Jessamine balloon catheter; 2.75 NC Quantum balloon catheter and 2.5 X 15 mm length Promus stent CABG (Coronary artery bypass grafting) planned ([id number]) in 2004 at 50 Years. Comments: 06/07/2020 8:55 Lisa Ward MA (ABR-OE) In 2004 she had coronary artery bypass grafting, including FULELR to the LAD, SVG to the diagonal andSVG to the obtuse marginal. Also an aortic valve replacement using a Bovine bioprosthesis was done.A descending thoracic aortic aneurysm repair was also performed. All three of these procedures weredone during the same hospitalization at [facility] in 2004. The patient had intraoperative ventricular fibrillation, postoperative congestive heart failure with LVEF of 15%, requiring intra-aortic balloon pump. Thoracic aortic aneurysm without rupture ([id number]) in 2004 at 50 Years. Comments: 06/07/2020 8:57 Lisa Ward MA (ABR-OE) A descending thoracic aortic aneurysm repair was also performed. Tonsillectomy ([id number]). Hysterectomy ([id number]). AVR - Aortic valve replacement ([id number]). Comments: 06/07/2020 8:55 EDT - Lisa Tai [...] 05 08:44) Resp Rate 18 br/min (JUL 05 08:44) SBPH 178mmHg (JUL 05 08:44) DBP84 mmHg [...] INR 1.0(JUL 05) . Assessment and Plan [place] Society of Anesthesiologists (ASA) physical status classification: [...] anesthetic plan and agrees to proceed.. Beta Eun: Beta Eun Taken Within 24 Hrs. Digitally Signed by VANESSA BETTENCOURT MD on 07/05/2023 09:55 AM [id number] Note* Exam Date Time Procedure Performing Provider Status 05/27/23 11:06 AM Echocardiogram, Adult (AOH) Auth (Verified) [facility] 2023 NoteHNO ID: [id number] Author: RT Irish(R) Service: ? Author Type: Client Service Coordinator Type: Progress Notes Filed: 11/12/2022 12:41 PM [...] BY: RT Irish(R) November 12, 2022 12:24 [facility]2023 NoteHNO ID: [id number] Author: Keyanna Sanchez APRN.CUSTOM STOCK MAKER Service: ? Author Type: Nurse Practitioner Type: [...] SURGICAL HISTORY OF 03-31-11 ICD placement at [place] PAST SURGICAL HISTORY OF 03-30-11 Heart cath at [place] PERC TRANSL COR ANGIO 03-14-10,04-07-10,09-23-10 Percutaneous Transluminal Coronary Angio-2 stents [facility] LOCALZTN CLIP,PERC,DURING BREAST BX 07/25/07 LEFT RPLCMT [...] (3rd metacarpal base an (more content not included)...[facility]2023 Instructions* Patient Instructions* Keyanna Sanchez APRN.CNP [...] radiographic abnormalities seen in the third digit. Paintless Dent Repair Technician: ANDRESSA Transcribe Date/Time: Nov 12 2022 1:10P [...] illness Keyanna Sanchez APRN.CNP documented in this encounterJ[facility] History of Present illness Narrative* Keyanna Sanchez APRN.CNP - 11/12/2022 12:07 PM EST Subjective Lizbeth A Smipascual is a 67 year old female who [...] SURGICAL HISTORY OF 03-31-11 ICD placement at [place] PAST SURGICAL HISTORY OF 03-30-11 Heart cath at [place] PERC TRANSL COR ANGIO 03-14-10,04-07-10,09-23-10 Percutaneous Transluminal Coronary Angio-2 stents [facility] LOCALZTN CLIP,PERC,DURING BREAST BX 07/25/07 LEFT RPLCMT [...] radiographic abnormalities seen in the third digit. Paintless Dent Repair Technician: ANDRESSA Transcribe Date/Time: Nov 12 2022 1:10P [...] illness Ladonna Barron APRN- student TEACHING PROVIDER (Physician/PA/MOTION PICTURE PROJECTIONIST) NOTE OF PERSONAL INVOLVEMENT IN CARE: I have personally seen and examined the patient and performed the medical decision-making components. I have reviewed the Advanced Practice Registered Nurse (MOTION PICTURE PROJECTIONIST) Student's documentation and verified the findings in the note as written. Any additions or changes are noted in bold/italics. Signature: Keyanna Sanchez Date: 11/12/2022 Time: 5:46 PM Keyanna Sanchez APRN.CUSTOM STOCK MAKER documented in this encounterJ.W. [facility]09-22-[facility] History of Past illness Narrative* Problem Noted Date Resolved Date Thoracic or lumbosacral neuritis or radiculitis, unspecified 07/09/2014 10/30/2016 Low back pain 06/28/2014 10/30/2016 Allergic rhinitis 03/17/2011 10/30/2016 Calcaneal spur 07/19/2009 10/30/2016 Plantar fasciitis 07/15/2009 10/30/2016 Sciatica 11/29/2007 12/30/2007 HYPERTENSION ACCELERATED, MALIGNANT 07/02/2007 07/22/2016 documented as of this encounter (statuses as of 11/12/2022) [facility] Future Appointments Appointment Date:10/23/2021 02:15:00 PM Scheduled Provider: Location:[facility] Appointment Type:CV Remote Procedure HM Appointment Date:03/05/2022 10:45:00 AM Scheduled Provider: Location:[facility] Appointment Type:CV OV [facility] Evaluation + Plan note Future Appointments Appointment [...] 09/21/22 Radiology* NM Myocardial Spect Rest/Stress 10/07/22 [facility] [facility] Future Appointments Appointment Date:11/02/2022 02:30:00 PM Scheduled Provider: Location:[facility] Appointment Type:CV OV Appointment Date:12/18/2022 09:15:00 AM Scheduled Provider: Location:[facility] Appointment Type:CV Remote Procedure HM Appointment Date:01/07/2023 11:00:00 AM Scheduled Provider: Location:[facility] Appointment Type:CV Procedure - AOH Echo Appointment Date:01/14/2023 11:00:00 AM Scheduled Provider: Location:[facility] Appointment Type:CV OV Future Scheduled Tests Laboratory* Lipid Profile 04/16/22 [facility] Evaluation + Plan note Future Appointments Appointment Date:06/14/2023 01:45:00 PM Scheduled Provider:JOCELINE TINEO PA-C Location:[facility] Appointment Type:CV OV Appointment Date:06/14/2023 02:30:00 PM Scheduled Provider:JUD MALONEY Location:[facility] Appointment Type:CV OV [facility] Evaluation + Plan note Future Appointments Appointment Date:07/23/2023 10:30:00 AM Scheduled Provider: Location:[facility] Appointment Type:CV Incision Check Appointment Date:09/06/2023 08:45:00 AM Scheduled Provider:JUD MALONEY Location:[facility] Appointment Type:CV OV Appointment Date:09/06/2023 09:00:00 AM Scheduled Provider:JOCELINE TINEO PA-C Location:[facility] Appointment Type:CV OV Appointment [...] Hematocrit (poc) 07/05/23 * Glucose (poc) 07/05/23 [facility] Evaluation + Plan note Future Appointments Appointment [...] Radiology* CT Angiography Chest w/ Contrast 11/01/23 [facility] Evaluation + Plan note Future Appointments Appointment Date:02/10/2024 10:30:00 AM Scheduled Provider: Location:[facility] Appointment Type:CV OV Appointment Date:04/04/2024 03:00:00 PM Scheduled Provider: Location:[facility] Appointment Type:CV Remote Procedure HM Appointment Date:07/10/2024 02:15:00 PM Scheduled Provider: Location:[facility] Appointment Type:CV Remote Procedure HM Appointment Date:09/05/2024 01:00:00 PM Scheduled Provider: Location:[facility] Appointment Type:CV Office Procedure ICD Appointment Date:09/05/2024 01:00:00 PM Scheduled Provider:JUD MALONEY Location:[facility] Appointment Type:CV OV Appointment Date:12/05/2024 02:00:00 PM Scheduled Provider: Location:[facility] Appointment Type:CV Remote Procedure HM Appointment Date:03/06/2025 04:15:00 PM Scheduled Provider: Location:[facility] Appointment Type:CV Remote Procedure HM Appointment Date:06/05/2025 04:15:00 PM Scheduled Provider: Location:[facility] Appointment Type:CV Remote Procedure HM Future Scheduled Tests Radiology* CT Angiography Chest w/ Contrast 11/01/23 [facility] Evaluation + Plan note Future Appointments Appointment Date:04/04/2024 03:00:00 PM Scheduled Provider: Location:[facility] Appointment Type:CV Remote Procedure HM Appointment Date:05/18/2024 10:30:00 AM Scheduled Provider:SOPHIA GANT Location:[facility] Appointment Type:CV OV Appointment Date:07/10/2024 02:15:00 PM Scheduled Provider: Location:[facility] Appointment Type:CV Remote Procedure HM Appointment Date:09/05/2024 01:00:00 PM Scheduled Provider: Location:[facility] Appointment Type:CV Office Procedure ICD Appointment Date:09/05/2024 01:00:00 PM Scheduled Provider:JUD MALONEY Location:[facility] Appointment Type:CV OV Appointment Date:12/05/2024 02:00:00 PM Scheduled Provider: Location:[facility] Appointment Type:CV Remote Procedure HM Appointment Date:03/06/2025 04:15:00 PM Scheduled Provider: Location:[facility] Appointment Type:CV Remote Procedure HM Appointment Date:06/05/2025 04:15:00 PM Scheduled Provider: Location:[facility] Appointment Type:CV Remote Procedure HM Future Scheduled Tests Radiology* CT Angiography Chest w/ Contrast 11/01/23 [facility] Evaluation note* Diagnosis Onset Date Resolution Status Borderline type 2 diabetes mellitus chronic Hyperlipemia chronic Hypertension chronic Insomnia chronic Flu vaccine need acute Borderline type 2 diabetes mellitus chronic CAD (coronary artery disease) chronic Hypertension [facility] Work Phone: Evaluation note* Diagnosis Onset Date Resolution Status Hyperlipemia chronic Hypertension chronic Insomnia chronic Borderline type 2 diabetes mellitus chronic Hyperlipemia chronic Hypertension chronic Insomnia [facility] Work Phone: Evaluation note* Diagnosis Onset Date Resolution Status Borderline type 2 diabetes mellitus chronic Hyperlipemia chronic Hypertension chronic Insomnia chronic Exposure to COVID-19 virus n oneactive Acute pharyngitis noneactive [facility] Work Phone: Evaluation note* Diagnosis Pain of left middle finger- [facility] Onset Date Resolution Status Major depressive disorder, recurrent chronic Major depressive disorder, recurrent chronic Anxiety and depression chron ic Borderline type 2 diabetes mellitus chronic Diarrhea chronic Hypertension chronic Left knee pain [facility] Work Phone: Evaluation note* Diagnosis Onset Date Resolution Status Anxiety and depression chron ic Borderline type 2 diabetes mellitus chronic Hyperlipemia chronic Hypertension chronic Insomnia [facility] Work Phone: Evaluation note* Diagnosis Onset Date Resolution Status Anxiety and depression chron ic Borderline type 2 diabetes mellitus chronic Hyperlipemia chronic Hypertension chronic Insomnia chronic Aortic valve regurgitation due to aortic dilation acute Axillary lymphadenopathy acu te Breast mass, right acute Anxiety and depression chron ic Borderline type 2 diabetes mellitus chronic Hypertension [facility] Work Phone: Evaluation note* Diagnosis Aortic valve insufficiency, etiology of cardiac valve disease unspecified Ascending aorta dilation (CMS/HCC) Thoracic aneurysm without mention of rupture Coronary artery disease involving [place] coronary artery of [place] heart with other form of angina pectoris (CMS/HCC) Coronary artery disease of [place] artery of [place] heart with stable angina pectoris (CMS/HCC)- Primary documented in this encounter [facility] Work Phone: Evaluation note* Diagnosis Onset Date Resolution Status Aortic valve regurgitation due to aortic dilation acute Breast mass, right acute Anxiety and depression chron ic Borderline type 2 diabetes mellitus chronic Hypertension chronic Aortic valve regurgitation due to aortic dilation acute Breast mass, right acute CAD (coronary artery disease) chronic Invasive ductal carcinoma of breast acute Regional lymph node metastasis present acute [facility] Work Phone: Evaluation note* Diagnosis Invasive ductal carcinoma of breast, female, right (Multi) Malignant neoplasm of overlapping sites of right female breast (Multi) documented in this encounter [facility] Work Phone: Evaluation note* Diagnosis Abnormal mammogram Abnormal mammogram, unspecified documented in this encounter [facility] Work Phone: Evaluation note* Diagnosis Carcinoma of breast, estrogen receptor positive, stage 3, unspecified laterality (Multi) Cardiotoxicity (Multi) documented in this encounter [facility] Work Phone: Evaluation note* Diagnosis Carcinoma of breast, estrogen receptor positive, stage 3, unspecified laterality (Multi)- Primary Other specified disorders of breast Encounter for monitoring cardiotoxic drug therapy Cardiotoxicity (Multi) Aortic valve disorder Aortic valve disorders documented in this encounter [facility] Work Phone: Evaluation note* Diagnosis Malignant neoplasm of lower-outer quadrant of right breast of female, estrogen receptor negative (Multi)- Primary Abnormal mammogram Abnormal mammogram, unspecified documented in this encounter [facility] Work Phone: Evaluation note* Diagnosis Carcinoma of breast, estrogen receptor positive, stage 3, unspecified laterality (Multi) documented in this encounter [facility] Work Phone: Evaluation note* Diagnosis Carcinoma of breast, estrogen receptor positive, stage 3, unspecified laterality (Multi) documented in this encounter [facility] Work Phone: Evaluation note* Diagnosis Cardiomyopathy, ischemic- Primary Other specified forms of chronic ischemic heart disease Chronic diastolic heart failure (Multi) Chronic diastolic heart failure Aortic valve stenosis, etiology of cardiac valve disease unspecified Aneurysm of ascending aorta without rupture (CMS-HCC) Other cardiomyopathy (Multi) documented in this encounter [facility] Work Phone: Evaluation note* Diagnosis Aortic valve stenosis, etiology of cardiac valve disease unspecified- Primary Carcinoma of breast, estrogen receptor positive, stage 3, unspecified laterality (Multi) Other specified disorders of breast Encounter for monitoring cardiotoxic drug therapy Cardiotoxicity (Multi) documented in this encounter [facility] Work Phone: Evaluation note* Diagnosis Malignant neoplasm of lower-outer quadrant of right breast of female, estrogen receptor negative (Multi) documented in this encounter [facility] Work Phone: Evaluation note* Diagnosis Malignant neoplasm of lower-outer quadrant of right female breast (Multi) Estrogen receptor negative status (ER-) Estrogen receptor negative status [ER-] documented in this encounter [facility] Work Phone: Evaluation note* Diagnosis Cardiomyopathy, ischemic Other specified forms of chronic ischemic heart disease Chronic diastolic heart failure (Multi) Chronic diastolic heart failure Aortic valve stenosis, etiology of cardiac valve disease unspecified documented in this encounter [facility] Work Phone: Evaluation note* Diagnosis Carcinoma of breast, estrogen receptor positive, stage 3, unspecified laterality (Multi)- Primary Ascending aorta dilation (CMS-HCC) Thoracic aneurysm without mention of rupture Aortic valve disorder Aortic valve disorders Encounter for antineoplastic chemotherapy documented in this encounter [facility] Work Phone: Evaluation note* Diagnosis HYPERTENSION ACCELERATED, MALIGNANT- Primary Essential hypertension, malignant Need for prophylactic vaccination and inoculation against influenza Hyperlipidemia Other and unspecified hyperlipidemia Special screening for malignant neoplasms, colon AORTIC VALVE DISORDER Aortic valve disorders Malignant ventricular arrhythmias Cardiac dysrhythmia, unspecified Pain of left middle finger [facility] Aneurysm of ascending aorta without rupture (CMS-HCC)- Primary Aneurysm of ascending aorta without rupture (CMS-HCC) Paroxysmal atrial fibrillation (Multi) Atrial fibrillation Bilateral carotid artery stenosis Occlusion and stenosis of carotid artery without mention of cerebral infarction Other specified symptoms and signs involving the circulatory and respiratory systems Encounter for other preprocedural examination Aneurysm of ascending aorta without rupture (CMS-HCC) documented in this encounter [facility] Work Phone: Evaluation note* Diagnosis Aneurysm of ascending aorta without rupture (CMS-HCC)- Primary Ascending aortic aneurysm, unspecified whether ruptured (CMS-HCC) Aortic valve stenosis, etiology of cardiac valve disease unspecified 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 Implantable cardioverter-defibrillator (ICD) in situ Nonrheumatic aortic valve disorder, unspecified S/P AVR (aortic valve replacement) Heart valve replaced by other means S/P CABG (coronary artery bypass graft) Postsurgical aortocoronary bypass status S/P AVR Acute postoperative pain Other acute postoperative pain Ascending aortic aneurysm, unspecified whether ruptured ([facility]) documented in this encounter [facility] Work Phone: Evaluation note* Diagnosis Status post aortic valve replacement Heart valve replaced by other means documented in this encounter [facility] Work Phone: Evaluation note* Diagnosis Carcinoma of breast, estrogen receptor positive, stage 3, unspecified laterality (Multi) Malignant neoplasm of lower-outer quadrant of right breast of female, estrogen receptor negative documented in this encounter [facility] Work Phone: Evaluation note* Diagnosis Carcinoma of breast, estrogen receptor positive, stage 3, unspecified laterality (Multi) Malignant neoplasm of lower-outer quadrant of right breast of female, estrogen receptor negative documented in this encounter [facility] Work Phone: Evaluation note* Diagnosis Carcinoma of breast, estrogen receptor positive, stage 3, unspecified laterality (Multi)- Primary Malignant neoplasm of lower-outer quadrant of right breast of female, estrogen receptor negative Carcinoma of breast, estrogen receptor positive, stage 3, unspecified laterality (Multi) Malignant neoplasm of lower-outer quadrant of right breast of female, estrogen receptor negative documented in this encounter [facility] Work Phone: Evaluation note* Diagnosis Malignant neoplasm of lower-outer quadrant of right breast of female, estrogen receptor negative (Multi)- Primary Encounter for antineoplastic chemotherapy Carcinoma of breast, estrogen receptor positive, stage 3, unspecified laterality (Multi) Chemotherapy-induced neutropenia ([facility]) Drug induced neutropenia Chemotherapy-induced nausea Chemotherapy-induced fatigue documented in this encounter [facility] Work Phone: Evaluation note* Diagnosis ICD (implantable cardioverter-defibrillator) in place documented in this encounter [facility] Work Phone: [phone] note* Diagnosis Status post coronary artery bypass grafting- Primary Cardiomyopathy, ischemic Other specified forms of chronic ischemic heart disease Chronic diastolic heart failure Aortic valve stenosis, etiology of cardiac valve disease unspecified documented in this encounter [facility] Work Phone: [phone] note* Diagnosis Neck pain- Primary Cervicalgia documented in this encounter [facility] Work Phone: [phone] note* Diagnosis Aortic valve disorder- Primary Aortic valve disorders Neck pain Cervicalgia Carcinoma of breast, estrogen receptor positive, stage 3, unspecified laterality (Multi) Malignant neoplasm of lower-outer quadrant of right breast of female, estrogen receptor negative (Multi) documented in this encounter [facility] Work Phone: [phone] note* Diagnosis Aneurysm of ascending aorta without rupture (CMS-HCC)- Primary Cardiomyopathy, ischemic Other specified forms of chronic ischemic heart disease Chronic diastolic heart failure (Multi) Chronic diastolic heart failure Aortic valve stenosis, etiology of cardiac valve disease unspecified Aneurysm of ascending aorta without rupture (CMS-HCC) documented in this encounter [facility] Work Phone: [phone] note* Diagnosis Aneurysm of ascending aorta without rupture (CMS-HCC)- Primary Aortic valve disorder- Primary Aortic valve disorders Carcinoma of breast, estrogen receptor positive, stage 3, unspecified laterality (Multi) Malignant neoplasm of lower-outer quadrant of right breast of female, estrogen receptor negative (Multi) Encounter for antineoplastic chemotherapy Chemotherapy-induced fatigue Aneurysm of ascending aorta without rupture (CMS-HCC) documented in this encounter [facility] Work Phone: [phone] note* Diagnosis Aneurysm of ascending aorta without rupture (CMS-HCC)- Primary Aortic valve stenosis, etiology of cardiac valve disease unspecified Aneurysm of ascending aorta without rupture (CMS-HCC) Coronary artery disease of [place] artery of [place] heart with stable angina pectoris (CMS-HCC) Aneurysm of ascending aorta without rupture (CMS-HCC) documented in this encounter [facility] Work Phone: [phone] note* Diagnosis Carcinoma of breast, estrogen receptor positive, stage 3, unspecified laterality (Multi)- Primary Malignant neoplasm of lower-outer quadrant of right breast of female, estrogen receptor negative documented in this encounter [facility] Work Phone: [phone] note* Diagnosis Malignant neoplasm of [place] of breast in female, estrogen receptor negative, unspecified laterality- Primary Status post administration of cardiotoxic chemotherapy Aortic valve stenosis, etiology of cardiac valve disease unspecified documented in this encounter [facility] Work Phone: [phone] note* Diagnosis Malignant neoplasm of are[place] of breast in female, estrogen receptor negative, unspecified laterality Malignant neoplasm of lower-outer quadrant of right breast of female, estrogen receptor negative Encounter for antineoplastic chemotherapy documented in this encounter [facility] Work Phone: [phone] note* Diagnosis Malignant neoplasm of are[place] of breast in female, estrogen receptor negative, unspecified laterality Malignant neoplasm of lower-outer quadrant of right breast of female, estrogen receptor negative Encounter for antineoplastic chemotherapy documented in this encounter [facility] Work Phone: [phone] note* Diagnosis Malignant neoplasm of areola of breast in female, estrogen receptor negative, unspecified laterality- Primary Malignant neoplasm of lower-outer quadrant of right breast of female, estrogen receptor negative Encounter for antineoplastic chemotherapy documented in this encounter [facility] Work Phone: [phone] note* Diagnosis Malignant neoplasm of areola of breast in female, estrogen receptor negative, unspecified laterality Status post administration of cardiotoxic chemotherapy Aortic valve stenosis, etiology of cardiac valve disease unspecified documented in this encounter [facility] Work Phone: [phone] note* Diagnosis Encounter for monitoring cardiotoxic drug therapy- Primary documented in this encounter [facility] Work Phone: [phone] note* Diagnosis Chemotherapy-induced nausea Malignant neoplasm of lower-outer quadrant of right breast of female, estrogen receptor negative Encounter for antineoplastic chemotherapy Chemotherapy-induced fatigue Malignant neoplasm of areola of breast in female, estrogen receptor negative, unspecified laterality documented in this encounter [facility] Work Phone: [phone] note* Diagnosis Malignant neoplasm of lower-outer quadrant of right breast of female, estrogen receptor negative Encounter for antineoplastic chemotherapy Malignant neoplasm of areola of breast in female, estrogen receptor negative, unspecified laterality documented in this encounter [facility] Work Phone: Evaluation note* Diagnosis Malignant neoplasm of areola of breast in female, estrogen receptor negative, unspecified laterality- Primary Chemotherapy-induced nausea Malignant neoplasm of lower-outer quadrant of right breast of female, estrogen receptor negative Encounter for antineoplastic chemotherapy Chemotherapy-induced fatigue documented in this encounter [facility] Work Phone: Evaluation note* Diagnosis Malignant neoplasm of lower-outer quadrant of right breast of female, estrogen receptor negative Encounter for antineoplastic chemotherapy Chemotherapy-induced neutropenia Drug induced neutropenia Chemotherapy-induced nausea Chemotherapy-induced fatigue Malignant neoplasm of areola of breast in female, estrogen receptor negative, unspecified laterality (Multi) Poor balance Abnormality of gait and mobility Difficulty maintaining weight loss documented in this encounter [facility] Work Phone: Hospital course Narrative No data available for this section [facility] Discharge instructions No data available for this section [facility] Discharge instructions* Attachments The following attachments cannot be sent through Care Everywhere. * Neck [facility] ED (Yoruba) [facility] note No data available for this section [facility] Progress note Author Daniela Fallon [facility] Note Date/Time July 13, 2025 10:36am [facility] Internal Medicine [address] [address] [place] [address] OFFICE VISIT Date of Service: 07/13/25 MR#: [id number] Acct: [id number] Name: CHRISTOPHEBraxtonLIZBETH Duane Rep #: [id number] : 1955 Provider: Dr. 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 General Required: No Accompanied by: Self Is patient in pain?: No Allergies No Known Allergies Allergy (Verified 07/13/25 10:01) Medications ?Medication ?Instructions ?Recorded ?Confirmed ?Type aspirin 81 mg chewable tablet 81 mg PO DAILY 11/23/17 07/13/25 History melatonin 10 mg capsule 10 mg PO HS PRN sleep 07/13/25 History calcium carbonate 600 mg PO BID 06/30/1807/13 History nitroglycerin 0.4 mg sublingual See Rx Instructions .R oute 05/11/24 07/13/25 Rx tablet .COMPLEX #75 tabs handicap placard #1 ea 09/01/24 07/13/25 Rx cholecalciferol (vitamin D3) 50 50 mcg PO DAILY 07/13/25 History mcg (2,000 unit) capsule (Vitamin D3) sotalol 80 mg tablet (Betapace) 80 mg PO DAILY 5 07/13/25 History trazodone 100 mg tablet 100 mg PO QHS PRN insomnia # 90 tabs 02/19/25 07/13/25 Rx sertraline 100 mg tablet 100 mg PO QDAY #90 tabs 04/1707/13/25 Rx amlodipine 10 mg tablet 10 mg PO QDAY #90 tabs 05/0707/13/25 Rx lisinopril 40 mg tablet 40 mg PO DAILY #90 tabs 04/1807/13/25 Rx pantoprazole 40 mg tablet,delayed 40 mg PO BID #180 ta bs 05/07/25 07/13/25 Rx release rosuvastatin 20 mg tablet 20 mg PO DAILY #90 tabs 04/1807/13/25 Rx Have you fallen in the past year?: No Nurse's Note: yearly visit flu shot request [facility] Medical History (Updated 07/13/25 @ 11:[address] Daniela Fallon MD) Breast cancer Anorexia Neutropenic fever Gastroenteritis Breast cancer metastasized to axillary lymph node Nontraumatic psoas hematoma Hyperbilirubinemia Severe anemia Non-ST elevation DE (NSTEMI) Rhabdomyolysis Thrombocytopenia CAD (coronary artery disease) Chronic pain Atrial fibrillation ICD (implantable cardioverter-defibrillator) in place Urinary urgency Metastasis to bone Regional lymph node metastasis present Invasive ductal carcinoma of breast Aortic valve regurgitation due to aortic dilation Breast nodule Abnormal findings on imaging test Breast mass, right Skin mole Left knee pain Anxiety and depression Diarrhea Major depressive disorder, recurrent Health care maintenance Flu vaccine need Skin tags, multiple acquired Left hand pain History of cyst of breast History of stroke Heart valve problem GERD (gastroesophageal reflux disease) Hyperlipemia Hypertension Surgical History History of coronary artery bypass graft x 3 History of hysterectomy Cardiac defibrillator in place 4 stents cardiac rythem pacemaker triple bypass, valve replacement, nad aneurysm repair History of tonsillectomy Family History Mother CVA (cerebral vascular accident) Breast cancer, Onset Age: 35 Father Heart disease Sister Breast cancer, Onset Age: 50 Heart disease Hypertension Cancer lung Social History household members: none Smoking Status: Former smoker Tobacco: How many years used: 20 how long ago did patient quit smokin alcohol intake: never substance use type: does not use what type of physical activity do you participate in: none HPI HPI Chief Complaint: Follow-up chronic conditions Details: LIZBETH NIXON, is a 70-year-old female presenting for follow-up of her chronic conditions. The patient is undergoing chemotherapy for breast cancer which has metastasized to the bone. Following which, has had significant weight loss over the past year, with her Body Mass Index (BMI) decreasing from 30 to 22. The patient attributed her weight loss to chemotherapy-induced reduced appetite and taste changes, which make most foods unpalatable. She had an appointment scheduled with a tie inspector at a [facility] but had to cancel due to illness. Sheplans to reschedule In terms of mood, the patient experiences intermittent depression but feels thather current dose of Zoloft is beneficial. She is also on trazodone 100 mg nightly as needed which she takes for insomnia as well. For the most part, it is somewhat helpful. Has some periods of difficulty initiating sleep. History of hypertension, blood pressure today at 128/72 mmHg. Taking amlodipineand lisinopril as prescribed. She continues follow-up with her court bailiff andoncology-court bailiff as well. No chest pain, palpitations or significant shortness of breath reported at this time. Other chronic medical conditions are stable. Attestation: Documentation on this patient encounter was supported using ambient scribe technology/ voice AI technology. The patient consented to recording for the purpose of documenting the encounter. Provider reviewed content of the generatednote prior to signature. ROS Const Constitutional: No body ache, excessive sweating, fatigue, fever(s), frequent falls, headache(s), snoring, weakness, weight change, sleep problems or change in appetite Eyes Eyes: No blurry vision, change in vision, discharge, vision loss, dry eyes, eye pain or Light sensitivity ENT ENT: No abnormal hearing, ear or mastoid pain, tinnitus, nasal congestion, headache(s), neck pain or sore throat Resp Respiratory: No cough, shortness of breath, snoring or wheezing Cardio Cardiology: No chest pain at rest, chest pain with exertion, excessive sweating,shortness of breath, dyspnea on exertion, lightheadedness, orthopnea or palpitations Gastro GI: No abdominal pain, change in bowel habits, constipation, cramping, diarrhea,nausea/dyspepsia or vomiting Genitourinary-Female: No burning urination, painful urination, urinary incontinence, urinary frequency, blood in urine, abnormal periods or pelvic pain Musc Musculoskeletal: No abnormal gait, joint pain, back pain, limited range of motion, neck pain, numbness, stiffness, tingling or Arthritis Skin Skin: No dry skin, redness, lesions, itchy eyes, rash or wounds Neuro Neurology: No abnormal gait, abnormal hearing, abnormal speech, dizziness, weakness, frequent falls, headache(s), memory loss, numbness or tingling Psych Psychiatric: No anxiety, No change in appetite, No depression, No memory loss and No Thoughts of harming yourself/Others Endo Endocrine: No cold intolerance, excessive sweating, fatigue, flushing, heat intolerance, increased thirst/drinking, increased hunger or weight change Aller/Imm Allergy/Immunologic: No itchy eyes, seasonal allergy symptoms, hives or wheezing Jose/Lymp Hematologic/Lymphatic: No easy bleeding, easy bruising or enlarged lymph nodes Exam Const General: cooperative, comfortable and no acute distress Orientation: alert, awake and oriented x3 HENMT Head: normal to inspection, normocephalic and atraumatic Ears: hearing grossly normal bilaterally Neck Neck: normal visual inspection, full ROM and supple Resp Effort & Inspection: normal respiratory effort and able to speak in complete sentences Auscultation: Bilateral: Clear to Auscultation Cardio Rate: regular rate Rhythm: regular rhythm Heart Sounds: S1 normal, S2 normal and murmur GI Palpation: soft (Nontender, no palpable organomegaly.) Neuro General: patient alert, patient awake, patient oriented x3, moves all extremities and CN's II-XI intact bilaterally Extrem General: no clubbing, cyanosis or edema Psych Appearance: grossly normal Mental Status: mental status grossly normal Mood: congruent mood Affect: normal affect Immunizations Fluad 65yr up(PF)45 mcg(15 mcgx3)/0.5 mL intramuscular syringe Performing Provider: Daniela Fallon MD Performing Location: [facility] Administered by: Cami Cardoso on 07/13/25 10:23 Dose Route Admin Location Dispensed Lot Number Expiration Date Pack age NDC NDC [employer] Conservationist 45 mcg IM Right Arm (SQ) 0.5 mL [id number] 02/12/26 [id number] [employer]. VIS Given Date VIS Provided VIS Publication Date 07/13/25 Single Vaccine 24 Eligibility Eligibility Date Funding Source Not Applicable Administration Comments: injection given sesar patient tolerated well Coding Level of Care Code Off vis,est,level 4 Diagnoses Anorexia R63.0 Malignant neoplasm of female breast, unspecified estrogen receptor status, unspecified laterality, unspecified site of breast C50.919 Breast location: unspecified site of breast Estrogen receptor status: unspecified Patient sex: female Laterality: unspecified laterality Anxiety and depression F41.9; F32.A Insomnia, unspecified type G47.00 Insomnia type: unspecified Primary hypertension I10 Hypertension type: primary hypertension Hyperlipemia E78.5 Flu vaccine need Z23 Assessment and Plan Assessment and Plan (1) Anorexia: Status: Acute Plan: While her BMI is within range, she is down from a BMI of 30 and does endorse poor appetite. Plans to reschedule with the dietitian, I agree with this. Discussed the use of protein supplements like Ensure or Premier to provide additional calories and nutrients. Suggested trying different supplement types to find a palatable option. (2) Breast cancer: Status: Chronic Qualifiers: Breast location: unspecified site of breast Estrogen receptor status: unspecified Patient sex: female Laterality: unspecified laterality Qualified Code(s): C50.919 - Malignant neoplasm of unspecified site of unspecified female breast Plan: Metastatic. Following up with oncology/radiation oncology. Continue current management. Will review records. (3) Anxiety and depression: Status: Chronic Plan: Overall, doing okay on Zoloft at current dose. Continue Zoloft 100 mg daily. (4) Insomnia: Status: Chronic Qualifiers: Insomnia type: unspecified Qualified Code(s): G47.00 - Insomnia, unspecified Plan: Continue trazodone as needed. Sleep hygiene and other supportive measures are also recommended. (5) Hypertension: Status: Chronic Qualifiers: Hypertension type: primary hypertension Qualified Code(s): I10 - Essential (primary) hypertension Plan: Good control. Blood pressure today as above. Continue amlodipine 10 mg daily, lisinopril 40 mg daily, dietary and lifestyle modifications. (6) Hyperlipemia: Status: Chronic Plan: Continue rosuvastatin 20 mg daily, dietary and lifestyle modifications. (7) Flu vaccine need: Status: Acute Plan: Flu vaccine given. This note was generated with [employer] dictation software. It may contain incorrectwords, spelling, and punctuation that were not noted in checking the note beforesigning. Orders: Orders Influenza Immunization Today Z23 - Encounter for immunization Patient Instructions: - Reschedule your dietitian appointment and discuss nutritional options. - Try various protein supplements with your meals and see what you like. - Continue using amlodipine and lisinopril as prescribed for blood pressure management. - Take Zoloft and trazodone as discussed; monitor your mood and sleep quality. - Keep all healthcare follow-ups, including cardiology and oncology appointments. - Seek medical attention if you experience any concerning symptoms such as severe weight loss, worsening mood, or new or worsening numbness. Clinical Quality Measures Falls Risk Screening/Assistive Devices Have you fallen in the past year?: No 07/13/25 1311 <Electronically signed by Daniela russell MD> Date _ Daniela Fallon MD Cosigner Signature: Date (if applicable) CC: ~ [facility] Work Phone: [facility] (narrative)* Diagnostic Procedure Only (Urgent) - Closed Specialty Diagnoses / Procedures Referred By Contac t Referred To Contact XR IMAGING Diagnoses Pain of left middle finger Procedures XR DIGIT GENERAL 3V FRONTAL/LAT/OBL LEFT RADEX FINGR MINIMUM 2 VIEWS Keyanna Sanchez APRN.CUSTOM STOCK MAKER [address] [place] [address] Xr Imaging Referral ID Status Reason Start Date Expiration Date V isits Requested Visits Authorized [id number] Closed Auto-Generate d Referral 11/12/2022 12/12/2023 1 1 [facility] for referral (narrative)* Diagnostic Procedure Only (Urgent) - Closed Specialty Diagnoses / Procedures Referred By Contac t Referred To Contact XR IMAGING Diagnoses Pain of left middle finger Procedures XR DIGIT GENERAL 3V FRONTAL/LAT/OBL LEFT RADEX FINGR MINIMUM 2 VIEWS Keyanna Sanchez APRN.CUSTOM STOCK MAKER [address] [place] [address] [place] [address] Referral ID Status Reason Start Date Expiration Date V isits Requested Visits Authorized [id number] Closed Auto-Generate d Referral 11/12/2022 12/12/2023 1 1 [facility] for referral (narrative)* Consultation (Routine) - Authorized Specialty Diagnoses / Procedures Referred By Contac t Referred To Contact Cardiology Diagnoses Cardiomyopathy, ischemic Chronic diastolic heart failure (Multi) Aortic valve stenosis, etiology of cardiac valve disease unspecified Procedures Follow Up In Cardiology Cindy Bae MD [address] [facility], [place] [address] Cindy Bae MD [address], [place] [address] Referral ID Status Reason Start Date Expiration Date V isits Requested Visits Authorized [id number] Authorized 06/28/2024 06/28/2025 1 1 [facility] Work Phone: Reason for referral (narrative)No reason for referral information [facility] Phone: Reason for visit Narrative* Diagnostic Procedure Only (Urgent) - Closed Specialty Diagnoses / Procedures Referred By Contac t Referred To Contact XR IMAGING Diagnoses Pain of left middle finger Procedures XR DIGIT GENERAL 3V FRONTAL/LAT/OBL LEFT RADEX FINGR MINIMUM 2 VIEWS Keyanna Sanchez, NEFTALI.CUSTOM STOCK MAKER [address] [place] [address] [place] [address] Referral ID Status Reason Start Date Expiration Date V isits Requested Visits Authorized [id number] Closed Auto-Generate d Referral 11/12/2022 12/12/2023 1 1 [facility] Auth/Cert Specialty Diagnoses / Procedures Referred By Contac t Referred To Contact Diagnoses Aneurysm of ascending aorta without rupture (CMS-HCC) Aneurysm of ascending aorta without rupture (CMS-HCC) [I71.21] Procedures WV AORTIC ANEURYSM<5CM MAX DIAM CENTERLINE/AXIAL CT WV CORONARY ARTERY BYP W/VEIN & ARTERY GRAFT 1 VEIN WV RPLCMT PROST AORTIC VALVE OPEN XCP HOMOGRF/STENT WV -AORT GRF W/CARD BYP F/AORTIC DS OTH/THN DSJ Mitral Valve Replacement/CABG Replacement Aortic Valve Repair Ascending Aorta [place]uel Lozano [place] [id number] [place] [address] Department [place] [address] Phone: tel: fax: [facility] Ananda BODY [address] [place] [address] fax: Referral ID Status Reason Start Date Expiration Date Visits Re quested Visits Authorized [id number] 1 1 [facility] Work Phone: Reuoqu for visit Narrative* CV Imaging (Routine) - Authorized Specialty Diagnoses / Procedures Referred By Annamarieac t Referred To Contact Cardiology Diagnoses Status post aortic valve replacement Procedures Transthoracic Echo Complete WV ECHO TTHRC R-T 2D W/WOM-MODE COMPL SPEC&COLR D Ruel Lozano [place] [id number] [place] [address] Department [place] [address] Phone: tel: fax: Referral ID Status Reason Start Date Expiration Date Visits Requested Visits Authorized [id number] Authorized Perform Procedure 08/11/2025 1 1 [facility] Work Phone: reason for visit Narrative* Imaging (Routine) - Pending Review Specialty Diagnoses / Procedures Referred By Antonieta t Referred To Contact Radiology Diagnoses Carcinoma of breast, estrogen receptor positive, stage 3, unspecified laterality (Multi) Malignant neoplasm of lower-outer quadrant of right breast of female, estrogen receptor negative Procedures BI mammo right diagnostic tomosynthesis BI mammo right diagnostic [place]o Dave[place] [id number] [place] [address] Phone: tel: fax: Referral ID Status Reason Start Date Expiration Date Visits Requested Visits Authorized [id number] Pending Review Perform Procedure 09/20/2024 09/20/2025 1 1 [facility] Work Phone: reason for visit Narrative* Imaging (Routine) - Authorized Specialty Diagnoses / Procedures Referred By Contac t Referred To Contact Radiology Diagnoses Carcinoma of breast, estrogen receptor positive, stage 3, unspecified laterality (Multi) Malignant neoplasm of lower-outer quadrant of right breast of female, estrogen receptor negative Procedures [place] [address] [place] [address] Phone: tel: fax: Referral ID Status Reason Start Date Expiration Date Visits Requested Visits Authorized [id number] Authorized Perform Procedure 09/20/2024 09/20/2025 1 1 [facility] Work Phone: Renibx for visit Narrative* Imaging (Routine) - Authorized Specialty Diagnoses / Procedures Referred By Annamarieac t Referred To Contact Radiology Diagnoses Carcinoma of breast, estrogen receptor positive, stage 3, unspecified laterality (Multi) Malignant neoplasm of lower-outer quadrant of right breast of female, estrogen receptor negative Procedures NM PET CT bone skull base [place] [address] [place] [address] Phone: tel: fax: Referral ID Status Reason Start Date Expiration Date Visits Requested Visits Authorized [id number] Authorized Perform Procedure 09/20/2024 09/20/2025 3 3 [facility] Work Phone: reason for visit Narrative* Imaging (Routine) - Authorized Specialty Diagnoses / Procedures Referred By Contac t Referred To Contact Radiology Diagnoses Malignant neoplasm of areola of breast in female, estrogen receptor negative, unspecified laterality Malignant neoplasm of lower-outer quadrant of right breast of female, estrogen receptor negative Encounter for antineoplastic chemotherapy Procedures CT chest abdomen pelvis w IV contrast Neli Cox, MOTION PICTURE PROJECTIONIST-CUSTOM STOCK MAKER [address] [place] [address] Phone: tel: fax: Referral ID Status Reason Start Date Expiration Date Visits Requested Visits Authorized [id number] Authorized Perform Procedure 02/14/2025 02/14/2026 1 1 [facility] Work Phone: reason for visit Narrative* CV Imaging (Emergency) - Authorized Specialty Diagnoses / Procedures Referred By Contac t Referred To Contact Cardiology Diagnoses Malignant neoplasm of areola of breast in female, estrogen receptor negative, unspecified laterality Status post administration of cardiotoxic chemotherapy Aortic valve stenosis, etiology of cardiac valve disease unspecified Procedures Transthoracic Echo Limited WV ECHO TRANSTHORC R-T 2D W/WO M-MODE REC F-UP/LMTD WV DOPPLER ECHO COLOR FLOW VELOCITY MAPPING WV DOPPLER ECHO PULSE WAVE W/SPECTRAL F-UP/[place] [address] [place] [address] Phone: tel: fax: Referral ID Status Reason Start Date Expiration Date Visits Requested Visits Authorized [id number] Authorized Perform Procedure 04/25/2025 04/25/2026 1 1 [facility] Work Phone: Reason for visit Narrative* Imaging (Routine) - Authorized Specialty Diagnoses / Procedures Referred By Antonieta flores Referred To Contact Radiology Diagnoses Malignant neoplasm of lower-outer quadrant of right breast of female, estrogen receptor negative Encounter for antineoplastic chemotherapy Malignant neoplasm of areola of breast in female, estrogen receptor negative, unspecified laterality Procedures CT chest abdomen pelvis w IV contrast Neli Cox, MOTION PICTURE PROJECTIONIST-CUSTOM STOCK MAKER [address] [place] [address] Phone: tel: fax: Referral ID Status Reason Start Date Expiration Date Visits Requested Visits Authorized [id number] Authorized Perform Procedure 05/16/2025 05/16/2026 1 1 [facility] Work Phone: Chief Complaint and Reason for Visit Chief Complaint 3 M FU 3 M FU Reason for Visit Borderline type 2 di abetes mellitus Hyperlipemia Hypertension Insomnia Flu vaccine need Borderline type 2 diabetes mellitus CAD (coronary artery disease) Hypertension Chief Complaint 3 M FU 3 M FU Reason for Visit Hyperlipemia Hypertension Insomnia Borderline type 2 diabetes mellitus Hyperlipemia Hypertension Insomnia Chief Complaint 3 M FU SORE THROAT, WANTS SEEN, COVID- Reason for Visit Borderline type 2 di abetes mellitus Hyperlipemia Hypertension Insomnia Exposure to COVID-19 virus Acute pharyngitis Chief Complaint ANXIETY/DEPRESSION 6 wk FU 4 m fu Reason for Visit Major depressive dis order, recurrent Major depressive disorder, recurrent Anxiety and depression Borderline type 2 diabetes mellitus Diarrhea Hypertension Left knee pain Chief Complaint fu Reason for Visit Anxiety and depressi on Borderline type 2 diabetes mellitus Hyperlipemia Hypertension Insomnia Chief Complaint fu 3 M FU R BREAST MASS Reason for Visit Anxiety and depressi on Borderline type 2 diabetes mellitus Hyperlipemia Hypertension Insomnia Aortic valve regurgitation due to aortic dilation Axillary lymphadenopathy Breast mass, right Anxiety and depression Borderline type 2 diabetes mellitus Hypertension Chief Complaint 3 M FU R BREAST MASS Birads 4 R Breast R BREAST MASS & R LYMPH NODE NEW-BREAST CA C50.511 R/O SC COMPRESSION *IV ONLY* Reason for Visit Aortic valve regurgi tation due to aortic dilation Breast mass, right Anxiety and depression Borderline type 2 diabetes mellitus Hypertension Aortic valve regurgitation due to aortic dilation Breast mass, right CAD (coronary artery disease) 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 Chief Complaint Admit Date UPPER EXTREMITY September 24, 2024 2 :59pm General illness December 08, 2024 11:31pm N/V/D December 09, 2024 7:20am N/V/D December 10, 2024 12:12pm N/V/D December 10, 2024 2:47pm N/V/D December 11, 2024 6:35pm N/V/D December 12, 2024 5:44pm N/V/D December 13, 2024 5:28pm N/V/D December 14, 2024 6:52pm N/V/D December 15, 2024 2:03pm [facility] FU December 22, 2024 10:3 7am Reason for Visit Admit Date 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 December 10, 2024 12:12pm Gastroenteritis December 10, 2024 12:12pm Neutropenic fever December 10, 2024 12:12pm Pancytopenia December 22, 2024 10:3 7am Nausea and vomiting December 22, 2024 10:3 7am Chief Complaint Admit Date General illness December 08, 2024 11:31pm N/V/D December 09, 2024 7:20am N/V/D December 10, 2024 12:12pm N/V/D December 10, 2024 2:47pm N/V/D December 11, 2024 6:35pm N/V/D December 12, 2024 5:44pm N/V/D December 13, 2024 5:28pm N/V/D December 14, 2024 6:52pm N/V/D December 15, 2024 2:03pm [facility] FU December 22, 2024 10:3 7am ACUTE - RT LEG SWELLING/BOTH LEGS RED Ap ril 2024 12:52pm Reason for Visit Admit Date 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 December 10, 2024 12:12pm Gastroenteritis December 10, 2024 12:12pm Neutropenic fever December 10, 2024 12:12pm Pancytopenia December 22, 2024 10:3 7am Nausea and vomiting December 22, 2024 10:3 7am Vasculitis February 06, 2025 12: 52pm Chief Complaint Admit Date General illness December 08, 2024 11:31pm N/V/D December 09, 2024 7:20am N/V/D December 10, 2024 12:12pm N/V/D December 10, 2024 2:47pm N/V/D December 11, 2024 6:35pm N/V/D December 12, 2024 5:44pm N/V/D December 13, 2024 5:28pm N/V/D December 14, 2024 6:52pm N/V/D December 15, 2024 2:03pm [facility] December 22, 2024 10:3 7am ACUTE - RT LEG SWELLING/BOTH LEGS RED Ap ril 2024 12:52pm FEVER - NOT FEELING WELL April 05, 2025 2:20pm Chief Complaint Admit Date [facility] FU December 22, 2024 10:3 7am ACUTE - RT LEG SWELLING/BOTH LEGS RED Ap ril 2024 12:52pm FEVER - NOT FEELING WELL April 05, 2025 2:20pm sob April 18, 2025 4:20p m Reason for Visit Admit Date Pancytopenia December 22, 2024 10:3 7am Nausea and vomiting December 22, 2024 10:3 7am Vasculitis February 06, 2025 12: 52pm Dizziness April 05, 2025 2:20 pm Fatigue April 05, 2025 2:20 pm Chief Complaint Admit Date FEVER - NOT FEELING WELL April 05, 2025 2:20pm sob April 18, 2025 4:20p m 1 YR July 13, 2025 9:50am Reason for Visit Admit Date Dizziness April 05, 2025 2:20 pm Fatigue April 05, 2025 2:20 pm Anorexia July 13, 2025 9:50am Flu vaccine need July 13, 2025 9:50am Anxiety and depression July 13, 2 025 9:50am Breast cancer July 13, 2025 9:50am Hyperlipemia July 13, 2025 9:50am Hypertension July 13, 2025 9:50am Insomnia July 13, 2025 9:50am Chief Complaint Admit Date 1 YR July 13, 2025 9:50am Fall August 07, 2025 2 :45pm Reason for Visit Admit Date Anorexia July 13, 2025 9:50am Flu vaccine need July 13, 2025 9:50am Anxiety and depression July 13, 2 025 9:50am Breast cancer July 13, 2025 9:50am Hyperlipemia July 13, 2025 9:50am Hypertension July 13, 2025 9:50am Insomnia July 13, 2025 9:50am Skin tear of forearm without complicatio n August 07, 2025 2:45pm Family History No Family History Records Found Relationship Condition Age at Onset Recorded Date/T lisset mother Cerebrovascular accident (CVA) Unknown Malignant neoplasm of breast Unknown father Cardiac disease Unknown sister Malignant neoplasm of breast Unknown Cardiac disease Unknown Hypertension Unknown Malignant neoplasm Unknown Relationship Condition Age at Onset Recorded Date/T lisset mother Cerebrovascular accident (CVA) Unknown Malignant neoplasm of breast 35 father Cardiac disease Unknown sister Malignant neoplasm of breast 50 Cardiac disease Unknown Hypertension Unknown Malignant neoplasm Unknown Advance Directives No Advanced Directives Records Found Advance Directive Response Recorded Date/ Time Living Will No February 13, 2019 8:49am Power of Medical Accounts Receivable Specialist No February 13 8:49am Advance Directive Response Recorded Date/ Time Living Will No February 13, 2019 9:49am Power of Medical Accounts Receivable Specialist No February 13 9:49am Documents on File Type Date Recorded 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 Healthcare Power of Atty 02/09/2024 pat ient record Documents on File Type Date Recorded 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 Healthcare Power of Atty 02/09/2024 pat ient record Date Activated Date Inactivated Comments 06/06/2024 11:30 AM Question Answer Comments Plan of Care: Code Status Discussion Completed Decision Maker: Patient Date Activated Date Inactivated Comments 08/01/2024 5:56 AM Question Answer Comments Plan of Care: Code Status Discussion Not Compl eted Decision Maker: Provider Rationale: Patient condition does not warra nt discussion Date Activated Date Inactivated Comments 06/06/2024 11:30 AM 08/01/2024 5:56 AM Question Answer Comments Plan of Care: Code Status Discussion Completed Decision Maker: Patient Date Activated Date Inactivated Comments 08/05/2024 3:37 PM Date Activated Date Inactivated Comments 08/01/2024 5:56 AM 08/05/2024 3:37 PM Question Answer Comments Plan of Care: Code Status Discussion Not Compl eted Decision Maker: Provider Rationale: Patient condition does not warra nt discussion Date Activated Date Inactivated Comments 06/06/2024 11:30 AM 08/01/2024 5:56 AM Question Answer Comments Plan of Care: Code Status Discussion Completed Decision Maker: Patient Date Activated Date Inactivated Comments 06/06/2024 11:30 AM Question Answer Comments Plan of Care: Code Status Discussion Completed Decision Maker: Patient Date Activated Date Inactivated Comments 08/05/2024 3:37 PM Date Activated Date Inactivated Comments 08/01/2024 5:56 AM 08/05/2024 3:37 PM Question Answer Comments Plan of Care: Code Status Discussion Not Compl eted Decision Maker: Provider Rationale: Patient condition does not warra nt discussion Date Activated Date Inactivated Comments 06/06/2024 11:30 AM 08/01/2024 5:56 AM Question Answer Comments Plan of Care: Code Status Discussion Completed Decision Maker: Patient Advance Directive Response Recorded Date/ Time Living Will Yes September 24 4:05pm Power of Medical Accounts Receivable Specialist Yes September 24, 2024 4:05pm Name of Medical Power of Medical Accounts Receivable Specialist Zuly Ayers September 24, 2024 4:05pm Living Will Yes December 09 025 1:45am Power of Medical Accounts Receivable Specialist Yes December 09, 2024 1:45am Name of Medical Power of Medical Accounts Receivable Specialist Zuly Ayers si ster December 09, 2024 1:45am Advance Directive Response Recorded Date/ Time Living Will Yes December 09 025 1:45am Do you have a Healthcare Pow er of Medical Accounts Receivable Specialist? Yes December 09, 2024 1:45am Name of Medical Power of Medical Accounts Receivable Specialist Zuly arguello December 09, 2024 1:45am Advance Directive Response Recorded Date/ Time Do you have a Healthcare Power of Medical Accounts Receivable Specialist? No April 18, 2025 5:20pm Summary Purpose Reason for Referral Specialty Diagnoses / Procedures Referred By Contac t Referred To Contact Cardiology Procedures Echocardiogram Non Bill [place] [address] [facility] Department [place] [address] Referral ID Status Reason Start Date Expiration Date Visits Requested Visits Authorized [id number] Pending Review Perform Procedure 07/03/2024 07/03/2025 1 1 Specialty Diagnoses / Procedures Referred By Contac t Referred To Contact [place] [address] [facility] Department of Emergency Medicine [place] [phone] Referral ID Status Reason Start Date Expiration Date V isits Requested Visits Authorized [id number] Pending Review 04/30/2024 04/30/2025 1 1 Specialty Diagnoses / Procedures Referred By Contac t Referred To Contact Family Medicine / Primary Care [place] [address] [facility] [place] [address] Referral ID Status Reason Start Date Expiration Date Visits Requested Visits Authorized [id number] Authorized Specialty Services Required 04/30/2024 04/30/2025 1 1 Specialty Diagnoses / Procedures Referred By Contac t Referred To Contact Radiology Diagnoses ICD (implantable cardioverter-defibrillator) in place Procedures XR chest 2 views Cindy Bae MD [address] [facility], [place] [address] Referral ID Status Reason Start Date Expiration Date Visits Requested Visits Authorized [id number] Authorized Perform Procedure 04/14/2024 04/14/2025 1 1 Specialty Diagnoses / Procedures Referred By Contac t Referred To Contact Diagnoses Malignant neoplasm of lower-outer quadrant of right breast of female, estrogen receptor negative (Multi) Encounter for antineoplastic chemotherapy Carcinoma of breast, estrogen receptor positive, stage 3, unspecified laterality (Multi) Chemotherapy-induced neutropenia (CMS-HCC) Neli Cox, MOTION PICTURE PROJECTIONIST-CUSTOM STOCK MAKER [address] [place] [address] Referral ID Status Reason Start Date Expiration Date V isits Requested Visits Authorized [id number] Pending Review 1 1 Specialty Diagnoses / Procedures Referred By Contac t Referred To Contact Cardiology Diagnoses Aneurysm of ascending aorta without rupture (CMS-HCC) Paroxysmal atrial fibrillation (Multi) Bilateral carotid artery stenosis Procedures Vascular US Carotid Artery Duplex Bilateral Isa Mendoza, MOTION PICTURE PROJECTIONIST-CUSTOM STOCK MAKER [address] [place] [address] Referral ID Status Reason Start Date Expiration Date Visits Requested Visits Authorized [id number] Authorized Perform Procedure 07/24/2024 07/24/2025 1 1 Specialty Diagnoses / Procedures Referred By Contac t Referred To Contact Radiology Diagnoses Malignant neoplasm of lower-outer quadrant of right breast of female, estrogen receptor negative (Multi) Procedures BI US guided breast [place] [address] [facility] Department of [place] [address] Referral ID Status Reason Start Date Expiration Date Visits Requested Visits Authorized [id number] Authorized Perform Procedure 03/02/2024 03/02/2025 1 1 Specialty Diagnoses / Procedures Referred By Contac t Referred To Contact Diagnoses Cardiomyopathy, ischemic Chronic diastolic heart failure (Multi) Aortic valve stenosis, etiology of cardiac valve disease unspecified Aneurysm of ascending aorta without rupture (CMS-HCC) Procedures ECG 12 Lead Cindy Bae MD [address] [facility], [facility] [address] [place] [phone] Referral ID Status Reason Start Date Expiration Date V isits Requested Visits Authorized [id number] Authorized 03/08/2024 03/08/2025 1 1 Specialty Diagnoses / Procedures Referred By Contac t Referred To Contact Cardiology Diagnoses Cardiomyopathy, ischemic Chronic diastolic heart failure (Multi) Aortic valve stenosis, etiology of cardiac valve disease unspecified Procedures Follow Up In Cardiology Cindy Bae MD [address] [facility], [facility] 2 [place] [address] Cindy Bae MD [address] [facility], [facility] [address] [place] [address] Referral ID Status Reason Start Date Expiration Date V isits Requested Visits Authorized [id number] Authorized 03/08/2024 03/08/2025 1 1 Specialty Diagnoses / Procedures Referred By Contac t Referred To Contact Cardiology Diagnoses Cardiomyopathy, ischemic Chronic diastolic heart failure (Multi) Aortic valve stenosis, etiology of cardiac valve disease unspecified Procedures Transthoracic Echo (TTE) Complete [place] ECHO TTHRC R-T 2D W/WOM-MODE COMPL SPEC&COLR D Cindy Bae MD [address] [facility], [facility] [address] [place] [address] Referral ID Status Reason Start Date Expiration Date Visits Requested Visits Authorized [id number] Pending Review Perform Procedure 03/08/2024 03/08/2025 1 1 Specialty Diagnoses / Procedures Referred By Contac t Referred To Contact Radiology Diagnoses Carcinoma of breast, estrogen receptor positive, stage 3, unspecified laterality (Multi) Procedures IR CVC port placement IR CVC port WV INSJ TUNNELED CTR VAD W/SUBQ PORT AGE 5 YR/> [place] [address] [place] [address] Referral ID Status Reason Start Date Expiration Date Visits Requested Visits Authorized [id number] Pending Review Perform Procedure 02/09/2024 02/08/2025 1 1 Specialty Diagnoses / Procedures Referred By Contac t Referred To Contact Radiology Diagnoses Carcinoma of breast, estrogen receptor positive, stage 3, unspecified laterality (Multi) Procedures [place] [address] [place] [address] Referral ID Status Reason Start Date Expiration Date Visits Requested Visits Authorized [id number] Authorized Perform Procedure 02/09/2024 02/08/2025 2 2 Specialty Diagnoses / Procedures Referred By Contac t Referred To Contact Cardiology Diagnoses Carcinoma of breast, estrogen receptor positive, stage 3, unspecified laterality (Multi) Cardiotoxicity (Multi) Procedures Transthoracic Echo Limited WV ECHO TRANSTHORC R-T 2D W/WO M-MODE REC F-UP/LMTD WV DOP ECHOCARD COLOR FLOW VELOCITY MAPPING WV DOP ECHOCARD PULSE WAVE W/SPECTRAL F-UP/[place] [address] [place] [address] Referral ID Status Reason Start Date Expiration Date Visits Requested Visits Authorized [id number] Authorized Perform Procedure 02/09/2024 02/08/2025 1 1 Specialty Diagnoses / Procedures Referred By Contac t Referred To Contact Cardiology Diagnoses Carcinoma of breast, estrogen receptor positive, stage 3, unspecified laterality (Multi) Cardiotoxicity (Multi) Procedures Transthoracic Echo Limited WV ECHO TRANSTHORC R-T 2D W/WO M-MODE REC F-UP/LMTD WV DOP ECHOCARD COLOR FLOW VELOCITY MAPPING WV DOP ECHOCARD PULSE WAVE W/SPECTRAL F-UP/LMTD [facility] [place] [address] [place] [address] Referral ID Status Reason Start Date Expiration Date Visits Requested Visits Authorized [id number] Authorized Perform Procedure 02/09/2024 02/08/2025 1 1 Specialty Diagnoses / Procedures Referred By Antonieta t Referred To Contact Radiology Diagnoses Abnormal mammogram Procedures BI breast right [place] [address] Department [place] [address] Referral ID Status Reason Start Date Expiration Date Visits Requested Visits Authorized [id number] Authorized Perform Procedure 02/09/2024 02/08/2025 1 1 Specialty Diagnoses / Procedures Referred By Contac t Referred To Contact Radiology Diagnoses Invasive ductal carcinoma of breast, female, right (Multi) Malignant neoplasm of overlapping sites of right female breast (Multi) Procedures BI [place] [address] [address] Department of Surgery-Surgical Oncology [place] [phone] Referral ID Status Reason Start Date Expiration Date Visits Requested Visits Authorized [id number] Authorized Perform Procedure 02/09/2024 02/08/2025 1 1 Specialty Diagnoses / Procedures Referred By Contac t Referred To Contact Radiology Procedures BI interpretation [place] [address] [address] Department of [place] [address] Referral ID Status Reason Start Date Expiration Date Visits Requested Visits Authorized [id number] Pending Review Perform Procedure 02/07/2024 02/06/2025 1 1 Additional Source Comments Goals (unrecognized section and content) Goals may be documented in a n alternate section Care Team (unrecognized sect ion and content) Care Team Personnel Name: JUAN F MARCOS MD Position: P4 Physician - Cardiology Member Role: Cleaning Associate Address: Address: [address] [place] [address] Name: DANIELA FALLON MD Member Role: Primary Care Physician Address: Address: [address] [place] [address] Care Team Related Persons Name: ARIANNE BEDOYA Care Team Personnel Name: JUAN F MARCOS MD Position: P4 Physician - Cardiology Member Role: Cleaning Associate Address: Address: [address] [place] [address] Name: DANIELA FALLON MD Member Role: Primary Care Physician Address: Address: [address] [place] [address] Care Team Related Persons Name: ARIANNE BEDOYA Source Comments (unrecognize d section and content) In the event this informatio n is protected by the Federal Confidentiality of Alcohol and Drug Abuse Patient Records regulations: The Federal rules restrict any use of the information to criminally investigate or prosecute any alcohol or drug abuse patient.[facility] the event this information is protected by the Federal Confidentiality of Alcohol and Drug Abuse Patient Records regulations: The Federal rules restrict any use of the information to criminally investigate or prosecute any alcohol or drug abuse patient.[facility] Reason for Visit (unrecogniz ed section and content) Reason Comments Follow-up Specialty Diagnoses / Procedures Referred By Contac t Referred To Contact Diagnoses Carcinoma of breast, estrogen receptor positive, stage 3, unspecified laterality (Multi) [place] [address] [place] [address] [address] Referral ID Status Reason Start Date Expiration Date V isits Requested Visits Authorized [id number] Authorized 03/10/2024 03/10/2025 1 99 Reason Comments left hand middle finger pain Woke up wit h symptoms-no injury Specialty Diagnoses / Procedures Referred By Contac t Referred To Contact Radiology Procedures BI interpretation [place] [address] [address] Department of Surgery-Surgical Oncology [place] [phone] Referral ID Status Reason Start Date Expiration Date Visits Requested Visits Authorized [id number] Pending Review Perform Procedure 02/07/2024 02/06/2025 1 1 Referral ID Status Reason Start Date Expiration Date Visits Requested Visits Authorized [id number] Pending Review Perform Procedure 02/07/2024 02/06/2025 1 1 Specialty Diagnoses / Procedures Referred By Contac t Referred To Contact Radiology Diagnoses Invasive ductal carcinoma of breast, female, right (Multi) Malignant neoplasm of overlapping sites of right female breast (Multi) Procedures BI [place] [address] [address] Department of [place] [address] Referral ID Status Reason Start Date Expiration Date Visits Requested Visits Authorized [id number] Authorized Perform Procedure 02/09/2024 02/08/2025 1 1 Specialty Diagnoses / Procedures Referred By Contac t Referred To Contact Radiology Diagnoses Invasive ductal carcinoma of breast, female, right (Multi) Malignant neoplasm of overlapping sites of right female breast (Multi) Procedures BI mammo bilateral [place] [address] [address] Department [place] [address] Referral ID Status Reason Start Date Expiration Date Visits Requested Visits Authorized [id number] Authorized Perform Procedure 02/09/2024 02/08/2025 1 1 Reason Comments New Patient Visit Specialty Diagnoses / Procedures Referred By Contac t Referred To Contact Cardiology Diagnoses Carcinoma of breast, estrogen receptor positive, stage 3, unspecified laterality (Multi) Cardiotoxicity (Multi) Procedures Transthoracic Echo Limited WV ECHO TRANSTHORC R-T 2D W/WO M-MODE REC F-UP/LMTD WV DOP ECHOCARD COLOR FLOW VELOCITY MAPPING WV DOP ECHOCARD PULSE WAVE W/SPECTRAL F-UP/[place] [address] [place] [address] Referral ID Status Reason Start Date Expiration Date Visits Requested Visits Authorized [id number] Authorized Perform Procedure 02/09/2024 02/08/2025 1 1 Reason Comments New Patient Visit Specialty Diagnoses / Procedures Referred By Contac t Referred To Contact Radiology Diagnoses Abnormal mammogram Procedures BI US guided breast localization and biopsy right BI breast right [place] [address] [facility] [place] [address] Referral ID Status Reason Start Date Expiration Date Visits Requested Visits Authorized [id number] Pending Review Perform Procedure 02/09/2024 02/08/2025 1 1 Specialty Diagnoses / Procedures Referred By Contac t Referred To Contact Radiology Diagnoses Carcinoma of breast, estrogen receptor positive, stage 3, unspecified laterality (Multi) Procedures [place] [address] [place] [address] Referral ID Status Reason Start Date Expiration Date Visits Requested Visits Authorized [id number] Authorized Perform Procedure 02/09/2024 02/08/2025 2 2 Specialty Diagnoses / Procedures Referred By Contac t Referred To Contact Radiology Diagnoses Carcinoma of breast, estrogen receptor positive, stage 3, unspecified laterality (Multi) Procedures IR CVC port placement IR CVC port WV INSJ TUNNELED CTR VAD W/SUBQ PORT AGE 5 YR/> [place] [address] [address] [place] [phone] Referral ID Status Reason Start Date Expiration Date Visits Requested Visits Authorized [id number] Authorized Perform Procedure 02/09/2024 02/08/2025 1 1 Specialty Diagnoses / Procedures Referred By Contac t Referred To Contact Radiology Diagnoses Malignant neoplasm of lower-outer quadrant of right breast of female, estrogen receptor negative (Multi) Procedures BI US guided [place] [address] [address] Department of Surgery-Surgical Oncology [place] [phone] Referral ID Status Reason Start Date Expiration Date Visits Requested Visits Authorized [id number] Authorized Perform Procedure 03/02/2024 03/02/2025 1 1 Specialty Diagnoses / Procedures Referred By Contac t Referred To Contact Radiology Diagnoses Malignant neoplasm of lower-outer quadrant of right female breast (Multi) Estrogen receptor negative status (ER-) Procedures BI breast biopsy [place] [address] [address] Department of [place] [address] Referral ID Status Reason Start Date Expiration Date Visits Requested Visits Authorized [id number] Authorized Perform Procedure 03/07/2024 03/07/2025 1 1 Specialty Diagnoses / Procedures Referred By Contac t Referred To Contact Radiology Diagnoses Malignant neoplasm of lower-outer quadrant of right female breast (Multi) Estrogen receptor negative status (ER-) Procedures BI US guided breast [place] [address] [facility] Department of Surgery-Surgical Oncology [place] [phone] Referral ID Status Reason Start Date Expiration Date Visits Requested Visits Authorized [id number] Authorized Perform Procedure 03/07/2024 03/07/2025 1 1 Specialty Diagnoses / Procedures Referred By Contac t Referred To Contact Cardiology Diagnoses Cardiomyopathy, ischemic Chronic diastolic heart failure (Multi) Aortic valve stenosis, etiology of cardiac valve disease unspecified Procedures Transthoracic Echo (TTE) Complete [place] ECHO TTHRC R-T 2D W/WOM-MODE COMPL SPEC&COLR D Cindy Bae MD [address] [facility], [facility] 2 [place] [phone] Referral ID Status Reason Start Date Expiration Date Visits Requested Visits Authorized [id number] Authorized Perform Procedure 03/08/2024 03/08/2025 1 1 Specialty Diagnoses / Procedures Referred By Contac t Referred To Contact Cardiology Diagnoses Aneurysm of ascending aorta without rupture (CMS-HCC) Paroxysmal atrial fibrillation (Multi) Bilateral carotid artery stenosis Procedures Vascular US Carotid Artery Duplex Bilateral Isa Mendoza, NEFTALI-KATELIN [address] [address] [place] [phone] Referral ID Status Reason Start Date Expiration Date Visits Requested Visits Authorized [id number] Authorized Perform Procedure 07/24/2024 07/24/2025 1 1 Reason Comments Follow-up Specialty Diagnoses / Procedures Referred By Contac t Referred To Contact Radiology Diagnoses ICD (implantable cardioverter-defibrillator) in place Procedures XR chest 2 views Cindy Bae MD [address] [facility], [facility] 2 [place] [address] Referral ID Status Reason Start Date Expiration Date Visits Requested Visits Authorized [id number] Authorized Perform Procedure 04/14/2024 04/14/2025 1 1 Reason Comments Follow-up Specialty Diagnoses / Procedures Referred By Contac t Referred To Contact Cardiology Diagnoses Cardiomyopathy, ischemic Chronic diastolic heart failure Aortic valve stenosis, etiology of cardiac valve disease unspecified Procedures Follow Up In Cardiology Cindy Bae MD [address], [place] [address] Phone: tel: fax: Cindy Bae MD [address], [place] [address] Phone: tel: fax: Referral ID Status Reason Start Date Expiration Date V isits Requested Visits Authorized [id number] Authorized 06/28/2024 06/28/2025 1 1 Reason Comments Neck Pain Reason Comments Follow-up Specialty Diagnoses / Procedures Referred By Contac t Referred To Contact Cardiology Diagnoses Cardiomyopathy, ischemic Chronic diastolic heart failure (Multi) Aortic valve stenosis, etiology of cardiac valve disease unspecified Procedures Follow Up In Cardiology Cindy Bae MD [address] [place], [place] [address] Cindy Bae MD [address] [place], [place] [address] Referral ID Status Reason Start Date Expiration Date V isits Requested Visits Authorized [id number] Authorized 03/08/2024 03/08/2025 1 1 Specialty Diagnoses / Procedures Referred By Contac t Referred To Contact Cardiology Procedures Echocardiogram Non Bill [place] [address] [facility] [place] [address] Referral ID Status Reason Start Date Expiration Date Visits Requested Visits Authorized [id number] Pending Review Perform Procedure 07/03/2024 07/03/2025 1 1 Reason Comments New Patient Visit Consult Referral ID Status Reason Start Date Expiration Date Visits Requested Visits Authorized [id number] Pending Review Perform Procedure 07/17/2024 07/17/2025 1 1 Reason Comments Follow-up Care Teams (unrecognized sec tion and content) Team Status: Active Member Role Status Dates Dr. Daniela Fallon MD Primary Care Provider Active Team Status: Active Member Role Status Dates Dr. Daniela Fallon MD Primary Care Provider Active Start: December 08, 2024 Dr. Krzysztof Leal DO Emergency Provider Activ e Start: December 08, 2024 Dr. Tere Price MD Admit Provider Active St art: December 08, 2024 Dr. Tere Price MD Attending Provider Active Start: December 08, 2024 Dr. Tere Price MD Other Provider Active St art: December 08, 2024 Team Status: Active Member Role Status Dates Dr. Daniela Fallon MD Primary Care Provider Active Start: December 09, 2024 Dr. Krzysztof Leal DO Emergency Provider Activ e Start: December 09, 2024 Dr. Tere Price MD Admit Provider Active St art: December 09, 2024 Dr. Tere Price MD Other Provider Active St art: December 09, 2024 Dr. Gerson Renae MD Attending Provider Active Start: December 09, 2024 Dr. Gerson Renae MD Other Provider Active Sta rt: December 09, 2024 Team Status: Inactive Member Role Status Dates Dr. Daniela Fallon MD Primary Care Provider Active Start: December 10, 2024 End: December 15, 2024 Dr. Krzysztof Leal DO Emergency Provider Activ e Start: December 10, 2024 End: December 15, 2024 Dr. Tere Price MD Admit Provider Active St art: December 10, 2024 End: December 15, 2024 Dr. Tere Pirce MD Other Provider Active St art: December 10, 2024 End: December 15, 2024 Dr. Siva Subramanian MD Other Provider Active Start: December 10, 2024 End: December 15, 2024 Dr. Guillaume [place] DO Attending Provider Active Start: December 10, 2024 End: December 15, 2024 Dr. Gerson Renae MD Other Provider Active Sta rt: December 10, 2024 End: December 15, 2024 Team Status: Active Member Role Status Dates Dr. Daniela Fallon MD Primary Care Provider Active Start: December 10, 2024 Dr. Krzysztof Leal DO Emergency Provider Activ e Start: December 10, 2024 Dr. Tere Price MD Admit Provider Active St art: December 10, 2024 Dr. Tere Price MD Other Provider Active St art: December 10, 2024 Dr. Gerson Renae MD Attending Provider Active Start: December 10, 2024 Dr. Gerson Renae MD Other Provider Active Sta rt: December 10, 2024 Team Status: Active Member Role Status Dates Dr. Daniela Fallon MD Primary Care Provider Active Start: December 11, 2024 Dr. Krzysztof Leal DO Emergency Provider Activ e Start: December 11, 2024 Dr. Tere Price MD Admit Provider Active St art: December 11, 2024 Dr. Tere Price MD Other Provider Active St art: December 11, 2024 Dr. Siva Subramanian MD Other Provider Active Start: December 11, 2024 Dr. Guillaume [place] DO Attending Provider Active Start: December 11, 2024 Dr. Guillaume [place] , Other Provider Active S tart: December 11, 2024 Dr. Gerson Renae MD Other Provider Active Sta rt: December 11, 2024 Team Status: Active Member Role Status Dates Dr. Daniela Fallon MD Primary Care Provider Active Start: December 12, 2024 Dr. Krzysztof Leal DO Emergency Provider Activ e Start: December 12, 2024 Dr. Tere Price MD Admit Provider Active St art: December 12, 2024 Dr. Tere Price MD Other Provider Active St art: December 12, 2024 Dr. Siva Subramanian MD Other Provider Active Start: December 12, 2024 Dr. Guillaume [place] DO Attending Provider Active Start: December 12, 2024 Dr. Guillaume Spring DO Other Provider Active S tart: December 12, 2024 Dr. Gerson Renae MD Other Provider Active Sta rt: December 12, 2024 Team Status: Active Member Role Status Dates Dr. Daniela Fallon MD Primary Care Provider Active Start: December 13, 2024 Dr. Krzysztof Leal DO Emergency Provider Activ e Start: December 13, 2024 Dr. Tere Price MD Admit Provider Active St art: December 13, 2024 Dr. Tere Price MD Other Provider Active St art: December 13, 2024 Dr. Siva Subramanian MD Other Provider Active Start: December 13, 2024 Dr. Guillaume [place] DO Attending Provider Active Start: December 13, 2024 Dr. Guillaume Spring , Other Provider Active S tart: December 13, 2024 Dr. Gerson Renae MD Other Provider Active Sta rt: December 13, 2024 Team Status: Active Member Role Status Dates Dr. Daniela Fallon MD Primary Care Provider Active Start: December 14, 2024 Dr. Krzysztof Leal DO Emergency Provider Activ e Start: December 14, 2024 Dr. Tere Price MD Admit Provider Active St art: December 14, 2024 Dr. Tere Price MD Other Provider Active St art: December 14, 2024 Dr. Siva Subramanian MD Other Provider Active Start: December 14, 2024 Dr. Guillaume Spring DO Attending Provider Active Start: December 14, 2024 Dr. Guillaume Spring DO Other Provider Active S tart: December 14, 2024 Dr. Gerson Renae MD Other Provider Active Sta rt: December 14, 2024 Team Status: Active Member Role Status Dates Dr. Daniela Fallon MD Primary Care Provider Active Start: December 15, 2024 Dr. Krzysztof Leal DO Emergency Provider Activ e Start: December 15, 2024 Dr. Tere Price MD Admit Provider Active St art: December 15, 2024 Dr. Tere Price MD Other Provider Active St art: December 15, 2024 Dr. Siva Subramanian MD Other Provider Active Start: December 15, 2024 Dr. Guillaume Spring DO Attending Provider Active Start: December 15, 2024 Dr. Guillaume Spring DO Other Provider Active S tart: December 15, 2024 Dr. Gerson Renae MD Other Provider Active Sta rt: December 15, 2024 Team Status: Inactive Member Role Status Dates Dr. Daniela Fallon MD Primary Care Provider Active Start: December 22, 2024 End: December 22, 2024 Dr. Daniela Fallon MD Referring Provider Active Start: December 22, 2024 End: December 22, 2024 VANNESSA Willis Attending Provider Active St art: December 22, 2024 End: December 22, 2024 Team Status: Inactive Member Role Status Dates Dr. Daniela Fallon MD Primary Care Provider Active Start: December 22, 2024 End: December 22, 2024 Dr. Daniela Fallon MD Attending Provider Active Start: December 22, 2024 End: December 22, 2024 Dr. Daniela Fallon MD Referring Provider Active Start: December 22, 2024 End: December 22, 2024 Team Status: Inactive Member Role Status Dates Dr. Daniela Fallon MD Primary Care Provider Active Start: February 06, 2025 End: February 06, 2025 Dr. Daniela Fallon MD Referring Provider Active Start: February 06, 2025 End: February 06, 2025 VANNESSA Willis Attending Provider Active St art: February 06, 2025 End: February 06, 2025 Team Status: Inactive Member Role Status Dates Dr. 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 Daniela Fallon MD Primary Care Balta fox, Attending Provider, Referring Provider Active Team Status: Inactive Member Role Status Dates Dr. Daniela Fallon MD Primary Care Provider, Refer ring Provider Active Guillaume Stockton [employer] INST[employer]ER, [employer] INSTALLER-C Attending Provider Active Treating Plant Operator Relationship Specialty Start Date End Date Daniela Fallon MD [address] [facility] [place] [address] PCP - General 07/12/19 Remi Desai MD [address] [facility] [address] [place] [address] Referring Physician Interventional Cardiology 11/30/23 [place] [address] [facility] [place] [address] Surgeon Cardiothoracic Surgery 11/30/23 Team Status: Inactive Member Role Status Dates Dr. Daniela Fallon MD Primary Care Provider, Refer ring Provider Active Dr. Cordelia Wolf MD Attending Provider Active Team Status: Active Member Role Status Dates Dr. Daniela Fallon MD Primary Care Provider Active Dr. Cordelia Wolf MD Attending Provider Active Team Status: Inactive Member Role Status Dates Dr. Daniela Fallon MD Primary Care Provider, Refer ring Provider Active Dr. Julianna Diaz MD Attending Provider Active Team Status: Inactive Member Role Status Dates Dr. Daniela Fallon MD Primary Care Provider Active Dr. Cordelia Wolf MD Attending Provider, Referring Provider Active Team Status: Active Member Role Status Dates Dr. Daniela Fallon MD Primary Care Provider Active Dr. Julianna Diaz MD Attending Provider, Referrin g Provider Active Team Status: Inactive Member Role Status Dates Dr. Daniela Fallon MD Primary Care Provider Active Dr. Julianna Diaz MD Attending Provider, Referrin g Provider Active Treating Plant Operator Relationship Specialty Start Date End Date Daniela Fallon MD [address] [place] [address] [place] [address] PCP - General 07/12/19 Remi Desai MD [address] [facility] [address] [place] [address] Referring Physician Interventional Cardiology 11/30/23 [place] [address] [facility] [place] [address] Surgeon Cardiothoracic Surgery 11/30/23 Treating Plant Operator Relationship Specialty Start Date End Date Daniela Fallon MD [address] [place] [address] [place] [address] PCP - General 07/12/19 Remi Desai MD [address] [facility] [address] [place] [address] Referring Physician Interventional Cardiology 11/30/23 [place] [address] [place] [address] Surgeon Cardiothoracic Surgery 11/30/23 Treating Plant Operator Relationship Specialty Start Date End Date Daniela Fallon MD [address] [place] [address] [place] [address] PCP - General 07/12/19 Remi Desai MD [address] [facility] [address] [place] [address] Referring Physician Interventional Cardiology 11/30/23 [place] [address] [place] [address] Surgeon Cardiothoracic Surgery 11/30/23 [place] [address] [place] [address] Consulting Physician Hematology and Oncology 02/09/24 Treating Plant Operator Relationship Specialty Start Date End Date Daniela Fallon, MD [address] [facility] [place] [address] PCP - General 07/12/19 Remi Desai MD [address] [facility] [address] [place] [address] Referring Physician Interventional Cardiology 11/30/23 [place] [address] Department [place] [address] Surgeon Cardiothoracic Surgery 11/30/23 [place] [address] [place] [address] Consulting Physician Hematology and Oncology 02/09/24 Treating Plant Operator Relationship Specialty Start Date End Date Daniela Fallon MD [address] [facility] Internal Medicine [facility] [place] [address] PCP - General 07/12/19 Remi Desai MD [address] [facility] [address] [place] [address] Referring Physician Interventional Cardiology 11/30/23 [place] [address] Department [place] [address] Surgeon Cardiothoracic Surgery 11/30/23 [place] [address] [place] [address] Consulting Physician Hematology and Oncology 02/09/24 Treating Plant Operator Relationship Specialty Start Date End Date Daniela Fallon MD [address] [facility] Internal Medicine [facility] [place] [address] PCP - General 07/12/19 Remi Desai MD [address] [facility] [address] [place] [address] Referring Physician Interventional Cardiology 11/30/23 [place] [address] Department [place] [address] Surgeon Cardiothoracic Surgery 11/30/23 [place] [address] [place] [address] Consulting Physician Hematology and Oncology 02/09/24 Treating Plant Operator Relationship Specialty Start Date End Date Daniela Fallon MD [address] [facility] Internal Medicine [facility] [place] [address] PCP - General 07/12/19 Remi Desai MD [address] [facility] [address] [place] [address] Referring Physician Interventional Cardiology 11/30/23 [place] [address] Department [place] [address] Surgeon Cardiothoracic Surgery 11/30/23 [place] [address] [place] [address] Consulting Physician Hematology and Oncology 02/09/24 Treating Plant Operator Relationship Specialty Start Date End Date Daniela Fallon MD [address] [facility] Internal Medicine [facility] [address] PCP - General 07/12/19 Remi Desai MD [address] [facility] [address] [place] [address] Referring Physician Interventional Cardiology 11/30/23 [place] [address] Department [place] [address] Surgeon Cardiothoracic Surgery 11/30/23 [place] [address] [place] [address] Consulting Physician Hematology and Oncology 02/09/24 Treating Plant Operator Relationship Specialty Start Date End Date Daniela Fallon MD [address] [facility] Internal Medicine [facility] [address] PCP - General 07/12/19 Remi Desai MD [address] [facility] [address] [place] [address] Referring Physician Interventional Cardiology 11/30/23 [place] [address] Department [place] [address] Surgeon Cardiothoracic Surgery 11/30/23 [place] [address] [place] [address] Consulting Physician Hematology and Oncology 02/09/24 Treating Plant Operator Relationship Specialty Start Date End Date Daniela Fallon MD [facility] Internal Medicine [facility] [place] [address] PCP - General 07/12/19 Remi Desai MD [address] [facility] [address] [place] [address] Referring Physician Interventional Cardiology 11/30/23 [place] [address] Department [place] [address] Surgeon Cardiothoracic Surgery 11/30/23 [place] [address] [place] [address] Consulting Physician Hematology and Oncology 02/09/24 Treating Plant Operator Relationship Specialty Start Date End Date Daniela Fallon MD [facility] Internal Medicine [facility] [place] [address] PCP - General 07/12/19 Remi Desai MD [address] [facility] [address] [place] [address] Referring Physician Interventional Cardiology 11/30/23 [place] [address] Department [place] [address] Surgeon Cardiothoracic Surgery 11/30/23 [place] [address] [place] [address] Consulting Physician Hematology and Oncology 02/09/24 Treating Plant Operator Relationship Specialty Start Date End Date Daniela Fallon MD [address] [facility] Internal Medicine [place] [address] PCP - General 07/12/19 Remi Desai MD [address] [place] [address] Referring Physician Interventional Cardiology 11/30/23 [place] [address] [place] [address] Surgeon Cardiothoracic Surgery 11/30/23 [place] [address] [place] [address] Consulting Physician Hematology and Oncology 02/09/24 Treating Plant Operator Relationship Specialty Start Date End Date Daniela Fallon MD PCP - General Internal Medicine 05/16/19 Treating Plant Operator Relationship Specialty [place] [address] [place] [address] Internal [place] [address] PCP - General 07/12/19 Remi Desai MD [address] [place] [address] Referring Physician Interventional Cardiology 11/30/23 [place] [address] [place] [address] Surgeon Cardiothoracic Surgery 11/30/23 [place] [address] [place] [address] Consulting Physician Hematology and Oncology 02/09/24 Treating Plant Operator Relationship Specialty Start Date End Date Daniela Fallon MD [address] [place] [address] [place] [address] PCP - General 07/12/19 Remi Desai MD [address] [facility] [address] [place] [address] Referring Physician Interventional Cardiology 11/30/23 [place] [address] [facility] Department [place] [address] Surgeon Cardiothoracic Surgery 11/30/23 [place] [address] [place] [address] Consulting Physician Hematology and Oncology 02/09/24 Treating Plant Operator Relationship Specialty Start Date End Date Daniela Fallon MD [address] [place] [address] [place] [address] PCP - General 07/12/19 08/07/24 [place] [address] [place] [address] [place] [address] PCP - General Internal Medicine 08/08/24 Remi Desai MD [address] [facility] [address] [place] [address] Referring Physician Interventional Cardiology 11/30/23 [place] [address] [place] [address] Surgeon Cardiothoracic Surgery 11/30/23 [place] [address] [place] [address] Consulting Physician Hematology and Oncology 02/09/24 Germán Hurst [address] [place] [address] Referring Physician Case Management 08/08/24 [place] [address] [place] [address] Surgeon Cardiothoracic Surgery 08/08/24 Treating Plant Operator Relationship Specialty Start Date End Date Daniela Fallon MD [address] [facility] [place] [address] PCP - General Internal Medicine 08/08/24 Remi Desai MD [address] [facility] [address] [facility] [place] [address] Referring Physician Interventional Cardiology 11/30/23 [place] [address] [place] [address] Surgeon Cardiothoracic Surgery 11/30/23 [place] [address] [place] [address] Consulting Physician Hematology and Oncology 02/09/24 Germán [place] [address] [place] [address] Referring Physician Case Management 08/08/24 [place] [address] [place] [address] Surgeon Cardiothoracic Surgery 08/08/24 Treating Plant Operator Relationship Specialty Start Date End Date Daniela Fallon MD [address] [facility] [place] [address] PCP - General Internal Medicine 08/08/24 Remi Desai MD [address] [facility] [address] [facility] [place] [address] Referring Physician Interventional Cardiology 11/30/23 [place] [address] [place] [address] Surgeon Cardiothoracic Surgery 11/30/23 [place] [address] [place] [address] Consulting Physician Hematology and Oncology 02/09/24 [place] [place] [address] Referring Physician Case Management 08/08/24 [place] [address] [place] [address] Surgeon Cardiothoracic Surgery 08/08/24 Treating Plant Operator Relationship Specialty Start Date End Date Daniela Fallon MD [address] [facility] [place] [address] PCP - General Internal Medicine 08/08/24 Remi Desai MD [address] [facility] [address] [place] [address] Referring Physician Interventional Cardiology 11/30/23 [place] [address] [place] [address] Surgeon Cardiothoracic Surgery 11/30/23 [place] [address] [place] [address] Consulting Physician Hematology and Oncology 02/09/24 Germán Hurst [address] [place] [address] Referring Physician Case Management 08/08/24 [place] [address] Department [place] [address] Surgeon Cardiothoracic Surgery 08/08/24 Treating Plant Operator Relationship Specialty Start Date End Date Daniela Fallon MD [address] [facility] [place] [address] PCP - General Internal Medicine 08/08/24 Remi Desai MD [address] [facility] [address] [place] [address] Referring Physician Interventional Cardiology 11/30/23 [place] [address] Department [place] [address] Surgeon Cardiothoracic Surgery 11/30/23 [place] [address] [place] [address] Consulting Physician Hematology and Oncology 02/09/24 Germán Hurst [address] [place] [address] Referring Physician Case Management 08/08/24 [place] [address] [place] [address] Surgeon Cardiothoracic Surgery 08/08/24 Treating Plant Operator Relationship Specialty Start Date End Date Daniela Fallon MD [address] [place] [address] [place] [address] PCP - General 07/12/19 Remi Desai MD [address] [facility] [address] [facility] [place] [address] Referring Physician Interventional Cardiology 11/30/23 [place] [address] [place] [address] Surgeon Cardiothoracic Surgery 11/30/23 [place] [address] [place] [address] Consulting Physician Hematology and Oncology 02/09/24 Treating Plant Operator Relationship Specialty Start Date End Date Daniela Fallon MD [facility] Internal Medicine [facility] [address] PCP - General 07/12/19 Remi Desai MD [address] [place] [address] Referring Physician Interventional Cardiology 11/30/23 [place] [address] [place] [address] Surgeon Cardiothoracic Surgery 11/30/23 [place] [address] [place] [address] Consulting Physician Hematology and Oncology 02/09/24 Treating Plant Operator Relationship Specialty Start Date End Date Daniela Flalon MD [facility] [place] [address] PCP - General Internal Medicine 08/08/24 Remi Desai MD [address] [place] [address] Referring Physician Interventional Cardiology 11/30/23 [place] [address] [place] [address] Surgeon Cardiothoracic Surgery 11/30/23 [place] [address] [place] [address] Consulting Physician Hematology and Oncology 02/09/24 Germán Hurst [address] [place] [address] Referring Physician Case Management 08/08/24 [place] [address] [facility] Department [place] [address] Surgeon Cardiothoracic Surgery 08/08/24 Treating Plant Operator Relationship Specialty Start Date End Date Daniela Fallon MD [address] [place] [address] PCP - General 07/12/19 Remi Desai MD [address] [facility] [address] [facility] [place] [address] Referring Physician Interventional Cardiology 11/30/23 [place] [address] [facility] [place] [address] Surgeon Cardiothoracic Surgery 11/30/23 [place] [address] [place] [address] Consulting Physician Hematology and Oncology 02/09/24 Treating Plant Operator Relationship Specialty Start Date End Date Daniela Fallon MD [address] [place] [address] Internal [place], [place] [address] PCP - General 07/12/19 Remi Desai MD [address] [facility] [address] [place] [address] Referring Physician Interventional Cardiology 11/30/23 [place] [address] Department [place] [address] Surgeon Cardiothoracic Surgery 11/30/23 [place] [address] [place] [address] Consulting Physician Hematology and Oncology 02/09/24 Treating Plant Operator Relationship Specialty Start Date End Date Daniela Fallon MD [address] [place] [address] PCP - General 07/12/19 Remi Desai MD [address] [facility] [address] [place] [address] Referring Physician Interventional Cardiology 11/30/23 [place] [address] [place] [address] Surgeon Cardiothoracic Surgery 11/30/23 [place] [address] [place] [address] Consulting Physician Hematology and Oncology 02/09/24 Treating Plant Operator Relationship Specialty Start Date End Date Daniela Fallon MD [address] [place] [address] Internal [place], [place] [address] PCP - General 07/12/19 Remi Desai MD [address] [facility] [address] [place] [address] Referring Physician Interventional Cardiology 11/30/23 [place] [address] Department [place] [address] Surgeon Cardiothoracic Surgery 11/30/23 [place] [address] [place] [address] Consulting Physician Hematology and Oncology 02/09/24 Treating Plant Operator Relationship Specialty Start Date End Date Daniela Fallon MD [address] [place] [address] [place] [address] PCP - General 07/12/19 Remi Desai MD [address] [facility] [address] [place] [address] Referring Physician Interventional Cardiology 11/30/23 [place] [address] [place] [address] Surgeon Cardiothoracic Surgery 11/30/23 [place] [address] [place] [address] Consulting Physician Hematology and Oncology 02/09/24 Treating Plant Operator Relationship Specialty Start [place] [address] [place] [address] [facility] [place] [address] PCP - General 07/12/19 Remi Desai MD [address] [facility] [address] [place] [address] Referring Physician Interventional Cardiology 11/30/23 [place] [address] Department [place] [address] Surgeon Cardiothoracic Surgery 11/30/23 [place] [address] [place] [address] Consulting Physician Hematology and Oncology 02/09/24 Treating Plant Operator Relationship Specialty Start Date End Date Daniela Fallon MD [address] [place] [address] [place] [address] PCP - General 07/12/19 Remi Desai MD [address] [facility] [address] [place] [address] Referring Physician Interventional Cardiology 11/30/23 [place] [address] [place] [address] Surgeon Cardiothoracic Surgery 11/30/23 [place] [address] [place] [address] Consulting Physician Hematology and Oncology 02/09/24 Treating Plant Operator Relationship Specialty [place] [address] [place] [address] [place] [address] PCP - General 07/12/19 Remi Desai MD [address] [facility] [address] [place] [address] Referring Physician Interventional Cardiology 11/30/23 [place] [address] Department [place] [address] Surgeon Cardiothoracic Surgery 11/30/23 [place] [address] [place] [address] Consulting Physician Hematology and Oncology 02/09/24 Treating Plant Operator Relationship Specialty Start Date End Date Daniela Fallon MD [address] [place] [address] [place] [address] PCP - General 07/12/19 Remi Desai MD [address] [facility] [address] [place] [address] Referring Physician Interventional Cardiology 11/30/23 [place] [address] [place] [address] Surgeon Cardiothoracic Surgery 11/30/23 [place] [address] [place] [address] Consulting Physician Hematology and Oncology 02/09/24 Treating Plant Operator Relationship Specialty Start Date End Date Daniela Fallon MD [address] [place] [address] Internal [place], [place] [address] PCP - General 07/12/19 Remi Desai MD [address] [facility] [address] [place] [address] Referring Physician Interventional Cardiology 11/30/23 [place] [address] Department [place] [address] Surgeon Cardiothoracic Surgery 11/30/23 [place] [address] [place] [address] Consulting Physician Hematology and Oncology 02/09/24 Treating Plant Operator Relationship Specialty Start Date End Date Daniela Fallon MD [address] [place] [address] [place] [address] PCP - General Internal Medicine 08/08/24 Remi Desai MD [address] [facility] [address] [place] [address] Referring Physician Interventional Cardiology 11/30/23 [place] [address] Department [place] [address] Surgeon Cardiothoracic Surgery 11/30/23 [place] [address] [place] [address] Consulting Physician Hematology and Oncology 02/09/24 Germ[address] Hurst [address] [place] [address] Referring Physician Case Management 08/08/24 [place] [address] Department [place] [address] Surgeon Cardiothoracic Surgery 08/08/24 Treating Plant Operator Relationship Specialty Start Date End Date Daniela Fallon MD [address] [facility] [place] [address] PCP - General Internal Medicine 08/08/24 Remi Desai MD [address] [facility] [address] [facility] [place] [address] Referring Physician Interventional Cardiology 11/30/23 [place] [address] Department [place] [address] Surgeon Cardiothoracic Surgery 11/30/23 [place] [address] [place] [address] Consulting Physician Hematology and Oncology 02/09/24 Germán Hurst [address] [place] [address] Referring Physician Case Management 08/08/24 [place] [address] Department [place] [address] Surgeon Cardiothoracic Surgery 08/08/24 Treating Plant Operator Relationship Specialty Start Date End Date Daniela Fallon MD [address] [facility] [place] [address] PCP - General Internal Medicine 08/08/24 Remi Desai MD [address] [facility] [address] [place] [address] Referring Physician Interventional Cardiology 11/30/23 [place] [address] [place] [address] Surgeon Cardiothoracic Surgery 11/30/23 [place] [address] [place] [address] Consulting Physician Hematology and Oncology 02/09/24 Germán Hurst [address] [place] [address] Referring Physician Case Management 08/08/24 [place] [address] [place] [address] Surgeon Cardiothoracic Surgery 08/08/24 Treating Plant Operator Relationship Specialty Start Date End Date Daniela Fallon MD [address] [place] [address] Internal Medicine [facility] [address] PCP - General Internal Medicine 08/08/24 Remi Desai MD [address] [facility] [address] [place] [address] Referring Physician Interventional Cardiology 11/30/23 [place] [address] Department [place] [address] Surgeon Cardiothoracic Surgery 11/30/23 [place] [address] [place] [address] Consulting Physician Hematology and Oncology 02/09/24 Germán Hurst [address] [place] [address] Referring Physician Case Management 08/08/24 [place] [address] [facility] [place] [address] Surgeon Cardiothoracic Surgery 08/08/24 Team Status: Inactive Member Role Status Dates Dr. Daniela Fallon MD Primary Care Provider Active Start: September 24, 2024 End: September 24, 2024 Dr. Jesus Luu DO Attending Provider Active Start: September 24, 2024 End: September 24, 2024 Dr. Jesus Luu DO Emergency Provider Active Start: September 24, 2024 End: September 24, 2024 Treating Plant Operator Relationship Specialty Start Date End Date Daniela Fallon MD [address] [place] [address] [place] [address] PCP - General Internal Medicine 08/08/24 Remi Desai MD [address] [facility] [address] [facility] [place] [address] Referring Physician Interventional Cardiology 11/30/23 [place] [address] [facility] [place] [address] Surgeon Cardiothoracic Surgery 11/30/23 [place] [address] [place] [address] Consulting Physician Hematology and Oncology 02/09/24 [address] [place] [address] Referring Physician Case Management 08/08/24 [place] [address] [facility] Department [place] [address] Surgeon Cardiothoracic Surgery 08/08/24 Treating Plant Operator Relationship Specialty Start Date End Date Daniela Fallon MD [address] [place] [address] [place] [address] PCP - General Internal Medicine 08/08/24 Remi Desai MD [address] [facility] [address] [facility] [place] [address] Referring Physician Interventional Cardiology 11/30/23 [place] [address] [facility] Department [place] [address] Surgeon Cardiothoracic Surgery 11/30/23 [place] [address] [place] [address] Consulting Physician Hematology and Oncology 02/09/24 [address] [place] [address] Referring Physician Case Management 08/08/24 [place] [address] Department [place] [address] Surgeon Cardiothoracic Surgery 08/08/24 Treating Plant Operator Relationship Specialty Start Date End Date Daniela Fallon MD [address] [facility] Internal Medicine [facility] [place] [address] PCP - General Internal Medicine 08/08/24 Remi Desai MD [address] [facility] [address] [facility] Heart & [place] [address] Referring Physician Interventional Cardiology 11/30/23 [place] [address] [place] [address] Surgeon Cardiothoracic Surgery 11/30/23 [place] [address] [place] [address] Consulting Physician Hematology and Oncology 02/09/24 Germán Hurst [address] [place] [address] Referring Physician Case Management 08/08/24 [place] [address] [place] [address] Surgeon Cardiothoracic Surgery 08/08/24 Team Status: Inactive Member Role Status Dates Dr. Daniela Fallon MD Primary Care Provider Active Start: April 05, 2025 End: April 05, 2025 Dr. Daniela Fallon MD Referring Provider Active Start: April 05, 2025 End: April 05, 2025 GEORGIANA Morgan Attending Provider Active Start: April 05, 2025 End: April 05, 2025 Team Status: Active Member Role/Relationship Status Dates Dr. Daniela Fallon MD Primary Care Provider Active Team Status: Inactive Member Role/Relationship Status Dates Dr. Daniela Fallon MD Primary Care Provider Active Start: December 22, 2024 End: December 22, 2024 Dr. Daniela Fallon MD Referring Provider Active Start: December 22, 2024 End: December 22, 2024 VANNESSA Willis Attending Provider Active St art: December 22, 2024 End: December 22, 2024 Team Status: Inactive Member Role/Relationship Status Dates Dr. Daniela Fallon MD Primary Care Provider Active Start: December 22, 2024 End: December 22, 2024 Dr. Daniela Fallon MD Attending Provider Active Start: December 22, 2024 End: December 22, 2024 Dr. Daniela Fallon MD Referring Provider Active Start: December 22, 2024 End: December 22, 2024 Team Status: Inactive Member Role/Relationship Status Dates Dr. Daniela Fallon MD Primary Care Provider Active Start: February 06, 2025 End: February 06, 2025 Dr. Daniela Fallon MD Referring Provider Active Start: February 06, 2025 End: February 06, 2025 VANNESSA Willis Attending Provider Active St art: February 06, 2025 End: February 06, 2025 Team Status: Inactive Member Role/Relationship Status Dates Dr. Daniela Fallon MD Primary Care Provider Active Start: February 06, 2025 End: February 06, 2025 VANNESSA Willis Attending Provider Active St art: February 06, 2025 End: February 06, 2025 VANNESSA Willis Referring Provider Active St art: February 06, 2025 End: February 06, 2025 Team Status: Inactive Member Role/Relationship Status Dates Dr. Daniela Fallon MD Primary Care Provider Active Start: April 05, 2025 End: April 05, 2025 Dr. Daniela Fallon MD Referring Provider Active Start: April 05, 2025 End: April 05, 2025 GEORGIANA Morgan Attending Provider Active Start: April 05, 2025 End: April 05, 2025 Team Status: Inactive Member Role/Relationship Status Dates Dr. Daniela Fallon MD Primary Care Provider Active Start: April 18, 2025 End: April 18, 2025 Dr. Benito Jefferson MD Referring Provider Active Sta rt: April 18, 2025 End: April 18, 2025 Dr. Benito Jefferson MD Emergency Provider Active Sta rt: April 18, 2025 End: April 18, 2025 Treating Plant Operator Relationship Specialty Start Date End Date Daniela Fallon MD [address] [facility] [place] [address] PCP - General Internal Medicine 08/08/24 Remi Desai MD [address] [facility] [address] [facility] Heart & [place] [address] Referring Physician Interventional Cardiology 11/30/23 [place] [address] [facility] Department [place] [address] Surgeon Cardiothoracic Surgery 11/30/23 [place] [address] [place] [address] Consulting Physician Hematology and Oncology 02/09/24 Germán Hurst [address] [place] [address] Referring Physician Case Management 08/08/24 [place] [address] Department [place] [address] Surgeon Cardiothoracic Surgery 08/08/24 Treating Plant Operator Relationship Specialty Start Date End Date Daniela Fallon MD [address] [facility] Internal [place] [address] PCP - General Internal Medicine 08/08/24 Remi Desai MD [address] [facility] [address] [facility] [place] [address] Referring Physician Interventional Cardiology 11/30/23 [place] [address] Department [place] [address] Surgeon Cardiothoracic Surgery 11/30/23 [place] [address] [place] [address] Consulting Physician Hematology and Oncology 02/09/24 Germán Hurst [address] [place] [address] Referring Physician Case Management 08/08/24 [place] [address] Department [place] [address] Surgeon Cardiothoracic Surgery 08/08/24 Treating Plant Operator Relationship Specialty Start Date End Date Daniela Fallon MD [address] [facility] Internal Medicine [place] [address] PCP - General Internal Medicine 08/08/24 Remi Desai MD [address] [facility] [address] [place] [address] Referring Physician Interventional Cardiology 11/30/23 [place] [address] [place] [address] Surgeon Cardiothoracic Surgery 11/30/23 [place] [address] [place] [address] Consulting Physician Hematology and Oncology 02/09/24 Germán Hurst [address] [place] [address] Referring Physician Case Management 08/08/24 [place] [address] [place] [address] Surgeon Cardiothoracic Surgery 08/08/24 Treating Plant Operator Relationship Specialty Start Date End Date Daniela Fallon MD [address] [place] [address] [place] [address] PCP - General Internal Medicine 08/08/24 Remi Desai MD [address] [facility] [address] [place] [address] Referring Physician Interventional Cardiology 11/30/23 [place] [address] [place] [address] Surgeon Cardiothoracic Surgery 11/30/23 [place] [address] [place] [address] Consulting Physician Hematology and Oncology 02/09/24 Germán Hurst [address] [place] [address] Referring Physician Case Management 08/08/24 [place] [address] [facility] Department [place] [address] Surgeon Cardiothoracic Surgery 08/08/24 Team Status: Active Member Role/Relationship Status Dates Dr. Daniela Fallon MD Primary care physician Activ e Team Status: Inactive Member Role/Relationship Status Dates Dr. Daniela Fallon MD Primary care physician Activ e Start: April 05, 2025 End: April 05, 2025 Dr. Daniela Fallon MD Referring Provider Active Start: April 05, 2025 End: April 05, 2025 Claudia Rubio NP-C Attending physician Active Start: April 05, 2025 End: April 05, 2025 Team Status: Inactive Member Role/Relationship Status Dates Dr. Daniela Fallon MD Primary care physician Activ e Start: April 18, 2025 End: April 18, 2025 Dr. Benito Jefferson MD Attending physician Active St art: April 18, 2025 End: April 18, 2025 Dr. Benito Jefferson MD Referring Provider Active Sta rt: April 18, 2025 End: April 18, 2025 Dr. Benito Jefferson MD Emergency Department Physician Acti ve Start: April 18, 2025 End: April 18, 2025 Team Status: Inactive Member Role/Relationship Status Dates Dr. Daniela Fallon MD Primary care physician Activ e Start: July 13, 2025 End: July 13, 2025 Dr. Daniela Fallon MD Attending physician Active Start: July 13, 2025 End: July 13, 2025 Dr. Daniela Fallon MD Referring Provider Active Start: July 13, 2025 End: July 13, 2025 Treating Plant Operator Relationship Specialty Start Date End Date Daniela Fallon MD [address] [facility] Internal Medicine [facility] [place] [address] PCP - General Internal Medicine 08/08/24 Remi Desai MD [address] [facility] [address] [facility] [place] [address] Referring Physician Interventional Cardiology 11/30/23 [place] [address] Department [place] [address] Surgeon Cardiothoracic Surgery 11/30/23 [place] [address] [place] [address] Consulting Physician Hematology and Oncology 02/09/24 Germán Hurst [address] [place] [address] Referring Physician Case Management 08/08/24 [place] [address] Department [place] [address] Surgeon Cardiothoracic Surgery 08/08/24 Team Status: Inactive Member Role/Relationship Status Dates Dr. Daniela Fallon MD Primary care physician Activ e Start: July 13, 2025 End: July 13, 2025 Dr. Daniela Fallon MD Attending physician Active Start: July 13, 2025 End: July 13, 2025 Dr. Dnaiela Fallon MD Referring Provider Active Start: July 13, 2025 End: July 13, 2025 Team Status: Inactive Member Role/Relationship Status Dates Dr. Daniela Fallon MD Primary care physician Activ e Start: August 07, 2025 End: August 07, 2025 Dr. Daniela Fallon MD Referring Provider Active Start: August 07, 2025 End: August 07, 2025 GEORGIANA Morgan Attending physician Active Start: August 07, 2025 End: August 07, 2025 INFORMATION SOURCE (unrecogn ized section and content) DATE CREATED AUTHOR 11/13/2022 [facility] DATE CREATED AUTHOR AUTHOR'S ORGANIZ ATION 03/21/2024 [facility] DATE CREATED AUTHOR AUTHOR'S ORGANIZ ATION 07/31/2024 [facility] DATE CREATED AUTHOR AUTHOR'S ORGANIZ ATION 08/19/2024 [facility] DATE CREATED AUTHOR AUTHOR'S ORGANIZ ATION 06/25/2025 [facility] DATE CREATED AUTHOR AUTHOR'S ORGANIZ ATION 07/22/2025 [facility] DATE CREATED AUTHOR AUTHOR'S ORGANIZ ATION 08/11/2025 [facility] DATE CREATED AUTHOR AUTHOR'S ORGANIZ ATION 08/26/2025 [facility] Scheduled Active and Recently Administ ered Medications (unrecognized section and content) Medication Order 08/07/2024 08/08/2024 08/09/2024 acetaminophen (Tylenol) tablet 650 mg 650 mg, oral, Every 6 hours, First dose (after last modification) on Wed08/04/24 at 2100, If ordered PRN for pain, nurse is permitted to administer this medication for higher pain scores based on patient preference? Yes 350 (Given - Provider: Ghislaine Petersen RN)919 (Given - Provider: Cyndy Chavez, GABRIEL)144 (Given - Provider: Cyndy Chavez, GABRIEL)2005 (Given - Provider: Ghislaine Petersen RN) 324 (Given - Provider: Ghislaine Petersen RN)0845 (Given - Provider: Soco Lima RN)1543 (Given - Provider: Soco Lima RN)2024 (Given - Provider: Luther Plata RN) 0103 (Given - Provider: Luther Plata RN)0900 (Given - Provider: Bharat Jaquez, GABRIEL)1500 (Due)2100 (Due) aspirin chewable tablet 81 mg 81 mg, oral, Daily, First dose on Wed08/01/24 at 1500, Hold for platelets less than 50,000 0921 (Given - Provider: Cyndy Chavez RN) 0845 (Given - Provider: Soco Lima RN) 0900 (Given - Provider: Bharat Jaquez RN) atorvastatin (Lipitor) tablet 80 mg 80 mg, oral, Nightly, First dose on Wed08/02/24 at 2100 2005 (Given - Provider: Ghislaine Petersen RN) 2024 (Given - Provider: Luthre Plata RN) 2100 (Due) barium sulfate (Varibar [place]) 40 % (w/v) suspension 10 mL (COMPLETED) 10 mL, oral, Once in imaging, Starting on Wed08/08/24 at 0830, For 1 dose 0838 (Given - Provider: Phoenix Martinez) barium sulfate (Varibar Pudding) 40 % (w/v), 30% (w/w) oral paste 30 mL (COMPLETED) 30 mL, oral, Once in imaging, Starting on Wed08/08/24 at 0830, For 1 dose, Administer with oral syringe or spoon. Max cumulative dose of 30 mL. Discard any unused product 21 days after tube opened. 0838 (Given - Provider: [place] Martinez) barium sulfate (Varibar THIN Liquid 81%-Varibar THIN Honey 40%) 1:1 mixture (COMPLETED) 30 mL, oral, Once in imaging, Starting on Wed08/08/24 at 0830, For 1 dose 0837 (Given - Provider: [place] Martinez) furosemide (Lasix) tablet 20 mg 20 mg, oral, Daily, First dose on 10/22/24 at 1530 1543 (Given - Provider: Soco Lima RN) 0900 (Given - Provider: Bharat Jaquez, RN) heparin (porcine) injection 5,000 Units 5,000 Units, subcutaneous, Every 8 hours, First dose on Wed08/04/24 at 1100 0400 (Given - Provider: Ghislaine Petersen RN)1239 (Given - Provider: Cyndy Chavez RN)2006 (Given - Provider: Ghislaine Petersen RN) 0325 (Given - Provider: Ghislaine Petersen RN)1125 (Given - Provider: Soco Lima RN)1846 (Given - Provider: Soco Lima RN) 0140 (Given - Provider: Luther Plata RN)1100 (Due)1900 (Due) iron polysaccharides (Nu-Iron,Niferex) capsule 150 mg 150 mg, oral, Daily, First dose on Wed08/07/24 at 1330 1437 (Given - Provider: Cyndy Chavez RN) 0844 (Given - Provider: Soco Lima RN) 0900 (Given - Provider: Bharat Jaquez RN) lidocaine 4 % patch 2 patch 2 patch, transdermal, Administer over 12 Hours, Daily, First dose on 08/05/24 at 1900, Apply to back. Patch will remain on for 12 hours, then removed for [address] patch directly over any surgical incisions or wounds. 0924 (Medication Applied - Provider: Cyndy Chavez RN)2130 (Medication Removed - Provider: Ghislaine Petersen RN) 0851 (Not Given - Provider: Soco Lima RN - Reason: Patient/family refused) 0912 (Not Given - Provider: Bharat Jaquez, GABRIEL - Reason: Patient/family refused) lisinopril tablet 2.5 mg 2.5 mg, oral, Daily, First dose on 08/05/24 at 0930 0921 (Given - Provider: Cyndy Chavez RN) 0844 (Given - Provider: Soco Lima RN) 0900 (Given - Provider: Bharat Jaquez, GABRIEL) melatonin tablet 10 mg 10 mg, oral, Nightly, First dose (after last modification) on Wed08/04/24 at 2100 2005 (Given - Provider: Ghislaine Petersen RN) 2023 (Given - Provider: Luther Plata RN) 2099 (Due) metoprolol tartrate (Lopressor) tablet 50 mg 50 mg, oral, 2 times daily, First dose (after last modification) on Wed08/05/24 at 2100, Hold for HR < 50 or SBP < 100 0933 (Given - Provider: Cyndy Chavez RN)2005 (Given - Provider: Ghislaine Petersen RN) 0844 (Given - Provider: Soco Lima RN)2023 (Given - Provider: Luther Plata RN) 09 (Given - Provider: Bharat Jaquez RN)2099 (Due) multivitamin with minerals 1 tablet 1 tablet, oral, Daily, First dose on Wed08/07/24 at 1330 1437 (Given - Provider: Cyndy Chavez RN) 0845 (Given - Provider: Soco Lima RN) 0900 (Given - Provider: Bharat Jaquez RN) pantoprazole (ProtoNix) EC tablet 40 mg(Linked Group 1) 40 mg, oral, Daily before breakfast, First dose on Wed08/02/24 at 0700, Do not crush, chew, or split. 0925 (See Alternative - Provider: Cyndy Chavez RN) 0844 (Given - Provider: Soco Lima RN) 0907 (Given - Provider: Bharat Jaquez RN) perflutren lipid microspheres (Definity) injection 1 mL of dilution (COMPLETED) 1 mL of dilution, intravenous, Once in imaging, Starting on Wed08/07/24 at 1436, For 1 dose, CV Medications, Contrast - for use by imaging provider only. Prior to administration, Definity product must be activated. First, bring vial to room temperature. Then, shake vial for 45 seconds. Do not use if the 45 second activation cycle has not been completed. Following activation, the product will appear as a milky white suspension and may be used immediately. If not used within 5 minutes of activation, re-suspend by inverting and shaking the vial for 10 seconds. Discard unused product. Administration: Dilute 1.3 mL of activated DEFINITY with 8.7 mL of normal saline in a 10 mL syringe. Inject 0.5 mL of diluted DEFINITY when notified the images/film are unclear to enhance view of Left Ventricular borders. Repeat 0.5 mL of DEFINITY until clear images are obtained, not to exceed 10 mLs. Once images are obtained or limit of medication is reached, flush line with 10 mL of Normal Saline. 1436 (Given - Provider: Cyndy Chavez RN) polyethylene glycol (Glycolax, Miralax) packet 17 g 17 g, oral, 2 times daily, First dose on Wed08/01/24 at 2100, Bowel Regimen - for prevention of constipation. 0924 (Not Given - Provider: Cyndy Chavez RN - Reason: Patient/family refused)2004 (Given - Provider: Ghislaine Petersen RN) 0850 (Not Given - Provider: Soco Lima RN - Reason: Patient/family refused)2035 (Not Given - Provider: Luther Plata RN - Reason: Patient/family refused) 09 (Not Given - Provider: Bharat Jaquez RN - Reason: Patient/family refused)2100 (Due) sennosides-docusate sodium (Tamera-Colace) 8.6-50 mg per tablet 2 tablet 2 tablet, oral, 2 times daily, First dose on Wed08/04/24 at 0900 0921 (Given - Provider: Cyndy Chavez RN)2004 (Given - Provider: Ghislaine Petersen RN) 0850 (Not Given - Provider: Soco Lima RN - Reason: Patient/family refused)2036 (Not Given - Provider: Luther Plata RN - Reason: Patient/family refused) 0907 (Not Given - Provider: Bharat Jaquez RN - Reason: Patient/family refused)2100 (Due) sertraline (Zoloft) tablet 100 mg 100 mg, oral, Daily, First dose on Wed08/02/24 at 0900 0923 (Given - Provider: Cyndy Chavez RN) 0844 (Given - Provider: Soco Mirkovic, RN) 0900 (Given - Provider: Bharat Jaquez RN) PRN Medication Order 08/07/2024 08/08/2024 08/09/2024 diclofenac sodium (Voltaren) 1 % gel 4 g 4 g, Topical, 4 times daily PRN, pain mild (1-3), first line, Starting on Wed08/07/24 at 1659, Apply to neck/ shoulders 2208 (Given - Provider: Ghislaine Petersen RN) 0325 (Given - Provider: Ghislaine Petersen RN)0854 (Given - Provider: Soco Lima RN)2025 (Given - Provider: Luther Plata RN) naloxone (Narcan) injection 0.2 mg 0.2 mg, intravenous, Every 5 min PRN, respiratory depression, Starting on Wed08/01/24 at 1442, If respiratory rate is less than 8 breaths/minute or patient is difficult to arouse stop any narcotics and contact physician. Administer slow IV push. Repeat as ordered until patient's respiratory rate is greater than 12 breaths/minute. ondansetron (Zofran) injection 4 mg(Linked Group 2) 4 mg, intravenous, Every 8 hours PRN, nausea/vomiting, first line, Starting on Wed08/01/24 at 1442, 1st Line. Give IV if patient is unable to take orally. If inadequate response within 60 minutes, proceed to next-line agent for same PRN reason or contact provider if no further options ordered. When administering via IV Push, administer over 3-5 minutes. oxyCODONE (Roxicodone) immediate release tablet 5 mg 5 mg, oral, Every 6 hours PRN, pain severe (7-10), first line, Starting on Wed08/02/24 at 0951, If ordered PRN for pain, nurse is permitted to administer this medication for higher pain scores based on patient preference? Yes 0448 (Given - Provider: Ghislaine Petersen RN)1051 (Given - Provider: Cyndy Chavez RN)1652 (Given - Provider: Cyndy Chavez RN)2256 (Given - Provider: Ghislaine Petersen RN) 0508 (Given - Provider: Ghislaine Petersen RN)1123 (Not Given - Provider: Soco Lima RN - Reason: Patient/family refused)1125 (Given - Provider: Soco Lima RN)1852 (Given - Provider: Soco Lima RN) 0102 (Given - Provider: Luther Plata RN) oxygen (O2) therapy inhalation, Continuous PRN - O2/gases, other, Starting on Wed08/03/24 at 2102, Device: High Flow Nasal Cannula (HFNC), [facility]: Bubbler/LPM Flow only, Rate in liters per minute: Other, Custom Value: [id number], Keep O2 Sat Above: 92% Linked Groups Order Group 1: pantoprazole (ProtoNix) EC tablet 40 mgJump to med 40 mg, oral, Daily before breakfast, First dose on Wed08/02/24 at 0700, Do not crush, chew, or split. Or pantoprazole (ProtoNix) injection 40 mg (CANCELED) 40 mg, intravenous, Administer over 2 Minutes, Daily before breakfast, First dose on Wed08/02/24 at 0700, Recovery & On Unit, Give if unable to take by mouth. Group 2: ondansetron (Zofran) tablet 4 mg (CANCELED) 4 mg, oral, Every 8 hours PRN, nausea/vomiting, first line, Starting on Wed08/01/24 at 1442, Recovery & On Unit, 1st Line. Use oral route first, if possible. If inadequate response within 60 minutes, proceed to next-line agent for same PRN reason or contact provider if no further options ordered. Or ondansetron (Zofran) injection 4 mgJump to med 4 mg, intravenous, Every 8 hours PRN, nausea/vomiting, first line, Starting on Wed08/01/24 at 1442, 1st Line. Give IV if patient is unable to take orally. If inadequate response within 60 minutes, proceed to next-line agent for same PRN reason or contact provider if no further options ordered. When administering via IV Push, administer over 3-5 minutes. Scheduled Medication Order 04/28/2024 04/29/2024 04/30/2024 morphine injection 4 mg (COMPLETED) 4 mg, intravenous, Once, On Wed04/30/24 at 1405, For 1 dose 1452 (Given - Provid er: Jacqueline Tineo RN) ondansetron (Zofran) injection 4 mg (COMPLETED) 4 mg, intravenous, Once, On 04/30/24 at 1405, For 1 dose, When administering via IV Push, administer over 3-5 minutes. 1452 (Given - Provid er: Jacqueline Tineo RN) orphenadrine (Norflex) injection 30 mg (COMPLETED) 30 mg, intravenous, Once, On 04/30/24 at 1845, For 1 dose 1918 (Given - Provid er: Barbie Moore RN) FOR RECORDS PERTAINING TO PATIENTS WHO ARE [...] BE BASED ON THE PRIMARY CLINICAL RECORDS. [employer] [facility]. provides no warranty or guarantee of the accuracy or completeness of information in this document.
--- OUTSIDE RECORDS SUMMARY | 2025-08-27 20:43 | XMS RPT_ITS | CCD ---
Author Organization [facility] Care Team Providers Care 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 Name Role Phone DANIELA FALLON MD Primary Care Physician ([phone]) Dr. Daniela Fallon Primary Care Provider 1([phone]) Dr. Daniela Fallon Attending Provider [phone])2 Dr. Daniela Fallon Referring Provider [phone])2 Dr. Dnaiela Fallon Primary Care Provider 1(33 0) Dr. Daniela Fallon Attending Provider 1(330)2 Dr. Daniela aFllon Referring Provider 1(330)2 Dr. Daniela Fallon Primary Care Provider 1(33 0) Dr. Daniela Fallon Attending Provider 1(330)2 Dr. Daniela Fallon Referring Provider 1(330)2 Kath RN OFFICE, RN OFFICE-C Guillaume Attending Provider 1(330) Daniela Fallon MD Primary Care Provider 1([phone]) DANIELA FALLON Primary Care Unavailable AUSTIN HALL Referring Unavailable DANIELA FALLON Primary Care Unavailable Dr. Daniela Fallon Primary Care Provider 1(33 0) Dr. Daniela Fallon Referring Provider 1(330)2 Kath RN OFFICE, RN OFFICE-C Guillaume Attending Provider 1(330) Dr. Daniela Fallon Attending Provider 1(330)2 Thai Appiah Unavailable Unavailable Dr. Daniela Fallno Primary Care Provider [phone] Leeanne, Dr. Nunez Attending Provider 1(330)2 Leeanne, Dr. Nunez Referring Provider 1(330)2 Leeanne, Dr. Nunez Primary Care Provider 1(33 0) Dr. Daniela Fallon Attending Provider [phone] Leeanne, Dr. Nunez Referring Provider [phone])2 Daniela Fallon MD Primary Care Prov ider Jorge MURILLO, Jeffrey Lipscomb Unavailable Ruel Lozano MD Unavailable Leeanne, Dr. Nunez Primary Care Provider 1(33 0) Leeanne, Dr. Nunez Attending Provider [phone])2 Leeanne, Dr. Nunez [facility]erring [phone][facility] Dr. Julianna Diaz Attending Provider Marcelo Davey MD Unavailable ROBBIE TURNER MD, DR SHERMAN Attending DANIELA Delaney MD Primary Care Unavailab Nghia MURILLO, JEFFREY Ibrahim Attending Unavailable DANIELA FALLON MD Primary Care Unavailab elma VÁSQUEZ MD, SURESH Consulting Unavailable JUAN F MARCOS MD Attending Unavailable DANIELA FALLON MD Primary Care Unavailab VANESSA Estes MD UnavailDR LANE Garcia MD Attending DANIELA Delaney MD Primary Care Unavailab JEFFREY Agrawal MD Attending Unavailable DANIELA FALLON MD Primary Care Unavailab RUEL Contreras MD Attending Unavailable DANIELA FALLON MD Primary Care Unavailab CAYDEN Piper Attending Unavailable OLEGHE MD, EFEWONGBE B Primary Care Unavailab JEFFREY Agrawal MD Attending Unavailable LEEANNE MURILLO, DANIELA B Primary Care Unavailab elma Fallon MD, Daniela Shields Primary Care Provider MARCELO DAVEY Referring Unavailable OLEGHE, EFEWONGBE KRZYSZTOF Primary Care Unav ailable ALONDRA HAYES Referring Unavailable OLEGHE, EFEWONGBE KRZYSZTOF Primary Care Unav ailable Leeanne MURILLO, Efvicki Krzysztof Primary Care Prov ider Jeffrey Desai MD Unavailable Ruel Lozano MD Unavailable Marcelo Davey MD Unavailable Germán Hurst Unavailable Leeanne MURILLO, Daniela Gallowaydicta Primary Care Prov ider Ruel Lozano MD Unavailable Germán Hurst Unavailable Leeanne MURILLO, Daniela Gallowaydicta Primary Care Prov ider Ruel Lozano MD Unavailable Leeanne MURILLO, Daniela Gallowaydicta Primary Care Prov ider Ruel Lozano MD Unavailable Marcelo Davey MD Unavailable [phone] Leeanne MURILLO, Daniela Gallowaydicta Primary Care Prov ider Ruel Lozano MD Unavailable Dr. Daniela Fallon MD Primary Care Provider Dr. Jesus Luu DO Attending Provider Dr. Jesus Luu DO Emergency Provider Dr. Krzysztof Leal DO Emergency Provider Albert MURILLO, Dr. Tere Nick Admit Provider Albert MURILLO, Dr. Tere Nick Attending Provider Albert MURILLO, Dr. Tere Nick Other Provider Oc MURILLO, Dr. Nieto Attending Provider Oc MURILLO, Dr. Nieto Other Provider Marilynn MURILLO, Dr. Paniagua Other Provider Clementine FU, Dr. Galaviz Attending Provider Clementine FU, Dr. Galaviz Other Provider Leeanne MURILLO, Dr. Nunez Referring Provider [phone] Aaron Grossman Attending Provider Leeanne MURILLO, Dr. Nunez Attending Provider [phone] Leeanne MURILLO, Dr. Nunez Primary Care Provider Aaron Grossman Referring Provider Joanne RN OFFICE-CClaudia Attending Provider Leeanne MURILLO, Dr. Nunez Primary Care Provider Ronny MURILLO, Dr. Oliver Referring Provider Ronny MURILLO, Dr. Oliver Emergency Provider NELI COX Referring Unavailable OLEGHE, EFEWONGBE KRZYSZTOF Primary Care Unav ailable NELI COX R Referring Unavailable OLEGHE, EFEWONGBE KRZYSZTOF Primary Care Unav ailable Leeanne MURILLO, Dr. Nunez Primary Care Physician Leeanne MURILLO, Dr. Nunez Referring Provider [phone] Joanne RN OFFICE-CClaudia Attending Physician Ronny MURILLO, Dr. Oliver Attending Physician Ronny MURILLO, Dr. Oliver Emergency Department Physician Leeanne MURILLO, Dr. Nunez Attending Physician [phone] LEEANNE MURILLO, DANIELA B Primary Care Unavailab elma TINEO PA-C, JOCELINE Ibrahim Attending Unavailable White, Tere L Consulting Unavailable White, Tere L Admitting Unavailable Oleghe, Efewongbe Primary Care Unavailable Guillaume Spring Attending Unavailable Siva Subramanian Consulting Unavailable Oc, Gerson Consulting Unavailable Guillaume Spring Consulting Unavailable Oc, Gerson Attending Unavailable Oleghe, Efewongbe Referring Unavailable Claudia Rubio Attending Unavailable Oleghe, Efewongbe Primary Care Unavailable Oleghe, Efewongbe Referring Unavailable Aaron Grossman Attending Unavailable Oleghe, Efewongbe Primary Care Unavailable Oleghe, Efewongbe Referring Unavailable Aaron Grossman Attending Unavailable Oleghe, Efewongbe Primary Care Unavailable Aaron Grossman Attending Unavailable Oleghe, Efewongbe Primary Care Unavailable Oleghe, Efewongbe Referring Unavailable White, Tere L Admitting Unavailable White, Tere L Consulting Unavailable Oleghe, Efewongbe Primary Care Unavailable Guillaume Spring Attending Unavailable Siva Subramanian Consulting Unavailable Oc, Gerson Consulting Unavailable Jesus Luu Attending Unavailable Oleghe, Efewongbe Primary Care Unavailable Jefferson, Benito Referring Unavailable Jefferson, Benito Attending Unavailable Oleghe, Efewongbe Primary Care Unavailable Aaron Grossman Referring Unavailable Aaron Grossman Attending Unavailable Oleghe, Efewongbe Primary Care Unavailable Oleghe, Efewongbe Referring Unavailable Oleghe, Efewongbe Attending Unavailable Oleghe, Efewongbe Primary Care Unavailable Oleghe, Efewongbe Referring Unavailable Claudia Rubio Attending Unavailable Oleghe, Efewongbe Primary Care Unavailable Oleghe, Efewongbe Referring Unavailable Oleghe, Efewongbe Attending Unavailable Oleghe, Efewongbe Primary Care Unavailable White, Tere L Admitting Unavailable White, Tere L Consulting Unavailable Oleghe, Efewongbe Primary Care Unavailable Oc, Gerson Attending Unavailable Oc, Gerson Consulting Unavailable White, Tere L Attending Unavailable Tarshae , Dr. Nunez Primary Care Physician Dr. Daniela Fallon MD Attending Physician [phone] Dr. Daniela Fallon MD Referring Provider [phone] Joanne RN OFFICE-CClaudia Attending Physician OLEGHE, EFEWONGBE KRZYSZTOF Primary Care Unav ailable RUEL LOZANO Referring Unavailable OLEGHE, EFEWONGBE KRZYSZTOF Primary Care Unav ailable [facility], MARCELO Ibrahim Attending Unavailable DAVEYMARCELO PEREYRA Referring Unavailable OLEGHE, EFEWONGBE KRZYSZTOF Primary Care Unav ailable [facility], MARCELO Ibrahim Referring Unavailable OLEGHE, EFEWONGBE KRZYSZTOF Primary Care Unav ailable [facility], MARCELO Ibrahim Referring Unavailable OLEGHE, EFEWONGBE KRZYSZTOF Primary Care Unav ailable CAYDEN BAE Attending Unavailable CAYDEN BAE Referring Unavailable OLEGHE, EFEWONGBE KRZYSZTOF Primary Care Unav ailable [facility], MARCELO Ibrahim Referring Unavailable OLEGHE, EFEWONGBE KRZYSZTOF Primary Care Unav ailable [facility], MARCELO Ibrahim Referring Unavailable OLEGHE, EFEWONGBE KRZYSZTOF Primary Care Unav ailable [facility], MARCELO Ibrahim Referring Unavailable OLEGHE, EFEWONGBE KRZYSZTOF Primary Care Unav ailable [facility], MARCELO Ibrahim Referring Unavailable OLEGHE, EFEWONGBE KRZYSZTOF Primary Care Unav ailable [facility], MARCELO Ibrahim Attending Unavailable DAVEYMARCELO PEREYRA Referring Unavailable OLEGHE, EFEWONGBE KRZYSZTOF Primary Care Unav ailable OLEGHE, EFEWONGBE KRZYSZTOF Primary Care Unav ailable [facility], MARCELO Ibrahim Referring Unavailable OLEGHE, EFEWONGBE KRZYSZTOF Primary Care Unav ailable [facility], MARCELO Ibrahim Referring Unavailable OLEGHE, EFEWONGBE KRZYSZTOF Primary Care Unav ailable OLEGHE, EFEWONGBE KRZYSZTOF Primary Care Unav ailable [facility], MARCELO Ibrahim Referring Unavailable OLEGHE, EFEWONGBE KRZYSZTOF Primary Care Unav ailable OLEGHE, EFEWONGBE KRZYSZTOF Primary Care Unav ailable OLEGHE, EFEWONGBE KRZYSZTOF Primary Care Unav ailable NELI COX Referring Unavailable OLEGHE, EFEWONGBE KRZYSZTOF Primary Care Unav ailable [facility], MARCELO Ibrahim Attending Unavailable OLEGHE, EFEWONGBE KRZYSZTOF Primary Care Unav ailable [facility], MARCELO Ibrahim Referring Unavailable OLEGHE, EFEWONGBE KRZYSZTOF Primary Care Unav ailable [facility], MARCELO Ibrahim Referring Unavailable OLEGHE, EFEWONGBE KRZYSZTOF Primary Care Unav ailable [facility], MARCELO Ibrahim Referring Unavailable OLEGHE, EFEWONGBE KRZYSZTOF Primary Care Unav ailable [facility], MARCELO Ibrahim Referring Unavailable OLEGHE, EFEWONGBE KRZYSZTOF Primary Care Unav ailable NELI COX R Attending Unavailable DAVEY, MARCELO Ibrahim Referring Unavailable OLEGHE, EFEWONGBE KRZYSZTOF Primary Care Unav ailable NELI COX R Referring Unavailable OLEGHE, EFEWONGBE KRZYSZTOF Primary Care Unav ailable [facility], MARCELO Ibrahim Referring Unavailable OLEGHE, EFEWONGBE KRZYSZTOF Primary Care Unav ailable NELI COX R Referring Unavailable OLEGHE, EFEWONGBE KRZYSZTOF Primary Care Unav ailable [facility], MARCELO Ibrahim Referring Unavailable OLEGHE, EFEWONGBE KRZYSZTOF Primary Care Unav ailable NELI COX R Referring Unavailable OLEGHE, EFEWONGBE KRZYSZTOF Primary Care Unav ailable [facility], MARCELO Ibrahim Attending Unavailable NELI COX R Referring Unavailable OLEGHE, EFEWONGBE KRZYSZTOF Primary Care Unav ailable NELI COX R Referring Unavailable OLEGHE, EFEWONGBE KRZYSZTOF Primary Care Unav ailable [facility], MARCELO Ibrahim Referring Unavailable OLEGHE, EFEWONGBE KRZYSZTOF Primary Care Unav ailable [facility], MARCELO Ibrahim Referring Unavailable OLEGHE, EFEWONGBE KRZYSZTOF Primary Care Unav ailable [facility], MARCELO Ibrahim Referring Unavailable OLEGHE, EFEWONGBE KRZYSZTOF Primary Care Unav ailable [facility], MARCELO Ibrahim Referring Unavailable OLEGHE, EFEWONGBE KRZYSZTOF Primary Care Unav ailable YANY PAGE Attending Unavailable OLEGHE, EFEWONGBE KRZYSZTOF Primary Care Unav ailable NELI COX R Referring Unavailable OLEGHE, EFEWONGBE KRZYSZTOF Primary Care Unav ailable NELI COX Attending Unavailable COOPER, MARCELO Ibrahim Referring Unavailable OLEGHE, EFEWONGBE KRZYSZTOF Primary Care Unav ailable DAVEY, MARCELO Ibrahim Referring Unavailable OLEGHE, EFEWONGBE KRZYSZTOF Primary Care Unav ailable DAVEY, MARCELO Ibrahim Referring Unavailable OLEGHE, EFEWONGBE KRZYSZTOF Primary Care Unav ailable DAVEY, MARCELO Ibrahim Referring Unavailable OLEGHE, EFEWONGBE KRZYSZTOF Primary Care Unav ailable NELI COX Referring Unavailable OLEGHE, EFEWONGBE KRZYSZTOF Primary Care Unav ailable DAVEY, MARCELO Ibrahim Referring Unavailable OLEGHE, EFEWONGBE KRZYSZTOF Primary Care Unav ailable DAVEY, MARCELO Ibrahim Attending Unavailable NELI COX Referring Unavailable OLEGHE, EFEWONGBE KRZYSZTOF Primary Care Unav ailable DAVEY, MARCELO Ibrahim Referring Unavailable OLEGHE, EFEWONGBE KRZYSZTOF Primary Care Unav ailable DAVEY, MARCELO Ibrahim Referring Unavailable OLEGHE, EFEWONGBE KRZYSZTOF Primary Care Unav ailable DAVEY, MARCELO Ibrahim Referring Unavailable OLEGHE, EFEWONGBE KRZYSZTOF Primary Care Unav ailable NELI COX Attending Unavailable OLEGHE, EFEWONGBE KRZYSZTOF Primary Care Unav ailable DAVEY, MARCELO Ibrahim Referring Unavailable OLEGHE, EFEWONGBE KRZYSZTOF Primary Care Unav ailable DAVEY, MARCELO Ibrahim Referring Unavailable OLEGHE, EFEWONGBE KRZYSZTOF Primary Care Unav ailable Allergies Allergy Classification Reported Allergen(s) Allergy Type Date of Onset Reaction(s) Facility Pollen (1 source) Grass pollen Substance Allergy 05-27-2017 Other [facility] (20 sources) Grass pollen; Translations: [GRASS POLLEN] Allergy to substance 05-27-2017 Other [facility] (20 sources) House Dust Mite; Translations: [HOUSE DUST MITE] Allergy to substance 05-27-2017 Other [facility] Work Phone: Medications Current Medications Medication Drug Class(es) Dates Sig (Normalized) Sig (Original) acetaminophen 325 mg oral tablet (20 sources) Start: 08-09-2024 take 2 tablets by mouth every six hours for pain acetaminophen (Tylenol) 325 mg tablet Indications: pain Take 2 tablets (650 mg) by mouth every 6 hours if needed (for mild to moderate pain). 08/09/2024 Active Start: 08-04-2024 take 1 tablet by mouth every s ix hours Start: 08-02-2024 End: 08-03-2024 Start: 08-02-2024 End: 08-04-2024 take 975 mg by mouth every six hours Start: 08-01-2024 End: 08-02-2024 take 1 tablet by mouth every six hours acetaminophen 325 mg / oxyCO DONE hydrochloride 5 mg oral tablet (7 sources) Opioid Agonist Start: 08-09-2024 End: 08-12-2024 Start: 04-30-2024 End: 05-11-2024 Oxycodone-Acetaminophen (Per cocet) 5-325 mg tablet Discontinued 1 {tbl} PO Q8H as needed for pain 10 3 0 April 30, 2024 May 11, 2024 9:58am Sprain of right trapezoid ligament Sprain of other specified parts of right shoulder girdle, initial encounter atorvastatin 80 mg oral tablet (1 source) HMG-CoA Reductase Inhibitor Start: 08-02-2024 Calcium 600+D Plus Minerals oral tablet, chewable (9 sources) Start: 06-11-2020 take 1 tablet by mouth once daily Calcium 600+D Plus Minerals oral tablet, chewable Dose = 2 tab(s), Chewed, qDay, 0 Refill(s) Start Date: 06/11/20 Status: Ordered calcium carbonate 1500 mg oral tablet (20 sources) Start: 06-30-2018 take 1 tablet by mouth once daily calcium carbonate 600 mg calcium (1,500 mg) tablet Take 600 mg by mouth once daily. 06/30/2018 Active Start: 06-30-2018 take 1 tablet by bryson twice daily Calcium Carbonate 600 mg calcium (1,500 mg) tablet Active 600 mg PO TWICE A DAY June 29, 2018 11:00pm Complies with drug therapy cholecalciferol 0.05 mg oral capsule (19 sources) Vitamin D Start: 12-08-2024 take 1 capsule by mouth once daily Cholecalciferol (Vitamin D3) (Vitamin D3) 50 mcg (2,000 unit) capsule Active 50 ug PO DAILY December 08, 2024 12:00am Complies with drug therapy Start: 06-30-2018 End: 06-04-2024 take 1 capsule by mouth once daily Cholecalciferol (Vitamin D3) 2,000 unit capsule Discontinued 2000 U PO DAILY June 29, 2018 11:00pm June 04, 2024 9:46am COMPOUNDED PRESCRIPTION (2 sources) COMPOUNDED PRESC RIPTION Allergy injections once per week. Sees [facility]. Active COMPOUNDED PRESC RIPTION Allergy injections once per week. Sees [facility]. 0 Active Comment on above: Allergy injections o nce per week. Sees [facility]. cyclobenzaprine hydrochloride 10 mg oral tablet (20 sources) Muscle Relaxant Start: 06-25-20 take 1 tablet by mouth every twelve hours for muscle spasms cyclobenzaprine (Flexeril) 10 mg tablet Indications: Neck pain Take 1 tablet (10 mg) by mouth if needed for muscle spasms (every 12 hours). 30 tablet 1 07/23/2025 11:53 AM EDT 06/25/2025 Active Start: 05-31-2025 take 1 tablet by bryson th every twelve hours in the evening for muscle spasms cyclobenzaprine (Flexeril) 10 mg tablet Indications: Neck pain Take 1 tablet (10 mg) by mouth if needed for muscle spasms (every 12 hours). 30 tablet 1 06/12/2025 3:22 PM EDT 05/31/2025 Active Start: 12-27-2024 take 1 tablet by bryson th every twelve hours cyclobenzaprine (Flexeril) 10 mg tablet Indications: Neck pain Take 1 tablet (10 mg) by mouth every 12 hours. 30 tablet 1 12/27/2024 Active Start: 05-17-2024 take 1 tablet by bryson th three times daily as needed for pain cyclobenzaprine (Flexeril) 10 mg tablet Indications: Neck pain Take 1 tablet (10 mg) by mouth 3 times a day as needed for muscle spasms (Pain). 30 tablet 1 07/04/2024 Active Start: 05-11-2024 End: 12-08-2024 take 1 tablet by mouth twice daily as needed for muscle spasms Cyclobenzaprine 10 mg tablet Discontinued 10 mg PO TWICE A DAY as needed for muscle spasm 90 0 May 10, 2024 11:00pm December 08, 2024 11:11pm Start: 04-30-2024 take 1 tablet by bryson th three times daily as needed for pain cyclobenzaprine (Flexeril) 10 mg tablet Indications: Neck pain Take 1 tablet (10 mg) by mouth 3 times a day as needed for muscle spasms (Pain). 10 tablet 04/30/2024 Active Start: 01-28-2017 End: 05-17-2019 take 1 tablet by mouth three times daily as needed for muscle spasms Cyclobenzaprine 10 mg tablet Discontinued 10 mg PO THREE TIMES A DAY as needed for muscle spasm 60 2 November 30, 2018 1:45pm May 17, 2019 12:26pm Comment on above: Take 1 tablet by bryson th three times daily as needed. diclofenac sodium 0.01 mg/mg topical gel (1 source) Nonsteroidal Anti-inflammatory Drug Start: 08-07-2024 docusate sodium 50 mg / sennosides, intermediate 8.6 mg oral tablet (1 source) Start: 08-04-2024 Drug or medicament (substanc e) (5 sources) Start: 08-03-2024 Start: 08-03-2024 End: 08-04-2024 Start: 08-02-2024 End: 08-02-2024 Start: 08-02-2024 End: 08-02-2024 Start: 08-01-2024 End: 08-02-2024 1 ml fentaNYL 0.05 mg/ml injection (1 source) Opioid Agonist Start: 03-02-2024 As needed, Sta rting on Latoya 03/02/24 at 1047, Intraprocedure furosemide 20 mg oral tablet (5 sources) Loop Diuretic Start: 08-08-2024 Start: 08-02-2024 End: 08-04-2024 handicap placard (6 sources) Start: 09-01-[address] Active 0 .Route .MEDSUPPLY 1 0 September 01, 2024 12:00am History of open heart surgery 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 Other specified postprocedural states Malignant neoplasm of unspecified site of unspecified female breast debility placard for one year Start: 09-01-[address] Active 0 .Route .MEDSUPPLY 1 0 September 01, 2024 1:00am History of open heart surgery 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 Other specified postprocedural states Malignant neoplasm of unspecified site of unspecified female breast debility placard for one year Start: 09-01-[address] Active 0 .Route .MEDSUPPLY 1 September 01, 2024 1:00am placard for one year Handicap Placard (2 sources) Start: 07-13-[address] Active 0 .ROUTE .MEDSUPPLY 1 July 12, 2025 11:00pm Other reduced mobility As directed, length of time 10 years Start: 07-13-[address] Active 0 .ROUTE .MEDSUPPLY 1 July 13, 2025 12:00am Other reduced mobility As directed, length of time 10 years heparin (6 sources) Unfractionated Heparin, Anti-coagulant Start: 06-21-2025 500 Units, intra-cat heter, As needed, line care, Starting on Latoya 06/21/25 at 0940 Start: 03-21-2025 End: 03-21-2025 500 Units, intra-catheter, O nce, On Wed03/21/25 at 1000, For 1 dose Start: 08-02-2024 End: 08-04-2024 inject 5000 [IU] by subcutaneous injection every eight hours Start: 05-19-2024 heparin 1,000 unit/mL injection 500 Units Start: 03-02-2024 As needed, Sta rting on Latoya 03/02/24 at 1105, Intraprocedure lidocaine 0.04 mg/mg medicated patch (4 sources) Antiarrhythmic, Amide Local Anesthetic Start: 08-05-2024 Start: 08-02-2024 End: 08-05-2024 Start: 03-02-2024 As needed, Sta rting on Latoya 03/02/24 at 1048, Intraprocedure lisinopril 40 mg oral tablet (20 sources) Angiotensin Converting Enzyme Inhibitor Start: 04-18-2025 End: 05-07-2025 take 1 tablet by mouth once daily Lisinopril 40 mg tablet Active 40 mg PO DAILY 90 May 07, 2025 3:23pm Complies with drug therapy Start: 08-10-2024 End: 08-10-2025 take 1 tablet by mouth once daily Lisinopril 5 mg tablet Discontinued 5 mg PO DAILY December 08, 2024 12:00am April 18, 2025 4:33pm Start: 08-05-2024 Start: 09-21-2022 lisinopril 20 mg oral tablet Dose : 20 mg = 1 tab(s), Oral, Daily, # 30 tab(s), 11 Refill(s), other reason (Rx) Start Date: 09/21/22 Status: Ordered Start: 04-02-2016 End: 12-08-2024 take 1 tablet by mouth once daily Lisinopril 40 mg tablet Discontinued 40 mg PO daily 90 September 22, 2023 5:21pm May 11, 2024 10:26am Start: 07-20-2012 lisinopril 20 mg oral tablet Dose : 20 mg = 1 tab(s), Oral, BID, 0 Refill(s) Start Date: 07/20/12 Status: Ordered Comment on above: Take [facility]. melatonin 5 mg oral tablet (20 sources) Start: 08-04-2024 Start: 11-23-2017 take 1 capsule by mo [facility] at bedtime as needed for sleep Melatonin 10 mg capsule Active 10 mg PO BEDTIME as needed for sleep November 23, 2017 12:00am Complies with drug therapy melatonin 10 mg tablet Take 1 tablet (10 mg) by mouth as needed at bedtime. Active Melatonin 5 mg c ap Take by mouth. Active Comment on above: Take by mouth. 5 ml midazolam 1 mg/ml injection (1 source) Benzodiazepine Start: 03-02-20 As needed, Starting on Latoya 03/02/24 at 1047, Intraprocedure multivitamin with minerals tablet (18 sources) Start: 08-10-20 End: 08-10-20 take 1 tablet by mouth once daily multivitamin with minerals tablet Indications: nutritional support Take 1 tablet by mouth once daily. 08/10/2024 08/10/2025 Active mupirocin 0.02 mg/mg topical ointment (2 sources) RNA Synthetase Inhibitor Antibacterial Start: 08-15-20 Start: 08-07-2025 End: 08-15-2025 Mupirocin (Centany) 2 % oint ment Discontinued 1 NMA TOPICAL TWICE A DAY August 06, 2025 11:00pm August 15, 2025 6:52pm Naloxone (1 source) Opioid Antagonist Start: 08-01-2024 nitroglycerin 0.4 mg sublingual tablet (1 source) Start: 02-16-2012 nitroglycerin 0.4 mg sublingual tablet Dose : 0.4 mg = 1 tab(s), Sublingual, q5min, 0 Refill(s) Start Date: 02/16/12 Status: Ordered ondansetron 8 mg oral tablet (20 sources) Serotonin-3 Receptor Antagonist Start: 08-01-2024 take 4 mg intravenously every eight hours as needed Start: 07-04-2024 End: 05-16-2025 take 1 tablet by mouth every eight hours in the evening for nausea ondansetron (Zofran) 8 mg tablet Indications: Chemotherapy-induced nausea , Malignant neoplasm of lower-outer quadrant of right breast of female, estrogen receptor negative , Encounter for antineoplastic chemotherapy , Chemotherapy-induced fatigue , Malignant neoplasm of areola of breast in female, estrogen receptor negative, unspecified laterality (Multi) Take 1 tablet (8 mg) by mouth every 8 hours if needed for nausea or vomiting. 20 tablet 1 05/28/2025 4:32 PM EDT 05/16/2025 Active Start: 06-07-2024 End: 06-28-2024 take 1 tablet by mouth every eight hours for nausea ondansetron (Zofran) 8 mg tablet Indications: Malignant neoplasm of lower-outer quadrant of right breast of female, estrogen receptor negative (Multi) Take 1 tablet (8 mg) by mouth every 8 hours if needed for nausea or vomiting for up to 21 days. 20 tablet 3 06/07/2024 06/28/2024 Start: 04-30-2024 End: 04-30-2024 4 mg, intravenous, Once, On 04/30/24 at 1405, For 1 dose, When administering via IV Push, administer over 3-5 minutes. Start: 03-29-2024 End: 04-19-2024 take 1 tablet by mouth every eight hours for nausea ondansetron (Zofran) 8 mg tablet Indications: Carcinoma of breast, estrogen receptor positive, stage 3, unspecified laterality (Multi) Take 1 tablet (8 mg) by mouth every 8 hours if needed for nausea or vomiting for up to 21 days. 20 tablet 3 03/29/2024 04/19/2024 Active Start: 09-06-2017 End: 11-23-2017 take 1 tablet by mouth every eight hours as needed for nausea Ondansetron 4 MG tablet Discontinued 4 mg PO EVERY 8 HOURS NEEDED as needed for Nausea September 06, 2017 12:00am November 23, 2017 9:38am oxyCODONE hydrochloride 5 mg oral tablet (2 sources) Opioid Agonist Start: 08-02-2024 take 5 mg by mouth every six hours as needed Start: 08-01-2024 End: 08-02-2024 take 1 tablet by mouth every four hours as needed pantoprazole 40 mg delayed release oral tablet (20 sources) Proton Pump Inhibitor Start: 12-08-2024 End: 05-07-2025 take 1 tablet by mouth twice daily Pantoprazole 40 mg tablet,delayed release (DR/EC) Active 40 mg PO TWICE A DAY 180 1 May 07, 2025 3:23pm Complies with drug therapy Start: 08-02-2024 Start: 11-23-2017 End: 11-23-2017 take 40 mg by mouth once daily in the morning Pantoprazole (Protonix) [address] for susp in packet Discontinued 40 mg PO EVERY MORNING November 23, 2017 12:00am November 23, 2017 12:01pm Start: 10-30-2016 End: 12-08-2024 take 1 tablet by mouth once daily Pantoprazole 40 mg tablet,delayed release (DR/EC) Discontinued 40 mg PO daily 90 3 March 03, 2024 2:53pm May 11, 2024 10:26am Comment on above: Take 1 tablet by bryson th daily before breakfast. Take on empty stomach, 1/2 hr before meal. polyethylene glycol [id number] [id number] mg powder for oral solution (10 sources) Osmotic Laxative Start: 08-01-20 polyethylene glycol (Glycolax, Miralax) 17 gram packet Indications: constipation Take 17 g by mouth once daily as needed (constipation). 08/09/2024 Active polysaccharide iron complex 150 mg oral capsule (2 sources) Start: 08-07-20 End: 09-08-20 microencapsulated potassium chloride 20 meq extended release oral tablet (5 sources) Start: 07-18-20 End: 08-02-20 take 1 tablet by mouth once daily potassium chloride CR (Klor-Con M20) 20 mEq ER tablet Indications: Hypokalemia Take 1 tablet (20 mEq) by mouth once daily for 14 days. Do not crush or chew. 14 tablet 07/19/2025 12:03 PM EDT 07/18/2025 08/02/2025 Active Start: 08-05-2024 End: 08-05-2024 Start: 08-01-2024 End: 08-04-2024 take 20 mEq intravenously every six hours as needed ramelteon 8 mg oral tablet (2 sources) Melatonin Receptor Agonist Start: 11-27-2016 take 1 tablet by mouth once daily at bedtime ramelteon (ROZEREM) 8 mg tablet Take 1 tablet by mouth daily at bedtime. 30 tablet 3 11/27/2016 Active Comment on above: Take 1 tablet by bryson th daily at bedtime. sotalol hydrochloride 80 mg oral tablet (20 sources) Antiarrhythmic Start: 12-08-2024 take 1 tablet by mouth once daily Sotalol (Betapace) 80 mg tablet Active 80 mg PO DAILY December 08, 2024 12:00am Complies with drug therapy Start: 11-28-2024 take 1 tablet by bryson th every twelve hours sotalol (Betapace) 80 mg tablet Take 1 tablet (80 mg) by mouth every 12 hours. 11/28/2024 Active Start: 04-01-2011 End: 12-08-2024 take 1 tablet by mouth every twelve hours Sotalol (Betapace) 120 mg tablet Discontinued 120 mg PO Q12H 180 3 March 03, 2024 2:52pm May 11, 2024 9:58am Start: 04-01-2011 take 1 tablet by bryson th twice daily sotalol (BETAPACE) 120 mg tablet Indications: Essential hypertension, benign Take 1 tablet by mouth twice daily. 60 tablet 11 04/02/2016 Active Comment on above: Take 1 tablet by bryson th twice daily. traZODone hydrochloride 100 mg oral tablet (20 sources) Serotonin Reuptake Inhibitor Start: 11-10-2023 Start: 05-27-2022 End: 08-13-2023 take 1 tablet by mouth at bedtime as needed Trazodone 50 mg tablet Discontinued 50 mg PO AT BEDTIME as needed for insomnia 120 1 July 26, 2023 3:10pm August 13, 2023 8:58am Start: 02-24-2022 End: 05-27-2022 Trazodone 50 mg tablet Disco ntinued 75 mg PO AT BEDTIME as needed for insomnia 120 0 February 24, 2022 9:02am May 27, 2022 9:04am Start: 02-24-2022 End: 05-27-2022 take 75 mg by mouth at bedtime Trazodone Discontinued 75 MG PO AT BEDTIME 120 February 24, 2022 10:02am May 27, 2022 10:04am Start: 11-23-2017 End: 02-24-2022 take 1 tablet by mouth at bedtime as needed Trazodone 50 mg tablet Discontinued 50 mg PO AT BEDTIME as needed for insomnia 90 0 October 14, 2021 2:43pm February 24, 2022 9:02am Start: 02-16-2012 End: 07-30-2025 take 1 tablet by mouth at bedtime as needed Trazodone 100 mg tablet Active 100 mg PO AT BEDTIME as needed for insomnia 90 1 July 30, 2025 3:26pm Complies with drug therapy Comment on above: Take 50 mg by mouth daily at bedtime. (2 sources) Start: 08-10-2024 End: 08-10-2025 Start: 08-07-2024 Completed/Discontinued Medications Medication Drug Class(es) Dates Sig (Normalized) Sig (Original) 20 ml albumin human, intermediate 250 mg/ml injection (2 sources) Human Serum Albumin Start: 08-03-2024 End: 08-03-2024 Start: 08-01-2024 End: 08-01-2024 amLODIPine 10 mg oral tablet (20 sources) Dihydropyridine Calcium Channel Eun Start: 10-18-2023 End: 08-09-2024 Start: 09-03-2021 Norvasc 5 mg o ral tablet Dose : 5 mg = 1 tab(s), Oral, BID, # 60 tab(s), 11 Refill(s), other reason (Rx) Start Date: 09/03/21 Status: Ordered Start: 06-21-2019 End: 08-22-2021 take 1 tablet by mouth once daily Amlodipine 5 mg tablet Discontinued 5 mg PO daily 90 0 April 04, 2021 11:14am August 22, 2021 1:51pm Start: 06-20-2019 End: 06-21-2019 take 5 mg by mouth once daily Amlodipine 10 mg tablet Discontinued 5 mg PO daily 90 June 20, 2019 10:21am June 21, 2019 8:16am Start: 06-20-2019 End: 06-21-2019 take 5 mg by mouth once daily Amlodipine Discontinued 5 MG PO daily 90 June 20, 2019 11:21am June 21, 2019 9:16am Start: 04-09-2017 End: 05-07-2025 take 1 tablet by mouth once daily Amlodipine 10 mg tablet Discontinued 10 mg PO daily 90 November 15, 2023 5:57pm May 11, 2024 10:26am Comment on above: Take 1 tablet by bryson th once daily. amLODIPine 10 mg / atorvastatin 10 mg oral tablet (13 sources) Dihydropyridine Calcium Channel Eun, HMG-CoA Reductase Inhibitor Start: 11-23-2017 End: 11-23-2017 Amlodipine-Atorvastatin 10-10 mg tablet Discontinued 1 {tbl} PO daily November 23, 2017 12:00am November 23, 2017 12:01pm Start: 11-23-2017 End: 11-23-2017 take 1 tablet by mouth once daily Amlodipine-Atorvastatin Discontinued 1 TABLET PO daily November 23, 2017 1:00am November 23, 2017 1:01pm amoxicillin 875 mg / clavulanate 125 mg oral tablet (7 sources) Penicillin-class Antibacterial Start: 09-24-2024 End: 12-08-2024 take 1 tablet by mouth every twelve hours Amoxicillin-Pot Clavulanate 875-125 mg tablet Discontinued 875 mg PO Q12H 20 0 September 24, 2024 12:00am December 08, 2024 11:08pm Start: 07-05-2023 End: 07-15-2023 take 1 tablet by mouth every twelve hours Augmentin 500 mg-125 mg oral tablet 1 tab(s), Oral, q12h, X 10 day(s), # 20 tab(s), 0 Refill(s), 07/15/23 12:56:00 PM EDT, Pharmacy: [facility], 152.4, cm, 07/05/23 8:45:00 EDT, Height, 68.5, kg, 07/05/23 8:45:00 EDT, Dosing Weight Start Date: 07/05/23 Stop Date: 07/15/23 Status: Ordered aspirin 300 mg rectal suppository (20 sources) Platelet Aggregation Inhibitor, Nonsteroidal Anti-inflammatory Drug Start: 08-02-2024 End: 08-02-2024 Start: 06-11-2020 aspirin 81 mg oral delayed release tablet Dose : 81 mg = 1 tab(s), Oral, Daily, 0 Refill(s) Start Date: 06/11/20 Status: Ordered Start: 11-23-2017 take 1 tablet by bryson th once daily Aspirin 81 mg tablet,chewable Active 81 mg PO DAILY November 23, 2017 12:00am Complies with drug therapy Start: 01-19-2017 take 1 tablet by bryson th once daily aspirin 81 mg EC tablet Take 1 tablet (81 mg) by mouth once daily. 01/19/2017 Active Comment on above: Take 1 tablet by bryson th once daily. bisacodyl 10 mg rectal suppository (1 source) Stimulant Laxative Start: 08-04-2024 End: 08-04-2024 Calcium Carb,Lactat-Vitamin D3 200 mg calcium -250 unit tablet (6 sources) Start: 11-23-2017 End: 02-22-2018 Calcium Carb,Lactat-Vitamin D3 200 mg calcium -250 unit tablet Discontinued 2 {tbl} PO EVERY MORNING November 23, 2017 12:00am February 22, 2018 8:25am Start: 11-23-2017 End: 02-22-2018 Calcium Carb,Lactat-Vitamin D3 200 mg calcium -250 unit tablet Discontinued 2 {tbl} PO EVERY MORNING November 23, 2017 1:00am February 22, 2018 9:25am calcium carbonat and lactate 200 mg calcium-vitamin D3 250 unit tablet (7 sources) Start: 11-23-2017 End: 02-22-2018 take 2 tablets by mouth once daily in the morning calcium carbonat and lactate 200 mg calcium-vitamin D3 250 unit tablet Discontinued 2 TABLET PO EVERY MORNING November 23, 2017 9:26am February 22, 2018 8:25am Start: 11-23-2017 End: 02-22-2018 take 2 tablets by mouth once daily in the morning calcium carbonat and lactate 200 mg calcium-vitamin D3 250 unit tablet Discontinued 2 TABLET PO EVERY MORNING November 23, 2017 12:00am February 22, 2018 8:25am Start: 11-23-2017 End: 02-22-2018 take 2 tablets by mouth once daily in the morning calcium carbonat and lactate 200 mg calcium-vitamin D3 250 unit tablet Discontinued 2 TABLET PO EVERY MORNING November 23, 2017 1:00am February 22, 2018 9:25am calcium chloride 0.0014 meq/ml / potassium chloride 0.004 meq/ml / sodium chloride 0.103 meq/ml / sodium lactate 0.028 meq/ml injectable solution (4 sources) Start: 08-01-2024 End: 08-02-2024 50 ml calcium gluconate 20 mg/ml injection (1 source) Start: 08-01-2024 End: 08-04-2024 take 1 g intravenously every six hours as needed ceFAZolin 2000 mg injection (1 source) Cephalosporin Antibacterial Start: 08-01-2024 End: 08-03-2024 take 2 g intravenously every eight hours cefdinir 300 mg oral capsule (6 sources) Cephalosporin Antibacterial Start: 12-15-2024 End: 02-06-2025 take 1 capsule by mouth every twelve hours Cefdinir 300 mg Capsule Discontinued 300 mg PO EVERY 12 HOURS 7 0 December 15, 2024 12:00am February 06, 2025 12:03pm cephalexin 500 mg oral capsule (5 sources) Cephalosporin Antibacterial Start: 02-06-2025 End: 07-13-2025 take 1 capsule by mouth every twelve hours Cephalexin 500 mg capsule Discontinued 500 mg PO Q12H 14 0 February 05, 2025 11:00pm July 13, 2025 9:05am chlorhexidine gluconate 40 mg/ml medicated liquid soap (20 sources) Start: 07-24-2024 End: 08-09-2024 Start: 07-24-2024 chlorhexidine (Hibiclens) 4 % external liquid Indications: Aneurysm of ascending aorta without rupture (CMS-HCC) , Paroxysmal atrial fibrillation (Multi) , Bilateral carotid artery stenosis Use as directed daily preoperatively 473 mL 07/24/2024 Suspended Start: 07-24-2024 chlorhexidine (Peridex) 0.12 % solution Indications: Aneurysm of ascending aorta without rupture (CMS-HCC) , Paroxysmal atrial fibrillation (Multi) , Bilateral carotid artery stenosis Swish and spit with 15ml of solution the night before and morning of surgery. Do not swallow. 15 mL 07/24/2024 Suspended Start: 06-04-2024 End: 09-01-2024 take 1 mL by mouth twice daily Chlorhexidine Gluconate 0.12 % mouthwash Discontinued 15 mL PO TWICE A DAY June 03, 2024 11:00pm September 01, 2024 9:45am TAKE NIGHT BEFORE AND MORNING OF SURGERY SCHEDULED IN JULY Start: 12-31-2023 chlorhexidine (Hibiclens) 4 % external liquid Indications: Status post coronary artery bypass grafting , Preoperative testing Use as directed daily preoperatively 473 mL 12/31/2023 Active Start: 12-31-2023 chlorhexidine (Peridex) 0.12 % solution Indications: Status post coronary artery bypass grafting , Preoperative testing Swish and spit with 15ml of solution the night before and morning of surgery. Do not swallow. 15 mL 12/31/2023 Active ciclopirox 0.0077 mg/mg topi lucas gel (13 sources) Start: 09-22-2019 End: 12-22-2019 Ciclopirox 0.77 % gel Discontinued 1 NMA TOPICAL AT BEDTIME 100 180 1 September 22, 2019 12:00am December 22, 2019 8:54am apply to right thumb nail Start: 09-22-2019 End: 12-22-2019 Ciclopirox Discontinued 1 AP PLIC TOPICAL AT BEDTIME 100 180 September 22, 2019 1:00am December 22, 2019 9:54am apply to right thumb nail clopidogrel 75 mg oral tablet (20 sources) P2Y12 Platelet Inhibitor Start: 06-04-2024 End: 12-08-2024 take 1 tablet by mouth once daily Clopidogrel 75 mg tablet Discontinued 75 mg PO DAILY June 03, 2024 11:00pm December 08, 2024 11:11pm Start: 07-24-2017 End: 09-22-2019 take 1 tablet by mouth once daily Clopidogrel (Plavix) 75 mg tablet Discontinued 75 mg PO daily 90 3 February 13, 2019 3:31pm September 22, 2019 9:23am Comment on above: TAKE 1 TABLET BY BRYSON TH EVERY DAY 100 ml dexmedetomidine 0.004 mg/ml injection (2 sources) Central alpha-2 Adrenergic Agonist Start: End: docusate sodium 100 mg oral capsule (9 sources) Start: End: 01-22-2 025 take 1 capsule by mouth twice daily as needed for constipation docusate sodium (Colace) 100 mg capsule Indications: constipation Take 1 capsule (100 mg) by mouth 2 times a day as needed for constipation. 08/09/2024 11/08/2024 Discontinued (Med List Cleanup) EPINEPHrine (Adrenalin) 4 mg in dextrose 5% 250 mL (16 mcg/mL) infusion (premix) (1 source) Start: End: 0.5 ml filgrastim-aafi 0.6 mg/ml prefilled syringe (13 sources) Leukocyte Growth Factor Start: End: inject 1 dose by subcutaneous injection once daily Filgrastim-Aafi (Nivestym) 300 mcg/0.5 mL syringe Discontinued 300 ug SC DAILY June 03, 2024 11:00pm September 01, 2024 9:46am CHEMO //INJECT SUBCUTANEOUSLY FOR 4 DAYS STARTING 24 HOURS AFTER EACH CHEMO, LAST DOSE 06/03/24 WHICH WAS DOSE #3 Start: 04-19-2024 End: 08-16-2024 Fluad Quad (65yr up)(PF) 60 mcg (15 mcg x 4)/0.5mL IM syringe (flu vac (1 source) Start: 11-24-2021 End: 11-24-2021 Fluad Quad (65yr up)(PF) 60 mcg (15 mcg x 4)/0.5mL IM syringe (flu vac Discontinued 60 MCG IM ONCE 0.5 November 24, 2021 1:41pm November 24, 2021 1:57pm Flucelvax Quad (PF) (flu vac qs 2017(4 yr up)CD(PF)) 60 mcg (15 mcg x (1 source) Start: 07-15-2018 End: 07-15-2018 inject 15 ug by intramuscular injection once Flucelvax Quad (PF) (flu vac qs 2017(4 yr up)CD(PF)) 60 mcg (15 mcg x Discontinued 0.5 ML IM ONCE 1 July 15, 2018 8:29am July 15, 2018 8:49am fludeoxyglucose F-18 injection 12.2 millicurie (1 source) Start: 10-26-2024 End: 10-26-2024 12.2 millicurie, intravenous, Once in imaging, Starting on Latoya 10/26/24 at 1116, For 1 dose, Administer 60 minutes and up to 3 hours prior to imaging unless otherwise indicated. 1 ml hydrALAZINE hydrochloride 20 mg/ml injection (5 sources) Arteriolar Vasodilator Start: 08-03-2024 End: 08-03-2024 Start: 08-01-2024 End: 08-05-2024 take 10 mg intravenously every four hours as needed hydroCHLOROthiazide 12.5 mg oral tablet (20 sources) Thiazide Diuretic Start: 05-23-2019 End: 06-09-2021 take 1 tablet by mouth once daily Hydrochlorothiazide 12.5 mg tablet Discontinued 12.5 mg PO DAILY 90 3 July 10, 2020 2:33pm July 16, 2020 1:44pm Start: 03-20-2019 End: 05-17-2019 Hydrochlorothiazide 25 mg ta blet Discontinued 12.5 mg PO daily 90 March 20, 2019 11:01am May 17, 2019 1:14pm Start: 03-20-2019 End: 05-17-2019 take 12.5 mg by mouth once daily Hydrochlorothiazide Discontinued 12.5 MG PO daily 90 March 20, 2019 12:01pm May 17, 2019 2:14pm Start: 04-02-2016 End: 03-20-2019 take 1 tablet by mouth once daily Hydrochlorothiazide 25 mg tablet Discontinued 25 mg PO daily 90 November 14, 2018 10:15am March 20, 2019 11:01am Comment on above: Take 1 tablet by [facility] once daily. 1 ml HYDROmorphone hydrochlo ride 1 mg/ml cartridge (5 sources) Opioid Agonist Start: 08-03-2024 End: 08-03-2024 Start: 08-03-2024 End: 08-03-2024 Start: 08-02-2024 End: 08-02-2024 Start: 08-02-2024 End: 08-02-2024 Start: 08-01-2024 End: 08-02-2024 insulin lispro 100 unt/ml injectable solution (1 source) Insulin Analog Start: 08-01-2024 End: 08-04-2024 iohexol (OMNIPaque) 350 mg iodine/mL solution 75 mL (2 sources) Start: 06-21-2025 End: 06-21-2025 75 mL, intravenous, Once in imaging, Starting on Latoya 06/21/25 at 0916, For 1 dose Start: 03-21-2025 End: 03-21-2025 75 mL, intravenous, Once in imaging, Starting on Wed03/21/25 at 0930, For 1 dose lidocaine 25 mg/ml / prilocaine 25 mg/ml topical cream (20 sources) Antiarrhythmic, Amide Local Anesthetic Start: 03-30-2024 End: 09-01-2024 Lidocaine-Prilocaine 2.5-2.5 % cream Discontinued 1 NMA TOPICAL ONE TIME June 03, 2024 11:00pm September 01, 2024 9:46am lidocaine with 8.4% sod bicarb (Buffered Xylocaine) 0.9 % (10 mL) injection 10 mL (2 sources) Start: 03-14-2024 End: 03-14-2024 10 mL, subcutaneous, Once, On Wed03/14/24 at 1000, For 1 dose, Intraprocedure Start: 02-22-2024 End: 02-22-2024 10 mL, subcutaneous, Once, O n Wed02/22/24 at 0945, For 1 dose, Intraprocedure loratadine 10 mg oral tablet (13 sources) Start: 06-04-2024 End: 09-01-2024 take 1 tablet by mouth once daily Loratadine 10 mg tablet Discontinued 10 mg PO DAILY June 03, 2024 11:00pm September 01, 2024 9:46am TAKE DAY OF CHEMO, AND 5 DAYS AFTER Start: 04-26-2024 End: 05-26-2024 10 ml methocarbamol 100 mg/m l injection (2 sources) Muscle Relaxant Start: 08-03-2024 End: 08-03-2024 Start: 08-02-2024 End: 08-02-2024 methylPREDNISolone acetate 40 mg/ml injectable suspension (20 sources) Corticosteroid Start: 06-09-2021 End: 06-09-2021 Depo-Medrol (methylprednisolone acetate) 40 mg/mL suspension for injection Discontinued 40 MG INTRAARTIC ONCE 1 June 09, 2021 7:19am June 09, 2021 7:48am Start: 08-05-2020 End: 08-05-2020 Depo-Medrol (methylprednisol one acetate) 40 mg/mL suspension for injection Discontinued 40 MG INTRAARTIC ONCE August 05, 2020 12:10pm August 05, 2020 1:58pm Start: 05-17-2019 End: 05-23-2019 take 1 tablet by mouth once Methylprednisolone (Medrol (Sameer)) 4 mg tablets,dose pack Discontinued 0 PO per package directions May 16, 2019 11:00pm May 23, 2019 8:50am pkg insructions PO PER PKG DIR; Start: 06-24-2018 End: 06-30-2018 take 1 tablet by mouth once Methylprednisolone (Medrol (Sameer)) 4 mg tablets,dose pack Discontinued 0 PO per package directions 07 11June 23, 2018 11:00pm June 30, 2018 1:23pm PO PER PKG DIR metoclopramide 5 mg oral tablet (13 sources) Dopamine-2 Receptor Antagonist Start: 05-17-2019 End: 05-23-2019 take 1 tablet by mouth at bedtime as needed for nausea and vomiting Metoclopramide Hcl (Reglan) 5 mg tablet Discontinued 5 mg PO before meals and at bedtime as needed for nausea and vomiting 30 10 0 May 16, 2019 11:00pm May 25, 2019 11:00pm May 23, 2019 9:04am metoprolol tartrate 50 mg oral tablet (12 sources) beta-Adrenergic Eun Start: 08-05-2024 End: 08-09-2025 take 1 tablet by mouth twice daily metoprolol tartrate (Lopressor) 50 mg tablet Indications: prevention of anginal pain in coronary artery disease Take 1 tablet by mouth 2 times a day. 60 tablet 08/09/2024 11/08/2024 Discontinued (Med List Cleanup) Start: 08-03-2024 End: 08-05-2024 1 ml morphine sulfate 4 mg/ml prefilled syringe (1 source) Opioid Agonist Start: 04-30-2024 End: 04-30-2024 4 mg, intravenous, Once, On 04/30/24 at 1405, For 1 dose Qqfvpzfz-Ehn-Yo-Lycopen- Lutein (Complete Mv Adult 50 Plus) 0.4 mg-300 mcg- 250 mcg tablet (8 sources) Start: 11-24-2023 End: 06-04-2024 Anzpgnis-Sui-Fk-Lycopen-Gabby tein (Complete Mv Adult 50 Plus) 0.4 mg-300 mcg- 250 mcg tablet Discontinued 1 {tbl} PO DAILY November 24, 2023 12:00am June 04, 2024 9:46am Start: 11-24-2023 End: 06-04-2024 Bhrigyie-Cko-Zr-Lycopen-Lute in (Complete Mv Adult 50 Plus) 0.4 mg-300 mcg- 250 mcg tablet Discontinued 1 {tbl} PO DAILY November 24, 2023 1:00am June 04, 2024 10:46am Start: 11-24-2023 take 1 tablet by bryson th once daily Elcenniu-Gzh-Lg-Lycopen-Lutein (Complete Mv Adult 50 Plus) 0.4 mg-300 mcg- 250 mcg tablet Active 1 TABLET PO DAILY November 24, 2023 1:00am Start: 11-24-2023 take 1 tablet by bryson th once daily Oeoguxnz-Xar-Gf-Lycopen-Lutein (Complete Mv Adult 50 Plus) 0.4 mg-300 mcg- 250 mcg tablet Active 1 TABLET PO DAILY November 24, 2023 12:00am Nirmatrelvir-Ritonavir (11 sources) Start: 07-08-2022 End: 08-28-2022 Nirmatrelvir-Ritonavir (Paxl ovid (Eua)) 300 mg (150 mg x 2)-100 mg tablets,dose pack Discontinued 0 PO .COMPLEX 30 0 July 07, 2022 11:00pm August 28, 2022 8:30am take TWO 150 mg tablets of nirmatrelvir with ONE 100 mg tablet of ritonavir twice daily for 5 days PO Start: 07-08-2022 End: 08-28-2022 Nirmatrelvir-Ritonavir (Paxl ovid (Eua)) 300 mg (150 mg x 2)-100 mg tablets,dose pack Discontinued 0 PO .COMPLEX 30 0 July 08, 2022 12:00am August 28, 2022 9:30am take TWO 150 mg tablets of nirmatrelvir with ONE 100 mg tablet of ritonavir twice daily for 5 days PO Start: 07-08-2022 End: 08-28-2022 Nirmatrelvir-Ritonavir (Paxl ovid (Eua)) 300 mg (150 mg x 2)-100 mg tablets,dose pack Discontinued 0 PO .COMPLEX July 07, 2022 11:00pm August 28, 2022 8:30am take TWO 150 mg tablets of nirmatrelvir with ONE 100 mg tablet of ritonavir twice daily for 5 days PO Start: 07-08-2022 End: 08-28-2022 Nirmatrelvir-Ritonavir (Paxl ovid (Eua)) 300 mg (150 mg x 2)-100 mg tablets,dose pack Discontinued 0 PO .COMPLEX July 08, 2022 12:00am August 28, 2022 9:30am take TWO 150 mg tablets of nirmatrelvir with ONE 100 mg tablet of ritonavir twice daily for 5 days PO Start: 07-08-2022 Nirmatrelvir-R itonavir (Paxlovid (Eua)) 300 mg (150 mg x 2)- 100 mg tablets,dose pack Active 0 PO .COMPLEX July 08, 2022 12:00am take TWO 150 mg tablets of nirmatrelvir with ONE 100 mg tablet of ritonavir twice daily for 5 days PO nitroglycerin 0.4 mg sublingual tablet (20 sources) Nitrate Vasodilator Start: 04-02-2016 End: 08-09-2024 Nitroglycerin (Nitrostat) 0.4 mg tablet, sublingual Discontinued 0.4 mg SL Q5M as needed for chest pain 60 3 July 05, 2019 3:18pm November 02, 2019 4:09pm Start: 02-16-2012 End: 05-11-2024 Nitroglycerin 0.4 mg tablet, sublingual Discontinued 0 .ROUTE .COMPLEX 75 1 June 03, 2023 2:09pm May 11, 2024 10:26am DISSOLVE 1 TABLET UNDER TONGUE EVERY 5 MINUTES NEEDED FOR CHEST PAIN Comment on above: Dissolve 1 tablet un chris the tongue as needed. IF NO PAIN RELIEF, CALL 911 OLANZapine 2.5 mg oral tablet (20 sources) Atypical Antipsychotic Start: 05-31-20 End: 05-16-20 take 1 tablet by mouth at bedtime Olanzapine 2.5 mg tablet Discontinued 2.5 mg PO AT BEDTIME June 03, 2024 11:00pm December 08, 2024 11:11pm 2 ml orphenadrine citrate 30 mg/ml injection (1 source) Muscle Relaxant Start: 04-30-20 End: 04-30-20 30 mg, intravenous, Once, On Wed04/30/24 at 1845, For 1 dose perflutren lipid microspheres (Definity) injection 10 mL of dilution (1 source) Start: 09-19-20 End: 09-19-20 10 mL of dilution, intravenous, Once in imaging, Starting on Wed09/19/24 at 1042, For 1 dose, Contrast - for use by imaging provider [...] line with 10 mL of Normal Saline. predniSONE 10 mg oral tablet (6 sources) Start: 02-07-20 End: 07-13-20 Prednisone 10 mg tablet Discontinued 10 mg PO As Directed 30 0 February 05, 2025 11:00pm July 13, 2025 9:06am see taper instructions: 5 tabs x 2 days, 4 tabs x 2 days, 3 tabs x 2 days, 2 tabs x 2 days, 1 tab x 2 days. Start: 11-12-2022 End: 11-21-2022 predniSONE (DELTASONE) 10 mg tablet Indications: Pain of left middle finger Take 4 tabs daily for 3 days, then 2 tabs daily for 3 days, then 1 tab daily for 3 days with food. 21 tablet 0 11/12/2022 11/21/2022 Active Comment on above: Take 4 tabs daily fo r 3 days, then 2 tabs daily for 3 days, then 1 tab daily for 3 days with food. 10 ml propofol 10 mg/ml injection (1 source) General Anesthetic Start: 4 End: 4 rosuvastatin calcium 20 mg oral tablet (20 sources) HMG-CoA Reductase Inhibitor Start: 7 End: 5 take 1 tablet by mouth once daily Rosuvastatin 20 mg tablet Discontinued 20 mg PO DAILY 90 3 March 03, 2024 2:52pm May 11, 2024 10:26am TAKE 1 TABLET BY MOUTH ONCE DAILY Comment on above: Take 1 tablet by bryson th daily at bedtime. sertraline 100 mg oral tablet (20 sources) Serotonin Reuptake Inhibitor Start: 3 End: 5 take 1 tablet by mouth once daily Sertraline 100 mg tablet Discontinued 100 mg PO daily 90 2 November 01, 2023 10:37am May 11, 2024 10:26am Start: 09-15-2022 End: 12-25-2022 take 1 tablet by mouth once daily Sertraline 50 mg tablet Discontinued 50 mg PO daily 30 2 November 02, 2022 1:08pm December 25, 2022 9:11am Comment on above: Take 50 mg by mouth once daily. spironolactone 25 mg oral tablet (20 sources) Aldosterone Antagonist Start: 11-29-2018 End: 05-23-2019 Spironolactone 25 mg tablet Discontinued 12.5 mg PO DAILY 30 1 March 22, 2019 9:55am May 23, 2019 8:59am Start: 11-29-2018 End: 05-23-2019 take 12.5 mg by mouth once daily Spironolactone Discontinued 12.5 MG PO DAILY March 22, 2019 10:55am May 23, 2019 9:59am take 1 tablet by bryson th once daily spironolactone (ALDACTONE) 25 mg tablet Take 25 mg by mouth once daily. Active Comment on above: Take 25 mg by mouth once daily. sucralfate 1000 mg oral tablet (20 sources) Aluminum Complex Start: 06-30-2019 End: 09-22-2019 take 1 tablet by mouth at bedtime Sucralfate 1 gram tablet Discontinued 1 g PO before meals and at bedtime 120 3 June 29, 2019 11:00pm September 22, 2019 9:22am Start: 05-17-2019 End: 06-23-2019 take 1 tablet by mouth at bedtime Sucralfate (Carafate) 1 gram tablet Discontinued 1 g PO before meals and at bedtime 120 30 0 May 22, 2019 11:00pm June 20, 2019 11:00pm June 22, 2019 11:07pm [id number] sodium (Draximage) injection 27.5 millicurie (1 source) Start: 02-23-2024 End: 02-23-2024 27.5 millicurie, intravenous, Once in imaging, Starting on Wed02/23/24 at 0905, For 1 dose, Administer 2 to 4 hours prior to imaging unless otherwise indicated. triamcinolone acetonide 0.94376 mg/mg topical ointment (20 sources) Corticosteroid Start: 06-20-2019 End: 12-22-2019 Triamcinolone Acetonide 0.025 % ointment Discontinued 1 NMA TOPICAL daily as needed June 20, 2019 10:11am December 22, 2019 8:55am Start: 02-22-2018 End: 12-22-2019 Triamcinolone Acetonide 0.02 5 % ointment Discontinued 1 NMA TOPICAL daily 80 2 February 21, 2018 11:00pm June 20, 2019 10:11am (2 sources) Start: 08-08-2024 End: 08-08-2024 Start: 08-08-2024 End: 08-08-2024 (1 source) Start: 08-08-2024 End: 08-08-2024 (1 source) Start: 08-07-2024 End: 08-07-2024 Problems Active Problems Problem Classification Problem Date Documented Da te Episodic/Chronic Acute cerebrovascular disease (10 sources) Cerebrovascular accident; Translations: [Cerebral infarction, unspecified] Onset: 4 12-01-2024 Chronic Acute myocardial infarction (6 sources) Myocardial infarction; Translations: [Non-ST elevation (NSTEMI) myocardial infarction] 06-14-2024 Chronic Allergic reactions (20 sources) Inflammatory dermatosis; Translations: [Dermatitis, unspecified] Onset: 4 02-22-2018 Episodic Anxiety disorders (20 sources) Mixed anxiety and depressive disorder; Translations: [Anxiety disorder, unspecified] Onset: 4 12-25-2022 Chronic Aortic; peripheral; and visceral artery aneurysms (20 sources) Aneurysm; Translations: [Abdominal aneurysm without mention of rupture] Onset: 9 11-09-2008 Chronic Cancer of breast (20 sources) Infiltrating duct carcinoma of breast; Translations: [Malignant neoplasm of unspecified site of unspecified female breast] Onset: 4 01-04-2024 Chronic Cancer of breast (6 sources) History of malignant neoplasm of breast; Translations: [Personal history of malignant neoplasm of breast] 05-07-2024 Episodic Cardiac dysrhythmias (20 sources) Atrial fibrillation; Translations: [Cardiac arrhythmia] Onset: 9 06-04-2020 Chronic Comment on above: recurrent Coagulation and hemorrhagic disorders (16 sources) Thrombocytopenic disorder; Translations: [Thrombocytopenia, unspecified] Onset: 4 Resolved: 5 12-01-2024 Chronic Conditions associated with dizziness or vertigo (11 sources) Dizziness; Translations: [Dizziness and giddiness] 04-05-2025 Episodic Conduction disorders (20 sources) Automatic implantable cardiac defibrillator in situ; Translations: [Presence of automatic (implantable) cardiac defibrillator] Onset: 1 06-04-2020 Chronic Comment on above: Lt dual-ICD [03/31/11 , sds]: GUIDANT TELIGEN E110 serial #[id number]. The RA lead is a Guidant, model 4470, serial #[id number]. The RV lead is a Guidant, model 0184, serial #[id number]. Congestive heart failure; nonhypertensive (20 sources) Congestive heart failure; Translations: [Heart failure, unspecified] Onset: 4 Resolved: 4 06-04-2020 Chronic Comment on above: diastolic LVEF 70% B Y 02/2012 STRESS NYHA CLASS II Coronary atherosclerosis and other heart disease (20 sources) Coronary atherosclerosis; Translations: [Coronary arteriosclerosis] Onset: 5 06-04-2020 Chronic Comment on above: status-post coronary artery bypass graft, status-post stents in 2009 with a staged procedure. On 03/14/2010 she had an angioplasty and stent to a very complex right coronary artery stenosis. The stent deployed was a promos type. On 04/07/2010 she had angioplasty and Promos stent deployed to the left circumflex artery. Distal RCA Promus stenting on 09/23/2010. ---In 2004 she had coronary artery bypass grafting, including FULLER to the LAD, SVG to the diagonal and SVG to the obtuse marginal. Also an aortic valve replacement using a Bovine bioprosthesis was done. A descending thoracic aortic aneurysm repair was also performed. All three of these procedures were done during the same hospitalization at [facility] in 2004. The patient had intraoperative ventricular fibrillation, postoperative congestive heart failure with LVEF of 15%, requiring intra-aortic balloon pump. Deficiency and other anemia (10 sources) Pancytopenia; Translations: [Other pancytopenia] 12-22-2024 Chronic Deficiency and other anemia (1 source) Other pancytopenia; Translations: [Other pancytopenia] Onset: 5 Chronic Deficiency and other anemia (20 sources) Anemia; Translations: [Anemia, unspecified] Onset: 4 06-07-2024 Episodic Diabetes mellitus without complication (20 sources) Prediabetes; Translations: [Prediabetes] Onset: 7 Episodic Diseases of white blood cells (20 sources) Neutropenia due to and following chemotherapy; Translations: [Agranulocytosis secondary to cancer chemotherapy] Onset: 4 04-19-2024 Chronic Disorders of lipid metabolism (20 sources) Mixed hyperlipidemia; Translations: [Hyperlipidemia] Onset: 9 06-04-2020 Chronic Esophageal disorders (20 sources) Gastroesophageal reflux disease; Translations: [Gastro-esophageal reflux disease without esophagitis] Onset: 4 06-04-2020 Chronic Essential hypertension (20 sources) Essential hypertension; Translations: [Hypertensive disorder] Onset: 7 Resolved: 6 06-04-2020 Chronic Fluid and electrolyte disorders (6 sources) Acute hyponatremia; Translations: [Hypo-osmolality and hyponatremia] 05-07-2024 Episodic Genitourinary symptoms and ill-defined conditions (20 sources) Urgent desire to urinate; Translations: [Urgency of urination] Onset: 4 Resolved: 5 04-18-2024 Episodic Headache; including migraine (20 sources) Headache; Translations: [Headache] Onset: 4 10-06-2018 Episodic Heart valve disorders (20 sources) History of aortic valve replacement; Translations: [Aortic valve disorder] Onset: 9 04-16-2022 Chronic Immunizations and screening for infectious disease (18 sources) Needs influenza immunization; Translations: [Encounter for immunization] Onset: 5 Episodic Maintenance chemotherapy; radiotherapy (20 sources) Patient encounter status; Translations: [Encounter for antineoplastic chemotherapy] Onset: 4 Resolved: 5 03-30-2024 Chronic Mood disorders (20 sources) Recurrent major depression; Translations: [Major depressive disorder, recurrent, unspecified] Onset: 4 09-15-2022 Chronic Noninfectious gastroenteritis (11 sources) Gastroenteritis; Translations: [Noninfective gastroenteritis and colitis, unspecified] Onset: 5 12-23-2024 Episodic Nonmalignant breast conditions (20 sources) Breast lump; Translations: [Unspecified lump in unspecified breast] Onset: 4 11-19-2023 Episodic Nonspecific chest pain (20 sources) Chest pain; Translations: [Other chest pain] Onset: 4 Resolved: 4 06-04-2020 Episodic Occlusion or stenosis of precerebral arteries (20 sources) Bilateral carotid artery stenosis; Translations: [Bilateral carotid artery occlusion] Onset: 4 Resolved: 4 06-04-2020 Chronic Open wounds of extremities (2 sources) Tear of skin; Translations: [Laceration without foreign body of unspecified forearm, initial encounter] 08-09-2025 Episodic Osteoarthritis (20 sources) Osteoarthritis; Translations: [Unspecified osteoarthritis, unspecified site] Onset: 4 05-27-2018 Chronic Other aftercare (2 sources) Drug therapy finding; Translations: [Encounter for therapeutic drug level monitoring] 02-09-2024 Episodic Other aftercare (1 source) Long-term current use of drug therapy; Translations: [Encounter for therapeutic drug level monitoring] 05-03-2025 Episodic Other and ill-defined cerebrovascular disease (9 sources) Acute ill-defined cerebrovascular disease Onset: 6 06-04-2020 Chronic Other and ill-defined cerebrovascular disease (20 sources) Cerebrovascular disease; Translations: [Other cerebrovascular disease] Onset: 4 04-18-2024 Chronic Other and unspecified benign neoplasm (20 sources) Pigmented skin lesion ; Translations: [Melanocytic nevi, unspecified] Onset: 3 03-29-2023 Episodic Other bone disease and musculoskeletal deformities (20 sources) Osteopenia; Translations: [Other specified disorders of bone density and structure, unspecified site] Onset: 7 02-22-2018 Episodic Other circulatory disease (8 sources) Vasculitis; Translations: [Arteritis, unspecified] 02-06-2025 Chronic Other circulatory disease (1 source) Arteritis, unspecified; Translations: [Arteritis, unspecified] Onset: 5 Chronic Other circulatory disease (2 sources) Presence of other vascular implants and grafts; Translations: [Presence of other vascular implants and grafts] Onset: 4 Chronic Other circulatory disease (20 sources) History of cerebrovascular accident; Translations: [Personal history of transient ischemic attack (TIA), and cerebral infarction without residual deficits] Onset: 4 11-23-2017 Episodic Other circulatory disease (3 sources) Other specified symptoms and signs involving the circulatory and respiratory systems; Translations: [Other symptoms involving cardiovascular system] Onset: 4 07-26-2024 Episodic Other connective tissue disease (11 sources) Triggering of digit; Translations: [Trigger finger, unspecified finger] 06-09-2021 Episodic Other connective tissue disease (2 sources) Pain in finger; Translations: [Pain in left finger(s)] Episodic Other connective tissue disease (1 source) Pain in left finger(s); Translations: [Pain of left middle finger] Onset: 3 Episodic Other connective tissue disease (16 sources) Rhabdomyolysis; Translations: [Rhabdomyolysis] Onset: 4 Resolved: 5 12-01-2024 Episodic Other connective tissue disease (6 sources) Intramuscular hematoma; Translations: [Nontraumatic hematoma of soft tissue] 06-14-2024 Episodic Other connective tissue disease (2 sources) Pain of left hand; Translations: [Pain in left hand] 05-19-2021 Episodic Other connective tissue disease (2 sources) Pain in right thumb; Translations: [Pain in right finger(s)] 04-22-2018 Episodic Other connective tissue disease (2 sources) Trigger finger of left hand; Translations: [Trigger finger, unspecified finger] 06-09-2021 Episodic Other gastrointestinal disorders (20 sources) Diarrhea; Translations: [Diarrhea, unspecified] Onset: 4 12-25-2022 Episodic Other gastrointestinal disorders (1 source) Diarrhea, unspecified; Translations: [Diarrhea] 12-25-2022 Episodic Other lower respiratory disease (3 sources) Shortness of breath; Translations: [Shortness of breath] Onset: 3 Episodic Other nervous system disorders (1 source) Acute postoperative pain; Translations: [Other acute postprocedural pain] 08-09-2024 Episodic Other nervous system disorders (2 sources) Poor balance; Translations: [Other abnormalities of gait and mobility] 07-31-2025 Episodic Other nervous system disorders (2 sources) Abnormal gait; Translations: [Unspecified abnormalities of gait and mobility] 07-31-2025 Episodic Other nervous system disorders (2 sources) Other abnormalities of gait and mobility; Translations: [Other abnormalities of gait and mobility] Onset: 5 Episodic Other nervous system disorders (2 sources) Unspecified abnormalities of gait and mobility; Translations: [Unspecified abnormalities of gait and mobility] Onset: 5 Episodic Other non-traumatic joint disorders (20 sources) Pain in left knee; Translations: [Left knee pain] Onset: 4 12-25-2022 Episodic Other non-traumatic joint disorders (9 sources) Pain in left shoulder; Translations: [Left shoulder pain] 11-14-2018 Episodic Other non-traumatic joint disorders (20 sources) Pain in right shoulder; Translations: [Right shoulder pain] Onset: 4 06-24-2018 Episodic Other nutritional; endocrine; and metabolic disorders (6 sources) Hyperbilirubinemia; Translations: [Other disorders of bilirubin metabolism] 06-14-2024 Chronic Other nutritional; endocrine; and metabolic disorders (2 sources) Difficulty maintaining weight loss 07-31-2025 Chronic Other nutritional; endocrine; and metabolic disorders (4 sources) Loss of appetite; Translations: [Anorexia] 07-13-2025 Episodic Other screening for suspected conditions (not mental disorders or infectious disease) (18 sources) Radiology result abnormal; Translations: [Abnormal findings on diagnostic imaging of other specified body structures] Onset: 7 11-18-2023 Chronic Other skin disorders (13 sources) H/O: breast problem; Translations: [Personal history of diseases of the skin and subcutaneous tissue] 11-23-2017 Episodic Other skin disorders (13 sources) Multiple skin tags; Translations: [Other hypertrophic disorders of the skin] 05-19-2021 Episodic Tamera-; endo-; and myocarditis; cardiomyopathy (except that caused by tuberculosis or sexually transmitted disease) (20 sources) Heart valve disorder; Translations: [Endocarditis, valve unspecified] Onset: 3 Resolved: 4 11-23-2017 Chronic Pneumonia (except that caused by tuberculosis or sexually transmitted disease) (6 sources) Pneumonia; Translations: [Pneumonia, unspecified organism] 10-02-2024 Episodic Residual codes; unclassified (20 sources) Insomnia; Translations: [Insomnia, unspecified] Onset: 7 10-30-2016 Episodic Residual codes; unclassified (6 sources) Insomnia, unspecified; Translations: [Insomnia, unspecified] Episodic Residual codes; unclassified (4 sources) H/O: chemotherapy; Translations: [Personal history of antineoplastic chemotherapy] 01-04-2025 Episodic Residual codes; unclassified (6 sources) H/O cardiac surgery; Translations: [Other specified postprocedural states] 09-01-2024 Episodic Residual codes; unclassified (1 source) Difficulty maintaining weight loss; Translations: [Other general symptoms and signs] 07-31-2025 Episodic Residual codes; unclassified (2 sources) Other general symptoms and signs; Translations: [Other general symptoms and signs] Onset: 5 Episodic Secondary malignancies (20 sources) Regional lymph node metastasis present ; Translations: [Secondary and unspecified malignant neoplasm of lymph node, unspecified] Onset: 4 01-04-2024 Chronic Secondary malignancies (1 source) Secondary and unspecified malignant neoplasm of lymph node, unspecified; Translations: [Secondary and unspecified malignant neoplasm of lymph nodes, site unspecified] 01-04-2024 Chronic Secondary malignancies (6 sources) Secondary malignant neoplasm of bone; Translations: [Secondary malignant neoplasm of bone] 02-03-2024 Chronic Secondary malignancies (2 sources) Secondary and unspecified malignant neoplasm of axilla and upper limb lymph nodes; Translations: [Secondary and unspecified malignant neoplasm of axilla and upper limb lymph nodes] Onset: 4 Chronic Spondylosis; intervertebral disc disorders; other back problems (20 sources) Lumbar spondylosis; Translations: [Spondylosis without myelopathy or radiculopathy, lumbar region] Onset: 4 06-28-2014 Chronic Spondylosis; intervertebral disc disorders; other back problems (20 sources) Lumbosacral neuritis; Translations: [Radiculopathy, lumbosacral region] Onset: 8 Resolved: 4 06-28-2014 Episodic Sprains and strains (6 sources) Sprain of other specified parts of right shoulder girdle, initial encounter; Translations: [Sprain of right trapezoid ligament] 05-07-2024 Episodic Unclassified (1 source) Aneurysm of the ascending aorta, without rupture (CMS-HCC); Translations: [Aneurysm of the ascending aorta, without rupture (CMS-HCC)] Onset: 4 Unclassified (3 sources) Appointment is with VANNESSA Ruiz Unclassified (2 sources) Long-term current use of drug therapy 05-03-2025 Unclassified (1 source) Aneurysm of the ascending aorta, without rupture; Translations: [Aneurysm of the ascending aorta, without rupture] Onset: 4 Past or Other Problems Problem Classification Problem Date Documented Date Episodic/Chronic Coronary atherosclerosis and other heart disease (2 sources) Presence of aortocoronary bypass graft; Translations: [Presence of aortocoronary bypass graft] Onset: 4 Episodic E Codes: Adverse effects of medical drugs (2 sources) Adverse effect of antineoplastic and immunosuppressive drugs, initial encounter; Translations: [Adverse effect of antineoplastic and immunosuppressive drugs, initial encounter] Onset: 4 Episodic Fever of unknown origin (1 source) Fever presenting with conditions classified elsewhere; Translations: [Fever presenting with conditions classified elsewhere] Onset: 5 Episodic Lymphadenitis (20 sources) Axillary lymphadenopathy; Translations: [Localized enlarged lymph nodes] Onset: 4 11-19-2023 Episodic Malaise and fatigue (20 sources) Fatigue due to chemotherapy; Translations: [Other fatigue] Onset: 4 04-19-2024 Episodic Nausea and vomiting (20 sources) Nausea; Translations: [Nausea] Onset: 4 04-19-2024 Episodic Other aftercare (4 sources) Encounter for therapeutic drug level monitoring; Translations: [Encounter for therapeutic drug level monitoring] Onset: 4 Episodic Other aftercare (2 sources) Other shelter (current) drug therapy; Translations: [Other shelter (current) drug therapy] Onset: 5 Episodic Other connective tissue disease (20 sources) Hand pain; Translations: [Pain in left hand] Onset: 4 05-19-2021 Episodic Other connective tissue disease (20 sources) Pain in thumb ; Translations: [Pain in right finger(s)] Onset: 4 04-22-2018 Episodic Other connective tissue disease (1 source) Plantar fasciitis; Translations: [Plantar fascial fibromatosis] Onset: 9 Resolved: 7 10-30-2016 Episodic Other connective tissue disease (1 source) Calcaneal spur; Translations: [Calcaneal spur, unspecified foot] Onset: 9 Resolved: 7 10-30-2016 Episodic Other lower respiratory disease (20 sources) Dyspnea on exertion; Translations: [Other forms of dyspnea] Onset: 4 11-29-2023 Episodic Other lower respiratory disease (2 sources) Other forms of dyspnea; Translations: [Other forms of dyspnea] Onset: 4 Episodic Other nervous system disorders (20 sources) Disorder of the peripheral nervous system; Translations: [Hereditary and idiopathic neuropathy, unspecified] Onset: 9 Resolved: 4 07-19-2009 Chronic Other non-traumatic joint disorders (18 sources) Shoulder pain; Translations: [Pain in left shoulder] Onset: 4 11-14-2018 Episodic Other screening for suspected conditions (not mental disorders or infectious disease) (20 sources) Mammography abnormal; Translations: [Other abnormal and inconclusive findings on diagnostic imaging of breast] Onset: 7 07-02-2007 Episodic Other upper respiratory disease (1 source) Allergic rhinitis; Translations: [Allergic rhinitis, unspecified] Onset: 1 Resolved: 7 10-30-2016 Chronic Other upper respiratory infections (20 sources) Acute pharyngitis, unspecified; Translations: [Acute pharyngitis] Onset: 4 Episodic Residual codes; unclassified (4 sources) Estrogen receptor negative neoplasm; Translations: [Estrogen receptor negative status [ER-]] Onset: 5 03-14-2024 Episodic Residual codes; unclassified (4 sources) Estrogen receptor positive status [ER+]; Translations: [Estrogen receptor positive status (ER+)] Onset: 4 Episodic Residual codes; unclassified (10 sources) Illness; Translations: [Illness, unspecified] Onset: 4 Resolved: 5 12-01-2024 Episodic Residual codes; unclassified (2 sources) Estrogen receptor negative status [ER-]; Translations: [Estrogen receptor negative status (ER-)] Onset: 5 Episodic Residual codes; unclassified (1 source) Other specified postprocedural states; Translations: [Other specified postprocedural states] Onset: 4 Episodic Residual codes; unclassified (2 sources) Personal history of antineoplastic chemotherapy; Translations: [Personal history of antineoplastic chemotherapy] Onset: 5 Episodic Superficial injury; contusion (1 source) Unspecified superficial injury of unspecified upper arm, initial encounter; Translations: [Unspecified superficial injury of unspecified upper arm, initial encounter] Onset: 5 Episodic Transient cerebral ischemia (20 sources) Transient cerebral ischemia; Translations: [Transient cerebral ischemic attack, unspecified] Onset: 4 Resolved: 4 06-04-2020 Chronic Unclassified (12 sources) 4 stents 05-07-2022 Comment on above: 2009 Unclassified (12 sources) cardiac rythem pacemaker 05-07-2022 Comment on above: 2010 Unclassified (12 sources) triple bypass, valve replacement, nad aneurysm repair 05-07-2022 Comment on above: 2004 Unclassified (20 sources) Onset: 4 Resolved: 5 06-28-2024 Unclassified (1 source) Aneurysm of the ascending aorta, without rupture (CMS-HCC); Translations: [Aneurysm of the ascending aorta, without rupture (CMS-HCC)] Onset: 4 Unclassified (9 sources) Malignant neoplasm of areola of breast in female, estrogen receptor negative, unspecified laterality 01-04-2025 Unclassified (7 sources) Patient encounter status 02-14-2025 Unclassified (1 source) Aneurysm of the ascending aorta, without rupture; Translations: [Aneurysm of the ascending aorta, without rupture] Onset: 5 Results Test Name Value Interpretation Reference Range Facility CBC W Auto Differential pane l (Bld)on 08-09-2025 Basophils (Bld) [#/Vol] 0.01 x10*3/uL Normal 0.00-0.10 [facility] Comment on above: Performed By: #### 5 7021-8 ####RUEL Yi ([id number])[facility] ([facility])[address] [place] [id number] Basophils/100 WBC (Bld) 0.2 % Normal 0.0-2.0 [facility] Comment on above: Performed By: #### 5 7021-8 ####RUEL Yi ([id number])[facility] ([facility])[address] [place] [address] 70185 Eosinophils (Bld) [#/Vol] 0.05 x10*3/uL Normal 0.00-0. 40 [facility] Comment on above: Performed By: #### 5 7021-8 ####RUEL Yi ([id number])[facility] ([facility])[address] [place] [address] [id number] Eosinophils/100 WBC (Bld) 1.0 % Normal 0.0-6.0 [facility] Comment on above: Performed By: #### 5 7021-8 ####RUEL Yi ([id number])[facility] ([facility])[address] [place] [address] 20856 Erythrocyte distribution width (RBC) [Ratio] 16.3 % High 11.5-14.5 [facility] Comment on above: Performed By: #### 5 7021-8 ####RUEL Yi ([id number])[facility] ([facility])[address] [place] [address] Hematocrit (Bld) [Volume fraction] 29.8 % Low 36.0-46.0 [facility] Comment on above: Performed By: #### 5 7021-8 ####RUEL Yi ([id number])[facility] ([facility])[address] [place] [address] Hemoglobin (Bld) [Mass/Vol] 9.7 g/dL Low 12.0-16.0 [facility] Comment on above: Performed By: #### 5 7021-8 ####RUEL Yi ([id number])[facility] ([facility])[address] [place] [address] Immature granulocytes (Bld) [#/Vol] 0.01 x10*3/uL Normal 0.00-0.50 [facility] Comment on above: Performed By: #### 5 7021-8 ####RUEL Yi ([id number])[facility] ([facility])[address] [place] [address] Immature granulocytes/100 WBC (Bld) 0.2 % Normal 0.0-0.9 [facility] Comment on above: Result Comment: Krystle ture Granulocyte Count (IG) includes promyelocytes, myelocytes and metamyelocytes but does not include bands. Percent differential counts (%) should be interpreted in the context of the absolute cell counts (cells/UL). Performed By: #### 5 7021-8 ####RUEL Yi ([id number])[facility] ([facility])[address] [place] [address] Lymphocytes (Bld) [#/Vol] 0.99 x10*3/uL Normal 0.80-3. 00 [facility] Comment on above: Performed By: #### 5 7021-8 ####RUEL Yi ([id number])[facility] ([facility])[address] [place] [address] 26032 Lymphocytes/100 WBC (Bld) 19.6 % Normal 13.0-44.0 [facility] Comment on above: Performed By: #### 5 7021-8 ####RUEL Yi ([id number])[facility] ([facility])[address] [place] [address] [id number] MCH (RBC) [Entitic mass] 33.0 pg Normal 26.0-34.0 [facility] Comment on above: Performed By: #### 5 7021-8 ####RUEL Yi ([id number])[facility] ([facility])[address] [place] [address] 16665 MCHC (RBC) [Mass/Vol] 32.6 g/dL Normal 32.0-36.0 [facility] Comment on above: Performed By: #### 5 7021-8 ####RUEL Yi ([id number])[facility] ([facility])[address] [place] [address] 68961 MCV (RBC) [Entitic vol] 101 fL High 80-100 [facility] Comment on above: Performed By: #### 5 7021-8 ####RUEL Yi ([id number])[facility] ([facility])[address] [place] [address] 99230 Monocytes (Bld) [#/Vol] 0.50 x10*3/uL Normal 0.05-0.80 [facility] Comment on above: Performed By: #### 5 7021-8 ####RUEL Yi ([id number])[facility] ([facility])[address] [place] [address] 23632 Monocytes/100 WBC (Bld) 9.9 % Normal 2.0-10.0 [facility] Comment on above: Performed By: #### 5 7021-8 ####RUEL Yi ([id number])[facility] ([facility])[address] [place] [address] 76004 Neutrophils (Bld) [#/Vol] 3.48 x10*3/uL Normal 1.60-5. 50 [facility] Comment on above: Result Comment: Perc ent differential counts (%) should be interpreted in the context of the absolute cell counts (cells/uL). Performed By: #### 5 7021-8 ####RUEL Yi ([id number])[facility] ([facility])[address] [place] [address] 73926 Neutrophils/100 WBC (Bld) 69.1 % Normal 40.0-80.0 [facility] Comment on above: Performed By: #### 5 7021-8 ####RUEL Yi ([id number])[facility] ([facility])[address] [place] [address] 65675 Platelets (Bld) [#/Vol] 121 x10*3/uL Low 150-450 [facility] Comment on above: Performed By: #### 5 7021-8 ####RUEL Yi ([id number])[facility] ([facility])[address] [place] [address] 83654 RBC (Bld) [#/Vol] 2.94 x10*6/uL Low 4.00-5.20 [facility] Comment on above: Performed By: #### 5 7021-8 ####RUEL Yi ([id number])[facility] ([facility])[address] [place] [address] 97835 WBC (Bld) [#/Vol] 5.0 x10*3/uL Normal 4.4-11.3 [facility] Comment on above: Performed By: #### 5 7021-8 ####RUEL Yi ([id number])[facility] ([facility])[address] [place] [address] 01410 Cancer Ag 27-29on 08-09-2025 Cancer Ag 27-29 Qn 39.2 [arb'U]/mL High 0.0-38.6 [facility] Comment on above: Order Comment: CA 27 .29 testing is performed by chemiluminescent immunoassay using the Entegrion. Values obtained with different analytic methods cannot be used interchangeably.Serum CA 27.29 measurement is intended for use as an aid in monitoring patients previously treated for Stage II or Stage III breast cancer. This assay is not intended for creening or diagnosis of cancer in the general population. The results must not be used as the sole means for clinical diagnosis or patient management decisions. Performed By: #### 1 7842-6 ####DIANE Nick ([id number])[facility] ([facility])[address] [place] [address] Comprehensive metabolic 2000 panelon 08-09-2025 Albumin BCP dye [Mass/Vol] 3.5 g/dL Normal 3.4-5.0 [facility] Comment on above: Performed By: #### 2 4323-8 ####DIANE Nick ([id number])[facility] ([facility])[address] [place] [address] 03006 ALP [Catalytic activity/Vol] 111 U/L Normal 33-136 [facility] Comment on above: Performed By: #### 2 4323-8 ####DIANE Nick ([id number])[facility] ([facility])[address] [place] [address] ALT With P-5'-P [Catalytic activity/Vol] 10 U/L Normal 7-45 [facility] Comment on above: Result Comment: Maria E ents treated with Sulfasalazine may generate falsely decreased results for ALT. Performed By: #### 2 4323-8 ####DIANE Nick ([id number])[facility] ([facility])[address] [place] [address] Anion gap [Moles/Vol] 12 mmol/L Normal 10-20 [facility] Comment on above: Performed By: #### 2 4323-8 ####DIANE Nick ([id number])[facility] ([facility])[address] [place] [address] AST With P-5'-P [Catalytic activity/Vol] 21 U/L Normal 9-39 [facility] Comment on above: Performed By: #### 2 4323-8 ####DIANE Nick ([id number])[facility] ([facility])[address] [place] [address] Bilirubin [Mass/Vol] 0.6 mg/dL Normal 0.0-1.2 [facility] Comment on above: Performed By: #### 2 4323-8 ####DIANE MOCTEZUMA L ([id number])[facility] ([facility])[address] [place] [address] Calcium [Mass/Vol] 8.3 mg/dL Low 8.6-10.6 [facility] Comment on above: Performed By: #### 2 4323-8 ####DIANE MOCTEZUMA L ([id number])[facility] ([facility])[address] [place] [address] Chloride [Moles/Vol] 101 mmol/L Normal 98-107 [facility] Comment on above: Performed By: #### 2 4323-8 ####DIANE MOCTEZUMA L ([id number])[facility] ([facility])[address] [place] [address] CO2 [Moles/Vol] 29 mmol/L Normal 21-32 [facility] Comment on above: Performed By: #### 2 4323-8 ####DIANE MOCTEZUMA L ([id number])[facility] ([facility])[address] [place] [address] Creatinine [Mass/Vol] 0.77 mg/dL Normal 0.50-1.05 [facility] Comment on above: Performed By: #### 2 4323-8 ####DIANE MANDUJANOER L ([id number])[facility] ([facility])[address] [place] [address] Glomerular filtration rate 83 mL/min/1.73m*2 Normal >60 [facility] Comment on above: Result Comment: Calc ulations of estimated GFR are performed using the 2020 CKD-EPI Study Refit equation without the race variable for the IDMS-Traceable creatinine methods.https://jasn.asnjournals.org/content/2 2/ASN.3610558970 Performed By: #### 2 4323-8 ####DIANE Nick ([id number])[facility] ([facility])[address] [place] [address] Glucose [Mass/Vol] 85 mg/dL Normal 74-99 [facility] Comment on above: Performed By: #### 2 4323-8 ####DIANE Nick ([id number])[facility] ([facility])[address] [place] [address] Potassium [Moles/Vol] 4.3 mmol/L Normal 3.5-5.3 [facility] Comment on above: Performed By: #### 2 4323-8 ####DIANE Nick ([id number])[facility] ([facility])[address] [place] [address] Protein [Mass/Vol] 6.0 g/dL Low 6.4-8.2 [facility] Comment on above: Performed By: #### 2 4323-8 ####DIANE Nick ([id number])[facility] ([facility])[address] [place] [address] Sodium [Moles/Vol] 138 mmol/L Normal 136-145 [facility] Comment on above: Performed By: #### 2 4323-8 ####DIANE MOCTEZUMA L ([id number])[facility] ([facility])[address] [place] [address] Urea nitrogen [Mass/Vol] 20 mg/dL Normal 6-23 [facility] Comment on above: Performed By: #### 2 4323-8 ####DIANE MOCTEZUMA L ([id number])[facility] ([facility])[address] [place] [address] Internal Medicine Office Vis david 08-07-2025 Internal Medicine Office Visit [facility] Internal Medicine [address] [place], [place] [address] OFFICE VISIT Date of Service: 08/07/25 MR#: [id number] Acct: [id number] Name: ZORA NIXON Rep #: [id number] : 1955 Provider: GEORGIANA ramirez Age/Sex: 70/F [place] [facility] [place] Status: Signed Intake Vital Signs 07/13/25 10:04 [...] Reasons: Fall Chief Complaint: fu from fall Sinter Feeder Required: No Accompanied by: Self Is patient in pain?: No Allergies No Known Allergies Allergy (Verified 08/07/25 14:48) Medications ???Medication ???Instructions ???Recorded ???Confirmed ???Type aspirin 81 mg chewable tablet 81 mg PO DAILY 11/23/17 08/07/25 H istory melatonin 10 mg capsule 10 mg PO HS PRN sleep 11/23/17 History calcium carbonate 600 mg PO BID 06/30/18 08/07/25 Hi story nitroglycerin 0.4 mg sublingual See Rx Instructions .Route 4 08/07/25 Rx tablet .COMPLEX #75 tabs handicap placard #1 ea 09/01/24 08/07/25 Rx cholecalciferol (vitamin D3) 50 50 mcg PO DAILY 12/08/24 08/07/25 History mcg (2,000 unit) capsule (Vitamin D3) sotalol 80 mg tablet (Betapace) 80 mg PO DAILY 12/08/24 08/07/25 H istory sertraline 100 mg tablet 100 mg PO QDAY #90 tabs 04/30/25 1 Rx amlodipine 10 mg tablet 10 mg PO QDAY #90 tabs 05/07/25 Rx lisinopril 40 mg tablet 40 mg PO DAILY #90 tabs 05/07/25 1 Rx pantoprazole 40 mg tablet,delayed 40 mg PO BID #180 tabs 05/07/25 1 Rx release rosuvastatin 20 mg tablet 20 mg PO DAILY #90 tabs 05/07/25 1 Rx Handicap Placard #1 ea 07/13/25 08/07/25 Rx trazodone 100 mg tablet 100 mg PO QHS PRN insomnia #90 tab s 07/30/25 08/07/25 Rx mupirocin 2 % topical ointment 1 applic topical BID #15 grams 08/07/25 Rx (Centany) Have you fallen in the past year?: Yes Nurse's Note: left and right arm skin tears stings at times [facility] Medical History Breast cancer Anorexia Neutropenic fever Gastroenteritis Breast cancer metastasized to axillary lymph node Nontraumatic psoas hematoma Hyperbilirubinemia Severe anemia Non-ST elevation [place] (NSTEMI) Rhabdomyolysis Thrombocytopenia CAD (coronary artery disease) Chronic pain Atrial fibrillation ICD (implantable cardioverter-defibrill ator) in place Urinary urgency Metastasis to bone [...] HPI Chief Complaint: fu from fall Details: ZORA NIXON, is a 70 F who presents to the office today for evaluation of skin tears after fall. Patient states a couple days ago she fell when she tripped over a bag of dog food. She denies lightheadedness or dizziness or unsteady footing as cause of fall. She states she reached out as she was falling and her skin on her arms which is very thin developed skin tears on both forearms. She has been using Neosporin as well as gauze and Jennifer wrap dressings. She states she has a friend that is a [employer]EL[employer] that comes and checks on them. She has had no fever or chills. Denies any d (more content not included)... Normal [facility] CBC W Auto Differential pane l (Bld)on 07-17-2025 Basophils (Bld) [#/Vol] 0.01 x10*3/uL Normal 0.00-0.10 [facility] Comment on above: Performed By: #### 5 7021-8 ####RUEL Yi ([id number])[facility] ([facility])[address] [place] [address] 97934 Basophils/100 WBC (Bld) 0.2 % Normal 0.0-2.0 [facility] Comment on above: Performed By: #### 5 7021-8 ####RUEL Yi ([id number])[facility] ([facility])[address] [place] [address] 62936 Eosinophils (Bld) [#/Vol] 0.08 x10*3/uL Normal 0.00-0. 40 [facility] Comment on above: Performed By: #### 5 7021-8 ####RUEL Yi ([id number])[facility] ([facility])[address] [place] [address] 75892 Eosinophils/100 WBC (Bld) 1.7 % Normal 0.0-6.0 [facility] Comment on above: Performed By: #### 5 7021-8 ####RUEL Yi ([id number])[facility] ([facility])[address] [place] [address] 11343 Erythrocyte distribution width (RBC) [Ratio] 16.2 % High 11.5-14.5 [facility] Comment on above: Performed By: #### 5 7021-8 ####RUEL Yi ([id number])[facility] ([facility])[address] [place] [address] 86942 Hematocrit (Bld) [Volume fraction] 29.5 % Low 36.0-46.0 [facility] Comment on above: Performed By: #### 5 7021-8 ####RUEL Yi ([id number])[facility] ([facility])[address] [place] [address] Hemoglobin (Bld) [Mass/Vol] 9.7 g/dL Low 12.0-16.0 [facility] Comment on above: Performed By: #### 5 7021-8 ####RUEL Yi ([id number])[facility] ([facility])[address] [place] [address] Immature granulocytes (Bld) [#/Vol] 0.02 x10*3/uL Normal 0.00-0.50 [facility] Comment on above: Performed By: #### 5 7021-8 ####RUEL Yi ([id number])[facility] ([facility])[address] [place] [address] Immature granulocytes/100 WBC (Bld) 0.4 % Normal 0.0-0.9 [facility] Comment on above: Result Comment: Krystle ture Granulocyte Count (IG) includes promyelocytes, myelocytes and metamyelocytes but does not include bands. Percent differential counts (%) should be interpreted in the context of the absolute cell counts (cells/UL). Performed By: #### 5 7021-8 ####RUEL Yi ([id number])[facility] ([facility])[address] [place], [place] [address] Lymphocytes (Bld) [#/Vol] 1.11 x10*3/uL Normal 0.80-3. 00 [facility] Comment on above: Performed By: #### 5 7021-8 ####RUEL Yi ([id number])[facility] ([facility])[address] [place] [address] 37275 Lymphocytes/100 WBC (Bld) 23.8 % Normal 13.0-44.0 [facility] Comment on above: Performed By: #### 5 7021-8 ####RUEL Yi ([id number])[facility] ([facility])[address] [place] [address] 44047 MCH (RBC) [Entitic mass] 33.0 pg Normal 26.0-34.0 [facility] Comment on above: Performed By: #### 5 7021-8 ####RUEL Yi ([id number])[facility] ([facility])[address] [place] [address] 74706 MCHC (RBC) [Mass/Vol] 32.9 g/dL Normal 32.0-36.0 [facility] Comment on above: Performed By: #### 5 7021-8 ####RUEL Yi ([id number])[facility] ([facility])[address] [place] [address] 29104 MCV (RBC) [Entitic vol] 100 fL Normal 80-100 [facility] Comment on above: Performed By: #### 5 7021-8 ####RUEL Yi ([id number])[facility] ([facility])[address] [place] [address] 66335 Monocytes (Bld) [#/Vol] 0.44 x10*3/uL Normal 0.05-0.80 [facility] Comment on above: Performed By: #### 5 7021-8 ####RUEL Yi ([id number])[facility] ([facility])[address] [place] [address] 16448 Monocytes/100 WBC (Bld) 9.4 % Normal 2.0-10.0 [facility] Comment on above: Performed By: #### 5 7021-8 ####RUEL Yi ([id number])[facility] ([facility])[address] [place] [address] 59832 Neutrophils (Bld) [#/Vol] 3.00 x10*3/uL Normal 1.60-5. 50 [facility] Comment on above: Result Comment: Perc ent differential counts (%) should be interpreted in the context of the absolute cell counts (cells/uL). Performed By: #### 5 7021-8 ####RUEL Yi ([id number])[facility] ([facility])[address] [place] [address] 63642 Neutrophils/100 WBC (Bld) 64.5 % Normal 40.0-80.0 [facility] Comment on above: Performed By: #### 5 7021-8 ####RUEL Yi ([id number])[facility] ([facility])[address] [place] [address] 84474 Platelets (Bld) [#/Vol] 140 x10*3/uL Low 150-450 [facility] Comment on above: Performed By: #### 5 7021-8 ####RUEL Yi ([id number])[facility] ([facility])[address] [place] [address] 80533 RBC (Bld) [#/Vol] 2.94 x10*6/uL Low 4.00-5.20 [facility] Comment on above: Performed By: #### 5 7021-8 ####RUEL Yi ([id number])[facility] ([facility])[address] [place] [address] 06430 WBC (Bld) [#/Vol] 4.7 x10*3/uL Normal 4.4-11.3 [facility] Comment on above: Performed By: #### 5 7021-8 ####RUEL Yi ([id number])[facility] ([facility])[address] [place] [address] 76247 Cancer Ag 27-29on 07-17-2025 Cancer Ag 27-29 Qn 30.5 [arb'U]/mL Normal 0.0-38.6 [facility] Comment on above: Order Comment: CA 27 .29 testing is performed by chemiluminescent immunoassay using the Entegrion. Values obtained with different analytic methods cannot be used interchangeably.Serum CA 27.29 measurement is intended for use as an aid in monitoring patients previously treated for Stage II or Stage III breast cancer. This assay is not intended for creening or diagnosis of cancer in the general population. The results must not be used as the sole means for clinical diagnosis or patient management decisions. Performed By: #### 1 7842-6 ####DIANE Nick ([id number])[facility] ([facility])[address] [place] [address] Comprehensive metabolic 2000 panelon 07-17-2025 Albumin BCP dye [Mass/Vol] 3.6 g/dL Normal 3.4-5.0 [facility] Comment on above: Performed By: #### 2 4323-8 ####DIANE Nick ([id number])[facility] ([facility])[address] [place] [address] ALP [Catalytic activity/Vol] 121 U/L Normal 33-136 [facility] Comment on above: Performed By: #### 2 4323-8 ####DIANE Nick ([id number])[facility] ([facility])[address] [place] [address] ALT With P-5'-P [Catalytic activity/Vol] 12 U/L Normal 7-45 [facility] Comment on above: Result Comment: Maria E ents treated with Sulfasalazine may generate falsely decreased results for ALT. Performed By: #### 2 4323-8 ####DIANE Nick ([id number])[facility] ([facility])[address] [place] [address] Anion gap [Moles/Vol] 10 mmol/L Normal 10-20 [facility] Comment on above: Performed By: #### 2 4323-8 ####DIANE Nick ([id number])[facility] ([facility])[address] [place] [address] AST With P-5'-P [Catalytic activity/Vol] 21 U/L Normal 9-39 [facility] Comment on above: Performed By: #### 2 4323-8 ####DIANE MOCTEZUMA L ([id number])[facility] ([facility])[address] [place] [address] Bilirubin [Mass/Vol] 0.7 mg/dL Normal 0.0-1.2 [facility] Comment on above: Performed By: #### 2 4323-8 ####DIANE MOCTEZUMA L ([id number])[facility] ([facility])[address] [place] [address] Calcium [Mass/Vol] 8.0 mg/dL Low 8.6-10.6 [facility] Comment on above: Performed By: #### 2 4323-8 ####DIANE MANDUJANOER L ([id number])[facility] ([facility])[address] [place] [address] Chloride [Moles/Vol] 102 mmol/L Normal 98-107 [facility] Comment on above: Performed By: #### 2 4323-8 ####DIANE MOCTEZUMA L ([id number])[facility] ([facility])[address] [place] [address] CO2 [Moles/Vol] 31 mmol/L Normal 21-32 [facility] Comment on above: Performed By: #### 2 4323-8 ####DIANE CABRALMOTZER L ([id number])[facility] ([facility])[address] [place] [address] Creatinine [Mass/Vol] 0.70 mg/dL Normal 0.50-1.05 [facility] Comment on above: Performed By: #### 2 4323-8 ####DIANE CABRALMOTZER L ([id number])[facility] ([facility])[address] [place] [address] Glomerular filtration rate >90 Normal >60 [facility] Comment on above: Result Comment: Calc ulations of estimated GFR are performed using the 2020 CKD-EPI Study Refit equation without the race variable for the IDMS-Traceable creatinine methods.https://jasn.asnjournals.org/content/early2 2/ASN.8921637763 Performed By: #### 2 4323-8 ####DIANE Nick ([id number])[facility] ([facility])[address] [place] [address] Glucose [Mass/Vol] 147 mg/dL High 74-99 [facility] Comment on above: Performed By: #### 2 4323-8 ####DIANE Nick ([id number])[facility] ([facility])[address] [place] [address] Potassium [Moles/Vol] 3.2 mmol/L Low 3.5-5.3 [facility] Comment on above: Performed By: #### 2 4323-8 ####DIANE Nick ([id number])[facility] ([facility])[address] [place] [address] Protein [Mass/Vol] 5.8 g/dL Low 6.4-8.2 [facility] Comment on above: Performed By: #### 2 4323-8 ####DIANE MOCTEZUMA L ([id number])[facility] ([facility])[address] [place] [address] Sodium [Moles/Vol] 140 mmol/L Normal 136-145 [facility] Comment on above: Performed By: #### 2 4323-8 ####DIANE MOCTEZUMA L ([id number])[facility] ([facility])[address] [place] [address] Urea nitrogen [Mass/Vol] 13 mg/dL Normal 6-23 [facility] Comment on above: Performed By: #### 2 4323-8 ####DIANE MOCTEZUMA L ([id number])[facility] ([facility])[address] [place] [address] Internal Medicine Office Vis david 07-13-2025 Internal Medicine Office Visit [facility] Internal Medicine [address] [place], [place] [address] OFFICE VISIT Date of Service: 07/13/25 MR#: [id number] Acct: [id number] Name: ZORA NIXON Rep #: [id number] : 1955 Provider: Dr. Daniela phillip MD Age/Sex: 70/F [place] [facility] [place] Status: Signed Intake Vital Signs 04/18/25 16:20 [...] 1 YR Chief Complaint: Follow-up chronic conditions Sinter Feeder Required: No Accompanied by: Self Is patient in pain?: No Allergies No Known Allergies Allergy (Verified 07/13/25 10:01) Medications ???Medication ???Instructions ???Recorded ???Confirmed ???Type aspirin 81 mg chewable tablet 81 mg PO DAILY 11/23/17 07/13/25 H istory melatonin 10 mg capsule 10 mg PO HS PRN sleep 11/23/17 History calcium carbonate 600 mg PO BID 06/30/18 07/13/25 Hi story nitroglycerin 0.4 mg sublingual See Rx Instructions .Route 4 07/13/25 Rx tablet .COMPLEX #75 tabs handicap placard #1 ea 09/01/24 07/13/25 Rx cholecalciferol (vitamin D3) 50 50 mcg PO DAILY 12/08/24 07/13/25 History mcg (2,000 unit) capsule (Vitamin D3) sotalol 80 mg tablet (Betapace) 80 mg PO DAILY 12/08/24 07/13/25 H istory trazodone 100 mg tablet 100 mg PO QHS PRN insomnia #90 tab s 02/19/25 07/13/25 Rx sertraline 100 mg tablet 100 mg PO QDAY #90 tabs 04/30/25 0 07/13/25 Rx amlodipine 10 mg tablet 10 mg PO QDAY #90 tabs 05/07/25 Rx lisinopril 40 mg tablet 40 mg PO DAILY #90 tabs 05/07/25 0 07/13/25 Rx pantoprazole 40 mg tablet,delayed 40 mg PO BID #180 tabs 05/07/25 0 07/13/25 Rx release rosuvastatin 20 mg tablet 20 mg PO DAILY #90 tabs 05/07/25 0 07/13/25 Rx Have you fallen in the past year?: No Nurse's Note: yearly visit flu shot request [facility] Medical History (Updated 07/13/25 @ 11:[address] Daniela Fallon MD) Breast cancer Anorexia Neutropenic fever Gastroenteritis Breast cancer metastasized to axillary lymph node Nontraumatic psoas hematoma Hyperbilirubinemia Severe anemia Non-ST elevation [place] (NSTEMI) Rhabdomyolysis Thrombocytopenia CAD (coronary artery disease) Chronic pain Atrial fibrillation ICD (implantable cardioverter-defibrill ator) in place Urinary urgency Metastasis to bone [...] HPI Chief Complaint: Follow-up chronic conditions Details: ZORA NIXON, is a 70-year-old female presenting for [...] She had an appointment scheduled with a risk control product liability director at a [facility] but had to cancel due to illness. She plans to reschedule In terms of mood, the patient experiences intermittent depression but feels that her current dose of Zoloft is beneficial. She is also on trazodone 100 mg nightly as needed wh (more content not included)... Normal [facility] CBC W Auto Differential pane l (Bld)on 06-26-2025 Basophils (Bld) [#/Vol] 0.03 x10*3/uL Normal 0.00-0.10 [facility] Comment on above: Performed By: #### 5 7021-8 ####RUEL Yi ([id number])[facility] ([facility])[address] [place] [address] 33954 Basophils/100 WBC (Bld) 0.6 % Normal 0.0-2.0 [facility] Comment on above: Performed By: #### 5 7021-8 ####RUEL Yi ([id number])[facility] ([facility])[address] [place] [address] 89623 Eosinophils (Bld) [#/Vol] 0.09 x10*3/uL Normal 0.00-0. 40 [facility] Comment on above: Performed By: #### 5 7021-8 ####RUEL Yi ([id number])[facility] ([facility])[address] [place] [address] 00216 Eosinophils/100 WBC (Bld) 1.7 % Normal 0.0-6.0 [facility] Comment on above: Performed By: #### 5 7021-8 ####RUEL Yi ([id number])[facility] ([facility])[address] [place] [address] 25402 Erythrocyte distribution width (RBC) [Ratio] 16.6 % High 11.5-14.5 [facility] Comment on above: Performed By: #### 5 7021-8 ####RUEL Yi ([id number])[facility] ([facility])[address] [place] [address] 92216 Hematocrit (Bld) [Volume fraction] 31.3 % Low 36.0-46.0 [facility] Comment on above: Performed By: #### 5 7021-8 ####RUEL Yi ([id number])[facility] ([facility])[address] [place] [address] 64491 Hemoglobin (Bld) [Mass/Vol] 10.1 g/dL Low 12.0-16.0 [facility] Comment on above: Performed By: #### 5 7021-8 ####RUEL Yi ([id number])[facility] ([facility])[address] [place] [address] 48258 Immature granulocytes (Bld) [#/Vol] 0.01 x10*3/uL Normal 0.00-0.50 [facility] Comment on above: Performed By: #### 5 7021-8 ####RUEL Yi ([id number])[facility] ([facility])[address] [place] [address] 62869 Immature granulocytes/100 WBC (Bld) 0.2 % Normal 0.0-0.9 [facility] Comment on above: Result Comment: Krystle ture Granulocyte Count (IG) includes promyelocytes, myelocytes and metamyelocytes but does not include bands. Percent differential counts (%) should be interpreted in the context of the absolute cell counts (cells/UL). Performed By: #### 5 7021-8 ####RUEL Yi ([id number])[facility] ([facility])[address] [place] [address] 25386 Lymphocytes (Bld) [#/Vol] 1.35 x10*3/uL Normal 0.80-3. 00 [facility] Comment on above: Performed By: #### 5 7021-8 ####RUEL Yi ([id number])[facility] ([facility])[address] [place] [address] 20175 Lymphocytes/100 WBC (Bld) 25.9 % Normal 13.0-44.0 [facility] Comment on above: Performed By: #### 5 7021-8 ####RUEL Yi ([id number])[facility] ([facility])[address] [place] [address] 46382 MCH (RBC) [Entitic mass] 32.3 pg Normal 26.0-34.0 [facility] Comment on above: Performed By: #### 5 7021-8 ####RUEL Yi ([id number])[facility] ([facility])[address] [place] [address] MCHC (RBC) [Mass/Vol] 32.3 g/dL Normal 32.0-36.0 [facility] Comment on above: Performed By: #### 5 7021-8 ####RUEL Yi ([id number])[facility] ([facility])[address] [place] [address] MCV (RBC) [Entitic vol] 100 fL Normal 80-100 [facility] Comment on above: Performed By: #### 5 7021-8 ####RUEL Yi ([id number])[facility] ([facility])[address] [place] [address] 41050 Monocytes (Bld) [#/Vol] 0.45 x10*3/uL Normal 0.05-0.80 [facility] Comment on above: Performed By: #### 5 7021-8 ####RUEL Yi ([id number])[facility] ([facility])[address] [place] [address] 54763 Monocytes/100 WBC (Bld) 8.6 % Normal 2.0-10.0 [facility] Comment on above: Performed By: #### 5 7021-8 ####RUEL Yi ([id number])[facility] ([facility])[address] [place], [place] [id number] Neutrophils (Bld) [#/Vol] 3.29 x10*3/uL Normal 1.60-5. 50 [facility] Comment on above: Result Comment: Perc ent differential counts (%) should be interpreted in the context of the absolute cell counts (cells/uL). Performed By: #### 5 7021-8 ####RUEL Yi ([id number])[facility] ([facility])[address] [place] [address] 42641 Neutrophils/100 WBC (Bld) 63.0 % Normal 40.0-80.0 [facility] Comment on above: Performed By: #### 5 7021-8 ####RUEL iY ([id number])[facility] ([facility])[address] [place] [address] 10924 Platelets (Bld) [#/Vol] 164 x10*3/uL Normal 150-450 [facility] Comment on above: Performed By: #### 5 7021-8 ####RUEL Yi ([id number])[facility] ([facility])[address] [place] [address] 64366 RBC (Bld) [#/Vol] 3.13 x10*6/uL Low 4.00-5.20 [facility] Comment on above: Performed By: #### 5 7021-8 ####RUEL Yi ([id number])[facility] ([facility])[address] [place] [address] 06089 WBC (Bld) [#/Vol] 5.2 x10*3/uL Normal 4.4-11.3 [facility] Comment on above: Performed By: #### 5 7021-8 ####RUEL Yi ([id number])[facility] ([facility])[address] [place] [address] 08706 Cancer Ag 27-29on 06-26-2025 Cancer Ag 27-29 Qn 35.8 [arb'U]/mL Normal 0.0-38.6 [facility] Comment on above: Order Comment: CA 27 .29 testing is performed by chemiluminescent immunoassay using the Entegrion. Values obtained with different analytic methods cannot be used interchangeably.Serum CA 27.29 measurement is intended for use as an aid in monitoring patients previously treated for Stage II or Stage III breast cancer. This assay is not intended for creening or diagnosis of cancer in the general population. The results must not be used as the sole means for clinical diagnosis or patient management decisions. Performed By: #### 1 7842-6 ####DIANE Nick ([id number])[facility] ([facility])[address] [place] [address] Comprehensive metabolic 2000 panelon 06-26-2025 Albumin BCP dye [Mass/Vol] 3.6 g/dL Normal 3.4-5.0 [facility] Comment on above: Performed By: #### 2 4323-8 ####DIANE Nick ([id number])[facility] ([facility])[address] [place] [address] ALP [Catalytic activity/Vol] 113 U/L Normal 33-136 [facility] Comment on above: Performed By: #### 2 4323-8 ####DIANE Nick ([id number])[facility] ([facility])[address] [place] [address] ALT With P-5'-P [Catalytic activity/Vol] 14 U/L Normal 7-45 [facility] Comment on above: Result Comment: Maria E ents treated with Sulfasalazine may generate falsely decreased results for ALT. Performed By: #### 2 4323-8 ####DIANE Nick ([id number])[facility] ([facility])[address] [place] [address] Anion gap [Moles/Vol] 10 mmol/L Normal 10-20 [facility] Comment on above: Performed By: #### 2 4323-8 ####DIAEN Nick ([id number])[facility] ([facility])[address] [place] [address] AST With P-5'-P [Catalytic activity/Vol] 23 U/L Normal 9-39 [facility] Comment on above: Performed By: #### 2 4323-8 ####DIANE Nick ([id number])[facility] ([facility])[address] [place] [address] Bilirubin [Mass/Vol] 0.5 mg/dL Normal 0.0-1.2 [facility] Comment on above: Performed By: #### 2 4323-8 ####DIANE MALLOYTZER L ([id number])[facility] ([facility])[address] [place] [address] Calcium [Mass/Vol] 8.2 mg/dL Low 8.6-10.6 [facility] Comment on above: Performed By: #### 2 4323-8 ####DIANE SCHMOTZER L ([id number])[facility] ([facility])[address] [place] [address] Chloride [Moles/Vol] 103 mmol/L Normal 98-107 [facility] Comment on above: Performed By: #### 2 4323-8 ####DIANE CABRALMOTZER L ([id number])[facility] ([facility])[address] [place] [address] CO2 [Moles/Vol] 30 mmol/L Normal 21-32 [facility] Comment on above: Performed By: #### 2 4323-8 ####DIANE CABRALMOTZER L ([id number])[facility] ([facility])[address] [place] [address] Creatinine [Mass/Vol] 0.71 mg/dL Normal 0.50-1.05 [facility] Comment on above: Performed By: #### 2 4323-8 ####DIANE CABRALMOTZER L ([id number])[facility] ([facility])[address] [place] [address] Glomerular filtration rate >90 Normal >60 [facility] Comment on above: Result Comment: Calc ulations of estimated GFR are performed using the 2020 CKD-EPI Study Refit equation without the race variable for the IDMS-Traceable creatinine methods.https://jasn.asnjournals.org/content/ 2/ASN.0205166069 Performed By: #### 2 4323-8 ####DIANE CABRALMOTZER L ([id number])[facility] ([facility])[address] [place] [address] Glucose [Mass/Vol] 100 mg/dL High 74-99 [facility] Comment on above: Performed By: #### 2 4323-8 ####DIANE Nick ([id number])[facility] ([facility])[address] [place] [address] Potassium [Moles/Vol] 3.7 mmol/L Normal 3.5-5.3 [facility] Comment on above: Performed By: #### 2 4323-8 ####DIANE MOCTEZUMA L ([id number])[facility] ([facility])[address] [place] [address] Protein [Mass/Vol] 6.0 g/dL Low 6.4-8.2 [facility] Comment on above: Performed By: #### 2 4323-8 ####DIANE MOCTEZUMA L ([id number])[facility] ([facility])[address] [place] [address] Sodium [Moles/Vol] 139 mmol/L Normal 136-145 [facility] Comment on above: Performed By: #### 2 4323-8 ####DIANE MOCTEZUMA L ([id number])[facility] ([facility])[address] [place] [address] Urea nitrogen [Mass/Vol] 12 mg/dL Normal 6-23 [facility] Comment on above: Performed By: #### 2 4323-8 ####DIANE MOCTEZUMA L ([id number])[facility] ([facility])[address] [place] [address] CT CHEST ABDOMEN PELVIS W IV CONTRASTon 06-21-2025 CT CHEST ABDOMEN PELVIS W IV CONTRAST Interpreted By: Esteban Andrade and Bera Kaustav STUDY: CT CHEST ABDOMEN PELVIS W IV CONTRAST; 06/21/2025 11:27 am INDICATION: Signs/Symptoms:CT restaging for IV breast cancer. 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 COMPARISON: CT chest abdomen pelvis on 03/21/2025 PET-CT on 10/26/2024 ACCESSION NUMBER(S): [id number] ORDERING CLINICIAN: NELI COX TECHNIQUE: Contiguous axial images of the chest, abdomen, and pelvis were obtained. Coronal and sagittal reformatted images were reconstructed from the axial data. 75 ML of Omnipaque 350 was administered intravenously without immediate complication. FINDINGS: CT CHEST: MEDIASTINUM AND LYMPH NODES: Nonenlarged right axillary lymph nodes, at the site of previously seen hypermetabolic an enlarged right axillary lymph nodes. Few subcentimeter prominent mediastinal lymph nodes, overall similar as compared to prior. For instance a 0.5 cm right upper paratracheal lymph node (series 201, image 27). No enlarged intrathoracic or axillary lymph nodes. No pneumomediastinum. Small hiatal hernia. 8.4 cm paraesophageal lymph node previously measured up to 0.3 cm (series 201, image 67). Small amount of free fluid in the mediastinum, along the anterior mediastinal soft tissue is similar to prior, and likely postsurgical. VESSELS: Normal caliber aorta without dissection. Severe aortic atherosclerosis. Right chest wall MediPort in place. HEART: Mild prominence of the left atrium. Severe coronary artery calcifications/coronar y stents. Aortic valve prosthesis. Minimal pericardial effusion. Left chest pacemaker/AICD in place. LUNG, AIRWAYS, PLEURA: The trachea and central airways are patent. No endobronchial lesions. Mild (fdzky-iuzjuaw-urdb-le ft) subpleural nodularity within bilateral lung bases, which appears new from prior (series 204, image 131). Similar evidence of linear atelectasis/scarring within the right lower lobe. A few 2-3 mm lung nodules within the bilateral lower lobes. For instance, a 0.3 cm nodule within the left lower lobe (series 204, image 136). A 0.2 cm partially calcified lung nodule within the left lower lobe (series 204, image 186). Otherwise, no new or suspicious pulmonary nodules. These do not demonstrate hypermetabolic activity on prior PET. No consolidation, pulmonary edema, pleural effusion or pneumothorax. CHEST WALL SOFT TISSUES: Soft tissue lesion within the right lateral breast, which demonstrated right hypermetabolic activity on prior PET, with a biopsy clip in place, now measures up to 4.0 x 1.1 cm (series 201, image 59), which previously measures up to 4.0 x 1.1 cm). The thyroid gland is unremarkable. Prior median sternotomy. OSSEOUS STRUCTURES: No acute osseous abnormality. Likely chronic deformity of the right posterior 11th rib, which do not demonstrate hypermetabolic activity on recent PET. CT ABDOMEN/PELVIS: ABDOMINAL WALL: There is a small fat containing umbilical hernia. LIVER: The liver is normal in size. Focal fat deposition along the falciform ligament is similar to prior. No definite liver lesions are visualized. Focus of calcification within segment III of the breast (series 201, image 77) BILE DUCTS: There is mild (saysw-innnkwg-kqbm-le ft) intrahepatic biliary dilatation, with mild prominence of the CBD, similar to prior, measuring up to 0.6 cm. GALLBLADDER: Cholelithiasis without evidence of cholecystitis. SPLEEN: No significant abnormality. PANCREAS: No significant abnormality. ADRENALS: No significant abnormality. KIDNEYS, URETERS, BLADDER: The kidneys are mildly lobulated in appearance, otherwise enhance symmetrically. 1.3 cm partially calcified exophytic lesion within the right kidney (series 201, image 105/194), likely represents a calcified cyst. Mild prominence of bilateral collecting systems, without hydroureteronephrosis. No evidence of nephrolithiasis. The urinary bladder is decompressed and limited for evaluation, otherwise unremarkable. REPRODUCTIVE ORGANS: Status post hysterectomy VESSELS: Severe atherosclerotic calcification of the abdominal aorta and branching vessels without aneurysmal dilatation. The IVC is unremarkable. LYMPH NODES/RETROPERITONEUM: Few prominent retroperitoneal as well as pelvic sidewall lymph nodes, overall similar as compared to prior. BOWEL/MESENTERY/PERITO NEUM: Stomach is decompressed and limited for evaluation. No bowel wall thickening or dilatation. Normal appendix. No ascites, free air or fluid collection. No ascites, free air, or fluid collection. MUSCULOSKELETAL: No acute osseous abnormality. Multilevel degenerative changes of the thoracolumbar spine. Sclerotic lesions are again seen within multiple thoracic vertebral ronit (more content not included)... Normal [facility] CBC W Auto Differential pane l (Bld)on 06-05-2025 Basophils (Bld) [#/Vol] 0.01 x10*3/uL Normal 0.00-0.10 [facility] Comment on above: Performed By: #### 5 7021-8 ####RUEL Yi ([id number])[facility] ([facility])[address] [place] [address] 60706 Basophils/100 WBC (Bld) 0.2 % Normal 0.0-2.0 [facility] Comment on above: Performed By: #### 5 7021-8 ####RUEL Yi ([id number])[facility] ([facility])[address] [place] [address] 63702 Eosinophils (Bld) [#/Vol] 0.09 x10*3/uL Normal 0.00-0. 40 [facility] Comment on above: Performed By: #### 7021-8 ####RUEL Yi ([id number])[facility] ([facility])[address] [place] [address] 28197 Eosinophils/100 WBC (Bld) 2.1 % Normal 0.0-6.0 [facility] Comment on above: Performed By: #### 7021-8 ####RUEL Yi ([id number])[facility] ([facility])[address] [place] [address] 07787 Erythrocyte distribution width (RBC) [Ratio] 17.1 % High 11.5-14.5 [facility] Comment on above: Performed By: #### 5 7021-8 ####RUEL Yi ([id number])[facility] ([facility])[address] [place] [address] 54095 Hematocrit (Bld) [Volume fraction] 32.0 % Low 36.0-46.0 [facility] Comment on above: Performed By: #### 5 7021-8 ####RUEL Yi ([id number])[facility] ([facility])[address] [place] [address] 94360 Hemoglobin (Bld) [Mass/Vol] 10.4 g/dL Low 12.0-16.0 [facility] Comment on above: Performed By: #### 5 7021-8 ####RUEL Yi ([id number])[facility] ([facility])[address] [place] [address] 47776 Immature granulocytes (Bld) [#/Vol] 0.01 x10*3/uL Normal 0.00-0.50 [facility] Comment on above: Performed By: #### 5 7021-8 ####RUEL Yi ([id number])[facility] ([facility])[address] [place] [address] 45840 Immature granulocytes/100 WBC (Bld) 0.2 % Normal 0.0-0.9 [facility] Comment on above: Result Comment: Krystle ture Granulocyte Count (IG) includes promyelocytes, myelocytes and metamyelocytes but does not include bands. Percent differential counts (%) should be interpreted in the context of the absolute cell counts (cells/UL). Performed By: #### 5 7021-8 ####RUEL Yi ([id number])[facility] ([facility])[address] [place] [address] 96396 Lymphocytes (Bld) [#/Vol] 1.14 x10*3/uL Normal 0.80-3. 00 [facility] Comment on above: Performed By: #### 5 7021-8 ####RUEL Yi ([id number])[facility] ([facility])[address] [place] [address] 92254 Lymphocytes/100 WBC (Bld) 26.1 % Normal 13.0-44.0 [facility] Comment on above: Performed By: #### 5 7021-8 ####RUEL Yi ([id number])[facility] ([facility])[address] [place] [address] 95207 MCH (RBC) [Entitic mass] 32.0 pg Normal 26.0-34.0 [facility] Comment on above: Performed By: #### 5 7021-8 ####RUEL Yi ([id number])[facility] ([facility])[address] [place] [address] 16135 MCHC (RBC) [Mass/Vol] 32.5 g/dL Normal 32.0-36.0 [facility] Comment on above: Performed By: #### 5 7021-8 ####RUEL Yi ([id number])[facility] ([facility])[address] [place] [address] 50101 MCV (RBC) [Entitic vol] 99 fL Normal 80-100 [facility] Comment on above: Performed By: #### 5 7021-8 ####RUEL Yi ([id number])[facility] ([facility])[address] [place] [address] 33636 Monocytes (Bld) [#/Vol] 0.51 x10*3/uL Normal 0.05-0.80 [facility] Comment on above: Performed By: #### 5 7021-8 ####RUEL Yi ([id number])[facility] ([facility])[address] [place] [address] 17441 Monocytes/100 WBC (Bld) 11.7 % Normal 2.0-10.0 [facility] Comment on above: Performed By: #### 5 7021-8 ####RUEL Yi ([id number])[facility] ([facility])[address] [place] [address] 91465 Neutrophils (Bld) [#/Vol] 2.60 x10*3/uL Normal 1.60-5. 50 [facility] Comment on above: Result Comment: Perc ent differential counts (%) should be interpreted in the context of the absolute cell counts (cells/uL). Performed By: #### 5 7021-8 ####RUEL Yi ([id number])[facility] ([facility])[address] [place] [address] 59468 Neutrophils/100 WBC (Bld) 59.7 % Normal 40.0-80.0 [facility] Comment on above: Performed By: #### 5 7021-8 ####RUEL Yi ([id number])[facility] ([facility])[address] [place] [address] 68470 Nucleated RBC/100 WBC (Bld) [Ratio] Normal [facility] Comment on above: Result Comment: Not Measured Performed By: #### 5 7021-8 ####RUEL Yi ([id number])[facility] ([facility])[address] [place] [address] 96413 Platelets (Bld) [#/Vol] 193 x10*3/uL Normal 150-450 [facility] Comment on above: Performed By: #### 5 7021-8 ####RUEL Yi ([id number])[facility] ([facility])[address] [place] [address] 16622 RBC (Bld) [#/Vol] 3.25 x10*6/uL Low 4.00-5.20 [facility] Comment on above: Performed By: #### 5 7021-8 ####RUEL Yi ([id number])[facility] ([facility])[address] [place] [address] 75065 WBC (Bld) [#/Vol] 4.4 x10*3/uL Normal 4.4-11.3 [facility] Comment on above: Performed By: #### 5 7021-8 ####RUEL Yi ([id number])[facility] ([facility])[address] [place] [address] 88575 Cancer Ag 27-29on 06-05-2025 Cancer Ag 27-29 Qn 50.9 [arb'U]/mL High 0.0-38.6 [facility] Comment on above: Order Comment: CA 27 .29 testing is performed by chemiluminescent immunoassay using the [employer]. Values obtained with different analytic methods cannot be used interchangeably.Serum CA 27.29 measurement is intended for use as an aid in monitoring patients previously treated for Stage II or Stage III breast cancer. This assay is not intended for creening or diagnosis of cancer in the general population. The results must not be used as the sole means for clinical diagnosis or patient management decisions. Performed By: #### 1 7842-6 ####DIANE Nick ([id number])[facility] ([facility])[address] [place] [id number] Comprehensive metabolic 2000 panelon 06-05-2025 Albumin BCP dye [Mass/Vol] 3.6 g/dL Normal 3.4-5.0 [facility] Comment on above: Performed By: #### 2 4323-8 ####DIANE Nick ([id number])[facility] ([facility])[address] [place] [address] ALP [Catalytic activity/Vol] 129 U/L Normal 33-136 [facility] Comment on above: Performed By: #### 2 4323-8 ####DIANE Nick ([id number])[facility] ([facility])[address] [place] [address] ALT With P-5'-P [Catalytic activity/Vol] 21 U/L Normal 7-45 [facility] Comment on above: Result Comment: Maria E ents treated with Sulfasalazine may generate falsely decreased results for ALT. Performed By: #### 2 4323-8 ####DIANE Nick ([id number])[facility] ([facility])[address] [place] [address] Anion gap [Moles/Vol] 14 mmol/L Normal 10-20 [facility] Comment on above: Performed By: #### 2 4323-8 ####DIANE Nick ([id number])[facility] ([facility])[address] [place] [address] AST With P-5'-P [Catalytic activity/Vol] 29 U/L Normal 9-39 [facility] Comment on above: Performed By: #### 2 4323-8 ####DIANE Nick ([id number])[facility] ([facility])[address] [place] [address] Bilirubin [Mass/Vol] 0.6 mg/dL Normal 0.0-1.2 [facility] Comment on above: Performed By: #### 2 4323-8 ####DIANE Nick ([id number])[facility] ([facility])[address] [place] [address] Calcium [Mass/Vol] 8.4 mg/dL Low 8.6-10.6 [facility] Comment on above: Performed By: #### 2 4323-8 ####DIANE MANDUJANOER L ([id number])[facility] ([facility])[address] [place] [address] Chloride [Moles/Vol] 101 mmol/L Normal 98-107 [facility] Comment on above: Performed By: #### 2 4323-8 ####DIANE CABRALMOTZER L ([id number])[facility] ([facility])[address] [place] [address] CO2 [Moles/Vol] 29 mmol/L Normal 21-32 [facility] Comment on above: Performed By: #### 2 4323-8 ####DIANE MALLOYTZER L ([id number])[facility] ([facility])[address] [place] [address] Creatinine [Mass/Vol] 0.76 mg/dL Normal 0.50-1.05 [facility] Comment on above: Performed By: #### 2 4323-8 ####DIANE MALLOYTZER L ([id number])[facility] ([facility])[address] [place] [address] Glomerular filtration rate 84 mL/min/1.73m*2 Normal >60 [facility] Comment on above: Result Comment: Calc ulations of estimated GFR are performed using the 2020 CKD-EPI Study Refit equation without the race variable for the IDMS-Traceable creatinine methods.https://jasn.asnjournals.org/content/2 2/ASN.1204310426 Performed By: #### 2 4323-8 ####DIANE MALLOYTZER L ([id number])[facility] ([facility])[address] [place] [address] Glucose [Mass/Vol] 91 mg/dL Normal 74-99 [facility] Comment on above: Performed By: #### 2 4323-8 ####DIANE CABRALMOTZER L ([id number])[facility] ([facility])[address] [place] [address] Potassium [Moles/Vol] 4.5 mmol/L Normal 3.5-5.3 [facility] Comment on above: Performed By: #### 2 4323-8 ####DIANE Nick ([id number])[facility] ([facility])[address] [place] [address] Protein [Mass/Vol] 6.2 g/dL Low 6.4-8.2 [facility] Comment on above: Performed By: #### 2 4323-8 ####DIANE Nick ([id number])[facility] ([facility])[address] [place] [address] Sodium [Moles/Vol] 139 mmol/L Normal 136-145 [facility] Comment on above: Performed By: #### 2 4323-8 ####DIANE Nick ([id number])[facility] ([facility])[address] [place] [address] Urea nitrogen [Mass/Vol] 12 mg/dL Normal 6-23 [facility] Comment on above: Performed By: #### 2 4323-8 ####DIANE Nick ([id number])[facility] ([facility])[address] [place] [address]99 CBC W Auto Differential pane l (Bld)on 05-15-2025 Basophils (Bld) [#/Vol] 0.01 x10*3/uL Normal 0.00-0.10 [facility] Comment on above: Performed By: #### 5 7021-8 ####RUEL Yi ([id number])[facility] ([facility])[address] [place] [address] Basophils/100 WBC (Bld) 0.2 % Normal 0.0-2.0 [facility] Comment on above: Performed By: #### 5 7021-8 ####RUEL Yi ([id number])[facility] ([facility])[address] [place] [address] Eosinophils (Bld) [#/Vol] 0.08 x10*3/uL Normal 0.00-0. 40 [facility] Comment on above: Performed By: #### 5 7021-8 ####RUEL Yi ([id number])[facility] ([facility])[address] [place] [address]885 Eosinophils/100 WBC (Bld) 1.8 % Normal 0.0-6.0 [facility] Comment on above: Performed By: #### 5 7021-8 ####RUEL Yi ([id number])[facility] ([facility])[address] [place] [address]32 Erythrocyte distribution width (RBC) [Ratio] 16.2 % High 11.5-14.5 [facility] Comment on above: Performed By: #### 5 7021-8 ####RUEL Yi ([id number])[facility] ([facility])[address] [place] [address] 32842 Hematocrit (Bld) [Volume fraction] 28.6 % Low 36.0-46.0 [facility] Comment on above: Performed By: #### 5 7021-8 ####RUEL Yi ([id number])[facility] ([facility])[address] [place] [address] 27080 Hemoglobin (Bld) [Mass/Vol] 9.3 g/dL Low 12.0-16.0 [facility] Comment on above: Performed By: #### 5 7021-8 ####RUEL Yi ([id number])[facility] ([facility])[address] [place] [address] 04011 Immature granulocytes (Bld) [#/Vol] 0.01 x10*3/uL Normal 0.00-0.50 [facility] Comment on above: Performed By: #### 5 7021-8 ####RUEL Yi ([id number])[facility] ([facility])[address] [place] [address] 51601 Immature granulocytes/100 WBC (Bld) 0.2 % Normal 0.0-0.9 [facility] Comment on above: Result Comment: Krystle ture Granulocyte Count (IG) includes promyelocytes, myelocytes and metamyelocytes but does not include bands. Percent differential counts (%) should be interpreted in the context of the absolute cell counts (cells/UL). Performed By: #### 5 7021-8 ####RUEL Yi ([id number])[facility] ([facility])[address] [place] [address] Lymphocytes (Bld) [#/Vol] 0.82 x10*3/uL Normal 0.80-3. 00 [facility] Comment on above: Performed By: #### 5 7021-8 ####RUEL Yi ([id number])[facility] ([facility])[address] [place] [address] Lymphocytes/100 WBC (Bld) 18.1 % Normal 13.0-44.0 [facility] Comment on above: Performed By: #### 5 7021-8 ####RUEL Yi ([id number])[facility] ([facility])[address] [place] [address] 72759 MCH (RBC) [Entitic mass] 31.5 pg Normal 26.0-34.0 [facility] Comment on above: Performed By: #### 5 7021-8 ####RUEL Yi ([id number])[facility] ([facility])[address] [place] [address] 44455 MCHC (RBC) [Mass/Vol] 32.5 g/dL Normal 32.0-36.0 [facility] Comment on above: Performed By: #### 5 7021-8 ####RUEL Yi ([id number])[facility] ([facility])[address] [place] [address] 05740 MCV (RBC) [Entitic vol] 97 fL Normal 80-100 [facility] Comment on above: Performed By: #### 5 7021-8 ####RUEL Yi ([id number])[facility] ([facility])[address] [place] [address] 18764 Monocytes (Bld) [#/Vol] 0.57 x10*3/uL Normal 0.05-0.80 [facility] Comment on above: Performed By: #### 5 7021-8 ####RUEL Yi ([id number])[facility] ([facility])[address] [place] [address] 48563 Monocytes/100 WBC (Bld) 12.6 % Normal 2.0-10.0 [facility] Comment on above: Performed By: #### 5 7021-8 ####RUEL Yi ([id number])[facility] ([facility])[address] [place] [address] 40977 Neutrophils (Bld) [#/Vol] 3.03 x10*3/uL Normal 1.60-5. 50 [facility] Comment on above: Result Comment: Perc ent differential counts (%) should be interpreted in the context of the absolute cell counts (cells/uL). Performed By: #### 5 7021-8 ####RUEL Yi ([id number])[facility] ([facility])[address] [place] [address] 93823 Neutrophils/100 WBC (Bld) 67.1 % Normal 40.0-80.0 [facility] Comment on above: Performed By: #### 5 7021-8 ####RUEL Yi ([id number])[facility] ([facility])[address] [place] [address] 78126 Nucleated RBC/100 WBC (Bld) [Ratio] Normal [facility] Comment on above: Result Comment: Not Measured Performed By: #### 5 7021-8 ####RUEL Yi ([id number])[facility] ([facility])[address] [place] [address] 87185 Platelets (Bld) [#/Vol] 213 x10*3/uL Normal 150-450 [facility] Comment on above: Performed By: #### 5 7021-8 ####RUEL Yi ([id number])[facility] ([facility])[address] [place] [address] 39529 RBC (Bld) [#/Vol] 2.95 x10*6/uL Low 4.00-5.20 [facility] Comment on above: Performed By: #### 5 7021-8 ####RUEL Yi ([id number])[facility] ([facility])[address] [place] [address] 26364 WBC (Bld) [#/Vol] 4.5 x10*3/uL Normal 4.4-11.3 [facility] Comment on above: Performed By: #### 5 7021-8 ####RUEL Yi ([id number])[facility] ([facility])[address] [place] [address] 92463 Cancer Ag 27-29on 05-15-2025 Cancer Ag 27-29 Qn 33.6 [arb'U]/mL Normal 0.0-38.6 [facility] Comment on above: Order Comment: CA 27 .29 testing is performed by chemiluminescent immunoassay using the [employer]te[employer]. Values obtained with different analytic methods cannot be used interchangeably.Serum CA 27.29 measurement is intended for use as an aid in monitoring patients previously treated for Stage II or Stage III breast cancer. This assay is not intended for creening or diagnosis of cancer in the general population. The results must not be used as the sole means for clinical diagnosis or patient management decisions. Performed By: #### 1 7842-6 ####DIANE Nick ([id number])[facility] ([facility])[address] [place] [address] Comprehensive metabolic 2000 panelon 05-15-2025 Albumin BCP dye [Mass/Vol] 3.2 g/dL Low 3.4-5.0 [facility] Comment on above: Performed By: #### 2 4323-8 ####DIANE Nick ([id number])[facility] ([facility])[address] [place] [address] ALP [Catalytic activity/Vol] 160 U/L High 33-136 [facility] Comment on above: Performed By: #### 2 4323-8 ####DIANE Nick ([id number])[facility] ([facility])[address] [place] [address] ALT With P-5'-P [Catalytic activity/Vol] 14 U/L Normal 7-45 [facility] Comment on above: Result Comment: Maria E ents treated with Sulfasalazine may generate falsely decreased results for ALT. Performed By: #### 2 4323-8 ####DIANE Nick ([id number])[facility] ([facility])[address] [place] [address] Anion gap [Moles/Vol] 9 mmol/L Low 10-20 [facility] Comment on above: Performed By: #### 2 4323-8 ####DIANE Nick ([id number])[facility] ([facility])[address] [place] [address] AST With P-5'-P [Catalytic activity/Vol] 18 U/L Normal 9-39 [facility] Comment on above: Performed By: #### 2 4323-8 ####DIANE Nick ([id number])[facility] ([facility])[address]182 [place] [address] Bilirubin [Mass/Vol] 0.5 mg/dL Normal 0.0-1.2 [facility] Comment on above: Performed By: #### 2 4323-8 ####DIANE Nick ([id number])[facility] ([facility])[address] [facility] [address] Calcium [Mass/Vol] 8.0 mg/dL Low 8.6-10.6 [facility] Comment on above: Performed By: #### 2 4323-8 ####DIANE Nick ([id number])[facility] ([facility])[address] [facility] [address] Chloride [Moles/Vol] 98 mmol/L Normal 98-107 [facility] Comment on above: Performed By: #### 2 4323-8 ####DIANE Nick ([id number])[facility] ([facility])[address] [facility] [address] CO2 [Moles/Vol] 31 mmol/L Normal 21-32 [facility] Comment on above: Performed By: #### 2 4323-8 ####DIANE Nick ([id number])[facility] ([facility])[address]42 [place] [address] Creatinine [Mass/Vol] 0.68 mg/dL Normal 0.50-1.05 [facility] Comment on above: Performed By: #### 2 4323-8 ####DIANE MOCTEZUMA L ([id number])[facility] ([facility])[address] [place] [address] Glomerular filtration rate >90 Normal >60 [facility] Comment on above: Result Comment: Calc ulations of estimated GFR are performed using the 2020 CKD-EPI Study Refit equation without the race variable for the IDMS-Traceable creatinine methods.https://jasn.asnjournals.org/content/ 2/ASN.6218642666 Performed By: #### 2 4323-8 ####DIANE MOCTEZUMA L ([id number])[facility] ([facility])[address] [place] [address] Glucose [Mass/Vol] 95 mg/dL Normal 74-99 [facility] Comment on above: Performed By: #### 2 4323-8 ####DIANE MOCTEZUMA L ([id number])[facility] ([facility])[address] [place] [address] Potassium [Moles/Vol] 4.1 mmol/L Normal 3.5-5.3 [facility] Comment on above: Performed By: #### 2 4323-8 ####DIANE MOCTEZUMA L ([id number])[facility] ([facility])[address] [place] [address] Protein [Mass/Vol] 5.8 g/dL Low 6.4-8.2 [facility] Comment on above: Performed By: #### 2 4323-8 ####DIANE MOCTEZUMA L ([id number])[facility] ([facility])[address]70 [place] [address] Sodium [Moles/Vol] 134 mmol/L Low 136-145 [facility] Comment on above: Performed By: #### 2 4323-8 ####DIANE Nick ([id number])[facility] ([facility])[address]70 [place] [address] Urea nitrogen [Mass/Vol] 14 mg/dL Normal 6-23 [facility] Comment on above: Performed By: #### 2 4323-8 ####DIANE Nick ([id number])[facility] ([facility])[address] [place] [address] TRANSTHORACIC ECHO (TTE) HESTER ITEDon 04-26-2025 TRANSTHORACIC ECHO (TTE) LIMITED Normal [facility] CBC W Auto Differential pane l (Bld)on 04-24-2025 Basophils (Bld) [#/Vol] 0.01 x10*3/uL Normal 0.00-0.10 [facility] Comment on above: Performed By: #### 5 7021-8 ####RUEL Yi ([id number])[facility] ([facility])[address] [place] [address]3498 Basophils/100 WBC (Bld) 0.2 % Normal 0.0-2.0 [facility] Comment on above: Performed By: #### 5 7021-8 ####RUEL Yi ([id number])[facility] ([facility])[address] [place] [address] Eosinophils (Bld) [#/Vol] 0.10 x10*3/uL Normal 0.00-0. 40 [facility] Comment on above: Performed By: #### 5 7021-8 ####RUEL Yi ([id number])[facility] ([facility])[address] [place] [address] Eosinophils/100 WBC (Bld) 2.2 % Normal 0.0-6.0 [facility] Comment on above: Performed By: #### 5 7021-8 ####RUEL Yi ([id number])[facility] ([facility])[address] [place] [address] Erythrocyte distribution width (RBC) [Ratio] 15.5 % High 11.5-14.5 [facility] Comment on above: Performed By: #### 5 7021-8 ####RUEL Yi ([id number])[facility] ([facility])[address] [place] [address] Hematocrit (Bld) [Volume fraction] 29.4 % Low 36.0-46.0 [facility] Comment on above: Performed By: #### 5 7021-8 ####RUEL Yi ([id number])[facility] ([facility])[address] [place] [address] Hemoglobin (Bld) [Mass/Vol] 9.8 g/dL Low 12.0-16.0 [facility] Comment on above: Performed By: #### 5 7021-8 ####RUEL Yi ([id number])[facility] ([facility])[address] [place] [address] Immature granulocytes (Bld) [#/Vol] 0.02 x10*3/uL Normal 0.00-0.50 [facility] Comment on above: Performed By: #### 5 7021-8 ####RUEL Yi ([id number])[facility] ([facility])[address] [place] [address] Immature granulocytes/100 WBC (Bld) 0.4 % Normal 0.0-0.9 [facility] Comment on above: Result Comment: Krystle ture Granulocyte Count (IG) includes promyelocytes, myelocytes and metamyelocytes but does not include bands. Percent differential counts (%) should be interpreted in the context of the absolute cell counts (cells/UL). Performed By: #### 5 7021-8 ####RUEL Yi ([id number])[facility] ([facility])[address] [place] [address] Lymphocytes (Bld) [#/Vol] 1.05 x10*3/uL Normal 0.80-3. 00 [facility] Comment on above: Performed By: #### 5 7021-8 ####RUEL Yi ([id number])[facility] ([facility])[address] [place] [address] 11485 Lymphocytes/100 WBC (Bld) 23.4 % Normal 13.0-44.0 [facility] Comment on above: Performed By: #### 5 7021-8 ####RUEL Yi ([id number])[facility] ([facility])[address] [place] [address] 44917 MCH (RBC) [Entitic mass] 32.0 pg Normal 26.0-34.0 [facility] Comment on above: Performed By: #### 5 7021-8 ####RUEL Yi ([id number])[facility] ([facility])[address] [place] [address] 07657 MCHC (RBC) [Mass/Vol] 33.3 g/dL Normal 32.0-36.0 [facility] Comment on above: Performed By: #### 5 7021-8 ####RUEL Yi ([id number])[facility] ([facility])[address] [place] [address] 87021 MCV (RBC) [Entitic vol] 96 fL Normal 80-100 [facility] Comment on above: Performed By: #### 5 7021-8 ####RUEL Yi ([id number])[facility] ([facility])[address] [place] [address] 22371 Monocytes (Bld) [#/Vol] 0.69 x10*3/uL Normal 0.05-0.80 [facility] Comment on above: Performed By: #### 5 7021-8 ####RUEL Yi ([id number])[facility] ([facility])[address] [place] [address] 08975 Monocytes/100 WBC (Bld) 15.4 % Normal 2.0-10.0 [facility] Comment on above: Performed By: #### 5 7021-8 ####RUEL Yi ([id number])[facility] ([facility])[address] [place] [address] 57442 Neutrophils (Bld) [#/Vol] 2.62 x10*3/uL Normal 1.60-5. 50 [facility] Comment on above: Result Comment: Perc ent differential counts (%) should be interpreted in the context of the absolute cell counts (cells/uL). Performed By: #### 5 7021-8 ####RUEL Yi ([id number])[facility] ([facility])[address] [place] [address] 48087 Neutrophils/100 WBC (Bld) 58.4 % Normal 40.0-80.0 [facility] Comment on above: Performed By: #### 5 7021-8 ####RUEL Yi ([id number])[facility] ([facility])[address] [place] [address] 91741 Nucleated RBC/100 WBC (Bld) [Ratio] Normal [facility] Comment on above: Result Comment: Not Measured Performed By: #### 5 7021-8 ####RUEL Yi ([id number])[facility] ([facility])[address] [place] [address] 38813 Platelets (Bld) [#/Vol] 203 x10*3/uL Normal 150-450 [facility] Comment on above: Performed By: #### 5 7021-8 ####RUEL Yi ([id number])[facility] ([facility])[address] [place] [address] 95245 RBC (Bld) [#/Vol] 3.06 x10*6/uL Low 4.00-5.20 [facility] Comment on above: Performed By: #### 5 7021-8 ####RUEL Yi ([id number])[facility] ([facility])[address] [place] [address] 03470 WBC (Bld) [#/Vol] 4.5 x10*3/uL Normal 4.4-11.3 [facility] Comment on above: Performed By: #### 5 7021-8 ####RUEL Yi ([id number])[facility] ([facility])[address] [place] [address] Cancer Ag 27-29on 04-24-2025 Cancer Ag 27-29 Qn 27.0 [arb'U]/mL Normal 0.0-38.6 [facility] Comment on above: Order Comment: CA 27 .29 testing is performed by chemiluminescent immunoassay using the [employer]. Values obtained with different analytic methods cannot be used interchangeably.Serum CA 27.29 measurement is intended for use as an aid in monitoring patients previously treated for Stage II or Stage III breast cancer. This assay is not intended for creening or diagnosis of cancer in the general population. The results must not be used as the sole means for clinical diagnosis or patient management decisions. Performed By: #### 1 7842-6 ####DIANE Nick ([id number])[facility] ([facility])[address] [place] [address] 76107 Comprehensive metabolic 2000 panelon 04-24-2025 Albumin BCP dye [Mass/Vol] 3.6 g/dL Normal 3.4-5.0 [facility] Comment on above: Performed By: #### 2 4323-8 ####DIANE Nick ([id number])[facility] ([facility])[address] [place] [address] 09750 ALP [Catalytic activity/Vol] 126 U/L Normal 33-136 [facility] Comment on above: Performed By: #### 2 4323-8 ####DIANE Nick ([id number])[facility] ([facility])[address] [place] [address] ALT With P-5'-P [Catalytic activity/Vol] 21 U/L Normal 7-45 [facility] Comment on above: Result Comment: Maria E ents treated with Sulfasalazine may generate falsely decreased results for ALT. Performed By: #### 2 4323-8 ####DIANE Nick ([id number])[facility] ([facility])[address] [place] [address] Anion gap [Moles/Vol] 11 mmol/L Normal 10-20 [facility] Comment on above: Performed By: #### 2 4323-8 ####DIANE Nick ([id number])[facility] ([facility])[address] [place] [address] AST With P-5'-P [Catalytic activity/Vol] 26 U/L Normal 9-39 [facility] Comment on above: Performed By: #### 2 4323-8 ####DIANE Nick ([id number])[facility] ([facility])[address]30 [place] [address] Bilirubin [Mass/Vol] 0.4 mg/dL Normal 0.0-1.2 [facility] Comment on above: Performed By: #### 2 4323-8 ####DIANE Nick ([id number])[facility] ([facility])[address]35 [place] [address] Calcium [Mass/Vol] 8.2 mg/dL Low 8.6-10.6 [facility] Comment on above: Performed By: #### 2 4323-8 ####DIANE Nick ([id number])[facility] ([facility])[address] [place] [address] Chloride [Moles/Vol] 97 mmol/L Low 98-107 [facility] Comment on above: Performed By: #### 2 4323-8 ####DIANE MOCTEZUMA L ([id number])[facility] ([facility])[address]84 [place] [address] CO2 [Moles/Vol] 30 mmol/L Normal 21-32 [facility] Comment on above: Performed By: #### 2 4323-8 ####DIANE MOCTEZUMA L ([id number])[facility] ([facility])[address] [place] [address] Creatinine [Mass/Vol] 0.66 mg/dL Normal 0.50-1.05 [facility] Comment on above: Performed By: #### 2 4323-8 ####DIANE MOCTEZUMA L ([id number])[facility] ([facility])[address] [place] [address] GFR/1.73 sq M.predicted MDRD (S/P/Bld) [Vol rate/Area] mL/min/{1.73_m2} Normal >60 [facility] Comment on above: Result Comment: Calc ulations of estimated GFR are performed using the 2020 CKD-EPI Study Refit equation without the race variable for the IDMS-Traceable creatinine methods.https://jasn.asnjournals.org/content/early/ 2/ASN.7083948060 Performed By: #### 2 4323-8 ####DIANE Nick ([id number])[facility] ([facility])[address] [place] [address] Glucose [Mass/Vol] 87 mg/dL Normal 74-99 [facility] Comment on above: Performed By: #### 2 4323-8 ####DIANE MOCTEZUMA L ([id number])[facility] ([facility])[address] [place] [address] Potassium [Moles/Vol] 3.9 mmol/L Normal 3.5-5.3 [facility] Comment on above: Performed By: #### 2 4323-8 ####DIANE CABRALMOTZER L ([id number])[facility] [facility] [place])[address] [place] [address] Protein [Mass/Vol] 6.1 g/dL Low 6.4-8.2 [facility] Comment on above: Performed By: #### 2 4323-8 ####DIANE CABRALMOTZGODFREY L ([id number])[facility] ([facility])[address] [place] [address] Sodium [Moles/Vol] 134 mmol/L Low 136-145 [facility] Comment on above: Performed By: #### 2 4323-8 ####DIANE CABRALMOTZER L ([id number])[facility] ([facility])[address] [place] [address] Urea nitrogen [Mass/Vol] 13 mg/dL Normal 6-23 [facility] Comment on above: Performed By: #### 2 4323-8 ####DIANE Nick ([id number])[facility] ([facility])[address] [place] [address] Absolute lymphocyte countOrd ered By: Benito Jefferson on 04-18-2025 Lymphocytes Auto (Unsp spec) [#/Vol] 1.28 10*3/uL 0.83-4.51 [facility] Absolute neutrophil countOrd ered By: Benito Jefferson on 04-18-2025 Neutrophils (Bld) [#/Vol] 5.5 10*3/uL 2.0-7.7 [facility] Anion gap in Serum or Plasma Ordered By: Benito Jefferson on 04-18-2025 Anion gap [Moles/Vol] 10 mmol/L 5-15 [facility] Automated lymphocyte count a s percentage of total leukocytesOrdered By: Benito Jefferson on 04-18-2025 Lymphocytes/100 WBC Auto (Unsp spec) 17.7 % Low 19-41 [facility] BUN/creatinine ratioOrdered By: Benito Jefferson on 04-18-2025 Urea nitrogen/Creatinine [Mass ratio] 12.5 mg/mg 10-20 [facility] Basophil percentageOrdered B y: Benito Jefferson on 04-18-2025 Basophils/100 WBC (Bld) 0.1 % 0-1 [facility] Bilirubin, totalOrdered By: Benito Jefferson on 04-18-2025 Bilirubin [Mass/Vol] 0.49 mg/dL 0.00-1.30 [facility] Brain/Head without Contrasto n 04-18-2025 Brain/Head without Contrast [facility] [address] [place] [address] Brain/Head without Contrast MR#: [id number] Acct: [id number] Name: ZORA NIXON Rep #: [id number] : 1955 F 70 From: Aaron Mejia MD PCP: Dr. Daniela Fallon MD Status: REG ER Study: Brain/Head without Contrast Date of Exam: 12/12 Exam# [id number] Ordering Dr: Benito Jefferson MD PROCEDURE: BRAIN/HEAD WITHOUT CONTRAST 04/18/2025 [...] and ancillary findings as above. Reading Location: [id number] CC: Dr. Daniela Fallon MD; Dr. Benito Jefferson MD Pick Up: Signed Normal [facility] CBC W/Diff, Automatedon Absolute Lymph 1.28 X10 3/uL Normal 0.83-4.51 [facility] Comment on above: Performed By: #### L 300.3900, L300.4310 #### [facility] [address] [place], [address] Absolute Neut 5.5 X10 3/uL Normal 2.0-7.7 [facility] Comment on above: Performed By: #### L 300.3900, L300.4310 #### [facility] [address] [place], [address] Basophils/100 WBC (Bld) 0.1 % Normal 0-1 [facility] Comment on above: Performed By: #### L 300.3900, L300.4310 #### [facility] [address] [place], [address] Eosinophils/100 WBC (Bld) 1.0 % Normal 0-5 [facility] Comment on above: Performed By: #### L 300.3900, L300.4310 #### [facility] [address] [place], [address] Erythrocyte distribution width (RBC) [Ratio] 14.6 % Normal 11.6-14.6 [facility] Comment on above: Performed By: #### L 300.3900, L300.4310 #### [facility] [address] [place], [address] Hematocrit (Bld) [Volume fraction] 28.0 % Low 37-47 [facility] Comment on above: Performed By: #### L 300.3900, L300.4310 #### [facility] [address] [place], [address] Hemoglobin (Bld) [Mass/Vol] 9.6 g/dL Low 12.0-15.0 [facility] Comment on above: Performed By: #### L 300.3900, L300.4310 #### [facility] [address] [place], [address] IG% 0.400 Normal 0.0-0.9 [facility] Comment on above: Result Comment: IG% - Immature Granulocytes (promyelocytes, myelocytes and metamyelocytes) > 1% indicates that a LEFT SHIFT is Present. Performed By: #### L 300.3900, L300.4310 #### [facility] [address] [place], [address] Lymphocytes/100 WBC (Bld) 17.7 % Low 19-41 [facility] Comment on above: Performed By: #### L 300.3900, L300.4310 #### [facility] [address] [place], [address] MCH (RBC) [Entitic mass] 31.6 pg Normal 27.0-32.0 [facility] Comment on above: Performed By: #### L 300.3900, L300.4310 #### [facility] [address] [place], [address] MCHC (RBC) [Mass/Vol] 34.3 g/dL Normal 32-36 [facility] Comment on above: Performed By: #### L 300.3900, L300.4310 #### [facility] [address] [place], [address] MCV (RBC) [Entitic vol] 92.1 fL Normal 81-99 [facility] Comment on above: Performed By: #### L 300.3900, L300.4310 #### [facility] [address] [place], [address] Monocytes/100 WBC (Bld) 4.8 % Normal 0-10 [facility] Comment on above: Performed By: #### L 300.3900, L300.4310 #### [facility] [address] [place], [address] Neutrophils/100 WBC (Bld) 76.0 % High 47-70 [facility] Comment on above: Performed By: #### L 300.3900, L300.4310 #### [facility] [address] [place], [address] Nucleated RBC (Bld) [#/Vol] 0 10*3/uL Normal 0-5 [facility] Comment on above: Performed By: #### L 300.3900, L300.4310 #### [facility] [address] [place], [address] Platelet mean volume (Bld) [Entitic vol] 10.4 fL Normal 6.2-12.0 [facility] Comment on above: Performed By: #### L 300.3900, L300.4310 #### [facility] [address] [place], [address] Platelets (Bld) [#/Vol] 121 10*3/uL Low 150-450 [facility] Comment on above: Performed By: #### L 300.3900, L300.4310 #### [facility] [address] [place], [address] RBC (Bld) [#/Vol] 3.04 10*6/uL Low 4.2-5.4 [facility] Comment on above: Performed By: #### L 300.3900, L300.4310 #### [facility] [address] [place], [address] RDW SD 48.8 fl High 35.1-43.9 [facility] Comment on above: Performed By: #### L 300.3900, L300.4310 #### [facility] [address] [place], [address] WBC (Bld) [#/Vol] 7.2 10*3/uL Normal 4.4-11.0 [facility] Comment on above: Performed By: #### L 300.3900, L300.4310 #### [facility] [address] [place], [address] Carbon dioxide, total [Moles /volume] in Central venous bloodOrdered By: Benito Jefferson on 04-18-2025 CO2 [Moles/Vol] 24.4 mmol/L 21.0-32.0 [facility] Chloride assayOrdered By: Adelaide Jefferson on 04-18-2025 Chloride [Moles/Vol] 92 mmol/L Low 98-108 [facility] Comprehensive Metabolic Prof ilon 04-18-2025 Albumin [Mass/Vol] 3.7 g/dL Normal 3.4-4.8 [facility] Comment on above: Performed By: #### L 300.3900, L300.4310 #### [facility] [address] [place], [address] Albumin/Globulin [Mass ratio] 1.3 {ratio} Normal 0.9-2.4 [facility] Comment on above: Performed By: #### L 300.3900, L300.4310 #### [facility] [address] [place], [address] ALK PHOS 180 U/L High 35-104 [facility] Comment on above: Performed By: #### L 300.3900, L300.4310 #### [facility] [address] [place], [address] ALT [Catalytic activity/Vol] 40 U/L High <=34 [facility] Comment on above: Performed By: #### L 300.3900, L300.4310 #### [facility] [address] [place], [address] AST [Catalytic activity/Vol] 48 U/L High <=31 [facility] Comment on above: Performed By: #### L 300.3900, L300.4310 #### [facility] [address] [place], [address] Bilirubin [Mass/Vol] 0.49 mg/dL Normal 0.00-1.30 [facility] Comment on above: Performed By: #### L 300.3900, L300.4310 #### [facility] [address] [place], [address] BUN/CRE 12.5 RATIO Normal 10-20 [facility] Comment on above: Performed By: #### L 300.3900, L300.4310 #### [facility] [address] [place], [address] Calcium [Mass/Vol] 8.6 mg/dL Normal 7.6-11.0 [facility] Comment on above: Performed By: #### L 300.3900, L300.4310 #### [facility] [address] [place], [address] Chloride [Moles/Vol] 92 mmol/L Low 98-108 [facility] Comment on above: Performed By: #### L 300.3900, L300.4310 #### [facility] [address] [place], [address] CO2 [Moles/Vol] 24.4 mmol/L Normal 21.0-32.0 [facility] Comment on above: Performed By: #### L 300.3900, L300.4310 #### [facility] [address] [place], [address] Creatinine [Mass/Vol] 0.73 mg/dL Normal 0.70-1.20 [facility] Comment on above: Performed By: #### L 300.3900, L300.4310 #### [facility] [address] [place], [address] ECRCL 46.33 ml/min Low 50-250 [facility] Comment on above: Performed By: #### L 300.3900, L300.4310 #### [facility] [address] [place], [address] GAP 10 Normal 5-15 [facility] Comment on above: Performed By: #### L 300.3900, L300.4310 #### [facility] [address] [place], [address] GFR/1.73 sq M.predicted among non-blacks MDRD (S/P/Bld) [Vol rate/Area] 88 mL/min/{1.73_m2} Normal >60 [facility] Comment on above: Result Comment: mL/m in/1.73m2 CKD-EPI Creatinine Equation (2020) Performed By: #### L 300.3900, L300.4310 #### [facility] [address] [place], [address] Globulin (S) [Mass/Vol] 2.8 g/dL Normal 2.2-4.2 [facility] Comment on above: Performed By: #### L 300.3900, L300.4310 #### [facility] [address] [place], [address] Glucose [Mass/Vol] 110 mg/dL High 70-99 [facility] Comment on above: Performed By: #### L 300.3900, L300.4310 #### [facility] [address] [place], [address] Potassium [Moles/Vol] 3.7 mmol/L Normal 3.3-5.1 [facility] Comment on above: Performed By: #### L 300.3900, L300.4310 #### [facility] [address] [place], [address] Sodium [Moles/Vol] 127 mmol/L Low 133-145 [facility] Comment on above: Performed By: #### L 300.3900, L300.4310 #### [facility] [address] [place], [address] T PROT 6.5 g/dL Normal 5.9-8.4 [facility] Comment on above: Performed By: #### L 300.3900, L300.4310 #### [facility] [address] [place], [address] Urea nitrogen [Mass/Vol] 9 mg/dL Normal 4-19 [facility] Comment on above: Performed By: #### L 300.3900, L300.4310 #### [facility] [address] [place], [address] Emergency Department Summary on 04-18-2025 Emergency Department Summary [facility] Medical Records Department [address] [place] [address] Emergency Department Summary 04/18/25 MR#: [id number] Acct: [id number] Name: ZORA NIXON Rep #: [id number] : 1955 70 From: Benito Jefferson MD PCP: Dr. Daniela Fallon MD Status:REG ER Location: ED HPI History of Present [...] prior strokes that affected the vision of the left eye Narrative Narrative: Patient is a 70-year-old woman with history of breast cancer. She receives chemo every other week. She presents because of dizziness. Without prompting she is instead lightheaded. Upon further questioning there is a component where she feels her balance is off and she [...] was reviewed. 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 node Nontraumatic psoas hematoma Hyperbilirubinemia Severe anemia Non-ST elevation [place] (NSTEMI) Rhabdomyolysis Thrombocytopenia CAD (coronary artery disease) Chronic pain Atrial fibrillation ICD (implantable cardioverter-defibrill ator) in place Urinary urgency Metastasis to bone [...] (gastroesophageal reflux disease) Hyperlipemia Hypertension Home Medications ???Medication ???Instructions ???Recorded ???Last Taken ???Type aspirin 81 mg chewable tablet 81 mg PO DAILY 11/23/17 06/03/24 H istory melatonin 10 mg capsule 10 mg PO HS PRN sleep 11/23/17 History calcium carbonate 600 mg PO BID 06/30/18 06/03/24 Hi story amlodipine 10 mg tablet 10 mg PO QDAY #90 tabs 05/11/24 Rx nitroglycerin 0.4 mg sublingual See Rx Instructions .Route 4 Unknown Rx tablet .COMPLEX #75 tabs rosuvastatin 20 mg tablet 20 mg PO DAILY #90 tabs 05/11/24 0 06/03/24 Rx sertraline 100 mg tablet 100 mg PO QDAY #90 tabs 05/11/24 0 06/03/24 Rx handicap placard #1 ea 09/01/24 Unknown Rx cholecalciferol (vitamin D3) 50 50 mcg PO DAILY 12/08/24 Unknown H istory mcg (2,000 unit) capsule (Vitamin D3) pantoprazole 40 mg tablet,delayed 40 mg PO BID 12/08/24 Unknown His tory release sotalol 80 mg tablet (Betapace) 80 mg PO DAILY 12/08/24 Unknown Hi story cephalexin 500 mg capsule 500 mg PO Q12H #14 caps 02/06/25 U nknown Rx prednisone 10 mg tablet 10 mg PO DIRECTED #30 tabs 01/17 12/12 Unknown Rx trazodone 100 mg tablet 100 mg PO QHS PRN insomnia #90 tab s 02/19/25 Unknown Rx lisinopril 40 mg tablet 40 mg PO DAILY 04/18/25 Unknown Hi story Allergy/AdvReac Type Severity Reaction Status Date / Time No Known Allergies Allergy Verified 04/18/25 16:22 Family History (Reviewed 04/18/25 (more content not included)... Normal [facility] Eosinophil percentageOrdered By: Benito Jefferson on 04-18-2025 Eosinophils/100 WBC (Bld) 1.0 % 0-5 [facility] Erythrocyte distribution wid th ratioOrdered By: Benitorobles Jefferson on 04-18-2025 Erythrocyte distribution width (RBC) [Ratio] 14.6 % 11.6-14.6 [facility] Erythrocyte distribution wid th standard deviationOrdered By: Benitorobles Jefferson on 04-18-2025 Erythrocyte distribution width (RBC) [Ratio] 48.8 fl High 35.1-43.9 [facility] Glomerular filtration rate ( GFR) estimation/1.73 sq m using serum, plasma, or whole bOrdered By: Benitorobles Jefferson on 04-18-2025 GFR/1.73 sq M.predicted among non-blacks MDRD (S/P/Bld) [Vol rate/Area] 88 mL/min/{1.73_m2} >60 [facility] Comment on above: mL/min/1.73m2 CKD-EP I Creatinine Equation (2020) Hematocrit Auto (Bld) [Volum e fraction]Ordered By: Benito Jefferson on 04-18-2025 Hematocrit (Bld) [Volume fraction] 28.0 % Low 37-47 [facility] Hemoglobin measurementOrdere d By: Benito Jefferson on 04-18-2025 Hemoglobin (Bld) [Mass/Vol] 9.6 g/dL Low 12.0-15.0 [facility] Immature granulocytes/100 WB C Auto (Bld)Ordered By: Benito Jefferson on 04-18-2025 Immature granulocytes/100 WBC (Bld) 0.400 % 0.0-0.9 [facility] Comment on above: IG% - Immature Granu locytes (promyelocytes, myelocytes and metamyelocytes) > 1% indicates that a LEFT SHIFT is Present. Laboratory - Chemistry and C hemistry - challengeOrdered By: Benito Jefferson on 04-18-2025 AST [Catalytic activity/Vol] 48 U/L High <32 [facility] MCV (mean corpuscular volume ) determinationOrdered By: Benito Jefferson on 04-18-2025 MCV (RBC) [Entitic vol] 92.1 fL 81-99 [facility] Mean corpuscular hemoglobin (MCH) determinationOrdered By: Benitorobles Jeffesron on 04-18-2025 MCH (RBC) [Entitic mass] 31.6 pg 27.0-32.0 [facility] Mean corpuscular hemoglobin concentration (MCHC) determinationOrdered By: Benitorobles Jefferson on 04-18-2025 MCHC (RBC) [Mass/Vol] 34.3 g/dL 32-36 [facility] Mean platelet volume determi nationOrdered By: Benitorobles Jefferson on 04-18-2025 Platelet mean volume (Bld) [Entitic vol] 10.4 fL 6.2-12.0 [facility] Monocyte percentageOrdered B y: Benito Jefferson on 04-18-2025 Monocytes/100 WBC (Bld) 4.8 % 0-10 [facility] Neutrophil percentageOrdered By: Benitorobles Jefferson on 04-18-2025 Neutrophils/100 WBC (Bld) 76.0 % High 47-70 [facility] Nucleated red blood cell per centageOrdered By: Benitorobles Jefferson on 04-18-2025 Nucleated RBC/100 WBC (Bld) [Ratio] 0 % 0-5 [facility] Platelet countOrdered By: Adelaide Jefferson on 04-18-2025 Platelets (Bld) [#/Vol] 121 10*3/uL Low 150-450 [facility] Potassium measurement (mass/ volume)Ordered By: Benitorobles Jefferson on 04-18-2025 Potassium (Unsp spec) [Mass/Vol] 3.7 mmol/L 3.3-5.1 [facility] RBC Auto (Bld) [#/Vol]Ordere d By: Benitorobles Jefferson on 04-18-2025 RBC (Bld) [#/Vol] 3.04 10*6/uL Low 4.2-5.4 [facility] Serum creatinine measurement (mass/volume)Ordered By: Benito Jefferson on 04-18-2025 Creatinine [Mass/Vol] 0.73 mg/dL 0.70-1.20 [facility] Serum globulin measurementOr dered By: Benito Jefferson on 04-18-2025 Globulin (S) [Mass/Vol] 2.8 g/dL 2.2-4.2 [facility] Serum glucose measurement (m ass/volume)Ordered By: Benito Jefferson on 04-18-2025 Glucose [Mass/Vol] 110 mg/dL High 70-99 [facility] Serum or plasma alanine mohr otransferase (ALT) measurementOrdered By: Benito Jefferson on 04-18-2025 ALT [Catalytic activity/Vol] 40 U/L High <35 [facility] Serum or plasma albumin robert urement (mass/volume)Ordered By: Benito Jefferson on 04-18-2025 Albumin [Mass/Vol] 3.7 g/dL 3.4-4.8 [facility] Serum or plasma albumin/glob ulin mass ratioOrdered By: Benito Jefferson on 04-18-2025 Albumin/Globulin [Mass ratio] 1.3 {ratio} 0.9-2.4 [facility] Serum or plasma alkaline sofía sphatase measurementOrdered By: Benito Jefferson on 04-18-2025 ALP [Catalytic activity/Vol] 180 U/L High 35-104 [facility] Serum or plasma calcium robert urement (mass/volume)Ordered By: Benito Jefferson on 04-18-2025 Calcium [Mass/Vol] 8.6 mg/dL 7.6-11.0 [facility] Serum or plasma urea nitroge n measurement (mass/volume)Ordered By: Benito Jefferson on 04-18-2025 Urea nitrogen [Mass/Vol] 9 mg/dL 4-19 [facility] Sodium levelOrdered By: Benito Jefferson on 04-18-2025 Sodium [Moles/Vol] 127 mmol/L Low 133-145 [facility] Total proteinOrdered By: Benito Jefferson on 04-18-2025 Protein [Mass/Vol] 6.5 g/dL 5.9-8.4 [facility] White blood cell (WBC) count Ordered By: Benito Jefferson on 04-18-2025 WBC (Bld) [#/Vol] 7.2 10*3/uL 4.4-11.0 [facility] Internal Medicine Office Vis iton 04-05-2025 Internal Medicine Office Visit [facility] [address] [place] [address] [place] [address] OFFICE VISIT Date of Service: 04/05/25 MR#: [id number] Acct: [id number] Name: ZORA NIXON Rep #: [id number] : 1955 Provider: GEORGIANA ramirez Age/Sex: 70/F [place] [facility] [place]: Signed Intake Vital Signs 02/06/25 13:04 04/05/25 14:27 Height 5 ft 5 ft Weight: 125 lb 121 lb 4 oz BMI 24.4 23.6 BP 114/62 104/58 L Blood Pressure Location Lt brachial Lt brachial Position Sitting Sitting Respiration 14 12 Pulse 74 81 Pulse Source Monitor Monitor Temp 97.6 F L 96.6 F L Temp Source Temporal Temporal Pulse Oximetry (%) 96 95 Oxygen Delivery Method room air room air Intake Visit Reasons: FEVER - NOT FEELING WELL Chief Complaint: sick Sinter Feeder Required: No Accompanied by: Self Is patient in pain?: No Allergies No Known Allergies Allergy (Verified 04/05/25 14:22) Medications ???Medication ???Instructions ???Recorded ???Confirmed ???Type aspirin 81 mg chewable tablet 81 mg PO DAILY 11/23/17 04/05/25 H istory melatonin 10 mg capsule 10 mg PO HS PRN sleep 11/23/17 History calcium carbonate 600 mg PO BID 06/30/18 04/05/25 Hi story amlodipine 10 mg tablet 10 mg PO QDAY #90 tabs 05/11/24 Rx nitroglycerin 0.4 mg sublingual See Rx Instructions .Route 4 04/05/25 Rx tablet .COMPLEX #75 tabs rosuvastatin 20 mg tablet 20 mg PO DAILY #90 tabs 05/11/24 0 04/05/25 Rx sertraline 100 mg tablet 100 mg PO QDAY #90 tabs 05/11/24 0 04/05/25 Rx handicap plackimberly #1 ea 09/01/24 04/05/25 Rx cholecalciferol (vitamin D3) 50 50 mcg PO DAILY 12/08/24 04/05/25 History mcg (2,000 unit) capsule (Vitamin D3) lisinopril 5 mg tablet 5 mg PO DAILY 12/08/24 04/05/25 Hi story pantoprazole 40 mg tablet,delayed 40 mg PO BID 12/08/24 04/05/25 Hi story release sotalol 80 mg tablet (Betapace) 80 mg PO DAILY 12/08/24 04/05/25 H istory cephalexin 500 mg capsule 500 mg PO Q12H #14 caps 02/06/25 0 04/05/25 Rx prednisone 10 mg tablet 10 mg PO DIRECTED #30 tabs 01/1704/05/25 Rx trazodone 100 mg tablet 100 mg PO QHS PRN insomnia #90 tab s 02/19/25 04/05/25 Rx Have you fallen in the past year?: No PFSH Medical History Neutropenic fever Gastroenteritis Breast cancer metastasized to axillary lymph node Nontraumatic psoas hematoma Hyperbilirubinemia Severe anemia Non-ST elevation [place] (NSTEMI) Rhabdomyolysis Thrombocytopenia CAD (coronary artery disease) Chronic pain Atrial fibrillation ICD (implantable cardioverter-defibrill ator) in place Urinary urgency Metastasis to bone [...] participate in: none HPI HPI Chief Complaint: sick Details: ZORA NIXON, is a 70 F who presents to the office today for complaints of not feeling well. States 2 days ago had a temperature of 99.9 headache stomachache and that her blood pressure has been running low for the last couple of months. States she is also felt woozy and dizzy when moving and changing positions quickly for the last few months. Patient states that today her symptoms have improved she is feeling less of a headache and's her stomachache is resolving. She is concerned about her blood pressure she sees Dr. Ambrosio for cardiology. She had chemo on Wednesday where they did blood work reviewed results on patient's portal and lab results are similar to her previo (more content not included)... Normal [facility] CBC W Auto Differential pane l (Bld)on 04-03-2025 Basophils (Bld) [#/Vol] 0.01 x10*3/uL Normal 0.00-0.10 [facility] Comment on above: Performed By: #### 5 7021-8 ####RUEL Yi ([id number])[facility] ([facility])[address] [place] [address] Basophils/100 WBC (Bld) 0.2 % Normal 0.0-2.0 [facility] Comment on above: Performed By: #### 5 7021-8 ####RUEL Yi ([id number])[facility] ([facility])[address] [place] [address] Eosinophils (Bld) [#/Vol] 0.07 x10*3/uL Normal 0.00-0. 40 [facility] Comment on above: Performed By: #### 5 7021-8 ####RUEL Yi ([id number])[facility] ([facility])[address] [place] [address] Eosinophils/100 WBC (Bld) 1.5 % Normal 0.0-6.0 [facility] Comment on above: Performed By: #### 5 7021-8 ####RUEL Yi ([id number])[facility] ([facility])[address] [place] [address] Erythrocyte distribution width (RBC) [Ratio] 14.8 % High 11.5-14.5 [facility] Comment on above: Performed By: #### 5 7021-8 ####RUEL Yi ([id number])[facility] ([facility])[address] [place] [address] Hematocrit (Bld) [Volume fraction] 32.2 % Low 36.0-46.0 [facility] Comment on above: Performed By: #### 5 7021-8 ####RUEL Yi ([id number])[facility] ([facility])[address] [place] [address] Hemoglobin (Bld) [Mass/Vol] 11.0 g/dL Low 12.0-16.0 [facility] Comment on above: Performed By: #### 5 7021-8 ####RUEL Yi ([id number])[facility] ([facility])[address] [place] [address] Immature granulocytes (Bld) [#/Vol] 0.01 x10*3/uL Normal 0.00-0.50 [facility] Comment on above: Performed By: #### 5 7021-8 ####RUEL Yi ([id number])[facility] ([facility])[address] [place] [address] Immature granulocytes/100 WBC (Bld) 0.2 % Normal 0.0-0.9 [facility] Comment on above: Result Comment: Krystle ture Granulocyte Count (IG) includes promyelocytes, myelocytes and metamyelocytes but does not include bands. Percent differential counts (%) should be interpreted in the context of the absolute cell counts (cells/UL). Performed By: #### 5 7021-8 ####RUEL Yi ([id number])[facility] ([facility])[address] [place] [place] [address] Lymphocytes (Bld) [#/Vol] 0.75 x10*3/uL Low 0.80-3. 00 [facility] Comment on above: Performed By: #### 5 7021-8 ####RUEL Yi ([id number])[facility] ([facility])[address] [place] [address] 51998 Lymphocytes/100 WBC (Bld) 16.5 % Normal 13.0-44.0 [facility] Comment on above: Performed By: #### 5 7021-8 ####RUEL Yi ([id number])[facility] ([facility])[address] [place] [address] 40178 MCH (RBC) [Entitic mass] 32.5 pg Normal 26.0-34.0 [facility] Comment on above: Performed By: #### 5 7021-8 ####RUEL Yi ([id number])[facility] ([facility])[address] [place] [address] 23831 MCHC (RBC) [Mass/Vol] 34.2 g/dL Normal 32.0-36.0 [facility] Comment on above: Performed By: #### 5 7021-8 ####RUEL Yi ([id number])[facility] ([facility])[address] [place] [address] 50229 MCV (RBC) [Entitic vol] 95 fL Normal 80-100 [facility] Comment on above: Performed By: #### 5 7021-8 ####RUEL Yi ([id number])[facility] ([facility])[address] [place] [address] 61056 Monocytes (Bld) [#/Vol] 0.69 x10*3/uL Normal 0.05-0.80 [facility] Comment on above: Performed By: #### 5 7021-8 ####RUEL Yi ([id number])[facility] ([facility])[address] [place] [address] 91266 Monocytes/100 WBC (Bld) 15.2 % Normal 2.0-10.0 [facility] Comment on above: Performed By: #### 5 7021-8 ####RUEL Yi ([id number])[facility] ([facility])[address] [place] [address] Neutrophils (Bld) [#/Vol] 3.02 x10*3/uL Normal 1.60-5. 50 [facility] Comment on above: Result Comment: Perc ent differential counts (%) should be interpreted in the context of the absolute cell counts (cells/uL). Performed By: #### 5 7021-8 ####RUEL Yi ([id number])[facility] ([facility])[address] [place] [address] 95261 Neutrophils/100 WBC (Bld) 66.4 % Normal 40.0-80.0 [facility] Comment on above: Performed By: #### 5 7021-8 ####RUEL Yi ([id number])[facility] ([facility])[address] [place] [address] 03934 Nucleated RBC/100 WBC (Bld) [Ratio] Normal [facility] Comment on above: Result Comment: Not Measured Performed By: #### 5 7021-8 ####RUEL Yi ([id number])[facility] ([facility])[address] [place] [address] 66818 Platelets (Bld) [#/Vol] 146 x10*3/uL Low 150-450 [facility] Comment on above: Performed By: #### 5 7021-8 ####RUEL Yi ([id number])[facility] ([facility])[address] [place] [address] 70808 RBC (Bld) [#/Vol] 3.38 x10*6/uL Low 4.00-5.20 [facility] Comment on above: Performed By: #### 5 7021-8 ####RUEL Yi ([id number])[facility] ([facility])[address] [place] [address] 30542 WBC (Bld) [#/Vol] 4.6 x10*3/uL Normal 4.4-11.3 [facility] Comment on above: Performed By: #### 5 7021-8 ####RUEL Yi ([id number])[facility] ([facility])[address] [place] [address] Cancer Ag 27-29on 04-03-2025 Cancer Ag 27-29 Qn 28.4 [arb'U]/mL Normal 0.0-38.6 [facility] Comment on above: Order Comment: CA 27 .29 testing is performed by chemiluminescent immunoassay using the Entegrion. Values obtained with different analytic methods cannot be used interchangeably.Serum CA 27.29 measurement is intended for use as an aid in monitoring patients previously treated for Stage II or Stage III breast cancer. This assay is not intended for creening or diagnosis of cancer in the general population. The results must not be used as the sole means for clinical diagnosis or patient management decisions. Performed By: #### 1 7842-6 ####DIANE Nick ([id number])[facility] ([facility])[address] [place] [address] Comprehensive metabolic 2000 panelon 04-03-2025 Albumin BCP dye [Mass/Vol] 4.0 g/dL Normal 3.4-5.0 [facility] Comment on above: Performed By: #### 2 4323-8 ####DIANE Nick ([id number])[facility] ([facility])[address] [place] [address] ALP [Catalytic activity/Vol] 134 U/L Normal 33-136 [facility] Comment on above: Performed By: #### 2 4323-8 ####DIANE Nick ([id number])[facility] ([facility])[address] [place] [address] ALT With P-5'-P [Catalytic activity/Vol] 18 U/L Normal 7-45 [facility] Comment on above: Result Comment: Maria E ents treated with Sulfasalazine may generate falsely decreased results for ALT. Performed By: #### 2 4323-8 ####DIANE Nick ([id number])[facility] ([facility])[address] [place] [address] Anion gap [Moles/Vol] 16 mmol/L Normal 10-20 [facility] Comment on above: Performed By: #### 2 4323-8 ####DIANE Nick ([id number])[facility] ([facility])[address] [place] [address] AST With P-5'-P [Catalytic activity/Vol] 20 U/L Normal 9-39 [facility] Comment on above: Performed By: #### 2 4323-8 ####DIANE Nick ([id number])[facility] ([facility])[address] [place] [address] Bilirubin [Mass/Vol] 0.8 mg/dL Normal 0.0-1.2 [facility] Comment on above: Performed By: #### 2 4323-8 ####DIANE Nick ([id number])[facility] ([facility])[address] [place] [address] Calcium [Mass/Vol] 8.8 mg/dL Normal 8.6-10.6 [facility] Comment on above: Performed By: #### 2 4323-8 ####DIANE Nick ([id number])[facility] ([facility])[address] [place] [address] Chloride [Moles/Vol] 97 mmol/L Low 98-107 [facility] Comment on above: Performed By: #### 2 4323-8 ####DIANE MOCTEZUMA L ([id number])[facility] ([facility])[address] [place] [address] CO2 [Moles/Vol] 25 mmol/L Normal 21-32 [facility] Comment on above: Performed By: #### 2 4323-8 ####DIANE MOCTEZUMA L ([id number])[facility] ([facility])[address] [place] [address] Creatinine [Mass/Vol] 0.89 mg/dL Normal 0.50-1.05 [facility] Comment on above: Performed By: #### 2 4323-8 ####DIANE Nick ([id number])[facility] ([facility])[address] [place] [address] Glomerular filtration rate/1.73 sq M.predicted 69 mL/min/1.73m*2 Normal >60 [facility] Comment on above: Result Comment: Calc ulations of estimated GFR are performed using the 2020 CKD-EPI Study Refit equation without the race variable for the IDMS-Traceable creatinine methods.https://jasn.asnjournals.org/content/early/ 2/ASN.9275751871 Performed By: #### 2 4323-8 ####DIANE Nick ([id number])[facility] ([facility])[address] [place] [address] Glucose [Mass/Vol] 104 mg/dL High 74-99 [facility] Comment on above: Performed By: #### 2 4323-8 ####DIANE Nick ([id number])[facility] ([facility])[address] [place] [address] Potassium [Moles/Vol] 4.0 mmol/L Normal 3.5-5.3 [facility] Comment on above: Performed By: #### 2 4323-8 ####DIANE Nick ([id number])[facility] ([facility])[address] [place] [address] Protein [Mass/Vol] 6.4 g/dL Normal 6.4-8.2 [facility] Comment on above: Performed By: #### 2 4323-8 ####DIANE Nick ([id number])[facility] ([facility])[address] [place] [address] Sodium [Moles/Vol] 134 mmol/L Low 136-145 [facility] Comment on above: Performed By: #### 2 4323-8 ####DIANE MALLOYLOYDA Nick ([id number])[facility] ([facility])[address] [place] [address] Urea nitrogen [Mass/Vol] 15 mg/dL Normal 6-23 [facility] Comment on above: Performed By: #### 2 4323-8 ####DIANE CABRALIRMALOYDA Nick ([id number])[facility] ([facility])[address] [place] [address] CT CHEST ABDOMEN PELVIS W IV CONTRASTon 03-21-2025 CT CHEST ABDOMEN PELVIS W IV CONTRAST Interpreted By: Renny Reveles, STUDY: CT CHEST ABDOMEN PELVIS W IV CONTRAST; 03/21/2025 9:40 am INDICATION: Signs/Symptoms:IV breast cancer restaging ct. COMPARISON: PET CT 10/26/2028 ACCESSION NUMBER(S): [id number] ORDERING CLINICIAN: NELI COX TECHNIQUE: CT of the chest, abdomen, and pelvis was performed. Contiguous axial images were obtained at 3 mm slice thickness through the chest, abdomen and pelvis. Coronal and sagittal reconstructions at 3 mm slice thickness were performed. ml of contrast were administered intravenously without immediate complication. FINDINGS: CHEST: LUNG/PLEURA/LARGE AIRWAYS: No endobronchial lesion is seen. No consolidation, pneumothorax, or effusion. Chronic appearing bilateral reticular in parenchymal changes. No new or enlarging pulmonary mass. VESSELS: The thoracic aorta is unremarkable with respect course, caliber, and contour. The main pulmonary artery and its branches are unremarkable with respect course, caliber, and contour Postsurgical changes from median sternotomy for presumed CABG. HEART: Heart size unchanged. 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 Left-sided pulse generator device. Right-sided medication port. No pericardial effusion. MEDIASTINUM AND IRVING: No pathologic enlarged mediastinal lymph nodes by CT criteria. Subcentimeter mediastinal lymph nodes are noted, nonspecific and possibly reactive. Small sliding-type hiatal hernia. CHEST WALL AND LOWER NECK: No acute osseous abnormality. Confluent sclerotic lesions of the T4 and T9 vertebral bodies compatible previously seen metastasis. Multilevel presumed degenerative changes throughout the imaged spine. Within region of previously seen hypermetabolic right axillary lymph nodes, there is no new or enlarging lymph nodes detected there appears to be a metallic clip in the right axilla. Within region of previously seen hypermetabolic lesion of the right lower chest wall anteriorly within the deep lateral breast soft tissues, there is a ovoid soft tissue density measuring up to 3.4 x 1.2 cm containing a central density which may represent a biopsy clip. ABDOMEN: LIVER: No new suspicious lesions. BILE DUCTS: No significant biliary dilitation. GALLBLADDER: Cholelithiasis. PANCREAS: Unremarkable. SPLEEN: Unremarkable. ADRENAL GLANDS: Unremarkable. KIDNEYS AND URETERS: The kidneys enhance symmetrically. No hydroureteronephrosis or nephroureterolithiasis is identified. Partially calcified eccentric lesion of the right kidney lower pole which is not hypermetabolic on comparison exam from 10/26/2024. PELVIS: BLADDER: Decompressed. REPRODUCTIVE ORGANS: No pelvic masses. BOWEL: Fluid levels within the colon which are nonspecific, however may indicate a nonspecific diarrheal illness. No pathologic distension of visualized large or small bowel. Small sliding-type hiatal hernia. VESSELS: There is no aneurysmal dilatation of the abdominal aorta. PERITONEUM/RETROPERITO NEUM/LYMPH NODES: No ascites or free air, no fluid collection. No enlarged mesenteric lymph nodes. BONE AND SOFT TISSUE: No acute osseous abnormality. Multilevel presumed degenerative changes are noted throughout the imaged spine. No acute abnormality of the abdominal wall soft tissues. IMPRESSION: CHEST: 1. No new or worsening metastatic [...] Renny Reveles 03/22/2025 10:56 AM Dictation workstation: [id number] Normal [facility] CBC W Auto Differential pane l (Bld)on 03-08-2025 Basophils (Bld) [#/Vol] 0.00 x10*3/uL Normal 0.00-0.10 [facility] Comment on above: Performed By: #### 5 7021-8 ####RUEL Yi ([id number])[facility] ([facility])[address] [place] [address] 49719 Basophils/100 WBC (Bld) 0.0 % Normal 0.0-2.0 [facility] Comment on above: Performed By: #### 5 7021-8 ####RUEL Yi ([id number])[facility] ([facility])[address] [place] [address] 37360 Eosinophils (Bld) [#/Vol] 0.08 x10*3/uL Normal 0.00-0. 40 [facility] Comment on above: Performed By: #### 5 7021-8 ####RUEL Yi ([id number])[facility] ([facility])[address] [place] [address] 59039 Eosinophils/100 WBC (Bld) 1.9 % Normal 0.0-6.0 [facility] Comment on above: Performed By: #### 7021-8 ####RUEL Yi ([id number])[facility] ([facility])[address] [place] [address] 65925 Erythrocyte distribution width (RBC) [Ratio] 16.1 % High 11.5-14.5 [facility] Comment on above: Performed By: #### 5 7021-8 ####RUEL Yi ([id number])[facility] ([facility])[address] [place] [address] 91169 Hematocrit (Bld) [Volume fraction] 30.0 % Low 36.0-46.0 [facility] Comment on above: Performed By: #### 5 7021-8 ####RUEL Yi ([id number])[facility] ([facility])[address] [place] [address] 77085 Hemoglobin (Bld) [Mass/Vol] 10.2 g/dL Low 12.0-16.0 [facility] Comment on above: Performed By: #### 7021-8 ####RUEL Yi ([id number])[facility] ([facility])[address] [place] [address] 56150 Immature granulocytes (Bld) [#/Vol] 0.00 x10*3/uL Normal 0.00-0.50 [facility] Comment on above: Performed By: #### 5 7021-8 ####RUEL Yi ([id number])[facility] ([facility])[address] [place] [address] 01111 Immature granulocytes/100 WBC (Bld) 0.0 % Normal 0.0-0.9 [facility] Comment on above: Result Comment: Krystle ture Granulocyte Count (IG) includes promyelocytes, myelocytes and metamyelocytes but does not include bands. Percent differential counts (%) should be interpreted in the context of the absolute cell counts (cells/UL). Performed By: #### 5 7021-8 ####RUEL Yi ([id number])[facility] ([facility])[address] [place] [address] 39333 Lymphocytes (Bld) [#/Vol] 1.08 x10*3/uL Normal 0.80-3. 00 [facility] Comment on above: Performed By: #### 5 7021-8 ####RUEL Yi ([id number])[facility] ([facility])[address] [place] [address] 29149 Lymphocytes/100 WBC (Bld) 25.2 % Normal 13.0-44.0 [facility] Comment on above: Performed By: #### 5 7021-8 ####RUEL Yi ([id number])[facility] ([facility])[address] [place] [address] 44205 MCH (RBC) [Entitic mass] 32.3 pg Normal 26.0-34.0 [facility] Comment on above: Performed By: #### 5 7021-8 ####RUEL Yi ([id number])[facility] ([facility])[address] [place] [address] 41949 MCHC (RBC) [Mass/Vol] 34.0 g/dL Normal 32.0-36.0 [facility] Comment on above: Performed By: #### 5 7021-8 ####RUEL Yi ([id number])[facility] ([facility])[address] [place] [address] 46523 MCV (RBC) [Entitic vol] 95 fL Normal 80-100 [facility] Comment on above: Performed By: #### 5 7021-8 ####RUEL Yi ([id number])[facility] ([facility])[address] [place] [address] 78536 Monocytes (Bld) [#/Vol] 0.35 x10*3/uL Normal 0.05-0.80 [facility] Comment on above: Performed By: #### 5 7021-8 ####RUEL Yi ([id number])[facility] ([facility])[address] [place] [address] 86309 Monocytes/100 WBC (Bld) 8.2 % Normal 2.0-10.0 [facility] Comment on above: Performed By: #### 5 7021-8 ####RUEL Yi ([id number])[facility] ([facility])[address] [place] [address] 68366 Neutrophils (Bld) [#/Vol] 2.78 x10*3/uL Normal 1.60-5. 50 [facility] Comment on above: Result Comment: Perc ent differential counts (%) should be interpreted in the context of the absolute cell counts (cells/uL). Performed By: #### 5 7021-8 ####RUEL Yi ([id number])[facility] ([facility])[address] [place] [address] 88828 Neutrophils/100 WBC (Bld) 64.7 % Normal 40.0-80.0 [facility] Comment on above: Performed By: #### 5 7021-8 ####RUEL Yi ([id number])[facility] ([facility])[address] [place] [address] 97519 Nucleated RBC/100 WBC (Bld) [Ratio] Normal [facility] Comment on above: Result Comment: Not Measured Performed By: #### 5 7021-8 ####RUEL Yi ([id number])[facility] ([facility])[address] [place] [address] 09326 Platelets (Bld) [#/Vol] 161 x10*3/uL Normal 150-450 [facility] Comment on above: Performed By: #### 5 7021-8 ####RUEL Yi ([id number])[facility] ([facility])[address] [place] [address] 15606 RBC (Bld) [#/Vol] 3.16 x10*6/uL Low 4.00-5.20 [facility] Comment on above: Performed By: #### 5 7021-8 ####RUEL Yi ([id number])[facility] ([facility])[address] [place] [address] 64622 WBC (Bld) [#/Vol] 4.3 x10*3/uL Low 4.4-11.3 [facility] Comment on above: Performed By: #### 5 7021-8 ####RUEL Yi ([id number])[facility] ([facility])[address] [place] [address] 91348 Cancer Ag 27-29on 03-08-2025 Cancer Ag 27-29 Qn 28.9 [arb'U]/mL Normal 0.0-38.6 [facility] Comment on above: Order Comment: CA 27 .29 testing is performed by chemiluminescent immunoassay using the Entegrion. Values obtained with different analytic methods cannot be used interchangeably.Serum CA 27.29 measurement is intended for use as an aid in monitoring patients previously treated for Stage II or Stage III breast cancer. This assay is not intended for creening or diagnosis of cancer in the general population. The results must not be used as the sole means for clinical diagnosis or patient management decisions. Performed By: #### 1 7842-6 ####DIANE Nick ([id number])[facility] ([facility])[address] [place], [place] [id number] Comprehensive metabolic 2000 panelon 03-08-2025 Albumin BCP dye [Mass/Vol] 4.1 g/dL Normal 3.4-5.0 [facility] Comment on above: Performed By: #### 2 4323-8 ####DIANE Nick ([id number])[facility] ([facility])[address] [place] [address] ALP [Catalytic activity/Vol] 96 U/L Normal 33-136 [facility] Comment on above: Performed By: #### 2 4323-8 ####DIANE Nick ([id number])[facility] ([facility])[address] [place] [address] ALT With P-5'-P [Catalytic activity/Vol] 31 U/L Normal 7-45 [facility] Comment on above: Result Comment: Maria E ents treated with Sulfasalazine may generate falsely decreased results for ALT. Performed By: #### 2 4323-8 ####DIANE Nick ([id number])[facility] ([facility])[address] [place] [address] Anion gap [Moles/Vol] 10 mmol/L Normal 10-20 [facility] Comment on above: Performed By: #### 2 4323-8 ####DIANE Nick ([id number])[facility] ([facility])[address] [place] [address] AST With P-5'-P [Catalytic activity/Vol] 30 U/L Normal 9-39 [facility] Comment on above: Performed By: #### 2 4323-8 ####DIANE Nick ([id number])[facility] ([facility])[address] [place] [address] Bilirubin [Mass/Vol] 0.4 mg/dL Normal 0.0-1.2 [facility] Comment on above: Performed By: #### 2 4323-8 ####DIANE Nick ([id number])[facility] ([facility])[address] [place] [address] Calcium [Mass/Vol] 8.5 mg/dL Low 8.6-10.6 [facility] Comment on above: Performed By: #### 2 4323-8 ####DIANE Nick ([id number])[facility] ([facility])[address] [place] [address] Chloride [Moles/Vol] 102 mmol/L Normal 98-107 [facility] Comment on above: Performed By: #### 2 4323-8 ####DIANE Nick ([id number])[facility] ([facility])[address] [place] [address] CO2 [Moles/Vol] 31 mmol/L Normal 21-32 [facility] Comment on above: Performed By: #### 2 4323-8 ####DIANE Nick ([id number])[facility] ([facility])[address] [place] [address] Creatinine [Mass/Vol] 0.79 mg/dL Normal 0.50-1.05 [facility] Comment on above: Performed By: #### 2 4323-8 ####DIANE Nick ([id number])[facility] ([facility])[address] [place] [address] Glomerular filtration rate/1.73 sq M.predicted 80 mL/min/1.73m*2 Normal >60 [facility] Comment on above: Result Comment: Calc ulations of estimated GFR are performed using the 2020 CKD-EPI Study Refit equation without the race variable for the IDMS-Traceable creatinine methods.https://jasn.asnjournals.org/content/early2 2/ASN.9212326546 Performed By: #### 2 4323-8 ####DIANE Nick ([id number])[facility] ([facility])[address] [place] [address] Glucose [Mass/Vol] 98 mg/dL Normal 74-99 [facility] Comment on above: Performed By: #### 2 4323-8 ####DIANE Nick ([id number])[facility] ([facility])[address] [place] [address] Potassium [Moles/Vol] 3.6 mmol/L Normal 3.5-5.3 [facility] Comment on above: Performed By: #### 2 4323-8 ####DIANE Nick ([id number])[facility] ([facility])[address] [place] [address] Protein [Mass/Vol] 6.2 g/dL Low 6.4-8.2 [facility] Comment on above: Performed By: #### 2 4323-8 ####DIANE MOCTEZUMA L ([id number])[facility] ([facility])[address] [place] [address] Sodium [Moles/Vol] 139 mmol/L Normal 136-145 [facility] Comment on above: Performed By: #### 2 4323-8 ####DIANE MOCTEZUMA L ([id number])[facility] ([facility])[address] [place] [address]78 Urea nitrogen [Mass/Vol] 10 mg/dL Normal 6-23 [facility] Comment on above: Performed By: #### 2 4323-8 ####DIANE MOCTEZUMA L ([id number])[facility] ([facility])[address] [place] [address] CBC W Auto Differential pane l (Bld)on 02-20-2025 Basophils (Bld) [#/Vol] 0.02 x10*3/uL Normal 0.00-0.10 [facility] Comment on above: Performed By: #### 5 7021-8 ####RUEL Yi ([id number])[facility] ([facility])[address] [place] [address] 78023 Basophils/100 WBC (Bld) 0.5 % Normal 0.0-2.0 [facility] Comment on above: Performed By: #### 5 7021-8 ####RUEL Yi ([id number])[facility] ([facility])[address] [place] [address] 01789 Eosinophils (Bld) [#/Vol] 0.12 x10*3/uL Normal 0.00-0. 40 [facility] Comment on above: Performed By: #### 5 7021-8 ####RUEL Yi ([id number])[facility] ([facility])[address] [place] [address] Eosinophils/100 WBC (Bld) 2.8 % Normal 0.0-6.0 [facility] Comment on above: Performed By: #### 5 7021-8 ####RUEL Yi ([id number])[facility] ([facility])[address] [place] [address] Erythrocyte distribution width (RBC) [Ratio] 16.5 % High 11.5-14.5 [facility] Comment on above: Performed By: #### 5 7021-8 ####RUEL Yi ([id number])[facility] ([facility])[address] [place] [address] Hematocrit (Bld) [Volume fraction] 32.7 % Low 36.0-46.0 [facility] Comment on above: Performed By: #### 5 7021-8 ####RUEL Yi ([id number])[facility] ([facility])[address] [place] [address] Hemoglobin (Bld) [Mass/Vol] 10.7 g/dL Low 12.0-16.0 [facility] Comment on above: Performed By: #### 5 7021-8 ####RUEL Yi ([id number])[facility] ([facility])[address] [place] [address] Immature granulocytes (Bld) [#/Vol] 0.01 x10*3/uL Normal 0.00-0.50 [facility] Comment on above: Performed By: #### 5 7021-8 ####RUEL Yi ([id number])[facility] ([facility])[address] [place], [place] [address] Immature granulocytes/100 WBC (Bld) 0.2 % Normal 0.0-0.9 [facility] Comment on above: Result Comment: Krystle ture Granulocyte Count (IG) includes promyelocytes, myelocytes and metamyelocytes but does not include bands. Percent differential counts (%) should be interpreted in the context of the absolute cell counts (cells/UL). Performed By: #### 5 7021-8 ####RUEL Yi ([id number])[facility] ([facility])[address] [place] [address] Lymphocytes (Bld) [#/Vol] 1.44 x10*3/uL Normal 0.80-3. 00 [facility] Comment on above: Performed By: #### 5 7021-8 ####RUEL Yi ([id number])[facility] ([facility])[address] [place] [address] Lymphocytes/100 WBC (Bld) 33.3 % Normal 13.0-44.0 [facility] Comment on above: Performed By: #### 5 7021-8 ####RUEL Yi ([id number])[facility] ([facility])[address] [place] [address] MCH (RBC) [Entitic mass] 30.7 pg Normal 26.0-34.0 [facility] Comment on above: Performed By: #### 5 7021-8 ####RUEL Yi ([id number])[facility] ([facility])[address] [place] [address] 41700 MCHC (RBC) [Mass/Vol] 32.7 g/dL Normal 32.0-36.0 [facility] Comment on above: Performed By: #### 5 7021-8 ####RUEL Yi ([id number])[facility] ([facility])[address] [place] [address] MCV (RBC) [Entitic vol] 94 fL Normal 80-100 [facility] Comment on above: Performed By: #### 5 7021-8 ####RUEL Yi ([id number])[facility] ([facility])[address] [place] [address] Monocytes (Bld) [#/Vol] 0.37 x10*3/uL Normal 0.05-0.80 [facility] Comment on above: Performed By: #### 5 7021-8 ####RUEL Yi ([id number])[facility] ([facility])[address] [place] [address] Monocytes/100 WBC (Bld) 8.6 % Normal 2.0-10.0 [facility] Comment on above: Performed By: #### 5 7021-8 ####RUEL Yi ([id number])[facility] ([facility])[address] [place] [address]252 Neutrophils (Bld) [#/Vol] 2.36 x10*3/uL Normal 1.60-5. 50 [facility] Comment on above: Result Comment: Perc ent differential counts (%) should be interpreted in the context of the absolute cell counts (cells/uL). Performed By: #### 5 7021-8 ####RUEL Yi ([id number])[facility] ([facility])[address] [place] [address] 59229 Neutrophils/100 WBC (Bld) 54.6 % Normal 40.0-80.0 [facility] Comment on above: Performed By: #### 5 7021-8 ####RUEL Yi ([id number])[facility] ([facility])[address] [place] [address] 21739 Nucleated RBC/100 WBC (Bld) [Ratio] Normal [facility] Comment on above: Result Comment: Not Measured Performed By: #### 5 7021-8 ####RUEL Yi ([id number])[facility] ([facility])[address] [place] [address] 32982 Platelets (Bld) [#/Vol] 181 x10*3/uL Normal 150-450 [facility] Comment on above: Performed By: #### 5 7021-8 ####RUEL Yi ([id number])[facility] ([facility])[address] [place] [address] 27992 RBC (Bld) [#/Vol] 3.48 x10*6/uL Low 4.00-5.20 [facility] Comment on above: Performed By: #### 5 7021-8 ####RUEL Yi ([id number])[facility] ([facility])[address] [place] [address] WBC (Bld) [#/Vol] 4.3 x10*3/uL Low 4.4-11.3 [facility] Comment on above: Performed By: #### 5 7021-8 ####RUEL Yi ([id number])[facility] ([facility])[address] [place] [address] Cancer Ag 27-29on 02-20-2025 Cancer Ag 27-29 Qn 28.3 [arb'U]/mL Normal 0.0-38.6 [facility] Comment on above: Order Comment: CA 27 .29 testing is performed by chemiluminescent immunoassay using the Entegrion. Values obtained with different analytic methods cannot be used interchangeably.Serum CA 27.29 measurement is intended for use as an aid in monitoring patients previously treated for Stage II or Stage III breast cancer. This assay is not intended for creening or diagnosis of cancer in the general population. The results must not be used as the sole means for clinical diagnosis or patient management decisions. Performed By: #### 1 7842-6 ####DIANE Nick ([id number])[facility] ([facility])[address] [place] [address] Comprehensive metabolic 2000 panelon 02-20-2025 Albumin BCP dye [Mass/Vol] 4.1 g/dL Normal 3.4-5.0 [facility] Comment on above: Performed By: #### 2 4323-8 ####DIANE Nick ([id number])[facility] ([facility])[address] [place] [address] ALP [Catalytic activity/Vol] 106 U/L Normal 33-136 [facility] Comment on above: Performed By: #### 2 4323-8 ####DIANE Nick ([id number])[facility] ([facility])[address] [place] [address] ALT With P-5'-P [Catalytic activity/Vol] 30 U/L Normal 7-45 [facility] Comment on above: Result Comment: Maria E ents treated with Sulfasalazine may generate falsely decreased results for ALT. Performed By: #### 2 4323-8 ####DIANE Nick ([id number])[facility] ([facility])[address] [place] [address] Anion gap [Moles/Vol] 12 mmol/L Normal 10-20 [facility] Comment on above: Performed By: #### 2 4323-8 ####DIANE Nick ([id number])[facility] ([facility])[address] [place] [address] AST With P-5'-P [Catalytic activity/Vol] 33 U/L Normal 9-39 [facility] Comment on above: Performed By: #### 2 4323-8 ####DIANE Nick ([id number])[facility] ([facility])[address] [place] [address] Bilirubin [Mass/Vol] 0.5 mg/dL Normal 0.0-1.2 [facility] Comment on above: Performed By: #### 2 4323-8 ####DIANE Nick ([id number])[facility] ([facility])[address] [place] [address] Calcium [Mass/Vol] 8.4 mg/dL Low 8.6-10.6 [facility] Comment on above: Performed By: #### 2 4323-8 ####DIANE MOCTEZUMA L ([id number])[facility] ([facility])[address] [place] [address] Chloride [Moles/Vol] 102 mmol/L Normal 98-107 [facility] Comment on above: Performed By: #### 2 4323-8 ####DIANE Nick ([id number])[facility] ([facility])[address] [place] [address] CO2 [Moles/Vol] 29 mmol/L Normal 21-32 [facility] Comment on above: Performed By: #### 2 4323-8 ####DIANE Nick ([id number])[facility] ([facility])[address] [place] [address] Creatinine [Mass/Vol] 0.82 mg/dL Normal 0.50-1.05 [facility] Comment on above: Performed By: #### 2 4323-8 ####DIANE Nick ([id number])[facility] ([facility])[address] [place] [address] Glomerular filtration rate/1.73 sq M.predicted 77 mL/min/1.73m*2 Normal >60 [facility] Comment on above: Result Comment: Calc ulations of estimated GFR are performed using the 2020 CKD-EPI Study Refit equation without the race variable for the IDMS-Traceable creatinine methods.https://jasn.asnjournals.org/content/early2 2/ASN.1724675957 Performed By: #### 2 4323-8 ####DIANE Nick ([id number])[facility] ([facility])[address] [place] [address] Glucose [Mass/Vol] 90 mg/dL Normal 74-99 [facility] Comment on above: Performed By: #### 2 4323-8 ####DIANE Nick ([id number])[facility] ([facility])[address] [place] [address] Potassium [Moles/Vol] 3.9 mmol/L Normal 3.5-5.3 [facility] Comment on above: Performed By: #### 2 4323-8 ####DIANE Nick ([id number])[facility] ([facility])[address] [facility] [address] Protein [Mass/Vol] 6.3 g/dL Low 6.4-8.2 [facility] Comment on above: Performed By: #### 2 4323-8 ####DIANE Nick ([id number])[facility] ([facility])[address] [place] [address] Sodium [Moles/Vol] 139 mmol/L Normal 136-145 [facility] Comment on above: Performed By: #### 2 4323-8 ####DIANE Nick ([id number])[facility] ([facility])[address] [place] [address] Urea nitrogen [Mass/Vol] 10 mg/dL Normal 6-23 [facility] Comment on above: Performed By: #### 2 4323-8 ####DINAE Nick ([id number])[facility] ([facility])[address] [place] [address] CAITLIN w/ Reflex Mult Confirmon 02-08-2025 CAITLIN,DIRECT Positive Abnormal Negative [facility] Comment on above: Performed By: #### L 300.3900, L300.4310 #### [facility] [address] [place], [address] ANTI-CENT B AB <0.2 Normal 0.0-0.9 [facility] Comment on above: Performed By: #### L 300.3900, L300.4310 #### [facility] [address] [place], [address] ANTI-DNA (DS)AB <1 Normal 0-9 [facility] Comment on above: Result Comment: Nega tive <5 Equivocal 5 - 9 Positive >9 Performed By: #### L 300.3900, L300.4310 #### [facility] [address] [place], [address] ANTI-SHADIA-1 <0.2 Normal 0.0-0.9 [facility] Comment on above: Performed By: #### L 300.3900, L300.4310 #### [facility] [address] [place], [address] ANTI-SS-A 5.3 AI High 0.0-0.9 [facility] Comment on above: Performed By: #### L 300.3900, L300.4310 #### [facility] [address] [place], [address] ANTI-SS-B 0.4 AI Normal 0.0-0.9 [facility] Comment on above: Performed By: #### L 300.3900, L300.4310 #### [facility] [address] [place], [address] ANTICHROMATIN <0.2 Normal 0.0-0.9 [facility] Comment on above: Performed By: #### L 300.3900, L300.4310 #### [facility] [address] [place], [address] SOFA COVER INSPECTOR Ab <0.2 Normal 0.0-0.9 [facility] Comment on above: Performed By: #### L 300.3900, L300.4310 #### [facility] [address] [place], [address] CHRISTIAN Ab <0.2 Normal 0.0-0.9 [facility] Comment on above: Performed By: #### L 300.3900, L300.4310 #### [facility] [address] [place], [address] ANCAon 02-08-2025 Atypical pANCA <1:20 Normal Neg:<1:20 [facility] Comment on above: Result Comment: The atypical pANCA pattern has been observed in a significant percentage of patients with ulcerative colitis, primary sclerosing cholangitis and autoimmune hepatitis. Performed at: [facility] [id number] Oncology Nurse Navigator: Lizandro Borrego PhD, Phone: [phone] Performed By: #### L 300.3900, L300.4310 #### [facility] [address] [place], [address] Cytoplasmic Ab <1:20 Normal Neg:<1:20 [facility] Comment on above: Performed By: #### L 300.3900, L300.4310 #### [facility] [address] [place], [place], [address] Perinuclear Ab. <1:20 Normal Neg:<1:20 [facility] Comment on above: Result Comment: The presence of positive fluorescence exhibiting P-ANCA or C-ANCA patterns alone is not specific for the diagnosis of Racheal's Granulomatosis (WG) or microscopic polyangiitis. Decisions about treatment should not be based solely on ANCA IFA results. The International ANCA [employer] Consensus recommends follow up testing of positive sera with both DC- 3 and MPO-ANCA enzyme immunoassays. As many as 5% serum samples are positive only by EIA. Ref. AM J Clin Pathol 1999;111:507-513. Performed By: #### L 300.3900, L300.4310 #### [facility] [address] [place], [place], [address] CAITLIN serumOrdered By: Aaron Herrera on 02-06-2025 Anti-Nuclear Antibody Screen Positive High Negative [facility] Atypical perinuclear antineu trophil cytoplasmic antibodies measurementOrdered By: Aaron Herrear on 02-06-2025 Atypical p-ANCA <1:20 titer Neg:<1:20 [facility] Comment on above: The atypical pANCA p attern has been observed in asignificant percentage of patients with ulcerative colitis,primary sclerosing cholangitis and autoimmune hepatitis.Performed at: - [facility] [id number] Director: Lizandro Borrego PhD, Phone: [phone] CBC-Complete Blood Cnt No Di ffon 02-06-2025 Erythrocyte distribution width (RBC) [Ratio] 15.2 % High 11.6-14.6 [facility] Comment on above: Performed By: #### L 300.3900, L300.4310 #### [facility] [address] [place], [address] Hematocrit (Bld) [Volume fraction] 29.3 % Low 37-47 [facility] Comment on above: Performed By: #### L 300.3900, L300.4310 #### [facility] [address] [place], [address] Hemoglobin (Bld) [Mass/Vol] 9.9 g/dL Low 12.0-15.0 [facility] Comment on above: Performed By: #### L 300.3900, L300.4310 #### [facility] [address] [place], [address] MCH (RBC) [Entitic mass] 30.8 pg Normal 27.0-32.0 [facility] Comment on above: Performed By: #### L 300.3900, L300.4310 #### [facility] [address] [place], [address] MCHC (RBC) [Mass/Vol] 33.8 g/dL Normal 32-36 [facility] Comment on above: Performed By: #### L 300.3900, L300.4310 #### [facility] [address] [place], [address] MCV (RBC) [Entitic vol] 91.3 fL Normal 81-99 [facility] Comment on above: Performed By: #### L 300.3900, L300.4310 #### [facility] [address] [place], [address] Platelet mean volume (Bld) [Entitic vol] 10.1 fL Normal 6.2-12.0 [facility] Comment on above: Performed By: #### L 300.3900, L300.4310 #### [facility] [address] [place], [address] Platelets (Bld) [#/Vol] 91 10*3/uL Low 150-450 [facility] Comment on above: Performed By: #### L 300.3900, L300.4310 #### [facility] [address] [place], [address] RBC (Bld) [#/Vol] 3.21 10*6/uL Low 4.2-5.4 [facility] Comment on above: Performed By: #### L 300.3900, L300.4310 #### [facility] [address] [place], [address] RDW SD 51.4 fl High 35.1-43.9 [facility] Comment on above: Performed By: #### L 300.3900, L300.4310 #### [facility] [address] [place], [address] WBC (Bld) [#/Vol] 3.3 10*3/uL Low 4.4-11.0 [facility] Comment on above: Performed By: #### L 300.3900, L300.4310 #### [facility] [address] [place], [address] CRPon 02-06-2025 C-REACTIVE PROT 102.00 mg/L High 0.0-3.0 [facility] Comment on above: Performed By: #### L 300.3900, L300.4310 #### [facility] [address] [place], [address] CRP [Mass/Vol]Ordered By: Migdalia Herrera on 02-06-2025 C-Reactive Protein Extended Range 102.00 mg/L High 0.0-3.0 [facility] Centromere B antibody assayO rdered By: Aaron Herrera on 02-06-2025 Centromere B Antibody <0.2 AI 0.0-0.9 [facility] Chromatin antibody assayOrde red By: Aaron Herrera on 02-06-2025 Antichromatin Antibodies <0.2 AI 0.0-0.9 [facility] DNA double strand Ab Qn (S)O rdered By: Aaron Herrera on 02-06-2025 Anti-Double Strand DNA Antibody <1 IU/mL 0-9 [facility] Comment on above: Negative <5 Equivoca l 5 - 9 Positive >9 Erythrocyte Sed Rateon 02-06 SED RATE 19 mm/hr Normal 0-30 [facility] Comment on above: Performed By: #### L 300.3900, L300.4310 #### [facility] [address] [place], [place], [address] Erythrocyte distribution wid th (RBC) [Ratio]Ordered By: Aaron Herrera on 02-06-2025 Erythrocyte distribution width (RBC) [Entitic vol] 51.4 fL High 35.1-43.9 [facility] Erythrocyte distribution wid th ratioOrdered By: Aaron Herrera on 02-06-2025 Erythrocyte distribution width (RBC) [Ratio] 15.2 % High 11.6-14.6 [facility] Erythrocyte distribution wid th standard deviationOrdered By: Aaron Herrera on 02-06-2025 Erythrocyte distribution width (RBC) [Ratio] 51.4 fl High 35.1-43.9 [facility] Erythrocyte sedimentation ra teOrdered By: Aaron Herrera on 02-06-2025 ESR (Bld) [Velocity] 19 mm/h 0-30 [facility] Hematocrit Auto (Bld) [Volum e fraction]Ordered By: Aaron Herrera on 02-06-2025 Hematocrit (Bld) [Volume fraction] 29.3 % Low 37-47 [facility] Hemoglobin measurementOrdere d By: Aaron Herrera on 02-06-2025 Hemoglobin (Bld) [Mass/Vol] 9.9 g/dL Low 12.0-15.0 [facility] Internal Medicine Office Vis iton 02-06-2025 Internal Medicine Office Visit [facility] [address] [place], [place] [address] OFFICE VISIT Date of Service: 02/06/25 MR#: [id number] Acct: [id number] Name: ZORA NIXON Rep #: [id number] : 1955 Provider: VANNESSA Ward Age/Sex: 70/F [place] [facility] [place] Status: Signed Intake Vital Signs 12/22/24 10:43 02/06/25 13:04 Height 5 ft 5 ft Weight: 129 lb 8 oz 125 lb BMI 25.2 24.4 BP 118/64 114/62 Blood Pressure Location Lt brachial Lt brachial Position Sitting Sitting Respiration 12 14 Pulse 67 74 Pulse Source Monitor Monitor Temp 97.5 F L 97.6 F L Temp Source Temporal Temporal Pulse Oximetry (%) 92 96 Oxygen Delivery Method room air room air Intake Visit Reasons: ACUTE - RT LEG SWELLING/BOTH LEGS RED [facility]inter Feeder Required: No Is patient in pain?: Yes (RLE) Pain scale (1-10): 5 Allergies No Known Allergies Allergy (Verified 02/06/25 12:52) Medications ???Medication ???Instructions ???Recorded ???Confirmed ???Type aspirin 81 mg chewable tablet 81 mg PO DAILY 11/23/17 02/06/25 H istory melatonin 10 mg capsule 10 mg PO HS PRN sleep 11/23/17 History calcium carbonate 600 mg PO BID 06/30/18 02/06/25 Hi story amlodipine 10 mg tablet 10 mg PO QDAY #90 tabs 05/11/24 Rx nitroglycerin 0.4 mg sublingual See Rx Instructions .Route 4 02/06/25 Rx tablet .COMPLEX #75 tabs rosuvastatin 20 mg tablet 20 mg PO DAILY #90 tabs 05/11/24 0 02/06/25 Rx sertraline 100 mg tablet 100 mg PO QDAY #90 tabs 05/11/24 0 02/06/25 Rx trazodone 100 mg tablet 100 mg PO QHS PRN insomnia #90 tab s 05/11/24 02/06/25 Rx handicap placard #1 ea 09/01/24 02/06/25 Rx cholecalciferol (vitamin D3) 50 50 mcg PO DAILY 12/08/24 02/06/25 History mcg (2,000 unit) capsule (Vitamin D3) lisinopril 5 mg tablet 5 mg PO DAILY 12/08/24 02/06/25 Hi story pantoprazole 40 mg tablet,delayed 40 mg PO BID 12/08/24 02/06/25 Hi story release sotalol 80 mg tablet (Betapace) 80 mg PO DAILY 12/08/24 02/06/25 H istory cephalexin 500 mg capsule 500 mg PO Q12H #14 caps 02/06/25 0 02/06/25 Rx prednisone 10 mg tablet 10 mg PO DIRECTED #30 tabs 01/1702/06/25 Rx Have you fallen in the past year?: No Nurse's Note: RLE redness and swelling, Skin is tight and swollen. Has been going on about a month. States pants touching leg hurts her like needles. It is getting worse since noticing it a month ago. Pt has been elevating legs which helps sometimes. States the LLE is starting to get red. Denies seeping, open wounds, or any injury known to cause it. It is itchy. No pitting edema noted. Pt flinched and pulled away upon examanation described sharp shooting pain and 9/10 pain level. [facility] Medical History Neutropenic fever Gastroenteritis Breast cancer metastasized to axillary lymph node Nontraumatic psoas hematoma Hyperbilirubinemia Severe anemia Non-ST elevation [place] (NSTEMI) Rhabdomyolysis Thrombocytopenia CAD (coronary artery disease) Chronic pain Atrial fibrillation ICD (implantable cardioverter-defibrill ator) in place Urinary urgency Metastasis to bone [...] participate in: none HPI HPI Chief Complaint: [facility] Details: ZORA NIXON, is a 70 F who presents to the office today for right lower extremity redness and swelling. She states that this started (more content not included)... Normal [facility] Shadia-1 antibody assayOrdered B y: Aaron Herrera on 02-06-2025 SHADIA-1 Antibody <0.2 AI 0.0-0.9 [facility] MCV (mean corpuscular volume ) determinationOrdered By: Aaron Herrera on 02-06-2025 MCV (RBC) [Entitic vol] 91.3 fL 81-99 [facility] Mean corpuscular hemoglobin (MCH) determinationOrdered By: Aaron Herrera on 02-06-2025 MCH (RBC) [Entitic mass] 30.8 pg 27.0-32.0 [facility] Mean corpuscular hemoglobin concentration (MCHC) determinationOrdered By: Aaron Herrera on 02-06-2025 MCHC (RBC) [Mass/Vol] 33.8 g/dL 32-36 [facility] Mean platelet volume determi nationOrdered By: Aaron Herrera on 02-06-2025 Platelet mean volume (Bld) [Entitic vol] 10.1 fL 6.2-12.0 [facility] Neutrophil cytoplasmic Ab.cl assic Qn (S)Ordered By: Aaron Herrera on 02-06-2025 Cytoplasmic ANCA (c-ANCA) Antibody <1:20 titer Neg:<1:20 [facility] Neutrophil cytoplasmic Ab.pe rinuclear IF (S) [Titer]Ordered By: Aaron Herrera on 02-06-2025 Perinuclear ANCA (p-ANCA) Antibody <1:20 titer Neg:<1:20 [facility] Comment on above: The presence of posi tive fluorescence exhibiting P-ANCA orC-ANCA patterns alone is not specific for the diagnosis ofWegener's Granulomatosis (WG) or microscopic polyangiitis.Decisions about treatment should not be based solely onANCA IFA results. The International ANCA Group Consensusrecommends follow up testing of positive sera with both DC-3 and MPO-ANCA enzyme immunoassays. As many as 5% serumsamples are positive only by EIA. Ref. AM J Clin Fzvxdh1128;111:507-513. Platelet countOrdered By: Migdalia Herrera on 02-06-2025 Platelets (Bld) [#/Vol] 91 10*3/uL Low 150-450 [facility] RBC Auto (Bld) [#/Vol]Ordere d By: Aaron Herrera on 02-06-2025 RBC (Bld) [#/Vol] 3.21 10*6/uL Low 4.2-5.4 [facility] SOFA COVER INSPECTOR abOrdered By: Aaron simpson on 02-06-2025 SOFA COVER INSPECTOR Antibody <0.2 AI 0.0-0.9 [facility] SCL-70 extractable nuclear A b Qn (S)Ordered By: Aaron Herrera on 02-06-2025 Scl-70 (Scleroderma) Antibody <0.2 AI 0.0-0.9 [facility] Comment on above: Previous reported re sult: TNP AIEdited by: JOY on 02/08/25:1408 AMENDED REPORT 02/08/25 1408 ANTISCLER previously reported as: Test not performed SS-A IgG antibody assayOrder ed By: Aaron Herrera on 02-06-2025 SS-A/Ro IgG Antibody 5.3 AI High 0.0-0.9 [facility] SS-B IgG antibody assayOrder ed By: Aaron Herrera on 02-06-2025 SS-B/La IgG Antibody 0.4 AI 0.0-0.9 [facility] Serum DNA double strand anti body assay (units/volume)Ordered By: Aaron Herrera on 02-06-2025 DNA double strand Ab Qn (S) [IU]/mL 0-9 [facility] Comment on above: Negative <5 Equivoca l 5 - 9 Positive >9 Serum Scl-70 antibody assay (units/volume)Ordered By: Aaron Herrera on 02-06-2025 SCL-70 extractable nuclear Ab Qn (S) <0.2 AI 0.0-0.9 [facility] Comment on above: Previous reported re sult: TNP AIEdited by: JOY on 02/08/25:1408 AMENDED REPORT 02/08/258 ANTISCLER previously reported as: Test not performed Serum classic neutrophil cyt oplasmic antibody assay (units/volume)Ordered By: Aaron Herrera on 02-06-2025 Neutrophil cytoplasmic Ab.classic Qn (S) <1:20 titer Neg:<1:20 [facility] Serum or plasma C reactive p rotein measurement (mass/volume)Ordered By: Aaron Herrera on 02-06-2025 CRP [Mass/Vol] 102.00 mg/L High 0.0-3.0 [facility] Serum perinuclear neutrophil cytoplasmic antibody titer by immunofluorescenceOrdered By: Aaron Herrera on 02-06-2025 Neutrophil cytoplasmic Ab.perinuclear IF (S) [Titer] <1:20 titer Neg:<1:20 [facility] Comment on above: The presence of posi tive fluorescence exhibiting P-ANCA orC-ANCA patterns alone is not specific for the diagnosis ofWegener's Granulomatosis (WG) or microscopic polyangiitis.Decisions about treatment should not be based solely onANCA IFA results. The International ANCA Group Consensusrecommends follow up testing of positive sera with both DC-3 and MPO-ANCA enzyme immunoassays. As many as 5% serumsamples are positive only by EIA. Ref. AM J Clin Ahuvwd3260;111:507-513. Christian antibody assayOrdered By: Aaron Herrera on 02-06-2025 SM Antibody <0.2 AI 0.0-0.9 [facility] White blood cell (WBC) count Ordered By: Aaron Herrera on 02-06-2025 WBC (Bld) [#/Vol] 3.3 10*3/uL Low 4.4-11.0 [facility] CBC W Auto Differential pane l (Bld)on 01-29-2025 Basophils (Bld) [#/Vol] 0.01 x10*3/uL Normal 0.00-0.10 [facility] Comment on above: Performed By: #### 5 7021-8 ####RUEL Yi ([id number])[facility] ([facility])[address] [place] [address] 94906 Basophils/100 WBC (Bld) 0.3 % Normal 0.0-2.0 [facility] Comment on above: Performed By: #### 7021-8 ####RUEL Yi ([id number])[facility] ([facility])[address] [place] [address] 22864 Eosinophils (Bld) [#/Vol] 0.15 x10*3/uL Normal 0.00-0. 40 [facility] Comment on above: Performed By: #### 5 7021-8 ####RUEL Yi ([id number])[facility] ([facility])[address] [place] [address] 70423 Eosinophils/100 WBC (Bld) 4.4 % Normal 0.0-6.0 [facility] Comment on above: Performed By: #### 5 7021-8 ####RUEL Yi ([id number])[facility] ([facility])[address] [place] [address] 20451 Erythrocyte distribution width (RBC) [Ratio] 16.7 % High 11.5-14.5 [facility] Comment on above: Performed By: #### 5 7021-8 ####RUEL Yi ([id number])[facility] ([facility])[address] [place] [address] 47050 Hematocrit (Bld) [Volume fraction] 33.2 % Low 36.0-46.0 [facility] Comment on above: Performed By: #### 5 7021-8 ####RUEL Yi ([id number])[facility] ([facility])[address] [place] [address] 10885 Hemoglobin (Bld) [Mass/Vol] 10.9 g/dL Low 12.0-16.0 [facility] Comment on above: Performed By: #### 7021-8 ####RUEL Yi ([id number])[facility] ([facility])[address] [place] [address] 15025 Immature granulocytes (Bld) [#/Vol] 0.01 x10*3/uL Normal 0.00-0.50 [facility] Comment on above: Performed By: #### 5 7021-8 ####RULE Yi ([id number])[facility] ([facility])[address] [place] [address] 58780 Immature granulocytes/100 WBC (Bld) 0.3 % Normal 0.0-0.9 [facility] Comment on above: Result Comment: Krystle ture Granulocyte Count (IG) includes promyelocytes, myelocytes and metamyelocytes but does not include bands. Percent differential counts (%) should be interpreted in the context of the absolute cell counts (cells/UL). Performed By: #### 5 7021-8 ####RUEL Yi ([id number])[facility] ([facility])[address] [place] [address] 13249 Lymphocytes (Bld) [#/Vol] 1.11 x10*3/uL Normal 0.80-3. 00 [facility] Comment on above: Performed By: #### 5 7021-8 ####RUEL Yi ([id number])[facility] ([facility])[address] [place] [address] 61410 Lymphocytes/100 WBC (Bld) 32.8 % Normal 13.0-44.0 [facility] Comment on above: Performed By: #### 5 7021-8 ####RUEL Yi ([id number])[facility] ([facility])[address] [place] [address] 83092 MCH (RBC) [Entitic mass] 30.2 pg Normal 26.0-34.0 [facility] Comment on above: Performed By: #### 5 7021-8 ####RUEL Yi ([id number])[facility] ([facility])[address] [place] [address] 16154 MCHC (RBC) [Mass/Vol] 32.8 g/dL Normal 32.0-36.0 [facility] Comment on above: Performed By: #### 5 7021-8 ####RUEL Yi ([id number])[facility] ([facility])[address] [place] [address] 32881 MCV (RBC) [Entitic vol] 92 fL Normal 80-100 [facility] Comment on above: Performed By: #### 5 7021-8 ####RUEL Yi ([id number])[facility] ([facility])[address] [place] [address] 67847 Monocytes (Bld) [#/Vol] 0.28 x10*3/uL Normal 0.05-0.80 [facility] Comment on above: Performed By: #### 5 7021-8 ####RUEL Yi ([id number])[facility] ([facility])[address] [place] [address] 74122 Monocytes/100 WBC (Bld) 8.3 % Normal 2.0-10.0 [facility] Comment on above: Performed By: #### 5 7021-8 ####RUEL Yi ([id number])[facility] ([facility])[address] [place] [address] 35145 Neutrophils (Bld) [#/Vol] 1.82 x10*3/uL Normal 1.60-5. 50 [facility] Comment on above: Result Comment: Perc ent differential counts (%) should be interpreted in the context of the absolute cell counts (cells/uL). Performed By: #### 5 7021-8 ####RUEL Yi ([id number])[facility] ([facility])[address] [place] [address] 73199 Neutrophils/100 WBC (Bld) 53.9 % Normal 40.0-80.0 [facility] Comment on above: Performed By: #### 5 7021-8 ####RUEL Yi ([id number])[facility] ([facility])[address] [place] [address] 79931 Nucleated RBC/100 WBC (Bld) [Ratio] Normal [facility] Comment on above: Result Comment: Not Measured Performed By: #### 5 7021-8 ####RUEL Yi ([id number])[facility] ([facility])[address] [place] [address] 19807 Platelets (Bld) [#/Vol] 178 x10*3/uL Normal 150-450 [facility] Comment on above: Performed By: #### 5 7021-8 ####RUEL Yi ([id number])[facility] ([facility])[address] [place] [address] 29173 RBC (Bld) [#/Vol] 3.61 x10*6/uL Low 4.00-5.20 [facility] Comment on above: Performed By: #### 5 7021-8 ####RUEL Yi ([id number])[facility] ([facility])[address] [place] [address] 52207 WBC (Bld) [#/Vol] 3.4 x10*3/uL Low 4.4-11.3 [facility] Comment on above: Performed By: #### 5 7021-8 ####RUEL Yi ([id number])[facility] ([facility])[address] [place] [address] 51809 Comprehensive metabolic 2000 panelon 01-29-2025 Albumin BCP dye [Mass/Vol] 4.3 g/dL Normal 3.4-5.0 [facility] Comment on above: Performed By: #### 2 4323-8 ####DIANE Nick ([id number])[facility] ([facility])[address] [place] [address] ALP [Catalytic activity/Vol] 99 U/L Normal 33-136 [facility] Comment on above: Performed By: #### 2 4323-8 ####DIANE Nick ([id number])[facility] ([facility])[address] [place] [address] ALT With P-5'-P [Catalytic activity/Vol] 19 U/L Normal 7-45 [facility] Comment on above: Result Comment: Maria E ents treated with Sulfasalazine may generate falsely decreased results for ALT. Performed By: #### 2 4323-8 ####DIANE Nick ([id number])[facility] ([facility])[address] [place] [address] Anion gap [Moles/Vol] 13 mmol/L Normal 10-20 [facility] Comment on above: Performed By: #### 2 4323-8 ####DIANE Nick ([id number])[facility] ([facility])[address] [place] [address] AST With P-5'-P [Catalytic activity/Vol] 24 U/L Normal 9-39 [facility] Comment on above: Performed By: #### 2 4323-8 ####DIANE Nick ([id number])[facility] ([facility])[address] [place] [address] Bilirubin [Mass/Vol] 0.4 mg/dL Normal 0.0-1.2 [facility] Comment on above: Performed By: #### 2 4323-8 ####DIANE Nick ([id number])[facility] ([facility])[address] [place] [address] Calcium [Mass/Vol] 8.8 mg/dL Normal 8.6-10.6 [facility] Comment on above: Performed By: #### 2 4323-8 ####DIANE Nick ([id number])[facility] ([facility])[address] [place] [address] Chloride [Moles/Vol] 101 mmol/L Normal 98-107 [facility] Comment on above: Performed By: #### 2 4323-8 ####DIANE Nick ([id number])[facility] ([facility])[address] [place] [address] CO2 [Moles/Vol] 31 mmol/L Normal 21-32 [facility] Comment on above: Performed By: #### 2 4323-8 ####DIANE Nick ([id number])[facility] ([facility])[address] [place] [address] Creatinine [Mass/Vol] 0.75 mg/dL Normal 0.50-1.05 [facility] Comment on above: Performed By: #### 2 4323-8 ####DIANE MOCTEZUMA L ([id number])[facility] ([facility])[address] [place] [address] Glomerular filtration rate/1.73 sq M.predicted 85 mL/min/1.73m*2 Normal >60 [facility] Comment on above: Result Comment: Calc ulations of estimated GFR are performed using the 2020 CKD-EPI Study Refit equation without the race variable for the IDMS-Traceable creatinine methods.https://jasn.asnjournals.org/content/ 2/ASN.5301198506 Performed By: #### 2 4323-8 ####DIANE MOCTEZUMA L ([id number])[facility] ([facility])[address] [place] [address] Glucose [Mass/Vol] 93 mg/dL Normal 74-99 [facility] Comment on above: Performed By: #### 2 4323-8 ####DIANE MOCTEZUMA L ([id number])[facility] ([facility])[address] [place] [address] Potassium [Moles/Vol] 3.7 mmol/L Normal 3.5-5.3 [facility] Comment on above: Performed By: #### 2 4323-8 ####DIANE MOCTEZUMA L ([id number])[facility] ([facility])[address] [place] [address] Protein [Mass/Vol] 6.6 g/dL Normal 6.4-8.2 [facility] Comment on above: Performed By: #### 2 4323-8 ####DIANE MOCTEZUMA L ([id number])[facility] ([facility])[address] [place] [address] Sodium [Moles/Vol] 141 mmol/L Normal 136-145 [facility] Comment on above: Performed By: #### 2 4323-8 ####DIANE Nick ([id number])[facility] ([facility])[address] [place] [address] Urea nitrogen [Mass/Vol] 12 mg/dL Normal 6-23 [facility] Comment on above: Performed By: #### 2 4323-8 ####DIANE Nick ([id number])[facility] ([facility])[address] [place] [address] CBC W Auto Differential pane l (Bld)on 01-08-2025 Basophils (Bld) [#/Vol] 0.02 x10*3/uL Normal 0.00-0.10 [facility] Comment on above: Performed By: #### 5 7021-8 ####RUEL Yi ([id number])[facility] ([facility])[address] [place] [address] 05211 Basophils/100 WBC (Bld) 0.4 % Normal 0.0-2.0 [facility] Comment on above: Performed By: #### 5 7021-8 ####RUEL Yi ([id number])[facility] ([facility])[address] [place] [address] 09285 Eosinophils (Bld) [#/Vol] 0.14 x10*3/uL Normal 0.00-0. 70 [facility] Comment on above: Performed By: #### 5 7021-8 ####RUEL Yi ([id number])[facility] ([facility])[address] [place] [address] 37606 Eosinophils/100 WBC (Bld) 2.9 % Normal 0.0-6.0 [facility] Comment on above: Performed By: #### 5 7021-8 ####RUEL Yi ([id number])[facility] ([facility])[address] [place] [address] 57257 Erythrocyte distribution width (RBC) [Ratio] 15.6 % High 11.5-14.5 [facility] Comment on above: Performed By: #### 5 7021-8 ####RUEL Yi ([id number])[facility] ([facility])[address] [place] [address] Hematocrit (Bld) [Volume fraction] 31.8 % Low 36.0-46.0 [facility] Comment on above: Performed By: #### 5 7021-8 ####RUEL Yi ([id number])[facility] ([facility])[address] [place] [address] Hemoglobin (Bld) [Mass/Vol] 10.4 g/dL Low 12.0-16.0 [facility] Comment on above: Performed By: #### 5 7021-8 ####RUEL Yi ([id number])[facility] ([facility])[address] [place] [address] Immature granulocytes (Bld) [#/Vol] 0.01 x10*3/uL Normal 0.00-0.70 [facility] Comment on above: Performed By: #### 5 7021-8 ####RUEL Yi ([id number])[facility] ([facility])[address] [place] [address] Immature granulocytes/100 WBC (Bld) 0.2 % Normal 0.0-0.9 [facility] Comment on above: Result Comment: Krystle ture Granulocyte Count (IG) includes promyelocytes, myelocytes and metamyelocytes but does not include bands. Percent differential counts (%) should be interpreted in the context of the absolute cell counts (cells/UL). Performed By: #### 5 7021-8 ####RUEL Yi ([id number])[facility] ([facility])[address] [place] [address] Lymphocytes (Bld) [#/Vol] 1.49 x10*3/uL Normal 1.20-4. 80 [facility] Comment on above: Performed By: #### 5 7021-8 ####RUEL Yi ([id number])[facility] ([facility])[address] [place] [address] Lymphocytes/100 WBC (Bld) 30.7 % Normal 13.0-44.0 [facility] Comment on above: Performed By: #### 5 7021-8 ####RUEL Yi ([id number])[facility] ([facility])[address] [place] [address] 37772 MCH (RBC) [Entitic mass] 29.9 pg Normal 26.0-34.0 [facility] Comment on above: Performed By: #### 5 7021-8 ####RUEL Yi ([id number])[facility] ([facility])[address] [place] [address] 97599 MCHC (RBC) [Mass/Vol] 32.7 g/dL Normal 32.0-36.0 [facility] Comment on above: Performed By: #### 5 7021-8 ####RUEL Yi ([id number])[facility] ([facility])[address] [place] [address] 56941 MCV (RBC) [Entitic vol] 91 fL Normal 80-100 [facility] Comment on above: Performed By: #### 5 7021-8 ####RUEL Yi ([id number])[facility] ([facility])[address] [place] [address] 20832 Monocytes (Bld) [#/Vol] 0.35 x10*3/uL Normal 0.10-1.00 [facility] Comment on above: Performed By: #### 5 7021-8 ####RUEL Yi ([id number])[facility] ([facility])[address] [place] [address] 44141 Monocytes/100 WBC (Bld) 7.2 % Normal 2.0-10.0 [facility] Comment on above: Performed By: #### 5 7021-8 ####RUEL Yi ([id number])[facility] ([facility])[address] [place] [address] 41749 Neutrophils (Bld) [#/Vol] 2.85 x10*3/uL Normal 1.20-7. 70 [facility] Comment on above: Result Comment: Perc ent differential counts (%) should be interpreted in the context of the absolute cell counts (cells/uL). Performed By: #### 5 7021-8 ####RUEL Yi ([id number])[facility] ([facility])[address] [place] [address] 60645 Neutrophils/100 WBC (Bld) 58.6 % Normal 40.0-80.0 [facility] Comment on above: Performed By: #### 5 7021-8 ####RUEL Yi ([id number])[facility] ([facility])[address] [place] [address] 45209 Nucleated RBC/100 WBC (Bld) [Ratio] Normal [facility] Comment on above: Result Comment: Not Measured Performed By: #### 5 7021-8 ####RUEL Yi ([id number])[facility] ([facility])[address] [place] [address] 74743 Platelets (Bld) [#/Vol] 157 x10*3/uL Normal 150-450 [facility] Comment on above: Performed By: #### 5 7021-8 ####RUEL Yi ([id number])[facility] ([facility])[address] [place] [address] 04071 RBC (Bld) [#/Vol] 3.48 x10*6/uL Low 4.00-5.20 [facility] Comment on above: Performed By: #### 5 7021-8 ####RUEL Yi ([id number])[facility] ([facility])[address] [place] [address] 40605 WBC (Bld) [#/Vol] 4.9 x10*3/uL Normal 4.4-11.3 [facility] Comment on above: Performed By: #### 5 7021-8 ####RUEL Yi ([id number])[facility] ([facility])[address] [place] [address] 61809 Comprehensive metabolic 2000 panelon 01-08-2025 Albumin BCP dye [Mass/Vol] 4.2 g/dL Normal 3.4-5.0 [facility] Comment on above: Performed By: #### 2 4323-8 ####DIANE Nick ([id number])[facility] ([facility])[address] [place] [address] ALP [Catalytic activity/Vol] 115 U/L Normal 33-136 [facility] Comment on above: Performed By: #### 2 4323-8 ####DIANE Nick ([id number])[facility] ([facility])[address] [place] [address] ALT With P-5'-P [Catalytic activity/Vol] 14 U/L Normal 7-45 [facility] Comment on above: Result Comment: Maria E ents treated with Sulfasalazine may generate falsely decreased results for ALT. Performed By: #### 2 4323-8 ####DIANE Nick ([id number])[facility] ([facility])[address] [place] [address] Anion gap [Moles/Vol] 16 mmol/L Normal 10-20 [facility] Comment on above: Performed By: #### 2 4323-8 ####DIANE Nick ([id number])[facility] ([facility])[address] [place] [address] AST With P-5'-P [Catalytic activity/Vol] 17 U/L Normal 9-39 [facility] Comment on above: Performed By: #### 2 4323-8 ####DIANE Nick ([id number])[facility] ([facility])[address] [place] [address] Bilirubin [Mass/Vol] 0.4 mg/dL Normal 0.0-1.2 [facility] Comment on above: Performed By: #### 2 4323-8 ####DIANE Nick ([id number])[facility] ([facility])[address] [place] [address] Calcium [Mass/Vol] 8.5 mg/dL Low 8.6-10.6 [facility] Comment on above: Performed By: #### 2 4323-8 ####DIANE Nick ([id number])[facility] ([facility])[address] [place] [address] Chloride [Moles/Vol] 100 mmol/L Normal 98-107 [facility] Comment on above: Performed By: #### 2 4323-8 ####DIANE Nick ([id number])[facility] ([facility])[address] [place] [address] CO2 [Moles/Vol] 27 mmol/L Normal 21-32 [facility] Comment on above: Performed By: #### 2 4323-8 ####DIANE Nick ([id number])[facility] ([facility])[address] [place] [address] Creatinine [Mass/Vol] 0.82 mg/dL Normal 0.50-1.05 [facility] Comment on above: Performed By: #### 2 4323-8 ####DIANE Nick ([id number])[facility] ([facility])[address] [place] [address] Glomerular filtration rate/1.73 sq M.predicted 77 mL/min/1.73m*2 Normal >60 [facility] Comment on above: Result Comment: Calc ulations of estimated GFR are performed using the 2020 CKD-EPI Study Refit equation without the race variable for the IDMS-Traceable creatinine methods.https://jasn.asnjournals.org/content/2 2/ASN.5418634697 Performed By: #### 2 4323-8 ####DIANE Nick ([id number])[facility] ([facility])[address] [place] [address] Glucose [Mass/Vol] 83 mg/dL Normal 74-99 [facility] Comment on above: Performed By: #### 2 4323-8 ####DIANE Nick ([id number])[facility] ([facility])[address] [place] [address] Potassium [Moles/Vol] 3.9 mmol/L Normal 3.5-5.3 [facility] Comment on above: Performed By: #### 2 4323-8 ####DIANE Nick ([id number])[facility] ([facility])[address] [place] [address] Protein [Mass/Vol] 6.7 g/dL Normal 6.4-8.2 [facility] Comment on above: Performed By: #### 2 4323-8 ####DIANE Nick ([id number])[facility] ([facility])[address] [place] [address] Sodium [Moles/Vol] 139 mmol/L Normal 136-145 [facility] Comment on above: Performed By: #### 2 4323-8 ####DIANE Nick ([id number])[facility] ([facility])[address] [place] [address] Urea nitrogen [Mass/Vol] 10 mg/dL Normal 6-23 [facility] Comment on above: Performed By: #### 2 4323-8 ####DIANE Nick ([id number])[facility] ([facility])[address] [place] [address] Blood type and Indirect anti body screen panel (Bld)on 01-01-2025 ABO group Nom (Bld) B Normal [facility] Comment on above: Order Comment: Pleas e shipping helper to [facility]. Surgery scheduled for 08/01 Performed By: #### 3 4532-2 ####DIANE Nick ([id number])[facility] ([id number] [place] [address] Blood group antibody screen Ql Negative [facility] Comment on above: Order Comment: Pleas e shipping helper to [facility]. Surgery scheduled for 08/01 Performed By: #### 3 4532-2 ####DIANE Nick ([id number])[facility] ([facility] [place] [address] D Ag Ql (Bld) Positive Normal [facility] Comment on above: Order Comment: Dorcas yi shipping helper to [facility]. Surgery scheduled for 08/01 Performed By: #### 3 4532-2 ####DIANE Nick ([id number])[facility] ([facility])[address] [place] [address] CBC W Auto Differential pane l (Bld)on 01-01-2025 Basophils (Bld) [#/Vol] 0.03 x10*3/uL Normal 0.00-0.10 [facility] Comment on above: Performed By: #### 5 7021-8 ####RUEL Yi ([id number])[facility] ([facility])[address] [place] [address] Basophils/100 WBC (Bld) 0.5 % Normal 0.0-2.0 [facility] Comment on above: Performed By: #### 5 7021-8 ####RUEL Yi ([id number])[facility] ([facility])[address] [place] [address] Eosinophils (Bld) [#/Vol] 0.10 x10*3/uL Normal 0.00-0. 70 [facility] Comment on above: Performed By: #### 5 7021-8 ####RUEL Yi ([id number])[facility] ([facility])[address] [place] [address] Eosinophils/100 WBC (Bld) 1.8 % Normal 0.0-6.0 [facility] Comment on above: Performed By: #### 5 7021-8 ####RUEL Yi ([id number])[facility] ([facility])[address] [place] [address] Erythrocyte distribution width (RBC) [Ratio] 15.5 % High 11.5-14.5 [facility] Comment on above: Performed By: #### 5 7021-8 ####RUEL Yi ([id number])[facility] ([facility])[address] [place] [address] Hematocrit (Bld) [Volume fraction] 37.8 % Normal 36.0-46.0 [facility] Comment on above: Performed By: #### 5 7021-8 ####RUEL Yi ([id number])[facility] ([facility])[address] [place] [address] Hemoglobin (Bld) [Mass/Vol] 12.2 g/dL Normal 12.0-16.0 [facility] Comment on above: Performed By: #### 5 7021-8 ####RUEL Yi ([id number])[facility] ([facility])[address] [place] [address] Immature granulocytes (Bld) [#/Vol] 0.02 x10*3/uL Normal 0.00-0.70 [facility] Comment on above: Performed By: #### 5 7021-8 ####RUEL Yi ([id number])[facility] ([facility])[address] [place] [address] Immature granulocytes/100 WBC (Bld) 0.4 % Normal 0.0-0.9 [facility] Comment on above: Result Comment: Krystle ture Granulocyte Count (IG) includes promyelocytes, myelocytes and metamyelocytes but does not include bands. Percent differential counts (%) should be interpreted in the context of the absolute cell counts (cells/UL). Performed By: #### 5 7021-8 ####RUEL Yi ([id number])[facility] ([facility])[address] [place] [address]143 Lymphocytes (Bld) [#/Vol] 1.26 x10*3/uL Normal 1.20-4. 80 [facility] Comment on above: Performed By: #### 5 7021-8 ####RUEL Yi ([id number])[facility] ([facility])[address] [place] [address]21 Lymphocytes/100 WBC (Bld) 22.4 % Normal 13.0-44.0 [facility] Comment on above: Performed By: #### 5 7021-8 ####RUEL Yi ([id number])[facility] ([facility])[address] [place] [address] 05315 MCH (RBC) [Entitic mass] 29.3 pg Normal 26.0-34.0 [facility] Comment on above: Performed By: #### 5 7021-8 ####RUEL Yi ([id number])[facility] ([facility])[address] [place] [address] 94158 MCHC (RBC) [Mass/Vol] 32.3 g/dL Normal 32.0-36.0 [facility] Comment on above: Performed By: #### 5 7021-8 ####RUEL Yi ([id number])[facility] ([facility])[address] [place] [address] 13589 MCV (RBC) [Entitic vol] 91 fL Normal 80-100 [facility] Comment on above: Performed By: #### 5 7021-8 ####RUEL Yi ([id number])[facility] ([facility])[address] [place] [address] 22758 Monocytes (Bld) [#/Vol] 0.53 x10*3/uL Normal 0.10-1.00 [facility] Comment on above: Performed By: #### 5 7021-8 ####RUEL Yi ([id number])[facility] ([facility])[address] [place] [address] 82706 Monocytes/100 WBC (Bld) 9.4 % Normal 2.0-10.0 [facility] Comment on above: Performed By: #### 5 7021-8 ####RUEL Yi ([id number])[facility] ([facility])[address] [place] [address] 70254 Neutrophils (Bld) [#/Vol] 3.69 x10*3/uL Normal 1.20-7. 70 [facility] Comment on above: Result Comment: Perc ent differential counts (%) should be interpreted in the context of the absolute cell counts (cells/uL). Performed By: #### 5 7021-8 ####RUEL Yi ([id number])[facility] ([facility])[address] [place] [address] Neutrophils/100 WBC (Bld) 65.5 % Normal 40.0-80.0 [facility] Comment on above: Performed By: #### 5 7021-8 ####RUEL Yi ([id number])[facility] ([facility])[address] [place] [address] Nucleated RBC/100 WBC (Bld) [Ratio] Normal [facility] Comment on above: Result Comment: Not Measured Performed By: #### 5 7021-8 ####RUEL Yi ([id number])[facility] ([facility])[address] [place] [address] 89317 Platelets (Bld) [#/Vol] 206 x10*3/uL Normal 150-450 [facility] Comment on above: Performed By: #### 5 7021-8 ####RUEL Yi ([id number])[facility] ([facility])[address] [place] [address] 01477 RBC (Bld) [#/Vol] 4.17 x10*6/uL Normal 4.00-5.20 [facility] Comment on above: Performed By: #### 5 7021-8 ####RUEL Yi ([id number])[facility] ([facility])[address] [place] [address] 22395 WBC (Bld) [#/Vol] 5.6 x10*3/uL Normal 4.4-11.3 [facility] Comment on above: Performed By: #### 5 7021-8 ####RUEL Yi ([id number])[facility] ([facility])[address] [place] [address] CBC W/Diff, Automatedon 03- PATH REV Reviewed Normal [facility] Comment on above: Result Comment: THE PERIPHERAL SMEAR SHOWS A NORMOCHROMIC NORMOCYTIC ANEMIA. THERE IS A MARKEDLY LEUKOPENIA DUE TO DECREASED NEUTROPHILS. PLATELETS ARE SEVERELY DECREASED. Ruel Alaniz MD 01/01/2025 AMENDED REPORT 01/01/25 1034 PATH REV previously reported as: February Performed By: #### L 300.3900, L300.4310 #### [facility] [address] [place], [address] Cancer Ag 27-29on 01-01-2025 Cancer Ag 27-29 Qn 37.3 [arb'U]/mL Normal 0.0-38.6 [facility] Comment on above: Order Comment: CA 27 .29 testing is performed by chemiluminescent immunoassay using the Entegrion. Values obtained with different analytic methods cannot be used interchangeably.Serum CA 27.29 measurement is intended for use as an aid in monitoring patients previously treated for Stage II or Stage III breast cancer. This assay is not intended for creening or diagnosis of cancer in the general population. The results must not be used as the sole means for clinical diagnosis or patient management decisions. Performed By: #### 1 7842-6 ####DIANE Nick ([id number])[facility] ([facility])[address] [place] [address] Comprehensive metabolic 2000 panelon 01-01-2025 Albumin BCP dye [Mass/Vol] 4.7 g/dL Normal 3.4-5.0 [facility] Comment on above: Performed By: #### 2 4323-8 ####DIANE Nick ([id number])[facility] ([facility])[address] [place] [address] ALP [Catalytic activity/Vol] 158 U/L High 33-136 [facility] Comment on above: Performed By: #### 2 4323-8 ####DIANE Nick ([id number])[facility] ([facility])[address] [place] [address] ALT With P-5'-P [Catalytic activity/Vol] 19 U/L Normal 7-45 [facility] Comment on above: Result Comment: Maria E ents treated with Sulfasalazine may generate falsely decreased results for ALT. Performed By: #### 2 4323-8 ####DIANE Nick ([id number])[facility] ([facility])[address] [place] [address] Anion gap [Moles/Vol] 15 mmol/L Normal 10-20 [facility] Comment on above: Performed By: #### 2 4323-8 ####DIANE Nick ([id number])[facility] ([facility])[address] [place] [address] AST With P-5'-P [Catalytic activity/Vol] 24 U/L Normal 9-39 [facility] Comment on above: Performed By: #### 2 4323-8 ####DIANE Nick ([id number])[facility] ([facility])[address] [place] [address] Bilirubin [Mass/Vol] 0.5 mg/dL Normal 0.0-1.2 [facility] Comment on above: Performed By: #### 2 4323-8 ####DIANE Nick ([id number])[facility] ([facility])[address] [place] [address] Calcium [Mass/Vol] 9.4 mg/dL Normal 8.6-10.6 [facility] Comment on above: Performed By: #### 2 4323-8 ####DIANE Nick ([id number])[facility] ([facility])[address] [place] [address] Chloride [Moles/Vol] 95 mmol/L Low 98-107 [facility] Comment on above: Performed By: #### 2 4323-8 ####DIANE Nick ([id number])[facility] ([facility])[address] [place] [address] CO2 [Moles/Vol] 30 mmol/L Normal 21-32 [facility] Comment on above: Performed By: #### 2 4323-8 ####DIANE Nick ([id number])[facility] ([facility])[address] [place] [address] Creatinine [Mass/Vol] 0.85 mg/dL Normal 0.50-1.05 [facility] Comment on above: Performed By: #### 2 4323-8 ####DIANE Nick ([id number])[facility] ([facility])[address] [place] [address] Glomerular filtration rate/1.73 sq M.predicted 74 mL/min/1.73m*2 Normal >60 [facility] Comment on above: Result Comment: Calc ulations of estimated GFR are performed using the 2020 CKD-EPI Study Refit equation without the race variable for the IDMS-Traceable creatinine methods.https://jasn.asnjournals.org/content/ 2/ASN.8160229452 Performed By: #### 2 4323-8 ####DIANE Nick ([id number])[facility] ([facility])[address] [place] [address] Glucose [Mass/Vol] 102 mg/dL High 74-99 [facility] Comment on above: Performed By: #### 2 4323-8 ####DIANE Nick ([id number])[facility] ([facility])[address] [place] [address] Potassium [Moles/Vol] 4.2 mmol/L Normal 3.5-5.3 [facility] Comment on above: Performed By: #### 2 4323-8 ####DIANE MOCTEZUMA L ([id number])[facility] ([facility])[address] [place] [address] Protein [Mass/Vol] 7.5 g/dL Normal 6.4-8.2 [facility] Comment on above: Performed By: #### 2 4323-8 ####DIANE Nick ([id number])[facility] ([facility])[address] [place] [address] Sodium [Moles/Vol] 136 mmol/L Normal 136-145 [facility] Comment on above: Performed By: #### 2 4323-8 ####DIANE Nick ([id number])[facility] ([facility])[address] [place] [address] Urea nitrogen [Mass/Vol] 8 mg/dL Normal 6-23 [facility] Comment on above: Performed By: #### 2 4323-8 ####DIANE Nick ([id number])[facility] ([facility])[address] [place] [address] Absolute lymphocyte countOrd ered By: Aaron Herrera on 12-22-2024 Lymphocytes Auto (Unsp spec) [#/Vol] 1.29 10*3/uL 0.83-4.51 [facility] Absolute neutrophil countOrd ered By: Aaron Herrera on 12-22-2024 Neutrophils (Bld) [#/Vol] 1.8 10*3/uL Low 2.0-7.7 [facility] Anion gap in Serum or Plasma Ordered By: Aaron Herrera on 12-22-2024 Anion gap [Moles/Vol] 12 mmol/L 5-15 [facility] Automated lymphocyte count a s percentage of total leukocytesOrdered By: Aaron Herrera on 12-22-2024 Lymphocytes/100 WBC Auto (Unsp spec) 33.7 % 19-41 [facility] BUN/creatinine ratioOrdered By: Aaron Herrera on 12-22-2024 Urea nitrogen/Creatinine [Mass ratio] 10.7 mg/mg 10-20 [facility] Basophil percentageOrdered B y: Aaron Herrera on 12-22-2024 Basophils/100 WBC (Bld) 0.3 % 0-1 [facility] Bilirubin, totalOrdered By: Aaron Herrera on 12-22-2024 Bilirubin [Mass/Vol] 0.41 mg/dL 0.00-1.30 [facility] CBC W/Diff, Automatedon Absolute Lymph 1.29 X10 3/uL Normal 0.83-4.51 [facility] Comment on above: Performed By: #### L 300.3900, L300.4310 #### [facility] [address] [place], [address] Absolute Neut 1.8 X10 3/uL Low 2.0-7.7 [facility] Comment on above: Performed By: #### L 300.3900, L300.4310 #### [facility] [address] [place], [address] Basophils/100 WBC (Bld) 0.3 % Normal 0-1 [facility] Comment on above: Performed By: #### L 300.3900, L300.4310 #### [facility] [address] [place], [address] Eosinophils/100 WBC (Bld) 2.1 % Normal 0-5 [facility] Comment on above: Performed By: #### L 300.3900, L300.4310 #### [facility] [address] [place], [address] Erythrocyte distribution width (RBC) [Ratio] 14.5 % Normal 11.6-14.6 [facility] Comment on above: Performed By: #### L 300.3900, L300.4310 #### [facility] [address] [place], [address] Hematocrit (Bld) [Volume fraction] 33.0 % Low 37-47 [facility] Comment on above: Performed By: #### L 300.3900, L300.4310 #### [facility] [address] [place], [address] Hemoglobin (Bld) [Mass/Vol] 10.6 g/dL Low 12.0-15.0 [facility] Comment on above: Performed By: #### L 300.3900, L300.4310 #### [facility] [address] [place], [address] IG% 0.800 Normal 0.0-0.9 [facility] Comment on above: Result Comment: IG% - Immature Granulocytes (promyelocytes, myelocytes and metamyelocytes) > 1% indicates that a LEFT SHIFT is Present. Performed By: #### L 300.3900, L300.4310 #### [facility] [address] [place], [address] Lymphocytes/100 WBC (Bld) 33.7 % Normal 19-41 [facility] Comment on above: Performed By: #### L 300.3900, L300.4310 #### [facility] [address] [place], [address] MCH (RBC) [Entitic mass] 29.0 pg Normal 27.0-32.0 [facility] Comment on above: Performed By: #### L 300.3900, L300.4310 #### [facility] [address] [place], [address] MCHC (RBC) [Mass/Vol] 32.1 g/dL Normal 32-36 [facility] Comment on above: Performed By: #### L 300.3900, L300.4310 #### [facility] [address] [place], [address] MCV (RBC) [Entitic vol] 90.4 fL Normal 81-99 [facility] Comment on above: Performed By: #### L 300.3900, L300.4310 #### [facility] [address] [place], [address] Monocytes/100 WBC (Bld) 16.4 % High 0-10 [facility] Comment on above: Performed By: #### L 300.3900, L300.4310 #### [facility] [address] [place], [address] Neutrophils/100 WBC (Bld) 46.7 % Low 47-70 [facility] Comment on above: Performed By: #### L 300.3900, L300.4310 #### [facility] [address] [place], [address] Nucleated RBC (Bld) [#/Vol] 0 10*3/uL Normal 0-5 [facility] Comment on above: Performed By: #### L 300.3900, L300.4310 #### [facility] [address] [place], [address] Platelet mean volume (Bld) [Entitic vol] 10.1 fL Normal 6.2-12.0 [facility] Comment on above: Performed By: #### L 300.3900, L300.4310 #### [facility] [address] [place], [address] Platelets (Bld) [#/Vol] 266 10*3/uL Normal 150-450 [facility] Comment on above: Performed By: #### L 300.3900, L300.4310 #### [facility] [address] [place], [address] RBC (Bld) [#/Vol] 3.65 10*6/uL Low 4.2-5.4 [facility] Comment on above: Performed By: #### L 300.3900, L300.4310 #### [facility] [address] [place], [address] RDW SD 45.1 fl High 35.1-43.9 [facility] Comment on above: Performed By: #### L 300.3900, L300.4310 #### [facility] [address] [place], [address] WBC (Bld) [#/Vol] 3.8 10*3/uL Low 4.4-11.0 [facility] Comment on above: Performed By: #### L 300.3900, L300.4310 #### [facility] [address] [place], [address] Carbon dioxide, total [Moles /volume] in Central venous bloodOrdered By: Aaron Herrera on 12-22-2024 CO2 [Moles/Vol] 29.9 mmol/L 21.0-32.0 [facility] Chloride assayOrdered By: Migdalia ttgiovanni Herrera on 12-22-2024 Chloride [Moles/Vol] 97 mmol/L Low 98-108 [facility] Comprehensive Metabolic Prof ilon 12-22-2024 Albumin [Mass/Vol] 4.1 g/dL Normal 3.4-4.8 [facility] Comment on above: Performed By: #### L 300.3900, L300.4310 #### [facility] [address] [place], [address] Albumin/Globulin [Mass ratio] 1.3 {ratio} Normal 0.9-2.4 [facility] Comment on above: Performed By: #### L 300.3900, L300.4310 #### [facility] [address] [place], [address] ALK PHOS 211 U/L High 35-104 [facility] Comment on above: Performed By: #### L 300.3900, L300.4310 #### [facility] [address] [place], [address] ALT [Catalytic activity/Vol] 39 U/L High <=34 [facility] Comment on above: Performed By: #### L 300.3900, L300.4310 #### [facility] [address] [place], [address] AST [Catalytic activity/Vol] 37 U/L High <=31 [facility] Comment on above: Performed By: #### L 300.3900, L300.4310 #### [facility] [address] [place], [address] Bilirubin [Mass/Vol] 0.41 mg/dL Normal 0.00-1.30 [facility] Comment on above: Performed By: #### L 300.3900, L300.4310 #### [facility] [address] [place], [address] BUN/CRE 10.7 RATIO Normal 10-20 [facility] Comment on above: Performed By: #### L 300.3900, L300.4310 #### [facility] [address] [place], [address] Calcium [Mass/Vol] 8.9 mg/dL Normal 7.6-11.0 [facility] Comment on above: Performed By: #### L 300.3900, L300.4310 #### [facility] [address] [place], [address] Chloride [Moles/Vol] 97 mmol/L Low 98-108 [facility] Comment on above: Performed By: #### L 300.3900, L300.4310 #### [facility] [address] [place], [address] CO2 [Moles/Vol] 29.9 mmol/L Normal 21.0-32.0 [facility] Comment on above: Performed By: #### L 300.3900, L300.4310 #### [facility] [address] [place], [address] Creatinine [Mass/Vol] 0.70 mg/dL Normal 0.70-1.20 [facility] Comment on above: Performed By: #### L 300.3900, L300.4310 #### [facility] [address] [place], [address] GAP 12 Normal 5-15 [facility] Comment on above: Performed By: #### L 300.3900, L300.4310 #### [facility] [address] [place], [address] GFR/1.73 sq M.predicted among non-blacks MDRD (S/P/Bld) [Vol rate/Area] 93 mL/min/{1.73_m2} Normal >60 [facility] Comment on above: Result Comment: mL/m in/1.73m2 CKD-EPI Creatinine Equation (2020) Performed By: #### L 300.3900, L300.4310 #### [facility] [address] [place], [address] Globulin (S) [Mass/Vol] 3.2 g/dL Normal 2.2-4.2 [facility] Comment on above: Performed By: #### L 300.3900, L300.4310 #### [facility] [address] [place], [address] Glucose [Mass/Vol] 102 mg/dL High 70-99 [facility] Comment on above: Performed By: #### L 300.3900, L300.4310 #### [facility] [address] [place], [address] Potassium [Moles/Vol] 3.6 mmol/L Normal 3.3-5.1 [facility] Comment on above: Performed By: #### L 300.3900, L300.4310 #### [facility] [address] [place], [address] Sodium [Moles/Vol] 138 mmol/L Normal 133-145 [facility] Comment on above: Performed By: #### L 300.3900, L300.4310 #### [facility] [address] [place], [address] T PROT 7.3 g/dL Normal 5.9-8.4 [facility] Comment on above: Performed By: #### L 300.3900, L300.4310 #### [facility] [address] [place], [address] Urea nitrogen [Mass/Vol] 7 mg/dL Normal 4-19 [facility] Comment on above: Performed By: #### L 300.3900, L300.4310 #### [facility] [address] [place], [place], [address] Eosinophil percentageOrdered By: Aaron Herrera on 12-22-2024 Eosinophils/100 WBC (Bld) 2.1 % 0-5 [facility] Erythrocyte distribution wid th ratioOrdered By: Aaron Herrera on 12-22-2024 Erythrocyte distribution width (RBC) [Ratio] 14.5 % 11.6-14.6 [facility] Erythrocyte distribution wid th standard deviationOrdered By: Aaron Herrera on 12-22-2024 Erythrocyte distribution width (RBC) [Entitic vol] 45.1 fL High 35.1-43.9 [facility] Erythrocyte distribution width (RBC) [Ratio] 45.1 fl High 35.1-43.9 [facility] GFR/1.73 sq M.predicted franchesca g non-blacks MDRD (S/P/Bld) [Vol rate/Area]Ordered By: Aaron Herrera on 12-22-2024 Estimated GFR (MDRD) Non-Af Amer 93 >60 [facility] Comment on above: mL/min/1.73m2 CKD-EP I Creatinine Equation (2020) Glomerular filtration rate ( GFR) estimation/1.73 sq m using serum, plasma, or whole bOrdered By: Aaron Herrera on 12-22-2024 GFR/1.73 sq M.predicted among non-blacks MDRD (S/P/Bld) [Vol rate/Area] 93 mL/min/{1.73_m2} >60 [facility] Comment on above: mL/min/1.73m2 CKD-EP I Creatinine Equation (2020) Hematocrit Auto (Bld) [Volum e fraction]Ordered By: Aaron Herrera on 12-22-2024 Hematocrit (Bld) [Volume fraction] 33.0 % Low 37-47 [facility] Hemoglobin measurementOrdere d By: Aaron Herrera on 12-22-2024 Hemoglobin (Bld) [Mass/Vol] 10.6 g/dL Low 12.0-15.0 [facility] Immature granulocytes/100 WB C Auto (Bld)Ordered By: Aaron Herrera on 12-22-2024 Immature granulocytes/100 WBC (Bld) 0.800 % 0.0-0.9 [facility] Comment on above: IG% - Immature Granu locytes (promyelocytes, myelocytes and metamyelocytes) > 1% indicates that a LEFT SHIFT is Present. Internal Medicine Office Vis iton 12-22-2024 Internal Medicine Office Visit [facility] [address] [place] [address] [place] [address] OFFICE VISIT Date of Service: 12/22/24 MR#: [id number] Acct: [id number] Name: ZORA NIXON Rep #: [id number] : 1955 Provider: VANNESSA Ward Age/Sex: 69/F [place] [facility] [place]: Signed Intake Vital Signs 12/11/24 16:41 12/22/24 10:43 Height 5 ft 5 ft Weight: 129 lb 8 oz BMI 25.2 BP 118/64 Blood Pressure Location Lt brachial Position Sitting Respiration 12 Pulse 67 Pulse Source Monitor Temp 97.5 F L Temp Source Temporal Pulse Oximetry (%) 92 Oxygen Delivery Method room air Intake Visit Reasons: [facility] FU Chief Complaint: [facility] [employer] Required: No Accompanied by: Self Is patient in pain?: No Allergies No Known Allergies Allergy (Verified 12/22/24 10:42) Medications ???Medication ???Instructions ???Recorded ???Confirmed ???Type aspirin 81 mg chewable tablet 81 mg PO DAILY 11/23/17 12/22/24 H istory melatonin 10 mg capsule 10 mg PO HS PRN sleep 11/23/1705/11 History calcium carbonate 600 mg PO BID 06/30/18 12/22/24 Hi story amlodipine 10 mg tablet 10 mg PO QDAY #90 tabs 05/11/24 Rx nitroglycerin 0.4 mg sublingual See Rx Instructions .Route 4 12/22/24 Rx tablet .COMPLEX #75 tabs rosuvastatin 20 mg tablet 20 mg PO DAILY #90 tabs 05/11/24 0 12/22/24 Rx sertraline 100 mg tablet 100 mg PO QDAY #90 tabs 05/11/24 0 12/22/24 Rx trazodone 100 mg tablet 100 mg PO QHS PRN insomnia #90 tab s 05/11/24 12/22/24 Rx handicap placard #1 ea 09/01/24 12/22/24 Rx cholecalciferol (vitamin D3) 50 50 mcg PO DAILY 12/08/24 12/22/24 History mcg (2,000 unit) capsule (Vitamin D3) lisinopril 5 mg tablet 5 mg PO DAILY 12/08/24 12/22/24 Hi story pantoprazole 40 mg tablet,delayed 40 mg PO BID 12/08/24 12/22/24 Hi story release sotalol 80 mg tablet (Betapace) 80 mg PO DAILY 12/08/24 12/22/24 H istory cefdinir 300 mg capsule 300 mg PO Q12 #7 caps 12/15/2405/11 Rx Have you fallen in the past year?: No PFSH Medical History Nontraumatic psoas hematoma Hyperbilirubinemia Severe anemia Non-ST elevation [place] (NSTEMI) Rhabdomyolysis Thrombocytopenia CAD (coronary artery disease) Chronic pain Atrial fibrillation ICD (implantable cardioverter-defibrill ator) in place Urinary urgency Metastasis to bone [...] participate in: none HPI HPI Chief Complaint[facility] Details: ZORA NIXON, is a 69 F who presents to the office today for hospital f/u. Patient went to the ED due to diarrhea and vomiting. She states that she wasnt even feeling that bad just had those symptoms. She ended up being admitted to the hospital after she developed a pancytopenia as well as a neutropenic fever and therefore they gave her transfusion of platelets and continue to monitor. They continue to give her IV fluids while they monitor her. Patient ended up being in the hospital for a week. During that time she states her symptoms of vomiting and diarrhea resolved. She states that since being home she feels great. She has not had any vomiting or diarrhea since being home. She states that her energy is good. She is eating and drinking good (she states that she doesn't have a great appetite in general). Her bowels again are normal and she is urinating fine. She is sleeping well. She has no concerns or complaints at this time. ROS (more content not included)... Normal [facility] - Chemistry and C hemistry - challengeOrdered By: Aaron Herrera on 12-22-2024 AST [Catalytic activity/Vol] 37 U/L High <32 [facility] Lymphocytes Auto (Unsp spec) [#/Vol]Ordered By: Aaron Herrera on 12-22-2024 Lymphocytes (Bld) [#/Vol] 1.29 10*3/uL 0.83-4.5 1 [facility] Lymphocytes/100 WBC Auto (Un sp spec)Ordered By: Aaron Herrera on 12-22-2024 Lymphocytes/100 WBC (Bld) 33.7 % 19-41 [facility] MCV (mean corpuscular volume ) determinationOrdered By: Aaron Herrera on 12-22-2024 MCV (RBC) [Entitic vol] 90.4 fL 81-99 [facility] Mean corpuscular hemoglobin (MCH) determinationOrdered By: Aaron Herrera on 12-22-2024 MCH (RBC) [Entitic mass] 29.0 pg 27.0-32.0 [facility] Mean corpuscular hemoglobin concentration (MCHC) determinationOrdered By: Aaron Herrera on 12-22-2024 MCHC (RBC) [Mass/Vol] 32.1 g/dL 32-36 [facility] Mean platelet volume determi nationOrdered By: Aaron Herrera on 12-22-2024 Platelet mean volume (Bld) [Entitic vol] 10.1 fL 6.2-12.0 [facility] Monocyte percentageOrdered B y: Aaron Herrera on 12-22-2024 Monocytes/100 WBC (Bld) 16.4 % High 0-10 [facility] Neutrophil percentageOrdered By: Aaron Herrera on 12-22-2024 Neutrophils/100 WBC (Bld) 46.7 % Low 47-70 [facility] Nucleated red blood cell per centageOrdered By: Aaron Herrera on 12-22-2024 Nucleated RBC/100 WBC (Bld) [Ratio] 0 % 0-5 [facility] Platelet countOrdered By: Migdalia Herrera on 12-22-2024 Platelets (Bld) [#/Vol] 266 10*3/uL 150-450 [facility] Potassium (Unsp spec) [Mass/ Vol]Ordered By: Aaron Herrera on 12-22-2024 Potassium [Moles/Vol] 3.6 mmol/L 3.3-5.1 [facility] Potassium measurement (mass/ volume)Ordered By: Aaron Herrera on 12-22-2024 Potassium (Unsp spec) [Mass/Vol] 3.6 mmol/L 3.3-5.1 [facility] RBC Auto (Bld) [#/Vol]Ordere d By: Aaron Herrera on 12-22-2024 RBC (Bld) [#/Vol] 3.65 10*6/uL Low 4.2-5.4 [facility] Serum creatinine measurement (mass/volume)Ordered By: Aaron Herrera on 12-22-2024 Creatinine [Mass/Vol] 0.70 mg/dL 0.70-1.20 [facility] Serum globulin measurementOr dered By: Aaron Herrera on 12-22-2024 Globulin (S) [Mass/Vol] 3.2 g/dL 2.2-4.2 [facility] Serum glucose measurement (m ass/volume)Ordered By: Aaron Herrera on 12-22-2024 Glucose [Mass/Vol] 102 mg/dL High 70-99 [facility] Serum or plasma alanine mohr otransferase (ALT) measurementOrdered By: Aaron Herrera on 12-22-2024 ALT [Catalytic activity/Vol] 39 U/L High <35 [facility] Serum or plasma albumin robert urement (mass/volume)Ordered By: Aaron Herrera on 12-22-2024 Albumin [Mass/Vol] 4.1 g/dL 3.4-4.8 [facility] Serum or plasma albumin/glob ulin mass ratioOrdered By: Aaron Herrera on 12-22-2024 Albumin/Globulin [Mass ratio] 1.3 {ratio} 0.9-2.4 [facility] Serum or plasma alkaline sofía sphatase measurementOrdered By: Aaron Herrera on 12-22-2024 ALP [Catalytic activity/Vol] 211 U/L High 35-104 [facility] Serum or plasma calcium robert urement (mass/volume)Ordered By: Aaron Herrera on 12-22-2024 Calcium [Mass/Vol] 8.9 mg/dL 7.6-11.0 [facility] Serum or plasma urea nitroge n measurement (mass/volume)Ordered By: Aaron Herrera on 12-22-2024 Urea nitrogen [Mass/Vol] 7 mg/dL 4-19 [facility] Sodium levelOrdered By: Jorge Alberto Herrera on 12-22-2024 Sodium [Moles/Vol] 138 mmol/L 133-145 [facility] Total proteinOrdered By: Prince Herrera on 12-22-2024 Protein [Mass/Vol] 7.3 g/dL 5.9-8.4 [facility] White blood cell (WBC) count Ordered By: Aaron Herrera on 12-22-2024 WBC (Bld) [#/Vol] 3.8 10*3/uL Low 4.4-11.0 [facility] CBC W Auto Differential pane l (Bld)on 12-18-2024 Basophils (Bld) [#/Vol] 0.01 x10*3/uL Normal 0.00-0.10 [facility] Comment on above: Performed By: #### 5 7021-8 ####RUEL Yi ([id number])[facility] ([facility])[address] [place] [address]175 Basophils/100 WBC (Bld) 0.5 % Normal 0.0-2.0 [facility] Comment on above: Performed By: #### 5 7021-8 ####RUEL Yi ([id number])[facility] ([facility])[address] [place] [address] 07767 Eosinophils (Bld) [#/Vol] 0.01 x10*3/uL Normal 0.00-0. 70 [facility] Comment on above: Performed By: #### 5 7021-8 ####RUEL Yi ([id number])[facility] ([facility])[address] [place] [address] 55866 Eosinophils/100 WBC (Bld) 0.5 % Normal 0.0-6.0 [facility] Comment on above: Performed By: #### 5 7021-8 ####RUEL Yi ([id number])[facility] ([facility])[address] [place] [address] 06058 Erythrocyte distribution width (RBC) [Ratio] 13.4 % Normal 11.5-14.5 [facility] Comment on above: Performed By: #### 5 7021-8 ####RUEL Yi ([id number])[facility] ([facility])[address] [place] [address] 46282 Hematocrit (Bld) [Volume fraction] 30.0 % Low 36.0-46.0 [facility] Comment on above: Performed By: #### 5 7021-8 ####RUEL iY ([id number])[facility] ([facility])[address] [place] [address] 16344 Hemoglobin (Bld) [Mass/Vol] 9.9 g/dL Low 12.0-16.0 [facility] Comment on above: Performed By: #### 5 7021-8 ####RUEL Yi ([id number])[facility] ([facility])[address] [place] [address] 85222 Immature granulocytes (Bld) [#/Vol] 0.02 x10*3/uL Normal 0.00-0.70 [facility] Comment on above: Performed By: #### 5 7021-8 ####RUEL Yi ([id number])[facility] ([facility])[address] [place] [address] 05060 Immature granulocytes/100 WBC (Bld) 0.9 % Normal 0.0-0.9 [facility] Comment on above: Result Comment: Krystle ture Granulocyte Count (IG) includes promyelocytes, myelocytes and metamyelocytes but does not include bands. Percent differential counts (%) should be interpreted in the context of the absolute cell counts (cells/UL). Performed By: #### 5 7021-8 ####RUEL Yi ([id number])[facility] ([facility])[address] [place] [address] Lymphocytes (Bld) [#/Vol] 1.00 x10*3/uL Low 1.20-4. 80 [facility] Comment on above: Performed By: #### 5 7021-8 ####RUEL Yi ([id number])[facility] ([facility])[address] [place] [address] 78805 Lymphocytes/100 WBC (Bld) 46.5 % Normal 13.0-44.0 [facility] Comment on above: Performed By: #### 5 7021-8 ####RUEL Yi ([id number])[facility] ([facility])[address] [place] [address] 56848 MCH (RBC) [Entitic mass] 29.2 pg Normal 26.0-34.0 [facility] Comment on above: Performed By: #### 5 7021-8 ####RUEL Yi ([id number])[facility] ([facility])[address] [place] [address] 73997 MCHC (RBC) [Mass/Vol] 33.0 g/dL Normal 32.0-36.0 [facility] Comment on above: Performed By: #### 5 7021-8 ####RUEL Yi ([id number])[facility] ([facility])[address] [place] [address] 67777 MCV (RBC) [Entitic vol] 89 fL Normal 80-100 [facility] Comment on above: Performed By: #### 5 7021-8 ####RUEL Yi ([id number])[facility] ([facility])[address] [place] [address] 71545 Monocytes (Bld) [#/Vol] 0.69 x10*3/uL Normal 0.10-1.00 [facility] Comment on above: Performed By: #### 5 7021-8 ####RUEL Yi ([id number])[facility] ([facility])[address] [place] [address] 38370 Monocytes/100 WBC (Bld) 32.1 % Normal 2.0-10.0 [facility] Comment on above: Performed By: #### 5 7021-8 ####RUEL Yi ([id number])[facility] ([facility])[address] [place] [address] 85385 Neutrophils (Bld) [#/Vol] 0.42 x10*3/uL Low 1.20-7. 70 [facility] Comment on above: Result Comment: Perc ent differential counts (%) should be interpreted in the context of the absolute cell counts (cells/uL). Performed By: #### 5 7021-8 ####RUEL Yi ([id number])[facility] ([facility])[address] [place] [address] 73698 Neutrophils/100 WBC (Bld) 19.5 % Normal 40.0-80.0 [facility] Comment on above: Performed By: #### 5 7021-8 ####RUEL Yi ([id number])[facility] ([facility])[address] [place] [address] 85110 Nucleated RBC/100 WBC (Bld) [Ratio] [facility] Comment on above: Result Comment: Not Measured Performed By: #### 5 7021-8 ####RUEL Yi ([id number])[facility] ([facility])[address] [place] [address] 10645 Platelets (Bld) [#/Vol] 95 x10*3/uL Low 150-450 [facility] Comment on above: Performed By: #### 5 7021-8 ####RUEL Yi ([id number])[facility] ([facility])[address] [place] [address] 96897 RBC (Bld) [#/Vol] 3.39 x10*6/uL Low 4.00-5.20 [facility] Comment on above: Performed By: #### 5 7021-8 ####RUEL iY ([id number])[facility] ([facility])[address] [place] [address] WBC (Bld) [#/Vol] 2.2 x10*3/uL Low 4.4-11.3 [facility] Comment on above: Performed By: #### 5 7021-8 ####RUEL iY ([id number])[facility] ([facility])[address] [place] [address] Absolute lymphocyte countOrd ered By: Guillaume Spring on 12-15-2024 Lymphocytes Auto (Unsp spec) [#/Vol] 0.58 10*3/uL Low 0.83-4.51 [facility] Absolute neutrophil countOrd ered By: Guillaume Spring on 12-15-2024 Neutrophils (Bld) [#/Vol] 0.4 10*3/uL Low 2.0-7.7 [facility] Automated lymphocyte count a s percentage of total leukocytesOrdered By: Guillaume Spring on 12-15-2024 Lymphocytes/100 WBC Auto (Unsp spec) 49.2 % High 19-41 [facility] [id number] 12-15-2024 ABO and Rh group Nom (Bld) Blood group B Rh(D) positive Normal [facility] Comment on above: Order Comment: Numbe r of units to be transfused: 1YRY6 pack platelet Performed By: #### L 501.4020 #### [facility] [address] [place], [address] BPPHRon 12-15-2024 PPHR Normal [facility] Comment on above: Result Comment: [id number] BP PPHR TRANSFUSED 12/15/24 1046 Performed By: #### L 501.4020 #### [facility] [address] [place], [address] Basophil percentageOrdered B y: Guillaume Spring on 12-15-2024 Basophils/100 WBC (Bld) 0.0 % 0-1 [facility] Blood polychromasia detectio n by light microscopyOrdered By: Guillaume Spring on 12-15-2024 Polychromasia LM Ql (Bld) 1+ [facility] CBC W/Diff, Automatedon 11-19 PATH REV Reviewed Normal [facility] Comment on above: Result Comment: Panc ytopenia. Leukopenia and neutropenia. Normocytic anemia. MARKED Thrombocytopenia. Clinical correlation necessary. Froy Hager M.D. 12/15/24 AMENDED REPORT 12/15/24925 PATH REV previously reported as: February alex Performed By: #### L 300.3900, L300.4310 #### [facility] [address] [place], [address] Culture, Blood (WB)on 2024 CUB Blood cultures x2, from two different sites No growth in 5 days. Normal [facility] Comment on above: Performed By: #### M 200.1000 ####[facility] [address] [place], [address] Discharge Instructionon 11-19 Discharge Instruction [facility] Medical Records Department [address] [place] [address] Instructions for Home/Discharge Instructions 12/15/24 1357 MR#: [id number] Acct: [id number] Name: ZORA [place] Rep #: [id number] : 1955 69 From: Guillaume Spring DO PCP: Dr. Daniela Fallon MD Status:ADM IN Discharge Instructions Diet Discharge Diet: No restrictions DC O2, CPAP, BIPAP needs Home O2 Discharge instructions: No Dressing / Incision Discharge Activity: Return to Normal Activity Weight Bearing Status: Full weight bearing Follow Up Care Test Results: Test results from this visit will be discussed in further detail at your follow-up appointment, if applicable. Discharge Plan Admission Admit Date/Time: 12/10/24 12:12 Primary Reason for Your Visit: Neutropenic fever, pancytopenia Attending Provider: Guillaume Spring Primary Care Provider: Daniela Fallon Consulting Providers: Tere Price; Siva Subramanian; Gerson Renae Instructions Additional Instructions / Restrictions: Follow-up with your oncologist on Wednesday or Wednesday of next week to have a repeat CBC drawn Discharge Orders/Prescriptions Prescriptions: New cefdinir 300 mg Capsule 300 mg PO Q12 Qty: 7 0RF Continued aspirin 81 mg tablet,chewable 81 mg PO DAILY melatonin 10 mg capsule 10 mg PO HS PRN (Reason: sleep) calcium carbonate 600 mg calcium (1,500 mg) tablet 600 mg PO BID rosuvastatin 20 mg tablet 20 mg PO DAILY Qty: 90 3RF Rx Instructions: TAKE 1 TABLET BY MOUTH ONCE DAILY trazodone 100 mg tablet 100 mg PO QHS PRN (Reason: insomnia) Qty: 90 1RF sertraline 100 mg tablet 100 mg PO [...] 0RF Rx Instructions: placard for one year lisinopril 5 mg tablet 5 mg PO DAILY cholecalciferol (vitamin D3) [Vitamin D3] 50 mcg (2,000 unit) capsule 50 mcg PO DAILY sotalol [Betapace] 80 mg tablet 80 mg PO DAILY pantoprazole 40 mg tablet,delayed release (DR/EC) 40 mg PO BID Referrals / Follow Up: Daniela Fallon MD [Primary Care Provider] - Within 2 Weeks Disposition Disposition (needs filled in before D/C Order can be placed): Home, Self Care 12/15/24 1403 Guillaume Spring DO CC: Dr. Tere Price MD; Dr. Daniela Fallon MD; Dr. Gerson Renae MD; Dr. Siva Subramanian MD Signed Normal [facility] Eosinophil percentageOrdered By: Guillaume Spring on 12-15-2024 Eosinophils/100 WBC (Bld) 0.8 % 0-5 [facility] Erythrocyte distribution wid th ratioOrdered By: Guillaume Spring on 12-15-2024 Erythrocyte distribution width (RBC) [Ratio] 13.2 % 11.6-14.6 [facility] Erythrocyte distribution wid th standard deviationOrdered By: Guillaume Spring on 12-15-2024 Erythrocyte distribution width (RBC) [Entitic vol] 41.5 fL 35.1-43.9 [facility] Erythrocyte distribution width (RBC) [Ratio] 41.5 fl 35.1-43.9 [facility] Hematocrit Auto (Bld) [Volum e fraction]Ordered By: Guillaume Spring on 12-15-2024 Hematocrit (Bld) [Volume fraction] 25.4 % Low 37-47 [facility] Hemoglobin measurementOrdere d By: Guillaume Spring on 12-15-2024 Hemoglobin (Bld) [Mass/Vol] 8.6 g/dL Low 12.0-15.0 [facility] Immature granulocytes/100 WB C Auto (Bld)Ordered By: Guillaume Spring on 12-15-2024 Immature granulocytes/100 WBC (Bld) 0.000 % 0.0-0.9 [facility] Comment on above: IG% - Immature Granu locytes (promyelocytes, myelocytes and metamyelocytes) > 1% indicates that a LEFT SHIFT is Present. Lymphocytes Auto (Unsp spec) [#/Vol]Ordered By: Guillaume Spring on 12-15-2024 Lymphocytes (Bld) [#/Vol] 0.58 10*3/uL Low 0.83-4.5 1 [facility] Lymphocytes/100 WBC Auto (Un sp spec)Ordered By: Guillaume Spring on 12-15-2024 Lymphocytes/100 WBC (Bld) 49.2 % High 19-41 [facility] MCV (mean corpuscular volume ) determinationOrdered By: Guillaume Spring on 12-15-2024 MCV (RBC) [Entitic vol] 86.1 fL 81-99 [facility] Mean corpuscular hemoglobin (MCH) determinationOrdered By: Guillaume Spring on 12-15-2024 MCH (RBC) [Entitic mass] 29.2 pg 27.0-32.0 [facility] Mean corpuscular hemoglobin concentration (MCHC) determinationOrdered By: Guillaume Spring on 12-15-2024 MCHC (RBC) [Mass/Vol] 33.9 g/dL 32-36 [facility] Mean platelet volume determi nationOrdered By: Guillaume Spring on 12-15-2024 Platelet mean volume (Bld) [Entitic vol] 13.6 fL High 6.2-12.0 [facility] Monocyte percentageOrdered B y: Guillaume Spring on 12-15-2024 Monocytes/100 WBC (Bld) 19.5 % High 0-10 [facility] Neutrophil percentageOrdered By: Guillaume Spring on 12-15-2024 Neutrophils/100 WBC (Bld) 30.5 % Low 47-70 [facility] Nucleated red blood cell per centageOrdered By: Guillaume Spring on 12-15-2024 Nucleated RBC/100 WBC (Bld) [Ratio] 0 % 0-5 [facility] Ovalocyte detectionOrdered B y: Guillaume Spring on 12-15-2024 Ovalocytes LM Ql (Bld) 1+ [facility] Ovalocytes LM Ql (Bld)Ordere d By: Guillaume Spring on 12-15-2024 Ovalocytes 1+ [facility] Pathologist review Kyle (Unsp spec) [Interp]Ordered By: Guillaume Spring on 12-15-2024 Differential Pathologist's Review Reviewed [facility] Comment on above: Previous reported re sult: Idania johnson Edited by: VANCE on 01/01/25:1034THE PERIPHERAL SMEAR SHOWS A NORMOCHROMIC NORMOCYTIC ANEMIA. THERE IS A MARKEDLY LEUKOPENIA DUE TO DECREASED NEUTROPHILS. PLATELETS ARE SEVERELY DECREASED.Ruel Alaniz MD 01/01/2025 AMENDED REPORT 01/01/251033 PATH REV previously reported as: Idania johnson Platelet countOrdered By: Migdalia Spring on 12-15-2024 Platelets (Bld) [#/Vol] 15 10*3/uL Low 150-450 [facility] Comment on above: CRITICAL VALUE ANDINO D TO KINGSLEY RIOS ([facility])12/15/24 0544 Aaron Becerra.RESULTS READ BACK BY SAME. Platelet estimateOrdered By: Guillaume Spring on 12-15-2024 Platelets LM Ql (Bld) MKD DEC [facility] Platelets LM Ql (Bld)Ordered By: Guillaume Spring on 12-15-2024 Platelet Estimate MKD DEC [facility] Polychromasia LM Ql (Bld)Ord ered By: Guillaume Spring on 12-15-2024 Polychromasia 1+ [facility] RBC Auto (Bld) [#/Vol]Ordere d By: Guillaume Spring on 12-15-2024 RBC (Bld) [#/Vol] 2.95 10*6/uL Low 4.2-5.4 [facility] Reactive lymphocyte countOrd ered By: Guillaume Spring on 12-15-2024 Reactive Lymphocytes 2+ [facility] Review by pathologistOrdered By: Guillaume Spring on 12-15-2024 Pathologist review Kyle (Unsp spec) [Interp] Reviewed [facility] Comment on above: Previous reported re sult: Idania johnson Edited by: MELONY on 01/01/25:1034THE PERIPHERAL SMEAR SHOWS A NORMOCHROMIC NORMOCYTIC ANEMIA. THERE IS A MARKEDLY LEUKOPENIA DUE TO DECREASED NEUTROPHILS. PLATELETS ARE SEVERELY DECREASED.Ruel Alaniz MD 01/01/2025 AMENDED REPORT 01/01/251033 PATH REV previously reported as: Idania johnson White blood cell (WBC) count Ordered By: Guillaume Spring on 12-15-2024 WBC (Bld) [#/Vol] 1.2 10*3/uL Low 4.4-11.0 [facility] Comment on above: CRITICAL VALUE ANDINO D TO KINGSLEY RIOS (U)12/15/24 0544 Aaron Becerra.RESULTS READ BACK BY SAME. Blood manual differential co mment interpretation (narrative result)Ordered By: Guillaume Spring on 12-14-2024 Manual differential comment Kyle (Bld) [Interp] See comment [facility] Comment on above: MARKED LEUKOCYTOPENI AMARKED THROMBOCYTOPENIA Manual differential comment Kyle (Bld) [Interp]Ordered By: Guillaume Spring on 12-14-2024 Differential Comment See comment [facility] Comment on above: MARKED LEUKOCYTOPENI AMARKED THROMBOCYTOPENIA BUN/creatinine ratioOrdered By: Guillaume Spring on 12-13-2024 Urea nitrogen/Creatinine [Mass ratio] 11.6 mg/mg 10-20 [facility] Basic Metabolic Profile (BMP )on 12-13-2024 Anion gap [Moles/Vol] 10 mmol/L Normal 5-15 [facility] Comment on above: Performed By: #### L 500.2500, L100.0100 #### [facility] [address] [place], [address] BUN/CRE 11.6 RATIO Normal 10-20 [facility] Comment on above: Performed By: #### L 500.2500, L100.0100 #### [facility] [address] [place], [address] Calcium [Mass/Vol] 7.8 mg/dL Normal 7.6-11.0 [facility] Comment on above: Performed By: #### L 500.2500, L100.0100 #### [facility] [address] [place], [address] Chloride [Moles/Vol] 98 mmol/L Normal 96-108 [facility] Comment on above: Performed By: #### L 500.2500, L100.0100 #### [facility] [address] [place], [address] CO2 [Moles/Vol] 27.4 mmol/L Normal 22.0-29.0 [facility] Comment on above: Performed By: #### L 500.2500, L100.0100 #### [facility] [address] [place], [address] Creatinine [Mass/Vol] 0.6 mg/dL Normal 0.6-1.0 [facility] Comment on above: Performed By: #### L 500.2500, L100.0100 #### [facility] [address] [place], [address] ECRCL 54.19 ml/min Normal [facility] Comment on above: Performed By: #### L 500.2500, L100.0100 #### [facility] [address] [place], [address] GFR/1.73 sq M.predicted among non-blacks MDRD (S/P/Bld) [Vol rate/Area] 98 mL/min/{1.73_m2} Normal >60 [facility] Comment on above: Result Comment: mL/m in/1.73m2 CKD-EPI Creatinine Equation (2020) Performed By: #### L 500.2500, L100.0100 #### [facility] [address] [place], [address] Glucose [Mass/Vol] 96 mg/dL Normal 70-99 [facility] Comment on above: Performed By: #### L 500.2500, L100.0100 #### [facility] [address] [place], [address] Potassium [Moles/Vol] 3.4 mmol/L Normal 3.3-5.1 [facility] Comment on above: Performed By: #### L 500.2500, L100.0100 #### [facility] [address] [place], [address] Sodium [Moles/Vol] 136 mmol/L Normal 133-145 [facility] Comment on above: Performed By: #### L 500.2500, L100.0100 #### [facility] [address] [place], [address] Urea nitrogen [Mass/Vol] 7 mg/dL Normal 4-19 [facility] Comment on above: Performed By: #### L 500.2500, L100.0100 #### [facility] [address] [place], [address] CBC W/Diff, Automatedon 11-19 PATH REV Reviewed Normal [facility] Comment on above: Result Comment: Panc ytopenia. Leukopenia and neutropenia. Normocytic anemia. MARKED Thrombocytopenia. Clinical correlation necessary. Froy Hager M.D. 12/13/24 AMENDED REPORT 12/13/24 1336 PATH REV previously reported as: Idania johnson Performed By: #### L 500.2500, L100.0100 #### [facility] [address] [place], [address] Carbon dioxide measurementOr dered By: Guillaume Spring on 12-13-2024 CO2 [Moles/Vol] 27.4 mmol/L 22.0-29.0 [facility] Chloride measurementOrdered By: Guillaume Spring on 12-13-2024 Chloride [Moles/Vol] 98 mmol/L 96-108 [facility] Creatinine [Moles/Vol]Ordere d By: Guillaume Spring on 12-13-2024 Creatinine [Mass/Vol] 0.6 mg/dL 0.6-1.0 [facility] Estimation of creatinine rhiannon aranceOrdered By: Guillaume Spring on 12-13-2024 Estimated Creatinine Clearance Calc 54.19 ml/min [facility] GFR/1.73 sq M.predicted franchesca g non-blacks MDRD (S/P/Bld) [Vol rate/Area]Ordered By: Guillaume Spring on 12-13-2024 Estimated GFR (MDRD) Non-Af Amer 98 >60 [facility] Comment on above: mL/min/1.73m2 CKD-EP I Creatinine Equation (2020) Glomerular filtration rate ( GFR) estimation/1.73 sq m using serum, plasma, or whole bOrdered By: Guillaume Spring on 12-13-2024 GFR/1.73 sq M.predicted among non-blacks MDRD (S/P/Bld) [Vol rate/Area] 98 mL/min/{1.73_m2} >60 [facility] Comment on above: mL/min/1.73m2 CKD-EP I Creatinine Equation (2020) Serum glucose measurement (m ass/volume)Ordered By: Guillaume Spring on 12-13-2024 Glucose [Mass/Vol] 96 mg/dL 70-99 [facility] Serum or plasma anion gap de termination (moles/volume)Ordered By: Guillaume Spring on 12-13-2024 Anion gap [Moles/Vol] 10 mmol/L 5-15 [facility] Serum or plasma calcium robert urement (mass/volume)Ordered By: Guillaume Spring on 12-13-2024 Calcium [Mass/Vol] 7.8 mg/dL 7.6-11.0 [facility] Serum or plasma creatinine m easurement (moles/volume)Ordered By: Guillaume Spring on 12-13-2024 Creatinine [Moles/Vol] 0.6 mg/dL 0.6-1.0 [facility] Serum or plasma potassium me asurementOrdered By: Guillaume Spring on 12-13-2024 Potassium [Moles/Vol] 3.4 mmol/L 3.3-5.1 [facility] Serum or plasma sodium measu rement (moles/volume)Ordered By: Guillaume Spring on 12-13-2024 Sodium [Moles/Vol] 136 mmol/L 133-145 [facility] Serum or plasma urea nitroge n measurement (mass/volume)Ordered By: Guillaume Spring on 12-13-2024 Urea nitrogen [Mass/Vol] 7 mg/dL 4-19 [facility] Basic Metabolic Profile (BMP )on 12-12-2024 BUN/CRE 12.0 RATIO Normal 10-20 [facility] Comment on above: Performed By: #### L 300.3900, L300.4310 #### [facility] [address] [place], [address] CA,Total 8.2 mg/dL Low 8.5-10.1 [facility] Comment on above: Performed By: #### L 300.3900, L300.4310 #### [facility] [address] [place], [address] Chloride [Moles/Vol] 102 mmol/L Normal 98-107 [facility] Comment on above: Performed By: #### L 300.3900, L300.4310 #### [facility] [address] [place], [address] CO2 [Moles/Vol] 26.0 mmol/L Normal 21.0-32.0 [facility] Comment on above: Performed By: #### L 300.3900, L300.4310 #### [facility] [address] [place], [address] Creatinine [Mass/Vol] 0.58 mg/dL Normal 0.55-1.02 [facility] Comment on above: Result Comment: The validity of the calculated GFR GFRAA in patients over 70 years has not been determined. Clinical correlation is essential. Performed By: #### L 300.3900, L300.4310 #### [facility] [address] [place], [address] ECRCL 54.23 ml/min Normal [facility] Comment on above: Performed By: #### L 300.3900, L300.4310 #### [facility] [address] [place], [address] EST GFR - AA 131 mL/min Normal >60 [facility] Comment on above: Result Comment: Afri can Maltese GFR Calc Performed By: #### L 300.3900, L300.4310 #### [facility] [address] [place], [address] GAP 8 Normal 5-15 [facility] Comment on above: Performed By: #### L 300.3900, L300.4310 #### [facility] [address] [place], [address] GFR/1.73 sq M.predicted among non-blacks MDRD (S/P/Bld) [Vol rate/Area] 109 mL/min/{1.73_m2} Normal >60 [facility] Comment on above: Result Comment: Non- GFR Calc Performed By: #### L 300.3900, L300.4310 #### [facility] [address] [place], [address] Glucose [Mass/Vol] 86 mg/dL Normal 74-106 [facility] Comment on above: Performed By: #### L 300.3900, L300.4310 #### [facility] [address] [place], [address] Potassium [Moles/Vol] 3.1 mmol/L Low 3.5-5.1 [facility] Comment on above: Performed By: #### L 300.3900, L300.4310 #### [facility] [address] [place], [address] Sodium [Moles/Vol] 136 mmol/L Normal 136-145 [facility] Comment on above: Performed By: #### L 300.3900, L300.4310 #### [facility] [address] [place], [address] Urea nitrogen [Mass/Vol] 7 mg/dL Normal 7-18 [facility] Comment on above: Performed By: #### L 300.3900, L300.4310 #### [facility] [address] [place], [address] CBC W/Diff, Automatedon 02-2 PATH REV Reviewed Normal [facility] Comment on above: Result Comment: Panc ytopenia. Leukopenia and neutropenia. Normocytic anemia. MARKED Thrombocytopenia. Clinical correlation necessary. Froy Hager M.D. 12/12/24 AMENDED REPORT 12/12/24 1152 PATH REV previously reported as: Idania johnson Performed By: #### L 100.0100 #### [facility] [address] [place], [place], [address] Chloride measurementOrdered By: Gerson Renae on 12-12-2024 Chloride [Moles/Vol] 102 mmol/L 98-107 [facility] Estimated glomerular filtrat ion rate (GFR) AmericanOrdered By: Gerson Renae on 12-12-2024 Estimated GFR (MDRD) Amer 131 mL/min >60 [facility] Comment on above: GFR Calc Ova and Parasites 8623on OP OVA AND PARASITES EXAM, ROUTINE These results were obtained using wet preparation(s) and trichrome stained smear. This test does not include testing for Crytosporidium parvum, Cyclospora, or Microsporidia. One negative specimen does not rule out the possibility of a parasitic infection. TESTING PERFORMED AT [facility]. ORIGINAL REPORT ON FILE IN LAB CONTAINS ADDITIONAL TEST SITE INFORMATION. Ova/Parasite Exam NO OVA, CYSTS, OR PARASITES FOUND. Normal [facility] Comment on above: Performed By: #### M 600.5000 ####[facility] [address] [place], [place], [address] Trough vancomycin levelOrder ed By: Guillaume Spring on 12-12-2024 Vancomycin trough [Mass/Vol] 7.6 ug/mL 5.0-15.0 [facility] Comment on above: Recommended goal tro ugh ranges are generally 10-15 mcg/ml for less severe/complicated infections such as cellulitis or UTI and 15-20 mcg/ml for more severe/complicated infections such as bacteremia/sepsis, osteomyelitis, pneumonia or meningitis. Goal trough ranges should take into account indication, patient-specific factors and organism MARBELLA.VANCOMYCIN STANDARED DRUG THERAPY TROUGH LEVEL: 5.0 - 15.0 mg/L VANCOMYCIN HIGH INTENSITY THERAPY TROUGH LEVEL: 15.0 - 20.0 mg/L High Intensity therapy recommended for serious lifethreatening infections include:- Qantklbrig-Moqypvaulyeb-Nfciuueax (Ventilator/Healtcare Associated)-Sepsis PLEASE CONTACT PHARMACY SERVICES (#[id number]) FOR INTERPRETATIONOF RESULTS. Vancomycin trough [Mass/Vol] Ordered By: Guillaume Spring on 12-12-2024 Vancomycin Level Trough 7.6 ug/mL 5.0-15.0 [facility] Comment on above: Recommended goal tro ugh ranges are generally 10-15 mcg/ml for less severe/complicated infections such as cellulitis or UTI and 15-20 mcg/ml for more severe/complicated infections such as bacteremia/sepsis, osteomyelitis, pneumonia or meningitis. Goal trough ranges should take into account indication, patient-specific factors and organism MARBELLA.VANCOMYCIN STANDARED DRUG THERAPY TROUGH LEVEL: 5.0 - 15.0 mg/L VANCOMYCIN HIGH INTENSITY THERAPY TROUGH LEVEL: 15.0 - 20.0 mg/L High Intensity therapy recommended for serious lifethreatening infections include:- Hdljlqhmvg-Mnukenjnkamu-Xaloyahxr (Ventilator/Healtcare Associated)-Sepsis PLEASE CONTACT PHARMACY SERVICES (#[id number]) FOR INTERPRETATIONOF RESULTS. Vancomycin, Trough Levelon 0 12-12-2024 VANCO, TROUGH 7.6 ug/mL Normal 5.0-15.0 [facility] Comment on above: Order Comment: Comme nts: Trough to be drawn 30 mins prior to scheduled [id number] Result Comment: Gustavo mmended goal trough ranges are generally 10-15 mcg/ml for less severe/complicated infections such as cellulitis or UTI and 15-20 mcg/ml for more severe/complicated infections such as bacteremia/sepsis, osteomyelitis, pneumonia or meningitis. Goal trough ranges should take into account indication, patient-specific factors and organism MARBELLA. VANCOMYCIN STANDARED DRUG THERAPY TROUGH LEVEL: 5.0 - 15.0 mg/L VANCOMYCIN HIGH INTENSITY THERAPY TROUGH LEVEL: 15.0 - 20.0 mg/L High Intensity therapy recommended for serious life threatening infections include: - Meningitis -Endocarditis -Pneumonia (Ventilator/Healtcare Associated) -Sepsis PLEASE CONTACT PHARMACY SERVICES (#[id number]) FOR INTERPRETATION OF RESULTS. Performed By: #### L 300.3900, L300.4310 #### [facility] [address] [place], [address] [id number] 12-11-2024 ABO and Rh group Nom (Bld) Blood group B Rh(D) positive Normal [facility] Comment on above: Order Comment: Numbe r of units to be transfused: 1NRN Performed By: #### B 882-1, BPPHR ####[facility] [address] [place], [address] BPPHRon 12-11-2024 PPHR Normal [facility] Comment on above: Result Comment: [id number] BP PPHR TRANSFUSED 12/13/24 1454 Performed By: #### B PPHR ####[facility] [address] [place], [address] Result Comment: [id number] BP PPHR TRANSFUSED 12/11/24 1728 Performed By: #### B 882-1, BPPHR ####[facility] [address] [place], [address] Basic Metabolic Profile (BMP )on 12-11-2024 BUN/CRE 13.1 RATIO Normal 10-20 [facility] Comment on above: Performed By: #### L 300.3900, L300.4310 #### [facility] [address] [place], [address] CA,Total 8.4 mg/dL Low 8.5-10.1 [facility] Comment on above: Performed By: #### L 300.3900, L300.4310 #### [facility] [address] [place], [address] Chloride [Moles/Vol] 104 mmol/L Normal 98-107 [facility] Comment on above: Performed By: #### L 300.3900, L300.4310 #### [facility] [address] [place], [address] CO2 [Moles/Vol] 25.0 mmol/L Normal 21.0-32.0 [facility] Comment on above: Performed By: #### L 300.3900, L300.4310 #### [facility] [address] [place], [address] Creatinine [Mass/Vol] 0.61 mg/dL Normal 0.55-1.02 [facility] Comment on above: Result Comment: The validity of the calculated GFR GFRAA in patients over 70 years has not been determined. Clinical correlation is essential. Performed By: #### L 300.3900, L300.4310 #### [facility] [address] [place], [address] ECRCL 54.15 ml/min Normal [facility] Comment on above: Performed By: #### L 300.3900, L300.4310 #### [facility] [address] [place], [address] EST GFR - AA 124 mL/min Normal >60 [facility] Comment on above: Result Comment: Afri can Maltese GFR Calc Performed By: #### L 300.3900, L300.4310 #### [facility] [address] [place], [address] GAP 7 Normal 5-15 [facility] Comment on above: Performed By: #### L 300.3900, L300.4310 #### [facility] [address] [place], [address] GFR/1.73 sq M.predicted among non-blacks MDRD (S/P/Bld) [Vol rate/Area] 103 mL/min/{1.73_m2} Normal >60 [facility] Comment on above: Result Comment: Non- GFR Calc Performed By: #### L 300.3900, L300.4310 #### [facility] [address] [place], [address] Glucose [Mass/Vol] 86 mg/dL Normal 74-106 [facility] Comment on above: Performed By: #### L 300.3900, L300.4310 #### [facility] [address] [place], [address] Potassium [Moles/Vol] 3.5 mmol/L Normal 3.5-5.1 [facility] Comment on above: Performed By: #### L 300.3900, L300.4310 #### [facility] [address] [place], [address] Sodium [Moles/Vol] 136 mmol/L Normal 136-145 [facility] Comment on above: Performed By: #### L 300.3900, L300.4310 #### [facility] [address] [place], [address] Urea nitrogen [Mass/Vol] 8 mg/dL Normal 7-18 [facility] Comment on above: Performed By: #### L 300.3900, L300.4310 #### [facility] [address] [place], [address] Bilirubin directOrdered By: Gerson Renae on 12-11-2024 Bilirubin.direct [Mass/Vol] 0.34 mg/dL High 0.00-0.30 [facility] Bilirubin, totalOrdered By: Gerson Renae on 12-11-2024 Bilirubin [Mass/Vol] 0.80 mg/dL 0.20-1.00 [facility] Comment on above: For patients on eltr ombopag therapy, use of Dimension [place] TBIL is not recommended. CBC W/Diff, Automatedon 11-19 PATH REV Reviewed Normal [facility] Comment on above: Result Comment: Panc ytopenia. Leukopenia and neutropenia. Normocytic anemia. MARKED Thrombocytopenia. Clinical correlation necessary. Froy Hager M.D. 12/11/24 AMENDED REPORT 12/11/24 1533 PATH REV previously reported as: February Performed By: #### L 300.3900, L300.4310 #### [facility] [address] [place], [place], [address] PATH REV Reviewed Normal [facility] Comment on above: Result Comment: Panc ytopenia. Leukopenia and neutropenia. Normocytic anemia. MARKED Thrombocytopenia. Clinical correlation necessary. Froy Hager M.D. 12/11/24 AMENDED REPORT 12/11/24 1531 PATH REV previously reported as: February Performed By: #### L 500.2500, L100.0100 #### [facility] [address] [place], [place], [address] PATH REV Reviewed Normal [facility] Comment on above: Result Comment: Norm ocytic anemia. MARKED Thrombocytopenia. Clinical correlation necessary. Froy Hager M.D. 12/11/24 AMENDED REPORT 12/11/24 1407 PATH REV previously reported as: February Performed By: #### L 501.4020, L100.0100, L500.4050 ####[facility] [address] [place], [place], [address] PATH REV Reviewed Normal [facility] Comment on above: Result Comment: Norm ocytic anemia. MARKED Thrombocytopenia. Clinical correlation necessary. Froy Hager M.D. 12/11/24 AMENDED REPORT 12/11/24 1406 PATH REV previously reported as: February Performed By: #### L 501.4020 #### [facility] [address] [place], [place], [address] Consultation - Infectious Dx on 12-11-2024 Consultation - Infectious Dx [facility] Medical Records Department [address] [place] [address] Consultation - Infectious Dx 12/11/24 1108 MR#: [id number] Acct: [id number] Name: ZORA NIXON Rep #: [id number] : 1955 69 From: Siva Subramanian MD PCP: Dr. Daniela Fallon MD Status:ADM IN Location: [place] [address] Assessment Plan Assessment/Plan (1) Neutropenic fever: PLAN: Bcx sent yesterday. Stool panel neg. Port in place. Will change to vanc/zosyn for broader coverage. Will follow, thank you (2) Breast cancer metastasized to axillary lymph node: HPI Consult Data Date of Consult: 12/11/24 HPI Narrative Reason for Consultation: fever HPI Narrative: ZORA NIXON, is a 69 F with h/o CAD, CABG, AV replacement, metastatic breast cancer on chemo, presented 12/08 to ED with several days n/v/d (starting 12/06). No sick contacts. No mouth sores. No blood in stool. No issues with R chest port. Came to ED, admitted, had neg stool studies. Put on levaquin/flagyl, had fever and chills last night. No abd pain. Full ROS performed and neg except as noted above. [facility] Medical History Nontraumatic psoas hematoma Hyperbilirubinemia Severe anemia Non-ST elevation [place] (NSTEMI) Rhabdomyolysis Thrombocytopenia CAD (coronary artery disease) Chronic pain Atrial fibrillation ICD (implantable cardioverter-defibrill ator) in place Urinary urgency Metastasis to bone [...] (gastroesophageal reflux disease) Hyperlipemia Hypertension Home Medications ???Medication ???Instructions ???Recorded ???Last Taken ???Type aspirin 81 mg chewable tablet 81 mg PO DAILY 11/23/1706/03/24 H istory melatonin 10 mg capsule 10 mg PO HS PRN sleep 11/23/17 History calcium carbonate 600 mg PO BID 06/30/18 06/03/24 Hi story amlodipine 10 mg tablet 10 mg PO QDAY #90 tabs 05/11/24 Rx nitroglycerin 0.4 mg sublingual See Rx Instructions .Route 4 Unknown Rx tablet .COMPLEX #75 tabs rosuvastatin 20 mg tablet 20 mg PO DAILY #90 tabs 05/11/24 0 06/03/24 Rx sertraline 100 mg tablet 100 mg PO QDAY #90 tabs 05/11/24 0 06/03/24 Rx trazodone 100 mg tablet 100 mg PO QHS PRN insomnia #90 tab s 05/11/24 06/03/24 Rx handicap placard #1 ea 09/01/24 Unknown Rx cholecalciferol (vitamin D3) 50 50 mcg PO DAILY 12/08/24 Unknown H istory mcg (2,000 unit) capsule (Vitamin D3) lisinopril 5 mg tablet 5 mg PO DAILY 12/08/24 Unknown His tory pantoprazole 40 mg tablet,delayed 40 mg PO BID 12/08/24 Unknown His tory release sotalol 80 mg tablet (Betapace) 80 mg PO DAILY 12/08/24 Unknown Hi story Allergy/AdvReac Type Severity Reaction Status Date / Time No Known Allergies Allergy Verified 12/08/24 17:05 Family History Mother CVA (cerebral vascular accident) Breast cancer, Onset Age: 35 Father Heart disease Sister Breast cancer, Onset Age: 50 Heart disease Hypertension Cancer lung Surgical History History of coronary artery bypass graft x 3 History of hysterectomy Cardiac defibrillator in place 4 stents cardiac rythem pacemaker triple bypass, valve replacement, nad aneurysm repair History of tonsillectomy Social History (Updated 12/09/24 @ 02:[address] Tere Price MD) household members: none Smoking Status: Former smoker Tobacco: How many years used: 20 how long ago did patient quit smokin alcohol intake: never substance use type: does not use what type of physical activity do you participate in: none Physical Exam Const alert, oriented x3 and no apparent distress General Appearance: cooperative HEENT normocephalic and head/scalp atraumatic HEENT Narrative: no thrush Eyes PERRL and EOMs intact bilaterally Neck supple and No nodes Resp normal air movement and clear to auscultation bilaterally Cardio regular rate and regular rhythm Heart Sounds: murmur GI soft to palpation, non-tender and non-distended Extremity General Extremity: Negative for edema Skin Skin Narrative: R chest port. Faint lacy rash on RUE. Neuro CN's II-XII intact bilaterally Lab / Micro Data Attestation: I reviewed the patient's lab results. 12/11/24 06:05 12/11/24 06:05 Labs: Labor (more content not included)... Normal [facility] Erythrocyte morphology asses smentOrdered By: Gerson Renae on 12-11-2024 RBC morphology finding Nom (Bld) NORM C+C NORMAL NORM C&C [facility] - Chemistry and C hemistry - challengeOrdered By: Gerson Renae on 12-11-2024 AST [Catalytic activity/Vol] 23 U/L 15- [facility] Liver Profileon 12-11-2024 Albumin [Mass/Vol] 2.4 g/dL Low 3.2-5.0 [facility] Comment on above: Performed By: #### L 300.3900, L300.4310 #### [facility] [address] [place], [address] ALK P 107 U/L Normal 45-117 [facility] Comment on above: Performed By: #### L 300.3900, L300.4310 #### [facility] [address] [place], [address] ALT [Catalytic activity/Vol] 18 U/L Normal 13-56 [facility] Comment on above: Performed By: #### L 300.3900, L300.4310 #### [facility] [address] [place], [address] AST [Catalytic activity/Vol] 23 U/L Normal 15-37 [facility] Comment on above: Performed By: #### L 300.3900, L300.4310 #### [facility] [address] [place], [address] Bilirubin [Mass/Vol] 0.80 mg/dL Normal 0.20-1.00 [facility] Comment on above: Result Comment: For patients on eltrombopag therapy, use of Dimension [place] TBIL is not recommended. Performed By: #### L 300.3900, L300.4310 #### [facility] [address] [place], [address] Bilirubin.direct [Mass/Vol] 0.34 mg/dL High 0.00-0.30 [facility] Comment on above: Performed By: #### L 300.3900, L300.4310 #### [facility] [address] [place], [address] Globulin (S) [Mass/Vol] 3.5 g/dL Normal 2.2-4.2 [facility] Comment on above: Performed By: #### L 300.3900, L300.4310 #### [facility] [address] [place], [address] T PROT 5.9 g/dL Low 6.4-8.2 [facility] Comment on above: Performed By: #### L 300.3900, L300.4310 #### [facility] [address] [place], [address] RBC morphology finding Nom ( Bld)Ordered By: Gerson Renae on 12-11-2024 Red Blood Cell Morphology NORM C+C NORMAL NORM C&C [facility] Serum globulin measurementOr dered By: Gerson Renae on 12-11-2024 Globulin (S) [Mass/Vol] 3.5 g/dL 2.2-4.2 [facility] Serum or plasma alanine mohr otransferase (ALT) measurementOrdered By: Gerson Renae on 12-11-2024 ALT [Catalytic activity/Vol] 18 U/L 13-56 [facility] Serum or plasma albumin robert urement (mass/volume)Ordered By: Gerson Renae on 12-11-2024 Albumin [Mass/Vol] 2.4 g/dL Low 3.2-5.0 [facility] Serum or plasma alkaline sofía sphatase measurementOrdered By: Gerson Renae on 12-11-2024 ALP [Catalytic activity/Vol] 107 U/L 45-117 [facility] Total proteinOrdered By: Fatoumata Renae on 12-11-2024 Protein [Mass/Vol] 5.9 g/dL Low 6.4-8.2 [facility] Basic Metabolic Profile (BMP )on 12-10-2024 BUN/CRE 14.0 RATIO Normal 10-20 [facility] Comment on above: Performed By: #### L 300.3900, L300.4310 #### [facility] [address] [place], [address] CA,Total 8.2 mg/dL Low 8.5-10.1 [facility] Comment on above: Performed By: #### L 300.3900, L300.4310 #### [facility] [address] [place], [address] Chloride [Moles/Vol] 105 mmol/L Normal 98-107 [facility] Comment on above: Performed By: #### L 300.3900, L300.4310 #### [facility] [address] [place], [address] CO2 [Moles/Vol] 26.0 mmol/L Normal 21.0-32.0 [facility] Comment on above: Performed By: #### L 300.3900, L300.4310 #### [facility] [address] [place], [address] Creatinine [Mass/Vol] 0.71 mg/dL Normal 0.55-1.02 [facility] Comment on above: Result Comment: The validity of the calculated GFR GFRAA in patients over 70 years has not been determined. Clinical correlation is essential. Performed By: #### L 300.3900, L300.4310 #### [facility] [address] [place], [address] ECRCL 54.15 ml/min Normal [facility] Comment on above: Performed By: #### L 300.3900, L300.4310 #### [facility] [address] [place], [address] EST GFR - AA 104 mL/min Normal >60 [facility] Comment on above: Result Comment: Afri can Maltese GFR Calc Performed By: #### L 300.3900, L300.4310 #### [facility] [address] [place], [address] GAP 5 Normal 5-15 [facility] Comment on above: Performed By: #### L 300.3900, L300.4310 #### [facility] [address] [place], [address] GFR/1.73 sq M.predicted among non-blacks MDRD (S/P/Bld) [Vol rate/Area] 86 mL/min/{1.73_m2} Normal >60 [facility] Comment on above: Result Comment: Non- GFR Calc Performed By: #### L 300.3900, L300.4310 #### [facility] [address] [place], [address] Glucose [Mass/Vol] 102 mg/dL Normal 74-106 [facility] Comment on above: Result Comment: Fast ing Glucose result from 100 to 125 mg/dL suggests IMPAIRED HOMEOSTASIS per A.D.A. criteria. Performed By: #### L 300.3900, L300.4310 #### [facility] [address] [place], [address] Potassium [Moles/Vol] 3.7 mmol/L Normal 3.5-5.1 [facility] Comment on above: Performed By: #### L 300.3900, L300.4310 #### [facility] [address] [place], [address] Sodium [Moles/Vol] 136 mmol/L Normal 136-145 [facility] Comment on above: Performed By: #### L 300.3900, L300.4310 #### [facility] [address] [place], [address] Urea nitrogen [Mass/Vol] 10 mg/dL Normal 7-18 [facility] Comment on above: Performed By: #### L 300.3900, L300.4310 #### [facility] [address] [place], [address] Bedside Glucoseon 12-10-2024 FINGERSTICK GLU 147 mg/dL High 74-106 [facility] Comment on above: Result Comment: JOSE GEMENT OF PATIENT CARE PER NURSING PROTOCOL Performed By: #### L 300.3900, L300.4310 #### [facility] [address] [place], [address] Blood cultureOrdered By: Fatoumata Renae on 12-10-2024 Bacteria identified Cx Nom (Bld) No growth in 5 days. [facility] Bacteria identified Cx Nom (Bld) No growth in 5 days. [facility] deOrdered By: Gerson Renae on 12-10-2024 Bedside Glucose (Misc Panel) 147 mg/dL High 74-106 [facility] Comment on above: MANAGEMENT OF PATIEN T CARE PER NURSING PROTOCOL Glucose [Mass/Vol] 147 mg/dL High 74-106 [facility] Comment on above: MANAGEMENT OF PATIEN T CARE PER NURSING PROTOCOL Albumin to globulin ratioOrd ered By: Tere Price on 12-09-2024 Albumin/Globulin [Mass ratio] 0.8 {ratio} Low 0.9-2.4 [facility] Bedside Glucoseon 12-09-2024 FINGERSTICK GLU 113 mg/dL High 74-106 [facility] Comment on above: Result Comment: JOSE GEMENT OF PATIENT CARE PER NURSING PROTOCOL Performed By: #### L 501.080 #### [facility] [address] [place], [address] FINGERSTICK GLU 94 mg/dL Normal 74-106 [facility] Comment on above: Result Comment: JOSE GEMENT OF PATIENT CARE PER NURSING PROTOCOL Performed By: #### L 300.3900, L300.4310 #### [facility] [address] [place], [address] Comprehensive Metabolic Prof ilon 12-09-2024 Albumin [Mass/Vol] 3.0 g/dL Low 3.2-5.0 [facility] Comment on above: Order Comment: Comme nts: SPECIMEN #3'TROP' Serial specimen #1, #2 or #3: 3 Performed By: #### L 501.4020, L100.0100, L500.4050 ####[facility] [address] [place], [address] Albumin/Globulin [Mass ratio] 0.8 {ratio} Low 0.9-2.4 [facility] Comment on above: Order Comment: Comme nts: SPECIMEN #3'TROP' Serial specimen #1, #2 or #3: 3 Performed By: #### L 501.4020, L100.0100, L500.4050 ####[facility] [address] [place], [address] ALK P 111 U/L Normal 45-117 [facility] Comment on above: Order Comment: Comme nts: SPECIMEN #3'TROP' Serial specimen #1, #2 or #3: 3 Performed By: #### L 501.4020, L100.0100, L500.4050 ####[facility] [address] [place], [address] ALT [Catalytic activity/Vol] 20 U/L Normal 13-56 [facility] Comment on above: Order Comment: Comme nts: SPECIMEN #3'TROP' Serial specimen #1, #2 or #3: 3 Performed By: #### L 501.4020, L100.0100, L500.4050 ####[facility] [address] [place], [address] AST [Catalytic activity/Vol] 16 U/L Normal 15-37 [facility] Comment on above: Order Comment: Comme nts: SPECIMEN #3'TROP' Serial specimen #1, #2 or #3: 3 Performed By: #### L 501.4020, L100.0100, L500.4050 ####[facility] [address] [place], [address] Bilirubin [Mass/Vol] 0.60 mg/dL Normal 0.20-1.00 [facility] Comment on above: Order Comment: Comme nts: SPECIMEN #3'TROP' Serial specimen #1, #2 or #3: 3 Result Comment: For patients on eltrombopag therapy, use of Dimension [place] TBIL is not recommended. Performed By: #### L 501.4020, L100.0100, L500.4050 ####[facility] [address] [place], [address] BUN/CRE 21.8 RATIO High 10-20 [facility] Comment on above: Order Comment: Comme nts: SPECIMEN #3'TROP' Serial specimen #1, #2 or #3: 3 Performed By: #### L 501.4020, L100.0100, L500.4050 ####[facility] [address] [place], [address] CA,Total 8.7 mg/dL Normal 8.5-10.1 [facility] Comment on above: Order Comment: Comme nts: SPECIMEN #3'TROP' Serial specimen #1, #2 or #3: 3 Performed By: #### L 501.4020, L100.0100, L500.4050 ####[facility] [address] [place], [address] Chloride [Moles/Vol] 104 mmol/L Normal 98-107 [facility] Comment on above: Order Comment: Comme nts: SPECIMEN #3'TROP' Serial specimen #1, #2 or #3: 3 Performed By: #### L 501.4020, L100.0100, L500.4050 ####[facility] [address] [place], [address] CO2 [Moles/Vol] 21.0 mmol/L Normal 21.0-32.0 [facility] Comment on above: Order Comment: Comme nts: SPECIMEN #3'TROP' Serial specimen #1, #2 or #3: 3 Performed By: #### L 501.4020, L100.0100, L500.4050 ####[facility] [address] [place], [address] Creatinine [Mass/Vol] 0.96 mg/dL Normal 0.55-1.02 [facility] Comment on above: Order Comment: Comme nts: SPECIMEN #3'TROP' Serial specimen #1, #2 or #3: 3 Result Comment: The validity of the calculated GFR GFRAA in patients over 70 years has not been determined. Clinical correlation is essential. Performed By: #### L 501.4020, L100.0100, L500.4050 ####[facility] [address] [place], [address] ECRCL 43.82 ml/min Normal [facility] Comment on above: Order Comment: Comme nts: SPECIMEN #3'TROP' Serial specimen #1, #2 or #3: 3 Performed By: #### L 501.4020, L100.0100, L500.4050 ####[facility] [address] [place], [address] EST GFR - AA 73 mL/min Normal >60 [facility] Comment on above: Order Comment: Comme nts: SPECIMEN #3'TROP' Serial specimen #1, #2 or #3: 3 Result Comment: Afri can Maltese GFR Calc Performed By: #### L 501.4020, L100.0100, L500.4050 ####[facility] [address] [place], [address] GAP 10 Normal 5-15 [facility] Comment on above: Order Comment: Comme nts: SPECIMEN #3'TROP' Serial specimen #1, #2 or #3: 3 Performed By: #### L 501.4020, L100.0100, L500.4050 ####[facility] [address] [place], [address] GFR/1.73 sq M.predicted among non-blacks MDRD (S/P/Bld) [Vol rate/Area] 61 mL/min/{1.73_m2} Normal >60 [facility] Comment on above: Order Comment: Comme nts: SPECIMEN #3'TROP' Serial specimen #1, #2 or #3: 3 Result Comment: Non- GFR Calc Performed By: #### L 501.4020, L100.0100, L500.4050 ####[facility] [address] [place], [address] Globulin (S) [Mass/Vol] 4.0 g/dL Normal 2.2-4.2 [facility] Comment on above: Order Comment: Comme nts: SPECIMEN #3'TROP' Serial specimen #1, #2 or #3: 3 Performed By: #### L 501.4020, L100.0100, L500.4050 ####[facility] [address] [place], [address] Glucose [Mass/Vol] 66 mg/dL Low 74-106 [facility] Comment on above: Order Comment: Comme nts: SPECIMEN #3'TROP' Serial specimen #1, #2 or #3: 3 Performed By: #### L 501.4020, L100.0100, L500.4050 ####[facility] [address] [place], [address] Potassium [Moles/Vol] 4.6 mmol/L Normal 3.5-5.1 [facility] Comment on above: Order Comment: Comme nts: SPECIMEN #3'TROP' Serial specimen #1, #2 or #3: 3 Performed By: #### L 501.4020, L100.0100, L500.4050 ####[facility] [address] [place], [address] Sodium [Moles/Vol] 135 mmol/L Low 136-145 [facility] Comment on above: Order Comment: Comme nts: SPECIMEN #3'TROP' Serial specimen #1, #2 or #3: 3 Performed By: #### L 501.4020, L100.0100, L500.4050 ####[facility] [address] [place], [address] T PROT 7.0 g/dL Normal 6.4-8.2 [facility] Comment on above: Order Comment: Comme nts: SPECIMEN #3'TROP' Serial specimen #1, #2 or #3: 3 Performed By: #### L 501.4020, L100.0100, L500.4050 ####[facility] [address] [place], [address] Urea nitrogen [Mass/Vol] 21 mg/dL High 7-18 [facility] Comment on above: Order Comment: Comme nts: SPECIMEN #3'TROP' Serial specimen #1, #2 or #3: 3 Performed By: #### L 501.4020, L100.0100, L500.4050 ####[facility] [address] [place], [address] ENTERIC PATHOGEN PANEL STOOL on 12-09-2024 EP PANEL New/unexplained onse t of 3 or more stools in past 24 hrs? Y CAMPYLOBACTER Not Detected Norovirus Not Detected Rotavirus Not Detected Salmonella Not Detected Shiga Toxin Not Detected Shigella sp. Not Detected VIBRIO Not Detected Yersinia Not Detected Normal [facility] Comment on above: Performed By: #### M 100.6796, M100.637 ####[facility] [address] [place], [address] L501.4020on 12-09-2024 TROPONIN-I HS 57 pg/mL High 3.0-54.0 [facility] Comment on above: Order Comment: Comme nts: SPECIMEN #3'TROP' Serial specimen #1, #2 or #3: 3 Result Comment: Plea se Note: New Test Units and Gender Specific Reference Ranges. For more information see Policy Stat Procedure [place] High Sensitivity Troponin (TNIH) and attachments. Performed By: #### L 501.4020, L100.0100, L500.4050 ####[facility] [address] [place], [address] TROPONIN-I HS 53 pg/mL Normal 3.0-54.0 [facility] Comment on above: Order Comment: Comme nts: SPECIMEN #2'TROP' Serial specimen #1, #2 or #3: 2 Result Comment: Plea se Note: New Test Units and Gender Specific Reference Ranges. For more information see Policy Stat Procedure [place] High Sensitivity Troponin (TNIH) and attachments. Performed By: #### L 300.3900, L300.4310 #### [facility] [address] [place], [address] TROPONIN-I HS 52 pg/mL Normal 3.0-54.0 [facility] Comment on above: Order Comment: 'TROP ' Serial specimen #1, #2 or #3: 1 Result Comment: Plea se Note: New Test Units and Gender Specific Reference Ranges. For more information see Policy Stat Procedure [place] High Sensitivity Troponin (TNIH) and attachments. Performed By: #### L 501.4020 ####[facility] [address] [place], [address] Procalcitoninon 12-09-2024 Procalcitonin 1.49 ng/mL High 0.00-0.09 [facility] Comment on above: Result Comment: A procalcitonin (PCT) level above 2.0 ng/mL on the first day of ICU admission is associated with a high risk for progression to severe sepsis and/or septic shock. A PCT level below 0.5 ng/mL on the first day of ICU admission is associated with a low risk for progression to severe and/or septic shock. Note: Concentrations <0.5 ng/mL do not exclude an infection on account of localized infections (without systemic signs) which can be associated with such low concentrations, or a systemic infection in its initial stages (<6 hours). Furthermore, increased procalcitonin can occur without infection. PCT concentrations between 0.5 and 2.0 ng/mL should be interpreted taking into account the patient's history. It is recommended to retest PCT within 6-24 hours if any concentrations <2 ng/mL are obtained. Performed By: #### L 500.2500, L100.0100 #### [facility] [address] [place], [address] Procalcitonin [Mass/Vol]Orde red By: Tere Price on 12-09-2024 Procalcitonin 1.49 ng/mL High 0.00-0.09 [facility] Comment on above: A procalcitonin (PCT ) level above 2.0 ng/mL on the first day of ICU admission is associated with a high risk for progression to severe sepsis and/or septic shock. A PCT level below 0.5 ng/mL on the first day of ICU admission is associated with a low risk for progression to severe and/or septic shock. Note: Concentrations <0.5 ng/mL do not exclude an infection on account of localized infections (without systemic signs) which can be associated with such low concentrations, or a systemic infection in its initial stages (<6 hours). Furthermore, increased procalcitonin can occur without infection. PCT concentrations between 0.5 and 2.0 ng/mL should be interpreted taking into account the patient's history. It is recommended to retest PCT within 6-24 hours if any concentrations <2 ng/mL are obtained. Serum procalcitonin measurem entOrdered By: Tere Price on 12-09-2024 Procalcitonin [Mass/Vol] 1.49 ng/mL High 0.00-0.09 [facility] Comment on above: A procalcitonin (PCT ) level above 2.0 ng/mL on the first day of ICU admission is associated with a high risk for progression to severe sepsis and/or septic shock. A PCT level below 0.5 ng/mL on the first day of ICU admission is associated with a low risk for progression to severe and/or septic shock. Note: Concentrations <0.5 ng/mL do not exclude an infection on account of localized infections (without systemic signs) which can be associated with such low concentrations, or a systemic infection in its initial stages (<6 hours). Furthermore, increased procalcitonin can occur without infection. PCT concentrations between 0.5 and 2.0 ng/mL should be interpreted taking into account the patient's history. It is recommended to retest PCT within 6-24 hours if any concentrations <2 ng/mL are obtained. Troponin IOrdered By: Tere Price on 12-09-2024 Troponin I 57 pg/mL High 3.0-54.0 [facility] Comment on above: Please Note: New Lila t Units and Gender Specific Reference Ranges. For more information see Policy Stat Procedure [place] High Sensitivity Troponin (TNIH) and attachments. Troponin I High Sensitivity 57 pg/mL High 3.0-54.0 [facility] Comment on above: Please Note: New Lila t Units and Gender Specific Reference Ranges. For more information see Policy Stat Procedure [place] High Sensitivity Troponin (TNIH) and attachments. 12 Lead EKGon 12-08-2024 12 Lead EKG [facility] [address] [place] [address] 12 Lead EKG 12/08/242018 MR#: [id number] Acct: [id number] Name: ZORA NIXON Rep #: [id number] : 1955 69 From: Ellis Jung MD Attending Dr: Dr. Guillaume Spring, DO Status: A DM IN Ordering Dr: Krzysztof Leal DO Date: 5 Location: [facility] Sex: F C Admitted: 12/10/24 Test Reason : DYSRHYTHMIA Blood Pressure : */* mmHG Vent. Rate : 77 BPM Atrial Rate : 77 BPM P-R Int : 218 ms QRS Dur : 98 ms QT Int : 426 ms P-R-T Axes : 14 14 90 degrees QTcB Int : 482 ms Sinus rhythm with 1st degree A-V block Septal infarct , age undetermined Abnormal ECG Confirmed by Ellis Jung ([id number]), technical editor SNEHAL HENRIQUEZ ([id number]) on 12/11/2024 9:56:36 AM Referred By: Confirmed By: Ellis Jung 12/11/24 0956 Date Ellis Jung MD CC: Dr. Krzysztof Leal DO; Dr. Daniela Fallon MD; Dr. Guillaume Spring DO Signed Normal [facility] Abdomen/Pelvis W IV Cont ONL Yon 12-08-2024 Abdomen/Pelvis W IV Cont ONLY [facility] [address] [place] [address] [id number] Abdomen/Pelvis W IV Cont ONLY MR#: [id number] Acct: [id number] Name: ZORA NIXON Rep #: [id number] : 1955 F 69 From: Tracie Tang nd, MD PCP: Dr. Daniela Fallon MD Status: REG ER Study: Abdomen/Pelvis W IV Cont ONLY Date of Exam: Exam# [id number] Ordering Dr: Krzysztof Leal DO PROCEDURE: ABDOMEN/PELVIS W IV CONT ONLY REASON FOR EXAM: 69-year-old female, nausea and vomiting, diarrhea. TECHNIQUE: Abdomen and pelvis CT with intravenous contrast. No oral contrast. IV CONTRAST: Isovue-300 COMPARISON: CTA chest 12 824, CT abdomen pelvis 06/05/2024. FINDINGS: Lung bases: Prior median sternotomy, CABG and aortic valve replacement. Partially visualized cardiac pacer wires. The heart is normal in size. Bibasilar atelectasis. Liver: The liver is normal in size without focal hepatic mass. The major portal veins are patent. No biliary ductal dilation. Gallbladder: Stable cholelithiasis without gallbladder wall thickening or pericholecystic fluid. Spleen: Unremarkable. Pancreas: Unremarkable. Adrenals: Unremarkable. Kidneys: No hydronephrosis or nephrolithiasis. Incidental duplicated left renal collecting system. Bladder: Decompressed. Reproductive Organs: Prior hysterectomy. Bowel: Small hiatal hernia. The bowel loops are nondilated. Mild fluid distention of the large bowel loops. No ascites or free air. Normal appendix. Lymph nodes: No suspicious lymph node enlargement. Vasculature: Moderate mixed atherosclerotic plaque throughout the aortoiliac vessels. Bones/soft tissues: Chronic bilateral rib fracture deformities. New sclerotic lesion within the posterior superior iliac crest. Surgical clips/calcifications within the visualized right lower breast. CT/Abdomen/Pelvis W IV Cont ONLY IMPRESSION: 1. No acute abdominopelvic finding. 2. Mild fluid distention of the large bowel loops, which can be seen with enteritis. 3. New sclerotic lesion within the posterior superior iliac crest, likely a benign bone island, however given partial visualization of surgical clips/calcifications within the visualized right lower breast, correlation with history of breast cancer and prior bone imaging is recommended to evaluate for stability. One or more dose reduction techniques were used (e.g., Automated exposure control, adjustment of the mA and/or kV according to patient size, use of iterative reconstruction technique). Reading Location: [facility] CC: Dr. Krzysztof Leal DO; Dr. Daniela Fallon MD Pick Up: Signed Normal [facility] Bilirubin Test strip Ql (U)O rdered By: Krzysztof Leal on 12-08-2024 Bilirubin Ql (U) Negative Negative [facility] C. difficile DNA JULISSA+probe Q l (Unsp spec)Ordered By: Krzysztof Leal on 12-08-2024 Clostridioides difficile (PCR) [facility] CDIFF (PCR)on 12-08-2024 CDIFF New/unexplained onse t of 3 or more stools in past 24 hrs? Y A positive C. difficile molecular test does not differentiate between an active C. difficile infection and C. difficile colonization. Use clinical judgement and paired toxin/antigen testing to identify true infection and need for treatment. C diff DNA Spec Ql JULISSA+probe Reference Range: Negative Mophie GeneXpert: polymerase chain reaction (PCR) 027 027 NAP1-B1 Presumptive Negative *for epidemiolologic???use C. Diff PCR Negative- No toxigenic C. Diff Detected Normal [facility] Comment on above: Performed By: #### M 100.6796, M100.637 ####[facility] [address] [place], [address] Chest PA and Lateralon 12-08 Chest PA and Lateral [facility] [address] [place] [address] Chest PA and Lateral MR#: [id number] Acct: [id number] Name: ZORA NIXON Rep #: [id number] : 1955 F 69 From: Tracie Tang nd, MD PCP: Dr. Daniela Fallon MD Status: REG ER Study: Chest PA and Lateral Date of Exam: 12/08/24 Exam# [id number] Ordering Dr: Krzysztof Leal DO PROCEDURE: CHEST PA AND LATERAL REASON FOR EXAM: 69-year-old female, nausea and vomiting. Currently on chemotherapy. TECHNIQUE: Frontal and lateral views of the chest. COMPARISON: CTA chest 09/24/2024. FINDINGS: Right IJ chest port with tip terminating in the right atrium. Prior median sternotomy, aortic valve replacement and left chest wall ICD. The heart size is normal. The mediastinal contour is unremarkable. Stable right middle lobe atelectasis/volume loss, compatible with radiation fibrosis. No pleural effusion or pneumothorax. Degenerative changes are identified within the thoracic spine. RAD/Chest PA and Lateral IMPRESSION: NO SIGNIFICANT CHANGE SINCE THE PRIOR EXAM. Reading Location: [id number] CC: Dr. Krzysztof Leal DO; Dr. Daniela Fallon MD Pick Up: Signed Normal [facility] Clostridium difficile detect ion by polymerase chain reactionOrdered By: Krzysztof Leal on 12-08-2024 C. difficile DNA JULISSA+probe Ql (Unsp spec) [facility] Comprehensive Metabolic Prof ilon 12-08-2024 Albumin [Mass/Vol] 3.0 g/dL Low 3.2-5.0 [facility] Comment on above: Order Comment: 'TROP ' Serial specimen #1, #2 or #3: 1 Performed By: #### L 501.4020 #### [facility] [address] [place], [address] Albumin/Globulin [Mass ratio] 0.8 {ratio} Low 0.9-2.4 [facility] Comment on above: Order Comment: 'TROP ' Serial specimen #1, #2 or #3: 1 Performed By: #### L 501.4020 #### [facility] [address] [place], [address] ALK P 105 U/L Normal 45-117 [facility] Comment on above: Order Comment: 'TROP ' Serial specimen #1, #2 or #3: 1 Performed By: #### L 501.4020 #### [facility] [address] [place], [address] ALT [Catalytic activity/Vol] 22 U/L Normal 13-56 [facility] Comment on above: Order Comment: 'TROP ' Serial specimen #1, #2 or #3: 1 Performed By: #### L 501.4020 #### [facility] [address] [place], [address] AST [Catalytic activity/Vol] 16 U/L Normal 15-37 [facility] Comment on above: Order Comment: 'TROP ' Serial specimen #1, #2 or #3: 1 Performed By: #### L 501.4020 #### [facility] [address] [place], [address] Bilirubin [Mass/Vol] 1.30 mg/dL High 0.20-1.00 [facility] Comment on above: Order Comment: 'TROP ' Serial specimen #1, #2 or #3: 1 Result Comment: For patients on eltrombopag therapy, use of Dimension [place] TBIL is not recommended. Performed By: #### L 501.4020 #### [facility] [address] [place], [address] BUN/CRE 17.6 RATIO Normal 10-20 [facility] Comment on above: Order Comment: 'TROP ' Serial specimen #1, #2 or #3: 1 Performed By: #### L 501.4020 #### [facility] [address] [place], [address] CA,Total 8.5 mg/dL Normal 8.5-10.1 [facility] Comment on above: Order Comment: 'TROP ' Serial specimen #1, #2 or #3: 1 Performed By: #### L 501.4020 #### [facility] [address] [place], [address] Chloride [Moles/Vol] 95 mmol/L Low 98-107 [facility] Comment on above: Order Comment: 'TROP ' Serial specimen #1, #2 or #3: 1 Performed By: #### L 501.4020 #### [facility] [address] [place], [address] CO2 [Moles/Vol] 25.0 mmol/L Normal 21.0-32.0 [facility] Comment on above: Order Comment: 'TROP ' Serial specimen #1, #2 or #3: 1 Performed By: #### L 501.4020 #### [facility] [address] [place], [address] Creatinine [Mass/Vol] 1.19 mg/dL High 0.55-1.02 [facility] Comment on above: Order Comment: 'TROP ' Serial specimen #1, #2 or #3: 1 Result Comment: The validity of the calculated GFR GFRAA in patients over 70 years has not been determined. Clinical correlation is essential. Performed By: #### L 501.4020 #### [facility] [address] [place], [address] EST GFR - AA 58 mL/min Low >60 [facility] Comment on above: Order Comment: 'TROP ' Serial specimen #1, #2 or #3: 1 Result Comment: Afri can Maltese GFR Calc Performed By: #### L 501.4020 #### [facility] [address] [place], [address] GAP 9 Normal 5-15 [facility] Comment on above: Order Comment: 'TROP ' Serial specimen #1, #2 or #3: 1 Performed By: #### L 501.4020 #### [facility] [address] [place], [address] GFR/1.73 sq M.predicted among non-blacks MDRD (S/P/Bld) [Vol rate/Area] 48 mL/min/{1.73_m2} Low >60 [facility] Comment on above: Order Comment: 'TROP ' Serial specimen #1, #2 or #3: 1 Result Comment: Non- GFR Calc Performed By: #### L 501.4020 #### [facility] [address] [place], [address] Globulin (S) [Mass/Vol] 3.7 g/dL Normal 2.2-4.2 [facility] Comment on above: Order Comment: 'TROP ' Serial specimen #1, #2 or #3: 1 Performed By: #### L 501.4020 #### [facility] [address] [place], [address] Glucose [Mass/Vol] 90 mg/dL Normal 74-106 [facility] Comment on above: Order Comment: 'TROP ' Serial specimen #1, #2 or #3: 1 Performed By: #### L 501.4020 #### [facility] [address] [place], [address] Potassium [Moles/Vol] 3.4 mmol/L Low 3.5-5.1 [facility] Comment on above: Order Comment: 'TROP ' Serial specimen #1, #2 or #3: 1 Performed By: #### L 501.4020 #### [facility] [address] [place], [address] Sodium [Moles/Vol] 129 mmol/L Low 136-145 [facility] Comment on above: Order Comment: 'TROP ' Serial specimen #1, #2 or #3: 1 Performed By: #### L 501.4020 #### [facility] [address] [place], [address] T PROT 6.7 g/dL Normal 6.4-8.2 [facility] Comment on above: Order Comment: 'TROP ' Serial specimen #1, #2 or #3: 1 Performed By: #### L 501.4020 #### [facility] [address] [place], [address] Urea nitrogen [Mass/Vol] 21 mg/dL High 7-18 [facility] Comment on above: Order Comment: 'TROP ' Serial specimen #1, #2 or #3: 1 Performed By: #### L 501.4020 #### [facility] [address] [place], [address] Emergency Department Summary on 12-08-2024 Emergency Department Summary [facility] Medical Records Department [address] [place] [address] Emergency Department Summary 12/08/24 MR#: [id number] Acct: [id number] Name: ZORA NIXON Rep #: [id number] : 1955 69 From: Krzysztof Leal DO PCP: Dr. Daniela Fallon MD Status:ADM [facility] Location: [place] [address] HPI History of Present Illness Chief Complaint: General Illness Narrative Narrative: Chief complaint and HPI: Nausea, vomiting, diarrhea. 69-year-old female with history of metastatic breast cancer on chemotherapy, HTN, CAD on Plavix, HLD presents for evaluation of nausea, vomiting, diarrhea. Patient states that she follows with Dr. Davey with hematology/oncology. She states that she receives chemo every 2 weeks and then is off a week. She does not know what chemotherapy she receives. She states that her second week of chemotherapy was Wednesday and now she will be off for a week. She states since Wednesday she has had nausea, vomiting, diarrhea. All nonbloody. She denies any fever, chills, URI symptoms, chest pain, shortness of breath, abdominal pain, dysuria. She denies any sick contacts. Patient states that she has had decreased p.o. intake secondary to her symptoms. These are not typical chemotherapy symptoms for her. Review of systems: See HPI Medications: As listed on the chart Allergies: As listed on the chart PFSH: Per chart Vital signs: As listed on the chart. Reviewed. Physical exam: Gen: A O x3, NAD Head: Normocephalic, atraumatic Eyes: No sclera icterus, conjunctiva clear ENT: Dry mucous membranes Neck: Trachea midline, No JVD CV: RRR, no murmurs, no peripheral edema Resp: Lungs CTA BL, no w/r/c GI: Abd soft, non-distended, non-tender, no r/r/g Musc: Full ROM, no deformity Skin: Warm, dry Neuro: Alert, oriented, grossly intact, sensation intact Psych: Cooperative, appropriate mood and affect [facility] Medical History Nontraumatic psoas hematoma Hyperbilirubinemia Severe anemia Non-ST elevation [place] (NSTEMI) Rhabdomyolysis Thrombocytopenia CAD (coronary artery disease) Chronic pain Atrial fibrillation ICD (implantable cardioverter-defibrill ator) in place Urinary urgency Metastasis to bone [...] (gastroesophageal reflux disease) Hyperlipemia Hypertension Home Medications ???Medication ???Instructions ???Recorded ???Last Taken ???Type aspirin 81 mg chewable tablet 81 mg PO DAILY 18 24 H istory melatonin 10 mg capsule 10 mg PO HS PRN sleep 11/23/17 History calcium carbonate 600 mg PO BID 06/30/18 06/03/24 Hi story amlodipine 10 mg tablet 10 mg PO QDAY #90 tabs 05/11/24 Rx nitroglycerin 0.4 mg sublingual See Rx Instructions .Route 4 Unknown Rx tablet .COMPLEX #75 tabs rosuvastatin 20 mg tablet 20 mg PO DAILY #90 tabs 05/11/24 0 06/03/24 Rx sertraline 100 mg tablet 100 mg PO QDAY #90 tabs 05/11/24 0 06/03/24 Rx trazodone 100 mg tablet 100 mg PO QHS PRN insomnia #90 tab s 05/11/24 06/03/24 Rx handicap placard #1 ea 09/01/24 Unknown Rx cholecalciferol (vitamin D3) 50 50 mcg PO DAILY 12/08/24 Unknown H istory mcg (2,000 unit) capsule (Vitamin D3) lisinopril 5 mg tablet 5 mg PO DAILY 12/08/24 Unknown His tory pantoprazole 40 mg tablet,delayed 40 mg PO BID 12/08/24 Unknown His tory release sotalol 80 mg tablet (Betapace) 80 mg PO DAILY 12/08/24 Unknown Hi story Allergy/AdvReac Type Severity Reaction Status Date / Time No Known Allergies Allergy Verified 12/08/24 17:05 Family History Mother CVA (cerebral vascular accident) Breast cancer, Onset Age: 35 Father Heart disease Sister Breast cancer, Onset Age: 50 Heart disease Hypertension Cancer lung Surgical History History of coronary artery bypass graft x 3 History of hysterectomy Cardiac defibrillator in place 4 stents cardiac rythem pacemaker triple bypass, valve replacement, nad aneurysm repair History of tonsillectomy Social History Smoking Status: Former smoker Tobacco: How many years used: 20 how long ago did patient quit smokin alcohol intake: never substance use type: does not use what ty (more content not included)... Normal [facility] Epithelial cells.squamous LM Ql (Urine sed)Ordered By: Krzysztof Leal on 12-08-2024 Epithelial cells.squamous LM.HPF (Urine sed) [#/Area] 0 /[HPF] 5-10 [facility] Glucose Ql (U)Ordered By: Josse Leal on 12-08-2024 Urine Glucose (UA) Normal mg/dl Normal [facility] H AND P Exam - Hospitaliston 12-08-2024 H&P Exam - Hospitalist [facility] Medical Records Department [address] [place] [address] H P Exam - Hospitalist 12/08/24 2311 MR#: [id number] Acct: [id number] Name: ZORA NIXON Rep #: [id number] : 1955 69 From: Tere Price MD PCP: Dr. Daniela Fallon MD Status:ADM PERLA Location: [place] [address] HPI - General General Date of Admission: 12/08/24 Date of Service: 12/08/24 Chief Complaint: N/V/D HPI Narrative The patient is a 69-year-old female with past medical history CAD status post CABG x 3, valvular heart disease status post AV replacement, anxiety and depression, hypertension, hyperlipidemia, GERD, history CVA, chronic anemia, intermittent chronic thrombocytopenia related with chemotherapy, CKD stage III unclear subtype, invasive ductal breast cancer with metastases to lymph nodes and bone, cardiac arrhythmia with suspected PAF, former tobacco use who presents to the [facility] ED on 12/08/2024 with history of persistent nausea, emesis and diarrhea on continued recent chemotherapy following with hematology/oncology Dr. Davey noted that she has chemotherapy every 2 weeks and then is off for another week but unclear specific type with her second week of chemotherapy the Wednesday prior to current presentation and since then persistent nausea, emesis and diarrhea noted to be nonbloody with no recent URI type symptoms or fever or chills nor any associated abdominal pain, dysuria but given ongoing and persistent with poor oral intake prompted ED evaluation to be cautious. She denies this having occurred previously with her chemotherapy. Workup in the ED included T98, heart rate 92, BP 108/57, respiratory rate 16, 93% on room air with most recent repeat vitals T98.4, heart rate 71, BP 93/50, respiratory rate 20, 91% room air, CBC with WC 6.5, hemoglobin 9, MCV 86.9, platelet 27 with increased immature granulocytes with lymphopenia, CMP with sodium 129, potassium 3.4, chloride 95, BUN/creatinine 21/1.19, GFR 48, lactic acid 0.7, T. bili 1.30 otherwise hepatic profile not marked appearing, lipase 44, troponin initial 56 with chronically elevated troponins noted with last 09/24/2024 troponin 107 at that time, chest x-ray with evidence of a right IJ port with the tip terminating in the right atrium, evidence prior median sternotomy, AV replacement and left chest wall ICD in place with stable right middle lobe atelectasis/volume loss compatible with radiation fibrosis with no acute findings noted, CT abdomen and pelvis with IV contrast only with no acute abdominal pelvic findings, mild fluid distention of the large bowel possibly seen with enteritis, new sclerotic lesion within the posterior superior iliac crest likely a benign bone island however given visualized surgical clip/calcifications within the right lower breast radiologist recommended correlation with history of breast cancer and prior bone imaging to evaluate for stability. In the ED patient ministered 1 L normal saline as well as Zofran 4 mg IV x 1. PFSH Medical History Nontraumatic psoas hematoma Hyperbilirubinemia Severe anemia Non-ST elevation [place] (NSTEMI) Rhabdomyolysis Thrombocytopenia CAD (coronary artery disease) Chronic pain Atrial fibrillation ICD (implantable cardioverter-defibrill ator) in place Urinary urgency Metastasis to bone [...] (gastroesophageal reflux disease) Hyperlipemia Hypertension Home Medications ???Medication ???Instructions ???Recorded ???Last Taken ???Type aspirin 81 mg chewable tablet 81 mg PO DAILY 11/23/17 06/03/24 H istory melatonin 10 mg capsule 10 mg PO HS PRN sleep 11/23/17 History calcium carbonate 600 mg PO BID 06/30/18 06/03/24 Hi story amlodipine 10 mg tablet 10 mg PO QDAY #90 tabs 05/11/24 Rx nitroglycerin 0.4 mg sublingual See Rx Instructions .Route 4 Unknown Rx tablet .COMPLEX #75 tabs rosuvastatin 20 mg tablet 20 mg PO DAILY #90 tabs 05/11/24 0 06/03/24 Rx sertraline 100 mg tablet 100 mg PO QDAY #90 tabs 05/11/24 0 06/03/24 Rx trazodone 100 mg tablet 100 mg PO QHS PRN insomnia #90 tab s 05/11/24 06/03/24 Rx handicap placard #1 ea 09/01/24 Unknown Rx cholecalciferol (vitamin D3) 50 50 mcg PO DAILY 12/08/24 Unknown H istory mcg (2,000 unit) capsule (Vitamin D3) lisinopril 5 mg tablet 5 mg PO DAILY 12/08/24 Unknown His tory carreon (more content not included)... Normal [facility] Hypochromatic red blood cell detectionOrdered By: Krzysztofsuzanna Leal on 12-08-2024 Hypochromia Ql (Bld) 1+ [facility] Hypochromia Ql (Bld)Ordered By: Krzysztof Leal on 12-08-2024 Hypochromasia 1+ [facility] Influenza virus A and B and SARS-CoV-2 (COVID-19) and Respiratory syncytial virus RNAOrdered By: Krzysztof Leal on 12-08-2024 SARS-CoV-2 (COVID-19) RNA JULISSA+probe Ql (Unsp spec) [facility] Ketones Test strip Ql (U)Ord ered By: Krzysztof Leal on 12-08-2024 Ketones Ql (U) Negative Negative [facility] L501.4020on 12-08-2024 TROPONIN-I HS 56 pg/mL High 3.0-54.0 [facility] Comment on above: Order Comment: 'TROP ' Serial specimen #1, #2 or #3: 1 Result Comment: Timoteo gonzalez Note: New Test Units and Gender Specific Reference Ranges. For more information see Policy Stat Procedure [place] High Sensitivity Troponin (TNIH) and attachments. Performed By: #### L 501.4020 #### [facility] [address] [place], [place], [id number] Laboratory - Hematology and Cell countsOrdered By: Krzysztof Leal on 12-08-2024 Anisocytosis Ql (Bld) RARE [facility] Lactic Acidon 12-08-2024 Lactate [Moles/Vol] 0.7 mmol/L Normal 0.4-1.9 [facility] Comment on above: Order Comment: Y Performed By: #### L 501.4020 #### [facility] [address] [place], [place], [id number] Lactic acid measurementOrder ed By: Krzysztof Leal on 12-08-2024 Lactate [Moles/Vol] 0.7 mmol/L 0.4-2.0 [facility] Lipaseon 12-08-2024 Lipase [Catalytic activity/Vol] 44 U/L Low 73-393 [facility] Comment on above: Order Comment: 'TROP ' Serial specimen #1, #2 or #3: 1 Performed By: #### L 501.4020 #### [facility] [address] [facility] [place], [place], [address] Lipase measurementOrdered By : Krzysztof Leal on 12-08-2024 Lipase [Catalytic activity/Vol] 44 U/L Low 73-393 [facility] M100.678on 12-08-2024 M100.678 SARS-CoV-2 (COVID 19 ) Negative INFLUENZA A Negative INFLUENZA B Negative RSV PCR Negative Normal [facility] Comment on above: Performed By: #### L 400.0001, M100.678 ####[facility] [address] [place], [place], [id number] Magnesiumon 12-08-2024 Magnesium [Mass/Vol] 2.1 mg/dL Normal 1.6-2.6 [facility] Comment on above: Order Comment: Comme nts: May add to ED labsComments: may add to ED labs Performed By: #### L 500.2500, L100.0100 #### [facility] [address] [facility] [address] [place], [place], [address] Magnesium measurementOrdered By: Tere Price on 12-08-2024 Magnesium [Mass/Vol] 2.1 mg/dL 1.6-2.6 [facility] Microscopic analysis of urin e for red blood cells (RBC)Ordered By: Krzysztof Leal on 12-08-2024 Microscopic analysis of urine for red blood cells (RBC) 0 SEEN /hpf 0-5 [facility] Urine RBC 0 SEEN /hpf 0-5 [facility] Mucus LM Ql (Urine sed)Order ed By: Krzysztof Leal on 12-08-2024 Mucus Ql (Urine sed) 0 SEEN /hpf [facility] Nitrite Test strip Ql (U)Ord ered By: Krzysztof Leal on 12-08-2024 Nitrite Ql (U) Negative Negative [facility] Ova and parasitesOrdered By: Krzysztof Leal on 12-08-2024 Ova and Parasites [facility] Phosphoruson 12-08-2024 Phosphate [Mass/Vol] 3.9 mg/dL Normal 2.5-4.9 [facility] Comment on above: Order Comment: Comme nts: May add to ED labsComments: may add to ED labs Performed By: #### L 500.2500, L100.0100 #### [facility] [address] [facility] [address] [place], [place], [address] Phosphorus measurementOrdere d By: Tere Price on 12-08-2024 Phosphorus Level 3.9 mg/dL 2.5-4.9 [facility] Protein Test strip Ql (U)Ord ered By: Krzysztof Leal on 12-08-2024 Protein Ql (U) 30 mg/dl High Negative [facility] Squamous epithelial cells de tection in urine sediment by light microscopyOrdered By: Krzysztof Leal on 12-08-2024 Epithelial cells.squamous LM Ql (Urine sed) 0 SEEN /hpf 5-10 [facility] Stool enteric pathogen panel by probe and target amplification methodOrdered By: Krzysztof Leal on 12-08-2024 Enteric Bacteriology [facility] Urinalysis, Completeon 12-08 RBC 0 SEEN Normal 0-5 [facility] Comment on above: Order Comment: CLEAN CATCH Performed By: #### L 400.0001, M100.678 ####[facility] [address] [place], [address] BACTERIA 0 SEEN Normal None Seen [facility] Comment on above: Order Comment: CLEAN CATCH Performed By: #### L 400.0001, M100.678 ####[facility] [address] [place], [address] EPI,SQUAMOUS 0 SEEN Normal 5-10 [facility] Comment on above: Order Comment: CLEAN CATCH Performed By: #### L 400.0001, M100.678 ####[facility] [address] [place], [address] Mucus Ql (Urine sed) 0 SEEN Normal [facility] Comment on above: Order Comment: CLEAN CATCH Performed By: #### L 400.0001, M100.678 ####[facility] [address] [place], [address] WBC 0 SEEN Normal 0-5 [facility] Comment on above: Order Comment: CLEAN CATCH Performed By: #### L 400.0001, M100.678 ####[facility] [address] [place], [address] Urine blood detectionOrdered By: Krzysztof Leal on 12-08-2024 Urine Occult Blood 10 /ul High Negative [facility] Urine clarityOrdered By: Onur Leal on 12-08-2024 Clarity (U) Clear Clear [facility] Urine color determinationOrd ered By: Krzysztof Leal on 12-08-2024 Color (U) Yellow Yellow [facility] Urine glucose detectionOrder ed By: Krzysztof Leal on 12-08-2024 Glucose Ql (U) Normal mg/dl Normal [facility] Urine leukocyte esterase det ection by dipstickOrdered By: Krzysztof Leal on 12-08-2024 Leukocyte esterase Test strip Ql (U) Negative Negative [facility] Urine pHOrdered By: Krzysztof Alatorre on 12-08-2024 pH (U) 6.0 [pH] 5.0 - 8.0 [facility] Urine sediment bacteria coun t by microscopy (number/high power field)Ordered By: Krzysztof Leal on 12-08-2024 Bacteria LM.HPF (Urine sed) [#/Area] 0 /[HPF] None Seen [facility] Urine specific gravity measu rementOrdered By: Krzysztof Leal on 12-08-2024 Specific gravity (U) [Rel density] 1.010 1.002-1.030 [facility] Urine urobilinogen measureme ntOrdered By: Krzysztof Leal on 12-08-2024 Urobilinogen Ql (U) Normal mg/dl Normal [facility] Urobilinogen Ql (U)Ordered B y: Krzysztof Leal on 12-08-2024 Urine Urobilinogen Normal mg/dl Normal [facility] White blood cell countOrdere d By: Krzysztof Leal on 12-08-2024 Urine WBC 0 SEEN /hpf 0-5 [facility] White blood cell count 0 SEEN /hpf 0-5 [facility] CBC W Auto Differential pane l (Bld)on 12-05-2024 Basophils (Bld) [#/Vol] 0.01 x10*3/uL Normal 0.00-0.10 [facility] Comment on above: Performed By: #### 5 7021-8 ####RUEL Yi ([id number])[facility] ([facility])[address] [place] [address] Basophils/100 WBC (Bld) 0.2 % Normal 0.0-2.0 [facility] Comment on above: Performed By: #### 5 7021-8 ####RUEL Yi ([id number])[facility] ([facility])[address] [place] [address] Eosinophils (Bld) [#/Vol] 0.07 x10*3/uL Normal 0.00-0. 70 [facility] Comment on above: Performed By: #### 5 7021-8 ####RUEL Yi ([id number])[facility] ([facility])[address] [place] [address] Eosinophils/100 WBC (Bld) 1.3 % Normal 0.0-6.0 [facility] Comment on above: Performed By: #### 5 7021-8 ####RUEL Yi ([id number])[facility] ([facility])[address] [place] [address] Erythrocyte distribution width (RBC) [Ratio] 13.4 % Normal 11.5-14.5 [facility] Comment on above: Performed By: #### 5 7021-8 ####RUEL Yi ([id number])[facility] ([facility])[address] [place] [address] Hematocrit (Bld) [Volume fraction] 38.2 % Normal 36.0-46.0 [facility] Comment on above: Performed By: #### 5 7021-8 ####RUEL Yi ([id number])[facility] ([facility])[address] [place], [place] [id number] Hemoglobin (Bld) [Mass/Vol] 12.5 g/dL Normal 12.0-16.0 [facility] Comment on above: Performed By: #### 5 7021-8 ####RUEL Yi ([id number])[facility] ([facility])[address] [place] [address] Immature granulocytes (Bld) [#/Vol] 0.01 x10*3/uL Normal 0.00-0.70 [facility] Comment on above: Performed By: #### 5 7021-8 ####RUEL iY ([id number])[facility] ([facility])[address] [place] [address] Immature granulocytes/100 WBC (Bld) 0.2 % Normal 0.0-0.9 [facility] Comment on above: Result Comment: Krystle ture Granulocyte Count (IG) includes promyelocytes, myelocytes and metamyelocytes but does not include bands. Percent differential counts (%) should be interpreted in the context of the absolute cell counts (cells/UL). Performed By: #### 5 7021-8 ####RUEL Yi ([id number])[facility] ([facility])[address] [place] [address] Lymphocytes (Bld) [#/Vol] 1.16 x10*3/uL Low 1.20-4. 80 [facility] Comment on above: Performed By: #### 5 7021-8 ####RUEL Yi ([id number])[facility] ([facility])[address] [place] [address]85 Lymphocytes/100 WBC (Bld) 22.1 % Normal 13.0-44.0 [facility] Comment on above: Performed By: #### 5 7021-8 ####RUEL Yi ([id number])[facility] ([facility])[address] [place] [address] 22934 MCH (RBC) [Entitic mass] 29.2 pg Normal 26.0-34.0 [facility] Comment on above: Performed By: #### 5 7021-8 ####RUEL Yi ([id number])[facility] ([facility])[address] [place] [address] 04128 MCHC (RBC) [Mass/Vol] 32.7 g/dL Normal 32.0-36.0 [facility] Comment on above: Performed By: #### 5 7021-8 ####RUEL Yi ([id number])[facility] ([facility])[address] [place] [address] MCV (RBC) [Entitic vol] 89 fL Normal 80-100 [facility] Comment on above: Performed By: #### 5 7021-8 ####RUEL Yi ([id number])[facility] ([facility])[address] [place] [address] Monocytes (Bld) [#/Vol] 0.07 x10*3/uL Low 0.10-1.00 [facility] Comment on above: Performed By: #### 5 7021-8 ####RUEL Yi ([id number])[facility] ([facility])[address] [place] [address]36 Monocytes/100 WBC (Bld) 1.3 % Normal 2.0-10.0 [facility] Comment on above: Performed By: #### 5 7021-8 ####RUEL Yi ([id number])[facility] ([facility])[address] [place] [address] 70199 Neutrophils (Bld) [#/Vol] 3.92 x10*3/uL Normal 1.20-7. 70 [facility] Comment on above: Result Comment: Perc ent differential counts (%) should be interpreted in the context of the absolute cell counts (cells/uL). Performed By: #### 5 7021-8 ####RUEL Yi ([id number])[facility] ([facility])[address] [place] [address] 22872 Neutrophils/100 WBC (Bld) 74.9 % Normal 40.0-80.0 [facility] Comment on above: Performed By: #### 5 7021-8 ####RUEL Yi ([id number])[facility] ([facility])[address] [place] [address] 41579 Nucleated RBC/100 WBC (Bld) [Ratio] Normal [facility] Comment on above: Result Comment: Not Measured Performed By: #### 5 7021-8 ####RUEL Yi ([id number])[facility] ([facility])[address] [place] [address] 56955 Platelets (Bld) [#/Vol] 91 x10*3/uL Low 150-450 [facility] Comment on above: Performed By: #### 5 7021-8 ####RUEL Yi ([id number])[facility] ([facility])[address] [place] [address] 60911 RBC (Bld) [#/Vol] 4.28 x10*6/uL Normal 4.00-5.20 [facility] Comment on above: Performed By: #### 5 7021-8 ####RUEL Yi ([id number])[facility] ([facility])[address] [place] [address] 08287 WBC (Bld) [#/Vol] 5.2 x10*3/uL Normal 4.4-11.3 [facility] Comment on above: Performed By: #### 5 7021-8 ####RUEL Yi ([id number])[facility] ([facility])[address] [place] [address] 68035 Comprehensive metabolic 2000 panelon 11-30-2024 Albumin BCP dye [Mass/Vol] 4.5 g/dL Normal 3.4-5.0 [facility] Comment on above: Performed By: #### 2 4323-8 ####DIANE Nick ([id number])[facility] ([facility])[address] [place] [address] ALP [Catalytic activity/Vol] 96 U/L Normal 33-136 [facility] Comment on above: Performed By: #### 2 4323-8 ####DIANE Nick ([id number])[facility] ([facility])[address] [place] [address] ALT With P-5'-P [Catalytic activity/Vol] 10 U/L Normal 7-45 [facility] Comment on above: Result Comment: Maria E ents treated with Sulfasalazine may generate falsely decreased results for ALT. Performed By: #### 2 4323-8 ####DIANE Nick ([id number])[facility] ([facility])[address] [place] [address] Anion gap [Moles/Vol] 14 mmol/L Normal 10-20 [facility] Comment on above: Performed By: #### 2 4323-8 ####DIANE Nick ([id number])[facility] ([facility])[address] [place] [address] AST With P-5'-P [Catalytic activity/Vol] 16 U/L Normal 9-39 [facility] Comment on above: Performed By: #### 2 4323-8 ####DIANE Nick ([id number])[facility] ([facility])[address] [place] [address] Bilirubin [Mass/Vol] 0.4 mg/dL Normal 0.0-1.2 [facility] Comment on above: Performed By: #### 2 4323-8 ####DIANE Nick ([id number])[facility] ([facility])[address] [place] [address] Calcium [Mass/Vol] 8.8 mg/dL Normal 8.6-10.6 [facility] Comment on above: Performed By: #### 2 4323-8 ####DIANE Nick ([id number])[facility] ([facility])[address] [place] [address] Chloride [Moles/Vol] 101 mmol/L Normal 98-107 [facility] Comment on above: Performed By: #### 2 4323-8 ####DIANE MOCTEZUMA L ([id number])[facility] ([facility])[address] [place] [address] CO2 [Moles/Vol] 30 mmol/L Normal 21-32 [facility] Comment on above: Performed By: #### 2 4323-8 ####DIANE MOCTEZUMA L ([id number])[facility] ([facility])[address] [place] [address] Creatinine [Mass/Vol] 0.89 mg/dL Normal 0.50-1.05 [facility] Comment on above: Performed By: #### 2 4323-8 ####DIANE MOCTEZUMA L ([id number])[facility] ([facility])[address] [place] [address] Glomerular filtration rate/1.73 sq M.predicted 70 mL/min/1.73m*2 Normal >60 [facility] Comment on above: Result Comment: Calc ulations of estimated GFR are performed using the 2020 CKD-EPI Study Refit equation without the race variable for the IDMS-Traceable creatinine methods.https://jasn.asnjournals.org/content/early 2/ASN.2330519551 Performed By: #### 2 4323-8 ####DIANE MOCTEZUMA L ([id number])[facility] ([facility])[address] [place] [address] Glucose [Mass/Vol] 66 mg/dL Low 74-99 [facility] Comment on above: Performed By: #### 2 4323-8 ####DIANE MOCTEZUMA L ([id number])[facility] ([facility])[address] [place] [address] Potassium [Moles/Vol] 3.9 mmol/L Normal 3.5-5.3 [facility] Comment on above: Performed By: #### 2 4323-8 ####DIANE CABRALMOTZER L ([id number])[facility] ([facility])[address] [place] [address] Protein [Mass/Vol] 6.9 g/dL Normal 6.4-8.2 [facility] Comment on above: Performed By: #### 2 4323-8 ####DIANE CABRALMOTZER L ([id number])[facility] ([facility])[address] [place] [address] Sodium [Moles/Vol] 141 mmol/L Normal 136-145 [facility] Comment on above: Performed By: #### 2 4323-8 ####DIANE CABRALMOLOYDA L ([id number])[facility] ([facility])[address] [place] [address] Urea nitrogen [Mass/Vol] 15 mg/dL Normal 6-23 [facility] Comment on above: Performed By: #### 2 4323-8 ####DIANE Nick ([id number])[facility] ([facility])[id number] [place] [address] CBC W Auto Differential pane l (Bld)on 11-29-2024 Basophils (Bld) [#/Vol] 0.03 x10*3/uL Normal 0.00-0.10 [facility] Comment on above: Performed By: #### 5 7021-8 ####DIANE Nick ([id number])[facility] ([facility])[id number] [place] [address]695 Basophils/100 WBC (Bld) 0.7 % Normal 0.0-2.0 [facility] Comment on above: Performed By: #### 5 7021-8 ####DIANE Nick ([id number])[facility] ([facility])[id number] [place] [address] Eosinophils (Bld) [#/Vol] 0.11 x10*3/uL Normal 0.00-0. 70 [facility] Comment on above: Performed By: #### 5 7021-8 ####DIANE Nick ([id number])[facility] ([facility])[id number] [place] [address]21 Eosinophils/100 WBC (Bld) 2.6 % Normal 0.0-6.0 [facility] Comment on above: Performed By: #### 5 7021-8 ####DIANE Nick ([id number])[facility] ([facility])[address] [place] [address] Erythrocyte distribution width (RBC) [Ratio] 13.6 % Normal 11.5-14.5 [facility] Comment on above: Performed By: #### 5 7021-8 ####DIANE Nick ([id number])[facility] ([facility])[address] [place] [address] Hematocrit (Bld) [Volume fraction] 38.8 % Normal 36.0-46.0 [facility] Comment on above: Performed By: #### 5 7021-8 ####DIANE Nick ([id number])[facility] ([facility])[address] [place] [address] Hemoglobin (Bld) [Mass/Vol] 12.6 g/dL Normal 12.0-16.0 [facility] Comment on above: Performed By: #### 5 7021-8 ####DIANE Nick ([id number])[facility] ([facility])[address] [place] [address] Immature granulocytes (Bld) [#/Vol] 0.01 x10*3/uL Normal 0.00-0.70 [facility] Comment on above: Performed By: #### 5 7021-8 ####DIANE Nick ([id number])[facility] ([facility])[address] [place] [address] Immature granulocytes/100 WBC (Bld) 0.2 % Normal 0.0-0.9 [facility] Comment on above: Result Comment: Krystle ture Granulocyte Count (IG) includes promyelocytes, myelocytes and metamyelocytes but does not include bands. Percent differential counts (%) should be interpreted in the context of the absolute cell counts (cells/UL). Performed By: #### 5 7021-8 ####DIANE Nick ([id number])[facility] ([facility])[address] [place] [address] Lymphocytes (Bld) [#/Vol] 1.16 x10*3/uL Low 1.20-4. 80 [facility] Comment on above: Performed By: #### 5 7021-8 ####DIANE Nick ([id number])[facility] ([facility])[address] [place] [address] Lymphocytes/100 WBC (Bld) 27.0 % Normal 13.0-44.0 [facility] Comment on above: Performed By: #### 5 7021-8 ####DIANE Nick ([id number])[facility] ([facility])[address] [place] [address] MCH (RBC) [Entitic mass] 29.0 pg Normal 26.0-34.0 [facility] Comment on above: Performed By: #### 5 7021-8 ####DIANE MOCTEZUMA L ([id number])[facility] ([facility])[address] [place] [address] MCHC (RBC) [Mass/Vol] 32.5 g/dL Normal 32.0-36.0 [facility] Comment on above: Performed By: #### 5 7021-8 ####DIANE Nick ([id number])[facility] ([facility])[address] [place] [address] MCV (RBC) [Entitic vol] 89 fL Normal 80-100 [facility] Comment on above: Performed By: #### 5 7021-8 ####DIANE Nick ([id number])[facility] ([facility])[address] [place] [address] Monocytes (Bld) [#/Vol] 0.26 x10*3/uL Normal 0.10-1.00 [facility] Comment on above: Performed By: #### 5 7021-8 ####DIANE Nick ([id number])[facility] ([facility])[address]22 [place] [address] Monocytes/100 WBC (Bld) 6.1 % Normal 2.0-10.0 [facility] Comment on above: Performed By: #### 5 7021-8 ####DIANE MOCTEZUMA L ([id number])[facility] ([facility])[address] [place] [address] Neutrophils (Bld) [#/Vol] 2.72 x10*3/uL Normal 1.20-7. 70 [facility] Comment on above: Result Comment: Perc ent differential counts (%) should be interpreted in the context of the absolute cell counts (cells/uL). Performed By: #### 5 7021-8 ####DIANE Nick ([id number])[facility] ([facility])[address] [place] [address] Neutrophils/100 WBC (Bld) 63.4 % Normal 40.0-80.0 [facility] Comment on above: Performed By: #### 5 7021-8 ####DIANE Nick ([id number])[facility] ([facility])[address] [place] [address] Nucleated RBC/100 WBC (Bld) [Ratio] 0.0 /100 WBCs Normal 0.0-0.0 [facility] Comment on above: Performed By: #### 5 7021-8 ####DIANE Nick ([id number])[facility] ([facility])[address] [place] [address] Platelets (Bld) [#/Vol] 135 x10*3/uL Low 150-450 [facility] Comment on above: Performed By: #### 5 7021-8 ####DIANE Nick ([id number])[facility] ([facility])[address]90 [place] [address] RBC (Bld) [#/Vol] 4.34 x10*6/uL Normal 4.00-5.20 [facility] Comment on above: Performed By: #### 5 7021-8 ####DIANE Nick ([id number])[facility] ([facility])[address] [place] [address] WBC (Bld) [#/Vol] 4.3 x10*3/uL Low 4.4-11.3 [facility] Comment on above: Performed By: #### 5 7021-8 ####DIANE Nick ([id number])[facility] ([facility])[address]43 [place] [address] PET+CT Bone from skull base to mid-thigh W 18F-NaF Stephani 10-26-2024 1. Multiple mildly hypermetabolic soft tissue masses [...] Major M.D. This study was interpreted at [facility], [place], [place]. MACRO: None. Signed by: Luis Manuel Parrish 10/26/2024 2:52 PM Dictation workstation: [id number] [facility]AL Interpreted By: Luis Manuel Koch and Baker Zachary STUDY: NM PET CT SKULL BASE TO MID THIGH; 10/26/2024 12:31 pm INDICATION: Signs/Symptoms:evaluat e for metastatic disease. ,C50.919 Malignant neoplasm of unspecified site of unspecified female breast,Z17.0 Estrogen receptor positive status (ER+),C50.511 Malignant neoplasm of lower-outer quadrant of right female breast,Z17.1 Estrogen receptor negative status (ER-) Patient is a 69-year-old woman with history of right-sided breast cancer which was incidentally found after chest CT heart surgery workup. Also found to have right axillary adenopathy. Biopsy revealed HER2 positive, ER/DC negative breast cancer. Outside PET-CT revealed 2 areas of hypermetabolic activity within the (upper spine), however subsequent MRI revealed likely degenerative disease. Bone scan was definitively negative for bone Mets. Has been undergoing treatment with gem carbo with clinical response and is status post right lumpectomy. Patient now feels as if mass in right breast is larger. Presents for further evaluation. Of note patient underwent recent aortic valve replacement CABG. COMPARISON: None. ACCESSION NUMBER(S): [id number] ORDERING CLINICIAN: MARCELO DAVEY TECHNIQUE: DIVISION OF NUCLEAR MEDICINE POSITRON EMISSION TOMOGRAPHY (PET-CT) The patient received an intravenous dose of 12.2 mCi of Fluorine-18 fluorodeoxyglucose (FDG). Positron emission tomographic (PET) images from mid thigh to skull base were then acquired after a one hour delay. Also acquired was a contemporaneous low dose non-contrast CT scan performed for attenuation correction of PET images and anatomic localization. The PET and CT images were digitally fused for display. All images were acquired on a combined PET-CT scanner unit. Some areas of FDG accumulation may be described in standardized uptake value (SUV) units. CODING: Subsequent Treatment Strategy (PS) CALIBRATION: Dose Ghznkbrny-xp-Hxiy Interval (mins): 63 min Mediastinal bloodpool SUV (normal 1.5-2.5): 1.7 Blood glucose: 115 mg/dL FINDINGS: HEAD AND NECK: No focal FDG avid soft tissue lesion is seen in the neck. There is a mildly hypermetabolic right-sided level 2 cervical lymph node with max SUV of 2.7. Otherwise no FDG avid cervical lymphadenopathy is present. CHEST: No focal FDG avid lesion is seen in the lung parenchyma. Soft tissue nodule adjacent to a biopsy clip noted within the right lateral breast which demonstrates mild hypermetabolic activity (max SUV of 3). There is an additional area of soft tissue thickening adjacent to a biopsy clip within the posterior central right breast max SUV of 1.5. The left breast demonstrates no abnormal hypermetabolic activity. Numerous mildly hypermetabolic right-sided axillary and subpectoral lymph nodes max SUV of 4.7. ABDOMEN AND PELVIS: No FDG avid soft tissue lesion is present in the abdomen and pelvis. No evidence of FDG avid lymphadenopathy. Physiologic radiotracer uptake is present in the liver and spleen with excretion into the bowel loops and the genitourinary tract. MUSCULOSKELETAL: Focal hypermetabolic activity noted within the T3 vertebral body with max SUV of 9. Additional focal hypermetabolic activity noted within the right transverse process of the T5 vertebral body with max SUV of 4.7. Mild hypermetabolic activity noted within the posterior aspect of the left 7th rib with max SUV of 3.2. Mild hypermetabolic activity within the right body and pedicle of the T8 vertebral body with max SUV of 5.4. Additional focal hypermetabolic activity noted within the left lamina of the T12 vertebral body with max SUV of 3.6. Focal hypermetabolic activity noted the left iliac wing with max SUV 3.9. Mild hypermetabolic activity throughout the sternum, likely postsurgical in etiology. MMODAL Luis Manuel Parrish MD - 10/26/2024 Interpreted By: Luis Manuel Parrish and Baker Zachary STUDY: NM PET CT SKULL BASE TO MID THIGH; 10/26/2024 12:31 pm INDICATION: Signs/Symptoms:evaluat e for metastatic disease. ,C50.919 Malignant neoplasm of unspecified site of unspecified female breast,Z17.0 Estrogen receptor positive status (ER+),C50.511 Malignant neoplasm of lower-outer quadrant of right female breast,Z17.1 Estrogen receptor negative status (ER-) Patient is a 69-year-old woman with history of right-sided breast cancer which was incidentally found after chest CT heart surgery workup. Also found to have right axillary adenopathy. Biopsy revealed HER2 positive, ER/DC negative breast cancer. Outside PET-CT revealed 2 areas of hypermetabolic activity within the (upper spine), however subsequent MRI revealed likely degenerative disease. Bone scan was definitively negative for bone Mets. Has been undergoing treatment with gem carbo with clinical response and is status post right lumpectomy. Patient now feels as if mass in right breast is larger. Presents for further evaluation. Of note patient underwent recent aortic valve replacement CABG. COMPARISON: None. ACCESSION NUMBER(S): [id number] ORDERING CLINICIAN: MARCELO DAVEY TECHNIQUE: DIVISION OF NUCLEAR MEDICINE POSITRON EMISSION TOMOGRAPHY (PET-CT) The patient received an intravenous dose of 12.2 mCi of Fluorine-18 fluorodeoxyglucose (FDG). Positron emission tomographic (PET) images from mid thigh to skull base were then acquired after a one hour delay. Also acquired was a contemporaneous low dose non-contrast CT scan performed for attenuation correction of PET images and anatomic localization. The PET and CT images were digitally fused for display. All images were acquired on a combined PET-CT scanner unit. Some areas of FDG accumulation may be described in standardized uptake value (SUV) units. CODING: Subsequent Treatment Strategy (PS) CALIBRATION: Dose Nwxxxgvpq-fs-Nmik Interval (mins): 63 min Mediastinal bloodpool SUV (normal 1.5-2.5): 1.7 Blood glucose: 115 mg/dL FINDINGS: HEAD AND NECK: No focal FDG avid soft tissue lesion is seen in the neck. There is a mildly hypermetabolic right-sided level 2 cervical lymph node with max SUV of 2.7. Otherwise no FDG avid cervical lymphadenopathy is present. CHEST: No focal FDG avid lesion is seen in the lung parenchyma. Soft tissue nodule adjacent to a biopsy clip noted within the right lateral breast which demonstrates mild hypermetabolic activity (max SUV of 3). There is an additional area of soft tissue thickening adjacent to a biopsy clip within the posterior central right breast max SUV of 1.5. The left breast demonstrates no abnormal hypermetabolic activity. Numerous mildly hypermetabolic right-sided axillary and subpectoral lymph nodes max SUV of 4.7. ABDOMEN AND PELVIS: No FDG avid soft tissue lesion is present in the abdomen and pelvis. No evidence of FDG avid lymphadenopathy. Physiologic radiotracer uptake is present in the liver and spleen with excretion into the bowel loops and the genitourinary tract. MUSCULOSKELETAL: Focal hypermetabolic activity noted within the T3 vertebral body with max SUV of 9. Additional focal hypermetabolic activity noted within the right transverse process of the T5 vertebral body with max SUV of 4.7. Mild hypermetabolic activity noted within the posterior aspect of the left 7th rib with max SUV of 3.2. Mild hypermetabolic activity within the right body and pedicle of the T8 vertebral body with max SUV of 5.4. Additional focal hypermetabolic activity noted within the left lamina of the T12 vertebral body with max SUV of 3.6. Focal hypermetabolic activity noted the left iliac wing with max SUV 3.9. Mild hypermetabolic activity throughout the sternum, likely postsurgical in etiology. IMPRESSION: 1. Multiple mildly hypermetabolic soft tissue masses [...] Major M.D. This study was interpreted at [facility], [place], [place]. MACRO: None. Signed by: Luis Manuel Parrish 10/26/2024 2:52 PM Dictation workstation: [id number] [facility] Work Phone: Radiology Study observation (narrative) [facility] Work Phone: PET+CT Bone from skull base to mid-thigh W 18F-NaF IVOrdered By: Luis Manuel Parrish on 10-26-2024 [facility] Work Phone: NM PET CT SKULL BASE TO MID THIGHon 10-12-[address] SKULL BASE TO MID THIGH Normal [facility] Basic metabolic 2000 panelon 10-09-2024 Anion gap [Moles/Vol] 12 mmol/L Normal 10-20 [facility] Comment on above: Performed By: #### 2 4321-2 ####DIANE Nick ([id number])[facility] ([facility])[address]39 [place] [address] Calcium [Mass/Vol] 8.9 mg/dL Normal 8.6-10.6 [facility] Comment on above: Performed By: #### 2 4321-2 ####DIANE Nick ([id number])[facility] ([facility])[address]237 [place] [address] Chloride [Moles/Vol] 103 mmol/L Normal 98-107 [facility] Comment on above: Performed By: #### 2 4321-2 ####DIANE Nick ([id number])[facility] ([facility])[address] [place] [address] CO2 [Moles/Vol] 30 mmol/L Normal 21-32 [facility] Comment on above: Performed By: #### 2 4321-2 ####DIANE Nick ([id number])[facility] ([facility])[address]43 [place] [address] Creatinine [Mass/Vol] 0.83 mg/dL Normal 0.50-1.05 [facility] Comment on above: Performed By: #### 2 4321-2 ####DIANE Nick ([id number])[facility] ([facility])[address]48 [place] [address] Glomerular filtration rate/1.73 sq M.predicted 76 mL/min/1.73m*2 Normal >60 [facility] Comment on above: Result Comment: Calc ulations of estimated GFR are performed using the 2020 CKD-EPI Study Refit equation without the race variable for the IDMS-Traceable creatinine methods.https://jasn.asnjournals.org/content/early 2/ASN.1878344067 Performed By: #### 2 4321-2 ####DIANE Nick ([id number])[facility] ([facility])[address] [place] [address] Glucose [Mass/Vol] 85 mg/dL Normal 74-99 [facility] Comment on above: Performed By: #### 2 4321-2 ####DIANE Nick ([id number])[facility] ([facility])[address] [place] [address] Potassium [Moles/Vol] 3.7 mmol/L Normal 3.5-5.3 [facility] Comment on above: Performed By: #### 2 4321-2 ####DIANE MOCTEZUMA L ([id number])[facility] ([facility])[address] [place] [address] Sodium [Moles/Vol] 141 mmol/L Normal 136-145 [facility] Comment on above: Performed By: #### 2 4321-2 ####DIANE MOCTEZUMA L ([id number])[facility] ([facility])[address]35 [place] [address] Urea nitrogen [Mass/Vol] 11 mg/dL Normal 6-23 [facility] Comment on above: Performed By: #### 2 4321-2 ####DIANE MOCTEZUMA L ([id number])[facility] ([facility])[address] [place] [address] Hepatitis B virus core Abon 10-09-2024 HBV core Ab Ql (S) Non-Reactive Normal Nonreactive [facility] Comment on above: Performed By: #### 1 6933-4 ####DIANE MOCTEZUMA L ([id number])[facility] ([facility])[address] [place] [id number] Hepatitis B virus surface Ab on 10-09-2024 HBV surface Ab Qn (S) 59.8 mIU/mL High <10.0 Un [facility] Comment on above: Result Comment: Inte rpretive Criteria: <10 mIU/mL Nonreactive >=10 mIU/mL ReactiveBiotin interference may cause falsely decreased results. Patients taking a Biotin dose of up to 5 mg/day should refrain from taking Biotin for 24 hours before sample collection. Providers may contact their local laboratory for further information. Performed By: #### 1 6935-9 ####DIANE Nick ([id number])[facility] ([facility])[address] [place] [address] Hepatitis B virus surface Ag on 10-09-2024 HBV surface Ag IA Ql Non-Reactive Normal Nonreactive [facility] Comment on above: Result Comment: Biot in interference may cause falsely decreased results. Patients taking a Biotin dose of up to 5 mg/day should refrain from taking Biotin for 24 hours before sample collection. Providers may contact their local laboratory forfurther information. Performed By: #### 5 196-1 ####DIANE Nick ([id number])[facility] ([facility])[address] [place] [address] ECG 12 Leadon 09-27-2024 Atrial paced rhythm, nonspecific ST-T segment changes. Prolonged QTc (500 ms). Heart rate 60 bpm [facility] Work Phone: [facility] Work Phone: 12 Lead EKGon 09-24-2024 12 Lead EKG [facility] [address] [place] [address] 12 Lead EKG 09/24/24 1551 MR#: [id number] Acct: [id number] Name: ZORA NIXON Rep #: [id number] : 1955 69 From: Allan Rock MD Attending Dr: Status: DEP ER Ordering Dr: Jesus Luu DO Date: 09/24/24 Location: ED Sex: F C Admitted: Test Reason : GENERAL Blood Pressure : */* mmHG Vent. Rate : 60 BPM Atrial Rate : 60 BPM P-R Int : 262 ms QRS Dur : 94 ms QT Int : 526 ms P-R-T Axes : 70 -2 79 degrees QTcB Int : 526 ms Atrial-paced rhythm with prolonged AV conduction Prolonged QT Abnormal ECG Confirmed by NICHOLAS MURILLO, ALLAN ([id number]), technical editor THAI LEE ([id number]) on 09/26/2024 8:04:15 AM Referred By: Confirmed By: ALLAN ROCK MD 09/26/24 0804 Date Allan Rock MD CC: Dr. Daniela Fallon MD; Dr. Jesus Luu, DO Signed Normal [facility] Absolute neutrophil countOrd ered By: Jesus Luu on 09-24-2024 Neutrophils (Bld) [#/Vol] 3.6 10*3/uL 2.0-7.7 [facility] Basic Metabolic Profile (BMP )on 09-24-2024 BUN/CRE 12.5 RATIO Normal 10-20 [facility] Comment on above: Order Comment: 1Y Performed By: #### L 501.4020 #### [facility] [address] [place], [place], [id number] (809 [place],Total 8.9 mg/dL Normal 8.5-10.1 [facility] Comment on above: Order Comment: 1Y Performed By: #### L 501.4020 #### [facility] [address] [place], [address] Chloride [Moles/Vol] 102 mmol/L Normal 98-107 [facility] Comment on above: Order Comment: 1Y Performed By: #### L 501.4020 #### [facility] [address] [place], [address] CO2 [Moles/Vol] 32.0 mmol/L Normal 21.0-32.0 [facility] Comment on above: Order Comment: 1Y Performed By: #### L 501.4020 #### [facility] [address] [place], [address] Creatinine [Mass/Vol] 0.96 mg/dL Normal 0.55-1.02 [facility] Comment on above: Order Comment: 1Y Result Comment: The validity of the calculated GFR GFRAA in patients over 70 years has not been determined. Clinical correlation is essential. Performed By: #### L 501.4020 #### [facility] [address] [place], [address] ECRCL 45.54 ml/min Normal [facility] Comment on above: Order Comment: 1Y Performed By: #### L 501.4020 #### [facility] [address] [place], [address] EST GFR - AA 74 mL/min Normal >60 [facility] Comment on above: Order Comment: 1Y Result Comment: Afri can Maltese GFR Calc Performed By: #### L 501.4020 #### [facility] [address] [place], [address] GAP 5 Normal 5-15 [facility] Comment on above: Order Comment: 1Y Performed By: #### L 501.4020 #### [facility] [address] [place], [address] GFR/1.73 sq M.predicted among non-blacks MDRD (S/P/Bld) [Vol rate/Area] 61 mL/min/{1.73_m2} Normal >60 [facility] Comment on above: Order Comment: 1Y Result Comment: Non- GFR Calc Performed By: #### L 501.4020 #### [facility] [address] [place], [address] Glucose [Mass/Vol] 105 mg/dL Normal 74-106 [facility] Comment on above: Order Comment: 1Y Result Comment: Fast ing Glucose result from 100 to 125 mg/dL suggests IMPAIRED HOMEOSTASIS per A.D.A. criteria. Performed By: #### L 501.4020 #### [facility] [address] [place], [address] Potassium [Moles/Vol] 3.8 mmol/L Normal 3.5-5.1 [facility] Comment on above: Order Comment: 1Y Performed By: #### L 501.4020 #### [facility] [address] [place], [address] Sodium [Moles/Vol] 139 mmol/L Normal 136-145 [facility] Comment on above: Order Comment: 1Y Performed By: #### L 501.4020 #### [facility] [address] [place], [address] Urea nitrogen [Mass/Vol] 12 mg/dL Normal 7-18 [facility] Comment on above: Order Comment: 1Y Performed By: #### L 501.4020 #### [facility] [address] [place], [address] Basophil percentageOrdered B y: Jesus Luu on 09-24-2024 Basophils/100 WBC (Bld) 0.4 % 0-1 [facility] Blood urea nitrogen (BUN)/cr eatinine ratioOrdered By: Jesus Luu on 09-24-2024 Urea nitrogen/Creatinine [Mass ratio] 12.5 mg/mg 10-20 [facility] CBC W/Diff, Automatedon 12-0 Absolute Lymph 1.23 X10 3/uL Normal 0.83-4.51 [facility] Comment on above: Performed By: #### L 501.4020 #### [facility] [address] [place], [address] Absolute Neut 3.6 X10 3/uL Normal 2.0-7.7 [facility] Comment on above: Performed By: #### L 501.4020 #### [facility] [address] [place], [address] Basophils/100 WBC (Bld) 0.4 % Normal 0-1 [facility] Comment on above: Performed By: #### L 501.4020 #### [facility] [address] [place], [address] Eosinophils/100 WBC (Bld) 2.6 % Normal 0-5 [facility] Comment on above: Performed By: #### L 501.4020 #### [facility] [address] [place], [address] Erythrocyte distribution width (RBC) [Ratio] 13.2 % Normal 11.6-14.6 [facility] Comment on above: Performed By: #### L 501.4020 #### [facility] [address] [place], [address] Hematocrit (Bld) [Volume fraction] 35.6 % Low 37-47 [facility] Comment on above: Performed By: #### L 501.4020 #### [facility] [address] [place], [address] Hemoglobin (Bld) [Mass/Vol] 11.7 g/dL Low 12.0-15.0 [facility] Comment on above: Performed By: #### L 501.4020 #### [facility] [address] [place], [address] IG% 0.400 Normal 0.0-0.9 [facility] Comment on above: Result Comment: IG% - Immature Granulocytes (promyelocytes, myelocytes and metamyelocytes) > 1% indicates that a LEFT SHIFT is Present. Performed By: #### L 501.4020 #### [facility] [address] [place], [address] Lymphocytes/100 WBC (Bld) 23.1 % Normal 19-41 [facility] Comment on above: Performed By: #### L 501.4020 #### [facility] [address] [place], [place], [address] MCH (RBC) [Entitic mass] 30.2 pg Normal 27.0-32.0 [facility] Comment on above: Performed By: #### L 501.4020 #### [facility] [address] [place], [address] MCHC (RBC) [Mass/Vol] 32.9 g/dL Normal 32-36 [facility] Comment on above: Performed By: #### L 501.4020 #### [facility] [address] [place], [address] MCV (RBC) [Entitic vol] 92.0 fL Normal 81-99 [facility] Comment on above: Performed By: #### L 501.4020 #### [facility] [address] [place], [address] Monocytes/100 WBC (Bld) 6.2 % Normal 0-10 [facility] Comment on above: Performed By: #### L 501.4020 #### [facility] [address] [place], [address] Neutrophils/100 WBC (Bld) 67.3 % Normal 47-70 [facility] Comment on above: Performed By: #### L 501.4020 #### [facility] [address] [place], [address] Nucleated RBC (Bld) [#/Vol] 0 10*3/uL Normal 0-5 [facility] Comment on above: Performed By: #### L 501.4020 #### [facility] [address] [place], [address] Platelet mean volume (Bld) [Entitic vol] 9.1 fL Normal 6.2-12.0 [facility] Comment on above: Performed By: #### L 501.4020 #### [facility] [address] [place], [address] Platelets (Bld) [#/Vol] 164 10*3/uL Normal 150-450 [facility] Comment on above: Performed By: #### L 501.4020 #### [facility] [address] [place], [address] RBC (Bld) [#/Vol] 3.87 10*6/uL Low 4.2-5.4 [facility] Comment on above: Performed By: #### L 501.4020 #### [facility] [address] [place], [address] RDW SD 44.9 fl High 35.1-43.9 [facility] Comment on above: Performed By: #### L 501.4020 #### [facility] [address] [place], [address] WBC (Bld) [#/Vol] 5.3 10*3/uL Normal 4.4-11.0 [facility] Comment on above: Performed By: #### L 501.4020 #### [facility] [address] [place], [address] CTA Chest W/WO Contraston CTA Chest W/WO Contrast [facility] Imaging Services [address] [place] [address] CTA Chest W/WO Contrast MR#: [id number] Acct: [id number] Name: ZORA NIXON Duane Rep #: [id number] : 1955 F 69 From: King delgado DO PCP: Dr. Daniela Fallon MD Status: [facility] ER Study: CTA Chest W/WO Contrast Date of Exam: 09/24/24 Exam# [id number] Ordering Dr: Jesus Luu DO [id number] EXAM: CT ANGIOGRAPHY CHEST WITHOUT AND WITH INTRAVENOUS CONTRAST CLINICAL INDICATION: Chest pain TECHNIQUE: Helically acquired angiography images were obtained of the chest without and with intravenous contrast. This CT exam was performed using one or more of the following dose reduction techniques: automated exposure control, adjustment of the mA and/or kV according to patient size, and/or use of iterative reconstruction technique. MIP reconstructed images were created and reviewed. CONTRAST: IV 100mL [id number] COMPARISON: PET/CT, 01/11/2024. FINDINGS: PULMONARY ARTERIES: No significant abnormality. Normal in caliber. No evidence of pulmonary embolism. AORTA: Atherosclerosis of the aorta and its branch vessels. Luminal irregularity without aneurysm or dissection. GREAT VESSELS OF AORTIC ARCH: No significant abnormality. Normal in caliber. No evidence of dissection. LUNGS AND PLEURAL SPACES: Right lower lobe atelectasis or pneumonia and trace left lower lobe airspace disease which may also be atelectasis or pneumonia. Likely scarring in the right anterior lung. No mass. No pleural effusion or thickening. HEART: Coronary artery calcifications. Status post CABG. Aortic valve replacement/repair. Heart size is normal. No pericardial effusion. MEDIASTINUM: No significant abnormality. No mediastinal or hilar adenopathy. Esophagus is unremarkable. No hiatal hernia. THYROID: No significant abnormality. No thyroid lesions. BONES/JOINTS: Median sternotomy. No suspicious lytic or blastic abnormality. SOFT TISSUES: There is a mass in the deep aspect of the right breast with associated clips or calcifications perhaps related to prior biopsy. LYMPH NODES: Asymmetrically enlarged right axillary lymphadenopathy. GALLBLADDER AND BILE DUCTS: Cholelithiasis. No secondary signs of acute cholecystitis. TUBES, LINES AND DEVICES: Left-sided cardiac device. Right-sided chest port. CT/CTA Chest W/WO Contrast IMPRESSION: 1. No evidence of acute pulmonary artery embolus. 2. There is a mass in the deep aspect of the right breast with associated clips or calcifications perhaps related to prior biopsy. Right axillary lymphadenopathy. Findings correlate with prior PET/CT. 3. Right lower lobe atelectasis or pneumonia and trace left lower lobe airspace disease which may also be atelectasis or pneumonia. 4. Cholelithiasis. No secondary signs of acute cholecystitis. Electronically Signed: King Serrano DO at 16:53 EST , CC: Dr. Daniela Fallon MD; Dr. Jesus Luu DO Pick Up: Signed Normal [facility] Carbon dioxide measurementOr dered By: Jesus Luu on 09-24-2024 CO2 [Moles/Vol] 32.0 mmol/L 21.0-32.0 [facility] Chloride measurementOrdered By: Jesus Luu on 09-24-2024 Chloride [Moles/Vol] 102 mmol/L 98-107 [facility] Emergency Department Summary on 09-24-2024 Emergency Department Summary [facility] Medical Records Department [address] [place] [address] Emergency Department Summary 09/24/24 MR#: [id number] Acct: [id number] Name: ZORA NIXON Rep #: [id number] : 1955 69 From: Jesus Luu DO PCP: Dr. Daniela Fallon MD Status:DEP ER Location: ED HPI History of Present Illness Chief Complaint: Upper Extremity Injury Informant: patient Onset/Context/Timing Onset: Today and Hours (1) Activity at onset: sudden Timing: Continuous Quality: Positive for Stabbing Location: Left Chest Worsened By: Nothing Relieved By: - (Palpation) Associated Symptoms: Positive for Lightheadedness; Negative for Nausea, Vomiting, Diaphoresis, Dyspnea, Cough, Fever, Acid Reflux or Palpitations Narrative Narrative: Patient presents with left chest pain that began approximately 1 hour prior to arrival. Patient states the pain is constant. Patient describes the pain as stabbing. Patient states the pain is ov er the left side of her chest. Patient states it radiates into her left axilla. Patient states nothing makes it worse. Patient states it feels better with palpation. Patient denies any paresthesias or weakness. Patient states she had recent bypass and valve replacement 2 months ago. CVD Risk Factors: Positive for Hypertension, Diabetes, Hypercholesterolemia and Family History 1' PE Risk Factors: Positive for Recent Travel/Surgery and Cancer; Negative for Recent Immobilization or Prior DVT or PE [facility] Medical History Nontraumatic psoas hematoma Hyperbilirubinemia Severe anemia Non-ST elevation KS (NSTEMI) Rhabdomyolysis Thrombocytopenia CAD (coronary artery disease) Chronic pain Atrial fibrillation ICD (implantable cardioverter-defibrill ator) in place Urinary urgency Metastasis to bone [...] (gastroesophageal reflux disease) Hyperlipemia Hypertension Home Medications ???Medication ???Instructions ???Recorded ???Last Taken ???Type aspirin 81 mg chewable tablet 81 mg PO DAILY 11/23/17 06/03/24 History melatonin 10 mg capsule 10 mg PO HS PRN sleep 11/23/17 06/03/24 History calcium carbonate 600 mg PO BID 06/30/18 06/03/24 History amlodipine 10 mg tablet 10 mg PO QDAY #90 tabs 05/11/24 06/03/24 Rx cyclobenzaprine 10 mg tablet 10 mg PO BID PRN muscle spasm #90 05/11/24 06/03/24 Rx tabs lisinopril 40 mg tablet 40 mg PO QDAY #90 tabs 05/11/24 06/03/24 Rx nitroglycerin 0.4 mg sublingual See Rx Instructions .Route 05/11/24 Unknown Rx tablet .COMPLEX #75 tabs pantoprazole 40 mg tablet,delayed 40 mg PO QDAY #90 tabs 05/11/24 06/03/24 Rx release rosuvastatin 20 mg tablet 20 mg PO DAILY #90 tabs 05/11/24 06/03/24 Rx sertraline 100 mg tablet 100 mg PO QDAY #90 tabs 05/11/24 06/03/24 Rx sotalol 120 mg tablet (Betapace) 120 mg PO Q12H #90 tabs 05/11/24 06/03/24 Rx trazodone 100 mg tablet 100 mg PO QHS PRN insomnia #90 tabs 05/11/24 06/03/24 Rx clopidogrel 75 mg tablet 75 mg PO DAILY 06/04/24 06/03/24 History olanzapine 2.5 mg tablet 2.5 mg PO QHS 06/04/24 06/03/24 History handicap placard #1 ea 09/01/24 Unknown Rx amoxicillin 875 mg-potassium 875 mg PO Q12H #20 TABLETS 09/24/24 Unknown Rx clavulanate 125 mg tablet Allergy/AdvReac Type Severity Reaction Status Date / Time No Known Allergies Allergy Verified 09/01/24 09:42 Family History Mother CVA (cerebral vascular accident) Breast cancer, Onset Age: 35 Father Heart disease Sister Breast cancer, Onset Age: 50 Heart disease Hypertension Cancer lung Surgical History History of coronary artery bypass graft x 3 History of hysterectomy Cardiac defibrillator in place 4 stents cardiac rythem pacemaker triple bypass, valve replacement, nad aneurysm repair History of tonsillectomy Social History Smoking Status: Former smoker Tobacco: How many years used: 20 how long ago did patient quit smokin alcohol intake: never substance use type: does not use what type of physical activity do you participate in: none ROS ROS ED Constitutional Constitutional ED: Denies chills or fever(s) Eyes Eyes: Denies blurry vision or change in vision ENT ENT ED: Denies rhinorrhe (more content not included)... Normal [facility] Eosinophil percentageOrdered By: Jesus Luu on 09-24-2024 Eosinophils/100 WBC (Bld) 2.6 % 0-5 [facility] Erythrocyte distribution wid th ratioOrdered By: Jesus Luu on 09-24-2024 Erythrocyte distribution width (RBC) [Ratio] 13.2 % 11.6-14.6 [facility] Erythrocyte distribution wid th standard deviationOrdered By: Jesus Luu on 09-24-2024 Erythrocyte distribution width (RBC) [Entitic vol] 44.9 fL High 35.1-43.9 [facility] Estimated glomerular filtrat ion rate (GFR) AmericanOrdered By: Jesus Luu on 09-24-2024 Estimated GFR (MDRD) Amer 74 mL/min >60 [facility] Comment on above: GFR Calc Estimation of creatinine rhiannon aranceOrdered By: Jesus Luu on 09-24-2024 Estimated Creatinine Clearance Calc 45.54 ml/min [facility] Glomerular filtration rate ( GFR) estimationOrdered By: Jesus Luu on 09-24-2024 Estimated GFR (MDRD) Non-Af Amer 61 mL/min >60 [facility] Comment on above: Non- GFR Calc Glucose measurementOrdered B y: Jesus Luu on 09-24-2024 Glucose [Mass/Vol] 105 mg/dL 74-106 [facility] Comment on above: Fasting Glucose resu lt from 100 to 125 mg/dL suggests IMPAIRED HOMEOSTASIS per A.D.A. criteria. Hematocrit Auto (Bld) [Volum e fraction]Ordered By: Jesus Luu on 09-24-2024 Hematocrit (Bld) [Volume fraction] 35.6 % Low 37-47 [facility] Hemoglobin measurementOrdere d By: Jesus Luu on 09-24-2024 Hemoglobin (Bld) [Mass/Vol] 11.7 g/dL Low 12.0-15.0 [facility] Immature granulocytes/100 WB C Auto (Bld)Ordered By: Jesus Luu on 09-24-2024 Immature granulocytes/100 WBC (Bld) 0.400 % 0.0-0.9 [facility] Comment on above: IG% - Immature Granu locytes (promyelocytes, myelocytes and metamyelocytes) > 1% indicates that a LEFT SHIFT is Present. International normalized rat io (INR) calculationOrdered By: Jesus Luu on 09-24-2024 INR Coag (Bld) [Relative time] 1.0 {INR} [facility] L501.4020on 09-24-2024 TROPONIN-I HS 107 pg/mL High 3.0-54.0 [facility] Comment on above: Result Comment: Pleduane gonzalez Note: New Test Units and Gender Specific Reference Ranges. For more information see Policy Stat Procedure [facility] High Sensitivity Troponin (TNIH) and attachments. Performed By: #### L 501.4020 #### [facility] [place], [address] L501.5425on 09-24-2024 TROPONIN-I HS 113 pg/mL High 3.0-54.0 [facility] Comment on above: Order Comment: 1Y Result Comment: Timoteo gonzalez Note: New Test Units and Gender Specific Reference Ranges. For more information see Policy Stat Procedure [place] [facility] High Sensitivity Troponin (TNIH) and attachments. Performed By: #### L 501.4020 #### [facility] [address] [place], [place], [address] Lymphocytes Auto (Unsp spec) [#/Vol]Ordered By: Jesus Luu on 09-24-2024 Lymphocytes (Bld) [#/Vol] 1.23 10*3/uL 0.83-4.5 1 [facility] Lymphocytes/100 WBC Auto (Un sp spec)Ordered By: Jesus Luu on 09-24-2024 Lymphocytes/100 WBC (Bld) 23.1 % 19-41 [facility] MCV (mean corpuscular volume ) determinationOrdered By: Jesus Luu on 09-24-2024 MCV (RBC) [Entitic vol] 92.0 fL 81-99 [facility] Mean corpuscular hemoglobin (MCH) determinationOrdered By: Jesus Luu on 09-24-2024 MCH (RBC) [Entitic mass] 30.2 pg 27.0-32.0 [facility] Mean corpuscular hemoglobin concentration (MCHC) determinationOrdered By: Jesus Luu on 09-24-2024 MCHC (RBC) [Mass/Vol] 32.9 g/dL 32-36 [facility] Mean platelet volume determi nationOrdered By: Jesus Luu on 09-24-2024 Platelet mean volume (Bld) [Entitic vol] 9.1 fL 6.2-12.0 [facility] Monocyte percentageOrdered B y: Jesus Luu on 09-24-2024 Monocytes/100 WBC (Bld) 6.2 % 0-10 [facility] Neutrophil percentageOrdered By: Jesus Luu on 09-24-2024 Neutrophils/100 WBC (Bld) 67.3 % 47-70 [facility] Nucleated red blood cell per centageOrdered By: Jesus Luu on 09-24-2024 Nucleated RBC/100 WBC (Bld) [Ratio] 0 % 0-5 [facility] Partial Thromboplast Timeon 09-24-2024 aPTT Coag (Bld) [Time] 26.4 s Normal 24.1-36.2 [facility] Comment on above: Performed By: #### L 300.3900, L300.4310 #### [facility] [address] [place], [address] Platelet countOrdered By: Godfrey Luu on 09-24-2024 Platelets (Bld) [#/Vol] 164 10*3/uL 150-450 [facility] Potassium measurementOrdered By: Jesus Luu on 09-24-2024 Potassium [Moles/Vol] 3.8 mmol/L 3.5-5.1 [facility] Prothrombin Time w/INRon INR Coag (PPP) [Relative time] 1.0 {INR} Normal [facility] Comment on above: Performed By: #### L 300.3900, L300.4310 #### [facility] [address] [place], [address] Prothrombin timeOrdered By: Jesus Luu on 09-24-2024 PT Coag (PPP) [Time] 13.1 s Normal 11.7-14.9 [facility] Comment on above: Performed By: #### L 300.3900, L300.4310 #### [facility] [address] [place], [address] RBC Auto (Bld) [#/Vol]Ordere d By: Jesus Luu on 09-24-2024 RBC (Bld) [#/Vol] 3.87 10*6/uL Low 4.2-5.4 [facility] Serum anion gap measurementO rdered By: Jesus Luu on 09-24-2024 Anion gap [Moles/Vol] 5 mmol/L 5-15 [facility] Serum or plasma calcium robert urement (mass/volume)Ordered By: Jesus Luu on 09-24-2024 Calcium [Mass/Vol] 8.9 mg/dL 8.5-10.1 [facility] Serum or plasma creatinine m easurement (mass/volume)Ordered By: Jesus Luu on 09-24-2024 Creatinine [Mass/Vol] 0.96 mg/dL 0.55-1.02 [facility] Comment on above: The validity of the calculated GFR & GFRAA in patients over 70 years has not been determined. Clinical correlation is essential. Serum or plasma urea nitroge n measurement (mass/volume)Ordered By: Jesus Luu on 09-24-2024 Urea nitrogen [Mass/Vol] 12 mg/dL 7-18 [facility] Sodium levelOrdered By: Jesus Luu on 09-24-2024 Sodium [Moles/Vol] 139 mmol/L 136-145 [facility] Troponin IOrdered By: Jesus albert on 09-24-2024 Troponin I High Sensitivity 107 pg/mL High 3.0-54.0 [facility] Comment on above: Please Note: New Lila t Units and Gender Specific Reference Ranges. For more information see Policy Stat Procedure [facility] High Sensitivity Troponin (TNIH) and attachments. White blood cell (WBC) count Ordered By: Jesus Luu on 09-24-2024 WBC (Bld) [#/Vol] 5.3 10*3/uL 4.4-11.0 [facility] aPTT Coag (PPP) [Time]Ordere d By: Jesus Luu on 09-24-2024 aPTT Coag (Bld) [Time] 26.4 s 24.1-36.2 [facility] BI MAMMO RIGHT DIAGNOSTIC TO MOSYNTHESISon 09-20-2024 BI MAMMO RIGHT DIAGNOSTIC TOMOSYNTHESIS Abnormal [facility] BI US BREAST LIMITED RIGHTon 09-20-2024 BI US BREAST LIMITED RIGHT Abnormal [facility] DBT Breast - right diagnosti con 09-20-2024 Radiology Study observation (narrative) [facility] Work Phone: No Panel InformationOrdered By: Dilma Arce on 09-20-2024 Interpretation and review of laboratory results Abnormal [facility] Work Phone: [facility] Work Phone: No Panel Informationon 09-20 Multifocal breast cancer with either interval decrease in size or stability compared with pre biopsy imaging 02/09/2024. Mag seed placement has already been performed. BI-RADS CATEGORY: BI-RADS CATEGORY: 6 Known Biopsy-Proven Malignancy. Recommendation: Immediate Follow-up. Recommended Date: Immediate. Laterality: Right. For any future breast imaging appointments, please call [phone] ([phone]). MACRO: None Signed by: Dilma Arce 09/20/2024 2:47 PM Dictation workstation: [id number] [facility] Interpreted By: Dilma Arce, STUDY: BI MAMMO RIGHT DIAGNOSTIC TOMOSYNTHESIS; BI US BREAST LIMITED RIGHT; 09/20/2024 1:50 pm; 09/20/2024 2:16 pm ACCESSION NUMBER(S): [id number]; [id number] ORDERING CLINICIAN: MARCELO DAVEY INDICATION: Multifocal right [...] breast and right axilla by a registered life science technical officer with elastography. The biopsy-proven malignancy at the [...] skin surface consistent with post biopsy change. [facility] Dilma Arce MD - 09/20/2024 Interpreted By: Dilma Arce, STUDY: BI MAMMO RIGHT DIAGNOSTIC TOMOSYNTHESIS; BI US BREAST LIMITED RIGHT; 09/20/2024 1:50 pm; 09/20/2024 2:16 pm ACCESSION NUMBER(S): [id number]; [id number] ORDERING CLINICIAN: MARCELO DAVEY INDICATION: Multifocal right [...] breast and right axilla by a registered life science technical officer with elastography. The biopsy-proven malignancy at the [...] any future breast imaging appointments, please call [phone] ([phone]). MACRO: None Signed by: Dilma Arce 09/20/2024 2:47 PM Dictation workstation: [id number] [facility] Work Phone: US Breast - right limitedon 09-20-2024 Radiology Study observation (narrative) [facility] Work Phone: TRANSTHORACIC ECHO (TTE) COM PLETEon 09-19-2024 TRANSTHORACIC ECHO (TTE) COMPLETE Normal [facility] Internal Medicine Office Vis iton 09-01-2024 Internal Medicine Office Visit [facility] [address] [place] [address] [place] [address] OFFICE VISIT Date of Service: 09/01/24 MR#: [id number] Acct: [id number] Name: ZORA NIXON Rep #: [id number] : 1955 Provider: VANNESSA Ward Age/Sex: 69/F [place] [facility] [place]: Signed Intake Vital Signs 06/05/24 12:30 09/01/24 09:48 Height 5 ft 5 ft Weight: 140 lb 2 oz BMI 27.3 BP 120/84 H Blood Pressure Location Lt brachial Position Sitting Respiration 16 Pulse 73 Pulse Source Monitor Temp 97.6 F L Temp Source Temporal Pulse Oximetry (%) 97 Oxygen Delivery Method room air Intake Visit Reasons: acute - fu from heart surgery Chief Complaint: heart surgery f/u S[place] Feeder Required: No Accompanied by: Self Is patient in pain?: No Allergies No Known Allergies Allergy (Verified 09/01/24 09:42) Medications ???Medication ???Instructions ???Recorded ???Confirmed ???Type aspirin 81 mg chewable tablet 81 mg PO DAILY 11/23/17 09/01/24 History melatonin 10 mg capsule 10 mg PO HS PRN sleep 11/23/17 09/01/24 History calcium carbonate 600 mg PO BID 06/30/18 09/01/24 History amlodipine 10 mg tablet 10 mg PO QDAY #90 tabs 05/11/24 09/01/24 Rx cyclobenzaprine 10 mg tablet 10 mg PO BID PRN muscle spasm #90 05/11/24 09/01/24 Rx tabs lisinopril 40 mg tablet 40 mg PO QDAY #90 tabs 05/11/24 09/01/24 Rx nitroglycerin 0.4 mg sublingual See Rx Instructions .Route 05/11/24 09/01/24 Rx tablet .COMPLEX #75 tabs pantoprazole 40 mg tablet,delayed 40 mg PO QDAY #90 tabs 05/11/24 09/01/24 Rx release rosuvastatin 20 mg tablet 20 mg PO DAILY #90 tabs 05/11/24 09/01/24 Rx sertraline 100 mg tablet 100 mg PO QDAY #90 tabs 05/11/24 09/01/24 Rx sotalol 120 mg tablet (Betapace) 120 mg PO Q12H #90 tabs 05/11/24 09/01/24 Rx trazodone 100 mg tablet 100 mg PO QHS PRN insomnia #90 tabs 05/11/24 09/01/24 Rx clopidogrel 75 mg tablet 75 mg PO DAILY 06/04/24 09/01/24 History olanzapine 2.5 mg tablet 2.5 mg PO QHS 06/04/24 09/01/24 History handicap placard #1 ea 09/01/24 09/01/24 Rx Have you fallen in the past year?: No PFSH Medical History Nontraumatic psoas hematoma Hyperbilirubinemia Severe anemia Non-ST elevation [place] (NSTEMI) Rhabdomyolysis Thrombocytopenia CAD (coronary artery disease) Chronic pain Atrial fibrillation ICD (implantable cardioverter-defibrill ator) in place Urinary urgency Metastasis to bone [...] (gastroesophageal reflux disease) Hyperlipemia Hypertension Surgical History (Updated 09/01/24 @ 10:24 by Aaron HURD, VANNESSA) History of coronary artery bypass graft x 3 History of hysterectomy Cardiac defibrillator in place 4 stents cardiac rythem pacemaker triple bypass, valve replacement, nad aneurysm repair History of tonsillectomy Family History Mother CVA (cerebral vascular accident) Breast cancer, Onset Age: 35 Father Heart disease Sister Breast cancer, Onset Age: 50 Heart disease Hypertension Cancer lung Social History Smoking Status: Former smoker Tobacco: How many years used: 20 how long ago did patient quit smokin alcohol intake: never substance use type: does not use what type of physical activity do you participate in: none HPI HPI Chief Complaint: heart surgery f/u Details: ZORA NIXON, is a 69 F who presents to the office today for f/u after having open heart surgery one month. Patient's surgery took place at [facility] where she had 1 vessel bypass, aneurysm repair, and valve replacement. This is her second open heart surgery. Patient sees Dr. Fernandez at [facility] and has f/u appt with him scheduled for 2 weeks. She has f/u with her surgeon next week and then has another f/u there in one month. Patient also sees a cardiology-oncologist at [facility] and has f/u with him next month. Patient also sees oncology at [facility] for breast cancer. She was on chemotherapy at the same time they stopped this in order to allow her cell counts to rise so she could have the open heart surgery. She is set to see them next month to discuss going back on Overall patient states that she is feeling pretty good being able to complete all of her ADLs on her own. She co (more content not included)... Normal [facility] CBC panel Auto (Bld)on 08-09 Erythrocyte distribution width (RBC) [Ratio] 13.5 % 11.5 - 14.5 % [facility] Hematocrit (Bld) [Volume fraction] 28.8 % Low 36.0 - 46.0 % [facility] Hemoglobin (Bld) [Mass/Vol] 9.8 g/dL Low 12.0 - 16.0 g/dL [facility] Interpretation and review of laboratory results Abnormal [facility] MCH (RBC) [Entitic mass] 31.3 pg 26. 0 - 34.0 pg [facility] MCHC (RBC) [Mass/Vol] 34 g/dL 32.0 - 36.0 g/dL [facility] MCV (RBC) [Entitic vol] 92 fL 80 - 100 fL [facility] Nucleated RBC/100 WBC (Bld) [Ratio] 0 % [facility] Platelets (Bld) [#/Vol] 140 10*3/uL Low [facility] RBC (Bld) [#/Vol] 3.13 10*6/uL [facility] WBC (Bld) [#/Vol] 7.4 10*3/uL [facility] Magnesiumon 08-09-2024 Magnesium [Mass/Vol] 2.23 mg/dL 1.60 - 2.40 mg/dL [facility] Magnesium [Mass/Vol]on 08-09 Interpretation and review of laboratory results Normal [facility] No Panel Informationon 08-09 [facility] Renal function 2000 panelon 08-09-2024 Albumin BCP dye [Mass/Vol] 3.8 g/dL 3.4 - 5.0 g/dL [facility] Anion gap [Moles/Vol] 16 mmol/L 10 - 2 0 mmol/L [facility] Calcium [Mass/Vol] 9 mg/dL 8.6 - 10. 6 mg/dL [facility] Chloride [Moles/Vol] 92 mmol/L Low 98 - 10 7 mmol/L [facility] CO2 [Moles/Vol] 30 mmol/L 21 - 32 mmol/L [facility] Creatinine [Mass/Vol] 0.65 mg/dL 0.50 - 1.05 mg/dL [facility] eGFR - PINF [facility] Glucose [Mass/Vol] 76 mg/dL 74 - 99 mg/dL [facility] Interpretation and review of laboratory results Abnormal [facility] Phosphate [Mass/Vol] 5.7 mg/dL High 2.5 - 4 .9 mg/dL [facility] Potassium [Moles/Vol] 4.2 mmol/L 3.5 - 5.3 mmol/L [facility] Sodium [Moles/Vol] 134 mmol/L Low 136 - 145 mmol/L [facility] Urea nitrogen [Mass/Vol] 19 mg/dL 6 - 23 mg/d L [facility] CBC panel Auto (Bld)on 08-08 Erythrocyte distribution width (RBC) [Ratio] 13.5 % 11.5 - 14.5 % [facility] Hematocrit (Bld) [Volume fraction] 30.2 % Low 36.0 - 46.0 % [facility] Hemoglobin (Bld) [Mass/Vol] 10.1 g/dL Low 12.0 - 16.0 g/dL [facility] Interpretation and review of laboratory results Abnormal [facility] MCH (RBC) [Entitic mass] 32.2 pg 26. 0 - 34.0 pg [facility] MCHC (RBC) [Mass/Vol] 33.4 g/dL 32.0 - 36.0 g/dL [facility] MCV (RBC) [Entitic vol] 96 fL 80 - 100 fL [facility] Nucleated RBC/100 WBC (Bld) [Ratio] 0 % [facility] Platelets (Bld) [#/Vol] 128 10*3/uL Low [facility] RBC (Bld) [#/Vol] 3.14 10*6/uL [facility] WBC (Bld) [#/Vol] 8 10*3/uL [facility] Glucose Test strip manual (B ld) [Mass/Vol]on 08-08-2024 Glucose [Mass/Vol] 137 mg/dL High 74 - 99 mg/dL [facility] Interpretation and review of laboratory results Abnormal [facility] Glucose [Mass/Vol] 142 mg/dL High 74 - 99 mg/dL [facility] Interpretation and review of laboratory results Abnormal [facility] Glucose [Mass/Vol] 94 mg/dL 74 - 99 mg/dL [facility] Interpretation and review of laboratory results Normal [facility] Glucose [Mass/Vol] 103 mg/dL High 74 - 99 mg/dL [facility] Interpretation and review of laboratory results Abnormal [facility] Glucose [Mass/Vol] 145 mg/dL High 74 - 99 mg/dL [facility] Interpretation and review of laboratory results Abnormal [facility] Glucose [Mass/Vol] 147 mg/dL High 74 - 99 mg/dL [facility] Interpretation and review of laboratory results Abnormal [facility] Glucose [Mass/Vol] 121 mg/dL High 74 - 99 mg/dL [facility] Interpretation and review of laboratory results Abnormal [facility] Glucose [Mass/Vol] 134 mg/dL High 74 - 99 mg/dL [facility] Interpretation and review of laboratory results Abnormal [facility] Magnesiumon 08-08-2024 Magnesium [Mass/Vol] 2.22 mg/dL 1.60 - 2.40 mg/dL [facility] Magnesium [Mass/Vol]on 08-08 Interpretation and review of laboratory results Normal [facility] No Panel Informationon 08-08 [facility] Renal function 2000 panelon 08-08-2024 Albumin BCP dye [Mass/Vol] 4.2 g/dL 3.4 - 5.0 g/dL [facility] Anion gap [Moles/Vol] 15 mmol/L 10 - 2 0 mmol/L [facility] Calcium [Mass/Vol] 9.4 mg/dL 8.6 - 10. 6 mg/dL [facility] Chloride [Moles/Vol] 91 mmol/L Low 98 - 10 7 mmol/L [facility] CO2 [Moles/Vol] 32 mmol/L 21 - 32 mmol/L [facility] Creatinine [Mass/Vol] 0.67 mg/dL 0.50 - 1.05 mg/dL [facility] eGFR - PINF [facility] Glucose [Mass/Vol] 110 mg/dL High 74 - 99 mg/dL [facility] Interpretation and review of laboratory results Abnormal [facility] Phosphate [Mass/Vol] 5.6 mg/dL High 2.5 - 4 .9 mg/dL [facility] Potassium [Moles/Vol] 4.3 mmol/L 3.5 - 5.3 mmol/L [facility] Sodium [Moles/Vol] 134 mmol/L Low 136 - 145 mmol/L [facility] Urea nitrogen [Mass/Vol] 18 mg/dL 6 - 23 mg/d L [facility] Albumin BCP dye [Mass/Vol] 4.1 g/dL 3.4 - 5.0 g/dL [facility] Anion gap [Moles/Vol] 15 mmol/L 10 - 2 0 mmol/L [facility] Calcium [Mass/Vol] 9.3 mg/dL 8.6 - 10. 6 mg/dL [facility] Chloride [Moles/Vol] 94 mmol/L Low 98 - 10 7 mmol/L [facility] CO2 [Moles/Vol] 29 mmol/L 21 - 32 mmol/L [facility] Creatinine [Mass/Vol] 0.62 mg/dL 0.50 - 1.05 mg/dL [facility] eGFR - PINF [facility] Glucose [Mass/Vol] 100 mg/dL High 74 - 99 mg/dL [facility] Interpretation and review of laboratory results Abnormal [facility] Phosphate [Mass/Vol] 5.3 mg/dL High 2.5 - 4 .9 mg/dL [facility] Potassium [Moles/Vol] 5.3 mmol/L 3.5 - 5.3 mmol/L [facility] Sodium [Moles/Vol] 133 mmol/L Low 136 - 145 mmol/L [facility] Urea nitrogen [Mass/Vol] 19 mg/dL 6 - 23 mg/d L [facility] CBC panel Auto (Bld)on 08-07 Erythrocyte distribution width (RBC) [Ratio] 13.7 % 11.5 - 14.5 % [facility] Hematocrit (Bld) [Volume fraction] 28 % Low 36.0 - 46.0 % [facility] Hemoglobin (Bld) [Mass/Vol] 9.4 g/dL Low 12.0 - 16.0 g/dL [facility] Interpretation and review of laboratory results Abnormal [facility] MCH (RBC) [Entitic mass] 31 pg 26. 0 - 34.0 pg [facility] MCHC (RBC) [Mass/Vol] 33.6 g/dL 32.0 - 36.0 g/dL [facility] MCV (RBC) [Entitic vol] 92 fL 80 - 100 fL [facility] Nucleated RBC/100 WBC (Bld) [Ratio] 0 % [facility] Platelets (Bld) [#/Vol] 93 10*3/[facility]L [facility] (Bld[facility] [#/Vol] 3.03 10*6/uL [facility] WBC (Bld) [#/Vol] 6.1 10*3/uL [facility] Glucose Test strip manual (B ld) [Mass/Vol]on 08-07-2024 Glucose [Mass/Vol] 126 mg/dL High 74 - 99 mg/dL [facility] Interpretation and review of laboratory results Abnormal [facility] Glucose [Mass/Vol] 124 mg/dL High 74 - 99 mg/dL [facility] Interpretation and review of laboratory results Abnormal [facility] Glucose [Mass/Vol] 123 mg/dL High 74 - 99 mg/dL [facility] Interpretation and review of laboratory results Abnormal [facility] Glucose [Mass/Vol] 123 mg/dL High 74 - 99 mg/dL [facility] Interpretation and review of laboratory results Abnormal [facility] Magnesiumon 08-07-2024 Magnesium [Mass/Vol] 2.04 mg/dL 1.60 - 2.40 mg/dL [facility] Magnesium [Mass/Vol]on 08-07 Interpretation and review of laboratory results Normal [facility] No Panel Informationon 08-07 [facility] Renal function 2000 panelon 08-07-2024 Albumin BCP dye [Mass/Vol] 4 g/dL 3.4 - 5.0 g/dL [facility] Anion gap [Moles/Vol] 13 mmol/L 10 - 2 0 mmol/L [facility] Calcium [Mass/Vol] 9 mg/dL 8.6 - 10. 6 mg/dL [facility] Chloride [Moles/Vol] 93 mmol/L Low 98 - 10 7 mmol/L [facility] CO2 [Moles/Vol] 31 mmol/L 21 - 32 mmol/L [facility] Creatinine [Mass/Vol] 0.63 mg/dL 0.50 - 1.05 mg/dL [facility] eGFR - PINF [facility] Glucose [Mass/Vol] 129 mg/dL High 74 - 99 mg/dL [facility] Interpretation and review of laboratory results Abnormal [facility] Phosphate [Mass/Vol] 4.9 mg/dL 2.5 - 4 .9 mg/dL [facility] Potassium [Moles/Vol] 4.5 mmol/L 3.5 - 5.3 mmol/L [facility] Sodium [Moles/Vol] 132 mmol/L Low 136 - 145 mmol/L [facility] Urea nitrogen [Mass/Vol] 19 mg/dL 6 - 23 mg/d L [facility] Albumin BCP dye [Mass/Vol] 3.8 g/dL 3.4 - 5.0 g/dL [facility] Anion gap [Moles/Vol] 12 mmol/L 10 - 2 0 mmol/L [facility] Calcium [Mass/Vol] 9 mg/dL 8.6 - 10. 6 mg/dL [facility] Chloride [Moles/Vol] 95 mmol/L Low 98 - 10 7 mmol/L [facility] CO2 [Moles/Vol] 33 mmol/L High 21 - 32 mmol/L [facility] Creatinine [Mass/Vol] 0.69 mg/dL 0.50 - 1.05 mg/dL [facility] eGFR - PINF [facility] Glucose [Mass/Vol] 127 mg/dL High 74 - 99 mg/dL [facility] Interpretation and review of laboratory results Abnormal [facility] Phosphate [Mass/Vol] 5.4 mg/dL High 2.5 - 4 .9 mg/dL [facility] Potassium [Moles/Vol] 5.8 mmol/L High 3.5 - 5.3 mmol/L [facility] Sodium [Moles/Vol] 134 mmol/L Low 136 - 145 mmol/L [facility] Urea nitrogen [Mass/Vol] 20 mg/dL 6 - 23 mg/d L [facility] US Heart TransthoracicOrdere d By: Nelly Lopez on 08-07-2024 Aortic Valve Area by Continuity of Peak Velocity 1.33 cm2 [facility] Work Phone: Aortic Valve Area by Continuity of VTI 1.45 cm2 [facility] Work Phone: [phone] AV mn grad 9 mmHg [facility] Work Phone: [phone] AV pk grad 18.1 mmHg [facility] Work Phone: [phone] AV pk vaughn 2.13 m/s [facility] Work Phone: [phone] LV A4C EF 59.6 [facility] Work Phone: [phone] LV EF 73 % [facility] Work Phone: [phone] LVIDd 4.1 cm [facility] Work Phone: [phone] LVOT diam 1.7 cm [facility] Work Phone: [phone] MV E/A ratio 0.87 [facility] Work Phone: [phone] RVSP 33 mmHg [facility] Work Phone: [phone] [facility] Work Phone: [phone] US Heart Transthoracicon SYNGO [facility] Work Phone: [phone] XR Chest Single viewon 08-07 UH MMODAL UH MMODAL [facility] Work Phone: [phone] [facility] Work Phone: [phone] Radiology Study observation (narrative) [facility] Work Phone: [phone] CBC panel Auto (Bld)on 08-06 Erythrocyte distribution width (RBC) [Ratio] 14.3 % 11.5 - 14.5 % [facility] Hematocrit (Bld) [Volume fraction] 30.4 % Low 36.0 - 46.0 % [facility] Hemoglobin (Bld) [Mass/Vol] 9.7 g/dL Low 12.0 - 16.0 g/dL [facility] Interpretation and review of laboratory results Abnormal [facility] MCH (RBC) [Entitic mass] 31.9 pg 26. 0 - 34.0 pg [facility] MCHC (RBC) [Mass/Vol] 31.9 g/dL Low 32.0 - 36.0 g/dL [facility] MCV (RBC) [Entitic vol] 100 fL 80 - 100 fL [facility] Nucleated RBC/100 WBC (Bld) [Ratio] 0 % [facility] Platelets (Bld) [#/Vol] 81 10*3/uL [facility] RBC (Bld) [#/Vol] 3.04 10*6/uL Low [facility] WBC (Bld) [#/Vol] 5.6 10*3/uL [facility] Glucose Test strip manual (B ld) [Mass/Vol]on 08-06-2024 Glucose [Mass/Vol] 127 mg/dL High 74 - 99 mg/dL [facility] Interpretation and review of laboratory results Abnormal [facility] Glucose [Mass/Vol] 116 mg/dL High 74 - 99 mg/dL [facility] Interpretation and review of laboratory results Abnormal [facility] Glucose [Mass/Vol] 111 mg/dL High 74 - 99 mg/dL [facility] Interpretation and review of laboratory results Abnormal [facility] Magnesiumon 08-06-2024 Magnesium [Mass/Vol] 2.08 mg/dL 1.60 - 2.40 mg/dL [facility] No Panel Informationon 08-06 Interpretation and review of laboratory results Normal [facility] Renal function 2000 panelon 08-06-2024 Albumin BCP dye [Mass/Vol] 3.8 g/dL 3.4 - 5.0 g/dL [facility] Anion gap [Moles/Vol] 11 mmol/L 10 - 2 0 mmol/L [facility] Calcium [Mass/Vol] 8.8 mg/dL 8.6 - 10. 6 mg/dL [facility] Chloride [Moles/Vol] 99 mmol/L 98 - 10 7 mmol/L [facility] CO2 [Moles/Vol] 31 mmol/L 21 - 32 mmol/L [facility] Creatinine [Mass/Vol] 0.69 mg/dL 0.50 - 1.05 mg/dL [facility] eGFR - PINF [facility] Glucose [Mass/Vol] 96 mg/dL 74 - 99 mg/dL [facility] Phosphate [Mass/Vol] 4.2 mg/dL 2.5 - 4 .9 mg/dL [facility] Potassium [Moles/Vol] 5.1 mmol/L 3.5 - 5.3 mmol/L [facility] Sodium [Moles/Vol] 136 mmol/L 136 - 145 mmol/L [facility] Urea nitrogen [Mass/Vol] 23 mg/dL 6 - 23 mg/d L [facility] XR Chest 2 Viewson 4 UH MMODAL UH MMODAL [facility] Work Phone: [facility] Work Phone: Radiology Study observation (narrative) [facility] Work Phone: CBC panel Auto (Bld)on 08-05 Erythrocyte distribution width (RBC) [Ratio] 14.7 % High 11.5 - 14.5 % [facility] Hematocrit (Bld) [Volume fraction] 29.8 % Low 36.0 - 46.0 % [facility] Hemoglobin (Bld) [Mass/Vol] 9.5 g/dL Low 12.0 - 16.0 g/dL [facility] Interpretation and review of laboratory results Abnormal [facility] MCH (RBC) [Entitic mass] 30.9 pg 26. 0 - 34.0 pg [facility] MCHC (RBC) [Mass/Vol] 31.9 g/dL Low 32.0 - 36.0 g/dL [facility] MCV (RBC) [Entitic vol] 97 fL 80 - 100 fL [facility] Nucleated RBC/100 WBC (Bld) [Ratio] 0 % [facility] Platelets (Bld) [#/Vol] 66 10*3/uL Low U [facility] RBC (Bld) [#/Vol] 3.07 10*6/uL [facility] WBC (Bld) [#/Vol] 5.8 10*3/uL [facility] Glucose Test strip manual (B ld) [Mass/Vol]on 08-05-2024 Glucose [Mass/Vol] 98 mg/dL 74 - 99 mg/dL [facility] Interpretation and review of laboratory results Normal [facility] Glucose [Mass/Vol] 128 mg/dL High 74 - 99 mg/dL [facility] Interpretation and review of laboratory results Abnormal [facility] Glucose [Mass/Vol] 119 mg/dL High 74 - 99 mg/dL [facility] Interpretation and review of laboratory results Abnormal [facility] Glucose [Mass/Vol] 145 mg/dL High 74 - 99 mg/dL [facility] Interpretation and review of laboratory results Abnormal [facility] Magnesiumon 08-05-2024 Magnesium [Mass/Vol] 2.02 mg/dL 1.60 - 2.40 mg/dL [facility] Magnesium [Mass/Vol]on 08-05 Interpretation and review of laboratory results Normal [facility] No Panel Informationon 08-05 [facility] Blood Expiration Date 08/14/2024 11:59:0 0 PM EDT [facility] Dispense Status TR [facility] Dispense Status RE [facility] PRODUCT BLOOD TYPE 5100 [facility] PRODUCT CODE [id number] [facility] Unit ABO O [facility] Unit RH Positive [facility] UNIT VOLUME 350 [facility] XM INTEP COMP [facility] Prepare RBC: 4 Unitson 08-05 Blood Expiration Date 08/11/2024 11:59:0 0 PM EDT [facility] Blood Expiration Date 08/13/2024 11:59:0 0 PM EDT [facility] PRODUCT CODE [id number] [facility] Unit Number [id number] [facility] Unit Number [id number] [facility] Unit Number [id number] [facility] Unit Number [id number] [facility] UNIT VOLUME 318 [facility] Renal function 2000 panelon 08-05-2024 Albumin BCP dye [Mass/Vol] 3.4 g/dL 3.4 - 5.0 g/dL [facility] Anion gap [Moles/Vol] 15 mmol/L 10 - 2 0 mmol/L [facility] Calcium [Mass/Vol] 8.6 mg/dL 8.6 - 10. 6 mg/dL [facility] Chloride [Moles/Vol] 97 mmol/L Low 98 - 10 7 mmol/L [facility] CO2 [Moles/Vol] 31 mmol/L 21 - 32 mmol/L [facility] Creatinine [Mass/Vol] 0.63 mg/dL 0.50 - 1.05 mg/dL [facility] eGFR - PINF [facility] Glucose [Mass/Vol] 145 mg/dL High 74 - 99 mg/dL [facility] Interpretation and review of laboratory results Abnormal [facility] Phosphate [Mass/Vol] 3.4 mg/dL 2.5 - 4 .9 mg/dL [facility] Potassium [Moles/Vol] 3.5 mmol/L 3.5 - 5.3 mmol/L [facility] Sodium [Moles/Vol] 139 mmol/L 136 - 145 mmol/L [facility] Urea nitrogen [Mass/Vol] 26 mg/dL High 6 - 23 mg/d L [facility] XR Chest Single viewon 08-05 UH MMODAL UH MMODAL [facility] Work Phone: [facility] Work Phone: Radiology Study observation (narrative) [facility] Work Phone: Blood type and Indirect anti body screen panel (Bld)on 08-04-2024 ABO group Nom (Bld) B [facility] Blood group antibody screen Ql Negative [facility] D Ag Ql (Bld) Positive [facility] CBC panel Auto (Bld)on 08-04 Erythrocyte distribution width (RBC) [Ratio] 15.4 % High 11.5 - 14.5 % [facility] Hematocrit (Bld) [Volume fraction] 26.9 % Low 36.0 - 46.0 % [facility] Hemoglobin (Bld) [Mass/Vol] 9.1 g/dL Low 12.0 - 16.0 g/dL [facility] Interpretation and review of laboratory results Abnormal [facility] MCH (RBC) [Entitic mass] 31.3 pg 26. 0 - 34.0 pg [facility] MCHC (RBC) [Mass/Vol] 33.8 g/dL 32.0 - 36.0 g/dL [facility] MCV (RBC) [Entitic vol] 92 fL 80 - 100 fL [facility] Nucleated RBC/100 WBC (Bld) [Ratio] 0 % [facility] Platelets (Bld) [#/Vol] 52 10*3/uL Low U [facility] RBC (Bld) [#/Vol] 2.91 10*6/uL [facility] WBC (Bld) [#/Vol] 8.5 10*3/uL [facility] Calcium, Ionizedon Calcium.ionized (Bld) [Moles/Vol] 1.15 mmol/L 1.1 - 1.33 mmol/L [facility] Calcium.ionized (Bld) [Moles /Vol]on 08-04-2024 Interpretation and review of laboratory results Normal [facility] Glucose Test strip manual (B ld) [Mass/Vol]on 08-04-2024 Glucose [Mass/Vol] 127 mg/dL High 74 - 99 mg/dL [facility] Interpretation and review of laboratory results Abnormal [facility] Glucose [Mass/Vol] 115 mg/dL High 74 - 99 mg/dL [facility] Interpretation and review of laboratory results Abnormal [facility] Glucose [Mass/Vol] 111 mg/dL High 74 - 99 mg/dL [facility] Interpretation and review of laboratory results Abnormal [facility] Glucose [Mass/Vol] 106 mg/dL High 74 - 99 mg/dL [facility] Interpretation and review of laboratory results Abnormal [facility] Glucose [Mass/Vol] 127 mg/dL High 74 - 99 mg/dL [facility] Interpretation and review of laboratory results Abnormal [facility] Glucose [Mass/Vol] 131 mg/dL High 74 - 99 mg/dL [facility] Interpretation and review of laboratory results Abnormal [facility] Magnesiumon 08-04-2024 Magnesium [Mass/Vol] 2.02 mg/dL 1.60 - 2.40 mg/dL [facility] Magnesium [Mass/Vol]on 08-04 Interpretation and review of laboratory results Normal [facility] No Panel Informationon 08-04 [facility] Renal function 2000 panelon 08-04-2024 Albumin BCP dye [Mass/Vol] 3.4 g/dL 3.4 - 5.0 g/dL [facility] Anion gap [Moles/Vol] 12 mmol/L 10 - 2 0 mmol/L [facility] Calcium [Mass/Vol] 8.7 mg/dL 8.6 - 10. 6 mg/dL [facility] Chloride [Moles/Vol] 98 mmol/L 98 - 10 7 mmol/L [facility] CO2 [Moles/Vol] 34 mmol/L High 21 - 32 mmol/L [facility] Creatinine [Mass/Vol] 0.75 mg/dL 0.50 - 1.05 mg/dL [facility] GFR/1.73 sq M.predicted among non-blacks MDRD (S/P/Bld) [Vol rate/Area] 86 mL/min/{1.73_m2} - [facility]F [facility] Glucose [Mass/Vol] 122 mg/dL High 74 - 99 mg/dL [facility] Interpretation and review of laboratory results Abnormal [facility] Phosphate [Mass/Vol] 4.5 mg/dL 2.5 - 4 .9 mg/dL [facility] Potassium [Moles/Vol] 3.8 mmol/L 3.5 - 5.3 mmol/L [facility] Sodium [Moles/Vol] 140 mmol/L 136 - 145 mmol/L [facility] Urea nitrogen [Mass/Vol] 23 mg/dL 6 - 23 mg/d L [facility] XR Chest Single viewon 08-04 UH MMODAL UH MMODAL [facility] Work Phone: Radiology Study observation (narrative) [facility] Work Phone: XR Chest Single viewOrdered By: Russ Ghosh on 08-04-2024 [facility] Work Phone: CBC panel Auto (Bld)on 08-03 Erythrocyte distribution width (RBC) [Ratio] 15.9 % High 11.5 - 14.5 % [facility] Hematocrit (Bld) [Volume fraction] 30.9 % Low 36.0 - 46.0 % [facility] Hemoglobin (Bld) [Mass/Vol] 10.1 g/dL Low 12.0 - 16.0 g/dL [facility] Interpretation and review of laboratory results Abnormal [facility] MCH (RBC) [Entitic mass] 31.9 pg 26. 0 - 34.0 pg [facility] MCHC (RBC) [Mass/Vol] 32.7 g/dL 32.0 - 36.0 g/dL [facility] MCV (RBC) [Entitic vol] 98 fL 80 - 100 fL [facility] Nucleated RBC/100 WBC (Bld) [Ratio] 0 % [facility] Platelets (Bld) [#/Vol] 58 10*3/uL [facility] RBC (Bld) [#/Vol] 3.17 10*6/uL Low [facility] WBC (Bld) [#/Vol] 12.1 10*3/uL High [facility] Erythrocyte distribution width (RBC) [Ratio] 16 % High 11.5 - 14.5 % [facility] Hematocrit (Bld) [Volume fraction] 25.5 % Low 36.0 - 46.0 % [facility] Hemoglobin (Bld) [Mass/Vol] 9 g/dL Low 12.0 - 16.0 g/dL [facility] Interpretation and review of laboratory results Abnormal [facility] MCH (RBC) [Entitic mass] 32 pg 26. 0 - 34.0 pg [facility] MCHC (RBC) [Mass/Vol] 35.3 g/dL 32.0 - 36.0 g/dL [facility] MCV (RBC) [Entitic vol] 91 fL 80 - 100 fL [facility] Nucleated RBC/100 WBC (Bld) [Ratio] 0 % [facility] Platelets (Bld) [#/Vol] 44 10*3/uL [facility] RBC (Bld) [#/Vol] 2.81 10*6/uL Low [facility] WBC (Bld) [#/Vol] 10.6 10*3/uL [facility] Calcium, Ionizedon 4 Calcium.ionized (Bld) [Moles/Vol] 1.14 mmol/L 1.1 - 1.33 mmol/L [facility] Calcium, ionizedon 4 Calcium.ionized (Bld) [Moles/Vol] 1.12 mmol/L 1.1 - 1.33 mmol/L [facility] Calcium.ionized (Bld) [Moles /Vol]on 08-03-2024 Interpretation and review of laboratory results Normal [facility] Interpretation and review of laboratory results Normal [facility] Gas and Carbon monoxide and Electrolytes panel (BldA)on 08-03-2024 Anion gap 4 (BldA) [Moles/Vol] 8 Low [facility] Base excess Calc (Bld) [Moles/Vol] 6.5 mmol/L High -2.0 - 3.0 mmol/L [facility] Calcium.ionized (BldA) [Moles/Vol] 1.11 mmol/L 1.10 - 1.33 mmol/L [facility] Chloride (BldA) [Moles/Vol] 99 mmol/L 98 - 107 mmol/L [facility] CO2 (Bld) [Partial pressure] 45 mm[Hg] High [facility] Glucose [Mass/Vol] 108 mg/dL High 74 - 99 mg/dL [facility] HCO3 (Bld) [Moles/Vol] 31.3 mmol/L High 22.0 - 26.0 mmol/L [facility] Hematocrit Est (Bld) [Volume fraction] 32 % Low 36.0 - 46.0 % [facility] Hemoglobin (Bld) [Mass/Vol] 10.7 g/dL Low 12.0 - 16.0 g/dL [facility] Inhaled oxygen concentration 40 % [facility] Interpretation and review of laboratory results Abnormal [facility] Lactate (BldA) [Moles/Vol] 0.9 mmol/L 0.4 - 2.0 mmol/L [facility] Oxygen (Bld) [Partial pressure] 107 mm[Hg] High [facility] Oxyhemoglobin (BldA) [Mass fraction] 96.9 % 94.0 - 98.0 % [facility] pH (Bld) 7.45 [pH] High 7.38 - 7.42 pH [facility] Potassium (BldA) [Moles/Vol] 3.9 mmol/L 3.5 - 5.3 mmol/L [facility] Sodium (BldA) [Moles/Vol] 134 mmol/L Low 13 6 - 145 mmol/L [facility] Anion gap 4 (BldA) [Moles/Vol] 6 Low [facility] Base excess Calc (Bld) [Moles/Vol] 6.8 mmol/L High -2.0 - 3.0 mmol/L [facility] Calcium.ionized (BldA) [Moles/Vol] 1.15 mmol/L 1.10 - 1.33 mmol/L [facility] Chloride (BldA) [Moles/Vol] 103 mmol/L 98 - 107 mmol/L [facility] CO2 (Bld) [Partial pressure] 48 mm[Hg] High [facility] Glucose [Mass/Vol] 120 mg/dL High 74 - 99 mg/dL [facility] HCO3 (Bld) [Moles/Vol] 31.9 mmol/L High 22.0 - 26.0 mmol/L [facility] Hematocrit Est (Bld) [Volume fraction] 27 % Low 36.0 - 46.0 % [facility] Hemoglobin (Bld) [Mass/Vol] 8.9 g/dL Low 12.0 - 16.0 g/dL [facility] Inhaled oxygen concentration 60 % [facility] Interpretation and review of laboratory results Abnormal [facility] Lactate (BldA) [Moles/Vol] 0.6 mmol/L 0.4 - 2.0 mmol/L [facility] Oxygen (Bld) [Partial pressure] 101 mm[Hg] High [facility] Oxyhemoglobin (BldA) [Mass fraction] 96.9 % 94.0 - 98.0 % [facility] pH (Bld) 7.43 [pH] High 7.38 - 7.42 pH [facility] Potassium (BldA) [Moles/Vol] 3.8 mmol/L 3.5 - 5.3 mmol/L [facility] Sodium (BldA) [Moles/Vol] 137 mmol/L 13 6 - 145 mmol/L [facility] Anion gap 4 (BldA) [Moles/Vol] 3 Low [facility] Base excess Calc (Bld) [Moles/Vol] 8.5 mmol/L High -2.0 - 3.0 mmol/L [facility] Calcium.ionized (BldA) [Moles/Vol] 1.15 mmol/L 1.10 - 1.33 mmol/L [facility] Chloride (BldA) [Moles/Vol] 103 mmol/L 98 - 107 mmol/L [facility] CO2 (Bld) [Partial pressure] 51 mm[Hg] High [facility] Glucose [Mass/Vol] 121 mg/dL High 74 - 99 mg/dL [facility] HCO3 (Bld) [Moles/Vol] 33.9 mmol/L High 22.0 - 26.0 mmol/L [facility] Hematocrit Est (Bld) [Volume fraction] 28 % Low 36.0 - 46.0 % [facility] Hemoglobin (Bld) [Mass/Vol] 9.4 g/dL Low 12.0 - 16.0 g/dL [facility] Inhaled oxygen concentration 70 % [facility] Interpretation and review of laboratory results Abnormal [facility] Lactate (BldA) [Moles/Vol] 0.6 mmol/L 0.4 - 2.0 mmol/L [facility] Oxygen (Bld) [Partial pressure] 117 mm[Hg] High [facility] Oxyhemoglobin (BldA) [Mass fraction] 97.1 % 94.0 - 98.0 % [facility] pH (Bld) 7.43 [pH] High 7.38 - 7.42 pH [facility] Potassium (BldA) [Moles/Vol] 3.8 mmol/L 3.5 - 5.3 mmol/L [facility] Sodium (BldA) [Moles/Vol] 136 mmol/L 13 6 - 145 mmol/L [facility] Glucose Test strip manual (B ld) [Mass/Vol]on 08-03-2024 Glucose [Mass/Vol] 136 mg/dL High 74 - 99 mg/dL [facility] Interpretation and review of laboratory results Abnormal [facility] Glucose [Mass/Vol] 111 mg/dL High 74 - 99 mg/dL [facility] Interpretation and review of laboratory results Abnormal [facility] Glucose [Mass/Vol] 127 mg/dL High 74 - 99 mg/dL [facility] Interpretation and review of laboratory results Abnormal [facility] Glucose [Mass/Vol] 132 mg/dL High 74 - 99 mg/dL [facility] Interpretation and review of laboratory results Abnormal [facility] Glucose [Mass/Vol] 117 mg/dL High 74 - 99 mg/dL [facility] Interpretation and review of laboratory results Abnormal [facility] Magnesiumon 08-03-2024 Magnesium [Mass/Vol] 2.02 mg/dL 1.60 - 2.40 mg/dL [facility] Magnesium [Mass/Vol] 2.07 mg/dL 1.60 - 2.40 mg/dL [facility] Magnesium [Mass/Vol]on 08-03 Interpretation and review of laboratory results Normal [facility] Interpretation and review of laboratory results Normal [facility] No Panel Informationon 08-03 [facility] Renal function 2000 panelon 08-03-2024 Albumin BCP dye [Mass/Vol] 4.1 g/dL 3.4 - 5.0 g/dL [facility] Anion gap [Moles/Vol] 11 mmol/L 10 - 2 0 mmol/L [facility] Calcium [Mass/Vol] 9.2 mg/dL 8.6 - 10. 6 mg/dL [facility] Chloride [Moles/Vol] 98 mmol/L 98 - 10 7 mmol/L [facility] CO2 [Moles/Vol] 35 mmol/L High 21 - 32 mmol/L [facility] Creatinine [Mass/Vol] 0.81 mg/dL 0.50 - 1.05 mg/dL [facility] GFR/1.73 sq M.predicted among non-blacks MDRD (S/P/Bld) [Vol rate/Area] 78 mL/min/{1.73_m2} - [facility]F [facility] Glucose [Mass/Vol] 112 mg/dL High 74 - 99 mg/dL [facility] Interpretation and review of laboratory results Abnormal [facility] Phosphate [Mass/Vol] 3.7 mg/dL 2.5 - 4 .9 mg/dL [facility] Potassium [Moles/Vol] 3.9 mmol/L 3.5 - 5.3 mmol/L [facility] Sodium [Moles/Vol] 140 mmol/L 136 - 145 mmol/L [facility] Urea nitrogen [Mass/Vol] 18 mg/dL 6 - 23 mg/d L [facility] Albumin BCP dye [Mass/Vol] 3.6 g/dL 3.4 - 5.0 g/dL [facility] Anion gap [Moles/Vol] 12 mmol/L 10 - 2 0 mmol/L [facility] Calcium [Mass/Vol] 8.5 mg/dL Low 8.6 - 10. 6 mg/dL [facility] Chloride [Moles/Vol] 101 mmol/L 98 - 10 7 mmol/L [facility] CO2 [Moles/Vol] 33 mmol/L High 21 - 32 mmol/L [facility] Creatinine [Mass/Vol] 0.9 mg/dL 0.50 - 1.05 mg/dL [facility] GFR/1.73 sq M.predicted among non-blacks MDRD (S/P/Bld) [Vol rate/Area] 69 mL/min/{1.73_m2} - PINF [facility] Glucose [Mass/Vol] 119 mg/dL High 74 - 99 mg/dL [facility] Interpretation and review of laboratory results Abnormal [facility] Phosphate [Mass/Vol] 4.1 mg/dL 2.5 - 4 .9 mg/dL [facility] Potassium [Moles/Vol] 3.8 mmol/L 3.5 - 5.3 mmol/L [facility] Sodium [Moles/Vol] 142 mmol/L 136 - 145 mmol/L [facility] Urea nitrogen [Mass/Vol] 18 mg/dL 6 - 23 mg/d L [facility] XR Abdomen Single viewon UH MMODAL UH MMODAL [facility] Work Phone: [facility] Work Phone: Radiology Study observation (narrative) [facility] Work Phone: XR Chest Single viewon 08-03 U[facility] MMODAL UH MMODAL [facility] Work Phone: Radiology Study observation (narrative) [facility] Work Phone: XR Chest Single viewOrdered By: Ovidio Escobedo on 08-03-2024 [facility] Work Phone: CBC panel Auto (Bld)on 08-02 Erythrocyte distribution width (RBC) [Ratio] 16.6 % High 11.5 - 14.5 % [facility] Hematocrit (Bld) [Volume fraction] 30.7 % Low 36.0 - 46.0 % [facility] Hemoglobin (Bld) [Mass/Vol] 10.6 g/dL Low 12.0 - 16.0 g/dL [facility] Interpretation and review of laboratory results Abnormal [facility] MCH (RBC) [Entitic mass] 31.5 pg 26. 0 - 34.0 pg [facility] MCHC (RBC) [Mass/Vol] 34.5 g/dL 32.0 - 36.0 g/dL [facility] MCV (RBC) [Entitic vol] 91 fL 80 - 100 fL [facility] Nucleated RBC/100 WBC (Bld) [Ratio] 0 % [facility] Platelets (Bld) [#/Vol] 62 10*3/uL Low [facility] RBC (Bld) [#/Vol] 3.37 10*6/uL [facility] WBC (Bld) [#/Vol] 18.5 10*3/uL [facility] Erythrocyte distribution width (RBC) [Ratio] 16 % High 11.5 - 14.5 % [facility] Hematocrit (Bld) [Volume fraction] 30.6 % Low 36.0 - 46.0 % [facility] Hemoglobin (Bld) [Mass/Vol] 11.3 g/dL Low 12.0 - 16.0 g/dL [facility] Interpretation and review of laboratory results Abnormal [facility] MCH (RBC) [Entitic mass] 34.2 pg High 26. 0 - 34.0 pg [facility] MCHC (RBC) [Mass/Vol] 36.9 g/dL High 32.0 - 36.0 g/dL [facility] MCV (RBC) [Entitic vol] 93 fL 80 - 100 fL [facility] Nucleated RBC/100 WBC (Bld) [Ratio] 0 % [facility] Platelets (Bld) [#/Vol] 141 10*3/uL Low [facility] RBC (Bld) [#/Vol] 3.3 10*6/uL [facility] WBC (Bld) [#/Vol] 14.7 10*3/uL [facility] Calcium, ionizedon 4 Calcium.ionized (Bld) [Moles/Vol] 1.17 mmol/L 1.1 - 1.33 mmol/L [facility] Calcium.ionized (Bld) [Moles/Vol] 1.08 mmol/L Low 1.1 - 1.33 mmol/L [facility] Calcium.ionized (Bld) [Moles /Vol]on 08-02-2024 Interpretation and review of laboratory results Normal [facility] Interpretation and review of laboratory results Abnormal [facility] ECG 12-LEADon 08-02-2024 ECG 12-LEAD Ventricular Rate 71 Atrial Rate 71 P-R Interval 200 QRS Duration 98 Q-T Interval 450 QTC Calculation(Bazett) 490 P [place]se[place] 26 R Marseilles -3 T [place] 269 QRS Count 12 Q Onset 217 P Onset 117 P Offset 166 T Offset 447 QTC Fredericia 476 Diagnosis Sinus rhythm with marked sinus arrhythmia Left ventricular hypertrophy with QRS widening and repolarization abnormality Possible Inferior infarct Prolonged QT Abnormal ECG Confirmed by Luis Enrique Murillo ([id number]) on 08/17/2024 3:06:24 PM Normal [facility] Gas and Carbon monoxide and Electrolytes panel (BldA)on 08-02-2024 Anion gap 4 (BldA) [Moles/Vol] 6 Low [facility] Base excess Calc (Bld) [Moles/Vol] 3.4 mmol/L High -2.0 - 3.0 mmol/L [facility] Calcium.ionized (BldA) [Moles/Vol] 1.13 mmol/L 1.10 - 1.33 mmol/L [facility] Chloride (BldA) [Moles/Vol] 105 mmol/L 98 - 107 mmol/L [facility] CO2 (Bld) [Partial pressure] 51 mm[Hg] High [facility] Glucose [Mass/Vol] 144 mg/dL High 74 - 99 mg/dL [facility] HCO3 (Bld) [Moles/Vol] 29.5 mmol/L High 22.0 - 26.0 mmol/L [facility] Hematocrit Est (Bld) [Volume fraction] 31 % Low 36.0 - 46.0 % [facility] Hemoglobin (Bld) [Mass/Vol] 10.4 g/dL Low 12.0 - 16.0 g/dL [facility] Inhaled oxygen concentration 60 % [facility] Interpretation and review of laboratory results Abnormal [facility] Lactate (BldA) [Moles/Vol] 0.8 mmol/L 0.4 - 2.0 mmol/L [facility] Oxygen (Bld) [Partial pressure] 92 mm[Hg] [facility] Oxyhemoglobin (BldA) [Mass fraction] 95.9 % 94.0 - 98.0 % [facility] pH (Bld) 7.37 [pH] Low 7.38 - 7.42 pH [facility] Potassium (BldA) [Moles/Vol] 4.2 mmol/L 3.5 - 5.3 mmol/L [facility] Sodium (BldA) [Moles/Vol] 136 mmol/L 13 6 - 145 mmol/L [facility] Anion gap 4 (BldA) [Moles/Vol] 5 Low [facility] Base excess Calc (Bld) [Moles/Vol] 2.4 mmol/L -2.0 - 3.0 mmol/L [facility] Calcium.ionized (BldA) [Moles/Vol] 1.16 mmol/L 1.10 - 1.33 mmol/L [facility] Chloride (BldA) [Moles/Vol] 108 mmol/L High 98 - 107 mmol/L [facility] CO2 (Bld) [Partial pressure] 57 mm[Hg] High [facility] Glucose [Mass/Vol] 127 mg/dL High 74 - 99 mg/dL [facility] HCO3 (Bld) [Moles/Vol] 29.4 mmol/L High 22.0 - 26.0 mmol/L [facility] Hematocrit Est (Bld) [Volume fraction] 32 % Low 36.0 - 46.0 % [facility] Hemoglobin (Bld) [Mass/Vol] 10.5 g/dL Low 12.0 - 16.0 g/dL [facility] Inhaled oxygen concentration 70 % [facility] Interpretation and review of laboratory results Abnormal [facility] Lactate (BldA) [Moles/Vol] 0.7 mmol/L 0.4 - 2.0 mmol/L [facility] Oxygen (Bld) [Partial pressure] 102 mm[Hg] High [facility] Oxyhemoglobin (BldA) [Mass fraction] 95.6 % 94.0 - 98.0 % [facility] pH (Bld) 7.32 [pH] Low 7.38 - 7.42 pH [facility] Potassium (BldA) [Moles/Vol] 4.6 mmol/L 3.5 - 5.3 mmol/L [facility] Sodium (BldA) [Moles/Vol] 138 mmol/L 13 6 - 145 mmol/L [facility] Anion gap 4 (BldA) [Moles/Vol] 8 Low [facility] Base excess Calc (Bld) [Moles/Vol] 0.5 mmol/L -2.0 - 3.0 mmol/L [facility] Calcium.ionized (BldA) [Moles/Vol] 1.18 mmol/L 1.10 - 1.33 mmol/L [facility] Chloride (BldA) [Moles/Vol] 107 mmol/L 98 - 107 mmol/L [facility] CO2 (Bld) [Partial pressure] 60 mm[Hg] High [facility] Glucose [Mass/Vol] 142 mg/dL High 74 - 99 mg/dL [facility] HCO3 (Bld) [Moles/Vol] 28.2 mmol/L High 22.0 - 26.0 mmol/L [facility] Hematocrit Est (Bld) [Volume fraction] 32 % Low 36.0 - 46.0 % [facility] Hemoglobin (Bld) [Mass/Vol] 10.8 g/dL Low 12.0 - 16.0 g/dL [facility] Inhaled oxygen concentration 70 % [facility] Interpretation and review of laboratory results Abnormal [facility] Lactate (BldA) [Moles/Vol] 1.2 mmol/L 0.4 - 2.0 mmol/L [facility] Oxygen (Bld) [Partial pressure] 78 mm[Hg] Low [facility] Oxyhemoglobin (BldA) [Mass fraction] 94.5 % 94.0 - 98.0 % [facility] pH (Bld) 7.28 [pH] Low 7.38 - 7.42 pH [facility] Potassium (BldA) [Moles/Vol] 4.6 mmol/L 3.5 - 5.3 mmol/L [facility] Sodium (BldA) [Moles/Vol] 139 mmol/L 13 6 - 145 mmol/L [facility] Anion gap 4 (BldA) [Moles/Vol] 8 Low [facility] Base excess Calc (Bld) [Moles/Vol] 1.4 mmol/L -2.0 - 3.0 mmol/L [facility] Calcium.ionized (BldA) [Moles/Vol] 1.18 mmol/L 1.10 - 1.33 mmol/L [facility] Chloride (BldA) [Moles/Vol] 107 mmol/L 98 - 107 mmol/L [facility] CO2 (Bld) [Partial pressure] 60 mm[Hg] High [facility] Glucose [Mass/Vol] 129 mg/dL High 74 - 99 mg/dL [facility] HCO3 (Bld) [Moles/Vol] 28.9 mmol/L High 22.0 - 26.0 mmol/L [facility] Hematocrit Est (Bld) [Volume fraction] 32 % Low 36.0 - 46.0 % [facility] Hemoglobin (Bld) [Mass/Vol] 10.6 g/dL Low 12.0 - 16.0 g/dL [facility] Inhaled oxygen concentration 70 % [facility] Interpretation and review of laboratory results Abnormal [facility] Lactate (BldA) [Moles/Vol] 0.7 mmol/L 0.4 - 2.0 mmol/L [facility] Oxygen (Bld) [Partial pressure] 95 mm[Hg] [facility] Oxyhemoglobin (BldA) [Mass fraction] 95.8 % 94.0 - 98.0 % [facility] pH (Bld) 7.29 [pH] Low 7.38 - 7.42 pH [facility] Potassium (BldA) [Moles/Vol] 4.4 mmol/L 3.5 - 5.3 mmol/L [facility] Sodium (BldA) [Moles/Vol] 139 mmol/L 13 6 - 145 mmol/L [facility] Anion gap 4 (BldA) [Moles/Vol] 8 Low [facility] Base excess Calc (Bld) [Moles/Vol] 0.9 mmol/L -2.0 - 3.0 mmol/L [facility] Calcium.ionized (BldA) [Moles/Vol] 1.16 mmol/L 1.10 - 1.33 mmol/L [facility] Chloride (BldA) [Moles/Vol] 107 mmol/L 98 - 107 mmol/L [facility] CO2 (Bld) [Partial pressure] 59 mm[Hg] High [facility] Glucose [Mass/Vol] 135 mg/dL High 74 - 99 mg/dL [facility] HCO3 (Bld) [Moles/Vol] 28.4 mmol/L High 22.0 - 26.0 mmol/L [facility] Hematocrit Est (Bld) [Volume fraction] 32 % Low 36.0 - 46.0 % [facility] Hemoglobin (Bld) [Mass/Vol] 10.7 g/dL Low 12.0 - 16.0 g/dL [facility] Inhaled oxygen concentration 70 % [facility] Interpretation and review of laboratory results Abnormal [facility] Lactate (BldA) [Moles/Vol] 0.6 mmol/L 0.4 - 2.0 mmol/L [facility] Oxygen (Bld) [Partial pressure] 83 mm[Hg] Low [facility] Oxyhemoglobin (BldA) [Mass fraction] 94.4 % 94.0 - 98.0 % [facility] pH (Bld) 7.29 [pH] Low 7.38 - 7.42 pH [facility] Potassium (BldA) [Moles/Vol] 4.3 mmol/L 3.5 - 5.3 mmol/L [facility] Sodium (BldA) [Moles/Vol] 139 mmol/L 13 6 - 145 mmol/L [facility] Anion gap 4 (BldA) [Moles/Vol] 11 [facility] Base excess Calc (Bld) [Moles/Vol] 0.4 mmol/L -2.0 - 3.0 mmol/L [facility] Calcium.ionized (BldA) [Moles/Vol] 1.18 mmol/L 1.10 - 1.33 mmol/L [facility] Chloride (BldA) [Moles/Vol] 106 mmol/L 98 - 107 mmol/L [facility] CO2 (Bld) [Partial pressure] 56 mm[Hg] High [facility] Glucose [Mass/Vol] 137 mg/dL High 74 - 99 mg/dL [facility] HCO3 (Bld) [Moles/Vol] 27.6 mmol/L High 22.0 - 26.0 mmol/L [facility] Hematocrit Est (Bld) [Volume fraction] 32 % Low 36.0 - 46.0 % [facility] Hemoglobin (Bld) [Mass/Vol] 10.8 g/dL Low 12.0 - 16.0 g/dL [facility] Inhaled oxygen concentration 80 % [facility] Interpretation and review of laboratory results Abnormal [facility] Lactate (BldA) [Moles/Vol] 0.7 mmol/L 0.4 - 2.0 mmol/L [facility] Oxygen (Bld) [Partial pressure] 108 mm[Hg] High [facility] Oxyhemoglobin (BldA) [Mass fraction] 96.2 % 94.0 - 98.0 % [facility] pH (Bld) 7.3 [pH] Low 7.38 - 7.42 pH [facility] Potassium (BldA) [Moles/Vol] 4.4 mmol/L 3.5 - 5.3 mmol/L [facility] Sodium (BldA) [Moles/Vol] 140 mmol/L 13 6 - 145 mmol/L [facility] Anion gap 4 (BldA) [Moles/Vol] 13 [facility] Base excess Calc (Bld) [Moles/Vol] -1.8000 mmol/L -2.0 - 3.0 mmol/L [facility] Calcium.ionized (BldA) [Moles/Vol] 1.18 mmol/L 1.10 - 1.33 mmol/L [facility] Chloride (BldA) [Moles/Vol] 106 mmol/L 98 - 107 mmol/L [facility] CO2 (Bld) [Partial pressure] 58 mm[Hg] High [facility] Glucose [Mass/Vol] 145 mg/dL High 74 - 99 mg/dL [facility] HCO3 (Bld) [Moles/Vol] 26 mmol/L 22.0 - 26.0 mmol/L [facility] Hematocrit Est (Bld) [Volume fraction] 33 % Low 36.0 - 46.0 % [facility] Hemoglobin (Bld) [Mass/Vol] 11.1 g/dL Low 12.0 - 16.0 g/dL [facility] Inhaled oxygen concentration 80 % [facility] Interpretation and review of laboratory results Abnormal [facility] Lactate (BldA) [Moles/Vol] 1.2 mmol/L 0.4 - 2.0 mmol/L [facility] Oxygen (Bld) [Partial pressure] 71 mm[Hg] Low [facility] Oxyhemoglobin (BldA) [Mass fraction] 91.5 % Low 94.0 - 98.0 % [facility] pH (Bld) 7.26 [pH] Low 7.38 - 7.42 pH [facility] Potassium (BldA) [Moles/Vol] 4.6 mmol/L 3.5 - 5.3 mmol/L [facility] Sodium (BldA) [Moles/Vol] 140 mmol/L 13 6 - 145 mmol/L [facility] Anion gap 4 (BldA) [Moles/Vol] 15 [facility] Base excess Calc (Bld) [Moles/Vol] -4.8000 mmol/L Low -2.0 - 3.0 mmol/L [facility] Calcium.ionized (BldA) [Moles/Vol] 1.03 mmol/L Low 1.10 - 1.33 mmol/L [facility] Chloride (BldA) [Moles/Vol] 109 mmol/L High 98 - 107 mmol/L [facility] CO2 (Bld) [Partial pressure] 45 mm[Hg] High [facility] Glucose [Mass/Vol] 149 mg/dL High 74 - 99 mg/dL [facility] HCO3 (Bld) [Moles/Vol] 21.6 mmol/L Low 22.0 - 26.0 mmol/L [facility] Hematocrit Est (Bld) [Volume fraction] 29 % Low 36.0 - 46.0 % [facility] Hemoglobin (Bld) [Mass/Vol] 9.8 g/dL Low 12.0 - 16.0 g/dL [facility] Inhaled oxygen concentration 55 % [facility] Interpretation and review of laboratory results Abnormal [facility] Lactate (BldA) [Moles/Vol] 2.1 mmol/L High 0.4 - 2.0 mmol/L [facility] Oxygen (Bld) [Partial pressure] 70 mm[Hg] Low [facility] Oxyhemoglobin (BldA) [Mass fraction] 92.2 % Low 94.0 - 98.0 % [facility] pH (Bld) 7.29 [pH] Low 7.38 - 7.42 pH [facility] Potassium (BldA) [Moles/Vol] 3.9 mmol/L 3.5 - 5.3 mmol/L [facility] Sodium (BldA) [Moles/Vol] 142 mmol/L 13 6 - 145 mmol/L [facility] Gas panel (BldV)on Anion gap 4 (BldV) [Moles/Vol] 10 mmol/L 10.0 - 25.0 mmol/L [facility] Base excess Calc (BldV) [Moles/Vol] -0.2000 mmol/L -2.0 - 3.0 mmol/L [facility] Calcium.ionized (BldV) [Moles/Vol] 1.09 mmol/L Low 1.10 - 1.33 mmol/L [facility] Chloride (BldV) [Moles/Vol] 107 mmol/L 98 - 107 mmol/L [facility] CO2 (BldV) [Partial pressure] 53 mm[Hg] High [facility] Glucose [Mass/Vol] 162 mg/dL High 74 - 99 mg/dL [facility] HCO3 (Bld) [Moles/Vol] 26.7 mmol/L High 22.0 - 26.0 mmol/L [facility] Hematocrit Est (Bld) [Volume fraction] 35 % Low 36.0 - 46.0 % [facility] Hemoglobin (Bld) [Mass/Vol] 11.7 g/dL Low 12.0 - 16.0 g/dL [facility] Inhaled oxygen concentration 40 % [facility] Interpretation and review of laboratory results Abnormal [facility] Lactate (BldV) [Moles/Vol] 1.3 mmol/L 0.4 - 2.0 mmol/L [facility] Oxygen (BldV) [Partial pressure] 44 mm[Hg] [facility] Oxygen saturation in Venous blood 69 % 45 - 75 % [facility] Oxyhemoglobin (BldV) [Mass fraction] 66.6 % 45.0 - 75.0 % [facility] pH (BldV) 7.31 [pH] Low 7.33 - 7.43 pH [facility] Potassium (BldV) [Moles/Vol] 4.6 mmol/L 3.5 - 5.3 mmol/L [facility] Sodium (BldV) [Moles/Vol] 139 mmol/L 13 6 - 145 mmol/L [facility] Anion gap 4 (BldV) [Moles/Vol] 9 mmol/L Low 10.0 - 25.0 mmol/L [facility] Base excess Calc (BldV) [Moles/Vol] -1 mmol/L -2.0 - 3.0 mmol/L [facility] Calcium.ionized (BldV) [Moles/Vol] 1.34 mmol/L High 1.10 - 1.33 mmol/L [facility] Chloride (BldV) [Moles/Vol] 106 mmol/L 98 - 107 mmol/L [facility] CO2 (BldV) [Partial pressure] 66 mm[Hg] High [facility] Glucose [Mass/Vol] 148 mg/dL High 74 - 99 mg/dL [facility] HCO3 (Bld) [Moles/Vol] 27.6 mmol/L High 22.0 - 26.0 mmol/L [facility] Hematocrit Est (Bld) [Volume fraction] 33 % Low 36.0 - 46.0 % [facility] Hemoglobin (Bld) [Mass/Vol] 11.1 g/dL Low 12.0 - 16.0 g/dL [facility] Inhaled oxygen concentration 80 % [facility] Interpretation and review of laboratory results Abnormal [facility] Lactate (BldV) [Moles/Vol] 1.9 mmol/L 0.4 - 2.0 mmol/L [facility] Oxygen (BldV) [Partial pressure] 43 mm[Hg] [facility] Oxygen saturation in Venous blood 68 % 45 - 75 % [facility] Oxyhemoglobin (BldV) [Mass fraction] 66.2 % 45.0 - 75.0 % [facility] pH (BldV) 7.23 [pH] Critically low 7.33 - 7.43 pH [facility] Potassium (BldV) [Moles/Vol] 4.8 mmol/L 3.5 - 5.3 mmol/L [facility] Sodium (BldV) [Moles/Vol] 138 mmol/L 13 6 - 145 mmol/L [facility] Anion gap 4 (BldV) [Moles/Vol] 15 mmol/L 10.0 - 25.0 mmol/L [facility] Base excess Calc (BldV) [Moles/Vol] -2.1000 mmol/L Low -2.0 - 3.0 mmol/L [facility] Calcium.ionized (BldV) [Moles/Vol] 1.09 mmol/L Low 1.10 - 1.33 mmol/L [facility] Chloride (BldV) [Moles/Vol] 105 mmol/L 98 - 107 mmol/L [facility] CO2 (BldV) [Partial pressure] 55 mm[Hg] High [facility] Glucose [Mass/Vol] 158 mg/dL High 74 - 99 mg/dL [facility] HCO3 (Bld) [Moles/Vol] 25.3 mmol/L 22.0 - 26.0 mmol/L [facility] Hematocrit Est (Bld) [Volume fraction] 32 % Low 36.0 - 46.0 % [facility] Hemoglobin (Bld) [Mass/Vol] 10.8 g/dL Low 12.0 - 16.0 g/dL [facility] Inhaled oxygen concentration 55 % [facility] Interpretation and review of laboratory results Abnormal [facility] Lactate (BldV) [Moles/Vol] 1.8 mmol/L 0.4 - 2.0 mmol/L [facility] Oxygen (BldV) [Partial pressure] 49 mm[Hg] High [facility] Oxygen saturation in Venous blood 76 % High 45 - 75 % [facility] Oxyhemoglobin (BldV) [Mass fraction] 74.1 % 45.0 - 75.0 % [facility] pH (BldV) 7.27 [pH] Low 7.33 - 7.43 pH [facility] Potassium (BldV) [Moles/Vol] 4.3 mmol/L 3.5 - 5.3 mmol/L [facility] Sodium (BldV) [Moles/Vol] 141 mmol/L 13 6 - 145 mmol/L [facility] Glucose Test strip manual (B ld) [Mass/Vol]on 08-02-2024 Glucose [Mass/Vol] 125 mg/dL High 74 - 99 mg/dL [facility] Interpretation and review of laboratory results Abnormal [facility] Glucose [Mass/Vol] 137 mg/dL High 74 - 99 mg/dL [facility] Interpretation and review of laboratory results Abnormal [facility] Glucose [Mass/Vol] 142 mg/dL High 74 - 99 mg/dL [facility] Interpretation and review of laboratory results Abnormal [facility] Glucose [Mass/Vol] 136 mg/dL High 74 - 99 mg/dL [facility] Interpretation and review of laboratory results Abnormal [facility] Glucose [Mass/Vol] 142 mg/dL High 74 - 99 mg/dL [facility] Interpretation and review of laboratory results Abnormal [facility] Glucose [Mass/Vol] 144 mg/dL High 74 - 99 mg/dL [facility] Interpretation and review of laboratory results Abnormal [facility] Glucose [Mass/Vol] 149 mg/dL High 74 - 99 mg/dL [facility] Interpretation and review of laboratory results Abnormal [facility] Magnesiumon 08-02-2024 Magnesium [Mass/Vol] 2.52 mg/dL High 1.60 - 2.40 mg/dL [facility] Magnesium [Mass/Vol] 2.69 mg/dL High 1.60 - 2.40 mg/dL [facility] No Panel Informationon 08-02 Interpretation and review of laboratory results Abnormal [facility] Blood Expiration Date 08/05/2024 11:00:0 0 AM EDT [facility] Dispense Status RE [facility] PRODUCT BLOOD TYPE 7300 [facility] Unit ABO B [facility] Unit RH Positive [facility] Interpretation and review of laboratory results Abnormal [facility] Prepare Plasma: 4 Unitson PRODUCT CODE [id number] [facility] PRODUCT CODE [id number] [facility] Unit Number [id number] [facility] Unit Number [id number] [facility] UNIT VOLUME 206 [facility] UNIT VOLUME 218 [facility] Renal function 2000 panelon 08-02-2024 Albumin BCP dye [Mass/Vol] 3.9 g/dL 3.4 - 5.0 g/dL [facility] Anion gap [Moles/Vol] 14 mmol/L 10 - 2 0 mmol/L [facility] Calcium [Mass/Vol] 8.5 mg/dL Low 8.6 - 10. 6 mg/dL [facility] Chloride [Moles/Vol] 107 mmol/L 98 - 10 7 mmol/L [facility] CO2 [Moles/Vol] 29 mmol/L 21 - 32 mmol/L [facility] Creatinine [Mass/Vol] 0.95 mg/dL 0.50 - 1.05 mg/dL [facility] GFR/1.73 sq M.predicted among non-blacks MDRD (S/P/Bld) [Vol rate/Area] 65 mL/min/{1.73_m2} - [facility] Glucose [Mass/Vol] 129 mg/dL High 74 - 99 mg/dL [facility] Phosphate [Mass/Vol] 5.8 mg/dL High 2.5 - 4 .9 mg/dL [facility] Potassium [Moles/Vol] 4.5 mmol/L 3.5 - 5.3 mmol/L [facility] Sodium [Moles/Vol] 145 mmol/L 136 - 145 mmol/L [facility] Urea nitrogen [Mass/Vol] 15 mg/dL 6 - 23 mg/d L [facility] Albumin BCP dye [Mass/Vol] 3.7 g/dL 3.4 - 5.0 g/dL [facility] Anion gap [Moles/Vol] 16 mmol/L 10 - 2 0 mmol/L [facility] Calcium [Mass/Vol] 7.9 mg/dL Low 8.6 - 10. 6 mg/dL [facility] Chloride [Moles/Vol] 108 mmol/L High 98 - 10 7 mmol/L [facility] CO2 [Moles/Vol] 25 mmol/L 21 - 32 mmol/L [facility] Creatinine [Mass/Vol] 0.97 mg/dL 0.50 - 1.05 mg/dL [facility] GFR/1.73 sq M.predicted among non-blacks MDRD (S/P/Bld) [Vol rate/Area] 63 mL/min/{1.73_m2} - PINF [facility] Glucose [Mass/Vol] 162 mg/dL High 74 - 99 mg/dL [facility] Phosphate [Mass/Vol] 4.8 mg/dL 2.5 - 4 .9 mg/dL [facility] Potassium [Moles/Vol] 4.3 mmol/L 3.5 - 5.3 mmol/L [facility] Sodium [Moles/Vol] 145 mmol/L 136 - 145 mmol/L [facility] Urea nitrogen [Mass/Vol] 14 mg/dL 6 - 23 mg/d L [facility] XR Chest Single viewon 08-02 UH MMODAL UH MMODAL [facility] Work Phone: Radiology Study observation (narrative) [facility] Work Phone: [phone] UH MMODAL UH MMODAL [facility] Work Phone: Radiology Study observation (narrative) [facility] Work Phone: [phone] XR Chest Single viewOrdered By: Robe Gamez on 08-02-2024 [facility] Work Phone: XR Chest Single viewOrdered By: Jasmeet Santiago on 08-02-2024 [facility] Work Phone: ACT Coag (Bld)on 08-01-2024 Interpretation and review of laboratory results Abnormal [facility] Interpretation and review of laboratory results Normal [facility] Interpretation and review of laboratory results Abnormal [facility] Interpretation and review of laboratory results Normal [facility] ACTIVATED CLOTTING TIME HIGH on 08-01-2024 ACT Coag (Bld) 175 s [facility] Comment on above: Target ACT range gisel l vary based on the patient population, clinical status, and surgical intervention occurring. ACT Coag (Bld) 123 s [facility] Comment on above: Target ACT range gisel l vary based on the patient population, clinical status, and surgical intervention occurring. ACT Coag (Bld) 626 s [facility] Comment on above: Target ACT range gisel l vary based on the patient population, clinical status, and surgical intervention occurring. ACT Coag (d) [facility] Comment on above: ABOVE LIMIT FOR MARTY CE Target ACT range will vary based on the patient population, clinical status, and surgical intervention occurring. ACT Coag (d) [facility] Comment on above: ABOVE LIMIT FOR MARTY CE Target ACT range will vary based on the patient population, clinical status, and surgical intervention occurring. ACT Coag ([facility]) [facility] Comment on above: ABOVE LIMIT FOR MARTY CE Target ACT range will vary based on the patient population, clinical status, and surgical intervention occurring. ACT Coag (d) [facility] Comment on above: ABOVE LIMIT FOR MARTY CE Target ACT range will vary based on the patient population, clinical status, and surgical intervention occurring. ACT Coag (Bld) 96 s [facility] Comment on above: Target ACT range gisel l vary based on the patient population, clinical status, and surgical intervention occurring. Anesthesia Intraoperative Tr ansesophageal Echocardiogramon 08-01-2024 Aortic Valve Area by Continuity of Peak Velocity 0.88 cm2 [facility] Work Phone: Aortic Valve Area by Continuity of VTI 0.89 cm2 [facility] Work Phone: [phone] AV mn grad 12 mmHg [facility] Work Phone: [phone] AV pk grad 23.6 mmHg [facility] Work Phone: [phone] AV pk vaughn 2.43 m/s [facility] Work Phone: [phone] LV EF 58 % [facility] Work Phone: [phone] LVOT diam 1.8 cm [facility] Work Phone: [phone] SYNGO [facility] Work Phone: [phone] [facility] Work Phone: [phone] CBC panel Auto (Bld)on 08-01 Erythrocyte distribution width (RBC) [Ratio] 14.7 % High 11.5 - 14.5 % [facility] Hematocrit (Bld) [Volume fraction] 33.3 % Low 36.0 - 46.0 % [facility] Hemoglobin (Bld) [Mass/Vol] 11.9 g/dL Low 12.0 - 16.0 g/dL [facility] Interpretation and review of laboratory results Abnormal [facility] MCH (RBC) [Entitic mass] 30.7 pg 26. 0 - 34.0 pg [facility] MCHC (RBC) [Mass/Vol] 35.7 g/dL 32.0 - 36.0 g/dL [facility] MCV (RBC) [Entitic vol] 86 fL 80 - 100 fL [facility] Nucleated RBC/100 WBC (Bld) [Ratio] 0 % [facility] Platelets (Bld) [#/Vol] 51 10*3/uL [facility] RBC (Bld) [#/Vol] 3.88 10*6/uL Low Un[facility] WBC (Bld) [#/Vol] 12.7 10*3/uL High Unive [facility] Calcium, Ionizedon Calcium.ionized (Bld) [Moles/Vol] 1.04 mmol/L Low 1.1 - 1.33 mmol/L [facility] Calcium.ionized (Bld) [Moles /Vol]on 08-01-2024 Interpretation and review of laboratory results Abnormal [facility] FibrinogenOrdered By: Nakul Velez on 08-01-2024 Fibrinogen Coag (PPP) [Mass/Vol] 139 mg/dL Low 200 - 400 mg/dL [facility] Gas and Carbon monoxide and Electrolytes panel (BldA)on 08-01-2024 Anion gap 4 (BldA) [Moles/Vol] [facility] Base excess Calc (Bld) [Moles/Vol] -1.7000 mmol/L -2.0 - 3.0 mmol/L [facility] Calcium.ionized (BldA) [Moles/Vol] 1.09 mmol/L Low 1.10 - 1.33 mmol/L [facility] Chloride (BldA) [Moles/Vol] [facility] CO2 (Bld) [Partial pressure] 48 mm[Hg] High [facility] Glucose [Mass/Vol] 150 mg/dL High 74 - 99 mg/dL [facility] HCO3 (Bld) [Moles/Vol] 24.7 mmol/L 22.0 - 26.0 mmol/L [facility] Hematocrit Est (Bld) [Volume fraction] 35 % Low 36.0 - 46.0 % [facility] Hemoglobin (Bld) [Mass/Vol] 11.5 g/dL Low 12.0 - 16.0 g/dL [facility] Inhaled oxygen concentration 40 % [facility] Interpretation and review of laboratory results Abnormal [facility] Lactate (BldA) [Moles/Vol] 1.2 mmol/L 0.4 - 2.0 mmol/L [facility] Oxygen (Bld) [Partial pressure] 92 mm[Hg] [facility] Oxyhemoglobin (BldA) [Mass fraction] 92.1 % Low 94.0 - 98.0 % [facility] pH (Bld) 7.32 [pH] Low 7.38 - 7.42 pH [facility] Potassium (BldA) [Moles/Vol] 4.2 mmol/L 3.5 - 5.3 mmol/L [facility] Sodium (BldA) [Moles/Vol] 140 mmol/L 13 6 - 145 mmol/L [facility] Anion gap 4 (BldA) [Moles/Vol] 11 [facility] Base excess Calc (Bld) [Moles/Vol] -1.4000 mmol/L -2.0 - 3.0 mmol/L [facility] Calcium.ionized (BldA) [Moles/Vol] 1.03 mmol/L Low 1.10 - 1.33 mmol/L [facility] Chloride (BldA) [Moles/Vol] 109 mmol/L High 98 - 107 mmol/L [facility] CO2 (Bld) [Partial pressure] 44 mm[Hg] High [facility] Glucose [Mass/Vol] 161 mg/dL High 74 - 99 mg/dL [facility] HCO3 (Bld) [Moles/Vol] 24.3 mmol/L 22.0 - 26.0 mmol/L [facility] Hematocrit Est (Bld) [Volume fraction] 34 % Low 36.0 - 46.0 % [facility] Hemoglobin (Bld) [Mass/Vol] 11.2 g/dL Low 12.0 - 16.0 g/dL [facility] Inhaled oxygen concentration 40 % [facility] Interpretation and review of laboratory results Abnormal [facility] Lactate (BldA) [Moles/Vol] 1.2 mmol/L 0.4 - 2.0 mmol/L [facility] Oxygen (Bld) [Partial pressure] 79 mm[Hg] Low [facility] Oxyhemoglobin (BldA) [Mass fraction] 94.3 % 94.0 - 98.0 % [facility] pH (Bld) 7.35 [pH] Low 7.38 - 7.42 pH [facility] Potassium (BldA) [Moles/Vol] 4.4 mmol/L 3.5 - 5.3 mmol/L [facility] Sodium (BldA) [Moles/Vol] 140 mmol/L 13 6 - 145 mmol/L [facility] Anion gap 4 (BldA) [Moles/Vol] 11 [facility] Base excess Calc (Bld) [Moles/Vol] -2.8000 mmol/L Low -2.0 - 3.0 mmol/L [facility] Calcium.ionized (BldA) [Moles/Vol] 1.06 mmol/L Low 1.10 - 1.33 mmol/L [facility] Chloride (BldA) [Moles/Vol] 108 mmol/L High 98 - 107 mmol/L [facility] CO2 (Bld) [Partial pressure] 44 mm[Hg] High [facility] Glucose [Mass/Vol] 178 mg/dL High 74 - 99 mg/dL [facility] HCO3 (Bld) [Moles/Vol] 23.2 mmol/L 22.0 - 26.0 mmol/L [facility] Hematocrit Est (Bld) [Volume fraction] 38 % 36.0 - 46.0 % [facility] Hemoglobin (Bld) [Mass/Vol] 12.7 g/dL 12.0 - 16.0 g/dL [facility] Inhaled oxygen concentration 40 % [facility] Interpretation and review of laboratory results Abnormal [facility] Lactate (BldA) [Moles/Vol] 1.2 mmol/L 0.4 - 2.0 mmol/L [facility] Oxygen (Bld) [Partial pressure] 80 mm[Hg] Low [facility] Oxyhemoglobin (BldA) [Mass fraction] 93.2 % Low 94.0 - 98.0 % [facility] pH (Bld) 7.33 [pH] Low 7.38 - 7.42 pH [facility] Potassium (BldA) [Moles/Vol] 4.9 mmol/L 3.5 - 5.3 mmol/L [facility] Sodium (BldA) [Moles/Vol] 137 mmol/L 13 6 - 145 mmol/L [facility] Anion gap 4 (BldA) [Moles/Vol] 17 [facility] Base excess Calc (Bld) [Moles/Vol] -3.5000 mmol/L Low -2.0 - 3.0 mmol/L [facility] Calcium.ionized (BldA) [Moles/Vol] 1.09 mmol/L Low 1.10 - 1.33 mmol/L [facility] Chloride (BldA) [Moles/Vol] 105 mmol/L 98 - 107 mmol/L [facility] CO2 (Bld) [Partial pressure] 47 mm[Hg] High [facility] Glucose [Mass/Vol] 180 mg/dL High 74 - 99 mg/dL [facility] HCO3 (Bld) [Moles/Vol] 23.1 mmol/L 22.0 - 26.0 mmol/L [facility] Hematocrit Est (Bld) [Volume fraction] 39 % 36.0 - 46.0 % [facility] Hemoglobin (Bld) [Mass/Vol] 13.1 g/dL 12.0 - 16.0 g/dL [facility] Inhaled oxygen concentration 40 % [facility] Interpretation and review of laboratory results Abnormal [facility] Lactate (BldA) [Moles/Vol] 1.4 mmol/L 0.4 - 2.0 mmol/L [facility] Oxygen (Bld) [Partial pressure] 76 mm[Hg] Low [facility] Oxyhemoglobin (BldA) [Mass fraction] 92.7 % Low 94.0 - 98.0 % [facility] pH (Bld) 7.3 [pH] Low 7.38 - 7.42 pH [facility] Potassium (BldA) [Moles/Vol] 4.8 mmol/L 3.5 - 5.3 mmol/L [facility] Sodium (BldA) [Moles/Vol] 140 mmol/L 13 6 - 145 mmol/L [facility] Anion gap 4 (BldA) [Moles/Vol] [facility] Base excess Calc (Bld) [Moles/Vol] 0.6 mmol/L -2.0 - 3.0 mmol/L [facility] Calcium.ionized (BldA) [Moles/Vol] 1.06 mmol/L Low 1.10 - 1.33 mmol/L [facility] Chloride (BldA) [Moles/Vol] [facility] CO2 (Bld) [Partial pressure] 36 mm[Hg] Low [facility] Glucose [Mass/Vol] 125 mg/dL High 74 - 99 mg/dL [facility] HCO3 (Bld) [Moles/Vol] 24.5 mmol/L 22.0 - 26.0 mmol/L [facility] Hematocrit Est (Bld) [Volume fraction] 36 % 36.0 - 46.0 % [facility] Hemoglobin (Bld) [Mass/Vol] 12.1 g/dL 12.0 - 16.0 g/dL [facility] Inhaled oxygen concentration 50 % [facility] Interpretation and review of laboratory results Abnormal [facility] Lactate (BldA) [Moles/Vol] 1.1 mmol/L 0.4 - 2.0 mmol/L [facility] Oxygen (Bld) [Partial pressure] 118 mm[Hg] High [facility] Oxyhemoglobin (BldA) [Mass fraction] 96.3 % 94.0 - 98.0 % [facility] pH (Bld) 7.44 [pH] High 7.38 - 7.42 pH [facility] Potassium (BldA) [Moles/Vol] 4.6 mmol/L 3.5 - 5.3 mmol/L [facility] Sodium (BldA) [Moles/Vol] 139 mmol/L 13 6 - 145 mmol/L [facility] Anion gap 4 (BldA) [Moles/Vol] 9 Low [facility] Base excess Calc (Bld) [Moles/Vol] -0.1000 mmol/L -2.0 - 3.0 mmol/L [facility] Calcium.ionized (BldA) [Moles/Vol] 1.18 mmol/L 1.10 - 1.33 mmol/L [facility] Chloride (BldA) [Moles/Vol] 109 mmol/L High 98 - 107 mmol/L [facility] CO2 (Bld) [Partial pressure] 44 mm[Hg] High [facility] Glucose [Mass/Vol] 124 mg/dL High 74 - 99 mg/dL [facility] HCO3 (Bld) [Moles/Vol] 25.4 mmol/L 22.0 - 26.0 mmol/L [facility] Hematocrit Est (Bld) [Volume fraction] 32.0 % Low 36.0 - 46.0 % [facility] Hemoglobin (Bld) [Mass/Vol] 10.5 g/dL Low 12.0 - 16.0 g/dL [facility] Inhaled oxygen concentration 100 % [facility] Interpretation and review of laboratory results Abnormal [facility] Lactate (BldA) [Moles/Vol] 1.8 mmol/L 0.4 - 2.0 mmol/L [facility] Oxygen (Bld) [Partial pressure] 152 mm[Hg] High [facility] Oxyhemoglobin (BldA) [Mass fraction] 97.5 % 94.0 - 98.0 % [facility] pH (Bld) 7.37 [pH] Low 7.38 - 7.42 pH [facility] Potassium (BldA) [Moles/Vol] 3.9 mmol/L 3.5 - 5.3 mmol/L [facility] Sodium (BldA) [Moles/Vol] 139 mmol/L 13 6 - 145 mmol/L [facility] Glucose Test strip manual (B ld) [Mass/Vol]on 08-01-2024 Glucose [Mass/Vol] 167 mg/dL High 74 - 99 mg/dL [facility] Interpretation and review of laboratory results Abnormal [facility] Glucose [Mass/Vol] 114 mg/dL High 74 - 99 mg/dL [facility] Interpretation and review of laboratory results Abnormal [facility] HbA1c (Bld) [Mass fraction]o n 08-01-2024 Average glucose Estimated from glycated hemoglobin (Bld) [Mass/Vol] 94 mg/dL Not Established [facility] Hemoglobin A1con 08-01-2024 HbA1c (Bld) [Mass fraction] 4.9 % See comment [facility] Magnesiumon 08-01-2024 Magnesium [Mass/Vol] 3.62 mg/dL High 1.60 - 2.40 mg/dL [facility] No Panel Informationon 08-01 Interpretation and review of laboratory results Abnormal [facility] Interpretation and review of laboratory results Abnormal [facility] PT and aPTT panel Coag (PPP) on 08-01-2024 aPTT Coag (PPP) [Time] 43 s High Un [facility] INR Coag (PPP) [Relative time] 1.5 {INR} High 0.9 - 1.1 [facility] PT Coag (PPP) [Time] 16.5 s High [facility] Renal function 2000 panelon 08-01-2024 Albumin BCP dye [Mass/Vol] 3.4 g/dL 3.4 - 5.0 g/dL [facility] Anion gap [Moles/Vol] 17 mmol/L 10 - 2 0 mmol/L [facility] Calcium [Mass/Vol] 7.8 mg/dL Low 8.6 - 10. 6 mg/dL [facility] Chloride [Moles/Vol] 109 mmol/L High 98 - 10 7 mmol/L [facility] CO2 [Moles/Vol] 25 mmol/L 21 - 32 mmol/L [facility] Creatinine [Mass/Vol] 0.68 mg/dL 0.50 - 1.05 mg/dL [facility] eGFR - PINF [facility] Glucose [Mass/Vol] 122 mg/dL High 74 - 99 mg/dL [facility] Phosphate [Mass/Vol] 3.5 mg/dL 2.5 - 4 .9 mg/dL [facility] Potassium [Moles/Vol] 4.5 mmol/L 3.5 - 5.3 mmol/L [facility] Sodium [Moles/Vol] 146 mmol/L High 136 - 145 mmol/L [facility] Urea nitrogen [Mass/Vol] 11 mg/dL 6 - 23 mg/d L [facility] TEG Clot Global Profile Unso licitedon 08-01-2024 ANGLE 60.0 deg Low 63.0 - 78.0 deg [facility] FLEV [facility] Comment on above: NO RESULT CANNOT CALCULATE Interpretation and review of laboratory results Abnormal [facility] K (Clot Kinetics) 3.4 min High 0.8 - 2.1 min [facility] MA ( Christiane Amplitude) FF mm Low 15.0 - 32.0 mm [facility] MA (Max Amplitude) K mm Low 52.0 - 69.0 mm [facility] MA (Max Amplitude) RT mm Low 52.0 - 70.0 mm [facility] R (Reaction Time) K 13.7 min High 4.6 - 9. 1 min [facility] R (Reaction Time) KH 13.0 min High 4.3 - 8 .3 min [facility] Test Comment [facility] ANGLE 68.0 deg 63.0 - 78.0 deg [facility] FLEV 341 mg/dL 278 - 581 mg/dL [facility] K (Clot Kinetics) 1.9 min 0.8 - 2.1 min [facility] ( Christiane Amplitude) FF 19.0 mm 15.0 - 32.0 mm [facility] (Max Amplitude) K 53.0 mm 52.0 - 69.0 mm [facility] (Max Amplitude) RT 55.0 mm 52.0 - 70.0 mm [facility] R (Reaction Time) K 8.1 min 4.6 - 9. 1 min [facility] R (Reaction Time) KH 8.2 min 4.3 - 8 .3 min [facility] Test Comment baseline [facility] XR Chest Single viewon 08-01 UH MMODAL UH MMODAL [facility] Work Phone: XR Chest Single viewOrdered By: Krishna Barrera on 08-01-2024 [facility] Work Phone: US.doppler Carotid arteries - bilateralon 07-26-2024 [facility] [address], [address], [facility] [address] Vascular Lab Report [facility] US CAROTID ARTERY DUPLEX BILATERAL Patient Name: ZORA Lewis Physician: [id number] Eh Leyva MD Study Date: 07/26/2024 Ordering [id number] ALONDRA HYAES Physician: HAO/PID: [id number] Technologist: Tonia An RVT, [facility] Technologist 2: Date of 1955 /Age: years Gender: F Admission Status: Outpatient Location [facility] Performed: Diagnosis/ICD: Other specified symptoms and signs involving the circulatory and respiratory systems-R09.89; Encounter for other preprocedural examination-Z01.818 CPT Codes: 41013 Cerebrovascular Carotid Duplex scan complete CONCLUSIONS: Right Carotid: Findings are consistent with [...] significant stenosis in the left subclavian artery. Imaging & Doppler Findings: Right Plaque Morph: The proximal right internal carotid artery demonstrates heterogenous and irregular plaque. Left Plaque Morph: The proximal left internal carotid artery demonstrates heterogenous plaque. Right Left PSV EDV PSV EDV 70 cm/s 10 cm/s CCA P 62 cm/s 17 cm/s 45 cm/s 13 cm/s CCA D 59 cm/s 17 cm/s 59 cm/s 18 cm/s ICA P 53 cm/s 17 cm/s 65 cm/s 19 cm/s ICA M 75 cm/s 25 cm/s 89 cm/s 23 cm/s ICA D 58 cm/s 26 cm/s 108 cm/s ECA 108 cm/s 65 cm/s 27 cm/s Vertebral 40 cm/s 12 cm/s 246 cm/s Subclavian 86 cm/s Right Left ICA/CCA Ratio 1.3 0.9 Vicki Leyva MD Final Eh Lew MD - 07/26/[address], [address], [facility] [address] Vascular Lab Report [facility] US CAROTID ARTERY DUPLEX BILATERAL Patient Name: ZORA Lewis Physician: [id number] Leyva MD Study Date: 07/26/2024 Ordering [id number] ALONDRA HAYES Physician: MRN/PID: [id number] Technologist: Tonia An RVT, RDDE Technologist 2: Date of 1955 /Age: years Gender: F Admission Status: Outpatient Location [facility] Performed: Diagnosis/ICD: Other specified symptoms and signs involving the circulatory and respiratory systems-R09.89; Encounter for other preprocedural examination-Z01.818 CPT Codes: 48242 Cerebrovascular Carotid Duplex scan complete CONCLUSIONS: Right Carotid: Findings are consistent with [...] significant stenosis in the left subclavian artery. Imaging & Doppler Findings: Right Plaque Morph: The proximal right internal carotid artery demonstrates heterogenous and irregular plaque. Left Plaque Morph: The proximal left internal carotid artery demonstrates heterogenous plaque. Right Left PSV EDV PSV EDV 70 cm/s 10 cm/s CCA P 62 cm/s 17 cm/s 45 cm/s 13 cm/s CCA D 59 cm/s 17 cm/s 59 cm/s 18 cm/s ICA P 53 cm/s 17 cm/s 65 cm/s 19 cm/s ICA M 75 cm/s 25 cm/s 89 cm/s 23 cm/s ICA D 58 cm/s 26 cm/s 108 cm/s ECA 108 cm/s 65 cm/s 27 cm/s Vertebral 40 cm/s 12 cm/s 246 cm/s Subclavian 86 cm/s Right Left ICA/CCA Ratio 1.3 0.9 [id number] Eh Leyva MD Final [facility] Work Phone: Radiology Study observation (narrative) [facility] Work Phone: US.doppler Carotid arteries - bilateralOrdered By: Eh Leyva on 07-26-2024 [facility] Work Phone: [facility] US CAROTID ARTERY DUPLE X BILATERALon 07-26-2024 VAS US CAROTID ARTERY DUPLEX BILATERAL [facility] [address], [address], [facility] [address] Vascular Lab Report [facility] US CAROTID ARTERY DUPLEX BILATERAL Patient Name: ZORA Duane Lewis Physician: [id number] Eh Leyva MD Study Date: 07/26/2024 Ordering [id number] ALONDRA HAYES Physician: MRN/PID: [id number] Technologist: Tonia An RVT [facility] Technologist 2: Date of 1955 /Age: years Gender: F Admission Status: Outpatient Location [facility] Performed: Diagnosis/ICD: Other specified symptoms and signs involving the circulatory and respiratory systems-R09.89; Encounter for other preprocedural examination-Z01.818 CPT Codes: 18370 Cerebrovascular Carotid Duplex scan complete CONCLUSIONS: Right Carotid: Findings are consistent with [...] significant stenosis in the left subclavian artery. Imaging & Doppler Findings: Right Plaque Morph: The proximal right internal carotid artery demonstrates heterogenous and irregular plaque. Left Plaque Morph: The proximal left internal carotid artery demonstrates heterogenous plaque. Right Left PSV EDV PSV EDV 70 cm/s 10 cm/s CCA P 62 cm/s 17 cm/s 45 cm/s 13 cm/s CCA D 59 cm/s 17 cm/s 59 cm/s 18 cm/s ICA P 53 cm/s 17 cm/s 65 cm/s 19 cm/s ICA M 75 cm/s 25 cm/s 89 cm/s 23 cm/s ICA D 58 cm/s 26 cm/s 108 cm/s ECA 108 cm/s 65 cm/s 27 cm/s Vertebral 40 cm/s 12 cm/s 246 cm/s Subclavian 86 cm/s Right Left ICA/CCA Ratio 1.3 0.9 [id number] Eh Leyva MD Final Normal [facility] No Panel Informationon 07-17 Study performed outside the system. Official study report is not available here and may be obtained from the performing facility. SYNGO_SECTR A No Panel InformationOrdered By: Documentation Systemgenerated on 07-17-2024 [facility] Work Phone: No Panel Informationon 07-03 Study performed outside the system. Official study report is not available here and may be obtained from the performing facility. SYNGO_SECTR A No Panel InformationOrdered By: Documentation Systemgenerated on 07-03-2024 [facility] Work Phone: ECG 12-LEADon 06-06-2024 ECG 12-LEAD Ventricular Rate 75 Atrial Rate 75 P-R Interval 192 QRS Duration 90 Q-T Interval 420 QTC Calculation(Bazett) 469 P Marse[place] 8 R [place]se[place] -10 T Marse[place] -11 QRS Count 12 Q Onset 218 P Onset 122 P Offset 170 T Offset 428 QTC Fredericia 452 Diagnosis Normal sinus rhythm Minimal voltage criteria for LVH, may be normal variant Anterolateral infarct , age undetermined Abnormal ECG When compared with ECG of 03/08/2024 Significant changes have occurred Confirmed by Jayce Murillo ([id number]) on 06/12/2024 10:14:13 AM Normal [facility] No Panel Informationon 05-29 Study performed outside the system. Official study report is not available here and may be obtained from the performing facility. SYNGO_SECTR A No Panel InformationOrdered By: Documentation Systemgenerated on 05-29-2024 [facility] Work Phone: Basic metabolic 2000 panelon 04-30-2024 Anion gap [Moles/Vol] 12 mmol/L 10 - 2 0 mmol/L [facility] Calcium [Mass/Vol] 8.9 mg/dL 8.6 - 10. 3 mg/dL [facility] Chloride [Moles/Vol] 95 mmol/L Low 98 - 10 7 mmol/L [facility] CO2 [Moles/Vol] 30 mmol/L 21 - 32 mmol/L [facility] Creatinine [Mass/Vol] 0.88 mg/dL 0.50 - 1.05 mg/dL [facility] GFR/1.73 sq M.predicted among non-blacks MDRD (S/P/Bld) [Vol rate/Area] 71 mL/min/{1.73_m2} - PINF [facility] Comment on above: Calculations of jose a mated GFR are performed using the 2020 CKD-EPI Study Refit equation without the race variable for the IDMS-Traceable creatinine methods. https://jasn.asnjournals.org/content//ASN.20 38967924 Glucose [Mass/Vol] 91 mg/dL 74 - 99 mg/dL [facility] Interpretation and review of laboratory results Abnormal [facility] Potassium [Moles/Vol] 4.2 mmol/L 3.5 - 5.3 mmol/L [facility] Sodium [Moles/Vol] 133 mmol/L Low 136 - 145 mmol/L [facility] Urea nitrogen [Mass/Vol] 14 mg/dL 6 - 23 mg/d L [facility] CBC W Auto Differential pane l (Bld)on 04-30-2024 Basophils (Bld) [#/Vol] 0.04 10*3/uL [facility] Basophils/100 WBC (Bld) 0.4 % 0.0 - 2.0 % [facility] Eosinophils (Bld) [#/Vol] 0.04 10*3/uL [facility] Eosinophils/100 WBC (Bld) 0.4 % 0.0 - 6.0 % [facility] Erythrocyte distribution width (RBC) [Ratio] 14.6 % High 11.5 - 14.5 % [facility] Hematocrit (Bld) [Volume fraction] 31.7 % Low 36.0 - 46.0 % [facility] Hemoglobin (Bld) [Mass/Vol] 10.4 g/dL Low 12.0 - 16.0 g/dL [facility] Immature granulocytes (Bld) [#/Vol] 0.14 10*3/uL [facility] Immature granulocytes/100 WBC (Bld) 1.4 % High 0.0 - 0.9 % [facility] Comment on above: Immature Granulocyte Count (IG) includes promyelocytes, myelocytes and metamyelocytes but does not include bands. Percent differential counts (%) should be interpreted in the context of the absolute cell counts (cells/UL). Interpretation and review of laboratory results Abnormal [facility] Lymphocytes (Bld) [#/Vol] 1.04 10*3/uL Low [facility] Lymphocytes/100 WBC (Bld) 10.1 % 13 .0 - 44.0 % [facility] MCH (RBC) [Entitic mass] 28.6 pg 26. 0 - 34.0 pg [facility] MCHC (RBC) [Mass/Vol] 32.8 g/dL 32.0 - 36.0 g/dL [facility] MCV (RBC) [Entitic vol] 87 fL 80 - 100 fL [facility] Monocytes (Bld) [#/Vol] 1.47 10*3/uL High [facility] Monocytes/100 WBC (Bld) 14.3 % 2.0 - 10.0 % [facility] Neutrophils (Bld) [#/Vol] 7.56 10*3/uL [facility] Comment on above: Percent differential counts (%) should be interpreted in the context of the absolute cell counts (cells/uL). Neutrophils/100 WBC (Bld) 73.4 % 40 .0 - 80.0 % [facility] Nucleated RBC/100 WBC (Bld) [Ratio] 0.0 % [facility] Platelets (Bld) [#/Vol] 324 10*3/uL [facility] RBC (Bld) [#/Vol] 3.64 10*6/uL Low [facility] WBC (Bld) [#/Vol] 10.3 10*3/uL [facility] CK [Catalytic activity/Vol]o n 04-30-2024 Interpretation and review of laboratory results Abnormal [facility] CT Cervical spine WO contras ton 04-30-2024 Cervical spine DJD a s described. No CT evidence of cervical spine fracture in this exam. MACRO: None Signed by: Vikram Gonzalez 04/30/2024 5:40 PM Dictation workstation: [id number] MMODAL Interpreted By: Vikram Glynn, STUDY: CT CERVICAL SPINE WO IV CONTRAST; 04/30/2024 4:38 pm INDICATION: Signs/Symptoms:neck pain ho breast cancer. COMPARISON: None. ACCESSION NUMBER(S): [id number] ORDERING CLINICIAN: TK BEVERLY TECHNIQUE: Thin section axial images were obtained from the skull base down through the thoracic inlet. Sagittal and coronal reconstruction images were generated. Soft tissue, lung, and bone windows were reviewed. FINDINGS: VERTEBRAL BODIES AND POSTERIOR ELEMENTS: Moderate disc space narrowing with endplate spurring at C5-6 and C6-7. Joint space loss with moderate spurring in the anterior superior aspect of the atlantoaxial joint. Mild thickening of the transverse ligament posterior to dens. Multilevel interfacet hypertrophy with spur formation. No cervical spine compression fracture. No posterior element fracture. No destructive bone lesion. No listhesis. SPINAL CANAL: No gross disc herniation. NECK SOFT TISSUES: [id number] bilateral carotid bulb arterial calcifications. LUNG APICES: Imaged portion of the lung apices are within normal limits. SKULL BASE: Within normal limits. MMODAL Vikram Gonzalez MD - 04/30/2024 Interpreted By: Vikram Gonzalez, STUDY: CT CERVICAL SPINE WO IV CONTRAST; 04/30/2024 4:38 pm INDICATION: Signs/Symptoms:neck pain ho breast cancer. COMPARISON: None. ACCESSION NUMBER(S): [id number] ORDERING CLINICIAN: TK BEVERLY TECHNIQUE: Thin section axial images were obtained from the skull base down through the thoracic inlet. Sagittal and coronal reconstruction images were generated. Soft tissue, lung, and bone windows were reviewed. FINDINGS: VERTEBRAL BODIES AND POSTERIOR ELEMENTS: Moderate disc space narrowing with endplate spurring at C5-6 and C6-7. Joint space loss with moderate spurring in the anterior superior aspect of the atlantoaxial joint. Mild thickening of the transverse ligament posterior to dens. Multilevel interfacet hypertrophy with spur formation. No cervical spine compression fracture. No posterior element fracture. No destructive bone lesion. No listhesis. SPINAL CANAL: No gross disc herniation. NECK SOFT TISSUES: [id number] bilateral carotid bulb arterial calcifications. LUNG APICES: Imaged portion of the lung apices are within normal limits. SKULL BASE: Within normal limits. IMPRESSION: Cervical spine DJD as described. No CT evidence of cervical spine fracture in this exam. MACRO: None Signed by: Vikram Gonzalez 04/30/2024 5:40 PM Dictation workstation: [id number] [facility] Work Phone: Radiology Study observation (narrative) [facility] Work Phone: CT Cervical spine WO contras tOrdered By: Vikram Gonzalez on 04-30-2024 [facility] Work Phone: Cardiac Enzymes - CPKon - CK [Catalytic activity/Vol] 221 U/L High 0 - 215 U/L [facility] Hepatic function 2000 panelo n 04-30-2024 Albumin BCP dye [Mass/Vol] 3.9 g/dL 3.4 - 5.0 g/dL [facility] ALP [Catalytic activity/Vol] 116 U/L 33 - 136 U/L [facility] ALT With P-5'-P [Catalytic activity/Vol] 21 U/L 7 - 45 U/L [facility] Comment on above: Patients treated wit h Sulfasalazine may generate falsely decreased results for ALT. AST With P-5'-P [Catalytic activity/Vol] 25 U/L 9 - 39 U/L [facility] Bilirubin [Mass/Vol] 0.4 mg/dL 0.0 - 1 .2 mg/dL [facility] Bilirubin.direct [Mass/Vol] 0.2 mg/dL 0.0 - 0.3 mg/dL [facility] Interpretation and review of laboratory results Normal [facility] Protein [Mass/Vol] 6.8 g/dL 6.4 - 8.2 g/dL [facility] No Panel Informationon 04-30 [facility] .GFRon 03-20-2024 GFR 70 ml/min/1.73sqm Normal [facility] ([place]) Comment on above: Result Comment: GFR Population [...] FR, PRO, CMP, ADIFF, ANEU, CBC #### [place] [address] GFR Non- 58 ml/min/1.73sqm Normal [facility] ([place]) Comment on above: Result Comment: GFR Population [...] FR, PRO, CMP, ADIFF, ANEU, CBC #### [address] [address] BMPon 03-20-2024 BUN/Creatinine Ratio 16 ratio Normal 7-27 [facility] ([place]) Comment on above: Performed By: #### G FR, PRO, CMP, ADIFF, ANEU, CBC #### [address] [address] Calcium [Mass/Vol] 8.4 mg/dL Normal 8.4-10.2 [facility] ([place]) Comment on above: Performed By: #### G FR, PRO, CMP, ADIFF, ANEU, CBC #### [address] [address] Chloride [Moles/Vol] 103 mmol/L Normal 98-107 [facility] ([place]) Comment on above: Performed By: #### G FR, PRO, CMP, ADIFF, ANEU, CBC #### [place] [id number] CO2 [Moles/Vol] 31 mmol/L Normal 23-31 [facility] ([place]) Comment on above: Performed By: #### G FR, PRO, CMP, ADIFF, ANEU, CBC #### [place] [address] Creatinine [Mass/Vol] 0.95 mg/dL Normal 0.55-1.02 [facility] ([place]) Comment on above: Performed By: #### G FR, PRO, CMP, ADIFF, ANEU, CBC #### [address] [address] Electrolyte Balance 8.0 mEq/L Normal 4.0-15.0 [facility] ([place]) Comment on above: Performed By: #### G FR, PRO, CMP, ADIFF, ANEU, CBC #### [address] [address] Glucose [Mass/Vol] 95 mg/dL Normal 83-110 [facility] ([place]) Comment on above: Performed By: #### G FR, PRO, CMP, ADIFF, ANEU, CBC #### [place] [id number] Potassium [Moles/Vol] 4.8 mmol/L Normal 3.5-5.1 [facility] ([place]) Comment on above: Performed By: #### G FR, PRO, CMP, ADIFF, ANEU, CBC #### [place] [id number] [address] [place] [address] Sodium [Moles/Vol] 142 mmol/L Normal 136-145 [facility] ([place]) Comment on above: Performed By: #### G FR, PRO, CMP, ADIFF, ANEU, CBC #### [address] [address] Urea nitrogen [Mass/Vol] 15 mg/dL Normal 7-18 [facility] ([place]) Comment on above: Performed By: #### G FR, PRO, CMP, ADIFF, ANEU, CBC #### [address] [address] LABORATORYOrdered By: SYSTEM SYSTEM on 03-20-2024 Calcium [Mass/Vol] 8.4 mg/dL Normal 8.4 - 10. 2 mg/dL AO ADM SS Chloride [Moles/Vol] 103 mmol/L Normal 98 - 10 7 mmol/L AO ADM SS CO2 [Moles/Vol] 31 mmol/L Normal 23 - 31 mmol/L AO ADM SS Creatinine [Mass/Vol] 0.95 mg/dL Normal 0.55 - 1.02 mg/dL AO ADM SS Electrolyte Balance 8.0 mEq/L Normal 4.0 - 15 .0 mEq/L AO ADM SS GFR/1.73 sq M.predicted among blacks MDRD (S/P/Bld) [Vol rate/Area] 70 ml/min/1.73sqm Invalid Interpretation Code AO Chemistry S [...] [Vol rate/Area] 58 ml/min/1.73sqm Invalid Interpretation Code AO Chemistry S [...] than 15 mL/min/1.73 square meters Glucose [Mass/Vol] 95 mg/dL Normal 83 - 110 mg/dL AO ADM SS Potassium [Moles/Vol] 4.8 mmol/L Normal 3.5 - 5.1 mmol/L AO ADM SS Sodium [Moles/Vol] 142 mmol/L Normal 136 - 145 mmol/L AO ADM SS Urea nitrogen [Mass/Vol] 15 mg/dL Normal 7 - 18 mg/d L AO ADM SS Urea nitrogen/Creatinine [Mass ratio] 16 ratio Normal 7 - 27 ratio AO ADM SS MG Breast - unilateral Singl e view for clip placementon 03-14-2024 Radiology Study observation (narrative) [facility] Work Phone: No Panel Informationon 03-14 Status post ultrasound-guided Magseed localizations of 3 right breast masses and a right axillary lymph node. POST PROCEDURE MAMMOGRAM FOR MARKER PLACEMENT. Only 1 Magseed was identified on the postprocedure mammogram due to their far posterior location of the masses and lymph node. MACRO: None Signed by: Eugenia Bob 03/14/2024 1:01 PM Dictation workstation: [id number] [facility] Interpreted By: Eugenia Bob, and Jefry Dee STUDY: BI US GUIDED BREAST LOCALIZATION RIGHT; BI BREAST BIOPSY CLIP IMAGING; 03/14/2024 10:46 am; 03/14/2024 11:14 am; 03/14/2024 10:51 am ACCESSION NUMBER(S): [id number]; [id number]; [id number] ORDERING CLINICIAN: THAI MOHR INDICATION: Magseed localizations of 3 right breast masses and 1 right axillary lymph node for treatment planning. 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 FINDINGS: PREPROCEDURAL CONSULTATION: The history and physical [...] patient identification, site and type of procedure. Attending radiologist Dr. Eugenia Bob and manager of radiology Dr. Luiz Capps, a radiology nurse and an senior medical technologist were present. PROCEDURE 1: Scanning of the right breast redemonstrated the mass of concern with associated biopsy marker in the 6 o'clock position, 4 cm from the nipple. 5 mL of buffered 1% lidocaine was injected subcutaneously and into the deeper tissues using ultrasound guidance. A 12 cm needle containing a Magseed was advanced into the mass under ultrasound guidance. When the needle tip was satisfactorily positioned within the mass, the Magseed was deployed. Scanning of the breast demonstrated the Magseed satisfactorily positioned within the mass. PROCEDURE 2: Scanning of the right breast redemonstrated the mass of concern with associated biopsy marker in the 8 o'clock position, 7 cm from the nipple. 5 mL of buffered 1% lidocaine was injected subcutaneously and into the deeper tissues using ultrasound guidance. A 7 cm needle containing a Magseed was advanced into the mass under ultrasound guidance. When the needle tip was satisfactorily positioned within the mass, the Magseed was deployed. Scanning of the breast demonstrated the Magseed satisfactorily positioned within the mass. PROCEDURE 3: Scanning of the right breast redemonstrated the mass of concern in the 7 o'clock position, 7 cm from the nipple. 5 mL of buffered 1% lidocaine was injected subcutaneously and into the deeper tissues using ultrasound guidance. A 7 cm needle containing a Magseed was advanced into the mass under ultrasound guidance. When the needle tip was satisfactorily positioned within the mass, the Magseed was deployed. Scanning of the breast demonstrated the Magseed satisfactorily positioned within the mass. PROCEDURE 4: Scanning of the right axilla redemonstrated the lymph node of concern with associated tissue marker. 5 mL of buffered 1% lidocaine was injected subcutaneously and into the deeper tissues using ultrasound guidance. A 7 cm needle containing a Magseed was advanced into the node under ultrasound guidance. When the needle tip was satisfactorily positioned within the node, the Magseed was deployed. Scanning of the axilla demonstrated the Magseed satisfactorily positioned within the node. A mammogram was obtained after placement of the Magseeds. Due to the far posterior location of these masses, only 1 Magseed within the 7 o'clock position mass associated with a ribbon shaped tissue marker is partially seen in the right breast. The remainder of the 3 Magseeds are not visualized. The patient tolerated the procedure without difficulty. [facility] MM[facility] Eugenia Bob MD - 03/14/2024 Interpreted By: Eugenia Bob and Abuhamdeh Imran STUDY: BI US GUIDED BREAST LOCALIZATION RIGHT; BI BREAST BIOPSY CLIP IMAGING; 03/14/2024 10:46 am; 03/14/2024 11:14 am; 03/14/2024 10:51 am ACCESSION NUMBER(S): [id number]; [id number]; [id number] ORDERING CLINICIAN: THAI MOHR INDICATION: Magseed localizations of 3 right breast masses and 1 right axillary lymph node for treatment planning. 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 FINDINGS: PREPROCEDURAL CONSULTATION: The history and physical [...] patient identification, site and type of procedure. Attending radiologist Dr. Eugenia Bob and manager of radiology Dr. Luiz Capps, a radiology nurse and an senior medical technologist were present. PROCEDURE 1: Scanning of the right breast redemonstrated the mass of concern with associated biopsy marker in the 6 o'clock position, 4 cm from the nipple. 5 mL of buffered 1% lidocaine was injected subcutaneously and into the deeper tissues using ultrasound guidance. A 12 cm needle containing a Magseed was advanced into the mass under ultrasound guidance. When the needle tip was satisfactorily positioned within the mass, the Magseed was deployed. Scanning of the breast demonstrated the Magseed satisfactorily positioned within the mass. PROCEDURE 2: Scanning of the right breast redemonstrated the mass of concern with associated biopsy marker in the 8 o'clock position, 7 cm from the nipple. 5 mL of buffered 1% lidocaine was injected subcutaneously and into the deeper tissues using ultrasound guidance. A 7 cm needle containing a Magseed was advanced into the mass under ultrasound guidance. When the needle tip was satisfactorily positioned within the mass, the Magseed was deployed. Scanning of the breast demonstrated the Magseed satisfactorily positioned within the mass. PROCEDURE 3: Scanning of the right breast redemonstrated the mass of concern in the 7 o'clock position, 7 cm from the nipple. 5 mL of buffered 1% lidocaine was injected subcutaneously and into the deeper tissues using ultrasound guidance. A 7 cm needle containing a Magseed was advanced into the mass under ultrasound guidance. When the needle tip was satisfactorily positioned within the mass, the Magseed was deployed. Scanning of the breast demonstrated the Magseed satisfactorily positioned within the mass. PROCEDURE 4: Scanning of the right axilla redemonstrated the lymph node of concern with associated tissue marker. 5 mL of buffered 1% lidocaine was injected subcutaneously and into the deeper tissues using ultrasound guidance. A 7 cm needle containing a Magseed was advanced into the node under ultrasound guidance. When the needle tip was satisfactorily positioned within the node, the Magseed was deployed. Scanning of the axilla demonstrated the Magseed satisfactorily positioned within the node. A mammogram was obtained after placement of the Magseeds. Due to the far posterior location of these masses, only 1 Magseed within the 7 o'clock position mass associated with a ribbon shaped tissue marker is partially seen in the right breast. The remainder of the 3 Magseeds are not visualized. The patient tolerated the procedure without difficulty. IMPRESSION: Status post ultrasound-guided Magseed localizations of 3 right breast masses and a right axillary lymph node. POST PROCEDURE MAMMOGRAM FOR MARKER PLACEMENT. Only 1 Magseed was identified on the postprocedure mammogram due to their far posterior location of the masses and lymph node. MACRO: None Signed by: Eugenia Bob 03/14/2024 1:01 PM Dictation workstation: [id number] [facility] Work Phone: No Panel InformationOrdered By: Eugenia Bob on 03-14-2024 [facility] Work Phone: US Guidance for localization of Breast - righton 03-14-2024 Radiology Study observation (narrative) [facility] Work Phone: Radiology Study observation (narrative) [facility] Work Phone: ECG 12 Leadon 03-08-2024 EKG shows atrial pac ed rhythm; T wave changes suggestive of inferolateral ischemia. Prolonged QT. [facility] Work Phone: [facility] Work Phone: Guidance for placement of CV catheter with port in [place] 03-02-2024 Addendum by Gokul Navarrete MD on 03/02/2024 3:29 PM EDT Interpreted By: Gokul Navarrete, ADDENDUM: The original report states that the port catheter was placed via the right internal jugular vein. Ultrasound did demonstrate that the right internal jugular vein was patent, but small in caliber. Access into the right internal jugular vein was attempted, but the wire was unable to be advanced centrally. Subsequently the wire and needle were removed and access was obtained in the right external jugular vein after ultrasound confirmation of patency. The port catheter was therefore placed via the right external jugular vein. Signed by: Gokul Navarrete 03/02/2024 3:29 PM -------- ORIGINAL REPORT -------- Dictation workstation: [id number] [facility] Work Phone: 6. Successful placement of a right chest BD PowerPortT ClearVUET Slim Implantable Port with 8 Ecu[place]orean catheter. The port is ready to use. The port is power injectable and MR safe. Notably, a right-sided chest port was placed despite right breast cancer due to the presence of a left-sided ICD. I was present for and/or performed the critical portions of the procedure and immediately available throughout the entire procedure. I personally reviewed the image(s) / study and resident interpretation. I agree with the findings as stated. Performed and dictated at [facility]. MACRO: None Signed by: Gokul Navarrete 03/02/2024 3:20 PM Dictation workstation: [id number] [facility]ODAL Interpreted By: Gokul Dunlap, STUDY: IR CVC PORT PLACEMENT; 03/02/2024 11:17 am INDICATION: Signs/Symptoms:port a cath placement needed for chemotherapy. COMPARISON: None. ACCESSION NUMBER(S): [id number] ORDERING CLINICIAN: MARCELO DAVEY TECHNIQUE: INTERVENTIONALIST(S): Gokul Navarrete MD CONSENT: The patient/patient's POA/next of kin was informed of the nature of the proposed procedure. The purposes, alternatives, risks, and benefits were explained and discussed. All questions were answered and consent was obtained. RADIATION EXPOSURE: Fluoroscopy time: 0.5 min. Dose: 1.89 mGy. SEDATION: Moderate conscious IV sedation services (supervision of administration, induction, and maintenance) were provided by the physician performing the procedure with intravenous fentanyl and versed for 25 minutes. The physician was assisted by an independent trained observer, an interventional radiology nurse, in the continuous monitoring of patient level of consciousness and physiologic status. MEDICATION/CONTRAST: No additional TIME OUT: A time out was performed immediately prior to procedure start with the interventional team, correctly identifying the patient name, date of , MRN, procedure, anatomy (including marking of site and side), patient position, procedure consent form, relevant laboratory and imaging test results, antibiotic administration, safety precautions, and procedure-specific equipment needs. COMPLICATIONS: No immediate adverse events identified. FINDINGS: Maximum sterile barrier technique was implemented. In the recumbent position, the patient was positioned on the angiography table. The right supraclavicular and infraclavicular cutaneous tissues were prepared and draped in usual sterile manner. The supraclavicular access site was evaluated with ng-scale ultrasound with subsequent subcutaneous instillation of Lidocaine for local anesthesia. Ultrasound images demonstrate a patent right internal jugular vein. Under direct ultrasound guidance and Seldinger/micropunctur e technique, the right internal jugular vein was accessed. An ultrasound digital spot image was acquired and stored on the PACS. After confirmation of location, a 018 [place]-Mandril guidewire was inserted to secure location. The micro-access needle was removed over the guidewire and exchanged for the 5 Ecuadorean coaxial dilator. Catheter length was measured at this time using the 018 wire tube position the catheter tip at the right atrial/superior vena caval junction. Utilizing a 5-on-4 coaxial dilator sheath system, upsize to a 035 3-J guidewire was performed. Following Lidocaine 1% local anesthesia, a Mediport pocket was created in the subcutaneous infraclavicular chest wall. A subcutaneous tract was then created from the Mediport pocket to the venous access site and the 8-Ecuadorean port catheter was pulled through the tunnel to the access site. The MediPort was implanted into the port pocket and utilizing the measurement obtained previously, the catheter was trimmed to length. The 5 Ecuadorean coaxial dilator was then removed and access tract dilation was performed to an eventual 8.5-Ecuadorean peel-away sheath dilator system. The catheter was placed through the peel-away sheath and the peel-away sheath was removed. A fluoroscopic spot image of the chest was acquired in the AP projection to confirm optimal course and location of the subcutaneous and central venous catheter. In addition, optimal orientation and continuity to the Mediport reservoir were identified. A Petersen needle was then utilized to access the reservoir to assess for leaks, evaluate for aspiration and flushability. The Mediport was then irrigated with 100 units/cc heparinized saline. The Mediport pocket was irrigated with normal saline. Interrupted subcutaneous 3-0 self-absorbing sutures were used to close the port pocket incision. The port and venous access incision sites were covered with Liquiband and sterile dressings were subsequently applied. The patient tolerated the procedure without complication. MMODAL Gokul Navarrete MD - 03/02/2024 Interpreted By: Gokul Navarrete, STUDY: IR CVC PORT PLACEMENT; 03/02/2024 11:17 am INDICATION: Signs/Symptoms:port a cath placement needed for chemotherapy. COMPARISON: None. ACCESSION NUMBER(S): [id number] ORDERING CLINICIAN: MARECLO DAVEY TECHNIQUE: INTERVENTIONALIST(S): Gokul Navarrete MD CONSENT: The patient/patient's POA/next of kin was informed of the nature of the proposed procedure. The purposes, alternatives, risks, and benefits were explained and discussed. All questions were answered and consent was obtained. RADIATION EXPOSURE: Fluoroscopy time: 0.5 min. Dose: 1.89 mGy. SEDATION: Moderate conscious IV sedation services (supervision of administration, induction, and maintenance) were provided by the physician performing the procedure with intravenous fentanyl and versed for 25 minutes. The physician was assisted by an independent trained observer, an interventional radiology nurse, in the continuous monitoring of patient level of consciousness and physiologic status. MEDICATION/CONTRAST: No additional TIME OUT: A time out was performed immediately prior to procedure start with the interventional team, correctly identifying the patient name, date of , MRN, procedure, anatomy (including marking of site and side), patient position, procedure consent form, relevant laboratory and imaging test results, antibiotic administration, safety precautions, and procedure-specific equipment needs. COMPLICATIONS: No immediate adverse events identified. FINDINGS: Maximum sterile barrier technique was implemented. In the recumbent position, the patient was positioned on the angiography table. The right supraclavicular and infraclavicular cutaneous tissues were prepared and draped in usual sterile manner. The supraclavicular access site was evaluated with ng-scale ultrasound with subsequent subcutaneous instillation of Lidocaine for local anesthesia. Ultrasound images demonstrate a patent right internal jugular vein. Under direct ultrasound guidance and Seldinger/micropunctur e technique, the right internal jugular vein was accessed. An ultrasound digital spot image was acquired and stored on the PACS. After confirmation of location, a 018 [place]-Mandril guidewire was inserted to secure location. The micro-access needle was removed over the guidewire and exchanged for the 5 Ecuadorean coaxial dilator. Catheter length was measured at this time using the 018 wire tube position the catheter tip at the right atrial/superior vena caval junction. Utilizing a 5-on-4 coaxial dilator sheath system, upsize to a 035 3-J guidewire was performed. Following Lidocaine 1% local anesthesia, a Mediport pocket was created in the subcutaneous infraclavicular chest wall. A subcutaneous tract was then created from the Mediport pocket to the venous access site and the 8-Ecuadorean port catheter was pulled through the tunnel to the access site. The MediPort was implanted into the port pocket and utilizing the measurement obtained previously, the catheter was trimmed to length. The 5 Ecuadorean coaxial dilator was then removed and access tract dilation was performed to an eventual 8.5-Ecuadorean peel-away sheath dilator system. The catheter was placed through the peel-away sheath and the peel-away sheath was removed. A fluoroscopic spot image of the chest was acquired in the AP projection to confirm optimal course and location of the subcutaneous and central venous catheter. In addition, optimal orientation and continuity to the Mediport reservoir were identified. A Petersen needle was then utilized to access the reservoir to assess for leaks, evaluate for aspiration and flushability. The Mediport was then irrigated with 100 units/cc heparinized saline. The Mediport pocket was irrigated with normal saline. Interrupted subcutaneous 3-0 self-absorbing sutures were used to close the port pocket incision. The port and venous access incision sites were covered with Liquiband and sterile dressings were subsequently applied. The patient tolerated the procedure without complication. IMPRESSION: 1. Successful placement of a right chest BD PowerPortT ClearVUET Slim Implantable Port with 8 [place]cu[place]orean catheter. The port is ready to use. The port is power injectable and MR safe. Notably, a right-sided chest port was placed despite right breast cancer due to the presence of a left-sided ICD. I was present for and/or performed the critical portions of the procedure and immediately available throughout the entire procedure. I personally reviewed the image(s) / study and resident interpretation. I agree with the findings as stated. Performed and dictated at [facility]. MACRO: None Signed by: Gokul Navarrete 02/15 (more content not included)... [facility] Work Phone: [facility] Work Phone: Radiology Study observation (narrative) [facility] Work Phone: NM Whole body Bone Viewson 0 02-23-2024 No evidence of osseo us metastatic disease. Degenerative changes as described above. I personally reviewed the images/study and I agree with the findings as stated. This study was interpreted at [facility], [place], [place]. MACRO: None Signed by: Luis Manuel Parrish 02/23/2024 3:29 PM Dictation workstation: [id number] MMODAL Interpreted By: Luis Manuel Koch and Bartolomei Aguilar Christopher STUDY: NM BONE WHOLE BODY; 02/23/2024 12:52 pm INDICATION: Signs/Symptoms:abnorma lity noted on PET in neck. h/o breast cancer. evaluate for metastatic dz. COMPARISON: CT spine thoracic 01/24/2024. ACCESSION NUMBER(S): [id number] ORDERING CLINICIAN: MARCELO DAVEY TECHNIQUE: DIVISION OF [...] s, most consistent with an arthritic/degenerative pattern. [facility] Luis Manuel Parrish MD - 02/23/2024 Interpreted By: Luis Manuel Parrish and Bartolomei Aguilar Christopher STUDY: NM BONE WHOLE BODY; 02/23/2024 12:52 pm INDICATION: Signs/Symptoms:abnorma lity noted on PET in neck. h/o breast cancer. evaluate for metastatic dz. COMPARISON: CT spine thoracic 01/24/2024. ACCESSION NUMBER(S): [id number] ORDERING CLINICIAN: MARCELO DAVEY TECHNIQUE: DIVISION OF [...] as stated. This study was interpreted at [place], [place]. MACRO: None Signed by: Luis Manuel Parrish 02/23/2024 3:29 PM Dictation workstation: [id number] [facility] Work Phone: Radiology Study observation (narrative) [facility] Work Phone: NM Whole body Bone ViewsOrde red By: Luis Manuel Parrish on 02-23-2024 [facility] Work Phone: US Guidance for localization of Breast - righton 02-22-2024 Status post ultrasou nd guided core needle biopsy of a right breast mass followed by tissue marker placement. Pathology is pending. POST PROCEDURE MAMMOGRAM FOR MARKER PLACEMENT. MACRO: None Signed by: Rosalee Estevez 02/22/2024 11:00 AM Dictation workstation: [id number] [facility] Interpreted By: Rosalee Estevez, STUDY: BI US GUIDED BREAST LOCALIZATION AND BIOPSY RIGHT; 02/22/2024 9:20 am ACCESSION NUMBER(S): [id number] ORDERING CLINICIAN: THAI MOHR INDICATION: Patient presents for an ultrasound-guided biopsy [...] Dr. Estevez, a radiology nurse and an senior medical technologist were present. PROCEDURE: Scanning of the right [...] obtained. Decision was made to use a Adept Cloud 9 gauge vacuum assisted device. 2 samples [...] BIOPSY RIGHT; 02/22/2024 9:20 am ACCESSION NUMBER(S): [id number] ORDERING CLINICIAN: THAI MOHR INDICATION: Patient presents for an ultrasound-guided biopsy [...] Dr. Estevez, a radiology nurse and an senior medical technologist were present. PROCEDURE: Scanning of the right [...] obtained. Decision was made to use a Adept Cloud 9 gauge vacuum assisted device. 2 samples [...] Rosalee Estevez 02/22/2024 11:00 AM Dictation workstation: [id number] [facility] Work Phone: Radiology Study observation (narrative) [facility] Work Phone: US Guidance for localization of Breast - rightOrdered By: Rosalee Estevez on 02-22-2024 [facility] Work Phone: [facility] IT[facility] 02-11-2024 TRANSTHORACIC ECHO (TTE) LIMITED [facility] [address], [address], [place] [address] TRANSTHORACIC ECHOCARDIOGRAM REPORT Patient Name: ZORA NIXON Reading Physician: [id number] Vikram Schofield MD Study Date: 02/11/2024 Ordering Provider: [id number] MARCELO DAVEY MRN/PID: [id number] Fellow: Nurse: Date of /Age: 401/26/1955 / 69 years [employer] Supervisor: Miri Cox RDCS Gender: F Additional Staff: Height: 152.40 cm Admit Date: Weight: 69.40 kg Admission Status: Outpatient BSA / BMI: 1.67 m2 / 29.88 kg/m2 Department Location: [facility] Blood Pressure: 150 /78 mmHg Study Type: TRANSTHORACIC ECHO (TTE) LIMITED Diagnosis/ICD: Encounter for monitoring cardiotoxic drug therapy-Z51.81 Indication: cardiac eval for cardiotoxic drug thereapy. CPT Code: Echo Limited-00634; Myocardial Strain Imaging-63719; Doppler Limited-38225 Study Detail: The following Echo studies were [...] % Global Longitudinal Strain (GLS): -12.4 % [id number] Vikram Schofield MD Electronically signed on 02/13/2024 at 8:16:41 PM Final Normal [facility] CBC W Auto Differential pane l (Bld)on 02-09-2024 Basophils (Bld) [#/Vol] 0.06 10*3/uL [facility] Basophils/100 WBC (Bld) 0.8 % 0.0 - 2.0 % [facility] Eosinophils (Bld) [#/Vol] 0.20 10*3/uL [facility] Eosinophils/100 WBC (Bld) 2.8 % 0.0 - 6.0 % [facility] Erythrocyte distribution width (RBC) [Ratio] 13.1 % 11.5 - 14.5 % [facility] Hematocrit (Bld) [Volume fraction] 44.7 % 36.0 - 46.0 % [facility] Hemoglobin (Bld) [Mass/Vol] 14.5 g/dL 12.0 - 16.0 g/dL [facility] Immature granulocytes (Bld) [#/Vol] 0.02 10*3/uL [facility] Immature granulocytes/100 WBC (Bld) 0.3 % 0.0 - 0.9 % [facility] Comment on above: Immature Granulocyte Count (IG) includes promyelocytes, myelocytes and metamyelocytes but does not include bands. Percent differential counts (%) should be interpreted in the context of the absolute cell counts (cells/UL). Lymphocytes (Bld) [#/Vol] 1.63 10*3/uL [facility] Lymphocytes/100 WBC (Bld) 22.6 % 13 .0 - 44.0 % [facility] MCH (RBC) [Entitic mass] 28.3 pg 26. 0 - 34.0 pg [facility] MCHC (RBC) [Mass/Vol] 32.4 g/dL 32.0 - 36.0 g/dL [facility] MCV (RBC) [Entitic vol] 87 fL 80 - 100 fL [facility] Monocytes (Bld) [#/Vol] 0.39 10*3/uL [facility] Monocytes/100 WBC (Bld) 5.4 % 2.0 - 10.0 % [facility] Neutrophils (Bld) [#/Vol] 4.90 10*3/uL [facility] Comment on above: Percent differential counts (%) should be interpreted in the context of the absolute cell counts (cells/uL). Neutrophils/100 WBC (Bld) 68.1 % 40 .0 - 80.0 % [facility] Nucleated RBC/100 WBC (Bld) [Ratio] 0.0 % [facility] Platelets (Bld) [#/Vol] 279 10*3/uL [facility] RBC (Bld) [#/Vol] 5.12 10*6/uL [facility] WBC (Bld) [#/Vol] 7.2 10*3/uL [facility] Comprehensive metabolic 2000 panelon 02-09-2024 Albumin BCP dye [Mass/Vol] 5.2 g/dL High 3.4 - 5.0 g/dL [facility] ALP [Catalytic activity/Vol] 90 U/L 33 - 136 U/L [facility] ALT With P-5'-P [Catalytic activity/Vol] 11 U/L 7 - 45 U/L [facility] Comment on above: Patients treated wit h Sulfasalazine may generate falsely decreased results for ALT. Anion gap [Moles/Vol] 15 mmol/L 10 - 2 0 mmol/L [facility] AST With P-5'-P [Catalytic activity/Vol] 14 U/L 9 - 39 U/L [facility] Bilirubin [Mass/Vol] 0.6 mg/dL 0.0 - 1 .2 mg/dL [facility] Calcium [Mass/Vol] 9.6 mg/dL 8.6 - 10. 3 mg/dL [facility] Chloride [Moles/Vol] 98 mmol/L 98 - 10 7 mmol/L [facility] CO2 [Moles/Vol] 32 mmol/L 21 - 32 mmol/L [facility] Creatinine [Mass/Vol] 1.06 mg/dL High 0.50 - 1.05 mg/dL [facility] GFR/1.73 sq M.predicted among non-blacks MDRD (S/P/Bld) [Vol rate/Area] 57 mL/min/{1.73_m2} Low - PINF [facility] Comment on above: Calculations of jose a mated GFR are performed using the 2020 CKD-EPI Study Refit equation without the race variable for the IDMS-Traceable creatinine methods. https://jasn.asnjournals.org/content/22/ASN.20 36171615 Glucose [Mass/Vol] 102 mg/dL High 74 - 99 mg/dL [facility] Interpretation and review of laboratory results Abnormal [facility] Potassium [Moles/Vol] 4.9 mmol/L 3.5 - 5.3 mmol/L [facility] Protein [Mass/Vol] 8.0 g/dL 6.4 - 8.2 g/dL [facility] Sodium [Moles/Vol] 140 mmol/L 136 - 145 mmol/L [facility] Urea nitrogen [Mass/Vol] 18 mg/dL 6 - 23 mg/d L [facility] DBT Breast - bilateral diagn osticon 02-09-2024 [facility]iology [facility]narrative[facility] No Panel InformationOrdered By: Eugenia Bob on 02-09-2024 Interpretation and review of laboratory results Abnormal [facility] Work Phone: [facility] Work Phone: No Panel Informationon 02-08 1. [...] and her referring breast surgical oncologist, Dr. Mohr at the time of the exam. A pre-procedure form was filled out. BI-RADS CATEGORY: BI-RADS CATEGORY: 5 Highly Suggestive of Malignancy. Recommendation: Surgical Consultation and Biopsy. Recommended Date: Immediate. Laterality: Right. For any future breast imaging appointments, please call [phone]). MACRO: None Signed by: Eugenia Bob 02/09/2024 10:18 PM Dictation workstation: [id number] [facility] Interpreted By: Eugenia Bob, STUDY: BI MAMMO BILATERAL DIAGNOSTIC TOMOSYNTHESIS; BI US BREAST LIMITED BILATERAL; 02/09/2024 2:47 pm; 02/09/2024 3:29 pm ACCESSION NUMBER(S): [id number]; [id number] ORDERING CLINICIAN: THAI MOHR INDICATION: Recent diagnosis of multifocal invasive ductal [...] with elastography was performed by a registered life science technical officer in the bilateral breast and right axilla. [...] 2:47 pm; 02/09/2024 3:29 pm ACCESSION NUMBER(S): [id number]; [id number] ORDERING CLINICIAN: THAI MOHR INDICATION: Recent diagnosis of multifocal invasive ductal [...] with elastography was performed by a registered life science technical officer in the bilateral breast and right axilla. [...] biopsy-proven malignant right (more content not included)... [facility] Work Phone: Interpretation and review of laboratory results Normal [facility] PT Coag (PPP) [Time]on 02-08 INR Coag (PPP) [Relative time] 1.0 {INR} 0.9 - 1.1 [facility] Protime-INRon 02-09-2024 PT Coag (PPP) [Time] 11.0 s [facility] US Breast - bilateral limite don 02-09-2024 Radiology Study observation (narrative) [facility] Work Phone: aPTTon 02-09-2024 aPTT Coag (PPP) [Time] 33 s [facility] aPTT Coag (PPP) [Time]on The APTT is no longe r used for monitoring Unfractionated Heparin Therapy. For monitoring Heparin Therapy, use the Heparin Assay. [facility] Absolute lymphocyte countOrd ered By: Julianna Diaz on 01-04-2024 Lymphocytes Auto (Unsp spec) [#/Vol] 1.56 10*3/uL 0.83-4.51 [facility] Automated lymphocyte count a s percentage of total leukocytesOrdered By: Julianna Diaz on 01-04-2024 Lymphocytes/100 WBC Auto (Unsp spec) 23.4 % 19-41 [facility] Basophil percentageOrdered B y: Julianna Diaz on 01-04-2024 Basophils/100 WBC (Bld) 0.6 % 0-1 [facility] Bilirubin [Mass/Vol] 0.50 mg/dL 0.20-1.00 [facility] Comment on above: For patients on eltr ombopag therapy, use of Dimension [place] TBIL is not recommended. Chloride [Moles/Vol] 101 mmol/L 98-107 [facility] Eosinophils/100 WBC (Bld) 2.4 % 0-5 [facility] Glucose [Mass/Vol] 93 mg/dL 74-106 [facility] Hemoglobin (Bld) [Mass/Vol] 13.0 g/dL 12.0-15.0 [facility] Monocytes/100 WBC (Bld) 6.4 % 0-10 [facility] Neutrophils (Bld) [#/Vol] 4.5 10*3/uL 2.0-7.7 [facility] Neutrophils/100 WBC (Bld) 66.9 % 47-70 [facility] Potassium [Moles/Vol] 4.1 mmol/L 3.5-5.1 [facility] Protein [Mass/Vol] 8.4 g/dL 6.4-8.2 [facility] Sodium [Moles/Vol] 140 mmol/L 136-145 [facility] WBC (Bld) [#/Vol] 6.7 10*3/uL 4.4-11.0 [facility] Determination of erythrocyte mean corpuscular volume (MCV)Ordered By: Julianna Diaz on 01-04-2024 MCV (RBC) [Entitic vol] 87.7 fL 81-99 [facility] Erythrocyte distribution wid th ratioOrdered By: Julianna Diaz on 01-04-2024 Erythrocyte distribution width (RBC) [Ratio] 13.3 % 11.6-14.6 [facility] Erythrocyte distribution wid th standard deviationOrdered By: Julianna Diaz on 01-04-2024 Erythrocyte distribution width (RBC) [Entitic vol] 42.5 fL 35.1-43.9 [facility] Hematocrit Auto (Bld) [Volum e fraction]Ordered By: Julianna Diaz on 01-04-2024 Hematocrit (Bld) [Volume fraction] 40.8 % 37-47 [facility] Immature granulocytes/100 WB C Auto (Bld)Ordered By: Julianna Diaz on 01-04-2024 Immature granulocytes/100 WBC (Bld) 0.300 % 0.0-0.9 [facility] Comment on above: IG% - Immature Granu locytes (promyelocytes, myelocytes and metamyelocytes) > 1% indicates that a LEFT SHIFT is Present. Laboratory - Chemistry and C hemistry - challengeOrdered By: Julianna Diaz on 01-04-2024 Albumin/Globulin [Mass ratio] 1.1 {ratio} 0.9-2.4 [facility] ALP [Catalytic activity/Vol] 97 U/L 45-117 [facility] ALT [Catalytic activity/Vol] 22 U/L 13-56 [facility] CO2 [Moles/Vol] 33.0 mmol/L 21.0-32.0 [facility] Globulin (S) [Mass/Vol] 4.0 g/dL 2.2-4.2 [facility] Urea nitrogen/Creatinine [Mass ratio] 11.9 mg/mg 10-20 [facility] Laboratory - Hematology and Cell countsOrdered By: Julianna Diaz on 01-04-2024 MCH (RBC) [Entitic mass] 28.0 pg 27.0-32.0 [facility] MCHC (RBC) [Mass/Vol] 31.9 g/dL 32-36 [facility] Nucleated RBC/100 WBC (Bld) [Ratio] 0 % 0-5 [facility] Platelet mean volume (Bld) [Entitic vol] 9.5 fL 6.2-12.0 [facility] Platelets (Bld) [#/Vol] 258 10*3/uL 150-450 [facility] No Panel InformationOrdered By: Julianna Diaz on 01-04-2024 Miscellaneous Test Comment SEE SCANNED REPORT [facility] Estimated GFR (MDRD) Amer 64 mL/min >60 [facility] Comment on above: GFR Calc Estimated GFR (MDRD) Non-Af Amer 53 mL/min >60 [facility] Comment on above: Non- GFR Calc RBC Auto (Bld) [#/Vol]Ordere d By: Julianna Diaz on 01-04-2024 RBC (Bld) [#/Vol] 4.65 10*6/uL 4.2-5.4 [facility] Serum or plasma calcium robert urement (mass/volume)Ordered By: Julianna Diaz on 01-04-2024 Calcium [Mass/Vol] 8.9 mg/dL 8.5-10.1 [facility] Serum or plasma creatinine m easurement (mass/volume)Ordered By: Julianna Diaz on 01-04-2024 Creatinine [Mass/Vol] 1.09 mg/dL 0.55-1.02 [facility] Comment on above: The validity of the calculated GFR & GFRAA in patients over 70 years has not been determined. Clinical correlation is essential. Serum or plasma urea nitroge n measurement (mass/volume)Ordered By: Julianna Diaz on 01-04-2024 Urea nitrogen [Mass/Vol] 13 mg/dL 7-18 [facility] Thin prep Papanicolaou smear with manual screeningOrdered By: Julianna Diaz on 01-04-2024 Thin prep Papanicolaou smear with manual screening 4.4 g/dL 3.2-5.0 [facility] Thin prep Papanicolaou smear with manual screening 16 U/L 15-37 [facility] Thin prep Papanicolaou smear with manual screening 6 5-15 [facility] Laboratory - Hematology and Cell countson 11-24-2023 HbA1c (Bld) [Mass fraction] 5.9 % 4.2-6.[address] [facility] [address] ANGIOGRAPHY CHEST W/CONTR [place] 11-04-2023 CT [...] Sign Date: 11/04/2023 5:21:23 PM Ordering Provider: JEFFREY DESAI Normal [facility] ([place]) .Auto Diffon 10-26-2023 Basophil, Absolute 0.1 10 3/mcL Normal 0.0-0.2 [facility] ([place]) Comment on above: Performed By: #### P RO, ADIFF, CBC, ANEU, GFR, BMP #### [address] [address] Basophils/100 WBC (Bld) 1.2 % Normal 0.0-2.5 [facility] ([place]) Comment on above: Performed By: #### P RO, ADIFF, CBC, ANEU, GFR, BMP #### [address] [address] Eosinophil, Absolute 0.1 10 3/mcL Normal 0.0-0.4 [facility] ([place]) Comment on above: Performed By: #### P RO, ADIFF, CBC, ANEU, GFR, BMP #### [address] [address] Eosinophils/100 WBC (Bld) 2.4 % Normal 0.0-7.0 [facility] ([place]) Comment on above: Performed By: #### P RO, ADIFF, CBC, ANEU, GFR, BMP #### [address] [address] Lymphocyte, Absolute 1.3 10 3/mcL Normal 0.8-3.9 [facility] ([place]) Comment on above: Performed By: #### P RO, ADIFF, CBC, ANEU, GFR, BMP #### [address] [address] Lymphocytes/100 WBC (Bld) 22.1 % Normal 10.0-50.0 [facility] ([place]) Comment on above: Performed By: #### P RO, ADIFF, CBC, ANEU, GFR, BMP #### [address] [address] Monocyte, Absolute 0.3 10 3/mcL Normal 0.2-1.0 [facility] ([place]) Comment on above: Performed By: #### P RO, ADIFF, CBC, ANEU, GFR, BMP #### [address] [address] Monocytes/100 WBC (Bld) 5.8 % Normal 1.7-13.0 [facility] ([place]) Comment on above: Performed By: #### P RO, ADIFF, CBC, ANEU, GFR, BMP #### [address] [address] Neutrophils/100 WBC (Bld) 68.5 % Normal 37.0-80.0 [facility] ([place]) Comment on above: Performed By: #### P RO, ADIFF, CBC, ANEU, GFR, BMP #### [address] [address] .GFRon 10-26-2023 GFR 62 ml/min/1.73sqm Normal [facility] ([place]) Comment on above: Result Comment: GFR Population [...] FR, PRO, CMP, ADIFF, ANEU, CBC #### [address] [address] GFR Non- 51 ml/min/1.73sqm Normal [facility] ([place]) Comment on above: Result Comment: GFR Population [...] FR, PRO, CMP, ADIFF, ANEU, CBC #### [address] [address] .NEUABSon 10-26-2023 Neutrophil, Absolute 4.1 10 3/mcL Normal 2.9-6.2 [facility] ([place]) Comment on above: Performed By: #### P RO, ADIFF, CBC, ANEU, GFR, BMP #### [address] [address] BMPon 10-26-2023 BUN/Creatinine Ratio 13 ratio Normal 7-27 [facility] ([place]) Comment on above: Performed By: #### P RO, ADIFF, CBC, ANEU, GFR, BMP #### [address] [address] Calcium [Mass/Vol] 8.6 mg/dL Normal 8.4-10.2 [facility] ([place]) Comment on above: Performed By: #### P RO, ADIFF, CBC, ANEU, GFR, BMP #### [address] [address] Chloride [Moles/Vol] 103 mmol/L Normal 98-107 [facility] ([place]) Comment on above: Performed By: #### P RO, ADIFF, CBC, ANEU, GFR, BMP #### [address] [address] CO2 [Moles/Vol] 32 mmol/L High 23-31 [facility] ([place]) Comment on above: Performed By: #### P RO, ADIFF, CBC, ANEU, GFR, BMP #### [address] [address] Creatinine [Mass/Vol] 1.07 mg/dL High 0.55-1.02 [facility] ([place]) Comment on above: Performed By: #### P RO, ADIFF, CBC, ANEU, GFR, BMP #### [address] [address] Electrolyte Balance 8.0 mEq/L Normal 4.0-15.0 [facility] ([place]) Comment on above: Performed By: #### P RO, ADIFF, CBC, ANEU, GFR, BMP #### [address] [address] Glucose [Mass/Vol] 120 mg/dL High 80-115 [facility] ([place]) Comment on above: Performed By: #### P RO, ADIFF, CBC, ANEU, GFR, BMP #### [address] [address] Potassium [Moles/Vol] 4.5 mmol/L Normal 3.5-5.1 [facility] ([place]) Comment on above: Performed By: #### P RO, ADIFF, CBC, ANEU, GFR, BMP #### [address] [address] Sodium [Moles/Vol] 143 mmol/L Normal 136-145 [facility] ([place]) Comment on above: Performed By: #### P RO, ADIFF, CBC, ANEU, GFR, BMP #### [address] [address] Urea nitrogen [Mass/Vol] 14 mg/dL Normal 7-18 [facility] ([place]) Comment on above: Performed By: #### P RO, ADIFF, CBC, ANEU, GFR, BMP #### [address] [address] CBCon 10-26-2023 Erythrocyte distribution width (RBC) [Ratio] 13.6 % Normal 11.5-14.5 [facility]) Comment on above: Performed By: #### P RO, ADIFF, CBC, ANEU, GFR, BMP #### [address] [address] Hematocrit (Bld) [Volume fraction] 39.1 % Normal 37.0-47.0 [facility] ([place]) Comment on above: Performed By: #### P RO, ADIFF, CBC, ANEU, GFR, BMP #### [address] [address] Hgb 13.3 G/dL Normal 12.0-16.0 [facility] ([place]) Comment on above: Performed By: #### P RO, ADIFF, CBC, ANEU, GFR, BMP #### [address] [address] MCH (RBC) [Entitic mass] 29.1 pg Normal 27.0-31.2 [facility] ([place]) Comment on above: Performed By: #### P RO, ADIFF, CBC, ANEU, GFR, BMP #### [address] [address] MCHC 34.0 G/dL Normal 33.0-37.0 [facility] ([place]) Comment on above: Performed By: #### P RO, ADIFF, CBC, ANEU, GFR, BMP #### [address] [address] MCV (RBC) [Entitic vol] 85.6 fL Normal 80.0-94.0 [facility] ([place]) Comment on above: Performed By: #### P RO, ADIFF, CBC, ANEU, GFR, BMP #### [address] [address] Platelet 245 10 3/mcL Normal 130-400 [facility] ([place]) Comment on above: Performed By: #### P RO, ADIFF, CBC, ANEU, GFR, BMP #### [address] [address] Platelet mean volume (Bld) [Entitic vol] 7.8 fL Normal 7.4-10.4 [facility] ([place]) Comment on above: Performed By: #### P RO, ADIFF, CBC, ANEU, GFR, BMP #### [address] [address] RBC 4.57 10 6/mcL Normal 4.20-5.40 [facility] ([place]) Comment on above: Performed By: #### P RO, ADIFF, CBC, ANEU, GFR, BMP #### [address] [place], [place] [address] WBC 6.0 10 3/mcL Normal 4.6-10.8 [facility] ([place]) Comment on above: Performed By: #### P RO, ADIFF, CBC, ANEU, GFR, BMP #### [address] [place], [place] [address] LABORATORYOrdered By: SYSTEM SYSTEM on 10-26-2023 Basophil, [...] Comment on above: Interpretive Data: Melecio mchugh [employer] (CHEST, 1991, 102:312S-25S) [...] (PPP) [Time] 10.5 s Normal 9.0-14.2 [facility] ([place]) Comment on above: Performed By: #### G FR, PRO, CMP, ADIFF, ANEU, CBC #### [place] [address] PT International Ratio 0.9 Normal [facility] ([place]) Comment on above: Result Comment: [employer] (CHEST, 1992, 102:312S-25S) recommended therapeutic range for oral anticoagulant therapy is: LOW RISK: Prophylaxis of venous thrombosis INR: 2.0-3.0 Treatment of pulmonary embolism 2.0-3.0 Prevention of systemic embolism 2.0-3.0 HIGH RISK: Mechanical prosthetic valves 2.5-3.5 Performed By: #### G FR, PRO, CMP, ADIFF, ANEU, CBC #### [facility] [address] [place] [id number] Absolute lymphocyte countOrd ered By: Daniela Fallon on 08-13-2023 Lymphocytes Auto (Unsp spec) [#/Vol] 1.13 10*3/uL 0.83-4.51 [facility] Basophil percentageOrdered B y: Daniela Fallon on 08-13-2023 Basophils/100 WBC (Bld) 0.6 % 0-1 [facility] Bilirubin [Mass/Vol] 1.00 mg/dL 0.20-1.00 [facility] Comment on above: For patients on eltr ombopag therapy, use of Dimension [place] TBIL is not recommended. Chloride [Moles/Vol] 103 mmol/L 98-107 [facility] Cholesterol [Mass/Vol] 140 mg/dL <200 [facility] Comment on above: <200 mg/dL Desirable 200-240 mg/dL Borderline >240 mg/dL High Risk Eosinophils/100 WBC (Bld) 2.8 % 0-5 [facility] Glucose [Mass/Vol] 128 mg/dL 74-106 [facility] Comment on above: Fasting Glucose resu lt greater than or equal to 126 mg/dL suggests DIABETES MELLITUS per A.D.A. criteria. Neutrophils (Bld) [#/Vol] 3.3 10*3/uL 2.0-7.7 [facility] Neutrophils/100 WBC (Bld) 66.3 % 47-70 [facility] Potassium [Moles/Vol] 4.2 mmol/L 3.5-5.1 [facility] Protein [Mass/Vol] 7.6 g/dL 6.4-8.2 [facility] Sodium [Moles/Vol] 137 mmol/L 136-145 [facility] Triglyceride [Mass/Vol] 196 mg/dL <199 [facility] Comment on above: The drugs N-Acetylcy steine and Metamizole may falsely depress this assay.Serum Triglycerides Reference Interval Normal <150 mg/dL Borderline high 150 - 199 mg/dL High 200 - 499 mg/dL Very High > or = 500 mg/dL WBC (Bld) [#/Vol] 5.0 10*3/uL 4.4-11.0 [facility] Blood erythrocytes count (nu mber/volume)Ordered By: Daniela Fallon on 08-13-2023 RBC (Bld) [#/Vol] 4.54 10*6/uL 4.2-5.4 [facility] Blood hemoglobin measurement (mass/volume)Ordered By: Daniela Fallon on 08-13-2023 Hemoglobin (Bld) [Mass/Vol] 12.9 g/dL 12.0-15.0 [facility] Blood lymphocytes/100 leukoc ytesOrdered By: Daniela Fallon on 08-13-2023 Lymphocytes/100 WBC (Bld) 22.8 % 19-41 [facility] Blood monocytes/100 leukocyt esOrdered By: Daniela Fallon on 08-13-2023 Monocytes/100 WBC (Bld) 7.3 % 0-10 [facility] Blood platelet mean volumeOr dered By: Daniela Fallon on 08-13-2023 Platelet mean volume (Bld) [Entitic vol] 9.9 fL 6.2-12.0 [facility] Determination of erythrocyte mean corpuscular volume (MCV)Ordered By: Daniela Fallon on 08-13-2023 MCV (RBC) [Entitic vol] 89.6 fL 81-99 [facility] Hematocrit Auto (Bld) [Volum e fraction]Ordered By: Daniela Fallon on 08-13-2023 Hematocrit (Bld) [Volume fraction] 40.7 % 37-47 [facility] Laboratory - Chemistry and C hemistry - challengeOrdered By: Daniela Fallon on 08-13-2023 ALP [Catalytic activity/Vol] 95 U/L 45-117 [facility] ALT [Catalytic activity/Vol] 21 U/L 13-56 [facility] CO2 [Moles/Vol] 29.0 mmol/L 21.0-32.0 [facility] Globulin (S) [Mass/Vol] 3.7 g/dL 2.2-4.2 [facility] Urea nitrogen/Creatinine [Mass ratio] 15.3 mg/mg 10-20 [facility] Laboratory - Hematology and Cell countsOrdered By: Daniela Fallon on 08-13-2023 Erythrocyte distribution width (RBC) [Entitic vol] 44.4 fL 35.1-43.9 [facility] Erythrocyte distribution width (RBC) [Ratio] 13.6 % 11.6-14.6 [facility] Immature granulocytes/100 WBC (Bld) 0.200 % 0.0-0.9 [facility] Comment on above: IG% - Immature Granu locytes (promyelocytes, myelocytes and metamyelocytes) > 1% indicates that a LEFT SHIFT is Present. MCH (RBC) [Entitic mass] 28.4 pg 27.0-32.0 [facility] Nucleated RBC/100 WBC (Bld) [Ratio] 0 % 0-5 [facility] Laboratory - Hematology and Cell countson 08-13-2023 HbA1c (Bld) [Mass fraction] 5.8 % 4.2-6.3 [facility] MCHC Auto (RBC) [Mass/Vol]Or dered By: Daniela Fallon on 08-13-2023 MCHC (RBC) [Mass/Vol] 31.7 g/dL 32-36 [facility] No Panel InformationOrdered By: Daniela Fallon on 08-13-2023 Estimated GFR (MDRD) Amer 63 mL/min >60 [facility] Comment on above: GFR Calc Estimated GFR (MDRD) Non-Af Amer 52 mL/min >60 [facility] Comment on above: Non- GFR Calc Platelets bldOrdered By: Moncho Fallon on 08-13-2023 Platelets (Bld) [#/Vol] 258 10*3/uL 150-450 [facility] Serum or plasma albumin robert urement (mass/volume)Ordered By: Daniela Fallon on 08-13-2023 Albumin [Mass/Vol] 3.9 g/dL 3.2-5.0 [facility] Serum or plasma albumin/glob ulin mass ratioOrdered By: Daniela Fallon on 08-13-2023 Albumin/Globulin [Mass ratio] 1.1 {ratio} 0.9-2.4 [facility] Serum or plasma calcium robert urement (mass/volume)Ordered By: Daniela Fallon on 08-13-2023 Calcium [Mass/Vol] 8.6 mg/dL 8.5-10.1 [facility] Serum or plasma cholesterol in HDL measurement (mass/volume)Ordered By: Daniela Fallon on 08-13-2023 Cholesterol in HDL [Mass/Vol] 44 mg/dL >40 [facility] Comment on above: The drugs N-Acetylcy steine and Metamizole may falsely depress this assay. Reference Range HDL <40 mg/dL Low HDL Cholesterol HDL >or= 60 mg/dL High HDL Cholesterol Serum or plasma cholesterol in VLDL measurement (mass/volume)Ordered By: Daniela Fallon on 08-13-2023 Cholesterol in VLDL [Mass/Vol] 39 mg/dL 5-40 [facility] Serum or plasma creatinine m easurement (mass/volume)Ordered By: Danieal Fallon on 08-13-2023 Creatinine [Mass/Vol] 1.11 mg/dL 0.55-1.02 [facility] Comment on above: The validity of the calculated GFR & GFRAA in patients over 70 years has not been determined. Clinical correlation is essential. Serum or plasma low density lipoprotein (LDL) cholesterol measurement (mass/volume)Ordered By: Daniela Fallon on 08-13-2023 Cholesterol in LDL [Mass/Vol] 57 mg/dL 0-130 [facility] Serum or plasma urea nitroge n measurement (mass/volume)Ordered By: Daniela Fallon on 08-13-2023 Urea nitrogen [Mass/Vol] 17 mg/dL 7-18 [facility] Thin prep Papanicolaou smear with manual screeningOrdered By: Daniela Fallon on 08-13-2023 Thin prep Papanicolaou smear with manual screening 13 U/L 15-37 [facility] Thin prep Papanicolaou smear with manual screening 5 5-15 [facility] .Auto Diffon 07-05-2023 Basophil, Absolute 0.0 10 3/mcL Normal 0.0-0.3 [facility] ([place]) Comment on above: Performed By: #### G FR, PRO, CMP, ADIFF, ANEU, CBC #### [address] [address] Basophils/100 WBC (Bld) 0.9 % Normal 0.0-2.5 [facility] ([place]) Comment on above: Performed By: #### G FR, PRO, CMP, ADIFF, ANEU, CBC #### [address] [address] Eosinophil, Absolute 0.1 10 3/mcL Normal 0.0-0.7 [facility] ([place]) Comment on above: Performed By: #### G FR, PRO, CMP, ADIFF, ANEU, CBC #### [address] [address] Eosinophils/100 WBC (Bld) 2.6 % Normal 0.0-6.0 [facility] ([place]) Comment on above: Performed By: #### G FR, PRO, CMP, ADIFF, ANEU, CBC #### [address] [address] Lymphocyte, Absolute 1.1 10 3/mcL Normal 0.9-4.3 [facility] ([place]) Comment on above: Performed By: #### G FR, PRO, CMP, ADIFF, ANEU, CBC #### [address] [address] Lymphocytes/100 WBC (Bld) 22.3 % Normal 20.0-40.0 [facility] ([place]) Comment on above: Performed By: #### G FR, PRO, CMP, ADIFF, ANEU, CBC #### [address] [address] Monocyte, Absolute 0.3 10 3/mcL Normal 0.1-1.4 [facility] ([place]) Comment on above: Performed By: #### G FR, PRO, CMP, ADIFF, ANEU, CBC #### [address] [address] Monocytes/100 WBC (Bld) 6.4 % Normal 2.0-13.0 [facility] ([place]) Comment on above: Performed By: #### G FR, PRO, CMP, ADIFF, ANEU, CBC #### [address] [address] Neutrophils/100 WBC (Bld) 67.8 % Normal 50.0-75.0 [facility] ([place]) Comment on above: Performed By: #### G FR, PRO, CMP, ADIFF, ANEU, CBC #### [address] [address] .GFRon 07-05-2023 GFR >60 Normal [facility] ([place]) Comment on above: Result Comment: GFR Population [...] FR, PRO, CMP, ADIFF, ANEU, CBC #### [address] [address] GFR Non- 58 ml/min/1.73sqm Normal [facility] ([place]) Comment on above: Result Comment: GFR Population [...] FR, PRO, CMP, ADIFF, ANEU, CBC #### [place] [address] .NEUABSon 07-05-2023 Neutrophil, Absolute 3.4 10 3/mcL Normal 2.3-8.1 [facility] ([place]) Comment on above: Performed By: #### G FR, PRO, CMP, ADIFF, ANEU, CBC #### [place] [address] CBCon 07-05-2023 Erythrocyte distribution width (RBC) [Ratio] 13.8 % Normal 11.5-15.5 [facility] ([place]) Comment on above: Performed By: #### G FR, PRO, CMP, ADIFF, ANEU, CBC #### [place] [address] Hematocrit (Bld) [Volume fraction] 39.2 % Normal 34.0-46.0 [facility] ([place]) Comment on above: Performed By: #### G FR, PRO, CMP, ADIFF, ANEU, CBC #### [place] [address] Hgb 13.3 G/dL Normal 12.0-16.0 [facility] ([place]) Comment on above: Performed By: #### G FR, PRO, CMP, ADIFF, ANEU, CBC #### [place] [address] MCH (RBC) [Entitic mass] 29.3 pg Normal 27.0-33.0 [facility] ([place]) Comment on above: Performed By: #### G FR, PRO, CMP, ADIFF, ANEU, CBC #### [place] [address] MCHC 33.9 G/dL Normal 32.0-36.0 [facility] ([place]) Comment on above: Performed By: #### G FR, PRO, CMP, ADIFF, ANEU, CBC #### [place] [address] MCV (RBC) [Entitic vol] 86.4 fL Normal 80.0-99.0 [facility] ([place]) Comment on above: Performed By: #### G FR, PRO, CMP, ADIFF, ANEU, CBC #### [place] [address] Platelet 258 10 3/mcL Normal 150-450 [facility] ([place]) Comment on above: Performed By: #### G FR, PRO, CMP, ADIFF, ANEU, CBC #### [place] [address] Platelet mean volume (Bld) [Entitic vol] 7.8 fL Normal 6.6-10.5 [facility] ([place]) Comment on above: Performed By: #### G FR, PRO, CMP, ADIFF, ANEU, CBC #### [place] [address] RBC 4.54 10 6/mcL Normal 4.10-5.30 [facility] ([place]) Comment on above: Performed By: #### G FR, PRO, CMP, ADIFF, ANEU, CBC #### [place] [address] WBC 5.0 10 3/mcL Normal 4.5-10.8 [facility] ([place]) Comment on above: Performed By: #### G FR, PRO, CMP, ADIFF, ANEU, CBC #### [place] [address] CMPon 07-05-2023 Albumin Level 4.4 G/dL Normal 3.2-4.8 [facility] ([place]) Comment on above: Performed By: #### G FR, PRO, CMP, ADIFF, ANEU, CBC #### [place] [address] Albumin/Globulin [Mass ratio] 1.5 {ratio} Normal 0.9-1.6 [facility] ([place]) Comment on above: Performed By: #### G FR, PRO, CMP, ADIFF, ANEU, CBC #### [place] [address] ALP [Catalytic activity/Vol] 96 U/L Normal 38-126 [facility] ([place]) Comment on above: Performed By: #### G FR, PRO, CMP, ADIFF, ANEU, CBC #### [place] [address] ALT [Catalytic activity/Vol] 13 U/L Normal 10-49 [facility] ([place]) Comment on above: Performed By: #### G FR, PRO, CMP, ADIFF, ANEU, CBC #### [place] [id number] AST [Catalytic activity/Vol] 14 U/L Normal 8-34 [facility] ([place]) Comment on above: Performed By: #### G FR, PRO, CMP, ADIFF, ANEU, CBC #### [place] [address] Bili Total 0.50 mg/dL Normal 0.20-1.20 [facility] ([place]) Comment on above: Result Comment: Use of this assay is not recommended for patients undergoing treatment with eltrombopag due to the potential for falsely elevated results. Performed By: #### G FR, PRO, CMP, ADIFF, ANEU, CBC #### [place] [address] BUN/Creatinine Ratio 15.8 ratio Normal 10.0-22.0 [facility], later [facility] ([place]) Comment on above: Performed By: #### G FR, PRO, CMP, ADIFF, ANEU, CBC #### [place] [id number] Calcium [Mass/Vol] 9.2 mg/dL Normal 8.7-10.4 [facility] ([place]) Comment on above: Performed By: #### G FR, PRO, CMP, ADIFF, ANEU, CBC #### [place] [address] Chloride [Moles/Vol] 103 mmol/L Normal 98-110 [facility] ([place]) Comment on above: Performed By: #### G FR, PRO, CMP, ADIFF, ANEU, CBC #### [address] [address] CO2 [Moles/Vol] 29 mmol/L Normal 22-32 [facility] ([place]) Comment on above: Performed By: #### G FR, PRO, CMP, ADIFF, ANEU, CBC #### [place] [address] Creatinine [Mass/Vol] 0.95 mg/dL Normal 0.50-1.20 [facility] ([place]) Comment on above: Performed By: #### G FR, PRO, CMP, ADIFF, ANEU, CBC #### [place] [address] Electrolyte Balance 8.0 mEq/L Normal 4.0-15.0 [facility] ([place]) Comment on above: Performed By: #### G FR, PRO, CMP, ADIFF, ANEU, CBC #### [place] [id number] Globulin 2.9 G/dL Normal 1.5-3.8 [facility] ([place]) Comment on above: Performed By: #### G FR, PRO, CMP, ADIFF, ANEU, CBC #### [place] [id number] Glucose [Mass/Vol] 116 mg/dL High 82-115 [facility] ([place]) Comment on above: Performed By: #### G FR, PRO, CMP, ADIFF, ANEU, CBC #### [place] [address] Potassium [Moles/Vol] 4.3 mmol/L Normal 3.5-5.0 [facility] ([place]) Comment on above: Result Comment: Spec imen slightly hemolyzed. Performed By: #### G FR, PRO, CMP, ADIFF, ANEU, CBC #### [place] [id number] Sodium [Moles/Vol] 140 mmol/L Normal 136-145 [facility] ([place]) Comment on above: Performed By: #### G FR, PRO, CMP, ADIFF, ANEU, CBC #### [place] [id number] [place] [id number] Total Protein 7.3 G/dL Normal 5.7-8.2 [facility] ([place]) Comment on above: Result Comment: No te - New Reference Range in effect 20 Performed By: #### G FR, PRO, CMP, ADIFF, ANEU, CBC #### [place] [id number] [place] [id number] Urea nitrogen [Mass/Vol] 15.0 mg/dL Normal 8.0-22.0 [facility] ([place]) Comment on above: Performed By: #### G FR, PRO, CMP, ADIFF, ANEU, CBC #### [address] [address] LABORATORYOrdered By: SYSTEM SYSTEM on 07-05-2023 Albumin BCP dye [Mass/Vol] 4.4 G/dL Invalid Interpretation Code 3.2 - 4.8 G/dL ADM SS Albumin/Globulin [Mass ratio] 1.5 {ratio} Invalid Interpretation Code 0.9 - 1.6 ratio ADM SS ALP [Catalytic activity/Vol] 96 U/L Invalid Interpretation Code 38 - 126 U/L ADM SS ALT No additional P-5'-P [Catalytic activity/Vol] 13 U/L Invalid Interpretation Code 10 - 49 U/L ADM SS AST [Catalytic activity/Vol] 14 U/L Invalid Interpretation Code 8 - 34 U/L ADM SS Basophils (Bld) [#/Vol] 0.0 103/mcL Invalid Interpretation Code 0.0 - 0.3 10^3/mcL Workflow SS Basophils/100 WBC (Bld) 0.9 % Invalid Interpretation Code 0.0 - 2.5 % Workflow SS Bilirubin [Mass/Vol] 0.50 mg/dL Invalid Interpretation Code 0.20 - 1.20 mg/dL ADM SS Comment on above: Interpretive Data: U se of this assay is not recommended for patients undergoing treatment with eltrombopag due to the potential for falsely elevated results. Calcium [Mass/Vol] 9.2 mg/dL Invalid Interpretation Code 8.7 - 10.4 mg/dL ADM SS Chloride [Moles/Vol] 103 mmol/L Invalid Interpretation Code 98 - 110 mEq/L ADM SS CO2 [Moles/Vol] 29 mmol/L Invalid Interpretation Code 22 - 32 mEq/L AH ADM SS Creatinine [Mass/Vol] 0.95 mg/dL Invalid Interpretation Code 0.50 - 1.20 mg/dL AH ADM SS Electrolyte Balance 8.0 mEq/L Invalid Interpretation Code 4.0 - 15.0 mEq/L ADM SS Eosinophils (Bld) [#/Vol] 0.1 103/mcL Invali d Interpretation Code 0.0 - 0.7 10^3/mcL Workflow SS Eosinophils/100 WBC (Bld) 2.6 % Invali d Interpretation Code 0.0 - 6.0 % Workflow SS Erythrocyte distribution width (RBC) [Ratio] 13.8 % Invalid Interpretation Code 11.5 - 15.5 % Workflow SS GFR/1.73 sq M.predicted among blacks MDRD (S/P/Bld) [Vol rate/Area] ml/min/1.73sqm Invalid Interpretation Code [facility] S Comment on above: Interpretive Data: [...] [Vol rate/Area] 58 ml/min/1.73sqm Invalid Interpretation Code [facility] S Comment on above: Interpretive Data: [...] Invalid Interpretation Code 1.5 - 3.8 G/dL AH ADM SS Glucose [Mass/Vol] 116 mg/dL Invalid Interpretation Code 82 - 115 mg/dL AH ADM SS Hematocrit (Bld) [Volume fraction] 39.2 [...] Invalid Interpretation Code 0.1 - 1.4 10^3/mcL AH Workflow SS Monocytes/100 WBC (Bld) 6.4 % Invalid Interpretation Code 2.0 - 13.0 % AH Workflow SS Neutrophils (Bld) [#/Vol] 3.4 103/mcL Invali d Interpretation Code 2.3 - 8.1 10^3/mcL AH Workflow SS Neutrophils/100 WBC (Bld) 67.8 % Invali d Interpretation Code 50.0 - 75.0 % AH Workflow SS Platelet mean volume (Bld) [Entitic vol] 7.8 fL Invalid Interpretation Code 6.6 - 10.5 fL AH Workflow SS Platelets (Bld) [#/Vol] 258 103/mcL Invalid Interpretation Code 150 - 450 10^3/mcL AH Workflow SS Potassium [Moles/Vol] 4.3 mmol/L Invalid Interpretation Code 3.5 - 5.0 mEq/L AH ADM SS Comment on above: Result Comment: Spec imen slightly hemolyzed. Protein [Mass/Vol] 7.3 G/dL Invalid Interpretation Code 5.7 - 8.2 G/dL AH ADM SS Comment on above: Interpretive Data: * *Note - New Reference Range in effect 20 RBC (Bld) [#/Vol] 4.54 106/mcL Invalid Interpretation Code 4.10 - 5.30 10^6/mcL Workflow SS Sodium [Moles/Vol] 140 mmol/L Invalid Interpretation Code 136 - 145 mEq/L ADM SS Urea nitrogen [Mass/Vol] 15.0 mg/dL Invalid Interpretation Code 8.0 - 22.0 mg/dL ADM SS Urea nitrogen/Creatinine [Mass ratio] 15.8 ratio Invalid Interpretation Code 10.0 - 22.0 ratio ADM SS WBC (Bld) [#/Vol] 5.0 103/mcL Invalid Interpretation Code 4.5 - 10.8 10^3/mcL Workflow SS LABORATORYOrdered By: Mele Acosta on 07-05-2023 PT Coag (PPP) [Time] 11.1 s Invalid Interpretation Code 9.0 - 14.2 seconds [facility] SS Comment on above: Interpretive Data: E ffective 05/01/08, Protime results may be affected by some antibiotics (i.e. Ciprofloxacin, Azithromycin, Bactrim) which may potentiate the action of oral anticoagulants, with further increases in Protime/INR. PT International Ratio 1.0 ratio Invalid Interpretation Code [facility] Comment on above: Interpretive Data: Melecio mchugh [employer] (CHEST, 1991, 102:312S-25S) recommended therapeutic range for oral anticoagulant therapy is: LOW RISK: Prophylaxis of venous thrombosis INR: 2.0-3.0 Treatment of pulmonary embolism 2.0-3.0 Prevention of systemic embolism 2.0-3.0 HIGH RISK: Mechanical prosthetic valves 2.5-3.5 PROon 07-05-2023 INR Coag (PPP) [Relative time] 1.0 {INR} Normal [facility] ([place]) Comment on above: Result Comment: [employer] (CHEST, 1992, 102:312S-25S) recommended therapeutic range for oral anticoagulant therapy is: LOW RISK: Prophylaxis of venous thrombosis INR: 2.0-3.0 Treatment of pulmonary embolism 2.0-3.0 Prevention of systemic embolism 2.0-3.0 HIGH RISK: Mechanical prosthetic valves 2.5-3.5 Performed By: #### G FR, PRO, CMP, ADIFF, ANEU, CBC #### [facility] [address] [place] [id number] PT Coag (PPP) [Time] 11.1 s Normal 9.0-14.2 [facility], later [facility] ([place]) Comment on above: Result Comment: Effe ctive 05/01/08, Protime results may be affected by some antibiotics (i.e. Ciprofloxacin, Azithromycin, Bactrim) which may potentiate the action of oral anticoagulants, with further increases in Protime/INR. Performed By: #### G FR, PRO, CMP, ADIFF, ANEU, CBC #### [facility] [address] [place] [id number] XR CHEST 1 VIEWon 07-05-2023 XR CHEST [...] 3:05:45 PM Ordering Provider: JUAN F Shah [facility] ([place]) Absolute lymphocyte countOrd ered By: Dr. Fallon on 12-25-2022 Lymphocytes Auto (Unsp spec) [#/Vol] 1.11 10*3/uL 0.83-4.51 [facility] Basophil percentageOrdered B y: Dr. Fallon on 12-25-2022 Basophils/100 WBC (Bld) 1.1 % 0-1 [facility] Bilirubin [Mass/Vol] 0.50 mg/dL 0.20-1.00 [facility] Comment on above: For patients on eltr ombopag therapy, use of Dimension [place] TBIL is not recommended. Chloride [Moles/Vol] 101 mmol/L 98-107 [facility] Eosinophils/100 WBC (Bld) 2.9 % 0-5 [facility] Glucose [Mass/Vol] 112 mg/dL 74-106 [facility] Comment on above: Fasting Glucose resu lt from 100 to 125 mg/dL suggests IMPAIRED HOMEOSTASIS per A.D.A. criteria. Neutrophils (Bld) [#/Vol] 3.8 10*3/uL 2.0-7.7 [facility] Neutrophils/100 WBC (Bld) 69.1 % 47-70 [facility] Potassium [Moles/Vol] 4.3 mmol/L 3.5-5.1 [facility] Protein [Mass/Vol] 7.5 g/dL 6.4-8.2 [facility] Sodium [Moles/Vol] 139 mmol/L 136-145 [facility] WBC (Bld) [#/Vol] 5.5 10*3/uL 4.4-11.0 [facility] Blood erythrocytes count (nu mber/volume)Ordered By: Dr. Fallon on 12-25-2022 RBC (Bld) [#/Vol] 4.67 10*6/uL 4.2-5.4 [facility] Blood hemoglobin measurement (mass/volume)Ordered By: Dr. Fallon on 12-25-2022 Hemoglobin (Bld) [Mass/Vol] 13.5 g/dL 12.0-15.0 [facility] Blood lymphocytes/100 leukoc ytesOrdered By: Dr. Fallon on 12-25-2022 Lymphocytes/100 WBC (Bld) 20.3 % 19-41 [facility] Blood monocytes/100 leukocyt esOrdered By: Dr. Fallon on 12-25-2022 Monocytes/100 WBC (Bld) 6.2 % 0-10 [facility] Blood platelet mean volumeOr dered By: Dr. Fallon on 12-25-2022 Platelet mean volume (Bld) [Entitic vol] 9.9 fL 6.2-12.0 [facility] Determination of erythrocyte mean corpuscular volume (MCV)Ordered By: Dr. Fallon on 12-25-2022 MCV (RBC) [Entitic vol] 88.4 fL 81-99 [facility] Hematocrit Auto (Bld) [Volum e fraction]Ordered By: Dr. Fallon on 12-25-2022 Hematocrit (Bld) [Volume fraction] 41.3 % 37-47 [facility] Laboratory - Chemistry and C hemistry - challengeOrdered By: Dr. Fallon on 12-25-2022 ALP [Catalytic activity/Vol] 85 U/L 45-117 [facility] ALT [Catalytic activity/Vol] 27 U/L 13-56 [facility] CO2 [Moles/Vol] 28.0 mmol/L 21.0-32.0 [facility] Free T4 [Mass/Vol] 0.86 ng/dL 0.76-1.46 [facility] Globulin (S) [Mass/Vol] 3.4 g/dL 2.2-4.2 [facility] Urea nitrogen/Creatinine [Mass ratio] 11.6 mg/mg 10-20 [facility] Laboratory - Hematology and Cell countsOrdered By: Dr. Fallon on 12-25-2022 Erythrocyte distribution width (RBC) [Entitic vol] 43.8 fL 35.1-43.9 [facility] Erythrocyte distribution width (RBC) [Ratio] 13.5 % 11.6-14.6 [facility] Immature granulocytes/100 WBC (Bld) 0.400 % 0.0-0.9 [facility] Comment on above: IG% - Immature Granu locytes (promyelocytes, myelocytes and metamyelocytes) > 1% indicates that a LEFT SHIFT is Present. MCH (RBC) [Entitic mass] 28.9 pg 27.0-32.0 [facility] Nucleated RBC/100 WBC (Bld) [Ratio] 0 % 0-5 [facility] Laboratory - Hematology and Cell countson 12-25-2022 HbA1c (Bld) [Mass fraction] 5.6 % 4.2-6.3 [facility] MCHC Auto (RBC) [Mass/Vol]Or dered By: Dr. Fallon on 12-25-2022 MCHC (RBC) [Mass/Vol] 32.7 g/dL 32-36 [facility] No Panel InformationOrdered By: Dr. Fallon on 12-25-2022 Estimated GFR (MDRD) Amer 62 mL/min >60 [facility] Comment on above: GFR Calc Estimated GFR (MDRD) Non-Af Amer 51 mL/min >60 [facility] Comment on above: Non- GFR Calc Thyroid Stimulating Hormone (TSH) 1.67 uIU/mL 0.358-3.74 [facility] Platelets bldOrdered By: Dr. Fallon on 12-25-2022 Platelets (Bld) [#/Vol] 265 10*3/uL 150-450 [facility] Serum or plasma albumin robert urement (mass/volume)Ordered By: Dr. Fallon on 12-25-2022 Albumin [Mass/Vol] 4.1 g/dL 3.2-5.0 [facility] Serum or plasma albumin/glob ulin mass ratioOrdered By: Dr. Fallon on 12-25-2022 Albumin/Globulin [Mass ratio] 1.2 {ratio} 0.9-2.4 [facility] Serum or plasma calcium robert urement (mass/volume)Ordered By: Dr. Fallon on 12-25-2022 Calcium [Mass/Vol] 9.2 mg/dL 8.5-10.1 [facility] Serum or plasma creatinine m easurement (mass/volume)Ordered By: Dr. Fallon on 12-25-2022 Creatinine [Mass/Vol] 1.12 mg/dL 0.55-1.02 [facility] Comment on above: The validity of the calculated GFR & GFRAA in patients over 70 years has not been determined. Clinical correlation is essential. Serum or plasma urea nitroge n measurement (mass/volume)Ordered By: Dr. Fallon on 12-25-2022 Urea nitrogen [Mass/Vol] 13 mg/dL 7-18 [facility] Thin prep Papanicolaou smear with manual screeningOrdered By: Dr. Fallon on 12-25-2022 Thin prep Papanicolaou smear with manual screening 21 U/L 15-37 [facility] Thin prep Papanicolaou smear with manual screening 10 5-15 [facility] CNOVon 11-12-2022 CNOV Office Visit (UCWSTR ) ZORA NIXON ([id number]) 1955 F Date Time Provider Department 11/12/22 11:45 AM [facility] During your visit today, we recorded the following information about you: Temperature Pulse Respiration Blood pressure 97.8 degrees 60/minute 18/minute 124/74 Weight 67.8 kg Austin Hall APRN.[employer] 11/12/2022 5:47 PM Signed Subjective Zora Sampascual is a 67 year old female who [...] SURGICAL HISTORY OF 03-31-11 ICD placement at [place] PAST SURGICAL HISTORY OF 03-30-11 Heart cath at [place] PERC TRANSL COR ANGIO 03-14-10,04-07-10, 0 Percutaneous Transluminal Coronary Angio-2 stents [facility] LOCALZTN CLIP,PERC,DURING BREAST BX 07/25/07 LEFT RPLCMT [...] sounds: Mu (more content not included)... Normal [facility] XR DIGIT 3V FRONTAL/LAT/OBL LTon 11-12-2022 [...] radiographic abnormalities seen in the third digit. Pick Up: PSCB Transcribe Date/Time: Nov 12 2022 1:10P Dictated by : CICI RIVERA MD This examination was interpreted and the report reviewed and electronically signed by: CICI RIVERA MD on Nov 12 2022 1:12PM EST [id number] Normal [facility] XR DIGIT GENERAL 3V FRONTAL/ LAT/OBL LEFTon 11-12-[address] [facility] XR Finger - left AP and Late ral and obliqueon 11-12-2022 IMPRESSION: No acute radiographic abnormalities seen in the third digit. Pick Up: PSCB Transcribe Date/Time: Nov 12 2022 1:10P Dictated by : CICI RIVERA MD This examination was interpreted and the report reviewed and electronically signed by: CICI RIVERA MD on Nov 12 2022 1:12PM EST DIVISION OF RADIOLOGY * * *Final Report* [...] soft tissue swelling. DIVISION OF RADIOLOGY Provider, [facility] - 11/12/2022 * * *Final Report* * [...] radiographic abnormalities seen in the third digit. Pick Up: ANDRESSA Transcribe Date/Time: Nov 12 2022 1:10P Dictated by : CICI RIVERA MD This examination was interpreted and the report reviewed and electronically signed by: CICI RIVERA MD on Nov 12 2022 1:12PM EST [facility] Radiology Study observation (narrative) [facility] XR Finger - left AP and Late ral and obliqueOrdered By: Ccf Provider on 11-12-[address] [facility] LABORATORYOrdered By: SYSTEM SYSTEM on 10-22-2022 Albumin [...] JULISSA+probe Ql (Unsp spec) Detected Not Detect [facility] Work Phone: Comment on above: Normal Reference [...] Auto (Unsp spec) [#/Vol] 1.33 10*3/uL 0.83-4.51 [facility] Work Phone: Basophil percentageon 2021 Basophils/100 WBC (Bld) 1.0 % 0-1 [facility] Work Phone: Bilirubin [Mass/Vol] 0.70 mg/dL 0.20-1.00 [facility] Work Phone: Comment on above: For patients on eltr ombopag therapy, use of Dimension [place] TBIL is not recommended. Chloride [Moles/Vol] 102 mmol/L 98-107 [facility] Work Phone: Cholesterol [Mass/Vol] 157 mg/dL <200 [facility] Work Phone: Comment on above: <200 mg/dL Desirable 200-240 mg/dL Borderline >240 mg/dL High Risk Eosinophils/100 WBC (Bld) 2.3 % 0-5 [facility] Work Phone: Glucose [Mass/Vol] 108 mg/dL 74-106 [facility] Work Phone: Comment on above: Fasting Glucose resu lt from 100 to 125 mg/dL suggests IMPAIRED HOMEOSTASIS per A.D.A. criteria. Neutrophils (Bld) [#/Vol] 4.2 10*3/uL 2.0-7.7 [facility] Work Phone: Neutrophils/100 WBC (Bld) 68.2 % 47-70 [facility] Work Phone: Potassium [Moles/Vol] 4.9 mmol/L 3.5-5.1 [facility] Work Phone: Protein [Mass/Vol] 7.8 g/dL 6.4-8.2 [facility] Work Phone: Sodium [Moles/Vol] 138 mmol/L 136-145 [facility] Work Phone: Triglyceride [Mass/Vol] 195 mg/dL <199 [facility] Work Phone: Comment on above: The drugs N-Acetylcy steine and Metamizole may falsely depress this assay.Serum Triglycerides Reference Interval Normal <150 mg/dL Borderline high 150 - 199 mg/dL High 200 - 499 mg/dL Very High > or = 500 mg/dL WBC (Bld) [#/Vol] 6.2 10*3/uL 4.4-11.0 [facility] Work Phone: Blood erythrocytes count (nu mber/volume)on 05-27-2022 RBC (Bld) [#/Vol] 4.89 10*6/uL 4.2-5.4 [facility] Work Phone: Blood hemoglobin measurement (mass/volume)on 05-27-2022 Hemoglobin (Bld) [Mass/Vol] 14.5 g/dL 12.0-15.0 [facility] Work Phone: Blood lymphocytes/100 leukoc yteson 05-27-2022 Lymphocytes/100 WBC (Bld) 21.4 % 19-41 [facility] Work Phone: Blood monocytes/100 leukocyt eson 05-27-2022 Monocytes/100 WBC (Bld) 6.8 % 0-10 [facility] Work Phone: Blood platelet mean volumeon 05-27-2022 Platelet mean volume (Bld) [Entitic vol] 9.7 fL 6.2-12.0 [facility] Work Phone: Determination of erythrocyte mean corpuscular volume (MCV)on 05-27-2022 MCV (RBC) [Entitic vol] 87.7 fL 81-99 [facility] Work Phone: Hematocrit Auto (Bld) [Volum e fraction]on 05-27-2022 Hematocrit (Bld) [Volume fraction] 42.9 % 37-47 [facility] Work Phone: Laboratory - Chemistry and C hemistry - challengeon 05-27-2022 ALP [Catalytic activity/Vol] 77 U/L 45-117 [facility] Work Phone: ALT [Catalytic activity/Vol] 22 U/L 13-56 [facility] Work Phone: CO2 [Moles/Vol] 33.0 mmol/L 21.0-32.0 [facility] Work Phone: Globulin (S) [Mass/Vol] 3.6 g/dL 2.2-4.2 [facility] Work Phone: Urea nitrogen/Creatinine [Mass ratio] 16.1 mg/mg 10-20 [facility] Work Phone: Laboratory - Hematology and Cell countson 05-27-2022 Erythrocyte distribution width (RBC) [Entitic vol] 42.1 fL 35.1-43.9 [facility] Work Phone: Erythrocyte distribution width (RBC) [Ratio] 13.1 % 11.6-14.6 [facility] Work Phone: Immature granulocytes/100 WBC (Bld) 0.300 % 0.0-0.9 [facility] Work Phone: Comment on above: IG% - Immature Granu locytes (promyelocytes, myelocytes and metamyelocytes) > 1% indicates that a LEFT SHIFT is Present. MCH (RBC) [Entitic mass] 29.7 pg 27.0-32.0 [facility] Work Phone: Nucleated RBC/100 WBC (Bld) [Ratio] 0 % 0-5 [facility] Work Phone: MCHC Auto (RBC) [Mass/Vol]on 05-27-2022 MCHC (RBC) [Mass/Vol] 33.8 g/dL 32-36 [facility] Work Phone: No Panel Informationon 05-27 Estimated GFR (MDRD) Amer 62 mL/min >60 [facility] Work Phone: Comment on above: GFR Calc Estimated GFR (MDRD) Non-Af Amer 51 mL/min >60 [facility] Work Phone: Comment on above: Non- GFR Calc Platelets bldon 05-27-2022 Platelets (Bld) [#/Vol] 279 10*3/uL 150-450 [facility] Work Phone: Serum or plasma albumin robert urement (mass/volume)on 05-27-2022 Albumin [Mass/Vol] 4.2 g/dL 3.2-5.0 [facility] Work Phone: Serum or plasma albumin/glob ulin mass ratioon 05-27-2022 Albumin/Globulin [Mass ratio] 1.2 {ratio} 0.9-2.4 [facility] Work Phone: Serum or plasma calcium robert urement (mass/volume)on 05-27-2022 Calcium [Mass/Vol] 9.6 mg/dL 8.5-10.1 [facility] Work Phone: Serum or plasma cholesterol in HDL measurement (mass/volume)on 05-27-2022 Cholesterol in HDL [Mass/Vol] 52 mg/dL >40 [facility] Work Phone: Comment on above: The drugs N-Acetylcy steine and Metamizole may falsely depress this assay. Reference Range HDL <40 mg/dL Low HDL Cholesterol HDL >or= 60 mg/dL High HDL Cholesterol Serum or plasma cholesterol in VLDL measurement (mass/volume)on 05-27-2022 Cholesterol in VLDL [Mass/Vol] 39 mg/dL 5-40 [facility] Work Phone: Serum or plasma creatinine m easurement (mass/volume)on 05-27-2022 Creatinine [Mass/Vol] 1.12 mg/dL 0.55-1.02 [facility] Work Phone: Comment on above: The validity of the calculated GFR & GFRAA in patients over 70 years has not been determined. Clinical correlation is essential. Serum or plasma low density lipoprotein (LDL) cholesterol measurement (mass/volume)on 05-27-2022 Cholesterol in LDL [Mass/Vol] 66 mg/dL 0-130 [facility] Work Phone: Serum or plasma urea nitroge n measurement (mass/volume)on 05-27-2022 Urea nitrogen [Mass/Vol] 18 mg/dL 7-18 [facility] Work Phone: Thin prep Papanicolaou smear with manual screeningon 05-27-2022 Thin prep Papanicolaou smear with manual screening 15 U/L 15-37 [facility] Work Phone: Thin prep Papanicolaou smear with manual screening 3 5-15 [facility] Work Phone: Whole blood hemoglobin A1c/t otal hemoglobin ratio (mass fraction)on 05-27-2022 HbA1c (Bld) [Mass fraction] 5.9 % 3.8-5.6 [facility] Work Phone: Comment on above: Normal < 5.7 % Predi abetic 5.7 - 6.4 % Diabetic >or= 6.5 % Please note range changes. Laboratory - Hematology and Cell countson 02-24-2022 HbA1c (Bld) [Mass fraction] 5.8 % 4.2-6.3 [facility] Work Phone: Basophil percentageon 2021 Chloride [Moles/Vol] 103 mmol/L 98-107 [facility] Work Phone: Glucose [Mass/Vol] 91 mg/dL 74-106 [facility] Work Phone: Potassium [Moles/Vol] 3.9 mmol/L 3.5-5.1 [facility] Work Phone: Sodium [Moles/Vol] 138 mmol/L 136-145 [facility] Work Phone: Laboratory - Chemistry and C hemistry - challengeon 11-24-2021 CO2 [Moles/Vol] 30.0 mmol/L 21.0-32.0 [facility] Work Phone: Urea nitrogen/Creatinine [Mass ratio] 12.1 mg/mg 10-20 [facility] Work Phone: No Panel Informationon 11-24 Estimated GFR (MDRD) Amer 60 mL/min >60 [facility] Work Phone: Comment on above: GFR Calc Estimated GFR (MDRD) Non-Af Amer 49 mL/min >60 [facility] Work Phone: Comment on above: Non- GFR Calc Serum or plasma calcium robert urement (mass/volume)on 11-24-2021 Calcium [Mass/Vol] 8.8 mg/dL 8.5-10.1 [facility] Work Phone: Serum or plasma creatinine m easurement (mass/volume)on 11-24-2021 Creatinine [Mass/Vol] 1.16 mg/dL 0.55-1.02 [facility] Work Phone: Comment on above: The validity of the calculated GFR & GFRAA in patients over 70 years has not been determined. Clinical correlation is essential. Serum or plasma urea nitroge n measurement (mass/volume)on 11-24-2021 Urea nitrogen [Mass/Vol] 14 mg/dL 7-18 [facility] Work Phone: Thin prep Papanicolaou smear with manual screeningon 11-24-2021 Thin prep Papanicolaou smear with manual screening 5 5-15 [facility] Work Phone: Whole blood hemoglobin A1c/t otal hemoglobin ratio (mass fraction)on 11-24-2021 HbA1c (Bld) [Mass fraction] 5.8 % 3.8-5.6 [facility] Work Phone: Comment on above: Normal < [...] 08-18-2021 HbA1c (Bld) [Mass fraction] 5.9 % [facility] Work Phone: Vital Signs Date Time Vital Sign Value Performing Clinician Facility 08-07-2025 14:52-0400 Body height 152.[address] Daniela Fallon MD Work Phone: [facility] 08-07-2025 14:52-0400 Body mass index (BMI) [Ratio] 22 kg/m2 Dr. Daniela Fallon MD Work Phone: [facility] 08-07-2025 14:52-0400 Body temperature 97 [degF] Dr. Daniela Fallon MD Work Phone: [facility] 08-07-2025 14:52-0400 Body weight 51.[address] Daniela Fallon MD Work Phone: [facility] 08-07-2025 14:52-0400 Heart rate 65 /min Dr. Daniela Fallon MD Work Phone: [facility] 08-07-2025 14:52-0400 Respiratory rate 16 /min Dr. Daniela Fallon MD Work Phone: [facility] 08-07-2025 14:52-0400 SaO2% (BldA) [Mass fraction] 92 % Dr. Daniela Fallon MD Work Phone: [facility] 07-31-2025 11:27-0400 Body mass index (BMI) [Ratio] 21.87 kg/m2 Neli MCFLOOR LAYER HELPER Work Phone: [facility] 07-31-2025 11:27-0400 Body temperature 96.8 [degF] Neli Cox APRN-FLOOR LAYER HELPER Work Phone: [facility] 07-31-2025 11:27-0400 Body weight 50 kg Neli Cox CREDIT CONTROL MANAGER-FLOOR LAYER HELPER Work Phone: [facility] 07-31-2025 11:27-0400 Diastolic blood pressure 68 mm[Hg] Neli Cox CREDIT CONTROL MANAGER-FLOOR LAYER HELPER Work Phone: [facility] 07-31-2025 11:27-0400 Heart rate 60 /min Neli Cox CREDIT CONTROL MANAGER-FLOOR LAYER HELPER Work Phone: [facility] 07-31-2025 11:27-0400 Respiratory rate 19 /min Neli Cox CREDIT CONTROL MANAGER-FLOOR LAYER HELPER Work Phone: [facility] 07-31-2025 11:27-0400 SaO2% (BldA) [Mass fraction] 95 % Neli Cox CREDIT CONTROL MANAGER-FLOOR LAYER HELPER Work Phone: [facility] 07-31-2025 11:27-0400 Systolic blood pressure 147 mm[Hg] Neli Cox CREDIT CONTROL MANAGER-FLOOR LAYER HELPER Work Phone: [facility] 07-13-2025 10:04-0400 Body height 152.[address] Daniela Fallon MD Work Phone: [facility] 07-13-2025 10:04-0400 Body mass index (BMI) [Ratio] 22.1 kg/m2 Dr. Daniela Fallon MD Work Phone: [facility] 07-13-2025 10:04-0400 Body temperature 96.5 [degF] Dr. Daniela Fallon MD Work Phone: [facility] 07-13-2025 10:04-0400 Body weight 51.[address] Daniela Fallon MD Work Phone: [facility] 07-13-2025 10:04-0400 Diastolic blood pressure 72 mm[Hg] Dr. Daniela Fallon MD Work Phone: [facility] 07-13-2025 10:04-0400 Heart rate 78 /min Dr. Daniela Fallon MD Work Phone: [facility] 07-13-2025 10:04-0400 Respiratory rate 16 /min Dr. Daniela Fallon MD Work Phone: [facility] 07-13-2025 10:04-0400 SaO2% (BldA) [Mass fraction] 94 % Dr. Daniela Fallon MD Work Phone: [facility] 07-13-2025 10:04-0400 Systolic blood pressure 128 mm[Hg] Dr. Daniela Fallon MD Work Phone: [facility] 06-27-2025 09:54-0400 Body mass index (BMI) [Ratio] 22.88 kg/m2 Marcelo Davey MD Work Phone: [facility] 06-27-2025 09:54-0400 Body temperature 97.81 [degF] Marcelo Davey MD Work Phone: [facility] 06-27-2025 09:54-0400 Body weight 52.3 kg Marcelo Davey MD Work Phone: [facility] 06-27-2025 09:54-0400 Diastolic blood pressure 67 mm[Hg] Marcelo Davey MD Work Phone: [facility] 06-27-2025 09:54-0400 Heart rate 68 /min Marcelo Davey MD Work Phone: [facility] 06-27-2025 09:54-0400 Respiratory rate 18 /min Marcelo Davey MD Work Phone: [facility] 06-27-2025 09:54-0400 SaO2% (BldA) [Mass fraction] 97 % Marcelo Davey MD Work Phone: [facility] 06-27-2025 09:54-0400 Systolic blood pressure 148 mm[Hg] Marcelo Davey MD Work Phone: [facility] 05-16-2025 09:16-0400 Body mass index (BMI) [Ratio] 22.82 kg/m2 Neli Cox CREDIT CONTROL MANAGER-FLOOR LAYER HELPER Work Phone: [facility] 05-16-2025 09:16-0400 Body temperature 97.5 [degF] Neli Cox CREDIT CONTROL MANAGER-FLOOR LAYER HELPER Work Phone: [facility] 05-16-2025 09:16-0400 Body weight 52.16 kg Neli Cox CREDIT CONTROL MANAGER-FLOOR LAYER HELPER Work Phone: [facility] 05-16-2025 09:16-0400 Diastolic blood pressure 73 mm[Hg] Neli Cox CREDIT CONTROL MANAGER-FLOOR LAYER HELPER Work Phone: [facility] 05-16-2025 09:16-0400 Heart rate 64 /min Neli Cox CREDIT CONTROL MANAGER-FLOOR LAYER HELPER Work Phone: [facility] 05-16-2025 09:16-0400 SaO2% (BldA) [Mass fraction] 94 % Neli Cox CREDIT CONTROL MANAGER-FLOOR LAYER HELPER Work Phone: [facility] 05-16-2025 09:16-0400 Systolic blood pressure 133 mm[Hg] Neli Cox CREDIT CONTROL MANAGER-FLOOR LAYER HELPER Work Phone: [facility] 05-03-2025 09:35-0400 Body mass index (BMI) [Ratio] 22.94 kg/m2 Yanyori Rodrigesper CREDIT CONTROL MANAGER-FLOOR LAYER HELPER Work Phone: [facility] 05-03-2025 09:35-0400 Body temperature 97.3 [degF] Yany Page CREDIT CONTROL MANAGER-FLOOR LAYER HELPER Work Phone: [facility] 05-03-2025 09:35-0400 Body weight 52.44 kg Yany Page CREDIT CONTROL MANAGER-FLOOR LAYER HELPER Work Phone: [facility] 05-03-2025 09:35-0400 Diastolic blood pressure 64 mm[Hg] Yany Page CREDIT CONTROL MANAGER-FLOOR LAYER HELPER Work Phone: [facility] 05-03-2025 09:35-0400 Heart rate 71 /min Yany Page CREDIT CONTROL MANAGER-FLOOR LAYER HELPER Work Phone: [facility] 05-03-2025 09:35-0400 Respiratory rate 16 /min Yany Page CREDIT CONTROL MANAGER-FLOOR LAYER HELPER Work Phone: [facility] 05-03-2025 09:35-0400 SaO2% (BldA) [Mass fraction] 96 % Yany Page CREDIT CONTROL MANAGER-FLOOR LAYER HELPER Work Phone: [facility] 05-03-2025 09:35-0400 Systolic blood pressure 122 mm[Hg] Yany Page CREDIT CONTROL MANAGER-FLOOR LAYER HELPER Work Phone: [facility] 04-18-2025 21:57-0400 Body temperature 98 [degF] Dr. Daniela Fallon MD Work Phone: [facility] 04-18-2025 21:57-0400 Diastolic blood pressure 63 mm[Hg] Dr. Daniela Fallon MD Work Phone: [facility] 04-18-2025 21:57-0400 Heart rate 70 /min Dr. Daniela Fallon MD Work Phone: [facility] 04-18-2025 21:57-0400 Respiratory rate 16 /min Dr. Daniela Fallon MD Work Phone: [facility] 04-18-2025 21:57-0400 SaO2% (BldA) [Mass fraction] 98 % Dr. Daniela Fallon MD Work Phone: [facility] 04-18-2025 21:57-0400 Systolic blood pressure 133 mm[Hg] Dr. Daniela Fallon MD Work Phone: [facility] 04-18-2025 16:20-0400 Body height 152.[address] Daniela Fallon MD Work Phone: [facility] 04-18-2025 16:20-0400 Body mass index (BMI) [Ratio] 22.8 kg/m2 Dr. Daniela Fallon MD Work Phone: [facility] 04-18-2025 16:20-0400 Body weight 53.[address] Daniela Fallon MD Work Phone: [facility] 04-05-2025 14:27-0400 Body height 152.[address] Daniela Fallon MD Work Phone: [facility] 04-05-2025 14:27-0400 Body mass index (BMI) [Ratio] 23.6 kg/m2 Dr. Daniela Fallon MD Work Phone: [facility] 04-05-2025 14:27-0400 Body temperature 96.6 [degF] Dr. Daniela Fallon MD Work Phone: [facility] 04-05-2025 14:27-0400 Body weight 54.[address] Daniela Fallon MD Work Phone: [facility] 04-05-2025 14:27-0400 Diastolic blood pressure 58 mm[Hg] Dr. Daniela Fallon MD Work Phone: [facility] 04-05-2025 14:27-0400 Heart rate 81 /min Dr. Daniela Fallon MD Work Phone: [facility] 04-05-2025 14:27-0400 Respiratory rate 12 /min Dr. Daniela Fallon MD Work Phone: [facility] 04-05-2025 14:27-0400 SaO2% (BldA) [Mass fraction] 95 % Dr. Daniela Fallon MD Work Phone: [facility] 04-05-2025 14:27-0400 Systolic blood pressure 104 mm[Hg] Dr. Daniela Fallon MD Work Phone: [facility] 03-28-2025 10:23-0400 Body height 151.9 cm Marcelo Davey MD Work Phone: [facility] 03-28-2025 10:23-0400 Body mass index (BMI) [Ratio] 23.45 kg/m2 Marcelo Davey MD Work Phone: [facility] 03-28-2025 10:23-0400 Body temperature 97.2 [degF] Marcelo Davey MD Work Phone: [facility] 03-28-2025 10:23-0400 Body weight 54.1 kg Marcelo Davey MD Work Phone: [facility] 03-28-2025 10:23-0400 Diastolic blood pressure 69 mm[Hg] Marcelo Davey MD Work Phone: [facility] 03-28-2025 10:23-0400 Heart rate 61 /min Marcelo Davey MD Work Phone: [facility] 03-28-2025 10:23-0400 SaO2% (BldA) [Mass fraction] 94 % Marcelo Davey MD Work Phone: [facility] 03-28-2025 10:23-0400 Systolic blood pressure 157 mm[Hg] Marcelo Davey MD Work Phone: [facility] 02-14-2025 10:30-0400 Body mass index (BMI) [Ratio] 25.04 kg/m2 Neli Cox CREDIT CONTROL MANAGER-FLOOR LAYER HELPER Work Phone: [facility] 02-14-2025 10:30-0400 Body temperature 97.5 [degF] Neli Cox CREDIT CONTROL MANAGER-FLOOR LAYER HELPER Work Phone: [facility] 02-14-2025 10:30-0400 Body weight 57.24 kg Neli Cox CREDIT CONTROL MANAGER-FLOOR LAYER HELPER Work Phone: [facility] 02-14-2025 10:30-0400 Diastolic blood pressure 75 mm[Hg] Neli Miller CREDIT CONTROL MANAGER-FLOOR LAYER HELPER Work Phone: [facility] 02-14-2025 10:30-0400 Heart rate 62 /min Neli Cox CREDIT CONTROL MANAGER-FLOOR LAYER HELPER Work Phone: [facility] 02-14-2025 10:30-0400 SaO2% (BldA) [Mass fraction] 96 % Neli Cox CREDIT CONTROL MANAGER-FLOOR LAYER HELPER Work Phone: [facility] 02-14-2025 10:30-0400 Systolic blood pressure 135 mm[Hg] Neli Cox CREDIT CONTROL MANAGER-FLOOR LAYER HELPER Work Phone: [facility] 02-06-2025 13:04-0400 Body height 152.[address] Daniela Fallon MD Work Phone: [facility] 02-06-2025 13:04-0400 Body mass index (BMI) [Ratio] 24.4 kg/m2 Dr. Daniela Fallon MD Work Phone: [facility] 02-06-2025 13:04-0400 Body temperature 97.6 [degF] Dr. Daniela Fallon MD Work Phone: [facility] 02-06-2025 13:04-0400 Body weight 56.[address] Daniela Fallon MD Work Phone: [facility] 02-06-2025 13:04-0400 Diastolic blood pressure 62 mm[Hg] Dr. Daniela Fallon MD Work Phone: [facility] 02-06-2025 13:04-0400 Heart rate 74 /min Dr. Daniela Fallon MD Work Phone: [facility] 02-06-2025 13:04-0400 Respiratory rate 14 /min Dr. Daniela Fallon MD Work Phone: [facility] 02-06-2025 13:04-0400 SaO2% (BldA) [Mass fraction] 96 % Dr. Daniela Fallon MD Work Phone: [facility] 02-06-2025 13:04-0400 Systolic blood pressure 114 mm[Hg] Dr. Daniela Fallon MD Work Phone: [facility] 01-03-2025 08:58-0400 Body mass index (BMI) [Ratio] 24 kg/m2 Marcelo Davey MD Work Phone: [facility] 01-03-2025 08:58-0400 Body temperature 96.8 [degF] Marcelo Davey MD Work Phone: [facility] 01-03-2025 08:58-0400 Body weight 55.95 kg Marcelo Davey MD Work Phone: [facility] 01-03-2025 08:58-0400 Diastolic blood pressure 67 mm[Hg] Marcelo Davey MD Work Phone: [facility] 01-03-2025 08:58-0400 Heart rate 64 /min Marcelo Davey MD Work Phone: [facility] 01-03-2025 08:58-0400 SaO2% (BldA) [Mass fraction] 95 % Marcelo Davey MD Work Phone: [facility] 01-03-2025 08:58-0400 Systolic blood pressure 138 mm[Hg] Marcelo Davey MD Work Phone: [facility] 12-22-2024 10:43-0500 Body height 152.[address] Daniela Fallon MD Work Phone: [facility] 12-22-2024 10:43-0500 Body mass index (BMI) [Ratio] 25.2 kg/m2 Dr. Daniela Fallon MD Work Phone: [facility] 12-22-2024 10:43-0500 Body temperature 97.5 [degF] Dr. Daniela Fallon MD Work Phone: [facility] 12-22-2024 10:43-0500 Body weight 58.[address] Daniela Fallon MD Work Phone: [facility] 12-22-2024 10:43-0500 Diastolic blood pressure 64 mm[Hg] Dr. Daniela Fallon MD Work Phone: [facility] 12-22-2024 10:43-0500 Heart rate 67 /min Dr. Daniela Fallon MD Work Phone: [facility] 12-22-2024 10:43-0500 Respiratory rate 12 /min Dr. Daniela Fallon MD Work Phone: [facility] 12-22-2024 10:43-0500 SaO2% (BldA) [Mass fraction] 92 % Dr. Daniela Fallon MD Work Phone: [facility] 12-22-2024 10:43-0500 Systolic blood pressure 118 mm[Hg] Dr. Daniela Fallon MD Work Phone: [facility] 12-15-2024 13:43-0500 Body temperature 97.6 [degF] Dr. Daniela Fallon MD Work Phone: [facility] 12-15-2024 13:43-0500 Diastolic blood pressure 45 mm[Hg] Dr. Daniela Fallon MD Work Phone: [facility] 12-15-2024 13:43-0500 Heart rate 80 /min Dr. Daniela Fallon MD Work Phone: [facility] 12-15-2024 13:43-0500 Respiratory rate 16 /min Dr. Daniela Fallon MD Work Phone: [facility] 12-15-2024 13:43-0500 SaO2% (BldA) [Mass fraction] 96 % Dr. Daniela Fallon MD Work Phone: [facility] 12-15-2024 13:43-0500 Systolic blood pressure 149 mm[Hg] Dr. Daniela Fallon MD Work Phone: [facility] 12-15-2024 03:51-0500 Body mass index (BMI) [Ratio] 26.4 kg/m2 Dr. Daniela Fallon MD Work Phone: [facility] 12-15-2024 03:51-0500 Body weight 61.[address] Daniela Fallon MD Work Phone: [facility] 12-13-2024 09:00-0500 Inhaled oxygen flow rate 2 L/min Dr. Daniela Fallon MD Work Phone: [facility] 09-27-2024 11:23-0500 Body mass index (BMI) [Ratio] 26.56 kg/m2 Cayden Bae MD Work Phone: [facility] 09-27-2024 11:23-0500 Body temperature 95.5 [degF] Cayden Bae MD Work Phone: [facility] 09-27-2024 11:23-0500 Body weight 61.69 kg Cayden Bae MD Work Phone: [facility] 09-27-2024 11:23-0500 Diastolic blood pressure 74 mm[Hg] Cayden Bae MD Work Phone: [facility] 09-27-2024 11:23-0500 Heart rate 59 /min Cayden Bae MD Work Phone: [facility] 09-27-2024 11:23-0500 Respiratory rate 18 /min Cayden Bae MD Work Phone: [facility] 09-27-2024 11:23-0500 SaO2% (BldA) [Mass fraction] 95 % Cayden Bae MD Work Phone: [facility] 09-27-2024 11:23-0500 Systolic blood pressure 121 mm[Hg] Cayden Bae MD Work Phone: [facility] 09-24-2024 19:45-0500 Body temperature 98.7 [degF] Dr. Daniela Fallon MD Work Phone: [facility] 09-24-2024 19:45-0500 Diastolic blood pressure 90 mm[Hg] Dr. Daniela Fallon MD Work Phone: [facility] 09-24-2024 19:45-0500 Heart rate 65 /min Dr. Daniela Fallon MD Work Phone: [facility] 09-24-2024 19:45-0500 Respiratory rate 14 /min Dr. Daniela Fallon MD Work Phone: [facility] 09-24-2024 19:45-0500 SaO2% (BldA) [Mass fraction] 94 % Dr. Daniela Fallon MD Work Phone: [facility] 09-24-2024 19:45-0500 Systolic blood pressure 122 mm[Hg] Dr. Daniela Fallon MD Work Phone: [facility] 09-24-2024 15:00-0500 Body mass index (BMI) [Ratio] 27.5 kg/m2 Dr. Daniela Fallon MD Work Phone: [facility] 09-24-2024 15:00-0500 Body weight [address] Daniela Fallon MD Work Phone: [facility] 09-20-2024 10:29-0500 Body mass index (BMI) [Ratio] 26.16 kg/m2 Marcelo Davey MD Work Phone: [facility] 09-20-2024 10:29-0500 Body temperature 97.81 [degF] Marcelo Davey MD Work Phone: [facility] 09-20-2024 10:29-0500 Body weight 60.75 kg Marcelo Davey MD Work Phone: [facility] 09-20-2024 10:29-0500 Diastolic blood pressure 73 mm[Hg] Marcelo Davey MD Work Phone: [facility] 09-20-2024 10:29-0500 Heart rate 69 /min Marcelo Davey MD Work Phone: [facility] 09-20-2024 10:29-0500 Systolic blood pressure 145 mm[Hg] Marcelo Davey MD Work Phone: [facility] 08-09-2024 10:00-0400 Body temperature 95.5 [degF] Ruel Lozano MD Work Phone: [facility] 08-09-2024 10:00-0400 Diastolic blood pressure 67 mm[Hg] Ruel Lozano MD Work Phone: [facility] 08-09-2024 10:00-0400 Heart rate 84 /min Ruel Lozano MD Work Phone: [facility] 08-09-2024 10:00-0400 Respiratory rate 17 /min Ruel Lozano MD Work Phone: [facility] 08-09-2024 10:00-0400 SaO2% (BldA) [Mass fraction] 95 % Ruel Lozano MD Work Phone: [facility] 08-09-2024 10:00-0400 Systolic blood pressure 134 mm[Hg] Ruel Lozano MD Work Phone: [facility] 08-09-2024 01:10-0400 Body mass index (BMI) [Ratio] 26.74 kg/m2 Ruel Lozano MD Work Phone: [facility] 08-09-2024 01:10-0400 Body weight 62.1 kg Ruel Lozano MD Work Phone: [facility] 08-03-2024 15:14-0400 Body temperature 37 Ruel Lozano MD Work Phone: [facility] 08-03-2024 15:14-0400 SaO2% (BldA) [Mass fraction] 99 % Ruel Lozano MD Work Phone: [facility] 08-03-2024 04:53-0400 Body temperature 37 Ruel Lozano MD Work Phone: [facility] 08-03-2024 04:53-0400 SaO2% (BldA) [Mass fraction] 100 % Ruel Lozano MD Work Phone: [facility] 08-03-2024 03:34-0400 Body temperature 37 Ruel Lozano MD Work Phone: [facility] 08-03-2024 03:34-0400 SaO2% (BldA) [Mass fraction] 100 % Ruel Lozano MD Work Phone: [facility] 08-02-2024 17:16-0400 Body temperature 37 Ruel Lozano MD Work Phone: [facility] 08-02-2024 17:16-0400 SaO2% (BldA) [Mass fraction] 99 % Ruel Lozano MD Work Phone: [facility] 08-02-2024 15:06-0400 Body temperature 37 Ruel Lozano MD Work Phone: [facility] 08-02-2024 15:06-0400 SaO2% (BldA) [Mass fraction] 99 % Ruel Lozano MD Work Phone: [facility] 08-02-2024 12:29-0400 Body temperature 37 Ruel Lozano MD Work Phone: [facility] 08-02-2024 12:29-0400 SaO2% (BldA) [Mass fraction] 97 % Ruel Lozano MD Work Phone: [facility] 08-02-2024 11:10-0400 Body temperature 37 Ruel Lozano MD Work Phone: [facility] 08-02-2024 11:10-0400 SaO2% (BldA) [Mass fraction] 99 % Ruel Lozano MD Work Phone: [facility] 08-02-2024 10:19-0400 Body temperature 37 Ruel Lozano MD Work Phone: [facility] 08-02-2024 10:19-0400 SaO2% (BldA) [Mass fraction] 98 % Ruel Lozano MD Work Phone: [facility] 08-02-2024 08:31-0400 Body temperature 37 Ruel Lozano MD Work Phone: [facility] 08-02-2024 08:31-0400 SaO2% (BldA) [Mass fraction] 99 % Ruel Lozano MD Work Phone: [facility] 08-02-2024 06:28-0400 Body temperature 37 Ruel Lozano MD Work Phone: [facility] 08-02-2024 06:28-0400 SaO2% (BldA) [Mass fraction] 94 % Ruel Lozano MD Work Phone: [facility] 08-02-2024 06:20-0400 Body temperature 37 Ruel Lozano MD Work Phone: [facility] 08-02-2024 06:18-0400 Body temperature 37 Ruel Lozano MD Work Phone: [facility] 08-02-2024 00:44-0400 Body temperature 37 Ruel Lozano MD Work Phone: [facility] 08-02-2024 00:28-0400 Body temperature 37 Ruel Lozano MD Work Phone: [facility] 08-02-2024 00:28-0400 SaO2% (BldA) [Mass fraction] 95 % Ruel Lozano MD Work Phone: [facility] 08-01-2024 23:01-0400 Body temperature 37 Ruel Lozano MD Work Phone: [facility] 08-01-2024 23:01-0400 SaO2% (BldA) [Mass fraction] 95 % Ruel Lozano MD Work Phone: [facility] 08-01-2024 21:09-0400 Body temperature 37 Ruel Lozano MD Work Phone: [facility] 08-01-2024 21:09-0400 SaO2% (BldA) [Mass fraction] 97 % Ruel Lozano MD Work Phone: [facility] 08-01-2024 18:06-0400 Body temperature 37 Ruel Lozano MD Work Phone: [facility] 08-01-2024 18:06-0400 SaO2% (BldA) [Mass fraction] 97 % Ruel Lozano MD Work Phone: [facility] 08-01-2024 17:36-0400 Body temperature 37 Ruel Lozano MD Work Phone: [facility] 08-01-2024 17:36-0400 SaO2% (BldA) [Mass fraction] 95 % Ruel Lozano MD Work Phone: [facility] 08-01-2024 15:02-0400 Body temperature 37 Ruel Lozano MD Work Phone: [facility] 08-01-2024 15:02-0400 SaO2% (BldA) [Mass fraction] 100 % Ruel Lozano MD Work Phone: [facility] 08-01-2024 13:18-0400 Body temperature 37.0 [facility] Comment on above: NOTE: Patient Results are Not Corrected for Temperature 08-01-2024 13:18-0400 SaO2% (BldA) [Mass fraction] 100 % [facility] 08-01-2024 05:50-0400 Body height 152.4 cm Ruel Lozano MD Work Phone: [facility] 07-07-2024 10:45-0400 Body height 152.4 cm Ruel Lozano MD Work Phone: [facility] 07-07-2024 10:45-0400 Body mass index (BMI) [Ratio] 28.28 kg/m2 Ruel Lozano MD Work Phone: [facility] 07-07-2024 10:45-0400 Body weight 65.68 kg Ruel Lozano MD Work Phone: [facility] 07-07-2024 10:45-0400 Diastolic blood pressure 81 mm[Hg] Ruel Lozano MD Work Phone: [facility] 07-07-2024 10:45-0400 Heart rate 67 /min Ruel Lozano MD Work Phone: [facility] 07-07-2024 10:45-0400 SaO2% (BldA) [Mass fraction] 93 % Ruel Lozano MD Work Phone: [facility] 07-07-2024 10:45-0400 Systolic blood pressure 142 mm[Hg] Ruel Lozano MD Work Phone: [facility] 06-28-2024 11:50-0400 Body mass index (BMI) [Ratio] 27.8 kg/m2 Cayden Bae MD Work Phone: [facility] 06-28-2024 11:50-0400 Body temperature 97.2 [degF] Cayden Bae MD Work Phone: [facility] 06-28-2024 11:50-0400 Body weight 64.82 kg Cayden Bae MD Work Phone: [facility] 06-28-2024 11:50-0400 Diastolic blood pressure 73 mm[Hg] Cayden Bae MD Work Phone: [facility] 06-28-2024 11:50-0400 Heart rate 67 /min Cayden Bae MD Work Phone: [facility] 06-28-2024 11:50-0400 Respiratory rate 16 /min Cayden Bae MD Work Phone: [facility] 06-28-2024 11:50-0400 SaO2% (BldA) [Mass fraction] 97 % Cayden Bae MD Work Phone: [facility] 06-28-2024 11:50-0400 Systolic blood pressure 122 mm[Hg] Cayden Bae MD Work Phone: [facility] 06-28-2024 10:25-0400 Body mass index (BMI) [Ratio] 27.85 kg/m2 Marcelo Davey MD Work Phone: [facility] 06-28-2024 10:25-0400 Body temperature 97.9 [degF] Marcelo Davey MD Work Phone: [facility] 06-28-2024 10:25-0400 Body weight 64.95 kg Marcelo Davey MD Work Phone: [facility] 06-28-2024 10:25-0400 Diastolic blood pressure 72 mm[Hg] Marcelo Davey MD Work Phone: [facility] 06-28-2024 10:25-0400 Heart rate 63 /min Marcelo Davey MD Work Phone: [facility] 06-28-2024 10:25-0400 Systolic blood pressure 115 mm[Hg] Marcelo Davey MD Work Phone: [facility] 04-30-2024 19:56-0400 Diastolic blood pressure 64 mm[Hg] Tk Beverly MD Work Phone: [facility] 04-30-2024 19:56-0400 Heart rate 63 /min Tk Beverly MD Work Phone: [facility] 04-30-2024 19:56-0400 Respiratory rate 16 /min kT Beverly MD Work Phone: [facility] 04-30-2024 19:56-0400 SaO2% (BldA) [Mass fraction] 96 % Tk Beverly MD Work Phone: [facility] 04-30-2024 19:56-0400 Systolic blood pressure 143 mm[Hg] Tk Beverly MD Work Phone: [facility] 04-30-2024 13:22-0400 Body height 152.4 cm Tk Beverly MD Work Phone: [facility] 04-30-2024 13:22-0400 Body mass index (BMI) [Ratio] 28.51 kg/m2 Tk Beverly MD Work Phone: [facility] 04-30-2024 13:22-0400 Body temperature 98.2 [degF] Tk Beverly MD Work Phone: [facility] 04-30-2024 13:22-0400 Body weight 66.22 kg Tk Beverly MD Work Phone: [facility] 04-19-2024 09:13-0400 Body mass index (BMI) [Ratio] 29.29 kg/m2 Neli Cox CREDIT CONTROL MANAGER-FLOOR LAYER HELPER Work Phone: [facility] 04-19-2024 09:13-0400 Body weight 68.3 kg Neli Cox CREDIT CONTROL MANAGER-FLOOR LAYER HELPER Work Phone: [facility] [facility]24 09:13-0400 Diastolic blood pressure 59 mm[Hg] Neli Cox CREDIT CONTROL MANAGER-FLOOR LAYER HELPER Work Phone: [facility] 04-19-2024 09:13-0400 Heart rate 60 /min Neli Cox CREDIT CONTROL MANAGER-FLOOR LAYER HELPER Work Phone: [facility] 04-19-2024 09:13-0400 Systolic blood pressure 128 mm[Hg] Neli Cox CREDIT CONTROL MANAGER-FLOOR LAYER HELPER Work Phone: [facility] 03-29-2024 10:09-0400 Body mass index (BMI) [Ratio] 29.72 kg/m2 Marcelo Davey MD Work Phone: [facility] 03-29-2024 10:09-0400 Body temperature 97.7 [degF] Marcelo Davey MD Work Phone: [facility] 03-29-2024 10:09-0400 Body weight 69.31 kg Marcelo Davey MD Work Phone: [facility] 03-29-2024 10:09-0400 Diastolic blood pressure 75 mm[Hg] Marcelo Davey MD Work Phone: [facility] 03-29-2024 10:09-0400 Heart rate 60 /min Marcelo Davey MD Work Phone: [facility] 03-29-2024 10:09-0400 SaO2% (BldA) [Mass fraction] 94 % Marcelo Davey MD Work Phone: [facility] 03-29-2024 10:09-0400 Systolic blood pressure 160 mm[Hg] Marcelo Davey MD Work Phone: [facility] 03-08-2024 13:28-0400 Diastolic blood pressure 78 mm[Hg] Cayden Bae MD Work Phone: [facility] 03-08-2024 13:28-0400 Heart rate 95 /min Cayden Bae MD Work Phone: [facility] 03-08-2024 13:28-0400 Systolic blood pressure 136 mm[Hg] Cayden Bae MD Work Phone: [facility] 03-08-2024 11:35-0400 Body mass index (BMI) [Ratio] 29.76 kg/m2 Marcelo Davey MD Work Phone: [facility] 03-08-2024 11:35-0400 Body weight 69.4 kg Marcelo Davey MD Work Phone: [facility] 03-08-2024 11:35-0400 Diastolic blood pressure 78 mm[Hg] Marcelo Davey MD Work Phone: [facility] 03-08-2024 11:35-0400 Heart rate 62 /min Marcelo Davey MD Work Phone: [facility] 03-08-2024 11:35-0400 Systolic blood pressure 136 mm[Hg] Marcelo Davey MD Work Phone: [facility] 03-02-2024 12:15-0400 Diastolic blood pressure 76 mm[Hg] [address] 03-02-2024 12:15-0400 Heart rate 61 /min [address] 03-02-2024 12:15-0400 Respiratory rate 16 /min [address] 03-02-2024 12:15-0400 SaO2% (BldA) [Mass fraction] 93 % [address] 03-02-2024 12:15-0400 Systolic blood pressure 133 mm[Hg] [address] 03-02-2024 11:25-0400 Body temperature 97.9 [degF] [address] 02-09-2024 11:35-0400 Body height 152.7 cm Marcelo Davey MD Work Phone: [facility] 02-09-2024 11:35-0400 Body mass index (BMI) [Ratio] 29.88 kg/m2 Marcelo Davey MD Work Phone: [facility] 02-09-2024 11:35-0400 Body temperature 98.01 [degF] Marcelo Davey MD Work Phone: [facility] 02-09-2024 11:35-0400 Body weight 69.67 kg Marcelo Davey MD Work Phone: [facility] 02-09-2024 11:35-0400 Diastolic blood pressure 78 mm[Hg] Marcelo Davey MD Work Phone: [facility] 02-09-2024 11:35-0400 Heart rate 60 /min Marcelo Davey MD Work Phone: [facility] 02-09-2024 11:35-0400 SaO2% (BldA) [Mass fraction] 95 % Marcelo Davey MD Work Phone: [facility] 02-09-2024 11:35-0400 Systolic blood pressure 150 mm[Hg] Marcelo Davey MD Work Phone: [facility] 02-09-2024 11:30-0400 Body height 152.7 cm Thai Mohr MD Work Phone: [facility] 02-09-2024 11:30-0400 Body mass index (BMI) [Ratio] 29.88 kg/m2 Thai Mohr MD Work Phone: [facility] 02-09-2024 11:30-0400 Body temperature 98.01 [degF] Thai Mohr MD Work Phone: [facility] 02-09-2024 11:30-0400 Body weight 69.67 kg Thai Mohr MD Work Phone: [facility] 02-09-2024 11:30-0400 Diastolic blood pressure 78 mm[Hg] Thai Mohr MD Work Phone: [facility] 02-09-2024 11:30-0400 Heart rate 60 /min Thai Mohr MD Work Phone: [facility] 02-09-2024 11:30-0400 SaO2% (BldA) [Mass fraction] 95 % Thai Mohr MD Work Phone: [facility] 02-09-2024 11:30-0400 Systolic blood pressure 150 mm[Hg] Thai Mohr MD Work Phone: [facility] 01-27-2024 11:26-0400 Body weight 69.[address] Daniela Fallon Work Phone: [facility] 01-04-2024 12:54-0400 Body height 152.[address] Daniela Fallon Work Phone: [facility] 01-04-2024 12:54-0400 Body mass index (BMI) [Ratio] 30.3 kg/m2 Dr. Daniela Fallon Work Phone: [facility] 01-04-2024 12:54-0400 Body temperature 97.9 [degF] Dr. Daniela Fallon Work Phone: [facility] 01-04-2024 12:54-0400 Body weight 70.[address] Daniela Fallon Work Phone: [facility] 01-04-2024 12:54-0400 Diastolic blood pressure 75 mm[Hg] Dr. Daniela Fallon Work Phone: [facility] 01-04-2024 12:54-0400 Heart rate 59 /min Dr. Daniela Fallon Work Phone: [facility] 01-04-2024 12:54-0400 Respiratory rate 18 /min Dr. Daniela Fallon Work Phone: [facility] 01-04-2024 12:54-0400 SaO2% (BldA) [Mass fraction] 95 % Dr. Daniela Fallon Work Phone: [facility] 01-04-2024 12:54-0400 Systolic blood pressure 137 mm[Hg] Dr. Daniela Fallon Work Phone: [facility] 12-08-2023 12:32-0500 Body temperature 97 [degF] Dr. Daniela Fallon Work Phone: [facility] 12-08-2023 12:32-0500 Diastolic blood pressure 69 mm[Hg] Dr. Daniela Fallon Work Phone: [facility] 12-08-2023 12:32-0500 Heart rate 60 /min Dr. Daniela Fallon Work Phone: [facility] 12-08-2023 12:32-0500 Respiratory rate 17 /min Dr. Daniela Fallon Work Phone: [facility] 12-08-2023 12:32-0500 SaO2% (BldA) [Mass fraction] 95 % Dr. Daniela Fallon Work Phone: [facility] 12-08-2023 12:32-0500 Systolic blood pressure 141 mm[Hg] Dr. Daniela Fallon Work Phone: [facility] 12-02-2023 14:41-0500 Body height 152.4 cm Ruel Lozano MD Work Phone: [facility] 12-02-2023 14:41-0500 Body mass index (BMI) [Ratio] 29.88 kg/m2 Ruel Lozano MD Work Phone: [facility] 12-02-2023 14:41-0500 Body weight 69.4 kg Ruel Lozano MD Work Phone: [facility] 12-02-2023 14:41-0500 Diastolic blood pressure 73 mm[Hg] Ruel Lozano MD Work Phone: [facility] 12-02-2023 14:41-0500 Heart rate 60 /min Ruel Lozano MD Work Phone: [facility] 12-02-2023 14:41-0500 SaO2% (BldA) [Mass fraction] 94 % Ruel Lozano MD Work Phone: [facility] 12-02-2023 14:41-0500 Systolic blood pressure 125 mm[Hg] Ruel Lozano MD Work Phone: [facility] 11-24-2023 08:01-0500 Body height 152.[address] Daniela Fallon Work Phone: [facility] 11-24-2023 08:01-0500 Body mass index (BMI) [Ratio] 29.7 kg/m2 Dr. Daniela Fallon Work Phone: [facility] 11-24-2023 08:01-0500 Body temperature 97.8 [degF] Dr. Daniela Fallon Work Phone: [facility] 11-24-2023 08:01-0500 Body weight 68.[address] Daniela Fallon Work Phone: [facility] 11-24-2023 08:01-0500 Diastolic blood pressure 90 mm[Hg] Dr. Daniela Fallon Work Phone: [facility] 11-24-2023 08:01-0500 Heart rate 68 /min Dr. Daniela Fallon Work Phone: [facility] 11-24-2023 08:01-0500 SaO2% (BldA) [Mass fraction] 98 % Dr. Daniela Fallon Work Phone: [facility] 11-24-2023 08:01-0500 Systolic blood pressure 144 mm[Hg] Dr. Daniela Fallon Work Phone: [facility] 08-13-2023 09:14-0400 Body height 152.[address] Daniela Fallon Work Phone: [facility] 08-13-2023 09:14-0400 Body mass index (BMI) [Ratio] 29.9 kg/m2 Dr. Daniela Fallon Work Phone: [facility] 08-13-2023 09:14-0400 Body temperature 98.2 [degF] Dr. Daniela Fallon Work Phone: [facility] 08-13-2023 09:14-0400 Body weight 69.[address] Daniela Fallon Work Phone: [facility] 08-13-2023 09:14-0400 Diastolic blood pressure 84 mm[Hg] Dr. Daniela Fallon Work Phone: [facility] 08-13-2023 09:14-0400 Heart rate 69 /min Dr. Daniela Fallon Work Phone: [facility] 08-13-2023 09:14-0400 Respiratory rate 16 /min Dr. Daniela Fallon Work Phone: [facility] 08-13-2023 09:14-0400 SaO2% (BldA) [Mass fraction] 96 % Dr. Daniela Fallon Work Phone: [facility] 08-13-2023 09:14-0400 Systolic blood pressure 130 mm[Hg] Dr. Daniela Fallon Work Phone: [facility] 07-05-2023 14:48-0400 Diastolic Blood Pressure Non-Invasive 76 1 JUAN F MARCOS MD [facility] 07-05-2023 14:48-0400 Heart rate 60 /min JUAN F MARCOS MD [facility] 07-05-2023 14:48-0400 Respiratory rate 16 /min JUAN F MARCOS MD [facility] 07-05-2023 14:48-0400 Systolic Blood Pressure Non-Invasive 136 1 JUAN F MARCOS MD [facility] 07-05-2023 14:20-0400 Respiratory rate 16 /min JUAN F MARCOS MD [address] [place] [address] 07-05-2023 13:48-0400 Diastolic Blood Pressure Non-Invasive 68 1 JUAN F MARCOS MD [address] [place] [address] 07-05-2023 13:48-0400 Heart rate 62 /min JUAN F MARCOS MD [address] [place] [address] 07-05-2023 13:48-0400 Respiratory rate 16 /min JUAN F MARCOS MD [address] [place] [address] 07-05-2023 13:48-0400 Systolic Blood Pressure Non-Invasive 152 1 JUAN F MARCOS MD [address] [place] [address] 07-05-2023 13:35-0400 Diastolic Blood Pressure Non-Invasive 69 1 JUAN F MARCOS MD [address] [place] [address] 07-05-2023 13:35-0400 Heart rate 60 /min JUAN F MARCOS MD [address] [place] [address] 07-05-2023 13:35-0400 Systolic Blood Pressure Non-Invasive 176 1 JUAN F MARCOS MD [address] [place] [address] 07-05-2023 13:30-0400 Heart rate 60 /min JUAN F MRACOS MD [address] [place] [address] 07-05-2023 13:25-0400 Heart rate 60 /min JUAN F MARCOS MD [address] [place] [address] 07-05-2023 13:10-0400 Respiratory Rate - Anes 0 br/min JUAN F MARCOS MD [address] [place] [address] 07-05-2023 13:05-0400 Body temperature 97.52 [degF] JUAN F MARCOS MD [address] [place] [address] 07-05-2023 13:05-0400 Respiratory Rate - Anes 0 br/min JUAN F MARCOS MD [address] [place] [address] 07-05-2023 08:53-0400 Body weight 29.49 kg/m2 JUAN F MARCOS MD [facility] 07-05-2023 08:44-0400 Body height 152.4 cm JUAN F MARCOS MD [address] [place] [address] 07-05-2023 08:44-0400 Body temperature 97.7 [degF] JUAN F MARCOS MD [address] [place] [address] 07-05-2023 08:44-0400 Body weight 68.5 kg JUAN F MARCOS MD [address] [place] [address] 07-05-2023 08:44-0400 Body weight 29.49 kg/m2 JUAN F MARCOS MD [address] [place] [address] 07-05-2023 08:44-0400 Heart rate 58 /min JUAN F MARCOS MD [address] [place] [address] 12-25-2022 08:37-0500 Body height 152.[address] Daniela Fallon Work Phone: [facility] 12-25-2022 08:37-0500 Body mass index (BMI) [Ratio] 28.3 kg/m2 Dr. Daniela Fallon Work Phone: [facility] 12-25-2022 08:37-0500 Body temperature 96.5 [degF] Dr. Daniela Fallon Work Phone: [facility] 12-25-2022 08:37-0500 Body weight 65.[address] Daniela Fallon Work Phone: [facility] 12-25-2022 08:37-0500 Diastolic blood pressure 84 mm[Hg] Dr. Daniela Fallon Work Phone: [facility] 12-25-2022 08:37-0500 Heart rate 96 /min Dr. Daniela Fallon Work Phone: [facility] 12-25-2022 08:37-0500 Respiratory rate 16 /min Dr. Daniela Fallon Work Phone: [facility] 12-25-2022 08:37-0500 SaO2% (BldA) [Mass fraction] 96 % Dr. Daniela Fallon Work Phone: [facility] 12-25-2022 08:37-0500 Systolic blood pressure 130 mm[Hg] Dr. Daniela Fallon Work Phone: [facility] 11-12-2022 11:49-0500 Body temperature 97.81 [degF] Austin Praisler-Wood CREDIT CONTROL MANAGER.FLOOR LAYER HELPER Work Phone: [facility] 11-12-2022 11:49-0500 Body weight 67.77 kg Austin Praisler-Wood CREDIT CONTROL MANAGER.FLOOR LAYER HELPER Work Phone: [facility] 11-12-2022 11:49-0500 Diastolic blood pressure 74 mm[Hg] Austin Praisler-Wood CREDIT CONTROL MANAGER.FLOOR LAYER HELPER Work Phone: [facility] 11-12-2022 11:49-0500 Heart rate 60 /min Austin Praisler-Wood CREDIT CONTROL MANAGER.FLOOR LAYER HELPER Work Phone: [facility] 11-12-2022 11:49-0500 Respiratory rate 18 /min Austin Praisler-Wood CREDIT CONTROL MANAGER.FLOOR LAYER HELPER Work Phone: [facility] 11-12-2022 11:49-0500 SaO2% (BldA) [Mass fraction] 96 % Austin Praisler-Wood CREDIT CONTROL MANAGER.FLOOR LAYER HELPER Work Phone: [facility] 11-12-2022 11:49-0500 Systolic blood pressure 124 mm[Hg] Austin Praisler-Wood CREDIT CONTROL MANAGER.FLOOR LAYER HELPER Work Phone: [facility] 10-27-2022 08:51-0500 Body mass index (BMI) [Ratio] 28.1 kg/m2 Dr. Daniela Fallon Work Phone: [facility] 10-27-2022 08:51-0500 Body temperature 98.1 [degF] Dr. Daniela Fallon Work Phone: [facility] 10-27-2022 08:51-0500 Body weight 65.[address] Daniela Fallon Work Phone: [facility] 10-27-2022 08:51-0500 Diastolic blood pressure 72 mm[Hg] Dr. Daniela Fallon Work Phone: [facility] 10-27-2022 08:51-0500 Heart rate 71 /min Dr. Daniela Fallon Work Phone: [facility] 10-27-2022 08:51-0500 Respiratory rate 16 /min Dr. Daniela Fallon Work Phone: [facility] 10-27-2022 08:51-0500 SaO2% (BldA) [Mass fraction] 96 % Dr. Daniela Fallon Work Phone: [facility] 10-27-2022 08:51-0500 Systolic blood pressure 120 mm[Hg] Dr. Daniela Fallon Work Phone: [facility] 09-15-2022 08:22-0500 Body temperature 96.1 [degF] Dr. Daniela Fallon Work Phone: [facility] 09-15-2022 08:22-0500 Body weight 66.[address] Daniela Fallon Work Phone: [facility] 09-15-2022 08:22-0500 Diastolic blood pressure 88 mm[Hg] Dr. Daniela Fallon Work Phone: [facility] 09-15-2022 08:22-0500 Heart rate 66 /min Dr. Daniela Fallon Work Phone: [facility] 09-15-2022 08:22-0500 Respiratory rate 18 /min Dr. Daniela Fallon Work Phone: [facility] 09-15-2022 08:22-0500 SaO2% (BldA) [Mass fraction] 96 % Dr. Daniela Fallon Work Phone: [facility] 09-15-2022 08:22-0500 Systolic blood pressure 138 mm[Hg] Dr. Daniela Fallon Work Phone: [facility] 07-07-2022 13:15-0400 Body height 152.[address] Daniela Fallon Work Phone: [facility] Work Phone: 07-07-2022 13:15-0400 Body temperature 95.6 [degF] Dr. Daniela Fallon Work Phone: [facility] Work Phone: 07-07-2022 13:15-0400 Diastolic blood pressure 80 mm[Hg] Dr. Daniela Fallon Work Phone: [facility] Work Phone: 07-07-2022 13:15-0400 Heart rate 89 /min Dr. Daniela Fallon Work Phone: [facility] Work Phone: 07-07-2022 13:15-0400 Respiratory rate 18 /min Dr. Daniela Fallon Work Phone: [facility] Work Phone: 07-07-2022 13:15-0400 SaO2% (BldA) [Mass fraction] 96 % Dr. Daniela Fallon Work Phone: [facility] Work Phone: 07-07-2022 13:15-0400 Systolic blood pressure 144 mm[Hg] Dr. Daniela Fallon Work Phone: [facility] Work Phone: 05-27-2022 09:23-0400 Body height 152.[address] Daniela Fallon Work Phone: [facility] Work Phone: 05-27-2022 09:23-0400 Body mass index (BMI) [Ratio] 28.7 kg/m2 Dr. Daniela Fallon Work Phone: [facility] Work Phone: 05-27-2022 09:23-0400 Body temperature 96.6 [degF] Dr. Daniela Fallon Work Phone: [facility] Work Phone: 05-27-2022 09:23-0400 Body weight 66.[address] Daniela Fallon Work Phone: [facility] Work Phone: 05-27-2022 09:23-0400 Diastolic blood pressure 70 mm[Hg] Dr. Daniela Fallon Work Phone: [facility] Work Phone: 05-27-2022 09:23-0400 Heart rate 68 /min Dr. Daniela Fallon Work Phone: [facility] Work Phone: 05-27-2022 09:23-0400 Respiratory rate 18 /min Dr. Daniela Fallon Work Phone: [facility] Work Phone: 05-27-2022 09:23-0400 SaO2% (BldA) [Mass fraction] 96 % Dr. Daniela Fallon Work Phone: [facility] Work Phone: 05-27-2022 09:23-0400 Systolic blood pressure 110 mm[Hg] Dr. Daniela Fallon Work Phone: [facility] Work Phone: 02-24-2022 09:46-0400 Body mass index (BMI) [Ratio] 29.7 kg/m2 Dr. Daniela Fallon Work Phone: [facility] Work Phone: 02-24-2022 09:46-0400 Body temperature 97.9 [degF] Dr. Daniela Fallon Work Phone: [facility] Work Phone: 02-24-2022 09:46-0400 Body weight 68.[address] Daniela Fallon Work Phone: [facility] Work Phone: 02-24-2022 09:46-0400 Diastolic blood pressure 78 mm[Hg] Dr. Daniela Fallon Work Phone: [facility] Work Phone: 02-24-2022 09:46-0400 Heart rate 60 /min Dr. Daniela Fallon Work Phone: [facility] Work Phone: 02-24-2022 09:46-0400 Respiratory rate 14 /min Dr. Daniela Fallon Work Phone: [facility] Work Phone: 02-24-2022 09:46-0400 SaO2% (BldA) [Mass fraction] 96 % Dr. Daniela Fallon Work Phone: [facility] Work Phone: 02-24-2022 09:46-0400 Systolic blood pressure 142 mm[Hg] Dr. Daniela Fallon Work Phone: [facility] Work Phone: 11-24-2021 13:44-0500 Body height 152.[address] Daniela Fallon Work Phone: [facility] Work Phone: 11-24-2021 13:44-0500 Body mass index (BMI) [Ratio] 29.7 kg/m2 Dr. Daniela Fallon Work Phone: [facility] Work Phone: 11-24-2021 13:44-0500 Body temperature 95.4 [degF] Dr. Daniela Fallon Work Phone: [facility] Work Phone: 11-24-2021 13:44-0500 Body weight 68.[address] Daniela Fallon Work Phone: [facility] Work Phone: 11-24-2021 13:44-0500 Diastolic blood pressure 86 mm[Hg] Dr. Daniela Fallon Work Phone: [facility] Work Phone: 11-24-2021 13:44-0500 Heart rate 78 /min Dr. Daniela Fallon Work Phone: [facility] Work Phone: 11-24-2021 13:44-0500 Respiratory rate 16 /min Dr. Daniela Fallon Work Phone: [facility] Work Phone: 11-24-2021 13:44-0500 SaO2% (BldA) [Mass fraction] 95 % Dr. Daniela Fallon Work Phone: [facility] Work Phone: 11-24-2021 13:44-0500 Systolic blood pressure 130 mm[Hg] Dr. Daniela Fallon Work Phone: [facility] Work Phone: 08-18-2021 15:14-0400 Body temperature 97.8 [degF] Dr. Daniela Fallon Work Phone: [facility] Work Phone: 08-18-2021 15:14-0400 Body weight 69.[address] Daniela Fallon Work Phone: [facility] Work Phone: 08-18-2021 15:14-0400 Diastolic blood pressure 98 mm[Hg] Dr. Daniela Fallon Work Phone: [facility] Work Phone: 08-18-2021 15:14-0400 Heart rate 77 /min Dr. Daniela Fallon Work Phone: [facility] Work Phone: 08-18-2021 15:14-0400 Respiratory rate 16 /min Dr. Daniela Fallon Work Phone: [facility] Work Phone: 08-18-2021 15:14-0400 SaO2% (BldA) [Mass fraction] 97 % Dr. Daniela Fallon Work Phone: [facility] Work Phone: 08-18-2021 15:14-0400 Systolic blood pressure 152 mm[Hg] Dr. Daniela Fallon Work Phone: [facility] Work Phone: 05-19-2021 14:54-0400 Body mass index (BMI) [Ratio] 26.9 kg/m2 Dr. Daniela Fallon Work Phone: [facility] Work Phone: Encounters Encounter Date Encounter Type Care Provider Facility Start: 08-10-2025 End: 08-10-2025 ambulatory [facility] Start: 08-09-2025 End: 08-09-2025 ambulatory [facility] Start: 08-07-2025 End: 08-07-2025 Patient encounter procedure Claudia STONER -[facility] Work Phone: Start: 08-07-2025 End: 08-07-2025 ambulatory Daniela Fallon [place] [place] Start: 07-31-2025 End: 07-31-2025 Office outpatient visit 40 minutes Neli Cox CREDIT CONTROL MANAGER-FLOOR LAYER HELPER Work Phone: [facility] Comment on above: Malignant neoplasm o f lower-outer quadrant of right breast of female, estrogen receptor negative; Encounter for antineoplastic chemotherapy; Chemotherapy-induced neutropenia; Chemotherapy-induced nausea; Chemotherapy-induced fatigue; Malignant neoplasm of areola of breast in female, estrogen receptor negative, unspecified laterality (Multi); Poor balance; Abnormality of gait and mobility; Difficulty maintaining weight loss Start: 07-31-2025 End: 07-31-2025 ambulatory NELI COX [facility] Start: 07-18-2025 End: 07-18-2025 ambulatory [facility] Start: 07-17-2025 End: 07-17-2025 ambulatory [facility] Start: 07-16-2025 ambulatory DANIELA FALLON MD F acility:[facility] Start: 07-13-2025 End: 07-13-[address] Daniela Fallon MD -[facility] Work Phone: Start: 07-13-2025 End: 07-13-[address] Daniela Fallon MD Work Phone: -[facility] Start: 06-28-2025 End: 06-28-2025 ambulatory [facility] Start: 06-27-2025 End: 06-27-2025 ambulatory [facility] Start: 06-27-2025 End: 06-27-2025 Office outpatient visit 40 minutes Marcelo Davey MD Work Phone: [facility] Comment on above: Malignant neoplasm o f areola of breast in female, estrogen receptor negative, unspecified laterality (Primary Dx); Chemotherapy-induced nausea; Malignant neoplasm of lower-outer quadrant of right breast of female, estrogen receptor negative; Encounter for antineoplastic chemotherapy; Chemotherapy-induced fatigue Start: 06-26-2025 End: 06-26-2025 ambulatory [facility] Start: 06-21-2025 End: 06-21-2025 Subsequent hospital visit by physician Jennyfer Sanches [address] [facility] Comment on above: Malignant neoplasm o f lower-outer quadrant of right breast of female, estrogen receptor negative; Encounter for antineoplastic chemotherapy; Malignant neoplasm of areola of breast in female, estrogen receptor negative, unspecified laterality Start: 06-21-2025 End: 06-21-2025 ambulatory NELI Nagel [facility] Start: 06-20-2025 End: 06-20-2025 ambulatory NELI Nagel [facility] Start: 06-06-2025 End: 06-06-2025 ambulatory [facility] Start: 06-05-2025 End: 06-05-2025 ambulatory [facility] Start: 05-17-2025 End: 05-17-2025 ambulatory [facility] Start: 05-16-2025 End: 05-16-2025 ambulatory NELI Nagel [facility] Start: 05-16-2025 End: 05-16-2025 Office outpatient visit 40 minutes Neli Cox CREDIT CONTROL MANAGER-FLOOR LAYER HELPER Work Phone: [facility] Comment on above: Chemotherapy-induced nausea; Malignant neoplasm of lower-outer quadrant of right breast of female, estrogen receptor negative; Encounter for antineoplastic chemotherapy; Chemotherapy-induced fatigue; Malignant neoplasm of areola of breast in female, estrogen receptor negative, unspecified laterality Start: 05-15-2025 End: 05-15-2025 ambulatory NELI Nagel [facility] Start: 05-03-2025 End: 05-03-2025 Office outpatient new 30 minutes Yany Page CREDIT CONTROL MANAGER-FLOOR LAYER HELPER Work Phone: [facility] Comment on above: Encounter for monito ring cardiotoxic drug therapy (Primary Dx) Start: 05-03-2025 End: 05-03-2025 ambulatory YANY Mack PAGE [facility] Start: 04-26-2025 End: 04-26-2025 Subsequent hospital visit by physician Med Echo/St[facility] Comment on above: Malignant neoplasm o f areola of breast in female, estrogen receptor negative, unspecified laterality; Status post administration of cardiotoxic chemotherapy; Aortic valve stenosis, etiology of cardiac valve disease unspecified Start: 04-26-2025 End: 04-26-2025 ambulatory [facility] Start: 04-25-2025 End: 04-25-2025 ambulatory [facility] Start: 04-24-2025 End: 04-24-2025 ambulatory [facility] Start: 04-18-2025 End: 04-18-2025 Emergency department patient visit Dr. Daniela Fallon MD Work Phone: -Emergency Department Work Phone: Start: 04-05-2025 End: 04-05-2025 Patient encounter procedure Claudia Rubio RN OFFICE-C -[facility] Work Phone: Start: 04-05-2025 End: 04-05-[address] Daniela Fallon MD Work Phone: [facility] Work Phone: Start: 04-04-2025 End: 04-04-2025 ambulatory [facility] Start: 04-03-2025 End: 04-03-2025 ambulatory NELI Nagel [facility] Start: 03-28-2025 End: 03-28-2025 ambulatory [facility] Start: 03-28-2025 End: 03-28-2025 Office outpatient visit 40 minutes Marcelo Davey MD Work Phone: [facility] Comment on above: Malignant neoplasm o f areola of breast in female, estrogen receptor negative, unspecified laterality (Primary Dx); Malignant neoplasm of lower-outer quadrant of right breast of female, estrogen receptor negative; Encounter for antineoplastic chemotherapy Start: 03-21-2025 End: 03-21-2025 Subsequent hospital visit by physician Jennyfer Sanches [address] [facility] Comment on above: Malignant neoplasm o f areola of breast in female, estrogen receptor negative, unspecified laterality; Malignant neoplasm of lower-outer quadrant of right breast of female, estrogen receptor negative; Encounter for antineoplastic chemotherapy Start: 03-21-2025 End: 03-21-2025 ambulatory NELI Nagel [facility] Start: 03-20-2025 End: 03-20-2025 ambulatory NELI Nagel [facility] Start: 03-14-2025 End: 03-14-2025 ambulatory [facility] Start: 03-08-2025 End: 03-08-2025 ambulatory NELI Robe [facility] Start: 02-21-2025 End: 02-21-2025 ambulatory [facility] Start: 02-20-2025 End: 02-20-2025 ambulatory NELI R [facility] Start: 02-14-2025 End: 02-14-2025 Office outpatient visit 40 minutes Nelialyce Cox CREDIT CONTROL MANAGER-FLOOR LAYER HELPER Work Phone: [facility] Comment on above: Malignant neoplasm o f areola of breast in female, estrogen receptor negative, unspecified laterality; Malignant neoplasm of lower-outer quadrant of right breast of female, estrogen receptor negative; Encounter for antineoplastic chemotherapy Start: 02-14-2025 End: 02-14-2025 ambulatory NELI Nagel [facility] Start: 02-06-2025 End: 02-06-2025 Patient encounter procedure Aaron HURD [facility] Work Phone: Start: 02-06-2025 End: 02-06-[address] Daniela Fallon MD Work Phone: [facility] Work Phone: Start: 02-06-2025 End: 02-06-2025 ambulatory Aaron HURD Facility:[facility] Start: 01-31-2025 End: 01-31-2025 ambulatory [facility] Start: 01-29-2025 End: 01-29-2025 ambulatory [facility] Start: 01-10-2025 End: 01-10-2025 ambulatory [facility] Start: 01-08-2025 End: 01-08-2025 ambulatory [facility] Start: 01-03-2025 End: 01-03-2025 Office outpatient visit 40 minutes Marcelo Davey MD Work Phone: [facility] Comment on above: Malignant neoplasm o f areola of breast in female, estrogen receptor negative, unspecified laterality (Primary Dx); Status post administration of cardiotoxic chemotherapy; Aortic valve stenosis, etiology of cardiac valve disease unspecified Start: 01-03-2025 End: 01-03-2025 ambulatory [facility] Start: 01-01-2025 End: 01-01-2025 ambulatory NELI Nagel [facility] Start: 12-22-2024 End: 12-22-[address] Daniela Fallon MD Work Phone: [facility] Work Phone: Start: 12-22-2024 End: 12-22-[address] Daniela Fallon MD -Laboratory, [place] Start: 12-22-2024 End: 12-22-2024 Patient encounter procedure Aaron [facility]URD [facility] Work Phone: Start: 12-22-2024 End: 12-22-2024 ambulatory [facility] [place] Start: 12-22-2024 End: 12-22-2024 ambulatory [facility] Facility:[facility] Start: 12-18-2024 End: 12-18-2024 [facility] Start: 12-15-2024 Non-patient / Non-visit Dr. Migdalia Spring DO [facility] Work Phone: Start: 12-14-2024 Non-patient / Non-visit Dr. Migdalia Spring DO [facility] Work Phone: Start: 12-13-2024 Non-patient / Non-visit Dr. Migdalia Spring [facility] Work Phone: Start: 12-12-2024 Non-patient / Non-visit Dr. Migdalia Spring [facility] Work Phone: Start: 12-11-2024 Non-patient / Non-visit Dr. Migdalia Spring [facility] Work Phone: Start: 12-10-2024 Non-patient / Non-visit Dr. Gerson Renae MD [facility] Work Phone: Start: 12-10-2024 ambulatory [facility] Facility :[facility] Start: 12-10-2024 End: 12-15-2024 Evaluation and management of inpatient Dr. Guillaume Spring [facility] Work Phone: Start: 12-09-2024 Non-patient / Non-visit Dr. Gerson Renae MD [facility] Work Phone: Start: 12-08-2024 ambulatory [facility] [place] [facility] [place] Start: 12-08-2024 Non-patient / Non-visit Dr. Tere Price MD [facility] Work Phone: Start: 12-06-2024 End: 12-06-2024 ambulatory [facility] Start: 12-05-2024 End: 12-05-2024 [facility] Start: 11-30-2024 End: 11-30-2024 ambulatory [facility] Start: 11-29-2024 End: 11-29-2024 [facility] Start: 11-29-2024 End: 11-29-2024 ambulatory [facility] Start: 11-08-2024 End: 11-08-2024 Office outpatient visit 40 minutes Marcelo Davey MD Work Phone: [facility] Comment on above: Carcinoma of breast, estrogen receptor positive, stage 3, unspecified laterality (Multi) (Primary Dx); Malignant neoplasm of lower-outer quadrant of right breast of female, estrogen receptor negative Start: 11-08-2024 End: 11-08-2024 ambulatory [facility] Start: 10-30-2024 End: 10-30-2024 [facility] Start: 10-26-2024 End: 10-26-2024 Subsequent hospital visit by physician Frankie Grewal Mobile Admin Room [address] [facility] Comment on above: Arrived Start: 10-26-2024 End: 10-26-2024 [facility] Start: 10-12-2024 End: 10-12-2024 [facility] Start: 10-09-2024 End: 10-09-2024 [facility] Start: 09-27-2024 End: 09-27-2024 Office outpatient visit 40 minutes Cayden Bae MD Work Phone: [facility] Comment on above: Status post coronary artery bypass grafting (Primary Dx); Cardiomyopathy, ischemic; Chronic diastolic heart failure; Aortic valve stenosis, etiology of cardiac valve disease unspecified Start: 09-27-2024 End: 09-27-2024 [facility] Start: 09-24-2024 End: 09-24-2024 Emergency department patient visit Dr. Jesus Luu DO -Emergency Department Work Phone: Start: 09-20-2024 End: 09-20-2024 Subsequent hospital visit by physician Frankie Grande 2 [facility] Comment on above: Carcinoma of breast, estrogen receptor positive, stage 3, unspecified laterality (Multi); Malignant neoplasm of lower-outer quadrant of right breast of female, estrogen receptor negative Start: 09-20-2024 End: 09-20-2024 ambulatory [facility] Start: 09-20-2024 End: 09-20-2024 Office outpatient visit 40 minutes Marcelo Davey MD Work Phone: [facility] Comment on above: Carcinoma of breast, estrogen receptor positive, stage 3, unspecified laterality (Multi) (Primary Dx); Malignant neoplasm of lower-outer quadrant of right breast of female, estrogen receptor negative Start: 09-20-2024 End: 09-20-2024 ambulatory MARCELO DAVEY [facility] Start: 09-19-2024 End: 09-19-2024 Subsequent hospital visit by physician Med Echo/Stress [facility] Comment on above: Status post aortic v alve replacement Start: 09-19-2024 End: 09-19-2024 ambulatory RUEL LOZANO [facility] Start: 09-04-2024 End: 09-04-2024 ambulatory DANIELA VALEKd [facility] Start: 09-01-2024 End: 09-01-2024 ambulatory Aaron HURD Facility:[facility] Start: 08-01-2024 End: 08-01-2024 Subsequent hospital visit by physician Frankie Malave Or Anesthesia Joshua [facility] [place] Comment on above: Arrived Start: 08-01-2024 End: 08-09-2024 Evaluation and management of inpatient Ruel Lozano MD Work Phone: [facility] Berna Swifton 3 Start: 07-26-2024 End: 07-26-2024 Patient encounter status Par [facility] Work Phone: Start: 07-26-2024 End: 07-26-2024 Subsequent hospital visit by physician Mando [facility] Comment on above: Aneurysm of ascendin g aorta without rupture (CMS-HCC); Paroxysmal atrial fibrillation (Multi); Bilateral carotid artery stenosis; Other specified symptoms and signs involving the circulatory and respiratory systems; Encounter for other preprocedural examination Start: 07-26-2024 End: 07-26-2024 ambulatory [facility] Start: 07-26-2024 End: 07-26-2024 Encounter for other preprocedural examination [facility] Start: 07-17-2024 End: 07-17-2024 Subsequent hospital visit by physician Outside Study [facility] Comment on above: Arrived Start: 07-07-2024 End: 07-07-2024 Office outpatient visit 25 minutes Ruel Lozano MD Work Phone: [facility] Comment on above: Aortic valve stenosi s, etiology of cardiac valve disease unspecified; Aneurysm of ascending aorta without rupture (CMS-HCC); 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) Start: 07-03-2024 End: 07-03-2024 Subsequent hospital visit by physician Outside Study [facility] Comment on above: Arrived Start: 06-28-2024 End: 06-28-2024 Office outpatient visit 40 minutes Cayden Bae MD Work Phone: [facility] Comment on above: Cardiomyopathy, isch emic; Chronic diastolic heart failure (Multi); Aortic valve stenosis, etiology of cardiac valve disease unspecified Start: 06-28-2024 End: 06-28-2024 Office outpatient visit 40 minutes Marcelo Davey MD Work Phone: [facility] Comment on above: Aortic valve disorde r (Primary Dx); Carcinoma of breast, estrogen receptor positive, stage 3, unspecified laterality (Multi); Malignant neoplasm of lower-outer quadrant of right breast of female, estrogen receptor negative (Multi); Encounter for antineoplastic chemotherapy; Chemotherapy-induced fatigue Start: 06-12-2024 End: 06-12-2024 Office outpatient visit 15 minutes Neli Cox CREDIT CONTROL MANAGER-FLOOR LAYER HELPER Work Phone: [facility] Comment on above: Aortic valve disorde r (Primary Dx); Neck pain; Carcinoma of breast, estrogen receptor positive, stage 3, unspecified laterality (Multi); Malignant neoplasm of lower-outer quadrant of right breast of female, estrogen receptor negative (Multi) Start: 05-29-2024 End: 05-29-2024 Subsequent hospital visit by physician Outside Study [facility] Comment on above: Arrived Start: 04-30-2024 End: 04-30-2024 Emergency department patient visit Tk Beverly MD Work Phone: [facility] Comment on above: Neck pain (Primary D x) Start: 04-19-2024 End: 04-19-2024 Office outpatient visit 40 minutes Neli Cox CREDIT CONTROL MANAGER-FLOOR LAYER HELPER Work Phone: [facility] Comment on above: Malignant neoplasm o f lower-outer quadrant of right breast of female, estrogen receptor negative (Multi) (Primary Dx); Encounter for antineoplastic chemotherapy; Carcinoma of breast, estrogen receptor positive, stage 3, unspecified laterality (Multi); Chemotherapy-induced neutropenia (CMS-HCC); Chemotherapy-induced nausea; Chemotherapy-induced fatigue Start: 04-19-2024 End: 04-19-2024 Subsequent hospital visit by physician u X-Ray [address] [facility] Comment on above: ICD (implantable car dioverter-defibrillator) in place Start: 03-29-2024 End: 03-29-2024 Office outpatient visit 40 minutes Marcelo Davey MD Work Phone: [facility] Comment on above: Carcinoma of breast, estrogen receptor positive, stage 3, unspecified laterality (Multi) (Primary Dx); Ascending aorta dilation (CMS-HCC); Aortic valve disorder; Encounter for antineoplastic chemotherapy Start: 03-20-2024 End: 03-20-2024 ambulatory CAYDEN BAE Facility:B Start: 03-20-2024 End: 03-20-2024 Patient encounter procedure CAYDEN BAE [facility] Start: 03-17-2024 End: 03-17-2024 Subsequent hospital visit by physician Med Echo/Stress [facility] Comment on above: Cardiomyopathy, isch emic; Chronic diastolic heart failure (Multi); Aortic valve stenosis, etiology of cardiac valve disease unspecified Start: 03-14-2024 End: 03-14-2024 Subsequent hospital visit by physician [facility] Breast Ultrasound 1 [facility] Comment on above: Malignant neoplasm o f lower-outer quadrant of right breast of female, estrogen receptor negative (Multi) Malignant neoplasm o f lower-outer quadrant of right female breast (Multi); Estrogen receptor negative status (ER-) Start: 03-08-2024 End: 03-08-2024 Office outpatient new 60 minutes Cayden Bae MD Work Phone: [facility] Comment on above: Cardiomyopathy, isch emic (Primary Dx); Chronic diastolic heart failure (Multi); Aortic valve stenosis, etiology of cardiac valve disease unspecified; Aneurysm of ascending aorta without rupture (CMS-HCC); Other cardiomyopathy (Multi) Start: 03-08-2024 End: 03-08-2024 Office outpatient visit 40 minutes Marcelo Davey MD Work Phone: [facility] Comment on above: Aortic valve stenosi s, etiology of cardiac valve disease unspecified (Primary Dx); Carcinoma of breast, estrogen receptor positive, stage 3, unspecified laterality (Multi); Other specified disorders of breast; Encounter for monitoring cardiotoxic drug therapy; Cardiotoxicity (Multi) Start: 03-02-2024 End: 03-02-2024 Subsequent hospital visit by physician Gokul Navarrete MD Work Phone: [facility] Comment on above: Carcinoma of breast, estrogen receptor positive, stage 3, unspecified laterality (Multi) Start: 02-23-2024 End: 02-23-2024 Subsequent hospital visit by physician Frankie Grewal[address] 1 [facility] Comment on above: Arrived Carcinoma of breast, estrogen receptor positive, stage 3, unspecified laterality (Multi) Start: 02-22-2024 End: 02-22-2024 Subsequent hospital visit by physician Frankie Burger [facility] 5 [facility] Comment on above: Malignant neoplasm o f lower-outer quadrant of right breast of female, estrogen receptor negative (Multi) (Primary Dx); Abnormal mammogram Start: 02-11-2024 End: 02-11-2024 Subsequent hospital visit by physician Mando Ureña [facility] Comment on above: Carcinoma of breast, estrogen receptor positive, stage 3, unspecified laterality (Multi); Cardiotoxicity (Multi) Start: 02-11-2024 End: 02-11-2024 ambulatory [facility] Start: 02-09-2024 End: 02-09-2024 Subsequent hospital visit by physician [facility] Jennyfer Breast Ultrasound 5 [facility] Comment on above: Invasive ductal carc inoma of breast, female, right (Multi); Malignant neoplasm of overlapping sites of right female breast (Multi) Start: 02-09-2024 End: 02-09-2024 Subsequent hospital visit by physician [facility] Jennyfer Christiane 5 [facility] Comment on above: Invasive ductal carc inoma of breast, female, right (Multi); Malignant neoplasm of overlapping sites of right female breast (Multi) Start: 02-09-2024 End: 02-09-2024 Office outpatient new 60 minutes Thai Mohr MD Work Phone: [facility] Comment on above: Abnormal mammogram Carcinoma of [...] 01-24-[address] Daniela Fallon Work Phone: [facility] Work Phone: Start: 01-24-2024 End: 01-24-[address] Daniela Fallon Work Phone: [facility] Work Phone: Start: 01-11-[address] Mandi Fallon Work Phone: [facility] Start: 01-04-2024 End: 01-04-[address] Daniela Fallon Work Phone: [facility] Work Phone: Start: 12-24-2023 End: 12-24-2023 ambulatory RUEL LOZANO MD Facility:B Start: 12-24-2023 End: 12-24-2023 Patient encounter procedure RUEL LOZANO MD [facility] Start: 12-20-2023 Non-patient / Non-visit Dr. Cedric Fallon Work Phone: [facility] Start: 12-08-2023 End: 12-08-[address] Daniela Fallon Work Phone: [facility], Spec[facility] Work Phone: Start: 12-08-2023 End: 12-08-[address] 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 Daniela Fallon Work Phone: [facility] Work Phone: Start: 11-25-2023 End: 11-25-[address] Daniela Fallon Work Phone: [facility] Work Phone: Start: 11-24-2023 End: 11-24-[address] Daniela Fallon Work Phone: [facility] Work Phone: Start: 11-04-2023 End: 11-04-2023 ambulatory JEFFREY DESAI MD Facility:[facility] Start: 11-04-2023 End: 11-04-2023 Patient encounter procedure JEFFREY DESAI MD [facility] Start: 10-29-2023 End: 10-29-2023 ambulatory JEFFREY DESAI MD Facility:A Start: 10-26-[address] TURNER MD Facility:A Start: 10-26-2023 End: 10-26-[address] TURNER MD Facility:[facility] Start: 10-26-2023 End: 10-26-[address] TURNER MD [facility] Start: 08-13-2023 End: 08-13-[address] Daniela Fallon Work Phone: [facility] Work Phone: Start: 08-13-2023 End: 08-13-[address] Daniela Fallon Work Phone: [facility] Work Phone: Start: 07-05-2023 End: 07-05-2023 ambulatory JUAN F MARCOS MD Facility:A Start: 07-05-2023 End: 07-05-2023 SAME DAY STAY JUAN F MARCOS MD [facility] Start: 05-27-2023 End: 05-27-2023 ambulatory JEFFREY DESAI MD Facility:[facility] Start: 05-27-2023 End: 05-27-2023 Patient encounter procedure JEFFREY DESAI MD [facility] Start: 12-25-2022 End: 12-25-[address] Daniela Fallon Work Phone: [facility] Work Phone: Start: 12-25-2022 End: 12-25-[address] Daniela Fallon Work Phone: [facility] Start: 11-12-2022 End: 11-12-2022 ambulatory DANIELA FALLON Facility:[facility] Start: 11-12-2022 End: 11-12-2022 Subsequent hospital visit by physician [facility] Work Phone: Radiology Comment on above: Pain of left middle finger [M79.645] Start: 11-12-2022 End: 11-12-2022 Patient encounter procedure Austin Hall APRN.CNP Work Phone: [facility] Comment on above: Pain of left middle finger (Primary Dx) Start: 10-27-2022 End: 10-27-[address] Daniela Fallon Work Phone: [facility] Start: 10-22-2022 End: 10-22-2022 Patient encounter procedure JOCELINE TINEO PA-C [facility] Start: 10-01-2022 End: 10-01-2022 Patient encounter procedure JOCELINE TNIEO PA-C [facility] Start: 09-15-2022 End: 09-15-[address] Daniela Fallon Work Phone: [facility] Start: 08-28-[address] Kd Fallon Work Phone: [facility] Start: 07-07-2022 End: 07-07-[address] Daniela Fallon Work Phone: [facility] Work Phone: Start: 07-07-2022 End: 07-07-[address] Daniela Fallon Work Phone: [facility] Start: 05-27-2022 End: 05-27-[address] Daniela Fallon Work Phone: [facility] Start: 02-24-2022 End: 02-24-[address] Daniela Fallon Work Phone: [facility] Start: 11-24-2021 End: 11-24-[address] Daniela Fallon Work Phone: [facility] [place] Start: 09-26-2021 End: 09-26-2021 Patient encounter procedure JOCELINE TINEO PA-C [facility] Start: 08-18-2021 End: 08-18-[address] Daniela Fallon Work Phone: [facility] Procedures Date Procedure Procedure Detail Performing Clinician Start: 04-18-2025 CT of head without contrast Dr. Daniela Fallon MD Work Phone: Start: 04-18-[address] Daniela Fallon MD Work Phone: Start: 02-06-[address] Daniela Fallon MD Work Phone: Start: 02-06-[address] Daniela yi MD Work Phone: Comment on above: The atypical pANCA pattern has been obse rved in asignificant percentage of patients with ulcerative colitis,primary sclerosing cholangitis and autoimmune hepatitis.Performed at: [address] [id number] Director: Lizandro Borrego PhD, Phone: [phone] Start: 02-06-2025 Antibody to centromere measurement Dr. Daniela Fallon MD Work Phone: Start: 02-06-2025 Antibody to extractable nuclear antigen measurement Dr. Daniela Fallon MD Work Phone: Start: 02-06-2025 Antibody to SHADIA-[address] Daniela Fallon MD Work Phone: Start: 02-06-2025 Antibody to lupus La protein measurement Dr. Daniela Fallon MD Work Phone: Start: 02-06-2025 Antibody to SS-A measurement Dr. Daniela Fallon MD Work Phone: Start: 02-06-[address] Daniela damico MD Work Phone: Start: 02-06-2025 SOFA COVER INSPECTOR antibody measurement Dr. Daniela damico MD Work [...] w/least 12 lds trcg only w/o i&r Cayden Bae MD Work Phone: Start: 09-24-2024 CT angiography of chest with contrast Dr. Daniela Fallon MD Work Phone: Start: 09-20-2024 Us breast uni real time with image limited Marcelo Davey MD Work Phone: Start: 09-20-2024 End: 09-20-2024 Digital breast tomosynthesis unilateral Marcelo Davey MD Work Phone: Start: 08-09-2024 Renal function panel Awa Dang CREDIT CONTROL MANAGER-C RN OFFICE Work Phone: Start: 08-08-2024 Renal function panel Daniela adams CREDIT CONTROL MANAGER-FLOOR LAYER HELPER Work Phone: Start: 08-08-2024 Glucose quantitative blood xcpt reagent strip Ruel Lozano MD Work Phone: Start: 08-08-2024 End: 08-08-2024 Renal function panel Awa Dang CREDIT CONTROL MANAGER-C RN OFFICE Work Phone: Start: 08-08-2024 PULSE OXIMETRY, SPOT Awa C Zeager CREDIT CONTROL MANAGER-C RN OFFICE Work Phone: Start: 08-08-2024 Glucose quantitative blood xcpt reagent strip Ruel Lozano MD Work Phone: Start: 08-08-2024 Radiologic exam swallow function contrast study Awa C Zeager CREDIT CONTROL MANAGER-FLOOR LAYER HELPER Work Phone: Start: 08-08-2024 PULSE OXIMETRY, SPOT Awa C Zeager CREDIT CONTROL MANAGER-C RN OFFICE Work Phone: Start: 08-08-2024 Glucose quantitative blood xcpt reagent strip Ruel Lozano MD Work Phone: Start: 08-08-2024 Glucose quantitative blood xcpt reagent strip Ruel Lozano MD Work Phone: Start: 08-08-2024 PULSE OXIMETRY, SPOT Awa C Zeager CREDIT CONTROL MANAGER-C RN OFFICE Work Phone: Start: 08-08-2024 Glucose quantitative blood xcpt reagent strip Ruel Lozano MD Work Phone: Start: 08-08-2024 PULSE OXIMETRY, SPOT Awa C Zeager CREDIT CONTROL MANAGER-C RN OFFICE Work Phone: Start: 08-07-2024 PULSE OXIMETRY, SPOT Awa C Zeager CREDIT CONTROL MANAGER-C RN OFFICE Work Phone: Start: 08-07-2024 Glucose quantitative blood xcpt reagent strip Ruel Lozano MD Work Phone: Start: 08-07-2024 PULSE OXIMETRY, SPOT Awa C Zeager CREDIT CONTROL MANAGER-C RN OFFICE Work Phone: Start: 08-07-2024 Renal function panel Awa C Zeager CREDIT CONTROL MANAGER-C RN OFFICE Work Phone: Start: 08-07-2024 Echo tthrc r-t 2d w/wom-mode compl spec&colr d Daniela Campbell CREDIT CONTROL MANAGER-FLOOR LAYER HELPER Work Phone: Start: 08-07-2024 Glucose quantitative blood xcpt reagent strip Ruel Lozano MD Work Phone: Start: 08-07-2024 PULSE OXIMETRY, SPOT Awa C Zeager CREDIT CONTROL MANAGER-C RN OFFICE Work Phone: Start: 08-07-2024 Glucose quantitative blood xcpt reagent strip Ruel Lozano MD Work Phone: Start: 08-07-2024 PULSE OXIMETRY, SPOT Awa C Zeager CREDIT CONTROL MANAGER-C RN OFFICE Work Phone: Start: 08-07-2024 Renal function panel Awa C Zeager CREDIT CONTROL MANAGER-C RN OFFICE Work Phone: Start: 08-07-2024 Radiologic exam chest single view Awa Zhou Zeager CREDIT CONTROL MANAGER-FLOOR LAYER HELPER Work Phone: Start: 08-07-2024 PULSE OXIMETRY, SPOT Awa C Zeager CREDIT CONTROL MANAGER-C RN OFFICE Work Phone: Start: 08-07-2024 Glucose quantitative blood xcpt reagent strip Ruel Lozano MD Work Phone: Start: 08-07-2024 PULSE OXIMETRY, SPOT Awa C Zeager CREDIT CONTROL MANAGER-C RN OFFICE Work Phone: Start: 08-06-2024 PULSE OXIMETRY, SPOT Awa C Zeager CREDIT CONTROL MANAGER-C RN OFFICE Work Phone: Start: 08-06-2024 AIRWAY CLEARANCE TECHNIQUES Awa C Zeager CREDIT CONTROL MANAGER-FLOOR LAYER HELPER Work Phone: Start: 08-06-2024 Glucose quantitative blood xcpt reagent strip Ruel Lozano MD Work Phone: Start: 08-06-2024 Glucose quantitative blood xcpt reagent strip Ruel Lozano MD Work Phone: Start: 08-06-2024 Glucose quantitative blood xcpt reagent strip Ruel Lozano MD Work Phone: Start: 08-06-2024 Renal function panel Awa C Zeager CREDIT CONTROL MANAGER-C RN OFFICE Work Phone: Start: 08-06-2024 Radiologic exam chest 2 views Daniela Campbell CREDIT CONTROL MANAGER-FLOOR LAYER HELPER Work Phone: Start: 08-06-2024 PULSE OXIMETRY, SPOT Awa C Zeager CREDIT CONTROL MANAGER-C RN OFFICE Work Phone: Start: 08-06-2024 PULSE OXIMETRY, SPOT Awa C Zeager CREDIT CONTROL MANAGER-C RN OFFICE Work Phone: Start: 08-05-2024 Glucose quantitative blood xcpt reagent strip Ruel Lozano MD Work Phone: Start: 08-05-2024 PULSE OXIMETRY, SPOT Awa C Zeager CREDIT CONTROL MANAGER-C RN OFFICE Work Phone: Start: 08-05-2024 AIRWAY CLEARANCE TECHNIQUES Awa C Zeager CREDIT CONTROL MANAGER-FLOOR LAYER HELPER Work Phone: Start: 08-05-2024 Glucose quantitative blood xcpt reagent strip Ruel Lozano MD Work Phone: Start: 08-05-2024 PULSE OXIMETRY, SPOT Awa C Zeager CREDIT CONTROL MANAGER-C RN OFFICE Work Phone: Start: 08-05-2024 Glucose quantitative blood xcpt reagent strip Ruel Lozano MD Work Phone: Start: 08-05-2024 PULSE OXIMETRY, SPOT Awa C Zeager CREDIT CONTROL MANAGER-C RN OFFICE Work Phone: Start: 08-05-2024 PULSE OXIMETRY, SPOT Awa C Zeager CREDIT CONTROL MANAGER-C RN OFFICE Work Phone: Start: 08-05-2024 AIRWAY CLEARANCE TECHNIQUES Awa C Zeager CREDIT CONTROL MANAGER-FLOOR LAYER HELPER Work Phone: Start: 08-05-2024 Renal function panel Awa C Zeager CREDIT CONTROL MANAGER-C RN OFFICE Work Phone: Start: 08-05-2024 Radiologic exam chest single view Awa C Zeager CREDIT CONTROL MANAGER-FLOOR LAYER HELPER Work Phone: Start: 08-05-2024 PULSE OXIMETRY, SPOT Awa C Zeager CREDIT CONTROL MANAGER-C RN OFFICE Work Phone: Start: 08-05-2024 PULSE OXIMETRY, SPOT Awa C Zeager CREDIT CONTROL MANAGER-C RN OFFICE Work Phone: Start: 08-04-2024 Glucose quantitative blood xcpt reagent strip Ruel Lozano MD Work Phone: Start: 08-04-2024 Glucose quantitative blood xcpt reagent strip Ruel Lozano MD Work Phone: Start: 08-04-2024 PULSE OXIMETRY, SPOT Awa C Zeager CREDIT CONTROL MANAGER-C RN OFFICE Work Phone: Start: 08-04-2024 AIRWAY CLEARANCE TECHNIQUES Awa C Zeager CREDIT CONTROL MANAGER-FLOOR LAYER HELPER Work Phone: Start: 08-04-2024 PULSE OXIMETRY, SPOT Awa C Zeager CREDIT CONTROL MANAGER-C RN OFFICE Work Phone: Start: 08-04-2024 Glucose quantitative blood xcpt reagent strip Ruel Lozano MD Work Phone: Start: 08-04-2024 Glucose quantitative blood xcpt reagent strip Ruel Lozano MD Work Phone: Start: 08-04-2024 Blood typing serologic rh (d) Kerry R Head CREDIT CONTROL MANAGER-FLOOR LAYER HELPER Work Phone: Start: 08-04-2024 Glucose quantitative blood xcpt reagent strip Ruel Lozano MD Work Phone: Start: 08-04-2024 AIRWAY CLEARANCE TECHNIQUES Awa C Zeager CREDIT CONTROL MANAGER-FLOOR LAYER HELPER Work Phone: Start: 08-04-2024 Glucose quantitative blood xcpt reagent strip Ruel Lozano MD Work Phone: Start: 08-04-2024 Radiologic exam chest single view Awa C Zeager CREDIT CONTROL MANAGER-FLOOR LAYER HELPER Work Phone: Start: 08-04-2024 Renal function panel Maggie D Jacques CREDIT CONTROL MANAGER-FLOOR LAYER HELPER Work Phone: Start: 08-04-2024 Glucose quantitative blood xcpt reagent strip Ruel Lozano MD Work Phone: Start: 08-03-2024 Glucose quantitative blood xcpt reagent strip Ruel Lozano MD Work Phone: Start: 08-03-2024 Glucose quantitative blood xcpt reagent strip Ruel Lozano MD Work Phone: Start: 08-03-2024 Chloride bld Maggieelma Sloanahine CREDIT CONTROL MANAGER-FLOOR LAYER HELPER Work Phone: Start: 08-03-2024 Glucose quantitative blood xcpt reagent strip Ruel Lozano MD Work Phone: Start: 08-03-2024 Radiologic exam abdomen 1 view Maggie D Bomacahine CREDIT CONTROL MANAGER-FLOOR LAYER HELPER Work Phone: Start: 08-03-2024 Radiologic exam chest single view Awa Dang CREDIT CONTROL MANAGER-FLOOR LAYER HELPER Work Phone: Start: 08-03-2024 Glucose quantitative blood xcpt reagent strip Ruel Lozano MD Work Phone: Start: 08-03-2024 Chloride louisa dockery MD Work Phone: Start: 08-03-2024 End: 08-03-2024 Renal function panel Maggie Sloanahine CREDIT CONTROL MANAGER-FLOOR LAYER HELPER Work Phone: Start: 08-03-2024 Glucose quantitative blood xcpt reagent strip Ruel Lozano MD Work Phone: Start: 08-02-2024 Glucose quantitative blood xcpt reagent strip Ruel Lozano MD Work Phone: Start: 08-02-2024 End: 08-02-2024 Chloride bld Maggieelma Sloanahine CREDIT CONTROL MANAGER-FLOOR LAYER HELPER Work Phone: Start: 08-02-2024 Radiologic exam chest single view Letha Jurado PA-C Work Phone: Start: 08-02-2024 End: 08-02-2024 Chloride louisa dockery MD Work Phone: Start: 08-02-2024 End: 08-02-2024 Chloride bld Maggie D Bouchahine CREDIT CONTROL MANAGER-FLOOR LAYER HELPER Work Phone: Start: 08-02-2024 Chloride bld Maggie D Bouchahine CREDIT CONTROL MANAGER-FLOOR LAYER HELPER Work Phone: Start: 08-02-2024 End: 08-02-2024 Chloride bld Maggie D Bouchahine CREDIT CONTROL MANAGER-FLOOR LAYER HELPER Work Phone: Start: 08-02-2024 End: 08-02-2024 Chloride bld Robert dockery MD Work Phone: Start: 08-02-2024 Radiologic exam chest single view Robert Herring MD Work Phone: Start: 08-02-2024 Ecg routine ecg w/least 12 lds trcg only w/o i&r Maggie D Bouchahine CREDIT CONTROL MANAGER-FLOOR LAYER HELPER Work Phone: Start: 08-02-2024 End: 08-02-2024 Renal function panel Robert angel MD Work Phone: Start: 08-01-2024 EXTUBATION Isaac Vicente MD Work Phone: Start: 08-01-2024 Chloride bld Maggie D Bouchahine CREDIT CONTROL MANAGER-FLOOR LAYER HELPER Work Phone: Start: 08-01-2024 Chloride bld Maggie D Bouchahine CREDIT CONTROL MANAGER-FLOOR LAYER HELPER Work Phone: Start: 08-01-2024 Glucose quantitative blood xcpt reagent strip Ruel Lozano MD Work Phone: Start: 08-01-2024 End: 08-01-2024 Chloride bld Maggie D Bouchahine CREDIT CONTROL MANAGER-FLOOR LAYER HELPER Work Phone: Start: 08-01-2024 Radiologic exam chest single view Maggie D Bouchahine CREDIT CONTROL MANAGER-FLOOR LAYER HELPER Work Phone: Start: 08-01-2024 Tamrea-px dev eval & prog sing/dual/multi lead dfb Maggie D Bouchahine CREDIT CONTROL MANAGER-FLOOR LAYER HELPER Work Phone: Start: 08-01-2024 End: 08-01-2024 Chloride bld Maggie D Bouchahine CREDIT CONTROL MANAGER-FLOOR LAYER HELPER Work Phone: Start: 08-01-2024 PULSE OXIMETRY, CONTINUOUS Maggie Hanna CREDIT CONTROL MANAGER-FLOOR LAYER HELPER Work Phone: Start: 08-01-2024 End: 08-01-2024 Coagulation time activated Interface Unspecifiedprovider Work Phone: Start: 08-01-2024 End: 08-01-2024 Coagulation time activated Interface Unspecifiedprovider Work Phone: Start: 08-01-2024 End: 08-01-2024 TRANSFUSE RED BLOOD CELLS Erik Kumar Start: 08-01-2024 End: 08-01-2024 Coagulation time activated Interface Unspecifiedprovider Work Phone: Start: 08-01-2024 PREPARE PLASMA Leticia S Lapping CAA Work Phone: Start: 08-01-2024 PREPARE PLATELETS Leticia S Lapping CAA Work Phone: Start: 08-01-2024 End: 08-01-2024 Coagulation time activated Interface Unspecifiedprovider Work Phone: Start: 08-01-2024 Tamera-px dev eval & prog sing/dual/multi lead dfb Damon Khan MD Work Phone: Start: 08-01-2024 End: 08-01-2024 Coagulation time activated Interface Unspecifiedprovider Work Phone: Start: 08-01-2024 PREPARE RBC Leticia S Lapping CAA Work Phone: Start: 08-01-2024 ANESTHESIA INTRAOPERATIVE JOSHUA Tyrone Thomas MD Work Phone: Start: 08-01-2024 End: 08-01-2024 As-aort grf w/card byp f/aortic ds oth/thn dsj Ruel Lozano MD Work Phone: Start: 08-01-2024 End: 08-01-2024 Rplcmt prost aortic valve open xcp homogrf/stent Ruel Lozano MD Work Phone: Start: 08-01-2024 Blood typing serologic rh (d) Ruel Lozano MD Work Phone: Start: 07-26-2024 Duplex scan extracranial art compl bi study Alondra Hayes CREDIT CONTROL MANAGER-FLOOR LAYER HELPER Work Phone: Start: 07-17-2024 CARD ECHOCARDIOGRAM NON [...] Ct cervical spine w/o contrast material Tk Beverly MD Work Phone: Start: 04-30-2024 Comprehensive metabolic panel Tk Beverly MD Work Phone: Start: 03-14-2024 Diagnostic mammography computer-aided detcj uni Thai Mohr MD Work Phone: Start: 03-14-2024 End: 03-14-2024 Perq breast loc device placemt each les us image Thai Mohr MD Work Phone: Start: 03-08-2024 Ecg routine ecg w/least 12 lds trcg only w/o i&r Cayden Bae MD Work Phone: Start: 03-02-2024 Guidance for placement of CV catheter with port in Chest Marcelo Davey MD Work Phone: Start: 03-02-2024 PULSE OXIMETRY, SPOT Jamison Hermanrian CREDIT CONTROL MANAGER-FLOOR LAYER HELPER, DNP Work Phone: Start: 02-23-2024 Bone &/joint imaging whole body Marcelo Davey MD Work Phone: Start: 02-22-2024 Bx breast w/device 1st lesion ultrasound guid Thai Mohr MD Work Phone: Start: 02-11-2024 TRANSTHORACIC ECHO (TTE) LIMITED MARCELO DAVEY Start: 02-09-2024 Ultrasound elastography ea addl taget lesion Thai Mohr MD Work Phone: Start: 02-09-2024 End: 02-09-2024 Diagnostic mammography computer-aided detcj bi Thai Mohr MD Work Phone: Start: 01-24-2024 Computerized axial [...] pressure is 3 mm Hg. Recommendations: Suggest JOSHUA. Start: 11-12-2022 Radex fingr minimum 2 views Austin Hall APRN.[facility] Work Phone: Start: 10-22-2022 Cardiovascular stress test using pharmacologic stress agent JEFFREY DESAI MD Start: 10-01-2022 Echocardiography JEFFREY DESAI MD Comment on above: Summary: 1. [...] Serum or Plasma Rad Film Start: 10-30-2016 Chante Hall APRN.CNP Work Phone: Start: 10-18-2011 Cardiac catheterization JOCELINE [...] SYSTEM IMPLANTED: The pulse generator is a ClearMomentum Teligen, model E110, serial #[id number]. The RA lead is a Guidant, model 4470, serial #[id number]. The RV lead is a Guidant, model 0184, serial #[id number]. PROCEDURES PERFORMED: Dual chamber ICD implantation. Start: 09-23-2010 Percutaneous transluminal coronary angioplasty JOCELINE TINEO PA-C Comment on above: PERCUTANEOUS TRANSLUMINAL CORONARY ANGIO PLASTY AND STENT OF THE DISTAL RIGHT CORONARY ARTERY Balloons/Stents: 2.0 and 3.0 Cowlitz balloon catheter; two 2.75 Promus stents one [...] OF THE RIGHT CORONARY ARTERY Catheters: 6 Ecuadorean JR4, 3 DRC, and AR1 guide catheters [...] delivery of balloons and stents. Balloons: 2.5 Cowlitz balloon catheter; 2.75 NC Quantum balloon catheter and 2.5 X 15 mm length Promus stent Start: 10-18-2004 Coronary artery bypass graft operation planned [employer] PA-C Comment on above: In 2004 she had coronary artery bypass g rafting, including FULLER to the LAD, SVG to the diagonal and SVG to the obtuse marginal. Also an aortic valve replacement using a Bovine bioprosthesis was done. A descending thoracic aortic aneurysm repair was also performed. All three of these procedures were done during the same hospitalization at [facility] in 2004. The patient had intraoperative ventricular fibrillation, postoperative congestive heart failure with LVEF of 15%, requiring intra-aortic balloon pump. Start: 10-18-2004 Thoracic aortic aneurysm without rupture (disorder) [employer] PA-C Comment on above: A descending thoracic aortic aneurysm re pair was also performed. History of coronary artery bypass grafting Ruel Lozano MD Work Phone: History of coronary artery bypass grafting S/P CABG (coronary artery bypass graft) Ruel Lozano MD Work Phone: History of coronary artery bypass grafting Status post coronary artery bypass grafting Cayden Bae MD Work Phone: History of coronary artery bypass grafting History of coronary artery bypass graft x 3 Dr. Daniela Fallon MD Work Phone: Hysterectomy [employer] PA-C Repair of aortic ane urysm using bifurcation graft JEFFREY DESAI MD Replacement of aorti c valve [employer] PA-C Comment on above: aortic valve replacement using a Bovine bioprosthesis was done Tonsillectomy Beeminder- C Plan of Treatment Date Care Activity Detail Author Start: 2029 RSV Vaccine (1 - 1-dose 75+ series) RSV Vaccine (1 - 1-dose 75+ series) [facility] Start: 07-17-2026 Creatinine measurement Creatinine Level [facility] Start: 07-17-2026 Diabetes mellitus screening Diabetes Screening [facility] Start: 07-17-2026 Potassium measurement Potassium Level [facility] Start: 06-26-2026 Creatinine measurement Creatinine Level [facility] Start: 06-26-2026 Diabetes mellitus screening Diabetes Screening [facility] Start: 06-26-2026 Potassium measurement Potassium Level [facility] Start: 06-05-2026 Creatinine measurement Creatinine Level [facility] Start: 06-05-2026 Diabetes mellitus screening Diabetes Screening [facility] Start: 06-05-2026 Potassium measurement Potassium Level [facility] Start: 05-15-2026 Creatinine measurement Creatinine Level [facility] Start: 05-15-2026 Diabetes mellitus screening Diabetes Screening [facility] Start: 05-15-2026 Potassium measurement Potassium Level [facility] Start: 04-26-2026 Echocardiography Echocardiogram [facility] Start: 04-24-2026 Creatinine measurement Creatinine Level [facility] Start: 04-24-2026 Diabetes mellitus screening Diabetes Screening [facility] Start: 04-24-2026 Potassium measurement Potassium Level [facility] Start: 03-08-2026 Creatinine measurement Creatinine Level [facility] Start: 03-08-2026 Potassium measurement Potassium Level [facility] Start: 01-29-2026 Creatinine measurement Creatinine Level [facility] Start: 01-29-2026 Potassium measurement Potassium Level [facility] Start: 01-01-2026 Creatinine measurement Creatinine Level [facility] Start: 01-01-2026 Potassium measurement Potassium Level [facility] Start: 10-09-2025 Creatinine measurement Creatinine Level [facility] Start: 10-09-2025 Potassium measurement Potassium Level [facility] Start: 09-20-2025 Screening for malignant neoplasm of breast Mammogram [facility] Start: 09-20-2025 End: 09-20-2025 ambulatory 09/20/2025 9:00 AM EST Infusion [facility] [address] [place] [address] [facility] Start: 09-19-2025 End: 09-19-2026 Cancer Ag 27-29 [Units/volume] in Serum or Plasma Cancer Antigen 27-29 Lab Routine Malignant neoplasm of areola of breast in female, estrogen receptor negative, unspecified laterality (Multi) Expected: 09/19/2025, Expires: 09/19/2026 [facility] Work Phone: Comment on above: Expected: 09/19/2025, Expires: Start: 09-19-2025 End: 09-19-2026 CBC W Auto Differential panel - Blood CBC and Auto Differential Lab Routine Malignant neoplasm of areola of breast in female, estrogen receptor negative, unspecified laterality (Multi) Expected: 09/19/2025, Expires: 09/19/2026 [facility] Work Phone: Comment on above: Expected: 09/19/2025, Expires: Start: 09-19-2025 End: 09-19-2026 Comprehensive metabolic 2000 panel - Serum or Plasma Comprehensive Metabolic Panel Lab Routine Malignant neoplasm of areola of breast in female, estrogen receptor negative, unspecified laterality (Multi) Expected: 09/19/2025, Expires: 09/19/2026 [facility] Work Phone: Comment on above: Expected: 09/19/2025, Expires: Start: 09-19-2025 Echocardiography Echocardiogram [facility] Start: 09-19-2025 End: 09-19-2025 Patient encounter procedure 09/19/2025 11:00 AM EST Office Visit [facility] [address] [place] [id number] [place] [address] [place] [address] [facility] Start: 09-17-2025 End: 09-17-2025 ambulatory 09/17/2025 2:30 PM EST Infusion [facility] [address] [place] [phone] [facility] Start: 09-11-2025 End: 09-11-2025 Patient encounter procedure 09/11/2025 1:30 PM EST Appointment [facility] [address] [place] [phone] [facility] Start: 09-11-2025 End: 09-11-2025 Patient encounter procedure 09/11/2025 10:45 AM EST Appointment [facility] [address] [place] [phone] [facility] Start: 09-10-2025 End: 07-31-2026 CT Chest and Abdomen and Pelvis W contrast IV CT chest abdomen pelvis w IV contrast Imaging Routine Malignant neoplasm of lower-outer quadrant of right breast of female, estrogen receptor negative Encounter for antineoplastic chemotherapy Malignant neoplasm of areola of breast in female, estrogen receptor negative, unspecified laterality (Multi) Difficulty maintaining weight loss Expected: 09/10/2025, Expires: 07/31/2026 [facility] Work Phone: Comment on above: Expected: 09/10/2025, [...] maintaining weight loss Expected: 09/10/2025, Expires: 07/31/2026 [facility] Work Phone: Comment on above: Expected: 09/10/2025, Expires: Start: 08-29-2025 End: 08-29-2026 Cancer Ag 27-29 [Units/volume] in Serum or Plasma Cancer Antigen 27-29 Lab Routine Malignant neoplasm of areola of breast in female, estrogen receptor negative, unspecified laterality (Multi) Expected: 08/29/2025, Expires: 08/29/2026 [facility] Work Phone: Comment on above: Expected: 08/29/2025, Expires: Start: 08-29-2025 End: 08-29-2026 CBC W Auto Differential panel - Blood CBC and Auto Differential Lab Routine Malignant neoplasm of areola of breast in female, estrogen receptor negative, unspecified laterality (Multi) Expected: 08/29/2025, Expires: 08/29/2026 [facility] Service Area Work Phone: Comment on above: Expected: 08/29/2025, Expires: Start: 08-29-2025 End: 08-29-2026 Comprehensive metabolic 2000 panel - Serum or Plasma Comprehensive Metabolic Panel Lab Routine Malignant neoplasm of areola of breast in female, estrogen receptor negative, unspecified laterality (Multi) Expected: 08/29/2025, Expires: 08/29/2026 [facility] Work Phone: Comment on above: Expected: 08/29/2025, Expires: Start: 08-29-2025 End: 08-29-2025 ambulatory 08/29/2025 9:00 AM EST Infusion [facility] [address] [place] [phone] [facility] Start: 08-28-2025 End: 08-28-2025 ambulatory 08/28/2025 1:00 PM EST Infusion [facility] [address] [place] [address] [facility] Start: 08-16-2025 Creatinine measurement Creatinine Level [facility] Start: 08-16-2025 Potassium measurement Potassium Level [facility] Start: 08-10-2025 End: 08-10-2025 ambulatory 08/10/2025 10:30 AM EDT Infusion [facility] [address] [place] [address] [facility] Start: 08-09-2025 End: 08-09-2026 Cancer Ag 27-29 [Units/volume] in Serum or Plasma Cancer Antigen 27-29 Lab Routine Malignant neoplasm of areola of breast in female, estrogen receptor negative, unspecified laterality Expected: 08/09/2025, Expires: 08/09/2026 [facility] Work Phone: Comment on above: Expected: 08/09/2025, Expires: Start: 08-09-2025 End: 08-09-2026 CBC W Auto Differential panel - Blood CBC and Auto Differential Lab Routine Malignant neoplasm of areola of breast in female, estrogen receptor negative, unspecified laterality Expected: 08/09/2025, Expires: 08/09/2026 [facility] Work Phone: Comment on above: Expected: 08/09/2025, Expires: Start: 08-09-2025 End: 08-09-2026 Comprehensive metabolic 2000 panel - Serum or Plasma Comprehensive Metabolic Panel Lab Routine Malignant neoplasm of areola of breast in female, estrogen receptor negative, unspecified laterality Expected: 08/09/2025, Expires: 08/09/2026 [facility] Work Phone: Comment on above: Expected: 08/09/2025, Expires: Start: 08-09-2025 Creatinine measurement [facility] Start: 08-09-2025 Potassium measurement [facility] Start: 08-09-2025 End: 08-09-2025 Patient encounter procedure [facility] Start: 08-08-2025 Diabetes mellitus screening [facility] Start: 08-08-2025 End: 08-08-2025 Patient encounter procedure 08/08/2025 8:00 AM EDT Office Visit [facility] [address] [place] [phone] Neli Cox, CREDIT CONTROL MANAGER-FLOOR LAYER HELPER [address] [place] [address] [facility] Start: 08-07-2025 Echocardiography Echocardiogram [facility] Start: 08-07-2025 [facility] Start: 08-07-2025 End: 08-07-2025 ambulatory 08/07/2025 1:00 PM EDT Infusion [facility] [address] [place] [address] [facility] Start: 08-03-2025 End: 05-03-2027 US Heart Transthoracic Transthoracic Echo Limited Echocardiography Routine Encounter for monitoring cardiotoxic drug therapy Expected: 08/03/2025 (Approximate), Expires: 05/03/2027 [facility] Service Area Work Phone: Comment on above: Expected: 08/03/2025 (Approximate), Expi res: 05/03/2027 Start: 08-03-2025 End: 08-03-2025 Patient encounter procedure 08/03/2025 9:00 AM EDT Appointment [facility] [address] [place] [address] [facility] Start: 08-02-2025 Diabetes mellitus screening Diabetes Screening [facility] Start: 08-01-2025 Creatinine measurement Creatinine Level [facility] Start: 08-01-2025 Hemoglobin A1c measurement [facility] Start: 08-01-2025 Potassium measurement Potassium Level [facility] Start: 07-31-2025 End: 07-31-2026 MR Brain WO and W contrast IV MR brain w and wo IV contrast Imaging STAT Malignant neoplasm of lower-outer quadrant of right breast of female, estrogen receptor negative Poor balance Abnormality of gait and mobility Expected: 07/31/2025, Expires: 07/31/2026 [facility] Work Phone: Comment on above: Expected: 07/31/2025, Expires: Start: 07-24-2025 Creatinine measurement Creatinine Level [facility] Start: 07-24-2025 Potassium measurement Potassium Level [facility] Start: 07-19-2025 End: 07-19-2026 Cancer Ag 27-29 [Units/volume] in Serum or Plasma Cancer Antigen 27-29 Lab Routine Malignant neoplasm of areola of breast in female, estrogen receptor negative, unspecified laterality Expected: 07/19/2025, Expires: 07/19/2026 [facility] Work Phone: Comment on above: Expected: 07/19/2025, Expires: Start: 07-19-2025 End: 07-19-2026 CBC W Auto Differential panel - Blood CBC and Auto Differential Lab Routine Malignant neoplasm of areola of breast in female, estrogen receptor negative, unspecified laterality Expected: 07/19/2025, Expires: 07/19/2026 [facility] Work Phone: Comment on above: Expected: 07/19/2025, Expires: Start: 07-19-2025 End: 07-19-2026 Comprehensive metabolic 2000 panel - Serum or Plasma Comprehensive Metabolic Panel Lab Routine Malignant neoplasm of areola of breast in female, estrogen receptor negative, unspecified laterality Expected: 07/19/2025, Expires: 07/19/2026 [facility] Work Phone: Comment on above: Expected: 07/19/2025, Expires: Start: 07-04-2025 End: 07-04-2025 Patient encounter procedure 07/04/2025 10:00 AM EDT Office Visit [facility] [address] [place] [address] Vira Azul, CREDIT CONTROL MANAGER-FLOOR LAYER HELPER [address] [place] [address] [facility] Start: 06-28-2025 End: 06-28-2026 Cancer Ag 27-29 [Units/volume] in Serum or Plasma Cancer Antigen 27-29 Lab Routine Malignant neoplasm of areola of breast in female, estrogen receptor negative, unspecified laterality Expected: 06/28/2025, Expires: 06/28/2026 [facility] Work Phone: Comment on above: Expected: 06/28/2025, Expires: Start: 06-28-2025 End: 06-28-2026 CBC W Auto Differential panel - Blood CBC and Auto Differential Lab Routine Malignant neoplasm of areola of breast in female, estrogen receptor negative, unspecified laterality Expected: 06/28/2025, Expires: 06/28/2026 [facility] Work Phone: Comment on above: Expected: 06/28/2025, Expires: Start: 06-28-2025 End: 06-28-2026 Comprehensive metabolic 2000 panel - Serum or Plasma Comprehensive Metabolic Panel Lab Routine Malignant neoplasm of areola of breast in female, estrogen receptor negative, unspecified laterality Expected: 06/28/2025, Expires: 06/28/2026 [facility] Work Phone: Comment on above: Expected: 06/28/2025, Expires: Start: 06-28-2025 End: 06-28-2025 ambulatory 06/28/2025 9:00 AM EDT Infusion [facility] [address] [facility] [address] [place] [phone] [facility] Start: 06-27-2025 End: 06-27-2025 Patient encounter procedure 06/27/2025 9:40 AM EDT Office Visit [facility] [address] [place] [phone] [place] [address] [place] [address] [facility] Start: 06-26-2025 End: 06-26-2025 ambulatory 06/26/2025 3:00 PM EDT Infusion [facility] [address] [facility] [address] [place] [phone] [facility] Start: 06-23-2025 Creatinine measurement Creatinine Level [facility] Start: 06-23-2025 Potassium measurement Potassium Level [facility] Start: 06-21-2025 End: 05-16-2026 CT Chest and Abdomen and Pelvis W contrast IV [facility] Work Phone: Comment on above: Expected: 06/21/2025 (Approximate), Expi res: 05/16/2026 Once for 1 Occurrenc es starting 06/21/2025 until 06/21/2025 Start: 06-18-2025 Influenza vaccination [facility] Start: 06-08-2025 Creatinine measurement Creatinine Level [facility] Start: 06-08-2025 Potassium measurement Potassium Level [facility] Start: 06-06-2025 End: 06-06-2026 Cancer Ag 27-29 [Units/volume] in Serum or Plasma Cancer Antigen 27-29 Lab Routine Malignant neoplasm of areola of breast in female, estrogen receptor negative, unspecified laterality Expected: 06/06/2025, Expires: 06/06/2026 [facility] Work Phone: Comment on above: Expected: 06/06/2025, Expires: Start: 06-06-2025 End: 06-06-2026 CBC W Auto Differential panel - Blood CBC and Auto Differential Lab Routine Malignant neoplasm of areola of breast in female, estrogen receptor negative, unspecified laterality Expected: 06/06/2025, Expires: 06/06/2026 [facility] Service [facility] Work Phone: Comment on above: Expected: 06/06/2025, Expires: Start: 06-06-2025 End: 06-06-2026 Comprehensive metabolic 2000 panel - Serum or Plasma Comprehensive Metabolic Panel Lab Routine Malignant neoplasm of areola of breast in female, estrogen receptor negative, unspecified laterality Expected: 06/06/2025, Expires: 06/06/2026 [facility] Work Phone: Comment on above: Expected: 06/06/2025, Expires: Start: 05-23-2025 Creatinine measurement Creatinine Level [facility] Start: 05-23-2025 Potassium measurement Potassium Level [facility] Start: 05-17-2025 End: 05-17-2025 ambulatory 05/17/2025 9:00 AM EDT Infusion [facility] [address] [place] [phone] [facility] Start: 05-16-2025 End: 05-16-2025 Patient encounter procedure 05/16/2025 9:00 AM EDT Office Visit [facility] [address] [place] [phone] Neli Cox, CREDIT CONTROL MANAGER-FLOOR LAYER HELPER [address] [address] [place] [address] [facility] Start: 05-15-2025 End: 05-15-2025 ambulatory 05/15/2025 2:30 PM EDT Infusion [facility] [address] [facility] [address] [place] [phone] [facility] Start: 05-03-2025 End: 05-03-2025 Patient encounter procedure 05/03/2025 9:30 AM EDT Office Visit [facility] [address] [place] [address] Yany Page, CREDIT CONTROL MANAGER-FLOOR LAYER HELPER [address] [address] Department of Medicine-Cardiovascular Medicine/[place] [address] [facility] Start: 04-30-2025 Creatinine measurement Creatinine Level [facility] Start: 04-30-2025 Potassium measurement Potassium Level [facility] Start: 04-25-2025 End: 04-25-2026 Cancer Ag 27-29 [Units/volume] in Serum or Plasma Cancer Antigen 27-29 Lab Routine Malignant neoplasm of areola of breast in female, estrogen receptor negative, unspecified laterality Expected: 04/25/2025, Expires: 04/25/2026 [facility] Work Phone: Comment on above: Expected: 04/25/2025, Expires: Start: 04-25-2025 End: 04-25-2026 CBC W Auto Differential panel - Blood CBC and Auto Differential Lab Routine Malignant neoplasm of areola of breast in female, estrogen receptor negative, unspecified laterality Expected: 04/25/2025, Expires: 04/25/2026 [facility] Work Phone: Comment on above: Expected: 04/25/2025, Expires: Start: 04-25-2025 End: 04-25-2026 Comprehensive metabolic 2000 panel - Serum or Plasma Comprehensive Metabolic Panel Lab Routine Malignant neoplasm of areola of breast in female, estrogen receptor negative, unspecified laterality Expected: 04/25/2025, Expires: 04/25/2026 [facility] Work Phone: Comment on above: Expected: 04/25/2025, Expires: Start: 04-25-2025 End: 04-25-2025 ambulatory 04/25/2025 9:00 AM EDT Infusion [facility] [address] [facility] [address] [place] [address] [facility] Start: 04-24-2025 End: 04-24-2025 ambulatory 04/24/2025 1:30 PM EDT Infusion [facility] [address] [facility] [address] [place] [address] [facility] Start: 04-19-2025 Creatinine measurement Creatinine Level [facility] Start: 04-19-2025 Potassium measurement Potassium Level [facility] Start: 04-18-2025 [facility] Start: 04-18-2025 End: 04-18-2025 Patient encounter procedure 04/18/2025 10:30 AM EDT Office Visit [facility] [address] [place] [phone] [place] [address] [place] [address] [facility] Start: 04-05-2025 End: 04-05-2025 Patient encounter procedure 04/05/2025 9:00 AM EDT Appointment [facility] [address] [place] [phone] [facility] Start: 04-04-2025 End: 04-04-2026 Cancer Ag 27-29 [Units/volume] in Serum or Plasma Cancer Antigen 27-29 Lab Routine Malignant neoplasm of areola of breast in female, estrogen receptor negative, unspecified laterality Expected: 04/04/2025, Expires: 04/04/2026 [facility] Work Phone: Comment on above: Expected: 04/04/2025, Expires: Start: 04-04-2025 End: 04-04-2026 CBC W Auto Differential panel - Blood CBC and Auto Differential Lab Routine Malignant neoplasm of areola of breast in female, estrogen receptor negative, unspecified laterality Expected: 04/04/2025, Expires: 04/04/2026 [facility] Work Phone: Comment on above: Expected: 04/04/2025, Expires: Start: 04-04-2025 End: 04-04-2026 Comprehensive metabolic 2000 panel - Serum or Plasma Comprehensive Metabolic Panel Lab Routine Malignant neoplasm of areola of breast in female, estrogen receptor negative, unspecified laterality Expected: 04/04/2025, Expires: 04/04/2026 [facility] Work Phone: Comment on above: Expected: 04/04/2025, Expires: Start: 04-04-2025 End: 04-04-2025 ambulatory 04/04/2025 9:00 AM EDT Infusion [facility] [address] [facility] [address] [place] [address] [facility] Start: 04-03-2025 End: 04-03-2025 ambulatory 04/03/2025 10:00 AM EDT Infusion [facility] [address] [place] [phone] [facility] Start: 03-29-2025 Creatinine measurement Creatinine Level [facility] Start: 03-29-2025 Potassium measurement Potassium Level [facility] Start: 03-28-2025 End: 03-28-2025 Patient encounter procedure 03/28/2025 10:20 AM EDT Office Visit [facility] [address] [place] [address] [place] [address] [place] [address] [facility] Start: 03-21-2025 End: 02-14-2026 CT Chest and Abdomen and Pelvis W contrast IV [facility] Work Phone: Comment on above: Expected: 03/21/2025 (Approximate), Expi res: 02/14/2026 Once for 1 Occurrenc es starting 03/21/2025 until 03/21/2025 Start: 03-17-2025 Echocardiography Echocardiogram [facility] Start: 03-14-2025 End: 03-14-2026 Cancer Ag 27-29 [Units/volume] in Serum or Plasma Cancer Antigen 27-29 Lab Routine Malignant neoplasm of areola of breast in female, estrogen receptor negative, unspecified laterality Expected: 03/14/2025, Expires: 03/14/2026 [facility] Work Phone: Comment on above: Expected: 03/14/2025, Expires: Start: 03-14-2025 End: 03-14-2026 CBC W Auto Differential panel - Blood CBC and Auto Differential Lab Routine Malignant neoplasm of areola of breast in female, estrogen receptor negative, unspecified laterality Expected: 03/14/2025, Expires: 03/14/2026 [facility] Work Phone: Comment on above: Expected: 03/14/2025, Expires: Start: 03-14-2025 End: 03-14-2026 Comprehensive metabolic 2000 panel - Serum or Plasma Comprehensive Metabolic Panel Lab Routine Malignant neoplasm of areola of breast in female, estrogen receptor negative, unspecified laterality Expected: 03/14/2025, Expires: 03/14/2026 [facility] Work Phone: Comment on above: Expected: 03/14/2025, Expires: Start: 03-08-2025 End: 03-08-2025 Patient encounter procedure 03/08/2025 11:30 AM EDT Office Visit [facility] [address] [place] [address] Yany Page, CREDIT CONTROL MANAGER-FLOOR LAYER HELPER [address] [address] Department of Medicine-Cardiovascular Medicine/[place] [address] [facility] Start: 02-27-2025 End: 02-27-2025 Patient encounter procedure 02/27/2025 9:00 AM EDT Appointment [facility] [address] [place] [phone] [facility] Start: 02-21-2025 End: 02-21-2026 Cancer Ag 27-29 [Units/volume] in Serum or Plasma Cancer Antigen 27-29 Lab Routine Malignant neoplasm of areola of breast in female, estrogen receptor negative, unspecified laterality Expected: 02/21/2025, Expires: 02/21/2026 [facility] Work Phone: Comment on above: Expected: 02/21/2025, Expires: Start: 02-21-2025 End: 02-21-2026 CBC W Auto Differential panel - Blood CBC and Auto Differential Lab Routine Malignant neoplasm of areola of breast in female, estrogen receptor negative, unspecified laterality Expected: 02/21/2025, Expires: 02/21/2026 [facility] Work Phone: Comment on above: Expected: 02/21/2025, Expires: Start: 02-21-2025 End: 02-21-2026 Comprehensive metabolic 2000 panel - Serum or Plasma Comprehensive Metabolic Panel Lab Routine Malignant neoplasm of areola of breast in female, estrogen receptor negative, unspecified laterality Expected: 02/21/2025, Expires: 02/21/2026 [facility] Service [facility] Work Phone: Comment on above: Expected: 02/21/2025, Expires: Start: 02-14-2025 End: 02-14-2025 Patient encounter procedure 02/14/2025 10:30 AM EDT Office Visit [facility] [address] [place] [phone] Neli Cox, CREDIT CONTROL MANAGER-FLOOR LAYER HELPER [address] [place] [address] [facility] Start: 02-10-2025 Echocardiography Echocardiogram [facility] Start: 02-08-2025 Creatinine measurement Creatinine Level [facility] Start: 02-08-2025 Potassium measurement Potassium Level [facility] Start: 02-08-2025 Screening for malignant neoplasm of breast [facility] Start: 01-31-2025 End: 01-31-2025 ambulatory 01/31/2025 9:00 AM EDT Infusion [facility] [address] [place] [phone] [facility] Start: 01-29-2025 End: 01-29-2025 ambulatory 01/29/2025 10:00 AM EDT Infusion [facility] [address] [place] [phone] [facility] Start: 01-25-2025 End: 01-04-2027 Onco-Echo Limited (Strain And 3D) Onco-Echo Limited (Strain And 3D) Echocardiography Routine Malignant neoplasm of areola of breast in female, estrogen receptor negative, unspecified laterality Status post administration of cardiotoxic chemotherapy Aortic valve stenosis, etiology of cardiac valve disease unspecified Expected: 01/25/2025 (Approximate), Expires: 01/04/2027 [facility] Work Phone: Comment on above: Expected: 01/25/2025 (Approximate), Expi res: 01/04/2027 Start: 01-10-2025 End: 01-10-2025 ambulatory 01/10/2025 10:30 AM EDT Infusion [facility] [address] [place] [phone] [facility] Start: 01-09-2025 End: 01-09-2026 CBC W Auto Differential panel - Blood CBC and Auto Differential Lab Routine Malignant neoplasm of areola of breast in female, estrogen receptor negative, unspecified laterality Expected: 01/09/2025, Expires: 01/09/2026 [facility] Service [facility] Work Phone: Comment on above: Expected: 01/09/2025, Expires: Start: 01-09-2025 End: 01-09-2026 Comprehensive metabolic 2000 panel - Serum or Plasma Comprehensive Metabolic Panel Lab Routine Malignant neoplasm of areola of breast in female, estrogen receptor negative, unspecified laterality Expected: 01/09/2025, Expires: 01/09/2026 [facility] Work Phone: Comment on above: Expected: 01/09/2025, Expires: 6 Start: 01-08-2025 End: 01-08-2025 ambulatory 01/08/2025 3:30 PM EDT Infusion [facility] [address] [place] [phone] [facility] Start: 12-30-2024 Creatinine measurement Creatinine Level [facility] Start: 12-30-2024 Potassium measurement Potassium Level [facility] Start: 12-21-2024 End: 12-21-2024 Patient encounter procedure [facility] Start: 12-19-2024 End: 12-19-2025 CBC W Auto Differential panel - Blood CBC and Auto Differential Lab Routine Carcinoma of breast, estrogen receptor positive, stage 3, unspecified laterality (Multi) Expected: 12/19/2024, Expires: 12/19/2025 [facility] Work Phone: Comment on above: Expected: 12/19/2024, Expires: Start: 12-19-2024 End: 12-19-2024 Patient encounter procedure 12/19/2024 9:00 AM EST Appointment [facility] [address] [facility] [address] [place] [address] [facility] Start: 12-15-2024 Patient discharge [facility] Start: 12-15-2024 Administration of blood product [facility] Start: 12-14-2024 Incentive spirometry [facility] Start: 12-14-2024 [facility] Start: 12-13-2024 End: 12-13-2024 Patient encounter procedure 12/13/2024 10:40 AM EST Office Visit [facility] [address] [place] [phone] [place] [address] [place] [address] [facility] Start: 12-13-2024 Administration of blood product [facility] Start: 12-13-2024 Administration of blood product [facility] Start: 12-11-2024 Venous catheter care management [facility] Start: 12-11-2024 Following clinical pathway protocol [facility] Start: 12-11-2024 Transfusion of blood product [facility] Start: 12-11-2024 End: 12-11-2024 Administration of blood product [facility] Start: 12-10-2024 [facility] Start: 12-10-2024 Consultation [facility] Start: 12-10-2024 [facility] Start: 12-10-2024 Admission procedure [facility] Start: 12-09-2024 End: 12-09-2024 [facility] Start: 12-09-2024 Care regimes management [facility] Start: 12-09-2024 Notification of physician [facility] Start: 12-09-2024 Application of intermittent pneumatic compression device [facility] Start: 12-09-2024 Assessment of risk of venous thromboembolism [facility] Start: 12-09-2024 Inhalation therapy procedure [facility] Start: 12-09-2024 Insertion of catheter into peripheral vein [facility] Start: 12-09-2024 Introduction of urinary catheter [facility] Start: 12-09-2024 Measuring intake and output [facility] Start: 12-09-2024 Oxygen therapy [facility] Start: 12-09-2024 Providing care according to standard [facility] Start: 12-09-2024 Provision of activity privileges [facility] Start: 12-09-2024 Referral to service [facility] Start: 12-09-2024 [facility] Start: 12-08-2024 Admission procedure [facility] Start: 11-28-2024 End: 11-28-2025 CBC W Auto Differential panel - Blood CBC and Auto Differential Lab Routine Carcinoma of breast, estrogen receptor positive, stage 3, unspecified laterality (Multi) Expected: 11/28/2024, Expires: 11/28/2025 [facility] Service [facility] Work Phone: Comment on above: Expected: 11/28/2024, Expires: Start: 11-28-2024 End: 11-28-2024 ambulatory 11/28/2024 1:00 PM EST Infusion [facility] [address] [facility] [address] [place] [phone] [facility] Start: 11-28-2024 End: 11-28-2024 Patient encounter procedure 11/28/2024 9:00 AM EST Appointment [facility] [address] [facility] [address] [place] [phone] [facility] Start: 11-24-2024 End: 11-24-2024 Patient encounter procedure 11/24/2024 10:00 AM EST Office Visit [facility] [place] [address] [place] [phone] [place] [address] [address] Department [place] [address] [facility] Start: 11-01-2024 End: 11-01-2024 Patient encounter procedure 11/01/2024 10:00 AM EST Office Visit [facility] [address] [facility] [address] [place] [phone] [place] [address] [place] [address] [facility] Start: 10-30-2024 End: 10-30-2024 ambulatory 10/30/2024 2:00 PM EST Infusion [facility] [address] [facility] [address] [place] [phone] [facility] Start: 10-12-2024 End: 10-12-2024 Patient encounter procedure [facility] Start: 10-09-2024 End: 10-09-2024 ambulatory 10/09/2024 10:30 AM EST Infusion [facility] [address] [facility] [address] [place] [phone] [facility] Start: 10-04-2024 End: 10-04-2025 Hepatitis B virus core Ab [Presence] in Serum Hepatitis B Core Antibody, Total Lab Routine Carcinoma of breast, estrogen receptor positive, stage 3, unspecified laterality (Multi) Expected: 10/04/2024, Expires: 10/04/2025 [facility] Work Phone: Comment on above: Expected: 10/04/2024, Expires: Start: 10-04-2024 End: 10-04-2025 Hepatitis B virus surface Ab [Units/volume] in Serum Hepatitis B surface antibody Lab Routine Carcinoma of breast, estrogen receptor positive, stage 3, unspecified laterality (Multi) Expected: 10/04/2024, Expires: 10/04/2025 [facility] Work Phone: Comment on above: Expected: 10/04/2024, Expires: Start: 10-04-2024 End: 10-04-2025 Hepatitis B virus surface Ag [Presence] in Serum or Plasma by Immunoassay Hepatitis B surface antigen Lab Routine Carcinoma of breast, estrogen receptor positive, stage 3, unspecified laterality (Multi) Expected: 10/04/2024, Expires: 10/04/2025 [facility] Work Phone: Comment on above: Expected: 10/04/2024, Expires: Start: 09-29-2024 End: 09-29-2024 ambulatory [facility] Start: 09-27-2024 End: 12-26-2024 Onco-Echo Limited (Strain and 3D) Onco-Echo Limited (Strain and 3D) Echocardiography Routine Cardiomyopathy, ischemic Chronic diastolic heart failure Aortic valve stenosis, etiology of cardiac valve disease unspecified Status post coronary artery bypass grafting Expected: 09/27/2024, Expires: 12/26/2024 [facility] Service Area Work Phone: Comment on above: Expected: 09/27/2024, Expires: Start: 09-27-2024 End: 09-27-2024 ambulatory [facility] Start: 09-27-2024 End: 09-27-2024 Patient encounter procedure 09/27/2024 11:45 AM EST Office Visit [facility] [address] [place] [address] Cayden Bae MD [address] [facility] [address] [facility] Start: 09-24-2024 [facility] Start: 09-24-2024 [facility] Start: 09-20-2024 End: 09-20-2025 PET+CT Bone from skull base to mid-thigh W [id number] IV NM PET CT bone skull base to mid thigh Imaging Routine Carcinoma of breast, estrogen receptor positive, stage 3, unspecified laterality (Multi) Malignant neoplasm of lower-outer quadrant of right breast of female, estrogen receptor negative Expected: 09/20/2024, Expires: 09/20/2025 [facility] Work Phone: Comment on above: Expected: 09/20/2024, Expires: Start: 09-20-2024 End: 09-20-2024 ambulatory [facility] Start: 09-20-2024 End: 09-20-2024 Patient encounter procedure 09/20/2024 10:20 AM EST Office Visit [facility] [address] [id number] [place] [address] [place] [address] [facility] Start: 09-04-2024 End: 09-04-2024 ambulatory [facility] Start: 08-15-2024 End: 09-08-2024 CBC panel - Blood by Automated count [facility] Work Phone: Start: 08-15-2024 End: 08-08-2025 Magnesium [Mass/volume] in Serum or Plasma [facility] Work Phone: Start: 08-15-2024 End: 09-08-2024 Renal function 2000 panel - Serum or Plasma [facility] Work Phone: Start: 08-01-2024 End: 08-01-2024 Admission to same day surgery center 08/01/2024 6:45 AM EDT - 08/01/2024 3:40 PM EDT Surgery [facility] [place] [address] [place] [address] [place] [address] Department [place] [address] Mitral Valve Replacement/CABG [38701 (CPT )] [facility] [place] Comment on above: Mitral Valve Replacement/CABG [32646 (CP T )] Start: 08-01-2024 End: 08-01-2024 As-aort grf w/card byp f/aortic ds oth/thn dsj Repair Ascending Aorta Aneurysm of ascending aorta without rupture ([facility]) 08/01/2024 6:45 AM EDT Virtual [facility] [place] Start: 08-01-2024 End: 08-01-2024 Coronary artery byp w/vein & artery graft 1 vein Mitral Valve Replacement/CABG Aneurysm of ascending aorta without rupture ([facility]) 08/01/2024 6:45 AM EDT Virtual [facility] [place] Start: 08-01-2024 End: 08-01-2024 Rplcmt prost aortic valve open xcp homogrf/stent Replacement Aortic Valve Aneurysm of ascending aorta without rupture ([facility]) 08/01/2024 6:45 AM EDT Virtual [facility] [place] Start: 08-01-2024 Subsequent hospital visit by physician 08/01/2024 5:15 AM EDT Hospital Encounter [facility] [place] [address] [place] [address] [place] [address] Department [place] [address] [facility] [place] Start: 07-24-2024 End: 07-24-2024 Admission to establishment 07/24/2024 8:30 AM EDT Pre-Admission Testing [facility] [address] [place] [phone] [facility] Start: 07-17-2024 End: 07-17-2024 Clinical Support 07/17/2024 11:30 AM EDT Clinical Support [facility] [address] [place] [address] [facility] Start: 07-12-2024 End: 07-12-2024 ambulatory 07/12/2024 9:00 AM EDT Infusion [facility] [address] [facility] [address] [place] [phone] [facility] Start: 07-11-2024 End: 07-11-2024 ambulatory 07/11/2024 2:00 PM EDT Infusion [facility] [address] [facility] [facility] [address] [place] [address] [facility] Start: 07-07-2024 End: 07-07-2024 Patient encounter procedure 07/07/2024 10:30 AM EDT Office Visit [facility] [address] [facility] [address] [place] [phone] [place] [address] Department [place] [address] [facility] Start: 07-06-2024 End: 07-06-2024 Patient encounter procedure 07/06/2024 1:20 PM EDT Office Visit [facility] [address] [facility] [address] [place] [address] [place] [address] [place] [address] [facility] Start: 07-05-2024 End: 07-05-2024 ambulatory 07/05/2024 9:00 AM EDT Infusion [facility] [address] [facility] [address] [place] [phone] [facility] Start: 07-04-2024 End: 07-04-2024 ambulatory 07/04/2024 2:00 PM EDT Infusion [facility] [address] [place] [address] [facility] Start: 06-28-2024 End: 06-28-2024 Patient encounter procedure 06/28/2024 11:45 AM EDT Office Visit [facility] [address] [place] [phone] Cayden Bae MD [address] [place] [address] [facility] Start: 06-28-2024 End: 06-28-2024 Patient encounter procedure 06/28/2024 10:40 AM EDT Office Visit [facility] [address] [place] [address] [place] [address] [place] [address] [facility] Start: 06-21-2024 End: 06-21-2024 ambulatory 06/21/2024 9:00 AM EDT Infusion [facility] [address] [facility] [address] [place] [address] [facility] Start: 06-21-2024 End: 06-21-2024 Home visit 06/21/2024 9:00 AM EDT Home Care Visit [facility] [address] [place] [address] Celia Dang, PT [facility] Start: 06-20-2024 End: 06-20-2024 ambulatory 06/20/2024 3:00 PM EDT Infusion [facility] [address] [facility] [address] [place] [address] [facility] Start: 06-18-2024 Covid-19 Vaccine () Covid-19 Vaccine () [facility] Start: 06-18-2024 COVID-19 Vaccine () COVID-19 Vaccine () [facility] Start: 06-18-2024 COVID-19 Vaccine () COVID-19 Vaccine () [facility] Start: 06-18-2024 Influenza vaccination [facility] Start: 06-18-2024 [facility] Start: 06-15-2024 End: 06-12-2025 CBC W Auto Differential panel - Blood CBC and Auto Differential Lab Routine Carcinoma of breast, estrogen receptor positive, stage 3, unspecified laterality (Multi) Malignant neoplasm of lower-outer quadrant of right breast of female, estrogen receptor negative (Multi) Expected: 06/15/2024 (Approximate), Expires: 06/12/2025 [facility] Work Phone: Comment on above: Expected: 06/15/2024 (Approximate), Expi res: 06/12/2025 Start: 06-15-2024 End: 06-12-2025 Comprehensive metabolic 2000 panel - Serum or Plasma Comprehensive Metabolic Panel Lab Routine Carcinoma of breast, estrogen receptor positive, stage 3, unspecified laterality (Multi) Malignant neoplasm of lower-outer quadrant of right breast of female, estrogen receptor negative (Multi) Expected: 06/15/2024 (Approximate), Expires: 06/12/2025 [facility] Work Phone: Comment on above: Expected: 06/15/2024 (Approximate), Expi res: 06/12/2025 Start: 06-14-2024 End: 06-14-2025 Basic metabolic 2000 panel - Serum or Plasma Basic Metabolic Panel Lab Routine Carcinoma of breast, estrogen receptor positive, stage 3, unspecified laterality (Multi) Expected: 06/14/2024, Expires: 06/14/2025 [facility] Work Phone: Comment on above: Expected: 06/14/2024, Expires: Start: 06-14-2024 End: 06-14-2025 CBC W Auto Differential panel - Blood CBC and Auto Differential Lab Routine Carcinoma of breast, estrogen receptor positive, stage 3, unspecified laterality (Multi) Expected: 06/14/2024, Expires: 06/14/2025 [facility] Work Phone: Comment on above: Expected: 06/14/2024, Expires: Start: 06-14-2024 End: 06-14-2024 ambulatory 06/14/2024 9:00 AM EDT Infusion [facility] [address] [place] [address] [facility] Start: 06-14-2024 End: 06-14-2024 Home visit 06/14/2024 9:00 AM EDT Home Care Visit [facility] [address] [place] [address] Leo Nelson, [facility] Start: 06-13-2024 End: 06-13-2024 ambulatory 06/13/2024 2:00 PM EDT Infusion [facility] [address] [facility] [address] [place] [address] [facility] Start: 06-07-2024 End: 06-07-2025 CBC W Auto Differential panel - Blood CBC and Auto Differential Lab Routine Carcinoma of breast, estrogen receptor positive, stage 3, unspecified laterality (Multi) Expected: 06/07/2024, Expires: 06/07/2025 [facility] Work Phone: Comment on above: Expected: 06/07/2024, Expires: Start: 06-07-2024 End: 06-07-2025 Comprehensive metabolic 2000 panel - Serum or Plasma Comprehensive metabolic panel Lab Routine Carcinoma of breast, estrogen receptor positive, stage 3, unspecified laterality (Multi) Expected: 06/07/2024, Expires: 06/07/2025 [facility] Work Phone: Comment on above: Expected: 06/07/2024, Expires: Start: 06-07-2024 End: 06-07-2024 ambulatory 06/07/2024 9:30 AM EDT Infusion [facility] [address] [place] [address] [facility] Start: 06-07-2024 End: 06-07-2024 Patient encounter procedure 06/07/2024 8:30 AM EDT Office Visit [facility] [address] [place] [address] Neli Cox, CREDIT CONTROL MANAGER-FLOOR LAYER HELPER [address] [place] [address] [facility] Start: 06-06-2024 End: 06-06-2024 Patient encounter procedure 06/06/2024 11:00 AM EDT Office Visit [facility] [address] [place] [address] Neli Cox, CREDIT CONTROL MANAGER-FLOOR LAYER HELPER [address] [place] [address] [facility] Start: 05-31-2024 End: 05-31-2024 ambulatory 05/31/2024 9:00 AM EDT Infusion [facility] [address] [facility] [address] [place] [address] [facility] Start: 05-30-2024 End: 05-30-2024 ambulatory 05/30/2024 2:00 PM EDT Infusion [facility] [address] [facility] [address] [place] [address] [facility] Start: 05-24-2024 End: 05-24-2025 Basic metabolic 2000 panel - Serum or Plasma Basic Metabolic Panel Lab Routine Carcinoma of breast, estrogen receptor positive, stage 3, unspecified laterality (Multi) Expected: 05/24/2024, Expires: 05/24/2025 [facility] Work Phone: Comment on above: Expected: 05/24/2024, Expires: Start: 05-24-2024 End: 05-24-2025 CBC W Auto Differential panel - Blood CBC and Auto Differential Lab Routine Carcinoma of breast, estrogen receptor positive, stage 3, unspecified laterality (Multi) Expected: 05/24/2024, Expires: 05/24/2025 [facility] Work Phone: Comment on above: Expected: 05/24/2024, Expires: Start: 05-24-2024 End: 05-24-2024 ambulatory 05/24/2024 9:00 AM EDT Infusion [facility] [address] [facility] [address] [place] [address] [facility] Start: 05-23-2024 End: 05-23-2024 ambulatory 05/23/2024 2:00 PM EDT Infusion [facility] [address] [facility] [address] [place] [address] [facility] Start: 05-17-2024 End: 05-17-2025 CBC W Auto Differential panel - Blood CBC and Auto Differential Lab Routine Carcinoma of breast, estrogen receptor positive, stage 3, unspecified laterality (Multi) Expected: 05/17/2024, Expires: 05/17/2025 [facility] Service [facility] Work Phone: Comment on above: Expected: 05/17/2024, Expires: Start: 05-17-2024 End: 05-17-2025 Comprehensive metabolic 2000 panel - Serum or Plasma Comprehensive metabolic panel Lab Routine Carcinoma of breast, estrogen receptor positive, stage 3, unspecified laterality (Multi) Expected: 05/17/2024, Expires: 05/17/2025 [facility] Work Phone: Comment on above: Expected: 05/17/2024, Expires: Start: 05-17-2024 End: 05-17-2024 Telemedicine consultation with patient 05/17/2024 10:00 AM EDT Telemedicine [facility] [address] [place] [address] [place] [address] [place] [address] [facility] Start: 05-17-2024 End: 05-17-2024 ambulatory 05/17/2024 9:00 AM EDT Infusion [facility] [address] [place] [phone] [facility] Start: 05-16-2024 End: 05-16-2024 Patient encounter procedure 05/16/2024 9:30 AM EDT Office Visit [facility] [address] [place] [address] [place] [address] Department of Surgery-[place] [address] [facility] Start: 05-10-2024 End: 05-10-2024 ambulatory 05/10/2024 9:00 AM EDT Infusion [facility] [address] [place] [phone] [facility] Start: 05-09-2024 End: 05-09-2024 ambulatory 05/09/2024 2:00 PM EDT Infusion [facility] [address] [place] [phone] [facility] Start: 05-03-2024 End: 05-03-2024 ambulatory 05/03/2024 9:00 AM EDT Infusion [facility] [address] [place] [phone] [facility] Start: 05-02-2024 End: 05-02-2024 ambulatory 05/02/2024 3:30 PM EDT Infusion [facility] [address] [facility] [address] [place] [phone] [facility] Start: 04-26-2024 End: 04-26-2025 Basic metabolic 2000 panel - Serum or Plasma Basic Metabolic Panel Lab Routine Carcinoma of breast, estrogen receptor positive, stage 3, unspecified laterality (Multi) Expected: 04/26/2024, Expires: 04/26/2025 [facility] Work Phone: Comment on above: Expected: 04/26/2024, Expires: Start: 04-26-2024 End: 04-26-2025 CBC W Auto Differential panel - Blood CBC and Auto Differential Lab Routine Carcinoma of breast, estrogen receptor positive, stage 3, unspecified laterality (Multi) Expected: 04/26/2024, Expires: 04/26/2025 [facility] Work Phone: Comment on above: Expected: 04/26/2024, Expires: Start: 04-26-2024 End: 04-26-2025 Comprehensive metabolic 2000 panel - Serum or Plasma Comprehensive metabolic panel Lab Routine Carcinoma of breast, estrogen receptor positive, stage 3, unspecified laterality (Multi) Expected: 04/26/2024, Expires: 04/26/2025 [facility] Work Phone: Comment on above: Expected: 04/26/2024, Expires: Start: 04-26-2024 End: 04-26-2024 ambulatory 04/26/2024 9:00 AM EDT Infusion [facility] [address] [facility] [address] [place] [address] [facility] Start: 04-25-2024 End: 04-19-2025 CBC W Auto Differential panel - Blood CBC and Auto Differential Lab Routine Malignant neoplasm of lower-outer quadrant of right breast of female, estrogen receptor negative (Multi) Expected: 04/25/2024 (Approximate), Expires: 04/19/2025 [facility] Work Phone: Comment on above: Expected: 04/25/2024 (Approximate), Expi res: 04/19/2025 Start: 04-25-2024 End: 04-19-2025 Comprehensive metabolic 2000 panel - Serum or Plasma Comprehensive Metabolic Panel Lab Routine Malignant neoplasm of lower-outer quadrant of right breast of female, estrogen receptor negative (Multi) Expected: 04/25/2024 (Approximate), Expires: 04/19/2025 [facility] Work Phone: Comment on above: Expected: 04/25/2024 (Approximate), Expi res: 04/19/2025 Start: 04-21-2024 End: 04-21-2024 ambulatory 04/21/2024 2:00 PM EDT Infusion [facility] [address] [facility] [address] [place] [address] [facility] Start: 04-21-2024 End: 04-19-2025 CBC W Auto Differential panel - Blood CBC and Auto Differential Lab STAT Malignant neoplasm of lower-outer quadrant of right breast of female, estrogen receptor negative (Multi) Expected: 04/21/2024 (Approximate), Expires: 04/19/2025 [facility] Work Phone: Comment on above: Expected: 04/21/2024 (Approximate), Expi res: 04/19/2025 Start: 04-19-2024 End: 04-19-2025 CBC W Auto Differential panel - Blood CBC and Auto Differential Lab Routine Carcinoma of breast, estrogen receptor positive, stage 3, unspecified laterality (Multi) Expected: 04/19/2024, Expires: 04/19/2025 [facility] Service [facility] Work Phone: Comment on above: Expected: 04/19/2024, Expires: Start: 04-19-2024 End: 04-19-2025 Comprehensive metabolic 2000 panel - Serum or Plasma Comprehensive metabolic panel Lab Routine Carcinoma of breast, estrogen receptor positive, stage 3, unspecified laterality (Multi) Expected: 04/19/2024, Expires: 04/19/2025 [facility] Work Phone: Comment on above: Expected: 04/19/2024, Expires: Start: 04-19-2024 End: 04-19-2024 ambulatory 04/19/2024 11:00 AM EDT Infusion [facility] [address] [place] [address] [facility] Start: 04-19-2024 End: 04-19-2024 Patient encounter procedure 04/19/2024 9:30 AM EDT Office Visit [facility] [address] [place] [address] Neli Cox, CREDIT CONTROL MANAGER-FLOOR LAYER HELPER [address] [place] [address] [facility] Start: 04-12-2024 End: 04-12-2024 Patient encounter procedure 04/12/2024 9:45 AM EDT Office Visit [facility] [address] [place] [address] Cayden Bae MD [address], [address] [address] [facility] Start: 04-05-2024 End: 04-05-2024 ambulatory 04/05/2024 1:00 PM EDT Infusion [facility] [address] [place] [address] [facility] Start: 03-24-2024 End: 03-24-2024 Patient encounter procedure 03/24/2024 1:30 PM EDT Appointment [facility] [address] [place] [address] [facility] Start: 03-17-2024 End: 03-17-2024 Patient encounter procedure 03/17/2024 1:00 PM EDT Appointment [facility] [address] [place] [phone] [facility] Start: 03-14-2024 End: 03-14-2024 Patient encounter procedure [facility] Start: 03-08-2024 End: 03-08-2025 Natriuretic peptide B [Mass/volume] in Blood B-Type Natriuretic Peptide Lab Routine Cardiomyopathy, ischemic Other cardiomyopathy (Multi) Expected: 03/08/2024 (Approximate), Expires: 03/08/2025 [facility] Service [facility] Work Phone: Comment on above: Expected: 03/08/2024 (Approximate), Expi res: 03/08/2025 Start: 03-08-2024 End: 03-08-2025 Troponin I.cardiac panel - Serum or Plasma by High sensitivity method Troponin I, High Sensitivity Lab Routine Cardiomyopathy, ischemic Expected: 03/08/2024 (Approximate), Expires: 03/08/2025 [facility] Work Phone: Comment on above: Expected: 03/08/2024 (Approximate), Expi res: 03/08/2025 Start: 03-08-2024 End: 03-08-2025 Heart Transthoracic Transthoracic Echo (TTE) Complete Echocardiography Routine Cardiomyopathy, ischemic Chronic diastolic heart failure (Multi) Aortic valve stenosis, etiology of cardiac valve disease unspecified Expected: 03/08/2024, Expires: 03/08/2025 [facility] Work Phone: Comment on above: Expected: 03/08/2024, Expires: Start: 03-08-2024 End: 03-08-2024 Patient encounter procedure [facility] Start: 03-02-2024 End: 03-02-2024 Patient encounter procedure [facility] Start: 02-23-2024 End: 02-23-2024 Patient encounter procedure [facility] Start: 02-22-2024 End: 02-22-2024 Patient encounter procedure [facility] Start: 02-11-2024 End: 02-11-2024 Patient encounter procedure 02/11/2024 11:00 AM EDT Appointment [facility] [address] [place] [address] [facility] Start: 02-09-2024 End: 02-08-2025 Guidance for placement of CV catheter with port in Chest IR CVC port placement Imaging STAT Carcinoma of breast, estrogen receptor positive, stage 3, unspecified laterality (Multi) Expected: 02/09/2024 (Approximate), Expires: 02/08/2025 [facility] Work Phone: Comment on above: Expected: 02/09/2024 (Approximate), Expi res: 02/08/2025 Start: 02-09-2024 End: 04-10-2025 MG Guidance for needle localization of Breast - right BI breast right core needle biopsy Imaging Routine Abnormal mammogram Expected: 02/09/2024, Expires: 04/10/2025 [facility] Service Area Work Phone: Comment on above: Expected: 02/09/2024, Expires: Start: 02-09-2024 End: 02-08-2025 NM Whole body Bone Views NM bone whole body Imaging Routine Carcinoma of breast, estrogen receptor positive, stage 3, unspecified laterality (Multi) Expected: 02/09/2024 (Approximate), Expires: 02/08/2025 [facility] Work Phone: Comment on above: Expected: 02/09/2024 (Approximate), Expi res: 02/08/2025 Start: 02-09-2024 End: 02-08-2026 US Heart Transthoracic Transthoracic Echo Limited Echocardiography STAT Carcinoma of breast, estrogen receptor positive, stage 3, unspecified laterality (Multi) Cardiotoxicity (Multi) Expected: 02/09/2024 (Approximate), Expires: 02/08/2026 [facility] Service Area Work Phone: Comment on above: Expected: 02/09/2024 (Approximate), Expi res: 02/08/2026 Start: 02-09-2024 End: 02-09-2024 Patient encounter procedure [facility] Start: 01-22-2024 COVID-19 Vaccine ( season) COVID-19 Vaccine () [facility] Start: 01-17-2024 Subsequent hospital visit by physician 01/17/2024 Hospital Encounter [facility] [place] [address] [address] [place] [address] [place] [address] Department of Surgery-Cardiac [place] [id number] [facility] [place] Start: 12-20-2023 Patient referral [facility] Work Phone: Start: 12-09-2023 Patient referral [facility] Work Phone: Start: 12-03-2023 Patient referral [facility] Work Phone: Start: 11-17-2023 COVID-19 Vaccine () COVID-19 Vaccine () [facility] Start: 10-18-2023 Advance Directive Discussion Advance Directive Discussion [facility] Start: 10-13-2023 COVID-19 Vaccine (2 - Pfizer risk series) COVID-19 Vaccine (2 - Pfizer risk series) [facility] Start: 08-28-2023 Pneumococcal Vaccine: 65+ (2 of 2 - PCV) Pneumococcal Vaccine: 65+ (2 of 2 - PCV) [facility] Start: 08-28-2023 Pneumococcal Vaccine: 65+ Years (2 - PCV) Pneumococcal Vaccine: 65+ Years (2 - PCV) [facility] Start: 08-28-2023 Pneumococcal Vaccine: 65+ Years (2 of 2 - PCV) Pneumococcal Vaccine: 65+ Years (2 of 2 - PCV) [facility] Start: 10-18-2022 ADVANCE DIRECTIVE DISCUSSION ADVANCE DIRECTIVE DISCUSSION [facility] Start: 10-18-2022 DEPRESSION ASSESSMENT DEPRESSION ASSESSMENT [facility] Start: 06-02-2022 LIPID SCREEN LIPID SCREEN [facility] Start: 05-27-2022 Lipid panel [facility] Start: 12-18-2021 COVID-19 VACCINE (4 - Booster for Pfizer series) COVID-19 VACCINE (4 - Booster for Pfizer series) [facility] Start: 03-23-2021 DTaP/Tdap/Td Vaccines (1 - Tdap) DTaP/Tdap/Td Vaccines (1 - Tdap) [facility] Start: 03-23-2021 Urine microalbumin profile [facility] Start: 03-23-2021 [facility] Start: 04-27-2019 DIABETES SCREEN DIABETES SCREEN [facility] Start: 04-27-2019 Diabetes Screening Diabetes Screening [facility] Start: 2019 BONE DENSITY BONE DENSITY [facility] Start: 2019 Screening for osteoporosis [facility] Start: 06-02-2018 Hepatitis B surface antibody level LDL CHOLESTEROL [facility] Start: 05-27-2018 Hepatitis B surface antibody level LDL Cholesterol [facility] Start: 10-30-2017 Mammography MAMMO[address] [facility] Start: 10-30-2017 Screening for malignant neoplasm of breast Mammogram Screening [facility] Start: 2014 RSV High Risk: (Elderly (60+) or Population) (1 - Risk 60-74 years 1-dose series) RSV High Risk: (Elderly (60+) or Population) (1 - Risk 60-74 years 1-dose series) [facility] Start: 2014 RSV patients and/or patients aged 60+ years (1 - 1-dose 60+ series) RSV patients and/or patients aged 60+ years (1 - 1-dose 60+ series) [facility] Start: 2014 [facility] Start: 08-19-2013 PNEUMOCOCCAL: 65+ (2 - PCV) PNEUMOCOCCAL: 65+ (2 - PCV) [facility] Start: 01-27-2004 SHINGRIX VACCINE (1 of 2) SHINGRIX VACCINE (1 of 2) [facility] Start: 01-27-2004 Zoster Vaccines (1 of 2) Zoster Vaccines (1 of 2) [facility] Start: 1999 COLOGUARD (FIT-DNA) COLOGUARD (FIT-DNA) [facility] Start: 1999 Colonoscopy COLONOSCOPY [facility] Start: 1999 COLORECTAL CANCER SCREENING COLORECTAL CANCER SCREENING [facility] Start: [address] COLONOGRAPHY [facility] Start: 1999 FECAL OCCULT BLOOD FECAL OCCULT BLOOD [facility] Start: 1999 Screening for malignant neoplasm of colon [facility] Start: 1999 SIGMOIDOSCOPY SIGMOIDOSCOPY [facility] Start: 1994 Screening for malignant neoplasm of breast Mammogram [facility] Start: 1973 Zoster Vaccines (1 of 2) Zoster Vaccines (1 of 2) [facility] Start: 1973 [facility] Start: 01-27-1972 ANNUAL PCP TEAM CHRONIC DISEASE VISIT ANNUAL PCP TEAM CHRONIC DISEASE VISIT [facility] Start: 01-27-1972 Anxiety Screening Anxiety Screening [facility] Start: 01-27-1972 Depression Screening Depression Screening [facility] Start: 01-27-1972 Diabetes mellitus screening Diabetes Screening [facility] Start: 01-27-1972 HEPATITIS C SCREENING HEPATITIS C SCREENING [facility] Start: 01-27-1972 Hepatitis C screening [facility] Start: 1955 MMR Vaccines (1 of 1 - Standard series) MMR Vaccines (1 of 1 - Standard series) [facility] Start: 1954 Annual wellness visit [facility] Start: 1954 Echocardiography Echocardiogram [facility] Start: 1954 Hemoglobin A1c measurement Diabetes: Hemoglobin A1C [facility] Start: 1954 Lipid panel Lipid Panel [facility] Start: 1954 Medicare Annual Wellness Visit [facility] Start: 1954 Screening for malignant neoplasm of colon [facility] Start: 1954 Screening for osteoporosis [facility] Airway Clearance Techniques Device/modality: EzPap [facility] Work Phone: Cardiac device check - Inpatient [facility] Work Phone: Cardiac device check - Surgery [facility] Service [facility] Work Phone: CBC panel - Blood by Automated count [facility] Work Phone: Complete blood count [facility] End: 08-01-2024 Determination of physical activity tolerance [facility] Work Phone: Electrocardiogram 12 -lead PRN for arrhythmia [facility] Work Phone: End: 08-04-2024 Encourage deep breathing and coughing [facility] Work Phone: End: 08-04-2024 Incentive spirometry Instruct [facility] Work Phone: Lactoferrin [Presenc e] in Stool by Immunoassay [facility] Magnesium [Mass/volu me] in Serum or Plasma [facility] Work Phone: Patient Education [facility] Work Phone: Patient referral [facility] Work Phone: Positron emission tomography with computed tomography [facility] Protein measurement [facility] Pulse oximetry, spot [facility] Work Phone: Renal function 2000 panel - Serum or Plasma [facility] Work Phone: RF videography Hypop harynx and Esophagus Views for swallowing function W speech and W barium contrast PO [facility] Work Phone: Rplcmt prost aortic valve open xcp homogrf/stent Replacement Aortic Valve and Aortic Root and Ascending Aorta 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 (CMS/HCC) [facility] [place] End: 02-07-2024 Study Interpretation of outside study [facility] Work Phone: Comment on above: Once for 1 Occurrences starting 02/07/20 24 until 02/07/2024 Surgical pathology study [facility] Work Phone: Comment on above: Release Upon Ordering for 1 Occurrences starting 02/22/2024, 1 completed Surgical pathology study [facility] Work Phone: End: 08-04-2024 Urinalysis complete panel - Urine [facility] Work Phone: End: 02-11-2024 US Heart Transthoracic [facility] Work Phone: Comment on above: Once for 1 Occurrences starting 02/11/20 until 02/11/2024 End: 03-17-2024 US Heart Transthoracic [facility] Service Area Work Phone: Comment on above: Once for 1 Occurrences starting 03/17/20 until 03/17/2024 End: 09-19-2024 US Heart Transthoracic [facility] Service Area Work Phone: Comment on above: Once for 1 Occurrences starting 09/19/20 until 09/19/2024 End: 04-26-2025 US Heart Transthoracic [facility] Service Area Work Phone: Comment on above: Once for 1 Occurrences starting 04/26/20 until 04/26/2025 End: 04-19-2024 X[address] [facility] Work Phone: Comment on above: Once for 1 Occurrences starting 04/19/20 until 04/19/2024 Immunizations Immunization Date Immunization Notes Care Provider [facility] 07-13-2025 Seasonal trivalent influenza vaccine, adjuvanted, preservative free Dr. Daniela Fallon MD Work Phone: [facility] 09-22-2023 Flu vaccine, quadrivalent, high-dose, preservative free, age 65y+ (FLUZONE) Neli Cox CREDIT CONTROL MANAGER-FLOOR LAYER HELPER Work Phone: [facility] Work Phone: 09-22-2023 influenza virus vacc ine, unspecified formulation Neli Cox CREDIT CONTROL MANAGER-FLOOR LAYER HELPER Work Phone: [facility] Work Phone: 08-28-2022 influenza, injectabl e, quadrivalent, preservative free Dr. Daniela Fallon Work Phone: [facility] 08-28-2022 influenza, seasonal, injectable Dr. Daniela Fallon Work Phone: [facility] 08-28-2022 pneumococcal polysaccharide vaccine, [address] Daniela Fallon Work Phone: [facility] 08-28-2022 influenza virus vacc ine, unspecified formulation Xr Hansen Work Phone: [facility] 10-23-2021 Covid (Pfizer) Dr. Daniela Fallon Work Phone: [facility] 03-22-2021 tetanus and diphther ia toxoids, adsorbed, preservative free, for adult use (5 Lf of tetanus toxoid and 2 Lf of diphtheria toxoid) Austin Hall APRN.[facility] Work Phone: [facility] Work Phone: 03-20-2021 Covid (Pfizer) Dr. Daniela Fallon Work Phone: [facility] 02-27-2021 Covid (Pfizer) Dr. Daniela Fallon Work Phone: [facility] 07-16-2020 Fluad Quad (65yr up)(PF) 60 mcg (15 mcg x 4)/0.5mL IM syringe (flu vac Dr. Daniela Fallon Work Phone: [facility] Work Phone: 07-16-2020 influenza, injectabl e, quadrivalent, preservative free Dr. Daniela Fallon Work Phone: [facility] 07-16-2020 influenza, seasonal, injectable Dr. Daniela Fallon Work Phone: [facility] 07-16-2020 influenza, seasonal, injectable, preservative free Dr. Daniela Fallon Work Phone: [facility] Work Phone: 09-22-2019 pneumococcal conjuga te vaccine, [address] Daniela Fallon Work Phone: [facility] 09-22-2019 pneumococcal vaccine , unspecified formulation Dr. Daniela Fallon Work Phone: [facility] Work Phone: 06-27-2019 influenza, high dose seasonal, preservative-free Neli Cox CREDIT CONTROL MANAGER-FLOOR LAYER HELPER Work Phone: [facility] Work Phone: 08-26-2017 influenza, injectabl e, madin tayler canine kidney, preservative free Neli Benji CREDIT CONTROL MANAGER-FLOOR LAYER HELPER Work Phone: [facility] Work Phone: 09-21-2016 influenza, injectabl e, quadrivalent, contains preservative Austin Hall CREDIT CONTROL MANAGER.FLOOR LAYER HELPER Work Phone: [facility] 08-22-2015 influenza, injectabl e, quadrivalent, contains preservative Austin Hall CREDIT CONTROL MANAGER.FLOOR LAYER HELPER Work Phone: [facility] Work Phone: 08-15-2014 influenza, seasonal, injectable Austin Hall CREDIT CONTROL MANAGER.FLOOR LAYER HELPER Work Phone: [facility] Work Phone: 08-15-2013 influenza virus vacc ine, unspecified formulation Austin Hall APRN.FLOOR LAYER HELPER Work Phone: [facility] Work Phone: 08-19-2012 pneumococcal polysaccharide vaccine, 23 valent Austin Hall APRN.FLOOR LAYER HELPER Work Phone: [facility] Work Phone: 07-18-2010 influenza virus vacc ine, unspecified formulation Austin Hall APRN.FLOOR LAYER HELPER Work Phone: [facility] 07-15-2009 influenza virus vacc ine, unspecified formulation Austin Hall APRN.FLOOR LAYER HELPER Work Phone: [facility] Work Phone: Payers Date Payer Category Payer Self-pay [id number] 2014 Medicaid [employer] MY[employer]ICAID [id number] 2014-Present [phone] [address] [place] [address] Medicaid [id number] 2014 Medicare [employer] ARE MYCARE [employer] MEDICARE [id number] 2014-Present [phone] [address] [place] [address] Medicare [id number] 2014 Dual Eligibility Medicare/Medicaid Organization [id number] 2014 Unknown [id number]. 1.13.647.2 .7.3.030531.315 2014 Unknown [id number] 2007 Unknown [id number] 1954 Unknown [id number] 2.840.1.205390.3.579.2 .1954 Unknown [id number] 2.840.1.687036.3.579.2 .1954 Unknown [id number] 2.840.1.901796.3.579.2 .1954 Unknown [id number] 2.16840.1.937280.3.579.2 .1954 Unknown [id number] 2.16840.1.157589.3.579.2 .1954 Unknown [id number] 2.840.1.088058.3.579.2 .1954 Unknown [id number] 2.16.840.1.470844.3.579.2 .1954 Unknown [id number] 2.16.840.1.370324.3.579.2 .1954 Unknown [id number] 2.16.840.1.600610.3.579.2 .1954 Unknown [id number] 2.16.840.1.426056.3.579.2 .1246 1954 Unknown [id number] 2.16.840.1.410998.3.579.2 .1246 1954 Unknown [id number] 2.16.840.1.099955.3.579.2 .1241 1954 Unknown [id number] 2.840.1.520428.3.579.2 .1241 1954 Unknown [id number] 2.16.840.1.214781.3.579.2 .1244 1954 Unknown [id number] 2.16.840.1.036856.3.579.2 .1244 1954 Unknown [id number] 2.16.840.1.715325.3.579.2 .1244 1954 Unknown [id number] 2.840.1.030995.3.579.2 .1244 1954 Unknown [id number] 2.16.840.1.613941.3.579.2 .1244 1954 Unknown [id number] 2.16.840.1.813432.3.579.2 .1244 1954 Unknown [id number] 2.16.840.1.005077.3.579.2 .1244 1954 Unknown [id number] 2.16.840.1.845136.3.579.2 .1244 1954 Unknown [id number] 2.16.840.1.103448.3.579.2 .1244 1954 Unknown [id number] 2.16.840.1.881148.3.579.2 .1244 1954 Unknown [id number] 2.16.840.1.898849.3.579.2 .1244 1954 Unknown [id number] 2.16.840.1.421695.3.579.2 .1244 1954 Unknown [id number] 2.16.840.1.287001.3.579.2 .1244 1954 Unknown [id number] 2..840.1.406580.3.579.2 .1244 1954 Unknown [id number] 2.840.1.498968.3.579.2 .1244 1954 Unknown [id number] 2.840.1.373332.3.579.2 .1244 1954 Unknown [id number] 2..840.1.565796.3.579.2 .1244 1954 Unknown [id number] 2..840.1.570434.3.579.2 .1244 1954 Unknown [id number] 2.840.1.989832.3.579.2 .1244 1954 Unknown [id number] 2.16.840.1.119347.3.579.2 .1244 1954 Unknown [id number] 2.16.840.1.488640.3.579.2 .1244 1954 Unknown [id number] 2.16.840.1.165262.3.579.2 .1244 1954 Unknown [id number] 2.16.840.1.732384.3.579.2 .1244 1954 Unknown [id number] 2.16.840.1.560527.3.579.2 .1244 1954 Unknown [id number] 2.16.840.1.846492.3.579.2 .1244 1954 Unknown [id number] 2.16.840.1.509199.3.579.2 .1244 1954 Unknown [id number] 2.16.840.1.649276.3.579.2 .1244 1954 Unknown [id number] 2.16.840.1.705368.3.579.2 .1244 1954 Unknown [id number] 2.840.1.941945.3.579.2 .1244 1954 Unknown [id number] 2.840.1.659913.3.579.2 .1244 1954 Unknown [id number] 2.840.1.691544.3.579.2 .1244 1954 Unknown [id number] 2.840.1.555422.3.579.2 .1244 1954 Unknown [id number] 2.840.1.050098.3.579.2 .1244 1954 Unknown [id number] 2.840.1.489022.3.579.2 .1244 1954 Unknown [id number] 2.840.1.234297.3.579.2 .1244 1954 Unknown [id number] 2.840.1.962608.3.579.2 .1244 1954 Unknown [id number] 2.16840.1.864765.3.579.2 .1244 1954 Unknown [id number] 2.16.840.1.349871.3.579.2 .1244 1954 Unknown [id number] 2.16840.1.852710.3.579.2 .1244 1954 Unknown [id number] 2.840.1.168532.3.579.2 .1244 1954 Unknown [id number] 2.840.1.897825.3.579.2 .1244 1954 Unknown [id number] 2.840.1.351617.3.579.2 .1244 1954 Unknown [id number] 2.840.1.873253.3.579.2 .1244 1954 Unknown [id number] .0.1.774135.3.579.2 .1244 1954 Unknown [id number] .0.1.425975.3.579.2 .1244 1954 Unknown [id number] 12.03.830.1.152516.3.579.2 .1244 1954 Unknown [id number] .0.1.057528.3.579.2 .1244 1954 Unknown [id number] 12.03.830.1.873946.3.579.2 .1244 1954 Unknown [id number] 12.03.830.1.193241.3.579.2 .1244 1954 Unknown [id number] 12.03.830.1.364174.3.579.2 .1244 1954 Unknown [id number] 840.1.186998.3.579.2 .1244 1954 Unknown [id number] .840.1.497802.3.579.2 .124 Unknown [id number] 2.840.1.626969.3.579.2 .462 Unknown [id number] 2.840.1.086407.3.579.2 .462 Unknown [id number] 2.16.840.1.628265.3.579.2 .462 Unknown [id number] 2.16.840.1.975922.3.579.2 .462 Unknown [id number] 2.16.840.1.907309.3.579.2 .462 Unknown [id number] 2.16.840.1.858798.3.579.2 .462 Unknown [id number] 2.16.840.1.829016.3.579.2 .462 Unknown [id number] 2.16.840.1.267072.3.579.2 .462 Unknown [id number] 2.16.840.1.719832.3.579.2 .462 Unknown [id number] 2.16.840.1.762871.3.579.2 .462 Unknown [id number] 2.16.840.1.451539.3.579.2 .462 Unknown [id number] 2.16.840.1.859720.3.579.2 .462 Unknown [id number] 2.16.840.1.661104.3.579.2 .462 Unknown [id number] 2.16.840.1.314106.3.579.2 .462 Unknown [id number] 2.16.840.1.342883.3.579.2 .462 Unknown [id number] 2.16.840.1.058531.3.579.2 .462 Unknown [id number] 2.16.840.1.218342.3.579.2 .462 Unknown [id number] 2.16.840.1.901297.3.579.2 .462 Unknown [id number] 2.16.840.1.594381.3.579.2 .462 Social History Date Type Detail Facility Start: 06-07-2020 End: 04-18-2025 Ex-smoker (finding) [facility] Start: 1955 Sex Assigned At Female [facility] Start: 11-24-2021 End: 01-04-2024 Tobacco smoking status NHIS Unknown if ever smoked [facility] Start: 04-02-2021 None [facility] Start: 04-02-2021 Non-smoker [facility] Start: 10-18-1972 End: 02-18-2005 History of tobacco use Current smoker [facility] Start: 10-18-1972 End: 02-18-2005 History of tobacco use Cigarette Smoker [facility] Start: 11-12-2022 End: 04-30-2025 Tobacco use and exposure Smokeless tobacco non-user [facility] Start: 11-12-2022 Alcohol intake Current non-dr label pinker of alcohol (finding) [facility] Start: 1955 Sex Assigned At Not on file [facility] Start: 12-02-2023 Tobacco smoking status NHIS Never smoked tobacco [facility] Work Phone: Start: 12-02-2023 End: 02-14-2025 Alcohol intake Lifetime non-drinker (finding) [facility] Work Phone: Start: 12-02-2023 End: 08-04-2024 History of Social function [facility] Start: 12-02-2023 End: 08-04-2024 Tobacco use panel [facility] Start: 11-22-2023 End: 03-28-2025 Exposure to SARS-CoV-2 (event) Not sure [facility] Start: 09-11-2022 National Score (1-100), lower number is lower risk Not on file [facility] How often do you feel lonely or isolated from those around you [CMS Assessment] Never [facility] Work Phone: In the past 12 months, was there a time when you were not able to pay the mortgage or rent on time? No [facility] Work Phone: Start: 01-02-2025 End: 02-09-2025 Sex Female (finding) [facility] Start: 05-03-2025 End: 06-27-2025 Alcoholic beverage intake Ex-drinker (finding) [facility] Work Phone: Start: 04-30-2025 Alcohol Comment Occasionally o n holidays [facility] Work Phone: NEGATED: Highlighted rowStart: NINF History of tobacco use Passive smoker [facility] Work Phone: Medical Equipment Procedure Code Equipment Code Equipment Origin al Text Equipment Identifier Dates [id number] Start: 01-17-2024 [id number] Start: 08-01-2024 Graft, Vascular, Impregnated, Woven, Gelweave, 8 Mm X 15 Cm - [id number] Start: 08-01-2024 [id number] Start: 08-01-2024 [id number] Start: 08-01-2024 Goals Date Patient Goal Desired Activity /State Functional Status Date Assessment Result Facility 07-31-2025 [facility] Work Phone: 07-31-2025 Functional status 147/68 [facility] Work Phone: 07-31-2025 Vital signs 60 07/31/2025 11 :27 AM Josuha Toscano [facility] Work Phone: 05-16-2025 Patient Health Questionnaire 2 item (PHQ-2) [Reported] [facility] Work Phone: 02-14-2025 Patient Health Questionnaire 2 item (PHQ-2) [Reported] [facility] Work Phone: 12-15-2024 Functional status Ambulates [facility] Work Phone: 07-05-2023 Functional Status Identification band [facility] 07-05-2023 Functional Status Room check performed [facility] 07-05-2023 Functional Status [facility] Mental Status Date Assessment Result Facility 12-15-2024 Cognitive function Voice/Name [facility] Work Phone: 07-05-2023 [facility] Mental Status [facility] Clinical Notes 07-09-2014 to 08-07-2025 Note Date & Type Note Facility 08-07-2025 Progress note [facility] 08-07-2025 Progress note Note Date/Time August 07, 2025 4:12pm [facility] [address] [place] [address] OFFICE VISIT Date of Service: 08/07/25 MR#: [id number] Acct: [id number] Name: ZORA NIXON Rep #: [id number] : 1955 Provider: GEORGIANA Rubio Age/Sex: 70/F [place] [facility] [place] Status: Signed Intake Vital Signs 07/13/25 10:04 [...] Reasons: Fall Chief Complaint: fu from fall Sinter Feeder Required: No Accompanied by: Self Is patient [...] psoas hematoma Hyperbilirubinemia Severe anemia Non-ST elevation [place] (NSTEMI) Rhabdomyolysis Thrombocytopenia CAD (coronary artery disease) [...] HPI Chief Complaint: fu from fall Details: ZORA NIXON, is a 70 F who presents [...] using Neosporin as well as gauze and Jennifer wrap dressings. She states she has a friend that is a DATAPOWER DEVELOPER that comes and checks on them. She [...] Yes 08/09/25 1120 <Electronically signed by Claudia STONER> Date _ Claudia MARTINEZC Cosigner Signature: Date (if applicable) CC: ~ [facility] [employer] Work Phone: 1(945) 473-515310-14-2025 History of Present illness Narrative* Neli Cox, NEFTALI-FLOOR LAYER HELPER - 07/31/2025 11:30 AM EDT Images from the original note were not included. [facility] Location: [facility] BREAST CANCER DIAGNOSIS Malignant neoplasm of lower-outer quadrant of right breast of female, estrogen receptor negative, Clinical: Stage IIB (cT2(m), cN1(f), cM0, G3, ER-, DC-, HER2+) Malignant neoplasm of lower-outer quadrant of right breast of female, estrogen receptor negative, Pathologic: Stage IV (cM1, ER-, DC-, HER2+) ONCOLOGIC HISTORY S/p 3 cycles of dose reduced gemcitabine/carboplatin days 1 and 8 q21 days from 03/30/24 to 05/31/24 Trastuzumab single agent 10/09/24 and 10/30/24 : Incidentally found breast cancer after chest CT for heart surgery work up (she has aortic valve disease) found breast mass and axillary adenopathy in the right breast. Biopsy of both revealed HER2+, ER/DC- breast cancer. Other outside staging workup raised [...] neutropenia and thrombocytopenia HISTORY OF PRESENT ILLNESS Zora Nixon is a 70 y.o. woman with [...] Patient Position: Sitting, BP Cuff Size: Small ) Pulse 60 Temp 36 C (96.8 F) [...] Diagnostic Results TRANSTHORACIC ECHOCARDIOGRAM REPORT Patient Name: ZORA Lewis Physician: [id number] Crow Feldman MD Study Date: 04/26/2025 Ordering Provider: [id number] MARCELO DAVEY MRN/PID: [id number] Fellow: Nurse: Date of /Age: 401/26/1955 Alum Plant Supervisor: Frandy simon RDCS, ALEJANDRA Gender assigned at F Additional Staff: : Height: 149.86 cm Admit Date: Weight: 52.16 kg Admission Status: Observation - STAT BSA / BMI: 1.46 m2 / 23.23 kg/m2 Blood Pressure: 98/44 mmHg Department Location: [facility] Study Type: TRANSTHORACIC ECHO (TTE) LIMITED Diagnosis/ICD: Nonrheumatic aortic (valve) stenosis-I35.0 Indication: S/p cardiotoxic chemotherapy CPT Code: Echo Limited-77433; Doppler Limited-72409; Color Doppler-40942 Patient History: Pertinent History: #21 Avalus Ultra [...] 3. Slightly worsened subpleural nodularity within the gikgk-unaqmml-ynsl-left lower lobes, could represent interstitial changes. No suspicious lung nodules. Recommend continued attention on follow-up. 4. Cholelithiasis, with stable mild intra and extrahepatic biliary dilatation. Recommend correlation with LFTs. I personally reviewed the images/study and I agree with the findings as stated. This study was interpreted at [facility], [place], [place]. MACRO: None Signed by: Esteban Andrade 06/23/2025 2:33 PM Dictation workstation: [id number] LABORATORY/PATHOLOGY DATA Infusion on 07/17/2025 Component Date [...] 35.8 0.0 - 38.6 U/mL Final IMPRESSION/PLAN [id number] HER2+/ER-/DC- right sided breast cancer. Jun 2025 CT [...] out with any questions. Neli Cox MSN, CREDIT CONTROL MANAGER, ADULT FAMILY HOME PROGRAM MANAGER-C [facility] Division of Medical Oncology- Breast Collaborating Physician Dr. Marcelo Davey [facility] [place] [address] Available via Secure Chat Confidential Peer Review Document- General Medical Practitioner Privilege Privileged Pursuant to [place] Revised Code Section 2305.24, .25, .251 & .[address] [facility] Work Phone: 1(557) 884-821510-14-2025 Instructions* Patient Instructions* WILEY Carlson - 07/31/2025 [...] 08/09/25 with repeat ECHO 08/03/25 Please call [phone] with any questions or concerns prior to your next office visit. documented in this [facility] Work Phone: 1(654) 912-700709-26-2025 Evaluation note* Diagnosis Onset Date Resolution Status Admit Date Anorexia acute June 9:50am Flu vaccine need acute Junemb2024 9:50am Anxiety and depression chronic Se ptember 2024 9:50am Breast cancer chronic June 192024 9:50am Hyperlipemia chronic July 132024 9:50am Hypertension chronic July 132024 9:50am Insomnia chronic June 9:50am Skin tear of forearm without complication acute August 07 2:45pm [facility] Work Phone: 1(707) 636-459009-26-2025 Progress [facility] [address] [place] [address] OFFICE VISIT Date of Service: 07/13/25 MR#: [id number] Acct: [id number] Name: ZORA NIXON Rep #: [id number] : 1955 Provider: Dr. Shamika Fallon MD Age/Sex: 70/F [place] [facility] [place] Status: Signed Intake Vital Signs 04/18/25 16:20 [...] 1 YR Chief Complaint: Follow-up chronic conditions Sinter Feeder Required: No Accompanied by: Self Is patient [...] Nurse's Note: yearly visit flu shot request [facility] Medical History (Updated 07/13/25 @ 11:[address] Daniela Fallon MD) Breast cancer Anorexia Neutropenic fever Gastroenteritis Breast cancer metastasized to axillary lymph node Nontraumatic psoas hematoma Hyperbilirubinemia Severe anemia Non-ST elevation [place] (NSTEMI) Rhabdomyolysis Thrombocytopenia CAD (coronary artery disease) [...] HPI Chief Complaint: Follow-up chronic conditions Details: ZORA NIXON, is a 70-year-old female presenting for [...] She had an appointment scheduled with a risk control product liability director at a [facility] but had to cancel due to illness. [...] as prescribed. She continues follow-up with her technician support association andoncology-technician support association as well. No chest pain, palpitations or [...] Performing Provider: Daniela Fallon MD Performing Location: [facility] Administered by: Diane Cardoso on 07/13/25 10:23 Dose Route Admin Location Dispensed Lot Number Expiration Date Pack age NDC NDC Entry Level Electrician 45 mcg IM Right Arm (SQ) 0.5 mL [id number] 02/12/26 30343-754-00 [id number] World Reviewer. VIS Given Date VIS Provided VIS Publication [...] vaccine given. This note was generated with [employer] dictation software. It may contain incorrectwords, spelling, [...] yvonne MURILLO> Date _ Daniela Fallon MD [facility] Signature: Date (if applicable) CC: ~ [facility]09-10-2025 History of Present illness Narrative* Marcelo Davey MD - 06/27/2025 9:40 AM EDT Images from the original note were not included. Breast Medical Oncology Clinic Location: [facility] BREAST CANCER DIAGNOSIS Malignant neoplasm of lower-outer quadrant of right breast of female, estrogen receptor negative, Clinical: Stage IIB (cT2(m), cN1(f), cM0, G3, ER-, DC-, HER2+) Malignant neoplasm of lower-outer quadrant of right breast of female, estrogen receptor negative, Pathologic: Stage IV (cM1, ER-, DC-, HER2+) ONCOLOGIC HISTORY S/p 3 cycles of dose reduced gemcitabine/carboplatin days 1 and 8 q21 days from 03/30/24 to 05/31/24 Trastuzumab single agent 10/09/24 and 10/30/24 CURRENT THERAPY Gemcitabine/trastuzumab/pertuzumab since 11/30/24 HISTORY OF PRESENT ILLNESS Zora Nixon is a 70 y.o. woman with incidentally found breast cancer after chest CT for heart surgery work up (she has aortic valve disease) found breast mass and axillary adenopathy in the right breast. Biopsy of both revealed HER2+, ER/DC- breast cancer. Other outside staging workup raised [...] Diagnostic Results TRANSTHORACIC ECHOCARDIOGRAM REPORT Patient Name: ZORA Duane NIXON Reading Physician: [id number] Crow Feldman MD Study Date: 04/26/2025 Ordering Provider: [id number] MARCELO DAVEY MRN/PID: [id number] Fellow: Nurse: Date of /Age: 401/26/1955 Alum Plant Supervisor: Frandy simon RDCS, RCS Gender assigned at F Additional Staff: : Height: 149.86 cm Admit Date: Weight: 52.16 kg Admission Status: Observation - STAT BSA / BMI: 1.46 m2 / 23.23 kg/m2 Blood Pressure: 98/44 mmHg Department Location: [facility] Study Type: TRANSTHORACIC ECHO (TTE) LIMITED Diagnosis/ICD: Nonrheumatic aortic (valve) stenosis-I35.0 Indication: S/p cardiotoxic chemotherapy CPT Code: Echo Limited-60175; Doppler Limited-55445; Color Doppler-87554 Patient History: Pertinent History: #21 Avalus Ultra [...] 3. Slightly worsened subpleural nodularity within the xvxzq-icurfyo-joki-left lower lobes, could represent interstitial changes. No suspicious lung nodules. Recommend continued attention on follow-up. 4. Cholelithiasis, with stable mild intra and extrahepatic biliary dilatation. Recommend correlation with LFTs. I personally reviewed the images/study and I agree with the findings as stated. This study was interpreted at [facility], [place], [place]. MACRO: None Signed by: Esteban Andrade 06/23/2025 2:33 PM Dictation workstation: [id number] LABORATORY/PATHOLOGY DATA Infusion on 06/26/2025 Component Date [...] (H) 0.0 - 38.6 U/mL Final IMPRESSION/PLAN [id number] HER2+/ER-/DC- right sided breast cancer. CT scans show [...] of Breast Cancer Medical Oncology Research Program [facility] rn call center [facility] [address], [address] [place] [address] [email or web address] documented in this encounterUnCosho[facility] Work Phone: 1(678) 606-897909-10-2025 Instructions* Patient Instructions* Pearl Mason RN - 06/27/2025 9:40 AM EDT Please call us at [phone] then follow the prompts. You may also contact your nurse or doctor with non-urgent issues by sending a MyChart message. Reminders Medicine refills: call or send a [employer] message to request medicine refills at least 5 to 7 days before you run out. Labs: You will need labs drawn with a nurse, through your mediport. See My Chart for appointment details. 6 wk follow-up with Neli Durbin chemo/herceptin/perjeta Repeat CT scans in [address] Davey documented in this encounterUnCoshocton [facility] Work Phone: 1(177) 944-498907-30-2025 History of Present illness Narrative* Neli Cox APRN-FLOOR LAYER HELPER - 05/16/2025 9:00 AM EDT Images from the original note were not included. Breast Medical Oncology Clinic Location: [facility] BREAST CANCER DIAGNOSIS Malignant neoplasm of lower-outer quadrant of right breast of female, estrogen receptor negative, Clinical: Stage IIB (cT2(m), cN1(f), cM0, G3, ER-, DC-, HER2+) Malignant neoplasm of lower-outer quadrant of right breast of female, estrogen receptor negative, Pathologic: Stage IV (cM1, ER-, DC-, HER2+) ONCOLOGIC HISTORY Dose reduced gemcitabine/carboplatin days 1 and 8 q21 days from 03/30/24 to 05/31/24 Trastuzumab single agent 10/09/24 and 10/30/24 : Incidentally found breast cancer after chest CT for heart surgery work up (she has aortic valve disease) found breast mass and axillary adenopathy in the right breast. Biopsy of both revealed HER2+, ER/DC- breast cancer. Other outside staging workup raised [...] neutropenia and thrombocytopenia HISTORY OF PRESENT ILLNESS Zora Nixon is a 70 y.o. woman with [...] Renny Reveles 03/22/2025 10:56 AM Dictation workstation: [id number] TRANSTHORACIC ECHOCARDIOGRAM REPORT Patient Name: ZORA NIXON Reading Physician: [id number] Crow Feldman MD Study Date: 04/26/2025 Ordering Provider: [id number] MARCELO DAVEY MRN/PID: [id number] Fellow: Nurse: Date of /Age: 401/26/1955 Alum Plant Supervisor: Frandy simon RDCS, RCS Gender assigned at F Additional Staff: : Height: 149.86 cm Admit Date: Weight: 52.16 kg Admission Status: Observation - STAT BSA / BMI: 1.46 m2 / 23.23 kg/m2 Blood Pressure: 98/44 mmHg Department Location: [facility] Study Type: TRANSTHORACIC ECHO (TTE) LIMITED Diagnosis/ICD: Nonrheumatic aortic (valve) stenosis-I35.0 Indication: S/p cardiotoxic chemotherapy CPT Code: Echo Limited-73478; Doppler Limited-42194; Color Doppler-61180 Patient History: Pertinent History: #21 Avalus Ultra [...] LABCA2 28.3 02/20/2025 LABCA2 37.3 01/01/2025 IMPRESSION/PLAN [id number] HER2+/ER-/DC- right sided breast cancer. Post aortic valve repair surgery she is a candidate for her2 therapy. Previously discussed with Dr Vincent in [facility] who has recommended that [...] out with any questions. Neli Cox MSN, CREDIT CONTROL MANAGER, ADULT FAMILY HOME PROGRAM MANAGER-C [facility] Division of Medical Oncology- Breast Collaborating Physician Dr. Marcelo Davey Team [facility] [place] [address] Available via Secure Chat Confidential Peer Review Document- General Medical Practitioner Privilege Privileged Pursuant to [place] Revised Code Section 2305.24, .25, .251 & .[address] [facility] Work Phone: 1(350) 584-806207-30-2025 Instructions* Patient Instructions* WILEY Carlson - 05/16/2025 [...] 08/09/25 with repeat ECHO 08/03/25 Please call [phone] with any questions or concerns prior to your next office visit. documented in this [facility]Tr[facility] Work Phone: 1(271) 119-795207-17-2025 History of Present illness Narrative* WILEY Pimentel - 05/03/2025 9:30 AM EDT CARDIO-ONCOLOGY PROGRESS NOTE Name: Zora Nixon : 1955 Date of Service: 05/03/25 Medical Oncologist: Marcelo Davey MD CHIEF COMPLAINT: Zora Nixon is a 70 y.o. female who presents to clinic for continued monitoring while on cardiotoxic chemotherapy. New patient visit for me today HPI: Oncology History: -03/30-05/31/24: 3 cycles carbo/gem for ER/DC-, HER2+ B breast cancer metastatic to bone -11/30/24-present: [facility] Cardiology History: -2004: Single-vessel CABG with bioprosthetic aortic valve replacement, aortic aneurysm repair -2011: AICD placement -08/03/24: CABG x 2, redo [...] per Dr. 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 Here is our plan: --Repeat echocardiogram and return visit in 3 months documented in this encounterTrumbull [facility] Work Phone: 1([phone]) 654-307407-02-2025 Discharge summary [facility] Medical Records Department [address] [place] [address] Emergency Department Summary 04/18/25 MR#: [id number] Acct: [id number] Name: ZORA NIXON Rep #:[id number] : 1955 70 From: Benito Jefferson MD [...] Prior similar symptoms: Yes Recent Illness/Hospitalization: Yes [facility] Medical History Neutropenic fever Gastroenteritis Breast cancer metastasized to axillary lymph node Nontraumatic psoas hematoma Hyperbilirubinemia Severe anemia Non-ST elevation [place] (NSTEMI) Rhabdomyolysis Thrombocytopenia CAD (coronary artery disease) [...] 76.0 H Lymph % (Auto) 17.7 L Davie % (Auto) 4.8 Eos % (Auto) 1.0 [...] and ancillary findings as above. Reading Location: [place] [address] report was read. Treatment and [...] Care Provider] - 1 Week Print Language: Kuwaiti Disposition Disposition: Home, Self Care What to do if you have Problems For any increased pain, shortness of breath, bleeding, nausea or vomiting, chestpain, or any unexpected problems, contact your Primary Care Provider. Call [facility] ([phone]) or report tothe closest Emergency Room. Call 911 if necessary. 04/18/252144 Cosigner Signature (if applicable): CC: Dr. Daniela Fallon MD ~ Signed [facility]07-02-2025 Radiology Diagnostic study note [facility] Services [address] [place], [place] [address] Brain/Head without Contrast MR#: [id number] Acct: [id number] Name: ZORA NIXON Duane Rep #: [id number] : 1955 F 70 From: Prince Mejia MD PCP: Dr. Daniela Fallon MD Status: R EG ER Study:Brain/Head without Contrast Date of Exa m: 04/18/25 Exam# [id number] Ordering Dr: Adelaide Jefferson MD PROCEDURE: BRAIN/HEAD [...] and ancillary findings as above. Reading Location: [id number] CC: Dr. Daniela Fallon MD; Dr. Benito Jefferson MD ~ Pick Up: Signed [facility]07-02-2025 Discharge summary Author Benito Jefferson [facility] Note Date/Time April 18, 2025 9:45p m [facility] Medical Records Department [address] [place] [address] Emergency Department Summary 04/18/25 MR#: [id number] Acct: [id number] Name: ZORA NIXON Rep #:[id number] : 1955 70 From: Benito Jefferson MD [...] Prior similar symptoms: Yes Recent Illness/Hospitalization: Yes [facility] Medical History Neutropenic fever Gastroenteritis Breast cancer metastasized to axillary lymph node Nontraumatic psoas hematoma Hyperbilirubinemia Severe anemia Non-ST elevation [place] (NSTEMI) Rhabdomyolysis Thrombocytopenia CAD (coronary artery disease) [...] 76.0 H Lymph % (Auto) 17.7 L Davie % (Auto) 4.8 Eos % (Auto) 1.0 [...] and ancillary findings as above. Reading Location: [place] [address] report was read. Treatment and [...] Care Provider] - 1 Week Print Language: Kuwaiti Disposition Disposition: Home, Self Care What to do if you have Problems For any increased pain, shortness of breath, bleeding, nausea or vomiting, chestpain, or any unexpected problems, contact your Primary Care Provider. Call [facility] ([phone]) or report to the closest Emergency Room. Call 911 if necessary. 04/18/252144 <Electronically signed by Benito Jefferson MD> Cosigner Signature (if applicable): CC: Dr. Daniela Fallon MD ~ Signed [facility] Work Phone: 1(897) 390-384006-19-2025 Evaluation note* Diagnosis Onset Date Resolution Status Admit Date Dizziness acute April 05 2:20pm Fatigue acute April 05 2:20pm Anorexia acute June 9:50am Flu vaccine need acute Septembe r 2024 9:50am Anxiety and depression chronic Se ptember 2024 9:50am Breast cancer chronic June 192024 9:50am Hyperlipemia chronic July 132024 9:50am Hypertension chronic July 132024 9:50am Insomnia chronic June 9:50am [facility] [employer] Work Phone: 1(192) 410-407506-11-2025 History of Present illness Narrative* Marcelo Davey MD - 03/28/2025 10:20 AM EDT Images from the original note were not included. Breast Medical Oncology Clinic Location: [facility] BREAST CANCER DIAGNOSIS Malignant neoplasm of lower-outer quadrant of right breast of female, estrogen receptor negative, Clinical: Stage IIB (cT2(m), cN1(f), cM0, G3, ER-, DC-, HER2+) Malignant neoplasm of lower-outer quadrant of right breast of female, estrogen receptor negative, Pathologic: Stage IV (cM1, ER-, DC-, HER2+) ONCOLOGIC HISTORY S/p 3 cycles of dose reduced gemcitabine/carboplatin days 1 and 8 q21 days from 03/30/24 to 05/31/24 Trastuzumab single agent 10/09/24 and 10/30/24 CURRENT THERAPY emcitabine/trastuzumab/pertuzumab since 11/30/24 HISTORY OF PRESENT ILLNESS Zora Nixon is a 70 y.o. woman with incidentally found breast cancer after chest CT for heart surgery work up (she has aortic valve disease) found breast mass and axillary adenopathy in the right breast. Biopsy of both revealed HER2+, ER/DC- breast cancer. Other outside staging workup raised [...] Renny Reveles 03/22/2025 10:56 AM Dictation workstation: [id number] [facility], [address] [place] [address], [address] [address] and TRANSTHORACIC ECHOCARDIOGRAM REPORT Patient Name: ZORA Zepeda HUSSAIN Lewis Physician: [id number] Vikram Schofield MD Study Date: 09/19/2024 Ordering Provider: [id number] RUEL LOZANO MRN/PID: [id number] Fellow: Nurse: Yany De Jesus RN Date of /Age: 401/26/1955 Alum Plant Supervisor: Estefania De La Rosa RDCS years Gender assigned at Additional Staff: : Height: 152.40 cm Admit Date: Weight: 61.69 kg Admission Status: Outpatient BSA / BMI: 1.58 m2 / 26.56 kg/m2 Blood Pressure: 134/67 mmHg Department Location: [facility] Study Type: TRANSTHORACIC ECHO (TTE) COMPLETE Diagnosis/ICD: Presence of prosthetic heart valve-Z95.2 Indication: AVR CPT Code: Echo Complete w Full Doppler-39647 Patient History: Pertinent History: A-Fib, Hyperlipidemia and HTN. CABG X 2,,AVR #21mm Avalus ultra (08/01/24),Dilated ascending aorta,Andrae arch graft #28mm,Breast CA,Chemotherapy. Study Detail: The [...] LA Area A2C: 14.0 cm2 LA [place] A4C: 5.7 cm LA [place] A2C: 4.7 cm LA Volume Index: 27.0 ml/m2 LA Vol A4C: 41.2 ml LA Vol A2C: 34.7 ml LA Vol Index BSA: 24.0 ml/m2 RA VOLUME BY A/L METHOD: Normal Ranges: RA Vol A4C: 21.8 ml (8.3-19.5ml) RA Vol Index A4C: 13.8 ml/m2 RA Area A4C: 10.0 cm2 RA [place] A4C: 3.9 cm M-MODE MEASUREMENTS: Normal Ranges: [...] U/mL Final Outside pathology report reviewed. IMPRESSION/PLAN [id number] HER2+/ER-/DC- right sided breast cancer. Post aortic valve [...] of Breast Cancer Medical Oncology Research Program [facility] rn call center [address], [address] [place] [address] [email or web address] documented in this encounterUnCoshocton Regional Medical Center Work Phone: 1(992) 420-619606-11-2025 Instructions* Patient Instructions* Marcelo Davey MD - 03/28/2025 10:20 AM EDT Follow-up in about 6 wks with neli Referral for supportive oncology for appetite improvment Continue present treatments documented in this encounterUnCoshocton [facility] Work Phone: 1(194) 791-891204-30-2025 History of Present illness Narrative* WILEY Carlson - 02/14/2025 10:30 AM EDT Images from the original note were not included. Breast Medical Oncology Clinic Location: [facility] BREAST CANCER DIAGNOSIS Malignant neoplasm of lower-outer quadrant of right breast of female, estrogen receptor negative, Clinical: Stage IIB (cT2(m), cN1(f), cM0, G3, ER-, DC-, HER2+) Malignant neoplasm of lower-outer quadrant of right breast of female, estrogen receptor negative, Pathologic: Stage IV (cM1, ER-, DC-, HER2+) ONCOLOGIC HISTORY S/p 3 cycles of dose reduced gemcitabine/carboplatin days 1 and 8 q21 days from 03/30/24 to 05/31/24 Trastuzumab single agent 10/09/24 and 10/30/24 Incidentally found breast cancer after chest CT for heart surgery work up (she has aortic valve disease) found breast mass and axillary adenopathy in the right breast. Biopsy of both revealed HER2+, ER/DC- breast cancer. Other outside staging workup raised [...] gemcitabine/trastuzumab/pertuzumab since 11/30/24 HISTORY OF PRESENT ILLNESS Zora Nixon is a 70 y.o. woman with [...] pacemaker, Rhabdomyolysis (06/05/2024), Shortness of breath, Thrombocytopenia ([facility]) (06/05/2024), TIA (transient ischemic attack), Urgency of [...] lesions, no rashes, no jaundice Diagnostic Results [facility], [address] [place] [address], [address], [place] [address] and TRANSTHORACIC ECHOCARDIOGRAM REPORT Patient Name: ZORA Zepeda HUSSAIN Lewis Physician: [id number] Vikram Schofield MD Study Date: 09/19/2024 Ordering Provider: [id number] RUEL LOZANO MRN/PID: [id number] Fellow: Nurse: Yany De Jesus RN Date of /Age: 401/26/1955 Alum Plant Supervisor: Estefania De La Rosa RDCS years Gender assigned at Additional Staff: : Height: 152.40 cm Admit Date: Weight: 61.69 kg Admission Status: Outpatient BSA / BMI: 1.58 m2 / 26.56 kg/m2 Blood Pressure: 134/67 mmHg Department Location: [facility] Study Type: TRANSTHORACIC ECHO (TTE) COMPLETE Diagnosis/ICD: Presence of prosthetic heart valve-Z95.2 Indication: AVR CPT Code: Echo Complete w Full Doppler-50823 Patient History: Pertinent History: A-Fib, Hyperlipidemia and HTN. CABG X 2,,AVR #21mm Avalus ultra (08/01/24),Dilated ascending aorta,Andrae arch graft #28mm,Breast CA,Chemotherapy. Study Detail: The [...] LA Area A2C: 14.0 cm2 LA [place] A4C: 5.7 cm LA [place] A2C: 4.7 cm LA Volume Index: 27.0 ml/m2 LA Vol A4C: 41.2 ml LA Vol A2C: 34.7 ml LA Vol Index BSA: 24.0 ml/m2 RA VOLUME BY A/L METHOD: Normal Ranges: RA Vol A4C: 21.8 ml (8.3-19.5ml) RA Vol Index A4C: 13.8 ml/m2 RA Area A4C: 10.0 cm2 RA [place] A4C: 3.9 cm M-MODE MEASUREMENTS: Normal Ranges: [...] 1:50 pm; 09/20/2024 2:16 pm ACCESSION NUMBER(S): [id number]; [id number] ORDERING CLINICIAN: MARCELO DAVEY INDICATION: Multifocal right [...] breast and right axilla by a registered life science technical officer with elastography. The biopsy-proven malignancy at the [...] any future breast imaging appointments, please call [phone]). LABORATORY/PATHOLOGY DATA Infusion on 01/29/2025 Component Date [...] U/L Final Outside pathology report reviewed. IMPRESSION/PLAN [id number] HER2+/ER-/DC- right sided breast cancer. Post aortic valve [...] out with any questions. Neli Cox MSN, CREDIT CONTROL MANAGER, ADULT FAMILY HOME PROGRAM MANAGER-C [facility] Division of Medical Oncology- Breast Collaborating Physician Dr. Marcelo Davey Team [facility] [place] [address] Available via Secure Chat Confidential Peer Review Document- General Medical Practitioner Privilege Privileged Pursuant to [place] Revised Code Section 2305.24, .25, .251 & .252 documented in this encounterTrumbull [facility] Center Work Phone: 1(945) 383-585904-30-2025 Instructions* Patient Instructions* WILEY Carlson - 02/14/2025 [...] up Dr Davey on 03/28/25. Please call [phone] with any questions or concerns prior to your next office visit. documented in this [facility] Work Phone: 1(677) 853-128003-19-2025 History of Present illness Narrative* Marcelo Davey MD - 01/03/2025 9:20 AM EDT Images from the original note were not included. Breast Medical Oncology Clinic Location: [facility] BREAST CANCER DIAGNOSIS Malignant neoplasm of lower-outer quadrant of right breast of female, estrogen receptor negative, Clinical: Stage IIB (cT2(m), cN1(f), cM0, G3, ER-, DC-, HER2+) Malignant neoplasm of lower-outer quadrant of right breast of female, estrogen receptor negative, Pathologic: Stage IV (cM1, ER-, DC-, HER2+) ONCOLOGIC HISTORY S/p 3 cycles of dose reduced gemcitabine/carboplatin days 1 and 8 q21 days from 03/30/24 to 05/31/24 Trastuzumab single agent 10/09/24 and 10/30/24 CURRENT THERAPY emcitabine/trastuzumab/pertuzumab since 11/30/24 HISTORY OF PRESENT ILLNESS Zora Nixon is a 69 y.o. woman with incidentally found breast cancer after chest CT for heart surgery work up (she has aortic valve disease) found breast mass and axillary adenopathy in the right breast. Biopsy of both revealed HER2+, ER/DC- breast cancer. Other outside staging workup raised [...] pacemaker, Rhabdomyolysis (06/05/2024), Shortness of breath, Thrombocytopenia ([facility]) (06/05/2024), TIA (transient ischemic attack), Urgency of [...] to person, place, and time. Diagnostic Results [facility], [address], [address], [place], [place] [address] and TRANSTHORACIC ECHOCARDIOGRAM REPORT Patient Name: ZORA NIXON Reading Physician: [id number] Vikram Schofield MD Study Date: 09/19/2024 Ordering Provider: [id number] RUEL Harris ISABELRIGOBERTO MRN/PID: [id number] Fellow: Nurse: Yany De Jesus RN Date of /Age: 401/26/1955 Alum Plant Supervisor: Estefania De La Rosa RDCS years Gender assigned at F Additional Staff: : Height: 152.40 cm Admit Date: Weight: 61.69 kg Admission Status: Outpatient BSA / BMI: 1.58 m2 / 26.56 kg/m2 Blood Pressure: 134/67 mmHg Department Location: [facility] Study Type: TRANSTHORACIC ECHO (TTE) COMPLETE Diagnosis/ICD: Presence of prosthetic heart valve-Z95.2 Indication: AVR CPT Code: Echo Complete w Full Doppler-72357 Patient History: Pertinent History: A-Fib, Hyperlipidemia and HTN. CABG X 2,,AVR #21mm Avalus ultra (08/01/24),Dilated ascending aorta,Andrae arch graft #28mm,Breast CA,Chemotherapy. Study Detail: The [...] LA Area A2C: 14.0 cm2 LA [place] A4C: 5.7 cm LA [place] A2C: 4.7 cm LA Volume Index: 27.0 ml/m2 LA Vol A4C: 41.2 ml LA Vol A2C: 34.7 ml LA Vol Index BSA: 24.0 ml/m2 RA VOLUME BY A/L METHOD: Normal Ranges: RA Vol A4C: 21.8 ml (8.3-19.5ml) RA Vol Index A4C: 13.8 ml/m2 RA Area A4C: 10.0 cm2 RA [place] A4C: 3.9 cm M-MODE MEASUREMENTS: Normal Ranges: [...] 1:50 pm; 09/20/2024 2:16 pm ACCESSION NUMBER(S): [id number]; [id number] ORDERING CLINICIAN: MARCELO DVAEY INDICATION: Multifocal right breast cancer with preoperative [...] breast and right axilla by a registered life science technical officer with elastography. The biopsy-proven malignancy at the [...] any future breast imaging appointments, please call [phone]). LABORATORY/PATHOLOGY DATA Lab on 01/01/2025 Component Date [...] x10*3/uL Final Outside pathology report reviewed. IMPRESSION/PLAN [id number] HER2+/ER-/DC- right sided breast cancer. Post aortic valve [...] CT scans in 9-12 wks [facility] I personally spent over half of a total 35 minutes face to face with the patient and family in counseling and discussion and/or coordination of care as described above. Marcelo Davey MD Director of Breast Cancer Medical Oncology Research Program [facility] rn call center [facility] [address] [place] [address] [address], [address] [place] [address] [email or web address] documented in this encounterUn[facility] Work Phone: 1(679) 613-384703-19-2025 Instructions* Patient Instructions* Pearl Mason RN - 01/03/2025 9:20 AM EDT Please call us at [phone] option 5 then option 2 with any questions or concerns. You may also contact your nurse or doctor with non-urgent issues by sending a MyChart message. Reminders Medicine refills: call or send a [employer] message to request medicine refills at least 5 to 7 days before you run out. Labs: You will need labs drawn with a nurse, through your mediport. See My Chart for appointment details. 1-2 days prior to treatment at [facility] doing Day 1 of treatments of the chemotherapy. We to schedule C3 for 01-09-2025 and C4 for 01-30-2025 with PORT labs 1-3 days prior documented in this encounterUnCosho[facility] Work Phone: 1(494) 564-510503-07-2025 Evaluation note* Diagnosis Onset Date Resolution Status Admit Date Pancytopenia acute December 22, 2 025 10:37am Nausea and vomiting resolved December 22, 2024 10:37am Vasculitis acute February 06 12:52pm Dizziness acute April 05 2:20pm Fatigue acute April 05 2:20pm [facility] Work Phone: 1(203) 845-106402-28-2025 [facility] Medical Records Department [address] [place] [address] Discharge Summary 12/15/24 1403 MR#: [id number] Acct: [id number] Name: ZORA NIXON Rep #: [id number] : 1955 69 From: Guillaume Spring DO PCP: Dr. Daniela Faloln MD Status:DIS IN Location: [place] [id number] Providers Date of Admission: 12/10/24 Date of [...] was seen in the emergency room at [facility] with complaints of nausea and vomiting and [...] Index (BMI) 26.4 ABG (more content not included)...[facility]02-23-[facility]25 Evaluation note* Diagnosis Onset Date Resolution Status Admit Date Breast cancer metastasized t o axillary lymph node inactive November 12:12pm Gastroenteritis inactive December 10, 2024 12:12pm Neutropenic fever inactive Febr2024 12:12pm Pancytopenia acute December 22 10:37am Nausea and vomiting resolved December 22, 2024 10:37am [facility] Work Phone: 1(476) 937-418902-23-2025 Evaluation note* Diagnosis Onset Date Resolution Status Admit Date Breast cancer metastasized t o axillary lymph node inactive November 12:12pm Gastroenteritis inactive December 10, 2024 12:12pm Neutropenic fever inactive Februar 2024 12:12pm Pancytopenia acute December 22 10:37am Nausea and vomiting resolved December 22, 2024 10:37am Vasculitis acute February 06 12:52pm [facility] Work Phone: 1(854) 248-586401-22-2025 History of Present illness Narrative* Marcelo Davey MD - 11/08/2024 9:20 AM EST Images from the original note were not included. Breast Medical Oncology Clinic Location: Virtual BREAST CANCER DIAGNOSIS Malignant neoplasm of lower-outer quadrant of right breast of female, estrogen receptor negative, Clinical: Stage IIB (cT2(m), cN1(f), cM0, G3, ER-, DC-, HER2+) Malignant neoplasm of lower-outer quadrant of right breast of female, estrogen receptor negative, Pathologic: Stage IV (cM1, ER-, DC-, HER2+) S/p 3 cycles of dose reduced gemcitabine/carboplatin days 1 and 8 q21 days CURRENT THERAPY Trastuzumab q3 wks HISTORY OF PRESENT ILLNESS Zora Nixon is a 69 y.o. woman with incidentally found breast cancer after chest CT for heart surgery work up (she has aortic valve disease) found breast mass and axillary adenopathy in the right breast. Biopsy of both revealed HER2+, ER/DC- breast cancer. Other outside staging workup raised [...] Nerves: No cranial nerve deficit. Diagnostic Results [facility], [address], [address], [place], [place] [address] and TRANSTHORACIC ECHOCARDIOGRAM REPORT Patient Name: ZORA NIXON Reading Physician: [id number] Vikram Schofield MD Study Date: 09/19/2024 Ordering Provider: [id number] RUEL LOZANO MRN/PID: [id number] Fellow: Nurse: Yany De Jesus RN Date of /Age: 401/26/1955 Alum Plant Supervisor: Estefania De La Rosa RDCS years Gender assigned at F Additional Staff: : Height: 152.40 cm Admit Date: Weight: 61.69 kg Admission Status: Outpatient BSA / BMI: 1.58 m2 / 26.56 kg/m2 Blood Pressure: 134/67 mmHg Department Location: [facility] Study Type: TRANSTHORACIC ECHO (TTE) COMPLETE Diagnosis/ICD: Presence of prosthetic heart valve-Z95.2 Indication: AVR CPT Code: Echo Complete w Full Doppler-[id number] Patient History: Pertinent History: A-Fib, Hyperlipidemia and HTN. CABG X 2,,AVR #21mm Avalus ultra (08/01/24),Dilated ascending aorta,Andrae arch graft #28mm,Breast CA,Chemotherapy. Study Detail: The [...] LA Area A2C: 14.0 cm2 LA [place] A4C: 5.7 cm LA [place] A2C: 4.7 cm LA Volume Index: 27.0 ml/m2 LA Vol A4C: 41.2 ml LA Vol A2C: 34.7 ml LA Vol Index BSA: 24.0 ml/m2 RA VOLUME BY A/L METHOD: Normal Ranges: RA Vol A4C: 21.8 ml (8.3-19.5ml) RA Vol Index A4C: 13.8 ml/m2 RA Area A4C: 10.0 cm2 RA [place] A4C: 3.9 cm M-MODE MEASUREMENTS: Normal Ranges: [...] 1:50 pm; 09/20/2024 2:16 pm ACCESSION NUMBER(S): [id number]; [id number] ORDERING CLINICIAN: MARCELO DAVEY INDICATION: Multifocal right [...] breast and right axilla by a registered life science technical officer with elastography. The biopsy-proven malignancy at the [...] any future breast imaging appointments, please call [phone] ([phone]). === 10/12/24 === NM PET CT SKULL [...] Major M.D. This study was interpreted at [place], [place]. MACRO: None. Signed by: Luis Manuel Parrish 10/26/2024 2:52 PM Dictation workstation: [id number] LABORATORY/PATHOLOGY DATA Infusion on 10/09/2024 Component Date [...] mIU/mL Final Outside pathology report reviewed. IMPRESSION/PLAN [id number] HER2+/ER-/DC- right sided breast cancer. Post aortic valve [...] of Breast Cancer Medical Oncology Research Program [facility] rn call center [facility] [address], [address] [place] [address] [email or web address] documented in this [facility] Work Phone: 1(812) 969-288112-11-2024 History of Present illness Narrative* Cayden Bae MD - 09/27/2024 11:45 AM EST Images from the original note were not included. Subjective Zora Nixon is a 69 y.o. female Cancer Diagnosis: Breast Treatment: Plan for Cumulative Dose: Radiation: Risk Factors: Aortic valve insufficiency, arrythmia, CVA, CHF, HOCM, HTN, HLD, [place], CADs/p CABG/Stent, Pacer TIA Social Hx: Former Smoker Family Hx: Father heart disease Echo 02/11/2024 EF 45-50% Briefly patient is a 69-year-old female with a medical history of dual-chamber [employer] ICD (implanted 2010), generator replacement June [...] catheterization (unclear date) noted in her outside technician support association chart with documented all grafts down except [...] CABG x 2 with vein graft-PDA, vein ghqzp-[id number]-dcywl SVG with Dr. Lozano August 03, 2024. [...] be 500 ms. Follows with EP at [facility]. Recommend checking with themabout recommendations with sotalol dosing -Will refer to cardiac rehab given recent valvular replacement. -RTC 3 months w/ echo Cayden Bae MD Advanced Heart Failure/Transplant Cardiology Cardio-Oncology [facility] documented in this [facility] Work Phone: 1(241) 846-482212-11-2024 Instructions* Patient Instructions* Katrin Rodriguez RN - 09/27/2024 11:45 AM EST Cardiac rehab referral Echo and follow up with Yany Page CNP in [address] [facility] Work Phone: 1(493) 578-178712-04-2024 History of Present illness Narrative* Marcelo Davey MD - 09/20/2024 10:20 AM EST Images from the original note were not included. Breast Medical Oncology Clinic Location: Virtual BREAST CANCER DIAGNOSIS Malignant neoplasm of lower-outer quadrant of right breast of female, estrogen receptor negative, Clinical: Stage IIB (cT2(m), cN1(f), cM0, G3, ER-, DC-, HER2+) CURRENT THERAPY S/p 3 cycles of dose reduced gemcitabine/carboplatin days 1 and 8 q21 days HISTORY OF PRESENT ILLNESS Zora Nixon is a 69 y.o. woman with incidentally found breast cancer after chest CT for heart surgery work up (she has aortic valve disease) found breast mass and axillary adenopathy in the right breast. Biopsy of both revealed HER2+, ER/DC- breast cancer. Other outside staging workup raised [...] valve insufficiency, Arrhythmia, Arthritis, Ascending aorta dilatation ([facility]), Ascending aorta dilation ([facility]), Breast cancer(Multi), Cerebral vascular accident (Multi), CHF (congestive heart failure), Congestive heart failure (12/01/2023), Coronary artery disease, Depression, Dizziness, GERD (gastroesophageal reflux disease), HOCM (hypertrophic obstructive cardiomyopathy) ([facility]) (12/01/2023), transfusion of platelets, Hyperlipidemia, Hypertension, Irregular [...] to person, place, and time. Diagnostic Results [facility], [address] [place] [address], [address], [place] [address] and TRANSTHORACIC ECHOCARDIOGRAM REPORT Patient Name: ZORA Zepeda MICKRAKESHBraxton Lewis Physician: [id number] Vikram Schofield MD Study Date: 09/19/2024 Ordering Provider: [id number] RUEL LOZANO MRN/PID: [id number] Fellow: Nurse: Yany De Jesus RN Date of /Age: 401/26/1955 Alum Plant Supervisor: Estefania De La Rosa RDCS years Gender assigned at F Additional Staff: : Height: 152.40 cm Admit Date: Weight: 61.69 kg Admission Status: Outpatient BSA / BMI: 1.58 m2 / 26.56 kg/m2 Blood Pressure: 134/67 mmHg Department Location: [facility] Study Type: TRANSTHORACIC ECHO (TTE) COMPLETE Diagnosis/ICD: Presence of prosthetic heart valve-Z95.2 Indication: AVR CPT Code: Echo Complete w Full Doppler-[id number] Patient History: Pertinent History: A-Fib, Hyperlipidemia and HTN. CABG X 2,,AVR #21mm Avalus ultra (08/01/24),Dilated ascending aorta,Andrae arch graft #28mm,Breast CA,Chemotherapy. Study Detail: The [...] LA Area A2C: 14.0 cm2 LA [place] A4C: 5.7 cm LA [place] A2C: 4.7 cm LA Volume Index: 27.0 ml/m2 LA Vol A4C: 41.2 ml LA Vol A2C: 34.7 ml LA Vol Index BSA: 24.0 ml/m2 RA VOLUME BY A/L METHOD: Normal Ranges: RA Vol A4C: 21.8 ml (8.3-19.5ml) RA Vol Index A4C: 13.8 ml/m2 RA Area A4C: 10.0 cm2 RA [place] A4C: 3.9 cm M-MODE MEASUREMENTS: Normal Ranges: [...] 1:50 pm; 09/20/2024 2:16 pm ACCESSION NUMBER(S): [id number]; [id number] ORDERING CLINICIAN: MARCELO DAVEY INDICATION: Multifocal right [...] breast and right axilla by a registered life science technical officer with elastography. The biopsy-proven malignancy at the [...] any future breast imaging appointments, please call [phone] ([phone]). LABORATORY/PATHOLOGY DATA Hospital Outpatient Visit on 09/19/2024 [...] mg/dL Final Outside pathology report reviewed. IMPRESSION/PLAN [id number] HER2+/ER-/DC- right sided breast cancer. Post aortic valve [...] of Breast Cancer Medical Oncology Research Program [facility] rn call center [address], [address] [place] [address] [email or web address] documented in this [facility] Work Phone: 1(370) 194-237612-04-2024 Instructions* Patient Instructions* Pearl Mason RN - 09/20/2024 10:20 AM EST Please call us at [phone] option 5 then option 2 with any questions or concerns. Please get mammogram, breast ultrasound, and pet ct first. Herceptin to start in the next 2 weeks. Follow up with Dr. Davey November 01 Port labs and flush to be schedule as soon as possible documented in this [facility] Work Phone: 1(999) 931-111910-23-2024 History of Present illness Narrative* Rosa Rey RN - 08/09/2024 12:14 PM EDT 08/09/24 1213 Discharge Planning Expected Discharge Disposition Home H ([facility]) [facility] was notified of patient's plan to discharge home today. They confirmed start of care in 24-48 hours. * Yeny Barrera PTA - 08/09/2024 11:58 AM EDT Physical Therapy Therapy Communication Note Patient Name: Zora Nixon Department: [place] [address] Room: [address] [place] [address] Today's Date: 08/09/2024 Discipline: Physical Therapy Missed Visit Reason: Missed Visit Reason: Patient refused (Pt declining therapy at this time. Plan for D/C to home later today, pt reports no PT concerns prior to D/C) Missed Time: Attempt 1155 Comment: Cosigned by Venu Kathleen, PT at 08/09/2024 12:07 PM EDT * Awa Dang APRN-KATELIN - 08/09/2024 10:26 AM EDT CARDIAC SURGERY DAILY PROGRESS NOTE Zora Nixon is a 69 year old female with a PMH significant for CABG and AVR in 2004, hysterectomy, breast cancer s/p chemo (mediport), 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 She presents s/p redo sternotomy, CABG x 2 (SVG-PDA and SVG-SVG previous graft), AVR bioprosthetic and ascending Aorta/Andrae- Arch w/ Dr. Lozano on 08/01. 08/01/2024 OPERATION: by Ruel Lozano REDO Replacement Aortic Valve w/21mm Avalus Ultra, REDO Cabg x 2 w/Right Saphenous Vein, Open Saphenous Vein [place], SVG - PDA, SVG to left sided [...] XR chest 2 views 08/06/2024 Impression 1. Mytzi-qstldzw-bqsd-left basilar opacities which most likely represent atelectasis. 2. Small right and probable trace left pleural effusions. No pneumothorax. 3. Medical devices as above. IMPRESSION & PLAN: POD # 8 s/p Redo sternotomy, CABG x 2 (SVG-PDA and SVG-SVG previous graft), AVR, Ascending aorta and andrae arch replacement 08/[address] Lozano - Increase activity/ ambulation; PT/OT - Encourage IS, C/DB; respiratory therapy; wean O2 as brittnay - Cardiac rehab referral - Continue cardiac [...] 0744 08/05/24 0628 08/04/24 0238 08/03/24 1500 PLT 140* 128* 93* 81* 66* [...] 0744 08/05/24 0628 08/04/24 0238 08/03/24 1500 WBC 7.4 8.0 6.1 5.6 5.8 [...] needed after 3 months, clear use with technician support association before starting OARRS reviewed on 08/07/2024 Recent scripts: 05/17/24, Medication: Oxycodone-Acetaminophen 5-325 , Qty: 20, Days supply: 7, prescribed by Amber MURILLO 05/13/24, Medication: Oxycodone-Acetaminophen 5-325 , Qty: 9, Days supply: 30, prescribed by [facility] 04/30/24, Medication: Oxycodone-Acetaminophen 5-325 , Qty: 10, Days supply: 4, prescribed by Jesus Luu VTE Prophylaxis: SCDs/TEDs, ambulation, SQ heparin Code Status: Full Code Dispo - PT/OT recs Home - Would benefit from homecare RN for cardiac surgery carepath - Anticipate discharge today 08/09 - Will continue to assess discharge needs WILEY Reynolds Cardiac Surgery [facility] Team 08/09/2024 10:26 AM * Georgette AlmeidaPT - 08/08/2024 2:54 PM EDT Physical Therapy Therapy Communication Note Patient Name: Zora Nixon Department: [place] [address] Room: [address] [place] [address] Today's Date: 08/08/2024 Discipline: Physical Therapy Missed Visit Reason: Missed Visit Reason: (1452- Pt on bed rest for 1 hour following removal of epicardial wires. Will re-attempt as appropriate.) Missed Time: Attempt Cosigned by Kailey Glasgow PT at 08/08/2024 2:55 PM EDT * Shawna Casanova, MARTHA - 08/08/2024 9:23 AM EDT Speech-Language Pathology Inpatient Modified Barium Swallow Study Patient Name: Zora Nixon : 1955 Today's Date: 08/08/24 Start Time: 0815 Stop Time: 0845 Time Calculation (min): 30 Modified Barium Swallow Study completed. Informed verbal consent obtained prior to completion of exam. Trials of thin liquids, mildly thick liquids, puree and regular solids were given. POACHER OPERATOR: Shawna Casanova, POACHER OPERATOR Contact info: [email or web address] Reason for Referral: C/f aspiration/oropharyngeal dysphagia Patient [...] medical/mental/respiratory status please make NPO and alert POACHER OPERATOR POACHER OPERATOR PLAN: Skilled POACHER OPERATOR Services: No further skilled POACHER OPERATOR intervention is warranted for dysphagia at this [...] given on all accounts. Treatment Provided Today: POACHER OPERATOR provided extensive education and training to pt/pt [...] ESOPHAGEAL PHASE: Esophageal clearance - Not tested POACHER OPERATOR Impressions with Severity Rating: Pt with functional/age [...] of pharyngeal residue viewed across tested consistencies. POACHER OPERATOR recommends initiation of Regular diet/Thin liquids. See additional PO intake guidelines outlined above. If pt demonstrates any change/decline in medical/mental/respiratory status please make NPO and alert POACHER OPERATOR. No need for continued skilled POACHER OPERATOR services at this time. Will complete order [...] enter airway, above vocal cords, no residue Weed Thick Liquids: 2. PENETRATION that CLEARS - contrast enter airway, above vocal cords, no residue Puree: 1. NO ASPIRATION & NO PENETRATION - no aspiration, contrast does not enter airway Solids: 1. 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 She presents s/p redo sternotomy, CABG x 2 (SVG-PDA and SVG-SVG previous graft), AVR bioprosthetic and ascending Aorta/Andrae- Arch w/ Dr. Lozano on 08/01. 08/01/2024 OPERATION: by Ruel Lozano REDO Replacement Aortic Valve w/21mm Avalus Ultra, REDO Cabg x 2 w/Right Saphenous Vein, Open Saphenous Vein [place], SVG - PDA, SVG to left sided [...] takes less than 2 seconds. Comments: Midsternal, BAKERY DELIVERER, well approx. w/ derma miller, NO s/s [...] XR chest 2 views 08/06/2024 Impression 1. Gmywh-bmlrgmr-nqsd-left basilar opacities which most likely represent atelectasis. 2. Small right and probable trace left pleural effusions. No pneumothorax. 3. Medical devices as above. IMPRESSION & PLAN: POD # 6 s/p Redo sternotomy, CABG x 2 (SVG-PDA and SVG-SVG previous graft), AVR, Ascending aorta and andrae arch replacement 08/[address] Lozano - [...] needed after 3 months, clear use with technician support association before starting OARRS reviewed on 08/07/2024 Recent scripts: 05/17/24, Medication: Oxycodone-Acetaminophen 5-325 , Qty: 20, Days supply: 7, prescribed by Amber MURILLO 05/13/24, Medication: Oxycodone-Acetaminophen 5-325 , Qty: 9, Days supply: 30, prescribed by [facility] 04/30/24, Medication: Oxycodone-Acetaminophen 5-325 , Qty: 10, Days supply: 4, prescribed by Jesus Luu VTE Prophylaxis: SCDs/TEDs, ambulation, SQ heparin Code Status: Full Code Dispo - PT/OT recs Home - Would benefit from homecare RN for cardiac surgery carepath - Anticipate discharge. 08/09. - Will continue to assess discharge needs WILEY Cyr Cardiac Surgery [facility] Team 08/08/2024 8:27 AM * Rosa Rey RN - 08/07/2024 1:20 PM EDT 08/07/24 1320 Discharge Planning Expected Discharge Disposition Home H ([facility]) Does the patient need discharge transport arranged? No Met with patient and introduced myself as Garment Form Assembler and member of the discharge planning team. Pt is s/p redo AVR and redo CABG x2. She plans to return home at time of discharge with 3 friends. She prefers to use [facility]. Pending swallow eval tomorrow. distance education coordinator will continue to follow for home going needs. 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 She presents s/p redo sternotomy, CABG x 2 (SVG-PDA and SVG-SVG previous graft), AVR bioprosthetic and ascending Aorta/Andrae- Arch w/ Dr. Lozano on 08/01. 08/01/2024 OPERATION: by Ruel Lozano REDO Replacement Aortic Valve w/21mm Avalus Ultra, REDO Cabg x 2 w/Right Saphenous Vein, Open Saphenous Vein [place], SVG - PDA, SVG to left sided [...] takes less than 2 seconds. Comments: Midsternal, BAKERY DELIVERER, well approx. w/ derma miller, NO s/s [...] XR chest 2 views 08/06/2024 Impression 1. Zzxfa-xqfzoos-ruhc-left basilar opacities which most likely represent atelectasis. 2. Small right and probable trace left pleural effusions. No pneumothorax. 3. Medical devices as above. IMPRESSION & PLAN: POD # 6 s/p Redo sternotomy, CABG x 2 (SVG-PDA and SVG-SVG previous graft), AVR, Ascending aorta and andrae arch replacement 08/[address] Lozano - [...] needed after 3 months, clear use with technician support association before starting OARRS reviewed on 08/07/2024 Recent scripts: 05/17/24, Medication: Oxycodone-Acetaminophen 5-325 , Qty: 20, Days supply: 7, prescribed by Amber MURILLO 05/13/24, Medication: Oxycodone-Acetaminophen 5-325 , Qty: 9, Days supply: 30, prescribed by [facility] 04/30/24, Medication: Oxycodone-Acetaminophen 5-325 , Qty: 10, Days supply: 4, prescribed by Jesus Luu VTE Prophylaxis: SCDs/TEDs, ambulation, SQ heparin Code Status: Full Code Dispo - PT/OT recs Home - Would benefit from homecare RN for cardiac surgery carepath - Anticipate discharge mid to end of week pending POACHER OPERATOR evaluation/ dobhoff plan, weaning O2, postop imaging, device check - Will continue to assess discharge needs Awa Dang APRN-FLOOR LAYER HELPER Cardiac Surgery [facility] Team 08/07/2024 12:55 PM * Daniela Campbell, WILEY - 08/06/2024 2:18 PM EDT CARDIAC SURGERY DAILY PROGRESS NOTE Zora Nixon is a 69 year old female with a PMH significant for CABG and AVR in 2004, hysterectomy, breast cancer s/p chemo (mediport), 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 She presents s/p redo sternotomy, CABG x 2 (SVG-PDA and SVG-SVG previous graft), AVR bioprosthetic and ascending Aorta/Andrae- Arch w/ Dr. Lozano on 08/01. 08/01/2024 OPERATION: by Ruel Lozano REDO Replacement Aortic Valve w/21mm Avalus Ultra, REDO Cabg x 2 w/Right Saphenous Vein, Open Saphenous Vein [place], SVG - PDA, SVG to left sided [...] SVG-SVG previous graft), AVR, Ascending aorta and andrae arch replacement 08/[address] Lozano - [...] needed after 3 months, clear use with technician support association before starting OARRS reviewed on 05/17/2024 Rx [...] assess discharge needs WILEY Cyr Cardiac Surgery [facility] Team 08/06/2024 2:18 PM * WILEY Cyr - 08/05/2024 8:31 AM EDT CARDIAC SURGERY DAILY PROGRESS NOTE Zora Nixon is a 69 year old female with a PMH significant for CABG and AVR in 2004, hysterectomy, breast cancer s/p chemo (mediport), 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 She presents s/p redo sternotomy, CABG x 2 (SVG-PDA and SVG-SVG previous graft), AVR bioprosthetic and ascending Aorta/Andrae- Arch w/ Dr. Lozano on 08/01. 08/03/2024 OPERATION: by Ruel Lozano REDO Replacement Aortic Valve w/21mm Avalus Ultra, REDO Cabg x 2 w/Right Saphenous Vein, Open Saphenous Vein [place], SVG - PDA, SVG to left sided [...] SVG-SVG previous graft), AVR, Ascending aorta and andrae arch replacement 08/[address] Lozano - [...] labs, transfuse as indicated Thrombocytopenia Recent Labs 08/05/24 0628 08/04/24 0238 08/03/24 [...] needed after 3 months, clear use with technician support association before starting OARRS reviewed on 05/17/2024 Rx [...] assess discharge needs WILEY Cyr Cardiac Surgery [facility] Team 08/05/2024 8:31 AM * Vanesa Alvarado, PARUL - 08/04/2024 12:53 PM EDT 08/04/24 0506 Discharge Planning Living Arrangements Family members (Lives [...] OT;Home PT Expected Discharge Disposition Home H ([place] [address] zip) Does the patient need discharge transport arranged? [...] were you homeless or living in a nursing home (including now)? N Transportation Needs In the [...] address / PCP / and pharmacy. Reviewed [facility] loc as a service, right to choice and list to choose. Patient wants [facility] agency arranged frompast admit in May which is [facility]. Vanesa Alvarado (LINE PRODUCTION COOK, PIT FURNACE OPERATOR) * Shawna Casanova, POACHER OPERATOR - 08/04/2024 10:57 AM EDT Speech-Language Pathology Adult Inpatient Swallow Treatment Patient Name: Zora Nixon Today's Date: 08/04/2024 Start Time: 820 Stop Time: 0853 Time Calculation (min): 32 Impression: Swallow treatment completed to determine readiness for PO intake. Pt with similar clinical presentation when compared to initial evaluation completed 08/03. DHT in place. Decreased O2 requirement. Continued weak wet nonproductive volitional cough. Pt stated she has not been given ice chips as per POACHER OPERATOR recommendation. Pt unable to complete 3oz. Water challenge to r/o silent aspiration 2/2 frequent pausing, inability to coordinate breathing/swallowing, weak wet nonproductive coughing and increasedwork of breathing. POACHER OPERATOR and pt discussed desire for PO intake, pt reported even if I could eat I wouldn't b/c nothing tastes right. She reported understanding for the need of alternate means nutrition/hydration. POACHER OPERATOR will continue to follow up to determine readiness for PO intake vs need for instrumental swallow assessment. Pt in agreement with dysphagia POC. POACHER OPERATOR continues to recommend NPO with frequent aggressive [...] 08/03/24 End Date: 08/17/24 Status: Progressing Plan: POACHER OPERATOR Services Indicated: Yes Frequency: 2x week Discussed POC with patient POACHER OPERATOR - OK to Discharge Pain: 0-10 0 = No pain. Inpatient Education: Extensive education provided to patient regarding current swallow function, recommendations/results, and POC. Consultations/Referrals/Coordination of Services: N/A * Geovanny Bolton MD - 08/04/2024 10:38 AM EDT Zora Nixon is a 69 y.o. female on day 3 of admission presenting with Aneurysm of ascending aortawithout rupture ([facility]). Subjective Patient discussed in morning handover, patient examined and chart reviewed. Meds, labs and radiology reviewed during rapid and full interdisciplinary rounds this morning. Surgeon: Marta DOS: 08/01 Procedure: Redo-sternotomy, CABG x 2 (SVG-PDA and SVG-SVG previous graft), AVR bioprosthetic and ascending Aorta/Andrae- Arch. Airway: grade I - full view [...] GERD Post-op: - Failed bedside swallow assessment. POACHER OPERATOR recommends PO with ice chips. Dobhoff placed [...] Problem: Aneurysm of ascending aorta without rupture ([facility]) Active Problems: Ascending aortic aneurysm, unspecified whether ruptured ([facility]) ICU Liberation Bundle: A-Analgesia: Tylenol and opioids [...] daily initiated On enteral feeds; will need POACHER OPERATOR follow-up ASA and statin; re-assess other home [...] separately. Geovanny Bolton MD * Kerry Bruce, CREDIT CONTROL MANAGER-FLOOR LAYER HELPER - 08/04/2024 7:01 AM EDT CTICU Progress Note Zora Zepeda Hussain/[id number] Admit Date: 08/01/2024 Hospital Length of Stay: [...] SVG-SVG previous graft), AVR bioprosthetic and ascending Aorta/Andrae- Arch w/ Dr. Lozano on 08/01. Plan: [...] SVG-SVG previous graft), AVR, Ascending aorta and andrae arch replacement with deep hypothermic circulatory arrest [...] PMH of GERD. Failed bedside swallow assessment. POACHER OPERATOR recommends PO with ice chips. Dobhoff placed [...] tower 3 this afternoon CTICU TEAM PHONE [phone] * Renay Phelan, - 08/03/2024 6:30 PM EDT CTICU Attending Note Patient seen, evaluated, and discussed with the EMRE and fellow. I have personally obtained celestin [...] separately. Critical Care Time: 32 minutes. * Venu Kathleen, PT - 08/03/2024 4:00 PM EDT Physical Therapy Physical Therapy Evaluation & Treatment Patient Name: Zora Nixon Department: [facility] [id number] CR NONV1 Room: Today's Date: 08/03/2024 Time [...] Prior Function Per Pt/Caregiver Report Level of Metcalfe: Independent with ADLs and functional transfers Receives [...] education provided onsignificance and use Outcome Measures: [facility] Basic Mobility Turning from your back to [...] task) Sitting: Supervision or set-up only Transfer Jjm-wh-Wjlmf: Minimal assistance (performs 75% or more of task) Transfer Byjffz-jb-Vza: Minimal assistance (performs 75% or more of [...] 08/17/24 Education Documentation Body Mechanics, taught by Venu Kathleen PT at 08/03/2024 3:59 PM. Learner: Patient Readiness: Acceptance Method: Explanation Response: Verbalizes Understanding Precautions, taught by Venu Kathleen PT at 08/03/2024 3:59 PM. Learner: Patient Readiness: Acceptance Method: Explanation Response: Verbalizes Understanding Mobility Training, taught by Venu Kathleen PT at 08/03/2024 3:59 PM. Learner: Patient Readiness: Acceptance Method: Explanation Response: Verbalizes Understanding Education Comments No comments found. VENU PRINCIPI, PT * Shawna Casanova, POACHER OPERATOR - 08/03/2024 10:54 AM EDT Speech-Language Pathology Adult Inpatient Clinical Bedside Swallow Evaluation Patient Name: Zora Nixon Today's Date: 08/03/2024 Start Time: 920 Stop Time: 947 Time Calculation (min): 27 History of Present [...] further trials given 2/2 severity/risk of aspiration. POACHER OPERATOR recommends NPO with frequent aggressive oral care. [...] End Date: 08/17/24 Status: Goal Initiated this Plan: POACHER OPERATOR Services Indicated: Yes Frequency: 2x week Discussed POC with patient POACHER OPERATOR - OK to Discharge Pain: 0-10 0 = No pain. Inpatient Education: Extensive education provided to patient regarding current swallow function, recommendations/results, and POC. Consultations/Referrals/Coordination of Services: N/A * Letha Jurado PA-C - 08/03/2024 8:20 AM EDT CTICU Progress Note Zora Nixon/[id number] Admit Date: 08/01/2024 Hospital Length of Stay: [...] %] 60 % S RR: [12-18] 18 DC SUP: [7 cm H20] 7 cm H20 [...] post Redo sternotomy, AVR, Ascending aorta and andrae arch replacement with deep hypothermic circulatory arrest [...] PMH of Gerd. Failed bedside swallow assessment. POACHER OPERATOR recommends PO with ice chips. Dobhoff placed [...] CTICU care for now. CTICU TEAM PHONE [phone] * Renay Phelan, - 08/02/2024 7:43 PM EDT CTICU Attending Note Patient seen, evaluated, and discussed with the EMRE and fellow. I have personally obtained celestin [...] PM EDT Occupational Therapy Evaluation Patient Name: Zora Nixon Today's Date: 08/03/2024 Room: Time Calculation [...] 1. Ascending aortic aneurysm, unspecified whether ruptured ([facility]) Anesthesia Intraoperative Transesophageal Echocardiogram Anesthesia Intraoperative Transesophageal Echocardiogram 2. Aneurysm of ascending aorta without rupture ([facility]) Anesthesia Intraoperative Transesophageal Echocardiogram Anesthesia Intraoperative Transesophageal Echocardiogram Surgical Pathology Exam Surgical Pathology Exam 3. Aortic valve stenosis, etiology of cardiac valve disease unspecified Anesthesia Intraoperative Transesophageal Echocardiogram Anesthesia Intraoperative Transesophageal Echocardiogram 4. Nonrheumatic aortic valve stenosis Cardiac device check - Surgery Cardiac device check - Surgery 5. 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 ([facility]) Cardiac device check - Surgery Cardiac device [...] pt d/t fatigue Prior Function: Level of Metcalfe: Independent with ADLs and functional transfers, Independent [...] Extremities: , , , and Outcome Measures: [facility] Daily Activity Putting on and taking off [...] at 1:08 PM FAUZIA SMITH Rehab Office: [phone] Cosigned by Claudia aRo OT at 08/03/2024 1:43 PM EDT * Claudia Rao OT - 08/02/2024 11:23 AM EDT Occupational Therapy Therapy Communication Note Patient Name: Zora Nixon Department: [facility] [id number] CR NONV1 Room: A Today's Date: 08/02/2024 Discipline: Occupational Therapy Missed Visit Reason: Missed Visit Reason: (Pt with increased respiratory needs, currently on Bipap.No OT at this time.) Missed Time: Attempt * Kailey Glasgow, PT - 08/02/2024 11:18 AM EDT Physical Therapy Therapy Communication Note Patient Name: Zora Nixon Department: [place] [address] Room: Today's Date: 08/02/2024 Discipline: Physical Therapy Missed Visit Reason: Missed Visit Reason: (1016. Pt with increased respiratory needs. Will reattempt as appropriate.) Missed Time: Attempt Comment: * Letha Jurado PA-C - 08/02/2024 8:09 AM EDT CTICU Progress Note Zora Nixon/[id number] Admit Date: 08/01/2024 Hospital Length of Stay: [...] cm H20-8 cm H20] 5 cm H20 DC SUP: [5 cm H20-8 cm H20] 5 cm H20 MAP (cm H2O): [11-14] 11 Physical Exam: - CONSTITUTION: Critically ill female lying in bed in CTICU on BiPAP. - NEUROLOGIC: AO x1 and CAM (+). Follows commands and moves all extremities. - CARDIOVASCULAR: Paced VVI - RESPIRATORY: On BiPAP 12/5. Respiratory acidosis. Equal rise/fall of chest. - [...] post Redo sternotomy, AVR, Ascending aorta and andrae arch replacement with deep hypothermic circulatory arrest [...] --> - Continue PPI - NPO - POACHER OPERATOR consult - Colace/senna BID and miralax BID [...] CTICU care for now. CTICU TEAM PHONE [phone] * Renay Phelan DO - 08/01/2024 6:48 PM EDT Patient seen, evaluated, and discussed with the EMRE and fellow. I have personally obtained celestin [...] separately. Critical Care Time: 38 minutes. * Miki Weeks, [facility] - 07/31/2024 4:05 PM EDT Pharmacy Medication History Review Zora Nixon is a 69 y.o. female who is planned to be admitted for Aneurysm of ascending aorta without rupture ([facility]). Pharmacy called the patient prior to their scheduled procedure and reviewed the patient's vnftg-ac-xvsgqcncc medications for accuracy. Medications ADDED: none Medications [...] Below are additional concerns with the patient's ENGINEERING SCIENTIST list. none Miki Weeks RPh Meds [facility] Please reach out via Secure Chat for questions documented in this [facility] Work Phone: 1(372) 914-467610-23-2024 Hospital course Narrative* Awa Dang, CREDIT CONTROL MANAGER-FLOOR LAYER HELPER - 08/09/2024 10:47 AM EDT Discharge Diagnosis Aneurysm of ascending aorta without rupture ([facility]) Issues Requiring Follow-Up Follow up with PCP, cardiology, and cardiac surgery after discharge Test Results Pending At Discharge Pending Labs Order Current Status Surgical Pathology Exam In process Hospital Course obraxton Nixon is a 69 year old female with a PMH significant for CABG and AVR in 2004, hysterectomy,breast cancer s/p chemo (mediport), 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 She presents s/p redo sternotomy, CABG x 2 (SVG-PDA and SVG-SVG previous graft), AVR bioprosthetic and ascending Aorta/Andrae- Arch w/ Dr. Lozano on 08/01. 08/01/2024 OPERATION: by Ruel Lozano REDO Replacement Aortic Valve w/21mm Avalus Ultra, REDO Cabg x 2 w/Right Saphenous Vein, Open Saphenous Vein [place], SVG - PDA, SVG to left sided [...] Qty: 9, Days supply: 30, prescribed by [facility] 04/30/24, Medication: Oxycodone-Acetaminophen 5-325 , Qty: 10, [...] SVG-SVG previous graft), AVR, Ascending aorta and andrae arch replacement 08/[address] Lozano On [...] Provider Department Center 09/04/2024 2:00 PM [place] [facility] [id number] NURSE [id number] [facility] 09/20/2024 10:20 AM Marcelo Davey MD [id number] [facility] 09/27/2024 11:45 AM Cayden Bae MD [id number] [facility] 09/29/2024 9:00 AM Ruel Lozano MD [id number] Academic WILEY Reynolds documented in this [facility] Work Phone: 1(988) 368-292010-22-2024 Miscellaneous Notes* Significant Event - WILEY Cyr - 08/08/2024 3:20 PM EDT Epicardial Wires 2 ventricular epicardial wires pulled without difficulty. Patient tolerated well. Bedrest for 1 hour with VS as per pacer wire removal guidelines. WILEY Cyr Cardiac Surgery EMRE [facility] Team * Hospital Course - WILEY Reynolds [...] SVG-SVG previous graft), AVR bioprosthetic and ascending Aorta/Andrae- Arch w/ Dr. Lozano on 08/01. 08/01/2024 OPERATION: by Ruel Lozano REDO Replacement Aortic Valve w/21mm Avalus Ultra, REDO Cabg x 2 w/Right Saphenous Vein, Open Saphenous Vein [place], SVG - PDA, SVG to left sided [...] Qty: 9, Days supply: 30, prescribed by [facility] 04/30/24, Medication: Oxycodone-Acetaminophen 5-325 , Qty: 10, [...] SVG-SVG previous graft), AVR, Ascending aorta and andrae arch replacement 08/[address] Lozano On [...] throughout shift * Documentation Clarification Note - Letha Jurado PA-C - 08/06/2024 7:02 AM EDT PATIENT: ZORA NIXON : 1955 ADMIT DATE: 08/01/2024 5:28 AM DISCH DATE: RESPONDING PROVIDER #: [id number] PROVIDER RESPONSE TEXT: Acute respiratory acidosis CDI [...] on 08/03/2024 6:05 PM Electronically signed by: LETHA JURADO PA-C 08/06/2024 7:02 AM * Care Plan - Donald Rdz RN - 08/05/2024 2:54 PM EDT The clinical goals for the shift include Pt will remain Hemodynamically stable and free of falls throughout shift * Care Plan - Ghsilaine Petersen RN - 08/05/2024 4:22 AM EDT [...] 2 w/Right Saphenous Vein, Open Saphenous Vein [place], SVG - PDA, SVG to left sided SVG, REDO Median Sternotomy, Right Femoral Arterial and Venous Exploration, Replacement of Ascending Aorta w/28mm x 8mm Ante-Roberto Gelweave, Hypothermic Ci rculatory Arrest, Retrograde Cereberal Perfusion Operative Note Date: 08/01/2024 OR Location: [facility] OR Name: Zora Nixon, : 1955, Age: 69 y.o., , Sex: female Diagnosis Pre-op Diagnosis * Aneurysm of ascending aorta without rupture (CMS-HCC) [I71.21] Post-op Diagnosis * Aneurysm of ascending aorta without rupture (CMS-HCC) [I71.21] Procedures REDO Replacement Aortic Valve w/21mm Avalus Ultra, REDO Cabg x 2 w/Right Saphenous Vein, Open Saphenous Vein [place], SVG - PDA, SVG to left sided SVG, REDO Median Sternotomy, Right Femoral Arterial and Venous Exploration 30383 - DC RPLCMT PROST AORTIC VALVE OPEN XCP HOMOGRF/STENT Replacement of Ascending Aorta w/28mm x 8mm Ante-Roberto Gelweave, Hypothermic Circulatory Arrest, Retrograde Cereberal Perfusion 27498 - DC -AORT GRF W/CARD BYP F/AORTIC DS OTH/THN DSJ Surgeons * Ruel Lozano - Primary Resident/Fellow/Other Maintenance Shop Welder: Surgeons and Role: * No surgeons found with a matching role * Procedure Summary Anesthesia: General ASA: IV Anesthesia Staff: Anesthesiologist: Damon Khan MD C-AA: NEVIN Moon Employment Advisor: Erik Kumar Estimated Blood Loss: 500 mL [...] EXAM Ruel Lozano MD 08/01/2024 1110 Staff: Ring Cutter Lathe Operator: Malika Scrub Person: Shakir Ring Cutter Lathe Operator: Nicole Drains and/or Catheters: Chest Tube Left Pleural (Active) Function -20 cm H2O 08/03/24 Chest Tube Air Leak No 08/03/24 Patency Intervention Tip/tilt 08/03/24 Drainage Description Serosanguineous 08/03/24 Dressing Status Clean;Dry;Occlusive 08/03/24 0400 Site Assessment Clean;Dry;Intact 08/03/24399 Surrounding Skin Dry;Intact 08/03/24 Output (mL) 0 mL 08/03/24 0700 Chest Tube Right Pleural (Active) Function -20 cm H2O 08/03/24 Chest Tube Air Leak No 08/03/24 Patency Intervention Tip/tilt 08/02/241999 Drainage Description Serosanguineous 10/17/24 0000 Dressing Status Clean;Dry;Occlusive 08/03/24 0400 Site Assessment Clean;Dry;Intact 08/03/24 0400 Surrounding Skin Dry;Intact 08/03/24 0000 Output (mL) 20 mL 08/03/24 0700 Chest Tube 1 Mediastinal (Active) Function -20 cm H2O 08/03/24 Chest Tube Air Leak No 08/03/24 0000 [...] by other volumes and urine collection strategies Output (mL) 51 mL 08/03/24 1100 [REMOVED] External Urinary Catheter Female (Removed) Tourniquet Times: Implants: Implants Type Name Action Serial No. Implant GRAFT, VASCULAR, IMPREGNATED, WOVEN, GELWEAVE, 8 MM X 15 CM - [id number] - [id number] Used, Not Implanted [id number] Implant PATCH, VASCULAR, MESH, LOW POROSITY, 6 X 6 IN, EPTFE - [id number] Implanted Other Cardiac Implant GRAFT, SNGL BRANCH 28MM - [id number] Implanted [id number] Heart Valve Repair VALVE, AORTIC AVALUS ULTRA, 21MM - [id number] - [id number] Implanted [id number] Other Cardiac Implant PATCH, TACHOSIL, 4.8CM X 4.8CM, ABSORABLE FIBRIN SEALANT - SN/A - [id number] Used, Not Implanted N/A Findings: There were dense pericardial adhesions. The ascending aorta was dilated. The aortic arch was calcified. The bioprosthetic aortic valve leaflets were calcified. The left ventricle and heart were of normal size and demonstrated normal function. The right coronary artery was diffusely diseased however we were able to find a location distally that was suitable for grafting. Indications: Zora Nixon is an 69 y.o. female who is having surgery for Aneurysm of ascending aorta without rupture ([facility]) [I71.21]. The patient has a history of [...] dressing change Outcome: Progressing Flowsheets (Taken 08/02/2024 023) Decreased wound size/increased tissue granulation at next [...] next dressing change Outcome: Progressing Flowsheets (Taken 08/02/20240) Decreased wound size/increased tissue granulation at next [...] Epperson RRT - 08/01/2024 10:10 PM EDT 08/01/24 2207 Daily Screen Total RSBI (S) 47.48 Weaning Parameters Weaning Vital Capacity (S) 441 mL Negative Inspiratory Force (NIF) (S) -27 Spontaneous Minute Volume (MV) (S) 5.39 Weaning Tidal Volume (S) 337 mL Respiratory Depth/Rhythm (S) (rr 16) Respiratory Effort (S) Unlabored (RR 16) * Brief Op Note - Ellis Mccrary SA - 08/01/2024 8:36 AM EDT Date: 08/01/2024 OR Location: [facility] OR Name: Zora Nixon, : 1955, Age: 69 y.o., , Sex: female Redo Median Sternotomy Right Femoral Artery and Right Femoral Vein Exploration CABG x 2 with Right Open Saphenous Vein [place] (SVG-PDA and SVG-SVG Left sided Graft from previoussurgery) Aortic Valve Replacement with a 21 mm BIOPROSTHETIC Avalus Ultra Valve Ascending Aorta and Andrae-Arch Replacement with a 28 x 8 mm [...] rupture (CMS-HCC) [I71.21] Procedures Replacement Aortic Valve 73635 - DC RPLCMT PROST AORTIC VALVE OPEN XCP HOMOGRF/STENT Replacement of Ascending Aorta w/28mm x 8mm Ante-Roberto Gelweave, Hypothermic Circulatory Arrest, Retrograde Cereberal Perfusion 01866 - DC -AORT GRF W/CARD BYP F/AORTIC DS OTH/THN DSJ Surgeons * Ruel Lozano - Primary Resident/Fellow/Other Maintenance Shop Welder: Emmett HURD Procedure Summary Anesthesia: Anesthesia type not filed in the log. ASA: IV Anesthesia Staff: Anesthesiologist: Damon Khan MD C-AA: NEVIN Moon Employment Advisor: Erik Kumar Estimated Blood Loss: 500 mL [...] EXAM Ruel Lozano MD 08/01/2024 1110 Staff: Ring Cutter Lathe Operator: Malika Scrub Person: Shakir Ring Cutter Lathe Operator: Nicole Findings: Aortic Stenosis, CAD, Ascending Aortic [...] 08/03/2024 12:03 PM EDT documented in this [facility] Work Phone: 1(453) 218-892410-22-2024 Hospital Discharge instructions* Discharge Instructions* Daniela Adames Adrian, CREDIT CONTROL MANAGER-FLOOR LAYER HELPER - 08/08/2024 3:07 PM EDT Don't forget [...] IN THE TUBE and think of a T. Pedro dinosaur! IMPORTANT Prevention of Infective Endocarditis (Heart Infections) [...] an active infection Please notify your dentist/primary physician/technician support association PRIOR to these types of procedures to [...] and deep breath. - No NSAIDs (common uyse-lns-xitvepn NSAIDs are ibuprofen/Motrin/Advil, naproxen/Naprosyn/Aleve) for 3 months after cardiac surgery; if NSAIDs needed after 3 months, clear use with technician support association before starting. Your home medications may have [...] please call the cardiac surgery office at [phone] [facility] Work Phone: [phone]) 220-979810-17-2024 Consult note* Marlee Guzman RDN, MK - [...] upon visit then fell back to sleep. POACHER OPERATOR evaluation 08/03 recommended NPO. Vitamin/Herbal Supplement Use: [...] Well nourished (full, rounded cheeks) Triceps: Defer (UNIQUE) Muscle Wasting: Temporalis: Mild-Moderate (slight depression) (mild) Pectoralis (Clavicular Region): Defer (UNIQUE) Deltoid/Trapezius: Mild-Moderate (slight protrusion of acromion process) [...] Results from last 7 days Lab Units 08/03/2425708/02/24 1221 08/02/24 0004 08/01/24 1452 POTASSIUM mmol/L [...] Spent (min): 60 minutes [facility] Phone: [phone]) 740-954510-17-2024 Procedure note* Letha Jurado PA-C - 08/03/2024 11:13 AM EDT Small bore feeding tube placed using the Cortrak machine. Tube passed easily and appears ... on Cortrak. No evidence of respiratory compromise. Bridled in place. KUB ordered to confirm placement. [facility] Work Phone: [phone]) 574-926310-15-2024 History and physical note* WILEY Zapata - [...] x 2 with Right Open Saphenous Vein [place] (SVG-PDA and SVG-SVG [facility] Aortic Valve Replacement with a 21 mm BIOPROSTHETIC Avalus Ultra Valve Ascending Aorta and Andrae-Arch Replacement with a 28 x 8 mm [...] Father Cancer Sister breast Review of Systems: UNIQUE emerging from anesthesia Objective Vitals: Most Recent: [...] Internal jugular (Active) Placement Date/Time: 08/01/24 (c) 0807 Hand Hygiene Performed Prior to CVC Insertion: Yes Site Prep: Chlorhexidine Site Prep Agent has Completely Dried Before Insertion: Yes All 5 Sterile Barriers Used (Gloves, Gown, Cap, Mask, Large Sterile Mary... Number of days: 0 Arterial Line 08/01/24 Left Brachial (Active) Placement Date/Time: 08/01/24 (c) 0734 Size: 20 G Orientation: Left Location: Brachial [...] sedated - NEUROLOGIC: Pupils equal and reactive. Unique still sedated - CARDIOVASCULAR: Sinus rhythm 80's. V wires backed up - RESPIRATORY: Crackles, intubated - GI: Soft nondistended - : clear yellow urine in jay - EXTREMITIES: warm, pulses palpable - SKIN: warm - PSYCHIATRIC: UNIQUE Lab Review:reviewed No lab exists for component: [...] post Redo sternotomy, AVR, Ascending aorta and andrae arch replacement with deep hypothermic circulatory arrest withretrograde perfusion w/ Dr. Lozano. AICD. PPM DDDr 60-120. Pre/Post EF: normal BIV[facility] V epicardial wires set [...] CTICU care for now. CTICU TEAM PHONE [phone] * Ruel Lozano MD - 08/01/2024 6:56 AM EDT H&P reviewed. The patient was examined and there are no changes to the H&P. Source Note - Alondra HayesNEFTALI-FLOOR LAYER HELPER - 07/24/2024 8:30 AM EDT Images from the original note were not included. CPM/PAT Evaluation Name: Zora Nixon (Zora Nixon) /Age: 401/26/1955/69 y.o. Visit Type: In-Person [...] as needed for muscle spasms (Pain). 07/04/24 WILEY Carlson lidocaine-prilocaine (Emla) 2.5-2.5 % cream Apply [...] mouth once daily at bedtime. 05/31/24 06/30/24 WILEY Carlson pantoprazole (ProtoNix) 40 mg EC tablet Take [...] Flowsheet Row Pre-Admission Testing from 07/24/2024 in [facility] Pre-Admission Testing from 12/31/2023 in [facility] Can you take care of yourself (eat, dress, bathe, or use toilet)? 2.75 filed at 07/24/202442 2.75 filed at 12/31/2023 1030 Can you walk indoors, such as around your house? 1.75 filed at 07/24/202442 1.75 filed at 12/31/2023 1030 Can you walk a block or two on level ground? 2.75 filed at 07/24/2024 0842 2.75 filed at 030 Can you climb a flight of stairs or walk up a hill? 5.5 filed at 07/24/202442 5.5 filed at 12/31/2023 1030 Can you run a short distance? 0 filed at 07/24/2024 0842 8 filed at 12/31/2023 1030 Can you do light work around the house like dusting or washing dishes? 2.7 filed at 07/24/2024 99723.7 filed at 12/31/2023 1030 Can you do moderate work around the house like vacuuming, sweeping floors or carrying groceries? 3.5 filed at 07/24/2024 0842 3.5 filed at 12/31/2023 1030 Can you [...] Flowsheet Row Pre-Admission Testing from 07/24/2024 in [facility] Admission (Discharged) from 06/06/2024 in [facility] [place] 4 with Aaron Bray MD DVT Score [...] Flowsheet Row Pre-Admission Testing from 07/24/2024 in [facility] Pre-Admission Testing from 12/31/2023 in [facility] Non-independent functional status (problems with dressing, bathing, personal grooming, or cooking) 0 filed at 07/24/2024 0845 0 filed at 12/31/2023 1253 History of diabetes mellitus 0 filed at 07/24/2024 0845 0 filed at 12/31/2023 1253 History of COPD 0 filed at 07/24/2024 0845 0 filed at 12/31/2023 1253 History of CHF 0.0909 filed at 07/24/2024 0845 0.0909 filed at 12/31/2023 1253 History of KS 0.0909 filed at 07/24/2024 0845 0.0909 filed [...] Flowsheet Row Pre-Admission Testing from 07/24/2024 in [facility] Pre-Admission Testing from 12/31/2023 in [facility] High-Risk Surgery (Intraperitoneal, Intrathoracic,Suprainguinal vascular) 1 filed at 07/24/2024 0845 1 filed at 12/31/2023 1252 History of ischemic heart disease (History of KS, History of positive exercuse test, Current chest [...] Flowsheet Row Pre-Admission Testing from 07/24/2024 in [facility] Pre-Admission Testing from 12/31/2023 in [facility] Smoking status 1 filed at 07/24/2024 0845 [...] Flowsheet Row Pre-Admission Testing from 07/24/2024 in [facility] Pre-Admission Testing from 12/31/2023 in [facility] Do you snore loudly? 0 filed at [...] or 16 inches (Female)? 0 filed at 07/24/2024840 0 filed at 12/31/2023 1029 Gender - Male 0=No filed at 07/24/2024840 0=No filed at 12/31/2023 1029 STOP-BANG Total Score 2 filed at 07/24/2024840 2 filed at 12/31/2023 1029 Recent Results [...] Evaluation The patient follows with cardiology, Dr. Cayden Bae. Patient was last seen 06/28/24. Per [...] low dose carbo/gem. CBC obtained. Oncology: Dr. Davey TOMASA 06/28/24 Per note, she isn't a candidate [...] After Visit Summary given. documented in [facility] Work Phone: 1(338) 888-415509-20-2024 History of Present illness Narrative* Ruel Lozano MD - 07/07/2024 10:30 AM EDT Zora return to discuss treatment recommendations for prosthetic [...] who wishes to proceed. documented in this [facility] Work Phone: 1([phone]) 472-458709-11-2024 History of Present illness Narrative* Cayden Bae MD - 06/28/2024 11:45 AM EDT Images from the original note were not included. Subjective Zora Nixon is a 69 y.o. female Cancer Diagnosis: Breast Treatment: Plan for Cumulative Dose: Radiation: Risk Factors: Aortic valve insufficiency, arrythmia, CVA, CHF, HOCM, HTN, HLD, KS, CADs/p CABG/Stent, Pacer TIA Social Hx: Former Smoker Family Hx: Father heart disease Echo 02/11/2024 EF 45-50% Briefly patient is a 69-year-old female with a medical history of dual-chamber [employer] ICD (implanted 2010), generator replacement June [...] catheterization (unclear date) noted in her outside technician support association chart with documented all grafts down except [...] Dr. Lozano. Arrhythmia [place] Ascending aorta dilation ([facility]) s/p repair abdominal aortic aneurysm Breast cancer ([facility]) 11/2023 Right Breast- Have not seen the provider yet Cerebral vascular accident ([facility]) 2009 no deficits x2 CHF (congestive heart failure) ([facility]) Congestive heart failure ([facility]) 12/01/2023 diastolic LVEF 70% BY 02/2012 STRESS NYHA CLASS II Coronary artery disease s/p cabgx 3 Depression Dizziness GERD (gastroesophageal reflux disease) controlle with protonix HOCM (hypertrophic obstructive cardiomyopathy) ([facility]) 12/01/2023 Hyperlipidemia Hypertension Irregular heart beat afib [...] for breast cancer/cardiotoxic chemotherapy -RTC 3 months Cayden Bae MD Advanced Heart Failure/Transplant Cardiology Cardio-Oncology [facility] documented in this [facility]Tr[facility] Work Phone: 1([phone]) 527-422709-11-2024 Instructions* Patient Instructions* Katrin Rodriguez RN - 06/28/2024 11:45 AM EDT Follow up with Dr. Bae in 3 months documented in this encounterTr[facility] Work Phone: 1([phone]) 364-899909-11-2024 History of Present illness Narrative* Marcelo Davey MD - 06/28/2024 10:40 AM EDT Images from the original note were not included. Breast Medical Oncology Clinic Location: Virtual BREAST CANCER DIAGNOSIS Malignant neoplasm of lower-outer quadrant of right breast of female, estrogen receptor negative (Multi), Clinical: Stage IIB (cT2(m), cN1(f), cM0, G3, ER-, DC-, HER2+) CURRENT THERAPY S/p 3 cycles of dose reduced gemcitabine/carboplatin days 1 and 8 q21 days HISTORY OF PRESENT ILLNESS Zora Nixon is a 69 y.o. woman with incidentally found breast cancer after chest CT for heart surgery work up (she has aortic valve disease) found breast mass and axillary adenopathy in the right breast. Biopsy of both revealed HER2+, ER/DC- breast cancer. Other outside staging workup raised [...] Aortic valve insufficiency, Arrhythmia, Ascending aorta dilation ([facility]), Breast cancer ([facility]) (11/2023), Cerebral vascular accident ([facility]) (2009), CHF (congestive heart failure) ([facility]), Congestive heart failure (Multi) (12/01/2023),Coronary artery disease, Depression, Dizziness, GERD (gastroesophageal reflux disease), HOCM (hypertrophic obstructive cardiomyopathy) ([facility]) (12/01/2023), Hyperlipidemia, Hypertension, Irregular heart beat, Lumbosacral [...] Cardiac valve replacement; and Abdominal aortic aneurysmrepair (2005). Social History: reports that she quit smoking [...] Diagnostic Results TRANSTHORACIC ECHOCARDIOGRAM REPORT Patient Name: ZORA Lewis Physician: [id number] Vikram Schofield MD Study Date: 02/11/2024 Ordering Provider: [id number] MARCELO DAVEY MRN/PID: [id number] Fellow: Nurse: Date of /Age: 401/26/1955 / 69 years [employer] Supervisor: Miri Cox RDCS Gender: F Additional Staff: Height: 152.40 cm Admit Date: Weight: 69.40 kg Admission Status: Outpatient BSA / BMI: 1.67 m2 / 29.88 kg/m2 Department Location: [place] [facility] Blood Pressure: 150 /78 mmHg Study Type: TRANSTHORACIC ECHO (TTE) LIMITED Diagnosis/ICD: Encounter for monitoring cardiotoxic drug therapy-Z51.81 Indication: cardiac eval for cardiotoxic drug thereapy. CPT Code: Echo Limited-70198; Myocardial Strain Imaging-01521; Doppler Limited-43202 Study Detail: The following Echo studies were [...] as stated. This study was interpreted at [facility], [place], [place]. MACRO: None Signed by: Luis Manuel Parrish 02/23/2024 3:29 PM Dictation workstation: [id number] LABORATORY/PATHOLOGY DATA Lab on 06/23/2024 Component Date [...] In process Outside pathology report reviewed. IMPRESSION/PLAN [id number] HER2+/ER-/DC- right sided breast cancer. Since she isn't [...] of Breast Cancer Medical Oncology Research Program [facility] rn call center [address] [place] [address] [email or web address] documented in this encounterTrumbull [facility] Work Phone: 1(611) 505-324909-11-2024 Instructions* Patient Instructions* Pearl Mason RN - 06/28/2024 10:40 AM EDT Please call us at [phone] option 5 then option 2 with any questions or concerns Follow-up with me after heart surgery, Probably in about 2-3 months No further chemo for now Thanks documented in this encounterTr[facility] Work Phone: 1(803) [phone] History of Present illness Narrative* Neli Cox, NEFTALI-FLOOR LAYER HELPER - 06/12/2024 2:30 PM EDT Images from the original note were not included. Breast Medical Oncology Clinic Location: Virtual BREAST CANCER DIAGNOSIS Malignant neoplasm of lower-outer quadrant of right breast of female, estrogen receptor negative (Multi), Clinical: Stage IIB (cT2(m), cN1(f), cM0, G3, ER-, DC-, HER2+) Prior THERAPY dose reduced gemcitabine/carboplatin days 1 and 8 q21 days HISTORY OF PRESENT ILLNESS Zora Nixon is a 69 y.o. woman with incidentally found breast cancer after chest CT for heart surgery work up (she has aortic valve disease) found breast mass and axillary adenopathy in the right breast. Biopsy of both revealed HER2+, ER/DC- breast cancer. Other outside staging workup raised [...] Aortic valve insufficiency, Arrhythmia, Ascending aorta dilation ([facility]), Breast cancer ([facility]) (11/2023), Cerebral vascular accident ([facility]) (2009), CHF (congestive heart failure) ([facility]), Congestive heart failure (Multi) (12/01/2023),Coronary artery disease, Depression, Dizziness, GERD (gastroesophageal reflux disease), HOCM (hypertrophic obstructive cardiomyopathy) ([facility]) (12/01/2023), Hyperlipidemia, Hypertension, Irregular heart beat, Lumbosacral [...] Diagnostic Results TRANSTHORACIC ECHOCARDIOGRAM REPORT Patient Name: ZORA NIXON Debbie Physician: [id number] Vikram Schofield MD Study Date: 02/11/2024 Ordering Provider: [id number] MARCELO DAVEY MRN/PID: [id number] Fellow: Nurse: Date of /Age: 401/26/1955 / 69 years [employer] Supervisor: Miri Cox RDCS Gender: F Additional Staff: Height: 152.40 cm Admit Date: Weight: 69.40 kg Admission Status: Outpatient BSA / BMI: 1.67 m2 / 29.88 kg/m2 Department Location: [place] [facility] Blood Pressure: 150 /78 mmHg Study Type: TRANSTHORACIC ECHO (TTE) LIMITED Diagnosis/ICD: Encounter for monitoring cardiotoxic drug therapy-Z51.81 Indication: cardiac eval for cardiotoxic drug thereapy. CPT Code: Echo Limited-07385; Myocardial Strain Imaging-45800; Doppler Limited-61576 Study Detail: The following Echo studies were [...] as stated. This study was interpreted at [facility], [place], [place]. MACRO: None Signed by: Luis Manuel Parrish 02/23/2024 3:29 PM Dictation workstation: [id number] LABORATORY/PATHOLOGY DATA Lab Results Component Value Date [...] 06/07/20242008 , Outside pathology report reviewed. IMPRESSION/PLAN [id number] HER2+/ER-/DC- right sided breast cancer. Not a candidate [...] out with any questions. Neli Cox MSN, CREDIT CONTROL MANAGER, ADULT FAMILY HOME PROGRAM MANAGER-C [facility] Division of Medical Oncology- Breast Collaborating Physician Dr. Marcelo Davey Team Nurse Partners Snehal Holloway, [place] [address] Available via Secure Chat Confidential Peer Review Document- General Medical Practitioner Privilege Privileged Pursuant to [place] Revised Code Section 2305.24, .25, .251 & .252 documented in this encounterUnCos[facility] Work Phone: 1(362) 170-160807-14-2024 Emergency department Note* Sneha Gant RN - 04/30/2024 12:28 PM EDT Pt c/o right neck and shoulder pain/stiffness for the past 5 days. Pt states it hurts to turn her head. Pt states she was evaluated in ED and given pain meds. Pt is currently receiving chemo for breast CA. documented in this encounterUnCoshocton [facility] Work Phone: 1([phone]) 507-303307-14-2024 Emergency department Triage note* Sneha Gonsales RN - 04/30/2024 12:28 PM EDT Pt c/o right neck and shoulder pain/stiffness for the past 5 days. Pt states it hurts to turn her head. Pt states she was evaluated in ED and given pain meds. Pt is currently receiving chemo for breast CA. [facility] Work Phone: [phone]) [phone] History of Present illness Narrative* WILEY Carlson - 04/19/2024 9:30 AM EDT Images from the original note were not included. Breast Medical Oncology Clinic Location: [facility] BREAST CANCER DIAGNOSIS Malignant neoplasm of lower-outer quadrant of right breast of female, estrogen receptor negative (Multi), Clinical: Stage IIB (cT2(m), cN1(f), cM0, G3, ER-, DC-, HER2+) CURRENT THERAPY Neoadjuvant gemcitabine/carboplatin days 1 and 8 q21 days initiated 03/30/24 HISTORY OF PRESENT ILLNESS Zora Nixon is a 69 y.o. woman with incidentally found breast cancer after chest CT for heart surgery work up (she has aortic valve disease) found breast mass and axillary adenopathy in the right breast. Biopsy of both revealed HER2+, ER/DC- breast cancer. Other outside staging workup raised [...] Was initiated on neoadjuvant ge m/carbo 03/30/24. Zora presents today for breast cancer treatment follow [...] Aortic valve insufficiency, Arrhythmia, Ascending aorta dilation ([facility]), Breast cancer ([facility]) (11/2023), Cerebral vascular accident ([facility]) (2009), CHF (congestive heart failure) ([facility]), Congestive heart failure ([facility]) (12/01/2023),Coronary artery disease, Depression, Dizziness, GERD (gastroesophageal reflux disease), HOCM (hypertrophic obstructive cardiomyopathy) ([facility]) (12/01/2023), Hyperlipidemia, Hypertension, Irregular heart beat, Lumbosacral [...] Diagnostic Results TRANSTHORACIC ECHOCARDIOGRAM REPORT Patient Name: ZORA Lewis Physician: [id number] Vikram Schofield MD Study Date: 02/11/2024 Ordering Provider: [id number] MARCELO DAVEY MRN/PID: [id number] Fellow: Nurse: Date of /Age: 401/26/1955 / 69 years [employer] Supervisor: Miri Cox RDCS Gender: F Additional Staff: Height: 152.40 cm Admit Date: Weight: 69.40 kg Admission Status: Outpatient BSA / BMI: 1.67 m2 / 29.88 kg/m2 Department Location: [place] [facility] Blood Pressure: 150 /78 mmHg Study Type: TRANSTHORACIC ECHO (TTE) LIMITED Diagnosis/ICD: Encounter for monitoring cardiotoxic drug therapy-Z51.81 Indication: cardiac eval for cardiotoxic drug thereapy. CPT Code: Echo Limited-77140; Myocardial Strain Imaging-57130; Doppler Limited-44300 Study Detail: The following Echo studies were [...] as stated. This study was interpreted at [facility], [place], [place]. MACRO: None Signed by: Luis Manuel Parrish 02/23/2024 3:29 PM Dictation workstation: [id number] LABORATORY/PATHOLOGY DATA Lab on 04/19/2024 Component Date [...] 60.5 Final Outside pathology report reviewed. IMPRESSION/PLAN [id number] HER2+/ER-/DC- right sided breast cancer. Is not a [...] and coordination of care Neli Cox MSN, CREDIT CONTROL MANAGER, ADULT FAMILY HOME PROGRAM MANAGER-C [facility] Division of Medical Oncology- Breast Collaborating Physician Dr. Marcelo Davey Team Nurse Partners Snehal Holloway, [place] [address] Available via Secure Chat Confidential Peer Review Document- General Medical Practitioner Privilege Privileged Pursuant to [place] Revised Code Section 2305.24, .25, .251 & .[address] [facility] Work Phone: 1(195) 300-448607-03-2024 Instructions* Patient Instructions* WILEY Carlson - 04/19/2024 9:30 AM EDT Cycle 2 day 1 today on hold for low white count- will plan to get back on schedule on 04/26 and or day 8 at [place]. Planned C3 on 05/17 and day 8 05/24 at [place]. Virtual please on 05/17. Planned C4 on 06/07 at [place] with in person visit prior, day 8 at [place] on 06/14 Breast surgery follow up with Dr Mohr on 05/16/24 Please call [phone] with any questions or concerns prior to your next office visit. documented in this [facility] Work Phone: [phone]) 959-873906-12-2024 History of Present illness Narrative* Marcelo Davey MD - 03/29/2024 10:40 AM EDT Images from the original note were not included. Breast Medical Oncology Clinic Location: [facility] BREAST CANCER DIAGNOSIS Malignant neoplasm of lower-outer quadrant of right breast of female, estrogen receptor negative (Multi), Clinical: Stage IIB (cT2(m), cN1(f), cM0, G3, ER-, DC-, HER2+) CURRENT THERAPY C1 D minus 1 gemcitabine/carboplatin days 1 and 8 q21 days HISTORY OF PRESENT ILLNESS Zora Nixon is a 69 y.o. woman with incidentally found breast cancer after chest CT for heart surgery work up (she has aortic valve disease) found breast mass and axillary adenopathy in the right breast. Biopsy of both revealed HER2+, ER/DC- breast cancer. Other outside staging workup raised [...] Aortic valve insufficiency, Arrhythmia, Ascending aorta dilation ([facility]), Breast cancer ([facility]) (11/2023), Cerebral vascular accident ([facility]) (2009), CHF (congestive heart failure) ([facility]), Congestive heart failure ([facility]) (12/01/2023),Coronary artery disease, Depression, Dizziness, GERD (gastroesophageal reflux disease), HOCM (hypertrophic obstructive cardiomyopathy) ([facility]) (12/01/2023), Hyperlipidemia, Hypertension, Irregular heart beat, Lumbosacral [...] Diagnostic Results TRANSTHORACIC ECHOCARDIOGRAM REPORT Patient Name: ZORA Lewis Physician: [id number] Vikram Schofield MD Study Date: 02/11/2024 Ordering Provider: [id number] MARCELO DAVEY MRN/PID: [id number] Fellow: Nurse: Date of /Age: 401/26/1955 / 69 years [employer] Supervisor: Miri Cox RDCS Gender: F Additional Staff: Height: 152.40 cm Admit Date: Weight: 69.40 kg Admission Status: Outpatient BSA / BMI: 1.67 m2 / 29.88 kg/m2 Department Location: [place] [facility] Blood Pressure: 150 /78 mmHg Study Type: TRANSTHORACIC ECHO (TTE) LIMITED Diagnosis/ICD: Encounter for monitoring cardiotoxic drug therapy-Z51.81 Indication: cardiac eval for cardiotoxic drug thereapy. CPT Code: Echo Limited-40187; Myocardial Strain Imaging-16423; Doppler Limited-80139 Study Detail: The following Echo studies were [...] as stated. This study was interpreted at [facility], [place], [place]. MACRO: None Signed by: Luis Manuel Parrish 02/23/2024 3:29 PM Dictation workstation: [id number] LABORATORY/PATHOLOGY DATA Lab on 03/29/2024 Component Date [...] Case Report 02/22/2024 Final Value:Surgical Pathology Case: [id number] Authorizing Provider: Thai Mohr MD Collected: 02/22/2024 0947 Ordering Location: [facility] Received: 02/22/2024 1527 Center Pathologist: Magda [...] Report 02/18/2024 Final Value:Surgical Pathology Report Case: [id number] Authorizing Provider: Peter Rai DO Collected: 02/18/2024 0834 Ordering Location: [facility] Received: 02/18/2024 0830 Center Pathologist: Magda Mariano [...] displayed here. Outside pathology report reviewed. IMPRESSION/PLAN [id number] HER2+/ER-/DC- right sided breast cancer. Since she isn't a candidate for standard HER2 therapy as per cardio-oncology we will give low dose carbo/gem. She's currently not a candidate for breast surgery given severe aortic stenosis and will need cardiac surgery before breast surgery or her2 therapy. Proceed with chemotherapy tomorrow at [place]. RTC in 3 wks to see Neli [...] of Breast Cancer Medical Oncology Research Program [facility] rn call center [facility] [address] [place] [address] [email or web address] documented in this encounterTr[facility]ull [facility] Work Phone: 1([phone]) [phone] Instructions* Patient Instructions* Marcelo Davey MD - 03/29/2024 10:40 AM EDT Start chemo tomorrow Follow-up in 3 wks with neli documented in this encounterTr[facility] Work Phone: [phone]) [phone] Hospital Discharge instructions* Discharge Instructions* MILDRED Gamboa - 03/14/2024 11:00 AM EDT Post procedure care reviewed with patient, ok to resume normal activity with no restrictions. Patient verbalized understanding and will follow up surgery as planned. Surgery not scheduled at this time per patient . documented in this encounterTr[facility]ull [facility] Work Phone: 1([phone]) 612-128505-22-2024 History of Present illness Narrative* Cayden Bae MD - 03/08/2024 1:00 PM EDT Images from the original note were not included. Subjective Zora Nixon is a 69 y.o. female Cancer Diagnosis: Breast Treatment: Plan for Cumulative Dose: Radiation: Risk Factors: Aortic valve insufficiency, arrythmia, CVA, CHF, HOCM, HTN, HLD, [place], CADs/p CABG/Stent, Pacer TIA Social Hx: Former Smoker Family Hx: Father heart disease Echo 02/11/2024 EF 45-50% Briefly patient is a 69-year-old female with a medical history of dual-chamber [employer] ICD (implanted 2010), generator replacement June [...] catheterization (unclear date) noted in her outside technician support association chart with documented all grafts down except [...] Dr. Lozano. Arrhythmia [place] Ascending aorta dilation ([facility]) s/p repair abdominal aortic aneurysm Breast cancer ([facility]) 11/2023 Right Breast- Have not seen the provider yet Cerebral vascular accident ([facility]) 2009 no deficits x2 CHF (congestive heart failure) ([facility]) Congestive heart failure ([facility]) 12/01/2023 diastolic LVEF 70% BY 02/2012 STRESS [...] sensitive troponin/BNP, complete echocardiogram -RTC 6 weeks Cayden Bae MD Advanced Heart Failure/Transplant Cardiology Cardio-Oncology [facility] documented in this [facility] Work Phone: 1(432) 289-737305-22-2024 Instructions* Patient Instructions* Katrin Rodriguez RN - 03/08/2024 1:00 PM EDT Repeat echocardiogram Labs Follow up in [address] [facility] Work Phone: 1(243) 143-863205-22-2024 History of Present illness Narrative* Marcelo Davey MD - 03/08/2024 11:20 AM EDT Images from the original note were not included. Breast Medical Oncology Clinic Location: [facility] BREAST CANCER DIAGNOSIS Malignant neoplasm of lower-outer quadrant of right breast of female, estrogen receptor negative (Multi), Clinical: Stage IIB (cT2(m), cN1(f), cM0, G3, ER-, DC-, HER2+) HISTORY OF PRESENT ILLNESS Zroa Nixon is a 69 y.o. woman with incidentally found breast cancer after chest CT for heart surgery work up (she has aortic valve disease) found breast mass and axillary adenopathy in the right breast. Biopsy of both revealed HER2+, ER/DC- breast cancer. Other outside staging workup raised [...] Aortic valve insufficiency, Arrhythmia, Ascending aorta dilation ([facility]), Breast cancer ([facility]) (11/2023), Cerebral vascular accident ([facility]) (2009), CHF (congestive heart failure) ([facility]), Congestive heart failure ([facility]) (12/01/2023),Coronary artery disease, Depression, Dizziness, GERD (gastroesophageal reflux disease), HOCM (hypertrophic obstructive cardiomyopathy) ([facility]) (12/01/2023), Hyperlipidemia, Hypertension, Irregular heart beat, Lumbosacral [...] Diagnostic Results TRANSTHORACIC ECHOCARDIOGRAM REPORT Patient Name: ZORA Lewis Physician: [id number] Vikram Schofield MD Study Date: 02/11/2024 Ordering Provider: [id number] MARCELO DAVEY MRN/PID: [id number] Fellow: Nurse: Date of /Age: 401/26/1955 / 69 years [employer] Supervisor: Miri Cox [facility] Gender: F Additional Staff: Height: 152.40 cm Admit Date: Weight: 69.40 kg Admission Status: Outpatient BSA / BMI: 1.67 m2 / 29.88 kg/m2 Department Location: [place] [facility] Blood Pressure: 150 /78 mmHg Study Type: TRANSTHORACIC ECHO (TTE) LIMITED Diagnosis/ICD: Encounter for monitoring cardiotoxic drug therapy-Z51.81 Indication: cardiac eval for cardiotoxic drug thereapy. CPT Code: Echo Limited-55043; Myocardial Strain Imaging-40017; Doppler Limited-12651 Study Detail: The following Echo studies were [...] as stated. This study was interpreted at [facility], [place], [place]. MACRO: None Signed by: Luis Manuel Parrish 02/23/2024 3:29 PM Dictation workstation: [id number] LABORATORY/PATHOLOGY DATA Lab on 03/08/2024 Component Date Value Ref Range Status BNP 03/08/2024 100 (H) 0 - 99 pg/mL Final Troponin I, High Sensitivity 03/08/2024 45 (H) 0 - 34 ng/L Final Hospital Outpatient Visit on 02/22/2024 Component Date Value Ref Range Status Case Report 02/22/2024 Final Value:Surgical Pathology Case: [id number] Authorizing Provider: Thai Mohr MD Collected: 02/22/2024 0947 Ordering Location: [facility] Received: 02/22/2024 1527 Center Pathologist: Magad Mariano MD Specimen: BREAST CORE BIOPSY RIGHT, [...] Report 02/18/2024 Final Value:Surgical Pathology Report Case: [id number] Authorizing Provider: Peter Rai DO Collected: 02/18/2024 0834 Ordering Location: [facility] Received: 02/18/2024 0830 Center Pathologist: Magda Mariano [...] U/L Final Outside pathology report reviewed. IMPRESSION/PLAN [id number] HER2+/ER-/DC- right sided breast cancer. Will await cardiology [...] of Breast Cancer Medical Oncology Research Program [facility] rn call center [address], [address] [place] [address] [email or web address] documented in this [facility] Work Phone: 1(861) 160-292105-22-2024 Instructions* Patient Instructions* Marcelo Davey MD - 03/08/2024 11:20 AM EDT We will schedule chemo at [place] once we get clearance from the technician support association documented in [facility] Work Phone: 1(241) 938-689605-16-2024 Hospital Discharge instructions* Discharge Instructions* WILEY Webster, JOSE - 03/02/2024 10:48 AM EDT What is [...] port. How to Reach your Doctor: Call [phone] with problems or questions This info is a general resource. It is not meant to replace your health care provider s advice. Ask your doctor or health care team any questions. Always follow their instructions. documented in this [facility] Work Phone: 1(122) 499-770605-16-2024 History and physical note* WILEY Webster DNP - 03/02/2024 10:00 AM EDT History Of Present Illness Zora Nixon is a 69 y.o. female presenting with hx of right breast CA, here for mediport placement. PMH includes aortic valve replacement, CAD s/p CABG, ascending aorta dilation, HLD, GERD, CVA Past Medical History She has a past medical history of Anxiety, Aortic valve insufficiency, Arrhythmia, Ascending aorta dilation ([facility]), Breast cancer (Multi) (11/2023), Cerebral vascular accident (Multi) (2009), CHF (congestive heart failure) ([facility]), Congestive heart failure (Multi) (12/01/2023), Coronary artery disease, Depression, Dizziness, GERD (gastroesophageal reflux disease), HOCM (hypertrophic obstructive cardiomyopathy) ([facility]) (12/01/2023), Hyperlipidemia, Hypertension, Irregular heart beat, Lumbosacral [...] LDL, VLDL, TRIG, NHDL in the last 20688 hours. Cardiac No lab exists for component: CK, CKMBP Hemoglobin A1C: No results for input(s): HGBA1C in the last 15835 hours. TSH/ Free T4: No results for input(s): TSH, FREET4 in the last 17648 hours. Iron: No results for input(s): FERRITIN, TIBC, IRONSAT, BNP in the last 17968 hours. Coag: ABO: No results found for: ABO Past Cardiology Tests (Last 3 Years): EKG: No results for input(s): ATRRATE, VENTRATE, PRINT, QRSDUR, QTCFRED, QTCCALCB in the last 62566 hours.No results found for this or any [...] care of this patient. WILEY Webster DNP [facility] Work Phone: 1(752) 427-521005-16-2024 History and physical note* WILEY Webster DNP - 03/02/2024 10:00 AM EDT History Of Present Illness Zora Nixon is a 69 y.o. female presenting with hx of right breast CA, here for mediport placement. PMH includes aortic valve replacement, CAD s/p CABG, ascending aorta dilation, HLD, GERD, CVA Past Medical History She has a past medical history of Anxiety, Aortic valve insufficiency, Arrhythmia, Ascending aorta dilation ([facility]), Breast cancer ([facility]) (11/2023), Cerebral vascular accident ([facility]) (2009), CHF (congestive heart failure) ([facility]), Congestive heart failure (Multi) (12/01/2023), Coronary artery disease, Depression, Dizziness, GERD (gastroesophageal reflux disease), HOCM (hypertrophic obstructive cardiomyopathy) ([facility]) (12/01/2023), Hyperlipidemia, Hypertension, Irregular heart beat, Lumbosacral [...] LDL, VLDL, TRIG, NHDL in the last 25780 hours. Cardiac No lab exists for component: CK, CKMBP Hemoglobin A1C: No results for input(s): HGBA1C in the last 20537 hours. TSH/ Free T4: No results for input(s): TSH, FREET4 in the last 13626 hours. Iron: No results for input(s): FERRITIN, TIBC, IRONSAT, BNP in the last 33910 hours. Coag: ABO: No results found for: ABO Past Cardiology Tests (Last 3 Years): EKG: No results for input(s): ATRRATE, VENTRATE, PRINT, QRSDUR, QTCFRED, QTCCALCB in the last 72123 hours.No results found for this or any [...] patient. WILEY Webster DNP documented in this [facility] Work Phone: 1(548) 832-988805-16-2024 Miscellaneous Notes* Post-Procedure Note - Gokul Navarrete MD - 03/02/2024 10:00 AM EDT Interventional Radiology Brief Postprocedure Note Attending: Gokul Navarrete MD Maintenance Shop Welder: none Diagnosis: need for IV chemo Description [...] is in stable condition. documented in this [facility] Work Phone: 1(832) 575-927705-16-2024 Note* Post-Procedure Note - Gokul Navarrete MD - 03/02/2024 10:00 AM EDT Interventional Radiology Brief Postprocedure Note Attending: Gokul Navarrete MD Maintenance Shop Welder: none Diagnosis: need for IV chemo Description [...] or complication and is in stable condition. [facility] Work Phone: 1(422) 785-192905-07-2024 Hospital Discharge instructions* Discharge Instructions* Sapphire Diaz [...] of sister at [address] [facility] Work Phone: 1(550) 628-611604-24-2024 History of Present illness Narrative* Marcelo Davey MD - 02/09/2024 12:00 PM EDT Images from the original note were not included. Breast Medical Oncology Clinic Location: [facility] BREAST CANCER DIAGNOSIS Malignant neoplasm of lower-outer quadrant of right breast of female, estrogen receptor negative (Multi), Clinical: Stage IIB (cT2(m), cN1(f), cM0, G3, ER-, DC-, HER2+) HISTORY OF PRESENT ILLNESS Zora Nixon is a 69 y.o. woman with incidentally found breast cancer after chest CT for heart surgery work up (she has aortic valve disease) found breast mass and axillary adenopathy in the right breast. Biopsy of both revealed HER2+, ER/DC- breast cancer. Other outside staging workup raised [...] Aortic valve insufficiency, Arrhythmia, Ascending aorta dilation ([facility]), Breast cancer ([facility]) (11/2023), Cerebral vascular accident ([facility]) (2009), CHF (congestive heart failure) ([facility]), Congestive heart failure ([facility]) (12/01/2023),Coronary artery disease, Depression, Dizziness, GERD (gastroesophageal reflux disease), HOCM (hypertrophic obstructive cardiomyopathy) ([facility]) (12/01/2023), Hyperlipidemia, Hypertension, Irregular heart beat, Lumbosacral [...] 2:47 pm; 02/09/2024 3:29 pm ACCESSION NUMBER(S): [id number]; [id number] ORDERING CLINICIAN: THAI MOHR INDICATION: Recent diagnosis of multifocal invasive ductal [...] with elastography was performed by a registered life science technical officer in the bilateral breast and right axilla. [...] and her referring breast surgical oncologist, Dr. Mohr at the time of the exam. A pre-procedure form was filled out. BI-RADS CATEGORY: BI-RADS CATEGORY: 5 Highly Suggestive of Malignancy. Recommendation: Surgical Consultation and Biopsy. Recommended Date: Immediate. Laterality: Right. For any future breast imaging appointments, please call [phone] ([phone]). MACRO: None Signed by: Eugenia Bob 02/09/2024 10:18 PM Dictation workstation: [id number] No images are attached to the encounter. [...] Appearance, Urine 12/31/2023 Clear Clear Final Specific [place], Urine 12/31/2023 1.014 1.005 - 1.035 Final [...] add-ons. Final Outside pathology report reviewed. IMPRESSION/PLAN [id number] HER2+/ER-/DC- right sided breast cancer. We discussed my [...] of Breast Cancer Medical Oncology Research Program [facility] rn call center [address], [address] [place] [address] [email or web address] documented in this encounterUnCosho[facility] Work Phone: 1(142) 861-989604-24-2024 Instructions* Patient Instructions* Marcelo Davey MD - 02/09/2024 12:00 PM EDT Bone scan, echocardiogram, port placement, bloodwork I will call you with results and then plan the chemotherapy later documented in [facility] Work Phone: 1(767) 104-590504-24-2024 History of Present illness Narrative* Thai Mohr MD - 02/09/2024 11:30 AM EDT Subjective Diagnosis date: 11/25/2023 right breast invasive ductal carcinoma multifocal, grade 3, ER 0%, DC 0%, HER2 3+, cT2(m)N1, stage IIB or IV Cancer Staging Malignant neoplasm of lower-outer quadrant of right breast of female, estrogen receptor negative (Multi) Staging form: Breast, AJCC 8th Edition - Clinical stage from 11/25/2023: Stage IIB - Signed by Thai Mohr MD on 02/10/2024 cT2 cN1 cM0 Kory grade: G3 ER Status: Negative DC Status: Negative HER2 Status: Positive Zora Nixon is a 69 y.o. female who was self-referred for evaluation of a right breast cancer. She presents to the [facility] for treatment recommendations. This was [...] with elastography was performed by a registered life science technical officer in the bilateral breast and right axilla. [...] breast surgery after completion of neoadjuvant chemotherapy. Thai Mohr MD documented in this [facility] Work Phone: 1(612) 462-587603-08-2024 Note* Exam Date Time Procedure Performing Provider Status 12/24/23 1:40 PM VL Vein Mapping US/D oppler Both Legs-CV Auth (Verified) [facility] 03-08-2024 Note* Exam Date Time Procedure Performing Provider Status 12/24/23 1:33 PM VL Radial Mapping Study Au th (Verified) [facility] 03-08-2024 Note* Exam Date Time Procedure Performing Provider Status 12/24/23 12:28 PM VL Arterial Dopplers Both Arms/PVR - CV Auth (Verified) [facility] 02-15-2024 History of Present illness Narrative* Patricia Emerson RN - 12/02/2023 2:00 PM EST Referral from Dr. Desai. Zora comes to discuss treatment recommendations for perivalvular aorticvalve insufficiency, cad status post cabg, dilated ascending aorta s/p repair abdominal aortic aneurysm. Past history of a fib, status post AICD, hld, htn, carotid aso past Cva. Experiencing dyspnea.Patricia Emerson RN documented in this [facility] Work Phone: 1(203) 643-608201-18-2024 Note ORIGINAL EXAMINATION: CTA OF THE CHEST11/04/2023 [...] Sign Date: 11/04/2023 5:21:23 PM Ordering Provider: [place] 08261-01-2024 Evaluation + Plan note Future Appointments Appointment [...] Provider:JUD MALONEY Location:[facility] Appointment Type:CV OV [facility] 09-18-2023 Discharge summary Date of Service 07/05/2023 [...] in the Device Clinic. Where: [address] [facility] [address] [facility] [place] [address]- [phone] Follow Up with JUAN F MARCOS MD When 07/23/2023 10:30 AM EDT Why: This is your incision check in the Device Clinic. Where: [address] [facility] [address] [facility] [place] [address]- [phone] Follow Up Appointments No qualifying data available. Follow Up Labs/Studies Discharge Labs No Follow-up Labs Discharge Studies No Follow-up Studies Discharge Diet No qualifying data available. Discharge Activity No qualifying data available. Condition on Discharge Good Discharge Disposition Home Digitally Signed by JUAN F MARCOS MD on 07/05/2023 04:32 PM [id number] Discharge instructions Patient Education 07/05/2023 14:10:09 [...] until you are awake and alert. Take isxk-jfw-nohipoo and prescription medicines only as told by [...] 07/25/2014 Document Revised: 09/16/2018 Document Reviewed: 01/23/2017 Avancert Patient Education 2020 [employer]. 07/05/2023 14:10:05 3- Pacemaker/ICD generator replacement (07/2018) [...] Document Reviewed: 10/05/2014 ExitCare Patient Information 2015 [employer]. This information is not intended to replace advicegiven to you by your health care provider. Make sure you discuss any questions you have with your health care provider. Follow Up Care 06/14/2023 14:53:25 With:JUAN F MARCOS MD Address: [address] [facility] [address] [place] [address]- [phone] When:07/23/2023 10:30:00 Comments:This is your incision check in the Device Clinic. With:JUAN F MARCOS MD Address: [address] [facility] [address] [place] [address]- [phone] When:09/22/2023 11:30:00 Comments:This is your hospital follow [...] Sign Date: 07/05/2023 3:05:45 PM Ordering Provider: [facility]09-18-2023 Summary of episode note Discharge Instructions Thank you for allowing [facility] to assist you with your healthcare needs. The following is importantdischarge information regarding your hospital visit. Your Care Team DANIELA FALLON MD What to do next Scheduled Follow-Up Appointments Appointment Type When With Where Contact InformationCV Incision Check 07/23/2023 10:30 AM EDT [facility] CV OV 09/06/2023 08:45 AM EST JUD MALONEY [facility] CV OV 09/06/2023 09:00 AM EST JOCELINE TINEO PA-C [facility] CV Office Procedure ICD 09/22/2023 11:30 AM EST [facility] Follow Up Appointments Follow Up with JUAN F MARCOS MD When 09/22/2023 11:30 AM EST Why: This is your hospital follow up in the Device Clinic. Where: [address] [facility] [address] [place] [address]- [phone] Follow Up with JUAN F MARCOS MD When 07/23/2023 10:30 AM EDT Why: This is your incision check in the Device Clinic. Where: [address] [facility] [address] [facility] [place] [address]- [phone] Allergies NKA Medications Please ask your primary doctor or pharmacist before taking any other medication not listed, including over the counter drugs, herbal medications, vitamins and or supplements as they may interact [facility] home medications. What How Much When Instructions Last Dose New amoxicillin-clavulanate (Augmentin 500 mg-125 mg oraltablet) 1 tab(s) by mouth Every 12 hours Duration: 10 Days Pickup at [facility] Unchanged amLODIPine (Norvasc 5 mg oral [...] by mouth Daily at bedtime Pharmacy Information [facility]: [address] [place], [place] [id number] [phone] Please take this list to your next [...] may report side effects to FDA at [phone]. What other drugs will affect amoxicillin and clavulanate potassium? Tell your doctor about all your other medicines, especially: allopurinol; probenecid; or a blood thinner--warfarin, Coumadin, Jantoven. This list is not complete. Other drugs may affect amoxicillin and clavulanate potassium, including prescription and ussu-dip-cxtrdjs medicines, vitamins, and herbal products. Not all [...] to ensure that the information provided by [employer]. ('[employer]') is accurate, up-to-date, and complete, but no guarantee is made to that effect. Drug information contained herein may be time sensitive. UpDown information has been compiled for use by healthcare practitioners and consumers in the [place] and therefore UpDown does not warrant that uses outside of the [place] are appropriate, unless specifically indicated otherwise. [employer] drug information does not endorse drugs, diagnose patients or recommend therapy. [employer] drug information isan informational resource designed to [...] effective or appropriate for any given patient. [employer] does not assume any responsibility for any aspect of healthcare administered with the aid of information UpDown provides. The information contained herein is not intended to cover all possible uses, directions, precautions, warnings, drug interactions, allergic reactions, or adverse effects. If you have questions about the drugs you are taking, check with your doctor, nurse or pharmacist. Copyright 0251-9329 [employer]. Version: 14.01. Revision Date: 07/24/2022. Education Materials Moderate Conscious [...] until you are awake and alert. Take zjsw-jtk-uoyvfhe and prescription medicines only as told by [...] 07/25/2014 Document Revised: 09/16/2018 Document Reviewed: 01/23/2017 Avancert Patient Education 2020 [employer]. PACEMAKER/ICD GENERATOR REPLACEMENT Discharge Instructions WOUND CARE [...] Document Reviewed: 10/05/2014 ExitCare Patient Information 2015 [employer] [facility]. This information is not intended to replace advicegiven to you by your health care provider. Make sure you discuss any questions you have with your health care provider. Additional Information VACCINATE! IT SAVES LIVES! Members of the community who have not yet received the COVID-19 vaccine and would like to receive it can visit one of [facility] vaccine clinics. There are many vaccine clinic locations within the [facility]. For locations and available times, please visit [email or web address] It is important to note that some COVID mobile vaccine clinics are held outdoors and may be canceled in rainy or stormy conditions. To learn more about pediatric vaccinations (ages 5-11), we invite you to visit the [facility] webpage. [email or web address]://www.[email or web address]/pages/[email or web address]-Zuvhx-Fmpomzkqcqa-Nrffiexxsd-Qdwbr-Cuw stions.htmlTo learn more about the COVID-19 vaccine, we invite you to visit the CDC website for a list of frequently asked questions.https://www.cdc.gov/coronavirus/2019-ncov/vaccines/faq.html [facility] Patient Portal Access Instructions: Stay connected with your healthcare team and access your personal medical information anytime with the [facility] Patient Portal. Please follow the directions below to create your [facility] account: 1.Access the email account you provided upon registration to the hospital/physician office.2.Look for an invitation email from [facility].3.Open the email and access the invitation link: AcceptInvitation to [facility].4.Fill in the required monson to create your account. To access your account, visit [email or web address]. Click the blue button labeled Access Patient Portal and then log in with the username and password that you created in the steps above. You will be able to view your test results, lab results, a summary of your visits, upcoming appointments and more. There is also a convenient messaging option where you can send secure messages to your p Men's Market[employer]. In addition, you will have the ability to download any documents or summaries to your computer and/or send the information securely to a physician. Remember that your healthcare information is confidential, so carefully consider who you will allowto register on the [facility] Patient Portal for access to your information. You can also access the [facility] Patient Portal on the [facility] [employer] Interactivewhere emre. Simply click on Patient Portal and then log into your account. If you would like to receive a full copy of your medical records, please contact the [facility] Medical Records Department by calling [phone], Wednesday through Wednesday between 8 a.m. and [...] Call your local pharmacy or go to http://bit.ly/6P6Wv1z to find one close to you.3.Make use of household items: Use cat litter or old coffee grounds to dispose medications if other options arenot available. Mix your drugs with these household products, seal them in an airtight container andthrow it into the garbage. Call [facility]: [phone] to be sure your drugs can be [...] been reviewed and explained to me and I,SMITLEY, ZORA A understand my current condition and have read and understand these discharge instructions. I have received a written copy of the plan/instructions. If I have questions, I am aware that I should contact my doctor. 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 Signature: Date/Time: Relationship to Patient: Witness Name/Signature: Date/Time: [id number] Note* Exam Date Time Procedure Performing Provider Status 07/05/23 12:00 PM ICD Generator Change Aut h (Verified) [facility] 09-18-2023 Anesthesiology Consult note Patient: ZORA NIXON Age: 68 years Sex: Female : 1955 Associated Diagnoses: None Author: VANESSA JUNG MD Preoperative Information Greater than 8 hours [...] list: 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.) / SNOMED CT 317840343 / Confirmed AFIB / SNOMED CT 27360792 / Confirmed AICD (AUTOMATIC CARDIOVERTER/DEFIBRILLATOR) PRESENT / SNOMED CT 1199633112 / Confirmed BILATERAL CAROTID ARTERY STENOSIS / SNOMED CT 983582885874372 / Confirmed ARRHYTHMIA / SNOMED CT 2354496156 / Confirmed OTHER CHEST PAIN / SNOMED CT 69161722 / Confirmed CONGESTIVE HEART FAILURE / SNOMED CT 79284165 / Confirmed CAD IN TUNUNAK ARTERY / SNOMED CT 5075716657 / Confirmed HYPERTENSION, UNSPECIFIED / SNOMED CT 41187237 / Confirmed GERD (GASTROESOPHAGEAL REFLUX DISEASE) / SNOMED CT 737196297 / Confirmed S/P aortic valve replacement / SNOMED CT 4938753198 / Confirmed MIXED HYPERLIPIDEMIA / SNOMED CT 954217316 / Confirmed VT / SNOMED CT 053858501 / Confirmed TIA / SNOMED CT 240517769 / Confirmed Canceled: AORTIC STENOSIS / SNOMED CT 578706087, Active Problems (17) AFIB AICD (AUTOMATIC CARDIOVERTER/DEFIBRILLATOR) PRESENT ARRHYTHMIA BILATERAL CAROTID ARTERY STENOSIS CAD IN TUNUNAK ARTERY cardiac catheterization CONGESTIVE HEART FAILURE CVA [...] Procedure history: Stress testing using pharmacologic-induced stress ([id number]) on 10/22/2022 at 67 Years. Echocardiogram ([id number]) on 10/01/2022 at 67 Years. Comments: 10/24/2022 [...] noted. Consider appropriate differential diagnosis. Cardiac catheterisation ([id number]) in 2011 at 57 Years. Comments: 06/07/2020 8:57 Lisa Ward MA (ABR-OE) 6-13-11; 09-23-10 ptca/stent to follow; 10 Implantable defibrillator ([id number]) in 2010 at 56 Years. Comments: 06/07/2020 [...] SYSTEM IMPLANTED: The pulse generator is a Clear[employer]entum Teligen, model E110, serial #[id number]. The RA lead is a Guidant, model 4470, serial #[id number]. The RV lead is a Guidant, model 0184, serial #[id number]. PROCEDURES PERFORMED: Dual chamber ICD implantation. PTCA - Percutaneous transluminal coronary angioplasty ([id number]) on 09/23/2010 at 55 Years. Comments: 06/07/2020 8:54 Lisa Ward MA (ABR-OE) PERCUTANEOUS TRANSLUMINAL CORONARY ANGIOPLASTY AND STENT OF THE DISTAL RIGHT CORONARY ARTERY Balloons/Stents: 2.0 and 3.0 Cowlitz balloon catheter; two 2.75 Promus stents one [...] OF THE RIGHT CORONARY ARTERY Catheters: 6 Ecuadorean JR4, 3 DRC, and AR1 guide catheters [...] delivery of balloons and stents. Balloons: 2.5 Cowlitz balloon catheter; 2.75 NC Quantum balloon catheter and 2.5 X 15 mm length Promus stent CABG (Coronary artery bypass grafting) planned ([id number]) in 2004 at 50 Years. Comments: 06/07/2020 [...] procedures weredone during the same hospitalization at [facility] in 2004. The patient had intraoperative ventricular fibrillation, postoperative congestive heart failure with LVEF of 15%, requiring intra-aortic balloon pump. Thoracic aortic aneurysm without rupture ([id number]) in 2005 at 50 Years. Comments: 06/07/2020 8:57 Lisa Ward MA (ABR-OE) A descending thoracic aortic aneurysm repair was also performed. Tonsillectomy ([id number]). Hysterectomy ([id number]). AVR - Aortic valve replacement ([id number]). Comments: 06/07/2020 8:55 Lisa Ward MA (ABR-OE) aortic valve replacement using a [...] INR 1.0(JUL 05) . Assessment and Plan [place] [employer] (ASA) physical status classification: [...] Within 24 Hrs. Digitally Signed by VANESSA JUNG MD on 07/05/2023 09:55 AM [id number]* Exam Date Time Procedure Performing Provider Status 05/27/23 11:06 AM Echocardiogram, Adult (AOH) Auth (Verified) [facility] 2023 NoteHNO ID: [id number] Author: RT Irish(R) Service: ? Author Type: Desktop Engineer Type: Progress Notes Filed: 11/12/2022 12:41 PM Note Text: Radiology Service Progress Note PATIENT NAME: Zora Nixon DATE OF SERVICE: November 12, 2022 [...] PERIPHERAL IV DATA: Not applicable SIGNED BY: Dilma Ferguson RT(R) November 12, 2022 12:24 [facility]2023 NoteHNO ID: [id number] Author: Austin Hall APRN.FLOOR LAYER HELPER Service: ? Author Type: Nurse Practitioner Type: Progress Notes Filed: 11/12/2022 5:47 PM Note Text: Subjective Zora Duane Nixon is a 67 year old female [...] SURGICAL HISTORY OF 03-31-11 ICD placement at [facility] PAST SURGICAL HISTORY OF 03-30-11 Heart cath at [place] PERC TRANSL COR ANGIO 03-14-10,04-07-10,09-23-10 Percutaneous Transluminal Coronary Angio-2 stents PLCMT LOCALZTN CLIP,PERC,DURING BREAST BX 07/25/07 LEFT RPLCMT PROST AORTIC VALVE OPEN XCP HOMOGRF/STENT 07-06-05 Aortic valve replacement SIMPLE INTRACRANIAL ARYSM CAROTID CIRCULATION 07-06-05 TONSILLECTOMY PRIMARY/SECONDARY Tonsillectomy TOTAL ABDOMINAL HYSTERECT W/WO RMVL TUBE OVARY 1993 Hysterectomy, JOSE (non-ca) ALLERGIES Patient has no [...] (3rd metacarpal base an (more content not included)...[facility]2023 Instructions* Patient Instructions* Austin Hall APRN.CNP - 11/12/2022 1:19 PM EST ASSESSMENT/PLAN: [...] radiographic abnormalities seen in the third digit. Pick Up: ANDRESSA Transcribe Date/Time: Nov 12 2022 1:10P [...] analgesia. - Discussed expected course of illness Austin Hall APRN.CNP [facility] of Present illness Narrative* Austin Hall APRN.CNP - 11/12/2022 12:07 PM EST Subjective Zora Nixon is a 67 year old female [...] SURGICAL HISTORY OF 03-31-11 ICD placement at [facility] PAST SURGICAL HISTORY OF 03-30-11 Heart cath at [place] PERC TRANSL COR ANGIO 03-14-10,04-07-10,09-23-10 Percutaneous Transluminal Coronary Angio-2 stents [facility] LOCALT CLIP,PERC,DURING BREAST BX 07/25/07 LEFT RPLCMT PROST AORTIC VALVE OPEN XCP HOMOGRF/STENT 07-06-05 Aortic valve replacement SIMPLE INTRACRANIAL ARYSM CAROTID CIRCULATION 07-06-05 TONSILLECTOMY PRIMARY/SECONDARY <AGE 11 1971 Tonsillectomy TOTAL ABDOMINAL HYSTERECT W/WO RMVL TUBE [...] radiographic abnormalities seen in the third digit. Pick Up: ANDRESSA Transcribe Date/Time: Nov 12 2022 1:10P [...] illness Ladonna Barron APRN- student TEACHING PROVIDER (Physician/PA/CREDIT CONTROL MANAGER) NOTE OF PERSONAL INVOLVEMENT IN CARE: I have personally seen and examined the patient and performed the medical decision-making components. I have reviewed the Advanced Practice Registered Nurse (CREDIT CONTROL MANAGER) Student's documentation and verified the findings in the note as written. Any additions or changes are noted in bold/italics. Signature: Austin Hall Date: 11/12/2022 Time: 5:46 PM Austin Hall APRN.FLOOR LAYER HELPER documented [facility] History of Past illness Narrative* Problem Noted Date Resolved Date Thoracic or lumbosacral neuritis or radiculitis, unspecified 07/09/2014 10/30/2016 Low back pain 06/28/2014 10/30/2016 Allergic rhinitis 03/17/2011 10/30/2016 Calcaneal spur 07/19/2009 10/30/2016 Plantar fasciitis 07/15/2009 10/30/2016 Sciatica 11/29/2007 12/30/2007 HYPERTENSION ACCELERATED, MALIGNANT 07/02/2007 07/22/2016 documented as of this encounter (statuses as of 11/12/2022) [facility] Future Appointments Appointment Date:10/23/2021 02:15:00 PM Scheduled Provider: Location:[facility] Appointment Type:CV Remote Procedure HM Appointment Date:03/05/2022 10:45:00 AM Scheduled Provider: Location:[facility] Appointment Type:CV OV [facility] Evaluation + Plan note Future Appointments Appointment [...] 09/21/22 Radiology* NM Myocardial Spect Rest/Stress 10/07/22 [facility] Evaluation + Plan note Future Appointments Appointment Date:11/02/2022 02:30:00 PM Scheduled Provider: Location:[facility] Appointment Type:CV OV Appointment Date:12/18/2022 09:15:00 AM Scheduled Provider: Location:[facility] Appointment Type:CV Remote Procedure HM Appointment Date:01/07/2023 11:00:00 AM Scheduled Provider: Location:[facility] Appointment Type:CV Procedure - AOH Echo Appointment Date:01/14/2023 11:00:00 AM Scheduled Provider: Location:[facility] Appointment Type:CV OV Future Scheduled Tests Laboratory* Lipid Profile 04/16/22 [facility] Evaluation + Plan note Future Appointments Appointment Date:06/14/2023 01:45:00 PM Scheduled Provider:JOCELINE TINEO PA-C Location:[facility] Appointment Type:CV OV Appointment Date:06/14/2023 02:30:00 PM Scheduled Provider:JUD MALONEY Location:[facility] Appointment Type:CV OV [facility] Evaluation + Plan note Future Appointments Appointment [...] Radiology* CT Angiography Chest w/ Contrast 11/01/23 [facility] Evaluation + Plan note Future Appointments Appointment [...] Radiology* CT Angiography Chest w/ Contrast 11/01/23 [facility] Evaluation + Plan note Future Appointments Appointment [...] Provider: Location:[facility] Appointment Type:CV Remote Procedure Future Scheduled Tests Radiology* CT Angiography Chest w/ Contrast 11/01/23 [facility] Evaluation note* Diagnosis Onset Date Resolution Status Borderline type 2 diabetes mellitus chronic Hyperlipemia chronic Hypertension chronic Insomnia chronic Flu vaccine need acute Borderline type 2 diabetes mellitus chronic CAD (coronary artery disease) chronic Hypertension [facility] Work Phone: Evaluation note* Diagnosis Onset Date Resolution Status Hyperlipemia chronic Hypertension chronic Insomnia chronic Borderline type 2 diabetes mellitus chronic Hyperlipemia chronic Hypertension chronic Insomnia [facility] Work Phone: Evaluation note* Diagnosis Onset Date Resolution Status Borderline type 2 diabetes mellitus chronic Hyperlipemia chronic Hypertension chronic Insomnia chronic Exposure to COVID-19 virus n oneactive Acute pharyngitis noneactive [facility] Work Phone: evaluation note* Diagnosis Pain of left middle finger- Primary [facility] encounter [facility] Diagnosis Onset Date Resolution Status Major depressive disorder, recurrent chronic Major depressive disorder, recurrent chronic Anxiety and depression chron ic Borderline type 2 diabetes mellitus chronic Diarrhea chronic Hypertension chronic Left knee pain [facility] Work Phone: Evaluation note* Diagnosis Onset Date Resolution Status Anxiety and depression chron ic Borderline type 2 diabetes mellitus chronic Hyperlipemia chronic Hypertension chronic Insomnia [facility] Work Phone: Evaluation note* Diagnosis Onset Date Resolution Status Anxiety and depression chron ic Borderline type 2 diabetes mellitus chronic Hyperlipemia chronic Hypertension chronic Insomnia chronic Aortic valve regurgitation due to aortic dilation acute Axillary lymphadenopathy acu te Breast mass, right acute Anxiety and depression chron ic Borderline type 2 diabetes mellitus chronic Hypertension [facility] Work Phone: Evaluation note* Diagnosis Aortic valve insufficiency, etiology of cardiac valve disease unspecified Ascending aorta dilation (CMS/HCC) Thoracic aneurysm without mention of rupture Coronary artery disease involving che[place]huevi coronary artery of che[place]huevi heart with other form of angina pectoris (CMS/HCC) 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 (CMS/HCC)- Primary documented in this encounter [facility] Work Phone: Evaluation note* Diagnosis Onset Date Resolution Status Aortic valve regurgitation due to aortic dilation acute Breast mass, right acute Anxiety and depression chron ic Borderline type 2 diabetes mellitus chronic Hypertension chronic Aortic valve regurgitation due to aortic dilation acute Breast mass, right acute CAD (coronary artery disease) chronic Invasive ductal carcinoma of breast acute Regional lymph node metastasis present acute [facility] Work Phone: Evaluation note* Diagnosis Invasive ductal carcinoma of breast, female, right (Multi) Malignant neoplasm of overlapping sites of right female breast (Multi) documented in this encounter [facility] Work Phone: Evaluation note* Diagnosis Abnormal mammogram Abnormal mammogram, unspecified documented in this encounter [facility] Work Phone: Evaluation note* Diagnosis Carcinoma of breast, estrogen receptor positive, stage 3, unspecified laterality (Multi) Cardiotoxicity (Multi) documented in this encounter [facility] Work Phone: Evaluation note* Diagnosis Carcinoma of breast, estrogen receptor positive, stage 3, unspecified laterality (Multi)- Primary Other specified disorders of breast Encounter for monitoring cardiotoxic drug therapy Cardiotoxicity (Multi) Aortic valve disorder Aortic valve disorders documented in this encounter [facility] Work Phone: Evaluation note* Diagnosis Malignant neoplasm of lower-outer quadrant of right breast of female, estrogen receptor negative (Multi)- Primary Abnormal mammogram Abnormal mammogram, unspecified documented in this encounter [facility] Work Phone: Evaluation note* Diagnosis Carcinoma of breast, estrogen receptor positive, stage 3, unspecified laterality (Multi) documented in this encounter [facility] Work Phone: Evaluation note* Diagnosis Carcinoma of breast, estrogen receptor positive, stage 3, unspecified laterality (Multi) documented in this encounter [facility] Work Phone: Evaluation note* Diagnosis Cardiomyopathy, ischemic- Primary Other specified forms of chronic ischemic heart disease Chronic diastolic heart failure (Multi) Chronic diastolic heart failure Aortic valve stenosis, etiology of cardiac valve disease unspecified Aneurysm of ascending aorta without rupture (CMS-HCC) Other cardiomyopathy (Multi) documented in this encounter [facility] Work Phone: Evaluation note* Diagnosis Aortic valve stenosis, etiology of cardiac valve disease unspecified- Primary Carcinoma of breast, estrogen receptor positive, stage 3, unspecified laterality (Multi) Other specified disorders of breast Encounter for monitoring cardiotoxic drug therapy Cardiotoxicity (Multi) documented in this encounter [facility] Work Phone: Evaluation note* Diagnosis Malignant neoplasm of lower-outer quadrant of right breast of female, estrogen receptor negative (Multi) documented in this encounter [facility] Work Phone: Evaluation note* Diagnosis Malignant neoplasm of lower-outer quadrant of right female breast (Multi) Estrogen receptor negative status (ER-) Estrogen receptor negative status [ER-] documented in this encounter [facility] Work Phone: Evaluation note* Diagnosis Cardiomyopathy, ischemic Other specified forms of chronic ischemic heart disease Chronic diastolic heart failure (Multi) Chronic diastolic heart failure Aortic valve stenosis, etiology of cardiac valve disease unspecified documented in this encounter [facility] Work Phone: Evaluation note* Diagnosis Carcinoma of breast, estrogen receptor positive, stage 3, unspecified laterality (Multi)- Primary Ascending aorta dilation (CMS-HCC) Thoracic aneurysm without mention of rupture Aortic valve disorder Aortic valve disorders Encounter for antineoplastic chemotherapy documented in this encounter [facility] Work Phone: Evaluation note* Diagnosis HYPERTENSION ACCELERATED, MALIGNANT- Primary Essential hypertension, malignant Need for prophylactic vaccination and inoculation against influenza Hyperlipidemia Other and unspecified hyperlipidemia Special screening for malignant neoplasms, colon AORTIC VALVE DISORDER Aortic valve disorders Malignant ventricular arrhythmias Cardiac dysrhythmia, unspecified Pain of left middle finger 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 Implantable cardioverter-defibrillator (ICD) in situ Nonrheumatic aortic valve disorder, unspecified S/P AVR (aortic valve replacement) Heart valve replaced by other means S/P CABG (coronary artery bypass graft) Postsurgical aortocoronary bypass status S/P AVR Acute postoperative pain Other acute postoperative pain Ascending aortic aneurysm, unspecified whether ruptured (CMS-HCC) documented in this encounter [facility] Work Phone: Evaluation note* Diagnosis Status post aortic valve replacement Heart valve replaced by other means documented in this encounter [facility] Work Phone: Evaluation note* Diagnosis Carcinoma of breast, estrogen receptor positive, stage 3, unspecified laterality (Multi) Malignant neoplasm of lower-outer quadrant of right breast of female, estrogen receptor negative documented in this encounter [facility] Work Phone: Evaluation note* Diagnosis Carcinoma of breast, estrogen receptor positive, stage 3, unspecified laterality (Multi) Malignant neoplasm of lower-outer quadrant of right breast of female, estrogen receptor negative documented in this encounter [facility] Work Phone: Evaluation note* Diagnosis Carcinoma of breast, estrogen receptor positive, stage 3, unspecified laterality (Multi)- Primary Malignant neoplasm of lower-outer quadrant of right breast of female, estrogen receptor negative Carcinoma of breast, estrogen receptor positive, stage 3, unspecified laterality (Multi) Malignant neoplasm of lower-outer quadrant of right breast of female, estrogen receptor negative documented in this encounter [facility] Work Phone: Evaluation note* Diagnosis Malignant neoplasm of lower-outer quadrant of right breast of female, estrogen receptor negative (Multi)- Primary Encounter for antineoplastic chemotherapy Carcinoma of breast, estrogen receptor positive, stage 3, unspecified laterality (Multi) Chemotherapy-induced neutropenia (CMS-HCC) Drug induced neutropenia Chemotherapy-induced nausea Chemotherapy-induced fatigue documented in this encounter [facility] Work Phone: Evaluation note* Diagnosis ICD (implantable cardioverter-defibrillator) in place documented in this encounter [facility] Work Phone: Evaluation note* Diagnosis Status post coronary artery bypass grafting- Primary Cardiomyopathy, ischemic Other specified forms of chronic ischemic heart disease Chronic diastolic heart failure Aortic valve stenosis, etiology of cardiac valve disease unspecified documented in this encounter [facility] Work Phone: Evaluation note* Diagnosis Neck pain- Primary Cervicalgia documented in this encounter [facility] Work Phone: Evaluation note* Diagnosis Aortic valve disorder- Primary Aortic valve disorders Neck pain Cervicalgia Carcinoma of breast, estrogen receptor positive, stage 3, unspecified laterality (Multi) Malignant neoplasm of lower-outer quadrant of right breast of female, estrogen receptor negative (Multi) documented in this encounter [facility] Work Phone: Evaluation note* Diagnosis Aneurysm of ascending aorta without rupture (CMS-HCC)- Primary Cardiomyopathy, ischemic Other specified forms of chronic ischemic heart disease Chronic diastolic heart failure (Multi) Chronic diastolic heart failure Aortic valve stenosis, etiology of cardiac valve disease unspecified Aneurysm of ascending aorta without rupture (CMS-HCC) documented in this encounter [facility] Work Phone: Evaluation note* Diagnosis Aneurysm of ascending aorta without rupture (CMS-HCC)- Primary Aortic valve disorder- Primary Aortic valve disorders Carcinoma of breast, estrogen receptor positive, stage 3, unspecified laterality (Multi) Malignant neoplasm of lower-outer quadrant of right breast of female, estrogen receptor negative (Multi) Encounter for antineoplastic chemotherapy Chemotherapy-induced fatigue Aneurysm of ascending aorta without rupture (CMS-HCC) documented in this encounter [facility] Work Phone: Evaluation note* Diagnosis Aneurysm of ascending aorta without rupture (CMS-HCC)- Primary Aortic valve stenosis, etiology of cardiac valve disease unspecified Aneurysm of ascending aorta without rupture (CMS-HCC) 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) Aneurysm of ascending aorta without rupture (CMS-HCC) documented in this encounter [facility] Work Phone: [phone] note* Diagnosis Carcinoma of breast, estrogen receptor positive, stage 3, unspecified laterality (Multi)- Primary Malignant neoplasm of lower-outer quadrant of right breast of female, estrogen receptor negative documented in this encounter [facility] Work Phone: [phone] note* Diagnosis Malignant neoplasm of areola of breast in female, estrogen receptor negative, unspecified laterality- Primary Status post administration of cardiotoxic chemotherapy Aortic valve stenosis, etiology of cardiac valve disease unspecified documented in this encounter [facility] Work Phone: [phone] note* Diagnosis Malignant neoplasm of areola of breast in female, estrogen receptor negative, unspecified laterality Malignant neoplasm of lower-outer quadrant of right breast of female, estrogen receptor negative Encounter for antineoplastic chemotherapy documented in this encounter [facility] Work Phone: [phone] note* Diagnosis Malignant neoplasm of areola of breast in female, estrogen receptor negative, unspecified laterality Malignant neoplasm of lower-outer quadrant of right breast of female, estrogen receptor negative Encounter for antineoplastic chemotherapy documented in this encounter [facility] Work Phone: [phone] note* Diagnosis Malignant neoplasm of areola of breast in female, estrogen receptor negative, unspecified laterality- Primary Malignant neoplasm of lower-outer quadrant of right breast of female, estrogen receptor negative Encounter for antineoplastic chemotherapy documented in this encounter [facility] Work Phone: [phone] note* Diagnosis Malignant neoplasm of areola of breast in female, estrogen receptor negative, unspecified laterality Status post administration of cardiotoxic chemotherapy Aortic valve stenosis, etiology of cardiac valve disease unspecified documented in this encounter [facility] Work Phone: [phone] note* Diagnosis Encounter for monitoring cardiotoxic drug therapy- Primary documented in this encounter [facility] Work Phone: [phone] note* Diagnosis Chemotherapy-induced nausea Malignant neoplasm of lower-outer quadrant of right breast of female, estrogen receptor negative Encounter for antineoplastic chemotherapy Chemotherapy-induced fatigue Malignant neoplasm of areola of breast in female, estrogen receptor negative, unspecified laterality documented in this encounter [facility] Work Phone: Evaluation note* Diagnosis Malignant neoplasm of lower-outer quadrant of right breast of female, estrogen receptor negative Encounter for antineoplastic chemotherapy Malignant neoplasm of areola of breast in female, estrogen receptor negative, unspecified laterality documented in this encounter [facility] Work Phone: Evaluation note* Diagnosis Malignant neoplasm of areola of breast in female, estrogen receptor negative, unspecified laterality- Primary Chemotherapy-induced nausea Malignant neoplasm of lower-outer quadrant of right breast of female, estrogen receptor negative Encounter for antineoplastic chemotherapy Chemotherapy-induced fatigue documented in this encounter [facility] Work Phone: Evaluation note* Diagnosis Malignant neoplasm of lower-outer quadrant of right breast of female, estrogen receptor negative Encounter for antineoplastic chemotherapy Chemotherapy-induced neutropenia Drug induced neutropenia Chemotherapy-induced nausea Chemotherapy-induced fatigue Malignant neoplasm of areola of breast in female, estrogen receptor negative, unspecified laterality (Multi) Poor balance Abnormality of gait and mobility Difficulty maintaining weight loss documented in this encounter [facility] Work Phone: Hospital course Narrative No data available for this section [facility] Discharge instructions No data available for this section [facility] Discharge instructions* Attachments The following attachments cannot be sent through Care Everywhere. * Neck Pain ED ([place]) [facility] Progress note No data available for this section [facility] Progress note Author Daniela Fallon [facility] Note Date/Time July 13, 2025 10:36am [facility] Internal Medicine [address] [place] [address] [place] [address] OFFICE VISIT Date of Service: 07/13/25 MR#: [id number] Acct: [id number] Name: ZORA NIXON Rep #: [id number] : 1955 Provider: Dr. 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 Daniela Fallon MD) Breast cancer Anorexia Neutropenic fever Gastroenteritis Breast cancer metastasized to axillary lymph node Nontraumatic psoas hematoma Hyperbilirubinemia Severe anemia Non-ST elevation [place] (NSTEMI) Rhabdomyolysis Thrombocytopenia CAD (coronary artery disease) [...] HPI Chief Complaint: Follow-up chronic conditions Details: ZORA NIXON, is a 70-year-old female presenting for [...] She had an appointment scheduled with a risk control product liability director at a [facility] but had to cancel due to illness. [...] as prescribed. She continues follow-up with her technician support association andoncology-technician support association as well. No chest pain, palpitations or [...] Performing Provider: Daniela Fallon MD Performing Location: [facility] Administered by: Diane Cardoso on 07/13/25 10:23 Dose Route Admin Location Dispensed Lot Number Expiration Date Pack age NDC NDC Entry Level Electrician 45 mcg IM Right Arm (SQ) 0.5 mL [id number] 02/12/26 [id number] 704 [id number] World Reviewer. VIS Given Date VIS Provided VIS Publication [...] vaccine given. This note was generated with [employer] software. It may contain incorrectwords, spelling, and [...] Cosigner Signature: Date (if applicable) CC: ~ [employer] Work Phone: [facility] referral (narrative)* Diagnostic Procedure Only (Urgent) - Closed Specialty Diagnoses / Procedures Referred By Contac t Referred To Contact XR IMAGING Diagnoses Pain of left middle finger Procedures XR DIGIT GENERAL 3V FRONTAL/LAT/OBL LEFT RADEX FINGR MINIMUM 2 VIEWS Asutin Hall APRN.FLOOR LAYER HELPER [address] [place] [address] Xr Imaging Referral ID Status Reason Start Date Expiration Date V isits Requested Visits Authorized [id number] Closed Auto-Generate d Referral 11/12/2022 12/12/2023 1 1 [facility] for referral (narrative)* Diagnostic Procedure Only (Urgent) - Closed Specialty Diagnoses / Procedures Referred By Contac t Referred To Contact XR IMAGING Diagnoses Pain of left middle finger Procedures XR DIGIT GENERAL 3V FRONTAL/LAT/OBL LEFT RADEX FINGR MINIMUM 2 VIEWS Austin Hall APRN.CNP [address] [place] [address] [place] [address] Referral ID Status Reason Start Date Expiration Date V isits Requested Visits Authorized [id number] Closed Auto-Generate d Referral 11/12/2022 12/12/2023 1 1 [facility] for referral (narrative)* Consultation (Routine) - Authorized Specialty Diagnoses / Procedures Referred By Contac t Referred To Contact Cardiology Diagnoses Cardiomyopathy, ischemic Chronic diastolic heart failure (Multi) Aortic valve stenosis, etiology of cardiac valve disease unspecified Procedures Follow Up In Cardiology Cayden Bae MD [address] [facility], [place] [address] Cayden Bae MD [address] [facility], [place] [address] Referral ID Status Reason Start Date Expiration Date V isits Requested Visits Authorized [id number] Authorized 06/28/2024 06/28/2025 1 1 [facility] Work Phone: Reason for referral (narrative)No reason for [facility] Reason for visit Narrative* Diagnostic Procedure Only (Urgent) - Closed Specialty Diagnoses / Procedures Referred By Antonieta t Referred To Contact XR IMAGING Diagnoses Pain of left middle finger Procedures XR DIGIT GENERAL 3V FRONTAL/LAT/OBL LEFT RADEX FINGR MINIMUM 2 VIEWS Austin Hall APRN.FLOOR LAYER HELPER [address] [place] [address] [place] [address] Referral ID Status Reason Start Date Expiration Date V isits Requested Visits Authorized [id number] Closed Auto-Generate d Referral 11/12/2022 12/12/2023 1 1 [facility] for visit Narrative* Auth/Cert Specialty Diagnoses / Procedures Referred By Contac t Referred To Contact Diagnoses Aneurysm of ascending aorta without rupture (CMS-HCC) Aneurysm of ascending aorta without rupture (CMS-HCC) [I71.21] Procedures DC AORTIC ANEURYSM<5CM MAX DIAM CENTERLINE/AXIAL CT DC CORONARY ARTERY BYP W/VEIN & ARTERY GRAFT 1 VEIN DC RPLCMT PROST AORTIC VALVE OPEN XCP HOMOGRF/STENT DC -AORT GRF W/CARD BYP F/AORTIC DS OTH/THN DSJ Mitral Valve Replacement/CABG Replacement Aortic Valve [place] [address] Department of [place] [id number] Phone: tel: fax: [facility] Ananda BOYD [address] [place] [address] fax: Referral ID Status Reason Start Date Expiration Date Visits Re quested Visits Authorized [id number] 1 1 [facility] Work Phone: [facility] for visit Narrative* CV Imaging (Routine) - Authorized Specialty Diagnoses / Procedures Referred By Antonieta flores Referred To Contact Cardiology Diagnoses Status post aortic valve replacement Procedures Transthoracic Echo Complete DC ECHO TTHRC R-T 2D W/WOM-MODE COMPL SPEC&[place] [address] [facility] [place] [address] Phone: tel: fax: Referral ID Status Reason Start Date Expiration Date Visits Requested Visits Authorized [id number] Authorized Perform Procedure 4 08/11/2025 1 1 [facility] Work Phone: Reglsh for visit Narrative* Imaging (Routine) - Pending Review Specialty Diagnoses / Procedures Referred By Antonieta flores Referred To Contact Radiology Diagnoses Carcinoma of breast, estrogen receptor positive, stage 3, unspecified laterality (Multi) Malignant neoplasm of lower-outer quadrant of right breast of female, estrogen receptor negative Procedures BI mammo right diagnostic tomosynthesis [place] [address] [place] [address] Phone: tel: fax: Referral ID Status Reason Start Date Expiration Date Visits Requested Visits Authorized [id number] Pending Review Perform Procedure 09/20/2024 09/20/2025 1 1 [facility] Work Phone: reason for visit Narrative* Imaging (Routine) - Authorized Specialty Diagnoses / Procedures Referred By Contac t Referred To Contact Radiology Diagnoses Carcinoma of breast, estrogen receptor positive, stage 3, unspecified laterality (Multi) Malignant neoplasm of lower-outer quadrant of right breast of female, estrogen receptor negative Procedures BI [place] [address] [place] [address] Phone: tel: fax: Referral ID Status Reason Start Date Expiration Date Visits Requested Visits Authorized [id number] Authorized Perform Procedure 09/20/2024 09/20/2025 1 1 [facility] Work Phone: reason for visit Narrative* Imaging (Routine) - Authorized Specialty Diagnoses / Procedures Referred By Contac t Referred To Contact Radiology Diagnoses Carcinoma of breast, estrogen receptor positive, stage 3, unspecified laterality (Multi) Malignant neoplasm of lower-outer quadrant of right breast of female, estrogen receptor negative Procedures NM PET CT bone skull base [place] [address] [place] [address] Phone: tel: fax: Referral ID Status Reason Start Date Expiration Date Visits Requested Visits Authorized [id number] Authorized Perform Procedure 09/20/2024 09/20/2025 3 3 [facility] Work Phone: reason for visit Narrative* Imaging (Routine) - Authorized Specialty Diagnoses / Procedures Referred By Contac t Referred To Contact Radiology Diagnoses Malignant neoplasm of areola of breast in female, estrogen receptor negative, unspecified laterality Malignant neoplasm of lower-outer quadrant of right breast of female, estrogen receptor negative Encounter for antineoplastic chemotherapy Procedures CT chest abdomen pelvis w IV contrast Neli Cox, CREDIT CONTROL MANAGER-FLOOR LAYER HELPER [address] [place] [address] Phone: tel: fax: Referral ID Status Reason Start Date Expiration Date Visits Requested Visits Authorized [id number] Authorized Perform Procedure 02/14/2025 02/14/2026 1 1 [facility] Work Phone: Reason for visit Narrative* CV Imaging (Emergency) - Authorized Specialty Diagnoses / Procedures Referred By Antonieta t Referred To Contact Cardiology Diagnoses Malignant neoplasm of areola of breast in female, estrogen receptor negative, unspecified laterality Status post administration of cardiotoxic chemotherapy Aortic valve stenosis, etiology of cardiac valve disease unspecified Procedures Transthoracic Echo Limited DC ECHO TRANSTHORC R-T 2D W/WO M-MODE REC F-UP/LMTD DC DOPPLER ECHO COLOR FLOW VELOCITY MAPPING DC DOPPLER ECHO PULSE WAVE W/SPECTRAL F-UP/[place] [address] [place] [address] Phone: tel: fax: Referral ID Status Reason Start Date Expiration Date Visits Requested Visits Authorized [id number] Authorized Perform Procedure 04/25/2025 04/25/2026 1 1 [facility] Work Phone: Reason for visit Narrative* Imaging (Routine) - Authorized Specialty Diagnoses / Procedures Referred By Antonieta t Referred To Contact Radiology Diagnoses Malignant neoplasm of lower-outer quadrant of right breast of female, estrogen receptor negative Encounter for antineoplastic chemotherapy Malignant neoplasm of areola of breast in female, estrogen receptor negative, unspecified laterality Procedures CT chest abdomen pelvis w IV contrast Neli Cox, CREDIT CONTROL MANAGER-FLOOR LAYER HELPER [address] [place] [address] Phone: tel: fax: Referral ID Status Reason Start Date Expiration Date Visits Requested Visits Authorized [id number] Authorized Perform Procedure 05/16/2025 05/16/2026 1 1 [facility] Work Phone: Chief Complaint and Reason for [...] 2024 6:52pm N/V/D December 15, 2024 2:03pm [facility] FU December 22, 2024 10:3 7am Reason [...] 2024 6:52pm N/V/D December 15, 2024 2:03pm [facility] FU December 22, 2024 10:3 7am ACUTE [...] 2024 6:52pm N/V/D December 15, 2024 2:03pm [facility] FU December 22, 2024 10:3 7am ACUTE - RT LEG SWELLING/BOTH LEGS RED Ap ril 2024 12:52pm FEVER - NOT FEELING WELL April 05, 2025 2:20pm Chief Complaint Admit Date [facility] FU December 22, 2024 10:3 7am ACUTE [...] No February 13, 2019 8:49am Power of Radiology Aide No February 13 8:49am Advance Directive Response Recorded Date/ Time Living Will No February 13, 2019 9:49am Power of Radiology Aide No February 13 9:49am Documents on File Type Date Recorded Patient [employer]ade [employer]er Expl anation Healthcare Power of Atty 02/09/2024 pat ient record Documents on File Type Date Recorded 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 Yes December 09, 2024 1:45am Name of Medical Power of Radiology Aide Zuly Ayers si ster December 09, 2024 1:45am Advance Directive Response Recorded Date/ Time Do you have a Healthcare Power of Radiology Aide? No April 18, 2025 5:20pm Summary Purpose Reason for Referral Specialty Diagnoses / Procedures Referred By Contac t Referred To Contact Cardiology Procedures Echocardiogram Non [place] [address] Department [place] [address] Referral ID Status Reason Start Date Expiration Date Visits Requested Visits Authorized [id number] Pending Review Perform Procedure 07/03/2024 07/03/2025 1 1 Specialty Diagnoses / Procedures Referred By Contac t Referred To Contact [place] [address] [address] [facility] Department [place] [address] Referral ID Status Reason Start Date Expiration Date V isits Requested Visits Authorized [id number] Pending Review 04/30/2024 04/30/2025 1 1 Specialty Diagnoses / Procedures Referred By Contac t Referred To Contact Family Medicine / Primary Care [place] [address] Department [place] [address] Referral ID Status Reason Start Date Expiration Date Visits Requested Visits Authorized [id number] Authorized Specialty Services Required 04/30/2024 04/30/2025 1 1 Specialty Diagnoses / Procedures Referred By Contac t Referred To Contact Radiology Diagnoses ICD (implantable cardioverter-defibrillator) in place Procedures XR chest 2 views Cayden Bae MD [address] [facility], [address] [address] Referral ID Status Reason Start Date Expiration Date Visits Requested Visits Authorized [id number] Authorized Perform Procedure 04/14/2024 04/14/2025 1 1 Specialty Diagnoses / Procedures Referred By Contac t Referred To Contact Diagnoses Malignant neoplasm of lower-outer quadrant of right breast of female, estrogen receptor negative (Multi) Encounter for antineoplastic chemotherapy Carcinoma of breast, estrogen receptor positive, stage 3, unspecified laterality (Multi) Chemotherapy-induced neutropenia (CMS-HCC) Neli Cox, CREDIT CONTROL MANAGER-FLOOR LAYER HELPER [address] [place] [phone] Referral ID Status Reason Start Date Expiration Date V isits Requested Visits Authorized [id number] Pending Review 1 1 Specialty Diagnoses / Procedures Referred By Contac t Referred To Contact Cardiology Diagnoses Aneurysm of ascending aorta without rupture (CMS-HCC) Paroxysmal atrial fibrillation (Multi) Bilateral carotid artery stenosis Procedures Vascular US Carotid Artery Duplex Bilateral Alondra Hayes, CREDIT CONTROL MANAGER-FLOOR LAYER HELPER [address] [place] [address] Referral ID Status Reason Start Date Expiration Date Visits Requested Visits Authorized [id number] Authorized Perform Procedure 07/24/2024 07/24/2025 1 1 Specialty Diagnoses / Procedures Referred By Contac t Referred To Contact Radiology Diagnoses Malignant neoplasm of lower-outer quadrant of right breast of female, estrogen receptor negative (Multi) Procedures BI US guided [place] [address] [facility] Department [place] [address] Referral ID Status Reason Start Date Expiration Date Visits Requested Visits Authorized [id number] Authorized Perform Procedure 03/02/2024 03/02/2025 1 1 Specialty Diagnoses / Procedures Referred By Contac t Referred To Contact Diagnoses Cardiomyopathy, ischemic Chronic diastolic heart failure (Multi) Aortic valve stenosis, etiology of cardiac valve disease unspecified Aneurysm of ascending aorta without rupture (CMS-HCC) Procedures ECG 12 Lead Cayden Bae MD [address] [facility] [place], [address] [place] [phone] Referral ID Status Reason Start Date Expiration Date V isits Requested Visits Authorized [id number] Authorized 03/08/2024 03/08/2025 1 1 Specialty Diagnoses / Procedures Referred By Contac t Referred To Contact Cardiology Diagnoses Cardiomyopathy, ischemic Chronic diastolic heart failure (Multi) Aortic valve stenosis, etiology of cardiac valve disease unspecified Procedures Follow Up In Cardiology Cayden Bae MD [address] [facility], [place] [address] Cayden Bae MD [address] [facility], [place] [address] Referral ID Status Reason Start Date Expiration Date V isits Requested Visits Authorized [id number] Authorized 03/08/2024 03/08/2025 1 1 Specialty Diagnoses / Procedures Referred By Contac t Referred To Contact Cardiology Diagnoses Cardiomyopathy, ischemic Chronic diastolic heart failure (Multi) Aortic valve stenosis, etiology of cardiac valve disease unspecified Procedures Transthoracic Echo (TTE) Complete DC ECHO TTHRC R-T 2D W/WOM-MODE COMPL SPEC&COLR D Cayden Bae MD [address] [facility], [place] [address] Referral ID Status Reason Start Date Expiration Date Visits Requested Visits Authorized [id number] Pending Review Perform Procedure 03/08/2024 03/08/2025 1 1 Specialty Diagnoses / Procedures Referred By Contac t Referred To Contact Radiology Diagnoses Carcinoma of breast, estrogen receptor positive, stage 3, unspecified laterality (Multi) Procedures IR CVC port placement IR CVC port DC INSJ TUNNELED CTR VAD W/SUBQ PORT AGE 5 YR/> [place] [address] [place] [address] Referral ID Status Reason Start Date Expiration Date Visits Requested Visits Authorized [id number] Pending Review Perform Procedure 02/09/2024 02/08/2025 1 1 Specialty Diagnoses / Procedures Referred By Contac t Referred To Contact Radiology Diagnoses Carcinoma of breast, estrogen receptor positive, stage 3, unspecified laterality (Multi) Procedures [place] [address] [place] [phone] Referral ID Status Reason Start Date Expiration Date Visits Requested Visits Authorized [id number] Authorized Perform Procedure 02/09/2024 02/08/2025 2 2 Specialty Diagnoses / Procedures Referred By Contac t Referred To Contact Cardiology Diagnoses Carcinoma of breast, estrogen receptor positive, stage 3, unspecified laterality (Multi) Cardiotoxicity (Multi) Procedures Transthoracic Echo Limited DC ECHO TRANSTHORC R-T 2D W/WO M-MODE REC F-UP/LMTD DC DOP ECHOCARD COLOR FLOW VELOCITY MAPPING DC DOP ECHOCARD PULSE WAVE W/SPECTRAL F-UP/[place] [address] [place] [phone] Referral ID Status Reason Start Date Expiration Date Visits Requested Visits Authorized [id number] Authorized Perform Procedure 02/09/2024 02/08/2025 1 1 Specialty Diagnoses / Procedures Referred By Contac t Referred To Contact Cardiology Diagnoses Carcinoma of breast, estrogen receptor positive, stage 3, unspecified laterality (Multi) Cardiotoxicity (Multi) Procedures Transthoracic Echo Limited DC ECHO TRANSTHORC R-T 2D W/WO M-MODE REC F-UP/LMTD DC DOP ECHOCARD COLOR FLOW VELOCITY MAPPING DC DOP ECHOCARD PULSE WAVE W/SPECTRAL F-UP/[place] [address] [address] [place] [phone] Referral ID Status Reason Start Date Expiration Date Visits Requested Visits Authorized [id number] Authorized Perform Procedure 02/09/2024 02/08/2025 1 1 Specialty Diagnoses / Procedures Referred By Contac t Referred To Contact Radiology Diagnoses Abnormal mammogram Procedures BI breast right [place] [address] Department of Surgery-[place] [address] Referral ID Status Reason Start Date Expiration Date Visits Requested Visits Authorized [id number] Authorized Perform Procedure 02/09/2024 02/08/2025 1 1 Specialty Diagnoses / Procedures Referred By Contac t Referred To Contact Radiology Diagnoses Invasive ductal carcinoma of breast, female, right (Multi) Malignant neoplasm of overlapping sites of right female breast (Multi) Procedures BI [place] [address] [address] [facility] [place] [address] Referral ID Status Reason Start Date Expiration Date Visits Requested Visits Authorized [id number] Authorized Perform Procedure 02/09/2024 02/08/2025 1 1 Specialty Diagnoses / Procedures Referred By Contac t Referred To Contact Radiology Procedures [place] [address] [address] [facility] [place] [address] Referral ID Status Reason Start Date Expiration Date Visits Requested Visits Authorized [id number] Pending Review Perform Procedure 02/07/2024 02/06/2025 1 1 Additional Source Comments Goals (unrecognized section and content) Goals may be documented in a n alternate section Care Team (unrecognized sect ion and content) Care Team Personnel Name: JUAN F MARCOS MD Position: P4 Physician - Cardiology Member Role: Injection Maintenance Technician Address: Address: [address] [place] [address] Name: DANIELA FALLON MD Member Role: Primary Care Physician Address: Address: [address] [place] [address] Care Team Related Persons Name: ARIANNE BEDOYA Care Team Personnel Name: JUAN F MARCOS MD Position: P4 Physician - Cardiology Member Role: Injection Maintenance Technician Address: Address: [address] [place] [address] Name: DANIELA FALLON MD Member Role: Primary Care Physician Address: Address: [address] [place] [address] Care Team Related Persons Name: ARIANNE BEDOYA Source Comments (unrecognize d section and content) In the event this informatio n is protected by the Federal Confidentiality of Alcohol and Drug Abuse Patient Records regulations: The Federal rules restrict any use of the information to criminally investigate or prosecute any alcohol or drug abuse patient.[facility] Center[facility] the event this information is protected by the Federal Confidentiality of Alcohol and Drug Abuse Patient Records regulations: The Federal rules restrict any use of the information to criminally investigate or prosecute any alcohol or drug abuse patient.[facility] Reason for Visit (unrecogniz ed section and content) Reason Comments Follow-up Specialty Diagnoses / Procedures Referred By Contac t Referred To Contact Diagnoses Carcinoma of breast, estrogen receptor positive, stage 3, unspecified laterality (Multi) [place] [address] [place] [address] [facility] [address] [phone] Referral ID Status Reason Start Date Expiration Date V isits Requested Visits Authorized [id number] Authorized 03/10/2024 03/10/2025 1 99 Reason Comments left hand middle finger pain Woke up wit h symptoms-no injury Specialty Diagnoses / Procedures Referred By Contac t Referred To Contact Radiology Procedures [place] [address] [address] Department of Surgery-Surgical Oncology [place] [phone] Referral ID Status Reason Start Date Expiration Date Visits Requested Visits Authorized [id number] Pending Review Perform Procedure 02/07/2024 02/06/2025 1 1 Referral ID Status Reason Start Date Expiration Date Visits Requested Visits Authorized [id number] Pending Review Perform Procedure 02/07/2024 02/06/2025 1 1 Specialty Diagnoses / Procedures Referred By Contac t Referred To Contact Radiology Diagnoses Invasive ductal carcinoma of breast, female, right (Multi) Malignant neoplasm of overlapping sites of right female breast (Multi) Procedures [place] [address] [address] Department [place] [address] Referral ID Status Reason Start Date Expiration Date Visits Requested Visits Authorized [id number] Authorized Perform Procedure 02/09/2024 02/08/2025 1 1 Specialty Diagnoses / Procedures Referred By Contac t Referred To Contact Radiology Diagnoses Invasive ductal carcinoma of breast, female, right (Multi) Malignant neoplasm of overlapping sites of right female breast (Multi) Procedures BI mammo bilateral [place] [address] [address] Department [place] [address] Referral ID Status Reason Start Date Expiration Date Visits Requested Visits Authorized [id number] Authorized Perform Procedure 02/09/2024 02/08/2025 1 1 Reason Comments New Patient Visit Specialty Diagnoses / Procedures Referred By Contac t Referred To Contact Cardiology Diagnoses Carcinoma of breast, estrogen receptor positive, stage 3, unspecified laterality (Multi) Cardiotoxicity (Multi) Procedures Transthoracic Echo Limited DC ECHO TRANSTHORC R-T 2D W/WO M-MODE REC F-UP/LMTD DC DOP ECHOCARD COLOR FLOW VELOCITY MAPPING DC DOP ECHOCARD PULSE WAVE W/SPECTRAL F-UP/[place] [address] [address] [place] [phone] Referral ID Status Reason Start Date Expiration Date Visits Requested Visits Authorized [id number] Authorized Perform Procedure 02/09/2024 02/08/2025 1 1 Reason Comments New Patient Visit Specialty Diagnoses / Procedures Referred By Contac t Referred To Contact Radiology Diagnoses Abnormal mammogram Procedures BI US guided breast localization and biopsy right BI breast [place] [address] [address] Department of Surgery-Surgical Oncology [place] [phone] Referral ID Status Reason Start Date Expiration Date Visits Requested Visits Authorized [id number] Pending Review Perform Procedure 02/09/2024 02/08/2025 1 1 Specialty Diagnoses / Procedures Referred By Contac t Referred To Contact Radiology Diagnoses Carcinoma of breast, estrogen receptor positive, stage 3, unspecified laterality (Multi) Procedures [place] [address] [place] [address] Referral ID Status Reason Start Date Expiration Date Visits Requested Visits Authorized [id number] Authorized Perform Procedure 02/09/2024 02/08/2025 2 2 Specialty Diagnoses / Procedures Referred By Contac t Referred To Contact Radiology Diagnoses Carcinoma of breast, estrogen receptor positive, stage 3, unspecified laterality (Multi) Procedures IR CVC port placement IR CVC port DC INSJ TUNNELED CTR VAD W/SUBQ PORT AGE 4 YR/> [place] [address] [place] [address] Referral ID Status Reason Start Date Expiration Date Visits Requested Visits Authorized [id number] Authorized Perform Procedure 02/09/2024 02/08/2025 1 1 Specialty Diagnoses / Procedures Referred By Contac t Referred To Contact Radiology Diagnoses Malignant neoplasm of lower-outer quadrant of right breast of female, estrogen receptor negative (Multi) Procedures BI [place] [address] Department of Surgery-Surgical Oncology [place] [phone] Referral ID Status Reason Start Date Expiration Date Visits Requested Visits Authorized [id number] Authorized Perform Procedure 03/02/2024 03/02/2025 1 1 Specialty Diagnoses / Procedures Referred By Contac t Referred To Contact Radiology Diagnoses Malignant neoplasm of lower-outer quadrant of right female breast (Multi) Estrogen receptor negative status (ER-) Procedures BI [place] [id number] Department of Surgery-[place] [address] Referral ID Status Reason Start Date Expiration Date Visits Requested Visits Authorized [id number] Authorized Perform Procedure 03/07/2024 03/07/2025 1 1 Specialty Diagnoses / Procedures Referred By Contac t Referred To Contact Radiology Diagnoses Malignant neoplasm of lower-outer quadrant of right female breast (Multi) Estrogen receptor negative status (ER-) Procedures BI [place] [address] Department of Surgery-Surgical Oncology [place] [phone] Referral ID Status Reason Start Date Expiration Date Visits Requested Visits Authorized [id number] Authorized Perform Procedure 03/07/2024 03/07/2025 1 1 Specialty Diagnoses / Procedures Referred By Contac t Referred To Contact Cardiology Diagnoses Cardiomyopathy, ischemic Chronic diastolic heart failure (Multi) Aortic valve stenosis, etiology of cardiac valve disease unspecified Procedures Transthoracic Echo (TTE) Complete DC ECHO TTHRC R-T 2D W/WOM-MODE COMPL SPEC&COLR D Cayden Bae MD [address] [facility], [address] [place] [address] Referral ID Status Reason Start Date Expiration Date Visits Requested Visits Authorized [id number] Authorized Perform Procedure 03/08/2024 03/08/2025 1 1 Specialty Diagnoses / Procedures Referred By Contac t Referred To Contact Cardiology Diagnoses Aneurysm of ascending aorta without rupture (CMS-HCC) Paroxysmal atrial fibrillation (Multi) Bilateral carotid artery stenosis Procedures Vascular US Carotid Artery Duplex Bilateral Alondra Hayes, CREDIT CONTROL MANAGER-FLOOR LAYER HELPER [address] [place] [address] Referral ID Status Reason Start Date Expiration Date Visits Requested Visits Authorized [id number] Authorized Perform Procedure 07/24/2024 07/24/2025 1 1 Reason Comments Follow-up Specialty Diagnoses / Procedures Referred By Contac t Referred To Contact Radiology Diagnoses ICD (implantable cardioverter-defibrillator) in place Procedures XR chest 2 views Cayden Bae MD [address], [place] [address] Referral ID Status Reason Start Date Expiration Date Visits Requested Visits Authorized [id number] Authorized Perform Procedure 04/14/2024 04/14/2025 1 1 Reason Comments Follow-up Specialty Diagnoses / Procedures Referred By Contac t Referred To Contact Cardiology Diagnoses Cardiomyopathy, ischemic Chronic diastolic heart failure Aortic valve stenosis, etiology of cardiac valve disease unspecified Procedures Follow Up In Cardiology Cayden Bae MD [address], [place] [address] Phone: tel: fax: Cayden Bae MD [address], [place] [address] Phone: tel: fax: Referral ID Status Reason Start Date Expiration Date V isits Requested Visits Authorized [id number] Authorized 06/28/2024 06/28/2025 1 1 Reason Comments Neck Pain Reason Comments Follow-up Specialty Diagnoses / Procedures Referred By Contac t Referred To Contact Cardiology Diagnoses Cardiomyopathy, ischemic Chronic diastolic heart failure (Multi) Aortic valve stenosis, etiology of cardiac valve disease unspecified Procedures Follow Up In Cardiology Cayden Bae MD [address], [place] [address] Cayden Bae MD [address], [place] [address] Referral ID Status Reason Start Date Expiration Date V isits Requested Visits Authorized [id number] Authorized 03/08/2024 03/08/2025 1 1 Specialty Diagnoses / Procedures Referred By Contac t Referred To Contact Cardiology Procedures Echocardiogram Non [place] [address] [address] [facility] Department [place] [address] Referral ID Status Reason Start Date Expiration Date Visits Requested Visits Authorized [id number] Pending Review Perform Procedure 07/03/2024 07/03/2025 1 1 Reason Comments New Patient Visit Consult Referral ID Status Reason Start Date Expiration Date Visits Requested Visits Authorized [id number] Pending Review Perform Procedure 07/17/2024 07/17/2025 1 [...] Active Start: December 11, 2024 Dr. Guillaume pSring , Other Provider Active S tart: December [...] December 13, 2024 Dr. Guillaume [place] DO Other Provider Active S tart: December 13, [...] February 06, 2025 End: February 06, 2025 Aaron HURD PA Attending Provider Active St art: February 06, 2025 End: February 06, 2025 Aaron HURD PA Referring Provider Active St art: February 06, 2025 End: February 06, 2025 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 Start Date End Date Daniela Fallon MD PCP - General Internal Medicine 05/16/19 Team Status: Inactive Member Role Status Dates Dr. Daniela Fallon MD Primary Care P ruddy, Attending Provider, Referring Provider Active Team Status: Inactive Member Role Status Dates Dr. Daniela Fallon MD Primary Care Provider, Refer ring Provider Active Guillaume Stockton RN OFFICE, RN OFFICE-C Attending Provider Active 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 Start Date End Date Daniela Fallon MD [address] [facility] [place] [address] PCP - General 07/12/19 Jeffrey Desai MD [address] [facility] [address] [facility] [place] [address] Referring Physician Interventional Cardiology 11/30/23 [place] [address] [facility] Department [place] [address] Surgeon Cardiothoracic Surgery 11/30/23 Team Status: Inactive Member Role Status Dates Dr. Danieal Fallon MD Primary Care Provider, Refer ring [...] MD Attending Provider, Referrin g Provider Active 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 Start Date End Date Daniela Fallon MD [address] [facility] [place] [address] PCP - General 07/12/19 Jeffrey Desai MD [address] [place] [address] Referring Physician Interventional Cardiology 11/30/23 [place] [address] [place] [address] Surgeon Cardiothoracic Surgery 11/30/23 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 Start Date End Date Daniela Fallon MD [address] [place] [address] [place] [address] PCP - General 07/12/19 Jeffrey Desai MD [address] [place] [address] Referring Physician Interventional Cardiology 11/30/23 [place] [address] [place] [address] Surgeon Cardiothoracic Surgery 11/30/23 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 Start Date End Date Daniela Fallon MD [address] [place] [address] [place] [address] PCP - General 07/12/19 Jeffrey Desai MD [address] [place] [address] Referring Physician Interventional Cardiology 11/30/23 [place] [address] [place] [address] Surgeon Cardiothoracic Surgery 11/30/23 [place] [address] [place] [address] Consulting Physician Hematology and Oncology 02/09/24 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 Start Date End Date Daniela Fallon MD [facility] [place] [address] PCP - General 07/12/19 Jeffrey Desai MD [address] [facility] [address] [place] [address] Referring Physician Interventional Cardiology 11/30/23 [place] [address] Department [place] [address] Surgeon Cardiothoracic Surgery 11/30/23 [place] [address] [place] [address] Consulting Physician Hematology and Oncology 02/09/24 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 Start Date End Date Daniela Fallon MD [address] [facility] Internal [facility] [place] [address] PCP - General 07/12/19 Jeffrey Desai MD [address] [facility] [address] [place] [address] Referring Physician Interventional Cardiology 11/30/23 [place] [address] [facility] Department [place] [address] Surgeon Cardiothoracic Surgery 11/30/23 [place] [address] [place] [address] Consulting Physician Hematology and Oncology 02/09/24 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 Start Date End Date Daniela Fallon MD [address] [facility] Internal Medicine [facility] [place], [place] [address] PCP - General 07/12/19 Jeffrey Desai MD [address] [facility] [address] [place] [address] Referring Physician Interventional Cardiology 11/30/23 [place] [address] [address] [facility] [place] [address] Surgeon Cardiothoracic Surgery 11/30/23 [place] [address] [place] [address] Consulting Physician Hematology and Oncology 02/09/24 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 Start Date End Date Daniela Fallon MD [address] [facility] Internal Medicine [place], [place] [address] PCP - General 07/12/19 Jeffrey Desai MD [address] [facility] [address] [place] [address] Referring Physician Interventional Cardiology 11/30/23 [place] [address] Department [place] [address] Surgeon Cardiothoracic Surgery 11/30/23 [place] [address] [place] [address] Consulting Physician Hematology and Oncology 02/09/24 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 Start Date End Date Daniela Fallon MD [address] [facility] Internal Medicine [place], [place] [address] PCP - General 07/12/19 Jeffrey Desai MD [address] [facility] [address] [place] [address] Referring Physician Interventional Cardiology 11/30/23 [place] [address] Department [place] [address] Surgeon Cardiothoracic Surgery 11/30/23 [place] [address] [place] [address] Consulting Physician Hematology and Oncology 02/09/24 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 Start Date End Date Daniela Fallon MD [address] [facility] Internal Medicine [place], [place] [address] PCP - General 07/12/19 Jeffrey Desai MD [address] [facility] [address] [place] [address] Referring Physician Interventional Cardiology 11/30/23 [place] [address] Department [place] [address] Surgeon Cardiothoracic Surgery 11/30/23 [place] [address] [place] [address] Consulting Physician Hematology and Oncology 02/09/24 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 Start Date End Date Daniela Fallon MD [address] [facility] Internal Medicine [place] [address]141 PCP - General 07/12/19 Jeffrey Desai MD [address] [place] [address] Referring Physician Interventional Cardiology 11/30/23 [place] [address] Department [place] [address] Surgeon Cardiothoracic Surgery 11/30/23 [place] [address] [place] [address] Consulting Physician Hematology and Oncology 02/09/24 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 Start Date End Date Daniela Fallon MD [address] [facility] Internal Medicine [place] 44[address]51 PCP - General 07/12/19 Jeffrey Desai MD [address] [facility] [address] [place] [address] Referring Physician Interventional Cardiology 11/30/23 [place] [address] Department [place] [address] Surgeon Cardiothoracic Surgery 11/30/23 [place] [address] [place] [address] Consulting Physician Hematology and Oncology 02/09/24 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 Start Date End Date Daniela Fallon MD [address] [facility] Internal [facility] [place] [address]141 PCP - General 07/12/19 Jeffrey Desai MD [address] [facility] [address] [facility] Heart [facility] [place] [address] Referring Physician Interventional Cardiology 11/30/23 [place] [address] Department [place] [address] Surgeon Cardiothoracic Surgery 11/30/23 [place] [address] [place] [address] Consulting Physician Hematology and Oncology 02/09/24 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 Start Date End Date Daniela Fallon MD PCP - General Internal Medicine 05/16/19 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 Start Date End Date Daniela Fallon MD [address] [facility] [place] [address] PCP - General 07/12/19 Jeffrey Desai MD [address] [facility] [address] [place] [address] Referring Physician Interventional Cardiology 11/30/23 [place] [address] Department [place] [address] Surgeon Cardiothoracic Surgery 11/30/23 [place] [address] [place] [address] Consulting Physician Hematology and Oncology 02/09/24 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 Start Date End Date Daniela Fallon MD [address] [place] [address] PCP - General 07/12/19 Jeffrey Desai MD [address] [facility] [address] [place] [address] Referring Physician Interventional Cardiology 11/30/23 [place] [address] [place] [address] Surgeon Cardiothoracic Surgery 11/30/23 [place] [address] [place] [address] Consulting Physician Hematology and Oncology 02/09/24 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 Start Date End Date Daniela Fallon MD [address] [place] [address] Internal [place], [place] [address] PCP - General 07/12/19 08/07/24 Daniela Fall[facility] MD [facility] [place] [address] PCP - General Internal Medicine 08/08/24 Jeffrey Desai MD [address] [facility] [address] [place] [address] Referring Physician Interventional Cardiology 11/30/23 [place] [address] [place] [address] Surgeon Cardiothoracic Surgery 11/30/23 [place] [address] [place] [address] Consulting Physician Hematology and Oncology 02/09/24 Germán Hurst [address] [place] [address] Referring Physician Case Management 08/08/24 [place] [address] [place] [address] Surgeon Cardiothoracic Surgery 08/08/24 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 Start Date End Date Daniela Fallon MD [facility] [facility] [place] [address] PCP - General Internal Medicine 08/08/24 Jeffrey Desai MD [address] [facility] [address] [place] [address] Referring Physician Interventional Cardiology 11/30/23 [place] [address] Department [place] [address] Surgeon Cardiothoracic Surgery 11/30/23 [place] [address] [place] [address] Consulting Physician Hematology and Oncology 02/09/24 Germán Hurst [address] [place] [address] Referring Physician Case Management 08/08/24 [place] [address] Department [place] [address] Surgeon Cardiothoracic Surgery 08/08/24 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 Start Date End Date Daniela Fallon MD [address] [facility] [place] [address] PCP - General Internal Medicine 08/08/24 Jeffrey Desai MD [address] [facility] [address] [facility] [place] [address] Referring Physician Interventional Cardiology 11/30/23 [place] [address] Department of [place], [place] [address] Surgeon Cardiothoracic Surgery 11/30/23 [place] [address] [place] [address] Consulting Physician Hematology and Oncology 02/09/24 Germán Hurst [address] [place] [address] Referring Physician Case Management 08/08/24 [place] [address] Department [place] [address] Surgeon Cardiothoracic Surgery 08/08/24 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 Start Date End Date Daniela Fallon MD [address] [place] [address] Internal Medicine [facility] [place] [address] PCP - General Internal Medicine 08/08/24 Jeffrey Desai MD [address] [facility] [address] [facility] [place] [address] Referring Physician Interventional Cardiology 11/30/23 [place] [address] [place] [address] Surgeon Cardiothoracic Surgery 11/30/23 [place] [address] [place] [address] Consulting Physician Hematology and Oncology 02/09/24 Germán [place] [address] Referring Physician Case Management 08/08/24 [place] [address] Department [place] [address] Surgeon Cardiothoracic Surgery 08/08/24 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 Start Date End Date Daniela Fallon MD [address] [facility] [place] [address] PCP - General Internal Medicine 08/08/24 Jeffrey Desai MD [address] [facility] [address] [place] [address] Referring Physician Interventional Cardiology 11/30/23 [place] [address] [place] [address] Surgeon Cardiothoracic Surgery 11/30/23 [place] [address] [place] [address] Consulting Physician Hematology and Oncology 02/09/24 Germán Hurst [address] [place] [address] Referring Physician Case Management 08/08/24 [place] [address] [place] [address] Surgeon Cardiothoracic Surgery 08/08/24 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 Start Date End Date Daniela Fallon MD [address] [facility] [place] [address] PCP - General 07/12/19 Jeffrey Desai MD [address] [facility] [address] [place] [address] Referring Physician Interventional Cardiology 11/30/23 [place] [address] Department [place] [address] Surgeon Cardiothoracic Surgery 11/30/23 [place] [address] [place] [address] Consulting Physician Hematology and Oncology 02/09/24 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 Start Date End Date Daniela Fallon MD [address] [place] [address] [place] [address] PCP - General 07/12/19 Jeffrey Desai MD [address] [facility] [address] [place] [address] Referring Physician Interventional Cardiology 11/30/23 [place] [address] Department [place] [address] Surgeon Cardiothoracic Surgery 11/30/23 [place] [address] [place] [address] Consulting Physician Hematology and Oncology 02/09/24 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 Start Date End Date Daniela Fallon MD [address] [place] [address] [place] [address] PCP - General Internal Medicine 08/08/24 Jeffrey Desai MD [address] [facility] [address] [place] [address] Referring Physician Interventional Cardiology 11/30/23 [place] [address] Department [place] [address] Surgeon Cardiothoracic Surgery 11/30/23 [place] [address] [place] [address] Consulting Physician Hematology and Oncology 02/09/24 Germán Hurst [address] [place] [address] Referring Physician Case Management 08/08/24 [place] [address] [place] [address] Surgeon Cardiothoracic Surgery 08/08/24 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 Start Date End Date Daniela Fallon MD [address] [place] [address] [place] [address] PCP - General 07/12/19 Jeffrey Desai MD [address] [facility] [address] [facility] [place] [address] Referring Physician Interventional Cardiology 11/30/23 [place] [address] Department [place] [address] Surgeon Cardiothoracic Surgery 11/30/23 [place] [address] [place] [address] Consulting Physician Hematology and Oncology 02/09/24 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 Start Date End Date Daniela Fallon MD [facility] [place] [address] PCP - General 07/12/19 Jeffrey Desai MD [address] [facility] [address] [place] [address] Referring Physician Interventional Cardiology 11/30/23 [place] [address] [place] [address] Surgeon Cardiothoracic Surgery 11/30/23 [place] [address] [place] [address] Consulting Physician Hematology and Oncology 02/09/24 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 Start Date End Date Daniela Fallon MD [facility] [place] [address] PCP - General 07/12/19 Jeffrey Desai MD [address] [facility] [address] [place] [address] Referring Physician Interventional Cardiology 11/30/23 [place] [address] [place] [address] Surgeon Cardiothoracic Surgery 11/30/23 [place] [address] [place] [address] Consulting Physician Hematology and Oncology 02/09/24 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 Start Date End Date Daniela Fallon MD [facility] [place] [address] PCP - General 07/12/19 Jeffrey Desai MD [address] [place] [address] Referring Physician Interventional Cardiology 11/30/23 [place] [address] [place] [address] Surgeon Cardiothoracic Surgery 11/30/23 [place] [address] [place] [address] Consulting Physician Hematology and Oncology 02/09/24 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 Start Date End Date Daniela Fallon MD [address] [place] [address] [place] [address] PCP - General 07/12/19 Jeffrey Desai MD [address] [facility] [address] [place] [address] Referring Physician Interventional Cardiology 11/30/23 [place] [address] [place] [address] Surgeon Cardiothoracic Surgery 11/30/23 [place] [address] [place] [address] Consulting Physician Hematology and Oncology 02/09/24 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 Start Date End Date Daniela Fallon MD [facility] [place] [address] PCP - General 07/12/19 Jeffrey Desai MD [address] [place] [address] Referring Physician Interventional Cardiology 11/30/23 [place] [address] [place] [address] Surgeon Cardiothoracic Surgery 11/30/23 [place] [address] [place] [address] Consulting Physician Hematology and Oncology 02/09/24 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 Start Date End Date Daniela Fallon MD [address] [place] [address] [place] [address] PCP - General 07/12/19 Jeffrey Desai MD [address] [facility] [facility] [address] [place] [address] Referring Physician Interventional Cardiology 11/30/23 [place] [address] [place] [address] Surgeon Cardiothoracic Surgery 11/30/23 [place] [address] [place] [address] Consulting Physician Hematology and Oncology 02/09/24 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 Start Date End Date Daniela Fallon MD [address] [place] [address] [place] [address] PCP - General 07/12/19 Jeffrey Desai MD [address] [place] [address] Referring Physician Interventional Cardiology 11/30/23 [place] [address] [place] [address] Surgeon Cardiothoracic Surgery 11/30/23 [place] [address] [place] [address] Consulting Physician Hematology and Oncology 02/09/24 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 Start Date End Date Daniela Fallon MD [address] [place] [address] [place] [address] PCP - General 07/12/19 Jeffrey Desai MD [address] [facility] [address] [place] [address] Referring Physician Interventional Cardiology 11/30/23 [place] [address] [place] [address] Surgeon Cardiothoracic Surgery 11/30/23 [place] [address] [place] [address] Consulting Physician Hematology and Oncology 02/09/24 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 Start Date End Date Daniela Fallon MD [address] [facility] [place] [address] PCP - General 07/12/19 Jeffrey Desai MD [address] [place] [address] Referring Physician Interventional Cardiology 11/30/23 [place] [address] Department [place] [address] Surgeon Cardiothoracic Surgery 11/30/23 [place] [address] [place] [address] Consulting Physician Hematology and Oncology 02/09/24 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 Start Date End Date Daniela Fallon MD [address] [facility] [place] [address] PCP - General Internal Medicine 08/08/24 Jeffrey Desai MD [address] [facility] [address] [place] [address] Referring Physician Interventional Cardiology 11/30/23 [place] [address] [place] [address] Surgeon Cardiothoracic Surgery 11/30/23 [place] [address] [place] [address] Consulting Physician Hematology and Oncology 02/09/24 Germán Hurst [address] [place] [address] Referring Physician Case Management 08/08/24 [place] [address] Department [place] [address] Surgeon Cardiothoracic Surgery 08/08/24 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 Start Date End Date Daniela Fallon MD [address] [facility] [place] [address] PCP - General Internal Medicine 08/08/24 Jeffrey Desai MD [address] [facility] [address] [facility] [place] [address] Referring Physician Interventional Cardiology 11/30/23 [place] [address] Department [place] [address] Surgeon Cardiothoracic Surgery 11/30/23 [place] [address] [place] [address] Consulting Physician Hematology and Oncology 02/09/24 Germán Hurst [address] [place] [address] Referring Physician Case Management 08/08/24 [place] [address] Department [place] [address] Surgeon Cardiothoracic Surgery 08/08/24 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 Start Date End Date Daniela Fallon MD [address] [facility] [place] [address] PCP - General Internal Medicine 08/08/24 Jeffrey Desai MD [address] [facility] [address] [facility] [place] [address] Referring Physician Interventional Cardiology 11/30/23 [place] [address] Department [place] [address] Surgeon Cardiothoracic Surgery 11/30/23 [place] [address] [place] [address] Consulting Physician Hematology and Oncology 02/09/24 Germán Hurst [address] [place] [address] Referring Physician Case Management 08/08/24 [place] [address] Department [place] [address] Surgeon Cardiothoracic Surgery 08/08/24 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 Start Date End Date Daniela Fallon MD [address] [facility] [place] [address] PCP - General Internal Medicine 08/08/24 Jeffrey Desai MD [address] [facility] [address] [facility] [place] [address] Referring Physician Interventional Cardiology 11/30/23 [place] [address] [facility] [place] [address] Surgeon Cardiothoracic Surgery 11/30/23 [place] [address] [place] [address] Consulting Physician Hematology and Oncology 02/09/24 Germán Hurst [address] [place] [address] Referring Physician Case Management 08/08/24 [place] [address] [facility] Department [place] [address] Surgeon Cardiothoracic Surgery 08/08/24 Team Status: Inactive Member Role Status Dates Dr. Daniela Fallon MD Primary Care Provider Active Start: September 24, 2024 End: September 24, 2024 Dr. Jesus Luu DO Attending Provider Active Start: September 24, 2024 End: September 24, 2024 Dr. 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 Start Date End Date Daniela Fallon MD [address] [facility] Internal Medicine [facility] [place] [address] PCP - General Internal Medicine 08/08/24 Jeffrey Desai MD [address] [facility] [address] [place] [address] Referring Physician Interventional Cardiology 11/30/23 [place] [address] [place] [address] Surgeon Cardiothoracic Surgery 11/30/23 [place] [address] [place] [address] Consulting Physician Hematology and Oncology 02/09/24 Germán Hurst [address] [place] [address] Referring Physician Case Management 08/08/24 [place] [address] [place] [address] Surgeon Cardiothoracic Surgery 08/08/24 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 Start Date End Date Daniela Fallon MD [address] [place] [address] [place] [address] PCP - General Internal Medicine 08/08/24 Jeffrey Desai MD [address] [facility] [address] [place] [address] Referring Physician Interventional Cardiology 11/30/23 [place] [address] [place] [address] Surgeon Cardiothoracic Surgery 11/30/23 [place] [address] [place] [address] Consulting Physician Hematology and Oncology 02/09/24 Germán [place] [address] Referring Physician Case Management 08/08/24 [place] [address] [facility] Department [place] [address] Surgeon Cardiothoracic Surgery 08/08/24 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 Start Date End Date Daniela Fallon MD [address] [place] [address] [place] [address] PCP - General Internal Medicine 08/08/24 Jeffrey Desai MD [address] [facility] [address] [facility] [place] [address] Referring Physician Interventional Cardiology 11/30/23 [place] [address] [facility] Department [place] [address] Surgeon Cardiothoracic Surgery 11/30/23 [place] [address] [place] [address] Consulting Physician Hematology and Oncology 02/09/24 [place] [place] [address] Referring Physician Case Management 08/08/24 [place] [address] Department [place] [address] Surgeon Cardiothoracic Surgery 08/08/24 Team Status: Inactive [...] April 18, 2025 End: April 18, 2025 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 Start Date End Date Daniela Fallon MD [facility] [place] [address] PCP - General Internal Medicine 08/08/24 Jeffrey Desai MD [address] [facility] [address] [facility] [place] [address] Referring Physician Interventional Cardiology 11/30/23 [place] [address] Department [place] [address] Surgeon Cardiothoracic Surgery 11/30/23 [place] [address] [place] [address] Consulting Physician Hematology and Oncology 02/09/24 [place] [place] [address] Referring Physician Case Management 08/08/24 [place] [address] [facility] Department [place] [address] Surgeon Cardiothoracic Surgery 08/08/24 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 Start Date End Date Daniela Fallon MD [address] [facility] [place] [address] PCP - General Internal Medicine 08/08/24 Jeffrey Desai MD [address] [facility] [address] [facility] [place] [address] Referring Physician Interventional Cardiology 11/30/23 [place] [address] [facility] Department [place] [address] Surgeon Cardiothoracic Surgery 11/30/23 [place] [address] [place] [address] Consulting Physician Hematology and Oncology 02/09/24 Germán [place] [address] Referring Physician Case Management 08/08/24 [place] [address] Department [place] [address] Surgeon Cardiothoracic Surgery 08/08/24 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 Start Date End Date Daniela Fallon MD [address] [facility] [place] [address] PCP - General Internal Medicine 08/08/24 Jeffrey Desai MD [address] [facility] [address] [facility] [place] [address] Referring Physician Interventional Cardiology 11/30/23 [place] [address] Department [place] [address] Surgeon Cardiothoracic Surgery 11/30/23 [place] [address] [place] [address] Consulting Physician Hematology and Oncology 02/09/24 Germán Hurst [address] [place] [address] Referring Physician Case Management 08/08/24 [place] [address] Department [place] [address] Surgeon Cardiothoracic Surgery 08/08/24 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 Start Date End Date Daniela Fallon MD [address] [facility] [place] [address] PCP - General Internal Medicine 08/08/24 Jeffrey Desai MD [address] [facility] [place] [address] Referring Physician Interventional Cardiology 11/30/23 [place] [address] Department [place] [address] Surgeon Cardiothoracic Surgery 11/30/23 [place] [address] [place] [address] Consulting Physician Hematology and Oncology 02/09/24 Germán Hurst [address] [place] [address] Referring Physician Case Management 08/08/24 [place] [address] Department [place] [address] Surgeon Cardiothoracic Surgery 08/08/24 Team Status: Active Member Role/Relationship Status Dates Dr. Daniela Fallon MD Primary care physician Activ e Team Status: Inactive Member Role/Relationship Status Dates Dr. Daniela Fallon MD Primary care physician Activ e Start: April 05, 2025 End: April 05, 2025 Dr. 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 Start Date End Date Daniela Fallon MD [address] [facility] [place] [address] PCP - General Internal Medicine 08/08/24 Jeffrey Desai MD [address] [facility] [address] [facility] [place] [address] Referring Physician Interventional Cardiology 11/30/23 [place] [address] [facility] Department [place] [address] Surgeon Cardiothoracic Surgery 11/30/23 [place] [address] [place] [address] Consulting Physician Hematology and Oncology 02/09/24 Germán Hurst [address] [place] [address] Referring Physician Case Management 08/08/24 [place] [address] Department of Surgery-Cardiac [place] 9763406 Surgeon Cardiothoracic Surgery 08/08/24 Team Status: Inactive [...] section and content) DATE CREATED AUTHOR 11/13/2022 [facility] DATE CREATED AUTHOR AUTHOR'S ORGANIZ ATION 03/21/2024 [facility] ([place] DATE CREATED AUTHOR AUTHOR'S ORGANIZ ATION 07/31/2024 [facility] DATE CREATED AUTHOR AUTHOR'S ORGANIZ ATION 08/19/2024 [facility] DATE CREATED AUTHOR AUTHOR'S ORGANIZ ATION 06/25/2025 [facility] DATE CREATED AUTHOR AUTHOR'S ORGANIZ ATION 07/22/2025 [facility] DATE CREATED AUTHOR AUTHOR'S ORGANIZ ATION 08/11/2025 [facility] DATE CREATED AUTHOR AUTHOR'S ORGANIZ ATION 08/26/2025 [facility] Scheduled Active and Recently Administ ered Medications (unrecognized section and content) Medication Order 08/07/2024 08/08/2024 08/09/2024 acetaminophen (Tylenol) tablet 650 mg 650 mg, oral, Every 6 hours, First dose (after last modification) on Wed08/04/24 at 2100, If ordered PRN for pain, nurse is permitted to administer this medication for higher pain scores based on patient preference? Yes 0351 (Given - Provider: Ghislaine Petersen RN)0920 (Given - Provider: Cyndy Chavez RN)1445 (Given - Provider: Cyndy Chavez RN)2005 (Given - Provider: Ghislaine Petersen RN) 0325 (Given - Provider: Ghislaine Petersen RN)0845 (Given - Provider: Soco Lima RN)1543 (Given - Provider: Soco Lima RN)2024 (Given - Provider: Luther Plata RN) 0103 (Given - Provider: Luther Plata RN)0900 (Given - Provider: Bharat Jaquez RN)1500 (Due)2100 (Due) aspirin chewable tablet 81 mg 81 mg, oral, Daily, First dose on Wed08/01/24 at 1500, Hold for platelets less than 50,000 0921 (Given - Provider: Cyndy Chavez RN) 0845 (Given - Provider: Soco Lima RN) 0900 (Given - Provider: Bharat Jaquez, GABRIEL) atorvastatin (Lipitor) tablet 80 mg 80 mg, oral, Nightly, First dose on Wed08/02/24 at 2100 2005 (Given - Provider: Ghislaine Petersen RN) 2024 (Given - Provider: Luther Plata RN) 2100 (Due) barium sulfate (Varibar Weed) 40 % (w/v) suspension 10 mL (COMPLETED) [...] For 1 dose 0837 (Given - Provider: Phoneix Martinez) furosemide (Lasix) tablet 20 mg 20 mg, oral, Daily, First dose on Wed08/08/24 at 1530 1543 (Given - Provider: Soco Lima RN) 0900 (Given - Provider: Bharat Jaquez, GABRIEL) heparin (porcine) injection 5,000 Units 5,000 Units, [...] 0900 (Given - Provider: Bharat Jaquez, GABRIEL) lidocaine 4 % patch 2 patch 2 patch, transdermal, Administer over 12 Hours, Daily, First dose on Wed08/05/24 at 1900, Apply to back. Patch will remain on for 12 hours, then removed for [address] patch directly over any surgical incisions or wounds. 09 (Medication Applied - Provider: Cyndy Chavez RN)2130 (Medication Removed - Provider: Ghislaine Petersen RN) 0851 (Not Given - Provider: Soco Lima RN - Reason: Patient/family refused) 0912 (Not Given - Provider: Bharat Jaquez RN - Reason: Patient/family refused) lisinopril tablet 2.5 mg 2.5 mg, oral, Daily, First dose on 08/05/24 at 0930 0921 (Given - Provider: Cyndy Chavez RN) 0844 (Given - Provider: Soco Lima RN) 0900 (Given - Provider: Bharat Jauqez RN) melatonin tablet 10 mg 10 mg, oral, Nightly, First dose (after last modification) on Wed08/04/24 at 2100 2005 (Given - Provider: Ghislaine Petersen RN) 2023 (Given - Provider: Luther Plata RN) 2099 (Due) metoprolol tartrate (Lopressor) tablet 50 mg 50 mg, oral, 2 times daily, First dose (after last modification) on 08/05/24 at 2100, Hold for HR < 50 or SBP < 100 0933 (Given - Provider: Cyndy Chavez RN)2005 (Given - Provider: Ghislaine Petersen RN) 08 (Given - Provider: Soco Lima RN)2023 (Given - Provider: Luther Plata RN) 0900 (Given - Provider: Bharat Jaquez RN)2099 (Due) [...] Reason: Patient/family refused)2036 (Not Given - Provider: Kucarlin Plata RN - Reason: Patient/family refused) 0907 (Not Given - Provider: Bharat aJquez RN - Reason: Patient/family refused)2100 (Due) sertraline [...] Wed08/07/24 at 1659, Apply to neck/ shoulders 8 (Given - Provider: Ghislaine Petersen RN) 0325 [...] preference? Yes 0448 (Given - Provider: Ghislaine Petersen, GABRIEL)1051 (Given - Provider: Cyndy Chavez, GABRIEL)1652 (Given - Provider: Cyndy Chavez, RN)2256 (Given - Provider: Ghislaine Petersen, RN) 0508 (Given - Provider: Ghislaine Petersen, GABRIEL)1123 (Not Given - Provider: Soco Lima RN - Reason: Patient/family refused)1125 (Given - Provider: Soco Lima RN)1852 (Given - Provider: Soco Lima RN) 0102 (Given - Provider: Luther Plata RN) oxygen (O2) therapy inhalation, Continuous PRN - O2/gases, other, Starting on Wed08/03/24 at 2102, Device: High Flow Nasal Cannula (HFNC), [facility] TYPE: Bubbler/LPM Flow only, Rate in liters [...] Once, On 04/30/24 at 1405, For 1 dose 1452 (Given [...] BE BASED ON THE PRIMARY CLINICAL RECORDS. [employer]. provides no warranty or guarantee of the accuracy or completeness of information in this document.
[2025-08-27] MEDS: Sotalol Hydrochloride 80 MG Tablet PO (23:56)
[2025-08-28] VITALS (7 sets, daily range): BP systolic 116–149; BP diastolic 57–65; PULSE 69–71; RESP 17–18; TEMP 35.8–36.7; O2SAT 84–98
[2025-08-28 04:08] LABS: Hematocrit 26.3 % (37-47); Hemoglobin 8.5 g/dL (12.0-15.0); Immature Granulocytes Count 0.010 X10^3/uL (0.0-0.0); Mean Corp Hgb Conc 32.3 g/dL (32-36); Mean Corpuscular Volume 102.3 fL (81-99); Mean Platelet Vol. 10.0 fl (6.2-12.0); NRBC Flagged by Analyzer 0 % (0-5); POSITIVE MORPHOLOGY YES; Platelet Count 129 K/mm3 (150-450); RBC Distribution Width CV 17.3 % (11.6-14.6); RBC Distribution Width SD 65.1 fl (35.1-43.9); Red Blood Count 2.57 M/mm3 (4.2-5.4); White Blood Count 4.2 K/mm3 (4.4-11.0)
[2025-08-28 04:10] LABS: Differential Indicated SCAN CRITERIA MET
[2025-08-28 04:30] LABS: Anisocytosis 2+; Differential Comment SCANNED
[2025-08-28 04:31] LABS: Macrocytosis 1+; Polychromasia 1+; Tear Drop Cell RARE
[2025-08-28 04:44] LABS: Anion Gap 8 (5-15); BUN 12 mg/dL (4-19); BUN/Creat Ratio 16.0 RATIO (10-20); Calcium,Total 8.0 mg/dL (7.6-11.0); Carbon Dioxide 29.0 mmol/L (21.0-32.0); Chloride 98 mmol/L (98-108); Estimated Creatinine Clearance 46.33 ml/min (50-250); Glucose 75 mg/dL (70-99); Potassium 3.6 mmol/L (3.3-5.1)
--- NOTE | 2025-08-28 05:55 | ECHOCS_ITS ---
Reason For Study : CHF Procedure This was a 2D Doppler, Color Flow transthoracic echocardiogram. Exam performed portable in patient room. Left Ventricle Normal LV size. Mild concentric left ventricular hypertrophy. Anterior and septal hypokinesis. Estimated LVEF 65%. Stage II diastolic dysfunction with elevated left atrial filling pressures. Right Ventricle Normal right ventricle. ICD or pacer leads identified within the right ventricle. Atria The left atrium is mildly enlarged. Normal right atrium. ICD or pacer leads identified within the right atrium. Mitral Valve There is Mild focal posterior mitral annular calcification. Mild (1+) mitral valve insufficiency. Tricuspid Valve Mild (1+) tricuspid valve insufficiency. Right ventricular systolic pressure estimated to be 57 mmHg. Aortic Valve Bioprosthetic aortic valve mean peak gradient 10 mmHg. Pulmonic Valve The pulmonic valve is not well visualized. Mild (1+) pulmonic valve insufficiency. Great Vessels Suspect aortic root graft. Appears tethered in place. Pericardium/Pleural Thickened pericardium. Moderate bilateral pleural effusions. Medication Diluted definity 0.5ml given slow IV push to enhance endocardial definition. MMode/2D Measurements & Calculations LVIDd: 3.8 cm IVSd: 1.2 cm LVOT diam: 1.9 cm LVIDs: 2.3 cm LVPWd: 1.2 cm RVDd: 3.6 cm FS: 38.8 % LVOT area: 2.8 cm2 Ao root diam: 2.8 cm LAV(MOD-bp): 38.8 ml LVAd ap4: 27.8 cm2 LAV(MOD-bp) Indexed: 26.9 ml/m2 LVLd ap4: 7.5 cm LAV(MOD-sp2): 38.7 ml EDV(MOD-sp4): 84.5 ml LAV(MOD-sp4): 38.5 ml EDV(sp4-el): 87.8 ml LVAs ap4: 14.0 cm2 LVLs ap4: 6.3 cm ESV(MOD-sp4): 26.5 ml ESV(sp4-el): 26.3 ml EF(MOD-sp4): 68.7 % EF(sp4-el): 70.0 % SV(MOD-sp4): 58.0 ml SV(sp4-el): 61.5 ml LA A4 area: 15.1 cm2 SI(MOD-sp4): 40.2 ml/m2 LA dimension(2D): 4.7 cm RA A4 area: 8.1 cm2 TAPSE: 1.4 cm Time Measurements MV dec time: 0.31 sec Doppler Measurements & Calculations MV E max les: 108.6 cm/sec Lat Peak E' Les: 4.8 cm/sec Med Peak E' Les: 3.5 cm/sec MV A max les: 122.2 cm/sec E/E' lat: 22.6 E/E' med: 30.9 MV E/A: 0.89 MV dec slope: 347.5 cm/sec2 Ao V2 max: 214.7 cm/sec LV V1 max: 147.2 cm/sec Ao max P.5 mmHg LV V1 max P.7 mmHg Ao V2 mean: 152.7 cm/sec LV V1 mean P.5 mmHg Ao mean P.2 mmHg LV V1 mean: 113.5 cm/sec Ao V2 VTI: 51.8 cm LV V1 VTI: 37.7 cm AV (velocity ratio): 0.73 MINDI(I,D): 2.0 cm2 MINDI(V,D): 1.9 cm2 SV(LVOT): 103.8 ml PA V2 max: 122.9 cm/sec PI end-d les: 166.2 cm/sec TR max les: 360.7 cm/sec TR max P.0 mmHg ECHO/Echo Complete W/ Contrast Interpretation Summary Mild concentric left ventricular hypertrophy. Anterior and septal hypokinesis. Estimated LVEF 65%. Stage II diastolic dysfunc tion with elevated left atrial filling pressures. The left atrium is mildly enlarged. Mild (1+) mitral valve insufficiency. Mild (1+) tricuspid valve insufficiency. Right ventricular systolic pressure estimated to be 57 mmHg. Bioprosthetic aortic valve mean peak gradient 10 mmHg. Mild (1+) pulmonic valve insufficiency. Moderate bilateral pleural effusions. The pericardium appears thickened. The base of the heart including aortic root appears tethered in place. Recommend cardiac MRI or CT for further evaluation. Ordering Physician: Sriram Lau Referring Physician: Mayra Fallon Performed By: Essie Viera, JON, RVT
[2025-08-28] MEDS: Cholecalciferol (VIT D3) 25 MCG TABLET (1,000 UNITS) 50 MCG PO (09:39)
[2025-08-28] MEDS: Calcium (Elemental) 500 MG Tablet PO ×2 (09:39→17:37)
[2025-08-28] MEDS: Sotalol Hydrochloride 80 MG Tablet PO ×2 (09:40→20:44)
[2025-08-28] MEDS: Furosemide 20 MG/2 ML VIAL IV ×2 (09:46→17:38)
[2025-08-28] MEDS: 0.9% Saline Lock 10 ML Syringe IV ×2 (09:46→17:37)
--- NOTE | 2025-08-28 11:49 | CASEMGMT ---
GABRIEL ULLOA Assessment: Face to Face with pt for initial transition planning/care coordination assessment. GABRIEL ULLOA introduced self and role at [facility], pt voices understanding and consents to assessment. Pt is A&O x4 and answers all questions appropriately at this time. Care providers, pharmacy, and demographics verified/updated. Strata: 3 Admitting Dx: Hypoxemia, Breast Cancer PCP: Leeanne Specialists: Petar, Oncology; Jayro, Cardiology Preferred Pharmacy: [facility] Insurance: [employer] Prescription Benefit: yes LNOK: Zuly, Sister; Niece, Nubia Living Arrangements: [place], [place]. She states their are 3 others that live with her. ADLs: Pt states I with ADLs and IADLs. Transportation: Pt drives self and denies concerns with transportation. DME: Walker, [employer], [employer], [employer]. Pt states she does not have O2 at home, but her friend does and she gets it through [employer]. Pt requests [employer] if she needs O2 at DC. Denies wanting a list of DME providers. HHC/SNF: Denies Hx of. Pt 6 clicks = 24. Pt states no concerns with going home at time of dc. Pt states no further concerns/needs. CM to follow. Advised pt to ask CM if any further question/concerns/needs arise, voices understanding. Pt Goal: Home Plan: Home, follow for O2 needs. Carmen RIOS CM
--- NOTE | 2025-08-28 14:06 | PN.HOSP_ITS ---
Subjective Subjective Feels like she is breathing a bit better, still on 4 L nasal cannula Objective Data Objective Data Vital Signs: Vital Signs Temp Pulse Resp BP Pulse Ox O2 Del Method O2 Flow Rate 98.0 F 71 17 149/65 H 96 Nasal Cannula 4 08/28/25 09:33 08/28/25 09:33 08/28/25 09:33 08/28/25 09:33 08/28/25 09:54 08/28/25 09:54 08/28/25 09:54 Oxygen Flow Rate (L/min) 4 Oxygen Delivery Method Nasal Cannula Weight: 112 lb 6.972 oz Body Mass Index (BMI) 22.6 Intake & Output: Intake and Output for Last 24 Hours 08/27/25 08/28/25 08/29/25 03:59 03:59 03:59 Intake Total 250 / 250 250 / 250 Balance 250 / 250 250 / 250 Lab / Micro Data 08/28/25 03:24 08/28/25 03:24 Labs: Laboratory Results - last 24 hr 08/27/25 13:49: WBC Cancelled, Corrected WBC Cancelled, RBC Cancelled, Hgb Cancelled, Hct Cancelled, MCV Cancelled, MCH Cancelled, MCHC Cancelled, RDW Std Deviation Cancelled, RDW Coeff of Margareth Cancelled, Plt Count Cancelled, MPV Cancelled, Immature Gran % (Auto) Cancelled, Neut % (Auto) Cancelled, Lymph % (Auto) Cancelled, [place] % (Auto) Cancelled, Eos % (Auto) Cancelled, Baso % (Auto) Cancelled, Absolute Neuts (auto) Cancelled, Absolute Lymphs (auto) Cancelled, Total Counted Cancelled, Neutrophils % (Manual) Cancelled, Band Neutrophils % Cancelled, Lymphocytes % (Manual) Cancelled, Monocytes % (Manual) Cancelled, Eosinophils % (Manual) Cancelled, Basophils % (Manual) Cancelled, Metamyelocytes % Cancelled, Myelocytes % Cancelled, Promyelocytes % Cancelled, Blast Cells % Cancelled, Plasma Cell % (Manual) Cancelled, Other Cells % Cancelled, Nucleated RBC % Cancelled, Nucleated RBCs/100 WBC Cancelled, Differential Comment Cancelled, Diff Path Review Cancelled, Hypersegmented Neuts Cancelled, Atypical Lymphocytes Cancelled, Reactive Lymphocytes Cancelled, Smudge Cells Cancelled, Toxic Granulation Cancelled, Toxic Vacuolation Cancelled, Dohle Bodies Cancelled, Nancy Rods Cancelled, Platelet Estimate Cancelled, Plt Morphology Comment Cancelled, RBC Morphology Cancelled 08/27/25 13:49: RBC Morphology Cancelled, Polychromasia Cancelled, Hypochromasia Cancelled, Basophilic Stippling Cancelled, Anisocytosis Cancelled, Microcytosis Cancelled, Macrocytosis Cancelled, Spherocytes Cancelled, Sickle Cells Cancelled, Target Cells Cancelled, Tear Drop Cells Cancelled, Ovalocytes Cancelled, Stomatocytes Cancelled, Tenorio-Sycamore Bodies Cancelled, Kerrick Cells Cancelled, Bite Cells Cancelled, Crenated Cell Cancelled, Acanthocytes (Spur) Cancelled, Rouleaux Cancelled, Schistocytes Cancelled, D-Dimer Quant (PE/DVT) Cancelled, Sodium 135, Potassium 4.3, Chloride 99, Carbon Dioxide 26.4, Anion Gap 10, BUN 14, Creatinine 0.76, Estim Creat Clear Calc 46.33 L, Est GFR (MDRD) Non-Af 84, BUN/Creatinine Ratio 18.5, Glucose 113 H, Calcium 8.5, Troponin T High Sens 6, NT pro BNP II 546 08/27/25 14:35: WBC 5.1, RBC 2.74 L, Hgb 9.3 L, Hct 28.1 L, MCV 102.6 H, MCH 33.9 H, MCHC 33.1, RDW Std Deviation 66.5 H, RDW Coeff of Margareth 17.5 H, Plt Count 143 L, MPV 10.1, Immature Gran % (Auto) 0.200, Neut % (Auto) 69.3, Lymph % (Auto) 19.7, [place] % (Auto) 9.0, Eos % (Auto) 1.4, Baso % (Auto) 0.4, Absolute Neuts (auto) 3.6, Absolute Lymphs (auto) 1.01, Nucleated RBC % 0, Anisocytosis 1+ 08/27/25 14:40: D-Dimer Quant (PE/DVT) 2.28 H* 08/27/25 16:01: Troponin T Hi Sens 2 Hr 9 08/27/25 18:44: Troponin T Hi Sens 4Hr 7 08/28/25 03:24: WBC 4.2 L, RBC 2.57 L, Hgb 8.5 L, Hct 26.3 L, MCV 102.3 H, MCH 33.1 H, MCHC 32.3, RDW Std Deviation 65.1 H, RDW Coeff of Margareth 17.3 H, Plt Count 129 L, MPV 10.0, Immature Gran % (Auto) 0.200, Neut % (Auto) 67.5, Lymph % (Auto) 20.0, [place] % (Auto) 10.4 H, Eos % (Auto) 1.7, Baso % (Auto) 0.2, Absolute Neuts (auto) 2.8, Absolute Lymphs (auto) 0.83, Nucleated RBC % 0, Differential Comment SCANNED, Platelet Estimate SLT DEC, Polychromasia 1+, Anisocytosis 2+, Macrocytosis 1+, Tear Drop Cells RARE, Sodium 135, Potassium 3.6, Chloride 98, Carbon Dioxide 29.0, Anion Gap 8, BUN 12, Creatinine 0.73, Estim Creat Clear Calc 46.33 L, Est GFR (MDRD) Non-Af 88, BUN/Creatinine Ratio 16.0, Glucose 75, Calcium 8.0 Micro: Microbiology 08/28/25 07:55 Mucosa - Nasopharyngeal Respiratory Panel (PCR) - Final Radiography Diagnostic Testing: Radiology Impression Chest X-Ray 08/27/25 14:03 IMPRESSION: Mild pulmonary edema. no focal consolidation. Trace right base effusion. Mild cardiomegaly. Reading Location: [facility] Chest CTA 08/27/25 17:00 IMPRESSION: No acute pulmonary emboli. Moderate pulmonary edema and moderate bibasilar pleural effusions. Bibasilar consolidations may reflect compressive atelectasis vs pneumonia. T3 and T8 vertebral body sclerotic lesions may reflect osseous metastatic disease or hematopoietic disease, increased compared to 09/24/24. Flatted to likely stable size of right breast mass measuring 3.4 x 0.8 cm with central calcification. Mediastinal lymphadenopathy. Reading Location: [facility] Echocardiogram 08/28/25 05:55 Interpretation Summary Mild concentric left ventricular hypertrophy. Anterior and septal hypokinesis. Estimated LVEF 65%. Stage II diastolic dysfunction with elevated left atrial filling pressures. The left atrium is mildly enlarged. Mild (1+) mitral valve insufficiency. Mild (1+) tricuspid valve insufficiency. Right ventricular systolic pressure estimated to be 57 mmHg. Bioprosthetic aortic valve mean peak gradient 10 mmHg. Mild (1+) pulmonic valve insufficiency. Moderate bilateral pleural effusions. The pericardium appears thickened. The base of the heart including aortic root graft appears tethered in place. Recommend cardiac MRI for further evaluation. Ordering Physician: Sriram Lau Referring Physician: Mayra Fallon Performed By: Essie Viera, RDDIANA, RVT Physical Exam Narrative General: Alert, Oriented x3, Cooperative, No apparent distress HEENT: Atraumatic, PERRLA, EOMI, Normocephalic Oral: Moist Mucosa Neck: Supple, No JVD Lungs: Diminished, Normal air movement, No rhonchi, No wheeze, No rales Cardiovascular: Regular rate, Regular Rhythm, Normal S1, Normal S2, No murmurs Abdomen: Soft, Non Tender, Non-Distended, No Hepato-splenomegaly Extremities: No edema, Capillary Refill Less than 3 Seconds Skin: No rashes, No breakdown Musculoskeletal: No Tenderness to Palpation of Joints or Extremities Neurological: No focal neurological deficits, moves all extremities Psych/Mental Status: Normal Affect, Appropriate Assessment & Plan Assessment/Plan (1) Hypoxemia: (2) Fatigue: QUALIFIERS: Fatigue type: unspecified Qualified Code(s): R53.83 - Other fatigue PLAN: Plan 1. Acute hypoxic respiratory sufficiency secondary to acute on chronic diastolic CHF with mild to moderate pulmonary hypertension/essential HTN/HLD ? Resume her home blood pressure medications ? Echocardiogram with an EF of 65% and stage II diastolic dysfunction ? Her RVSP is 57 mmHg consistent with mild to moderate pulmonary hypertension ? Continue with diuretics ? Given her diastolic heart failure may benefit from Jardiance 2. GERD ? Stable ? Continue with PPI 3. Anxiety/depression ? Stable ? Continue with her home medications 4. Breast cancer ? She is chemotherapy every 2 weeks and she follows with oncology at ? Continue outpatient follow-up DVT: Francis Charges/Coding Visit Charges Inpatient E&M: 79991 Subs Hosp L2
[2025-08-29] VITALS (14 sets, daily range): BP systolic 68–124; BP diastolic 33–64; PULSE 59–68; RESP 16–18; TEMP 36.2–36.8; O2SAT 92–99
[2025-08-29 05:48] LABS: Hematocrit 28.1 % (37-47); Hemoglobin 9.2 g/dL (12.0-15.0); Immature Granulocytes Count 0.020 X10^3/uL (0.0-0.0); Mean Corp Hgb Conc 32.7 g/dL (32-36); Mean Corpuscular Volume 103.3 fL (81-99); Mean Platelet Vol. 9.9 fl (6.2-12.0); NRBC Flagged by Analyzer 0 % (0-5); Platelet Count 128 K/mm3 (150-450); RBC Distribution Width CV 17.1 % (11.6-14.6); RBC Distribution Width SD 64.5 fl (35.1-43.9); Red Blood Count 2.72 M/mm3 (4.2-5.4); White Blood Count 4.1 K/mm3 (4.4-11.0)
[2025-08-29 06:48] LABS: Anion Gap 9 (5-15); BUN 19 mg/dL (4-19); BUN/Creat Ratio 21.7 RATIO (10-20); Calcium,Total 8.2 mg/dL (7.6-11.0); Carbon Dioxide 32.9 mmol/L (21.0-32.0); Chloride 95 mmol/L (98-108); Estimated Creatinine Clearance 42.12 ml/min (50-250); Glucose 82 mg/dL (70-99); Potassium 3.8 mmol/L (3.3-5.1)
[2025-08-29 07:46] LABS: LDH 295 U/L (84-246)
--- NOTE | 2025-08-29 08:54 | PN.HOSP_ITS ---
Subjective Subjective Doing well, no issues overnight. Maintaining her oxygen saturations on 4 L nasal cannula. Plan for thoracentesis today Objective Data Objective Data Vital Signs: Vital Signs Temp Pulse Resp BP Pulse Ox O2 Del Method O2 Flow Rate 97.7 F L 66 18 115/59 L 95 Nasal Cannula 4 08/29/25 08:20 08/29/25 08:20 08/29/25 08:20 08/29/25 08:20 08/29/25 08:20 08/29/25 08:45 08/29/25 08:45 Oxygen Flow Rate (L/min) 4 Oxygen Delivery Method Nasal Cannula Weight: 112 lb 6.972 oz Body Mass Index (BMI) 22.6 Intake & Output: Intake and Output for Last 24 Hours 08/28/25 08/29/25 08/30/25 03:59 03:59 03:59 Intake Total 250 / 250 1250 / 1250 300 / 300 Output Total 1850 / 1850 Balance 250 / 250 -600 / -600 300 / 300 Lab / Micro Data 08/29/25 05:22 08/29/25 05:22 Labs: Laboratory Results - last 24 hr 08/29/25 05:22: WBC 4.1 L, RBC 2.72 L, Hgb 9.2 L, Hct 28.1 L, MCV 103.3 H, MCH 33.8 H, MCHC 32.7, RDW Std Deviation 64.5 H, RDW Coeff of Margareth 17.1 H, Plt Count 128 L, MPV 9.9, Immature Gran % (Auto) 0.500, Neut % (Auto) 65.2, Lymph % (Auto) 22.1, [place] % (Auto) 10.3 H, Eos % (Auto) 1.7, Baso % (Auto) 0.2, Absolute Neuts (auto) 2.7, Absolute Lymphs (auto) 0.90, Nucleated RBC % 0, Sodium 137, Potassium 3.8, Chloride 95 L, Carbon Dioxide 32.9 H, Anion Gap 9, BUN 19, Creatinine 0.88, Estim Creat Clear Calc 42.12 L, Est GFR (MDRD) Non-Af 71, B UN/Creatinine Ratio 21.7 H, Glucose 82, Calcium 8.2, Lactate Dehydrogenase 295 H , Total Protein 5.6 L Micro: Microbiology 08/28/25 07:55 Mucosa - Nasopharyngeal Respiratory Panel (PCR) - Final Radiography Diagnostic Testing: Radiology Impression Echocardiogram 08/28/25 05:55 Interpretation Summary Mild concentric left ventricular hypertrophy. Anterior and septal hypokinesis. Estimated LVEF 65%. Stage II diastolic dysfunction with elevated left atrial filling pressures. The left atrium is mildly enlarged. Mild (1+) mitral valve insufficiency. Mild (1+) tricuspid valve insufficiency. Right ventricular systolic pressure estimated to be 57 mmHg. Bioprosthetic aortic valve mean peak gradient 10 mmHg. Mild (1+) pulmonic valve insufficiency. Moderate bilateral pleural effusions. The pericardium appears thickened. The base of the heart including aortic root appears tethered in place. Recommend cardiac MRI or CT for further evaluation. Ordering Physician: Sriram Lau Referring Physician: Mayra Fallon Performed By: Essie Viera, RDCS, RVT Physical Exam Narrative General: Alert, Oriented x3, Cooperative, No apparent distress HEENT: Atraumatic, PERRLA, EOMI, Normocephalic Oral: Moist Mucosa Neck: Supple, No JVD Lungs: Diminished, Normal air movement, No rhonchi, No wheeze, No rales Cardiovascular: Regular rate, Regular Rhythm, Normal S1, Normal S2, No murmurs Abdomen: Soft, Non Tender, Non-Distended, No Hepato-splenomegaly Extremities: No edema, Capillary Refill Less than 3 Seconds Skin: No rashes, No breakdown Musculoskeletal: No Tenderness to Palpation of Joints or Extremities Neurological: No focal neurological deficits, moves all extremities Psych/Mental Status: Normal Affect, Appropriate Assessment & Plan Assessment/Plan (1) Hypoxemia: (2) Fatigue: QUALIFIERS: Fatigue type: unspecified Qualified Code(s): R53.83 - Other fatigue PLAN: Plan 1. Acute hypoxic respiratory sufficiency secondary to acute on chronic diastolic CHF with mild to moderate pulmonary hypertension and moderate bilateral pleural effusions/essential HTN/HLD ? Resume her home blood pressure medications ? Echocardiogram with an EF of 65% and stage II diastolic dysfunction ? Her RVSP is 57 mmHg consistent with mild to moderate pulmonary hypertension ? Continue with diuretics ? Given her diastolic heart failure may benefit from Jardiance ? Given the fact that she is still on 4 L nasal cannula will obtain thoracentesis today and send fluids for lab work 2. GERD ? Stable ? Continue with PPI 3. Anxiety/depression ? Stable ? Continue with her home medications 4. Breast cancer ? She is chemotherapy every 2 weeks and she follows with oncology at ? Continue outpatient follow-up DVT: Lovenox Charges/Coding Visit Charges Inpatient E&M: 47544 Subs Hosp L2
[2025-08-29 10:00] LABS: Partial Thromboplast Time 30.5 Seconds (24.1-36.2); Prothrombin Time (Protime)PT. 14.3 SECONDS (11.7-14.9)
[2025-08-29] MEDS: Calcium (Elemental) 500 MG Tablet PO ×2 (10:23→17:16)
[2025-08-29] MEDS: Sotalol Hydrochloride 80 MG Tablet PO ×2 (10:25→22:10)
[2025-08-29] MEDS: Furosemide 20 MG/2 ML VIAL IV ×2 (10:26→17:17)
[2025-08-29] MEDS: Cholecalciferol (VIT D3) 25 MCG TABLET (1,000 UNITS) 50 MCG PO (10:27)
[2025-08-29] MEDS: 0.9% Saline Lock 10 ML Syringe IV ×2 (10:41→17:17)
[2025-08-29] MEDS: Lidocaine 2% (20 ml mdv) 20 ML Vial INFILT (13:52)
--- NOTE | 2025-08-29 13:55 | FLU_PTH ---
PATIENT: ZORA MATUTE LOC: [facility] U#:[id number] AGE/SX: 70/F ROOM: [facility] RE08/27/[address]: Dr. Fortino Odell MD : [id number] BED: 1 DIS: 08/30/2025 SPEC #: [id number] RECD: 08/29/25 14:06 STATUS: [facility] REQ #: [id number] LOGAN: 08/29/25 13:[address]: Fortino Odell DEPT: CYTOLOGY RECD BY: Giovanny Wilson ENTERED: 08/30/25 08:28 SP TYPE: Fluid OTHR DR: MD Dr. Sriram Alas MD Tissues: A - Pleural fluid, NOS Procedures: Special Stain Group II Surgery Specimen Level IV Cytospin Fluid HEADER OPERATION: Ultrasound guided thoracentesis - right PRE-OP DIAGNOSIS: Hypoxemia TISSUE SUBMITTED: A- Thoracentesis fluid for cytology CYTOLOGY GROSS A. Received is 85 ml of cloudy-arminda fluid labeled with the patient's name and and designated per the requisition as Thoracentesis fluid. Submitted for cytology and cell block preparation. Mr 08/30/2025 CPT: 94243,07539
--- NOTE | 2025-08-29 14:03 | RAD_ITS ---
PROCEDURE: CHEST INSP/EXP 2 VIEW 08/29/2025 REASON FOR EXAM: POST THORACENTESIS TECHNIQUE: Procedure Code: RADCXRINSPEXP Modality: DX Procedure: CHEST INSP/EXP 2 VIEW AP inspiration expiration views. COMPARISON: August 27, 2025. FINDINGS: The patient is status post right thoracentesis. No evidence of pneumothorax. Minimal residual right pleural-parenchymal changes. RAD/Chest Insp/Exp 2 View IMPRESSION: No evidence of pneumothorax following the right thoracentesis. Reading Location: [place] [address]
[2025-08-29 14:45] LABS: Body Fluid Mononuclear WBC # 0.162 10^3/uL; Body Fluid Mononuclear WBC % 85.3 %; Body Fluid Polynuclear WBC # 0.028 10^3/uL; Body Fluid Polynuclear WBC % 14.7 %; Red Cell Count/Body Fluid 0.004 10^6/ul; White Blood Count/Body Fluid 0.190 10^3/uL
[2025-08-29 15:49] LABS: Glucose, Body Fluid 99 mg/dL (Not Establ.)
[2025-08-29 16:38] LABS: Appearance/Body Fluid SL CLDY; Auto B Fluid Analyzer BKGD Ct COUNTS W/IN LIMITS (W/IN LIMITS); Color/Body Fluid YELLOW; Source- Body Fluid THORACENTESIS
[2025-08-29 16:41] LABS: Neutrophil (Segs) 9 %
[2025-08-29 16:48] LABS: Body Fluid QC Type(s) BF1Q
[2025-08-30] VITALS (10 sets, daily range): BP systolic 90–126; BP diastolic 37–64; PULSE 60–68; RESP 16–18; TEMP 36.5; O2SAT 88–99
[2025-08-30 05:34] LABS: Anion Gap 7 (5-15); BUN 22 mg/dL (4-19); BUN/Creat Ratio 25.1 RATIO (10-20); Calcium,Total 8.1 mg/dL (7.6-11.0); Carbon Dioxide 32.7 mmol/L (21.0-32.0); Chloride 94 mmol/L (98-108); Estimated Creatinine Clearance 41.64 ml/min (50-250); Glucose 86 mg/dL (70-99); Potassium 3.6 mmol/L (3.3-5.1)
[2025-08-30 08:49] LABS: Pathologist Comment/Body Fluid Reviewed
--- NOTE | 2025-08-30 09:12 | US_ITS ---
PROCEDURE: THORACENTESIS W US 08/30/2025 REASON FOR EXAM: LEFT PLEURAL EFFUSION TECHNIQUE: THORACENTESIS W US. The procedure as well as the benefits and possible complications including infection, bleeding and pneumothorax were explained to the patient. Informed consent was obtained. The overlying skin was prepped and draped in the usual sterile fashion. Following local anesthetic application and under direct sonographic guidance, a 5 [place] drainage catheter was placed into the left pleural cavity. 350 mL of dark arminda colored fluid was aspirated. The patient tolerated the procedure well. COMPARISON: Prior study dated August 29, 2025. FINDINGS: Successful left ultrasound-guided thoracentesis. US/Thoracentesis W US IMPRESSION: Successful left ultrasound-guided thoracentesis with removal of 350 cc of dark arminda colored fluid. The patient tolerated the procedure well. No immediate complication noted. Reading Location: [place] [address]
[2025-08-30] MEDS: Sotalol Hydrochloride 80 MG Tablet PO (09:57)
[2025-08-30] MEDS: Cholecalciferol (VIT D3) 25 MCG TABLET (1,000 UNITS) 50 MCG PO (09:58)
[2025-08-30] MEDS: Furosemide 20 MG/2 ML VIAL IV (09:58)
[2025-08-30] MEDS: Calcium (Elemental) 500 MG Tablet PO (09:58)
[2025-08-30] MEDS: 0.9% Saline Lock 10 ML Syringe IV (09:59)
[2025-08-30] MEDS: Lidocaine 2% (20 ml mdv) 20 ML Vial INFILT (11:02)
--- NOTE | 2025-08-30 11:27 | RAD_ITS ---
PROCEDURE: CHEST INSP/EXP 2 VIEW 08/30/2025 REASON FOR EXAM: POST THORACENTESIS TECHNIQUE: Procedure Code: RADCXRINSPEXP Modality: DX Procedure: CHEST INSP/EXP 2 VIEW Inspiration expiration views were obtained following the left thoracentesis. COMPARISON: August 29, 2025. FINDINGS: No evidence of pneumothorax following the left thoracentesis. RAD/Chest Insp/Exp 2 View IMPRESSION: No evidence of pneumothorax following the left thoracentesis. Reading Location: [place] [address]
--- NOTE | 2025-08-30 14:33 | DCINST_ITS ---
Discharge Instructions DC O2, CPAP, BIPAP needs Home O2 Discharge instructions: No Dressing / Incision Discharge Activity: Return to Normal Activity Dressing / Incision Call your doctor if you observe: Fever of 101 or Higher, Shortness of breath, Dizziness, Fainting spells, Swelling in the ankles, Chest pain and Increased palpitations (irregular heartbeat) Follow Up Care Test Results: Test results from this visit will be discussed in further detail at your follow- up appointment, if applicable. Discharge Plan Admission Admit Date/Time: 08/27/25 20:23 Attending Provider: Fortino Odell Primary Care Provider: Mayra Fallon Consulting Providers: Sriram Lau Instructions Patient Instructions: ASTRID RN Thoracentesis Dc Discharge Orders/Prescriptions Prescriptions: New Jardiance 10 mg Tablet 10 mg PO DAILY 30 Days Qty: 30 0RF furosemide [Lasix] 40 mg tablet 40 mg PO DAILY Qty: 30 0RF Continued aspirin 81 mg tablet,chewable 81 mg PO DAILY melatonin 10 mg capsule 10 mg PO HS PRN (Reason: sleep) calcium carbonate 600 mg calcium (1,500 mg) tablet 600 mg PO BID nitroglycerin 0.4 mg tablet, sublingual See Rx Instructions .ROUTE .COMPLEX Qty: 75 1RF Dose Instruction: DISSOLVE 1 TABLET UNDER TONGUE EVERY 5 MINUTES NEEDED FOR CHEST PAIN Rx Instructions: DISSOLVE 1 TABLET UNDER TONGUE EVERY 5 MINUTES NEEDED FOR CHEST PAIN (DME) handicap placard See Rx Instructions .Route .MEDSUPPLY Qty: 1 0RF Rx Instructions: placard for one year cholecalciferol (vitamin D3) [Vitamin D3] 50 mcg (2,000 unit) capsule 50 mcg PO DAILY sotalol [Betapace] 80 mg tablet 80 mg PO BID cyclobenzaprine 10 mg tablet 10 mg PO Q12H PRN PRN (Reason: muscle spasm) lisinopril 5 mg tablet 5 mg PO DAILY pantoprazole 40 mg tablet,delayed release (DR/EC) 40 mg PO DAILY sertraline 100 mg tablet 100 mg PO QDAY Qty: 90 1RF amlodipine 10 mg tablet 10 mg PO QDAY Qty: 90 1RF rosuvastatin 20 mg tablet 20 mg PO DAILY Qty: 90 1RF Rx Instructions: TAKE 1 TABLET BY MOUTH ONCE DAILY (DME) Handicap Placard See Rx Instructions .ROUTE .MEDSUPPLY Qty: 1 0RF Rx Instructions: As directed, length of time 10 years trazodone 100 mg tablet 100 mg PO QHS PRN (Reason: insomnia) Qty: 90 1RF Referrals / Follow Up: Chip Woo DO [Med Staff - Active Staff, Pulmonary Medicine] - Within 2 Weeks Mayra Fallon MD [Primary Care Provider, Internal Medicine] - Within 1 Week Disposition Disposition (needs filled in before D/C Order can be placed): Home, Self Care
--- NOTE | 2025-08-30 15:49 | CASEMGMT ---
Patient has order for discharge. Patient qualifies for home oxygen, script received. GABRIEL ULLOA sent referral to [facility] via [facility] and arranged for tank to be delivered to patient's room. GABRIEL CM in to discuss needs at discharge. RN LAILA updated patient regarding home oxygen setup. Patient denies needs or help at discharge. Patient had no further questions or concerns.
--- NOTE | 2025-08-30 16:02 | PHA.DC_ITS ---
Pharmacy [facility] has performed discharge medication counseling for this patient. The patient was counseled on the following discharge medications and changes in medications for homegoing review. - Furosemide 40 mg tablet, Jardiance 10 mg tablet The Reason for Use, instructions for use, and potential side effects were reviewed for all new medications. The patient's questions regarding all of their medications were answered. The patient was able to verbally demonstrate an understanding of their discharge medications. Medications at Discharge Home Medications aspirin 81 mg chewable tablet 81 mg PO DAILY 11/23/17 melatonin 10 mg capsule 10 mg PO HS PRN sleep 11/23/17 calcium carbonate 600 mg PO BID 06/30/18 nitroglycerin 0.4 mg sublingual tablet See Rx Instructions .Route .COMPLEX #75 tabs 05/11/24 handicap placard #1 ea 09/01/24 cholecalciferol (vitamin D3) 50 mcg (2,000 unit) capsule (Vitamin D3) 50 mcg PO DAILY 12/08/24 sotalol 80 mg tablet (Betapace) 80 mg PO BID high BP 12/08/24 sertraline 100 mg tablet 100 mg PO QDAY #90 tabs 04/30/25 amlodipine 10 mg tablet 10 mg PO QDAY #90 tabs 05/07/25 rosuvastatin 20 mg tablet 20 mg PO DAILY #90 tabs 05/07/25 Handicap Placard #1 ea 07/13/25 trazodone 100 mg tablet 100 mg PO QHS PRN insomnia #90 tabs 07/30/25 cyclobenzaprine 10 mg tablet 10 mg PO Q12H PRN PRN muscle spasm 08/27/25 lisinopril 5 mg tablet 5 mg PO DAILY 08/27/25 pantoprazole 40 mg tablet,delayed release 40 mg PO DAILY 08/27/25 empagliflozin 10 mg tablet (Jardiance) 10 mg PO DAILY 30 days #30 tabs 08/30/25 furosemide 40 mg tablet (Lasix) 40 mg PO DAILY #30 tabs 08/30/25
--- NOTE | 2025-08-30 16:16 | DS.PCM_ITS ---
Providers Date of Admission: 08/27/25 Primary Care Physician: Dr. Mayra Fallon MD Reason For Visit: HYPOXEMIA, BREAST CANCER Diagnosis Discharge Diagnosis (1) Hypoxemia: Status: Acute Code(s): R09.02 - Hypoxemia (2) Fatigue: Status: Acute Code(s): R53.83 - Other fatigue Qualifiers: Fatigue type: unspecified Qualified Code(s): R53.83 - Other fatigue Medications at Discharge Home Medications aspirin 81 mg chewable tablet 81 mg PO DAILY 11/23/17 melatonin 10 mg capsule 10 mg PO HS PRN sleep 11/23/17 calcium carbonate 600 mg PO BID 06/30/18 nitroglycerin 0.4 mg sublingual tablet See Rx Instructions .Route .COMPLEX #75 tabs 05/11/24 handicap placard #1 ea 09/01/24 cholecalciferol (vitamin D3) 50 mcg (2,000 unit) capsule (Vitamin D3) 50 mcg PO DAILY 12/08/24 sotalol 80 mg tablet (Betapace) 80 mg PO BID high BP 12/08/24 sertraline 100 mg tablet 100 mg PO QDAY #90 tabs 04/30/25 amlodipine 10 mg tablet 10 mg PO QDAY #90 tabs 05/07/25 rosuvastatin 20 mg tablet 20 mg PO DAILY #90 tabs 05/07/25 Handicap Placard #1 ea 07/13/25 trazodone 100 mg tablet 100 mg PO QHS PRN insomnia #90 tabs 07/30/25 cyclobenzaprine 10 mg tablet 10 mg PO Q12H PRN PRN muscle spasm 08/27/25 lisinopril 5 mg tablet 5 mg PO DAILY 08/27/25 pantoprazole 40 mg tablet,delayed release 40 mg PO DAILY 08/27/25 empagliflozin 10 mg tablet (Jardiance) 10 mg PO DAILY 30 days #30 tabs 08/30/25 furosemide 40 mg tablet (Lasix) 40 mg PO DAILY #30 tabs 08/30/25 Hospital Course Operations None Procedures 2-D Echocardiogram and Thoracentesis Summary of Care Provided Minutes Spent on Discharge: 36 Hospital Course: Per HPI: ZORA MATUTE, is a 70 F who presents to the emergency room with chief complaint of shortness of breath that began last evening. Patient has significant past medical history of breast cancer and history of CABG with history of coronary artery disease. Patient is being treated for her metastatic breast cancer and her last chemotherapy was 2 weeks ago. She also has a history of atrial fibrillation and is not currently being anticoagulated. Patient was hypoxic on room air with an oxygen saturation in the 60s and is currently satting in the low to mid 90s at 3 L of nasal cannula. Laboratory studies reveal sodium 135 potassium 4.3, chloride 99, bicarb 26.4, BUN 14, creatinine 0.76, glucose 113, white blood cell count 5.1, hemoglobin 9.3, hematocrit 28.1, platelets 143, D-dimer 2.28 and BN TP 546, troponin 9, 7. CT angiogram of chest is negative for PE but shows bilateral pleural effusions. Right breast mass persists at 3.4 cm x 0.8 cm along with T3 and T8 sclerotic lesions that are possibly metastatic disease. Patient now denies any chest pain and is resting comfortably but requiring oxygen to maintain her saturation greater than 90% and therefore will be admitted for further management of her hypoxia. Hospital Course: 1. Acute hypoxic respiratory insufficiency secondary to acute on chronic diastolic CHF with mild to moderate pulmonary hypertension and moderate bilateral pleural effusion/essential HTN/HLD?70-year-old female with a history of metastatic breast cancer who received her last dose of chemotherapy 2 weeks prior to admission presented to the hospital with increasing shortness of breath. She had bilateral pleural effusions and she had bilateral thoracentesis the first 1 was done on 08/29/2025 with approximately 700 cc removed and she had a the left thoracentesis done today on the day of discharge with 350 cc removed. Studies demonstrate an exudative effusion and cytology has been ordered. Some of the fluid studies can be a little bit altered secondary to the fact that she has been on Lasix prior to getting the thoracentesis however given her metastatic breast cancer history I do feel like it is warranted to proceed with a cytology. In the meantime we will continue with Lasix and Jardiance as her echocardiogram on this admission demonstrated an EF of 65% and stage II diastolic function with an RVSP of 57 mmHg consistent with moderate pulmonary hypertension. She did require 2 L with ambulation and at rest, I have reviewed the oxygen testing, and this patient qualifies for the home equipment and portability. The patient is mobile in the home and the community. And I do recommend she follow-up with pulmonology as an outpatient for further evaluation of her oxygen needs. She requested to be discharged today and she expressed understanding of the risks and benefits of going home and would like to go home today. I do recommend that she follow-up with her PCP in 3 to 5 days for further outpatient evaluation and monitoring. 2. Metastatic breast cancer, anxiety, depression, GERD are all chronic medical conditions which complicate her care. Her home medications were continued where appropriate Physical Exam Narrative General: Alert, Oriented x3, Cooperative, No apparent distress HEENT: Atraumatic, PERRLA, EOMI, Normocephalic Oral: Moist Mucosa Neck: Supple, No JVD Lungs: Diminished, Normal air movement, No rhonchi, No wheeze, No rales Cardiovascular: Regular rate, Regular Rhythm, Normal S1, Normal S2, No murmurs Abdomen: Soft, Non Tender, Non-Distended, No Hepato-splenomegaly Extremities: No edema, Capillary Refill Less than 3 Seconds Skin: No rashes, No breakdown Musculoskeletal: No Tenderness to Palpation of Joints or Extremities Neurological: No focal neurological deficits, moves all extremities Psych/Mental Status: Normal Affect, Appropriate Weight / BMI Weight Weight: 112 lb 6.972 oz Body Mass Index (BMI) 22.6 ABG / Lab / Microbiology Data 08/29/25 05:22 08/30/25 04:09 Laboratory: Laboratory Results - last 24 hr 08/29/25 13:55: Fluid Source THORACENTESIS, Fluid Color YELLOW, Fluid Appearance SL CLDY, Fluid WBC 0.190, Fluid RBC 0.004, Fluid Tot Cell Count 0.288 H, Fld Polynuclear WBCs # 0.028, Fld Polynuclear WBCs % 14.7, Fluid Mononuclear WBCs 0.162, Fld Mononuclear WBCs % 85.3, Fluid Neutrophils 9, Fluid Lymphocytes 28, Fluid Monocytes 8, Fluid Macrophages 50, Fld Mesothelial Cells 5, Fl Pathologist Comment Reviewed, Fluid Comment 2 SEE COMMENT 08/30/25 04:09: Sodium 134, Potassium 3.6, Chloride 94 L, Carbon Dioxide 32.7 H, Anion Gap 7, BUN 22 H, Creatinine 0.89, Estim Creat Clear Calc 41.64 L, Est GFR (MDRD) Non-Af 69, BUN/Creatinine Ratio 25.1 H, Glucose 86, Calcium 8.1 Microbiology: Microbiology 08/27/25 14:19 Blood Culture (Wb) - Port Blood Culture - Preliminary No growth in 48 hours. 08/27/25 14:01 Blood Culture (Wb) - Port Blood Culture - Preliminary No growth in 48 hours. 08/28/25 07:55 Mucosa - Nasopharyngeal Respiratory Panel (PCR) - Final Radiography Diagnostic Testing: Radiology Impression Thoracentesis Ultrasound 08/30/25 09:12 IMPRESSION: Successful left ultrasound-guided thoracentesis with removal of 350 cc of dark arminda colored fluid. The patient tolerated the procedure well. No immediate complication noted. Reading Location: [facility]-1 Chest X-Ray 08/30/25 11:27 IMPRESSION: No evidence of pneumothorax following the left thoracentesis. Reading Location: [facility]-IR-1 D/C Instructions Call your doctor if you observe: Fever of 101 or Higher, Shortness of breath, Dizziness, Fainting spells, Swelling in the ankles, Chest pain and Increased palpitations (irregular heartbeat) DC O2, CPAP, BIPAP Needs Home O2 Discharge instructions: No Meaningful Use Info Meaningful Use Meaningful Use Diagnoses (Choose all that apply): None applicable Discharge Plan Admission Admit Date/Time: 08/27/25 20:23 Attending Provider: Fortino Odell Primary Care Provider: Mayra Fallon Consulting Providers: Sriram Lau Instructions Patient Instructions: ASTRID RN Thoracentesis Dc Discharge Orders/Prescriptions Prescriptions: New Jardiance 10 mg Tablet 10 mg PO DAILY 30 Days Qty: 30 0RF furosemide [Lasix] 40 mg tablet 40 mg PO DAILY Qty: 30 0RF Continued aspirin 81 mg tablet,chewable 81 mg PO DAILY melatonin 10 mg capsule 10 mg PO HS PRN (Reason: sleep) calcium carbonate 600 mg calcium (1,500 mg) tablet 600 mg PO BID nitroglycerin 0.4 mg tablet, sublingual See Rx Instructions .ROUTE .COMPLEX Qty: 75 1RF Dose Instruction: DISSOLVE 1 TABLET UNDER TONGUE EVERY 5 MINUTES NEEDED FOR CHEST PAIN Rx Instructions: DISSOLVE 1 TABLET UNDER TONGUE EVERY 5 MINUTES NEEDED FOR CHEST PAIN (DME) handicap placard See Rx Instructions .Route .MEDSUPPLY Qty: 1 0RF Rx Instructions: monica for one year cholecalciferol (vitamin D3) [Vitamin D3] 50 mcg (2,000 unit) capsule 50 mcg PO DAILY sotalol [Betapace] 80 mg tablet 80 mg PO BID cyclobenzaprine 10 mg tablet 10 mg PO Q12H PRN PRN (Reason: muscle spasm) lisinopril 5 mg tablet 5 mg PO DAILY pantoprazole 40 mg tablet,delayed release (DR/EC) 40 mg PO DAILY sertraline 100 mg tablet 100 mg PO QDAY Qty: 90 1RF amlodipine 10 mg tablet 10 mg PO QDAY Qty: 90 1RF rosuvastatin 20 mg tablet 20 mg PO DAILY Qty: 90 1RF Rx Instructions: TAKE 1 TABLET BY MOUTH ONCE DAILY (DME) Handicap Monica See Rx Instructions .ROUTE .MEDSUPPLY Qty: 1 0RF Rx Instructions: As directed, length of time 10 years trazodone 100 mg tablet 100 mg PO QHS PRN (Reason: insomnia) Qty: 90 1RF Referrals / Follow Up: Chip Woo DO [Med Staff - Active Staff, Pulmonary Medicine] - Within 2 Weeks Mayra Fallon MD [Primary Care Provider, Internal Medicine] - Within 1 Week Disposition Disposition (needs filled in before D/C Order can be placed): Home, Self Care Charges/Coding Visit Charges Inpatient E&M: 73279 Disch Hosp >30min
== END 2025-08-30 18:06 | disposition home or self-care (01) | DRG 291 ==
LOC: ED 14:50 → PCU 20:34
PROVIDERS: Radiology Diagnostic Radiology; Admitting Provider Family Medicine; Emergency Provider Emergency Medicine; PCP Internal Medicine; Visit Provider Family Medicine
DX: I11.0 Hypertensive heart disease with heart failure (principal); I50.33 Acute on chronic diastolic (congestive) heart failure; J90 Pleural effusion, not elsewhere classified; I27.20 Pulmonary hypertension, unspecified; C50.919 Malignant neoplasm of unspecified site of unspecified female breast; I48.91 Unspecified atrial fibrillation; K21.9 Gastro-esophageal reflux disease without esophagitis; E78.5 Hyperlipidemia, unspecified; I25.10 Atherosclerotic heart disease of native coronary artery without angina pectoris; I25.2 Old myocardial infarction; F41.8 Other specified anxiety disorders; R09.02 Hypoxemia; Z87.891 Personal history of nicotine dependence; Z90.710 Acquired absence of both cervix and uterus; R53.83 Other fatigue; Z79.82 Long term (current) use of aspirin; Z95.1 Presence of aortocoronary bypass graft; Z79.899 Other long term (current) drug therapy; Z95.810 Presence of automatic (implantable) cardiac defibrillator; Z86.73 Personal history of transient ischemic attack (TIA), and cerebral infarction without residual deficits; Z95.0 Presence of cardiac pacemaker
CPT/HCPCS: 32555; 36415; 71045; 71046; 71275; 80048; 82945; 83615; 83880; 84155; 84157; 84484; 85025; 85379; 85610; 85730; 87040; 87633; 88108; 88305; 88313; 89050; 93005; 93306; 94640; 99284; Q9957; Q9967; A4216; C8929; J1938